=== PATIENT | female | born 1980 | race Caucasian/White ===

== ENCOUNTER → 2019-05-21 11:09 | Outpatient (CLI) | payer OTHER, SELFPAY ==
--- NOTE | ~2019-05-21 | XR_ITS ---
EXAMINATION: XR foot RT min 3V DATE: 05/21/2019 11:25 INDICATION: Open wound at the lateral right forefoot in the region of the fourth and fifth toes TECHNIQUE: Dorsoplantar, two oblique and lateral views of the right foot were obtained. COMPARISON: None. FINDINGS: Alignment is normal. No fracture. Joint spaces are normal. No cortical erosions or periosteal reactio n. Soft tissue swelling about the fifth toe. No soft tissue gas or radiopaque foreign bodies identifi ed. IMPRESSION: 1. No osseous abnormality or radiopaque foreign body. Reviewed, dictated and finalized at location A. ESSMAKER APPRENTICE
== END ==
PROVIDERS: PCP Nurse Practitioner Family; Visit Provider Nurse Practitioner Family
DX: S91.301A Unspecified open wound, right foot, initial encounter (principal); X58.XXXA Exposure to other specified factors, initial encounter
CPT/HCPCS: 73630

== ENCOUNTER 2019-12-05 17:47 | Emergency (ER) | payer OTHER, SELFPAY ==
--- NOTE | ~2019-12-05 | XR_ITS ---
EXAMINATION: XR foot RT min 3V DATE: 12/05/2019 20:21 INDICATION: Right foot wound. TECHNIQUE: 4 views of right foot were obtained. COMPARISON: Right foot radiographs 05/21/2019 FINDINGS: Bone alignment is normal. No fracture. There is mild osteoarthritis of first metatarsophala ngeal joint. There is soft tissue gas in the fifth digit. IMPRESSION: 1. No evidence of osteomyelitis. 2. Soft tissue gas in the fifth digit. Reviewed, dictated and finalized at location A.
[2019-12-05 18:56] VITALS: BP 125/76; PULSE 90; RESP 16; TEMP 37.2; O2SAT 99
[2019-12-05 19:44] VITALS: BP 113/69; PULSE 87; RESP 16; TEMP 36.9; O2SAT 99
--- NOTE | 2019-12-05 19:58 | ED.EXTPRO ---
HPI - Extremity Problem General Chief complaint: Extremity Problem,Nontraumatic Stated complaint: rt foot infection per pt Time Seen by Provider: 12/05/19 19:51 Source: patient Mode of arrival: ambulatory Limitations: no limitations History of Present Illness HPI Narrative: This patient is a 39 year old female who presents for evaluation of a right toe wound. Patidavid reports she developed a wound in the web between 4th and 5th toe. This wound has been present for 1 month. She states she is being evaluated at [place] [facility]. She has been performing daily dressing changes . Her wound has not improved. She denies fever, chills, nausea, vomiting or drainage. Related Data Home Medications Medication Instructions Recorded Confirmed albuterol sulfate INHALATION 12/05/19 alprazolam HS 12/05/19 aripiprazole [Abilify Maintena] mg IM MONTHLY 12/05/19 baclofen mg BID 12/05/19 budesonide-formoterol [Symbicort] INHALATION 12/05/19 [id number] See Rx Instructions .ROUTE 12/05/19 .COMPLEX PRN escitalopram oxalate mg DAILY 12/05/19 fluticasone propionate INTRANASAL DAILY 12/05/19 ocrelizumab [Ocrevus] See Rx Instructions .ROUTE .COMPLEX 12/05/19 zonisamide DAILY 12/05/19 Allergies Allergy/AdvReac Type Severity Reaction Status Date / Time No Known Allergies Allergy Verified 12/05/19 19:02 Review of Systems Review of Systems: All systems reviewed & are unremarkable except as noted in HPI and below Constitutional: Constitutional: Denies chills and Denies fever(s) [facility] Past Medical History Medical History (Updated 12/06/19 @ 00:00 by Jak Jalloh) Multiple sclerosis Seizure Surgical History Surgical History (Updated 12/05/19 @ 19:59 by Tracie Bar MD) History of tonsillectomy Social History Social History (Updated 12/05/19 @ 19:58 by Tracie Bar MD) Smoking status: Never smoker Alcohol intake: current Substance use type: marijuana Gender identity (if verbalized by the patient): Female Exam Const: General: no acute distress and alert Orientation/consciousness: patient oriented x3 Resp: Effort & Inspection: normal respiratory effort Neuro: General: patient oriented x3 and moves all extremities Extrem: Other: right foot with skin sloughing off in web of toe, no surrounding erythema. There is an odor, no drainage Course Vital Signs Vital signs: Vital Signs Temperature 98.9 F 12/05/19 18:56 Pulse Rate 90 12/05/19 18:56 Respiratory Rate 16 12/05/19 18:56 Blood Pressure 125/76 12/05/19 18:56 Pulse Oximetry 99 12/05/19 18:56 Temperature 98 F 12/05/19 21:09 Pulse Rate 87 12/05/19 21:09 Respiratory Rate 16 12/05/19 21:09 Blood Pressure 124/85 12/05/19 21:09 Pulse Oximetry 100 12/05/19 21:09 MDM - Extremity (Nontraumatic) MDM Narrative Medical decision making narrative: ITS Impressions Foot X-Ray 12/05/19 20:24 IMPRESSION: 1. No evidence of osteomyelitis. 2. Soft tissue gas in the fifth digit. Discharge Plan Discharge Clinical Impression: Infection of toe Patient Disposition: Home, Self-Care Condition: Stable Instructions: Antibiotic Form, Puncture Wound (ED) Additional Instructions: Take antibiotics. Apply gel to toe daily. Follow up with your wound clinic. Prescriptions: New clindamycin HCl 300 mg capsule 300 mg PO Q6H 10 Days Qty: 40 RF: 0 No Action Ocrevus 30 mg/mL Solution See Rx Instructions .ROUTE .COMPLEX RF: 0 anrbppkxgg-fqzqrgrspodfx-ynuh 50-325-40 mg tablet See Rx Instructions .ROUTE .COMPLEX PRN (Reason: Migraine Headache) RF: 0 zonisamide 100 mg capsule DAILY RF: 0 alprazolam 0.5 mg tablet HS RF: 0 baclofen 10 mg tablet BID RF: 0 albuterol sulfate 90 mcg/actuation HFA aerosol inhaler INHALATION RF: 0 fluticasone propionate 50 mcg/actuation spray,suspension INTRANASAL SUKH
[2019-12-05] MEDS: SILVER SULFADIAZINE 1% CR 50 GM JAR (*BKC) 1 APPLIC TOPICAL (21:08)
[2019-12-05 21:09] VITALS: BP 124/85; PULSE 87; RESP 16; TEMP 36.6; O2SAT 100
== END 2019-12-05 21:10 | disposition home or self-care (01) ==
PROVIDERS: Emergency Provider General Practice; PCP Nurse Practitioner Family
DX: L08.9 Local infection of the skin and subcutaneous tissue, unspecified (principal); G35 Multiple sclerosis
CPT/HCPCS: 73630; 99283; A9270

== ENCOUNTER 2021-03-06 00:54 | Observation (INO) | payer OTHER, SELFPAY ==
[2021-03-06] VITALS (9 sets, daily range): BP systolic 102–138; BP diastolic 57–86; PULSE 78–95; RESP 16–18; TEMP 36.5–37.1; O2SAT 96–100; BMI 23.8; BMI 23.0
--- NOTE | ~2021-03-06 | XR_ITS ---
EXAMINATION: XR ankle RT min 3V DATE: 03/06/2021 04:03 INDICATION: Right ankle pain. Fall. TECHNIQUE: 4 views of right ankle were obtained. COMPARISON: Right foot radiographs 12/05/2019 FINDINGS: There is a comminuted fracture of distal tibia involving the metaphysis and tibial plafond. The main distal fracture fragment demonstrates near-anatomic alignment. There is an oblique fracture of the distal fibula with medial aspect of the fracture line 3 mm proximal to the level of the tibia l plafond. The distal fracture fragment demonstrates 2 mm lateral displacement and 2 mm posterior dis placement. The talar dome is normal. There is soft tissue swelling about the ankle. IMPRESSION: 1. Comminuted fracture of distal tibia. 2. Oblique fracture of distal fibula. Reviewed, dictated and finalized at location A. ICE DELIVERY ANALYST
--- NOTE | ~2021-03-06 | CT_ITS ---
EXAMINATION: CT tibia/fibula RT wo con DATE: 03/06/2021 06:16 INDICATION: Right tibia fracture. TECHNIQUE: Computed tomography (CT) of the right tibia and fibula was performed without intravenous c ontrast. Automated exposure control and iterative reconstruction technique were employed. The dose-le ngth product was 804.74 mGy-cm. COMPARISON: Right ankle radiographs 03/06/2021 FINDINGS: There is an oblique fracture of distal fibula with medial aspect of the fracture line 3 mm proximal to the level of the tibial plafond. The distal fracture fragment demonstrates 4 mm posterola teral displacement. There is a comminuted fracture of distal tibia involving the metaphysis, tibial p renee, and medial malleolus. The main distal fracture fragment demonstrates near-anatomic alignment. There is mild right knee osteoarthritis. The talar dome is normal. There is soft tissue swelling and subcutaneous hematoma about the ankle. IMPRESSION: 1. Comminuted fracture of distal tibia. 2. Oblique fracture of distal fibula. Reviewed, dictated and finalized at location A. LET DISTRIBUTOR
--- NOTE | 2021-03-06 03:51 | ED.GENADULT ---
HPI - General Adult General Chief complaint: Extremity Injury, Lower <Jose Angel Eugene MD - Last Filed: 03/06/21 07:14> Stated complaint: Right leg pain, tripped, etoh <Jose Angel Eugene MD - Last Filed: 03/06/21 07:14> Time Seen by Provider: 03/06/21 03:47 <Jose Angel Eugene MD - Last Filed: 03/06/21 07:14> History of Present Illness HPI narrative: Patient is a 40-year-old female presents the emergency department with chief complaint of right ankle pain. The patient reports she was going to drinking establishment this evening and twisted her ankle patient to continue drinking and this evening reports that she has pain in her right ankle patient reports been unable to place weight on the ankle reports that it hurts whenever she attempts to move it. Patient denies head injury denies loss of consciousness denies any other injuries. <Jose Angel Eugene MD - Last Filed: 03/06/21 07:14> Related Data Home medications: Home Medications Medication Instructions Recorded Confirmed albuterol sulfate INHALATION 12/05/19 alprazolam HS 12/05/19 aripiprazole [Abilify Maintena] mg IM MONTHLY 12/05/19 baclofen mg BID 12/05/19 budesonide-formoterol [Symbicort] INHALATION 12/05/19 [id number] See Rx Instructions .ROUTE 12/05/19 .COMPLEX PRN escitalopram oxalate mg DAILY 12/05/19 fluticasone propionate INTRANASAL DAILY 12/05/19 ocrelizumab [Ocrevus] See Rx Instructions .ROUTE .COMPLEX 12/05/19 zonisamide DAILY 12/05/19 <Jose Angel Eugene MD - Last Filed: 03/06/21 07:14> Allergies/adverse reactions: Allergies Allergy/AdvReac Type Severity Reaction Status Date / Time No Known Allergies Allergy Verified 03/06/21 04:11 <Jose Angel Eugene MD - Last Filed: 03/06/21 07:14> Review of Systems Review of Systems: A 10 system review of systems was completed on the patient and is negative except for what is stated in the HPI. Nursing and ancillary documentation was reviewed. <Jose Angel Eugene MD - Last Filed: 03/06/21 07:14> [facility] Past Medical History Medical History: Medical History Multiple sclerosis Seizure <Jose Angel Eugene MD - Last Filed: 03/06/21 07:14> Surgical History Surgical History: Surgical History History of tonsillectomy <Jose Angel Eugene MD - Last Filed: 03/06/21 07:14> Social History Social History: Social History Smoking status: Never smoker Alcohol intake: current Substance use type: marijuana Gender identity (if verbalized by the patient): Female <Jose Angel Eugene MD - Last Filed: 03/06/21 07:14> Exam Narrative: GENERAL: Well-appearing, well-nourished, and in no acute distress. HEAD: Normocephalic, atraumatic. EYES: PERRLA and EOMI. ENT: Nares clear, no rhinorrhea or epistaxis. Mucous membranes moist. NECK: Supple. CHEST: Clear to auscultation. No respiratory distress. HEART: Regular rate and rhythm. No murmur heard. Normal peripheral pulses. ABDOMEN: Soft, nontender, nondistended, normal active bowel sounds. EXTREMITIES: Decreased range of motion the right ankle. There is swelling of the right ankle and tenderness to palpation. No edema. SKIN: Warm, dry, no rash. NEURO: No focal deficits. Alert and oriented x3. PSYCH: Normal mood and affect. <Jose Angel Eugene MD - Last Filed: 03/06/21 07:14> Course Course Emergency Course: Ankle x-ray shows a fracture of the distal tibia and also the distal fibula CT recons were obtained of the lower extremity Prior to discharge the patient's mother called and apparently the patient lives in a detention setting and does not make her own decisions and is not supposed to be out drinking unsupervised. Th
--- NOTE | 2021-03-06 03:55 | PC.NURSE ---
XR at bedside
--- NOTE | 2021-03-06 06:52 | PC.NURSE ---
Pt attempting to call for ride at this time.
--- NOTE | 2021-03-06 08:55 | PM.IMHP ---
H&P: HPI History of Present Illness Date/Time: 03/06/21 08:55 HPI: Patient is a 40-year-old female with a past medical history of retirement resident, seizure disorder, multiple sclerosis, who presents the emergency department with chief complaint of right ankle pain. The patient reports she was going to drinking establishment this evening and twisted her ankle; patient to continue drinking and this evening reports that she has pain in her right ankle patient reports been unable to place weight on the ankle reports that it hurts whenever she attempts to move it. Patient denies head injury denies loss of consciousness denies any other injuries. Patient was examined at the bedside. She complains of right leg pain. Patient was examined at the bedside she is hemodynamically stable. Blood pressure 124/73 pulse 78 respiration 18 O2 sat 99% on room air. She reports pain 8/10 of the right lower extremity. There is no other complaint. Patient is not able to take care of herself and readmitting overnight for observation for pain management. Chief Complaint: Right lower extremity injury due to fall. Review of Systems Review of Systems: All systems reviewed & are unremarkable except as noted in HPI and below Constitutional: Constitutional: Reports as per HPI and Denies weakness Eyes: Eyes: Reports as per HPI and Denies blurry vision ENT: Reports as per HPI and Denies epistaxis Cardiovascular: Cardiovascular: Reports as per HPI and Denies lightheadedness Respiratory: Respiratory: Reports as per HPI and Denies dyspnea Gastrointestinal: Gastrointestinal: Reports as per HPI and Denies abdominal pain Genitourinary: Genitourinary: Reports no additional female genitourinary complaints and Reports as per HPI Musculoskeletal: Musculoskeletal: Reports no additional musculoskeletal complaints and Reports as per HPI Comments: Right lower extremity pain. Extremity is splinted. Integumentary/Breasts: Skin/Breast: Reports system reviewed and no additional complaints, except as docu and Reports as per HPI Neurologic: Reports system reviewed and no additional complaints, except as documented and Reports as per HPI Psychiatric: Psychiatric: Reports no additional psychiatric complaints PMFSH Past Medical History Medical History (Updated 03/06/21 @ 09:10 by Elana Vasquez MD) Multiple sclerosis Seizure Surgical History Surgical History History of tonsillectomy Social History Social History Smoking status: Never smoker Alcohol intake: current Substance use type: marijuana Gender identity (if verbalized by the patient): Female Meds Home Medications and Allergies Home Medications Medication Instructions Recorded Confirmed Type albuterol sulfate INHALATION 12/05/19 History alprazolam HS 12/05/19 History aripiprazole [Abilify Maintena] mg IM MONTHLY 12/05/19 History baclofen mg BID 12/05/19 History budesonide-formoterol [Symbicort] INHALATION 12/05/19 History [id number] See Rx Instructions .ROUTE 12/05/19 History .COMPLEX PRN clindamycin HCl 300 mg PO Q6H 10 Days #40 cap 12/05/19 Rx escitalopram oxalate mg DAILY 12/05/19 History fluticasone propionate INTRANASAL DAILY 12/05/19 History ocrelizumab [Ocrevus] See Rx Instructions .ROUTE .COMPLEX 12/05/19 History zonisamide DAILY 12/05/19 History hydrocodone-acetaminophen 1 tablet PO Q6H PRN 3 Days #12 03/06/21 Rx tablet Allergies Allergy/AdvReac Type Severity Reaction Status Date / Time No Known Allergies Allergy Verified 03/06/21 04:11 Vital Signs Vital Signs - 24 hr 03/06/21 00:59 03/06/21 04:10 03/06/21 05:51 Temperature 98.0 F Pulse Rate 84 81 83 Respiratory Rate 17 16 16 Blood Pressure 121/69 138/73 129/73 Pulse Oximetry 100 100 99 03/06/21 07:21 Temperature Pulse Rate 78 Respiratory Rate 18 Blood Pressure 12
[2021-03-06] MEDS: HYDROcodone/acetaminophen (*CRX) 10-325 MG TABLET 1 TAB (10:25)
--- NOTE | 2021-03-06 19:06 | ADMGEN ---
This patient, Meredith Frost, was admitted to Medical Room 342-01. Patient/family oriented to hospital policies and general routines including ID bracelet, bed and alarms, visiting hours, pain management, procedures, bathroom and other care routines, personal items, smoking policy, room service/diet, and visiting hours. Information on how to activate the Rapid Response Team has been discussed. Patient/Family are encouraged to report perceived risks to care and to ask questions if they do not understand what they are told or what they should do.
[2021-03-06] MEDS: ALPRAZolam (*CRX) 0.5 MG TABLET BY MOUTH (20:44)
[2021-03-06] MEDS: BACLOFEN 10 MG TABLET BY MOUTH (20:44)
[2021-03-06] MEDS: HYDROcodone/acetaminophen (*CRX) 5-325 MG TABLET 1 TAB PO (20:44)
--- NOTE | 2021-03-06 21:59 | PCRCNOTE ---
therapist in ED, unable to give. past scheduled time frame, see next available administration.
--- NOTE | 2021-03-06 22:19 | PC.NURSE ---
[facility] pharmacy called to verify medications. Adjustments to current medication list performed.
[2021-03-07] MEDS: HYDROcodone/acetaminophen (*CRX) 5-325 MG TABLET 1 TAB PO ×3 (04:01→12:17)
[2021-03-07 04:02] VITALS: BP 112/63; PULSE 83; RESP 18; TEMP 36.1; O2SAT 98
[2021-03-07] MEDS: ALBUTEROL SULFATE (*SP) AEROSOL 1 PUFF INHALATION ×2 (04:13→20:05)
[2021-03-07] MEDS: ESCITALOPRAM OXALATE 10 MG TABLET 20 MG BY MOUTH (08:26)
[2021-03-07] MEDS: BACLOFEN 10 MG TABLET BY MOUTH ×2 (08:26→17:54)
[2021-03-07] MEDS: FLUTICASONE PROPIONATE 0.05% NA SPR 16 GM BTL (*BKC) 1 SPRAY NASAL (08:27)
[2021-03-07 14:00] VITALS: BP 121/53; PULSE 70; RESP 16; TEMP 36.1; O2SAT 99
--- NOTE | 2021-03-07 16:12 | PM.IMPN ---
Progress Note: A&P Assessment and Plan (1) Pain management: Code(s): R52 - Pain, unspecified Status: Acute Assessment and Plan: 40-year-old lady [facility] resident admitted for fracture of distal right tibia and fibula. Patient admitted for pain management overnight. She will remain over under observation. Patient is not able to take care are of herself. Care coordination consult for placement in the morning. (2) Fracture of distal end of right tibia: Qualifiers: Encounter type: initial encounter Fracture morphology: unspecified fracture morphology Fracture type: closed Qualified Code(s): S82.301A - Unspecified fracture of lower end of right tibia, initial encounter for closed fracture Code(s): S82.301A - Unspecified fracture of lower end of right tibia, initial encounter for closed fracture Status: Acute Assessment and Plan: Management per Ortho. Currently splinted extremity. Patient remains sickly nonweightbearing on the right side. Elevation of the leg. Diffuse the prophylaxis with high-dose aspirin. Patient can follow up with Orthopedic surgery at the office in 10-14 days. (3) Fracture of distal end of right fibula: Qualifiers: Encounter type: initial encounter Fracture morphology: unspecified fracture morphology Fracture type: closed Qualified Code(s): S82.831A - Other fracture of upper and lower end of right fibula, initial encounter for closed fracture Code(s): S82.831A - Other fracture of upper and lower end of right fibula, initial encounter for closed fracture Status: Acute Assessment and Plan: As above. (4) Seizure disorder: Code(s): G40.909 - Epilepsy, unspecified, not intractable, without status epilepticus Status: Acute Assessment and Plan: Continue home medication. No evidence of seizures. (5) Multiple sclerosis: Code(s): G35 - Multiple sclerosis Status: Acute Additional Plan Continue home medications. Subjective Date/time seen: 03/07/21 16:12 S: Patient examined at the bedside. She is in good spirits. She complains of right lower extremity pain. Sleep isok and appetite is good. Review of Systems Review of Systems: All systems reviewed & are unremarkable except as noted in HPI and below Constitutional: Constitutional: Reports as per HPI and Denies weakness Eyes: Eyes: Reports as per HPI and Denies blurry vision ENT: Reports as per HPI and Denies epistaxis Cardiovascular: Cardiovascular: Reports as per HPI, Denies lightheadedness and Denies dyspnea Respiratory: Respiratory: Reports as per HPI and Denies dyspnea Gastrointestinal: Gastrointestinal: Reports as per HPI and Denies abdominal pain Genitourinary: Genitourinary: Reports no additional female genitourinary complaints and Reports as per HPI Musculoskeletal: Musculoskeletal: Reports no additional musculoskeletal complaints and Reports as per HPI Integumentary/Breasts: Skin/Breast: Reports system reviewed and no additional complaints, except as docu and Reports as per HPI Neurologic: Reports system reviewed and no additional complaints, except as documented, Reports as per HPI and Denies weakness Psychiatric: Psychiatric: Reports no additional psychiatric complaints Exam Const: General: no acute distress and uncomfortable Other: Right lower extremity pain 08/26. HENMT: Mouth: Yes moist mucous membranes Eyes: Sclera: sclerae normal Pupils: Equal, round and reactive pupils present Neck: Neck: no JVD Resp: Effort & Inspection: normal respiratory effort Auscultation: clear to auscultation bilaterally Cardio: Rate: regular rate Rhythm: regular rhythm Heart sounds: no gallops, no murmurs and no rubs GI: Inspection: non-distended Neuro: Cranial nerves: Yes Equal, round and reactive pupils present Cognition (Neuro): normal cognition Other: Gait testing deferred due to fracture. Extrem: Other: Right lower extre
--- NOTE | 2021-03-07 16:24 | PM.IMPN ---
Progress Note: A&P Assessment and Plan (1) Pain management: Code(s): R52 - Pain, unspecified Status: Acute Assessment and Plan: 40-year-old lady assisted resident admitted for fracture of distal right tibia and fibula. Patient admitted for pain management overnight. She will remain over under observation. Patient is not able to take care are of herself. Care coordination consult for placement in the morning. Patient will need acute rehab. Hydrocodone acetaminophen increased to 2 tablets every 4-6 hours as needed. (2) Fracture of distal end of right tibia: Qualifiers: Encounter type: initial encounter Fracture morphology: unspecified fracture morphology Fracture type: closed Qualified Code(s): S82.301A - Unspecified fracture of lower end of right tibia, initial encounter for closed fracture Code(s): S82.301A - Unspecified fracture of lower end of right tibia, initial encounter for closed fracture Status: Acute Assessment and Plan: Management per Ortho. Currently splinted extremity. Patient remains sickly nonweightbearing on the right side. Elevation of the leg. Diffuse the prophylaxis with high-dose aspirin. Patient can follow up with Orthopedic surgery at the office in 10-14 days. (3) Fracture of distal end of right fibula: Qualifiers: Encounter type: initial encounter Fracture morphology: unspecified fracture morphology Fracture type: closed Qualified Code(s): S82.831A - Other fracture of upper and lower end of right fibula, initial encounter for closed fracture Code(s): S82.831A - Other fracture of upper and lower end of right fibula, initial encounter for closed fracture Status: Acute Assessment and Plan: As above. (4) Seizure disorder: Code(s): G40.909 - Epilepsy, unspecified, not intractable, without status epilepticus Status: Acute Assessment and Plan: Continue home medication. No evidence of seizures. (5) Multiple sclerosis: Code(s): G35 - Multiple sclerosis Status: Acute (6) Reactive airway disease: Code(s): J45.909 - Unspecified asthma, uncomplicated Status: Acute Assessment and Plan: Continue home medication. Patient previously on Symbicort. Administer albuterol as needed for symptoms. Additional Plan Continue home medications. Subjective Date/time seen: 03/07/21 16:24 S: Patient was examined at the bedside. She reports right leg pain 09/25. She is found to be in very good spirits otherwise. She needs a Symbicort inhaler. Review of Systems Review of Systems: All systems reviewed & are unremarkable except as noted in HPI and below Constitutional: Constitutional: Reports as per HPI and Denies weakness Eyes: Eyes: Reports as per HPI and Denies blurry vision ENT: Reports as per HPI and Denies epistaxis Cardiovascular: Cardiovascular: Reports as per HPI, Denies lightheadedness and Denies dyspnea Respiratory: Respiratory: Reports as per HPI and Denies dyspnea Gastrointestinal: Gastrointestinal: Reports as per HPI and Denies abdominal pain Genitourinary: Genitourinary: Reports no additional female genitourinary complaints and Reports as per HPI Musculoskeletal: Musculoskeletal: Reports no additional musculoskeletal complaints and Reports as per HPI Integumentary/Breasts: Skin/Breast: Reports system reviewed and no additional complaints, except as docu and Reports as per HPI Neurologic: Reports system reviewed and no additional complaints, except as documented, Reports as per HPI and Denies weakness Psychiatric: Psychiatric: Reports no additional psychiatric complaints Exam Const: General: no acute distress and uncomfortable Other: Right lower extremity pain 10. HENMT: Mouth: Yes moist mucous membranes Eyes: Sclera: sclerae normal Pupils: Equal, round and reactive pupils present Neck: Neck: no JVD Resp: Effort & Inspection: normal respiratory effort
[2021-03-07] MEDS: HYDROcodone/acetaminophen (*CRX) 5-325 MG TABLET 2 TAB PO (17:54)
--- NOTE | 2021-03-07 19:20 | PCRCNOTE ---
Window of time for administration has passed. See next scheduled administration.
[2021-03-07 20:00] VITALS: PULSE 80; RESP 16
[2021-03-07] MEDS: FLUTICASONE/SALMETEROL 115-21 MCG INHALER 1 PUFF 2 PUFF INHALATION (20:04)
[2021-03-07 20:43] VITALS: PULSE 85; RESP 18; O2SAT 98
[2021-03-07] MEDS: ALPRAZolam (*CRX) 0.5 MG TABLET BY MOUTH (20:43)
[2021-03-07] MEDS: LACOSAMIDE (*CRX) 200 MG TABLET PO (20:43)
[2021-03-07 21:12] VITALS: BP 106/60; PULSE 85; RESP 18; TEMP 36.8; O2SAT 98
[2021-03-07] MEDS: ZONISAMIDE 100 MG CAPSULE 500 MG PO (21:12)
[2021-03-08] MEDS: HYDROcodone/acetaminophen (*CRX) 5-325 MG TABLET 2 TAB PO ×4 (00:48→21:17)
[2021-03-08 06:05] VITALS: BP 121/72; PULSE 99; RESP 18; TEMP 35.9; O2SAT 99
[2021-03-08] MEDS: FLUTICASONE/SALMETEROL 115-21 MCG INHALER 1 PUFF 2 PUFF INHALATION ×2 (07:58→22:31)
[2021-03-08 08:00] VITALS: PULSE 78; RESP 18; O2SAT 97
[2021-03-08] MEDS: FLUTICASONE PROPIONATE 0.05% NA SPR 16 GM BTL (*BKC) 1 SPRAY NASAL (08:09)
[2021-03-08] MEDS: ESCITALOPRAM OXALATE 10 MG TABLET 20 MG BY MOUTH (08:10)
[2021-03-08] MEDS: BACLOFEN 10 MG TABLET BY MOUTH ×2 (08:11→17:02)
[2021-03-08] MEDS: LACOSAMIDE (*CRX) 200 MG TABLET PO ×2 (08:12→21:16)
--- NOTE | 2021-03-08 14:14 | PM.IMPN ---
Progress Note: A&P Assessment and Plan (1) Pain management: Code(s): R52 - Pain, unspecified Status: Acute Assessment and Plan: 40-year-old lady residential resident admitted for fracture of distal right tibia and fibula. Patient admitted for pain management overnight. She will remain over under observation. Patient is not able to take care are of herself. Care coordination consult for placement in the morning. Patient will need acute rehab. Hydrocodone acetaminophen increased to 2 tablets every 4-6 hours as needed. (2) Fracture of distal end of right tibia: Qualifiers: Encounter type: initial encounter Fracture morphology: unspecified fracture morphology Fracture type: closed Qualified Code(s): S82.301A - Unspecified fracture of lower end of right tibia, initial encounter for closed fracture Code(s): S82.301A - Unspecified fracture of lower end of right tibia, initial encounter for closed fracture Status: Acute Assessment and Plan: Management per Ortho. Currently splinted extremity. Patient remains sickly nonweightbearing on the right side. Elevation of the leg. Diffuse the prophylaxis with high-dose aspirin. Patient can follow up with Orthopedic surgery at the office in 10-14 days. (3) Fracture of distal end of right fibula: Qualifiers: Encounter type: initial encounter Fracture morphology: unspecified fracture morphology Fracture type: closed Qualified Code(s): S82.831A - Other fracture of upper and lower end of right fibula, initial encounter for closed fracture Code(s): S82.831A - Other fracture of upper and lower end of right fibula, initial encounter for closed fracture Status: Acute Assessment and Plan: As above. (4) Seizure disorder: Code(s): G40.909 - Epilepsy, unspecified, not intractable, without status epilepticus Status: Acute Assessment and Plan: Continue home medication. No evidence of seizures. (5) Multiple sclerosis: Code(s): G35 - Multiple sclerosis Status: Acute (6) Reactive airway disease: Code(s): J45.909 - Unspecified asthma, uncomplicated Status: Acute Assessment and Plan: Continue home medication. Patient previously on Symbicort. Administer albuterol as needed for symptoms. Additional Plan Continue home medications. Subjective Date/time seen: 03/08/21 14:14 S: Patient is examined at the bedside. She reports pain 09/25. Review of Systems Review of Systems: All systems reviewed & are unremarkable except as noted in HPI and below Constitutional: Constitutional: Reports as per HPI and Denies weakness Eyes: Eyes: Reports as per HPI and Denies blurry vision ENT: Reports as per HPI and Denies epistaxis Cardiovascular: Cardiovascular: Reports as per HPI, Denies lightheadedness and Denies dyspnea Respiratory: Respiratory: Reports as per HPI and Denies dyspnea Gastrointestinal: Gastrointestinal: Reports as per HPI and Denies abdominal pain Genitourinary: Genitourinary: Reports no additional female genitourinary complaints and Reports as per HPI Musculoskeletal: Musculoskeletal: Reports no additional musculoskeletal complaints and Reports as per HPI Integumentary/Breasts: Skin/Breast: Reports system reviewed and no additional complaints, except as docu and Reports as per HPI Neurologic: Reports system reviewed and no additional complaints, except as documented, Reports as per HPI and Denies weakness Psychiatric: Psychiatric: Reports no additional psychiatric complaints Exam Const: General: no acute distress and uncomfortable Other: Right lower extremity pain 7/10. HENMT: Mouth: Yes moist mucous membranes Eyes: Sclera: sclerae normal Pupils: Equal, round and reactive pupils present Neck: Neck: no JVD Resp: Effort & Inspection: normal respiratory effort Auscultation: clear to auscultation bilaterally Cardio: Rate: regular rate Rhythm: regular
[2021-03-08 14:27] VITALS: BP 111/66; PULSE 91; RESP 18; TEMP 36.1; O2SAT 100
[2021-03-08] MEDS: ALPRAZolam (*CRX) 0.5 MG TABLET BY MOUTH (21:16)
[2021-03-08] MEDS: ZONISAMIDE 100 MG CAPSULE 500 MG PO (21:16)
[2021-03-08 21:17] VITALS: PULSE 94; RESP 18; O2SAT 100
[2021-03-08 22:00] VITALS: BP 113/62; PULSE 94; RESP 18; TEMP 36.3; O2SAT 100
[2021-03-08] MEDS: ALBUTEROL SULFATE (*SP) AEROSOL 1 PUFF INHALATION (22:34)
[2021-03-09] MEDS: HYDROcodone/acetaminophen (*CRX) 5-325 MG TABLET 2 TAB PO ×3 (05:01→14:26)
[2021-03-09 06:00] VITALS: BP 110/70; PULSE 89; RESP 16; TEMP 36.2; O2SAT 98
[2021-03-09] MEDS: FLUTICASONE PROPIONATE 0.05% NA SPR 16 GM BTL (*BKC) 1 SPRAY NASAL (08:41)
[2021-03-09] MEDS: ESCITALOPRAM OXALATE 10 MG TABLET 20 MG BY MOUTH (08:43)
[2021-03-09] MEDS: LACOSAMIDE (*CRX) 200 MG TABLET PO (08:43)
[2021-03-09] MEDS: BACLOFEN 10 MG TABLET BY MOUTH ×2 (08:43→17:47)
[2021-03-09] MEDS: ALBUTEROL SULFATE (*SP) AEROSOL 1 PUFF INHALATION (11:07)
[2021-03-09] MEDS: FLUTICASONE/SALMETEROL 115-21 MCG INHALER 1 PUFF 2 PUFF INHALATION (11:07)
--- NOTE | 2021-03-09 11:20 | PM.IMPN ---
Progress Note: A&P Assessment and Plan (1) Pain management: Code(s): R52 - Pain, unspecified Status: Acute Assessment and Plan: 40-year-old lady halfway resident admitted for fracture of distal right tibia and fibula. Patient admitted for pain management overnight. She will remain over under observation until acute rehabilitation placement is approved. Patient is not able to take care of herself. Care coordination consult for placement in the morning. Patient will need acute rehab. Hydrocodone acetaminophen increased to 2 tablets every 4-6 hours as needed with improvement of the management.. (2) Fracture of distal end of right tibia: Qualifiers: Encounter type: initial encounter Fracture morphology: unspecified fracture morphology Fracture type: closed Qualified Code(s): S82.301A - Unspecified fracture of lower end of right tibia, initial encounter for closed fracture Code(s): S82.301A - Unspecified fracture of lower end of right tibia, initial encounter for closed fracture Status: Acute Assessment and Plan: Management per Ortho. Currently splinted extremity. Patient remains sickly nonweightbearing on the right side. Elevation of the leg. Diffuse the prophylaxis with high-dose aspirin. Patient can follow up with Orthopedic surgery at the office in 10-14 days after discharge. (3) Fracture of distal end of right fibula: Qualifiers: Encounter type: initial encounter Fracture morphology: unspecified fracture morphology Fracture type: closed Qualified Code(s): S82.831A - Other fracture of upper and lower end of right fibula, initial encounter for closed fracture Code(s): S82.831A - Other fracture of upper and lower end of right fibula, initial encounter for closed fracture Status: Acute Assessment and Plan: As above. (4) Seizure disorder: Code(s): G40.909 - Epilepsy, unspecified, not intractable, without status epilepticus Status: Acute Assessment and Plan: Continue home medication. No evidence of seizures. (5) Multiple sclerosis: Code(s): G35 - Multiple sclerosis Status: Acute (6) Reactive airway disease: Code(s): J45.909 - Unspecified asthma, uncomplicated Status: Acute Assessment and Plan: Continue home medication. Patient previously on Symbicort. Administer albuterol as needed for symptoms. Additional Plan Constipation. Colace today. Subjective Date/time seen: 03/09/21 11:20 S: Patient was examined at the bedside. She reports right lower extremity pain; pain Management is improving with adjustment of pain medications. Patient reports constipation and is asking for Colace. Review of Systems Review of Systems: All systems reviewed & are unremarkable except as noted in HPI and below Constitutional: Constitutional: Reports as per HPI and Denies weakness Eyes: Eyes: Reports as per HPI and Denies blurry vision ENT: Reports as per HPI and Denies epistaxis Cardiovascular: Cardiovascular: Reports as per HPI, Denies lightheadedness and Denies dyspnea Respiratory: Respiratory: Reports as per HPI and Denies dyspnea Gastrointestinal: Gastrointestinal: Reports as per HPI and Denies abdominal pain Genitourinary: Genitourinary: Reports no additional female genitourinary complaints and Reports as per HPI Musculoskeletal: Musculoskeletal: Reports no additional musculoskeletal complaints and Reports as per HPI Integumentary/Breasts: Skin/Breast: Reports system reviewed and no additional complaints, except as docu and Reports as per HPI Neurologic: Reports system reviewed and no additional complaints, except as documented, Reports as per HPI and Denies weakness Psychiatric: Psychiatric: Reports no additional psychiatric complaints Exam Const: General: no acute distress and uncomfortable Other: Right lower extremity pain 5/10. HENMT: Mouth: Yes moist mucous membranes Eyes: Scler
[2021-03-09 14:00] VITALS: BP 115/63; PULSE 98; RESP 18; TEMP 36.2; O2SAT 99
[2021-03-09] MEDS: DOCUSATE SODIUM 100 MG CAPSULE PO (14:26)
--- NOTE | 2021-03-09 15:20 | PM.DS ---
DS: Admitting Diagnosis Discharge Date 03/09/2021 Admitting Diagnosis Fracture of tibia and fibula. DS: Discharge Diagnosis Discharge Diagnosis (1) Pain management: Code(s): R52 - Pain, unspecified Status: Acute Assessment and Plan: 40-year-old lady skilled nursing resident admitted for fracture of distal right tibia and fibula. Patient admitted for pain management overnight. She will remain over under observation until acute rehabilitation placement is approved. Patient is not able to take care of herself. Care coordination consult for placement in the morning. Patient will need acute rehab. Hydrocodone acetaminophen increased to 2 tablets every 4-6 hours as needed with improvement of the management.. (2) Fracture of distal end of right tibia: Qualifiers: Encounter type: initial encounter Fracture morphology: unspecified fracture morphology Fracture type: closed Qualified Code(s): S82.301A - Unspecified fracture of lower end of right tibia, initial encounter for closed fracture Code(s): S82.301A - Unspecified fracture of lower end of right tibia, initial encounter for closed fracture Status: Acute Assessment and Plan: Management per Ortho. Currently splinted extremity. Patient remains sickly nonweightbearing on the right side. Elevation of the leg. Diffuse the prophylaxis with high-dose aspirin. Patient can follow up with Orthopedic surgery at the office in 10-14 days after discharge. (3) Fracture of distal end of right fibula: Qualifiers: Encounter type: initial encounter Fracture morphology: unspecified fracture morphology Fracture type: closed Qualified Code(s): S82.831A - Other fracture of upper and lower end of right fibula, initial encounter for closed fracture Code(s): S82.831A - Other fracture of upper and lower end of right fibula, initial encounter for closed fracture Status: Acute Assessment and Plan: As above. (4) Seizure disorder: Code(s): G40.909 - Epilepsy, unspecified, not intractable, without status epilepticus Status: Acute Assessment and Plan: Continue home medication. No evidence of seizures. (5) Multiple sclerosis: Code(s): G35 - Multiple sclerosis Status: Acute (6) Reactive airway disease: Code(s): J45.909 - Unspecified asthma, uncomplicated Status: Acute Assessment and Plan: Continue home medication. Patient previously on Symbicort. Administer albuterol as needed for symptoms. DS: Summary Hospital Course Reason for hospitalization: Right lower extremity injury due to fall. Hospital Course: Please refer to admission H& P. Briefly,patient is a 40-year-old female with a past medical history of skilled nursing resident, seizure disorder, multiple sclerosis, who presents the emergency department with chief complaint of right ankle pain. The patient reports she was going to drinking establishment this evening and twisted her ankle; patient to continue drinking and this evening reports that she has pain in her right ankle patient reports been unable to place weight on the ankle reports that it hurts whenever she attempts to move it. Patient denies head injury denies loss of consciousness denies any other injuries. Patient was examined at the bedside. She complains of right leg pain. Patient was examined at the bedside she is hemodynamically stable. Blood pressure 124/73 pulse 78 respiration 18 O2 sat 99% on room air. She reports pain 8/10 of the right lower extremity. There is no other complaint. Patient is not able to take care of herself and readmitting overnight for observation for pain management. Chief Complaint: Right lower extremity injury due to fall. For hospital course, please refer to discharge diagnosis. Status at Discharge Cognitive/behavioral status at discharge: At baseline. Functional status at discharge: wheelchair bound Overall status at discharge: patient is not
[2021-03-09 15:35] LABS: EDCOVIDSCREEN Negative (Negative)
--- NOTE | 2021-04-04 08:59 | PM.CNOR ---
Assessment and Plan Additional Plan Right ankle min displaced distal tibia fx with ramírez B fibular component. 'Both are min displaced and can be rx'ed closed. DVT proph per medicine strict NWB F/U with Ortho 10 days to 2 weeks s/p D/C Will likely need SNF for d/c This is being documented on 04/04/21 due to technical difficulties with the original consult not being included in the EMR. All the information is correct to the best of my recollection. History of Present Illness HPI Consult date: 04/04/21 Chief complaint: Right Lower Leg Fracture Narrative: 40 yo female who has MS. She sustained a right distal tib fx and distal fibula fx which is minimally to non displaced. She was splinted in the ED. [facility] Past Medical History Medical History (Updated 03/10/21 @ 14:53 by Gurjit Dominique NP) Multiple sclerosis Seizure Surgical History Surgical History History of tonsillectomy Family History Family History (Updated 03/06/21 @ 20:56 by Lala Perez RN) Mother Asthma Father Heart problem Social History Social History Smoking status: Never smoker Alcohol intake: current Drinks per week: 2 Substance use: current Substance use type: marijuana Gender identity (if verbalized by the patient): Female Spiritual care concerns: No Meds Home Medications and Allergies Home Medications Medication Instructions Recorded Confirmed Type Abilify Maintena 300 mg IM MONTHLY 12/05/19 03/07/21 History albuterol sulfate 2 puff INHALATION QID 12/05/19 03/07/21 History baclofen 10 mg PO BID 12/05/19 03/07/21 History budesonide-formoterol [Symbicort] 2 puff INHALATION BID 12/05/19 03/06/21 History escitalopram oxalate 20 mg DAILY 12/05/19 03/06/21 History fluticasone propionate 1 spray INTRANASAL DAILY 12/05/19 03/06/21 History zonisamide 500 mg PO HS 12/05/19 03/06/21 History ibuprofen 800 mg PO BID PRN 03/06/21 03/06/21 History docusate sodium 100 mg PO Q12HR #30 cap 03/09/21 Rx alprazolam 0.5 mg tablet 0.5 mg PO HS #30 tablet 03/10/21 Rx hydrocodone 5 mg-acetaminophen 325 2 tablet PO Q6H PRN #120 tablet 03/10/21 Rx mg tablet lacosamide 200 mg tablet 200 mg PO Q12H #60 tablet 03/10/21 Rx Allergies Allergy/AdvReac Type Severity Reaction Status Date / Time No Known Allergies Allergy Verified 03/06/21 21:03 Exam Extrem: Other: Right ankle Well padded posterior U splint Nv intact with good cap refill and sens Pain is min in the splint Calves NT bilat Results Labs Labs: All other labs normal.
== END 2021-03-09 18:21 ==
LOC: ANHED 09:05 → ANH3MEDSUR 13:04 → ANH3MED 16:50
PROVIDERS: Admitting Provider Internal Medicine; Emergency Provider Emergency Medicine; PCP Nurse Practitioner Family; Visit Provider Internal Medicine
DX: S82.301A Unspecified fracture of lower end of right tibia, initial encounter for closed fracture (principal); S82.431A Displaced oblique fracture of shaft of right fibula, initial encounter for closed fracture; G40.909 Epilepsy, unspecified, not intractable, without status epilepticus; G35 Multiple sclerosis; J45.909 Unspecified asthma, uncomplicated; Z20.822 Contact with and (suspected) exposure to COVID-19; W01.0XXA Fall on same level from slipping, tripping and stumbling without subsequent striking against object, initial encounter
CPT/HCPCS: 29505; 73610; 73700; 87426; 94640; 97110; 97116; 97161; 99285; A9270; C9803; G0378

== ENCOUNTER 2021-08-23 10:30 | Outpatient (RCR) | payer OTHER, SELFPAY ==
--- NOTE | 2021-06-30 14:01 | PTOPEVAL ---
PHYSICAL THERAPY INITIAL EVALUATION. Thank you for referring Meredith Frost to [facility].? The patient is scheduled to be seen for therapy? 1x/week for 4weeks. Please review, sign, date and return this plan of care TONI. I agree with and certify that the following plan of care is medically necessary. Referring Physician Date Attending Provider: Alex Burt MD *PT Outpatient Evaluation Start: 06/30/21 12:31 Evaluation Information Diagnosis R ankle fracture Onset 03/04/21 Additional Evaluation Detail Pts caser shoe parts Regla was in the waiting room, she went to sit in the care during the evaluation. Subjective Information Pt states she fell on 03/04/21 Query Text:As Reported By Patient/ and broke her ankle during a Family fall when she was under the influence of alcohol. She was in a fiber glass cast and is now in a walking boot. Pt states she is on disability due to her diagnosis of MS and frequently seizures. Pt does not think she has had a fall since Feb. Pain Assessment Pain Score Pain Score Mild Pain: Douglas Cantu Interventions Used Interventions Used By Clinicians Education,Rest Lower Extremity Range of Motion Gross Lower Extremity Range of Motion R ankle plantarflexion, Comments inversion, and eversion are WNL Ankle/Foot Range of Motion Right Ankle Dorsiflexion With Knee Extension -50 active Ankle Dorsiflexion With Knee Extension -30 passive Ankle Dorsiflexion With Knee Flexed -50 active Ankle Dorsiflexion With Knee Flexed -20 passive Lower Extremity Muscle Strength Testing Gross Lower Extremity Strength R ankle dorsiflexion 1/5 B hip flexion 4+/5 B knee ext 3+/5 B knee flexion 4/5 Palpation Assessment Palpation just prominal to medial malleolus, anterior talocrural joint Gait Assessment Orthotic/Prosthetic Devices Right Lower Extremity Orthosis Orthotic/Prosthetic Type R walking boot Gait Pattern Trendelenburg Gait Other Gait Observations Increased lateral trunk lean bilaterally, B LE external rotations R > L, R LE circumduction Safety Assessment Factors Affecting Safety Decreased Balance,Decreased Body Awareness,Decreased E
--- NOTE | 2021-07-27 09:23 | PCPTNOTE ---
Patient called & cancelled scheduled re-evaluation this date due and gave no reason. She is reschedule for tomorrow.
--- NOTE | 2021-08-02 16:21 | PTOPEVAL ---
PHYSICAL THERAPY PROGRESS REPORT. Thank you for referring Meredith Frost to [facility].? The patient is scheduled to be seen for therapy?1 x/week for 4 weeks. Please review, sign, date and return this plan of care TONI. I agree with and certify that the following plan of care is medically necessary. Referring Physician Date Attending Provider: Kenzie Coello Evaluation Information Diagnosis R ankle fracture Onset 03/04/21 Subjective Information Pt states she has been doing Query Text:As Reported By Patient/ her exercises and stretches at Family home, she states she is not sure if they are working. She states her foot still does not move on its own. She is still waiting for her AFO to be completed. Pt declines pain but states she takes a lot of pain med though . She states she had a fall last week as she was walking outside without her boot on. Pain Assessment Pain Score Pain Score 0: Self Report Lower Extremity Range of Motion Gross Lower Extremity Range of Motion R ankle plantarflexion, Comments inversion, and eversion are WNL Ankle/Foot Range of Motion Right Ankle Dorsiflexion With Knee Extension -45 active Ankle Dorsiflexion With Knee Extension -20 passive Ankle Dorsiflexion With Knee Flexed -40 active Ankle Dorsiflexion With Knee Flexed -15 passive Lower Extremity Muscle Strength Testing Gross Lower Extremity Strength R ankle dorsiflexion 1/5 Tino hip flexion 4+/5 R knee ext 4/5 L knee extension 4+/5 Tino knee flexion 4/5 Muscle Length Testing Gastrocnemius Length (L) Moderate Tightness Palpation Assessment Palpation none Safety Assessment Factors Affecting Safety Decreased Balance,Decreased Body Awareness,Decreased Endurance,Decreased Mobility, Decreased Motor Planning PT Clinical Summary Meredith presents to therapy today for her progress report following 4 visits of skilled therapy to treat her R fibular fracture and subsequent foot drop. Today she continues to demonstrate no ankle dorsiflexion motion, she does have some toe extension. She
--- NOTE | 2021-08-23 14:09 | PCPTNOTE ---
Attending Provider: Alex Burt MD Patient:Meredith Frost Date of :1980 PHYSICAL THERAPY DISCHARGE SUMMARY. Meredith reports walking for 1.5 miles yesterday without an increase in pain, tripping, or any other functional limitations. She reports wearing her AFO a majority of the day. She does not have any red spots from wear. Patient?s initial visit was on 06/30/2021 12:30 and she had a total of 7 visits. Meredith presents to therapy today with her employment case manager. She has received her AFO and reports good compliance with wearing it. Today she demonstrates good functional mobility with very minor gait deviations. She demonstrate greater balance on the RLE compared to the LLE. Meredith states she does not have any functional limitations at this time. She states she would like to possibly get a therapy order for balance in the future. She is to be discharged from skilled physical therapy services at this time with instruction to continue with her HEP and to follow up with her referring provider if she has any new concerns. Thank you for referring this patient to [facility]. Please review, sign, date and return this discharge summary TONI. I have been updated about the patient's current status and I agree with discharge from the above service at this time. Referring Physician Date
== END 2021-08-24 10:15 | disposition home or self-care (01) ==
LOC: ANHPT 10:30
PROVIDERS: PCP Nurse Practitioner Family; Visit Provider Orthopaedic Surgery
DX: S82.831A Other fracture of upper and lower end of right fibula, initial encounter for closed fracture (principal); M21.371 Foot drop, right foot
CPT/HCPCS: 97110; 97112; 97116; 97140; 97161

== ENCOUNTER 2021-11-01 08:38 | Outpatient (CLI) | payer OTHER, SELFPAY ==
--- NOTE | ~2021-11-01 | MM_ITS ---
EXAMINATION: MM screening loraine BI w [place] HISTORY: Screening mammogram TECHNIQUE: Craniocaudal and mediolateral oblique 3-D tomosynthesis images were obtained and synthetic 2-D images were generated. CAD analysis was submitted and interpreted. COMPARISON: No prior mammogram is available for comparison at this institution. BREAST PARENCHYMAL COMPOSITION: The breasts are extremely dense, which lowers the sensitivity of mamm ography. FINDINGS: There are numerous calcifications scattered throughout the breast stroma including circular , oval and punctate microcalcifications. No suspicious linear or branching microcalcifications are no mayra. There is no evidence of suspicious mass, calcification, or architectural distortion to suggest m alignancy in either breast. IMPRESSION: 1. Numerous bilateral benign calcifications. No mammographic evidence of malignancy. 2. Recommend routine screening mammography in one year. BI-RADS Category 2: Benign finding(s). Reviewed, dictated and finalized at location A. IMPRESSION: 1. Numerous bilateral benign calcifications. No mammographic evidence of malign jesus. 2. Recommend routine screening mammography in one year. BI-RADS Category 2: Benign finding(s).
== END 2021-11-01 08:39 | disposition home or self-care (01) ==
LOC: ANHIMG 08:39
PROVIDERS: PCP Nurse Practitioner Family; Visit Provider Nurse Practitioner Family
DX: Z12.31 Encounter for screening mammogram for malignant neoplasm of breast (principal)
CPT/HCPCS: 77063; 77067

== ENCOUNTER 2021-11-02 08:30 | Outpatient (RCR) | payer OTHER, SELFPAY ==
--- NOTE | 2021-09-26 09:54 | PTOPEVAL ---
PHYSICAL THERAPY EVALUATION AND PLAN OF CARE Thank you for referring Meredith Frost to [facility].? The patient is scheduled to be seen for therapy? 1x/week for 6 weeks. Please review, sign, date and return this plan of care TONI. I agree with and certify that the following plan of care is medically necessary. Referring Physician Date Attending Provider: Markus Cabral Diagnosis Right foot drop, Multiple sclerosis Additional Evaluation Detail Marylin, sales support manager, is here for evaluation. chart review: date of injury was 03/06/21 and treated with walking boot and she used a walker for ambulation; she participate in physical therapy to address rehabilitation and ROM and strength of right ankle and was discharged on 08/23/21. Subjective Information Meredith is today with balance Query Text:As Reported By Patient/ deficits and right foot drop. Family States that her right foot drop is a result of an accident. She does have an AFO that she has had for about a month. She has had 2 falls within the last 6 months. States that if she falls she feels like she can get up on her own. Meredith lives in an apartment by herself. She has an elevator. states that her pain is well controlled. When asked about how her MS affects her, she states it doesn't. when I asked Marylin , she states that it is really just the balance deficits. Pain Score Pain Score 0: Self Report Lower Extremity Muscle Strength Testing Hip Strength Right Hip Flexion Strength 4+ Good + Hip Extension Strength 3- Fair - Hip Abduction Strength 3- Fair - Knee Strength Right Knee Flexion Strength 5 Normal Knee Extension Strength 4+ Good + Ankle Strength Right Ankle Dorsiflexion Strength 3+ Fair + Ankle Plantarflexion Strength 4 Good Ankle Eversion Strength 3 Fair Ankle Inversion Strength 4 Good Ankle Strength Comments toe walking: able to take 3- 4steps on toes demonstrating good heel height
--- NOTE | 2021-10-05 17:30 | PCPTNOTE ---
Patient treatment and note was performed by student PODODERMATOLOGIST with supervision and elevation by licensed PODODERMATOLOGIST, Raeann Guthrie.
--- NOTE | 2021-11-02 10:01 | PCPTNOTE ---
PHYSICAL THERAPY DISCHARGE NOTE Attending Provider: Markus Cabral Patient:Meredith Frost Date of :1980 Meredith has been participating in physical therapy to address balance and frequent falls. She has participated in 6 visits of physical therapy. She does not wear her AFO to therapy session and does ambulate with a normal gait pattern. She demonstrates Patel Balance Assessment score of 48/56 (improved from 45/56). She demonstrate 5xSIT <>STAND 13seconds and she demonstrate gait speed of 3.65ft/second. She reports she is doing well at home and reports she was able to do the stairs at home, which was her main goal. She reports she feels ready to be discharged from physical therapy and considering the scores of standardized testing, discharge from PT with home exercise program is appropriate. Thank you for referring this patient to [facility]. Please review, sign, date and return this discharge summary TONI. I have been updated about the patient's current status and I agree with discharge from the above service at this time. Referring Physician Date
== END 2021-11-03 09:22 | disposition home or self-care (01) ==
LOC: ANHPT 08:30
PROVIDERS: PCP Nurse Practitioner Family
DX: G35 Multiple sclerosis (principal); M21.371 Foot drop, right foot; R26.9 Unspecified abnormalities of gait and mobility
CPT/HCPCS: 97110; 97112; 97162; 97530

== ENCOUNTER 2021-12-07 12:00 | Emergency (ER) | payer OTHER, SELFPAY ==
[2021-12-07 12:13] VITALS: BP 123/74; PULSE 87; RESP 16; TEMP 36.9; O2SAT 98
--- NOTE | 2021-12-07 12:23 | ED.GENADULT ---
HPI - General Adult General Chief complaint: Ear Stated complaint: ear pain Source: patient Mode of arrival: ambulatory Limitations: no limitations History of Present Illness HPI narrative: Patient presents for evaluation of right sided ear pain for the last 3 days. She believes she got water in her ear and symptoms started thereafter. She denies any tinnitus or hearing loss. No drainage from the ear. No sore throat or cough. She believes she has an ear infection. No additional complaints or concerns. Related Data Home Medications Medication Instructions Recorded Confirmed albuterol sulfate 90 mcg/actuation 2 puff inhalation QID 12/05/19 06/15/21 aerosol inhaler aripiprazole 300 mg suspension, 300 mg IM MONTHLY 12/05/19 06/15/21 extended rel. intramuscular syringe (Lata Nazario) baclofen 10 mg tablet 10 mg PO BID 12/05/19 06/15/21 budesonide-formoterol HFA 160 2 puff inhalation BID 12/05/19 06/15/21 mcg-4.5 mcg/actuation aerosol inhaler (Symbicort) escitalopram oxalate 20 mg tablet 20 mg DAILY 12/05/19 06/15/21 fluticasone propionate 50 1 spray intranasal DAILY 12/05/19 06/15/21 mcg/actuation nasal spray,suspension zonisamide 100 mg capsule 500 mg PO HS 12/05/19 06/15/21 ibuprofen 800 mg tablet 800 mg PO BID PRN Headache 03/06/21 06/15/21 benzoyl peroxide 10 % topical 1 applic topical DAILY 04/25/21 06/15/21 cleanser erythromycin with ethanol 2 % 1 applic topical BID 04/25/21 06/15/21 topical solution mirabegron 50 mg tablet,extended 50 mg PO DAILY 04/25/21 06/15/21 release 24 hr onabotulinumtoxinA 100 unit 200 unit IM ONCE 04/25/21 06/15/21 solution for injection (Botox) tretinoin 0.05 % topical cream 1 applic topical QHS 04/25/21 06/15/21 Allergies Allergy/AdvReac Type Severity Reaction Status Date / Time No Known Allergies Allergy Verified 06/15/21 10:06 Review of Systems Review of Systems: CONSTITUTIONAL: Denies fever, chills, or sweats. EYES: Denies visual changes, redness, or discharge. ENT: Reports right-sided ear pain. Denies rhinorrhea, congestion, sore throat CARDIOVASCULAR: Denies chest pain, palpitations, or edema. RESPIRATORY: Denies cough or dyspnea. GASTROINTESTINAL: Denies abdominal pain, nausea, vomiting, or diarrhea. GENITOURINARY: Denies dysuria or hematuria. SKIN: Denies rash or itching. MUSCULOSKELETAL: Denies back pain, joint pain, or myalgia. NEUROLOGIC: Denies headache, numbness, dizziness, or weakness. PSYCHIATRIC: Denies anxiety or depression. [facility] Past Medical History Medical History Foot drop, right Multiple sclerosis Pressure ulcer of right foot, stage 2 Seizure Surgical History Surgical History History of tonsillectomy Family History Family History Mother Asthma Father Heart problem Social History Social History Alcohol intake: current Drinks per week: 2 Substance use: current Substance use type: marijuana Gender identity (if verbalized by the patient): Female Spiritual care concerns: No Exam Narrative: GENERAL: Well-appearing, well-nourished, and in no acute distress. HEAD: Normocephalic, atraumatic. EYES: PERRLA and EOMI. ENT: Nares clear, no rhinorrhea or epistaxis. Mucous membranes moist. Oropharynx without tonsillar hypertrophy exudate or other lesions. Right TM erythema. There is purulent material behind right TM. TM intact NECK: Supple. No adenopathy or masses. No carotid bruits or JVD CHEST: Clear to auscultation. No respiratory distress. No wheezes rales or rhonchi HEART: Regular rate and rhythm. No murmur heard. Normal peripheral pulses. ABDOMEN: Soft, nontender, nondistended, normal active bowel sounds. EXTREMITIES: Normal range of motion. No edema. SKIN:
== END 2021-12-07 12:32 | disposition home or self-care (01) ==
PROVIDERS: Emergency Provider Nurse Practitioner; PCP Nurse Practitioner Family
DX: H66.91 Otitis media, unspecified, right ear (principal); F12.90 Cannabis use, unspecified, uncomplicated; G35 Multiple sclerosis; G40.909 Epilepsy, unspecified, not intractable, without status epilepticus
CPT/HCPCS: 99213; G0463

== ENCOUNTER 2022-02-14 16:48 | Inpatient (IN) | payer OTHER, SELFPAY ==
[2022-02-14] VITALS (20 sets, daily range): BP systolic 101–125; BP diastolic 55–83; PULSE 74–113; RESP 14–33; TEMP 36.7–37; O2SAT 96–100
--- NOTE | ~2022-02-14 | CT_ITS ---
EXAMINATION: CT brain wo con DATE: 02/14/2022 17:34 INDICATION: AMS . TECHNIQUE: Computed tomography (CT) of the head was performed without intravenous contrast. The mA wa s adjusted according to patient size. Iterative reconstruction technique was employed. The dose-lengt h product was 983.67 mGy-cm. COMPARISON: 03/01/2015. FINDINGS: Motion limited images that required repeat imaging. No acute intracranial hemorrhage or extra-axial fluid collection. No hydrocephalus, mass, or herniation. No acute ischemic infarct. Unremarkable dural venous sinus attenuation. No acute osseous abnormality. Right mastoid effusion, the remaining aerated spaces are clear. Old bilateral basal ganglia lacunar infarcts versus encephalomalacia from demyelinating lesions. Mild atrophy, greater than expected for age. Moderate chronic white matter change, greater than expected for age, worse since the prior study and consistent with prior historical information that includes m ultiple sclerosis. IMPRESSION: No acute intracranial process. Chronic findings as detailed above. Reviewed, dictated and finalized at location K. TION SAFETY OFFICER
--- NOTE | ~2022-02-14 | CT_ITS ---
EXAMINATION: CT abdomen pelvis w con DATE: 02/14/2022 19:40 INDICATION: pelvic pain, discharge, leukocytosis TECHNIQUE: Computed tomography (CT) of the abdomen and pelvis was performed with 100 mL Omnipaque-350 intravenous contrast. Automated exposure control and iterative reconstruction technique were employe d. The dose-length product was 243.42 mGy-cm. COMPARISON: 03/01/2015. FINDINGS: Lower thorax: Mild reticulonodular opacities in the lungs. Small hiatal hernia. Liver: Enlarged. Biliary/Gallbladder: Cholelithiasis. No bile duct dilation. Pancreas: No mass or duct dilation. Spleen: Normal. Adrenals:No mass. Kidneys: No mass, stone, or hydronephrosis. GI tract: No small or large bowel dilation. Mild wall edema involving the sigmoid colon and rectum. N ormal appendix. Mesentery/Peritoneum: No ascites, mass, or free air. Retroperitoneum: No mass. Pelvis: Mild bladder wall thickening and mild surrounding inflammatory change. Fat stranding present in the lower pelvis at the level of the cervix and rectum. 2.6 cm simple left ovarian cyst. Small vol ume free pelvic fluid, within physiologic range. Soft Tissues: Soft tissues and body wall unremarkable. Bones: No acute osseous finding. IMPRESSION: Mild bladder wall thickening and inflammation, correlate with urinalysis. Mild sigmoid and rectal wal l edema may reflect a component of colitis/proctitis. Inflammatory changes in the deep pelvic possibl y related to the bladder, sigmoid/rectum, or other pelvic infectious/inflammatory process. Reviewed, dictated and finalized at location K. EW CANTOR IMPRESSION: Mild bladder wall thickening and inflammation, correlate with urinalysis. Mild sigmoid and rectal wall edema may reflect a component of colitis/proctitis. Inf lammatory changes in the deep pelvic possibly related to the bladder, sigmoid/r ectum, or other pelvic infectious/inflammatory process.
--- NOTE | ~2022-02-14 | XR_ITS ---
EXAMINATION: XR chest 2V Exam Date/Time: 02/14/2022 19:25 SPECIALIZED LANGUAGE INSTRUCTOR HISTORY: leukocytosis Comparison: 09/10/2018 and 05/09/2006. RESULT: Lines, tubes, and devices: None. Lungs and pleura: Stable chronic diffuse reticulonodular opacities. Cardiomediastinal silhouette: Stable. Other: No acute osseous or upper abdominal finding. IMPRESSION: Pulmonary opacities may represent chronic bronchiolitis, as can be seen with atypical infection, asth ma, aspiration, and small airways disease. Reviewed, dictated and finalized at location K. IALIZED LANGUAGE INSTRUCTOR IMPRESSION: Pulmonary opacities may represent chronic bronchiolitis, as can be seen with at ypical infection, asthma, aspiration, and small airways disease.
--- NOTE | ~2022-02-14 | US_ITS ---
EXAMINATION: US pelvic complete DATE: 02/15/2022 12:32 INDICATION: Pelvic inflammatory disease Comparison:CT dated 02/14/2022 TECHNIQUE: Multiple transabdominal sonographic images of the pelvis performed. FINDINGS: The uterus measures 8.8 x 4.8 x 5.8 cm. The endometrial complex measures 4.5 mm. The right ovary measures 3.1 x 3.4 x 3.1 cm and the left ovary measures 3 x 1.9 x 3.3 cm. There is a right ovarian cyst measuring 2.5 x 2 x 1.6 cm. There are small follicles in each ovary. Normal dopple r signal in both ovaries. There is free fluid in the pelvis. There are no abnormal masses seen on either side. IMPRESSION: 1. Simple right ovarian cyst measuring 2.5 cm. Reviewed, dictated and finalized at location A. Y OPERATOR
--- NOTE | 2022-02-14 17:05 | ECG_ITS ---
Measurements Intervals [place] Rate: 90 P: 59 DC: 171 QRS: 67 QRSD: 88 T: 63 QT: 374 QTc: 458 Interpretive Statements SINUS RHYTHM BORDERLINE T WAVE ABNORMALITY- ANTERIOR LEADS BORDERLINE ECG NO PREVIOUS ECG AVAILABLE FOR COMPARISON Electronically Signed On 02-14-2022 22:59:39 S3B MULTI SENSOR OPERATOR by Yo Fishman D.O.
[2022-02-14] MEDS: SODIUM CHLORIDE 0.9% IV 1,000 ML 999 ML IV CONT (17:17)
[2022-02-14 17:30] LABS: Basophils Absolute Auto 0.1 K/mm3 (0.0-0.1); Basophils Percent Auto 0.4 % (0.2-1.2); Eosinophils Absolute Auto 0.1 K/mm3 (0-0.3); Eosinophils Percent Auto 0.3 % (0-4.4); Hematocrit 36.4 % (37.0-47.0); Hemoglobin 11.4 g/dL (12.0-15.0); Immature Granulocyte Absolute 0.22 K/mm3 (0.00-0.031); Immature Granulocyte Percent A 0.8 % (0-0.5); Lymphocytes Absolute Auto 0.93 K/mm3 (0.9-3.2); Lymphocytes Percent Auto 3.2 % (18.3-44.2); Mean Corpuscular HGB Conc 31.3 g/dl (32-36); Mean Corpuscular Hemoglobin 21.9 pg (26-34); Mean Corpuscular Volume 69.9 fl (80-100); Mean Platelet Volume 9.1 fl (7.4-10.4); Monocytes Absolute Auto 0.5 K/mm3 (0.1-0.6); Monocytes Percent Auto 1.8 % (2.6-8.5); Neutrophils Absolute Auto 27.2 K/mm3 (1.3-6.7); Neutrophils Percent Auto 93.5 % (45.5-73.1); Platelet Count Result 512 k/mm3 (150-375); Red Blood Count 5.21 M/mm3 (4.2-5.4); Red Cell Distribution Width 19.6 % (11.5-14.5); White Blood Count 29.1 K/mm3 (4.5-10.0)
[2022-02-14 17:34] LABS: Appearance Urine Clear (Clear); Bilirubin Urine Negative (Negative); Blood Urine Negative (Negative); Color Urine Yellow (Yellow); Glucose Urine UA Negative (Negative); Ketones Urine 2+ mg/dL (Negative); Leukocyte Esterase Ur Negative LEU/UL (Negative); Nitrate Urine Negative (Negative); Protein Urine 1+ mg/dL (Negative); Specific Grav Ur >= 1.030 (1.001-1.035); Urobilinogen Urine 0.2 mg/dL (<2.0)
[2022-02-14 17:37] LABS: Mucus Urine Heavy /lpf; Squamous Epithelial Cell Urine Occasional /hpf (Few); WBC Urine 0-3 /hpf
[2022-02-14 17:41] LABS: Prothrombin Time 12.8 Seconds (11.1-14.7)
[2022-02-14 17:42] LABS: Partial Thromboplastin Time 22.8 SECONDS (22.3-36.8)
[2022-02-14 17:43] LABS: Ethanol < 10 mg/dL (<10)
[2022-02-14] MEDS: LORazepam INJ (*CRX) 2 MG/ML VIAL 1 MG IV PUSH (17:44)
[2022-02-14 17:51] LABS: Alanine Aminotransferase 17 U/L (6-35); Albumin Level 4.5 g/dL (3.5-5.1); Alkaline Phosphatase 111 U/L (38-126); Anion Gap 14 mmol/L (8-16); Aspartate Amino Transferase 22 U/L (14-36); Bilirubin,Total 0.3 mg/dL (0.2-1.3); Blood Urea Nitrogen 21 mg/dL (7-17); Calcium 9.2 mg/dL (8.4-10.2); Carbon Dioxide 19 mmol/L (22-30); Chloride 106 mmol/L (98-107); Estimated CRCL calculation 89 ml/min; Estimated Glomerular Filt Rate > 60; Glucose 215 mg/dL (65-110); Potassium 4.1 mmol/L (3.4-5.0); Sodium 139 mmol/L (137-145)
[2022-02-14 17:52] LABS: Amphetamine Screen Urine Negative (Negative); Barbiturate Screen Urine Negative (Negative); Benzodiazepines Screen Urine Negative (Negative); Cannabinoid Screen Urine Positive (Negative); Cocaine Screen Urine Negative (Negative); Methadone Screen Urine Negative (Negative); Opiate Screen Urine Negative (Negative); Phencyclidine Screen Urine Negative (Negative)
--- NOTE | 2022-02-14 18:01 | ED.SEIZURE ---
HPI - Seizure General Chief Complaint: Seizure <May Mcgovern PA-C - Last Filed: 02/17/22 18:20> Stated Complaint: seizure <May Mcgovern PA-C - Last Filed: 02/17/22 18:20> Time Seen by Provider: 02/14/22 17:04 <May Mcgovern PA-C - Last Filed: 02/17/22 18:20> Source: EMS <May Mcgovern PA-C - Last Filed: 02/17/22 18:20> Mode of arrival: EMS <May Mcgovern PA-C - Last Filed: 02/17/22 18:20> Limitations: altered mental status <May Mcgovern PA-C - Last Filed: 02/17/22 18:20> History of Present Illness HPI Narrative: This is a 41 year old female that presents to the ER for altered mental status. Reportedly she had witnessed seizure at her subsidized housing unit. They report she started to stare off and then had some shaking movements. On EMS arrival she stared off for a couple of seconds and since has been talking nonsensical. Unable to obtain any history from the patient. Reportedly she does have history of seizures and multiple sclerosis. <May Mcgovern PA-C - Last Filed: 02/17/22 18:20> Seizure History: Yes <May Mcgovern PA-C - Last Filed: 02/17/22 18:20> Related Data Home Medications: Home Medications Medication Instructions Recorded Confirmed baclofen 10 mg tablet 10 mg PO BID 12/05/19 02/15/22 escitalopram oxalate 20 mg tablet 20 mg PO DAILY 12/05/19 02/15/22 fluticasone propionate 50 1 spray intranasal BID-TID 12/05/19 02/15/22 mcg/actuation nasal spray,suspension zonisamide 100 mg capsule 500 mg PO HS 12/05/19 02/15/22 ibuprofen 800 mg tablet 800 mg PO Q6H PRN Headache 03/06/21 02/15/22 tretinoin 0.05 % topical cream 1 applic topical QHS 04/25/21 02/15/22 clonazepam 0.5 mg tablet 0.5 mg PO HS 12/07/21 02/15/22 albuterol sulfate 90 mcg/actuation 2 puff inhalation Q4H PRN 02/15/22 02/15/22 aerosol inhaler (Ventolin HFA) Shortness Of Breath betamethasone valerate 0.1 % 1 applic topical DAILY 02/15/22 02/15/22 topical cream budesonide-formoterol HFA 160 2 puff inhalation BID 02/15/22 02/15/22 mcg-4.5 mcg/actuation aerosol inhaler (Symbicort) clotrimazole 1 % topical cream 1 applic topical BID 02/15/22 02/15/22 folic acid 1 mg tablet 1 mg PO DAILY 02/15/22 02/15/22 lacosamide 200 mg tablet (Vimpat) 100 mg PO BID 02/15/22 02/15/22 <May Mcgovern PA-C - Last Filed: 02/17/22 18:20> Allergies/Adverse Reactions: Allergies Allergy/AdvReac Type Severity Reaction Status Date / Time No Known Allergies Allergy Verified 06/15/21 10:06 <May Mcgovern PA-C - Last Filed: 02/17/22 18:20> Review of Systems Review of Systems: ROS unobtainable: Yes unobtainable due to mental status <May Mcgovern PA-C - Last Filed: 02/17/22 18:20> [facility] Past Medical History Medical History: Medical History Foot drop, right Multiple sclerosis Pressure ulcer of right foot, stage 2 Seizure <May Mcgovern PA-C - Last Filed: 02/17/22 18:20> Surgical History Surgical History: Surgical History History of tonsillectomy <May Mcgovern PA-C - Last Filed: 02/17/22 18:20> Family History Family History: Family History Mother Asthma Father Heart problem <May Mcgovern PA-C - Last Filed: 02/17/22 18:20> Social History Social History: Social History (Updated 02/15/22 @ 13:57 by YUSUF Aldana) Social History: Patient currently lives by herself and states that her mother is her surrogate and she lives in [place]. She wishes to be a full code and she has no pets currently. Smoking status: Never smoker Additional smoking assessment comments: marijuana Alcohol intake: current Drinks per week: 2 Substance use: current Substance use type: marijuana Lack of Transportation: No Lack of Food: Often True Current Housing
[2022-02-14 18:05] LABS: Add Urine Microscopic? YES
[2022-02-14] MEDS: DOXYCYCLINE 100 MG/NS 100 ML 100 MG/100 ML BAG IVPB (20:12)
[2022-02-14 20:41] LABS: Hemoglobin A1C 5.4 % (<5.7)
[2022-02-14] MEDS: metroNIDAZOLE 500 MG/ISO 100ML 500 MG/100 ML BAG 100 MG IVPB (21:21)
[2022-02-14 22:33] LABS: SARS-CoV-2 RNA PCR Negative
--- NOTE | 2022-02-14 23:56 | PC.NURSE ---
This patient, Meredith Frost, was admitted to [facility] Surg Room 317-01. Patient/family oriented to hospital policies and general routines including ID bracelet, bed and alarms, visiting hours, pain management, procedures, bathroom and other care routines, personal items, smoking policy, room service/diet, and visiting hours. Information on how to activate the Rapid Response Team has been discussed. Patient/Family are encouraged to report perceived risks to care and to ask questions if they do not understand what they are told or what they should do. arrived at [id number] report received from Horacio Patel RN
[2022-02-15 00:04] VITALS: BMI 22.3
[2022-02-15 00:07] VITALS: O2SAT 100
--- NOTE | 2022-02-15 00:13 | PC.NURSE ---
called pt mother Serg to help verify medication, pt states doesn't know medication.
[2022-02-15] MEDS: LACTATED RINGERS 1,000 ML 125 ML IV CONT ×2 (00:14→17:18)
[2022-02-15 01:18] VITALS: BP 99/58; PULSE 82; RESP 15; TEMP 36.4; O2SAT 99
[2022-02-15 06:00] VITALS: PULSE 92; RESP 16; TEMP 36.6; O2SAT 99
--- NOTE | 2022-02-15 06:55 | PC.NURSE ---
call placed to [facility] to attempt to confirm medication, pt unable to tell this nurse what medication she takes, called mother, no call back yet, [facility] [place] opens at 8am today. Message left for pharmacy to call back.
--- NOTE | 2022-02-15 12:36 | P.CONIM_ITS ---
Assessment and Plan Assessment and plan (1) Acute pelvic inflammatory disease (PID): Code(s): N73.0 - Acute parametritis and pelvic cellulitis Status: Acute Assessment and Plan: * CT of the abdomen pelvis showed inflammatory changes in the deep pelvic related to possibly bladder, sigmoid rectum, pelvic infection * Pelvic ultrasound showed simple right ovarian cyst * OB on the case * Trichomonas was positive per exam * [place] [id number] * Patient was started on ceftriaxone, doxycycline, Flagyl * Trend labs * Adjust therapy accordingly (2) Trichomonas contact: Code(s): Z20.2 - Contact with and (suspected) exposure to infections with a predominantly sexual mode of transmission Status: Acute Assessment and Plan: * see above (3) Multiple sclerosis: Code(s): G35 - Multiple sclerosis Status: Acute Assessment and Plan: * Stable * Continue home medications (4) Seizure: Code(s): R56.9 - Unspecified convulsions Status: Acute Assessment and Plan: * Noted to have a seizure prior to admission * Continue Vimpat 100mg PO BID * Consult neurology * Ativan 1 mg IV on board for breakthrough seizure * Consider prolactin at time of seizure * Seizure precautions (5) Colitis: Code(s): K52.9 - Noninfective gastroenteritis and colitis, unspecified Status: Acute Assessment and Plan: * Abdominal CT indicates possible colitis * Currently on ceftriaxone/doxycycline/[place] * [place] [address] * Consider GI consult if indicated * Low fiber diet * Trend labs (6) Sepsis: Code(s): A41.9 - Sepsis, unspecified organism Status: Acute Assessment and Plan: * Patient meets SIRS criteria with tachycardia of 113, tachypnea of 33, blood pressure of 99/58 * Source of infection being possible PID, pneumonia, colitis * [place] [address] * Lactic was 1 * Patient received 2 L of fluid at in the ED * IV fluids currently running at 125 an hour * Continue antibiotic therapy * Blood cultures pending * Pelvic cultures pending * Trend labs (7) Anxiety and depression: Code(s): F41.9 - Anxiety disorder, unspecified; F32.A - Depression, unspecified Status: Acute Assessment and Plan: * Continue home medications * Currently on Abilify, clonazepam, and Lexapro * Appears stable at this time (8) Acute metabolic encephalopathy: Code(s): G93.41 - Metabolic encephalopathy Status: Acute Assessment and Plan: * Patient presented with altered mental status * Probably related to acute seizure activity * Head CT shows no intracranial process * Neurology on board * Seizure medication resumed * Trend mental status (9) Pneumonia: Code(s): J18.9 - Pneumonia, unspecified organism Status: Acute Assessment and Plan: * Chest x-ray indicated pneumonia with pulmonary opacities * Antibiotics on board * Neb treatments on board * Supplemental oxygen if needed * Trend respiratory status (10) Asthma: Code(s): J45.909 - Unspecified asthma, uncomplicated Status: Acute Assessment and Plan: * Continue home inhalers * Does not appea
--- NOTE | 2022-02-15 12:36 | PM.IMCN ---
Assessment and Plan Assessment and plan (1) Acute pelvic inflammatory disease (PID): Code(s): N73.0 - Acute parametritis and pelvic cellulitis Status: Acute Assessment and Plan: CT of the abdomen pelvis showed inflammatory changes in the deep pelvic related to possibly bladder, sigmoid rectum, pelvic infection Pelvic ultrasound showed simple right ovarian cyst OB on the case Trichomonas [place] [address] Patient was started on ceftriaxone, doxycycline, Flagyl Trend labs Adjust therapy accordingly (2) Trichomonas contact: Code(s): Z20.2 - Contact with and (suspected) exposure to infections with a predominantly sexual mode of transmission Status: Acute Assessment and Plan: see above (3) Multiple sclerosis: Code(s): G35 - Multiple sclerosis Status: Acute Assessment and Plan: Stable Continue home medications (4) Seizure: Code(s): R56.9 - Unspecified convulsions Status: Acute Assessment and Plan: Noted to have a seizure prior to admission Continue Vimpat 100mg PO BID Consult neurology Ativan 1 mg IV on board for breakthrough seizure Consider prolactin at time of seizure Seizure precautions (5) Colitis: Code(s): K52.9 - Noninfective gastroenteritis and colitis, unspecified Status: Acute Assessment and Plan: Abdominal CT indicates possible colitis Currently on ceftriaxone/[place] [address] Consider GI consult if indicated Low fiber diet Trend labs (6) Sepsis: Code(s): A41.9 - Sepsis, unspecified organism Status: Acute Assessment and Plan: Patient meets SIRS criteria with tachycardia of 113, tachypnea of 33, blood pressure of 99/58 Source of infection being possible PID, pneumonia, [place] [address] Lactic was 1 Patient received 2 L of fluid at in the ED IV fluids currently running at 125 an hour Continue antibiotic therapy Blood cultures pending Pelvic cultures pending Trend labs (7) Anxiety and depression: Code(s): F41.9 - Anxiety disorder, unspecified; F32.A - Depression, unspecified Status: Acute Assessment and Plan: Continue home medications Currently on Abilify, clonazepam, and Lexapro Appears stable at this time (8) Acute metabolic encephalopathy: Code(s): G93.41 - Metabolic encephalopathy Status: Acute Assessment and Plan: Patient presented with altered mental status Probably related to acute seizure activity Head CT shows no intracranial process Neurology on board Seizure medication resumed Trend mental status (9) Pneumonia: Code(s): J18.9 - Pneumonia, unspecified organism Status: Acute Assessment and Plan: Chest x-ray indicated pneumonia with pulmonary opacities Antibiotics on board Neb treatments on board Supplemental oxygen if needed Trend respiratory status (10) Asthma: Code(s): J45.909 - Unspecified asthma, uncomplicated Status: Acute Assessment and Plan: Continue home inhalers Does not appear to be in acute exacerbation Supplemental oxygen if indicated Trend respiratory status Stable at this time Plan Thank for allowing us to participate on case call with any questions HPI Data of Consult Consult date: 02/16/22 Requesting Physician: Ryne Sanchez MD Primary Care Provider: Lauren Saba, FURNACE PROCESS SUPERVISOR- Consult Narrative Reason for consult: Medical management Narrative: Meredith Frost is a 41 year old female with past medical history of multiple sclerosis, seizures who presented to the ED with complaints of altered mental status. [facility] [place]. The caregiver reported that she would stare off and then had some sh
[2022-02-15 13:08] LABS: Lipase 83 U/L (23-300)
[2022-02-15] MEDS: metroNIDAZOLE 250 MG TABLET 500 MG PO ×2 (13:25→21:01)
[2022-02-15] MEDS: DOXYCYCLINE HYCLATE 100 MG TABLET PO ×2 (13:25→21:02)
--- NOTE | 2022-02-15 13:54 | PM.IMHP ---
H&P: HPI History of Present Illness Date/Time: 02/15/22 13:54 41-year-old 1 para 1001 female presents to the emergency room with seizure activity. She states that she has not been consistent with her seizure medication and does have a physician that she follows up for her seizure disorder on a regular basis. Also relates that she has a known history of Trichomonas for which she was going to be seeing Infectious Disease later this week, though it does not appear she has been consistent with the medication prescribed for the Trichomonas either. Prior to admission she denied any change in bowel or urine habits, and is sexually active but has not had any pain or any other discharge other than the Trichomonas discussed above. No abdominal or pelvic pain or any other symptomatology other than a vaginal discharge. Chief Complaint: 1. Vaginal discharge 2. Leukocytosis Review of Systems Review of Systems: All systems reviewed & are unremarkable except as noted in HPI and below PMFSH Past Medical History Medical History Foot drop, right Multiple sclerosis Pressure ulcer of right foot, stage 2 Seizure Surgical History Surgical History History of tonsillectomy Family History Family History Mother Asthma Father Heart problem Social History Social History Social History: Patient currently lives by herself and states that her mother is her surrogate and she lives in [place]. She wishes to be a full code and she has no pets currently. Smoking status: Never smoker Additional smoking assessment comments: marijuana Alcohol intake: current Drinks per week: 2 Substance use: current Substance use type: marijuana Lack of Transportation: No Lack of Food: Often True Current Housing: I Have Housing Concerned About Future Housing: Decline to Answer Difficulty Paying Gas/Electric Bills: Decline to Answer Difficulty Paying for Meds: Decline to Answer Currently Unemployed: Decline to Answer Education: Decline to Answer Difficulty w/ Childcare or Family Care: Decline to Answer Gender identity (if verbalized by the patient): Female Sexual Orientation (if Verbalized by the Patient): Straight or Heterosexual Spiritual care concerns: No Agree to blood products: Yes Meds Home Medications and Allergies Home Medications Medication Instructions Recorded Confirmed Type aripiprazole 300 mg suspension, 300 mg IM MONTHLY 12/05/19 02/15/22 History extended rel. intramuscular syringe (Lata Nazario) baclofen 10 mg tablet 10 mg PO BID 12/05/19 02/15/22 History escitalopram oxalate 20 mg tablet 20 mg PO DAILY 12/05/19 02/15/22 History fluticasone propionate 50 1 spray intranasal BID-TID 12/05/19 02/15/22 History mcg/actuation nasal spray,suspension zonisamide 100 mg capsule 500 mg PO HS 12/05/19 02/15/22 History ibuprofen 800 mg tablet 800 mg PO Q6H PRN Headache 03/06/21 02/15/22 History docusate sodium 100 mg capsule 100 mg PO Q12HR #30 caps 03/09/21 02/15/22 Rx tretinoin 0.05 % topical cream 1 applic topical QHS 04/25/21 02/15/22 History amoxicillin 875 mg-potassium 1 tablet PO Q12H #20 tabs 12/07/21 02/15/22 Rx clavulanate 125 mg tablet clonazepam 0.5 mg tablet 0.5 mg PO HS 12/07/21 02/15/22 History albuterol sulfate 90 mcg/actuation 2 puff inhalation Q4H PRN 02/15/22 02/15/22 History aerosol inhaler (Ventolin HFA) Shortness Of Breath betamethasone valerate 0.1 % 1 applic topical DAILY 02/15/22 02/15/22 History topical cream budesonide-formoterol HFA 160 2 puff inhalation BID 02/15/22 02/15/22 History mcg-4.5 mcg/actuation aerosol inhaler (Symbicort) clotrimazole 1 % topical cream 1 applic topical BID 02/15/22 02/15/22 History folic acid 1 mg table
[2022-02-15 14:00] VITALS: BP 115/55; PULSE 77; RESP 16; TEMP 37.1; O2SAT 99
[2022-02-15] MEDS: BACLOFEN 10 MG TABLET PO (17:19)
[2022-02-15] MEDS: MICONAZOLE NITRATE 2% CREAM 30 GM TUBE 1 APPLIC TOPICAL (17:19)
[2022-02-15] MEDS: LACOSAMIDE (*CRX) 100 MG TABLET PO (17:19)
[2022-02-15] MEDS: DOCUSATE SODIUM 100 MG CAPSULE PO (21:01)
[2022-02-15] MEDS: clonazePAM (*CRX) 0.5 MG TABLET PO (21:02)
[2022-02-15] MEDS: FLUTICASONE PROPIONATE 0.05% NA SPR 16 GM BTL (*BKC) 1 SPRAY NASAL (21:03)
[2022-02-15] MEDS: ZONISAMIDE 100 MG CAPSULE 500 MG PO (21:04)
[2022-02-15 22:00] VITALS: BP 115/50; PULSE 92; RESP 16; TEMP 36.9; O2SAT 100
[2022-02-16] MEDS: LACTATED RINGERS 1,000 ML 125 ML IV CONT ×3 (03:10→20:57)
[2022-02-16 06:00] VITALS: BP 109/50; PULSE 75; RESP 16; TEMP 36.9; O2SAT 99
[2022-02-16] MEDS: metroNIDAZOLE 250 MG TABLET 500 MG PO ×3 (06:08→21:00)
[2022-02-16 06:47] LABS: Hematocrit 31.3 % (37.0-47.0); Hemoglobin 9.5 g/dL (12.0-15.0); Mean Corpuscular HGB Conc 30.4 g/dl (32-36); Mean Corpuscular Hemoglobin 21.6 pg (26-34); Mean Corpuscular Volume 71.3 fl (80-100); Mean Platelet Volume 8.9 fl (7.4-10.4); Platelet Count Result 392 k/mm3 (150-375); Red Blood Count 4.39 M/mm3 (4.2-5.4); Red Cell Distribution Width 19.5 % (11.5-14.5)
[2022-02-16 07:56] VITALS: BP 114/57; PULSE 84; RESP 18; TEMP 36.9; O2SAT 100
[2022-02-16] MEDS: FOLIC ACID 1 MG TABLET PO (09:21)
[2022-02-16] MEDS: DOCUSATE SODIUM 100 MG CAPSULE PO ×2 (09:21→20:59)
[2022-02-16] MEDS: ESCITALOPRAM OXALATE 10 MG TABLET 20 MG PO (09:21)
[2022-02-16] MEDS: DOXYCYCLINE HYCLATE 100 MG TABLET PO ×2 (09:21→20:59)
[2022-02-16] MEDS: BACLOFEN 10 MG TABLET PO ×2 (09:22→17:09)
[2022-02-16] MEDS: FLUTICASONE PROPIONATE 0.05% NA SPR 16 GM BTL (*BKC) 1 SPRAY NASAL ×2 (09:29→20:58)
[2022-02-16] MEDS: MICONAZOLE NITRATE 2% CREAM 30 GM TUBE 1 APPLIC TOPICAL ×2 (09:29→17:09)
[2022-02-16] MEDS: TRIAMCINOLONE ACET 0.1% CREAM 15 GM TUBE 1 APPLIC TOPICAL (09:29)
[2022-02-16] MEDS: LACOSAMIDE (*CRX) 100 MG TABLET PO ×2 (09:29→17:09)
[2022-02-16] MEDS: FLUTICASONE/SALMETEROL 115-21 MCG INHALER 1 PUFF 2 PUFF INHALATION ×2 (09:33→22:14)
[2022-02-16 09:35] VITALS: O2SAT 97
--- NOTE | 2022-02-16 09:40 | PM.GYNPNOP ---
VBA PROGRAMMER - A/P Time Spent With Patient Time: Total time spent is greater than 50% in coordination of care (as documented) at patient's floor/unit and/or counseling patient: Time with patient: less than 15 minutes VBA PROGRAMMER- PN:Niesha Post-Op Subjective Date/time seen: 02/16/22 09:40 Patient feeling well this morning. Diet tolerated, no symptoms. VSS afebrile Exam unchanged White blood cell count [id number] Plan: 1. Continue IV antibiotics for another 24hour 2. Will discharge home tomorrow on oral Flagyl and doxycycline 3. Will follow her up in the office in 2 weeks VBA PROGRAMMER - PN: Obj Data Vital Signs Vital Signs: Vital Signs - 24 hr 02/15/22 14:00 02/15/22 22:00 02/16/22 06:00 Temperature 98.7 F 98.4 F 98.4 F Pulse Rate 77 92 75 Respiratory Rate 16 16 16 Blood Pressure 115/55 L 115/50 L 109/50 L Pulse Oximetry 99 100 99 Oxygen Delivery 02/16/22 07:56 02/16/22 09:35 Temperature 98.5 F Pulse Rate 84 Respiratory Rate 18 Blood Pressure 114/57 L Pulse Oximetry 100 97 Oxygen Delivery Room Air Intake/Output Intake/Output: Intake & Output 02/13/22 02/14/22 02/15/22 02/16/22 23:59 23:59 23:59 23:59 Intake Total 1250 1979 2790 Output Total 300 0 Balance 950 1979 2790 Meds/Results Medications: Active Medications Generic Name Dose Route Start Last Admin Trade Name Freq PRN Reason Stop Dose Admin Acetaminophen 1,000 mg 02/15/22 12:56 Acetaminophen 500 Mg Tablet PO Q6H PRN Mild Pain (1-3) or Fever Hydrocodone Bitart/Acetaminophen 1 tab 02/15/22 12:56 Hydrocodone/Acetaminophen (*Crx) 5-325 Mg Tablet PO Q6H PRN Pain Rated 4-10 Albuterol 2 puff 02/15/22 14:02 Albuterol Sulfate (*Sp) Aerosol 1 Puff INHALATION Q4H PRN Shortness Of Breath Baclofen 10 mg 02/15/22 17:00 02/16/22 09:22 Baclofen 10 Mg Tablet PO 10 mg BID GERMÁN Administration Clonazepam 0.5 mg 02/15/22 21:00 02/15/22 21:02 Clonazepam (*Crx) 0.5 Mg Tablet PO 0.5 mg HS GERMÁN Administration Docusate Sodium 100 mg 02/15/22 21:00 02/16/22 09:21 Docusate Sodium 100 Mg Capsule PO 100 mg Q12HR GERMÁN Administration Doxycycline Hyclate 100 mg 02/15/22 12:40 02/16/22 09:21 Doxycycline Hyclate 100 Mg Tablet PO 100 mg Q12HR GERMÁN Administration Escitalopram Oxalate 20 mg 02/16/22 09:00 02/16/22 09:21 Escitalopram Oxalate 10 Mg Tablet PO 20 mg DAILY GERMÁN Administration Fluticasone Propionate 1 spray 02/15/22 21:00 02/16/22 09:29 Fluticasone Propionate 0.05% Na Spr 16 Gm Btl (*Bkc) NASAL 1 spray Q12HR GERMÁN Administration Folic Acid 1 mg 02/16/22 09:00 02/16/22 09:21 Folic Acid 1 Mg Tablet PO 1 mg DAILY GERMÁN Administration Lactated Ringer's 1,000 mls @ 125 mls/hr 02/14/22 20:55 02/16/22 09:25 Lr - Lactated Ringers Iv IV CONT 125 mls/hr .Q8H GERMÁN Administration Ceftriaxone Sodium/Dextrose 1 gm in 50 mls @ 100 mls/hr 02/15/22 21:00 02/15/22 21:00 Rocephin 1 Gm/D5w 50 Ml IVPB 100 mls/hr HS GERMÁN Administration Ibuprofen 800 mg 02/15/22 14:02 Ibuprofen 400 Mg Tablet PO Q6H PRN Headache Lacosamide 100 mg 02/15/22 17:00 02/16/22 09:29 Lacosamide (*Crx) 100 Mg Tablet PO 100 mg BID GERMÁN Administration Metronidazole 500 mg 02/15/22 14:00 02/16/22 06:08 Metronidazole 250 Mg Tablet PO 500 mg Q8HR GERMÁN Administration Miconazole Nitrate 1 applic 02/15/22 17:00 02/16/22 09:29 Miconazole Nitrate 2% Cream 30 Gm Tube TOPICAL 03/17/22 16:59 1 applic BID GERMÁN Administration Miscellaneous Information 0 each 02/15/22 00:01 Tretinoin Cream Is Nonformulary - Can Patient Bring From Home? XX 03/17/22 00:00 [facility] Non-Formulary Medication 1 applic 02/15/22 21:00 Tretinoin TOPICAL 03/17/22 20:59 [facility] Fluticasone/Salmeterol 2 puff 02/15/22 20:00 02/16/22 09:33 Fluticasone/Salmeterol 115-21 Mcg Inhaler 1 Puff INHALATION 2 puff Q12HRT [facility] Administra
--- NOTE | 2022-02-16 10:30 | PM.IMPN ---
Progress Note: A&P Assessment and Plan (1) Acute pelvic inflammatory disease (PID): Code(s): N73.0 - Acute parametritis and pelvic cellulitis Status: Acute Assessment and Plan: CT of the abdomen pelvis showed inflammatory changes in the deep pelvic related to possibly bladder, sigmoid rectum, pelvic infection Pelvic ultrasound showed simple right ovarian cyst OB on the case Trichomonas was positive per exam WBCs currently [id number] Continue on ceftriaxone, doxycycline, Flagyl Trend labs Adjust therapy accordingly (2) Trichomonas contact: Code(s): Z20.2 - Contact with and (suspected) exposure to infections with a predominantly sexual mode of transmission Status: Acute Assessment and Plan: see above (3) Multiple sclerosis: Code(s): G35 - Multiple sclerosis Status: Acute Assessment and Plan: Stable Continue home medications (4) Seizure: Code(s): R56.9 - Unspecified convulsions Status: Acute Assessment and Plan: Noted to have a seizure prior to admission Continue Vimpat 100mg PO BID Ativan 1 mg IV on board for breakthrough seizure Consider prolactin at time of seizure Seizure precautions (5) Colitis: Code(s): K52.9 - Noninfective gastroenteritis and colitis, unspecified Status: Acute Assessment and Plan: Abdominal CT indicates possible colitis Currently on ceftriaxone/doxycycline/Flagyl WBCs trending down currently [id number] Consider GI consult if indicated Low fiber diet Trend labs (6) Sepsis: Code(s): A41.9 - Sepsis, unspecified organism Status: Acute Assessment and Plan: Patient meets SIRS criteria with tachycardia of 113, tachypnea of 33, blood pressure of 99/58 Source of infection being possible PID, pneumonia, [place] [address] Lactic was 1 Patient received 2 L of fluid at in the ED IV fluids currently running at 125 an hour Continue antibiotic therapy Blood cultures pending Pelvic cultures pending Trend labs (7) Anxiety and depression: Code(s): F41.9 - Anxiety disorder, unspecified; F32.A - Depression, unspecified Status: Acute Assessment and Plan: Continue home medications Currently on Abilify, clonazepam, and Lexapro Appears stable at this time (8) Acute metabolic encephalopathy: Code(s): G93.41 - Metabolic encephalopathy Status: Acute Assessment and Plan: Patient presented with altered mental status Probably related to acute seizure activity Head CT shows no intracranial process Neurology on board Seizure medication resumed Trend mental status (9) Pneumonia: Code(s): J18.9 - Pneumonia, unspecified organism Status: Acute Assessment and Plan: Chest x-ray indicated pneumonia with pulmonary opacities Antibiotics on board Neb treatments on board Supplemental oxygen if needed Trend respiratory status (10) Asthma: Code(s): J45.909 - Unspecified asthma, uncomplicated Status: Acute Assessment and Plan: Continue home inhalers Does not appear to be in acute exacerbation Supplemental oxygen if indicated Trend respiratory status Stable at this time Time Spent With Patient Time with patient: Greater than 35 minutes Subjective Date/time seen: 02/16/22 10:30 Interval history: 02/16/22 1030 Patient is doing well today. She denies any chest pain, shortness a breath, nausea, vomiting, diarrhea, constipation, weakness or fatigue. Patient did state that she is feeling a lot [place] [id number]. Did get a call from the director social welfare who stated that the patient cannot be discharged tomorrow due to medicine refill and ability to get her home. Patient will be discharged in the morning. 02/15/22
--- NOTE | 2022-02-16 10:30 | P.PNIM_ITS ---
Progress Note: A&P Assessment and Plan (1) Acute pelvic inflammatory disease (PID): Code(s): N73.0 - Acute parametritis and pelvic cellulitis Status: Acute Assessment and Plan: * CT of the abdomen pelvis showed inflammatory changes in the deep pelvic related to possibly bladder, sigmoid rectum, pelvic infection * Pelvic ultrasound showed simple right ovarian cyst * OB on the case * Trichomonas was positive per exam * WBCs currently 61959 * Continue on ceftriaxone, doxycycline, Flagyl * Trend labs * Adjust therapy accordingly (2) Trichomonas contact: Code(s): Z20.2 - Contact with and (suspected) exposure to infections with a predominantly sexual mode of transmission Status: Acute Assessment and Plan: * see above (3) Multiple sclerosis: Code(s): G35 - Multiple sclerosis Status: Acute Assessment and Plan: * Stable * Continue home medications (4) Seizure: Code(s): R56.9 - Unspecified convulsions Status: Acute Assessment and Plan: * Noted to have a seizure prior to admission * Continue Vimpat 100mg PO BID * Ativan 1 mg IV on board for breakthrough seizure * Consider prolactin at time of seizure * Seizure precautions (5) Colitis: Code(s): K52.9 - Noninfective gastroenteritis and colitis, unspecified Status: Acute Assessment and Plan: * Abdominal CT indicates possible colitis * Currently on ceftriaxone/doxycycline/Flagyl * WBCs trending down currently [id number] * Consider GI consult if indicated * Low fiber diet * Trend labs (6) Sepsis: Code(s): A41.9 - Sepsis, unspecified organism Status: Acute Assessment and Plan: * Patient meets SIRS criteria with tachycardia of 113, tachypnea of 33, blood pressure of 99/58 * Source of infection being possible PID, pneumonia, colitis * [place] [address] * Lactic was 1 * Patient received 2 L of fluid at in the ED * IV fluids currently running at 125 an hour * Continue antibiotic therapy * Blood cultures pending * Pelvic cultures pending * Trend labs (7) Anxiety and depression: Code(s): F41.9 - Anxiety disorder, unspecified; F32.A - Depression, unspecified Status: Acute Assessment and Plan: * Continue home medications * Currently on Abilify, clonazepam, and Lexapro * Appears stable at this time (8) Acute metabolic encephalopathy: Code(s): G93.41 - Metabolic encephalopathy Status: Acute Assessment and Plan: * Patient presented with altered mental status * Probably related to acute seizure activity * Head CT shows no intracranial process * Neurology on board * Seizure medication resumed * Trend mental status (9) Pneumonia: Code(s): J18.9 - Pneumonia, unspecified organism Status: Acute Assessment and Plan: * Chest x-ray indicated pneumonia with pulmonary opacities * Antibiotics on board * Neb treatments on board * Supplemental oxygen if needed * Trend respiratory status (10) Asthma: Code(s): J45.909 - Unspecified asthma, uncomplicated Status: Acute Assessment and Plan: * Continue home inhalers * Does not appear to be in acute exacerbati
[2022-02-16] MEDS: SACCHAROMYCES BOULARDII 250 MG CAPSULE PO ×2 (13:54→17:09)
[2022-02-16 14:53] VITALS: BP 112/62; PULSE 75; RESP 18; TEMP 36.8; O2SAT 99
[2022-02-16] MEDS: ZONISAMIDE 100 MG CAPSULE 500 MG PO (20:59)
[2022-02-16] MEDS: clonazePAM (*CRX) 0.5 MG TABLET PO (21:02)
[2022-02-16 22:00] VITALS: BP 99/63; PULSE 79; RESP 18; TEMP 36.6; O2SAT 100
[2022-02-16 22:17] VITALS: O2SAT 98
[2022-02-17] MEDS: LACTATED RINGERS 1,000 ML 125 ML IV CONT (00:39)
[2022-02-17 05:32] VITALS: BP 99/57; PULSE 87; RESP 16; TEMP 35.9; O2SAT 99
[2022-02-17] MEDS: metroNIDAZOLE 250 MG TABLET 500 MG PO (06:15)
--- NOTE | 2022-02-17 08:15 | PM.DS ---
DS: Admitting Diagnosis Discharge Date 02/17/22814 Admitting Diagnosis PID, pneumonia, colitis DS: Discharge Diagnosis Discharge Diagnosis (1) Acute pelvic inflammatory disease (PID): Code(s): N73.0 - Acute parametritis and pelvic cellulitis Status: Acute Assessment and Plan: CT of the abdomen pelvis showed inflammatory changes in the deep pelvic related to possibly bladder, sigmoid rectum, pelvic infection Pelvic ultrasound showed simple right ovarian cyst OB on the case Trichomonas [place] [address] Patient was started on ceftriaxone, doxycycline, Flagyl Trend labs Adjust therapy accordingly (2) Trichomonas contact: Code(s): Z20.2 - Contact with and (suspected) exposure to infections with a predominantly sexual mode of transmission Status: Acute Assessment and Plan: see above (3) Multiple sclerosis: Code(s): G35 - Multiple sclerosis Status: Acute Assessment and Plan: Stable Continue home medications (4) Seizure: Code(s): R56.9 - Unspecified convulsions Status: Acute Assessment and Plan: Noted to have a seizure prior to admission Continue Vimpat 100mg PO BID Ativan 1 mg IV on board for breakthrough seizure Consider prolactin at time of seizure Seizure precautions (5) Colitis: Code(s): K52.9 - Noninfective gastroenteritis and colitis, unspecified Status: Acute Assessment and Plan: Abdominal CT indicates possible colitis Currently on ceftriaxone/doxycycline/Flagyl WBCs trending down currently 73138 Consider GI consult if indicated Low fiber diet Trend labs (6) Sepsis: Code(s): A41.9 - Sepsis, unspecified organism Status: Acute Assessment and Plan: Patient meets SIRS criteria with tachycardia of 113, tachypnea of 33, blood pressure of 99/58 Source of infection being possible PID, pneumonia, [place] [address] Lactic was 1 Patient received 2 L of fluid at in the ED IV fluids currently running at 125 an hour Continue antibiotic therapy Blood cultures pending Pelvic cultures pending Trend labs (7) Anxiety and depression: Code(s): F41.9 - Anxiety disorder, unspecified; F32.A - Depression, unspecified Status: Acute Assessment and Plan: Continue home medications Currently on Abilify, clonazepam, and Lexapro Appears stable at this time (8) Acute metabolic encephalopathy: Code(s): G93.41 - Metabolic encephalopathy Status: Acute Assessment and Plan: Patient presented with altered mental status Probably related to acute seizure activity Head CT shows no intracranial process Neurology on board Seizure medication resumed Trend mental status (9) Pneumonia: Code(s): J18.9 - Pneumonia, unspecified organism Status: Acute Assessment and Plan: Chest x-ray indicated pneumonia with pulmonary opacities Antibiotics on board Neb treatments on board Supplemental oxygen if needed Trend respiratory status (10) Asthma: Code(s): J45.909 - Unspecified asthma, uncomplicated Status: Acute Assessment and Plan: Continue home inhalers Does not appear to be in acute exacerbation Supplemental oxygen if indicated Trend respiratory status Stable at this time DS: Summary Hospital Course Hospital Course: Meredith Frost is a 41 year old female with past medical history of multiple sclerosis, seizures who presented to the ED with complaints of altered mental status.? Patient does live in a correction.? The caregiver reported that she would stare off and then had some shaking movements. patient feels better today. Her white count upon arrival was 28,000 is currently at 11,000 after antibiotics were started. CT of the a
--- NOTE | 2022-02-17 08:15 | P.DS_ITS ---
DS: Admitting Diagnosis Discharge Date 02/17/22814 Admitting Diagnosis PID, pneumonia, colitis DS: Discharge Diagnosis Discharge Diagnosis (1) Acute pelvic inflammatory disease (PID): Code(s): N73.0 - Acute parametritis and pelvic cellulitis Status: Acute Assessment and Plan: * CT of the abdomen pelvis showed inflammatory changes in the deep pelvic related to possibly bladder, sigmoid rectum, pelvic infection * Pelvic ultrasound showed simple right ovarian cyst * OB on the case * Trichomonas was [place] exam * [place] [address] * Patient was started on ceftriaxone, doxycycline, Flagyl * Trend labs * Adjust therapy accordingly (2) Trichomonas contact: Code(s): Z20.2 - Contact with and (suspected) exposure to infections with a predominantly sexual mode of transmission Status: Acute Assessment and Plan: * see above (3) Multiple sclerosis: Code(s): G35 - Multiple sclerosis Status: Acute Assessment and Plan: * Stable * Continue home medications (4) Seizure: Code(s): R56.9 - Unspecified convulsions Status: Acute Assessment and Plan: * Noted to have a seizure prior to admission * Continue Vimpat 100mg PO BID * Ativan 1 mg IV on board for breakthrough seizure * Consider prolactin at time of seizure * Seizure precautions (5) Colitis: Code(s): K52.9 - Noninfective gastroenteritis and colitis, unspecified Status: Acute Assessment and Plan: * Abdominal CT indicates possible colitis * Currently on ceftriaxone/doxycycline/Flagyl * WBCs trending down currently 39197 * Consider GI consult if indicated * Low fiber diet * Trend labs (6) Sepsis: Code(s): A41.9 - Sepsis, unspecified organism Status: Acute Assessment and Plan: * Patient meets SIRS criteria with tachycardia of 113, tachypnea of 33, blood pressure of 99/58 * Source of infection being possible PID, pneumonia, colitis * [place] [address] * Lactic was 1 * Patient received 2 L of fluid at in the ED * IV fluids currently running at 125 an hour * Continue antibiotic therapy * Blood cultures pending * Pelvic cultures pending * Trend labs (7) Anxiety and depression: Code(s): F41.9 - Anxiety disorder, unspecified; F32.A - Depression, unspecified Status: Acute Assessment and Plan: * Continue home medications * Currently on Abilify, clonazepam, and Lexapro * Appears stable at this time (8) Acute metabolic encephalopathy: Code(s): G93.41 - Metabolic encephalopathy Status: Acute Assessment and Plan: * Patient presented with altered mental status * Probably related to acute seizure activity * Head CT shows no intracranial process * Neurology on board * Seizure medication resumed * Trend mental status (9) Pneumonia: Code(s): J18.9 - Pneumonia, unspecified organism Status: Acute Assessment and Plan: * Chest x-ray indicated pneumonia with pulmonary opacities * Antibiotics on board * Neb treatments on board * Supplemental oxygen if needed * Trend respiratory status (10) Asthma: Code(s): J45.909 - Unspecified asthma, unco
[2022-02-17] MEDS: FLUTICASONE PROPIONATE 0.05% NA SPR 16 GM BTL (*BKC) 1 SPRAY NASAL (08:20)
[2022-02-17] MEDS: SACCHAROMYCES BOULARDII 250 MG CAPSULE PO (08:21)
[2022-02-17] MEDS: LACOSAMIDE (*CRX) 100 MG TABLET PO (08:21)
[2022-02-17] MEDS: FOLIC ACID 1 MG TABLET PO (08:21)
[2022-02-17] MEDS: BACLOFEN 10 MG TABLET PO (08:21)
[2022-02-17] MEDS: DOXYCYCLINE HYCLATE 100 MG TABLET PO (08:21)
[2022-02-17] MEDS: DOCUSATE SODIUM 100 MG CAPSULE PO (08:21)
[2022-02-17] MEDS: ESCITALOPRAM OXALATE 10 MG TABLET 20 MG PO (08:21)
[2022-02-17] MEDS: MICONAZOLE NITRATE 2% CREAM 30 GM TUBE 1 APPLIC TOPICAL (08:22)
[2022-02-17] MEDS: TRIAMCINOLONE ACET 0.1% CREAM 15 GM TUBE 1 APPLIC TOPICAL (08:22)
[2022-02-17 09:12] VITALS: PULSE 76; RESP 18; O2SAT 96
[2022-02-17] MEDS: FLUTICASONE/SALMETEROL 115-21 MCG INHALER 1 PUFF 2 PUFF INHALATION (09:12)
[2022-02-17 09:24] VITALS: PULSE 76; RESP 18
== END 2022-02-17 09:25 | disposition home or self-care (01) | DRG 720 ==
LOC: ANHED 21:05 → ANH3MEDSUR 22:59
PROVIDERS: Physician Assistant; Admitting Provider Obstetrics & Gynecology; Emergency Provider Emergency Medicine; PCP Nurse Practitioner Family; Visit Provider Nurse Practitioner
DX: A41.9 Sepsis, unspecified organism (principal); G93.41 Metabolic encephalopathy; J18.9 Pneumonia, unspecified organism; R56.9 Unspecified convulsions; N73.0 Acute parametritis and pelvic cellulitis; G35 Multiple sclerosis; J45.909 Unspecified asthma, uncomplicated; A59.01 Trichomonal vulvovaginitis; K52.9 Noninfective gastroenteritis and colitis, unspecified; Z20.2 Contact with and (suspected) exposure to infections with a predominantly sexual mode of transmission; N83.291 Other ovarian cyst, right side; F41.9 Anxiety disorder, unspecified; F32.A Depression, unspecified; M21.371 Foot drop, right foot; Z20.822 Contact with and (suspected) exposure to COVID-19; Z91.14 Patient's other noncompliance with medication regimen
CPT/HCPCS: 36415; 51701; 70450; 71046; 74177; 76856; 80053; 80307; 81001; 81025; 83036; 83605; 83690; 84443; 85025; 85027; 85610; 85730; 87040; 87070; 87491; 87591; 87808; 93005; 94640; 96361; 96365; 96375; 99285; A9270; J0696; J2060; J7030; J7120; Q9967; U0003; U0005

== ENCOUNTER 2022-05-01 19:30 | Observation (INO) | payer OTHER, SELFPAY ==
[2022-05-01] VITALS (9 sets, daily range): BP systolic 101–145; BP diastolic 61–90; PULSE 86–109; RESP 14–21; TEMP 36.2; O2SAT 97–100
--- NOTE | ~2022-05-01 | MR_ITS ---
EXAMINATION: MR brain/brain stem wo/w con DATE: 05/02/2022 09:45 INDICATION: Seizure. TECHNIQUE: Magnetic resonance imaging (MRI) of the brain and brainstem was performed without and with 12 mL MultiHance intravenous contrast. COMPARISON: Head CT 05/01/2022 FINDINGS: There are scattered areas of nonspecific increased T2-weighted signal intensity in the cere bral white matter. There is no intracranial hemorrhage, acute infarction, or abnormal intracranial ma ss lesion. The ventricles are normal in size. The orbits are normal. The paranasal sinuses are clear. The mastoid air cells are normal. IMPRESSION: 1. Extensive nonspecific cerebral white matter disease. The differential diagnosis includes premature chronic small vessel ischemic disease (especially if the patient has cardiovascular risk factors), d emyelinating disease such as multiple sclerosis, drug abuse, vasculitis, or reactive astrocytosis (gl iosis) secondary to nonspecific etiology. Reviewed, dictated and finalized at location A. LOPER DESIGNER IMPRESSION: 1. Extensive nonspecific cerebral white matter disease. The differential diagno sis includes premature chronic small vessel ischemic disease (especially if the patient has cardiovascular risk factors), demyelinating disease such as multip le sclerosis, drug abuse, vasculitis, or reactive astrocytosis (gliosis) second caridad to nonspecific etiology.
--- NOTE | ~2022-05-01 | CT_ITS ---
EXAMINATION: CT abdomen pelvis w con DATE: 05/02/2022 00:54 INDICATION: Leukocytosis. Rule out recurrent pelvic infection. TECHNIQUE: Computed tomography (CT) of the abdomen and pelvis was performed with 100 CC Omnipaque 350 intravenous contrast. Automated exposure control and iterative reconstruction technique were employe d. Exam dose: 768.18 mGy-cm total exam DLP. COMPARISON: 02/15/2022 pelvic ultrasound examination 02/14/2022 CT abdomen pelvis FINDINGS: There is considerable respiratory motion but no apparent consolidation at the lung bases. Up to 1.8 cm peripherally calcified gallstone. No gallbladder wall thickening or pericholecystic flui d or fat stranding is evident. No bile duct dilatation. The liver, spleen, pancreas appear unremarkab le. No pancreatic duct dilatation or pancreatic calcification. Normal morphology of the adrenal glands. No renal mass lesion or urinary tract calculus or hydroureteronephrosis is detected. The uterus and a dnexal areas are unremarkable. Small sliding hiatal hernia. Normal appendix. No bowel obstruction or intraperitoneal free air is det ected. Small fat-containing umbilical hernia. Included skeletal structures are unremarkable. IMPRESSION: Normal appendix Fluid level in the cecum which may be due to diarrhea or enterocolitis Cholelithiasis Reviewed, dictated and finalized at Location A. Reviewed, dictated and finalized at location A. ANALYST
--- NOTE | ~2022-05-01 | CT_ITS ---
EXAMINATION: CT brain wo con DATE: 05/01/2022 21:55 INDICATION: altered mental status . TECHNIQUE: Computed tomography (CT) of the head was performed without intravenous contrast. The mA wa s adjusted according to patient size. Iterative reconstruction technique was employed. The dose-lengt h product was 605.33 mGy-cm. COMPARISON: 02/14/2022. FINDINGS: No acute intracranial hemorrhage or extra-axial fluid collection. No hydrocephalus, mass, or herniation. No acute ischemic infarct. Unremarkable dural venous sinus attenuation. No acute osseous abnormality. Trace right mastoid fluid, the remaining aerated spaces are clear. Mild atrophy and moderate chronic white matter change, to a degree greater than expected for age, lik jigar related to history of demyelinating disease. Old bilateral basal ganglia lacunar infarcts versus old plaques. IMPRESSION: No acute intracranial process. Chronic findings, as detailed above. Reviewed, dictated and finalized at location K. AND PLANT UTILITY SUPERVISOR
--- NOTE | ~2022-05-01 | XR_ITS ---
EXAMINATION: XR chest 1V portable Exam Date/Time: 05/01/2022 20:01 CERTIFIED ALCOHOL DRUG COUNSELOR HISTORY: COUGH. PATIENT UNCOOPERATIVE W/TAKING BRA OFF. Comparison: 02/14/2022. RESULT: Lines, tubes, and devices: None. Lungs and pleura: Clear. Cardiomediastinal silhouette: Stable. Other: No acute osseous or upper abdominal finding. IMPRESSION: No acute cardiopulmonary process. Reviewed, dictated and finalized at location K. IFIED ALCOHOL DRUG COUNSELOR
--- NOTE | 2022-05-01 19:35 | ECG_ITS ---
Measurements Intervals [place] Rate: 91 P: 69 NE: 160 QRS: 68 QRSD: 88 T: 70 QT: 365 QTc: 449 Interpretive Statements SINUS RHYTHM POSSIBLE LEFT ATRIAL ENLARGEMENT [-0.1mV P WAVE IN V1/V2] COMPARED TO ECG 02/14/2022 21:26:21 NO SIGNIFICANT CHANGES Electronically Signed On 05-02-2022 11:26:44 [employer] OPERATOR CHIEF by Jaqui Santos M.D.
--- NOTE | 2022-05-01 19:47 | PC.NURSE ---
pt noted to have bruising to LUE, unable to explain how
[2022-05-01 20:06] LABS: Basophils Absolute Auto 0.1 K/mm3 (0.0-0.1); Basophils Percent Auto 0.3 % (0.2-1.2); Eosinophils Percent Auto 0.1 % (0-4.4); Hematocrit 33.3 % (37.0-47.0); Hemoglobin 10.2 g/dL (12.0-15.0); Immature Granulocyte Absolute 0.17 K/mm3 (0.00-0.031); Immature Granulocyte Percent A 0.7 % (0-0.5); Lymphocytes Percent Auto 2.4 % (18.3-44.2); Mean Corpuscular HGB Conc 30.6 g/dl (32-36); Mean Corpuscular Hemoglobin 22.7 pg (26-34); Mean Platelet Volume 8.5 fl (7.4-10.4); Monocytes Absolute Auto 1.5 K/mm3 (0.1-0.6); Neutrophils Absolute Auto 22.3 K/mm3 (1.3-6.7); Neutrophils Percent Auto 90.5 % (45.5-73.1); Platelet Count Result 402 k/mm3 (150-375); Red Cell Distribution Width 17.9 % (11.5-14.5); White Blood Count 24.6 K/mm3 (4.5-10.0)
[2022-05-01 20:17] LABS: Ethanol < 10 mg/dL (<10)
[2022-05-01 20:18] LABS: Partial Thromboplastin Time 21.9 SECONDS (22.3-36.8); Prothrombin Time 12.7 Seconds (11.1-14.7)
[2022-05-01 20:18] LABS: Ammonia < 9 umol/L (9-30)
[2022-05-01 20:22] LABS: Alanine Aminotransferase 39 U/L (6-35); Albumin Level 4.3 g/dL (3.5-5.1); Alkaline Phosphatase 62 U/L (38-126); Anion Gap 5 mmol/L (8-16); Aspartate Amino Transferase 24 U/L (14-36); Bilirubin,Total 0.3 mg/dL (0.2-1.3); Blood Urea Nitrogen 23 mg/dL (7-17); Carbon Dioxide 25 mmol/L (22-30); Chloride 107 mmol/L (98-107); Estimated CRCL calculation 82 ml/min; Estimated Glomerular Filt Rate > 60; Glucose 127 mg/dL (65-110); Magnesium 2.1 mg/dL (1.6-2.3); Potassium 3.6 mmol/L (3.4-5.0); Sodium 137 mmol/L (137-145)
[2022-05-01 20:24] LABS: Anisocytosis 1+ (NORMAL); Lactic Acid Reflex 1.2 mmol/L (0.7-2.0); Microcytosis 1+ (NORMAL); Ovalocytes 1+ (NORMAL); Platelet Estimate Increased (Adequate); Schistocytes None Seen (NORMAL)
[2022-05-01 20:34] LABS: Troponin I < 0.012 ng/mL (0.000-0.034)
[2022-05-01] MEDS: SODIUM CHLORIDE 0.9% IV 1,000 ML 999 ML IV CONT (20:48)
--- NOTE | 2022-05-01 21:06 | ED.GENADULT ---
HPI - General Adult General Chief complaint: Altered Mental Status Stated complaint: AMS Time Seen by Provider: 05/01/22 19:43 History of Present Illness HPI narrative: Patient is a 41-year-old female who presents the emergency department with chief complaint of altered mental status. The patient has prior history of a seizure in the past patient is unable to provide much history and answers yes to questions. The patient's brother arrived to the emergency department was able to provide additional history patient has prior history of seizures and develops prolonged postictal phases and can take 12 to 24 hours to clear after she has a seizure. Related Data Home Medications Medication Instructions Recorded Confirmed baclofen 10 mg tablet 10 mg PO BID 12/05/19 02/15/22 escitalopram oxalate 20 mg tablet 20 mg PO DAILY 12/05/19 02/15/22 fluticasone propionate 50 1 spray intranasal BID-TID 12/05/19 02/15/22 mcg/actuation nasal spray,suspension zonisamide 100 mg capsule 500 mg PO HS 12/05/19 02/15/22 ibuprofen 800 mg tablet 800 mg PO Q6H PRN Headache 03/06/21 02/15/22 tretinoin 0.05 % topical cream 1 applic topical QHS 04/25/21 02/15/22 clonazepam 0.5 mg tablet 0.5 mg PO HS 12/07/21 02/15/22 albuterol sulfate 90 mcg/actuation 2 puff inhalation Q4H PRN 02/15/22 02/15/22 aerosol inhaler (Ventolin HFA) Shortness Of Breath betamethasone valerate 0.1 % 1 applic topical DAILY 02/15/22 02/15/22 topical cream budesonide-formoterol HFA 160 2 puff inhalation BID 02/15/22 02/15/22 mcg-4.5 mcg/actuation aerosol inhaler (Symbicort) clotrimazole 1 % topical cream 1 applic topical BID 02/15/22 02/15/22 folic acid 1 mg tablet 1 mg PO DAILY 02/15/22 02/15/22 lacosamide 200 mg tablet (Vimpat) 100 mg PO BID 02/15/22 02/15/22 Allergies Allergy/AdvReac Type Severity Reaction Status Date / Time No Known Allergies Allergy Verified 05/01/22 19:34 Review of Systems Review of Systems: A 10 system review of systems was completed on the patient and is negative except for what is stated in the HPI. Nursing and ancillary documentation was reviewed. [facility] Past Medical History Medical History Asthma Foot drop, right Multiple sclerosis Pressure ulcer of right foot, stage 2 Seizure Surgical History Surgical History History of tonsillectomy Family History Family History Mother Asthma Father Heart problem Social History Social History Social History: Patient currently lives by herself and states that her mother is her surrogate and she lives in [place]. She wishes to be a full code and she has no pets currently. Smoking status: Never smoker Additional smoking assessment comments: marijuana Alcohol intake: current Drinks per week: 2 Substance use: current Substance use type: marijuana Lack of Transportation: No Lack of Food: Often True Current Housing: I Have Housing Concerned About Future Housing: Decline to Answer Difficulty Paying Gas/Electric Bills: Decline to Answer Difficulty Paying for Meds: Decline to Answer Currently Unemployed: Decline to Answer Education: Decline to Answer Difficulty w/ Childcare or Family Care: Decline to Answer Living arrangements: alone Occupation/Education: other Gender identity (if verbalized by the patient): Female Sexual Orientation (if Verbalized by the Patient): Straight or Heterosexual Spiritual care concerns: No Agree to blood products: Yes Exam Narrative: GENERAL: Well-appearing, well-nourished, and in no acute distress. HEAD: Normocephalic, atraumatic. EYES: PERRLA and EOMI. ENT: Nares clear, no rhinorrhea or epistaxis. Mucous membranes moist. NECK: Supple. CHEST: Clear to auscultation. No res
[2022-05-01 21:55] LABS: Appearance Urine Cloudy (Clear); Bilirubin Urine Negative (Negative); Blood Urine Negative (Negative); Color Urine Yellow (Yellow); Glucose Urine UA Negative (Negative); Ketones Urine Negative (Negative); Leukocyte Esterase Ur Negative LEU/UL (Negative); Nitrate Urine Negative (Negative); Protein Urine Trace mg/dL (Negative); Specific Grav Ur 1.015 (1.001-1.035); Urobilinogen Urine 0.2 mg/dL (<2.0); pH Urine 8.5 (5.0-9.0)
[2022-05-01 22:08] LABS: Amorphous Sediment Urine Few; Budding Yeast Urine Present /hpf; Squamous Epithelial Cell Urine Rare /hpf (Few); WBC Urine 0-3 /hpf
[2022-05-01 22:10] LABS: Add Urine Microscopic? YES
[2022-05-01 22:18] LABS: Amphetamine Screen Urine Negative (Negative); Barbiturate Screen Urine Negative (Negative); Benzodiazepines Screen Urine Negative (Negative); Cannabinoid Screen Urine Positive (Negative); Cocaine Screen Urine Negative (Negative); Methadone Screen Urine Negative (Negative); Opiate Screen Urine Negative (Negative); Phencyclidine Screen Urine Negative (Negative)
[2022-05-01] MEDS: LORazepam INJ (*CRX) 2 MG/ML VIAL 1 MG IV PUSH (22:55)
[2022-05-01 23:45] LABS: Influenza A QL RT-PCR Negative (Negative); Influenza B QL RT-PCR Negative (Negative); SARS-CoV-2 RNA PCR Negative
[2022-05-02] VITALS (12 sets, daily range): BP systolic 99–105; BP diastolic 55–69; PULSE 75–99; RESP 14–22; TEMP 36.6–36.8; O2SAT 96–100; BMI 23.6
--- NOTE | 2022-05-02 00:02 | PM.IMHP ---
H&P: HPI History of Present Illness Date/Time: 05/02/22 00:02 Chief Complaint: 41 years old female with past medical history of multiple sclerosis seizure disorder pelvic inflammatory disease Trichomonas infection was recently discharged from the hospital for deep pelvic inflammation and seizure patient presented to the hospital with altered mental status and concern for seizure patient unable to provide history according to the family patient will have normally 12-24 hours. Of altered mental status after episodes of seizure patient on Vimpat pending home medication reconciliation patient also on baclofen at the ER patient was found to have leukocytosis altered mental status admitted for further evaluation treatment of seizure and leukocytosis Review of Systems Review of Systems: Unable to obtain [facility] Past Medical History Medical History Asthma Foot drop, right Multiple sclerosis Pressure ulcer of right foot, stage 2 Seizure Surgical History Surgical History History of tonsillectomy Family History Family History Mother Asthma Father Heart problem Social History Social History Social History: Patient currently lives by herself and states that her mother is her surrogate and she lives in [place]. She wishes to be a full code and she has no pets currently. Smoking status: Never smoker Additional smoking assessment comments: marijuana Alcohol intake: current Drinks per week: 2 Substance use: current Substance use type: marijuana Lack of Transportation: No Lack of Food: Often True Current Housing: I Have Housing Concerned About Future Housing: Decline to Answer Difficulty Paying Gas/Electric Bills: Decline to Answer Difficulty Paying for Meds: Decline to Answer Currently Unemployed: Decline to Answer Education: Decline to Answer Difficulty w/ Childcare or Family Care: Decline to Answer Living arrangements: alone Occupation/Education: other Gender identity (if verbalized by the patient): Female Sexual Orientation (if Verbalized by the Patient): Straight or Heterosexual Spiritual care concerns: No Agree to blood products: Yes Meds Home Medications and Allergies Home Medications Medication Instructions Recorded Confirmed Type baclofen 10 mg tablet 10 mg PO BID 12/05/19 02/15/22 History escitalopram oxalate 20 mg tablet 20 mg PO DAILY 12/05/19 02/15/22 History fluticasone propionate 50 1 spray intranasal BID-TID 12/05/19 02/15/22 History mcg/actuation nasal spray,suspension zonisamide 100 mg capsule 500 mg PO HS 12/05/19 02/15/22 History ibuprofen 800 mg tablet 800 mg PO Q6H PRN Headache 03/06/21 02/15/22 History docusate sodium 100 mg capsule 100 mg PO Q12HR #30 caps 03/09/21 02/15/22 Rx tretinoin 0.05 % topical cream 1 applic topical QHS 04/25/21 02/15/22 History clonazepam 0.5 mg tablet 0.5 mg PO HS 12/07/21 02/15/22 History albuterol sulfate 90 mcg/actuation 2 puff inhalation Q4H PRN 02/15/22 02/15/22 History aerosol inhaler (Ventolin HFA) Shortness Of Breath betamethasone valerate 0.1 % 1 applic topical DAILY 02/15/22 02/15/22 History topical cream budesonide-formoterol HFA 160 2 puff inhalation BID 02/15/22 02/15/22 History mcg-4.5 mcg/actuation aerosol inhaler (Symbicort) clotrimazole 1 % topical cream 1 applic topical BID 02/15/22 02/15/22 History folic acid 1 mg tablet 1 mg PO DAILY 02/15/22 02/15/22 History lacosamide 200 mg tablet (Vimpat) 100 mg PO BID 02/15/22 02/15/22 History Saccharomyces boulardii 250 mg 250 mg PO BID #60 caps 02/16/22 Rx capsule (Florastor) cefdinir 300 mg capsule 300 mg PO Q12H #14 caps 02/16/22 Rx doxycycline hyclate 100 mg tablet 100 mg PO Q12HR #20 tabs 02/16/22 Rx metroni
[2022-05-02 01:03] LABS: Creatine Kinase 134 U/L (30-135)
--- NOTE | 2022-05-02 01:14 | ADMGEN ---
This patient, Meredith Frost, was admitted to Medical Room 345-01. Patient/family oriented to hospital policies and general routines including ID bracelet, bed and alarms, visiting hours, pain management, procedures, bathroom and other care routines, personal items, smoking policy, room service/diet, and visiting hours. Information on how to activate the Rapid Response Team has been discussed. Patient/Family are encouraged to report perceived risks to care and to ask questions if they do not understand what they are told or what they should do.
[2022-05-02] MEDS: SODIUM CHLORIDE 0.9% IV 1,000 ML 125 ML IV CONT ×2 (01:48→12:31)
[2022-05-02 04:28] LABS: Folic Acid > 20.0 ng/mL (2.76->20)
[2022-05-02 06:33] LABS: Basophils Absolute Auto 0.1 K/mm3 (0.0-0.1); Basophils Percent Auto 0.6 % (0.2-1.2); Eosinophils Absolute Auto 0.3 K/mm3 (0-0.3); Eosinophils Percent Auto 1.8 % (0-4.4); Hematocrit 30.5 % (37.0-47.0); Hemoglobin 9.3 g/dL (12.0-15.0); Immature Granulocyte Absolute 0.07 K/mm3 (0.00-0.031); Immature Granulocyte Percent A 0.4 % (0-0.5); Lymphocytes Absolute Auto 1.57 K/mm3 (0.9-3.2); Lymphocytes Percent Auto 9.9 % (18.3-44.2); Mean Corpuscular HGB Conc 30.5 g/dl (32-36); Mean Corpuscular Hemoglobin 22.1 pg (26-34); Mean Corpuscular Volume 72.4 fl (80-100); Mean Platelet Volume 8.5 fl (7.4-10.4); Monocytes Absolute Auto 1.6 K/mm3 (0.1-0.6); Neutrophils Absolute Auto 12.3 K/mm3 (1.3-6.7); Neutrophils Percent Auto 77.3 % (45.5-73.1); Platelet Count Result 359 k/mm3 (150-375); Red Blood Count 4.21 M/mm3 (4.2-5.4); Red Cell Distribution Width 18.1 % (11.5-14.5); White Blood Count 15.9 K/mm3 (4.5-10.0)
[2022-05-02 06:46] LABS: Alanine Aminotransferase 33 U/L (6-35); Albumin Level 3.9 g/dL (3.5-5.1); Alkaline Phosphatase 54 U/L (38-126); Anion Gap 3 mmol/L (8-16); Aspartate Amino Transferase 25 U/L (14-36); Bilirubin,Total 0.3 mg/dL (0.2-1.3); Blood Urea Nitrogen 16 mg/dL (7-17); Calcium 8.1 mg/dL (8.4-10.2); Carbon Dioxide 22 mmol/L (22-30); Chloride 111 mmol/L (98-107); Estimated CRCL calculation 94 ml/min; Estimated Glomerular Filt Rate > 60; Glucose 111 mg/dL (65-110); Potassium 3.6 mmol/L (3.4-5.0); Sodium 136 mmol/L (137-145)
[2022-05-02] MEDS: metroNIDAZOLE 500 MG/ISO 100ML 500 MG/100 ML BAG 100 MG IVPB ×3 (06:58→21:54)
[2022-05-02 07:12] LABS: Poikilocytosis 1+ (NORMAL)
[2022-05-02 07:13] LABS: Schistocytes Rare (NORMAL)
[2022-05-02] MEDS: levETIRAcetam 500MG/NACL 100ML 500 MG/100 ML BAG 400 MG IVPB ×2 (08:57→20:44)
[2022-05-02] MEDS: ENOXAPARIN 40 MG/0.4 ML SYRINGE SUB-Q (08:58)
--- NOTE | 2022-05-02 09:41 | WPDNEURCNPN ---
Assessment and Plan Assessment and plan (1) Seizure: Code(s): R56.9 - Unspecified convulsions Status: Acute (2) Altered mental status: Code(s): R41.82 - Altered mental status, unspecified Status: Acute (3) Leukocytosis: Code(s): D72.829 - Elevated white blood cell count, unspecified Status: Acute Plan Meredith Frost is a 41 year old female with a history of multiple sclerosis, seizures, asthma presenting with suspected breakthrough seizures. Etiology unclear -- could be provoked by possible infection vs unprovoked. She continues to have some speech difficulties and having difficulty answer questions. Could be a consequence of post-ictal state, although she does seem pretty alert on exam. MRI brain was negative for acute findings. Unclear what patient's baseline speech is. There is a documented history of MS, but I do not see any MS medications listed in her chart currently. - If underlying infection has been ruled out, will increase Lacosamide to 150mg BID - Continue Zonisamide 500mg qhs Consult date: 05/02/22 Reason for consult: Breakthrough seizure HPI: Meredith Frost is a 41 year old female with a history of multiple sclerosis, seizures, asthma presenting with suspected breakthrough seizures. Patient was brought to the emergency room after being found altered. She was unable to give any history, but brother arrived and mentioned that she does have a history of prolonged post-ictal state after having seizure. She takes Zonisamide 500mg qhs and Lacosamide 100mg BID. She was admitted two months ago for PID. Her labs during this admission were significant for elevated WBC (24) initially. UDS was positive for cannabinoids. She has not had any fevers. She is currently admitted and on IV antibiotics for presumed underlying infection. Routine EEG done which showed discharges originating from the left anterior temporal region. MRI showed evidence of extensive white matter disease, but no acute findings. Patient only able to answer questions with yes/no this morning. No family at bedside. Review of Systems Review of Systems: ROS unobtainable: Yes unobtainable due to medical condition PMFSH Past Medical History Medical History Asthma Foot drop, right Multiple sclerosis Pressure ulcer of right foot, stage 2 Seizure Surgical History Surgical History History of tonsillectomy Family History Family History Mother Asthma Father Heart problem Social History Social History Social History: Patient currently lives by herself and states that her mother is her surrogate and she lives in [place]. She wishes to be a full code and she has no pets currently. Smoking status: Never smoker Additional smoking assessment comments: marijuana Alcohol intake: current Drinks per week: 2 Substance use: current Substance use type: marijuana Lack of Transportation: No Lack of Food: Often True Current Housing: I Have Housing Concerned About Future Housing: Decline to Answer Difficulty Paying Gas/Electric Bills: Decline to Answer Difficulty Paying for Meds: Decline to Answer Currently Unemployed: Decline to Answer Education: Decline to Answer Difficulty w/ Childcare or Family Care: Decline to Answer Living arrangements: alone Occupation/Education: other Gender identity (if verbalized by the patient): Female Sexual Orientation (if Verbalized by the Patient): Straight or Heterosexual Spiritual care concerns: No Agree to blood products: Yes Meds Home Medications and Allergies Home Medications Medication Instructions Recorded Confirmed Type baclofen 10 mg tablet 10 mg PO BID 12/05/19 05/02/22 History escitalopram oxalate 20 mg tablet 20 mg PO DAILY 12/05/19
[2022-05-02] MEDS: DOCUSATE SODIUM 100 MG CAPSULE PO ×2 (10:39→20:43)
[2022-05-02] MEDS: MIRABEGRON 50 MG ER TABLET PO (10:39)
[2022-05-02] MEDS: FLUTICASONE PROPIONATE 0.05% NA SPR 16 GM BTL (*BKC) 2 SPRAY NASAL (10:40)
[2022-05-02] MEDS: FOLIC ACID 1 MG TABLET PO (10:40)
[2022-05-02] MEDS: ESCITALOPRAM OXALATE 10 MG TABLET 20 MG PO (10:40)
[2022-05-02] MEDS: THIAMINE HCL 100 MG TABLET PO (10:40)
[2022-05-02] MEDS: BACLOFEN 10 MG TABLET PO ×2 (10:41→17:05)
[2022-05-02] MEDS: LACOSAMIDE (*CRX) 100 MG TABLET PO ×2 (10:41→17:05)
--- NOTE | 2022-05-02 11:30 | P.NEURO_ITS ---
Neurology EEG Report General Information Date of Study: 05/02/22 TEST Routine EEG DIAGNOSIS Seizure CONDITION OF RECORDING awake, drowsy, asleep EEG NUMBER [id number] CLINICAL HISTORY Patient was brought into the hospital with concerns for increased seizures and altered mental status. EEG DESCRIPTION During the awake state with eyes closed the background consists of 8-9 Hz posterior dominant rhythm which attenuates appropriately with eye opening. The recording is continuous. There is a well developed anterior-posterior gradient. No significant asymmetries of background activities are noted. With drowsiness there is was waxing and waning of the dominant rhythm with eventual replacement by a mixture of beta, alpha, and theta activity. As the patient enters stage II sleep, symmetrical spindles and K-complexes are present. Intermittent epil eptiform discharges noted in the left anterior temporal region (F7/T3) during drowsiness and sleep. There are no seizures during this recording. Hyperventilation and photic stimulation were not performed. IMPRESSION This is an abnormal routine EEG recorded in awake and asleep states, due to the presence of intermittent focal epileptiform discharges originating from the left anterior temporal region, suggestive of decreased threshold to have seizure from a focal-onset mechanism. Clinical correlation is recommended.
--- NOTE | 2022-05-02 15:10 | PM.IMPN ---
Progress Note: A&P Assessment and Plan (1) Seizure: Code(s): R56.9 - Unspecified convulsions Status: Acute Assessment and Plan: Patient has a history seizure disorder and on Vimpat and zonisamide for this. patient from the ED after she was found to have altered mental status. Patient has a history of prolonged postictal states after seizures. Differential includes provoked versus unprovoked seizure Added IV Keppra P.r.n. Ativan MRI of the brain negative for acute findings. MRI did reveal MS and this is in her history, although patient is not on any MS medications currently. neurology consulted and appreciate recommendations eeg conducted which showed discharges originating from the left anterior temporal region. patient's lacosamide will be increased if infection ruled out (2) Altered mental status: Code(s): R41.82 - Altered mental status, unspecified Status: Acute Assessment and Plan: Most likely related to seizure disorder cannot rule out sepsis as patient was recently treated for pelvic inflammatory disease. Patient originally started on cefepime, vanc and Flagyl. CT revealed the fluid levels in the cecum possible diarrhea verses enter colitis. There were no inflammatory changes noted in the deep pelvic region. Is unlikely the patient is still experiencing PID. Patient's antibiotics changed to Levaquin and Flagyl for possible enterocolitis on 05/02/22. Patient alert and oriented x1 to self. Patient was A&O x4 during her last hospital stay. (3) Pelvic inflammatory disease: Code(s): N73.9 - Female pelvic inflammatory disease, unspecified Status: Acute Assessment and Plan: CT abdomen pelvis did not reveal signs of PID, But did show fluid level in the cecum which may be due to diarrhea or enter colitis. PID Resolved. (4) Leukocytosis: Code(s): D72.829 - Elevated white blood cell count, unspecified Status: Acute Assessment and Plan: Patient found to have a white count of 23.9 on ED presentation. Patient started on vanc, cefepime, and Flagyl for possible PID recurrence. CT abdomen pelvis did not reveal signs of PID although yeast, chlamydia, gonorrhea, and Trichomonas swabs performed. CT did reveal fluid level in the cecum which may be due to diarrhea or enterocolitis. Antibiotics transition to Levaquin and Flagyl. White count is trending down. Elevated white blood cell count could be reactive from seizure. Will continue to trend. (5) Multiple sclerosis: Code(s): G35 - Multiple sclerosis Status: Acute Assessment and Plan: Not currently on any medication MRI did show MS in patient's history it appeared that she was already diagnosed with this Time Spent With Patient Time with patient: 25 - 35 minutes Subjective Date/time seen: 05/02/22 15:10 Interval history: Patient lying in bed comfortably. patient is pleasantly confused. Patient only answers yes and no to questions. Only oriented to self. Was able to tell me her name. patient denied any pain, shortness a breath, chest pain, nausea, vomiting, Diarrhea, urinary frequency, urgency and burning with urination. Review of Systems Review of Systems: All systems reviewed & are unremarkable except as noted in HPI and below Exam Narrative: GENERAL: Comfortable, no acute distress HENMT: moist mucous membranes EYES: EOM intact b/l NECK: no lymphadenopathy RESPIRATORY: clear to auscultation CARDIO: RRR GI: soft, nontender, bowel sounds present SKIN: no rashes EXTREMITIES: no edema, redness or tenderness NEURO: A&O X1, difficulty following commands, difficulty performing tasks on right side of the body, strength 5/5 in upper extremities. Objective Data Vital Signs Vital Signs: Vital Signs - 24 hr 05/01/22 19:31 05/01/22 19:45 05/01/22 19:44 Temperature 97.2 F L Pulse Rate 90
[2022-05-02] MEDS: ZONISAMIDE 100 MG CAPSULE 500 MG PO (20:44)
[2022-05-02] MEDS: clonazePAM (*CRX) 0.5 MG TABLET PO (20:44)
--- NOTE | 2022-05-02 22:45 | PC.NURSE ---
Spoke with patient's mom, Serg. Serg states that she is pt's guardian and will bring in paperwork, requesting for healthcare facility administrator to call her regarding discharge plans. Serg states patient gets an Ocrevus infusion every 6 months for her MS and is likely due for one soon. Also that pt has a social sciences lecturer to assist with needs and medications. line out worker is Marylin [phone].
[2022-05-03] VITALS (12 sets, daily range): BP systolic 103–111; BP diastolic 59–90; PULSE 65–99; RESP 16–20; TEMP 36.6; O2SAT 97–100
[2022-05-03] MEDS: SODIUM CHLORIDE 0.9% IV 1,000 ML 125 ML IV CONT (01:00)
[2022-05-03] MEDS: metroNIDAZOLE 500 MG/ISO 100ML 500 MG/100 ML BAG 100 MG IVPB ×2 (05:16→13:14)
[2022-05-03 06:42] LABS: Basophils Absolute Auto 0.1 K/mm3 (0.0-0.1); Eosinophils Absolute Auto 0.5 K/mm3 (0-0.3); Eosinophils Percent Auto 5.4 % (0-4.4); Hematocrit 30.1 % (37.0-47.0); Hemoglobin 9.2 g/dL (12.0-15.0); Immature Granulocyte Absolute 0.02 K/mm3 (0.00-0.031); Immature Granulocyte Percent A 0.2 % (0-0.5); Lymphocytes Absolute Auto 1.35 K/mm3 (0.9-3.2); Mean Corpuscular HGB Conc 30.6 g/dl (32-36); Mean Corpuscular Hemoglobin 22.9 pg (26-34); Mean Corpuscular Volume 75.1 fl (80-100); Mean Platelet Volume 8.6 fl (7.4-10.4); Monocytes Percent Auto 11.1 % (2.6-8.5); Neutrophils Absolute Auto 6.1 K/mm3 (1.3-6.7); Neutrophils Percent Auto 67.3 % (45.5-73.1); Platelet Count Result 314 k/mm3 (150-375); Red Blood Count 4.01 M/mm3 (4.2-5.4); Red Cell Distribution Width 18.2 % (11.5-14.5)
[2022-05-03 06:55] LABS: Alanine Aminotransferase 27 U/L (6-35); Albumin Level 3.5 g/dL (3.5-5.1); Alkaline Phosphatase 52 U/L (38-126); Anion Gap 4 mmol/L (8-16); Aspartate Amino Transferase 21 U/L (14-36); Bilirubin,Total 0.3 mg/dL (0.2-1.3); Blood Urea Nitrogen 7 mg/dL (7-17); Calcium 7.8 mg/dL (8.4-10.2); Carbon Dioxide 21 mmol/L (22-30); Chloride 115 mmol/L (98-107); Estimated CRCL calculation 94 ml/min; Estimated Glomerular Filt Rate > 60; Glucose 92 mg/dL (65-110); Potassium 3.3 mmol/L (3.4-5.0); Sodium 140 mmol/L (137-145)
[2022-05-03] MEDS: MIRABEGRON 50 MG ER TABLET PO (09:52)
[2022-05-03] MEDS: FOLIC ACID 1 MG TABLET PO (09:52)
[2022-05-03] MEDS: BACLOFEN 10 MG TABLET PO ×2 (09:52→17:10)
[2022-05-03] MEDS: LACOSAMIDE (*CRX) 100 MG TABLET PO (09:52)
[2022-05-03] MEDS: THIAMINE HCL 100 MG TABLET PO (09:52)
[2022-05-03] MEDS: levETIRAcetam 500MG/NACL 100ML 500 MG/100 ML BAG 400 MG IVPB (09:52)
[2022-05-03] MEDS: ENOXAPARIN 40 MG/0.4 ML SYRINGE SUB-Q (09:53)
[2022-05-03] MEDS: ESCITALOPRAM OXALATE 10 MG TABLET 20 MG PO (09:53)
[2022-05-03] MEDS: FLUTICASONE PROPIONATE 0.05% NA SPR 16 GM BTL (*BKC) 2 SPRAY NASAL (09:53)
[2022-05-03] MEDS: FLUTICASONE/SALMETEROL 115-21 MCG INHALER 1 PUFF 2 PUFF INHALATION ×2 (10:27→21:22)
--- NOTE | 2022-05-03 11:50 | WPDNEUROPN ---
Progress Note: A&P Assessment and Plan (1) Seizure: Code(s): R56.9 - Unspecified convulsions Status: Acute (2) Altered mental status: Code(s): R41.82 - Altered mental status, unspecified Status: Acute Plan Meredith Frost is a 41 year old female with a history of multiple sclerosis, seizures, asthma presenting with suspected breakthrough seizures. Etiology unclear -- seems to be unprovoked. Mental status change could have been a consequence of post-ictal state. She appears to back to baseline today. MRI brain was negative for acute findings. - Increase Lacosamide to 150mg BID - Continue Zonisamide 500mg qhs - Ok to discharge from neurology standpoint Subjective Date/time seen: 05/03/22 11:50 Interval history: Meredith Frost is a 41 year old female with a history of multiple sclerosis, seizures, asthma presenting with suspected breakthrough seizures. Patient was brought to the emergency room after being found altered. She was unable to give any history, but brother arrived and mentioned that she does have a history of prolonged post-ictal state after having seizure. She takes Zonisamide 500mg qhs and Lacosamide 100mg BID. She was admitted two months ago for PID. Her labs during this admission were significant for elevated WBC (24) initially. UDS was positive for cannabinoids. She has not had any fevers. She is currently admitted and on IV antibiotics for presumed underlying infection. Routine EEG done which showed discharges originating from the left anterior temporal region. MRI showed evidence of extensive white matter disease, but no acute findings. WBC downtrending and normalized today. She feels back to baseline. She denies any complaints. She reports good compliance with her anti-seizure medications. She does not remember if she had a seizure. Review of Systems Constitutional: Constitutional: Reports no additional constitutional complaints Eyes: Eyes: Reports no additional eye complaints ENT: Reports system reviewed and no additional complaints, except as documented Cardiovascular: Cardiovascular: Reports no additional cardiovascular complaints Respiratory: Respiratory: Reports no additional respiratory complaints Gastrointestinal: Gastrointestinal: Reports no additional gastrointestinal complaints Genitourinary: Genitourinary: Reports no additional female genitourinary complaints Musculoskeletal: Musculoskeletal: Reports no additional musculoskeletal complaints Integumentary/Breasts: Skin/Breast: Reports system reviewed and no additional complaints, except as docu Neurologic: Reports as per HPI Psychiatric: Psychiatric: Reports no additional psychiatric complaints Exam Const: General: comfortable and no acute distress HENMT: Mouth: Yes moist mucous membranes Eyes: Pupils: Equal, round and reactive pupils present EOM: EOMs intact bilaterally Resp: Effort & Inspection: normal respiratory effort Auscultation: clear to auscultation bilaterally Cardio: Rate: regular rate Rhythm: regular rhythm GI: GI Palp: Yes Soft to palpation Auscultation: normal bowel sounds Skin: General skin exam: normal color Neuro: Other: Awake, alert. Pupils equal and reactive bilaterally, EOMI, face symmetric. Strength symmetric and intact throughout. Sensation intact throughout. FNF normal bilaterally. Language comprehension and fluency intact. She does perseverate on certain words at times. Gait deferred. Extrem: General: normal to inspection Psych: Mental Status: mental status grossly normal Affect: normal affect Objective Data Vital Signs Vital Signs: Vital Signs - 24 hr 05/02/22 12:00 05/02/22 14:00 05/02/22 16:00 Temperature 36.6 C Pulse Rate 75 99 84 Respiratory Rate 22 H Blood Pressure 105/55 L Pulse Oximetry 100 Oxygen Delivery Fraction of Inspired Oxygen 05/02/22 19:51 05/02/22 22:00 05/02/22 20:00 Temperature 36.6 C Pulse Rate 84 84 94 Respiratory R
[2022-05-03] MEDS: ALBUTEROL SULFATE (*SP) AEROSOL 1 PUFF 2 PUFF INHALATION (13:12)
--- NOTE | 2022-05-03 15:13 | P.PNIM_ITS ---
Progress Note: A&P Assessment and Plan (1) Seizure: Code(s): R56.9 - Unspecified convulsions Status: Acute Assessment and Plan: Patient has a history seizure disorder and on Vimpat and zonisamide for this. patient from the ED after she was found to have altered mental status. Patient has a history of prolonged postictal states after seizures. * Differential includes provoked versus unprovoked seizure * Added IV Keppra * P.r.n. Ativan * MRI of the brain negative for acute findings. MRI did reveal MS and this is in her history, although patient is not on any MS medications currently. * neurology consulted and appreciate recommendations * eeg conducted which showed discharges originating from the left anterior temporal region. * patient's lacosamide will be increased if infection ruled out 05/03/22 * discontinue antibiotics due to low probability of infection and high probability of postictal elevated white count * will monitor CBC * if patient continues to do well off antibiotics will increase lacosamide (2) Altered mental status: Code(s): R41.82 - Altered mental status, unspecified Status: Acute Assessment and Plan: Most likely related to seizure disorder cannot rule out sepsis as patient was recently treated for pelvic inflammatory disease. * Patient originally started on cefepime, vanc and Flagyl. * CT revealed the fluid levels in the cecum possible diarrhea verses enter colitis. There were no inflammatory changes noted in the deep pelvic region. Is unlikely the patient is still experiencing PID. * Patient's antibiotics changed to Levaquin and Flagyl for possible enterocolitis on 05/02/22. * Patient alert and oriented x1 to self. * Patient was A&O x4 during her last hospital stay. 05/03/22 * patient A&O x3 today * altered mental status appears to be most likely postictal * plan to discontinue antibiotics and monitor white count (3) Pelvic inflammatory disease: Code(s): N73.9 - Female pelvic inflammatory disease, unspecified Status: Acute Assessment and Plan: CT abdomen pelvis did not reveal signs of PID, But did show fluid level in the cecum which may be due to diarrhea or enter colitis. * PID Resolved. (4) Leukocytosis: Code(s): D72.829 - Elevated white blood cell count, unspecified Status: Acute Assessment and Plan: Patient found to have a white count of 23.9 on ED presentation. * Patient started on vanc, cefepime, and Flagyl for possible PID recurrence. * CT abdomen pelvis did not reveal signs of PID although yeast, chlamydia, gonorrhea, and Trichomonas swabs performed. CT did reveal fluid level in the cecum which may be due to diarrhea or enterocolitis. * Antibiotics transition to Levaquin and Flagyl. * White count is trending down. * Elevated white blood cell count could be reactive from seizure. * Will continue to trend. 05/03/22 * Plan to discontinue antibiotics and monitor white blood cell count. * Patient does not have any symptoms at this time and it seems more likely that white count is elevated due seizure (5) Multiple sclerosis: Code(s): G35 - Multiple sclerosis Status: Acute Assessment and Plan: Not currently on any medication MRI did show MS in patient's history it appeared that she was already diagnosed with this Time Spent With Patient Time with patient: 25 - 35 minutes Subjective Date/time seen:
--- NOTE | 2022-05-03 15:13 | PM.IMPN ---
Progress Note: A&P Assessment and Plan (1) Seizure: Code(s): R56.9 - Unspecified convulsions Status: Acute Assessment and Plan: Patient has a history seizure disorder and on Vimpat and zonisamide for this. patient from the ED after she was found to have altered mental status. Patient has a history of prolonged postictal states after seizures. Differential includes provoked versus unprovoked seizure Added IV Keppra P.r.n. Ativan MRI of the brain negative for acute findings. MRI did reveal MS and this is in her history, although patient is not on any MS medications currently. neurology consulted and appreciate recommendations eeg conducted which showed discharges originating from the left anterior temporal region. patient's lacosamide will be increased if infection ruled out 05/03/22 discontinue antibiotics due to low probability of infection and high probability of postictal elevated white count will monitor CBC if patient continues to do well off antibiotics will increase lacosamide (2) Altered mental status: Code(s): R41.82 - Altered mental status, unspecified Status: Acute Assessment and Plan: Most likely related to seizure disorder cannot rule out sepsis as patient was recently treated for pelvic inflammatory disease. Patient originally started on cefepime, vanc and Flagyl. CT revealed the fluid levels in the cecum possible diarrhea verses enter colitis. There were no inflammatory changes noted in the deep pelvic region. Is unlikely the patient is still experiencing PID. Patient's antibiotics changed to Levaquin and Flagyl for possible enterocolitis on 05/02/22. Patient alert and oriented x1 to self. Patient was A&O x4 during her last hospital stay. 05/03/22 patient A&O x3 today altered mental status appears to be most likely postictal plan to discontinue antibiotics and monitor white count (3) Pelvic inflammatory disease: Code(s): N73.9 - Female pelvic inflammatory disease, unspecified Status: Acute Assessment and Plan: CT abdomen pelvis did not reveal signs of PID, But did show fluid level in the cecum which may be due to diarrhea or enter colitis. PID Resolved. (4) Leukocytosis: Code(s): D72.829 - Elevated white blood cell count, unspecified Status: Acute Assessment and Plan: Patient found to have a white count of 23.9 on ED presentation. Patient started on vanc, cefepime, and Flagyl for possible PID recurrence. CT abdomen pelvis did not reveal signs of PID although yeast, chlamydia, gonorrhea, and Trichomonas swabs performed. CT did reveal fluid level in the cecum which may be due to diarrhea or enterocolitis. Antibiotics transition to Levaquin and Flagyl. White count is trending down. Elevated white blood cell count could be reactive from seizure. Will continue to trend. 05/03/22 Plan to discontinue antibiotics and monitor white blood cell count. Patient does not have any symptoms at this time and it seems more likely that white count is elevated due seizure (5) Multiple sclerosis: Code(s): G35 - Multiple sclerosis Status: Acute Assessment and Plan: Not currently on any medication MRI did show MS in patient's history it appeared that she was already diagnosed with this Time Spent With Patient Time with patient: 25 - 35 minutes Subjective Date/time seen: 05/03/22 15:13 Interval history: patient sitting up in bed in better spirits today. Patient denies chest pain, shortness a breath, cough, nausea, vomiting, urinary symptoms such as burning frequency and urgency, vaginal itching, increased vaginal discharge, fever, pelvic pain, diarrhea and headache patient A&O x3 does not remember what brought her into the hospital. Review of Systems Review of Systems: All systems reviewed & are unremarkable except as noted in HPI and below
[2022-05-03] MEDS: LACOSAMIDE (*CRX) 50 MG TABLET 150 MG PO (17:10)
[2022-05-03] MEDS: ZONISAMIDE 100 MG CAPSULE 500 MG PO (20:03)
[2022-05-03] MEDS: DOCUSATE SODIUM 100 MG CAPSULE PO (20:03)
[2022-05-03] MEDS: clonazePAM (*CRX) 0.5 MG TABLET PO (20:03)
[2022-05-04] VITALS (7 sets, daily range): BP systolic 100–101; BP diastolic 53–61; PULSE 65–85; RESP 17–18; TEMP 36.6–36.9; O2SAT 99–100
[2022-05-04 06:56] LABS: Basophils Absolute Auto 0.1 K/mm3 (0.0-0.1); Basophils Percent Auto 1.2 % (0.2-1.2); Eosinophils Absolute Auto 0.8 K/mm3 (0-0.3); Hematocrit 31.5 % (37.0-47.0); Hemoglobin 9.4 g/dL (12.0-15.0); Immature Granulocyte Absolute 0.02 K/mm3 (0.00-0.031); Immature Granulocyte Percent A 0.3 % (0-0.5); Lymphocytes Absolute Auto 1.57 K/mm3 (0.9-3.2); Mean Corpuscular HGB Conc 29.8 g/dl (32-36); Mean Corpuscular Hemoglobin 21.9 pg (26-34); Mean Corpuscular Volume 73.4 fl (80-100); Mean Platelet Volume 8.9 fl (7.4-10.4); Monocytes Absolute Auto 0.9 K/mm3 (0.1-0.6); Monocytes Percent Auto 12.2 % (2.6-8.5); Neutrophils Absolute Auto 4.1 K/mm3 (1.3-6.7); Neutrophils Percent Auto 55.3 % (45.5-73.1); Platelet Count Result 342 k/mm3 (150-375); Red Blood Count 4.29 M/mm3 (4.2-5.4); Red Cell Distribution Width 18.3 % (11.5-14.5); White Blood Count 7.5 K/mm3 (4.5-10.0)
[2022-05-04 07:02] LABS: Alanine Aminotransferase 32 U/L (6-35); Albumin Level 3.8 g/dL (3.5-5.1); Alkaline Phosphatase 48 U/L (38-126); Anion Gap 3 mmol/L (8-16); Aspartate Amino Transferase 32 U/L (14-36); Bilirubin,Total 0.3 mg/dL (0.2-1.3); Blood Urea Nitrogen 9 mg/dL (7-17); Calcium 8.4 mg/dL (8.4-10.2); Carbon Dioxide 22 mmol/L (22-30); Chloride 112 mmol/L (98-107); Estimated CRCL calculation 94 ml/min; Estimated Glomerular Filt Rate > 60; Glucose 95 mg/dL (65-110); Potassium 3.7 mmol/L (3.4-5.0); Sodium 137 mmol/L (137-145)
[2022-05-04 07:18] LABS: Anisocytosis 1+ (NORMAL); Hypochromasia 1+ (NORMAL); Microcytosis 1+ (NORMAL); Platelet Estimate Adequate (Adequate); Schistocytes None Seen (NORMAL)
[2022-05-04] MEDS: FLUTICASONE PROPIONATE 0.05% NA SPR 16 GM BTL (*BKC) 2 SPRAY NASAL (08:16)
[2022-05-04] MEDS: LACOSAMIDE (*CRX) 50 MG TABLET 150 MG PO (08:16)
[2022-05-04] MEDS: BACLOFEN 10 MG TABLET PO (08:16)
[2022-05-04] MEDS: THIAMINE HCL 100 MG TABLET PO (08:16)
[2022-05-04] MEDS: ESCITALOPRAM OXALATE 10 MG TABLET 20 MG PO (08:16)
[2022-05-04] MEDS: FOLIC ACID 1 MG TABLET PO (08:17)
[2022-05-04] MEDS: MIRABEGRON 50 MG ER TABLET PO (08:17)
[2022-05-04] MEDS: DOCUSATE SODIUM 100 MG CAPSULE PO (08:17)
[2022-05-04] MEDS: ENOXAPARIN 40 MG/0.4 ML SYRINGE SUB-Q (08:17)
[2022-05-04] MEDS: FLUTICASONE/SALMETEROL 115-21 MCG INHALER 1 PUFF 2 PUFF INHALATION (08:34)
--- NOTE | 2022-05-04 13:48 | P.DS_ITS ---
DS: Admitting Diagnosis Discharge Date 05/04/22 Admitting Diagnosis seizure DS: Discharge Diagnosis Discharge Diagnosis (1) Seizure: Code(s): R56.9 - Unspecified convulsions Status: Acute Assessment and Plan: Patient has a history seizure disorder and on Vimpat and zonisamide for this. patient from the ED after she was found to have altered mental status. Patient has a history of prolonged postictal states after seizures. * Differential includes provoked versus unprovoked seizure * Added IV Keppra * P.r.n. Ativan * MRI of the brain negative for acute findings. MRI did reveal MS and this is in her history, although patient is not on any MS medications currently. * neurology consulted and appreciate recommendations * eeg conducted which showed discharges originating from the left anterior temporal region. * patient's lacosamide will be increased if infection ruled out 05/03/22 * discontinue antibiotics due to low probability of infection and high probability of postictal elevated white count * will monitor CBC * if patient continues to do well off antibiotics will increase lacosamide 05/04/22 * patient doing well off antibiotics. * Increasing lacosamide to 150 b.i.d. * plan to discharge home (2) Altered mental status: Code(s): R41.82 - Altered mental status, unspecified Status: Acute Assessment and Plan: Most likely related to seizure disorder cannot rule out sepsis as patient was recently treated for pelvic inflammatory disease. * Patient originally started on cefepime, vanc and Flagyl. * CT revealed the fluid levels in the cecum possible diarrhea verses enter colitis. There were no inflammatory changes noted in the deep pelvic region. Is unlikely the patient is still experiencing PID. * Patient's antibiotics changed to Levaquin and Flagyl for possible enterocolitis on 05/02/22. * Patient alert and oriented x1 to self. * Patient was A&O x4 during her last hospital stay. 05/03/22 * patient A&O x3 today * altered mental status appears to be most likely postictal * plan to discontinue antibiotics and monitor white count 05/04/22 * resolved (3) Pelvic inflammatory disease: Code(s): N73.9 - Female pelvic inflammatory disease, unspecified Status: Acute Assessment and Plan: CT abdomen pelvis did not reveal signs of PID, But did show fluid level in the cecum which may be due to diarrhea or enter colitis. * PID Resolved. (4) Leukocytosis: Code(s): D72.829 - Elevated white blood cell count, unspecified Status: Acute Assessment and Plan: Patient found to have a white count of 23.9 on ED presentation. * Patient started on vanc, cefepime, and Flagyl for possible PID recurrence. * CT abdomen pelvis did not reveal signs of PID although yeast, chlamydia, gonorrhea, and Trichomonas swabs performed. CT did reveal fluid level in the cecum which may be due to diarrhea or enterocolitis. * Antibiotics transition to Levaquin and Flagyl. * White count is trending down. * Elevated white blood cell count could be reactive from seizure. * Will continue to trend. 05/03/22 * Plan to discontinue antibiotics and monitor white blood cell count. * Patient does not have any symptoms at this time and it seems more likely that white count is elevated due seizure 05/04/22 * most likely reactive * now resolved (5) Multiple sclerosis: Code(s): G35 - Multiple sclerosis Statu
--- NOTE | 2022-05-04 13:48 | PM.DS ---
DS: Admitting Diagnosis Discharge Date 05/04/22 Admitting Diagnosis seizure DS: Discharge Diagnosis Discharge Diagnosis (1) Seizure: Code(s): R56.9 - Unspecified convulsions Status: Acute Assessment and Plan: Patient has a history seizure disorder and on Vimpat and zonisamide for this. patient from the ED after she was found to have altered mental status. Patient has a history of prolonged postictal states after seizures. Differential includes provoked versus unprovoked seizure Added IV Keppra P.r.n. Ativan MRI of the brain negative for acute findings. MRI did reveal MS and this is in her history, although patient is not on any MS medications currently. neurology consulted and appreciate recommendations eeg conducted which showed discharges originating from the left anterior temporal region. patient's lacosamide will be increased if infection ruled out 05/03/22 discontinue antibiotics due to low probability of infection and high probability of postictal elevated white count will monitor CBC if patient continues to do well off antibiotics will increase lacosamide 05/04/22 patient doing well off antibiotics. Increasing lacosamide to 150 b.i.d. plan to discharge home (2) Altered mental status: Code(s): R41.82 - Altered mental status, unspecified Status: Acute Assessment and Plan: Most likely related to seizure disorder cannot rule out sepsis as patient was recently treated for pelvic inflammatory disease. Patient originally started on cefepime, vanc and Flagyl. CT revealed the fluid levels in the cecum possible diarrhea verses enter colitis. There were no inflammatory changes noted in the deep pelvic region. Is unlikely the patient is still experiencing PID. Patient's antibiotics changed to Levaquin and Flagyl for possible enterocolitis on 05/02/22. Patient alert and oriented x1 to self. Patient was A&O x4 during her last hospital stay. 05/03/22 patient A&O x3 today altered mental status appears to be most likely postictal plan to discontinue antibiotics and monitor white count 05/04/22 resolved (3) Pelvic inflammatory disease: Code(s): N73.9 - Female pelvic inflammatory disease, unspecified Status: Acute Assessment and Plan: CT abdomen pelvis did not reveal signs of PID, But did show fluid level in the cecum which may be due to diarrhea or enter colitis. PID Resolved. (4) Leukocytosis: Code(s): D72.829 - Elevated white blood cell count, unspecified Status: Acute Assessment and Plan: Patient found to have a white count of 23.9 on ED presentation. Patient started on vanc, cefepime, and Flagyl for possible PID recurrence. CT abdomen pelvis did not reveal signs of PID although yeast, chlamydia, gonorrhea, and Trichomonas swabs performed. CT did reveal fluid level in the cecum which may be due to diarrhea or enterocolitis. Antibiotics transition to Levaquin and Flagyl. White count is trending down. Elevated white blood cell count could be reactive from seizure. Will continue to trend. 05/03/22 Plan to discontinue antibiotics and monitor white blood cell count. Patient does not have any symptoms at this time and it seems more likely that white count is elevated due seizure 05/04/22 most likely reactive now resolved (5) Multiple sclerosis: Code(s): G35 - Multiple sclerosis Status: Acute Assessment and Plan: Not currently on any medication MRI did show MS in patient's history it appeared that she was already diagnosed with this DS: Summary Hospital Course Reason for hospitalization: seizure Hospital Course: this is a 41-year-old female with history of seizure disorder, multiple sclerosis, schizophrenia, and recently hospitalized for PID that presented to the ED on 05/02/2022 with altered mental status. Family concerned that p
--- NOTE | 2022-05-08 09:51 | PC.NURSE ---
Blood cx are negative.
--- NOTE | 2022-05-16 07:01 | PC.NURSE ---
yeast in blood is negative.
== END 2022-05-04 16:00 | disposition home or self-care (01) ==
LOC: ANHED 23:53 → ANH3MED 05-02 14:10
PROVIDERS: Emergency Medicine; Internal Medicine Critical Care Medicine; Admitting Provider Internal Medicine; Emergency Provider Emergency Medicine; PCP Nurse Practitioner Family; Visit Provider Internal Medicine
DX: R56.9 Unspecified convulsions (principal); R41.82 Altered mental status, unspecified; N73.9 Female pelvic inflammatory disease, unspecified; D72.829 Elevated white blood cell count, unspecified; G35 Multiple sclerosis; J45.909 Unspecified asthma, uncomplicated; Z20.822 Contact with and (suspected) exposure to COVID-19; R06.02 Shortness of breath; G43.909 Migraine, unspecified, not intractable, without status migrainosus; A59.9 Trichomoniasis, unspecified; K80.20 Calculus of gallbladder without cholecystitis without obstruction; F10.90 Alcohol use, unspecified, uncomplicated; Y90.0 Blood alcohol level of less than 20 mg/100 ml; F12.90 Cannabis use, unspecified, uncomplicated; R90.82 White matter disease, unspecified; Z79.51 Long term (current) use of inhaled steroids; Z79.1 Long term (current) use of non-steroidal anti-inflammatories (NSAID); Z79.899 Other long term (current) drug therapy
CPT/HCPCS: 36415; 51701; 70450; 70553; 71045; 74177; 80053; 80307; 81001; 81025; 82140; 82550; 82607; 82746; 83605; 83735; 84443; 84484; 85025; 85610; 85730; 87040; 87102; 87491; 87591; 87636; 93005; 94640; 95816; 96361; 96365; 96366; 96367; 96372; 96375; 96376; 99285; A9270; A9577; G0378; G0379; J0692; J1650; J1953; J1956; J2060; J3370; J7030; Q9967

== ENCOUNTER 2022-06-13 08:45 | Outpatient (RCR) | payer OTHER, SELFPAY ==
--- NOTE | 2022-05-22 09:47 | PTOPEVAL1 ---
Assessment and note entered by Idalia Rubalcava, PT Evaluation Information Assessment Status Evaluation Diagnosis MS, gait dysfunction, R foot drop Onset Apr 19, 2022 Subjective Information GOAL: walk straight; have not had any falls in the past 6 months; have not been very active, staying home alot; does not do any exercises for legs, other than try to do some walking, but not done much lately; Reported Pain Level Pain Score 0: Self Report Assessment PT Clinical Summary Meredith has the diagnosis of MS, gait dysfunction. Her history includes seizures and foot drop R since R tibial fracture. She has not had any recent falls. Due to seizures, she does not drive or cook. With the evaluation, she has flat foot gait pattern and decreased motor control of LE, R > L; Patel balance score of 50/56; TUG and 5 reps sit/ stand scores are within normal ranges. On stairs, she requires 1 hand railing and there is weakness B LE's- unable to maintain single leg standing or tandem standing. Skilled PT services are indicated for therapeutic exercises and activities to increase LE strength, gait and balance skills, with education for home exericses and safety with mobility. Plan of Care Interventions Gait Training,Neuro Re-education,Patient/Caregiver Education,Therapeutic Activities,Therapeutic Exercise PT Services Indicated Yes Treatment Frequency and 2x/wk for 3 weeks Duration These treatments will address the objective and functional deficits as defined above. The patient will be advanced safely and appropriately in order for the patient to progress towards his/her prior level of function. Additional exercises will be introduced and as well as a comprehensive home exercise program upon discharge, if needed, ?to ensure carryover of functional gains achieved in the clinic. This treatment plan has been reviewed and agreement upon by the patient.
--- NOTE | 2022-06-13 09:16 | PTOPDC ---
Assessment and note entered by Idalia Rubalcava, PT Evaluation Information Assessment Status Discharge Diagnosis MS, gait dysfunction, R foot drop Onset Apr 19, 2022 Subjective Information Meredith reports: walking is better, can walk faster; need a rail on the stairs- going down scares me; have not had any falls; Reported Pain Level Pain Score 0: Self Report Assessment PT Clinical Summary Meredith has received 7 PT sessions. Compared to the initial evaluation: increased R and L LE strength and motor control with ankle circles in sitting and single leg standing, but continues to have R ankle DF weakness; Patel balance score improved by 2 points; can perform steps without using a hand railing, but continues to have a fear of falling when going down the stairs. She has been educated on home exercises and safety with mobility. The goals were partially achieved. Discharge PT services. Plan of Care PT Services Indicated No discharge PT services
== END 2022-06-13 15:09 | disposition home or self-care (01) ==
LOC: ANHPT 08:45
PROVIDERS: PCP Nurse Practitioner Family
DX: G35 Multiple sclerosis (principal); M21.371 Foot drop, right foot; R26.9 Unspecified abnormalities of gait and mobility
CPT/HCPCS: 97110; 97112; 97161; 97530

== ENCOUNTER 2022-12-31 15:26 | Emergency (ER) | payer OTHER, SELFPAY ==
--- NOTE | ~2022-12-31 | XR_ITS ---
EXAMINATION: XR hand RT min 3V DATE: 12/31/2022 15:52 INDICATION: Right index finger injury with swelling TECHNIQUE: Posteroanterior, oblique and lateral views of the right hand were obtained. COMPARISON: None. FINDINGS: Bone alignment is normal. No fracture. 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 Mild soft tissue swelling about the second digit. IMPRESSION: 1. No acute osseous abnormality. Reviewed, dictated and finalized at location A.
[2022-12-31 15:32] VITALS: BP 126/68; PULSE 93; RESP 16; TEMP 36.3; O2SAT 100
[2022-12-31 16:54] VITALS: BP 128/65; PULSE 89; RESP 16; TEMP 36.6; O2SAT 100
--- NOTE | 2022-12-31 17:12 | ED.UPPEXIN ---
HPI - Extremity Injury (Upper) General Chief Complaint: Extremity Injury, Upper Stated Complaint: finger injury Time Seen by Provider: 12/31/22 17:12 Source: patient Mode of arrival: ambulatory Limitations: no limitations History of Present Illness HPI narrative: This is a 42-year-old female that presents to the emergency department for right second finger injury. Reports she jammed her finger in her couch accidentally. Reports this happened a couple of days prior. Denies decreased range of motion or numbness. Related Data Home Medications Medication Instructions Recorded Confirmed baclofen 10 mg tablet 10 mg PO BID 12/05/19 05/02/22 escitalopram oxalate 20 mg tablet 20 mg PO DAILY 12/05/19 05/02/22 fluticasone propionate 50 1 spray intranasal BID-TID 12/05/19 05/02/22 mcg/actuation nasal spray,suspension zonisamide 100 mg capsule 500 mg PO HS 12/05/19 05/02/22 ibuprofen 800 mg tablet 800 mg PO Q6H PRN Headache 03/06/21 05/02/22 tretinoin 0.05 % topical cream 1 applic topical QHS 04/25/21 05/02/22 clonazepam 0.5 mg tablet 0.5 mg PO HS 12/07/21 05/02/22 albuterol sulfate 90 mcg/actuation 2 puff inhalation Q4H PRN 02/15/22 05/02/22 aerosol inhaler (Ventolin HFA) Shortness Of Breath betamethasone valerate 0.1 % 1 applic topical DAILY 02/15/22 05/02/22 topical cream budesonide-formoterol HFA 160 2 puff inhalation BID 02/15/22 05/02/22 mcg-4.5 mcg/actuation aerosol inhaler (Symbicort) clotrimazole 1 % topical cream 1 applic topical BID 02/15/22 05/02/22 folic acid 1 mg tablet 1 mg PO DAILY 02/15/22 05/02/22 Myrbetriq 50 mg PO DAILY 05/02/22 05/02/22 aripiprazole 300 mg suspension, 300 mg IM Q28D 05/02/22 05/02/22 extended rel. intramuscular syringe (Lata Nazario) onabotulinumtoxinA 100 units IM Q90D migraines 05/02/22 05/02/22 thiamine mononitrate (vit B1) 100 100 mg PO DAILY 05/02/22 05/02/22 mg tablet (Vitamin B-1 (mononitrate)) Allergies Allergy/AdvReac Type Severity Reaction Status Date / Time No Known Allergies Allergy Verified 05/02/22 02:27 Review of Systems Review of Systems: CONSTITUTIONAL: Denies fever MUSCULOSKELETAL: Reports joint pain, and myalgia. NEUROLOGIC: Denies numbness All systems reviewed & are unremarkable except as noted in HPI and below PMFSH Past Medical History Medical History Asthma Foot drop, right Multiple sclerosis Pressure ulcer of right foot, stage 2 Seizure Surgical History Surgical History History of tonsillectomy Family History Family History Mother Asthma Father Heart problem Social History Social History Social History: Patient currently lives by herself and states that her mother is her surrogate and she lives in [place]. She wishes to be a full code and she has no pets currently. Smoking status: Never smoker Additional smoking assessment comments: marijuana Alcohol intake: current Drinks per week: 2 Substance use: current Substance use type: marijuana Lack of Transportation: No Lack of Food: Often True Current Housing: I Have Housing Concerned About Future Housing: Decline to Answer Difficulty Paying Gas/Electric Bills: Decline to Answer Difficulty Paying for Meds: Decline to Answer Currently Unemployed: Decline to Answer Education: Decline to Answer Difficulty w/ Childcare or Family Care: Decline to Answer Living arrangements: alone Occupation/Education: other Gender identity (if verbalized by the patient): Female Sexual Orientation (if Verbalized by the Patient): Straight or Heterosexual Spiritual care concerns: No Agree to blood products: Yes Exam Narrative: GENERAL: Well-appearing, well-nourished, and in no acute distress. HEAD: Normocephalic, atraumatic. EYES: EO
== END 2022-12-31 17:23 | disposition home or self-care (01) ==
PROVIDERS: Emergency Provider Physician Assistant; PCP Nurse Practitioner Family
DX: S63.610A Unspecified sprain of right index finger, initial encounter (principal); J45.909 Unspecified asthma, uncomplicated; M21.371 Foot drop, right foot; W22.03XA Walked into furniture, initial encounter
CPT/HCPCS: 73130; 99283

== ENCOUNTER 2023-01-13 04:02 | Emergency (ER) | payer OTHER, SELFPAY ==
[2023-01-13 04:03] VITALS: BP 124/80; RESP 18; TEMP 36.6; O2SAT 99
--- NOTE | 2023-01-13 04:12 | ED.HA ---
HPI - Headache General Chief Complaint: Headache Stated Complaint: headache Time Seen by Provider: 01/13/23 04:03 Source: patient Limitations: no limitations History of Present Illness HPI Narrative: Patient is a 42-year-old female present to the emergency department complaining of a migraine. Patient states she has an extensive history of migraines and this feels the same as her typical migraines. Patient states she been feeling this migraine for the past 48 hours and it did not abruptly get worse rather has not gotten better prompting her to seek care. Patient says she tried Motrin without any relief. Patient denies any preventative therapy such as sumatriptan. Patient states that she gets Botox injections for her migraines and is not due for another Botox injection until February. Patient states that the migraine is frontal, bilateral, pulsatile, nonradiating, has not noticed anything making it better, notes that it is worse with bright lights, admits to associated nausea yesterday without any nausea currently. Patient denies any fever, recent illness, recent injuries, chest pain, shortness of breath, cough, abdominal pain, dysuria, hematuria, urinary frequency, diarrhea, rash, numbness, weakness, vision changes, sore throat, nasal congestion, ear pain, hearing changes, neck pain, paresthesias, new or changed medications. Patient states that she is unsure as to what typically works for her with her migraines other than Botox injections. Patient denies any history of aneurysms are family history of aneurysms. Patient denies it being sudden in onset and maximal in intensity immediately upon onset. Patient denies anyone having similar symptoms around her. Patient admits to seeing a neurologist on a regular basis for this. Patient admits to being dehydrated. Related Data Home Medications Medication Instructions Recorded Confirmed baclofen 10 mg tablet 10 mg PO BID 12/05/19 05/02/22 escitalopram oxalate 20 mg tablet 20 mg PO DAILY 12/05/19 05/02/22 fluticasone propionate 50 1 spray intranasal BID-TID 12/05/19 05/02/22 mcg/actuation nasal spray,suspension zonisamide 100 mg capsule 500 mg PO HS 12/05/19 05/02/22 ibuprofen 800 mg tablet 800 mg PO Q6H PRN Headache 03/06/21 05/02/22 tretinoin 0.05 % topical cream 1 applic topical QHS 04/25/21 05/02/22 clonazepam 0.5 mg tablet 0.5 mg PO HS 12/07/21 05/02/22 albuterol sulfate 90 mcg/actuation 2 puff inhalation Q4H PRN 02/15/22 05/02/22 aerosol inhaler (Ventolin HFA) Shortness Of Breath betamethasone valerate 0.1 % 1 applic topical DAILY 02/15/22 05/02/22 topical cream budesonide-formoterol HFA 160 2 puff inhalation BID 02/15/22 05/02/22 mcg-4.5 mcg/actuation aerosol inhaler (Symbicort) clotrimazole 1 % topical cream 1 applic topical BID 02/15/22 05/02/22 folic acid 1 mg tablet 1 mg PO DAILY 02/15/22 05/02/22 Myrbetriq 50 mg PO DAILY 05/02/22 05/02/22 aripiprazole 300 mg suspension, 300 mg IM Q28D 05/02/22 05/02/22 extended rel. intramuscular syringe (Lata Nazario) onabotulinumtoxinA 100 units IM Q90D migraines 05/02/22 05/02/22 thiamine mononitrate (vit B1) 100 100 mg PO DAILY 05/02/22 05/02/22 mg tablet (Vitamin B-1 (mononitrate)) Allergies Allergy/AdvReac Type Severity Reaction Status Date / Time No Known Allergies Allergy Verified 01/13/23 04:09 Review of Systems Review of Systems: A 10 system review of systems was completed on the patient and is negative except for what is stated in the HPI. Nursing and ancillary documentation was reviewed. [facility] Past Medical History Medical History Asthma Foot drop, right Multiple sclerosis Pressure ulcer of right foot, stage 2 Seizure Surgical History Surgical History History of tonsillectomy Family History Family History Mother Asthma Fath
[2023-01-13] MEDS: SODIUM CHLORIDE 0.9% IV 1,000 ML 999 ML IV CONT ×2 (04:22→05:31)
[2023-01-13] MEDS: PROCHLORPERAZINE EDISYLATE 10 MG/2 ML VIAL IV PUSH (04:23)
[2023-01-13] MEDS: KETOROLAC 15 MG/ML VIAL (*BKC) IV PUSH (04:23)
[2023-01-13] MEDS: diphenhydrAMINE HCl INJ 50 MG/ML VIAL 25 MG IV PUSH (04:23)
[2023-01-13] MEDS: MAGNESIUM SULF 1 GM/D5W 100 ML 1 GM/100 ML BAG IVPB (05:31)
[2023-01-13 05:36] VITALS: BP 101/54; PULSE 87; RESP 18; O2SAT 100
[2023-01-13 06:29] VITALS: BP 108/62; PULSE 80; RESP 15; O2SAT 100
== END 2023-01-13 06:30 | disposition home or self-care (01) ==
PROVIDERS: Emergency Provider Student in an Organized Health Care Education/Training Program; PCP Nurse Practitioner Family
DX: G43.909 Migraine, unspecified, not intractable, without status migrainosus (principal)
CPT/HCPCS: 96361; 96365; 96375; 99284; J0780; J1200; J1885; J3475; J7030

== ENCOUNTER 2023-06-08 10:00 | Outpatient (CLI) | payer OTHER, SELFPAY ==
--- NOTE | ~2023-06-08 | MM_ITS ---
EXAMINATION: MM screening loraine BI w mel[place] HISTORY: Screening TECHNIQUE: Craniocaudal and mediolateral oblique 3-D tomosynthesis images were obtained and synthetic 2-D images were generated. CAD analysis was submitted and interpreted. COMPARISON: 11/01/2021 BREAST PARENCHYMAL COMPOSITION: Dense: The breasts are heterogeneously dense, which may obscure small masses FINDINGS: There is no evidence of suspicious mass, calcification, or architectural distortion to sugg est malignancy in either breast. There has been no suspicious interval change. IMPRESSION: 1. No mammographic evidence of malignancy. 2. Recommend routine screening mammography in one year. BI-RADS Category 1: Negative Reviewed, dictated and finalized at location A.
== END 2023-06-08 10:01 | disposition home or self-care (01) ==
PROVIDERS: PCP Nurse Practitioner Obstetrics & Gynecology; Visit Provider Nurse Practitioner Obstetrics & Gynecology
DX: Z12.31 Encounter for screening mammogram for malignant neoplasm of breast (principal)
CPT/HCPCS: 77063; 77067

== ENCOUNTER 2023-06-20 15:51 | Emergency (ER) | payer OTHER, SELFPAY ==
[2023-06-20 15:50] VITALS: BP 134/77; PULSE 83; RESP 18; TEMP 36.8; O2SAT 100
--- NOTE | 2023-06-20 15:55 | PC.NURSE ---
Pt able to drink water from Dr. Richter
--- NOTE | 2023-06-20 15:59 | ED.GENADULT ---
HPI - General Adult General Chief complaint: Skin/Abscess/Foreign Body Stated complaint: food bolus Time Seen by Provider: 06/20/23 15:51 History of Present Illness HPI narrative: patient is a 42-year-old female who presents ER with concern for esophageal food impaction. She was eating some barbecue burnt ins when she suddenly could not swallow. She called EMS. Just prior to arriving to the hospital she was able to get up the meat that was stuck. She never had any shortness of breath but was drooling and if she drinks water it would immediately come up. This is not happened to her before. Denies any acid reflux. Related Data Home Medications Medication Instructions Recorded Confirmed baclofen 10 mg tablet 10 mg PO BID 12/05/19 05/02/22 escitalopram oxalate 20 mg tablet 20 mg PO DAILY 12/05/19 05/02/22 fluticasone propionate 50 1 spray intranasal BID-TID 12/05/19 05/02/22 mcg/actuation nasal spray,suspension zonisamide 100 mg capsule 500 mg PO HS 12/05/19 05/02/22 ibuprofen 800 mg tablet 800 mg PO Q6H PRN Headache 03/06/21 05/02/22 tretinoin 0.05 % topical cream 1 applic topical QHS 04/25/21 05/02/22 clonazepam 0.5 mg tablet 0.5 mg PO HS 12/07/21 05/02/22 albuterol sulfate 90 mcg/actuation 2 puff inhalation Q4H PRN 02/15/22 05/02/22 aerosol inhaler (Ventolin HFA) Shortness Of Breath betamethasone valerate 0.1 % 1 applic topical DAILY 02/15/22 05/02/22 topical cream budesonide-formoterol HFA 160 2 puff inhalation BID 02/15/22 05/02/22 mcg-4.5 mcg/actuation aerosol inhaler (Symbicort) clotrimazole 1 % topical cream 1 applic topical BID 02/15/22 05/02/22 folic acid 1 mg tablet 1 mg PO DAILY 02/15/22 05/02/22 Myrbetriq 50 mg PO DAILY 05/02/22 05/02/22 aripiprazole 300 mg suspension, 300 mg IM Q28D 05/02/22 05/02/22 extended rel. intramuscular syringe (Lata Nazario) onabotulinumtoxinA 100 units IM Q90D migraines 05/02/22 05/02/22 thiamine mononitrate (vit B1) 100 100 mg PO DAILY 05/02/22 05/02/22 mg tablet (Vitamin B-1 (mononitrate)) Allergies Allergy/AdvReac Type Severity Reaction Status Date / Time No Known Allergies Allergy Verified 01/13/23 04:09 Review of Systems Constitutional: Constitutional: Reports no additional constitutional complaints ENT: Reports dysphagia, Denies nasal congestion and Denies sore throat Cardiovascular: Cardiovascular: Reports no additional cardiovascular complaints Respiratory: Respiratory: Reports no additional respiratory complaints Gastrointestinal: Gastrointestinal: Reports no additional gastrointestinal complaints [facility] Past Medical History Medical History Asthma Foot drop, right Multiple sclerosis Pressure ulcer of right foot, stage 2 Seizure Surgical History Surgical History History of tonsillectomy Family History Family History Mother Asthma Father Heart problem Social History Social History Social History: Patient currently lives by herself and states that her mother is her surrogate and she lives in [place]. She wishes to be a full code and she has no pets currently. Smoking status: Never smoker Additional smoking assessment comments: marijuana Alcohol intake: current Drinks per week: 2 Substance use: current Substance use type: marijuana Lack of Transportation: No Lack of Food: Often True Current Housing: I Have Housing Concerned About Future Housing: Decline to Answer Difficulty Paying Gas/Electric Bills: Decline to Answer Difficulty Paying for Meds: Decline to Answer Currently Unemployed: Decline to Answer Education: Decline to Answer Difficulty w/ Childcare or Family Care: Decline to Answer Living arrangements: alone Occupation/Education: other Gender identity (if verbalized by the
== END 2023-06-20 16:13 | disposition home or self-care (01) ==
LOC: ANHED 16:06
PROVIDERS: Emergency Provider Emergency Medicine; PCP Nurse Practitioner Obstetrics & Gynecology
DX: T18.128A Food in esophagus causing other injury, initial encounter (principal); J45.909 Unspecified asthma, uncomplicated; G35 Multiple sclerosis; W44.F3XA Food entering into or through a natural orifice, initial encounter
CPT/HCPCS: 99283

== ENCOUNTER 2023-08-03 14:00 | Outpatient (RCR) | payer OTHER, SELFPAY ==
--- NOTE | 2023-06-04 09:08 | OTOPEVAL1 ---
Assessment and note entered by ELMER Crain/Jose Eduardo, CHT Evaluation Information 06/04/23 Diagnosis MS Subjective Information Patient reports she is having difficulties with writing, dropping objects, and generalized weakness. She is right handed. Reports difficulties with handwriting. Noticing she is dropping objects more with the left hand. She is on disability. She reports being independent with ADLs, cooking, cleaning, and laundry. Reported Pain Level Pain Score 0: Self Report Assessment OT Clinical Summary Patient referred to OT with dx of MS with gross UB weakness and decreased functional fine motor coordination in bilateral upper extremities. She presents with a decline in ADL functioning due to these deficits. Skilled OT indicated to maximize functional UE strength and coordination via HEP instruction/progression, therapeutic exercise, and functional coordination activities. Plan of Care Interventions Therapeutic Exercise,Neuro Re-education, Therapeutic Activities OT Services Indicated Yes Treatment Frequency and 2x/week for 8 visits Duration These treatments will address the objective and functional deficits as defined above. The patient will be advanced safely and appropriately in order for the patient to progress towards his/her prior level of function. Additional exercises will be introduced and as well as a comprehensive home exercise program upon discharge, if needed, ?to ensure carryover of functional gains achieved in the clinic. This treatment plan has been reviewed and agreement upon by the patient.
--- NOTE | 2023-06-04 09:08 | OPREHPOC ---
Outpatient Therapy Plan of Care This is a Multidisciplinary Plan of Care that may contain components documented by all disciplines (PT, OT, and ST.) OT Problem 1 OT Problem #1 Knowledge Deficit OT Goal 1 Goal 1. Patient to be independent with instructed materials. Target Visit 9 OT Problem 2 OT Problem #2 Impaired Coordination OT Goal 1 Goal 1. Be able to complete the 9-hole peg test with the right hand in 25 seconds or less. 2. Be able to complete the 9-hole peg test with the left hand in 27 seconds or less. Target Visit 9 OT Problem 3 OT Problem #3 Impaired Strength OT Goal 1 Goal 1. Increase bilateral shoulder flexion/extension strength to 4+/5. 2. Increase bilateral elbow flexion/extension strength to 4+/5. 3. Increase bilateral wrist flexion/extension strength to 4+/5. 4. Increase right plan rep strength from 55 to 65 lbs. 5. Increase left plan rep strength from 44 to 54 lbs. Target Visit 9
--- NOTE | 2023-06-05 09:56 | OPREHPOC ---
Outpatient Therapy Plan of Care This is a Multidisciplinary Plan of Care that may contain components documented by all disciplines (PT, OT, and ST.) PT Problem 1 PT Problem #1 Knowledge Deficit PT Goal 1 Goal *indep with HEP PT Problem 2 PT Problem #2 Impaired Strength PT Goal 1 Goal * increase strength of R and L LE, to improve gait and balance skills: 1* single leg standing R x 6 seconds 2* single leg standing L x 6 seconds 3* perform 20 reps of mat exercises with good control of motion R and L PT Problem 3 PT Problem #3 Impaired Functional Mobility PT Goal 1 Goal 1* Patel balance score improve to 52/56 2* 2 minute walking test distance of 525' 3* pt report NO falls OT Problem 1 OT Problem #1 Knowledge Deficit OT Goal 1 Goal 1. Patient to be independent with instructed materials. Target Visit 9 OT Problem 2 OT Problem #2 Impaired Coordination OT Goal 1 Goal 1. Be able to complete the 9-hole peg test with the right hand in 25 seconds or less. 2. Be able to complete the 9-hole peg test with the left hand in 27 seconds or less. Target Visit 9 OT Problem 3 OT Problem #3 Impaired Strength OT Goal 1 Goal 1. Increase bilateral shoulder flexion/extension strength to 4+/5. 2. Increase bilateral elbow flexion/extension strength to 4+/5. 3. Increase bilateral wrist flexion/extension strength to 4+/5. 4. Increase right mineral technologist strength from 55 to 65 lbs. 5. Increase left mineral technologist strength from 44 to 54 lbs. Target Visit 9
--- NOTE | 2023-06-05 09:56 | PTOPEVAL1 ---
Assessment and note entered by Idalia Rubalcava, PT Evaluation Information Assessment Status Evaluation Diagnosis decreased gait and balance due to MS Onset September 2022 Subjective Information having more falls; have had 3 falls in the past 6 months; trip and fall on uneven ground outside; Activity: live alone; helper comes 1-2 x/wk for food, chores; pt does not drive; live in apt, with elevator; walk outside for fitness, 15 minutes, 1-3x/day. GOAL: walk better and not fall; Reported Pain Level Pain Score 0: Self Report Pain Score 0: Self Report Assessment PT Clinical Summary Meredith has the diagnosis of decreased gait and balance, with falls and MS. She lives alone, with caregiver assist. And reports her falls have occurred with walking outside on uneven surfaces and her R foot catches. With the evaluation: she has decreased motor control with both legs, R worse than L, with decreased R ankle DF; Patel balance score is 46/56 2 minute walking test distance is 450'; with single leg standing on R and L, is able to lift her foot, but not able to maintain. Skilled PT services are indicated to increase LE strength, gait and dynamic balance skills and safety, to decrease fall risk and improve mobility with education for HEP and safety. Plan of Care Interventions Gait Training,Neuro Re-education,Patient Education,Therapeutic Activities,Therapeutic Exercise PT Services Indicated Yes Treatment Frequency and 2x/wk for total of 9 visits Duration These treatments will address the objective and functional deficits as defined above. The patient will be advanced safely and appropriately in order for the patient to progress towards his/her prior level of function. Additional exercises will be introduced and as well as a comprehensive home exercise program upon discharge, if needed, ?to ensure carryover of functional gains achieved in the clinic. This treatment plan has been reviewed and agreement upon by the patient.
--- NOTE | 2023-06-20 14:58 | PCPTNOTE ---
Pt NS due to ride issues.
--- NOTE | 2023-06-27 11:56 | PCPTNOTE ---
Pt. cancelled her scheduled appointment today stating that she had fallen at home. Nacho Phillips, MPT
--- NOTE | 2023-07-02 12:10 | PCOTNOTE ---
Pt. cancelled her scheduled appointment 06-27-23 stating that she had fallen at home.
--- NOTE | 2023-07-09 11:51 | PCPTNOTE ---
pt did not show for her appt; then called 10 min after her appt time to reschedule her appt.
--- NOTE | 2023-08-03 13:43 | PTOPDC ---
Assessment and note entered by Idalia Rubalcava, PT Discharge Information Assessment Status Discharge Diagnosis decreased gait and balance due to MS Onset September 2022 Subjective Information she is stronger and ready to be done with therapy; fell one time since starting therapy- tripped over parking block; is walking 10-15 minutes outside, 1-2 x/day; have a wobble board to stand on like here in therapy; Reported Pain Level Pain Score 0: Self Report Assessment PT Clinical Summary Meredith has received 6 PT sessions. She reports one fall since attending therapy--tripped over block in parking lot. Compared to the initial evaluation: improved with LE strength, Patel balance score from 46 to 53/56; 2 minute walking test distance is less, from 450' to 415'; education completed for HEP; The goals were partially met. Discharge PT services. Plan of Care PT Services Indicated No
--- NOTE | 2023-08-03 14:58 | OTOPDC ---
Assessment and note entered by Gurjit Rodriges, ELMER/Jose Eduardo, CHT Evaluation Information Assessment Status Discharge Diagnosis MS Subjective Information Patient reports she hasn't really noticed much changes in her function. She continues to report difficulties with handwriting and that it hasn't changed. Reports she continues to notice she is dropping items with the left hand. Assessment OT Clinical Summary Patient referred to OT with dx of MS with gross UB weakness and decreased functional fine motor coordination in bilateral upper extremities. OT has been working on gross strengthening and fine motor coordination. Patient demonstrates improved functional strength and some improvements in fine motor coordination. Reviewed all home exercises today. Patient to continue to work on her exercises 3 times/week for optimal outcomes. She verbalizes excellent understanding and is in agreement with discharge today. Thank you for this referral. Plan of Care OT Services Indicated No
== END 2023-08-03 16:15 | disposition home or self-care (01) ==
LOC: ANHOT 14:00
PROVIDERS: PCP Nurse Practitioner Family
DX: G35 Multiple sclerosis (principal); R26.89 Other abnormalities of gait and mobility; R29.6 Repeated falls
CPT/HCPCS: 97110; 97112; 97116; 97161; 97165; 97530; 99199

== ENCOUNTER 2023-10-26 17:40 | Emergency (ER) | payer OTHER, SELFPAY ==
[2023-10-26 18:02] VITALS: BP 135/78; PULSE 80; RESP 20; TEMP 36.3; O2SAT 100
--- NOTE | 2023-10-26 18:38 | ED.EYEPROB ---
HPI - Eye Problem General Chief complaint: Eye Problems Stated complaint: EYE INFECTION Time Seen by Provider: 10/26/23 18:14 History of Present Illness HPI Narrative: This is a 42-year-old female who presents today with a chief complaint of bilateral eye irritation and drainage of clear yellow liquid. She states she called her cryolite recovery operator today was that go to the emergency department for evaluation of potential eye infection. She states she has been having issue with her contact lenses for last 2 weeks and has a foreign body sensation in her eyes despite not wearing her contacts. She states it does hurt to look around the light is slightly bothering her. No visual changes when she has her glasses she has full vision as normal. No blurriness or diplopia. Denies any headache, nausea, vomiting or vision changes presently. She has had some clear liquid drainage of her left eye most recently today. Denies any trauma or injuries. No retained contacts to her knowledge. No history of ocular infections or corneal abrasions in the past. Related Data Home Medications Medication Instructions Recorded Confirmed baclofen 10 mg tablet 10 mg PO BID 12/05/19 05/02/22 escitalopram oxalate 20 mg tablet 20 mg PO DAILY 12/05/19 05/02/22 fluticasone propionate 50 1 spray intranasal BID-TID 12/05/19 05/02/22 mcg/actuation nasal spray,suspension zonisamide 100 mg capsule 500 mg PO HS 12/05/19 05/02/22 ibuprofen 800 mg tablet 800 mg PO Q6H PRN Headache 03/06/21 05/02/22 tretinoin 0.05 % topical cream 1 applic topical QHS 04/25/21 05/02/22 clonazepam 0.5 mg tablet 0.5 mg PO HS 12/07/21 05/02/22 albuterol sulfate 90 mcg/actuation 2 puff inhalation Q4H PRN 02/15/22 05/02/22 aerosol inhaler (Ventolin HFA) Shortness Of Breath betamethasone valerate 0.1 % 1 applic topical DAILY 02/15/22 05/02/22 topical cream budesonide-formoterol HFA 160 2 puff inhalation BID 02/15/22 05/02/22 mcg-4.5 mcg/actuation aerosol inhaler (Symbicort) clotrimazole 1 % topical cream 1 applic topical BID 02/15/22 05/02/22 folic acid 1 mg tablet 1 mg PO DAILY 02/15/22 05/02/22 Myrbetriq 50 mg PO DAILY 05/02/22 05/02/22 aripiprazole 300 mg suspension, 300 mg IM Q28D 05/02/22 05/02/22 extended rel. intramuscular syringe (Lata Nazario) onabotulinumtoxinA 100 units IM Q90D migraines 05/02/22 05/02/22 thiamine mononitrate (vit B1) 100 100 mg PO DAILY 05/02/22 05/02/22 mg tablet (Vitamin B-1 (mononitrate)) Allergies Allergy/AdvReac Type Severity Reaction Status Date / Time No Known Allergies Allergy Verified 10/26/23 18:08 PENDING SALE TO [facility] Past Medical History Medical History Asthma Foot drop, right Multiple sclerosis Pressure ulcer of right foot, stage 2 Seizure Surgical History Surgical History History of tonsillectomy Family History Family History Mother Asthma Father Heart problem Social History Social History Social History: Patient currently lives by herself and states that her mother is her surrogate and she lives in [place]. She wishes to be a full code and she has no pets currently. Smoking status: Never smoker Additional smoking assessment comments: marijuana Alcohol intake: current Drinks per week: 2 Substance use: current Substance use type: marijuana Lack of Transportation: No Lack of Food: Often True Current Housing: I Have Housing Concerned About Future Housing: Decline to Answer Difficulty Paying Gas/Electric Bills: Decline to Answer Difficulty Paying for Meds: Decline to Answer Currently Unemployed: Decline to Answer Education: Decline to Answer Difficulty w/ Childcare or Family Care: Decline to Answer Living arrangements: alone Occupation/Education: oth
[2023-10-26 19:26] VITALS: BP 130/82; PULSE 81; RESP 16; O2SAT 100
== END 2023-10-26 19:27 | disposition home or self-care (01) ==
PROVIDERS: Emergency Provider Student in an Organized Health Care Education/Training Program; PCP Nurse Practitioner Obstetrics & Gynecology
DX: H18.823 Corneal disorder due to contact lens, bilateral (principal); J45.909 Unspecified asthma, uncomplicated; G35 Multiple sclerosis; Z79.899 Other long term (current) drug therapy
CPT/HCPCS: 99283; A9270

== ENCOUNTER 2024-02-05 17:46 | Emergency (ER) | payer OTHER, SELFPAY ==
[2024-02-05 17:49] VITALS: PULSE 76; RESP 16; TEMP 36.4; O2SAT 100
[2024-02-05 18:05] LABS: BEDSIDEPREGUCG Negative (Negative)
[2024-02-05 18:18] LABS: Add Urine Microscopic? YES; Appearance Urine Cloudy (Clear); Bacteria Urine 1+ /hpf; Bilirubin Urine Negative (Negative); Blood Urine 1+ (Negative); Color Urine Yellow (Yellow); Glucose Urine UA Negative (Negative); Ketones Urine Negative (Negative); Leukocyte Esterase Ur 2+ LEU/UL (Negative); Nitrate Urine Negative (Negative); Non Pathogenic Casts 0-2; Protein Urine Negative (Negative); Specific Grav Ur 1.018 (1.001-1.035); Squamous Epithelial Cell Urine Moderate /hpf (Few); Urobilinogen Urine 0.2 mg/dL (<2.0); WBC Urine 21-50 /hpf (0-3)
[2024-02-05] MEDS: KETOROLAC 30 MG/ML VIAL (*BKC) IM (18:41)
[2024-02-05] MEDS: HYDROcodone/acetaminophen (*CRX) 5-325 MG TABLET 1 TAB PO (18:42)
--- NOTE | 2024-02-05 20:07 | ED.BACK ---
HPI - Back Pain/Injury General Chief Complaint: Back Pain/Injury Stated Complaint: sciatic pain Time Seen by Provider: 02/05/24 18:00 History of Present Illness HPI Narrative: Patient is a 43-year-old female who presents ER with right-sided sciatic pain. Started having pain in low back/ buttock region 3 days ago But worse with bending and walking. No numbness or tingling but has pain go down into the leg. No saddle anesthesia. Patient has history of MS. Related Data Home Medications Medication Instructions Recorded Confirmed baclofen 10 mg tablet 10 mg PO BID 12/05/19 05/02/22 escitalopram oxalate 20 mg tablet 20 mg PO DAILY 12/05/19 05/02/22 fluticasone propionate 50 1 spray intranasal BID-TID 12/05/19 05/02/22 mcg/actuation nasal spray,suspension zonisamide 100 mg capsule 500 mg PO HS 12/05/19 05/02/22 ibuprofen 800 mg tablet 800 mg PO Q6H PRN Headache 03/06/21 05/02/22 tretinoin 0.05 % topical cream 1 applic topical QHS 04/25/21 05/02/22 clonazepam 0.5 mg tablet 0.5 mg PO HS 12/07/21 05/02/22 albuterol sulfate 90 mcg/actuation 2 puff inhalation Q4H PRN 02/15/22 05/02/22 aerosol inhaler (Ventolin HFA) Shortness Of Breath betamethasone valerate 0.1 % 1 applic topical DAILY 02/15/22 05/02/22 topical cream budesonide-formoterol HFA 160 2 puff inhalation BID 02/15/22 05/02/22 mcg-4.5 mcg/actuation aerosol inhaler (Symbicort) clotrimazole 1 % topical cream 1 applic topical BID 02/15/22 05/02/22 folic acid 1 mg tablet 1 mg PO DAILY 02/15/22 05/02/22 Myrbetriq 50 mg PO DAILY 05/02/22 05/02/22 aripiprazole 300 mg suspension, 300 mg IM Q28D 05/02/22 05/02/22 extended rel. intramuscular syringe (Lata Nazario) onabotulinumtoxinA 100 units IM Q90D migraines 05/02/22 05/02/22 thiamine mononitrate (vit B1) 100 100 mg PO DAILY 05/02/22 05/02/22 mg tablet (Vitamin B-1 (mononitrate)) Allergies Allergy/AdvReac Type Severity Reaction Status Date / Time No Known Allergies Allergy Verified 02/05/24 17:47 Review of Systems Constitutional: Constitutional: Reports no additional constitutional complaints Musculoskeletal: Musculoskeletal: Reports back pain, Denies arthralgias, Denies joint swelling and Denies muscle cramps Integumentary/Breasts: Skin/Breast: Reports system reviewed and no additional complaints, except as docu Neurologic: Reports system reviewed and no additional complaints, except as documented PMFSH Past Medical History Medical History Asthma Foot drop, right Multiple sclerosis Pressure ulcer of right foot, stage 2 Seizure Surgical History Surgical History History of tonsillectomy Family History Family History Mother Asthma Father Heart problem Social History Social History Social History: Patient currently lives by herself and states that her mother is her surrogate and she lives in [place]. She wishes to be a full code and she has no pets currently. Smoking status: Never smoker Additional smoking assessment comments: marijuana Alcohol intake: current Drinks per week: 2 Substance use: current Substance use type: marijuana Lack of Transportation: No Lack of Food: Often True Current Housing: I Have Housing Concerned About Future Housing: Decline to Answer Difficulty Paying Gas/Electric Bills: Decline to Answer Difficulty Paying for Meds: Decline to Answer Currently Unemployed: Decline to Answer Education: Decline to Answer Difficulty w/ Childcare or Family Care: Decline to Answer Living arrangements: alone Occupation/Education: other Gender identity (if verbalized by the patient): Female Sexual Orientation (if Verbalized by the Patient): Straight or Heterosexual Spiritual care concerns: No Agree to blood products: Yes Exam Narrative: GENERAL: Well-appearing, well-nourished, and in no acute distress. HEAD: Normocephalic, atraumatic. ENT: Mucous membranes moist. BACK: No midline tenderness of the T/Lspine. Mild SI region discomfort on the right. EXTREMITIES: Normal range of motion. No edema. 5/5 strength in the RLE at the hip/knee/ankle. SKIN: Warm, dry, no rash. NEURO: Alert and oriented x3. PSYCH: Normal mood and affect. Course Course Emergency Course: D/c home with supportive care. Toradol x 1 here. Cephalexin for UTI. Patient w/o additional concerns. Vital Signs Vital signs: Vital Signs Temperature 97.6 F 02/05/24 17:49 Pulse Rate 76 02/05/24 17:49 Respiratory Rate 16 02/05/24 17:49 Pulse Oximetry 100 02/05/24 17:49 Oxygen Delivery Room Air 02/05/24 17:49 Temperature 97.6 F 02/05/24 17:49 Pulse Rate 79 02/05/24 20:30 Respiratory Rate 14 02/05/24 20:30 Blood Pressure 132/84 02/05/24 20:30 Pulse Oximetry 99 02/05/24 20:30 Oxygen Delivery Room Air 02/05/24 17:49 MDM - Back Pain/Injury Lab Data Labs: Lab Results 02/05/24 02/05/24 Range/Units 18:03 18:06 Urine Color Yellow (Yellow) Urine Appearance Cloudy H (Clear) Urine pH 6.0 (5.0-9.0) Ur Specific [place] 1.018 (1.001-1.035) Urine Protein Negative (Negative) mg/dL Urine Glucose (UA) Negative (Negative) mg/dL Urine Ketones Negative (Negative) mg/dL Ur Blood (Man) 1+ H (Negative) Urine Nitrate Negative (Negative) Urine Bilirubin Negative (Negative) Urine Urobilinogen 0.2 (<2.0) mg/dL Leukocyte Esterase Rfl 2+ H (Negative) SERGO/UL Urine RBC 11-20 H (0-2) /hpf Urine WBC 21-50 H (0-3) /hpf Ur Squamous Epith Cells Moderate (Few) /hpf Urine Bacteria 1+ H /hpf Urine Casts 0-2 POC Urine HCG, Qual Negative (Negative) Discharge Plan Discharge Clinical Impression: UTI (urinary tract infection), Sciatica Patient Disposition: Home, Self-Care Condition: Stable Instructions: Antibiotic Form, Urinary Tract Infection in Women (ED), Sciatica (ED) Additional Instructions: Please return to the emergency department if you develop severe pain that is not controlled by pain medications or if you are unable to walk because of pain or weakness. Return to the emergency department immediately if you develop fevers, loss of bowel or bladder control (dribbling of urine or having accidents you wouldn't normally have), inability to urinate, numbness of your genital or anal area, or weakness/numbness of your legs or arms as these could all be signs of a serious medical emergency. Prescriptions: New cyclobenzaprine 10 mg tablet 10 mg PO TID PRN (Reason: muscle spasm) Qty: 20 0RF naproxen 375 mg tablet 375 mg PO BID Qty: 14 0RF cephalexin 500 mg capsule 500 mg PO Q12H Qty: 10 0RF No Action clonazepam 0.5 mg tablet 0.5 mg PO HS tretinoin 0.05 % cream 1 applic topical QHS Patient Comments: on provided med list ibuprofen 800 mg tablet 800 mg PO Q6H PRN (Reason: Headache) docusate sodium 100 mg Capsule 100 mg PO Q12HR Qty: 30 0RF betamethasone valerate 0.1 % cream 1 applic TOPICAL DAILY Rx Instructions: Acute vaginitis clotrimazole 1 % cream 1 applic TOPICAL BID Rx Instructions: Acute vaginitis folic acid 1 mg tablet 1 mg PO DAILY albuterol sulfate [Ventolin HFA] 90 mcg/actuation HFA aerosol inhaler 2 puff INHALATION Q4H PRN (Reason: Shortness Of Breath) budesonide-formoterol [Symbicort] 160-4.5 mcg/actuation HFA aerosol inhaler 2 puff INHALATION BID thiamine mononitrate (vit B1) [Vitamin B-1 (mononitrate)] 100 mg tablet 100 mg PO DAILY Abilify Maintena 300 mg suspension,extended rel syring 300 mg IM Q28D Myrbetriq tablet 50 mg PO DAILY onabotulinumtoxinA 100 units IM Q90D lacosamide 150 mg tablet 150 mg PO Q12H Qty: 60 0RF zonisamide 100 mg capsule 500 mg PO HS baclofen 10 mg tablet 10 mg PO BID fluticasone propionate 50 mcg/actuation spray,suspension 1 spray INTRANASAL BID-TID escitalopram oxalate 20 mg tablet 20 mg PO DAILY acetaminophen 500 mg tablet 500 mg PO Q6H PRN (Reason: pain) Qty: 30 0RF pantoprazole 40 mg tablet,delayed release (DR/EC) 40 mg PO BID 30 Days Qty: 60 0RF ofloxacin 0.3 % drops See Rx Instructions .ROUTE .COMPLEX Qty: 5 0RF Rx Instructions: put 1-2 drps into affected eye(s) every 2-4 h x 2 days, then 1-2 drps 4 times/day days 3-7 Follow-up/Referrals: Delfina,Radha White HUMAN RESOURCE MANAGEMENT INSTRUCTOR [Primary Care Provider] - 1 Week
[2024-02-05 20:30] VITALS: BP 132/84; PULSE 79; RESP 14; O2SAT 99
== END 2024-02-05 20:30 | disposition home or self-care (01) ==
PROVIDERS: Emergency Provider Emergency Medicine; PCP Nurse Practitioner Obstetrics & Gynecology
DX: M54.41 Lumbago with sciatica, right side (principal); N39.0 Urinary tract infection, site not specified; J45.909 Unspecified asthma, uncomplicated; G35 Multiple sclerosis; Z79.899 Other long term (current) drug therapy
CPT/HCPCS: 81001; 81025; 87086; 96372; 99283; A9270; J1885

== ENCOUNTER 2024-03-15 11:28 | Emergency (ER) | payer OTHER, SELFPAY ==
[2024-03-15 12:08] VITALS: BP 109/57; PULSE 65; RESP 17; TEMP 36.7; O2SAT 98
[2024-03-15 13:56] VITALS: BP 136/80; PULSE 82; RESP 16; TEMP 36.6; O2SAT 98
--- NOTE | 2024-03-15 14:41 | ED_ITS ---
HPI - Female Genitourinary General Chief complaint: Urogenital-Female Stated complaint: TAMPON STUCK Time Seen by Provider: 03/15/24 13:59 Source: patient Mode of arrival: ambulatory Limitations: no limitations History of Present Illness HPI Narrative: This is a 43-year-old female who presents to the ED for chief complaint of possible retained tampon. States that she does not remember taking her tampon from last month. She just started her period today and placed in new tampon. She is concerned that she may develop infection. States that she has not have any pain, discharge, fevers, chills, nausea, vomiting. No complaint overall Related Data Home Medications ?Medication ?Instructions ?Recorded ?Confirmed ?Last Taken ?Type baclofen 10 mg tablet 10 mg PO BID 12/05/19 05/02/22 03/05/21 History escitalopram oxalate 20 mg tablet 20 mg PO DAILY 12/05/19 05/02/22 03/05/21 History fluticasone propionate 50 1 spray intranasal BID-TID 12/05/19 05/02/22 03/05/21 History mcg/actuation nasal spray,suspension zonisamide 100 mg capsule 500 mg PO HS 12/05/19 05/02/22 03/05/21 History ibuprofen 800 mg tablet 800 mg PO Q6H PRN Headache 03/06/21 05/02/22 Unknown History tretinoin 0.05 % topical cream 1 applic topical QHS 04/25/21 05/02/22 Unknown History clonazepam 0.5 mg tablet 0.5 mg PO HS 12/07/21 05/02/22 Unknown History albuterol sulfate 90 mcg/actuation 2 puff inhalation Q4H PRN 02/15/22 05/02/22 Unknown History aerosol inhaler (Ventolin HFA) Shortness Of Breath betamethasone valerate 0.1 % 1 applic topical DAILY 02/15/22 05/02/22 Unknown History topical cream budesonide-formoterol HFA 160 2 puff inhalation BID 02/15/22 05/02/22 Unknown History mcg-4.5 mcg/actuation aerosol inhaler (Symbicort) clotrimazole 1 % topical cream 1 applic topical BID 02/15/22 05/02/22 Unknown History folic acid 1 mg tablet 1 mg PO DAILY 02/15/22 05/02/22 Unknown History Myrbetriq 50 mg PO DAILY 05/02/22 05/02/22 Unknown History aripiprazole 300 mg suspension, 300 mg IM Q28D 05/02/22 05/02/22 Unknown History extended rel. intramuscular syringe (Lata Nazario) onabotulinumtoxinA 100 units IM Q90D migraines 05/02/22 05/02/22 Unknown History thiamine mononitrate (vit B1) 100 100 mg PO DAILY 05/02/22 05/02/22 Unknown History mg tablet (Vitamin B-1 (mononitrate)) Allergies Allergy/AdvReac Type Severity Reaction Status Date / Time No Known Allergies Allergy Verified 02/05/24 17:47 Review of Systems Review of Systems: All systems as dictated in [facility] Past Medical History Medical History Asthma Foot drop, right Multiple sclerosis Pressure ulcer of right foot, stage 2 Seizure Surgical History Surgical History History of tonsillectomy Family History Family History Mother Asthma Father Heart problem Social History Social History Social History: Patient currently lives by herself and states that her mother is her surrogate and she lives in [place]. She wishes to be a full code and she has no pets currently. Smoking status: Never smoker Additional smoking assessment comments: marijuana Alcohol intake: current Drinks per week: 2 Substance use: current Substance use type: marijuana Lack of Transportation: No Lack of Food: Often True Current Housing: I Have Housing Concerned About Future Housing: Decline to Answer Difficulty Paying Gas/Electric Bills: Decline to Answer Difficulty Paying for Meds: Decline to Answer Currently Unemployed: Decline to Answer Education: Decline to Answer Difficulty w/ Childcare or Family Care: Decline to Answer Living arrangements: alone Occupation/Education: other Gender identity (if verbalized by the patient): Female Sexual Orientation (if Verbalized by the Patient): Straight or Heterosexual Spiritual care concerns: No Agree to blood products: Yes Exam Narrative: GENERAL: Well-appearing, well-nourished, and in no acute distress. HEAD: Normocephalic, atraumatic. EYES: PERRLA and EOMI. ENT: Nares clear, no rhinorrhea or epistaxis. Mucous membranes moist. Oropharynx without tonsillar hypertrophy exudate or other lesions. NECK: Supple. No adenopathy or masses. CHEST: No respiratory distress. Clear to auscultation. No wheezes rales or rhonchi HEART: Regular rate and rhythm. No murmur heard. Normal peripheral pulses. ABDOMEN: Soft, nontender, nondistended, normal active bowel sounds. MSK: Normal range of motion. No edema. SKIN: Warm, dry, no rash. NEURO: Alert and oriented x4. No focal deficits. PSYCH: Normal mood and affect. : Female nurse shift commander present during pelvic exam. External genitalia unremarkable. No rash. Mild amount of blood pooled in the vaginal vault. No other discharge noted. No foreign materials noted. Course Vital Signs Vital signs: Vital Signs Temperature 98.1 F 03/15/24 12:08 Pulse Rate 65 03/15/24 12:08 Respiratory Rate 17 03/15/24 12:08 Blood Pressure 109/57 L 03/15/24 12:08 Pulse Oximetry 98 03/15/24 12:08 Oxygen Delivery Room Air 03/15/24 12:08 Temperature 97.8 F 03/15/24 14:54 Pulse Rate 78 03/15/24 14:54 Respiratory Rate 16 03/15/24 14:54 Blood Pressure 126/78 03/15/24 14:54 Pulse Oximetry 100 03/15/24 14:54 Oxygen Delivery Room Air 03/15/24 12:08 MDM - Female Genitourinary MDM Narrative Medical decision making narrative: 43-year-old female who presents to the ED for pelvic evaluation to make sure she does not have retained tampon. Vitals are normal. She has no other medical complaints. Physical exam is benign. Pelvic exam was done and shows no evidence of any foreign body. She declines any STD testing. Pt will be discharged in stable condition. Return precautions given and supportive measures discussed. Pt is understanding and agreeable with plan for discharge and follow-up with PCP. Discharge Plan Discharge Clinical Impression: Encounter for medical screening examination Patient Disposition: Home, Self-Care Condition: Stable Instructions: Antibiotic Form Additional Instructions: Your exam today is reassuring. There are no retained materials. Please continue follow-up with your regular doctor regarding vaginitis. If you have any new or worsening symptoms please return to the ER for further evaluation. Patient Language: Danish Prescriptions: No Action clonazepam 0.5 mg tablet 0.5 mg PO HS tretinoin 0.05 % cream 1 applic topical QHS Patient Comments: on provided med list ibuprofen 800 mg tablet 800 mg PO Q6H PRN (Reason: Headache) docusate sodium 100 mg Capsule 100 mg PO Q12HR Qty: 30 0RF betamethasone valerate 0.1 % cream 1 applic TOPICAL DAILY Rx Instructions: Acute vaginitis clotrimazole 1 % cream 1 applic TOPICAL BID Rx Instructions: Acute vaginitis folic acid 1 mg tablet 1 mg PO DAILY albuterol sulfate [Ventolin HFA] 90 mcg/actuation HFA aerosol inhaler 2 puff INHALATION Q4H PRN (Reason: Shortness Of Breath) budesonide-formoterol [Symbicort] 160-4.5 mcg/actuation HFA aerosol inhaler 2 puff INHALATION BID thiamine mononitrate (vit B1) [Vitamin B-1 (mononitrate)] 100 mg tablet 100 mg PO DAILY Abilify Maintena 300 mg suspension,extended rel syring 300 mg IM Q28D Myrbetriq tablet 50 mg PO DAILY onabotulinumtoxinA 100 units IM Q90D lacosamide 150 mg tablet 150 mg PO Q12H Qty: 60 0RF cyclobenzaprine 10 mg tablet 10 mg PO TID PRN (Reason: muscle spasm) Qty: 20 0RF naproxen 375 mg tablet 375 mg PO BID Qty: 14 0RF cephalexin 500 mg capsule 500 mg PO Q12H Qty: 10 0RF zonisamide 100 mg capsule 500 mg PO HS baclofen 10 mg tablet 10 mg PO BID fluticasone propionate 50 mcg/actuation spray,suspension 1 spray INTRANASAL BID-TID escitalopram oxalate 20 mg tablet 20 mg PO DAILY acetaminophen 500 mg tablet 500 mg PO Q6H PRN (Reason: pain) Qty: 30 0RF pantoprazole 40 mg tablet,delayed release (DR/EC) 40 mg PO BID 30 Days Qty: 60 0RF ofloxacin 0.3 % drops See Rx Instructions .ROUTE .COMPLEX Qty: 5 0RF Rx Instructions: put 1-2 drps into affected eye(s) every 2-4 h x 2 days, then 1-2 drps 4 times/day days 3-7 Follow-up/Referrals: Delfina,Radha White PARARESCUE MANAGER [Primary Care Provider] - Time of Disposition: 14:42
[2024-03-15 14:54] VITALS: BP 126/78; PULSE 78; RESP 16; TEMP 36.6; O2SAT 100
--- OUTSIDE RECORDS SUMMARY | 2024-03-22 16:34 | XMS_ITS | Clinical Summary ---
Author Organization [facility] Address [address] [place] [address] Care Team Providers Care Irrigation Engineer Name Role Phone Joy Sheppard PA-C Primary Care Provider [phone] Source Comments [facility],non-owned Affiliates and Associated Physician Practices is amultiple site organization consisting of ambulatory clinics and hospital sitesin [place], [place], [place] and [place]. This disclosure is being madepursuant to the Care Everywhere program and may not contain all information available regarding this patient. Last updated 17.[facility] Allergies No known active allergies Medications * Be aware that medications may not be up to date on this document. Alwaysverify current medications with the patient. Medication Sig Dispensed Refills Start Date End Date Status budesonide-formoter ol (Symbicort) 160-4.5 MCG/ACT inhaler Inhale 2 (two) puffs by mouth 2 times daily for 30 days 20.4 g 12/13/2023 Active albuterol HFA (Proventil HFA) 108 (90 Base) MCG/ACT inhaler Inhale 2 (two) puffs by mouth every 6 hours as needed 13.4 g 12/13/2023 Active zonisamide (Zonegran) 100 MG capsuleIndications: Focal Epilepsy Take 5 (five) capsules by mouth at bedtime for 30 days Reasons: Focal Epilepsy 150 capsule 12/13/2023 Active escitalopram (Lexapro) 20 MG tablet Take 1 (one) tablet by mouth once daily for 30 days 30 tablet 12/14/2023 Active fluticasone propionate (Flonase) 50 MCG/ACT nasal spray [place] 2 (two) sprays into each nostril once daily for 30 days 16 g 12/14/2023 Active lacosamide (Vimpat) 100 MG tablet Take 1 (one) tablet by mouth 2 times daily for 30 days 60 tablet 12/14/2023 Active benztropine (Cogentin) 1 MG tabletIndications:D rug-Induced Extrapyramidal Reaction Take 1 (one) tablet by mouth once daily for 15 days Reasons: Extrapyramidal Reaction caused by Medications 15 tablet 01/29/2024 Active risperiDONE (RisperDAL) 2 MG tabletIndications:S chizophrenia Take 1 (one) tablet by mouth at bedtime Reasons: Schizophrenia 60 tablet 1 01/29/2024 05/29/19 25 Active Active Problems Patient Care Coordination No te Formatting of this note migh t be different from the original. [facility] 01/2016 Problem Noted Date Diagnosed Date Hypokalemia 11/26/2023 Agitation 11/26/2023 Paranoia 11/26/2023 Callus of toe 06/18/2023 06/22/2023 Aggressive behavior 11/21/2022 Paranoid 11/21/2022 Hoarse 09/13/2022 12/21/2022 Xerostomia 09/13/2022 12/21/2022 Right foot drop 08/03/2021 At risk for medication noncompliance 05/13/2021 Polysubstance abuse 04/08/2021 Acute cystitis without hematuria 04/08/2021 Bizarre behavior 04/08/2021 COVID-19 04/08/2021 Overactive bladder 03/31/2021 Chronic obstructive pulmonary disease, unspecifi ed 03/16/2021 Other abnormalities of gait and mobility 021 Vitamin D deficiency, unspecified 03/11/2021 Constipation, unspecified 03/09/2021 Disorientation, unspecified 03/09/2021 Frontal lobe and executive function deficit 02/17 Muscle weakness (generalized) 03/09/2021 Other fracture of upper and lower end of right fibula, initial encounter for closed fracture 03/09/2021 Pain, unspecified 03/09/2021 Unspecified fracture of lowe r end of right tibia, initial encounter for closed fracture 03/09/2021 Altered mental status 02/04/2021 Suspected condition 01/08/2021 Overview (06/21/2021): SUBVL - Substance abuse - very low Added by RAMP Suspected Conditions SUBL - Substance abuse - low Added by RAMP Suspected Conditions KATELYN - Gastrointestinal - low Added by RAMP Suspected Conditions SKCVL - Skeletal - very low Added by RAMP Suspected Conditions RENL - Renal - low Added by RAMP Suspected Conditions PULL - Pulmonary - low Added by RAMP Suspected Conditions PSYML - Psychiatric - medium low Added by RAMP Suspected Conditions PSYM - Psychiatric - medium Added by RAMP Suspected Conditions Acne vulgaris 05/07/2020 Assessment & Plan (05/07/2020 9:04 AM PROGRAM INSTRUCTOR): - Much improved, face mostly clear today - Continue Tretinoin 0.05% cream - Advised to apply at [facility] if able - Continue BP wash to face QD - Okay to hold off on Erythro soln at this time, pt not using Rash and other nonspecific skin eruption 021 Assessment & Plan (05/07/2020 9:05 AM PROGRAM INSTRUCTOR): LLE, much improved, mostly PIH today - Ddx: Resolving GA vs nummular eczema - Discussed etiology and typical time-course - Advised strict sun protection to prevent worsening - Okay to hold off on Halobetasol cream at this time. If eruption recurs, is raised, or itchy again, then re-start BID PRN. Xerosis cutis 05/07/2020 Assessment & Plan (05/07/2020 9:04 AM PROGRAM INSTRUCTOR): Primarily BLE - Encouraged frequent moisturizing with bland emollients, recommended Vaseline - Avoid irritating, fragrant, or drying products - Dry skin care handout given Tinea pedis 04/02/2020 Pain of toe of right foot 11/04/2019 Curly toe 06/24/2019 Epileptic seizure 06/24/2019 Open wound of toe 06/24/2019 Epilepsy 06/24/2019 06/22/2023 Depression 06/16/2019 Seizures 04/15/2019 Major neurocognitive disorder 03/18/2019 Psychosis 01/27/2019 Cannabis use disorder, severe, dependence 2018 Alcohol use disorder, mild, abuse 01/27/2019 Asthma 12/04/2017 Paranoid schizophrenia 12/04/2017 ANIA (internuclear ophthalmoplegia), bilateral MS (multiple sclerosis) 10/10/2016 Special screening examination for other infectio us diseases 04/10/2016 Seborrheic keratoses 03/02/2016 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 Disorder of skin 06/17/2006 Resolved Problems Problem Noted Date Diagnosed Date Resolved Date Acute vaginitis 05/16/2019 07/21/2019 Hematuria, unspecified 05/16/201907/20 Cannabis abuse, continuous use 03/18/2019 07/21/2019 High risk medication use 02/23/201606/2019 Encounters Date Type Department Care Team Description 01/29/2024 Telephone [facility] [address] [place] [address] Michell Cortez MD Medication Issue 01/10/2024 Travel 01/01/2024 Orders Only [facility] - Infusion [address] [place] [address] Deja Godinez, AngelineD from Last 3 Months Immunizations Name Administration Dates Next Due Covid [employer] primary monoval ent 12+ yr 0.3mL Purple cap 05/27/2020,04/30/2020 FLU VACCINE QUAD IIV4 SPLIT 0.25 ML IM 01/05/2020 INFLUENZA VACCINE, CELL CULT URE, QUADR. (FLUCELVAX QUADRIVALENT; 6MO+) (CCIIV4) 06/09/2019 INFLUENZA VACCINE, QUADR. (F LUZONE; FLULAVAL; FLUARIX; AFLURIA QUADRIVALENT; 6MO+), 0.5 ML (IIV4) 02/06/2023,12/15/2021,12/02/2020,2019,12/10/2018 PNEUMOCOCCAL PPSV23 08/18/2016 Family History Medical History Relation Name Comments None Known Brother CAD (Coronary Artery Disease) Father None Known Maternal Aunt None Known Maternal Grandfather None Known Maternal Grandmother None Known Maternal Uncle None Known Mother None Known Other None Known Paternal Aunt None Known Paternal Grandfather None Known Paternal Grandmother None Known Paternal Uncle None Known Sister None Known Son 14 None Known half-sister 29 Asthma Neg Hx CVA Neg Hx Cancer - Breast Neg Hx Cancer - Other Neg Hx Cancer - Skin, Melanoma Neg Hx Cancer - Skin, Non Melanoma Neg Hx Depression Neg Hx Eczema Neg Hx Hemophilia Neg Hx Psoriasis Neg Hx Seizures Neg Hx Relation Name Status Comments Brother Alive Father Alive Maternal Aunt Maternal Grandfather Maternal Grandmother Maternal Uncle Mother Alive Other Paternal Aunt Paternal Grandfather Paternal Grandmother Paternal Uncle Sister Alive Son 14 Alive half-sister 29 Alive Social History Tobacco Use Types Packs/Day Years Used Date Smoking Tobacco: Never Smokeless Tobacco: Never Tobacco Cessation:Counseling Given: Yes Alcohol Use Standard Drinks/Week Comments Not Currently 0 (1 standard drink = 0.6 oz pur e alcohol) socially 1 X q 6 months AUDIT-C Answer Date Recorded Q1: How often do you have a drink containing alc ohol? Monthly or less 11/27/2023 Q2: How many drinks containi ng alcohol do you have on a typical day when you are drinking? 1 or 2 11/27/2023 Q3: How often do you have si x or more drinks on one occasion? Monthly 11/27/2023 Overall Financial Resource Strain (CARDIA) Answe r Date Recorded How hard is it for you to pa y for the very basics like food, housing, medical care, and heating? Not hard at all 11/27/2023 PHQ-2 Answer Date Recorded Patient Health Questionnaire-2 Score 1 11/26/2023 [facility] - Occupational Stress Questionnaire Answer Date Recorded Do you feel stress - tense, restless, nervous, or anxious, or unable to sleep at night because your mind is troubled all the time - these days? Only a little 11/27/2023 Hunger Vital Sign Answer Date Recorded Within the past 12 months, y ou worried that your food would run out before you got the money to buy more. Never true 11/27/19 24 Within the past 12 months, t he food you bought just didn't last and you didn't have money to get more. Never true 11/27/2023 PRAPARE - Transportation Answer Date Re corded In the past 12 months, has l ack of transportation kept you from medical appointments or from getting medications? Yes 11/17 In the past 12 months, has l ack of transportation kept you from meetings, work, or from getting things needed for daily living? Yes 11/27/2023 Housing Stability Vital Sign Answer Bandar e Recorded In the last 12 months, was t here a time when you were not able to pay the mortgage or rent on time? No 11/27/2023 In the last 12 months, how many places have you lived? 1 11/27/2023 In the last 12 months, was t here a time when you did not have a steady place to sleep or slept in a senior living (including now)? No 11/27/2023 Education Answer Date Recorded What is the highest level of school you have completed or the highest degree you have received? Bachelor's degree (e.g., BA, AB, BS) 05/14/2021 Sex and Gender Information Value Date Recorded Sex Assigned at Female 06/22/2023 9:58 AM CDT Gender Identity Female 06/22/2023 9:58 AM CDT Sexual Orientation Straight 06/22/2023 9: 58 AM CDT Last Filed Vital Signs Vital Sign Reading Time Taken Comments Blood Pressure 120/85 12/14/2023 8:18 AM CDT Pulse 108 12/14/2023 8:18 AM CDT Temperature 37 ??C (98.6 ??F) 12/14/2023 8:18 AM CDT Respiratory Rate 16 12/14/2023 8:18 AM CDT Oxygen Saturation 98% 12/14/2023 8:18 AM CDT Inhaled Oxygen Concentration 100% 04/12/2021 1 1:47 AM PROGRAM INSTRUCTOR Weight 58 kg (127 lb 12.8 oz) 11/27/2023 12:58 P M CDT Height 165.1 cm (5' 5 ) 12/10/2023 7:01 PM CDT Body Mass Index 21.27 11/27/2023 12:58 PM CDT Plan of Treatment Upcoming Encounters Date Type Department Care Team (Late st Contact Info) Description 04/04/2024 8:30 AM PROGRAM INSTRUCTOR Office Visit [facility] - Dermatology [address] [place] [address], [place] [id number] Marlys Zaragoza MD [address] [place] [address] [address] [place] [phone] 09/03/2024 9:00 AM CDT Office Visit [facility] - Neurology [address] [place] [address] [place] [phone] Melissa Crook, HOG SLAUGHTERER-MOTOR EQUIPMENT CAPTAIN [address] [place] [phone] Health Maintenance Due Date Last Done Comments DTAP/TDAP/TD VACCINES (1 - Tdap) 11/29/1999 HEPATITIS B VACCINE (1 of 3 - 19+ 3-dose series) 11/29/1999 PNEUMOCOCCAL VACCINE (2 of 2 - PCV) 08/18/2017 08/18/2016 MAMMOGRAM 08/27/2020 08/27/2018, 07/31/2017 PAP with HPV 01/30/2021 01/31/2016 COVID-19 VACCINE (3 - season) 2023 05/27/2020, 04/30/2020 INFLUENZA VACCINE (#1) 2023 , 12/15/2021, 12/02/2020, Additional history exists DEPRESSION SCREENING 03/19/2024 08/31/2023, 01/09/2023, 01/05/2023, Additional history exists LIPID TESTING 12/02/2028 12/03/2023, 05/17/2021 ZOSTER VACCINE (1 of 2) 2030 HEPATITIS C SCREENING Completed 01/16/2022 , 10/31/2018, 07/12/2016, Additional history exists HIV SCREENING Completed 01/16/2022, 02/16, 01/31/2016 HIB VACCINE Aged Out No longer eligi ble based on patient's age to complete this topic HPV VACCINE Aged Out No longer eligi ble based on patient's age to complete this topic MENINGOCOCCAL VACCINE Aged Out No bebeto marla eligible based on patient's age to complete this topic Procedures Procedure Name Priority Date/Time Associated Diagnosis Comments LIPID PROFILE Routine 12/03/2023 5:45 AM CDT HEPATITIS C AB W/RFLX TO HCV RNA QN PCR Routine 01/16/2022 2:00 PM CDT Trichomoniasis of vagina Screening for STD (sexually transmitted disease) HIV-1 HIV-2 ANTIBODY + HIV P24 AG PANEL Routine 01/16/2022 2:00 PM CDT Trichomoniasis of vagina Screening for STD (sexually transmitted disease) PAP LB HPV HR DNA Routine 01/31/2016 1:5 4 PM PROGRAM INSTRUCTOR Well woman exam from Last 3 Months or Most Recently Relevant to Health Maintenance Results * (ABNORMAL) LIPID PROFILE (12/03/2023 5:45 AM CDT) Cholesterol Total 215(H) <200 mg/dL 12/03/2023 6:[address] [facility] HDL 60 >40 mg/dL 12/03/2023 6:21 AM [facility] Comment: ATP III Classification of HDL Cholesterol: ? <40 mg/dL: ??Considered a major risk factor. ? >60 mg/dL: ??Considered a negative risk factor. ? LDL Calculated 139(H) <100 mg/dL 12/03/2023 6:21 AM [facility] Comment: ATP III Classification of LDL Cholesterol: ?<100 mg/dL: ??Optimal ? 100 - 129 mg/dL: ??Near Optimal/Above Optimal ? 130 - 159 mg/dL: ??Borderline High ? 160 - 189 mg/dL: ??High ?>190 mg/dL: ??Very High ? Triglycerides 78 <150 mg/dL 12/03/2023 6:21 AM CDT [facility] Comment: ATP III Classification of Triglycerides: ?<150 mg/dL: ??Normal ? 150 - 199 mg/dL: ??Borderline High ? 200 - 400 mg/dL: ??High ?>500 mg/dL: ??Very High Blood BLOOD SPECIMEN / Unknown Venipuncture / Unknown 12/03/2023 5:45 AM CDT 12/03/2023 5:51 AM CDT May Chilel DO LAB - CHEMISTRY MAGDALENA DOBBS [facility] [address] [place] [address], [facility] [phone] * HEPATITIS C AB W/RFLX TO HCV RNA QN PCR (01/16/2022 2:00 PM CDT) Hepatitis C Antibody NON-REACTI VE NON-REACT PAM [facility] Signal to Cut-Off 0.02 <1.00 [facility] Comment: HCV antibody was non-reactive. There is no laboratory evidence of HCV infection. In most cases, no further action is required. However, if recent HCV exposure is suspected, a test for HCV RNA (test code 60700) is suggested. For additional information please refer to http://education.Incap/faq/YTG96c8 (This link is being provided for informational/ educational purposes only.) Test Performed at: [facility] [address] [place], [place] ??[id number] BETTE ALVARES DO,MPH Blood BLOOD SPECIMEN / Unknown 12/23/2021 10:02 AM CDT Daily Calero MD LAB - CHEMISTRY MAGDALENA DOBBS Performing Organization Address [facility] de Phone Number [place] [address] [place] [address] * HIV-1 HIV-2 ANTIBODY + HIV P24 AG PANEL (01/16/2022 2:00 PM CDT) HIV Screen 4th Generation w Reflex NON-REACT PAM NON-REACT PAM [facility] Comment: HIV-1 antigen and HIV-1/HIV-2 antibodies were not detected. There is no laboratory evidence of HIV infection. PLEASE NOTE: This information has been disclosed to you from records whose confidentiality may be protected by state law. ??If your state requires such protection, then the state law prohibits you from making any further disclosure of the information without the specific written consent of the person to whom it pertains, or as otherwise permitted by law. A general authorization for the release of medical or other information is NOT sufficient for this purpose. ?? For additional information please refer to http://education.Incap/faq/ZLH316 (This link is being provided for informational/ educational purposes only.) The performance of this assay has not been clinically validated in patients less than 2 years old. Test Performed at: [facility] [address] [place], [place] ??[id number] BETTE ALVARES DO,MPH Blood BLOOD SPECIMEN / Unknown 12/23/2021 10:02 AM CDT Daily Calero MD LAB - CHEMISTRY MAGDALENA DOBBS Performing Organization Address [facility] [[email or web address]] de Phone Number [place] [address] [place] [address] * PAP SMEAR LB HPV HR (PO REF LAB) (01/31/2016 1:54 PM PROGRAM INSTRUCTOR) Diagnosis Comment 02/04/2016 6:10 PM PROGRAM INSTRUCTOR [facility] Comment: NEGATIVE FOR INTRAEPITHELIAL LESION AND MALIGNANCY. REACTIVE CELLULAR CHANGES AND/OR REPAIR ARE PRESENT. Specimen Adequacy Comment 016 6:10 PM PROGRAM INSTRUCTOR [facility] Comment: Satisfactory for evaluation. ??Endocervical and/or squamous metaplastic cells (endocervical component) are present. Performed by Comment 02/04/2016 6:10 PM PROGRAM INSTRUCTOR [facility] Comment:Floridalma Peterson ytotechnologist (ASCP) Electronically Signed by Comment 02/04/2016 6:10 PM PROGRAM INSTRUCTOR [facility] Comment:Brielle Brock MD, P athologist Comment . 02/04/2016 6:10 PM PROGRAM INSTRUCTOR [facility] Note Comment 02/04/2016 6:10 PM PROGRAM INSTRUCTOR [facility] Comment: The Pap smear is a screening test designed to aid in the detection of premalignant and malignant conditions of the uterine cervix. ??It is not a diagnostic procedure and should not be used as the sole means of detecting cervical cancer. ??Both false-positive and false-negative reports do occur. Human papillomavirus High Risk Negative Negative 02/04/2016 6:10 PM PROGRAM INSTRUCTOR [facility] Comment: This high-risk HPV test detects thirteen high-risk types (16/18/31/33/35/39/45/51/52/56/58/59/68) without differentiation. Pathology/Cytolo gy MICROSCOPIC CYTOLOGIC EXAMINATION OF SMEAR OF SPECIMEN FROM FEMALE GENITAL TRACT PREPARED USING PAPANICOLAOU TECHNIQUE / Unknown Collection / Unknown 01/31/2016 1:54 PM PROGRAM INSTRUCTOR 01/31/2016 2:05 PM PROGRAM INSTRUCTOR Narrative [facility] - 02/04/2016 6:10 PM PROGRAM INSTRUCTOR Performed at: ??01 - [facility] [address] ??[id number] Well Driller Helper: Tamar Onofre MD, Phone: ??[phone] Performed at: ??02 - [facility] [address] ??[id number] Well Driller Helper: Tamar Onofre MD, Phone: ??[phone] Specimen Comment: Source.............[employer] Specimen Comment: No. of containers..01 CYTYC Thin Prep Vial Osmar Hudson MD LAB - PATHOLOGY/CYTO LOGY ORDERABLES [facility] [address] [place] [address] from Last 3 Months or Most Recently Relevant to Health Maintenance Advance Directives * Full Code (Latest Code Status on File) Date Activated Date Inactivated Comments 11/27/2023 1:42 PM 12/14/2023 5:51 PM * Full Code Date Activated Date Inactivated Comments 05/13/2021 11:45 PM 05/25/2021 8:06 PM Care Teams Irrigation Engineer Relationship Specialty Start Date End Date Joy Sheppard PA-C [address] [place] [address] PCP - General 01/29/24
--- OUTSIDE RECORDS SUMMARY | 2024-03-22 16:34 | XMS_ITS | Referral Summary ---
Author Organization [facility] Address [address] [place] [address] Care Team Providers Care Human Resources Support Specialist Name Role Phone Joy Sheppard PA-C Primary Care Provider [phone] Source Comments [facility],non-owned Affiliates and Associated Physician Practices is amultiple site organization consisting of ambulatory clinics and hospital sitesin [place], [place], [place] and [place]. This disclosure is being madepursuant to the Care Everywhere program and may not contain all information available regarding this patient. Last updated 17.[facility] Encounters Date Type Department Care Team Description 01/29/2024 Telephone [facility] [address] [place] [phone] Michell Cortez MD Medication Issue 01/10/2024 Travel 01/01/2024 Orders Only [facility] - Infusion [address] [place] [phone] Deja Godinez PharmD from Last 3 Months Allergies No known active allergies Medications * [...] fluticasone propionate (Flonase) 50 MCG/ACT nasal spray [place] 2 (two) sprays into each nostril once [...] migh t be different from the original. [facility] 01/2016 Problem Noted Date Diagnosed Date Hypokalemia [...] 03/16/2021 Other abnormalities of gait and mobility Vitamin D deficiency, unspecified 03/11/2021 Constipation, unspecified [...] 05/07/2020 Assessment & Plan (05/07/2020 9:04 AM NURSE EMERGENCY ROOM): - Much improved, face mostly clear today - Continue Tretinoin 0.05% cream - Advised to apply at [facility] if able - Continue BP wash to face QD - Okay to hold off on Erythro soln at this time, pt not using Rash and other nonspecific skin eruption 021 Assessment & Plan (05/07/2020 9:05 AM NURSE EMERGENCY ROOM): LLE, much improved, mostly PIH today - Ddx: Resolving GA vs nummular eczema - Discussed etiology and typical time-course - Advised strict sun protection to prevent worsening - Okay to hold off on Halobetasol cream at this time. If eruption recurs, is raised, or itchy again, then re-start BID PRN. Xerosis cutis 05/07/2020 Assessment & Plan (05/07/2020 9:04 AM NURSE EMERGENCY ROOM): Primarily BLE - Encouraged frequent moisturizing with [...] 03/18/2019 07/21/2019 High risk medication use 02/23/201606/2019 Immunizations Name Administration Dates Next Due Naked primary monoval ent 12+ yr 0.3mL Purple cap 05/27/2020,04/30/2020 FLU VACCINE QUAD IIV4 SPLIT 0.25 ML IM 01/05/2020 INFLUENZA VACCINE, CELL CULT URE, QUADR. (FLUCELVAX QUADRIVALENT; 6MO+) (CCIIV4) 06/09/2019 INFLUENZA VACCINE, QUADR. (F LUZONE; FLULAVAL; FLUARIX; AFLURIA QUADRIVALENT; 6MO+), 0.5 ML (IIV4) 02/06/2023,12/15/2021,12/02/2020,2019,12/10/2018 PNEUMOCOCCAL PPSV23 08/18/2016 Social History Tobacco Use Types Packs/Day Years [...] Recorded Patient Health Questionnaire-2 Score 1 11/26/2023 [facility] - Occupational Stress [...] place to sleep or slept in a correction (including now)? No 11/27/2023 Education Answer Date [...] Oxygen Concentration 100% 04/12/2021 1 1:47 AM NURSE EMERGENCY ROOM Weight 58 kg (127 lb 12.8 oz) 11/27/2023 12:58 P M CDT Height 165.1 cm (5' 5 ) 12/10/2023 7:01 PM CDT Body Mass Index 21.27 11/27/2023 12:58 PM CDT Functional Status Functional Status Response Date of Assess ment Is person deaf or have serious hearing difficult y? No 11/27/2023 Is person blind or have serious difficulty seein g? No 11/27/2023 Does person have serious dif ficulty walking/climbing stairs? No 11/27/2023 Does person have difficulty dressing/bathing? No 11/27/2023 Does person have difficulty doing errands alone? No 11/27/2023 Cognitive Status Response Date of Assessm ent Does person have difficulty concentrating/remembering/making decisions? Yes 11/27/2023 Plan of Treatment Upcoming Encounters Date Type Department Care Team (Late st Contact Info) Description 04/04/2024 8:30 AM NURSE EMERGENCY ROOM Office Visit [facility] - Dermatology [address] [place] [address], [place] [phone] [place] [address] [place] [address] [address] [place] [phone] 09/03/2024 9:00 AM CDT Office Visit [facility] - Neurology [address] [place] [address], [place] [phone] Melissa Crook APRN-CLAIM AUDITOR [address] [place] [phone] Procedures Procedure Name Priority Date/Time Associated Diagnosis [...] HR DNA Routine 01/31/2016 1:5 4 PM NURSE EMERGENCY ROOM Well woman exam from Last 3 Months or Most Recently Relevant to Health Maintenance Results * (ABNORMAL) LIPID PROFILE (12/03/2023 5:45 AM CDT) Cholesterol Total 215(H) <200 mg/dL 12/03/2023 6:21 AM CDT [facility] HDL 60 >40 mg/dL 12/03/2023 6:21 AM CDT [facility] Comment: ATP III Classification of HDL Cholesterol: ? <40 mg/dL: ??Considered a major risk factor. ? >60 mg/dL: ??Considered a negative risk factor. ? LDL Calculated 139(H) <100 mg/dL 12/03/2023 6:21 AM [facility] Comment: ATP III Classification of LDL Cholesterol: ?<100 mg/dL: ??Optimal ? 100 - 129 mg/dL: ??Near Optimal/Above Optimal ? 130 - 159 mg/dL: ??Borderline High ? 160 - 189 mg/dL: ??High ?>190 mg/dL: ??Very High ? Triglycerides 78 <150 mg/dL 12/03/2023 6:21 AM T [facility] Comment: ATP III Classification of Triglycerides: ?<150 mg/dL: ??Normal ? 150 - 199 mg/dL: ??Borderline High ? 200 - 400 mg/dL: ??High ?>500 mg/dL: ??Very High Blood BLOOD SPECIMEN / Unknown Venipuncture / Unknown 12/03/2023 5:45 AM CDT 12/03/2023 5:51 AM CDT May Chilel DO LAB - CHEMISTRY [facility] Performing Organization Address City/State/[facility] Co de Phone Number [facility] [address] [place] [phone], [facility] [phone] * HEPATITIS C AB W/RFLX TO HCV RNA QN PCR (01/16/2022 2:00 PM CDT) Hepatitis C Antibody NON-REACTI VE NON-REACT PAM [facility] Signal to Cut-Off 0.02 <1.00 [facility] Comment: HCV antibody was non-reactive. There is no laboratory evidence of HCV infection. In most cases, no further action is required. However, if recent HCV exposure is suspected, a test for HCV RNA (test code 81260) is suggested. For additional information please refer to http://olook.GoodRx/faq/FOC83c5 (This link is being provided for informational/ educational purposes only.) Test Performed at: [facility] [address] [place], [place] ??[phone] BETTE ALVARES DO,MPH Blood BLOOD SPECIMEN / Unknown 12/23/2021 10:02 AM CDT Daily Calero MD LAB - CHEMISTRY [facility] DOBBS Performing Organization Address [facility] Co de Phone Number [facility] [address] [place] [address] * HIV-1 HIV-2 ANTIBODY + HIV P24 [...] ?? For additional information please refer to http://olook.GoodRx/faq/VZS097 (This link is being provided for informational/ educational purposes only.) The performance of this assay has not been clinically validated in patients less than 2 years old. Test Performed at: [facility] [address] [place], [place] ??[phone] BETTE ALVARES DO,MPH Blood BLOOD SPECIMEN / Unknown 12/23/2021 10:02 AM CDT Daily Calero MD LAB - CHEMISTRY [facility] Performing Organization Address [facility] Co de Phone Number [facility] [phone] [place] [address] * PAP SMEAR LB HPV HR (PO REF LAB) (01/31/2016 1:54 PM NURSE EMERGENCY ROOM) Diagnosis Comment 02/04/2016 6:10 PM NURSE EMERGENCY ROOM [facility] Comment: NEGATIVE FOR INTRAEPITHELIAL LESION AND MALIGNANCY. REACTIVE CELLULAR CHANGES AND/OR REPAIR ARE PRESENT. Specimen Adequacy Comment 016 6:10 PM NURSE EMERGENCY ROOM [facility] Comment: Satisfactory for evaluation. ??Endocervical and/or squamous metaplastic cells (endocervical component) are present. Performed by Comment 02/04/2016 6:10 PM NURSE EMERGENCY ROOM [facility] Comment:Floridalma Peterson ytotechnologist (ASCP) Electronically Signed by Comment 02/04/2016 6:10 PM NURSE EMERGENCY ROOM [facility] Comment:Brielle Brock MD, P athologist Comment . 02/04/2016 6:10 PM NURSE EMERGENCY ROOM [facility] Note Comment 02/04/2016 6:10 PM NURSE EMERGENCY ROOM [facility] Comment: The Pap smear is a screening test designed to aid in the detection of premalignant and malignant conditions of the uterine cervix. ??It is not a diagnostic procedure and should not be used as the sole means of detecting cervical cancer. ??Both false-positive and false-negative reports do occur. Human papillomavirus High Risk Negative Negative 02/04/2016 6:10 PM NURSE EMERGENCY ROOM [facility] Comment: This high-risk HPV test detects thirteen high-risk types (16/18/31/33/35/39/45/51/52/56/58/59/68) without differentiation. Pathology/Cytolo gy MICROSCOPIC CYTOLOGIC EXAMINATION OF SMEAR OF SPECIMEN FROM FEMALE GENITAL TRACT PREPARED USING PAPANICOLAOU TECHNIQUE / Unknown Collection / Unknown 01/31/2016 1:54 PM NURSE EMERGENCY ROOM 01/31/2016 2:05 PM NURSE EMERGENCY ROOM Narrative [facility] - 02/04/2016 6:10 PM NURSE EMERGENCY ROOM Performed at: ??01 - [address] ??[id number] Account Technician: Tamar Onofre MD, Phone: ??[phone] Performed at: ??02 - [facility] [address] [place] ??[id number] Account Technician: Tamar Onofre MD, Phone: ??[phone] Specimen Comment: Source.............Endocervix Specimen Comment: No. of containers..01 CYTYC Thin Prep Vial Osmar Hudson MD LAB - PATHOLOGY/CYTO LOGY ORDERABLES [facility] [address] [place] [address] from Last 3 Months or Most Recently Relevant to Health Maintenance Advance Directives * Full Code (Latest Code Status on File) Date Activated Date Inactivated Comments 11/27/2023 1:42 PM 12/14/2023 5:51 PM * Full Code Date Activated Date Inactivated Comments 05/13/2021 11:45 PM 05/25/2021 8:06 PM Care Teams Human Resources Support Specialist Relationship Specialty Start Date End Date Joy Sheppard PA-C [address] [place] [phone] PCP - General 01/29/24
--- OUTSIDE RECORDS SUMMARY | 2024-03-22 16:34 | XMS_ITS | Data Portability ---
Author Organization [place] - [facility], Main Office Address [address] [place] [address] Assessment Encounter Date Assessment Date Assessment LastModified by Organization Details LastModified Time 06/14/2023 06/14/2023 This note is dictated and transcribed by [employer] Software. Fisher Seal variances may occur. Despite proofreading, typographical errors may occur. Occasional wrong-word or '[id number]' substitutions may have occurred due to the inherent limitations of voice recording. Read the chart carefully and recognize, using context, where substitutions have occurred. [email or web address] Not available 06/18/2023 09:19:38 Plan of Treatment Reminders Order Date Submit Date Provider Last Modified By Organization Details Last Modified Time Details Appointments None recorded. Lab None recorded. Referral None recorded. Procedures None recorded. Surgeries None recorded. Imaging None recorded. Medication Orders ibuprofen 800 mg tablet 2022 023 [id number], [address], [place], [phone], 08:38:32 Symbicort 160 mcg-4.5 mcg/actuat ion HFA aerosol inhaler 2022 023 [id number], [address], [place], [phone], 09:43:33 Patient TargetsNo targets recorded. Patient Instructions Encounter Date Encounter Id Patient Instructions Last Modified By Organization Details Last Modified Time 08/07/2022 [id number] FU in 6 mo fr follow up. Asthma, migraine, epilepsy, ms, schizophrenia. Not available 08/07/2022 08:38:59 02/06/2023 [id number] Fu in 4 mo with new provider. Not available 02/06/2023 10:05:40 03/28/2023 [id number] 2 mo fu to see new provider. Pt wishes to follow akiko. Not available 03/28/2023 09:20:55 Reason for Referral None Reported. Results Created Date Observation Date Name Description Value Unit Range Abnormal Flag Note LastModifiedBy Organization Detail LastModifiedTime 01/01/2012/31/2022 XR, hand No observ ation record ed. [facility] [address], [place], [address], 01/03/2023 07:40:21 Result Notes None recorded. Problems Name Problem SNOMED Code Status Onset Date Resolution Date Notes Provider Name and Address Organization Details Recorded Time Acne 50761355 Active 2017 Not Available [facility] 3 01:06:07 Open wound of toe 568729263 Active 2019 Not Available [facility] 3 01:06:07 Constipat ion 26554910 Active 2021 Not Available [facility] 3 01:06:07 Asthma 273034818 Active 2017 Not Available [facility] 3 01:06:08 Female pelvic inflammat ory disease 067602070 Active 2022 Not Available [facility] 3 01:06:08 Anosognos ia 52120395 Active 2013 Not Available [facility] 3 01:06:08 Curly toe 962982389 Active 2019 Not Available [facility] 3 01:06:08 Multiple sclerosis 53375796 Active 2017 Not Available [facility] 3 01:06:08 Right foot drop 64663108981 9106 Active 2021 Not Available [facility] 3 01:06:08 Pain of toe of right foot 76759925303 9101 Active 2019 Not Available [facility] 3 01:06:08 Depressiv e disorder 13935713 Active 2018 Not Available [facility] 3 01:06:08 Migraine 74478970 Active 2017 Not Available [facility] 3 01:06:08 Contracep tion care managemen t Active 2020 Not Available [facility] 3 01:06:09 Anxiety 86074205 Active 2013 Not Available [facility] 3 01:06:09 Tinea pedis 1399615 Active 2020 Not Available [facility] 3 01:06:09 Paranoid schizophr enia 87502567 Active 2017 with anxiety & depressio n Not Available [facility] 3 01:06:09 Moderate cognitive impairmen t 251505462 Active 2019 Not Available [facility] 3 01:06:09 Epilepsy 94335243 Active 2019 Not Available [facility] 3 01:06:09 Disorder of skin 16857762 Active 2006 Not Available [facility] 3 01:06:10 Seasonal allergic rhinitis 846271689 Active 2022 Lauren Saba NP [address], [place], [address] , [facility] 3 08:48:34 Xerostomi a 80223656 Active 2022 Lauren Saba NP [address], [place], [address] , [employer] 3 14:40:56 Hoarse 70437189 Active 2022 Lauren Saba NP [address], [place], [address] , [facility] 3 14:41:41 Pain in toe 774100636 Active 2023 Maikel Barkley DPM [address], [place], [address] , [facility] 4 09:19:13 Callosity on toe 089576334 Active 2023 Maikel Barkley, DPM [address] [facility], [facility] [address], [place], [address] , [facility] [employer] 09:19:20 Problem Notes None recorded. Procedures Surgical History Date Name Laterality Status Provider Name and Address Organization Details Recorded Time Unlisted px phrnx adnd/tnsl completed Not Available [facility] 05/17/2022 00:53:24 Tonsillectomy completed Not Available [facility] 05/17/2022 00:53:24 Knee completed Not Available [facility] 03/2022 00:53:24 Imaging Results Imaging Date Name Status LastModified by Organiz ation Details LastModified Time 12/31/2022 XR, hand completed [facility] [address] [facility] [address], [place], [address], 01/03/2023 07:40:21 Procedure Notes None recorded. Medical Equipment None Reported. Allergies No known drug allergies Medications Name Sig Start Date Stop Date Status Note LastModified by Organization Details LastModified Time metformin 500 mg tablet TK 1 T PO BID 12/04 completed Not Available Not Available Not Available butalbita l-acetami nophen-ca ffeine 50 mg-325 mg-40 mg capsule Take 1 capsule every 4 hours by oral route. 10/21 completed Not Available Not Available Not Available prednison e 10 mg tablet 04/27 completed Not Available Not Available Not Available tretinoin 0.01 % topical gel GRACY A PEA SIZE AMOUNT TO ENTIRE FACE Q NIGHT HS active Not Available Not Available No t Available clindamyc in HCl 300 mg capsule Take 1 capsule every 6 hours by oral route. 05/18 completed uses as needed Not Available Not Available Not Available trazodone 50 mg tablet TAKE 1 TABLET BY MOUTH EVERY NIGHT NEEDED FOR INSOMNIA active Not Available Not Available No t Available Stool Softener 100 mg capsule TAKE 1 CAPSULE BY MOUTH EVERY 12 HOURS 2023 active Not Available Not Available Not Avai lable ibuprofen 800 mg tablet active Not Available Not Available Not Available nystatin 100,000 unit/gram topical ointment 04/01 /2024 completed Not Available Not Available Not Available fluconazo le 150 mg tablet TAKE 1 TABLET BY MOUTH EVERY 72 HOURS active Not Available Not Available No t Available levetirac etam 500 mg tablet TAKE 1 TABLET BY MOUTH TWICE DAILY 06/17 completed Not Available Not Available Not Available hydrocodo ne 5 mg-acetam inophen 325 mg tablet TAKE 1 TABLET BY MOUTH EVERY 6 HOURS FOR 3 DAYS NEEDED FOR PAIN 08/03 completed Not Available Not Available Not Available fluconazo le 200 mg tablet TAKE 1 TABLET BY MOUTH EVERY OTHER DAY FOR 3 DOSES 02/06 completed Not Available Not Available Not Available metronida zole 0.75 % (37.5 mg/5 gram) vaginal gel INSERT 1 APPLICAT ORFUL VAGINALL Y AT BEDTIME FOR 5 NIGHTS 06/17 completed Not Available Not Available Not Available prednison e 20 mg tablet Take 1 tablet every day by oral route for 5 days. active Not Available Not Available No t Available clonazepa m 0.5 mg tablet TAKE 1 TABLET BY MOUTH AT BEDTIME 08/07 completed Not Available Not Available Not Available prednison e 5 mg tablet 04/27 completed Not Available Not Available Not Available benzoyl peroxide 10 % topical cleanser WASH FACE AND BODY WITH ONCE DAILY active dermatol ogist Not Available Not Available Not Available metronida zole 250 mg tablet TAKE 2 TABLETS BY MOUTH EVERY 8 HOURS 03/21 completed Not Available Not Available Not Available clindamyc in HCl 150 mg capsule TK 1 C PO Q 6 TO 8 H FOR 7 DAYS active Not Available Not Available No t Available sumatript an 50 mg tablet 04/27 completed Not Available Not Available Not Available metronida zole 500 mg tablet TAKE 4 TABLETS BY MOUTH TWICE DAILY FOR 7 DAYS 03/21 completed Not Available Not Available Not Available hydroxyzi ne HCl 50 mg tablet active Not Available Not Available No t Available erythromy chelsie 2 % topical ointment APPLY A THIN LAYER TO THE AFFECTED AREA(S)f vidal AFTER WASHING BY TOPICAL ROUTE 2 TIMES PER DAY IN THE MORNING AND EVENING 05/18 completed Not Available Not Available Not Available tretinoin 0.05 % topical cream APPLY PEA SIZED AMOUNT TOPICALL Y TO FACE AT NIGHT active Not Available Not Available No t Available ciproflox acin 500 mg tablet TAKE 1 TABLET BY MOUTH EVERY 12 HOURS 04/27 completed Not Available Not Available Not Available acetamino phen 500 mg tablet TAKE 1 TABLET BY MOUTH EVERY 6 HOURS NEEDED FOR PAIN. active Not Available Not Available No t Available butalbita l-acetami nophen-ca ffeine 50 mg-325 mg-40 mg tablet active Not Available Not Available Not Available zonisamid e 100 mg capsule TAKE 5 CAPSULES BY MOUTH AT BEDTIME active Not Available Not Available No t Available alprazola m 0.5 mg tablet TAKE 1 TABLET BY MOUTH 30 MINUTES BEFORE MRI. MAY REPEAT ONCE. BRING SOMEONE TO DRIVE YOU 06/17 completed Not Available Not Available Not Available betametha sone valerate 0.1 % topical cream APPLY THIN LAYER TOPICALL Y TO THE AFFECTED AREA EVERY DAY 04/27 completed Not Available Not Available Not Available lorazepam 2 mg tablet 12/04 completed Not Available Not Available Not Available phenazopy ridine 100 mg tablet TAKE 1 TABLET BY MOUTH THREE TIMES DAILY FOR 7 DAYS NEEDED 08/07 completed Not Available Not Available Not Available baclofen 10 mg tablet TAKE 1 TABLET BY MOUTH TWICE DAILY FOR MUSCLE SPASMS. MAY CAUSE DROWSINE SS active Not Available Not Available No t Available doxycycli ne monohydra te 100 mg capsule TK 1 C PO BID WC FOR 7 DAYS active Not Available Not Available No t Available cephalexi n 500 mg capsule 04/27 completed Not Available Not Available Not Available pantopraz ole 40 mg tablet,de layed release active Not Available Not Available Not Available triamcino lone acetonide 0.1 % topical ointment APPLY THIN LAYER TOPICALL Y TO THE AFFECTED AREA TWICE DAILY FOR 7 DAYS NEEDED 03/21 completed Not Available Not Available Not Available ranitidin e 150 mg tablet TK 1 T PO Q 12 H 04/27 completed Not Available Not Available Not Available benztropi ne 1 mg tablet TK 1 T PO QD 05/19 completed Not Available Not Available Not Available triamcino lone acetonide 0.025 % topical ointment APPLY THIN LAYER TOPICALL Y TO THE AFFECTED AREA TWICE DAILY FOR 7 DAYS NEEDED 03/21 completed Not Available Not Available Not Available gentamici n 0.1 % topical cream GRACY SML AMT EXT AA D active Not Available Not Available No t Available folic acid 1 mg tablet TAKE 1 TABLET BY MOUTH EVERY DAY active Not Available Not Available No t Available hydroxyzi ne HCl 25 mg tablet TK 1 T PO BID PRN 03/08 completed psych Not Available Not Available Not Available capsaicin 0.025 % topical cream APPLY TO THE AFFECTED AREA(S) BY TOPICAL ROUTE 3 TIMES PER DAY for 5 days 04/27 completed Not Available Not Available Not Available halobetas ol propionat e 0.05 % topical cream GRACY TO RASH ON LOWER LEGS UP TO BID active Not Available Not Available No t Available mupirocin 2 % topical ointment APPLY A SMALL AMOUNT TO THE AFFECTED AREA BY TOPICAL route daily 04/27 completed Not Available Not Available Not Available lorazepam 1 mg tablet 01/06 completed Not Available Not Available Not Available ibuprofen 600 mg tablet TK 1 T PO Q 6 H PRN 11/24 completed Not Available Not Available Not Available ketoconaz ole 2 % topical cream APPLY IN BETWEEN TOES EVERY DAY active Not Available Not Available No t Available cefdinir 300 mg capsule TAKE 1 CAPSULE BY MOUTH EVERY 12 HOURS 08/07 completed Not Available Not Available Not Available fluticaso ne propionat e 50 mcg/actua tion nasal spray,lb pension SHAKE LIQUID AND USE 2 SPRAYS IN EACH NOSTRIL EVERY DAY active Not Available Not Available No t Available clotrimaz ole 1 % topical cream APPLY TOPICALL Y TO THE AFFECTED AND SURROUND ING AREAS OF SKIN TWICE DAILY IN THE MORNING AND EVENING 04/27 completed Not Available Not Available Not Available doxycycli ne hyclate 100 mg tablet TAKE 1 TABLET BY MOUTH EVERY 12 HOURS 08/07 completed Not Available Not Available Not Available amoxicill in 875 mg-potass ium clavulana te 125 mg tablet TAKE 1 TABLET BY MOUTH EVERY 12 HOURS 02/03 completed Not Available Not Available Not Available Ventolin HFA 90 mcg/actua tion aerosol inhaler active Not Available Not Available Not Available Bactrim DS 800 mg-160 mg tablet Take 1 tablet every 12 hours by oral route for 10 days. active Not Available Not Available No t Available tretinoin microsphe res 0.04 % topical gel APPLY PEA SIZED AMOUNT TOPICALL Y TO FACE AT NIGHT 08/07 completed Not Available Not Available Not Available escitalop feliciano 10 mg tablet TAKE 1 TABLET BY MOUTH DAILY active Not Available Not Available No t Available escitalop feliciano 20 mg tablet TAKE 1 TABLET BY MOUTH EVERY DAY active Not Available Not Available No t Available aripipraz ole 15 mg tablet TAKE 1 TABLET BY MOUTH AT BEDTIME 06/17 completed Not Available Not Available Not Available aripipraz ole 5 mg tablet TAKE 1 TABLET BY MOUTH AT BEDTIME FOR MAJOR DEPRESSI ON active Not Available Not Available No t Available erythromy chelsie with ethanol 2 % topical solution GRACY EXT TO ENTIRE FACE 1 TO 2 TIMES D active Not Available Not Available No t Available tinidazol e 500 mg tablet TAKE 4 TABLETS BY MOUTH EVERY DAY WITH MEALS FOR 7 DAYS 08/07 completed Not Available Not Available Not Available Botox every 3 months 2019 active Not Available Not Available Not Avai lable Ventolin HFA 2 puffs prn 04/27 completed Not Available Not Available Not Available Abilify 02/06 completed Not Available Not Available Not Available levetirac etam 1,000 mg tablet TAKE 1 TABLET BY MOUTH TWICE DAILY 06/17 completed Not Available Not Available Not Available TRETIN-X Cream 0.05 % topical kit APPLY TO THE AFFECTED AREA(S) BY TOPICAL ROUTE ONCE DAILY 04/27 completed Not Available Not Available Not Available Symbicort 160 mcg-4.5 mcg/actua tion HFA aerosol inhaler INHALE 2 PUFFS BY MOUTH 2 TIMES A DAY 2023 active Not Available Not Available Not Avai lable Symbicort 1 puff BID 06/10 completed Not Available Not Available Not Available lacosamid e 200 mg tablet TAKE 1 TABLET BY MOUTH TWICE DAILY active Not Available Not Available No t Available Vimpat 100 mg tablet TAKE 1 TABLET BY MOUTH TWICE DAILY 04/27 completed Not Available Not Available Not Available Vitamin B-1 (mononitr ate) 100 mg tablet TAKE 1 TABLET BY MOUTH EVERY DAY active Not Available Not Available No t Available Abilify Maintena 300 mg intramusc ular suspensio n,extende d release Inject every month by intramus cular route. 10/21 completed Not Available Not Available Not Available Abilify Maintena 300 mg suspensio n,extende d rel. intramusc ular syringe INJECT 300 MG INTO THE MUSCLE EVERY 28 DAYS 03/21 completed Not Available Not Available Not Available Breo Ellipta 200 mcg-25 mcg/dose powder for inhalatio n 1 puff inh daily 11/24 completed Not Available Not Available Not Available Aristada 662 mg/2.4 mL suspensio n, extend.re l. IM syringe 02/06 completed Not Available Not Available Not Available Briviact 100 mg tablet TAKE 1 TABLET BY MOUTH TWICE DAILY 06/17 completed Not Available Not Available Not Available Briviact 75 mg tablet TAKE 2 TABLETS BY MOUTH TWICE DAILY active Not Available Not Available No t Available Ocrevus 30 mg/mL intraveno us solution Inject by intraven ous route. 06/17 completed neuro Not Available Not Available Not Available fluticaso ne 113 mcg-salme terol 14 mcg/actua tion breath activated powdr INHALE 1 PUFF BY MOUTH TWICE DAILY 10/21 completed Not Available Not Available Not Available Flucelvax Quad (PF) 60 mcg (15 mcg x 4)/0.5 mL IM syringe ADM 0.5ML IM UTD active Not Available Not Available No t Available Vitals Date Recorded Body height Body mass index (BMI) Body weight Body temperature Heart rate Respiratory rate Oxygen saturation Oxygen saturation in Arterial blood by Pulse oximetry Systolic blood pressure Diastolic blood pressure Provider Name and Address Organization Details Last Updated DateTime 3 165.1 cm 24.2 kg/m2 53253.2 9 g 97.7 [degF] 83 /min 16 /min 98 % 98 % 110 mm[Hg] 80 mm[Hg] Lauren Henao RN [facility] [employer] [facility] 3 08:26:09 Date Recorded Body height Body mass index (BMI) Body weight Body temperature Heart rate Respiratory rate Oxygen saturation Oxygen saturation in Arterial blood by Pulse oximetry Systolic blood pressure Diastolic blood pressure Provider Name and Address Organization Details Last Updated DateTime 3 165.1 cm 24.5 kg/m2 25347.1 3 g 97.3 [degF] 94 /min 20 /min 98 % 98 % 142 mm[Hg] 90 mm[Hg] Lauren Henao RN [facility] [employer] [facility] 3 14:32:52 Date Recorded Body height Body mass index (BMI) Body weight Body temperature Heart rate Respiratory rate Oxygen saturation Oxygen saturation in Arterial blood by Pulse oximetry Systolic blood pressure Diastolic blood pressure Provider Name and Address Organization Details Last Updated DateTime 3 165.1 cm 25.5 kg/m2 24088.6 8 g 96.6 [degF] 95 /min 16 /min 99 % 99 % 120 mm[Hg] 80 mm[Hg] Lauren Henao RN [facility] [employer] [facility] 3 09:18:06 Date Recorded Body height Body mass index (BMI) Body weight Body temperature Respiratory rate Heart rate Oxygen saturation Oxygen saturation in Arterial blood by Pulse oximetry Systolic blood pressure Diastolic blood pressure Provider Name and Address Organization Details Last Updated DateTime 4 165.1 cm 24.9 kg/m2 99388.7 1 g 95.9 [degF] 20 /min 94 /min 99 % 99 % 128 mm[Hg] 90 mm[Hg] Lauren Henao RN [facility] [employer] [facility] 4 09:00:23 Social History Question Answer Notes LastModified by Organization Details LastModified Time Tobacco Smoking Status Never Smoker Not Available [facility] 05/17/2022 00:49:53 What Is Your Level Of Alcohol Consumption? Occasional [id number] Information not available 05/17/2022 What Is Your Level Of Caffeine Consumption? Occasional [email or web address].[id number] Information not available 05/17/2022 How Much Tobacco Do You Chew? None [email or web address].030 [id number] Information not available 05/17/2022 In The 14 Days Before Symptom Onset, Have You Had Close Contact With A Laboratory-confi rmed COVID-19 While That Case Was Ill? No [email or web address].030 [id number] Information not available 05/17/2022 In The 14 Days Before Symptom Onset, Have You Had Close Contact With A Person Who Is Under Investigation For COVID-19 While That Person Was Ill? No [email or web address].[id number] Information not available 05/17/2022 Are You Currently Employed? No Disability Information not available 08/07/2022 What Type Of Diet Are You Following? REGULAR Meal Replacement MIGRATION.030 [id number] Information not available 05/17/2022 Which Illicit Or Recreational Drugs Have You Used? Marijuana [id number].[id number] [id number] Information not available 05/17/2022 Do You Or Have You Ever Used E-cigarettes Or Vape? Never Used Electronic Cigarettes MIGRATION.[id number] [id number] Information not available 05/17/2022 Have There Been Any Changes To Your Family Or Social Situation? Yes New Apartment (Independent) [id number].[id number] [id number] Information not available 05/17/2022 Do You Use Insect Repellent Routinely? Yes [email or web address].[id number] [id number] Information not available 05/17/2022 Where Do You Live? Apartment Information not available 08/07/2022 Have You Ever Been Counseled For Unhealthy Alcohol Use? No MIGRATION.0301 [id number] Information not available 05/17/2022 Do You Have Any Pets? No MIGRATION.0301 [id number] Information not available 05/17/2022 What Is Your Relationship Status? Single MIGRATION.0301 [id number] Information not available 05/17/2022 Do You Use Your Seat Belt Or Car Seat Routinely? Yes MIGRATION.0301 [id number] Information not available 05/17/2022 Do You Have Smoke And Carbon Monoxide Detectors In Your Home? Yes [email or web address].[id number] [id number] Information not available 05/17/2022 Are You Passively Exposed To Smoke? Yes MIGRATION.0301 [id number] Information not available 05/17/2022 Do You Or Have You Ever Used Smokeless Tobacco? Never Used Smokeless Tobacco MIGRATION.0301 [id number] Information not available 05/17/2022 Are There Any Smokers In Your House? Yes MIGRATION.0301 [id number] Information not available 05/17/2022 Do You Participate In Social Media? Yes MIGRATION.0301 [id number] Information not available 05/17/2022 Do You Feel Stressed (tense, Restless, Nervous, Or Anxious, Or Unable To Sleep At Night)? [id number] MIGRATION.0301 [id number] Information not available 05/17/2022 Do You Use Any Illicit Or Recreational Drugs? Yes MIGRATION.0301 [id number] Information not available 05/17/2022 Do You Use Sunscreen Routinely? Yes MIGRATION.0301 [id number] Information not available 05/17/2022 Has Tobacco Cessation Counseling Been Provided? No MIGRATION.0301 [id number] Information not available 05/17/2022 Have You Recently Traveled Abroad? No MIGRATION.0301 [id number] Information not available 05/17/2022 Have You Used IV Drugs? No MIGRATION.0301 [id number] Information not available 05/17/2022 Do You Have Any Dietary Restrictions? No MIGRATION.0301 [id number] Information not available 05/17/2022 Do You Or Have You Ever Used Any Other Forms Of Tobacco Or Nicotine? No MIGRATION.0301 [id number] Information not available 05/17/2022 Sex: Female Functional Status Question Answer Note LastModified by Organizat ion Details LastModified Time What is your exercise level? Occasional [id number] Information not available 05/17/2022 Mental Status None recorded. Family History Relationship Description Onset Age of this Age Resolved Age Notes LastModified by Organization Details LastModified Time Mother Asthma [id number] Not available 05/17/2022 00:53:28 Father Cataract [id number] Not available 05/17/2022 00:53:28 Medical History Condition Response OTHER # 1 Y ASTHMA Y DEPRESSION (INCLUDING POST ) Y HAVE YOU BEEN HOSPITALIZED OR SEEN IN [facility] IN THE PAST YEAR ? Y SEIZURES/EPILEPSY Y MULTIPLE SCLEROSIS Y ANXIETY DISORDER Y Gynecological History Statement/Question Response Abnormal Pap N Flow Light STIs/STDs Y Date of Last Pap Current Control Method IUD Breast Problems none How many live births 1 Date of Last Mammogram 11/01/2021 Sexually Active? Y Menses Monthly N Discharge none Obstetrics History GPAL:G 1 P 1 0 0 0 Type Value Full Term 1 Total 1 Immunizations Vaccine Type Date Status Note Provider Nam e and Address Organization Details Recorded Time Influenza, split virus, quadrivalent, PF 3 completed Lauren Henao RN null, [place] - [facility] 02/06/2023 10:43:21 Influenza, split virus, quadrivalent, preservative 0 completed Not Available [facility] 05/17/2022 01:24:22 Influenza, split virus, quadrivalent, PF 2 completed Not Available [facility] 05/17/2022 01:24:22 Influenza, split virus, quadrivalent, PF 1 completed Not Available [facility] 05/17/2022 01:24:22 Influenza, split virus, quadrivalent, PF 9 completed Not Available [facility] 05/17/2022 01:24:22 Past Encounters Encounter ID Performer Location Encounter Start Date Encounter Closed Date Diagnosis/Indication Diagnosis SNOMED-CT Code Diagnosis ICD10 Code [id number] [facility] [address] [place] [address] 05/18/2020 00:00:00 05/18/2020 15:59:44 [id number] [facility] [address] [place] [address] 06/10/2020 00:00:00 06/11/2020 18:57:49 [id number] [facility] [address] [place] [address] 10/21/2020 00:00:00 10/21/2020 10:41:21 [id number] [facility] [address] [place] [address] 12/02/2020 00:00:00 12/02/2020 13:07:08 [id number] [facility] [address] [place] [address] 01/28/2021 00:00:00 01/28/2021 15:40:19 [id number] [facility] [address] [place] [address] 04/27/2021 00:00:00 04/27/2021 10:47:54 [id number] [facility] [address] [place] [address] 06/09/2021 00:00:00 06/09/2021 15:30:59 [id number] [facility] [address] [place] [address] 08/03/2021 00:00:00 08/03/2021 17:29:09 [id number] [facility] [place] [address] [place] [address] 11/16/2021 00:00:00 11/16/2021 15:26:23 [id number] [facility] [address] [address] 12/15/2021 00:00:00 12/15/2021 10:37:19 [id number] [facility] [place] [address] 02/03/2022 00:00:00 02/03/2022 09:55:[id number] [address] 03/21/2022 00:00:00 03/21/2022 09:58:[id number] [address] 05/09/2022 00:00:00 05/09/2022 14:43:14 [id number] Lauren Saba NP [address] [address] 08/07/2022 08:12:54 08/07/2022 08:58:38 Asthma 941822584 J45.909 Multiple sclerosis 18470 007 G35 Depressive disorder 3548 9007 F32.9 Migraine 19632284 G43.90 9 Contracept ion care management 865821004 Z30.9 Anxiety 04733568 F41.9 Paranoid schizophrenia 09839885 F20.0 Moderate c ognitive impairment 207786157 R41.9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
--- OUTSIDE RECORDS SUMMARY | 2024-03-22 16:35 | XMS_ITS | Patient Health Summary ---
Author Organization [facility] [employer] Address [address] [place] [address] Care Team Providers Care Animal Behaviorist Name Role Phone Joy Sheppard PA-C Primary Care Provider Note from [facility],non-owned Affiliates and Associated Physician Practices is amultiple site organization consisting of ambulatory clinics and hospital sitesin [place], [place], [place] and [place]. This disclosure is being madepursuant to the Care Everywhere program and may not contain all information available regarding this patient. Last updated 17.[facility] Allergies No known active allergies Medications * Be aware that medications may not be up to date on this document. Alwaysverify current medications with the patient. * budesonide-formoterol (Symbicort) 160-4.5 MCG/ACT inhaler(Started 12/13/2023) Inhale 2 (two) puffs by mouth 2 times daily for 30 days * albuterol HFA (Proventil HFA) 108 (90 Base) MCG/ACT inhaler(Started 12/13/2023) Inhale 2 (two) puffs by mouth every 6 hours as needed * zonisamide (Zonegran) 100 MG capsule(Started 12/13/2023) Take 5 (five) capsules by mouth at bedtime for 30 days Reasons: Focal Epilepsy * escitalopram (Lexapro) 20 MG tablet(Started 12/14/2023) Take 1 (one) tablet by mouth once daily for 30 days * fluticasone propionate (Flonase) 50 MCG/ACT nasal spray(Started 12/14/2023) [place] 2 (two) sprays into each nostril once daily for 30 days * lacosamide (Vimpat) 100 MG tablet(Started 12/14/2023) Take 1 (one) tablet by mouth 2 times daily for 30 days * benztropine (Cogentin) 1 MG tablet(Started 01/29/2024) Take 1 (one) tablet by mouth once daily for 15 days Reasons: Extrapyramidal Reaction caused by Medications * risperiDONE (RisperDAL) 2 MG tablet(Started 01/29/2024) Take 1 (one) tablet by mouth at bedtime Reasons: Schizophrenia 1 refill by 01/28/2025 Active Problems Problem Noted Date Diagnosed Date Hypokalemia 11/26/2023 [...] Altered mental status 02/04/2021 Suspected condition 01/08/2021 Acne vulgaris 05/07/2020 Rash and other nonspecific skin eruption 021 Xerosis cutis 05/07/2020 Tinea pedis 04/02/2020 Pain of toe of [...] 03/02/2016 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 (FLUCELVAX QUADRIVALENT; 6MO+) (CCIIV4)(Given 06/09/2019) * INFLUENZA VACCINE, QUADR. (FLUZONE; FLULAVAL; FLUARIX; AFLURIA QUADRIVALENT; 6MO+), 0.5 ML (IIV4)(Given 02/06/2023, 12/15/2021, 12/02/2020, 11/14/2019, 12/10/2018) * PNEUMOCOCCAL PPSV23(Given 08/18/2016) Social History Tobacco Use Types Packs/Day Years [...] Recorded Patient Health Questionnaire-2 Score 1 11/26/2023 [facility] - [...] to sleep or slept in a senior care (including now)? 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 Weight 58 kg (127 lb 12.8 oz) 11/27/2023 12:58 P M CDT Height 165.1 cm (5' 5 ) 12/10/2023 7:01 PM CDT Body Mass Index 21.27 11/27/2023 12:58 PM CDT Procedures * CULTURE URINE(Performed 12/11/2023) * URINALYSIS REFLEX TO MICROSCOPIC NO CULTURE(Performed 12/10/2023) * LIPID PROFILE(Performed 12/03/2023) * CARDIAC EKG ORDER(Performed 11/27/2023) * URINE DRUG SCREEN IMMUNOASSAY(Performed 11/26/2023) * HCG BETA BLOOD QUANTITATIVE(Performed 11/26/2023) * ALCOHOL ETHYL BLOOD(Performed 11/26/2023) * MAGNESIUM BLOOD(Performed 11/26/2023) * COMPREHENSIVE METABOLIC PANEL(Performed 11/26/2023) * CBC W AUTO DIFFERENTIAL(Performed 11/26/2023) * EKG 12-LEAD(Performed 11/26/2023) Performed for Agitation * MRI CERVICAL SPINE WWO CONT(Performed 07/11/2023) Performed for MS (multiple sclerosis) (HCC) * MRI BRAIN WWO CONTRAST(Performed 07/11/2023) Performed for MS (multiple sclerosis) (HCC) * CREATININE - POCT INTERFACED(Performed 07/11/2023) * NM CHEMODENERV MUSC MIGRAINE(Performed 06/13/2023) Performed for Intractable chronic 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 without status migrainosus * ZONISAMIDE LEVEL(Performed 05/11/2023) * LACOSAMIDE(Performed 05/11/2023) * CBC W AUTO DIFFERENTIAL(Performed 05/11/2023) * COMPREHENSIVE METABOLIC PANEL(Performed 05/11/2023) * NM CHEMODENERV MUSC MIGRAINE(Performed 03/16/2023) Performed for Intractable chronic 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 without status migrainosus * CARDIAC EKG ORDER(Performed 11/23/2022) * EKG 12-LEAD(Performed 11/21/2022) Performed for Aggressive behavior, Paranoid (HCC) * URINE DRUG SCREEN IMMUNOASSAY(Performed 11/21/2022) * LEVETIRACETAM LEVEL(Performed 11/21/2022) * HCG BETA BLOOD QUANTITATIVE(Performed 11/21/2022) * TSH REFLEX FREE T4(Performed 11/21/2022) * COMPREHENSIVE METABOLIC PANEL(Performed 11/21/2022) * CBC W AUTO DIFFERENTIAL(Performed 11/21/2022) * ALCOHOL ETHYL BLOOD(Performed 11/21/2022) * NM CHEMODENERV MUSC MIGRAINE(Performed 09/08/2022) Performed for Intractable chronic 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 without status migrainosus * CBC W AUTO DIFFERENTIAL(Performed 06/21/2022) * COMPREHENSIVE METABOLIC PANEL(Performed 06/21/2022) * LEVETIRACETAM LEVEL(Performed 06/21/2022) * ZONISAMIDE LEVEL(Performed 06/21/2022) * LACOSAMIDE(Performed 06/21/2022) * MRI BRAIN WWO CONTRAST(Performed 05/13/2022) Performed for MS (multiple sclerosis) (HCC) * CREATININE - POCT INTERFACED(Performed 05/13/2022) * NM CHEMODENERV MUSC MIGRAINE(Performed 05/05/2022) Performed for Intractable chronic 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 without status migrainosus * ZONISAMIDE LEVEL(Performed 04/12/2022) * LACOSAMIDE(Performed 04/12/2022) * CBC W AUTO DIFFERENTIAL(Performed 04/12/2022) * COMPREHENSIVE METABOLIC PANEL(Performed 04/12/2022) * NM CHEMODENERV MUSC MIGRAINE(Performed 01/18/2022) Performed for Intractable chronic 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 without status migrainosus * HEPATITIS C AB W/RFLX TO HCV RNA QN PCR(Performed 01/16/2022) Performed for Trichomoniasis of vagina, Screening for STD (sexually transmitted disease) * HIV-1 HIV-2 ANTIBODY + HIV P24 AG PANEL(Performed 01/16/2022) Performed for Trichomoniasis of vagina, Screening for STD (sexually transmitted disease) * HEMOGLOBIN A1C(Performed 12/22/2021) Performed for Vaginal candidiasis * URINALYSIS AUTO - POINT OF CARE (AMB) [facility](Performed 11/04/2021) Performed for Neurogenic bladder * NM MSR PVR U&/BLADD CAPCTY US NON(Performed 11/04/2021) Performed for Neurogenic bladder * NM CHEMODENERV MUSC MIGRAINE(Performed 10/21/2021) Performed for Intractable migraine without status migrainosus, unspecified migraine type * NM MSR PVR U&/BLADD CAPCTY US NON(Performed 08/26/2021) Performed for Urinary urgency * NM CHEMODENERV MUSC MIGRAINE(Performed 07/13/2021) Performed for Intractable chronic 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 without status migrainosus * IGM BLOOD(Performed 06/29/2021) Performed for High risk medications (not anticoagulants) long-term use * IGG BLOOD(Performed 06/29/2021) Performed for High risk medications (not anticoagulants) long-term use * IGA BLOOD(Performed 06/29/2021) Performed for High risk medications (not anticoagulants) long-term use * COMPREHENSIVE METABOLIC PANEL(Performed 06/29/2021) Performed for High risk medications (not anticoagulants) long-term use * CBC W AUTO DIFFERENTIAL(Performed 06/29/2021) Performed for High risk medications (not anticoagulants) long-term use * LIPID PROFILE(Performed 05/17/2021) * HEMOGLOBIN A1C(Performed 05/17/2021) * HCG BETA BLOOD QUANTITATIVE(Performed 05/13/2021) * ALCOHOL ETHYL BLOOD(Performed 05/13/2021) * COMPREHENSIVE METABOLIC PANEL(Performed 05/13/2021) * CBC W AUTO DIFFERENTIAL(Performed 05/13/2021) * SARS-COV-2 (COVID-19)+INFLU A+B PCR RAPID(Performed 05/13/2021) * SARS-COV-2 (COVID-19)+INFLU A+B PCR RAPID(Performed 04/08/2021) * HCG BETA BLOOD QUANTITATIVE(Performed 04/08/2021) * COMPREHENSIVE METABOLIC PANEL(Performed 04/08/2021) * CBC W AUTO DIFFERENTIAL(Performed 04/08/2021) * ALCOHOL ETHYL BLOOD(Performed 04/08/2021) * URINE DRUG SCREEN IMMUNOASSAY(Performed 04/08/2021) * URINALYSIS REFLEX TO MICROSCOPIC NO CULTURE(Performed 04/08/2021) * NM CHEMODENERV MUSC MIGRAINE(Performed 02/14/2021) Performed for Intractable chronic 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 without status migrainosus * FLOW CYTOMETRY RITUXAN BLOOD(Performed 01/07/2021) Performed for MS (multiple sclerosis) (HCC), High risk medications (not anticoagulants) long-term use * DIFFERENTIAL MANUAL(Performed 01/07/2021) Performed for MS (multiple sclerosis) (HCC), High risk medications (not anticoagulants) long-term use * LACOSAMIDE(Performed 01/07/2021) Performed for Seizures (HCC) * ZONISAMIDE LEVEL(Performed 01/07/2021) Performed for Seizures (HCC) * COMPREHENSIVE METABOLIC PANEL(Performed 01/07/2021) Performed for MS (multiple sclerosis) (HCC), High risk medications (not anticoagulants) long-term use * CBC W AUTO DIFFERENTIAL(Performed 01/07/2021) Performed for MS (multiple sclerosis) (HCC), High risk medications (not anticoagulants) long-term use * MRI CERVICAL SPINE WWO CONT(Performed 11/08/2020) Performed for MS (multiple sclerosis) (HCC) * MRI BRAIN WWO CONTRAST(Performed 11/08/2020) Performed for MS (multiple sclerosis) (HCC) * URINALYSIS W/MICROSCOPIC REFLEX TO CULTURE(Performed 11/01/2020) Performed for Leukocytosis, unspecified type * CBC W AUTO DIFFERENTIAL(Performed 11/01/2020) Performed for Leukocytosis, unspecified type * NM CHEMODENERV MUSC MIGRAINE(Performed 11/01/2020) Performed for Intractable chronic 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 without status migrainosus * FLOW CYTOMETRY RITUXAN BLOOD(Performed 10/20/2020) Performed for High risk medications (not anticoagulants) long-term use * IGG BLOOD(Performed 10/20/2020) Performed for High risk medications (not anticoagulants) long-term use * IGA BLOOD(Performed 10/20/2020) Performed for High risk medications (not anticoagulants) long-term use * IGM BLOOD(Performed 10/20/2020) Performed for High risk medications (not anticoagulants) long-term use * COMPREHENSIVE METABOLIC PANEL(Performed 10/20/2020) Performed for MS (multiple sclerosis) (HCC), High risk medications (not anticoagulants) long-term use * CBC W AUTO DIFFERENTIAL(Performed 10/20/2020) Performed for MS (multiple sclerosis) (HCC), High risk medications (not anticoagulants) long-term use * US RETROPERITONEAL COMPLETE(Performed 09/03/2020) Performed for Neurogenic bladder * NM ANAL/URINARY MUSCLE STUDY(Performed 08/27/2020) Performed for Urinary urgency, Nocturnal enuresis, Neurogenic bladder * NM CYSTOMETROGRAM W/PRESS TENDER SHORT GOODS(Performed 08/27/2020) Performed for Urinary urgency, Nocturnal enuresis, Neurogenic bladder * NM CHEMODENERV MUSC MIGRAINE(Performed 07/21/2020) Performed for Intractable chronic 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 without status migrainosus * NM CHEMODENERV MUSC MIGRAINE(Performed 04/19/2020) Performed for Intractable chronic 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 without status migrainosus * COMPREHENSIVE METABOLIC PANEL(Performed 03/17/2020) Performed for Multiple sclerosis (HCC) * CBC W AUTO DIFFERENTIAL(Performed 03/17/2020) Performed for Multiple sclerosis (HCC) * NM CHEMODENERV MUSC MIGRAINE(Performed 01/12/2020) Performed for Intractable chronic 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 without status migrainosus * NM CHEMODENERV MUSC MIGRAINE(Performed 10/13/2019) Performed for Intractable chronic 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 without status migrainosus * MRI BRAIN WWO CONTRAST(Performed 09/25/2019) Performed for Multiple sclerosis (HCC) * IGA BLOOD(Performed 09/01/2019) Performed for ANIA (internuclear ophthalmoplegia), bilateral * IGM BLOOD(Performed 09/01/2019) Performed for ANIA (internuclear ophthalmoplegia), bilateral * IGG BLOOD(Performed 09/01/2019) Performed for ANIA (internuclear ophthalmoplegia), bilateral * COMPREHENSIVE METABOLIC PANEL(Performed 09/01/2019) Performed for Multiple sclerosis (HCC) * CBC W AUTO DIFFERENTIAL(Performed 09/01/2019) Performed for Multiple sclerosis (HCC) * PROC INJECTION - BOTOX(Performed 07/09/2019) Performed for Intractable chronic 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 without status migrainosus * LEVETIRACETAM LEVEL(Performed 05/16/2019) Performed for Medication monitoring encounter, Nonintractable epilepsy without status epilepticus, unspecified epilepsy type (HCC) * ZONISAMIDE LEVEL(Performed 05/16/2019) Performed for Nonintractable epilepsy without status epilepticus, unspecified epilepsy type (HCC), Medication monitoring encounter * CBC W AUTO DIFFERENTIAL(Performed 05/14/2019) * COMPREHENSIVE METABOLIC PANEL(Performed 05/14/2019) * PROC INJECTION - BOTOX(Performed 01/27/2019) Performed for Intractable chronic 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 without status migrainosus * CBC W AUTO DIFFERENTIAL(Performed 11/06/2018) * COMPREHENSIVE METABOLIC PANEL(Performed 11/06/2018) * QUANTIFERON-TB GOLD PLUS 1-TUBE(Performed 10/31/2018) * HEPATITIS C AB W/RFLX TO HCV RNA QN PCR(Performed 10/31/2018) * HEPATITIS B CORE ANTIBODY TOTAL(Performed 10/31/2018) * IMMUNOGLOBULINS IGG/IGM/IGA PANEL(Performed 10/31/2018) Performed for Therapeutic drug monitoring * T+B LYMPHOCYTE DIFFERENTIAL PROFILE(Performed 10/31/2018) Performed for Therapeutic drug monitoring * NM CHEMODENERV MUSC MIGRAINE(Performed 10/21/2018) Performed for Intractable chronic 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 without status migrainosus * NM CHEMODENERV MUSC MIGRAINE(Performed 07/22/2018) Performed for Intractable chronic 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 without status migrainosus * MRI THORACIC SPINE WWO CONT(Performed 07/15/2018) Performed for MS (multiple sclerosis) (HCC) * MRI CERVICAL SPINE WWO CONT(Performed 07/15/2018) Performed for MS (multiple sclerosis) (HCC) * MRI BRAIN WWO CONTRAST(Performed 07/15/2018) Performed for MS (multiple sclerosis) (HCC), Intractable chronic 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 without status migrainosus, Seizure (HCC) * CREATININE BLOOD - POCT (IP) [facility](Performed 07/15/2018) Performed for MS (multiple sclerosis) (HCC) * ZONISAMIDE LEVEL(Performed 05/22/2018) Performed for MS (multiple sclerosis) (HCC), Vitamin D deficiency, High risk medication use, Seizure (HCC) * VITAMIN D 25-HYDROXY(Performed 05/22/2018) Performed for MS (multiple sclerosis) (HCC), Vitamin D deficiency, High risk medication use, Seizure (HCC) * COMPREHENSIVE METABOLIC PANEL(Performed 05/22/2018) Performed for MS (multiple sclerosis) (HCC), Impaired functional mobility, balance, gait, and endurance, Medication monitoring encounter * CBC W AUTO DIFFERENTIAL(Performed 05/22/2018) Performed for MS (multiple sclerosis) (HCC), Impaired functional mobility, balance, gait, and endurance, Medication monitoring encounter * COMPREHENSIVE METABOLIC PANEL(Performed 05/08/2018) * CBC W AUTO DIFFERENTIAL(Performed 05/08/2018) * NM CHEMODENERV MUSC MIGRAINE(Performed 04/15/2018) Performed for 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) * ZONISAMIDE LEVEL(Performed 02/25/2018) * CBC W AUTO DIFFERENTIAL(Performed 02/25/2018) * COMPREHENSIVE METABOLIC PANEL(Performed 02/25/2018) * NM CHEMODENERV MUSC MIGRAINE(Performed 01/14/2018) Performed for Nonintractable epilepsy without status epilepticus, unspecified epilepsy type (HCC) * LAB RESULTS ORDER(Performed 10/31/2017) * NM CHEMODENERV MUSC MIGRAINE(Performed 10/17/2017) Performed for Intractable chronic 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 without status migrainosus * COMPREHENSIVE METABOLIC PANEL(Performed 10/10/2017) Performed for High risk medication use, Seizure (HCC), Vitamin D deficiency, MS (multiple sclerosis) (HCC) * CBC W AUTO DIFFERENTIAL(Performed 10/10/2017) Performed for High risk medication use, Seizure (HCC), Vitamin D deficiency, MS (multiple sclerosis) (HCC) * NM CHEMODENERV MUSC MIGRAINE(Performed 07/18/2017) Performed for Intractable chronic 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 without status migrainosus * MRI THORACIC SPINE WWO CONT(Performed 07/12/2017) Performed for Multiple sclerosis (HCC) * MRI CERVICAL SPINE WWO CONT(Performed 07/03/2017) Performed for Multiple sclerosis (HCC) * CREATININE BLOOD - POCT (IP) [facility](Performed 07/03/2017) Performed for Multiple sclerosis (HCC) * MRI BRAIN WWO CONTRAST(Performed 06/20/2017) * CREATININE BLOOD - POCT (IP) [facility](Performed 06/20/2017) * LAB HISTORICAL RESULTS-ONBASE(Performed 04/28/2017) * CBC W AUTO DIFFERENTIAL(Performed 03/09/2017) * COMPREHENSIVE METABOLIC PANEL(Performed 03/09/2017) * VITAMIN D 25-HYDROXY(Performed 03/09/2017) * COMPREHENSIVE METABOLIC PANEL(Performed 03/09/2017) * COMPREHENSIVE METABOLIC PANEL(Performed 03/09/2017) * CHLAMYDIA + GC + TRICH DNA AMPL(Performed 02/28/2017) * HIV-1 HIV-2 ANTIGEN/ANTIBODY(Performed 02/28/2017) * RPR W REFLEX CONFIRM(Performed 02/28/2017) * VITAMIN D 25-HYDROXY(Performed 2016) * CBC W AUTO DIFFERENTIAL(Performed 2016) * COMPREHENSIVE METABOLIC PANEL(Performed 2016) * GLUCOSE ACCUCHECK(Performed 10/14/2016) * GLUCOSE ACCUCHECK(Performed 10/14/2016) * BASIC METABOLIC PANEL (CALCIUM TOTAL)(Performed 10/14/2016) * PHOSPHORUS BLOOD(Performed 10/14/2016) * MAGNESIUM BLOOD(Performed 10/14/2016) * CBC W AUTO DIFFERENTIAL(Performed 10/14/2016) * CBC W AUTO DIFFERENTIAL(Performed 10/14/2016) * MRI CERVICAL SPINE WWO CONT(Performed 10/13/2016) * GLUCOSE ACCUCHECK(Performed 10/13/2016) * GLUCOSE ACCUCHECK(Performed 10/13/2016) * GLUCOSE ACCUCHECK(Performed 10/13/2016) * GLUCOSE ACCUCHECK(Performed 10/13/2016) * CBC W AUTO DIFFERENTIAL(Performed 10/13/2016) * BASIC METABOLIC PANEL (CALCIUM TOTAL)(Performed 10/13/2016) * PHOSPHORUS BLOOD(Performed 10/13/2016) * MAGNESIUM BLOOD(Performed 10/13/2016) * CBC W AUTO DIFFERENTIAL(Performed 10/13/2016) * GLUCOSE ACCUCHECK(Performed 10/13/2016) * GLUCOSE ACCUCHECK(Performed 10/12/2016) * GLUCOSE ACCUCHECK(Performed 10/12/2016) * MRI THORACIC SPINE WWO CONT(Performed 10/12/2016) * GLUCOSE ACCUCHECK(Performed 10/12/2016) * GLUCOSE ACCUCHECK(Performed 10/12/2016) * CBC W AUTO DIFFERENTIAL(Performed 10/12/2016) * BASIC METABOLIC PANEL (CALCIUM TOTAL)(Performed 10/12/2016) * PHOSPHORUS BLOOD(Performed 10/12/2016) * MAGNESIUM BLOOD(Performed 10/12/2016) * CBC W AUTO DIFFERENTIAL(Performed 10/12/2016) * GLUCOSE ACCUCHECK(Performed 10/12/2016) * GLUCOSE ACCUCHECK(Performed 10/11/2016) * GLUCOSE ACCUCHECK(Performed 10/11/2016) * GLUCOSE ACCUCHECK(Performed 10/11/2016) * GLUCOSE ACCUCHECK(Performed 10/11/2016) * DIFFERENTIAL MANUAL(Performed 10/11/2016) * CBC W AUTO DIFFERENTIAL(Performed 10/11/2016) * BASIC METABOLIC PANEL (CALCIUM TOTAL)(Performed 10/11/2016) * PHOSPHORUS BLOOD(Performed 10/11/2016) * MAGNESIUM BLOOD(Performed 10/11/2016) * CBC W AUTO DIFFERENTIAL(Performed 10/11/2016) * MRI BRAIN WWO CONTRAST(Performed 10/10/2016) * MRI ORBITS OR FACE WWO CONTRAST(Performed 10/10/2016) * CT HEAD WO CONTRAST(Performed 10/10/2016) * HCG URINE QUALITATIVE - POCT (IP) [facility](Performed 10/10/2016) * URINALYSIS REFLEX TO MICROSCOPIC NO CULTURE(Performed 10/10/2016) * CULTURE BLOOD(Performed 10/10/2016) * CULTURE BLOOD(Performed 10/10/2016) * LACTIC ACID BLOOD(Performed 10/10/2016) * COMPREHENSIVE METABOLIC PANEL(Performed 10/10/2016) * CBC W AUTO DIFFERENTIAL(Performed 10/10/2016) * CBC W AUTO DIFFERENTIAL(Performed 10/10/2016) * GLUCOSE - POINT OF CARE (AMB) [facility](Performed 10/10/2016) * GLUCOSE - POINT OF CARE (AMB) [facility](Performed 10/10/2016) * GLUCOSE ACCUCHECK(Performed 10/10/2016) * CBC W/O DIFFERENTIAL(Performed 09/13/2016) * BASIC METABOLIC PANEL (CALCIUM TOTAL)(Performed 09/13/2016) * CBC W/O DIFFERENTIAL(Performed 09/12/2016) * BASIC METABOLIC PANEL (CALCIUM TOTAL)(Performed 09/12/2016) * CBC W/O DIFFERENTIAL(Performed 09/11/2016) * BASIC METABOLIC PANEL (CALCIUM TOTAL)(Performed 09/11/2016) * BASIC METABOLIC PANEL (CALCIUM TOTAL)(Performed 09/10/2016) * CBC W/O DIFFERENTIAL(Performed 09/10/2016) * FOLATE(Performed 09/09/2016) * VITAMIN B12(Performed 09/09/2016) * VITAMIN D 25-HYDROXY(Performed 09/09/2016) * BASIC METABOLIC PANEL (CALCIUM TOTAL)(Performed 09/09/2016) * CBC W/O DIFFERENTIAL(Performed 09/09/2016) * MRI THORACIC SPINE WWO CONT(Performed 09/08/2016) * BASIC METABOLIC PANEL (CALCIUM TOTAL)(Performed 09/08/2016) * CBC W/O DIFFERENTIAL(Performed 09/08/2016) * MRI CERVICAL SPINE WWO CONT(Performed 09/07/2016) * CBC W/O DIFFERENTIAL(Performed 09/07/2016) * BASIC METABOLIC PANEL (CALCIUM TOTAL)(Performed 09/07/2016) * MRI BRAIN WWO CONTRAST(Performed 09/06/2016) * BASIC METABOLIC PANEL (CALCIUM TOTAL)(Performed 09/06/2016) * CBC W/O DIFFERENTIAL(Performed 09/06/2016) * URINALYSIS REFLEX TO MICROSCOPIC NO CULTURE(Performed 09/05/2016) * COMPREHENSIVE METABOLIC PANEL(Performed 09/05/2016) * CBC W AUTO DIFFERENTIAL(Performed 09/05/2016) * CBC W AUTO DIFFERENTIAL(Performed 09/05/2016) * EKG 12-LEAD(Performed 09/05/2016) * PT-INR [facility](Performed 08/18/2016) * BASIC METABOLIC PANEL (CALCIUM TOTAL)(Performed 08/18/2016) * PHOSPHORUS BLOOD(Performed 08/18/2016) * MAGNESIUM BLOOD(Performed 08/18/2016) * CBC W AUTO DIFFERENTIAL(Performed 08/18/2016) * CALCIUM IONIZED WHOLE BLOOD(Performed 08/18/2016) * CBC W AUTO DIFFERENTIAL(Performed 08/18/2016) * BASIC METABOLIC PANEL (CALCIUM TOTAL)(Performed 08/17/2016) * PHOSPHORUS BLOOD(Performed 08/17/2016) * MAGNESIUM BLOOD(Performed 08/17/2016) * CBC W AUTO DIFFERENTIAL(Performed 08/17/2016) * CBC W AUTO DIFFERENTIAL(Performed 08/17/2016) * CBC W AUTO DIFFERENTIAL(Performed 08/16/2016) * CALCIUM IONIZED WHOLE BLOOD(Performed 08/16/2016) * PHOSPHORUS BLOOD(Performed 08/16/2016) * MAGNESIUM BLOOD(Performed 08/16/2016) * BASIC METABOLIC PANEL (CALCIUM TOTAL)(Performed 08/16/2016) * PT-INR [facility](Performed 08/16/2016) * CBC W AUTO DIFFERENTIAL(Performed 08/16/2016) * GLUCOSE ACCUCHECK(Performed 08/15/2016) * CBC W AUTO DIFFERENTIAL(Performed 08/15/2016) * CBC W AUTO DIFFERENTIAL(Performed 08/15/2016) * BASIC METABOLIC PANEL (CALCIUM TOTAL)(Performed 08/15/2016) * PHOSPHORUS BLOOD(Performed 08/15/2016) * MAGNESIUM BLOOD(Performed 08/15/2016) * DRUG ABUSE PANEL 10-20+ETHANOL URINE NO CONFIRM(Performed 08/14/2016) * GLUCOSE ACCUCHECK(Performed 08/14/2016) * PTT [facility](Performed 08/14/2016) * MAGNESIUM BLOOD(Performed 08/14/2016) * BASIC METABOLIC PANEL (CALCIUM TOTAL)(Performed 08/14/2016) * PT-INR [facility](Performed 08/14/2016) * CBC W AUTO DIFFERENTIAL(Performed 08/14/2016) * CALCIUM IONIZED WHOLE BLOOD(Performed 08/14/2016) * CBC W AUTO DIFFERENTIAL(Performed 08/14/2016) * GLUCOSE ACCUCHECK(Performed 08/13/2016) * GLUCOSE ACCUCHECK(Performed 08/13/2016) * GLUCOSE ACCUCHECK(Performed 08/13/2016) * GLUCOSE ACCUCHECK(Performed 08/13/2016) * CBC W AUTO DIFFERENTIAL(Performed 08/13/2016) * BASIC METABOLIC PANEL (CALCIUM TOTAL)(Performed 08/13/2016) * MAGNESIUM BLOOD(Performed 08/13/2016) * CBC W AUTO DIFFERENTIAL(Performed 08/13/2016) * GLUCOSE ACCUCHECK(Performed 08/12/2016) * GLUCOSE ACCUCHECK(Performed 08/12/2016) * GLUCOSE ACCUCHECK(Performed 08/12/2016) * PT-INR [facility](Performed 08/12/2016) * GLUCOSE ACCUCHECK(Performed 08/12/2016) * CBC W AUTO DIFFERENTIAL(Performed 08/12/2016) * CALCIUM IONIZED WHOLE BLOOD(Performed 08/12/2016) * BASIC METABOLIC PANEL (CALCIUM TOTAL)(Performed 08/12/2016) * MAGNESIUM BLOOD(Performed 08/12/2016) * PTT [facility](Performed 08/12/2016) * CBC W AUTO DIFFERENTIAL(Performed 08/12/2016) * GLUCOSE ACCUCHECK(Performed 08/11/2016) * GLUCOSE ACCUCHECK(Performed 08/11/2016) * GLUCOSE ACCUCHECK(Performed 08/11/2016) * GLUCOSE ACCUCHECK(Performed 08/11/2016) * BASIC METABOLIC PANEL (CALCIUM TOTAL)(Performed 08/11/2016) * MAGNESIUM BLOOD(Performed 08/11/2016) * CBC W AUTO DIFFERENTIAL(Performed 08/11/2016) * CBC W AUTO DIFFERENTIAL(Performed 08/11/2016) * GLUCOSE ACCUCHECK(Performed 08/10/2016) * CALCIUM IONIZED WHOLE BLOOD(Performed 08/10/2016) * PT-INR [facility](Performed 08/10/2016) * IR PICC LINE INSERT(Performed 08/10/2016) * IR US GUIDE VASCULAR ACCESS(Performed 08/10/2016) * IR CENTRAL LINE INSERT TUNNEL(Performed 08/10/2016) * HCG BETA BLOOD QUANTITATIVE(Performed 08/10/2016) * GLUCOSE ACCUCHECK(Performed 08/10/2016) * CBC W AUTO DIFFERENTIAL(Performed 08/10/2016) * BASIC METABOLIC PANEL (CALCIUM TOTAL)(Performed 08/10/2016) * MAGNESIUM BLOOD(Performed 08/10/2016) * CBC W AUTO DIFFERENTIAL(Performed 08/10/2016) * GLUCOSE ACCUCHECK(Performed 08/09/2016) * GLUCOSE ACCUCHECK(Performed 08/09/2016) * GLUCOSE ACCUCHECK(Performed 08/09/2016) * URINALYSIS REFLEX TO MICROSCOPIC NO CULTURE(Performed 08/09/2016) * GLUCOSE ACCUCHECK(Performed 08/09/2016) * CBC W AUTO DIFFERENTIAL(Performed 08/09/2016) * MAGNESIUM BLOOD(Performed 08/09/2016) * BASIC METABOLIC PANEL (CALCIUM TOTAL)(Performed 08/09/2016) * CBC W AUTO DIFFERENTIAL(Performed 08/09/2016) * GLUCOSE ACCUCHECK(Performed 08/09/2016) * MRI BRAIN WWO CONTRAST(Performed 08/08/2016) * MRI CERVICAL SPINE WWO CONT(Performed 08/08/2016) * MRI THORACIC SPINE WWO CONT(Performed 08/08/2016) * GLUCOSE - POINT OF CARE (AMB) SLU(Performed 08/08/2016) * GLUCOSE - POINT OF CARE (AMB) SLU(Performed 08/08/2016) * GLUCOSE ACCUCHECK(Performed 08/08/2016) * COMPREHENSIVE METABOLIC PANEL(Performed 08/08/2016) * CBC W AUTO DIFFERENTIAL(Performed 08/08/2016) * CBC W AUTO DIFFERENTIAL(Performed 08/08/2016) * BASIC METABOLIC PANEL (CALCIUM TOTAL)(Performed 07/25/2016) * CBC W AUTO DIFFERENTIAL(Performed 07/25/2016) * CBC W AUTO DIFFERENTIAL(Performed 07/25/2016) * BASIC METABOLIC PANEL (CALCIUM TOTAL)(Performed 07/24/2016) * CBC W AUTO DIFFERENTIAL(Performed 07/24/2016) * CBC W AUTO DIFFERENTIAL(Performed 07/24/2016) * BASIC METABOLIC PANEL (CALCIUM TOTAL)(Performed 07/23/2016) * CBC W AUTO DIFFERENTIAL(Performed 07/23/2016) * CBC W AUTO DIFFERENTIAL(Performed 07/23/2016) * BASIC METABOLIC PANEL (CALCIUM TOTAL)(Performed 07/22/2016) * DIFFERENTIAL MANUAL(Performed 07/22/2016) * CBC W AUTO DIFFERENTIAL(Performed 07/22/2016) * CBC W AUTO DIFFERENTIAL(Performed 07/22/2016) * BASIC METABOLIC PANEL (CALCIUM TOTAL)(Performed 07/21/2016) * CBC W AUTO DIFFERENTIAL(Performed 07/21/2016) * CBC W AUTO DIFFERENTIAL(Performed 07/21/2016) * BASIC METABOLIC PANEL (CALCIUM TOTAL)(Performed 07/20/2016) * CBC W AUTO DIFFERENTIAL(Performed 07/20/2016) * CBC W AUTO DIFFERENTIAL(Performed 07/20/2016) * GLUCOSE ACCUCHECK(Performed 07/19/2016) * BASIC METABOLIC PANEL (CALCIUM TOTAL)(Performed 07/19/2016) * CBC W AUTO DIFFERENTIAL(Performed 07/19/2016) * CBC W AUTO DIFFERENTIAL(Performed 07/19/2016) * GLUCOSE ACCUCHECK(Performed 07/18/2016) * GLUCOSE ACCUCHECK(Performed 07/18/2016) * GLUCOSE ACCUCHECK(Performed 07/18/2016) * GLUCOSE ACCUCHECK(Performed 07/18/2016) * DIFFERENTIAL MANUAL(Performed 07/18/2016) * BASIC METABOLIC PANEL (CALCIUM TOTAL)(Performed 07/18/2016) * CBC W AUTO DIFFERENTIAL(Performed 07/18/2016) * CBC W AUTO DIFFERENTIAL(Performed 07/18/2016) * GLUCOSE ACCUCHECK(Performed 07/17/2016) * GLUCOSE ACCUCHECK(Performed 07/17/2016) * GLUCOSE ACCUCHECK(Performed 07/17/2016) * GLUCOSE ACCUCHECK(Performed 07/17/2016) * CALCIUM IONIZED WHOLE BLOOD(Performed 07/17/2016) * CBC W AUTO DIFFERENTIAL(Performed 07/17/2016) * BASIC METABOLIC PANEL (CALCIUM TOTAL)(Performed 07/17/2016) * PT-INR SLH(Performed 07/17/2016) * CBC W AUTO DIFFERENTIAL(Performed 07/17/2016) * GLUCOSE ACCUCHECK(Performed 07/16/2016) * GLUCOSE ACCUCHECK(Performed 07/16/2016) * GLUCOSE ACCUCHECK(Performed 07/16/2016) * GLUCOSE ACCUCHECK(Performed 07/16/2016) * BASIC METABOLIC PANEL (CALCIUM TOTAL)(Performed 07/16/2016) * CBC W AUTO DIFFERENTIAL(Performed 07/16/2016) * CBC W AUTO DIFFERENTIAL(Performed 07/16/2016) * GLUCOSE ACCUCHECK(Performed 07/15/2016) * GLUCOSE ACCUCHECK(Performed 07/15/2016) * GLUCOSE ACCUCHECK(Performed 07/15/2016) * GLUCOSE ACCUCHECK(Performed 07/15/2016) * BASIC METABOLIC PANEL (CALCIUM TOTAL)(Performed 07/15/2016) * CBC W AUTO DIFFERENTIAL(Performed 07/15/2016) * CBC W AUTO DIFFERENTIAL(Performed 07/15/2016) * GLUCOSE ACCUCHECK(Performed 07/14/2016) * GLUCOSE ACCUCHECK(Performed 07/14/2016) * GLUCOSE ACCUCHECK(Performed 07/14/2016) * PT-INR SLH(Performed 07/14/2016) * BASIC METABOLIC PANEL (CALCIUM TOTAL)(Performed 07/14/2016) * CALCIUM IONIZED WHOLE BLOOD(Performed 07/14/2016) * CBC W AUTO DIFFERENTIAL(Performed 07/14/2016) * CBC W AUTO DIFFERENTIAL(Performed 07/14/2016) * GLUCOSE ACCUCHECK(Performed 07/14/2016) * URINALYSIS W/MICROSCOPIC NO CULTURE(Performed 07/14/2016) * GLUCOSE ACCUCHECK(Performed 07/13/2016) * GLUCOSE ACCUCHECK(Performed 07/13/2016) * IR US GUIDE VASCULAR ACCESS(Performed 07/13/2016) * IR PICC LINE INSERT(Performed 07/13/2016) * IR CENTRAL LINE INSERT TUNNEL(Performed 07/13/2016) * GLUCOSE ACCUCHECK(Performed 07/13/2016) * GLUCOSE ACCUCHECK(Performed 07/13/2016) * DRUG ABUSE PANEL 10-20+ETHANOL URINE NO CONFIRM(Performed 07/13/2016) * HCG URINE QUALITATIVE(Performed 07/13/2016) * URINALYSIS W/MICROSCOPIC NO CULTURE(Performed 07/13/2016) * GLUCOSE ACCUCHECK(Performed 07/12/2016) * GLUCOSE ACCUCHECK(Performed 07/12/2016) * GLUCOSE ACCUCHECK(Performed 07/12/2016) * GLUCOSE ACCUCHECK(Performed 07/12/2016) * CBC W AUTO DIFFERENTIAL(Performed 07/12/2016) * BASIC METABOLIC PANEL (CALCIUM TOTAL)(Performed 07/12/2016) * CBC W AUTO DIFFERENTIAL(Performed 07/12/2016) * HEPATITIS B SURFACE ANTIBODY(Performed 07/12/2016) * HEPATITIS B CORE ANTIBODY TOTAL(Performed 07/12/2016) * HEPATITIS C ANTIBODY(Performed 07/12/2016) * HEPATITIS B SURFACE ANTIGEN W RFLX CONFIRMATION(Performed 07/12/2016) * MRI CERVICAL SPINE WWO CONT(Performed 07/12/2016) * MRI THORACIC SPINE WWO CONT(Performed 07/12/2016) * MRI BRAIN WWO CONTRAST(Performed 07/12/2016) * T4 FREE(Performed 07/11/2016) * TSH(Performed 07/11/2016) * COMPREHENSIVE METABOLIC PANEL(Performed 07/11/2016) * ALCOHOL ETHYL BLOOD(Performed 07/11/2016) * CBC W AUTO DIFFERENTIAL(Performed 07/11/2016) * CBC W AUTO DIFFERENTIAL(Performed 07/11/2016) * CBC W AUTO DIFFERENTIAL(Performed 06/14/2016) * COMPREHENSIVE METABOLIC PANEL(Performed 06/14/2016) * STRATIFY JCV AB RFLX TO INHIBITION ASSAY(Performed 06/14/2016) * COMPREHENSIVE METABOLIC PANEL(Performed 04/21/2016) * CBC W AUTO DIFFERENTIAL(Performed 04/21/2016) * LAB MISC TEST(Performed 04/21/2016) * CBC W AUTO DIFFERENTIAL(Performed 04/21/2016) * STRATIFY JCV AB RFLX TO INHIBITION ASSAY(Performed 04/07/2016) * LAB MISC TEST(Performed 03/24/2016) * COMPREHENSIVE METABOLIC PANEL(Performed 03/24/2016) * CBC W AUTO DIFFERENTIAL(Performed 03/24/2016) * CBC W AUTO DIFFERENTIAL(Performed 03/24/2016) * CBC W AUTO DIFFERENTIAL(Performed 02/25/2016) * COMPREHENSIVE METABOLIC PANEL(Performed 02/25/2016) * LAB MISC TEST(Performed 02/25/2016) * CBC W AUTO DIFFERENTIAL(Performed 02/25/2016) * PAP LB HPV HR DNA(Performed 01/31/2016) Performed for Well woman exam * HEPATITIS C ANTIBODY(Performed 01/31/2016) * RPR(Performed 01/31/2016) * HIV-1 HIV-2 ANTIBODY + HIV P24 AG PANEL(Performed 01/31/2016) * CHLAMYDIA + GC AMPLIFIED PROBE(Performed 01/31/2016) * STRATIFY JCV AB RFLX TO INHIBITION ASSAY(Performed 01/13/2016) * COMPREHENSIVE METABOLIC PANEL(Performed 01/13/2016) * CBC W AUTO DIFFERENTIAL(Performed 01/13/2016) * STRATIFY JCV AB INHIBITION ASSAY(Performed 01/13/2016) * STRATIFY JCV AB RFLX TO INHIBITION ASSAY(Performed 10/08/2015) * STRATIFY JCV AB INHIBITION ASSAY(Performed 10/08/2015) * STRATIFY JCV AB INHIBITION ASSAY(Performed 07/02/2015) * CBC W AUTO DIFFERENTIAL(Performed 07/02/2015) * COMPREHENSIVE METABOLIC PANEL(Performed 07/02/2015) * STRATIFY JCV AB RFLX TO INHIBITION ASSAY(Performed 07/02/2015) * HCG URINE QUALITATIVE - POCT (IP) SLH(Performed 05/07/2015) * URINALYSIS REFLEX TO MICROSCOPIC NO CULTURE(Performed 05/07/2015) * DRUG ABUSE PANEL 10-20+ETHANOL URINE NO CONFIRM(Performed 05/07/2015) * COMPREHENSIVE METABOLIC PANEL(Performed 05/07/2015) * CBC W AUTO DIFFERENTIAL(Performed 05/07/2015) * CBC W AUTO DIFFERENTIAL(Performed 05/07/2015) * MRI CERVICAL SPINE WWO CONT(Performed 05/03/2015) * MRI THORACIC SPINE WWO CONT(Performed 05/03/2015) * MRI BRAIN WWO CONTRAST(Performed 05/03/2015) * HCG URINE QUALITATIVE - POCT (IP) SLH(Performed 05/02/2015) * DRUG ABUSE PANEL 10-20+ETHANOL URINE NO CONFIRM(Performed 05/02/2015) * URINALYSIS REFLEX TO MICROSCOPIC NO CULTURE(Performed 05/02/2015) * XR CHEST 2VW(Performed 05/02/2015) * DIFFERENTIAL MANUAL(Performed 05/02/2015) * CBC W AUTO DIFFERENTIAL(Performed 05/02/2015) * ALCOHOL ETHYL BLOOD(Performed 05/02/2015) * COMPREHENSIVE METABOLIC PANEL(Performed 05/02/2015) * CBC W AUTO DIFFERENTIAL(Performed 05/02/2015) * VITAMIN D 25-HYDROXY D2+D3(Performed 02/26/2015) * STRATIFY JCV AB RFLX TO INHIBITION ASSAY(Performed 02/26/2015) * COMPREHENSIVE METABOLIC PANEL(Performed 01/08/2015) * CBC W AUTO DIFFERENTIAL(Performed 01/08/2015) * CBC W AUTO DIFFERENTIAL(Performed 01/08/2015) * CBC W AUTO DIFFERENTIAL(Performed 12/20/2014) * DIFFERENTIAL MANUAL(Performed 12/20/2014) * COMPREHENSIVE METABOLIC PANEL(Performed 12/20/2014) * ALCOHOL ETHYL BLOOD(Performed 12/20/2014) * CBC W AUTO DIFFERENTIAL(Performed 12/20/2014) * COMPREHENSIVE METABOLIC PANEL(Performed 12/11/2014) * CBC W AUTO DIFFERENTIAL(Performed 12/11/2014) * CBC W AUTO DIFFERENTIAL(Performed 12/11/2014) * STRATIFY JCV AB RFLX TO INHIBITION ASSAY(Performed 11/17/2014) * STRATIFY JCV AB INHIBITION ASSAY(Performed 11/17/2014) * HEPATIC FUNCTION PANEL(Performed 11/13/2014) * CBC W AUTO DIFFERENTIAL(Performed 11/13/2014) * CBC W AUTO DIFFERENTIAL(Performed 11/13/2014) * HEPATIC FUNCTION PANEL(Performed 10/16/2014) * CBC W AUTO DIFFERENTIAL(Performed 10/16/2014) * CBC W AUTO DIFFERENTIAL(Performed 10/16/2014) * STRATIFY JCV AB RFLX TO INHIBITION ASSAY(Performed 09/11/2014) * STRATIFY JCV AB INHIBITION ASSAY(Performed 09/11/2014) * DIFFERENTIAL MANUAL(Performed 09/11/2014) * CBC W AUTO DIFFERENTIAL(Performed 09/11/2014) * CBC W AUTO DIFFERENTIAL(Performed 09/11/2014) * HEPATIC FUNCTION PANEL(Performed 09/11/2014) * LAB MISC TEST(Performed 09/11/2014) * HEPATIC FUNCTION PANEL(Performed 08/14/2014) * CBC W AUTO DIFFERENTIAL(Performed 08/14/2014) * CBC W AUTO DIFFERENTIAL(Performed 08/14/2014) * CBC W AUTO DIFFERENTIAL(Performed 07/10/2014) * HEPATIC FUNCTION PANEL(Performed 07/10/2014) * CBC W AUTO DIFFERENTIAL(Performed 07/10/2014) * MRI BRAIN WWO CONTRAST(Performed 06/25/2014) * CREATININE BLOOD - POCT (IP) SLH(Performed 06/25/2014) * VITAMIN D 25-HYDROXY(Performed 06/12/2014) * HEPATIC FUNCTION PANEL(Performed 06/12/2014) * CBC W AUTO DIFFERENTIAL(Performed 06/12/2014) * CBC W AUTO DIFFERENTIAL(Performed 06/12/2014) * STRATIFY JCV AB INHIBITION ASSAY(Performed 06/02/2014) * STRATIFY JCV AB RFLX TO INHIBITION ASSAY(Performed 06/02/2014) * HEPATIC FUNCTION PANEL(Performed 05/15/2014) * CBC W AUTO DIFFERENTIAL(Performed 05/15/2014) * CBC W AUTO DIFFERENTIAL(Performed 05/15/2014) * HEPATIC FUNCTION PANEL(Performed 04/10/2014) * CBC W AUTO DIFFERENTIAL(Performed 04/10/2014) * DIFFERENTIAL MANUAL(Performed 04/10/2014) * CBC W AUTO DIFFERENTIAL(Performed 04/10/2014) * HEPATIC FUNCTION PANEL(Performed 03/09/2014) * CBC W AUTO DIFFERENTIAL(Performed 03/09/2014) * CBC W AUTO DIFFERENTIAL(Performed 03/09/2014) * STRATIFY JCV AB INHIBITION ASSAY(Performed 03/05/2014) * STRATIFY JCV AB RFLX TO INHIBITION ASSAY(Performed 03/05/2014) * PROLACTIN(Performed 02/21/2014) * GLUCOSE ACCUCHECK(Performed 02/19/2014) * GLUCOSE ACCUCHECK(Performed 02/19/2014) * BASIC METABOLIC PANEL (CALCIUM TOTAL)(Performed 02/19/2014) * DIFFERENTIAL MANUAL(Performed 02/19/2014) * CBC W AUTO DIFFERENTIAL(Performed 02/19/2014) * CBC W AUTO DIFFERENTIAL(Performed 02/19/2014) * GLUCOSE ACCUCHECK(Performed 02/18/2014) * TSH(Performed 02/11/2014) * DRUG ABUSE PANEL 10-20+ETHANOL URINE NO CONFIRM(Performed 02/11/2014) * URINALYSIS REFLEX TO MICROSCOPIC NO CULTURE(Performed 02/11/2014) * HCG URINE QUALITATIVE(Performed 02/11/2014) * MRI BRAIN WWO CONTRAST(Performed 02/10/2014) * DIFFERENTIAL MANUAL(Performed 02/10/2014) * COMPREHENSIVE METABOLIC PANEL(Performed 02/10/2014) * CBC W AUTO DIFFERENTIAL(Performed 02/10/2014) * SALICYLATE LEVEL BLOOD(Performed 02/10/2014) * ACETAMINOPHEN LEVEL(Performed 02/10/2014) * CBC W AUTO DIFFERENTIAL(Performed 02/10/2014) * CT HEAD WO CONTRAST(Performed 02/10/2014) * EKG 12-LEAD(Performed 02/10/2014) * COMPREHENSIVE METABOLIC PANEL(Performed 02/02/2014) * CBC W AUTO DIFFERENTIAL(Performed 02/02/2014) * DIFFERENTIAL MANUAL(Performed 02/02/2014) * CBC W AUTO DIFFERENTIAL(Performed 02/02/2014) * HEPATIC FUNCTION PANEL(Performed 12/04/2013) * LAB MISC TEST(Performed 12/04/2013) * CBC W AUTO DIFFERENTIAL(Performed 12/04/2013) * DIFFERENTIAL MANUAL(Performed 12/04/2013) * CBC W AUTO DIFFERENTIAL(Performed 12/04/2013) * LAB MISC TEST(Performed 11/07/2013) * MRI BRAIN WWO CONTRAST(Performed 10/17/2013) * MRI CERVICAL SPINE WWO CONT(Performed 10/17/2013) * MRI THORACIC SPINE WWO CONT(Performed 10/17/2013) * LAB MISC TEST(Performed 10/10/2013) * CBC W AUTO DIFFERENTIAL(Performed 10/10/2013) * DIFFERENTIAL MANUAL(Performed 10/10/2013) * CBC W AUTO DIFFERENTIAL(Performed 10/10/2013) * HEPATIC FUNCTION PANEL(Performed 10/10/2013) * LAB MISC TEST(Performed 09/12/2013) * CBC W AUTO DIFFERENTIAL(Performed 09/12/2013) * DIFFERENTIAL MANUAL(Performed 09/12/2013) * HEPATIC FUNCTION PANEL(Performed 09/12/2013) * CBC W AUTO DIFFERENTIAL(Performed 09/12/2013) * LAB HISTORICAL RESULTS-ONBASE(Performed 09/12/2013) * CBC W AUTO DIFFERENTIAL(Performed 08/15/2013) * DIFFERENTIAL MANUAL(Performed 08/15/2013) * CBC W AUTO DIFFERENTIAL(Performed 08/15/2013) * CBC W AUTO DIFFERENTIAL(Performed 07/18/2013) * DIFFERENTIAL MANUAL(Performed 07/18/2013) * CBC W AUTO DIFFERENTIAL(Performed 07/18/2013) * HEPATIC FUNCTION PANEL(Performed 07/18/2013) * DIFFERENTIAL MANUAL(Performed 06/20/2013) * CBC W AUTO DIFFERENTIAL(Performed 06/20/2013) * HEPATIC FUNCTION PANEL(Performed 06/20/2013) * CBC W AUTO DIFFERENTIAL(Performed 06/20/2013) * STRATIFY JCV AB RFLX TO INHIBITION ASSAY(Performed 05/28/2013) * VITAMIN D 25-HYDROXY D2+D3(Performed 05/28/2013) * STRATIFY JCV AB INHIBITION ASSAY(Performed 05/28/2013) * VITAMIN D 25-HYDROXY(Performed 05/21/2013) * HEPATIC FUNCTION PANEL(Performed 05/21/2013) * CBC W AUTO DIFFERENTIAL(Performed 05/21/2013) * SUE VIRUS PCR QUALITATIVE(Performed 05/21/2013) * HEPATIC FUNCTION PANEL(Performed 04/23/2013) * CBC W AUTO DIFFERENTIAL(Performed 04/23/2013) * HEPATIC FUNCTION PANEL(Performed 03/26/2013) * CBC W AUTO DIFFERENTIAL(Performed 03/26/2013) * HEPATIC FUNCTION PANEL(Performed 02/26/2013) * CBC W AUTO DIFFERENTIAL(Performed 02/26/2013) * HEPATIC FUNCTION PANEL(Performed 01/29/2013) * CBC W AUTO DIFFERENTIAL(Performed 01/29/2013) * COMPREHENSIVE METABOLIC PANEL(Performed 01/01/2013) * FUNGUS RUTHIE - POINT OF CARE (AMB) SLU(Performed 12/31/2012) * WET PREP - POINT OF CARE (AMB) SLU(Performed 12/31/2012) * COMPREHENSIVE METABOLIC PANEL(Performed 12/04/2012) * CBC W AUTO DIFFERENTIAL(Performed 12/04/2012) * HEPATIC FUNCTION PANEL(Performed 11/06/2012) * CBC W AUTO DIFFERENTIAL(Performed 11/06/2012) * VITAMIN D 25-HYDROXY D2+D3(Performed 10/31/2012) * STRATIFY JCV AB RFLX TO INHIBITION ASSAY(Performed 10/31/2012) * HEPATIC FUNCTION PANEL(Performed 10/09/2012) * CBC W AUTO DIFFERENTIAL(Performed 10/09/2012) * HEPATIC FUNCTION PANEL(Performed 09/11/2012) * CBC W AUTO DIFFERENTIAL(Performed 09/11/2012) * HEPATIC FUNCTION PANEL(Performed 08/14/2012) * CBC W AUTO DIFFERENTIAL(Performed 08/14/2012) * CBC W AUTO DIFFERENTIAL(Performed 07/17/2012) * HEPATIC FUNCTION PANEL(Performed 07/17/2012) * HEPATIC FUNCTION PANEL(Performed 06/19/2012) * CBC W AUTO DIFFERENTIAL(Performed 06/19/2012) * HEPATIC FUNCTION PANEL(Performed 05/22/2012) * CBC W AUTO DIFFERENTIAL(Performed 05/22/2012) * STRATIFY JCV AB RFLX TO INHIBITION ASSAY(Performed 05/16/2012) * STRATIFY JCV AB INHIBITION ASSAY(Performed 05/16/2012) * MRI THORACIC SPINE WWO CONT(Performed 05/16/2012) * MRI CERVICAL SPINE WWO CONT(Performed 05/16/2012) * COMPREHENSIVE METABOLIC PANEL(Performed 05/01/2012) * VITAMIN D 25-HYDROXY(Performed 05/01/2012) * HEPATIC FUNCTION PANEL(Performed 05/01/2012) * CBC W AUTO DIFFERENTIAL(Performed 05/01/2012) * GLUCOSE ACCUCHECK(Performed 01/15/2012) * CULTURE URINE(Performed 01/15/2012) * GLUCOSE ACCUCHECK(Performed 01/15/2012) * CBC W/O DIFFERENTIAL(Performed 01/15/2012) * BASIC METABOLIC PANEL (CALCIUM TOTAL)(Performed 01/15/2012) * GLUCOSE ACCUCHECK(Performed 01/14/2012) * GLUCOSE ACCUCHECK(Performed 01/14/2012) * GLUCOSE ACCUCHECK(Performed 01/14/2012) * GLUCOSE ACCUCHECK(Performed 01/14/2012) * CBC W/O DIFFERENTIAL(Performed 01/14/2012) * BASIC METABOLIC PANEL (CALCIUM TOTAL)(Performed 01/14/2012) * GLUCOSE ACCUCHECK(Performed 01/13/2012) * GLUCOSE ACCUCHECK(Performed 01/13/2012) * GLUCOSE ACCUCHECK(Performed 01/13/2012) * URINALYSIS REFLEX TO MICROSCOPIC NO CULTURE(Performed 01/13/2012) * GLUCOSE ACCUCHECK(Performed 01/13/2012) * CBC W/O DIFFERENTIAL(Performed 01/13/2012) * BASIC METABOLIC PANEL (CALCIUM TOTAL)(Performed 01/13/2012) * VITAMIN D 25-HYDROXY(Performed 01/12/2012) * VITAMIN D 1,25 DIHYDROXY(Performed 01/12/2012) * MRI LUMBAR SPINE WWO CONTRAST(Performed 01/12/2012) * MRI THORACIC SPINE WWO CONT(Performed 01/12/2012) * MRI CERVICAL SPINE WWO CONT(Performed 01/12/2012) * MRI BRAIN WWO CONTRAST(Performed 01/12/2012) * COMPREHENSIVE METABOLIC PANEL(Performed 01/12/2012) * CBC W AUTO DIFFERENTIAL(Performed 01/12/2012) * LAB HISTORICAL RESULTS-ONBASE(Performed 12/12/2011) * EKG 12-LEAD(Performed 12/05/2011) * STRATIFY JCV AB RFLX TO INHIBITION ASSAY(Performed 12/04/2011) * GLUCOSE ACCUCHECK(Performed 11/21/2011) * GLUCOSE ACCUCHECK(Performed 11/21/2011) * GLUCOSE ACCUCHECK(Performed 11/21/2011) * GLUCOSE ACCUCHECK(Performed 11/20/2011) * GLUCOSE ACCUCHECK(Performed 11/20/2011) * GLUCOSE ACCUCHECK(Performed 11/19/2011) * GLUCOSE ACCUCHECK(Performed 11/19/2011) * GLUCOSE ACCUCHECK(Performed 11/19/2011) * GLUCOSE ACCUCHECK(Performed 11/18/2011) * MRI ORBITS OR FACE WWO CONTRAST(Performed 11/18/2011) * HCG URINE QUALITATIVE(Performed 11/18/2011) * URINALYSIS REFLEX TO MICROSCOPIC NO CULTURE(Performed 11/18/2011) * URINALYSIS REFLEX TO MICROSCOPIC NO CULTURE(Performed 11/18/2011) * CULTURE URINE(Performed 11/18/2011) * TSH(Performed 11/17/2011) * COMPREHENSIVE METABOLIC PANEL(Performed 11/17/2011) * CBC W AUTO DIFFERENTIAL(Performed 11/17/2011) * VITAMIN D 25-HYDROXY(Performed 11/17/2011) * VITAMIN B12(Performed 11/17/2011) * HEPATIC FUNCTION PANEL(Performed 10/18/2011) * CBC W AUTO DIFFERENTIAL(Performed 10/18/2011) * LAB HISTORICAL RESULTS-ONBASE(Performed 07/19/2011) * STRATIFY JCV AB RFLX TO INHIBITION ASSAY(Performed 07/12/2011) * TSH(Performed 07/06/2011) * COMPREHENSIVE METABOLIC PANEL(Performed 07/06/2011) * VARICELLA ZOSTER ANTIBODY IGG(Performed 07/06/2011) * CBC W AUTO DIFFERENTIAL(Performed 07/06/2011) * FOLATE(Performed 07/06/2011) * VITAMIN D 25-HYDROXY(Performed 07/06/2011) * VITAMIN B12(Performed 07/06/2011) * PATHOLOGY REPORTS - HPF HISTORICAL(Performed 01/13/2011) * HEPATIC FUNCTION PANEL(Performed 12/22/2010) * LAB MICROBIOLOGY - HPF HISTORICAL(Performed 11/05/2010) * CBC W AUTO DIFFERENTIAL(Performed 04/01/2010) * HEPATIC FUNCTION PANEL(Performed 04/01/2010) * BASIC METABOLIC PANEL (CALCIUM TOTAL)(Performed 04/01/2010) * CBC W AUTO DIFFERENTIAL(Performed 04/01/2010) * PAP THINPREP(Performed 12/22/2009) * LAB HISTORICAL RESULTS-ONBASE(Performed 10/01/2009) * LAB MICROBIOLOGY - HPF HISTORICAL(Performed 04/10/2009) Results * (ABNORMAL) CULTURE URINE (12/11/2023 12:57 PM CDT) Only the most recent of3 resultswithin the time period is included. Culture Urine >100,000 CFU/mL Escherichia coli(A) TAMMY 12/13/2023 6:[address] [facility] MICROBIOLOGY Urine URINE SPECIMEN OBTAINED BY CLEAN CATCH PROCEDURE / Unknown Collection / Unknown 12/11/2023 12:57 PM CDT 12/11/2023 1:02 PM CDT Narrative Organism Antibiotic Method Susceptibility Escherichia coli Amikacin TAMMY <=2 ug/mL: Susceptible Escherichia coli Ampicillin TAMMY 8 ug/mL: Susceptible Escherichia coli Ampicillin-sulbactam TAMMY <=2 ug/mL: Susceptible Escherichia coli Cefazolin TAMMY <=4 ug/mL: See Comment* Escherichia coli Cefazolin-Urine (uncomplicated infections ONLY) TAMMY <=4 ug/mL: Susceptible Escherichia coli Cefepime TAMMY <=1 ug/mL: Susceptible Escherichia coli Ceftriaxone TAMMY <=1 ug/mL: Susceptible Escherichia coli Ciprofloxacin TAMMY >=4 ug/mL: Resistant Escherichia coli Gentamicin TAMMY >=16 ug/mL: Resistant Escherichia coli Meropenem TAMMY <=0.25 ug/mL: Susceptible Escherichia coli Nitrofurantoin TAMMY <=16 ug/mL: Susceptible Escherichia coli Piperacillin-tazobactam TAMMY <=4 ug/mL: Susceptible Escherichia coli Tobramycin TAMMY 8 ug/mL: Resistant Escherichia coli Trimethoprim-sulfame thoxaz ole TAMMY <=20 ug/mL: Susceptible Comment: *Cefazolin TAMMY of </=4 cannot distinguish between susceptible or intermediate for systemic breakpoints. If further defined interpretation is needed, call Microbiology and a disk diffusion test will be performed. Urine breakpoints for cefazolin should only be used when treating uncomplicated UTIs including men and women without urologic abnormality, kidney stones, stents, nephrostomy tubes, signs/symptoms of systemic illness, or pelvic/perineal pain in men. Cefazolin results can be used to predict susceptibility to oral cephalosporins - cephalexin, cefprozil, cefaclor, cefuroxime, cefdinir, and cefpodoxime. For complicated UTIs, use alternative cefazolin susceptibility result above. Jaison Umaña MD LAB - MICROBIO LOGY ORDERABLES [facility] MICROBIOLOGY [address] [place] [address], [facility] [phone] * (ABNORMAL) URINALYSIS REFLEX TO MICROSCOPIC NO CULTURE (12/10/2023 1:39 PM CDT) Only the most recent of11 resultswithin the time period is included. Color UA Yellow Straw, Yellow 12/10/2023 2:01 PM [facility] Clarity UA Cloudy(A) Clear 12/10/2023 2:01 PM [facility] Specific [place] UA 1.011 1.005 - 1.030 12/10/2023 2:01 PM [facility] pH UA 5.0 5.0 - 8.0 pH 12/10/2023 2:01 PM [facility] Protein UA Negative Negative 12/10/2023 2:01 PM [facility] Glucose UA Negative Negative 12/10/2023 2:01 PM [facility] Ketone UA Negative Negative 12/10/2023 2:01 PM [facility] Bilirubin UA Negative Negative 12/10/2023 2:01 PM [facility] Blood UA Negative Negative 12/10/2023 2:01 PM [facility] Nitrite UA Negative Negative 12/10/2023 2:01 PM [facility] Leukocyte Esterase 3+(A) Negative 12/10/2023 2:01 PM [facility] Urobilinogen UA Negative Negative mg/dL 12/10/2023 2:01 PM [facility] RBC UA 21-50(A) None Seen, 0-2, 3-5 /HPF 12/10/2023 2:01 PM [facility] WBC UA >100(A) None Seen, 0-5 /HPF 12/10/2023 2:01 PM [facility] Bacteria UA Trace(A) None /HPF 12/10/2023 2:01 PM [facility] Squamous Epithelial Cells UA 11-20(A) None Seen, 0-2, 3-5 /HPF 12/10/2023 2:01 PM [facility] Mucus UA 3+ /LPF 12/10/2023 2:01 PM [facility] Amorphous Crystals Rare(A) None /HPF 12/10/2023 2:01 PM [facility] Urine URINE SPECIMEN OBTAINED BY CLEAN CATCH PROCEDURE / Unknown Collection / Unknown 12/10/2023 1:39 PM CDT 12/10/2023 1:44 PM CDT Narrative [facility] - 12/10/2023 2:01 PM CDT Jaison Umaña MD LAB - URINALYS IS ORDERABLES [facility] [address] [place] [address], [facility] [phone] * (ABNORMAL) LIPID PROFILE (12/03/2023 5:45 AM CDT) Only the most recent of2 resultswithin the time period is included. [facility] Cholesterol Total 215(H) <200 mg/dL 12/03/2023 6:21 AM [facility] HDL 60 >40 mg/dL 12/03/2023 6:21 AM [facility] Comment: ATP III Classification of HDL Cholesterol: ? <40 mg/dL: ??Considered a major risk factor. ? >60 mg/dL: ??Considered a negative risk factor. ? LDL Calculated 139(H) <100 mg/dL 12/03/2023 6:21 AM [facility] Comment: ATP III Classification of LDL Cholesterol: ?<100 mg/dL: ??Optimal ? 100 - 129 mg/dL: ??Near Optimal/Above Optimal ? 130 - 159 mg/dL: ??Borderline High ? 160 - 189 mg/dL: ??High ?>190 mg/dL: ??Very High ? Triglycerides 78 <150 mg/dL 12/03/2023 6:21 AM [facility] Comment: ATP III Classification of Triglycerides: ?<150 mg/dL: ??Normal ? 150 - 199 mg/dL: ??Borderline High ? 200 - 400 mg/dL: ??High ?>500 mg/dL: ??Very High Blood BLOOD SPECIMEN / Unknown Venipuncture / Unknown 12/03/2023 5:45 AM CDT 12/03/2023 5:51 AM CDT May Zamoragers DO LAB - CHEMISTRY ORDE DILIA [facility] [address] [place] [phone], [facility] [phone] * CARDIAC EKG ORDER (11/27/2023 11:16 AM CDT) Only the most recent of2 resultswithin the time period is included. Narrative 11/27/2023 11:16 AM CDT Ordered by an unspecified provider. Scanned Document CARDIAC SERVICES ORD ERABLES * (ABNORMAL) URINE DRUG SCREEN IMMUNOASSAY (11/26/2023 10:24 PM CDT) Only the most recent of3 resultswithin the time period is included. Amphetamines Screen Urine Negative Negative : < 1000 ng/mL 11/26/2023 10:51 PM [facility] Barbiturates Screen Urine Negative Negative : < 200 ng/mL 11/26/2023 10:51 PM [facility] Benzodiazepine Screen Urine Positive(A) Negative : < 200 ng/mL 11/26/2023 10:51 PM [facility] Comment: Positive urine benzodiazepine screening results should be confirmed by another generally accepted non-immunological method such as gas chromatography or mass spectrometry. ? Opiates Urine Negative Negative : < 300 ng/mL 11/26/2023 10:51 PM [facility] Cocaine Metabolites Urine Negative Negative : < 300 ng/mL 11/26/2023 10:51 PM [facility] Phencyclidine Screen Urine Negative Negative : < 25 ng/ml 11/26/2023 10:51 PM [facility] Cannabinoids Screen Urine Positive(A) Negative : <50 ng/mL 11/26/2023 10:51 PM [facility] Comment:Positive urine canna binoids (THC) screening results should be confirmed by another generally accepted non-immunological method such as gas chromatography or mass spectrometry. Methadone Screen Urine Negative Negative : < 300 ng/mL 11/26/2023 10:51 PM CDT [facility] Fentanyl Screen Urine Negative Negative : <1.5 ng/mL 11/26/2023 10:51 PM CDT [facility] Urine URINE / Unknown 11/26/2023 1 0:24 PM CDT 11/26/2023 10:24 PM CDT Narrative [facility] - 11/26/2023 10:51 PM CDT The Urine Toxicology Screening Panel does not screen for Propoxyphene, Meprobamate, Carisoprodol, Trazodone, awsu-cwg-qopdvgi medications and/or volatiles (Acetone, Isopropanol, Methanol or Ethylene Glycol). Ethanol, Salicylate, Acetaminophen, Tricyclic Antidepressants and several therapeutic drugs may be individually assayed in serum or plasma specimen. Toxicology testing by the [facility] is an aid to medical diagnosis and treatment of patients. No documented chain of custody was maintained. Results are intended to be used for clinical purposes only. ? Richard Gayle MD LAB - URINE FAILURE ANALYSIS ENGINEER RY ORDERABLES Performing Organization Address [facility]/State/[facility] Co de Phone Number [facility] [address] [place] [phone], [place] [phone] * (ABNORMAL) CBC W AUTO DIFFERENTIAL (11/26/2023 6:23 PM CDT) Only the most recent of158 resultswithin the time period is included. WBC 8.4 4.0 - 10.7 x10E9/L 11/26/2023 6:35 PM [facility] RBC Count 4.46 3.90 - 5.20 x10E12/L 11/26/2023 6:35 PM [facility] Hemoglobin 10.8(L) 11.9 - 15.8 g/dL 11/26/2023 6:35 PM [facility] Hematocrit 34.6(L) 34.8 - 46.1 % 11/26/2023 6:35 PM [facility] MCV 77.6(L) 80.0 - 98.0 fL 11/26/2023 6:35 PM [facility] MCH 24.2(L) 26.7 - 33.6 pg 11/26/2023 6:35 PM [facility] MCHC 31.2(L) 31.7 - 36.3 g/dL 11/26/2023 6:35 PM [facility] RDW-CV 17.2(H) 11.3 - 14.8 % 11/26/2023 6:35 PM [facility] Platelet Count 296 150 - 420 x10E9/L 11/26/2023 6:35 PM [facility] MPV 9.1 7.8 - 11.4 fL 11/26/2023 6:35 PM [facility] Neutrophil % 70.9 41.0 - 74.0 % 11/26/2023 6:35 PM [facility] Lymphocyte % 15.7(L) 17.0 - 47.0 % 11/26/2023 6:35 PM [facility] Monocyte % 9.1 3.0 - 11.0 % 11/26/2023 6:35 PM [facility] Eosinophil % 3.4 0.0 - 7.0 % 11/26/2023 6:35 PM [facility] Basophil % 0.7 0.0 - 1.6 % 11/26/2023 6:35 PM [facility] Immature Granulocytes % 0.2 0.0 - 1.0 % 11/26/2023 6:35 PM [facility] Neutrophil Absolute 5.97 1.60 - 7.50 x10E9/L 11/26/2023 6:35 PM [facility] Lymphocyte Absolute 1.32 1.00 - 4.40 x10E9/L 11/26/2023 6:35 PM [facility] Monocyte Absolute 0.77 0.15 - 1.00 x10E9/L 11/26/2023 6:35 PM [facility] Eosinophil Absolute 0.29 0.00 - 0.60 x10E9/L 11/26/2023 6:35 PM [facility] Basophil Absolute 0.06 0.00 - 0.13 x10E9/L 11/26/2023 6:35 PM [facility] Blood BLOOD SPECIMEN / Unknown Venipuncture / Unknown 11/26/2023 6:23 PM CDT 11/26/2023 6:32 PM CDT Richard Gayle MD LAB - HEMATOLOGY OR DERABLES Performing Organization Address [facility]/State/ZIP Co de Phone Number [facility] [address] [place] [phone], [facility] [phone] * (ABNORMAL) COMPREHENSIVE METABOLIC PANEL (11/26/2023 6:23 PM CDT) Only the most recent of45 resultswithin the time period is included. BUN 19 7 - 26 mg/dL 11/26/2023 7:03 PM [facility] Creatinine 0.77 0.56 - 0.96 mg/dL 11/26/2023 7:03 PM [facility] Sodium 139 136 - 145 mmol/L 11/26/2023 7:03 PM [facility] Potassium 3.1(L) 3.5 - 4.5 mmol/L 11/26/2023 7:03 PM [facility] Chloride 112(H) 98 - 107 mmol/L 11/26/2023 7:03 PM [facility] CO2 19(L) 22 - 29 mmol/L 11/26/2023 7:03 PM [facility] Glucose 73 70 - 115 mg/dL 11/26/2023 7:03 PM [facility] Calcium 8.7 8.4 - 10.2 mg/dL 11/26/2023 7:03 PM [facility] Protein Total 6.3 6.0 - 8.3 g/dL 11/26/2023 7:03 PM [facility] Albumin 4.0 3.4 - 5.0 g/dL 11/26/2023 7:03 PM [facility] Bilirubin Total 0.2 0.2 - 1.2 mg/dL 11/26/2023 7:03 PM [facility] Alkaline Phosphatase 54 40 - 150 U/L 11/26/2023 7:03 PM [facility] ALT 9 5 - 55 U/L 11/26/2023 7:03 PM [facility] AST 10 5 - 34 U/L 11/26/2023 7:03 PM [facility] Anion Gap 8 6 - 16 11/26/2023 7:03 PM [facility] BUN/Creatinine Ratio 25(H) 7 - 23 11/26/2023 7:03 PM [facility] Osmolality Calculated 289 275 - 295 mOsm/kg 11/26/2023 7:03 PM [facility] Albumin/Globulin Ratio 1.7 1.1 - 2.3 11/26/2023 7:03 PM [facility] eGFR by CKD-EPI >90 >=90 mL/min/1.7 3 m2 11/26/2023 7:03 PM [facility] Blood BLOOD SPECIMEN / Unknown Venipuncture / Unknown 11/26/2023 6:23 PM CDT 11/26/2023 6:32 PM CDT Richard Gayle MD LAB - CHEMISTRY ORD ERABLES [facility] [address] [place] [address], [facility] [phone] * HCG BETA BLOOD QUANTITATIVE (11/26/2023 6:23 PM CDT) Only the most recent of5 resultswithin the time period is included. Pathologist [facility] Beta-hCG Total Quantitative <3 mIU/mL 11/26/2023 7:11 PM CDT [facility] Comment: HCG Numeric Result Interpretation: ? Non- Females: ? < 5 mIU/mL ? Post-Menopausal Females: ??< 7 mIU/mL ? This assay is cleared for use in the early detection of only. It is not approved for any other uses such as tumor marker screening, tumor marker monitoring, etc. and should not be used for any other purposes. Blood BLOOD SPECIMEN / Unknown Venipuncture / Unknown 11/26/2023 6:23 PM CDT 11/26/2023 6:32 PM CDT Richard Gayle MD LAB - CHEMISTRY ORD ERABLES Performing Organization Address City/[facility]/ZIP Co de Phone Number [address] [phone], [facility] [phone] * MAGNESIUM BLOOD (11/26/2023 6:23 PM CDT) Only the most recent of15 resultswithin the time period is included. [facility] Magnesium 1.9 1.6 - 2.6 mg/dL 11/26/2023 7:03 PM CDT [facility] Blood BLOOD SPECIMEN / Unknown Venipuncture / Unknown 11/26/2023 6:23 PM CDT 11/26/2023 6:32 PM CDT Richard Gayle MD LAB - CHEMISTRY ORD ERABLES Performing Organization Address City/[facility]/ZIP Co de Phone Number [address] [phone], [facility] [phone] * ALCOHOL ETHYL BLOOD (11/26/2023 6:23 PM CDT) Only the most recent of7 resultswithin the time period is included. [facility] Ethanol (mg/dL) <10 <10 mg/dL 7:03 PM CDT [facility] Ethanol Calculated (g/dL) <0.010 <=0.010 g/dL 11/26/2023 7:03 PM CDT [facility] Blood BLOOD SPECIMEN / Unknown Venipuncture / Unknown 11/26/2023 6:23 PM CDT 11/26/2023 6:32 PM CDT Narrative [facility] - 11/26/2023 7:03 PM CDT Ethanol Interp <10: None Detected. Depression of COMMERCIAL COORDINATOR: >100 mg/dl Potentially Critical: >250 mg/dl Potentially Fatal >400 mg/dl Ethanol in the patient's blood will contribute to the osmolar gap. Ethanol's contribution to the osmolar gap can be estimated by dividing the concentration of ethanol in mg/dL by 4.6. This test is for clinical use only and does not equal a RUDY for legal purposes. Richard Gayle MD LAB - CHEMISTRY ORD ERABLES [facility] [address] [place] [address], [facility] [phone] * EKG 12-LEAD (11/26/2023 6:11 PM CDT) Only the most recent of5 resultswithin the time period is included. Ventricular Rate 66 BPM [facility] M[facility] Atrial Rate 66 BPM [facility] P-R Interval 160 ms [facility] QRS Duration ms 88 ms [facility] Q-T Interval ms 402 ms [facility] QTC Calculation (Bezet) 421 ms [facility] Calculated P [place] -11 degrees [facility] M[facility] Calculated R [place] -20 degrees [facility] M[facility] Calculated T [place] -6 degrees [facility] M[facility] Interpretation EKG NORMAL SINUS RHYTHM WITH SINUS ARRHYTHMIA MODERATE VOLTAGE CRITERIA FOR LVH, MAY BE NORMAL VARIANT ( R in aVL , Sukhi product ) NONSPECIFIC ST ABNORMALITY ABNORMAL ECG WHEN COMPARED WITH ECG OF 21-NOV-2022 16:34, QUESTIONABLE CHANGE IN QRS AXIS T WAVE INVERSION NOW EVIDENT IN INFERIOR LEADS Confirmed by SHIREEN MCFADDEN MD ([id number]) on 11/30/2023 7:52:51 AM [facility] 11/26/2023 6:11 PM CDT 11/30/2023 7:52 AM CDT Richard Gayle MD ECG ORDERABLES [facility] * MRI CERVICAL SPINE WWO CONT (07/11/2023 3:36 PM CDT) Only the most recent of12 resultswithin the time period is included. Anatomical Region Laterality Modality Spine Magnetic Resonan ce 07/11/2023 3:54 PM CDT Impressions 07/11/2023 6:59 PM CDT IMPRESSION: MRI brain: Within the constraint of motion artifact as mentioned above, 1.Multiple intracranial white matter lesions compatible with multiple sclerosis. No new T2 lesions and no new enhancing lesions to suggest active demyelination. Moderate parenchymal volume loss is advanced for patient's stated age and similar to the prior study. MRI cervical spine: 1.Scattered intramedullary lesions compatible with the clinical history of multiple sclerosis. No new T2 intramedullary lesions and no new enhancing intramedullary lesions. ??. 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 > Dictated by Seng Acevedo DO (Spinner Operator) I, Damon Townsend MD have personally reviewed and interpreted this examination/study. > Interpreting Provider: Damon Townsend MD on 07/11/2023 6:59 PM Narrative 07/11/2023 6:59 PM CDT PROCEDURE: ??MRI BRAIN WWO CONTRAST, MRI CERVICAL SPINE WWO CONT, DATE/TIME OF EXAM: ??07/11/2023 3:36 PM, LOCATION ??[facility] INDICATION: G35: MS (multiple sclerosis) ([facility]) ADDITIONAL CLINICAL INFORMATION: Ordering Provider Reason For Exam: ??MS Technologist Note: ??None. Additional: ??None. CONTRAST: ??GADOBUTROL 1 MMOL/ML IV SSM SO:6 mL EXAMINATION: 1.Magnetic resonance imaging (MRI) of the brain without and with contrast 2.MRI of the cervical spine without and with contrast TECHNIQUE: 1.MRI of the brain was performed prior to and following the uneventful administration of 6 mL GADAVIST intravenous contrast according to a demyelination protocol. 2.MRI of the cervical spine was performed prior to and following the uneventful administration of 6 mL GADAVIST intravenous contrast according to a demyelination protocol. COMPARISON: MRI of the brain from 05/13/2022. MRI of the brain and cervical spine from 11/08/2020. FINDINGS: MRI Brain: Contrast enhanced images are significantly degraded by motion artifact. Within this constraint findings are as follows: No evidence of acute or chronic hemorrhage is identified. No evidence of acute cerebral infarction is seen. There is diffuse cerebral volume loss with associated ex vacuo ventricular dilatation. No mass effect or midline shift is seen. There are multiple foci of hyperintensity on T2 and FLAIR within the white matter, compatible with the clinical diagnosis of multiple sclerosis. T2/FLAIR hyperintensity is again seen along the undersurface of the corpus callosum, diffusely involving the callosal septal margin and the periventricular white matter appear similar in extent to the prior. Several of these lesions demonstrate T1 hypointensity consistent with MS black holes. No enhancing lesions are identified to suggest active demyelination. The sella appears normal. The posterior fossa, brainstem, and craniocervical junction appear grossly stable. The visualized portions of the orbits, paranasal sinuses, and mastoids appear normal. Normal flow voids are demonstrated in the carotid arteries and basilar artery. The calvarium and visualized cervical spine appear normal. Cervical spine: Trace anterolisthesis of C5 on C6. Trace anterolisthesis of C7 on T1. The alignment is otherwise maintained. Vertebral bodies are normal in height without evidence of compression fractures. Marrow signal intensity is normal. The craniocervical junction appears normal. Patchy foci of hyperintensity are noted throughout the cervical and visualized upper thoracic cord on the T2, IR and axial T2-weighted images, compatible with the history of multiple sclerosis. No abnormal enhancement is identified however, evaluation is significantly limited due to the presence of motion artifacts on the postcontrast axial images. There is mild disc height loss at multiple levels. No significant/high-grade central canal stenosis is seen. The facets appear mild normal. There are varying degrees of mild uncovertebral joint osteoarthritis with the same degree of neural foraminal stenosis at these levels. There is perhaps moderate left neural foraminal stenosis at the level of C5-C6. No soft tissue abnormality is identified. Normal flow voids are identified in the vertebral arteries. Procedure Note Damon Townsend MD - 07/11/2023 PROCEDURE: MRI BRAIN WWO CONTRAST, MRI CERVICAL SPINE WWO CONT,DATE/TIME OF EXAM: 07/11/2023 3:36 PM, LOCATION [facility] INDICATION: G35: MS (multiple sclerosis) ([facility]) ADDITIONAL CLINICAL INFORMATION: Ordering Provider Reason For Exam: MS Technologist Note: None. Additional: None. CONTRAST: GADOBUTROL 1 MMOL/ML IV SSM SO:6 mL EXAMINATION: 1.Magnetic resonance imaging (MRI) of the brain without and withcontrast 2.MRI of the cervical spine without and with contrast TECHNIQUE: 1.MRI of the brain was performed prior to and following the uneventful administration of 6 mL GADAVIST intravenous contrast according to a demyelination protocol. 2.MRI of the cervical spine was performed prior to and following the uneventful administration of 6 mL GADAVIST intravenous contrastaccording to a demyelination protocol. COMPARISON: MRI of the brain from 05/13/2022. MRI of the brain andcervical spine from 11/08/2020. FINDINGS: MRI Brain: Contrast enhanced images are significantly degraded by motion artifact. Within this constraint findings are as follows: No evidence of acute or chronic hemorrhage is identified. No evidence of acute cerebral infarction is seen. There is diffuse cerebral volume loss with associated ex vacuo ventricular dilatation. No mass effect ormidline shift is seen. There are multiple foci of hyperintensity on T2 and FLAIR within the white matter, compatible with the clinical diagnosis ofmultiple sclerosis. T2/FLAIR hyperintensity is again seen along the undersurfaceof the corpus callosum, diffusely involving the callosal septal margin andthe periventricular white matter appear similar in extent to the prior.Several of these lesions demonstrate T1 hypointensity consistent with MS black holes. No enhancing lesions are identified to suggest activedemyelination. The sella appears normal. The posterior fossa, brainstem, and craniocervical junction appear grossly stable. The visualized portions of the orbits, paranasal sinuses, and mastoids appear normal. Normal flow voids are demonstrated in the carotidarteries and basilar artery. The calvarium and visualized cervical spine appear normal. Cervical spine: Trace anterolisthesis of C5 on C6. Trace anterolisthesis of C7 on T1.The alignment is otherwise maintained. Vertebral bodies are normal in height without evidence of compression fractures. Marrow signal intensity is normal. The craniocervical junction appears normal. Patchy foci of hyperintensity are noted throughout the cervical and visualized upper thoracic cord on the T2, IR and axial T2-weighted images, compatiblewith the history of multiple sclerosis. No abnormal enhancement is identified however, evaluation is significantly limited due to the presence ofmotion artifacts on the postcontrast axial images. There is mild disc height loss at multiple levels. No significant/high-grade central canal stenosis is seen. The facets appear mild normal. There are varying degrees of mild uncovertebral joint osteoarthritis with the same degree of neural foraminal stenosis atthese levels. There is perhaps moderate left neural foraminal stenosis at the level of C5-C6. No soft tissue abnormality is identified. Normal flowvoids are identified in the vertebral arteries. IMPRESSION: MRI brain: Within the constraint of motion artifact as mentioned above, 1.Multiple intracranial white matter lesions compatible with multiple sclerosis. No new T2 lesions and no new enhancing lesions to suggestactive demyelination. Moderate parenchymal volume loss is advanced forpatient's stated age and similar to the prior study. MRI cervical spine: 1.Scattered intramedullary lesions compatible with the clinical historyof multiple sclerosis. No new T2 intramedullary lesions and no newenhancing intramedullary lesions. . 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 > Dictated by Seng Acevedo DO (Spinner Operator) IDamon MD have personally reviewed and interpretedthis examination/study. > Interpreting Provider: Damon Townsend MD on 07/11/2023 6:59 PM Karen Reyes MD MR ORDERABLES * MRI BRAIN WWO CONTRAST (07/11/2023 3:35 PM CDT) Only the most recent of15 resultswithin the time period is included. Anatomical Region Laterality Modality Head Magnetic Resonan ce 07/11/2023 3:54 PM CDT Impressions 07/11/2023 6:59 PM CDT IMPRESSION: MRI brain: Within the constraint of motion artifact as mentioned above, 1.Multiple intracranial white matter lesions compatible with multiple sclerosis. No new T2 lesions and no new enhancing lesions to suggest active demyelination. Moderate parenchymal volume loss is advanced for patient's stated age and similar to the prior study. MRI cervical spine: 1.Scattered intramedullary lesions compatible with the clinical history of multiple sclerosis. No new T2 intramedullary lesions and no new enhancing intramedullary lesions. ??. 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 > Dictated by Seng Acevedo DO (Spinner Operator) Damon Ahuja MD have personally reviewed and interpreted this examination/study. > Interpreting Provider: Damon Townsend MD on 07/11/2023 6:59 PM Narrative 07/11/2023 6:59 PM CDT PROCEDURE: ??MRI BRAIN WWO CONTRAST, MRI CERVICAL SPINE WWO CONT, DATE/TIME OF EXAM: ??07/11/2023 3:36 PM, LOCATION ??[facility] INDICATION: G35: MS (multiple sclerosis) ([facility]) ADDITIONAL CLINICAL INFORMATION: Ordering Provider Reason For Exam: ??MS Technologist Note: ??None. Additional: ??None. CONTRAST: ??GADOBUTROL 1 MMOL/ML IV SSM SO:6 mL EXAMINATION: 1.Magnetic resonance imaging (MRI) of the brain without and with contrast 2.MRI of the cervical spine without and with contrast TECHNIQUE: 1.MRI of the brain was performed prior to and following the uneventful administration of 6 mL GADAVIST intravenous contrast according to a demyelination protocol. 2.MRI of the cervical spine was performed prior to and following the uneventful administration of 6 mL GADAVIST intravenous contrast according to a demyelination protocol. COMPARISON: MRI of the brain from 05/13/2022. MRI of the brain and cervical spine from 11/08/2020. FINDINGS: MRI Brain: Contrast enhanced images are significantly degraded by motion artifact. Within this constraint findings are as follows: No evidence of acute or chronic hemorrhage is identified. No evidence of acute cerebral infarction is seen. There is diffuse cerebral volume loss with associated ex vacuo ventricular dilatation. No mass effect or midline shift is seen. There are multiple foci of hyperintensity on T2 and FLAIR within the white matter, compatible with the clinical diagnosis of multiple sclerosis. T2/FLAIR hyperintensity is again seen along the undersurface of the corpus callosum, diffusely involving the callosal septal margin and the periventricular white matter appear similar in extent to the prior. Several of these lesions demonstrate T1 hypointensity consistent with MS black holes. No enhancing lesions are identified to suggest active demyelination. The sella appears normal. The posterior fossa, brainstem, and craniocervical junction appear grossly stable. The visualized portions of the orbits, paranasal sinuses, and mastoids appear normal. Normal flow voids are demonstrated in the carotid arteries and basilar artery. The calvarium and visualized cervical spine appear normal. Cervical spine: Trace anterolisthesis of C5 on C6. Trace anterolisthesis of C7 on T1. The alignment is otherwise maintained. Vertebral bodies are normal in height without evidence of compression fractures. Marrow signal intensity is normal. The craniocervical junction appears normal. Patchy foci of hyperintensity are noted throughout the cervical and visualized upper thoracic cord on the T2, IR and axial T2-weighted images, compatible with the history of multiple sclerosis. No abnormal enhancement is identified however, evaluation is significantly limited due to the presence of motion artifacts on the postcontrast axial images. There is mild disc height loss at multiple levels. No significant/high-grade central canal stenosis is seen. The facets appear mild normal. There are varying degrees of mild uncovertebral joint osteoarthritis with the same degree of neural foraminal stenosis at these levels. There is perhaps moderate left neural foraminal stenosis at the level of C5-C6. No soft tissue abnormality is identified. Normal flow voids are identified in the vertebral arteries. Procedure Note Damon Townsend MD - 07/11/2023 PROCEDURE: MRI BRAIN WWO CONTRAST, MRI CERVICAL SPINE WWO CONT,DATE/TIME OF EXAM: 07/11/2023 3:36 PM, LOCATION [facility] INDICATION: G35: MS (multiple sclerosis) ([facility]) ADDITIONAL CLINICAL INFORMATION: Ordering Provider Reason For Exam: MS Technologist Note: None. Additional: None. CONTRAST: GADOBUTROL 1 MMOL/ML IV SSM SO:6 mL EXAMINATION: 1.Magnetic resonance imaging (MRI) of the brain without and withcontrast 2.MRI of the cervical spine without and with contrast TECHNIQUE: 1.MRI of the brain was performed prior to and following the uneventful administration of 6 mL GADAVIST intravenous contrast according to a demyelination protocol. 2.MRI of the cervical spine was performed prior to and following the uneventful administration of 6 mL GADAVIST intravenous contrastaccording to a demyelination protocol. COMPARISON: MRI of the brain from 05/13/2022. MRI of the brain andcervical spine from 11/08/2020. FINDINGS: MRI Brain: Contrast enhanced images are significantly degraded by motion artifact. Within this constraint findings are as follows: No evidence of acute or chronic hemorrhage is identified. No evidence of acute cerebral infarction is seen. There is diffuse cerebral volume loss with associated ex vacuo ventricular dilatation. No mass effect ormidline shift is seen. There are multiple foci of hyperintensity on T2 and FLAIR within the white matter, compatible with the clinical diagnosis ofmultiple sclerosis. T2/FLAIR hyperintensity is again seen along the undersurfaceof the corpus callosum, diffusely involving the callosal septal margin andthe periventricular white matter appear similar in extent to the prior.Several of these lesions demonstrate T1 hypointensity consistent with MS black holes. No enhancing lesions are identified to suggest activedemyelination. The sella appears normal. The posterior fossa, brainstem, and craniocervical junction appear grossly stable. The visualized portions of the orbits, paranasal sinuses, and mastoids appear normal. Normal flow voids are demonstrated in the carotidarteries and basilar artery. The calvarium and visualized cervical spine appear normal. Cervical spine: Trace anterolisthesis of C5 on C6. Trace anterolisthesis of C7 on T1.The alignment is otherwise maintained. Vertebral bodies are normal in height without evidence of compression fractures. Marrow signal intensity is normal. The craniocervical junction appears normal. Patchy foci of hyperintensity are noted throughout the cervical and visualized upper thoracic cord on the T2, IR and axial T2-weighted images, compatiblewith the history of multiple sclerosis. No abnormal enhancement is identified however, evaluation is significantly limited due to the presence ofmotion artifacts on the postcontrast axial images. There is mild disc height loss at multiple levels. No significant/high-grade central canal stenosis is seen. The facets appear mild normal. There are varying degrees of mild uncovertebral joint osteoarthritis with the same degree of neural foraminal stenosis atthese levels. There is perhaps moderate left neural foraminal stenosis at the level of C5-C6. No soft tissue abnormality is identified. Normal flowvoids are identified in the vertebral arteries. IMPRESSION: MRI brain: Within the constraint of motion artifact as mentioned above, 1.Multiple intracranial white matter lesions compatible with multiple sclerosis. No new T2 lesions and no new enhancing lesions to suggestactive demyelination. Moderate parenchymal volume loss is advanced forpatient's stated age and similar to the prior study. MRI cervical spine: 1.Scattered intramedullary lesions compatible with the clinical historyof multiple sclerosis. No new T2 intramedullary lesions and no newenhancing intramedullary lesions. . 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 > Dictated by Seng Acevedo DO (Spinner Operator) Damon Ahuja MD have personally reviewed and interpretedthis examination/study. > Interpreting Provider: Damon Townsend MD on 07/11/2023 6:59 PM Karen Reyes MD MR ORDERABLES * CREATININE - POCT INTERFACED (07/11/2023 2:32 PM CDT) Only the most recent of2 resultswithin the time period is included. Creatinine POCT 0.76 0.30 - 1.30 mg/dL 07/11/2023 2:50 PM CDT [facility] eGFR >90 >=90 mL/min/1.7 3 m2 07/11/2023 2:50 PM CDT [facility] Blood BLOOD SPECIMEN / Unknown 07/11/2023 2:32 PM CDT 07/11/2023 2:50 PM CDT Karen Reyes MD LAB - POINT OF CARE ORDERABLES Performing Organization Address [facility] Co de Phone Number [facility] [address] [place] [phone], [facility] [phone] * NM CHEMODENERV MUSC MIGRAINE (06/13/2023 1:50 PM CDT) Narrative Teresa Urban PA-C - 06/13/2023 1:50 PM CDT Teresa Urban PA-C ? 06/13/2023 ??2:57 PM Botox Procedure Note ?? Patient's identity confirmed by having patient say first and last name. ?? Diagnosis: Chronic migraine ?? Procedure code: 84605 ?? History: ?? Baseline number of headaches per month: 30 Current headaches per month: 3 ?? Current migraine prophylactic medications:None Current migraine abortive treatments:Tylenol ? Date of last injection: 02/2923 ?? Duration of benefit: 2-3 months ?? Side effects after the last injection None ?? Antiplatelet/Anticoagulation: None ?? The indications for botulinum toxin administration, the transient nature of the expected benefit and the potential side effects including lack of improvement, pain, infection, bleeding, allergic reaction, excessive local or distant paralysis, including the possibility of shortness of breath, swallowing difficulty, droopy eyelid and double vision were discussed. The patient had an opportunity to ask questions and consented to the procedure. ? BOTOX ADMINISTRATION ?? MODIFIED PREEMPT PROTOCOL ?? Diluted 200 units of Botox with 4 ml of non-preserved normal saline Drawn into 1 ml syringes fitted with 30 gauge 0.5 inch needles. Each syringe had 1 ml = 50 units, and 0.1 ml = 5 units ?? Time out was performed before starting administration. ?? Administration: ?? Corrugators 10 Units (2 sites) ?? Procerus 5 Units ?? L and R Frontalis 20 units (4 sites) ?? R Temporalis 20 units (4 sites) ?? L Temporalis 20 units (4 sites) ?? R Occipitalis 15 units (3 sites) ?? L Occipitalis 15 units (3 sites) ?? R Cervical paraspinals 10 units (over 2 sites) ?? L Cervical paraspinals 10 units (over 2 sites) ?? L. Trapezius 15 units (over 3 sites) ?? R. Trapezius 15 units (over 3 sites) ?? Total 155 units ?? 45 units wasted ?? There were no complications. The patient tolerated the procedure well. Patient is call if experiences any side effects or has any questions. ?? The number for the Neurology Clinic was provided to the patient. Patient to return in 3 months as needed for further treatment. ?? Ordered 200 units for next visit. ?? Teresa Urban PA-C PROCEDURE/MINOR S URGICAL ORDERABLES * LACOSAMIDE (05/11/2023 3:16 PM GUEST RELATIONS EXECUTIVE) Only the most recent of4 resultswithin the time period is included. Lacosamide LC/MS/MS 7.3 mcg/mL [facility] Comment: Expected concentrations of Lacosamide in patients receiving recommended daily dosages: Up to 15.0 mcg/mL. Toxic range not established This test was developed and its analytical performance characteristics have been determined by [facility] [employer] [facility]. It has not been cleared or approved by the FDA. This assay has been validated pursuant to the CLIA regulations and is used for clinical purposes. Test Performed at: [facility] [address] ??[id number] MELVI FLYNN MD 05/11/2023 3:16 PM GUEST RELATIONS EXECUTIVE 05/11/2023 3:17 PM GUEST RELATIONS EXECUTIVE Melissa Stalingregoria DINGN-BUS [facility] LAB - CHEMISTR Y ORDERABLES Performing Organization Address [facility] de Phone Number [address] [address] * ZONISAMIDE LEVEL (05/11/2023 3:16 PM GUEST RELATIONS EXECUTIVE) Only the most recent of7 resultswithin the time period is included. Zonisamide 19.5 10.0 - 40.0 mcg/mL [facility] Comment: This test was developed and its analytical performance characteristics have been determined by [facility] [employer] [facility]. It has not been cleared or approved by the FDA. This assay has been validated pursuant to the CLIA regulations and is used for clinical purposes. Test Performed at: [facility] [address] ??[phone] MELVI FLYNN MD 05/11/2023 3:16 PM GUEST RELATIONS EXECUTIVE 05/11/2023 3:17 PM GUEST RELATIONS EXECUTIVE Melissa Crook APRN-BUS GIRL LAB - CHEMISTR Y ORDERABLES Performing Organization Address [facility] de Phone Number [address] [address] * NM CHEMODENERV MUSC MIGRAINE (03/16/2023 1:46 PM GUEST RELATIONS EXECUTIVE) Narrative Mckayla Haywood MD - 03/16/2023 1:46 PM GUEST RELATIONS EXECUTIVE Mckayla Haywood MD ? 03/16/2023 ??2:02 PM Botox Procedure Note ?? Patient's identity confirmed by having patient say first and last name. ?? Diagnosis: Chronic migraine ?? Procedure code: 51912 ?? History: ?? Baseline number of headaches per month:30 Current headaches per month:3 ?? Current migraine prophylactic medications: none Current migraine abortive treatments:Tylenol. ? Date of last injection: ??09/08/2022 (off 3 month schedule) ?? Duration of benefit: 2-3 months ?? Side effects after the last injection None ?? Antiplatelet/Anticoagulation: None ?? The indications for botulinum toxin administration, the transient nature of the expected benefit and the potential side effects including lack of improvement, pain, infection, bleeding, allergic reaction, excessive local or distant paralysis, including the possibility of shortness of breath, swallowing difficulty, droopy eyelid and double vision were discussed. The patient had an opportunity to ask questions and consented to the procedure. ? BOTOX ADMINISTRATION ?? MODIFIED PREEMPT PROTOCOL ?? Diluted 200 units of Botox with 4 ml of non-preserved normal saline Drawn into 1 ml syringes fitted with 30 gauge 0.5 inch needles. Each syringe had 1 ml = 50 units, and 0.1 ml = 5 units ?? Time out was performed before starting administration. ?? Administration: ?? Corrugators 10 Units (2 sites) ?? Procerus 5 Units ?? L and R Frontalis 20 units (4 sites) ?? R Temporalis 20 units (4 sites) ?? L Temporalis 20 units (4 sites) ?? R Occipitalis 15 units (3 sites) ?? L Occipitalis 15 units (3 sites) ?? R Cervical paraspinals 10 units (over 2 sites) ?? L Cervical paraspinals 10 units (over 2 sites) ?? L. Trapezius 15 units (over 3 sites) ?? R. Trapezius 15 units (over 3 sites) ?? Total 155 units ?? 45 units wasted ?? There were no complications. The patient tolerated the procedure well. Patient is call if experiences any side effects or has any questions. ?? The number for the Neurology Clinic was provided to the patient. Patient to return in 3 months as needed for further treatment. ?? Ordered 200 units for next visit. Mckayla Haywood MD PROCEDURE/MINOR SURG ICAL ORDERABLES * LEVETIRACETAM LEVEL (11/21/2022 2:38 PM CDT) Only the most recent of3 resultswithin the time period is included. Levetiracetam 20 10 - 40 ug/mL 11/22/2022 9:08 PM CDT [facility] Comment: INTERPRETIVE INFORMATION: Keppra (Levetiracetam) Therapeutic Range: ??10-40 ug/mL ?Toxic: ??Not well Established Pharmacokinetics of levetiracetam are affected by renal function. Adverse effects may include somnolence, weakness, headache and vomiting. This levetiracetam (Keppra) immunoassay uses the [employer] reagents, which has known cross-reactivity with the drug brivaracetam (Briviact) and may report inaccurate results. Patients transitioning from levetiracetam to brivaracetam or those who are using both medications should not monitor drug concentrations with the [employer] assay. These patients should be monitored using a validated chromatographic methodology that distinguishes between drugs to determine drug concentrations. Performed By: [place] [address] Director Of Medical Education: Alejandro Small MD, PhD CLIA Number: [id number] Blood BLOOD SPECIMEN / Unknown Venipuncture / Unknown 11/21/2022 2:38 PM CDT 11/21/2022 2:40 PM CDT Chau Teague MD LAB - THERAPEUTIC MONITORING ORDERABLES Performing Organization Address [facility]/ZIP Co de Phone Number [facility]) [address] [place] [phone], [facility] * TSH REFLEX FREE T4 (11/21/2022 12:42 PM CDT) TSH 1.089 0.350 - 4.940 uIU/mL 11/21/2022 1:33 PM CDT [facility] Blood BLOOD SPECIMEN / Unknown Venipuncture / Unknown 11/21/2022 12:42 PM CDT 11/21/2022 12:45 PM CDT Chau Teague MD LAB - CHEMISTRY [facility] DOBBS Performing Organization Address City/[facility]/ZIP Co de Phone Number [address] [address], [place] [phone] * NM CHEMODENERV MUSC MIGRAINE (09/08/2022 12:58 PM CDT) Narrative Mckayla Haywood MD - 09/08/2022 12:58 PM CDT Mckayla Haywood MD ? 12/11/2022 12:59 PM Botox Procedure Note ?? Patient's identity confirmed by having patient say first and last name. ?? Diagnosis: Chronic migraine ?? Procedure code: 30979 ?? History: ?? Baseline number of headaches per month:30 Current headaches per month: typically 3-4 per month, but varies ?? Current migraine prophylactic medications: Current migraine abortive treatments: ? Date of last injection: ??05/05/2022 (off 3 month schedule) ?? Duration of benefit: 2-3 months ?? Side effects after the last injection None ?? Antiplatelet/Anticoagulation: None ?? The indications for botulinum toxin administration, the transient nature of the expected benefit and the potential side effects including lack of improvement, pain, infection, bleeding, allergic reaction, excessive local or distant paralysis, including the possibility of shortness of breath, swallowing difficulty, droopy eyelid and double vision were discussed. The patient had an opportunity to ask questions and consented to the procedure. ? BOTOX ADMINISTRATION ?? MODIFIED PREEMPT PROTOCOL ?? Diluted 200 units of Botox with 4 ml of non-preserved normal saline Drawn into 1 ml syringes fitted with 30 gauge 0.5 inch needles. Each syringe had 1 ml = 50 units, and 0.1 ml = 5 units ?? Time out was performed before starting administration. ?? Administration: ?? Corrugators 10 Units (2 sites) ?? Procerus 5 Units ?? L and R Frontalis 20 units (4 sites) ?? R Temporalis 25 units (4 sites) ?? L Temporalis 25 units (4 sites) ?? R Occipitalis 15 units (3 sites) ?? L Occipitalis 15 units (3 sites) ?? R mauricio-auricular 12.5 units (2 sites) ?? L mauricio-auricular 12.5 units (2 sites) ?? R Cervical paraspinals 10 units (over 2 sites) ?? L Cervical paraspinals 10 units (over 2 sites) ?? L. Trapezius 20 units (over 3 sites) ?? R. Trapezius 20 units (over 3 sites) ?? Total 200 units ?? No units wasted ?? There were no complications. The patient tolerated the procedure well. Patient is call if experiences any side effects or has any questions. ?? The number for the Neurology Clinic was provided to the patient. Patient to return in 3 months as needed for further treatment. ?? Ordered 200 units for next visit. Mckayla Haywood MD PROCEDURE/MINOR SURG ICAL ORDERABLES * NM CHEMODENERV MUSC MIGRAINE (05/05/2022 12:43 PM GUEST RELATIONS EXECUTIVE) Narrative Mckayla Haywood MD - 05/05/2022 12:43 PM GUEST RELATIONS EXECUTIVE Mckayla Haywood MD ? 05/05/2022 ??1:13 PM Botox Procedure Note ?? Patient's identity confirmed by having patient say first and last name, and date of . ?? Diagnosis: Chronic migraine ?? Procedure code: 52105 ?? History: ?? Baseline number of headaches per month:30 Current headaches per month:3-4 ?? Number of headache hours per day (baseline): 12 Number of headache hour per day (current): couple of hours ?? Associated symptoms (baseline): ?? Moderate to severe pain, nausea, vomiting, photophobia, phonophobia. ?? Associated symptoms (current): ?? Moderate pain, nausea, photophobia, phonophobia. ?? The patient has had significant benefit from Botox with a greater than 50% reduction in headache frequency and severity. ?? Current migraine prophylactic medications:none Current migraine abortive treatments: none ? Date of last injection: ??01/18/2022 ?? Duration of benefit: 2-3 months ?? Side effects after the last injection None ? The indications for botulinum toxin administration, the transient nature of the expected benefit and the potential side effects including lack of improvement, pain, infection, bleeding, allergic reaction, excessive local or distant paralysis, including the possibility of shortness of breath, swallowing difficulty, droopy eyelid and double vision were discussed. The patient had an opportunity to ask questions and consented to the procedure. ?? Antiplatelet/Anticoagulation: None ? BOTOX ADMINISTRATION ?? MODIFIED PREEMPT PROTOCOL ?? Diluted 200 units of Botox with 4 ml of non preserved normal saline Drawn into 1 ml syringes ??fitted with 30 gauge 0.5 inch needles. Each syringe had 1 ml = 50 units, and 0.1 ml = 5 units ?? Time out was performed before starting administration. ?? Administration: ?? Corrugators 10 Units (2 sites) ?? Procerus 5 Units ?? L and R Frontalis 20 units (4 sites) ?? R Temporalis 25 units (4 sites) ?? L Temporalis 25 units (4 sites) ?? R Occipitalis 15 units (3 sites) ?? L Occipitalis 15 units (3 sites) ?? R mauricio-auricular 12.5 units (2 sites) ?? L mauricio-auricular 12.5 units (2 sites) ?? R Cerv. paraspinals 10 units (over 2 sites) ?? L Cerv. paraspinals 10 units (over 2 sites) ?? L. Trapezus 20 units (over 3 sites) ?? R. Trapezus 20 units (over 3 sites) ?? Total 200 units ?? No units wasted ?? There were no complications. The patient tolerated the procedure well. Patient is call if experiences any side effects or has any questions. ?? The number for the Neurology Clinic was provided to the patient. Patient to return in 3 month as needed for further treatment. ?? Ordered 200 units for next visit. Mckayla Haywood MD PROCEDURE/MINOR SURG ICAL ORDERABLES * NM CHEMODENERV MUSC MIGRAINE (01/18/2022 9:09 AM CDT) Narrative Mckayla Haywood MD - 01/18/2022 9:09 AM CDT Mckayla Haywood MD ? 01/18/2022 10:03 AM Botox Procedure Note ?? Patient's identity confirmed by having patient say first and last name, and date of . ?? Diagnosis: Chronic migraine ?? Procedure code: 96707 ?? History: ?? Baseline number of headaches per month:30 Current headaches per month:5 ?? Number of headache hours per day (baseline): 12 Number of headache hour per day (current): couple of hours ?? Associated symptoms (baseline): ?? Moderate to severe pain, nausea, vomiting, photophobia, phonophobia. ?? Associated symptoms (current): ?? Moderate pain, nausea, photophobia, phonophobia. ?? The patient has had significant benefit from Botox with a greater than 50% reduction in headache frequency and severity. ?? Current migraine prophylactic medications:none Current migraine abortive treatments: none ? Date of last injection: ??10/21/2021 ?? Duration of benefit: 2-3 months ?? Side effects after the last injection None ? The indications for botulinum toxin administration, the transient nature of the expected benefit and the potential side effects including lack of improvement, pain, infection, bleeding, allergic reaction, excessive local or distant paralysis, including the possibility of shortness of breath, swallowing difficulty, droopy eyelid and double vision were discussed. The patient had an opportunity to ask questions and consented to the procedure. ?? Antiplatelet/Anticoagulation: None ? BOTOX ADMINISTRATION ?? MODIFIED PREEMPT PROTOCOL ?? Diluted 200 units of Botox with 4 ml of non preserved normal saline Drawn into 1 ml syringes ??fitted with 30 gauge 0.5 inch needles. Each syringe had 1 ml = 50 units, and 0.1 ml = 5 units ?? Time out was performed before starting administration. ?? Administration: ?? Corrugators 10 Units (2 sites) ?? Procerus 5 Units ?? L and R Frontalis 20 units (4 sites) ?? R Temporalis 25 units (4 sites) ?? L Temporalis 25 units (4 sites) ?? R Occipitalis 15 units (3 sites) ?? L Occipitalis 15 units (3 sites) ?? R mauricio-auricular 12.5 units (2 sites) ?? L mauricio-auricular 12.5 units (2 sites) ?? R Cerv. paraspinals 10 units (over 2 sites) ?? L Cerv. paraspinals 10 units (over 2 sites) ?? L. Trapezus 20 units (over 3 sites) ?? R. Trapezus 20 units (over 3 sites) ?? Total 200 units ?? No units wasted ?? There were no complications. The patient tolerated the procedure well. Patient is call if experiences any side effects or has any questions. ?? The number for the Neurology Clinic was provided to the patient. Patient to return in 3 month as needed for further treatment. ?? Ordered 200 units for next visit. Mckayla Haywood MD PROCEDURE/MINOR SURG ICAL ORDERABLES * HEPATITIS C AB W/RFLX TO HCV RNA QN PCR (01/16/2022 2:00 PM CDT) Only the most recent of2 resultswithin the time period is included. Hepatitis C Antibody NON-REACTI VE NON-REACT PAM [facility] Signal to Cut-Off 0.02 <1.00 [facility] Comment: HCV antibody was non-reactive. There is no laboratory evidence of HCV infection. In most cases, no further action is required. However, if recent HCV exposure is suspected, a test for HCV RNA (test code 13821) is suggested. For additional information please refer to http://Slingbox.shoply/faq/VYI85l0 (This link is being provided for informational/ educational purposes only.) Test Performed at: [facility] [id number] [place], [place] ??[id number] MYKEL ALVARES DO,MPH Blood BLOOD SPECIMEN / Unknown 12/23/2021 10:02 AM CDT Daily Calero MD LAB - CHEMISTRY [facility] DOB[facility] ([place], [place]) Organization Address City/State/ZIP Co de Phone Number [facility] [address] [place] [address] * HIV-1 HIV-2 ANTIBODY + HIV P24 AG PANEL (01/16/2022 2:00 PM CDT) Only the most recent of2 resultswithin the time period is included. Pathologist [facility] HIV Screen 4th Generation w Reflex NON-REACT [...] ?? For additional information please refer to http://Slingbox.shoply/faq/BGS259 (This link is being provided for informational/ educational purposes only.) The performance of this assay has not been clinically validated in patients less than 2 years old. Test Performed at: [facility] [id number] [place], [place] ??[id number] MYKEL ALVARES DO,MPH Blood BLOOD SPECIMEN / Unknown 12/23/2021 10:02 AM CDT Daily Calero MD LAB - CHEMISTRY [facility] DOBBS [facility] [address] [place] [id number] * HEMOGLOBIN A1C (12/22/2021 10:59 AM CDT) Only the most recent of2 resultswithin the time period is included. Hemoglobin A1c 5.1 <5.7 % of total Hgb [facility] Comment: For the purpose of screening for the presence of diabetes: <5.7% ? Consistent with the absence of diabetes 5.7-6.4% ?Consistent with increased risk for diabetes ?(prediabetes) > or =6.5% ??Consistent with diabetes This assay result is consistent with a decreased risk of diabetes. Currently, no consensus exists regarding use of hemoglobin A1c for diagnosis of diabetes in children. According to [place] [employer] (ADA) guidelines, hemoglobin A1c <7.0% represents optimal control in non- diabetic patients. Different metrics may apply to specific patient populations. Standards of Medical Care in Diabetes(ADA). ?? NO COLLECTION DATE RECEIVED. WE HAVE USED THE DATE THE SPECIMEN WAS RECEIVED BY THIS LABORATORY THE COLLECTION DATE. IF THIS IS INCORRECT, PLEASE CONTACT CLIENT SERVICES. PHONE NUMBER: [phone] Test Performed at: [facility] [id number] [place], [place] ??[address] MYKEL ALVARES DO,MPH Blood BLOOD SPECIMEN / Unknown 12/22/2021 10:59 AM CDT 12/23/2021 10:02 AM CDT Daily Calero MD LAB - CHEMISTRY [facility] [facility] [address] [place] [address] * URINALYSIS AUTO - POINT OF CARE (AMB) [facility] (11/04/2021 9:01 AM CDT) Glucose UA neg Bilirubin UA POCT neg Ketones UA POCT neg Specific [place] UA 1.030 Blood Urine POCT 200 Kyrie/uL pH UA 6.0 Protein UA 30 mg/dL Urobilinogen UA 0.2 mg/dL Nitrite UA neg WBC UA 500 Jg/uL Urine URINE / Unknown 11/04/2021 9 :01 AM CDT Reena Cotter MD LAB - POINT OF CAR E ORDERABLES * NM MSR PVR U&/BLADD CAPCTY US NON (11/04/2021 8:58 AM CDT) Narrative Gabrielle Castellanos MA - 11/04/2021 8:58 AM CDT Gabrielle Castellanos MA ? 11/04/2021 ??9:25 AM BMB=[id number] Reena Cotter MD PROCEDURE/MINOR WHYTE RGICAL ORDERABLES * NM CHEMODENERV MUSC MIGRAINE (10/21/2021 10:52 AM CDT) Narrative Mckayla Haywood MD - 10/21/2021 10:52 AM CDT Mckayla Haywood MD ? 10/21/2021 11:36 AM ?? Botox Procedure Note ?? Patient's identity confirmed by having patient say first and last name, and date of . ?? Diagnosis: Chronic migraine ?? Procedure code: [id number] ?? History: ?? Baseline number of headaches per month:30 Current headaches per month:(5) ?? Number of headache hours per day (baseline): 12 Number of headache hour per day (current): 1 ?? Associated symptoms (baseline): ?? Moderate to severe pain, nausea, vomiting, photophobia, phonophobia. ?? Associated symptoms (current): ?? Moderate pain, nausea, photophobia, phonophobia. ?? The patient has had significant benefit from Botox with a greater than 50% reduction in headache frequency and severity. ?? Current migraine prophylactic medications:none Current migraine abortive treatments:none ? Date of last injection: ??07/13/2021 ?? Duration of benefit: 2-3 months ?? Side effects after the last injection None ? The indications for botulinum toxin administration, the transient nature of the expected benefit and the potential side effects including lack of improvement, pain, infection, bleeding, allergic reaction, excessive local or distant paralysis, including the possibility of shortness of breath, swallowing difficulty, droopy eyelid and double vision were discussed. The patient had an opportunity to ask questions and consented to the procedure. ?? Antiplatelet/Anticoagulation: None ? BOTOX ADMINISTRATION ?? MODIFIED PREEMPT PROTOCOL ?? Diluted 200 units of Botox with 4 ml of non preserved normal saline Drawn into 1 ml syringes ??fitted with 30 gauge 0.5 inch needles. Each syringe had 1 ml = 50 units, and 0.1 ml = 5 units ?? Time out was performed before starting administration. ?? Administration: ?? Corrugators 10 Units (2 sites) ?? Procerus 5 Units ?? L and R Frontalis 20 units (4 sites) ?? R Temporalis 25 units (4 sites) ?? L Temporalis 25 units (4 sites) ?? R Occipitalis 15 units (3 sites) ?? L Occipitalis 15 units (3 sites) ?? R mauricio-auricular 12.5 units (2 sites) ?? L mauricio-auricular 12.5 units (2 sites) ?? R Cerv. paraspinals 10 units (over 2 sites) ?? L Cerv. paraspinals 10 units (over 2 sites) ?? L. Trapezus 20 units (over 3 sites) ?? R. Trapezus 20 units (over 3 sites) ?? Total 200 units ?? No units wasted ?? There were no complications. The patient tolerated the procedure well. Patient is call if experiences any side effects or has any questions. ?? The number for the Neurology Clinic was provided to the patient. Patient to return in 3 month as needed for further treatment. ?? Ordered 200 units for next visit. Mckayla Haywood MD PROCEDURE/MINOR SURG ICAL ORDERABLES * NM MSR PVR U&/BLADD CAPCTY US NON (08/26/2021 9:25 AM CDT) Narrative Dimple Ariza MA - 08/26/2021 9:25 AM CDT Dimple Ariza MA ? 08/26/2021 ??9:26 AM Bladder scan completed. 183Bladder scan completed. Reena Cotter MD PROCEDURE/MINOR WHYTE RGICAL ORDERABLES * NM CHEMODENERV MUSC MIGRAINE (07/13/2021 10:29 AM CDT) Narrative Mckayla Haywood MD - 07/13/2021 10:29 AM CDT Mckayla Haywood MD ? 07/13/2021 12:30 PM ??Botox Procedure Note Patient's identity confirmed by having patient say first and last name, and date of . Diagnosis: Chronic migraine Procedure code: 56102 History: Baseline number of headaches per month:30 Current headaches per month:5 while on botox, However, off 3 month schedule. ?? Number of headache hours per day (baseline): 12 Number of headache hour per day (current): 1 while on botox. Associated symptoms (baseline): ?? Moderate to severe pain, nausea, vomiting, photophobia, phonophobia. Associated symptoms (current): ?? Moderate pain, nausea, photophobia, phonophobia. The patient has had significant benefit from Botox with a 50% reduction in headache frequency and severity. Current migraine prophylactic medications: Current migraine abortive treatments: Date of last injection: ??02/14/2021 (off 3 month schedule) Duration of benefit: 2-3 months Side effects after the last injection None The indications for botulinum toxin administration, the transient nature of the expected benefit and the potential side effects including lack of improvement, pain, infection, bleeding, allergic reaction, excessive local or distant paralysis, including the possibility of shortness of breath, swallowing difficulty, droopy eyelid and double vision were discussed. The patient had an opportunity to ask questions and consented to the procedure. Antiplatelet/Anticoagulation: None BOTOX ADMINISTRATION MODIFIED PREEMPT PROTOCOL Diluted 200 units of Botox with 4 ml of non preserved normal saline Drawn into 1 ml syringes ??fitted with 30 gauge 0.5 inch needles. Each syringe had 1 ml = 50 units, and 0.1 ml = 5 units Time out was performed before starting administration. Administration: Corrugators 10 Units (2 sites) Procerus 5 Units L and R Frontalis 20 units (4 sites) R Temporalis 25 units (4 sites) L Temporalis 25 units (4 sites) R Occipitalis 15 units (3 sites) L Occipitalis 15 units (3 sites) R mauricio-auricular 12.5 units (2 sites) L mauricio-auricular 12.5 units (2 sites) R Cerv. paraspinals 10 units (over 2 sites) L Cerv. paraspinals 10 units (over 2 sites) L. Trapezus 20 units (over 3 sites) R. Trapezus 20 units (over 3 sites) Total 200 units No units wasted There were no complications. The patient tolerated the procedure well. Patient is call if experiences any side effects or has any questions. The number for the Neurology Clinic was provided to the patient. Patient to return in 3 month as needed for further treatment. Ordered 200 units for next visit. Mckayla Haywood MD PROCEDURE/MINOR SURG ICAL ORDERABLES * IGM BLOOD (06/29/2021 2:10 PM CDT) Only the most recent of3 resultswithin the time period is included. IgM 70 37 - 286 mg/dL 06/29/2021 2:50 PM CDT [facility] Blood BLOOD SPECIMEN / Unknown Lab Venipuncture / Unknown 06/29/2021 2:10 PM CDT 06/29/2021 2:28 PM CDT Markus Cabral MD LAB - CHEMISTRY ORDERABLES Performing Organization Address City/State/[facility] Co de Phone Number [facility] [address] [place] [phone], [facility] [phone] * (ABNORMAL) IGG BLOOD (06/29/2021 2:10 PM CDT) Only the most recent of3 resultswithin the time period is included. IgG 753(L) 767 - 1,590 mg/dL 06/29/2021 2:50 PM CDT [facility] Blood BLOOD SPECIMEN / Unknown Lab Venipuncture / Unknown 06/29/2021 2:10 PM CDT 06/29/2021 2:28 PM CDT Markus Cabral MD LAB - CHEMISTRY ORDERABLES [facility] [address] [place] [address], [place] [phone] * IGA BLOOD (06/29/2021 2:10 PM CDT) Only the most recent of3 resultswithin the time period is included. Pathologist [facility] IgA 81 61 - 356 mg/dL 06/29/2021 2:50 PM CDT [facility] Blood BLOOD SPECIMEN / Unknown Lab Venipuncture / Unknown 06/29/2021 2:10 PM CDT 06/29/2021 2:28 PM CDT Markus Cabral MD LAB - CHEMISTRY ORDERABLES Performing Organization Address City/[facility]/ZIP Co de Phone Number [facility] [address] [place] [address], [place] [phone] * SARS-COV-2 (COVID-19)+INFLU A+B PCR RAPID (05/13/2021 3:09 PM [employer]ATIONS EXECUTIVE) Only the most recent of2 resultswithin the time period is included. Pathologist [facility] COVID-19 PCR Not detected Not detected 05/13/19 3:41 PM [employer] RELATIONS EXECUTIVE [facility] Influenza A Rapid ALEJANDRINA Not Detected Not Detected 05/13/2021 3:41 PM [employer]UEST RELATIONS EXECUTIVE [facility] Influenza B ALEJANDRINA Rapid Not Detected Not Detected 05/13/2021 3:41 PM [employer]UE[employer] RELATIONS EXECUTIVE [facility] Microbiology SPECIMEN FROM NASOPHARYNGEAL STRUCTURE / Unknown Collection / Unknown 05/13/2021 3:09 PM [employer] RELATIONS EXECUTIVE 05/13/2021 3:13 PM [employer]UEST RELATIONS EXECUTIVE Narrative [facility] - 05/13/2021 3:41 PM [employer]ATIONS EXECUTIVE Influenza assay performed by Nucleic Acid Amplification. Results do not exclude the possibility of a mixed viral infection. NOTE: ??Detecting and identifying specific viral nucleic acids from individuals exhibiting signs and symptoms of respiratory infection aids in the diagnosis of respiratory infection, if used in conjunction with other clinical and laboratory findings. The results of this test should not be used as the sole basis for diagnosis, treatment, or patient management decisions. This nucleic acid amplification assay performance was validated by [facility]. This test has been authorized by the Food and Drug administration (FDA)under an Emergency??Use Authorization (EUA). This test has been validated in accordance with the FDA's guidance document Policy for Diagnostic Testing in Laboratories Certified to perform High Complexity Testing under CLIA prior to Emergency Use Authorization for Coronavirus Disease-2019 during the Public Health Emergency issued on May 17, 2019. FDA independent review of this validation is pending. This test is only authorized for the duration of time the declaration that circumstances exist justifying the authorization of emergency use of in vitro diagnostic tests for detection of SARS-CoV-2 virus and/or diagnosis of COVID-19 infection under section 564(b)(1) of the Act, 21 U.S.C 360bbb-3 (b)(1), unless the authorization is terminated or revoked sooner. Fact Sheets for this EUA assay are available upon request. Chau Teague MD LAB - MICROBIOLOGY O RDERABLES [address] [address], [facility] [phone] * NM CHEMODENERV MUSC MIGRAINE (02/14/2021 3:06 PM GUEST RELATIONS EXECUTIVE) Narrative Mckayla Haywood MD - 02/14/2021 3:06 PM [employer] RELATIONS EXECUTIVE Mckayla Haywood MD ? 02/14/2021 ??3:51 PM Patient's identity confirmed by having patient say first and last name, and date of . Diagnosis: Chronic migraine Procedure code: 87755 History: Baseline number of headaches per month:30 Current headaches per month:5 Number of headache hours per day (baseline): 12 Number of headache hour per day (current): 1 Associated symptoms (baseline): ?? Moderate to severe pain, nausea, vomiting, photophobia, phonophobia. Associated symptoms (current): ?? Moderate pain, nausea, photophobia, phonophobia. The patient has had significant benefit from Botox with a 50% reduction in headache frequency and severity. Current migraine prophylactic medications: Current migraine abortive treatments: Date of last injection: 11/01/2020 ?? Duration of benefit: 2-3 months Side effects after the last injection None The indications for botulinum toxin administration, the transient nature of the expected benefit and the potential side effects including lack of improvement, pain, infection, bleeding, allergic reaction, excessive local or distant paralysis, including the possibility of shortness of breath, swallowing difficulty, droopy eyelid and double vision were discussed. The patient had an opportunity to ask questions and consented to the procedure. Antiplatelet/Anticoagulation: None : Not , IUD in place BOTOX ADMINISTRATION MODIFIED PREEMPT PROTOCOL Diluted 200 units of Botox with 4 ml of non preserved normal saline Drawn into 1 ml syringes ??fitted with 30 gauge 0.5 inch needles. Each syringe had 1 ml = 50 units, and 0.1 ml = 5 units Time out was performed before starting administration. Administration: Corrugators 10 Units (2 sites) Procerus 5 Units L and R Frontalis 20 units (4 sites) R Temporalis 25 units (4 sites) L Temporalis 25 units (4 sites) R Occipitalis 15 units (3 sites) L Occipitalis 15 units (3 sites) R Auricular 12.5 units (2 sites) L Auricular 12.5 units (2 sites) R Cerv. paraspinals 10 units (over 2 sites) L Cerv. paraspinals 10 units (over 2 sites) L. Trapezus 20 units (over 3 sites) R. Trapezus 20 units (over 3 sites) Total 200 units No units wasted There were no complications. The patient tolerated the procedure well. Patient is call if experiences any side effects or has any questions. The number for the Neurology Clinic was provided to the patient. Patient to return in 3 month as needed for further treatment. Ordered 200 units for next visit. Mckayla Haywood MD PROCEDURE/MINOR SURG ICAL ORDERABLES * FLOW CYTOMETRY RITUXAN BLOOD (01/07/2021 9:31 AM CDT) Only the most recent of2 resultswithin the time period is included. Reason for test MS (multiple sclerosis) 340 High risk medications (not anticoagulants) long-term use V58.69 01/07/2021 2:08 PM CDT [facility] Client Specimen ID # [id number] 01/07/2021 2:08 PM [facility] Number of Markers 7 01/07/2021 2:08 PM [facility] Flow Cytometry Results Differential Result Comment WBC Count /uL 16,900 % Lymphocytes 9 Lymphocyte Count u/L 1,521 Cell Region A: Lymphocytes Surface Marker Results % Absolute Count (cells/uL) CD3 84 1,278 CD3+CD4+ 61 928 CD3+CD8+ 23 350 CD4:CD8 Ratio 2.65 CD19 0 0 CD20 0 0 CD45 100 1,521 CD56 14 213 01/07/2021 2:08 PM [facility] Flow Cytometry Interpretation Testing is technical only and does not require an interpretation of results. 01/07/2021 2:08 PM [facility] Reference Range Adult Normal Reference Range Adult (> 18 years) CD3 54-84 % CD4 33-63 % CD8 12-39 % CD19 5-19 % CD56 6-26 % CD4+CD45RA+ 30-50 % CD4+CD45RO+ 17-42 % CD19+CD27+ 7-48 % CD19+CD27+IgD+ 7-29 % CD19+CD27+IgD- 3-23 % CD19+ZT54-KpQ+ 29-93 % % 01/07/2021 2:08 PM [facility] Disclaimer Test performed at [facility], [address] [place] [address], [id number]. This test was developed and its performance characteristics determined by the Flow Cytometry Laboratory. It has not been cleared by the [place] Food and Drug Administration (FDA). The FDA has determined that such clearance or approval is not necessary. This test is used for clinical purposes. It should not be regarded as investigational or for research. This laboratory is regulated under the Clinical Laboratory Improvement Amendments of 1998 (CLIA) as a qualified to perform high complexity clinical testing. By law [place], CD4 lymphocyte counts on patients with HIV infection must be reported by the physician to the [facility] authority. 01/07/2021 2:08 PM [facility] Embedded Images 2:08 PM [facility] Blood BLOOD SPECIMEN / Unknown Lab Venipuncture / Unknown 01/07/2021 9:31 AM CDT 01/07/2021 10:42 AM CDT Markus Cabral MD LAB - PATHOLOGY/CYTOLOGY ORDERABLES [facility] [address] [phone] * (ABNORMAL) DIFFERENTIAL MANUAL (01/07/2021 9:31 AM CDT) Only the most recent of17 resultswithin the time period is included. WBC (corrected for NRBC) 16.9 10? 3 /uL 01/07/2021 11:40 AM [facility] Total Cell Count 100 01/07/2021 11:40 AM [facility] Neutrophils Absolute Manual 12.17(H) 1.60 - 7.00 10? 3 /uL 01/07/2021 11:40 AM [facility] Comment:(BANDS+SEGS) x WBC = NEUT # (ANC) Lymphocyte Absolute Manual 2.37 1.10 - 3.90 10? 3 /uL 01/07/2021 11:40 AM [facility] Monocytes Absolute Manual 1.69(H) 0.26 - 1.07 10? 3 /uL 01/07/2021 11:40 AM [facility] Eosinophils Absolute Manual 0.68(H) 0.00 - 0.47 10? 3 /uL 01/07/2021 11:40 AM [facility] Neutrophil % Manual 72(H) 35 - 70 % 01/07/2021 11:40 AM [facility] Lymphocyte % Manual 14(L) 20 - 43 % 01/07/2021 11:40 AM [facility] Monocytes % Manual 10 5 - 13 % 01/07/2021 11:40 AM [facility] Eosinophils % Manual 4 0 - 6 % 01/07/2021 11:40 AM [facility] Platelet Estimate Adequate Adequate 01/07/2021 11:40 AM [facility] RBC Morphology Normal 01/07/2021 11:40 AM CDT [facility] Blood BLOOD SPECIMEN / Unknown Lab Venipuncture / Unknown 01/07/2021 9:31 AM CDT 01/07/2021 10:54 AM CDT Markus Cabral MD LAB - HEMATOLOGY ORDERABLES [facility] [address] [place] [address], [facility] [phone] * (ABNORMAL) URINALYSIS W/MICROSCOPIC REFLEX TO CULTURE (11/01/2020 4:32 PM CDT) Color UA Cinda(A) Straw, Yellow 11/01/2020 5:19 PM T [facility] Clarity UA Slt Cloudy(A) Clear 11/01/2020 5:19 PM T [facility] Specific [place] UA 1.024 1.005 - 1.030 11/01/2020 5:19 PM [facility] pH UA 5.0 5.0 - 8.0 pH 11/01/2020 5:19 PM [facility] Protein UA Negative Negative 11/01/2020 5:19 PM [facility] Glucose UA Negative Negative 11/01/2020 5:19 PM [facility] Ketone UA Negative Negative 11/01/2020 5:19 PM [facility] Bilirubin UA Negative Negative 11/01/2020 5:19 PM [facility] Blood UA Negative Negative 11/01/2020 5:19 PM [facility] Nitrite UA Negative Negative 11/01/2020 5:19 PM [facility] Leukocyte Esterase Negative Negative 11/01/2020 5:19 PM [facility] Urobilinogen UA Negative Negative mg/dL 11/01/2020 5:19 PM [facility] RBC UA 6-10(A) None Seen, 0-2, 3-5 /HPF 11/01/2020 5:19 PM [facility] WBC UA 0-5 None Seen, 0-5 /HPF 11/01/2020 5:19 PM CDT [facility] Squamous Epithelial Cells UA 3-5 None Seen, 0-2, 3-5 /HPF 11/01/2020 5:19 PM CDT [facility] Mucus UA 4+ /LPF 11/01/2020 5:19 PM CDT [facility] Urine URINE SPECIMEN OBTAINED BY CLEAN CATCH PROCEDURE / Unknown Collection / Unknown 11/01/2020 4:32 PM CDT 11/01/2020 4:56 PM CDT Narrative [facility] - 11/01/2020 5:19 PM CDT Culture Not Indicated Mckayla Haywood MD LAB - URINALYSIS ORD ERABLES [facility] [address] [place] [address], [facility] [phone] * NM CHEMODENERV MUSC MIGRAINE (11/01/2020 3:02 PM CDT) Narrative Mckayla Haywood MD - 11/01/2020 3:02 PM CDT Mckayla Haywood MD ? 11/01/2020 ??3:48 PM Patient's identity confirmed by having patient say first and last name, and date of . Diagnosis: Chronic migraine G 43.709 Chronic migraine without aura, non-intractable, without status migrainosus ?? G 43.719 Chronic migraine without aura,intractable, ??Without status migrainosus x G 43.701 Chronic migraine without aura, ??Not intractable,, with status migrainosus ?? G 43.711 Chronic migraine without aura, intractable, with status migrainosus ?? Procedure code: 78370 History: Baseline number of headaches per month: 30 Current headaches per month:5 Number of headache hours per day (baseline): 12 Number of headache hour per day (current): 6 Associated symptoms (baseline): ?? Moderate to severe pain, nausea, vomiting, photophobia, phonophobia. Associated symptoms (current): ?? Moderate pain, nausea, photophobia, phonophobia. The patient has had significant benefit from Botox with a 50% reduction in headache frequency and severity. Current migraine prophylactic medications: Current migraine abortive treatments: Date of last injection: ??07/21/2020 Duration of benefit: 2-3 months Side effects after the last injection None The indications for botulinum toxin administration, the transient nature of the expected benefit and the potential side effects including lack of improvement, pain, infection, bleeding, allergic reaction, excessive local or distant paralysis, including the possibility of shortness of breath, swallowing difficulty, droopy eyelid and double vision were discussed. The patient had an opportunity to ask questions and consented to the procedure. (women of childbearing age): Not Antiplatelet/Anticoagulation: None BOTOX ADMINISTRATION MODIFIED PREEMPT PROTOCOL Diluted 200 units of Botox with 4 ml of non preserved normal saline Drawn into 1 ml syringes ??fitted with 30 gauge 0.5 inch needles. Each syringe had 1 ml = 50 units, and 0.1 ml = 5 units Time out was performed before starting administration. Administration: Corrugators 10 Units (2 sites) Procerus 5 Units L and R Frontalis 20 units (4 sites) R Temporalis 25 units (4 sites) L Temporalis 25 units (4 sites) R Occipitalis 15 units (3 sites) L Occipitalis 15 units (3 sites) R Auricular 12.5 units (2 sites) L Auricular 12.5 units (2 sites) R Cerv. paraspinals 10 units (over 2 sites) L Cerv. paraspinals 10 units (over 2 sites) L. Trapezus 20 units (over 3 sites) R. Trapezus 20 units (over 3 sites) Total 200 units No units wasted There were no complications. The patient tolerated the procedure well. Patient is call if experiences any side effects or has any questions. The number for the Neurology Clinic was provided to the patient. Patient to return in 3 month as needed for further treatment. Ordered 200 units for next visit. Mckayla Haywood MD PROCEDURE/MINOR SURG ICAL ORDERABLES * US RETROPERITONEAL COMPLETE (09/03/2020 10:45 AM CDT) Anatomical Region Laterality Modality Abdomen Ultrasound 09/03/2020 10:5 4 AM CDT Impressions 09/03/2020 11:52 AM CDT IMPRESSION: Normal renal size. No evidence of nephrolithiasis, hydronephrosis, or solid renal mass. Dictated by Duncan Flores MD (radiology ct technologist). Dr. TREVOR Ahuja M.D. have personally reviewed and interpreted this examination/study. This report was electronically signed by TREVOR CARMICHAEL M.D. ??on 09/03/2020 11:52 AM . Narrative 09/03/2020 11:52 AM CDT EXAMINATION: Complete retroperitoneal sonogram HISTORY: N31.9: Neurogenic bladder COMPARISON: No prior study is available for comparison at the time of this dictation. FINDINGS: Right kidney: 11.6 x 4.4 x 5.1 cm Left kidney: 11.1 x 5.0 x 4.4 cm Renal parenchymal echogenicity is normal. There is no evidence of a solid renal mass, renal calculi, or hydronephrosis. Blood flow is seen within the renal arteries and veins. The urinary bladder is decompressed. Procedure Note Trevor Carmichael MD - 09/03/2020 EXAMINATION: Complete retroperitoneal sonogram HISTORY: N31.9: Neurogenic bladder COMPARISON: No prior study is available for comparison at the time ofthis dictation. FINDINGS: Right kidney: 11.6 x 4.4 x 5.1 cm Left kidney: 11.1 x 5.0 x 4.4 cm Renal parenchymal echogenicity is normal. There is no evidence of asolid renal mass, renal calculi, or hydronephrosis. Blood flow is seen within the renal arteries and veins. The urinary bladder is decompressed. IMPRESSION: Normal renal size. No evidence of nephrolithiasis, hydronephrosis, or solid renal mass. Dictated by Duncan Flores MD (radiology ct technologist). Dr. TREVOR Ahuja M.D. have personally reviewed and interpreted this examination/study. This report was electronically signed by TREVOR CARMICHAEL M.D. on09/03/2020 11:52 AM . Reena Cotter MD US ORDERABLES * NM CYSTOMETROGRAM W/PRESS TENDER SHORT GOODS, NM ANAL/URINARY MUSCLE STUDY (08/27/2020 10:56 AM CDT) Narrative Reena Cotter MD - 08/27/2020 10:56 AM CDT Reena Cotter MD ? 08/27/2020 11:13 AM Urodynamic Results Indication for Procedure: MS, assess for bladder safety. ??Pt with urgency/frequency/enuresis Noninvasive Uroflow: Comments: not performed, 200 ml in bladder on arrival after voiding Cystometrogram: First Sensation: 56 ml Capacity: 600 ml Compliance: normal Instability: no Urge incontinence: no Stress incontinence: no at 382 ml VLPP: n/a DLPP: n/a EMG: normal Comments: Pressure Flow Study: Qmax: Pt unable to void Qave: same Pdet at Qmax: not able to void, but generated low bladder pressures to 30 cm H2O Voiding time: n/a EMG: increased activity, but associated with abdominal straining (rather than pure sphincter activity) Residual: 600 ML Comments: Findings: impaired contractility and poor emptying, + hypersensitivity Plan: see note Reena Cotter MD Reena Cotter MD PROCEDURE/MINOR WHYTE RGICAL ORDERABLES * NM CHEMODENERV MUSC MIGRAINE (07/21/2020 9:37 AM CDT) Narrative Mckayla Haywood MD - 07/21/2020 9:37 AM CDT Mckayla Haywood MD ? 07/21/2020 10:02 AM Patient's identity confirmed by having patient say first and last name, and date of . Diagnosis: Chronic migraine G 43.709 Chronic migraine without aura, non-intractable, without status migrainosus ?? G 43.719 Chronic migraine without aura,intractable, ??Without status migrainosus x G 43.701 Chronic migraine without aura, ??Not intractable,, with status migrainosus ?? G 43.711 Chronic migraine without aura, intractable, with status migrainosus ?? Procedure code: 90519 History: Baseline number of headaches per month:30 Current headaches per month:5 Number of headache hours per day (baseline): 12 Number of headache hour per day (current): 6 Associated symptoms (baseline): ?? Moderate to severe pain, nausea, vomiting, photophobia, phonophobia. Associated symptoms (current): ?? Moderate pain, nausea, photophobia, phonophobia. The patient has had significant benefit from Botox with a 50% reduction in headache frequency and severity. Current migraine prophylactic medications: Current migraine abortive treatments:sumatripan, Fioricet Date of last injection: ??04/19/2020 Duration of benefit: 2-3 months Side effects after the last injection None The indications for botulinum toxin administration, the transient nature of the expected benefit and the potential side effects including lack of improvement, pain, infection, bleeding, allergic reaction, excessive local or distant paralysis, including the possibility of shortness of breath, swallowing difficulty, droopy eyelid and double vision were discussed. The patient had an opportunity to ask questions and consented to the procedure. (women of childbearing age): Not Antiplatelet/Anticoagulation: None BOTOX ADMINISTRATION MODIFIED PREEMPT PROTOCOL Diluted 200 units of Botox with 4 ml of non preserved normal saline Drawn into 1 ml syringes ??fitted with 30 gauge 0.5 inch needles. Each syringe had 1 ml = 50 units, and 0.1 ml = 5 units Time out was performed before starting administration. Administration: Corrugators 10 Units (2 sites) Procerus 5 Units L and R Frontalis 20 units (4 sites) R Temporalis 25 units (4 sites) L Temporalis 25 units (4 sites) R Occipitalis 15 units (3 sites) L Occipitalis 15 units (3 sites) R Auricular 12.5 units (2 sites) L Auricular 12.5 units (2 sites) R Cerv. paraspinals 10 units (over 2 sites) L Cerv. paraspinals 10 units (over 2 sites) L. Trapezus 20 units (over 3 sites) R. Trapezus 20 units (over 3 sites) Total 200 units No units wasted There were no complications. The patient tolerated the procedure well. Patient is call if experiences any side effects or has any questions. The number for the Neurology Clinic was provided to the patient. Patient to return in 3 month as needed for further treatment. Ordered 200 units for next visit. Mckayla Haywood MD PROCEDURE/MINOR SURG ICAL ORDERABLES * NM CHEMODENERV MUSC MIGRAINE (04/19/2020 8:59 AM GUEST RELATIONS EXECUTIVE) Narrative Mckayla Haywood MD - 04/19/2020 8:59 AM GUEST RELATIONS EXECUTIVE Mckayla Haywood MD ? 04/19/2020 ??9:06 AM Patient's identity confirmed by having patient say first and last name, and date of . Diagnosis: Chronic migraine G 43.709 Chronic migraine without aura, non-intractable, without status migrainosus ?? G 43.719 Chronic migraine without aura,intractable, ??Without status migrainosus x G 43.701 Chronic migraine without aura, ??Not intractable,, with status migrainosus ?? G 43.711 Chronic migraine without aura, intractable, with status migrainosus ?? Procedure code: 90573 History: Baseline number of headaches per month: 30 Current headaches per month:5 Number of headache hours per day (baseline): 12 Number of headache hour per day (current): 6 Associated symptoms (baseline): ?? Moderate to severe pain, nausea, vomiting, photophobia, phonophobia. Associated symptoms (current): ?? Moderate pain, nausea, photophobia, phonophobia. The patient has had significant benefit from Botox with a 50% reduction in headache frequency and severity. Current migraine prophylactic medications: Current migraine abortive treatments:Sumatriptan, Fioricet Date of last injection: ??01/12/2020 Duration of benefit: 2-3 months Side effects after the last injection None The indications for botulinum toxin administration, the transient nature of the expected benefit and the potential side effects including lack of improvement, pain, infection, bleeding, allergic reaction, excessive local or distant paralysis, including the possibility of shortness of breath, swallowing difficulty, droopy eyelid and double vision were discussed. The patient had an opportunity to ask questions and consented to the procedure. (women of childbearing age): Not Antiplatelet/Anticoagulation: None BOTOX ADMINISTRATION MODIFIED PREEMPT PROTOCOL Diluted 200 units of Botox with 4 ml of non preserved normal saline Drawn into 1 ml syringes ??fitted with 30 gauge 0.5 inch needles. Each syringe had 1 ml = 50 units, and 0.1 ml = 5 units Time out was performed before starting administration. Administration: Corrugators 10 Units (2 sites) Procerus 5 Units L and R Frontalis 20 units (4 sites) R Temporalis 25 units (4 sites) L Temporalis 25 units (4 sites) R Occipitalis 15 units (3 sites) L Occipitalis 15 units (3 sites) R Auricular 12.5 units (2 sites) L Auricular 12.5 units (2 sites) R Cerv. paraspinals 10 units (over 2 sites) L Cerv. paraspinals 10 units (over 2 sites) L. Trapezus 20 units (over 3 sites) R. Trapezus 20 units (over 3 sites) Total 200 units No units wasted There were no complications. The patient tolerated the procedure well. Patient is call if experiences any side effects or has any questions. The number for the Neurology Clinic was provided to the patient. Patient to return in 3 month as needed for further treatment. Ordered 200 units for next visit. Mckayla Haywood MD PROCEDURE/MINOR SURG ICAL ORDERABLES * NM CHEMODENERV MUSC MIGRAINE (01/12/2020 9:12 AM CDT) Narrative Mckayla Haywood MD - 01/12/2020 9:12 AM CDT Mckayla Haywood MD ? 01/12/2020 ??6:08 PM Patient's identity confirmed by having patient say first and last name, and date of . Diagnosis: Chronic migraine G 43.709 Chronic migraine without aura, non-intractable, without status migrainosus ?? G 43.719 Chronic migraine without aura,intractable, ??Without status migrainosus x G 43.701 Chronic migraine without aura, ??Not intractable,, with status migrainosus ?? G 43.711 Chronic migraine without aura, intractable, with status migrainosus ?? Procedure code: 27633 History: Baseline number of headaches per month:30?? Current headaches per month:3-4 Number of headache hours per day baseline: 12 Number of headache days per hour current: 6 Associated symptoms baseline: ?? Moderate to severe pain, nausea, vomiting, photophobia, phonophobia. Associated symptoms current: ?? Moderate pain, nausea, photophobia, phonophobia. The patient has had significant benefit from Botox with a 50% reduction in headache frequency and severity. Current migraine prophylactic medications: Current migraine abortive treatments:??sumatriptan, fioricet?? Date of last injection: ??10/13/2019 Duration of benefit: 3 months Side effects after the last injection None The indications for botulinum toxin administration, the transient nature of the expected benefit and the potential side effects including lack of improvement, pain, infection, bleeding, allergic reaction, excessive local or distant paralysis, including the possibility of shortness of breath, swallowing difficulty, droopy eyelid and double vision were discussed. The patient had an opportunity to ask questions and consented to the procedure. (women of childbearing age): Not Antiplatelet/Anticoagulation: None BOTOX ADMINISTRATION MODIFIED PREEMPT PROTOCOL Diluted 200 units of Botox with 4 ml of non preserved normal saline Drawn into 1 ml syringes ??fitted with 30 gauge 0.5 inch needles. Each syringe had 1 ml = 50 units, and 0.1 ml = 5 units Time out was performed before starting administration. Administration: Corrugators 10 Units (2 sites) Procerus 5 Units L and R Frontalis 20 units (4 sites) R Temporalis 25 units (4 sites) L Temporalis 25 units (4 sites) R Occipitalis 15 units (3 sites) L Occipitalis 15 units (3 sites) R Auricular 12.5 units (2 sites) L Auricular 12.5 units (2 sites) R Cerv. paraspinals 10 units (over 2 sites) L Cerv. paraspinals 10 units (over 2 sites) L. Trapezus 20 units (over 3 sites) R. Trapezus 20 units (over 3 sites) Total 200 units No units wasted There were no complications. The patient tolerated the procedure well. Patient is call if experiences any side effects or has any questions. The number for the Neurology Clinic was provided to the patient. Patient to return in 3 month as needed for further treatment. Ordered 200 units for next visit. Mckayla Haywood MD PROCEDURE/MINOR SURG ICAL ORDERABLES * NM CHEMODENERV MUSC MIGRAINE (10/13/2019 8:52 AM CDT) Narrative Mckayla Haywood MD - 10/13/2019 8:52 AM CDT Mckayla Haywood MD ? 10/13/2019 10:05 AM Patient's identity confirmed by having patient say first and last name, and date of . Diagnosis: Chronic migraine G 43.709 Chronic migraine without aura, non-intractable, without status migrainosus ?? G 43.719 Chronic migraine without aura,intractable, ??Without status migrainosus x G 43.701 Chronic migraine without aura, ??Not intractable,, with status migrainosus ?? G 43.711 Chronic migraine without aura, intractable, with status migrainosus ?? Procedure code: [id number] History: Baseline number of headaches per month:30 Current headaches per month:3-4 Number of headache hours per day baseline: 12 Number of headache days per hour current: 6 Associated symptoms baseline: ?? Moderate to severe pain, nausea, vomiting, photophobia, phonophobia. Associated symptoms current: ?? Moderate pain, nausea, photophobia, phonophobia. The patient has had significant benefit from Botox with a 50% reduction in headache frequency and severity. Current migraine prophylactic medications: Current migraine abortive treatments: sumatriptan, fioricet Date of last injection: ??07/09/2019 Duration of benefit: 3 months Side effects after the last injection None The indications for botulinum toxin administration, the transient nature of the expected benefit and the potential side effects including lack of improvement, pain, infection, bleeding, allergic reaction, excessive local or distant paralysis, including the possibility of shortness of breath, swallowing difficulty, droopy eyelid and double vision were discussed. The patient had an opportunity to ask questions and consented to the procedure. (women of childbearing age): Not Antiplatelet/Anticoagulation: None BOTOX ADMINISTRATION MODIFIED PREEMPT PROTOCOL Diluted 200 units of Botox with 4 ml of non preserved normal saline Drawn into 1 ml syringes ??fitted with 30 gauge 0.5 inch needles. Each syringe had 1 ml = 50 units, and 0.1 ml = 5 units Time out was performed before starting administration. Administration: Corrugators 10 Units (2 sites) Procerus 5 Units L and R Frontalis 20 units (4 sites) R Temporalis 25 units (4 sites) L Temporalis 25 units (4 sites) R Occipitalis 15 units (3 sites) L Occipitalis 15 units (3 sites) R Auricular 12.5 units (2 sites) L Auricular 12.5 units (2 sites) R Cerv. paraspinals 10 units (over 2 sites) L Cerv. paraspinals 10 units (over 2 sites) L. Trapezus 20 units (over 3 sites) R. Trapezus 20 units (over 3 sites) Total 200 units No units wasted There were no complications. The patient tolerated the procedure well. Patient is call if experiences any side effects or has any questions. The number for the Neurology Clinic was provided to the patient. Patient to return in 3 month as needed for further treatment. Ordered 200 units for next visit. Mckayla Haywood MD PROCEDURE/MINOR SURG ICAL ORDERABLES * PROC INJECTION - BOTOX (07/09/2019 10:52 AM CDT) Narrative Mckayla Haywood MD - 07/09/2019 10:52 AM CDT Mckayla Haywood MD ? 07/09/2019 11:23 AM Patient's identity confirmed by having patient say first and last name, and date of . Diagnosis: Chronic migraine G 43.709 Chronic migraine without aura, non-intractable, without status migrainosus ?? G 43.719 Chronic migraine without aura,intractable, ??Without status migrainosus x G 43.701 Chronic migraine without aura, ??Not intractable,, with status migrainosus ?? G 43.711 Chronic migraine without aura, intractable, with status migrainosus ?? Procedure code: [id number] History: Baseline number of headaches per month:30 Current headaches per month:3-4, ??However off of 3 month schedule, so migraines have returned. Number of headache hours per day baseline: 12 Number of headache days per hour current: 6 Associated symptoms baseline: ?? Moderate to severe pain, nausea, vomiting, photophobia, phonophobia. Associated symptoms current: ?? Moderate pain, nausea, photophobia, phonophobia. The patient has had significant benefit from Botox with a 50% reduction in headache frequency and severity. Current migraine prophylactic medications: Current migraine abortive treatments:sumatriptan, fioricet Date of last injection: 01/27/2019 Duration of benefit: 3 months, off of 3 month schedule Side effects after the last injection None The indications for botulinum toxin administration, the transient nature of the expected benefit and the potential side effects including lack of improvement, pain, infection, bleeding, allergic reaction, excessive local or distant paralysis, including the possibility of shortness of breath, swallowing difficulty, droopy eyelid and double vision were discussed. The patient had an opportunity to ask questions and consented to the procedure. (women of childbearing age): Not Antiplatelet/Anticoagulation: none BOTOX ADMINISTRATION MODIFIED PREEMPT PROTOCOL Diluted 200 units of Botox with 4 ml of non preserved normal saline Drawn into 1 ml syringes ??fitted with 30 gauge 0.5 inch needles. Each syringe had 1 ml = 50 units, and 0.1 ml = 5 units Time out was performed before starting administration. Administration: Corrugators 10 Units (2 sites) Procerus 5 Units L and R Frontalis 20 units (4 sites) R Temporalis 25 units (4 sites) L Temporalis 25 units (4 sites) R Occipitalis 15 units (3 sites) L Occipitalis 15 units (3 sites) R Auricular 12.5 units (2 sites) L Auricular 12.5 units (2 sites) R Cerv. paraspinals 10 units (over 2 sites) L Cerv. paraspinals 10 units (over 2 sites) L. Trapezus 20 units (over 3 sites) R. Trapezus 20 units (over 3 sites) Total 200 units No units wasted There were no complications. The patient tolerated the procedure well. Patient is call if experiences any side effects or has any questions. The number for the Neurology Clinic was provided to the patient. Patient to return in 3 month as needed for further treatment. Ordered 200 units for next visit. Mckayla Haywood MD PROCEDURE/MINOR SURG ICAL ORDERABLES * PROC INJECTION - BOTOX (01/27/2019 8:52 AM GUEST RELATIONS EXECUTIVE) Narrative Mckayla Haywood MD - 01/27/2019 8:52 AM GUEST RELATIONS EXECUTIVE Mckayla Haywood MD ? 01/27/2019 ??9:59 AM Patient's identity confirmed by having patient say first and last name, and date of . Diagnosis: Chronic migraine G 43.709 Chronic migraine without aura, non-intractable, without status migrainosus ?? G 43.719 Chronic migraine without aura,intractable, ??Without status migrainosus x G 43.701 Chronic migraine without aura, ??Not intractable,, with status migrainosus ?? G 43.711 Chronic migraine without aura, intractable, with status migrainosus ?? Procedure code: [id number] History: Baseline number of headaches per month:30 Current headaches per month:3-4 Number of headache hours per day baseline: 12 Number of headache days per hour current: 6 Associated symptoms baseline: ?? Moderate to severe pain, nausea, vomiting, photophobia, phonophobia. Associated symptoms current: ?? Moderate pain, nausea, photophobia, phonophobia. The patient has had significant benefit from Botox with a 50% reduction in headache frequency and severity. Current migraine prophylactic medications: Current migraine abortive treatments: sumatripan, fioricet Date of last injection: 10/21/2018 Duration of benefit: 10 weeks. Side effects after the last injection None The indications for botulinum toxin administration, the transient nature of the expected benefit and the potential side effects including lack of improvement, pain, infection, bleeding, allergic reaction, excessive local or distant paralysis, including the possibility of shortness of breath, swallowing difficulty, droopy eyelid and double vision were discussed. The patient had an opportunity to ask questions and consented to the procedure. (women of childbearing age): Not Antiplatelet/Anticoagulation: None BOTOX ADMINISTRATION MODIFIED PREEMPT PROTOCOL Diluted 200 units of Botox with 4 ml of non preserved normal saline Drawn into 1 ml syringes ??fitted with 30 gauge 0.5 inch needles. Each syringe had 1 ml = 50 units, and 0.1 ml = 5 units Time out was performed before starting administration. Administration: Corrugators 10 Units (2 sites) Procerus 5 Units L and R Frontalis 20 units (4 sites) R Temporalis 25 units (4 sites) L Temporalis 25 units (4 sites) R Occipitalis 15 units (3 sites) L Occipitalis 15 units (3 sites) R Auricular 12.5 units (2 sites) L Auricular 12.5 units (2 sites) R Cerv. paraspinals 10 units (over 2 sites) L Cerv. paraspinals 10 units (over 2 sites) L. Trapezus 20 units (over 3 sites) R. Trapezus 20 units (over 3 sites) Total 200 units No units wasted There were no complications. The patient tolerated the procedure well. Patient is call if experiences any side effects or has any questions. The number for the Neurology Clinic was provided to the patient. Patient to return in 3 month as needed for further treatment. Ordered 200 units for next visit. Mckayla Haywood MD PROCEDURE/MINOR SURG ICAL ORDERABLES * QUANTIFERON-TB GOLD PLUS 1-TUBE (10/31/2018 11:22 AM CDT) QuantiFERON TB Gold Plus NEGATIVE NEGATIVE [facility] Comment: Negative test result. M. tuberculosis complex infection unlikely. NIL 0.03 IU/mL [facility] MITOGEN MINUS NIL RESULT 9.87 IU/mL [facility] TB1-NIL 0.10 IU/mL [facility] TB2-NIL 0.06 IU/mL [facility] Comment: The Nil tube value reflects the background interferon gamma immune response of the patient's blood sample. This value has been subtracted from the patient's displayed TB and Mitogen results. Lower than expected results with the Mitogen tube prevent false-negative Quantiferon readings by detecting a patient with a potential immune suppressive condition and/or suboptimal pre-analytical specimen handling. The TB1 Antigen tube is coated with the M. tuberculosis-specific antigens designed to elicit responses from TB antigen primed CD4+ helper T-lymphocytes. The TB2 Antigen tube is coated with the M. tuberculosis-specific antigens designed to elicit responses from TB antigen primed CD4+ helper and CD8+ cytotoxic T-lymphocytes. For additional information, please refer to https://education.shoply/faq/MXV086 (This link is being provided for informational/ educational purposes only.) REPORT COMMENT: FASTING:NO Test Performed at: [facility] [address] [place], [place] ??[address] YMKEL ALVARES DO,MPH 10/31/2018 11:2 2 AM CDT 10/31/2018 11:25 AM CDT Markus Cabral MD LAB - CHEMISTRY ORDERABLES Performing Organization Address City/State/[facility] Co de Phone Number [facility] [address] [place] [address] * (ABNORMAL) T+B LYMPHOCYTE DIFFERENTIAL PROFILE (10/31/2018 11:22 AM CDT) %CD3 (Mature T Cells) 79 57 - 85 % [facility] Absolute CD3 + Cells 1294 840 - 3060 cells/uL [facility] CD4 ([place] Cells) 50 30 - 61 % [facility] Absolute CD4 + Cells 829 490 - 1740 cells/uL [facility] % CD8 (Supressor T Cells) 30 12 - 42 % [facility] Absolute CD8 + Cells 494 180 - 1170 cells/uL [facility] [place]/Supressor Ratio 1.7 0.86 - 5.00 [facility] CD19 1(L) 6 - 29 % [facility] Absolute CD19 Cells <20(L) 110 - 660 cells/uL [facility] Lymphocytes Absolute 1641 850 - 3900 cells/uL [facility] Comment: Test Performed at: [facility] [address] [place], [place] ??[phone] MICHAEL GONZALEZ MD,PHD,CAROLYN Comments [facility] Comment: Test Performed at: [facility] [address] [place], [place] ??[address] MICHAEL GONZALEZ MD,PHD,CAROLYN Blood BLOOD SPECIMEN / Unknown 10/31/2018 11:22 AM CDT 10/31/2018 11:25 AM CDT Markus Cabral MD LAB - HEMATOLOGY ORDERABLES Performing Organization Address [facility] [place] [place] [address] * HEPATITIS B CORE ANTIBODY (10/31/2018 11:22 AM CDT) Only the most recent of2 resultswithin the time period is included. Hepatitis B Core Virus Antibody Total NON-REACTI VE NON-REACT PAM [facility] Comment: Test Performed at: [facility] [address] [place], [place] ??[phone] MYKEL ALVARES DO,MPH 10/31/2018 11:2 2 AM CDT 10/31/2018 11:25 AM CDT Markus Cabral MD LAB - CHEMISTRY ORDERABLES Performing Organization Address [facility] Co de Phone Number [facility] [phone] [place] [address] * IMMUNOGLOBULINS IGG/IGM/IGA PANEL (10/31/2018 11:22 AM CDT) IgA 101 47 - 310 mg/dL [facility] IgG 815 600 - 1640 mg/dL [facility] IgM 64 50 - 300 mg/dL [facility] Comment: Test Performed at: [facility] [address] [place], [place] ??[phone] MYKEL ALVARES DO,MPH Blood BLOOD SPECIMEN / Unknown 10/31/2018 11:22 AM CDT 10/31/2018 11:25 AM CDT Markus Cabral MD LAB - CHEMISTRY ORDERABLES [facility] [address] [place] [address] * NM CHEMODENERV MUSC MIGRAINE (10/21/2018 12:07 PM CDT) Narrative Mckayla Haywood MD - 10/21/2018 12:07 PM CDT Mckayla Haywood MD ? 10/21/2018 12:07 PM Patient's identity confirmed by having patient say first and last name, and date of . Diagnosis: Chronic migraine G 43.709 Chronic migraine without aura, non-intractable, without status migrainosus ?? G 43.719 Chronic migraine without aura,intractable, ??Without status migrainosus x G 43.701 Chronic migraine without aura, ??Not intractable,, with status migrainosus ?? G 43.711 Chronic migraine without aura, intractable, with status migrainosus ?? Procedure code: [id number] History: Baseline number of headaches per month:30 Current headaches per month: 5-10 Number of headache hours per day baseline: 12 Number of headache days per hour current: 2 Associated symptoms baseline: ?? Moderate to severe pain, nausea, vomiting, photophobia, phonophobia. Associated symptoms current: ?? Moderate pain, nausea, photophobia, phonophobia. The patient has had significant benefit from Botox with a 50% reduction in headache frequency and severity. Current migraine prophylactic medications: Current migraine abortive treatments:sumatriptan Date of last injection: ??07/22/2018 Duration of benefit: 3 months Side effects after the last injection none The indications for botulinum toxin administration, the transient nature of the expected benefit and the potential side effects including lack of improvement, pain, infection, bleeding, allergic reaction, excessive local or distant paralysis, including the possibility of shortness of breath, swallowing difficulty, droopy eyelid and double vision were discussed. The patient had an opportunity to ask questions and consented to the procedure. (women of childbearing age): Not Antiplatelet/Anticoagulation: None BOTOX ADMINISTRATION MODIFIED PREEMPT PROTOCOL Diluted 200 units of Botox with 4 ml of non preserved normal saline Drawn into 1 ml syringes ??fitted with 30 gauge 0.5 inch needles. Each syringe had 1 ml = 50 units, and 0.1 ml = 5 units Time out was performed before starting administration. Administration: Corrugators 10 Units (2 sites) Procerus 5 Units L and R Frontalis 20 units (4 sites) R Temporalis 25 units (4 sites) L Temporalis 25 units (4 sites) R Occipitalis 15 units (3 sites) L Occipitalis 15 units (3 sites) R Auricular 12.5 units (2 sites) L Auricular 12.5 units (2 sites) R Cerv. paraspinals 10 units (over 2 sites) L Cerv. paraspinals 10 units (over 2 sites) L. Trapezus 20 units (over 3 sites) R. Trapezus 20 units (over 3 sites) Total 200 units No units wasted There were no complications. The patient tolerated the procedure well. Patient is call if experiences any side effects or has any questions. The number for the Neurology Clinic was provided to the patient. Patient to return in 3 month as needed for further treatment. Ordered 200 units for next visit. Mckayla Haywood MD PROCEDURE/MINOR SURG ICAL ORDERABLES * NM CHEMODENERV MUSC MIGRAINE (07/22/2018 9:29 AM CDT) Narrative Mckayla Haywood MD - 07/22/2018 9:29 AM CDT Mckayla Haywood MD ? 07/22/2018 ??9:29 AM Patient's identity confirmed by having patient say first and last name, and date of . Diagnosis: Chronic migraine G 43.709 Chronic migraine without aura, non-intractable, without status migrainosus ?? G 43.719 Chronic migraine without aura,intractable, ??Without status migrainosus x G 43.701 Chronic migraine without aura, ??Not intractable,, with status migrainosus ?? G 43.711 Chronic migraine without aura, intractable, with status migrainosus ?? Procedure code: 92929 History: Baseline number of headaches per month: 20 Current headaches per month:3 Number of headache hours per day baseline: 12 Number of headache days per hour current: 2 Associated symptoms baseline: ?? Moderate to severe pain, nausea, vomiting, photophobia, phonophobia. Associated symptoms current: ?? Moderate pain, nausea, photophobia, phonophobia. The patient has had significant benefit from Botox with a 50% reduction in headache frequency and severity. Current migraine prophylactic medications: zonisamide Current migraine abortive treatments: Date of last injection: ??04/15/2018 Duration of benefit: 2.5 months. ?? Side effects after the last injection ??None The indications for botulinum toxin administration, the transient nature of the expected benefit and the potential side effects including lack of improvement, pain, infection, bleeding, allergic reaction, excessive local or distant paralysis, including the possibility of shortness of breath, swallowing difficulty, droopy eyelid and double vision were discussed. The patient had an opportunity to ask questions and consented to the procedure. (women of childbearing age): Not . Antiplatelet/Anticoagulation: None BOTOX ADMINISTRATION Diluted 200 units of Botox with 4 ml of non preserved normal saline Drawn into 1 ml syringes ??fitted with 30 gauge 0.5 inch needles. Each syringe had 1 ml = 50 units, and 0.1 ml = 5 units Time out was performed before starting administration. Administration: Corrugators 10 Units (2 sites) Procerus 5 Units L and R Frontalis 20 units (4 sites) R Temporalis 20 units (4 sites) L Temporalis 20 units (4 sites) R Occipitalis 15 units (3 sites) L Occipitalis 15 units (3 sites) R Cerv. paraspinals 10 units (over 2 sites) L Cerv. paraspinals 10 units (over 2 sites) L. Trapezus 15 units (over 3 sites) R. Trapezus 15 units (over 3 sites) Total 155 units 45 units wasted There were no complications. The patient tolerated the procedure well. Patient is call if experiences any side effects or has any questions. The number for the Neurology Clinic was provided to the patient. Patient to return in 3 month as needed for further treatment. Ordered 200 units for next visit. Mckayla Haywood MD PROCEDURE/MINOR SURG ICAL ORDERABLES * MRI THORACIC SPINE WWO CONT (07/15/2018 11:14 AM CDT) Only the most recent of10 resultswithin the time period is included. Anatomical Region Laterality Modality Spine Magnetic Resonan ce 07/15/2018 11:5 5 AM CDT Impressions 07/15/2018 12:43 PM CDT IMPRESSION: 1. No evidence of active demyelination is identified in the brain, cervical spinal cord or thoracic spinal cord. 2. Stable extensive supratentorial demyelinating plaques of the brain, advanced for age generalized cerebral atrophy with associated appropriate ex vacuo ventriculomegaly. 3. Stable extensive segmental demyelinating plaques of almost the entire cervical spinal cord as well as the mid to lower thoracic spinal cord. This report was electronically signed by WILLARD ANAND ??on 07/15/2018 12:43 PM . Narrative 07/15/2018 12:43 PM CDT EXAMINATION: 1. MRI BRAIN WITHOUT AND WITH INTRAVENOUS CONTRAST 2. MRI CERVICAL SPINE WITHOUT AND WITH CONTRAST 3. MRI THORACIC SPINE WITHOUT AND WITH CONTRAST HISTORY: Follow-up multiple sclerosis. COMPARISON: MRI brain without and with contrast dated 06/20/2017, MRI cervical spine without contrast dated 07/03/2017 and MR thoracic spine without and with contrast dated 07/12/2017. TECHNIQUE: Multiplanar, multisequence imaging of the brain, cervical spine and thoracic spine were performed before and also after intravenous administration of gadolinium contrast. CONTRAST: 7 mL Gadavist FINDINGS: BRAIN: There is no evidence of an active demyelination, interval progression of cerebral atrophy or significant interval changes in the appearance of the brain. The T2 hyperintense callosal, callososeptal, and periependymal T2 hyperintense demyelinating plaques as well as the almost confluent hyperintense T2 hyperintense appearance of the deep and subcortical white matter of bilateral fisher radiata and centrum semiovale, are similar to the prior study. The generalized cerebral atrophy which is advanced for the patient's age, is stable. There is a stable ex vacuo ventriculomegaly especially of the third ventricle. The size and extension of the foci of myelin vacuolization with T1 hypointense appearance, is similar to the previous examination. 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 The optic nerves and optic chiasm are stable and normal on the precontrast and the postcontrast images. After contrast administration, there is no evidence of enhancement of the demyelinating plaques or abnormal enhancement in the remainder of the brain. There is no evidence of restricted diffusion of these demyelinating plaques or the remainder of the brain parenchyma. The craniocervical junction, posterior fossa and the marrow signal intensity are normal. The paranasal sinuses, middle ear cavities and mastoid air cells are clear. CERVICAL SPINE: No intramedullary enhancing lesion to indicate an active demyelination is identified. Best seen on the sagittal and axial T2-weighted images, there is stable extensive intramedullary segmental T2 hyperintensities in the entire cervical spinal cord without evidence of expansion or atrophy of the cord and without interval changes. There is no evidence of posterior disc herniation, central canal stenosis or cord compression, throughout. Alignment of the cervical spine is normal. All the vertebral bodies and the disc spaces are normal in heights. There is no evidence of significant desiccation of the discs. The uncovertebral joints and the facets are stable and normal for age. The neural foramina are normal in size. There is no evidence of neural impingement, throughout. The soft tissues of the neck are within normal limits. THORACIC SPINE: Alignment is stable and normal. The vertebral bodies and the intervertebral disc spaces are normal in heights. No fracture, marrow edema, spondylolisthesis or a malignant marrow replacing process is identified, throughout. No intramedullary enhancing lesion of the cord are identified to indicate an active demyelination. The spinal cord is normal in size and contour and it is not compressed. The faintly visible scattered intramedullary T2 hyperintensities in the mid and lower thoracic spinal cord, best seen on the sagittal STIR sequence (series 6, image 11) are stable from the previous examination, in size, number and extension. The posterior protrusion of the disc at T8-T9 without causing central canal stenosis is stable. Tiny right paracentral posterior disc protrusion at T4-T5 is evident without causing central canal stenosis. Incidental note is made of small perineural cysts of the bilateral exiting T1 nerves in the bilateral T1-T2 neural foramina. The paravertebral soft tissues are unremarkable. Procedure Note Willard Anand MD - 07/15/2018 EXAMINATION: 1. MRI BRAIN WITHOUT AND WITH INTRAVENOUS CONTRAST 2. MRI CERVICAL SPINE WITHOUT AND WITH CONTRAST 3. MRI THORACIC SPINE WITHOUT AND WITH CONTRAST HISTORY: Follow-up multiple sclerosis. COMPARISON: MRI brain without and with contrast dated 06/20/2017, MRI cervical spine without contrast dated 07/03/2017 and MR thoracic spine without and with contrast dated 07/12/2017. TECHNIQUE: Multiplanar, multisequence imaging of the brain, cervicalspine and thoracic spine were performed before and also after intravenous administration of gadolinium contrast. CONTRAST: 7 mL Gadavist FINDINGS: BRAIN: There is no evidence of an active demyelination, interval progression of cerebral atrophy or significant interval changes in the appearance ofthe brain. The T2 hyperintense callosal, callososeptal, and periependymal T2 hyperintense demyelinating plaques as well as the almost confluent hyperintense T2 hyperintense appearance of the deep and subcorticalwhite matter of bilateral fisher radiata and centrum semiovale, are similar to the prior study. The generalized cerebral atrophy which is advanced for the patient's age, is stable. There is a stable ex vacuoventriculomegaly especially of the third ventricle. The size and extension of the foci of myelin vacuolization with T1 hypointense appearance, is similar to the previous examination. 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 The optic nerves and optic chiasm are stable and normal on theprecontrast and the postcontrast images. After contrast administration, there is no evidence of enhancement of the demyelinating plaques or abnormal enhancement in the remainder of the brain. There is no evidence of restricted diffusion of these demyelinating plaques or the remainder of the brain parenchyma. The craniocervical junction, posterior fossa andthe marrow signal intensity are normal. The paranasal sinuses, middle ear cavities and mastoid air cells are clear. CERVICAL SPINE: No intramedullary enhancing lesion to indicate an active demyelinationis identified. Best seen on the sagittal and axial T2-weighted images,there is stable extensive intramedullary segmental T2 hyperintensities in the entire cervical spinal cord without evidence of expansion or atrophy of the cord and without interval changes. There is no evidence of posterior disc herniation, central canal stenosis or cord compression, throughout. Alignment of the cervical spine is normal. All the vertebral bodies and the disc spaces are normal in heights. There is no evidence ofsignificant desiccation of the discs. The uncovertebral joints and the facets are stable and normal for age. The neural foramina are normal in size. There is no evidence of neural impingement, throughout. The soft tissues ofthe neck are within normal limits. THORACIC SPINE: Alignment is stable and normal. The vertebral bodies and the intervertebral disc spaces are normal in heights. No fracture, marrow edema, spondylolisthesis or a malignant marrow replacing process is identified, throughout. No intramedullary enhancing lesion of the cord are identified toindicate an active demyelination. The spinal cord is normal in size and contourand it is not compressed. The faintly visible scattered intramedullary T2 hyperintensities in the mid and lower thoracic spinal cord, best seen on the sagittal STIR sequence (series 6, image 11) are stable from the previous examination, in size, number and extension. The posterior protrusion of the disc at T8-T9 without causing central canal stenosis is stable. Tiny right paracentral posterior discprotrusion at T4-T5 is evident without causing central canal stenosis. Incidental note is made of small perineural cysts of the bilateral exiting [id number] in the bilateral T1-T2 neural foramina. The paravertebral soft tissuesare unremarkable. IMPRESSION: 1. No evidence of active demyelination is identified in the brain, cervical spinal cord or thoracic spinal cord. 2. Stable extensive supratentorial demyelinating plaques of the brain, advanced for age generalized cerebral atrophy with associatedappropriate ex vacuo ventriculomegaly. 3. Stable extensive segmental demyelinating plaques of almost the entire cervical spinal cord as well as the mid to lower thoracic spinal cord. This report was electronically signed by WILLARD ANAND on 07/15/201812:43 PM . Alesia JOSHI MR ORDERABLES * CREATININE BLOOD - POCT (IP) [facility] (07/15/2018 9:31 AM CDT) Only the most recent of4 resultswithin the time period is included. Creatinine POCT 1.04 0.3 - 1.3 mg/dL [facility] eGFR POCT 60 60 ml/min [facility] Blood BLOOD SPECIMEN / Unknown 07/15/2018 9:31 AM CDT Alesia JOSHI LAB - POINT OF CARE ORDERABLES [facility] [address] [phone] * VITAMIN D 25-HYDROXY (05/22/2018 10:40 AM GUEST RELATIONS EXECUTIVE) Only the most recent of10 resultswithin the time period is included. Vitamin D, 25 Hydroxy 43.5 See comment: ng/mL 05/22/2018 12:19 PM GUEST RELATIONS EXECUTIVE [facility] Comment: The recommendations for 25-Hydroxy Vitamin D clinical decision points are as follows: ? Deficient: ? <20.0 ng/mL ? Insufficient: ??20.0 - 29.9 ng/mL ? Sufficient: ? > or =30.0 ng/mL If the 25-Hydroxy Vitamin D results are inconsitent with clinical evidence, it is recommended that follow-up testing using a method such as LC/MS/MS be performed to confirm the result. Reference: ?The Endocrine Society Clinical Practice Guidelines. 2011 ? Blood BLOOD SPECIMEN / Unknown Lab Venipuncture / Unknown 05/22/2018 10:40 AM GUEST RELATIONS EXECUTIVE 05/22/2018 11:02 AM GUEST RELATIONS EXECUTIVE Alesia Vazquez [employer]FERENCE [employer] MANAGER[facility] LAB - CHEMISTR Y ORDERABLES Performing Organization Address [facility]/State/[facility] Co de Phone Number [address] [phone] * NM CHEMODENERV MUSC MIGRAINE (04/15/2018 9:18 AM GUEST RELATIONS EXECUTIVE) Narrative Mckayla Haywood MD - 04/15/2018 9:18 AM GUEST RELATIONS EXECUTIVE Mckayla Haywood MD ? 04/15/2018 ??9:18 AM Patient's identity confirmed by having patient say first and last name, and date of . Diagnosis: Chronic migraine G 43.709 Chronic migraine without aura, non-intractable, without status migrainosus ?? G 43.719 Chronic migraine without aura,intractable, ??Without status migrainosus x G 43.701 Chronic migraine without aura, ??Not intractable,, with status migrainosus ?? G 43.711 Chronic migraine without aura, intractable, with status migrainosus ?? Procedure code: 46140 History: Baseline number of headaches per month: 20 Current headaches per month:10 Number of headache hours per day baseline: 12 Number of headache days per hour current: 4 Associated symptoms baseline: ?? Moderate to severe pain, nausea, vomiting, photophobia, phonophobia. Associated symptoms current: ?? Moderate pain, nausea, photophobia, phonophobia. The patient has had significant benefit from Botox with a 50% reduction in headache frequency and severity. Current migraine prophylactic medications: zonegran. Current migraine abortive treatments: Date of last injection: ??01/14/2018 Duration of benefit: 10 weeks Side effects after the last injection None The indications for botulinum toxin administration, the transient nature of the expected benefit and the potential side effects including lack of improvement, pain, infection, bleeding, allergic reaction, excessive local or distant paralysis, including the possibility of shortness of breath, swallowing difficulty, droopy eyelid and double vision were discussed. The patient had an opportunity to ask questions and consented to the procedure. (women of childbearing age): not . Antiplatelet/Anticoagulation: None BOTOX ADMINISTRATION Diluted 200 units of Botox with 4 ml of non preserved normal saline Drawn into 1 ml syringes ??fitted with 30 gauge 0.5 inch needles. Each syringe had 1 ml = 50 units, and 0.1 ml = 5 units Time out was performed before starting administration. Administration: Corrugators 10 Units (2 sites) Procerus 5 Units L and R Frontalis 20 units (4 sites) R Temporalis 20 units (4 sites) L Temporalis 20 units (4 sites) R Occipitalis 15 units (3 sites) L Occipitalis 15 units (3 sites) R Cerv. paraspinals 10 units (over 2 sites) L Cerv. paraspinals 10 units (over 2 sites) L. Trapezus 15 units (over 3 sites) R. Trapezus 15 units (over 3 sites) Total 155 units 45 units wasted There were no complications. The patient tolerated the procedure well. Patient is call if experiences any side effects or has any questions. The number for the Neurology Clinic was provided to the patient. Patient to return in 3 month as needed for further treatment. Ordered 200 units for next visit. Mckayla Haywood MD PROCEDURE/MINOR SURG ICAL ORDERABLES * NM CHEMODENERV MUSC MIGRAINE (01/14/2018 12:03 PM CDT) Narrative Mckayla Haywood MD - 01/14/2018 12:03 PM CDT Mckayla Haywood MD ? 01/14/2018 12:03 PM Patient's identity confirmed by having patient say first and last name, and date of . Diagnosis: Chronic migraine G 43.709 Chronic migraine without aura, non-intractable, without status migrainosus ?? G 43.719 Chronic migraine without aura,intractable, ??Without status migrainosus ?? G 43.701 Chronic migraine without aura, ??Not intractable,, with status migrainosus ?? G 43.711 Chronic migraine without aura, intractable, with status migrainosus ?? Procedure code: 75344 History: Baseline number of headaches per month:20 Current headaches per month:10 migraine, but baseline low grade headache on daily basis. Number of headache hours per day baseline: 12 Number of headache days per hour current: 4 Associated symptoms baseline: ?? Moderate to severe pain, nausea, vomiting, photophobia, phonophobia. Associated symptoms current: ?? Moderate pain, nausea, photophobia, phonophobia. The patient has had significant benefit from Botox with a 50% reduction in headache frequency and severity. Current migraine prophylactic medications: zonisamide. Current migraine abortive treatments: sumatriptan but stopped because side effect. Date of last injection: ??10/17/2017 Duration of benefit: Great benefit for 30 days, then starts wearing off. Side effects after the last injection none The indications for botulinum toxin administration, the transient nature of the expected benefit and the potential side effects including lack of improvement, pain, infection, bleeding, allergic reaction, excessive local or distant paralysis, including the possibility of shortness of breath, swallowing difficulty, droopy eyelid and double vision were discussed. The patient had an opportunity to ask questions and consented to the procedure. (women of childbearing age): not Antiplatelet/Anticoagulation: None BOTOX ADMINISTRATION Diluted 200 units of Botox with 4 ml of non preserved normal saline Drawn into 1 ml syringes ??fitted with 30 gauge 0.5 inch needles. Each syringe had 1 ml = 50 units, and 0.1 ml = 5 units Time out was performed before starting administration. Administration: Corrugators 10 Units (2 sites) Procerus 5 Units L and R Frontalis 20 units (4 sites) R Temporalis 20 units (4 sites) L Temporalis 20 units (4 sites) R Occipitalis 15 units (3 sites) L Occipitalis 15 units (3 sites) R Cerv. paraspinals 10 units (over 2 sites) L Cerv. paraspinals 10 units (over 2 sites) L. Trapezus 15 units (over 3 sites) R. Trapezus 15 units (over 3 sites) Total 155 units 45 units wasted There were no complications. The patient tolerated the procedure well. Patient is call if experiences any side effects or has any questions. The number for the Neurology Clinic was provided to the patient. Patient to return in 3 month as needed for further treatment. Ordered 200 units for next visit. cMkayla Haywood MD PROCEDURE/MINOR SURG ICAL ORDERABLES * LAB RESULTS ORDER (10/31/2017 11:39 AM CDT) Narrative 10/31/2017 11:39 AM CDT Ordered by an unspecified provider. Scanned Document LAB - THERAPEUTIC DR SERRA MONITORING ORDERABLES * NM CHEMODENERV MUSC MIGRAINE (10/17/2017 2:45 PM CDT) Narrative Mckayla Haywood MD - 10/17/2017 2:45 PM CDT Mckayla Haywood MD ? 10/17/2017 ??2:45 PM Patient's identity confirmed by having patient say first and last name, and date of . Diagnosis: Chronic migraine G 43.709 Chronic migraine without aura, non-intractable, without status migrainosus ?? G 43.719 Chronic migraine without aura,intractable, ??Without status migrainosus x G 43.701 Chronic migraine without aura, ??Not intractable,, with status migrainosus ?? G 43.711 Chronic migraine without aura, intractable, with status migrainosus ?? Procedure code: [id number] History: Baseline number of headaches per month: 10-24 Current headaches per month: 5 Number of headache hours per day baseline: 12 Number of headache days per hour current: 4 Associated symptoms baseline: ?? Moderate to severe pain, nausea, vomiting, photophobia, phonophobia. Associated symptoms current: ?? Moderate pain, nausea, photophobia, phonophobia. The patient has had significant benefit from Botox with a 50% reduction in headache frequency and severity. Current migraine prophylactic medications: zonisamide Current migraine abortive treatments: sumatriptan Date of last injection: ??07/18/2017 Duration of benefit: 3 months Side effects after the last injection ??None The indications for botulinum toxin administration, the transient nature of the expected benefit and the potential side effects including lack of improvement, pain, infection, bleeding, allergic reaction, excessive local or distant paralysis, including the possibility of shortness of breath, swallowing difficulty, droopy eyelid and double vision were discussed. The patient had an opportunity to ask questions and consented to the procedure. (women of childbearing age): Not . Antiplatelet/Anticoagulation: None BOTOX ADMINISTRATION Diluted 200 units of Botox with 4 ml of non preserved normal saline Drawn into 1 ml syringes ??fitted with 30 gauge 0.5 inch needles. Each syringe had 1 ml = 50 units, and 0.1 ml = 5 units Time out was performed before starting administration. Administration: Corrugators 10 Units (2 sites) Procerus 5 Units L and R Frontalis 20 units (4 sites) R Temporalis 20 units (4 sites) L Temporalis 20 units (4 sites) R Occipitalis 15 units (3 sites) L Occipitalis 15 units (3 sites) R Cerv. paraspinals 10 units (over 2 sites) L Cerv. paraspinals 10 units (over 2 sites) L. Trapezus 15 units (over 3 sites) R. Trapezus 15 units (over 3 sites) Total 155 units 45 units wasted There were no complications. The patient tolerated the procedure well. Patient is call if experiences any side effects or has any questions. The number for the Neurology Clinic was provided to the patient. Patient to return in 3 month as needed for further treatment. Ordered 200 units for next visit. Mckayla Haywood MD PROCEDURE/MINOR SURG ICAL ORDERABLES * NM CHEMODENERV MUSC MIGRAINE (07/18/2017 12:35 PM CDT) Narrative Mckayla Haywood MD - 07/18/2017 12:35 PM CDT Mckayla Haywood MD ? 07/18/2017 12:35 PM Patient's identity confirmed by having patient say first and last name, and date of . Diagnosis: Chronic migraine G 43.709 Chronic migraine without aura, non-intractable, without status migrainosus ?? G 43.719 Chronic migraine without aura,intractable, ??Without status migrainosus x G 43.701 Chronic migraine without aura, ??Not intractable,, with status migrainosus ?? G 43.711 Chronic migraine without aura, intractable, with status migrainosus ?? Procedure code: [id number] Date of last Botox procedure 04/18/2017. Side effects of Botox: none Baseline number of migraine headaches per month:20, most 10 out of 10 on the pain scale Current number of migraine headaches per month: 10, headaches are much less severe, 4 out of 10 on the pain scale Number of headache hours per day baseline: 10-24 Number of headache hours per day current: 6 Associated headache symptoms: ?? Moderate to severe pain, nausea, photophobia, phonophobia. ED visits in the last 3 months: None The patient has had significant benefit from Botox with a 50% reduction in headache frequency and severity. Current migraine prophylactic medications: None Current migraine abortive treatments: Imitrex The indications for botulinum toxin administration, the transient nature of the expected benefit and the potential side effects including lack of improvement, pain, infection, bleeding, allergic reaction, excessive local or distant paralysis, including the possibility of shortness of breath, swallowing difficulty, droopy eyelid and double vision were discussed. The patient had an opportunity to ask questions and consented to the procedure. (women of childbearing age): None Antiplatelet/Anticoagulation: None BOTOX ADMINISTRATION Diluted 200 units of Botox with 4 ml of non preserved normal saline Drawn into 1 ml syringes ??fitted with 30 gauge 0.5 inch needles. Each syringe had 1 ml = 50 units, and 0.1 ml = 5 units Time out was performed before starting administration. Administration: Corrugators 10 Units (2 sites) Procerus 5 Units L and R Frontalis 20 units (4 sites) R Temporalis 20 units (4 sites) L Temporalis 20 units (4 sites) R Occipitalis 15 units (3 sites) L Occipitalis 15 units (3 sites) R Cerv. paraspinals 10 units (over 2 sites) L Cerv. paraspinals 10 units (over 2 sites) L. Trapezus 15 units (over 3 sites) R. Trapezus 15 units (over 3 sites) Total 155 units 45 units wasted There were no complications. The patient tolerated the procedure well. Patient is call if experiences any side effects or has any questions. The number for the Neurology Clinic was provided to the patient. Patient to return in 3 month as needed for further treatment. Ordered 200 units for next visit. Mckayla Haywood MD PROCEDURE/MINOR SURG ICAL ORDERABLES * LAB HISTORICAL RESULTS-ONBASE (04/28/2017) Only the most recent of5 resultswithin the time period is included. 04/28/2017 Historical Provider LAB - CHEMISTRY O RDERABLES Performing Organization Address [facility] Co de Phone Number [place] [phone] [address] * CHLAMYDIA + GC + TRICH DNA AMPL (02/28/2017 11:15 AM GUEST RELATIONS EXECUTIVE) Chlamydia trachomatis RNA TMA NOT DETECTED NOT DETECTED [facility] ([facility]) Neisseria gonorrhoeae RNA TMA NOT DETECTED NOT DETECTED [facility] (U) See Note [facility] ([facility]) Comment: This test was performed using the APTIMA COMBO2 Assay ([employer] The analytical performance characteristics of this assay, when used to test SurePath specimens have been determined by [employer]. ?? Trichomonas vaginalis RNA NOT DETECTED NOT DETECTED [facility] ([facility]) Comment: This test was performed using the APTIMA(R) Trichomonas vaginalis assay (Gen-Probe(R)). For more information on this test, go to: http://education.WhenSoon.5o9/faq/Trichomonastma Test Performed at: [facility] [address] [place], [place] ??[id number] MYKEL ALVARES DO,MPH 02/28/2017 11:1 5 AM GUEST RELATIONS EXECUTIVE 03/01/2017 4:54 AM GUEST RELATIONS EXECUTIVE Josef Quinteros MD LAB - MICROBIOLOGY O RDERABLES Performing Organization Address [facility] Co de Phone Number [facility] ([facility]) [phone] * HIV-1 HIV-2 ANTIGEN/ANTIBODY (02/28/2017 11:06 AM GUEST RELATIONS EXECUTIVE) HIV Antigen/Antibody 4th Generation NON-REACT PAM NON-REACT PAM [facility] ([facility]) Comment: HIV-1 antigen and HIV-1/HIV-2 antibodies were [...] ?? For additional information please refer to http://education.shoply/faq/SJC613 (This link is being provided for informational/ educational purposes only.) The performance of this assay has not been clinically validated in patients less than 2 years old. Test Performed at: [facility] [place], [place] ??[address] MYKEL ALVARES DO,MPH 02/28/2017 11:0 6 AM GUEST RELATIONS EXECUTIVE 02/28/2017 11:07 AM GUEST RELATIONS EXECUTIVE Josef Quinteros MD LAB - HEMATOLOGY ORD ERABLES Performing Organization Address [facility] Co de Phone Number [facility] ([facility]) [phone] [place] [address] * RPR W REFLEX CONFIRM (02/28/2017 11:06 AM GUEST RELATIONS EXECUTIVE) Pathologist [facility] RPR NON-REACTI VE NON-REACT PAM [facility] ([facility]) Comment: REPORT COMMENT: FASTING:NO Test Performed at: [facility] [address] [place], [place] ??[address] MYKEL ALVARES DO,MPH 02/28/2017 11:0 6 AM GUEST RELATIONS EXECUTIVE 02/28/2017 11:07 AM GUEST RELATIONS EXECUTIVE Josef Quinteros MD LAB - CHEMISTRY ORDE RABLES Performing Organization Address [facility] Co de Phone Number [facility] ([facility]) [phone] [place] [address] * (ABNORMAL) GLUCOSE ACCUCHECK (10/14/2016 12:27 PM CDT) Only the most recent of90 resultswithin the time period is included. Glucose, Fingerstick 152(H) 70-115mg/d L mg/dL [facility] Comment:Spray Unit Feeder: ALISHA Chen 10/14/2016 12:2 7 PM CDT Bere Denton MD LAB - CHEMISTRY ORDGustavo DOBBS [facility] * (ABNORMAL) BASIC METABOLIC PANEL (CALCIUM TOTAL) (10/14/2016 3:45 AM CDT) Only the most recent of40 resultswithin the time period is included. BUN 17 7 - 26 mg/dL [facility] Creatinine 0.5(L) 0.6 - 1.2 mg/dL [facility] Sodium 142 136 - 145 mmol/L [facility] Potassium 4.0 3.5 - 4.5 mmol/L [facility] Chloride 114(H) 98 - 107 mmol/L [facility] CO2 19(L) 22 - 29 mmol/L [facility] Glucose 139(H) 70 - 115 mg/dL [facility] Calcium 8.7 8.4 - 10.2 mg/dL [facility] Anion Gap 13 8 - 18 [facility] BUN/Creatinine Ratio 34(H) 7 - 23 [facility] Osmolality Calculated 298 270 - 300 mOsm/kg [facility] eGFR >60 >60 mL/min/1.7 3 m2 [facility] Blood specimen (specimen) BLOOD SPECIMEN / Unknown 10/14/2016 3:45 AM CDT 10/14/2016 4:07 AM CDT Jad Reece MD LAB - CHEMISTRY MAGDALENA DOBBS [facility] [address] [place] [address] * PHOSPHORUS BLOOD (10/14/2016 3:45 AM CDT) Only the most recent of8 resultswithin the time period is included. Phosphorus 2.8 2.3 - 4.7 mg/dL [facility] Blood specimen (specimen) BLOOD SPECIMEN / Unknown 10/14/2016 3:45 AM CDT 10/14/2016 4:07 AM CDT Jad Reece MD LAB - CHEMISTRY [place] DOBBS [address] [phone] * MRI ORBITS OR FACE WWO CONTRAST (10/10/2016 9:20 PM CDT) Only the most recent of2 resultswithin the time period is included. Anatomical Region Laterality Modality Head Other Impressions 10/11/2016 8:47 AM CDT IMPRESSION: 1. Mixed response to therapy with resolution of active demyelination in some of the plaques and interval development of active demyelination in some plaques as well as new lesions in the posterior fossa. 2. No evidence of optic neuritis. This report was approved ??by Luis Paul M.D. ?? on 10/11/2016 8:15 AM . I, Dr. GINA PANDA M.D. have personally reviewed and interpreted this examination/study. This report was electronically signed by GINA PANDA M.D. ??on 10/11/2016 8:47 AM . Narrative 10/11/2016 8:47 AM CDT EXAMINATION: 1. Magnetic resonance imaging (MRI) of the brain without and with contrast 2. MRI of the orbits without and with contrast HISTORY: Multiple sclerosis TECHNIQUE: MRI of the brain and orbits was performed prior to and following the uneventful administration of 6 ml Gadavist intravenous gadolinium contrast according to a demyelination protocol. FINDINGS: Comparison is made with a study from 09/06/2016 and 11/18/2011 Brain: No evidence of acute or chronic hemorrhage is identified. No evidence of acute cerebral infarction is seen. There is mild cerebral volume loss with associated ex vacuo ventricular dilatation. No mass effect or midline shift is seen. Numerous FLAIR hyperintensities representing demyelinating plaques in the cerebrum are grossly unchanged in size and number. Some of these plaques that previously enhance on the last MRI examination no longer enhance consistent with response to therapy. But there are numerous new enhancing plaques throughout both cerebral hemispheres indicating progression of the disease. Many of these plaques demonstrate corresponding T1 hypointensity indicating of myelin vacuolization. The sella appears normal. There is atrophy of the corpus callosum. There are demyelinating plaques in the cerebellum and brainstem, some of which have improved and some of which are new from prior exam. There is mild paranasal sinus disease. Otherwise, the visualized portions of the mastoids appear normal. Normal flow voids are demonstrated in the carotid arteries and basilar artery. The calvarium and visualized cervical spine appear normal. Orbits: The globes and extraocular muscles appear normal. The lacrimal glands appear normal. The optic nerves are symmetric in size and signal. No abnormal enhancement is identified in either optic nerve. The optic chiasm and suprasellar cistern appear normal. Meckel's cave and the cavernous sinuses appear normal. There is mild paranasal sinus disease. Procedure Note Gina Panda MD - 06/15/2017 EXAMINATION: 1. Magnetic resonance imaging (MRI) of the brain without and withcontrast 2. MRI of the orbits without and with contrast HISTORY: Multiple sclerosis TECHNIQUE: MRI of the brain and orbits was performed prior to andfollowing the uneventful administration of 6 ml Gadavist intravenousgadolinium contrast according to a demyelination protocol. FINDINGS: Comparison is made with a study from 09/06/2016 and 11/18/2011 Brain: No evidence of acute or chronic hemorrhage is identified. No evidence ofacute cerebral infarction is seen. There is mild cerebral volume loss withassociated ex vacuo ventricular dilatation. No mass effect or midlineshift is seen. Numerous FLAIR hyperintensities representing demyelinating plaques in the cerebrum aregrossly unchanged in size and number. Some of these plaques thatpreviously enhance on the last MRI examination no longer enhanceconsistent with response to therapy. But there are numerous new enhancing plaques throughout both cerebral hemispheresindicating progression of the disease. Many of these plaques demonstratecorresponding T1 hypointensity indicating of myelin vacuolization. Thesella appears normal. There is atrophy of the corpus callosum. There are demyelinating plaques in the cerebellum andbrainstem, some of which have improved and some of which are new fromprior exam. There is mild paranasal sinus disease. Otherwise, the visualized portionsof the mastoids appear normal. Normal flow voids are demonstrated in thecarotid arteries and basilar artery. The calvarium and visualized cervicalspine appear normal. Orbits: The globes and extraocular muscles appear normal. The lacrimal glandsappear normal. The optic nerves are symmetric in size and signal. Noabnormal enhancement is identified in either optic nerve. The optic chiasmand suprasellar cistern appear normal. Meckel's cave and the cavernous sinuses appear normal. There is mild paranasal sinus disease. IMPRESSION IMPRESSION: 1. Mixed response to therapy with resolution of active demyelination insome of the plaques and interval development of active demyelination insome plaques as well as new lesions in the posterior fossa. 2. No evidence of optic neuritis. This report was approved by Luis Paul M.D. on 10/11/2016 8:15AM . I, Dr. GINA PANDA M.D. have personally reviewed and interpreted thisexamination/study. This report was electronically signed by GINA PANDA M.D. on 10/11/20168:47 AM . Jad Reece MD MR ORDERABLES * CT HEAD WO CONTRAST (10/10/2016 7:05 PM CDT) Only the most recent of2 resultswithin the time period is included. Anatomical Region Laterality Modality Head Other Impressions 10/11/2016 7:11 AM CDT IMPRESSION: 1. No acute intracranial hemorrhage. This report was electronically signed by GINA PANDA M.D. ??on 10/11/2016 7:11 AM . Narrative 10/11/2016 7:11 AM CDT EXAMINATION: Computed tomography (CT) of the head without contrast HISTORY: Headache, multiple sclerosis TECHNIQUE: CT of the head was performed without contrast according to standard protocol. FINDINGS: Comparison is made with a study from 10 February 2014. No acute intra- or extra-axial fluid collections are identified. There is mild cerebral volume loss with associated ex vacuo ventricular dilatation. The basilar cisterns are patent. No mass effect or midline shift is seen. The hurley-white matter differentiation is normal. There is periventricular subcortical white matter hypoattenuation likely represent sequela of demyelinating disease in this patient with multiple sclerosis. The visualized portions of the orbits, paranasal sinuses, and mastoids appear normal. No acute fracture is identified. Procedure Note Gina Panda MD - 06/15/2017 EXAMINATION: Computed tomography (CT) of the head without contrast HISTORY: Headache, multiple sclerosis TECHNIQUE: CT of the head was performed without contrast according tostandard protocol. FINDINGS: Comparison is made with a study from 10 February 2014. No acute intra- or extra-axial fluid collections are identified. There ismild cerebral volume loss with associated ex vacuo ventricular dilatation.The basilar cisterns are patent. No mass effect or midline shift is seen.The hurley-white matter differentiation is normal. There is periventricular subcortical whitematter hypoattenuation likely represent sequela of demyelinating diseasein this patient with multiple sclerosis. The visualized portions of theorbits, paranasal sinuses, and mastoids appear normal. No acute fracture is identified. IMPRESSION IMPRESSION: 1. No acute intracranial hemorrhage. This report was electronically signed by GINA PANDA M.D. on 10/11/20167:11 AM . Jad Reece MD CT ORDERABLES * HCG URINE QUALITATIVE - POCT (IP) [facility] (10/10/2016 6:53 PM CDT) Only the most recent of3 resultswithin the time period is included. Test Urine negative [facility] Urine specimen (specimen) 10/10/2016 6:53 PM CDT Jad Reece MD LAB - POINT OF CARE ORDERABLES [facility] * CULTURE BLOOD (10/10/2016 4:45 PM CDT) Only the most recent of2 resultswithin the time period is included. Culture Blood No Growth at 5 days [facility] Blood specimen (specimen) (Venous, Peripheral) 10/10/2016 4:45 PM CDT 10/10/2016 4:49 PM CDT Narrative [facility] - 10/15/2016 5:00 PM CDT Draw 15 minutes after Culture 1 from a different site Jad Reece MD LAB - MICROBIOLOGY O RDERABLES Performing Organization Address [facility] Co de Phone Number [address] [phone] * LACTIC ACID BLOOD (10/10/2016 3:43 PM CDT) [facility] Lactic Acid-Stat <0.6 0.5 - 2.0 mmol/L [facility] Blood specimen (specimen) BLOOD SPECIMEN / Unknown 10/10/2016 3:43 PM CDT 10/10/2016 4:01 PM CDT Jad Reece MD LAB - CHEMISTRY ORDE RABLES Performing Organization Address [facility] Co de Phone Number [address] [phone] * GLUCOSE - POINT OF CARE (AMB) [facility] (10/10/2016 3:40 PM CDT) Only the most recent of4 resultswithin the time period is included. Jad Reece MD LAB - POINT OF CARE ORDERABLES Performing Organization Address [facility] Co de Phone Number [facility] RADIOLOGY * (ABNORMAL) CBC W/O DIFFERENTIAL (09/13/2016 4:41 AM CDT) Only the most recent of11 resultswithin the time period is included. Pathologist [facility] WBC 14.5(H) 3.5 - 10.5 10? 3 /uL [facility] RBC 3.89(L) 3.90 - 5.00 10? 6 /uL [facility] Hemoglobin 9.9(L) 12.0 - 15.5 g/dL [facility] Hematocrit 31.7(L) 35.0 - 45.0 % [facility] MCV 81.5 81.0 - 97.0 fL [facility] MCH 25.4(L) 28.0 - 34.0 pg [facility] MCHC 31.2(L) 32.0 - 36.0 g/dL [facility] Platelet Count 361 150 - 400 10? 3 /uL [facility] RDW-SD 43.8 36.0 - 50.0 fL [facility] RDW-CV 14.7 11.2 - 14.8 % [facility] MPV 8.8(L) 9.3 - 12.8 fL [facility] nRBC Absolute 0.00 0 10? 3 /uL [facility] nRBC Auto 0.0 0 /100 WBC [facility] Blood specimen (specimen) BLOOD SPECIMEN / Unknown 09/13/2016 4:41 AM CDT 09/13/2016 5:28 AM CDT Devan Renee MD LAB - HEMATOLOG Y ORDERABLES [address] [phone] * FOLATE (09/09/2016 6:06 AM CDT) Only the most recent of2 resultswithin the time period is included. Folate 9.8 7.0 - 31.4 ng/mL [facility] Blood specimen (specimen) BLOOD SPECIMEN / Unknown 09/09/2016 6:06 AM CDT 09/09/2016 6:10 AM CDT Devan Renee MD LAB - CHEMISTRY ORDERABLES [address] [phone] * VITAMIN B12 (09/09/2016 6:06 AM CDT) Only the most recent of3 resultswithin the time period is included. Vitamin B12 380 213 - 816 pg/mL [facility] Blood specimen (specimen) BLOOD SPECIMEN / Unknown 09/09/2016 6:06 AM CDT 09/09/2016 6:10 AM CDT Devan Renee MD LAB - CHEMISTRY ORDERABLES [address] [phone] * PT-INR [facility] (08/18/2016 5:49 AM CDT) Only the most recent of7 resultswithin the time period is included. PT 13.2 12.1 - 14.8 Seconds [facility] INR 1.0 See Comment [facility] Comment: Suggested therapeutic range for low-intensity coumadin therapy for venous thromboembolism prophylaxis is an INR of 2.0-3.0. ??For high risk patients (Mitral Valve Prosthesis, Atrial Fibrillation, history of TIA/stroke), suggested prophylactic therapeutic range is an INR of 2.5-3.5. Blood specimen (specimen) BLOOD SPECIMEN / Unknown 08/18/2016 5:49 AM CDT 08/18/2016 5:58 AM CDT Narrative [facility] - 08/18/2016 6:17 AM CDT For apheresis procedure Is patient on Heparin, Argatroban or Dabigatran?->N Bere Denton MD LAB - COAGULATION OR DERABLES [address] [phone] * CALCIUM IONIZED WHOLE BLOOD (08/18/2016 5:49 AM CDT) Only the most recent of7 resultswithin the time period is included. Ionized Calcium Whole Blood 1.20 mmol/L [facility] Adjusted Ionized Calcium 1.22 1.19 - 1.34 mmol/L [facility] pH Whole Blood 7.44 7.35 - 7.45 [facility] Blood specimen (specimen) BLOOD SPECIMEN / Unknown 08/18/2016 5:49 AM CDT 08/18/2016 5:58 AM CDT Narrative [facility] - 08/18/2016 6:01 AM CDT For apheresis procedure Bere Denton MD LAB - CHEMISTRY MAGDALENA DOBBS [facility] [address] [place] [address], [facility] [phone] * DRUG ABUSE PANEL 10-20+ETHANOL URINE NO CONFIRM (08/14/2016 3:10 PM CDT) Only the most recent of5 resultswithin the time period is included. Amphetamines Screen Urine Negative Negative: < 1000 ng/mL [facility] Barbiturates Screen Urine Negative Negative: < 200 ng/mL [facility] Benzodiazepine Screen Urine Negative Negative: < 200 ng/mL [facility] Opiates Urine Negative Negative: < 300 ng/mL [facility] Cocaine Metabolites Urine Negative Negative: < 300 ng/mL [facility] Phencyclidine Screen Urine Negative Negative: < 25 ng/ml [facility] Cannabinoids Screen Urine Negative Negative: <50 ng/mL [facility] Methadone Screen Urine Negative Negative: < 300 ng/mL [facility] Urine specimen (specimen) URINE / Unknown 08/14/2016 3:10 PM CDT 08/14/2016 5:12 PM CDT Narrative [facility] - 08/14/2016 5:30 PM CDT The Urine Toxicology Screening Panel does not screen for Propoxyphene, Meprobamate, Carisoprodol, Trazodone, iyed-awp-pqooklu medications and/or volatiles (Acetone, Isopropanol, Methanol or Ethylene Glycol). Ethanol, Salicylate, Acetaminophen, Tricyclic Antidepressants and several therapeutic drugs may be individually assayed in serum or plasma specimen. Toxicology testing by the [facility] is an aid to medical diagnosis and treatment of patients. No documented chain of custody was maintained. Results are intended to be used for clinical purposes only. ? Bere Denton MD LAB - URINE CHEMISTR Y ORDERABLES Performing Organization Address [facility] de Phone Number [address] [phone] * (ABNORMAL) PTT [facility] (08/14/2016 4:33 AM CDT) Only the most recent of2 resultswithin the time period is included. APTT 45.1(H) 23.0 - 38.4 Seconds [facility] Comment:Suggested therapeuti c range for full dose I.V. heparin therapy for venous thromboembolism is 66.0-91.0 seconds. Blood specimen (specimen) BLOOD SPECIMEN / Unknown 08/14/2016 4:33 AM CDT 08/14/2016 4:43 AM CDT Narrative [facility] - 08/14/2016 5:23 AM CDT For apheresis procedure Is patient on Heparin, Argatroban or Dabigatran?->Y Bere Denton MD LAB - COAGULATION OR DERABLES Performing Organization Address [facility] de Phone Number [address] [phone] * IR PICC LINE INSERT (08/10/2016 3:05 PM CDT) Only the most recent of2 resultswithin the time period is included. Anatomical Region Laterality Modality Other Impressions 08/10/2016 3:49 PM CDT Impression: Placement of a ??12 Swiss, 19cm tip to cuff, triple lumen, TriFusion tunneled pheresis catheter, via right internal jugular vein, under fluoroscopic guidance, as described above. I Dr. Rodas performed/was present throughout the procedure and provided the moderate sedation service. Please see nursing flow chart for more details. . This report was electronically signed by NIKOLAY GUZMAN M.D. ??on 08/10/2016 3:49 PM . 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 Doppler today showed occluded TIPS. MELD: 13, ECO-3. Patient is not a candidate for liver transplant due to poor function status.?Patient is not a candidate for anticoagulation due to decreased liver function. Patient also had IVC filter placed in 2012 for DVT witch is resolved now. The IVC filter struts appear to extend outside the IVC wall. Indication : Pheresis, MS Operators: 1. ??Dr. Rodas, Attending Physician Anesthesia: 1. ??Local anesthesia - 5 ml of 1 % lidocaine 2. ??Intravenous Conscious Sedation (Versed 1 mg and Fentanyl 50 mcg). Procedure: 1. ??Ultrasound-guided access of right internal jugular vein. 2. ??Placement of a 12 Swiss triple lumen Trifusion tunneled catheter, via right internal jugular vein under fluoroscopic guidance. Start time:1434 ? Sedation Initiated Time: 1434 ? End Time: 1450 Fluoroscopic time: 0.4 minute ?Contrast: 0 mL Procedure in detail: The procedure, risks and possible complications were explained to the patient and patient's POA (mother) in detail, and an informed consent was obtained. The patient was placed supine on the angiographic table. The patient was given The right ??neck region region was prepped and draped in the usual sterile manner. A home mortgage disclosure act specialist film of chest was obtained, which was unremarkable. The patient received Intravenous Versed and Fentanyl for conscious sedation. A qualified radiology nurse monitored the patient?s vital signs throughout the procedure. Limited ultrasound of right ??internal jugular vein demonstrated a patent and compressible vein. A hurley scale image was documented. After instillation with 1 % local lidocaine, a small incision was made in the right lower neck. ??Under real time ultrasound guidance, using a micropuncture needle, the right internal jugular Vein was accessed. ??The needle entry was documented. Following a series of exchanges, a 0.035 wire was advanced through the right atrium into the IVC.? Following administration of 1 % local lidocaine anesthesia, a skin incision was made over the right upper chest . The 12Fr, triple lumen, TriFusion catheter was then tunneled from the incision to the venotomy site, after anesthetizing the tunnel with lidocaine. After series of dilatation, a peel-away sheath and dilator combination was advanced over the guidewire, under fluoroscopic guidance. The guidewire and the dilator were removed and the catheter was advanced through the peel-away sheath with the patient suspending respiration. The peel-away was then removed. The ports were accessed, aspirated and flushed easily. Appropriate amount of heparin and was placed in each port as per the protocol. The catheter was secured. A sterile dressing was applied. A final film was obtained, which revealed the tunneled catheter, via right ??internal jugular, with its tip in the right atrium without any kink along the course of the catheter. The patient tolerated the procedure well was transferred in stable condition. There were no immediate complications associated with the procedure. The patient tolerated the procedure and sedation ??well. The patient was transferred to [facility] [facility] in stable condition. 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 Doppler today showedoccluded TIPS. MELD: 13, ECO-3. Patient is not a candidate for livertransplant due to poor function status.?Patient is not a candidate for anticoagulation due to decreasedliver function. Patient also had IVC filter placed in 2012 for DVT witchis resolved now. The IVC filter struts appear to extend outside the IVCwall. Indication : Pheresis, MS Operators: 1. Dr. Rodas, Attending Physician Anesthesia: 1. Local anesthesia - 5 ml of 1 % lidocaine 2. Intravenous Conscious Sedation (Versed 1 mg and Fentanyl 50 mcg). Procedure: 1. Ultrasound-guided access of right internal jugular vein. 2. Placement of a 12 Swiss triple lumen Trifusion tunneled catheter, viaright internal jugular vein under fluoroscopic guidance. Start time:1434 Sedation Initiated Time: 1434 End Time: 1450 Fluoroscopic time: 0.4 minute Contrast: 0 mL Procedure in detail: The procedure, risks and possible complications wereexplained to the patient and patient's POA (mother) in detail, and aninformed consent was obtained. The patient was placed supine on theangiographic table. The patient was given The right neck region region was prepped and draped in the usual sterilemanner. A home mortgage disclosure act specialist film of chest was obtained, which was unremarkable. The patient received Intravenous Versed and Fentanyl for conscioussedation. A qualified radiology nurse monitored the patient?s vital signsthroughout the procedure. Limited ultrasound of right internal jugular vein demonstrated a patentand compressible vein. A hurley scale image was documented. Afterinstillation with 1 % local lidocaine, a small incision was made in theright lower neck. Under real time ultrasound guidance, using a micropuncture needle, the right internal jugular Veinwas accessed. The needle entry was documented. Following a series ofexchanges, a 0.035 wire was advanced through the right atrium into theIVC.? Following administration of 1 % local lidocaine anesthesia, a skinincision was made over the right upper chest . The 12Fr, triple lumen,TriFusion catheter was then tunneled from the incision to the venotomysite, after anesthetizing the tunnel with lidocaine. After series of dilatation, a peel-away sheath and dilator combination wasadvanced over the guidewire, under fluoroscopic guidance. The guidewireand the dilator were removed and the catheter was advanced through thepeel-away sheath with the patient suspending respiration. The peel-away was then removed. The ports wereaccessed, aspirated and flushed easily. Appropriate amount of heparin andwas placed in each port as per the protocol. The catheter was secured. Asterile dressing was applied. A final film was obtained, which revealed the tunneled catheter, via rightinternal jugular, with its tip in the right atrium without any kink alongthe course of the catheter. The patient tolerated the procedure well wastransferred in stable condition. There were no immediate complications associated with the procedure. Thepatient tolerated the procedure and sedation well. The patient wastransferred to holding area in stable condition. IMPRESSION Impression: Placement of a 12 Swiss, 19cm tip to cuff, triple lumen,TriFusion tunneled pheresis catheter, via right internal jugular vein,under fluoroscopic guidance, as described above. I Dr. Rodas performed/was present throughout the procedure and providedthe moderate sedation service. Please see nursing flow chart for moredetails. . This report was electronically signed by NIKOLAY GUZMAN M.D. on08/10/2016 3:49 PM . Bere Denton MD IR ORDERABLES * IR CENTRAL LINE INSERT TUNNEL (08/10/2016 3:05 PM CDT) Only the most recent of2 resultswithin the time period is included. Anatomical Region Laterality Modality Other Impressions 08/10/2016 3:49 PM CDT Impression: Placement of a ??12 Swiss, 19cm tip to cuff, triple lumen, TriFusion tunneled pheresis catheter, via right internal jugular vein, under fluoroscopic guidance, as described above. I Dr. Rodas performed/was present throughout the procedure and provided the moderate sedation service. Please see nursing flow chart for more details. . This report was electronically signed by NIKOLAY GUZMAN M.D. ??on 08/10/2016 3:49 PM . 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 Doppler today showed occluded TIPS. MELD: 13, ECO-3. Patient is not a candidate for liver transplant due to poor function status.?Patient is not a candidate for anticoagulation due to decreased liver function. Patient also had IVC filter placed in 2012 for DVT witch is resolved now. The IVC filter struts appear to extend outside the IVC wall. Indication : Pheresis, MS Operators: 1. ??Dr. Rodas, Attending Physician Anesthesia: 1. ??Local anesthesia - 5 ml of 1 % lidocaine 2. ??Intravenous Conscious Sedation (Versed 1 mg and Fentanyl 50 mcg). Procedure: 1. ??Ultrasound-guided access of right internal jugular vein. 2. ??Placement of a 12 Swiss triple lumen Trifusion tunneled catheter, via right internal jugular vein under fluoroscopic guidance. Start time:1434 ? Sedation Initiated Time: 1434 ? End Time: 1450 Fluoroscopic time: 0.4 minute ?Contrast: 0 mL Procedure in detail: The procedure, risks and possible complications were explained to the patient and patient's POA (mother) in detail, and an informed consent was obtained. The patient was placed supine on the angiographic table. The patient was given The right ??neck region region was prepped and draped in the usual sterile manner. A home mortgage disclosure act specialist film of chest was obtained, which was unremarkable. The patient received Intravenous Versed and Fentanyl for conscious sedation. A qualified radiology nurse monitored the patient?s vital signs throughout the procedure. Limited ultrasound of right ??internal jugular vein demonstrated a patent and compressible vein. A hurley scale image was documented. After instillation with 1 % local lidocaine, a small incision was made in the right lower neck. ??Under real time ultrasound guidance, using a micropuncture needle, the right internal jugular Vein was accessed. ??The needle entry was documented. Following a series of exchanges, a 0.035 wire was advanced through the right atrium into the IVC.? Following administration of 1 % local lidocaine anesthesia, a skin incision was made over the right upper chest . The 12Fr, triple lumen, TriFusion catheter was then tunneled from the incision to the venotomy site, after anesthetizing the tunnel with lidocaine. After series of dilatation, a peel-away sheath and dilator combination was advanced over the guidewire, under fluoroscopic guidance. The guidewire and the dilator were removed and the catheter was advanced through the peel-away sheath with the patient suspending respiration. The peel-away was then removed. The ports were accessed, aspirated and flushed easily. Appropriate amount of heparin and was placed in each port as per the protocol. The catheter was secured. A sterile dressing was applied. A final film was obtained, which revealed the tunneled catheter, via right ??internal jugular, with its tip in the right atrium without any kink along the course of the catheter. The patient tolerated the procedure well was transferred in stable condition. There were no immediate complications associated with the procedure. The patient tolerated the procedure and sedation ??well. The patient was transferred to holding area in stable condition. 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 Doppler today showedoccluded TIPS. MELD: 13, ECO-3. Patient is not a candidate for livertransplant due to poor function status.?Patient is not a candidate for anticoagulation due to decreasedliver function. Patient also had IVC filter placed in 2012 for DVT witchis resolved now. The IVC filter struts appear to extend outside the IVCwall. Indication : Pheresis, MS Operators: 1. Dr. Rodas, Attending Physician Anesthesia: 1. Local anesthesia - 5 ml of 1 % lidocaine 2. Intravenous Conscious Sedation (Versed 1 mg and Fentanyl 50 mcg). Procedure: 1. Ultrasound-guided access of right internal jugular vein. 2. Placement of a 12 Swiss triple lumen Trifusion tunneled catheter, viaright internal jugular vein under fluoroscopic guidance. Start time:1434 Sedation Initiated Time: 1434 End Time: 1450 Fluoroscopic time: 0.4 minute Contrast: 0 mL Procedure in detail: The procedure, risks and possible complications wereexplained to the patient and patient's POA (mother) in detail, and aninformed consent was obtained. The patient was placed supine on theangiographic table. The patient was given The right neck region region was prepped and draped in the usual sterilemanner. A home mortgage disclosure act specialist film of chest was obtained, which was unremarkable. The patient received Intravenous Versed and Fentanyl for conscioussedation. A qualified radiology nurse monitored the patient?s vital signsthroughout the procedure. Limited ultrasound of right internal jugular vein demonstrated a patentand compressible vein. A hurley scale image was documented. Afterinstillation with 1 % local lidocaine, a small incision was made in theright lower neck. Under real time ultrasound guidance, using a micropuncture needle, the right internal jugular Veinwas accessed. The needle entry was documented. Following a series ofexchanges, a 0.035 wire was advanced through the right atrium into theIVC.? Following administration of 1 % local lidocaine anesthesia, a skinincision was made over the right upper chest . The 12Fr, triple lumen,TriFusion catheter was then tunneled from the incision to the venotomysite, after anesthetizing the tunnel with lidocaine. After series of dilatation, a peel-away sheath and dilator combination wasadvanced over the guidewire, under fluoroscopic guidance. The guidewireand the dilator were removed and the catheter was advanced through thepeel-away sheath with the patient suspending respiration. The peel-away was then removed. The ports wereaccessed, aspirated and flushed easily. Appropriate amount of heparin andwas placed in each port as per the protocol. The catheter was secured. Asterile dressing was applied. A final film was obtained, which revealed the tunneled catheter, via rightinternal jugular, with its tip in the right atrium without any kink alongthe course of the catheter. The patient tolerated the procedure well wastransferred in stable condition. There were no immediate complications associated with the procedure. Thepatient tolerated the procedure and sedation well. [facility]. IMPRESSION Impression: Placement of a 12 Swiss, 19cm tip to cuff, triple lumen,TriFusion tunneled pheresis catheter, via right internal jugular vein,under fluoroscopic guidance, as described above. I Dr. Rodas performed/was present throughout the procedure and providedthe moderate sedation service. Please see nursing flow chart for moredetails. . This report was electronically signed by NIKOLAY GUZMAN M.D. on08/10/2016 3:49 PM . Bere Denton MD IR ORDERABLES * IR US GUIDE VASCULAR ACCESS (08/10/2016 3:05 PM CDT) Only the most recent of2 resultswithin the time period is included. Anatomical Region Laterality Modality Other Impressions 08/10/2016 3:49 PM CDT Impression: Placement of a ??12 Swiss, 19cm tip to cuff, triple lumen, TriFusion tunneled pheresis catheter, via right internal jugular vein, under fluoroscopic guidance, as described above. I Dr. Rodas performed/was present throughout the procedure and provided the moderate sedation service. Please see nursing flow chart for more details. . This report was electronically signed by NIKOLAY GUZMAN M.D. ??on 08/10/2016 3:49 PM . 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 Doppler today showed occluded TIPS. MELD: 13, ECO-3. Patient is not a candidate for liver transplant due to poor function status.?Patient is not a candidate for anticoagulation due to decreased liver function. Patient also had IVC filter placed in 2012 for DVT witch is resolved now. The IVC filter struts appear to extend outside the IVC wall. Indication : Pheresis, MS Operators: 1. ??Dr. Rodas, Attending Physician Anesthesia: 1. ??Local anesthesia - 5 ml of 1 % lidocaine 2. ??Intravenous Conscious Sedation (Versed 1 mg and Fentanyl 50 mcg). Procedure: 1. ??Ultrasound-guided access of right internal jugular vein. 2. ??Placement of a 12 Swiss triple lumen Trifusion tunneled catheter, via right internal jugular vein under fluoroscopic guidance. Start time:1434 ? Sedation Initiated Time: 1434 ? End Time: 1450 Fluoroscopic time: 0.4 minute ?Contrast: 0 mL Procedure in detail: The procedure, risks and possible complications were explained to the patient and patient's POA (mother) in detail, and an informed consent was obtained. The patient was placed supine on the angiographic table. The patient was given The right ??neck region region was prepped and draped in the usual sterile manner. A home mortgage disclosure act specialist film of chest was obtained, which was unremarkable. The patient received Intravenous Versed and Fentanyl for conscious sedation. A qualified radiology nurse monitored the patient?s vital signs throughout the procedure. Limited ultrasound of right ??internal jugular vein demonstrated a patent and compressible vein. A hurley scale image was documented. After instillation with 1 % local lidocaine, a small incision was made in the right lower neck. ??Under real time ultrasound guidance, using a micropuncture needle, the right internal jugular Vein was accessed. ??The needle entry was documented. Following a series of exchanges, a 0.035 wire was advanced through the right atrium into the IVC.? Following administration of 1 % local lidocaine anesthesia, a skin incision was made over the right upper chest . The 12Fr, triple lumen, TriFusion catheter was then tunneled from the incision to the venotomy site, after anesthetizing the tunnel with lidocaine. After series of dilatation, a peel-away sheath and dilator combination was advanced over the guidewire, under fluoroscopic guidance. The guidewire and the dilator were removed and the catheter was advanced through the peel-away sheath with the patient suspending respiration. The peel-away was then removed. The ports were accessed, aspirated and flushed easily. Appropriate amount of heparin and was placed in each port as per the protocol. The catheter was secured. A sterile dressing was applied. A final film was obtained, which revealed the tunneled catheter, via right ??internal jugular, with its tip in the right atrium without any kink along the course of the catheter. The patient tolerated the procedure well was transferred in stable condition. There were no immediate complications associated with the procedure. The patient tolerated the procedure and sedation ??well. The patient was transferred to [facility] in stable condition. 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 Doppler today showedoccluded TIPS. MELD: 13, ECO-3. Patient is not a candidate for livertransplant due to poor function status.?Patient is not a candidate for anticoagulation due to decreasedliver function. Patient also had IVC filter placed in 2012 for DVT witchis resolved now. The IVC filter struts appear to extend outside the IVCwall. Indication : Pheresis, MS Operators: 1. Dr. Rodas, Attending Physician Anesthesia: 1. Local anesthesia - 5 ml of 1 % lidocaine 2. Intravenous Conscious Sedation (Versed 1 mg and Fentanyl 50 mcg). Procedure: 1. Ultrasound-guided access of right internal jugular vein. 2. Placement of a 12 Swiss triple lumen Trifusion tunneled catheter, viaright internal jugular vein under fluoroscopic guidance. Start time:1434 Sedation Initiated Time: 1434 End Time: 1450 Fluoroscopic time: 0.4 minute Contrast: 0 mL Procedure in detail: The procedure, risks and possible complications wereexplained to the patient and patient's POA (mother) in detail, and aninformed consent was obtained. The patient was placed supine on theangiographic table. The patient was given The right neck region region was prepped and draped in the usual sterilemanner. A home mortgage disclosure act specialist film of chest was obtained, which was unremarkable. The patient received Intravenous Versed and Fentanyl for conscioussedation. A qualified radiology nurse monitored the patient?s vital signsthroughout the procedure. Limited ultrasound of right internal jugular vein demonstrated a patentand compressible vein. A hurley scale image was documented. Afterinstillation with 1 % local lidocaine, a small incision was made in theright lower neck. Under real time ultrasound guidance, using a micropuncture needle, the right internal jugular Veinwas accessed. The needle entry was documented. Following a series ofexchanges, a 0.035 wire was advanced through the right atrium into theIVC.? Following administration of 1 % local lidocaine anesthesia, a skinincision was made over the right upper chest . The 12Fr, triple lumen,TriFusion catheter was then tunneled from the incision to the venotomysite, after anesthetizing the tunnel with lidocaine. After series of dilatation, a peel-away sheath and dilator combination wasadvanced over the guidewire, under fluoroscopic guidance. The guidewireand the dilator were removed and the catheter was advanced through thepeel-away sheath with the patient suspending respiration. The peel-away was then removed. The ports wereaccessed, aspirated and flushed easily. Appropriate amount of heparin andwas placed in each port as per the protocol. The catheter was secured. Asterile dressing was applied. A final film was obtained, which revealed the tunneled catheter, via rightinternal jugular, with its tip in the right atrium without any kink alongthe course of the catheter. The patient tolerated the procedure well wastransferred in stable condition. There were no immediate complications associated with the procedure. Thepatient tolerated the procedure and sedation well. [facility]. IMPRESSION Impression: Placement of a 12 Swiss, 19cm tip to cuff, triple lumen,TriFusion tunneled pheresis catheter, via right internal jugular vein,under fluoroscopic guidance, as described above. I Dr. Rodas performed/was present throughout the procedure and providedthe moderate sedation service. Please see nursing flow chart for moredetails. . This report was electronically signed by NIKOLAY GUZMAN M.D. on08/10/2016 3:49 PM . Bere Denton MD IR ORDERABLES * (ABNORMAL) URINALYSIS W/MICROSCOPIC NO CULTURE (07/14/2016 2:36 AM CDT) Only the most recent of2 resultswithin the time period is included. Color UA Yellow Straw, Yellow, Colorless, Light Yellow [facility] Clarity UA Cloudy(A) Clear [facility] Specific [place] UA 1.019 1.001 - 1.030 [facility] pH UA 6.5 5.0 - 8.0 [facility] Protein UA 70(A) <=20 mg/dL [facility] Glucose UA Negative Negative mg/dL [facility] Ketone UA Negative Negative mg/dL [facility] Bilirubin UA Negative Negative mg/dL [facility] Blood UA Negative Negative [facility] Nitrite UA Negative Negative [facility] Leukocyte Esterase Large(A) Negative [facility] Urobilinogen UA <2.0 <2.0 mg/dL [facility] RBC UA 43(H) 0 - 8 /HPF [facility] WBC UA 75(H) 0 - 2 /HPF [facility] Bacteria UA Moderate(A) Rare, Occasional, None /HPF [facility] Squamous Epithelial Cells UA 35(H) 0 - 1 /HPF [facility] Mucus UA Many(A) None /LPF [facility] Amorphous Crystals Many(A) Rare, Occasional, Few, Moderate, None /HPF [facility] Urine specimen (specimen) URINE SPECIMEN OBTAINED BY CLEAN CATCH PROCEDURE / Unknown 07/14/2016 2:36 AM CDT 07/14/2016 2:37 AM CDT Narrative [facility] - 07/14/2016 2:45 AM CDT Straight cath if needed Devan Renee MD LAB - URINALYSI S ORDERABLES [address] [phone] * HCG URINE QUALITATIVE (07/13/2016 12:25 AM CDT) Only the most recent of3 resultswithin the time period is included. Test Urine Negative Negative [facility] Urine specimen (specimen) 07/13/2016 12:25 AM CDT 07/13/2016 12:32 AM CDT Devan Renee MD LAB - URINALYSI S ORDERABLES Performing Organization Address City/[facility]/ZIP Co de Phone Number [facility] [address] [place] [address] * (ABNORMAL) HEPATITIS B SURFACE ANTIBODY (07/12/2016 4:09 AM CDT) Hepatitis B Virus Surface Antibody Reactive( A) Non-react pam [facility] Comment: > 12 mIU/mL Hepatitis B surface Antibody (HBsAb). Reactive for HBsAb - individual is considered immune to Hepatitis B Virus infection. Hepatitis B Surface Antibody Quantitative 35.1(H) <8.0 mIU/mL [facility] Comment: Hepatitis B Surface Antibody Numeric Result Interpretation: ? Nonreactive: ?<8.0 mIU/mL ? Indeterminate: ??8.0 - 12.0 mIU/mL ? Reactive: ?>12.0 mIU/mL ? Blood specimen (specimen) BLOOD SPECIMEN / Unknown 07/12/2016 4:09 AM CDT 07/12/2016 4:17 AM CDT Crystal Grant MD LAB - CHEMISTRY [facility] [facility] [address] [phone] * HEPATITIS B SURFACE ANTIGEN W RFLX CONFIRMATION (07/12/2016 4:09 AM CDT) Hepatitis B Virus Surface Antigen Non-reacti ve Non-reacti ve [facility] Blood specimen (specimen) BLOOD SPECIMEN / Unknown 07/12/2016 4:09 AM CDT 07/12/2016 4:17 AM CDT Crystal Grant MD LAB - CHEMISTRY [place] [facility] [address] [phone] * HEPATITIS C ANTIBODY (07/12/2016 4:09 AM CDT) Only the most recent of2 resultswithin the time period is included. [facility] Hepatitis C Antibody Non-react pam Non-reac tive [facility] Comment: Hepatitis C Antibody screen indicates no serologic evidence of past or current infection with Hepatitis C Virus. Patients with unexplained liver disease who are immunocompromised or suspected of having acute Hepatitis C infection may benefit from Nucleic Acid Test (TRUDI) for Hepatitis C Viral RNA to confirm Hepatitis C status. Blood specimen (specimen) BLOOD SPECIMEN / Unknown 07/12/2016 4:09 AM CDT 07/12/2016 4:17 AM CDT Crystal Grant MD LAB - CHEMISTRY [facility] [facility] Performing Organization Address [facility]/ZIP Co de Phone Number [address] [phone] * (ABNORMAL) TSH (07/11/2016 5:55 PM CDT) Only the most recent of4 resultswithin the time period is included. [facility] TSH 0.281(L) 0.350 - 4.940 uIU/mL [facility] Blood specimen (specimen) BLOOD SPECIMEN / Unknown 07/11/2016 5:55 PM CDT 07/11/2016 5:58 PM CDT Crystal Grant MD LAB - CHEMISTRY [place] [facility] [address] [phone] * T4 FREE (07/11/2016 5:55 PM CDT) [facility] T4 Free 1.1 0.7 - 1.5 ng/dL [facility] Blood specimen (specimen) BLOOD SPECIMEN / Unknown 07/11/2016 5:55 PM CDT 07/11/2016 5:58 PM CDT Crystal Grant MD LAB - CHEMISTRY [place] [facility] [phone] * (ABNORMAL) STRATIFY JCV AB RFLX TO INHIBITION ASSAY (06/14/2016 11:34 AM CDT) Only the most recent of15 resultswithin the time period is included. [facility] Index Value 0.97(H) [facility] SUE Polyoma Virus Antibody POSITIVE( A) [facility] ([facility]) Comment: Index interpretive criteria: <0.20 negative ? 0.20-0.40 indeterminate ? >0.40 positive INTERPRETATION ? Negative: Antibodies to JCV not detected. ? Indeterminate: Low level reactivity detected, see ?Inhibition Assay result to follow ?for the final antibody result. ? Positive: Antibodies to SUE virus (JCV) detected ? indicating the patient has been exposed ? to JCV at an undetermined time. The STRATIFY JCV Antibody Test is an enzyme-linked immunosorbent assay (INDIRA) designed to detect JCV antibodies to help identify individuals who have been exposed to the virus. Samples with low level reactivity in the detection assay are retested in a confirmation (inhibition) assay to confirm presence or absence of JCV-specific antibodies. Test Performed at: [facility] [employer] [address] [place] [address] ??[phone] HIMANSHU BLACKBURN MD 06/14/2016 11:3 4 AM CDT 06/14/2016 11:35 AM CDT Devan Renee MD LAB - SEROLOGY ORDERABLES [facility] ([facility]) * LAB MISC TEST (04/21/2016 9:45 AM GUEST RELATIONS EXECUTIVE) Only the most recent of8 resultswithin the time period is included. Reference Lab Results SEE SCANNED REPORT [facility] REF LAB NON INTERF Other (qualifier value) 04/21/2016 9:45 AM GUEST RELATIONS EXECUTIVE 04/21/2016 10:02 AM GUEST RELATIONS EXECUTIVE Narrative [facility] REF LAB NON INTERF - 05/26/2016 10:01 AM GUEST RELATIONS EXECUTIVE Test Name:->JCV VIRUS W/INDEX RFLX TO INHIB FROZEN EDTA PLASMA Reference Lab Info:->[facility] ??TO ??FOCUS FROZEN EDTA PLASMA Harjit Mendez MD LAB SEND OUT Performing Organization Address [facility] Co de Phone Number [facility] REF LAB NON INTERF * PAP SMEAR LB HPV HR ( REF LAB) (01/31/2016 1:54 PM GUEST RELATIONS EXECUTIVE) Diagnosis Comment 02/04/2016 6:10 PM GUEST RELATIONS EXECUTIVE [facility] ([facility]) Comment: NEGATIVE FOR INTRAEPITHELIAL LESION AND MALIGNANCY. REACTIVE CELLULAR CHANGES AND/OR REPAIR ARE PRESENT. Specimen Adequacy Comment 016 6:10 PM GUEST RELATIONS EXECUTIVE [facility] ([facility]) Comment: Satisfactory for evaluation. ??Endocervical and/or squamous metaplastic cells (endocervical component) are present. Performed by Comment 02/04/2016 6:10 PM GUEST RELATIONS EXECUTIVE [facility] ([facility]) Comment:Floridalma Peterson ytotechnologist (ASCP) Electronically Signed by Comment 02/04/2016 6:10 PM GUEST RELATIONS EXECUTIVE [facility] ([facility]) Comment:Brielle Carmichael MD, P athologist Comment . 02/04/2016 6:10 PM GUEST RELATIONS EXECUTIVE [facility] ([facility]) Note Comment 02/04/2016 6:10 PM GUEST RELATIONS EXECUTIVE [facility] ([facility]) Comment: The Pap smear is a screening test designed to aid in the detection of premalignant and malignant conditions of the uterine cervix. ??It is not a diagnostic procedure and should not be used as the sole means of detecting cervical cancer. ??Both false-positive and false-negative reports do occur. Human papillomavirus High Risk Negative Negative 02/04/2016 6:10 PM GUEST RELATIONS EXECUTIVE [facility] ([facility]) Comment: This high-risk HPV test detects thirteen high-risk types (16/18/31/33/35/39/45/51/52/56/58/59/68) without differentiation. Pathology/Cytolo gy MICROSCOPIC CYTOLOGIC EXAMINATION OF SMEAR OF SPECIMEN FROM FEMALE GENITAL TRACT PREPARED USING PAPANICOLAOU TECHNIQUE / Unknown Collection / Unknown 01/31/2016 1:54 PM GUEST RELATIONS EXECUTIVE 01/31/2016 2:05 PM GUEST RELATIONS EXECUTIVE Narrative [facility] ([facility]) - 02/04/2016 6:10 PM GUEST RELATIONS EXECUTIVE Performed at: ??01 - [facility] [address] ??[id number] Impact Hammer Operator: Tamar Onofre MD, Phone: ??[phone] Performed at: ??02 - [facility] [address] ??[id number] Impact Hammer Operator: Tamar Onofre MD, Phone: ??[phone] Specimen Comment: Source.............Endocervix Specimen Comment: No. of containers..01 CYTYC Thin Prep Vial Osmar Hudson MD LAB - PATHOLOGY/CYTO LOGY ORDERABLES [facility] ([facility]) [address] [place] [address] * RPR (01/31/2016 1:54 PM GUEST RELATIONS EXECUTIVE) Pathologist [facility] RPR Non Reactive Non Reactive 02/01/2016 9:23 AM GUEST RELATIONS EXECUTIVE [facility] Blood BLOOD SPECIMEN / Unknown Venipuncture / Unknown 01/31/2016 1:54 PM GUEST RELATIONS EXECUTIVE 01/31/2016 2:07 PM GUEST RELATIONS EXECUTIVE Osmar Hudson MD LAB - CHEMISTRY MAGDALENA DOBBS [facility] [address] [place] [address] * CHLAMYDIA + GC AMPLIFIED PROBE (01/31/2016 1:54 PM GUEST RELATIONS EXECUTIVE) Pathologist [facility] Chlamydia Amplified Probe Negative Negative 02/01/2016 11:00 AM GUEST RELATIONS EXECUTIVE [facility] GC Amplified Probe Negative Negative 02/01/2016 11:00 AM GUEST RELATIONS EXECUTIVE [facility] Microbiology ENTIRE ENDOCERVIX / Unknown Collection / Unknown 01/31/2016 1:54 PM GUEST RELATIONS EXECUTIVE 01/31/2016 2:05 PM GUEST RELATIONS EXECUTIVE Narrative [facility] - 02/01/2016 11:00 AM GUEST RELATIONS EXECUTIVE Results based on detection/no detection of ribosomal RNA by amplified method. Osmar Hudson MD LAB - MICROBIOLOGY O RDERABLES [facility] [address] [place], [place] [address], [facility] [phone] * STRATIFY JCV AB INHIBITION ASSAY (01/13/2016 2:23 PM CDT) Only the most recent of9 resultswithin the time period is included. Pathologist [facility] SUE Virus Antibody by Inhibition FINAL RSLT: NEGATIVE [facility] ([facility]) Comment: INTERPRETATION Positive: Antibodies to SUE virus (JCV) detected ?indicating the patient has been exposed ?to JCV at an undetermined time Negative: Antibodies to JCV not detected Test Performed at: [facility] [address] [place] [address] ??[phone] HIMANSHU BLACKBURN MD 01/13/2016 2:23 PM CDT 01/13/2016 2:23 PM CDT Historical Provider LAB - SEROLOGY OR DERABLES Performing Organization Address [facility]/ZIP Co de Phone Number [facility] ([facility]) * XR CHEST 2VW (05/02/2015 7:29 PM GUEST RELATIONS EXECUTIVE) Anatomical Region Laterality Modality Chest Other Impressions 05/03/2015 9:53 AM GUEST RELATIONS EXECUTIVE IMPRESSION: No acute pulmonary process. Dictated by Tony Lu M.D. (Spinner Operator). This report was approved ??by Tony Lu M.D. ?? on 05/03/2015 7:[address] REENA Ahuja MD have personally reviewed and interpreted this examination/study. This report was electronically signed by Dr. REENA SUAREZ MD ??on 05/03/2015 9:53 AM . Narrative 05/03/2015 9:53 AM GUEST RELATIONS EXECUTIVE EXAMINATION: XR CHEST PA AND LATERAL DATE: 05/02/2015 7:29 PM HISTORY: Chest pain. COMPARISON: Comparison is made with a study from 03/01/2011. FINDINGS: There is no focal consolidation, pleural effusion, or pneumothorax. The cardiomediastinal silhouette is normal. The visible bony thorax is intact. Procedure Note Reena Suarez MD - 06/16/2017 EXAMINATION: XR CHEST PA AND LATERAL DATE: 05/02/2015 7:29 PM HISTORY: Chest pain. COMPARISON: Comparison is made with a study from 03/01/2011. FINDINGS: There is no focal consolidation, pleural effusion, or pneumothorax. Thecardiomediastinal silhouette is normal. The visible bony thorax isintact. IMPRESSION IMPRESSION: No acute pulmonary process. Dictated by Tony Lu M.D. (Spinner Operator). This report was approved by Tony Lu M.D. on 05/03/2015 7:[address] REENA Ahuja MD have personally reviewed and interpreted thisexamination/study. This report was electronically signed by Dr. REENA SUAREZ MD on05/03/2015 9:53 AM . Jad Reece MD DIAGNOSTIC IMAGING O RDERABLES * VITAMIN D 25-HYDROXY D2+D3 BY TANDEM MASS (02/26/2015 3:16 PM GUEST RELATIONS EXECUTIVE) Only the most recent of3 resultswithin the time period is included. Vitamin D, 25 Hydroxy Total 31 30 - 100 ng/mL [facility] ([facility]) Comment: Vitamin D Status ? 25-OH Vitamin D: Deficiency: ?<20 ng/mL Insufficiency: ? 20 - 29 ng/mL Optimal: ? > or = 30 ng/mL For 25-OH Vitamin D testing on patients on D2-supplementation and patients for whom quantitation of D2 and D3 fractions is required, the QuestAssureD(TM) 25-OH VIT D, (D2,D3), LC/MS/MS is recommended: order code 16969 (patients >2yrs). For more information on this test, go to: http://education.shoply/faq/GFH719 (This link is being provided for informational/educational purposes only.) Test Performed at: [facility] [address] [place], [place] ??[phone] MYKEL ALVARES DO,MPH Blood specimen (specimen) BLOOD SPECIMEN / Unknown 02/26/2015 3:16 PM GUEST RELATIONS EXECUTIVE 02/26/2015 3:17 PM GUEST RELATIONS EXECUTIVE Historical Provider LAB - CHEMISTRY Nii CORONEL Performing Organization Address [facility]/ZIP Co de Phone Number [facility] ([facility]) * HEPATIC FUNCTION PANEL (11/13/2014 9:10 AM CDT) Only the most recent of30 resultswithin the time period is included. Protein Total 7.1 6.0 - 8.3 g/dL [facility] Albumin 4.3 3.4 - 5.0 g/dL [facility] Bilirubin Total 0.4 0.2 - 1.2 mg/dL [facility] Bilirubin Conjugated 0.1 0.0 - 0.5 mg/dL [facility] Bilirubin Unconjugated 0.3 Unconjugated Bilirubin is a calculated value: Reference ranges have not been established. mg/dL [facility] Alkaline Phosphatase 52 40 - 150 Units/L [facility] ALT 21 0 - 55 Units/L [facility] AST 13 5 - 34 Units/L [facility] Albumin/Globulin Ratio 1.5 1.1 - 2.3 [facility] Blood specimen (specimen) BLOOD SPECIMEN / Unknown 11/13/2014 9:10 AM CDT 11/13/2014 10:18 AM CDT Historical Provider LAB - CHEMISTRY Nii CORONEL [address] [phone] * (ABNORMAL) PROLACTIN (02/21/2014 5:23 PM GUEST RELATIONS EXECUTIVE) Prolactin 123.3(H) 4.8 - 23.3 ng/mL [facility] (BE[facility]ER) Blood specimen (specimen) BLOOD SPECIMEN / Unknown 02/21/2014 5:23 PM GUEST RELATIONS EXECUTIVE 02/21/2014 5:30 PM GUEST RELATIONS EXECUTIVE Narrative [facility] ([facility]) - 02/24/2014 6:20 AM GUEST RELATIONS EXECUTIVE Performed at: ?? - [facility] ??[id number] Impact Hammer Operator: Jose Mac PhD, Phone: ??[phone] Itzel Veras MD LAB - CHEMISTRY MAGDALENA DOBBS Performing Organization Address [facility] Co de Phone Number [facility] ([facility]) * (ABNORMAL) SALICYLATE LEVEL BLOOD (02/10/2014 3:17 PM GUEST RELATIONS EXECUTIVE) Salicylate <5(L) 15 - 30 mg/dL [facility] Blood specimen (specimen) BLOOD SPECIMEN / Unknown 02/10/2014 3:17 PM GUEST RELATIONS EXECUTIVE 02/10/2014 3:20 PM GUEST RELATIONS EXECUTIVE Kisha Gregorio MD LAB - CHEMISTRY MAGDALENA DOBBS Performing Organization Address [facility] Co de Phone Number [address] [phone] * (ABNORMAL) ACETAMINOPHEN LEVEL (02/10/2014 3:17 PM GUEST RELATIONS EXECUTIVE) Acetaminophen <3.0(L) 10.0 - 30.0 mcg/mL [facility] Blood specimen (specimen) BLOOD SPECIMEN / Unknown 02/10/2014 3:17 PM GUEST RELATIONS EXECUTIVE 02/10/2014 3:20 PM GUEST RELATIONS EXECUTIVE Kisha Gregorio MD LAB - CHEMISTRY ORDE RABLES [facility] [address] [phone] * SUE VIRUS PCR QUALITATIVE (05/21/2013 12:00 PM GUEST RELATIONS EXECUTIVE) SUE Virus DNA Qualitative PCR Not Detected () [facility] Comment: NOT DETECTED - A negative result does not rule out the presence of PCR inhibitors in the patient specimen or assay specific nucleic acid in concentrations below the level of detection by the assay. INTERPRETIVE INFORMATION: SUE Virus by PCR Test developed and characteristics determined by [facility]. See Compliance Statement B: fivesquids.co.uk/CS *ASSAY PERFORMED BY: [facility] ?[address] ?[place], [place] [address] Source SUE Virus Not Provided () [facility] Comment: Specimen source was not provided. ??Please refer to the [facility] Test Directory for validated specimen source information: http://www.fivesquids.co.uk/Testing-Information/teq-hqpn-uoayrglc y.jsp. ??Interpret results with caution. *ASSAY PERFORMED BY: [facility] ?[address] ?[place], [place] [address] 05/21/2013 12:0 0 PM GUEST RELATIONS EXECUTIVE 05/21/2013 12:33 PM GUEST RELATIONS EXECUTIVE Historical Provider MD LAB - MICROBIOLOG Y ORDERABLES Performing Organization Address [facility]/ZIP Co de Phone Number [facility] [address] [place] [address] * WET PREP - POINT OF CARE (AMB) U (12/31/2012) pH Wet Prep N [facility] Yeast Wet Prep N [facility] Trichomonas Wet Prep N [facility] Bacteria Wet Prep + [facility] Whiff Test + [facility] 12/31/2012 Historical Provider LAB - POINT OF CA RE ORDERABLES Performing Organization Address City/[facility]/ZIP Co de Phone Number [facility] * FUNGUS RUTHIE - POINT OF CARE (AMB) [facility] (12/31/2012) RUTHIE Prep BV [facility] Fluid specimen (specimen) 12/31/2012 Historical Provider LAB - POINT OF CA RE ORDERABLES Performing Organization Address City/[facility]/ZIP Co de Phone Number [facility] * VITAMIN D 1,25 DIHYDROXY (01/12/2012 10:15 PM CDT) Vitamin D 1,25-Dihydroxy 49.8 10.0 - 75.0 pg/mL [facility] Comment: Performed at: ?? - [facility] ??[id number] Impact Hammer Operator: Mykel Mcfarlane MD, Phone: ??[phone] Venous blood specimen (specimen) 01/12/2012 10:15 PM CDT 01/12/2012 10:19 PM CDT Historical Provider LAB - CHEMISTRY O RDERABLES Performing Organization Address City/[facility]/ZIP Co de Phone Number [address] [phone] * MRI LUMBAR SPINE WWO CONTRAST (01/12/2012 5:09 PM CDT) Anatomical Region Laterality Modality Spine Other Impressions 01/13/2012 1:25 PM CDT IMPRESSION: 1. Extensive progressive increase in T2/FLAIR hyperintensities scattered throughout the cerebral hemispheres and brainstem as well as the cervical spine as described above consistent with the patient's provided history of multiple sclerosis. Several new enhancing lesions are seen in the brain and brainstem as well as a new enhancing lesion in the cervical spine consistent with active demyelination. The lesions in the thoracic spine appear relatively unchanged with the exception of an enhancing focus on the prior study which no longer enhances. These results were discussed with Dr. Ridley by Dr. Castillo on 01/11 at 5:30 PM. This report was electronically signed by RAGHAV GREENBERG M.D. ??on 01/13/2012 1:25 PM . Narrative 01/13/2012 1:25 PM CDT EXAMINATION: 1. Magnetic resonance imaging (MRI) of the brain without and with contrast 2. Magnetic resonance imaging (MRI) of the cervical, thoracic, and lumbar spine without and with contrast HISTORY: Multiple sclerosis. Neurologic deficits. TECHNIQUE: MRI of the brain and cervical, thoracic, and lumbar spine was performed prior to and following the uneventful administration of MultiHance 11 mL intravenous gadolinium contrast according to standard protocol. FINDINGS: Comparison is made to prior brain and cervical and thoracic spine MR from 07/21/2011 and orbital MR from 11/18/2011. Brain: There has been progressive interval increase in extensive T2/FLAIR hyperintensities scattered throughout the cerebral hemispheres as well as in the brainstem when compared with the prior two studies. The most pronounced change is noted in the subcortical white matter of the frontal lobes near the vertex as well as the white matter in the parietal lobes bilaterally extending from a periventricular location to the subcortical region. There are several new areas of enhancement, some of which are solidly enhancing and some of which are ring enhancing in these same regions. The cerebellum is relatively spared. No evidence of acute or chronic hemorrhage and no evidence of acute cerebral infarction is seen. There is mild colpocephaly likely due to surrounding white matter injury. There is diffuse FLAIR hyperintensity along the undersurface of the corpus callosum. The visualized portions of the orbits, mastoids and paranasal sinuses appear normal. Normal flow voids are demonstrated in the carotid arteries and basilar artery. The calvarium appears normal. Cervical spine: There has been interval development of extensive T2/STIR hyperintensity throughout the cervical cord most pronounced at C2-3 where there is a new focus of enhancement in the anterior aspect of the cord. The alignment is normal. Vertebral body heights are normal. Intervertebral disc spaces are normal. No significant facet arthropathy or uncovertebral joint hypertrophy, no significant neuroforaminal narrowing or soft tissue abnormality. Thoracic spine: There is a similar distribution and number of T2/STIR hyperintensities in the thoracic spine when compared with the prior study. On the prior study there was a focus of enhancement at the T9 level which is not identified on the current study. No definite areas of enhancement are seen in the thoracic spine on the current study. Vertebral body heights are normal. Intervertebral disc spaces are normal. No central canal stenosis or neuroforaminal narrowing. No soft tissue abnormality identified. Lumbar spine: The alignment is normal. Annular fissures and disc desiccation are seen at L4 and L5. Vertebral body heights are normal. No abnormal signal seen in the conus or distal nerve roots. No abnormal enhancement is seen in the lumbar spine. No soft tissue abnormality appreciated. The central canal is widely patent. No neuroforaminal narrowing. Procedure Note Raghav Greenberg MD - 06/17/2017 EXAMINATION: 1. Magnetic resonance imaging (MRI) of the brain without and withcontrast 2. Magnetic resonance imaging (MRI) of the cervical, thoracic, and lumbarspine without and with contrast HISTORY: Multiple sclerosis. Neurologic deficits. TECHNIQUE: MRI of the brain and cervical, thoracic, and lumbar spine wasperformed prior to and following the uneventful administration ofMultiHance 11 mL intravenous gadolinium contrast according to standardprotocol. FINDINGS: Comparison is made to prior brain and cervical and thoracicspine MR from 07/21/2011 and orbital MR from 11/18/2011. Brain: There has been progressive interval increase in extensive T2/FLAIRhyperintensities scattered throughout the cerebral hemispheres as well asin the brainstem when compared with the prior two studies. The mostpronounced change is noted in the subcortical white matter of the frontal lobes near the vertex as well as the whitematter in the parietal lobes bilaterally extending from a periventricularlocation to the subcortical region. There are several new areas ofenhancement, some of which are solidly enhancing and some of which are ring enhancing in these same regions. Thecerebellum is relatively spared. No evidence of acute or chronic hemorrhage and no evidence of acutecerebral infarction is seen. There is mild colpocephaly likely due tosurrounding white matter injury. There is diffuse FLAIR hyperintensityalong the undersurface of the corpus callosum. The visualized portions of the orbits, mastoids and paranasal sinusesappear normal. Normal flow voids are demonstrated in the carotid arteriesand basilar artery. The calvarium appears normal. Cervical spine: There has been interval development of extensive T2/STIR hyperintensitythroughout the cervical cord most pronounced at C2-3 where there is a newfocus of enhancement in the anterior aspect of the cord. The alignment isnormal. Vertebral body heights are normal. Intervertebral disc spaces are normal. No significant facetarthropathy or uncovertebral joint hypertrophy, no significantneuroforaminal narrowing or soft tissue abnormality. Thoracic spine: There is a similar distribution and number of T2/STIR hyperintensities inthe thoracic spine when compared with the prior study. On the prior studythere was a focus of enhancement at the T9 level which is not identifiedon the current study. No definite areas of enhancement are seen in the thoracic spine on the current study.Vertebral body heights are normal. Intervertebral disc spaces are normal.No central canal stenosis or neuroforaminal narrowing. No soft tissueabnormality identified. Lumbar spine: The alignment is normal. Annular fissures and disc desiccation are seen atL4 and L5. Vertebral body heights are normal. No abnormal signal seen inthe conus or distal nerve roots. No abnormal enhancement is seen in thelumbar spine. No soft tissue abnormality appreciated. The central canal is widely patent. Noneuroforaminal narrowing. IMPRESSION IMPRESSION: 1. Extensive progressive increase in T2/FLAIR hyperintensities scatteredthroughout the cerebral hemispheres and brainstem as well as the cervicalspine as described above consistent with the patient's provided history ofmultiple sclerosis. Several new enhancing lesions are seen in the brain and brainstem as well as a newenhancing lesion in the cervical spine consistent with activedemyelination. The lesions in the thoracic spine appear relativelyunchanged with the exception of an enhancing focus on the prior study which no longer enhances. These results were discussed with Dr. Ridley by Dr. Castillo on 01/11 at 5:30 PM. This report was electronically signed by RAGHAV GREENBERG M.D. on 01/13/20121:25 PM . May Mcelroy MD MR ORDERABLES * (ABNORMAL) VARICELLA ZOSTER ANTIBODY IGG (07/06/2011 3:11 PM CDT) Varicella zoster Virus Antibody IgG Titer 1.64(H) Immune >1.09 index [facility] Comment: ? Nonimmune ? <0.91 ? Equivocal ?? 0.91 - 1.09 ? Immune ?>1.09 Performed at: ?? - [facility] ??[id number] Impact Hammer Operator: Kenia Liu MD, Phone: ??[phone] Serum 07/06/2011 3:11 PM CDT 07/06/2011 3:30 PM CDT Historical Provider LAB - CHEMISTRY O RDERABLES Performing Organization Address [facility] Co de Phone Number [address] [phone] * PATHOLOGY REPORTS - HPF HISTORICAL (01/13/2011 2:41 PM CDT) 01/13/2011 2:41 PM CDT Narrative [facility] - 01/13/2011 2:41 PM CDT Man Fritz MD LAB - PATHOLOGY/CYTO LOGY ORDERABLES Performing Organization Address [facility] Co de Phone Number [facility] * LAB MICROBIOLOGY - HPF HISTORICAL (11/05/2010 5:01 AM CDT) Only the most recent of2 resultswithin the time period is included. 11/05/2010 5:01 AM CDT Narrative [facility] - 11/05/2010 5:01 AM CDT Phoenix Fernández MD LAB - MICROBIOLOG Y ORDERABLES [facility] * PAP THINPREP (12/22/2009) Other (qualifier value) PART OF UTERINE CERVIX / Unknown 12/22/2009 Narrative [facility] - 01/05/2010 3:04 PM CDT Preferred Lab:->[facility] LAB Historical Provider LAB - PATHOLOGY/C YTOLOGY ORDERABLES Performing Organization Address City/[facility]/ZIP Co de Phone Number [facility] Care Teams Animal Behaviorist Relationship Specialty Start Date End Date Joy Sheppard PA-C [address] [place] [phone] PCP - General 01/29/24
--- OUTSIDE RECORDS SUMMARY | 2024-03-22 16:35 | XMS_ITS | Encounter Summary ---
Author Organization [facility] Health Address [address] [place] [address] Care Team Providers Care Venereal Disease Control Head Name Role Phone Unknown, Provider Primary Care Provider Unavaila ble Reason for Visit * Reason Comments Follow-up Pt is here today for a follow up for an abrasion OS. She rates her pain on a scale of 5 out of 10. She states that her pain has improved and vision has remained unaffected. She has taken her ofloxacin QID as prescribed and has remained out of her ctls. Encounter Details Date Type Department Care Team (Late st Contact Info) Description 11/05/2023 2:00 PM CDT Office Visit [facility] - Ophthalmology [address] [place] [phone] [place] [address] [place] [address] [place] [phone] Dry eye (Primary Dx) Social History Tobacco Use Types Packs/Day Years Used Date Smoking Tobacco: Never Passive Smoke Exposure: Never Smokeless Tobacco: Never Alcohol Use Standard Drinks/Week Comments Not Currently 8 (1 standard drink = 0.6 oz pur e alcohol) socially 1 X q 6 months AUDIT-C Answer Date Recorded Q1: How often do you have a drink containing alcohol? Never 11/21/2022 Q2: How many drinks containi ng alcohol do you have on a typical day when you are drinking? Patient does not drink Q3: How often do you have si x or more drinks on one occasion? Never 11/21/2022 Overall Financial Resource Strain (CARDIA) Answe r Date Recorded How hard is it for you to pa y for the very basics like food, housing, medical care, and heating? Not very hard 11/21/2022 PHQ-2 Answer Date Recorded Patient Health Questionnaire-2 Score 0 08/31/2023 [facility] of Occupat ional Health - Occupational Stress Questionnaire Answer Date Recorded Do you feel stress - tense, restless, nervous, or anxious, or unable to sleep at night because your mind is troubled all the time - these days? Only a little 11/21/2022 Hunger Vital Sign Answer Date Recorded Within the past 12 months, y ou worried that your food would run out before you got the money to buy more. Never true 11/22/19 23 Within the past 12 months, t he food you bought just didn't last and you didn't have money to get more. Never true 11/21/2022 PRAPARE - Transportation Answer Date Re corded In the past 12 months, has l ack of transportation kept you from medical appointments or from getting medications? No 07/2022 In the past 12 months, has l ack of transportation kept you from meetings, work, or from getting things needed for daily living? No 11/21/2022 Housing Stability Vital Sign Answer Bandar e Recorded In the last 12 months, was t here a time when you were not able to pay the mortgage or rent on time? No 11/21/2022 In the last 12 months, how many places have you lived? 0 11/21/2022 In the last 12 months, was t here a time when you did not have a steady place to sleep or slept in a care home (including now)? No 11/21/2022 Education Answer Date Recorded What is the highest level of school you have completed or the highest degree you have received? Bachelor's degree (e.g., BA, AB, BS) 05/14/2021 Sex and Gender Information Value Date Recorded Sex Assigned at Female 06/22/2023 9:58 AM CDT Gender Identity Female 06/22/2023 9:58 AM CDT Sexual Orientation Straight 06/22/2023 9: 58 AM CDT documented as of this encounter Functional Status Functional Status Response Date of Assess ment Is person deaf or have serious hearing difficult y? No 11/21/2022 Is person blind or have serious difficulty seein g? No 11/21/2022 Does person have serious dif ficulty walking/climbing stairs? No 11/21/2022 Does person have difficulty dressing/bathing? No 11/21/2022 Does person have difficulty doing errands alone? No 11/21/2022 Cognitive Status Response Date of Assessm ent Does person have difficulty concentrating/remembering/making decisions? No 11/21/2022 documented as of this encounter Progress Notes * Tania Velasquez, OD - 11/05/2023 3:31 PM CDT HPI Chief Complaint Patient presents with Follow-up Pt is here today for a follow up for an abrasion OS. She rates her pain on a scale of 5 out of 10. She states that her pain has improved and vision has remained unaffected. She has taken her ofloxacin QID as prescribed and has remained out of her ctls. The following was also reviewed and updated: Current Outpatient Medications Medication Sig Dispense Refill acetaminophen (Tylenol) 500 MG tablet Take 1 (one) tablet by mouth every 6 hours as needed for Fever or Pain Maximum allowable Acetaminophen amount = 4 Grams (4000 mg) / 24 hours. 30 tablet 5 ARIPiprazole (Abilify) 5 MG tablet Take 1 (one) tablet by mouth at bedtime for 90 days Reasons: Major Depressive Disorder 30 tablet 2 baclofen (Lioresal) 10 MG tablet TAKE 1 TABLET BY MOUTH TWICE DAILY FOR MUSCLE SPASMS. MAY CAUSE DROWSINESS 180 tablet 2 benzoyl peroxide (Benzac) 10 % wash Use as wash 1-2 times daily. 148 mL 11 brivaracetam (Briviact) 75 MG tablet Take 2 (two) tablets by mouth 2 times daily 120 tablet 5 budesonide-formoterol (Symbicort) 160-4.5 MCG/ACT inhaler Inhale 2 (two) puffs by mouth 2 times daily for 30 days 6 g 0 docusate sodium (Colace) 100 MG capsule Take 1 (one) capsule by mouth every 12 hours escitalopram (Lexapro) 10 MG tablet Take 1 (one) tablet by mouth once daily 90 tablet 0 escitalopram (Lexapro) 20 MG tablet Take 1 (one) tablet by mouth once daily Reasons: Premenstrual Disorder with a State of Unhappiness 90 tablet 0 fluticasone propionate (Flonase) 50 MCG/ACT nasal spray [place] 2 (two) sprays into each nostril oncedaily Make sure to shake bottle first folic acid (Folvite) 1 MG tablet Take 1 (one) tablet by mouth once daily 90 tablet 3 hydrOXYzine HCl (Atarax) 50 MG tablet Take on tablet 1 hour prior to MRI. May repeat once 30 minutes prior if needed. 2 tablet 0 ibuprofen (Motrin) 800 MG tablet Take 1 (one) tablet by mouth once daily as needed for Pain 30 tablet 5 lacosamide (Vimpat) 200 MG tablet Take 1 (one) tablet by mouth 2 times daily 60 tablet 5 onabotulinumtoxin A (BOTOX) 100 units injection Inject 155 (one hundred fifty five) Units into muscle Every 90 days Reasons: Migraine Headache 2 Each 1 onabotulinumtoxin A (BOTOX) 100 units injection Inject 155 (one hundred fifty five) Units into muscle Every 90 days Reasons: Migraine Headache 2 Each 1 pantoprazole EC (Protonix) 40 MG tablet spironolactone (Aldactone) 50 MG tablet Take 1 pill daily for 2 weeks then increase to 2 pills daily. 180 tablet 3 tretinoin (Retin-A) 0.05 % cream APPLY PEA SIZED AMOUNT TOPICALLY TO FACE AT NIGHT 20 g 11 Ventolin HFA 108 (90 Base) MCG/ACT inhaler Inhale 2 (two) puffs by mouth every 4 hours as needed for Shortness of Breath 6.7 g 0 zonisamide (Zonegran) 100 MG capsule Take 5 (five) capsules by mouth at bedtime Reasons: Focal Epilepsy 150 capsule 11 No current facility-administered medications for this visit. No Known Allergies Review of Systems Past Medical History: Diagnosis Date Asthma (HCC) Migraines MS (multiple sclerosis) (HCC) PID (pelvic inflammatory disease) Seizures (HCC) Past Surgical History: Procedure Laterality Date KNEE ARTHROPLASTY Right [place] CHEMODENERV MUSC MIGRAINE 07/18/2017 [place] CHEMODENERV MUSC MIGRAINE 10/17/2017 [place] CHEMODENERV MUSC MIGRAINE 01/14/2018 [place] CHEMODENERV MUSC MIGRAINE 04/15/2018 [place] CHEMODENERV MUSC MIGRAINE 07/22/2018 [place] CHEMODENERV MUSC MIGRAINE 10/21/2018 [place] CHEMODENERV MUSC MIGRAINE 10/13/2019 [place] CHEMODENERV MUSC MIGRAINE 01/12/2020 [place] CHEMODENERV MUSC MIGRAINE 04/19/2020 [place] CHEMODENERV MUSC MIGRAINE 07/21/2020 [place] CHEMODENERV MUSC MIGRAINE 11/01/2020 [place] CHEMODENERV MUSC MIGRAINE 02/14/2021 [place] CHEMODENERV MUSC MIGRAINE 07/13/2021 [place] CHEMODENERV MUSC MIGRAINE 10/21/2021 [place] CHEMODENERV MUSC MIGRAINE 01/18/2022 [place] CHEMODENERV MUSC MIGRAINE 05/05/2022 [place] CHEMODENERV MUSC MIGRAINE 09/08/2022 [place] CHEMODENERV MUSC MIGRAINE 03/16/2023 [place] CHEMODENERV MUSC MIGRAINE 06/13/2023 Tonsillectomy Bilateral Family History Problem Relation Name Age of Onset None Known Mother CAD (Coronary Artery Disease) Father None Known Sister None Known Brother None Known half-sister 29 None Known Son 14 None Known Maternal Aunt None Known Maternal Uncle None Known Paternal Aunt None Known Paternal Uncle None Known Maternal Grandmother None Known Maternal Grandfather None Known Paternal Grandmother None Known Paternal Grandfather None Known Other Depression Neg Hx Seizures Neg Hx Asthma Neg Hx Eczema Neg Hx Cancer - Other Neg Hx Cancer - Breast Neg Hx Cancer - Skin, Non Melanoma Neg Hx Cancer - Skin, Melanoma Neg Hx CVA Neg Hx Hemophilia Neg Hx Psoriasis Neg Hx Social History Tobacco Use Smoking status: Never Passive exposure: Never Smokeless tobacco: Never Vaping Use Vaping Use: Never used Substance Use Topics Alcohol use: Not Currently Alcohol/week: 8.0 standard drinks of alcohol Types: 6 Cans of beer, 2 Shots of liquor per week Comment: socially 1 X q 6 months Drug use: Yes Frequency: 7.0 times per week Types: Marijuana Comment: Daily Base Eye Exam Visual Acuity (Snellen - Linear) Right Left Dist sc - -2 Dist cc 20/20 20/20 Correction: Glasses Extraocular Movement Right Left Full Full Neuro/Psych Oriented x3: Yes Mood/Affect: Normal Slit Lamp and Fundus Exam External Exam Right Left External Normal Normal Slit Lamp Exam Right Left Lids/Lashes Normal Normal Conjunctiva/Sclera White and quiet White and quiet Cornea SPK inferior nasally 3 oclock, difuse staining SPEE inferior 1 oclock inferior SPEE, 10 o'clock with linear staining Anterior Chamber Deep and quiet Deep and quiet Iris Round and reactive Round and reactive Lens Clear Clear Anterior Vitreous Normal Normal Refraction Wearing Rx Sphere Cylinder [place] Right -6.50 -0.75 025 Left -6.00 -0.50 150 Type: SVL Study findings: Assessment/Plan Small corneal abrasion Os, photo in media tab - resolved now Peripheral cornea Seen by outside ED past weekend Was started on tetracaine, we discussed over the phone she should not take this (can cause cornea melt if over-used) Course of ofloxacin qid OS. Can stop now No CL wear whenever eyes are red Thinks this happened because she slept in CLs - discussed risk Mild dryness, small linear corneal abrasion OS - different lesion than the original No signs of EBMD, RCE, or herpetic Pt says she scratches eyes a lot. See chart for overlying psychiatric diagnosis Discussed glasses may be best in this case. See previous notes for detail of ocular health Copied from last full eye exam: 05/2023. Due for comp 05/2024 Mild strab amblyopia OS Microstrabismus OS Positive 4 WILD test OS. Small ET OS Nearly 20/20 each eye. OD seems mildly better than OS - stable per pt No history of EOM surgery H/o ANIA per chart (September 2016) Full EOM ranges today. Pt reports occasional flutter OS. Refractive Error Tania Velasquez, OD documented in this encounter Plan of Treatment Upcoming Encounters Date Type Department Care Team (Late st Contact Info) Description 04/04/2024 8:30 AM ACCOUNT DIRECTOR Office Visit [facility] - Dermatology [address] [place] [address], [place] [phone] Marlys Zaragoza MD [address] [place] [address] [address] [place] [phone] 09/03/2024 9:00 AM CDT Office Visit [facility] - Neurology [address] [place] [address], [place] [phone] Melissa Crook, LISETTE-HAIR SPECIALIST [address] [place] [address] documented as of this encounter Visit Diagnoses Diagnosis Dry eye- Primary documented in this encounter Care Teams Venereal Disease Control Head Relationship Specialty Start Date End Date Unknown, Provider PCP - General 09/11/23 01/28/24 documented as of this encounter
--- OUTSIDE RECORDS SUMMARY | 2024-03-22 16:35 | XMS_ITS | Encounter Summary ---
Author Organization [facility] Health Address [address] [place] [address] Care Team Providers Care Nailing Machine Feeder Name Role Phone A, Unknown Practice Primary Care Provider [phone] Reason for Visit * Reason Onset Date Comments MEDICATION REFILL 08/02/2023 Encounter Details Date Type Department Care Team (Late st Contact Info) Description 08/02/2023 Refill [facility] - Neurology [address] [facility], [place] [address] Lizeth Mason MD [address] [facility] [address] [place] [phone] MEDICATION REFILL Social History Tobacco Use Types Packs/Day Years [...] Date Recorded Patient Health Questionnaire-2 Score 1 03/02/2023 [facility] of Occupat ional Health - Occupational Stress [...] place to sleep or slept in a half-way (including now)? No 11/21/2022 Education Answer Date [...] No 11/21/2022 documented as of this encounter Plan of Treatment Upcoming Encounters Date Type Department Care Team (Late st Contact Info) Description 04/04/2024 8:30 AM ORCHESTRA CONDUCTOR Office Visit [facility] - Dermatology [address] [place] [address], [place] [address] Marlys Zaragoza MD [address] [place] [address] [place] [phone] 09/03/2024 9:00 AM CDT Office Visit [facility] - Neurology [address] [place] [address] [place] [phone] Melissa Crook, LISETTE-COTTON FARMER [address] [place] [address] documented as of this encounter Visit Diagnoses Not on filedocumented in this encounter Care Teams Nailing Machine Feeder Relationship Specialty Start Date End Date A, Unknown Practice [address] [place] [address] PCP - General 05/11/23 09/10/23 documented as of this encounter
--- OUTSIDE RECORDS SUMMARY | 2024-03-22 16:35 | XMS_ITS | Encounter Summary ---
Author Organization [facility] Health Address [address] [place] [address] Care Team Providers Care Wardrobe Technician Name Role Phone A, Unknown Practice Primary Care Provider [phone] Reason for Visit * Reason Comments Botox 200U BOT/3month migr aines * Procedure (Routine) - Closed Specialty Diagnoses / Procedures Referred By Nicole t Referred To Contact Neurology Diagnoses Chronic migraine without aura, intractable, without status migrainosus Procedures ND BOTULINUM TOXIN TYPE A PER UNIT [place] CHEMODENERV MUSC MIGRAINE Mckayla Haywood MD [address] [place] [address] [address] [place] [address] Mckayla Haywood MD [address] [place] [address] [address] [place] [address] Referral ID Status Reason Start Date Expiration Date Visits Re quested Visits Authorized [id number] Closed 03/16/2023 09/12/2023 2 2 Encounter Details Date Type Department Care Team (Latest Contact Info) Description 06/13/2023 2:00 PM CDT Procedure visit [facility] - Neurology [address] [place] [address], [place] [address] Mckayla Haywood MD [address] [place] [address] [address] [place] [address] Intractable chronic 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 without status migrainosus Social History Tobacco Use Types Packs/Day Years Used Date Smoking Tobacco: Never Passive Smoke Exposure: Never Smokeless Tobacco: Never Tobacco Cessation:Counseling Given: Not Answered Alcohol Use Standard Drinks/Week Comments Not Currently [...] Recorded Patient Health Questionnaire-2 Score 1 03/02/2023 [facility] of Occupat ional Health [...] place to sleep or slept in a long-term (including now)? No 11/21/2022 Education Answer Date [...] AM CDT documented as of this encounter Last Filed Vital Signs Vital Sign Reading Time Taken Comments Blood Pressure 108/65 06/13/2023 1:38 PM CDT Pulse 88 06/13/2023 1:38 PM CDT Temperature - - Respiratory Rate - - Oxygen Saturation 99% 06/13/2023 1:38 PM CDT Inhaled Oxygen Concentration - - Weight 64.4 kg (142 lb) 06/13/2023 1:38 PM CDT Height - - Body Mass Index 23.63 05/02/2023 9:33 AM CASTING ASSISTANT documented in this encounter Functional Status Functional Status Response [...] as of this encounter Progress Notes * Teresa Urban PA-C - 06/13/2023 1:43 PM CDT The patient has a long history of chronic migraine, which has been unresponsive to multiple medications. The patient has nausea and light sensitivity with headaches. Here for botox for chronic migraine. Pt is also followed in epilepsy clinic and [place] The patient has had significant benefit from Botox with a greater than 50% reduction in headache frequency and severity. Current Outpatient Medications Medication Sig Dispense Refill ??? acetaminophen (Tylenol) 500 MG tablet Take 1 (one) tablet by mouth every 6 hours as needed for Fever or Pain Maximum allowable Acetaminophen amount = 4 Grams (4000 mg) / 24 hours. 30 tablet 5 ??? ARIPiprazole (Abilify) 5 MG tablet Take 1 (one) tablet by mouth at bedtime for 90 days Reasons:Major Depressive Disorder 30 tablet 2 ??? baclofen (Lioresal) 10 MG tablet TAKE 1 TABLET BY MOUTH TWICE DAILY FOR MUSCLE SPASMS. MAY CAUSE DROWSINESS 180 tablet 2 ??? benzoyl peroxide (Benzac) 10 % wash Use as wash 1-2 times daily. 148 mL 11 ??? brivaracetam (Briviact) 75 MG tablet Take 2 (two) tablets by mouth 2 times daily 120 tablet 5 ??? budesonide-formoterol (Symbicort) 160-4.5 MCG/ACT inhaler Inhale 2 (two) puffs by mouth 2 timesdaily for 30 days 6 g 0 ??? docusate sodium (Colace) 100 MG capsule Take 1 (one) capsule by mouth every 12 hours ??? escitalopram (Lexapro) 10 MG tablet Take 1 (one) tablet by mouth once daily 90 tablet 0 ??? escitalopram (Lexapro) 20 MG tablet Take 1 (one) tablet by mouth once daily Reasons: Premenstrual Disorder with a State of Unhappiness 90 tablet 0 ??? fluticasone propionate (Flonase) 50 MCG/ACT nasal spray [place] 2 (two) sprays into each nostril once daily Make sure to shake bottle first ??? folic acid (Folvite) 1 MG tablet Take 1 (one) tablet by mouth once daily 90 tablet 3 ??? hydrOXYzine HCl (Atarax) 50 MG tablet Take on tablet 1 hour prior to MRI. May repeat once 30 minutes prior if needed. 2 tablet 0 ??? lacosamide (Vimpat) 200 MG tablet Take 1 (one) tablet by mouth 2 times daily 60 tablet 5 ??? onabotulinumtoxin A (BOTOX) 100 units injection Inject 155 (one hundred fifty five) Units into muscle Every 90 days Reasons: Migraine Headache 2 Each 1 ??? traZODone (Desyrel) 50 MG tablet TAKE 1 TABLET BY MOUTH EVERY NIGHT NEEDED FOR INSOMNIA (Patient not taking: Reported on 04/12/2023) 30 tablet 0 ??? tretinoin (Retin-A) 0.05 % cream APPLY PEA SIZED AMOUNT TOPICALLY TO FACE AT NIGHT 20 g 11 ??? Ventolin HFA 108 (90 Base) MCG/ACT inhaler Inhale 2 (two) puffs by mouth every 4 hours as needed for Shortness of Breath 6.7 g 0 ??? zonisamide (Zonegran) 100 MG capsule Take 5 (five) capsules by mouth at bedtime Reasons: Focal Epilepsy 150 capsule 11 No current facility-administered medications for this visit. BP 108/65 Pulse 88 Wt 64.4 kg (142 lb) SpO2 99% Awake, alert, CN: Extraocular movements intact Motor: Moves all extremities symmetrically Diagnosis: Chronic migraine without aura, intractable, Without status migrainosus Administer Botox for chronic migraine today. See procedure note for details. Associated attestation - Mckayla Haywood MD - 06/13/2023 2:57 PM CDT I supervised Teresa ROTH in performing Botox procedure. I was present during the entire procedure. documented in this encounter Procedure Notes * Teresa Urban PA-C - 06/13/2023 1:50 PM CDTAssociated Order(s): PROC INJECTION - BOTOX Procedure(s): ND CHEMODENERV MUSC MIGRAINE Pre-Procedure Diagnose(s): Intractable chronic 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 without status migrainosus Post-Procedure Diagnose(s): Intractable chronic 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 without status migrainosus Botox Procedure Note ?? Patient's identity confirmed by having patient say first and last name. ?? Diagnosis: Chronic migraine ?? Procedure code: 51157 ?? History: ?? Baseline number of headaches [...] Ordered 200 units for next visit. ?? documented in this encounter Plan of Treatment Upcoming Encounters Date Type Department Care Team (Late st Contact Info) Description 04/04/2024 8:30 AM CASTING ASSISTANT Office Visit [facility] - Dermatology [address] [place] [address], [place] [phone] Marlys Zaragoza MD [address] [place] [address] [address] [place] [phone] 09/03/2024 9:00 AM CDT Office Visit [facility] - Neurology [address] [facility], [place] [phone] MackMelissa schuster, EVP OPERATIONS-HAND SAMPLE MAKER [address] [place] [address] documented as of this encounter Procedures Procedure Name Priority Date/Time Associated Diagnosis Comments ND CHEMODENERV MUSC MIGRAINE Routine 06/13/2023 1:50 PM CDT Intractable chronic 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 without status migrainosus documented in this encounter Results * ND CHEMODENERV MUSC MIGRAINE (06/13/2023 1:50 PM CDT) Narrative Teresa Urban PA-C - 06/13/2023 1:50 PM CDT Teresa Urban PA-C ? 06/13/2023 ??2:57 PM Botox Procedure Note ?? Patient's identity confirmed by having patient say first and last name. ?? Diagnosis: Chronic migraine ?? Procedure code: 92289 ?? History: ?? Baseline number of headaches [...] Teresa Urban PA-C PROCEDURE/MINOR S URGICAL ORDERABLES documented in this encounter Visit Diagnoses Diagnosis Intractable chronic 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 without status migrainosus- Primary Chronic migraine without aura, with intractable migraine, so stated, without mention of status migrainosus documented in this encounter Administered Medications Inactive Administered Medications - up to 3 most recent administrations Medication Order MAR Action Action Date Dose Rate Site onabotulinumtoxin A (Botox) injection 155 Units 155 Units, Intramuscular, ONCE, 1 dose, On Sun06/13/23 at 1415 $ Given 06/13/2023 1:53 PM CDT 155 Units Head documented in this encounter Care Teams Wardrobe Technician Relationship Specialty Start Date End Date A, Unknown Practice [address] [place] [phone] PCP - General 05/11/23 09/10/23 documented as of this encounter
--- OUTSIDE RECORDS SUMMARY | 2024-03-22 16:35 | XMS_ITS | Encounter Summary ---
Author Organization [facility] Health Address [address] [place] [address] Care Team Providers Care Amusement Park Ride Mechanic Name Role Phone Unknown, Provider Primary Care Provider Unavaila ble Reason for Visit * Reason Comments Eye Problem Here due to corneal abrasion last week unsure which eye and how it happened but thinks its due to her sleeping in her contactsUses antibiotics BID AM and BID qhs OU. Use to use tetracaine but stopped after 1-2 days when Rx'ed after talking with .Patient not experiencing any pain and has been in glasses since. Gtts: used antibiotic drop before coming in. Encounter Details Date Type Department Care Team ([facility] Contact Info) Description 10/31/2023 1:00 PM CDT Office Visit [facility] - Ophthalmology [address] [place] [phone] Tania Velasquez M, OD [address] [facility] [place] [phone] Abrasion of left cornea, sequela (Primary Dx) Social History Tobacco Use Types [...] Recorded Patient Health Questionnaire-2 Score 0 08/31/2023 [facility] of Occupat ional Health - [...] place to sleep or slept in a fci (including now)? No 11/21/2022 Education Answer Date [...] Progress Notes * Tania Velasquez, OD - 10/31/2023 4:55 PM CDT HPI Chief Complaint Patient presents with Eye Problem Here due to corneal abrasion last week unsure which eye and how it happened but thinks its due to her sleeping in her contacts Uses antibiotics BID AM and BID qhs OU. Use to use tetracaine but stopped after 1-2 days when Rx'edafter talking with . Patient not experiencing any pain and has been in glasses since. Gtts: used antibiotic drop before coming in. The following was also reviewed and updated: [...] fluticasone propionate (Flonase) 50 MCG/ACT nasal spray [place] 2 (two) sprays into each nostril oncedaily [...] History: Procedure Laterality Date KNEE ARTHROPLASTY Right NE CHEMODENERV MUSC MIGRAINE 07/18/2017 NE CHEMODENERV MUSC MIGRAINE 10/17/2017 NE CHEMODENERV MUSC MIGRAINE 01/14/2018 NE CHEMODENERV MUSC MIGRAINE 04/15/2018 NE CHEMODENERV MUSC MIGRAINE 07/22/2018 NE CHEMODENERV MUSC MIGRAINE 10/21/2018 NE CHEMODENERV MUSC MIGRAINE 10/13/2019 NE CHEMODENERV MUSC MIGRAINE 01/12/2020 NE CHEMODENERV MUSC MIGRAINE 04/19/2020 NE CHEMODENERV MUSC MIGRAINE 07/21/2020 NE CHEMODENERV MUSC MIGRAINE 11/01/2020 NE CHEMODENERV MUSC MIGRAINE 02/14/2021 NE CHEMODENERV MUSC MIGRAINE 07/13/2021 NE CHEMODENERV MUSC MIGRAINE 10/21/2021 NE CHEMODENERV MUSC MIGRAINE 01/18/2022 NE CHEMODENERV MUSC MIGRAINE 05/05/2022 NE CHEMODENERV MUSC MIGRAINE 09/08/2022 NE CHEMODENERV MUSC MIGRAINE 03/16/2023 NE CHEMODENERV MUSC MIGRAINE 06/13/2023 Tonsillectomy Bilateral Family [...] Acuity (Snellen - Linear) Right Left Dist cc 20/20 20/25 Correction: Glasses Pupils Pupils APD Right PERRL None Left PERRL None Visual De Left Right Full Full Extraocular Movement Right Left Full Full Neuro/Psych Oriented x3: Yes Mood/Affect: Normal Slit Lamp and Fundus Exam External Exam Right Left External Normal Normal Slit Lamp Exam Right Left Lids/Lashes Normal Normal Conjunctiva/Sclera White and quiet White and quiet Cornea Clear epi defect with foreign body tracking inferotemporal towards edge of cornea Anterior Chamber Deep and quiet Deep and quiet Iris Round and reactive Round and reactive Lens Clear Clear Anterior Vitreous Normal Normal Study findings: Assessment/Plan Add on, eye pain OS Small corneal abrasion OS, photo in media tab Peripheral cornea Seen by outside ED past weekend Was started on tetracaine, we discussed over the phone she should not take this (can cause cornea melt if over-used) She is doing fine with pain, says she has none today Continue ofloxacin qid OS. F/u with me on Sunday to make sure resolved, not worsening No CL wear Thinks this happened because she slept in CLs - discussed risk See previous notes for detail of ocular health Tania Velasquez, OD documented in this encounter Plan of Treatment Upcoming Encounters Date Type Department Care Team (Late st Contact Info) Description 04/04/2024 8:30 AM LICENSED CUSTOMS BROKER Office [facility] - Dermatology [address] [place] [address], [place] [phone] Marlys Zaragoza MD [address] [place] [address] [address] [place] [phone] 09/03/2024 9:00 AM CDT Office Visit [facility] - Neurology [address] [place] [address], [place] [phone] Melissa Crook, PYROTECHNICIAN-NATURAL RESOURCE ECONOMIST [address] [place] [address] documented as of this encounter Visit Diagnoses Diagnosis Abrasion of left cornea, sequela- Primary documented in this encounter Care Teams Amusement Park Ride Mechanic Relationship Specialty Start Date End Date Unknown, Provider PCP - General 09/11/23 01/28/24 documented as of this encounter
--- OUTSIDE RECORDS SUMMARY | 2024-03-22 16:35 | XMS_ITS | Encounter Summary ---
Author Organization [facility] Health Address [address] [facility] [place] [address] Care Team Providers Care Shift Supervisor Rn Name Role Phone A, Unknown Practice Primary Care Provider [phone] Reason for Visit * Reason Onset Date Comments General 05/31/2023 Encounter Details Date Type Department Care Team (Late st Contact Info) Description 05/31/2023 Telephone [facility] - Neurology [address] [place] [address] Karen Reyes MD [address] [place] [phone] General Social History Tobacco Use Types Packs/Day Years [...] Recorded Patient Health Questionnaire-2 Score 1 03/02/2023 [facility] of Occupat ional Health - Occupational Stress [...] place to sleep or slept in a halfway (including now)? No 11/21/2022 Education Answer Date [...] No 11/21/2022 documented as of this encounter Miscellaneous Notes * Telephone Encounter - Elzbieta Bermudez RN - 05/31/2023 9:26 AM CDT Patient came to clinic today asking if she can get something to help calm her anxiety during the MRI. Will route to Dr. Thorpe to review. documented in this encounter Plan of Treatment Upcoming Encounters Date Type Department Care Team (Late st Contact Info) Description 04/04/2024 8:30 AM CLINICAL SYSTEMS ANALYST Office Visit [facility] - Dermatology [address] [place] [address], [place] [phone] Marlys Zaragoza MD [address] [place] [address] [address] [place] [phone] 09/03/2024 9:00 AM CDT Office Visit [facility] - Neurology [address] [place] [address], [place] [phone] Melissa Crook APRN-COORDINATOR OF HEALTH SERVICES [address] [place] [phone] documented as of this encounter Visit Diagnoses Not on filedocumented in this encounter Care Teams Shift Supervisor Rn Relationship Specialty Start Date End Date A, Unknown Practice [address] [place] [address] PCP - General 05/11/23 09/10/23 documented as of this encounter
--- OUTSIDE RECORDS SUMMARY | 2024-03-22 16:35 | XMS_ITS | Encounter Summary ---
Author Organization [facility] Health Address [address] [facility] [place] [address] Care Team Providers Care Mechanical Engineering Manager Name Role Phone A, Unknown Practice Primary Care Provider [phone] Encounter Details Date Type Department Care Team (Latest Contact Info) Description 07/11/2023 Travel Social History Tobacco Use Types Packs/Day Years [...] Recorded Patient Health Questionnaire-2 Score 1 03/02/2023 [facility] [place] of Occupat ional Health - Occupational Stress [...] place to sleep or slept in a assisted (including now)? No 11/21/2022 Education Answer Date [...] st Contact Info) Description 04/04/2024 8:30 AM STATE WILDLIFE OFFICER Office Visit [facility] - Dermatology [address] [place] [address], [place] [phone] Marlys Zaragoza MD [address] [facility] [address] [place] [phone] 09/03/2024 9:00 AM CDT Office Visit [facility] - Neurology [address] [place] [address], [place] [phone] Melissa Crook APRN-DIRECTOR OF SOCIAL SERVICES [address] [place] [address] documented as of this encounter Visit Diagnoses Not on filedocumented in this encounter Care Teams Mechanical Engineering Manager Relationship Specialty Start Date End Date A, Unknown Practice [address] [place] [address] PCP - General 05/11/23 09/10/23 documented as of this encounter
--- OUTSIDE RECORDS SUMMARY | 2024-03-22 16:35 | XMS_ITS | Encounter Summary ---
Author Organization [facility] Health Address [address] [place] [address] Care Team Providers Care Industrial Technician Name Role Phone Unknown, Provider Primary Care Provider Unavaila ble Reason for Visit * Reason Onset Date Comments Eye Problem 10/26/2023 Encounter Details Date Type Department Care Team (Late st Contact Info) Description 10/26/2023 Telephone [facility] - Ophthalmology [address] [place] [phone] Tomasz Salazar MD [address] [facility] [place] [place] [address] Eye Problem Social History Tobacco Use Types Packs/Day Years [...] Recorded Patient Health Questionnaire-2 Score 0 08/31/2023 [facility] of Occupat ional Health - Occupational Stress [...] encounter Miscellaneous Notes * Telephone Encounter - Tomasz Salazar MD - 10/26/2023 3:17 PM CDT Ophthalmology Telephone Encounter: Called Meredith Frost a 42 year old female who is a patient of Dr. Velasquez's who is calling in regarding 1week onset of left eye pain, redness, and purulent drainage. Patient notes that she frequently sleeps in contact lenses. Patient repeatedly asked for call or future appointment with Dr. Velasquez. I informed patient of the risk of severe eye infection with aforementioned symptoms and strongly urged ED or UrgentCare presentation today to rule-out corneal infection. I reassured patient that I would message Dr. Velasquez in order for her to be aware of the patient's condition. Patient expressed understanding and states she will present to her nearby ED in [place] today. Tomasz Salazar MD documented in this encounter Plan of Treatment Upcoming Encounters Date Type Department Care Team (Late st Contact Info) Description 04/04/2024 8:30 AM CHIEF SPECIALIST LEED Office [facility] - Dermatology [address] [place] [address], [place] [phone] Marlys Zaragoza MD [address] [place] [address] [address] [place] [phone] 09/03/2024 9:00 AM CDT Office Visit [facility] - Neurology [address] [place] [address], [place] [phone] Melissa Crook APRN-HOUSECLEANER FLOOR [address] [place] [phone] documented as of this encounter Visit Diagnoses Not on filedocumented in this encounter Care Teams Industrial Technician Relationship Specialty Start Date End Date Unknown, Provider PCP - General 09/11/23 01/28/24 documented as of this encounter
--- OUTSIDE RECORDS SUMMARY | 2024-03-22 16:35 | XMS_ITS | Encounter Summary ---
Author Organization [facility] Health Address [address] [facility] [place] [address] Care Team Providers Care Prizer Hand Name Role Phone A, Unknown Practice Primary Care Provider [phone] Reason for Visit * Reason Comments Pain Eye Meredith Frost is a 42 ye ar old femalePt slept in [facility] a few days ago Encounter Details Date Type Department Care Team (Late st Contact Info) Description 05/11/2023 9:00 AM EMERGENCY ROOM NURSE Office Visit [facility] - Ophthalmology [facility] [place] [address] Tania Velasquez M, OD [address] [facility] DEPT [place] [address] Foreign body sensation, left eye (Primary Dx) Social History Tobacco Use [...] Recorded Patient Health Questionnaire-2 Score 1 03/02/2023 [facility] - Occupational [...] place to sleep or slept in a [facility] (including now)? No 11/21/2022 Education Answer Date [...] Progress Notes * Tania Velasquez, OD - 05/11/2023 11:31 AM CST HPI Chief Complaint Patient presents with ??? Pain Eye Meredith Frost is a 42 year old female Pt slept in [facility] a few days ago The following was also reviewed and updated: Current Outpatient Medications Medication Sig Dispense Refill ??? acetaminophen (Tylenol) 500 MG tablet Take 1 (one) tablet by mouth every 6 hours as needed for Fever or Pain Maximum allowable Acetaminophen amount = 4 Grams (4000 mg) / 24 hours. 30 tablet 5 ??? ARIPiprazole (Abilify) 15 MG tablet Take 1 (one) tablet by mouth at bedtime for 90 days 30 tablet 2 ??? baclofen (Lioresal) 10 [...] fluticasone propionate (Flonase) 50 MCG/ACT nasal spray [place] 2 (two) sprays into each nostril once daily Make sure to shake bottle first ??? folic acid (Folvite) 1 MG tablet Take 1 (one) tablet by mouth once daily 90 tablet 3 ??? hydrOXYzine HCl (Atarax) 50 MG tablet Take 1 (one) tablet by mouth 2 times daily as needed (anxiety) 60 tablet 0 ??? lacosamide (Vimpat) 200 MG [...] of Systems Past Medical History: Diagnosis Date ??? Asthma ??? Migraines ??? MS (multiple sclerosis) ([facility]-HCC) ??? PID (pelvic inflammatory disease) ??? Seizures (CMS-HCC) Past Surgical History: Procedure Laterality Date ??? KNEE ARTHROPLASTY Right ??? [place] CHEMODENERV MUSC MIGRAINE 07/18/2017 ??? [place] CHEMODENERV MUSC MIGRAINE 10/17/2017 ??? [place] CHEMODENERV MUSC MIGRAINE 01/14/2018 ??? [place] CHEMODENERV MUSC MIGRAINE 04/15/2018 ??? [place] CHEMODENERV MUSC MIGRAINE 07/22/2018 ??? [place] CHEMODENERV MUSC MIGRAINE 10/21/2018 ??? [place] CHEMODENERV MUSC MIGRAINE 10/13/2019 ??? [place] CHEMODENERV MUSC MIGRAINE 01/12/2020 ??? [place] CHEMODENERV MUSC MIGRAINE 04/19/2020 ??? [place] CHEMODENERV MUSC MIGRAINE 07/21/2020 ??? [place] CHEMODENERV MUSC MIGRAINE 11/01/2020 ??? [place] CHEMODENERV MUSC MIGRAINE 02/14/2021 ??? [place] CHEMODENERV MUSC MIGRAINE 07/13/2021 ??? [place] CHEMODENERV MUSC MIGRAINE 10/21/2021 ??? [place] CHEMODENERV MUSC MIGRAINE 01/18/2022 ??? [place] CHEMODENERV MUSC MIGRAINE 05/05/2022 ??? [place] CHEMODENERV MUSC MIGRAINE 09/08/2022 ??? [place] CHEMODENERV MUSC MIGRAINE 03/16/2023 ??? Tonsillectomy Bilateral Family History Problem Relation Name Age of Onset ??? None Known Mother ??? CAD (Coronary Artery Disease) Father ??? None Known Sister ??? None Known Brother ??? None Known half-sister 29 ??? None Known Son 14 ??? None Known Maternal Aunt ??? None Known Maternal Uncle ??? None Known Paternal Aunt ??? None Known Paternal Uncle ??? None Known Maternal Grandmother ??? None Known Maternal Grandfather ??? None Known Paternal Grandmother ??? None Known Paternal Grandfather ??? None Known Other ??? Depression Neg Hx ??? Seizures Neg Hx ??? Asthma Neg Hx ??? Eczema Neg Hx ??? Cancer - Other Neg Hx ??? Cancer - Breast Neg Hx ??? Cancer - Skin, Non Melanoma Neg Hx ??? Cancer - Skin, Melanoma Neg Hx ??? CVA Neg Hx ??? Hemophilia Neg Hx ??? Psoriasis Neg Hx Social History Tobacco Use ??? Smoking status: Never Passive exposure: Never ??? Smokeless tobacco: Never Vaping Use ??? Vaping Use: Never used Substance Use Topics ??? Alcohol use: Not Currently Alcohol/week: 8.0 standard drinks of alcohol Types: 6 Cans of beer, 2 Shots of liquor per week Comment: socially 1 X q 6 months ??? Drug use: Yes Frequency: 7.0 times per week Types: Marijuana Comment: Daily Base Eye Exam Visual Acuity (Snellen - Linear) Right Left Dist cc 20/25 20/30 Dist ph cc 20/25 Correction: Glasses Visual De Left Right Full Full Extraocular Movement Right Left Full Full Neuro/Psych Oriented x3: Yes Mood/Affect: Normal Slit Lamp and Fundus Exam External Exam Right Left External Normal Normal Slit Lamp Exam Right Left Lids/Lashes MGD, blepharitis MGD, blepharitis Conjunctiva/Sclera White and quiet White and quiet Cornea Clear Clear Anterior Chamber Deep and quiet Deep and quiet Iris Round and reactive Round and reactive Lens trace Posterior polar trace Posterior polar Anterior Vitreous Normal Normal Fundus Exam Right Left Disc Anomalous Anomalous C/D Ratio 0.4 0.4 Macula Normal Normal Vessels Normal Normal Contact Lens Exam Current Contact Lens Rx Brand Base Curve Diameter Sphere Lens Right 1 Day Acuvue Moist 8.5 14.2 -6.50 (Only had -6.00 in stock) Left 1 Day Acuvue Moist 8.5 14.2 -5.75 Study findings: Assessment/Plan Add on FB sensation OS Slept in CLs a few days ago Could not find CL in OS since Has worn glasses since episode Everted and swept lids today - no sing of remaining CL OS OS Eyelid irritated with mildly more papilla OS>OD - gave sample of AT's Pt to call or send my chart if symptoms persist or worsen Should be feeling better by Sunday Discussed proper CL wear Only wear lenses if eyes are feeling normal and are not red at all We discussed that these lenses are replaced every day I reminded the pt to always wash hands when handling lenses, to take lenses out before sleeping, and to never use tap water on lenses/swim/shower in lenses due to risk of acanthamoeba . If pt experiences eye irritation, pain, or redness, or any changes in vision, she is to take out lenses and return to clinic. Healthy habits form was dispensed. Pt verbalizes understanding of the above assessment/plan, all questions were answered, and pt agrees to follow-up. Continue with comp exams Copied from last comp exam: LEVI: The patient has symptoms and signs consistent with dry eye syndrome. I recommend starting non-preserved artificial tears (NPAT's) OU QID + prn. If the frequency of drops required to alleviate symptoms reaches Q 1 hour, then punctum occlusion may be advisable. ?? Mild strab amblyopia OS Microstrabismus OS Positive 4 WILD test OS. Small ET OS Nearly 20/20 each eye. OD seems mildly better than OS - stable per pt No history of EOM surgery ?? Mild cataracts OU Not visually significant, unlikely to be the source of blurry vision ?? MS: H/O ANIA per chart Full EOM ranges today, denies eye pain, denies double vision, color plates full OD, missed 2 OS Pt reports last flare up was a long time ago, and usually gets double vision and blurry vision during flare ups. Pt reports occasional flutter OS. ?? Refractive Error: Patient defers Rx today. Follow up with [facility] for fitting. Follow up with [facility] for orthoptic evaluation before making final specs. ?? Tania Velasquez, OD GENCY ROOM NURSE documented in this encounter Plan of Treatment Upcoming Encounters Date Type Department Care Team (Late st Contact Info) Description 04/04/2024 8:30 AM EMERGENCY ROOM NURSE Office Visit [facility] - Dermatology [address] [place] [address] [place] [phone] Marlys Zaragoza MD [address] [place] [address] [address] [place] [phone] 09/03/2024 9:00 AM CDT Office Visit [facility] - Neurology [address] [place] [phone] Melissa Crook, ENVIRONMENTAL COMPLIANCE TECHNICIAN-HOT BOX SPOTTER [address] [place] [phone] documented as of this encounter Procedures Procedure Name Priority Date/Time Associated Diagnosis Comments LACOSAMIDE 05/11/2023 3:16 PM EMERGENCY ROOM NURSE ZONISAMIDE LEVEL 05/11/2023 3:16 PM EMERGENCY ROOM NURSE CBC W AUTO DIFFERENTIAL 05/11/2023 3:16 PM EMERGENCY ROOM NURSE COMPREHENSIVE METABOLIC PANEL 05/11/2023 3:16 PM EMERGENCY ROOM NURSE documented in this encounter Results * ZONISAMIDE LEVEL (05/11/2023 3:16 PM EMERGENCY ROOM NURSE) [facility] Zonisamide 19.5 10.0 - 40.0 mcg/mL [facility] Comment: This test was developed and its analytical performance characteristics have been determined by [employer]. It has not been cleared or approved by the FDA. This assay has been validated pursuant to the CLIA regulations and is used for clinical purposes. Test Performed at: [facility] [address] ??[id number] MELVI FLYNN MD 05/11/2023 3:16 PM EMERGENCY ROOM NURSE 05/11/2023 3:17 PM EMERGENCY ROOM NURSE Melissa JOSHI LAB - CHEMISTR Y ORDERABLES Performing Organization Address [facility] de Phone Number [address] [address] * LACOSAMIDE (05/11/2023 3:16 PM EMERGENCY ROOM NURSE) [facility] Lacosamide LC/MS/MS 7.3 mcg/mL [facility] Comment: Expected concentrations of Lacosamide in patients receiving recommended daily dosages: Up to 15.0 mcg/mL. Toxic range not established This test was developed and its analytical performance characteristics have been determined by [employer]. It has not been cleared or approved by the FDA. This assay has been validated pursuant to the CLIA regulations and is used for clinical purposes. Test Performed at: [facility] [address] ??[id number] MELVI FLYNN MD 05/11/2023 3:16 PM EMERGENCY ROOM NURSE 05/11/2023 3:17 PM EMERGENCY ROOM NURSE Melissa JOSHI LAB - CHEMISTR Y ORDERABLES Performing Organization Address [facility] [[email or web address]] Co de Phone Number [address] [phone] * (ABNORMAL) CBC WITH DIFFERENTIAL (05/11/2023 3:16 PM EMERGENCY ROOM NURSE) [facility] White Blood Cell Count 8.2 3.8 - 10.8 Thousand/ uL [facility] RBC 5.09 3.80 - 5.10 Million/u L [facility] Hemoglobin 11.2(L) 11.7 - 15.5 g/dL [facility] Hematocrit 38.0 35.0 - 45.0 % [facility] MCV 74.7(L) 80.0 - 100.0 fL [facility] MCH 22.0(L) 27.0 - 33.0 pg [facility] MCHC 29.5(L) 32.0 - 36.0 g/dL [facility] RDW 17.6(H) 11.0 - 15.0 % [facility] Platelet Count 385 140 - 400 Thousand/ uL [facility] MPV 9.3 7.5 - 12.5 fL [facility] Neutrophil Absolute 4813 1500 - 7800 cells/uL [facility] Absolute Bands [facility] Metamyelocytes Absolute [facility] Myelocytes Absolute [facility] Absolute Prolymphocytes [facility] Lymphocytes Absolute 1804 850 - 3900 cells/uL [facility] Absolute Monocytes 869 200 - 950 cells/uL [facility] Eosinophils Absolute 607(H) 15 - 500 cells/uL [facility] Basophils Absolute 107 0 - 200 cells/uL [facility] Absolute Blasts [facility] nRBC Absolute [facility] Granulocytes % 58.7 % [facility] Band Neutrophil [facility] Metamyelocytes [facility] Myelocytes [facility] Promyelocytes [facility] Lymphocytes % 22.0 % [facility] Lymphocyte Reactive [facility] Monocytes % 10.6 % [facility] Eosinophils % 7.4 % [facility] Basophils % 1.3 % [facility] Comment: Test Performed at: [id number] ??[id number] IMTIAZ PRUITT MD Blasts [facility] nRBC [facility] Comments [facility] Comment: Test Performed at: [id number] ??[id number] IMTIAZ PRUITT MD 05/11/2023 3:16 PM EMERGENCY ROOM NURSE 05/11/2023 3:17 PM EMERGENCY ROOM NURSE Melissa Crook ENVIRONMENTAL COMPLIANCE TECHNICIAN-HOT BOX SPOTTER LAB - HEMATOLO GY ORDERABLES [address] [address] * COMPREHENSIVE METABOLIC PANEL (05/11/2023 3:16 PM EMERGENCY ROOM NURSE) Glucose 85 65 - 99 mg/dL [facility] Comment: ? Fasting reference interval BUN 21 7 - 25 mg/dL [facility] Creatinine 0.66 0.50 - 0.99 mg/dL [facility] eGFR by Cystatin C 112 > OR = 60 mL/min/1. 73m2 [facility] BUN/Creatinine Ratio SEE NOTE: (calc) [facility] Comment: ?? Not Reported: BUN and Creatinine are within ?? reference range. ? Sodium 139 135 - 146 mmol/L [facility] Potassium 4.3 3.5 - 5.3 mmol/L [facility] Chloride 110 98 - 110 mmol/L [facility] CO2 25 20 - 32 mmol/L [facility] Calcium 9.2 8.6 - 10.2 mg/dL [facility] Protein Total 6.4 6.1 - 8.1 g/dL [facility] Albumin 4.3 3.6 - 5.1 g/dL [facility] Globulin Total 2.1 1.9 - 3.7 g/dL (calc) [facility] Albumin/Globulin Ratio 2.0 1.0 - 2.5 (calc) [facility] Bilirubin Total 0.2 0.2 - 1.2 mg/dL [facility] Alkaline Phosphatase 50 31 - 125 U/L [facility] AST 10 10 - 30 U/L [facility] ALT 7 6 - 29 U/L [facility] Comment: Test Performed at: [id number] ??[id number] IMTIAZ PRUITT MD 05/11/2023 3:16 PM EMERGENCY ROOM NURSE 05/11/2023 3:17 PM EMERGENCY ROOM NURSE Melissa Crook ENVIRONMENTAL COMPLIANCE TECHNICIAN-HOT BOX SPOTTER LAB - CHEMISTR Y ORDERABLES [address] [address] documented in this encounter Visit Diagnoses Diagnosis Foreign body sensation, left eye- Primary documented in this encounter Care Teams Prizer Hand Relationship Specialty Start Date End Date A, Unknown Practice [address] [place] [address] PCP - General 05/11/23 09/10/23 documented as of this encounter
--- OUTSIDE RECORDS SUMMARY | 2024-03-22 16:35 | XMS_ITS | Encounter Summary ---
Author Organization [facility] Health Address [address] [facility] [place] [address] Care Team Providers Care Master Automotive Glass Technician Name Role Phone Unknown, Provider Primary Care Provider Unavaila ble Reason for Visit * Reason Comments Full Body Skin Examination 6 month tati guillory full body skin check. Encounter Details Date Type Department Care Team (Late st Contact Info) Description 09/21/2023 8:50 AM CDT Office Visit [facility] - Dermatology [address] [place] [address], [facility] [place] [address] Marlys Zaragoza MD [address] [place] [address] [address] [place] [address] Acne vulgaris (Primary Dx); Lentigines; Seborrheic keratosis; Multiple nevi; Mustafa angioma; Spider angioma; Female pattern alopecia Social History Tobacco Use Types Packs/Day Years [...] Recorded Patient Health Questionnaire-2 Score 0 08/31/2023 [facility] - Occupational Stress Questionnaire Answer Date Recorded [...] place to sleep or slept in a nursing home (including now)? No 11/21/2022 Education Answer [...] No 11/21/2022 documented as of this encounter Patient Instructions * Patient Instructions* Jackelyn Richter MD - 09/21/2023 8:58 AM CDT Thank you for coming to your appointment today. start over the counter rogaine twice daily if desired It was a pleasure seeing you in the office today. Please make a follow up appointment in 6 months to see how your acne is doing. Most acne treatments take 6-8 weeks to start being effective so consistent use of medications is very important. Please follow your acne regimen as we discussed: Wash your face with a cleanser that contains the active ingredient benzoyl peroxide 5% wash once daily in the morning. Be aware that products containing benzoyl peroxide can bleach towels and clothes. To minimize this problem, rinse well and/or use white towels. Apply a pea-sized amount of tretinoin 0.05% cream nightly to the entire face. Do not use only for spot treatment. If irritation occurs, use the medication less often. If you tend to have sensitive skin, you may wish to start using the cream only 2-3 times per week. Take spironolactone 100mg once daily. - stop this medicine if you are sexually active and not usingcontraception This medication can cause increased urination, breast tenderness, irregular menses, and rarely highpotassium. Anti-androgenic effects of this medication can cause feminization of the male fetus during the first trimester so women must not get while on this medication. ACNE VULGARIS What causes acne? Acne can be treated but it can't be cured. Pimples begin in your pores, which are connected to oil glands. When the oil and cells that line your pores stick together, the pore gets blocked, forming ablackhead or conte.The blackhead is not dirt, so scrubbing can't remove it. Whiteheads form larger pimples when the oil, cells and germs collected in the pore break through the pore wall and cause irritation under the skin. What makes acne worse? Picking Washing too often or scrubbing Friction - for example, helmet chin straps or tight headbands or hats Menstrual cycles Stress - exercise, plenty of sleep, and a healthy diet can help reduce stress. Experts disagree about whether certain foods make acne worse. What does not make acne worse? Dirt does not cause acne. You do not need to wash multiple times a day or use astringents, masks orscrubbers. Makeup does not cause acne, but the safest products are labeled oil-free or noncomedogenic. . How is acne treated? There are many effective medications to choose from. The biggest difference in the products is the feel or smell. Some medications cause side effects in some people. Your doctor will help you choose the medication that you will like best. Some people need to use more than one medication. You will need to use medicine every day for at least 6 weeks to see a change in your skin. Be patient. Don't give up. For skin cancer prevention: We recommend DAILY sun protection and MONTHLY self skin exams. Examine your moles for any changes. Alert us of any moles that are asymmetrical, have irregular borders, more than one color in a mole, larger than end of a pencil eraser, or anything that is changing over time (A-B-C-D-Es of Melanoma). See below for sun screen recommendations. SUNSCREENS UVA and UVB PROTECTION Sunlight consists of two types of light that can cause or worsen most skin problems: UVA (ultraviolet A) Brown spots Wrinkles Aging Rosacea Less variation with seasons All year round All day strong No rating system available Passes through glass and clouds UVB (ultraviolet B) Skin cancers Sunburn Tanning Strongest in summer Peak hours 10am to 2pm SPF rates UVB protection Sunscreens that block both UVA and UVB light contain: Zinc Oxide (should contain at least 4% zinc oxide) Titanium Dioxide Parsol or Avobenzone (additives improve stability of Avobenzone) There are other UVA blocking ingredients but they are not as complete as these three. Tips/Suggestions SPF of 30 or higher Zinc Oxide or other UVA block such as Helioplex or Anthelios in product Remember there is no safe UV light???so there is no such thing as a safe suntan. Apply sunscreen daily (even in winter and on cloudy days) and reapply every 2 to 4 hours depending on activity. Approximately one ounce (a shot glass) is necessary to adequately cover the entire body. documented in this encounter Progress Notes * Jackelyn Richter MD - 09/21/2023 8:32 AM CDT Chief Complaint Patient presents with Full Body Skin Examination 6 month annual full body skin check. HPI: Meredith Frost a 42 year old female presents for skin exam. 03/23/23 seen for skin check and acne. Concerns: 1. acne face Continues to get intermittent papules chin, patient unhappy with current control - tretinoin 0.05% cream QHS (using every 2-3 days) - benzoyl peroxide wash QD (not using) regular menstrual periods, no contraception, unsure if flaring with periods 2. hair loss on frontal and temporal scalp for years patient attributes to getting botox in forehead no treatment no itching or pain stressful living situation Allergies and medications were reviewed and verified. Past medical history, social history and family history were reviewed. ROS: As per HPI above. Personal history of skin cancer: none PE: No acute distress. Mood clear/affect appropriate. Alert and oriented. Mucous membranes moist. Sclera anicteric. Full body skin exam was conducted to include the scalp, face, lips/teeth, lids/conjunctiva, ears, neck, chest, abdomen, back, groin/buttock, right and left hands and forearms, right and left leg and feet and was normal with the following exceptions: Multiple 2-6 mm valentine brown macules and papules and skin colored papules on face, trunk and extremities Multiple valentine to light brown macules on face, shoulders and arms in a photo- distributed pattern Scattered over trunk and extremities are valentine to brown, waxy stuck on papules and plaques Many 2-4 mm mustafa red papules on trunk right nasal side wall with telangiectasias pink papule on chin no scaling or perifollicular edema on the scalp, normal eyebrows, grossly normal hair density A/P: Meredith was seen today for full body skin examination. Diagnoses and all orders for this visit: Acne vulgaris, few persistent papules on chin today, patient unhappy with current control - Educated patient on diagnosis and treatment options - Start spironolactone 50 mg PO QD x 2 wks then 100 mg PO QD (educated on SE including low BP, teratogenicity, and irregular menstruation) - Start OTC BP wash in shower daily - Start tretinoin 0.05% cream nightly (instructed on proper use) - Acne educational handouts given Lentigines - Explained benign nature, reassurance provided. - ABCDEs of melanoma was explained to the pt, advised pt on consistent sunscreen use (SPF > 30, UVA + UVB). Monthly self-exam, and avoid direct sunlight/tanning. 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 Coding Rationale New or est? Established Patient Highest problem complexity: 1 or more chronic illnesses with exacerbation, progression, or side effects of treatment Highest level of risk: Moderate Suggested code: 43081 RTC in 6 months Seen, examined, and discussed with Dr. Zaragoza, attending auto locator. Jackelyn Richter MD Dermatology Resident Associated attestation - Marlys Zaragoza MD - 09/21/2023 9:14 AM CDT Attending Physician Supervisory Note I have seen and examined the patient with the resident and I agree with the findings and plan of care as documented by the resident and edited by me. Date of Service : 09/21/2023 Marlys Zaragoza MD [facility] Dermat[facility] documented in this encounter Plan of Treatment Upcoming Encounters Date Type Department Care Team (Late st Contact Info) Description 04/04/2024 8:30 AM ARMORER TECHNICIAN Office Visit [facility] - Dermatology [address] [place] [address], [place] [address] Marlys Zaragoza MD [address] [place] [address] [address] [place] [phone] 09/03/2024 9:00 AM CDT Office Visit [facility] - Neurology [address] [place] [phone] Melissa Crook APRN-[employer] RECORDS ANALYST [address] [place] [phone] documented as of this encounter Visit Diagnoses Diagnosis Acne vulgaris- Primary Other acne Lentigines Other dyschromia Seborrheic keratosis Multiple nevi Benign neoplasm of skin, site unspecified Mustafa angioma Nevus, non-neoplastic Spider angioma Nevus, non-neoplastic Female pattern alopecia Alopecia, unspecified documented in this encounter Care Teams Master Automotive Glass Technician Relationship Specialty Start Date End Date Unknown, Provider PCP - General 09/11/23 01/28/24 documented as of this encounter
--- OUTSIDE RECORDS SUMMARY | 2024-03-22 16:35 | XMS_ITS | Encounter Summary ---
Author Organization [facility] Health Address [address] [place] [address] Care Team Providers Care Extract Wringer Name Role Phone Unknown, Provider Primary Care Provider Unavaila ble Encounter Details Date Type Department Care Team (Latest Contact Info) Description 11/26/2023 Travel Social History Tobacco Use Types Packs/Day [...] Recorded Patient Health Questionnaire-2 Score 1 11/26/2023 [facility] [place] of Occupat ional Health - Occupational Stress [...] place to sleep or slept in a prison (including now)? No 11/27/2023 Education Answer Date [...] st Contact Info) Description 04/04/2024 8:30 AM REPRESENTATIVE Office Visit [facility] - Dermatology [address] [place] [address], [place] [phone] Marlys Zaragoza MD [address] [facility] 3L [place] [phone] 09/03/2024 9:00 AM CDT Office Visit [facility] - Neurology [address] [place] [address], [place] [phone] Melissa Crook, LISETTE-CAFETERIA MONITOR [address] [place] [phone] documented as of this encounter Visit Diagnoses Not on filedocumented in this encounter Care Teams Extract Wringer Relationship Specialty Start Date End Date Unknown, Provider PCP - General 09/11/23 01/28/24 documented as of this encounter
--- OUTSIDE RECORDS SUMMARY | 2024-03-22 16:35 | XMS_ITS | Encounter Summary ---
Author Organization [facility] Health Address [address] [facility] [place] [address] Care Team Providers Care Print Binding Worker Name Role Phone Unknown, Provider Primary Care Provider Unavaila ble Encounter Details Date Type Department Care Team (Late st Contact Info) Description 01/01/2024 Orders Only [facility] - Infusion [address] [place] [phone] Deja Godinez, PharmD [address] [place] [address] Social History Tobacco Use Types Packs/Day Years Used Date Smoking Tobacco: Never Smokeless Tobacco: Never Alcohol Use Standard [...] Recorded Patient Health Questionnaire-2 Score 1 11/26/2023 [facility] [place] of Occupat ional Health - Occupational Stress [...] slept in a halfway (including now)? No 11/27/2023 Education Answer Date [...] person have difficulty concentrating/remembering/making decisions? Yes 11/27/2023 documented as of this encounter Plan of Treatment Upcoming Encounters Date Type Department Care Team (Late st Contact Info) Description 04/04/2024 8:30 AM ASH CONVEYOR OPERATOR Office Visit [facility] - Dermatology [address] [place] [address], [place] [address] Marlys Zaragoza MD [address] [place] [address] 3 [place] [phone] 09/03/2024 9:00 AM CDT Office Visit [facility] - Neurology [address] [place] [address], [place] [phone] Melissa Crook APRN-TACK PULLER MACHINE [address] [place] [phone] documented as of this encounter Visit Diagnoses Not on filedocumented in this encounter Care Teams Print Binding Worker Relationship Specialty Start Date End Date Unknown, Provider PCP - General 09/11/23 01/28/24 documented as of this encounter
--- OUTSIDE RECORDS SUMMARY | 2024-03-22 16:35 | XMS_ITS | Encounter Summary ---
Author Organization [facility] Health Address [address] [facility] [place] [address] Care Team Providers Care Sole Splitter Name Role Phone Unknown, Provider Primary Care Provider Joy Garvey PA-C Primary Care Provider [phone] Encounter Details Date Type Department Care Team (Late st Contact Info) Description 10/29/2023 Telephone [facility] - Ophthalmology [facility] [place] [address] Tania Velasquez M, OD [address] [place] [address] [place] [address] Social History Tobacco Use Types Packs/Day Years [...] Recorded Patient Health Questionnaire-2 Score 0 08/31/2023 [facility] [place] of Occupat ional Health - Occupational Stress [...] place to sleep or slept in a long term (including now)? No 11/21/2022 Education Answer Date [...] st Contact Info) Description 04/04/2024 8:30 AM GOLF PLAYER ASSISTANT Office Visit [facility] - Dermatology [address] [place] [address], [place] [address] Marlys Zaragoza MD [address] [place] [address] 3 [place] [phone] 09/03/2024 9:00 AM CDT Office Visit [facility] - Neurology [address] [place] [phone] Melissa Crook, LISETTE-GLOVE TURNER AND FORMER AUTOMATIC [address] [place] [phone] documented as of this encounter Visit Diagnoses Not on filedocumented in this encounter Care Teams Sole Splitter Relationship Specialty Start Date End Date Unknown, Provider PCP - General 09/11/23 01/28/24 Joy Sheppard PA-C [address] [place] [phone] PCP - General 01/29/24 documented as of this encounter
--- OUTSIDE RECORDS SUMMARY | 2024-03-22 16:35 | XMS_ITS | Encounter Summary ---
Author Organization [facility] Health Address [address] [place] [address] Care Team Providers Care Adult Basic Education Teacher Name Role Phone A, Unknown Practice Primary Care Provider [phone] Encounter Details Date Type Department Care Team (Latest Contact Info) Description 06/13/2023 Travel Social History Tobacco Use Types Packs/Day [...] Recorded Patient Health Questionnaire-2 Score 1 03/02/2023 [facility] [place] of Occupat ional Health - Occupational Stress [...] st Contact Info) Description 04/04/2024 8:30 AM POKER PROP PLAYER [facility] [address] [place] [address], [place] [phone] Marlys Zaragoza MD [address] [facility] 3L [place] [phone] 09/03/2024 9:00 AM CDT Office Visit [facility] - Neurology [address] [place] [address], [place] [phone] Melissa Crook APRN-HEEL BUILDER MACHINE [address] [place] [address] documented as of this encounter Visit Diagnoses Not on filedocumented in this encounter Care Teams Adult Basic Education Teacher Relationship Specialty Start Date End Date A, Unknown Practice [address] [place] [address] PCP - General 05/11/23 09/10/23 documented as of this encounter
--- OUTSIDE RECORDS SUMMARY | 2024-03-22 16:35 | XMS_ITS | Encounter Summary ---
Author Organization [facility] Health Address [address] [facility] [place] [address] Care Team Providers Care Mortgage Or Loan Underwriter Name Role Phone A, Unknown Practice Primary Care Provider [phone] Reason for Visit * Oncology Prior Authorization (Routine) - Closed Specialty Diagnoses / Procedures Referred By Contdanny t Referred To Contact Diagnoses MS (multiple sclerosis) (HCC) Procedures [place] INJ OCRELIZUMAB 1MG Devan Renee MD [address] [place] [address] [facility] [place] [address] Referral ID Status Reason Start Date Expiration Date Visits Re quested Visits Authorized [id number] Closed 12/20/2022 12/21/2023 2 2 Encounter Details Date Type Department Care Team (Latest Contact Info) Description 06/22/2023 9:30 AM CDT Procedure visit [facility]fusion [address] [place] [address] MS (multiple sclerosis) (HCC) Social History Tobacco Use Types Packs/Day Years Used Date Smoking Tobacco: Never Passive Smoke Exposure: Never Smokeless Tobacco: Never Tobacco Cessation:Counseling Given: No Alcohol Use Standard Drinks/Week Comments Not Currently [...] Recorded Patient Health Questionnaire-2 Score 1 03/02/2023 [facility] of Occupat ional Health - Occupational Stress [...] place to sleep or slept in a penitentiary (including now)? No 11/21/2022 Education Answer Date [...] Sign Reading Time Taken Comments Blood Pressure 112/69 06/22/2023 8:53 AM CDT Pulse 101 06/22/2023 8:53 AM CDT Temperature 36.2 ??C (97.2 ??F) 06/22/2023 8:53 AM CD T Respiratory Rate 16 06/22/2023 8:53 AM CDT Oxygen Saturation 100% 06/22/2023 8:53 AM CDT Inhaled Oxygen Concentration - - Weight 63.1 kg (139 lb 3.2 oz) 06/22/2023 8:53 A M CDT Height 165.1 cm (5' 5 ) 06/22/2023 8:53 AM CDT Body Mass Index 23.16 06/22/2023 8:53 AM CDT documented in this encounter Functional Status Functional [...] st Contact Info) Description 04/04/2024 8:30 AM TENNIS COACH Office Visit [facility] - Dermatology [address] [place] [address], [facility] [place] [phone] Marlys Zaragoza MD [address] [place] [address] 3 [place] [phone] 09/03/2024 9:00 AM CDT Office Visit [facility] - Neurology [address] [facility], [place] [phone] Melissa Crook APRN-WEB CONTENT & SOCIAL MEDIA MANAGER [address] [place] [phone] documented as of this encounter Visit Diagnoses Diagnosis MS (multiple sclerosis) (HCC)- Primary Multiple sclerosis documented in this encounter Administered Medications Inactive Administered Medications - up to 3 most recent administrations Medication Order MAR Action Action Date Dose Rate Site acetaminophen (Tylenol) tablet 650 mg 650 mg, Oral, ONCE, 1 dose, On Sun06/22/23 at 0915, Maximum allowable Acetaminophen amount = 4 Grams (4000 mg) / 24 hours. Administer pre-medications 30-60 minutes prior to ocrelizumab. Patient preference for lesser PRN pain meds may be honored when the patient requests a less strong medication, a lower dose, or a less intrusive route of administration when the lesser drug, dose and route have been ordered for the patient. This patient request must be documented in the MAR. If both oral and IV options are ordered for the same pain severity, give oral first unless patient cannot tolerate oral intake $ Given 06/22/2023 9:20 AM CDT 650 mg methylPREDNISolone sod succ (SOLU-Medrol) injection 100 mg 100 mg, Intravenous, ONCE, 1 dose, On Sun06/22/23 at 0915, Reconstituted solution may be given via direct IV injection over 2-5 minutes without further dilution. Administer pre-medications 30-60 minutes prior to ocrelizumab. $ Given 06/22/2023 9:20 AM CDT 100 mg ocrelizumab (Ocrevus) 600 mg in 0.9% NaCl IV 550 mL infusion 600 mg, at 0-200 mL/hr, Intravenous, CONTINUOUS, Starting on Sun06/22/23 at 0945, Until Sun06/22/23 at 1430, For subsequent infusion if previously tolerated Begin infusion at rate of 40 mL/hr x 30 minutes. If tolerated increase rate to 80 mL/hr x 30 minutes. If tolerated increase rate to 120 mL/hr x 30 minutes. If tolerated increase rate to 160 mL/hr x 30 minutes. If tolerated increase to max rate of 200 mL/hr for remainder of infusion. Observe patient for 1 hour post infusion. Administer via dedicated line with a 0.2 or 0.22 micron in-line filter $ New Bag/Syringe 06/22/2023 9:44 AM CDT 600 mg 100 mL/hr documented in this encounter Care Teams Mortgage Or Loan Underwriter Relationship Specialty Start Date End Date A, Unknown Practice [address] [place] [address] PCP - General 05/11/23 09/10/23 documented as of this encounter
--- OUTSIDE RECORDS SUMMARY | 2024-03-22 16:35 | XMS_ITS | Encounter Summary ---
Author Organization [facility] Health Address [address] [place] [address] Care Team Providers Care Vein Access Technician Name Role Phone A, Unknown Practice Primary Care Provider [phone] Reason for Visit * Reason Onset Date Comments MEDICATION REFILL 05/31/2023 Encounter Details Date Type Department Care Team (Late st Contact Info) Description 05/31/2023 Refill [facility] - Neurology [address] [place] [address] Karen Reyes MD [address] [place] [address] MEDICATION REFILL Social History Tobacco Use Types [...] Recorded Patient Health Questionnaire-2 Score 1 03/02/2023 [facility] of Occupat ional Health - Occupational Stress [...] place to sleep or slept in a usp (including now)? No 11/21/2022 Education Answer Date [...] Encounter - Elzbieta Bermudez RN - 05/31/2023 1:[address] Ila marin to prescribe patient hydroxyzine for MRI. documented in this encounter Plan of Treatment Upcoming Encounters Date Type Department Care Team (Late st Contact Info) Description 04/04/2024 8:30 AM STUDENT ASSISTANT [facility] Derm[facility] [address] [place] [address], [place] [phone] Marlsy Zaragoza MD [address] [place] [address] 3 [place] [phone] 09/03/2024 9:00 AM CDT Office Visit [facility] - Neurology [address] [place] [phone] Melissa Crook APRN-MANAGER RADIO [address] [place] [address] documented as of this encounter Visit Diagnoses Diagnosis MS (multiple sclerosis) (HCC)- Primary Multiple sclerosis documented in this encounter Care Teams Vein Access Technician Relationship Specialty Start Date End Date A, Unknown Practice [address] [place] [address] PCP - General 05/11/23 09/10/23 documented as of this encounter
--- OUTSIDE RECORDS SUMMARY | 2024-03-22 16:35 | XMS_ITS | Encounter Summary ---
Author Organization [facility] Health Address [address] [facility] [place] [address] Care Team Providers Care Button Tufter Name Role Phone Unknown, Provider Primary Care Provider Unavaila ble Reason for Visit * Reason Onset Date Comments Follow-up 10/29/2023 Encounter Details Date Type Department Care Team ([facility] Contact Info) Description 10/29/2023 Telephone [facility] - [facility] [place] [address] Tania Velasquez M, OD [address] [place] [address] [place] [address] Follow-up Social History Tobacco Use Types Packs/Day Years [...] Recorded Patient Health Questionnaire-2 Score 0 08/31/2023 [facility] [place] of Occupat ional Health - Occupational Stress [...] place to sleep or slept in a retirement (including now)? No 11/21/2022 Education Answer Date [...] encounter Miscellaneous Notes * Telephone Encounter - Tania Velasquez, OD - 10/29/2023 10:39 AM CDT Called pt Went to ED over the weekend for eye pain Was given tetracane and oflaxacin Stop tetracane Pt doing ok, possibly still some pain Offered visit today but pt cannot come due to transportation Soonest she can come is sunday, scheduled w/ KL 1pm Sunday Told her she must call us luca if worsening See KL or doctor rn corrections documented in this encounter Plan of Treatment Upcoming Encounters Date Type Department Care Team (Late st Contact Info) Description 04/04/2024 8:30 AM VICE ADMIRAL Office Visit [facility] - Dermatology [address] [place] [address], [place] [phone] Marlys Zaragoza MD [address] [place] [address] 3 [place] [phone] 09/03/2024 9:00 AM CDT Office Visit [facility] - Neurology [address] [place] [address], [place] [address] Melissa Crook, SHEET METAL SHOP SUPERVISOR-BOARD CERTIFIED ORTHODONTIST [address] [place] [phone] documented as of this encounter Visit Diagnoses Not on filedocumented in this encounter Care Teams Button Tufter Relationship Specialty Start Date End Date Unknown, Provider PCP - General 09/11/23 01/28/24 documented as of this encounter
--- OUTSIDE RECORDS SUMMARY | 2024-03-22 16:35 | XMS_ITS | Encounter Summary ---
Author Organization [facility] Health Address [address] [facility] [place] [address] Care Team Providers Care Brainer Name Role Phone Unknown, Provider Primary Care Provider Unavaila ble Encounter Details Date Type Department Care Team (Latest Contact Info) Description 01/10/2024 Travel Social History Tobacco Use Types Packs/Day [...] Recorded Patient Health Questionnaire-2 Score 1 11/26/2023 [facility] [place] of Occupat ional Health - Occupational Stress [...] in a care home (including now)? No 11/27/2023 Education Answer Date [...] st Contact Info) Description 04/04/2024 8:30 AM DRIVER LICENSE EXAMINER Office Visit [facility] - Dermatology [address] [place] [address], [place] [phone] Marlys Zaragoza MD [address] [place] [address] [address]L [place] [phone] 09/03/2024 9:00 AM CDT Office Visit [facility] - Neurology [address] [place] [address], [place] [phone] Melissa Crook, PNEUMATIC SYSTEM CONVEYOR OPERATOR-EQUIPMENT HIRE MANAGER [address] [place] [phone] documented as of this encounter Visit Diagnoses Not on filedocumented in this encounter Care Teams Brainer Relationship Specialty Start Date End Date Unknown, Provider PCP - General 09/11/23 01/28/24 documented as of this encounter
--- OUTSIDE RECORDS SUMMARY | 2024-03-22 16:35 | XMS_ITS | Encounter Summary ---
Author Organization [facility] Health Address [address] [facility] [place] [address] Care Team Providers Care Marine Reporter Name Role Phone A, Unknown Practice Primary Care Provider [phone] Reason for Referral * Radiology Services (Routine) - Closed Specialty Diagnoses / Procedures Referred By Nicole t Referred To Contact MRI Diagnoses MS (multiple sclerosis) (HCC) Procedures MRI CERVICAL SPINE WWO Karen Jimenes MD [address] [place] [address] [facility] Mri [address] [place] [address] Referral ID Status Reason Start Date Expiration Date Visits Re quested Visits Authorized [id number] Closed 07/03/2023 12/31/2023 1 1 Reason for Visit * Radiology Services (Routine) - Closed Specialty Diagnoses / Procedures Referred By Contac t Referred To Contact MRI Diagnoses MS (multiple sclerosis) (HCC) Procedures MRI CERVICAL SPINE WWO Karen Jimenes MD [address] [place] [address] [facility] Mri [address] [place] [address] Referral ID Status Reason Start Date Expiration Date Visits Re quested Visits Authorized [id number] Closed 07/03/2023 12/31/2023 1 1 Encounter Details Date Type Department Care Team (Latest Contact Info) Description 07/11/2023 1:56 PM CDT - 07/11/2023 11:59 PM CDT Hospital Encounter [facility] MRI [address] [place] [address] Karen Reyes MD [address] [place] [address] Discharge Disposition: Home or Self Care Social History Tobacco Use Types Packs/Day Years [...] Patient Health Questionnaire-2 Score 1 03/02/2023 [facility] of Occupat ional Health - Occupational Stress [...] slept in a correction (including now)? No 11/21/2022 Education Answer Date [...] No 11/21/2022 documented as of this encounter Medications at Time of Discharge Medication Sig Dispensed Refills Start Date End Date acetaminophen (Tylenol) 500 MG tablet Take 1 (one) tablet by mouth every 6 hours as needed for Fever or Pain Maximum allowable Acetaminophen amount = 4 Grams (4000 mg) / 24 hours. 30 tablet 5 03/16/2023 12/14/2023 ARIPiprazole (Abilify) 5 MG tabletIndications:Ma donna Depressive Disorder Take 1 (one) tablet by mouth at bedtime for 90 days Reasons: Major Depressive Disorder 30 tablet 2 06/01/2023 12/14/2023 baclofen (Lioresal) 10 MG tablet TAKE 1 TABLET BY MOUTH TWICE DAILY FOR MUSCLE SPASMS. MAY CAUSE DROWSINESS 180 tablet 2 05/02/2023 12/14/2023 benzoyl peroxide (Benzac) 10 % washIndications:Acne vulgaris Use as wash 1-2 times daily. 148 mL 11 03/23/2023 09/21/2023 brivaracetam (Briviact) 75 MG tabletIndications:Se izures ([facility]) Take 2 (two) tablets by mouth 2 times daily 120 tablet 5 04/12/2023 09/11/2023 budesonide-formotero l (Symbicort) 160-4.5 MCG/ACT inhaler Inhale 2 (two) puffs by mouth 2 times daily for 30 days 6 g 12/08/2022 12/14/2023 docusate sodium (Colace) 100 MG capsule Take 1 (one) capsule by mouth every 12 hours 02/16/2023 12/14/2023 escitalopram (Lexapro) 10 MG tablet Take 1 (one) tablet by mouth once daily 90 tablet 06/01/2023 08/31/2023 escitalopram (Lexapro) 20 MG tabletIndications:Pr emenstrual Dysphoric Disorder Take 1 (one) tablet by mouth once daily Reasons: Premenstrual Disorder with a State of Unhappiness 90 tablet 06/01/2023 08/31/2023 fluticasone propionate (Flonase) 50 MCG/ACT nasal spray [place] 2 (two) sprays into each nostril once daily Make sure to shake bottle first 03/16/2023 12/14/2023 folic acid (Folvite) 1 MG tablet Take 1 (one) tablet by mouth once daily 90 tablet 3 04/12/2023 09/11/2023 hydrOXYzine HCl (Atarax) 50 MG tabletIndications:MS (multiple sclerosis) ([facility]) Take on tablet 1 hour prior to MRI. May repeat once 30 minutes prior if needed. 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 Take 1 (one) tablet by mouth once daily as needed for Pain 30 tablet 5 06/13/2023 12/14/2023 lacosamide (Vimpat) 200 MG tabletIndications:Se izyonathan (HCC) Take 1 (one) tablet by mouth 2 times daily 60 tablet 5 04/12/2023 09/11/2023 onabotulinumtoxin A (BOTOX) 100 units injectionIndications :Migraine Inject 155 (one hundred fifty five) Units into muscle Every 90 days Reasons: Migraine Headache 2 Each 1 06/13/2023 12/14/2023 onabotulinumtoxin A (BOTOX) 100 units injectionIndications :Migraine Inject 155 (one hundred fifty five) Units into muscle Every 90 days Reasons: Migraine Headache 2 Each 1 03/16/2023 12/14/2023 pantoprazole EC (Protonix) 40 MG tablet 06/21/2023 12/14/2023 traZODone (Desyrel) 50 MG tablet TAKE 1 TABLET BY MOUTH EVERY NIGHT NEEDED FOR INSOMNIA 30 tablet 03/06/2023 09/11/2023 tretinoin (Retin-A) 0.05 % cream APPLY PEA SIZED AMOUNT TOPICALLY TO FACE AT NIGHT 20 g 11 01/29/2023 09/21/2023 Ventolin HFA 108 (90 Base) MCG/ACT inhaler Inhale 2 (two) puffs by mouth every 4 hours as needed for Shortness of Breath 6.7 g 12/08/2022 12/14/2023 zonisamide (Zonegran) 100 MG capsuleIndications:F ocal Epilepsy Take 5 (five) capsules by mouth at bedtime Reasons: Focal Epilepsy 150 capsule 11 04/12/2023 09/11/2023 documented as of this encounter Plan of Treatment Upcoming Encounters Date Type Department Care Team (Late st Contact Info) Description 04/04/2024 8:30 AM PAYROLL DIRECTOR Office Visit [facility] - Dermatology [address] [place] [address], [facility] [place] [phone] Marlys Zaragoza MD [address] [place] [address] 3 [place] [address] 09/03/2024 9:00 AM CDT Office Visit [facility] - Neurology [address] [facility], [place] [phone] Melissa Crook APRN-FRANCHISE FIELD CONSULTANT [address] [place] [phone] documented as of this encounter Procedures Procedure Name Priority Date/Time Associated Diagnosis Comments MRI CERVICAL SPINE WWO CONT Routine 07/11/2023 3:36 PM CDT MS (multiple sclerosis) (HCC) documented in this encounter Results * MRI CERVICAL SPINE WWO CONT (07/11/2023 3:36 PM CDT) Anatomical Region Laterality Modality Spine Magnetic Resonan [...] outlined. > Dictated by Seng Acevedo DO (Non Morse Intercept Technician) IDamon MD have personally reviewed and interpreted this examination/study. > Interpreting Provider: Damon Townsend MD on 07/11/2023 6:59 PM Narrative 07/11/2023 6:59 PM CDT PROCEDURE: ??MRI BRAIN WWO CONTRAST, MRI CERVICAL SPINE WWO CONT, DATE/TIME OF EXAM: ??07/11/2023 3:36 PM, LOCATION ??[facility] INDICATION: G35: MS (multiple sclerosis) (HCC) ADDITIONAL CLINICAL INFORMATION: Ordering Provider Reason For [...] CONT,DATE/TIME OF EXAM: 07/11/2023 3:36 PM, LOCATION [facility] INDICATION: G35: MS (multiple sclerosis) ([facility]) ADDITIONAL CLINICAL INFORMATION: Ordering Provider Reason For [...] outlined. > Dictated by Seng Acevedo DO (Non Morse Intercept Technician) Damon Ahuja MD have personally reviewed and interpretedthis examination/study. > Interpreting Provider: Damon Townsend MD on 07/11/2023 6:59 PM Karen Reyes MD MR ORDERABLES documented in this encounter Visit Diagnoses Diagnosis MS (multiple sclerosis) (HCC) Multiple sclerosis documented in this encounter Care Teams Marine Reporter Relationship Specialty Start Date End Date A, Unknown Practice [address] [place], [place] [phone] PCP - General 05/11/23 09/10/23 documented as of this encounter
--- OUTSIDE RECORDS SUMMARY | 2024-03-22 16:35 | XMS_ITS | Encounter Summary ---
Author Organization [facility] Health Address [address] [place] [address] Care Team Providers Care Apparel Stock Checker Name Role Phone A, Unknown Practice Primary Care Provider [phone] Encounter Details Date Type Department Care Team (Latest Contact Info) Description 07/03/2023 Travel Social History Tobacco Use Types Packs/Day [...] Recorded Patient Health Questionnaire-2 Score 1 03/02/2023 [facility] of Occupat ional Health - Occupational Stress [...] place to sleep or slept in a fdc (including now)? No 11/21/2022 Education Answer Date [...] st Contact Info) Description 04/04/2024 8:30 AM BILLING MANAGER Office Visit [facility] Derm[facility] [address] [place] [address], [place] [phone] Marlys Zaragoza MD [address] [facility] 3L [place] [address] 09/03/2024 9:00 AM CDT Office Visit [facility] - Neurology [address] [place] [address], [place] [phone] Melissa Crook APRN-CLOSING AGENT [address] [place] [address] documented as of this encounter Visit Diagnoses Not on filedocumented in this encounter Care Teams Apparel Stock Checker Relationship Specialty Start Date End Date A, Unknown Practice [address] [place] [address] PCP - General 05/11/23 09/10/23 documented as of this encounter
--- OUTSIDE RECORDS SUMMARY | 2024-03-22 16:35 | XMS_ITS | Encounter Summary ---
Author Organization [facility] Health Address [address] [facility] [place] [address] Care Team Providers Care Community Educator Name Role Phone A, Unknown Practice Primary Care Provider [phone] Reason for Referral * Radiology Services (Routine) - Closed Specialty Diagnoses / Procedures Referred By Nicole shipley Referred To Contact MRI Diagnoses MS (multiple sclerosis) (HCC) Procedures MRI BRAIN WWO CONTRAST Karen Reyes MD [facility] [place] [address] [facility] Mri [address] [place] [address] Referral ID Status Reason Start Date Expiration Date Visits Re quested Visits Authorized [id number] Closed 07/03/2023 12/31/2023 1 1 Reason for Visit * Radiology Services (Routine) - Closed Specialty Diagnoses / Procedures Referred By Nicole shipley Referred To Contact MRI Diagnoses MS (multiple sclerosis) (HCC) Procedures MRI BRAIN WWO CONTRAST Karen Reyes MD [address] [place] [address] [facility] Mri [address] [place] [address] Referral ID Status Reason Start Date Expiration Date Visits Re quested Visits Authorized [id number] Closed 07/03/2023 12/31/2023 1 1 Encounter Details Date Type Department Care Team (Latest Contact Info) Description 07/11/2023 1:56 PM CDT - 07/11/2023 11:59 PM CDT Hospital Encounter [facility] MRI [address] [place] [phone] Karen Reyes MD [address] [place] [phone] Discharge Disposition: Home or Self Care Social [...] Recorded Patient Health Questionnaire-2 Score 1 03/02/2023 [facility] of Occupat ional Health - [...] place to sleep or slept in a chcf (including now)? No 11/21/2022 Education Answer Date [...] 09/21/2023 brivaracetam (Briviact) 75 MG tabletIndications:Se izures ([facility]) Take 2 (two) tablets by mouth 2 [...] fluticasone propionate (Flonase) 50 MCG/ACT nasal spray [place] 2 (two) sprays into each nostril once daily Make sure to shake bottle first 03/16/2023 12/14/2023 folic acid (Folvite) 1 MG tablet Take 1 (one) tablet by mouth once daily 90 tablet 3 04/12/2023 09/11/2023 hydrOXYzine HCl (Atarax) 50 MG tabletIndications:MS (multiple sclerosis) ([facility]) Take on tablet 1 hour prior to MRI. May repeat once 30 minutes prior if needed. 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 Take 1 (one) tablet by mouth once daily as needed for Pain 30 tablet 5 06/13/2023 12/14/2023 lacosamide (Vimpat) 200 MG tabletIndications:Se izures (HCC) Take 1 (one) tablet by mouth [...] Contact Info) Description 04/04/2024 8:30 AM CLINICAL ENGINEER Office Visit [facility] - Dermatology [address] [place] [address], [facility] [place] [phone] Marlys Zaragoza MD [address] [place] [address] 3 [place] [address] 09/03/2024 9:00 AM CDT Office Visit [facility] - Neurology [address] [facility], [place] [address] Melissa Crook, LISETTE-MACHINE SKIVER [address] [place] [address] documented as of this encounter Procedures Procedure Name Priority Date/Time Associated Diagnosis Comments MRI BRAIN WWO CONTRAST Routine 07/11/2023 3:35 PM CDT MS (multiple sclerosis) (HCC) CREATININE - POCT INTERFACED Routine 07/11/2023 2:32 PM CDT documented in this encounter Results * MRI BRAIN WWO CONTRAST (07/11/2023 3:35 PM CDT) Anatomical Region Laterality Modality Head Magnetic Resonan [...] outlined. > Dictated by Seng Acevedo DO (Vice President Of Advertising) Damon Ahuja MD have personally reviewed and interpreted this examination/study. > Interpreting Provider: Damon Townsend MD on 07/11/2023 6:59 PM Narrative 07/11/2023 6:59 PM CDT PROCEDURE: ??MRI BRAIN WWO CONTRAST, MRI CERVICAL SPINE WWO CONT, DATE/TIME OF EXAM: ??07/11/2023 3:36 PM, LOCATION ??[facility] INDICATION: G35: MS (multiple sclerosis) (HCC) ADDITIONAL [...] CONT,DATE/TIME OF EXAM: 07/11/2023 3:36 PM, LOCATION [facility] INDICATION: G35: MS (multiple sclerosis) ([facility]) ADDITIONAL CLINICAL INFORMATION: Ordering Provider Reason For [...] outlined. > Dictated by Seng Acevedo DO (Vice President Of Advertising) Damon Ahuja MD have personally reviewed and interpretedthis examination/study. > Interpreting Provider: Damon Townsend MD on 07/11/2023 6:59 PM Karen Reyes MD MR ORDERABLES * CREATININE - POCT INTERFACED (07/11/2023 2:32 PM CDT) Creatinine POCT 0.76 0.30 - 1.30 mg/dL 07/11/2023 2:50 PM CDT [facility] eGFR >90 >=90 mL/min/1.7 3 m2 07/11/2023 2:50 PM CDT [facility] Blood BLOOD SPECIMEN / Unknown 07/11/2023 2:32 PM CDT 07/11/2023 2:50 PM CDT Karen Reyes MD LAB - POINT OF CARE ORDERABLES Performing Organization Address City/State/[facility] Co de Phone Number [facility] [address] [place] [address], [facility] [phone] documented in this encounter Visit Diagnoses Diagnosis MS (multiple sclerosis) (HCC) Multiple sclerosis documented in this encounter Administered Medications Inactive Administered Medications - up to 3 most recent administrations Medication Order MAR Action Action Date Dose Rate Site gadobutrol (Gadavist) injection Intravenous, CONTRAST ONCE, Starting on Sun07/11/23 at 1517, Until Sun07/12/23 at 0122 $ Given - Contrast 07/11/2023 3:17 PM CDT 6 mL documented in this encounter Care Teams Community Educator Relationship Specialty Start Date End Date A, Unknown Practice [address] [place] [address] PCP - General 05/11/23 09/10/23 documented as of this encounter
--- OUTSIDE RECORDS SUMMARY | 2024-03-22 16:35 | XMS_ITS | Encounter Summary ---
Author Organization [facility] Health Address [address] [place] [address] Care Team Providers Care Community Services Officer Name Role Phone A, Unknown Practice Primary Care Provider Encounter Details Date Type Department Care Team (Latest Contact Info) Description 05/11/2023 Travel Social History Tobacco Use Types Packs/Day [...] Recorded Patient Health Questionnaire-2 Score 1 03/02/2023 [facility] [place] of Occupat ional Health - Occupational Stress [...] st Contact Info) Description 04/04/2024 8:30 AM FRANCHISE SALES DIRECTOR Office [facility] [address] [place] [address], [place] [phone] Marlys Zaragoza MD [address] [facility] [address]L [place] [address] 09/03/2024 9:00 AM CDT Office Visit [facility] - Neurology [address] [place] [address], [place] [phone] Melissa Crook APRN-HAND SEWER SHOES [address] [place] [address] documented as of this encounter Visit Diagnoses Not on filedocumented in this encounter Care Teams Community Services Officer Relationship Specialty Start Date End Date A, Unknown Practice [address] [place] [address] PCP - General 05/11/23 09/10/23 documented as of this encounter
--- OUTSIDE RECORDS SUMMARY | 2024-03-22 16:35 | XMS_ITS | Encounter Summary ---
Author Organization [facility] Health Address [address] [place] [address] Care Team Providers Care Customer Care Team Coach Name Role Phone Unknown, Provider Primary Care Provider Unavaila ble Encounter Details Date Type Department Care Team (Latest Contact Info) Description 10/31/2023 Travel Social History Tobacco Use Types Packs/Day [...] Recorded Patient Health Questionnaire-2 Score 0 08/31/2023 [facility] [place] of Occupat ional Health - Occupational Stress [...] in a senior living (including now)? No 11/21/2022 Education Answer Date [...] st Contact Info) Description 04/04/2024 8:30 AM PROFESSOR OF FINE ART Office Visit [facility] - Dermatology [address] [place] [address], [place] [address] Marlys Zaragoza MD [address] [place] [address] 3L [place] [address] 09/03/2024 9:00 AM CDT Office Visit [facility] - Neurology [address] [place] [address], [place] [phone] Melissa Crook, MATERIALS AND CORROSION ENGINEER-PLANNING ANALYST [address] [place] [phone] documented as of this encounter Visit Diagnoses Not on filedocumented in this encounter Care Teams Customer Care Team Coach Relationship Specialty Start Date End Date Unknown, Provider PCP - General 09/11/23 01/28/24 documented as of this encounter
--- OUTSIDE RECORDS SUMMARY | 2024-03-22 16:35 | XMS_ITS | Encounter Summary ---
Author Organization [facility] Health Address [address] [place] [address] Care Team Providers Care Heel Stiffener Name Role Phone Unknown, Provider Primary Care Provider Unavaila ble Encounter Details Date Type Department Care Team (Latest Contact Info) Description 11/05/2023 Travel Social History Tobacco Use Types Packs/Day [...] Recorded Patient Health Questionnaire-2 Score 0 08/31/2023 [facility] [place] of Occupat ional Health - Occupational Stress [...] st Contact Info) Description 04/04/2024 8:30 AM FRUIT AND VEGETABLE INSPECTOR Office Visit [facility] - Dermatology [address] [place] [address], [place] [address] Marlys Zaragoza MD [address] [place] [address] [address] [place] [address] 09/03/2024 9:00 AM CDT Office Visit [facility] - Neurology [address] [place] [address], [place] [phone] Melissa Croko, LEATHER ROLLER-FX ARTIST [address] [place] [address] documented as of this encounter Visit Diagnoses Not on filedocumented in this encounter Care Teams Heel Stiffener Relationship Specialty Start Date End Date Unknown, Provider PCP - General 09/11/23 01/28/24 documented as of this encounter
--- OUTSIDE RECORDS SUMMARY | 2024-03-22 16:35 | XMS_ITS | Encounter Summary ---
Author Organization [facility] Health Address [address] [place] [address] Care Team Providers Care Snap Attacher Name Role Phone Unknown, Provider Primary Care Provider Unavaila ble Encounter Details Date Type Department Care Team (Latest Contact Info) Description 09/11/2023 Travel Social History Tobacco Use Types Packs/Day [...] Recorded Patient Health Questionnaire-2 Score 0 08/31/2023 [facility] [place] of Occupat ional Health - Occupational Stress [...] place to sleep or slept in a longterm (including now)? No 11/21/2022 Education Answer Date [...] st Contact Info) Description 04/04/2024 8:30 AM WOOD GETTER Office Visit [facility] - Dermatology [address] [place] [address], [place] [address] Marlys Zaragoza MD [address] [place] [address] [address] [place] [address] 09/03/2024 9:00 AM CDT Office Visit [facility] - Neurology [address] [place] [address], [place] [address] Melissa Crook, PRIMARY HEALTH ORGANISATION MANAGER-HEARING SCREENER [address] [place] [phone] documented as of this encounter Visit Diagnoses Not on filedocumented in this encounter Care Teams Snap Attacher Relationship Specialty Start Date End Date Unknown, Provider PCP - General 09/11/23 01/28/24 documented as of this encounter
--- OUTSIDE RECORDS SUMMARY | 2024-03-22 16:35 | XMS_ITS | Encounter Summary ---
Author Organization [facility] Health Address [address] [facility] [place] [address] Care Team Providers Care Appeals Writer Name Role Phone Joy Sheppard PA-C Primary Care Provider + [phone] Reason for Visit * Reason Onset Date Comments Medication Issue 01/29/2024 Encounter Details Date Type Department Care Team (Late st Contact Info) Description 01/29/2024 Telephone [facility] NEURO&PSYCH [address] [place] [address] Michell Cortez MD [address] [facility] [place] [address] Medication Issue Social History Tobacco Use Types Packs/Day Years [...] Recorded Patient Health Questionnaire-2 Score 1 11/26/2023 [facility] [place] of Occupat ional Health - Occupational Stress [...] slept in a usp (including now)? No 11/27/2023 Education Answer Date [...] Yes 11/27/2023 documented as of this encounter Miscellaneous Notes * Telephone Encounter - Michell Cortez MD - 01/29/2024 1:00 PM CST Called patients guardian Serg, in regards to her [employer] message. Reports the weekend after she got discharged, she would not sleep would not eat, stayed awake 72 hours that weekend after she got discharged. She was wandering around at 5am on Sunday morning and that police commissioner recommended psychiatric care and drove [place] [facility] and took to [facility]. I had three calls that morning, that the windows were talking to her and her friend was in the ICU in some hospital dying. Two doctors and nurse calling me and there was no truth to that but that's all she was talking to. She was more delusional than I had ever seen her. She was there for a whole another two weeks and I picked her up two weeks later on a Sunday. They started her on risperidone and she's contorted again, they made it sound like it was an additive on Abilify but they didn't give her the abilify VEGA when she was due on discharge. Now taking Risperdal 2 mg tablets once a day. She's leaning to the side from the hip up and she was like that when she was on haldol. Noticed it maybe one week out after discharge, she has been staying with my girlfriend. During her psychiatric stay she missed her infusion for MS, but she got yesterday. She is hard, it is so hard, you can't reason with her, she is better on the risperidone. After the first one I was so beside myself. I actually brought her to [place] last week and she was better. She's staying withmy girlfriend up there, now looking for a residental facility since she got kicked out of her apartment. They might have given her cogentin when she was on haldol. SW from [facility] never followed up on generator technician. Trying to follow up with [facility] right now. I've been told that patients like meredith that have no insight into her disease, theres rare to ever that patient ever have insight, but I was holding out hope that she would. Otherwise discussed Congetin and refilling risperdal and she was agreeable. . Michell Cortez M.D PGY-2 Department of Psychiatry and Behavioral Neuroscience SLIP COVER INSTALLER documented in this encounter Plan of Treatment Upcoming Encounters Date Type Department Care Team (Late st Contact Info) Description 04/04/2024 8:30 AM AUTO SLIP COVER INSTALLER Office Visit [facility] - Dermatology [address] [place] [address], [place] [phone] Marlys Zaragoza MD [address] [place] [address] [address] [place] [phone] 09/03/2024 9:00 AM CDT Office Visit [facility] - Neurology [address] [place] [phone] Melissa Crook, LISETTE-SENIOR STORAGE ADMINISTRATOR [address] [place] [phone] documented as of this encounter Visit Diagnoses Not on filedocumented in this encounter Care Teams Appeals Writer Relationship Specialty Start Date End Date Joy Sheppard PA-C [address] [place] [phone] PCP - General 01/29/24 documented as of this encounter
--- OUTSIDE RECORDS SUMMARY | 2024-03-22 16:35 | XMS_ITS | Encounter Summary ---
Author Organization [facility] Health Address [address] [facility] [place] [address] Care Team Providers Care Hospitalist Name Role Phone Unknown, Provider Primary Care Provider Unavaila ble Reason for Visit * Reason Comments Establish Care 5month seizure Encounter Details Date Type Department Care Team ([facility] Contact Info) Description 09/11/2023 9:00 AM CDT Office Visit [facility] - Neurology [address] [place] [phone] Melissa Greer APRN-COMPOSITION FLOOR LAYER [address] [place] [phone] Seizures (HCC) (Primary Dx) Social History Tobacco Use Types [...] Recorded Patient Health Questionnaire-2 Score 0 08/31/2023 [facility] [place] [facility] Occup[facility] ional Health - Occupational Stress [...] Sign Reading Time Taken Comments Blood Pressure 121/74 09/11/2023 8:28 AM CDT Pulse 108 09/11/2023 8:28 AM CDT Temperature 36 ??C (96.8 ??F) 09/11/2023 8:28 AM CDT Respiratory Rate - - Oxygen Saturation 98% 09/11/2023 8:28 AM CDT Inhaled Oxygen Concentration - - Weight 62.1 kg (137 lb) 09/11/2023 8:28 AM CDT Height 165.1 cm (5' 5 ) 09/11/2023 8:28 AM CDT Body Mass Index 22.8 09/11/2023 8:28 AM CDT documented in this encounter Functional [...] as of this encounter Progress Notes * Melissa Greer APRN-COMPOSITION FLOOR LAYER - 09/11/2023 9:00 AM CDT Epilepsy Clinic Note PCP Unknown Practice A DATE OF ENCOUNTER: 09/11/2023 CHIEF COMPLAINT: Seizures AGE OF ONSET 24 years old SEMIOLOGY - Aura Lightheaded, flushed Duration: <10 minutes Frequency: 1-2 times per month - Ictus #1.) Generalized tonic clonic, LOC, foaming at mouth Duration: 1-2 minutes Frequency: every few months? (previously controlled for 10+ years til 04/15/19) - Post-ictus Sleepy, fatigue, confusion SEIZURE CONTROL Aura: 01/23/2023, 01/22/2023, 01/08/2023 Date of last seizure 05/01/2022 PRE-VISIT MEDICATION Name Pill Size Frequency Total/Day Level Zonisamide 100 0-5 500mg/day 19.5 (05/12) Lacosamide 200mg 1-1 400mg/day 7.3 (05/12) Briviact 75mg 2-2 300mg/day Folic acid 1mg 1-0 1mg/day COMPLIANCE Good AGGRAVATING FACTORS: infections (UTIs), stress TREATMENT HISTORY Name Allergy/Side Effects/Ineffectiveness Topamax Memory problems EE02/03/2021: [facility] (Dr. Terrell) Interpretation: This is an abnormal EEG due to 1) left frontotemporal epileptiform discharges, 2) left hemispheric slowing maximal around the left temporal region, and 3) mild to moderate generalized slowing. 01/03/2021: [facility] (Dr. Angel) Impression: Abnormal EEG. Left frontal spike and wave and focal slowing, still present, but much less frequent with more return to normal background than seen on previous EEG. No seizure like activity was observed. Correlation with clinical findings is Needed. 12/31/2020: [facility] (Dr. Angel) Impression: Abnormal EEG. Left frontotemporal discharges with focal slowing, suggests likely epileptogenicity from this region. No clinical seizures were seen. Correlation with clinical findings is needed. 04/15/2019: [facility] IMPRESSION: Normal awake and drowsy record IMAGIN05/13/2022: MRI Brain [facility]WO Contrast: [facility] IMPRESSION: 1.Multiple intracranial white matter lesions compatible with multiple sclerosis. No new T2 lesions and no new enhancing lesions to suggest active demyelination. Moderate parenchymal volume loss, advanced for the patient's stated age. NEUROPSYCHOLOGICAL EVALUATION: 07/03/2023 (Dr. Lane): In sum, the present profile continues to be consistent with the diagnosis of Major Neurocognitive Disorder. Etiology is likely multifactorial with contribution from her MS, epilepsy, daily marijuanause, and possible schizophrenia vs other psychotic disorder. Continued management of her psychiatric status will be essential for her maintaining/improving overall clinical picture. 09/12/21 (Dr. Cantu) In sum, Ms. Frost is improved or stable performances relative to her 2018 and 2020 evaluations despite, again having presented to this appointment following use of cannabis on the same day. Her reduced judgement and cognitive profile with widespread dysfunction, along with needing assistance with many IADLs remains consistent with a diagnosis of Major Neurocognitive Disorder. Etiology is likely multifactorial with contribution from her MS, epilepsy, daily marijuana use, and possible schizophrenia vs other psychotic disorder. Continued management of her psychiatric status will be essential forher maintaining/improving overall clinical picture. CLASSIFICATION: Epilepsy, likely focal LABORATORY RESULTS CBC: Recent Labs Component Name 05/11/23 1516 11/21/22 1242 06/21/22 1321 WBC 8.2 9.5 7.1 HGB 11.2* 10.9* 10.1* PLTCOUNT 385 411* 572* BMP: Recent Labs Component Name 05/11/23 1516 11/21/22 1242 06/21/22 1321 04/12/22 1337 06/29/21 1410 05/13/21 1509 NA - 138 - - 141 140 CO2 25 21* 25 - 24 21* CREATININE 0.66 0.60 0.60 - 0.66 0.72 - = values in this interval not displayed. LFT: Recent Labs Component Name 05/11/23 1516 11/21/22 1242 06/21/22 1321 AST 10 12 24 ALT 7 11 25 VITAMIN D: Recent Labs Component Name 05/22/18 1040 03/09/17 1445 11/28/16 1333 BCKU77EO 43.5 41 48 Recent Labs Component Name 05/11/23 1516 06/21/22 1254 04/12/22 1337 ZONISAMIDE 19.5 23.9 20.2 No results for input(s): TOPIRAMATE in the last 18859 hours. Recent Labs Component Name 11/21/22 1438 05/16/19 1159 LEVETIRACETM 20 17.5 No results for input(s): OXCARBAMETAB in the last 68264 hours. Recent Labs Component Name 05/11/23 1516 06/21/22 1254 04/12/22 1337 LACOSAMIDE 7.3 8.5 7.3 HPI: History of Epilepsy: Meredith Frost is a 42 year old female referred to [facility] Epilepsy clinic for seizures. PMH migraines, MS, COPD, asthma, anxiety, paranoid schizophrenia, polysubstance abuse, depression, and epilepsy. Seizure age of onset around 24 years old. Previously treated with Zonisamide 400mg nightly. Patient was seizure free for 10+year, with breakthrough seizures in 2020 Lacosamide was added and Zonisamide increased to 500mg. Breakthrough seizure on 05/01/2022, levetiracetam 500mg BID was added. Patient denies any further seizure since addition of levetiracetam. Patient sees Dr. Haywood in clinic for Migraine management and is receiving Botox injections and sees Dr. Nieto in clinic for management of MS. Patient reports recently completing PT. Will continue current ASM regimen, with any recurrent seizure plan to further optimize levetiracetam. Consider EMU in future for further event characterization/surgical evaluation if seizures do not become controlled with medication management. Prolonged hospitalization from 11/21/2022-12/12/2022 Due to increased aggression and paranoid behavior over last few months. Patient had discontinued her lexapro and this was restarted. While hospitalized B6 was added. Patient reports aura events occurring a few times per month still. Concern levetiracetam adding to mood changes, will transition patient to Briviact. Last visit (12/2022), Levetiracetam was transitioned to Briviact due to mood concerns on levetiracetam. Patient believes this has improved mood. Recurrent aura in 01/2023, Briviact increased to 150mgBID. Patient denies any recurrent events. Today's HPI: Meredith Frost is a 42 year old established with [facility] Epilepsy Clinic, here for a follow-up visit. Last visit was on 04/12/2023, patient remains seizure free on current regimen. Patient completed neuropsychology evaluation on 07/03/2023, In sum, the present profile continues to be consistent with the diagnosis of Major Neurocognitive Disorder. 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 ARIPiprazole (Abilify) 5 MG tablet Take 1 (one) tablet by mouth at bedtime for 90 days Reasons: Major Depressive Disorder baclofen (Lioresal) 10 MG tablet TAKE 1 TABLET BY MOUTH TWICE DAILY FOR MUSCLE SPASMS. MAY CAUSE DROWSINESS benzoyl peroxide (Benzac) 10 % wash Use as wash 1-2 times daily. brivaracetam (Briviact) 75 MG tablet Take 2 (two) tablets by mouth 2 times daily budesonide-formoterol (Symbicort) 160-4.5 MCG/ACT inhaler Inhale 2 (two) puffs by mouth 2 times daily for 30 days docusate sodium (Colace) 100 MG capsule Take 1 (one) capsule by mouth every 12 hours escitalopram (Lexapro) 10 MG tablet Take 1 (one) tablet by mouth once daily escitalopram (Lexapro) 20 MG tablet Take 1 (one) tablet by mouth once daily Reasons: Premenstrual Disorder with a State of Unhappiness fluticasone propionate (Flonase) 50 MCG/ACT nasal spray [place] 2 (two) sprays into each nostril oncedaily Make sure to shake bottle first folic acid (Folvite) 1 MG tablet Take 1 (one) tablet by mouth once daily hydrOXYzine HCl (Atarax) 50 MG tablet Take on tablet 1 hour prior to MRI. May repeat once 30 minutes prior if needed. ibuprofen (Motrin) 800 MG tablet Take 1 (one) tablet by mouth once daily as needed for Pain lacosamide (Vimpat) 200 MG tablet Take 1 (one) tablet by mouth 2 times daily onabotulinumtoxin A (BOTOX) 100 units injection Inject 155 (one hundred fifty five) Units into muscle Every 90 days Reasons: Migraine Headache onabotulinumtoxin A (BOTOX) 100 units injection Inject 155 (one hundred fifty five) Units into muscle Every 90 days Reasons: Migraine Headache pantoprazole EC (Protonix) 40 MG tablet traZODone (Desyrel) 50 MG tablet TAKE 1 TABLET BY MOUTH EVERY NIGHT NEEDED FOR INSOMNIA (Patientnot taking: Reported on 04/12/2023) tretinoin (Retin-A) 0.05 % cream APPLY PEA SIZED AMOUNT TOPICALLY TO FACE AT NIGHT Ventolin HFA 108 (90 Base) MCG/ACT inhaler Inhale 2 (two) puffs by mouth every 4 hours as needed for Shortness of Breath zonisamide (Zonegran) 100 MG capsule Take 5 (five) capsules by mouth at bedtime Reasons: Focal Epilepsy No current facility-administered medications for this visit. Past Medical History: Diagnosis Date Asthma (HCC) Migraines MS (multiple sclerosis) (HCC) PID (pelvic inflammatory disease) Seizures (HCC) Family History Problem Relation Name Age of [...] Neg Hx Psoriasis Neg Hx Social History Socioeconomic History Marital status: Single Spouse name: N/A Number of children: 0 Years of education: 16 Highest education level: Bachelor's degree (e.g., BA, AB, BS) Occupational History Occupation: Disabled Tobacco Use Smoking status: Never Passive exposure: Never Smokeless tobacco: Never Vaping Use Vaping Use: Never used Substance and Sexual Activity Alcohol use: Not Currently Alcohol/week: 8.0 standard drinks of alcohol Types: 6 Cans of beer, 2 Shots of liquor per week Comment: socially 1 X q 6 months Drug use: Yes Frequency: 7.0 times per week Types: Marijuana Comment: Daily Sexual activity: Not Currently Partners: Male Other Topics Concern Service No Blood Transfusions No Caffeine Concern No Occupational Exposure No Hobby Hazards No Sleep Concern No Stress Concern Yes Weight Concern No Special Diet No Back Care No Exercise No Bike Helmet No Seat Belt No Self-Exams No Social History Narrative Has good social support from 2 friends. Social Determinants of Health Financial Resource Strain: Low Risk (11/21/2022) Overall Financial Resource Strain (CARDIA) Difficulty of Paying Living Expenses: Not very hard Food Insecurity: No Food Insecurity (11/21/2022) Hunger Vital Sign Worried About Running Out of Food in the Last Year: Never true Ran Out of Food in the Last Year: Never true Transportation Needs: No Transportation Needs (11/21/2022) PRAPARE - Transportation Lack of Transportation (Medical): No Lack of Transportation (Non-Medical): No Stress: No Stress Concern Present (11/21/2022) [facility] [place] [facility]ational [facility] - Occupational Stress Questionnaire Feeling of Stress : Only a little Housing Stability: Low Risk (11/21/2022) Housing Stability Vital Sign Unable to Pay for Housing in the Last Year: No Number of Places Lived in the Last Year: 0 Unstable Housing in the Last Year: No control no Folic acid no no Alcohol usage no Illicit substance no Marijuana usage yes Physical Exam: BP 121/74 Pulse 108 Temp 96.8 ??F (36 ??C) Ht 1.651 m (5' 5 ) Wt 62.1 kg (137 lb) SpO2 98% Awake and alert responding appropriately to questions and commands, moves all extremities. Assessment/Plan: Meredith Frost is a 42 year old female with history of epilepsy, likely focal. Seizures previously controlled for 10+ years til breakthrough seizure on 04/15/19. Last known seizure was on 05/01/2022, last aura event in 01/2023. Denies any recurrent events on current regimen. MS: - Followed by MS clinic Migraines: -Followed by Dr. Haywood, receives Botox apt Major Neurocognitive Disorder -Completed evaluation on 07/03/2023 f Mood Disorder: -Followed by [facility] Seizures: -Instructed to report any seizure events/auras -Continue Zonisamide 500mg nightly -Continue lacosamide 200mg BID -Continue Briviact 150mg BID -Discussed importance of medication compliance, proper sleep, and staying hydrated -Future consideration: EMU for further event characterization/surgical evaluation if seizures do not become controlled on ASMs. Follow-up in 1 year or sooner if problems arise Patient agrees and voices understanding of plan of care listed above. POST-VISIT MEDICATION (Current as of 09/11/2023) Name Pill Size Frequency Total/Day Level Zonisamide 100 0-5 500mg/day 20.2 (04/10) Lacosamide 200mg 1-1 400mg/day 7.3 (04/10) Briviact 75mg 2-2 300mg/day Folic acid 1mg 1-0 1mg/day I told the patient in clear terms that they should check with their state's DMV regarding the regulations for driving with seizures. In general, we recommend 6 months of seizure freedom and approval by the state before resuming driving. I also recommended that the patient avoid deep tub baths, operating open machinery, climbing to high places, swimming alone, using open fire or using hot objects during the same time frame that they are not driving. I told the patient in clear terms regarding importance of compliance. Seizure precautions include no driving, no tub bathing, no solo swimming, no operating heavy machinery and no working at heights. The patient should not perform any activity in which the patient or others may be harmed if a seizure occurs. I told the patient that all medications can have effect on the fetus, and that all pregnancies mustbe anticipated, and vitamins and folate supplement must be taken during . In addition, I informed that oral contraceptive pills may fail, and alternate method of contraception should be used under supervision of a health researcher. If oral contraception must be used, a higher dosage may be required under supervision of a health researcher. She was instructed to inform the Neurology Clinic in the event of any planned or unplanned . I personally spent 30 minutes on 09/11/2023 preparing to see the patient (e.g. reviewing chart, review of tests), obtaining and/or reviewing the separately obtained history, performing a medically necessary and appropriate examination and evaluation, counseling and educating the patient/family/caregiver, ordering medications, tests, or procedures, documenting in the patient record, and communicating results to the patient/family/caregiver. ADI Robison 09/11/2023 [facility] Neurology documented in this encounter Miscellaneous Notes * Addendum Note - Melissa Greer APRN-CNP - 09/11/2023 11:42 AM CDTAddended by: MELISSA GREER on: 09/11/2023 11:42 AM Modules accepted: Orders, Level of Service documented in this encounter Plan of Treatment Upcoming Encounters Date Type Department Care Team (Late st Contact Info) Description 04/04/2024 8:30 AM SHIPPING TECHNICIAN Office Visit [facility] - Dermatology [address] [place] [address], [place] [address] Marlys Zaragoza MD [address] [place] [address] [address] [place] [address] 09/03/2024 9:00 AM CDT Office Visit [facility] - Neurology [address] [place] [phone] Melissa Greer APRN-COMPOSITION FLOOR LAYER [address] [place] [phone] documented as of this encounter Visit Diagnoses Diagnosis Seizures (HCC)- Primary Other convulsions documented in this encounter Care Teams Hospitalist Relationship Specialty Start Date End Date Unknown, Provider PCP - General 09/11/23 01/28/24 documented as of this encounter
--- OUTSIDE RECORDS SUMMARY | 2024-03-22 16:35 | XMS_ITS | Encounter Summary ---
Author Organization [facility] Health Address [address] [facility] [place] [address] Care Team Providers Care Batch Attendant Name Role Phone A, Unknown Practice Primary Care Provider [phone] Reason for Visit * Reason Comments Blurred Vision Encounter Details Date Type Department Care Team (Late st Contact Info) Description 05/31/2023 8:00 AM CDT Office Visit [facility] [place] [address] [place] [address] [place] [address] [place] [phone] MS (multiple sclerosis) ([facility]) (Primary Dx); Refractive error; Severe myopia of both eyes Social History Tobacco Use Types Packs/Day Years [...] Recorded Patient Health Questionnaire-2 Score 1 03/02/2023 [facility] of Occupat ional Health - Occupational Stress [...] Progress Notes * Tania Velasquez, OD - 05/31/2023 8:58 AM CDT Meredith Frost is a 42 year old female no current vision complaints, pt is here because she would like new glasses. Current pair is working well she would just like a valid rx to get new frames Mild strab amblyopia OS Microstrabismus OS Positive 4 WILD test OS. Small ET OS Nearly 20/20 each eye. OD seems mildly better than OS - stable per pt No history of EOM surgery ?? H/o ANIA per chart (September 2016) Full EOM ranges today. Pt reports occasional flutter OS. ?? Refractive Error Pt wears Acuvue Oasys 1 Day -6.00 OD, -5.50 OS. Pt reports that she has plenty of CLs and they wereno addressed at today's exam Stable spec Rx, gave pt a copy of rx. RTC 1 year or PRN OCT at next * Tania Velasquez, OD - 05/31/2023 8:43 AM CDT HPI Chief Complaint Patient presents with ??? Blurred Vision Pt states vision is blurry without her glasses and she would like a new pair today, Pt states that she has plenty of CL and is not here for that today. Pt denies presence of itchiness, redness, dryness Pt denies flashes and flaoters The following was also reviewed and updated: [...] fluticasone propionate (Flonase) 50 MCG/ACT nasal spray Jolon 2 (two) sprays into each nostril once [...] Past Medical History: Diagnosis Date ??? Asthma (HCC) ??? Migraines ??? MS (multiple sclerosis) (HCC) ??? PID (pelvic inflammatory disease) ??? Seizures (HCC) Past Surgical History: Procedure Laterality Date ??? KNEE ARTHROPLASTY Right ??? GA CHEMODENERV MUSC MIGRAINE 07/18/2017 ??? GA CHEMODENERV MUSC MIGRAINE 10/17/2017 ??? GA CHEMODENERV MUSC MIGRAINE 01/14/2018 ??? GA CHEMODENERV MUSC MIGRAINE 04/15/2018 ??? GA CHEMODENERV MUSC MIGRAINE 07/22/2018 ??? GA CHEMODENERV MUSC MIGRAINE 10/21/2018 ??? GA CHEMODENERV MUSC MIGRAINE 10/13/2019 ??? GA CHEMODENERV MUSC MIGRAINE 01/12/2020 ??? GA CHEMODENERV MUSC MIGRAINE 04/19/2020 ??? GA CHEMODENERV MUSC MIGRAINE 07/21/2020 ??? GA CHEMODENERV MUSC MIGRAINE 11/01/2020 ??? GA CHEMODENERV MUSC MIGRAINE 02/14/2021 ??? GA CHEMODENERV MUSC MIGRAINE 07/13/2021 ??? GA CHEMODENERV MUSC MIGRAINE 10/21/2021 ??? GA CHEMODENERV MUSC MIGRAINE 01/18/2022 ??? GA CHEMODENERV MUSC MIGRAINE 05/05/2022 ??? GA CHEMODENERV MUSC MIGRAINE 09/08/2022 ??? GA CHEMODENERV MUSC MIGRAINE 03/16/2023 ??? Tonsillectomy Bilateral [...] Linear) Right Left Dist cc 20/20 20/25 -2 Correction: Glasses Tonometry (8:23 AM) Right Left Pressure 14 14 Pupils Pupils APD Right PERRL None Left PERRL None Visual De Left Right Full Full Extraocular Movement Right Left Full Full Neuro/Psych Oriented x3: Yes Mood/Affect: Normal Dilation Both eyes: 1.0% Mydriacyl @ 8:23 AM Refraction Wearing Rx Sphere Cylinder Wallace Right -6.50 -0.75 025 Left -6.00 -0.50 150 Type: SVL Manifest Refraction Sphere Cylinder Wallace Dist VA Right -6.50 -0.75 025 20/20 Left -6.25 -0.75 150 20/20 Final Rx Sphere Cylinder Wallace Dist VA Right -6.50 -0.75 025 20/20 Left -6.25 -0.75 150 20/20 Study findings: Assessment/Plan LEVI: ATs prn ?? Mild strab amblyopia OS Microstrabismus OS Positive 4 WILD test OS. Small ET OS Nearly 20/20 each eye. OD seems mildly better than OS - stable per pt No history of EOM surgery ?? MS - normal ocular exam today H/O ANIA per chart Full EOM ranges today, denies eye pain, denies double vision, per chartLcolor plates full OD, missed 2 OS in the past Pt reports last flare up was a long time ago (2017 per chart Baseline OCT at next, baseline VF when time permits High myopia Retinal detachment warning signs reviewed - pt encouraged to call immediately if notices hundreds of black spots, flashes of lights, new floaters, or a sensation that a curtain is coming down overvision. Per chart - history of high risk med, not taking ethambutol or plaquenil now Plan New glasses Rx RTC 1 yr Tania Velasquez, FRANCHESCA documented in this encounter Plan of Treatment Upcoming Encounters Date Type Department Care Team (Late st Contact Info) Description 04/04/2024 8:30 AM WARD AIDE Office Visit [facility] - Dermatology [address] [place] [address], [place] [phone] Marlys Zaragoza MD [address] [place] [address] [place] [phone] 09/03/2024 9:00 AM CDT Office Visit [facility] - Neurology [address] [place] [address], [place] [phone] Melissa Crook, LISETTE-DRIVER EDUCATION INSTRUCTOR [address] [place] [address] documented as of this encounter Visit Diagnoses Diagnosis MS (multiple sclerosis) (HCC)- Primary Multiple sclerosis Refractive error Unspecified disorder of refraction and accommodation Severe myopia of both eyes Myopia documented in this encounter Care Teams Batch Attendant Relationship Specialty Start Date End Date A, Unknown Practice [address] [place] [address] PCP - General 05/11/23 09/10/23 documented as of this encounter
--- OUTSIDE RECORDS SUMMARY | 2024-03-22 16:35 | XMS_ITS | Encounter Summary ---
Author Organization [facility] Health Address [address] [place] [address] Care Team Providers Care Pipeliner Name Role Phone Unknown, Provider Primary Care Provider Unavaila ble Reason for Visit * Reason Onset Date Comments Follow-up 10/29/2023 Called both numb ers provided on account and sent a [employer] message in order to schedule appointment. Encounter Details Date Type Department Care Team (Late st Contact Info) Description 10/29/2023 Telephone [facility] [place] [address] Tania Velasquez M, OD [address] [facility] [place] [address] Follow-up (Called both numbers provided on account and sent a [employer] message in order to schedule appointment.) Social History Tobacco Use Types Packs/Day Years [...] Recorded Patient Health Questionnaire-2 Score 0 08/31/2023 [facility] of Occupat ional Health - Occupational Stress [...] st Contact Info) Description 04/04/2024 8:30 AM BOTTLE CAPPING MACHINE OPERATOR Office Visit [facility] - Dermatology [address] [place] [address], [place] [phone] Marlys Zaragoza MD [address] [place] [address] 3 [place] [phone] 09/03/2024 9:00 AM CDT Office Visit [facility] - Neurology [address] [place] [address], [place] [phone] Melissa Crook APRN-RETAIL SOLAR ADVISOR [address] [place] [phone] documented as of this encounter Visit Diagnoses Not on filedocumented in this encounter Care Teams Pipeliner Relationship Specialty Start Date End Date Unknown, Provider PCP - General 09/11/23 01/28/24 documented as of this encounter
--- OUTSIDE RECORDS SUMMARY | 2024-03-22 16:35 | XMS_ITS | Encounter Summary ---
Author Organization [facility] Health Address [address] [facility] [place] [address] Care Team Providers Care Biosolids Management Technician Name Role Phone Unknown, Provider Primary Care Provider Unavaila ble Encounter Details Date Type Department Care Team (Late Contact Info) Description 09/11/2023 Orders Only [facility] - Neurology [address] [facility], [place] [phone] Melissa Crook, PAPER CONE DRYING MACHINE OPERATOR-CORN MILLER [address] [place] [address] Seizures (HCC) Social History Tobacco Use Types Packs/Day [...] Recorded Patient Health Questionnaire-2 Score 0 08/31/2023 [facility] of Occupat ional [facility] - Occupational Stress Questionnaire Answer Date Recorded [...] st Contact Info) Description 04/04/2024 8:30 AM CUSTOMER ENGINEERING SPECIALIST Office Visit [facility] - Dermatology [address] [place] [address], [place] [address] Marlys Zaragoza MD [address] [place] [address] 3 [place] [phone] 09/03/2024 9:00 AM CDT Office Visit [facility] - Neurology [address] [place] [address], [place] [phone] Melissa Crook APRN-CORN MILLER [address] [place] [phone] documented as of this encounter Visit Diagnoses Diagnosis Seizures (HCC) Other convulsions documented in this encounter Care Teams Biosolids Management Technician Relationship Specialty Start Date End Date Unknown, Provider PCP - General 09/11/23 01/28/24 documented as of this encounter
--- OUTSIDE RECORDS SUMMARY | 2024-03-22 16:36 | XMS_ITS | Encounter Summary ---
Author Organization [facility] Health Address [address] [facility] [place] [address] Care Team Providers Care Cobol Developer Name Role Phone Lauren Saba Primary Care Provider Reason for Visit * Reason Onset Date Comments Update 01/22/2023 Encounter Details Date Type Department Care Team ([facility] st Contact Info) Description 01/22/2023 Telephone [facility] - Neurology [address] [place] [address] Melissa Crook APRN-CNP [address] [place] [address] Update Social History Tobacco Use Types Packs/Day Years [...] Date Recorded Patient Health Questionnaire-2 Score 0 01/05/2023 [facility] of Occupat ional Health - Occupational Stress [...] place to sleep or slept in a jail (including now)? No 11/21/2022 Education Answer Date [...] encounter Miscellaneous Notes * Telephone Encounter - Dilma Gruber RN - 01/22/2023 1:55 PM CST Patient called back regarding her briviact dose change. Was very tearful, is under a lot of stress and is worried about having a seizure. Talked with the patient for quite some time about what is going on in her life. She called down significantly. Would like to take a shower but will wait until her friend gets there for safety issues. EQUIPMENT MECHANIC * Telephone Encounter - Elzbieta Bermudez RN - 01/22/2023 1:01 PM TEST EQUIPMENT MECHANIC Spoke to patient and hold her to increase her Briviact to 2 pills twice daily. Patient voiced understanding. EQUIPMENT MECHANIC * Telephone Encounter - Elzbieta Bermudez RN - 01/22/2023 10:04 AM TEST EQUIPMENT MECHANIC Patient called stating she was on a walk yesterday evening and felt like she was going to have a seizure she sat down on the grass and wait about 20 minutes and nothing happened so she proceeded home. States this morning she walking in her apartment and felt like she was going to have seizure and sat down on her couch and waited it out. Did not have a seizure either time but states she noticed light changes in her vision and felt likeone was coming. Denies any missed doses of medication, denies any illness or extra stress. Will route to TOXICOLOGIST teresa to review. EQUIPMENT MECHANIC documented in this encounter Plan of Treatment Upcoming Encounters Date Type Department Care Team (Late st Contact Info) Description 04/04/2024 8:30 AM TEST EQUIPMENT MECHANIC Office Visit [facility] - Dermatology [address] [place] [address], [place] [address] Marlys Zaragoza MD [address] [place] [address] [address] [place] [phone] 09/03/2024 9:00 AM CDT Office Visit [facility] - Neurology [address] [place] [address], [place] [phone] Melissa Crook APRN-TUBE MILL OPERATOR [address] [place] [phone] documented as of this encounter Visit Diagnoses Not on filedocumented in this encounter Care Teams Cobol Developer Relationship Specialty Start Date End Date Lauren Saba, MILITARY PROFESSIONAL-TUBE MILL OPERATOR [address] [place] [phone] PCP - General 01/14/18 05/10/23 documented as of this encounter
--- OUTSIDE RECORDS SUMMARY | 2024-03-22 16:36 | XMS_ITS | Encounter Summary ---
Author Organization [facility] Health Address [address] [facility] [place] [address] Care Team Providers Care Die Fitter Name Role Phone Lauren Saba Jose Eduardo KNOX-RN EXAMINER Primary Care Provider Reason for Visit * Reason Onset Date Comments General 02/12/2023 Baclofen refill Encounter Details Date Type Department Care Team (Late st Contact Info) Description 02/12/2023 Telephone [facility] - Neurology [address] [place] [address] Karen Reyes MD [address] [place] [phone] General (Baclofen refill) Social History Tobacco Use Types Packs/Day Years [...] Date Recorded Patient Health Questionnaire-2 Score 0 02/07/2023 [facility] of Occupat ional Health - Occupational Stress [...] money to buy more. Never true 11/22/19 Within the past 12 months, t he [...] Telephone Encounter - Elzbieta Bermudez RN - 02/12/2023 2:05 PM PAIRER Patient called asking for a refill on her Baclofen. Explained to patient she does not have an active order for baclofen patient states she does. Upon further review noted an order from Sabi Bashir explained to patient she needs to contact her office to get any further refills as our office has not prescibed her baclofen in over a year. Patient voiced understanding. ER documented in this encounter Plan of Treatment Upcoming Encounters Date Type Department Care Team (Late st Contact Info) Description 04/04/2024 8:30 AM PAIRER Office Visit [facility] - Dermatology [address] [place] [address] [place] [phone] Marlys Zaragoza MD [address] [place] [address] 3 [place] [phone] 09/03/2024 9:00 AM CDT Office Visit [facility] - Neurology [address] [place] [phone] Melissa Crook APRN-CNP [address] [place] [address] documented as of this encounter Visit Diagnoses Not on filedocumented in this encounter Care Teams Die Fitter Relationship Specialty Start Date End Date Lauren Saba APRN-CNP [address] [place], [place] [phone] PCP - General 01/14/18 05/10/23 documented as of this encounter
--- OUTSIDE RECORDS SUMMARY | 2024-03-22 16:36 | XMS_ITS | Encounter Summary ---
Author Organization [facility] Health Address [address] [facility] [place] [address] Care Team Providers Care Fingernail Sculptor Name Role Phone Lauren Saba Jose Eduardo KNOX-STRIP CATCHER Primary Care Provider Reason for Visit * Reason Comments Refill Request Encounter Details Date Type Department Care Team (Late st Contact Info) Description 08/09/2022 Refill [facility] - [facility]rology [facility] [place] [address] Markus Cabral MD [address] [place] [address] Refill Request Social History Tobacco Use Types Packs/Day Years Used Date Smoking Tobacco: Never Passive Smoke Exposure: Never Smokeless Tobacco: Never Alcohol Use Standard Drinks/Week Comments Not Currently 8 (1 standard drink = 0.6 oz pur e alcohol) socially 1 X q 6 months AUDIT-C Answer Date Recorded Q1: How often do you have a drink containing alc ohol? Monthly or less 06/21/2022 Q2: How many drinks containi ng alcohol do you have on a typical day when you are drinking? 1 or 2 06/21/2022 Q3: How often do you have si x or more drinks on one occasion? Never 06/21/2022 Overall Financial Resource Strain (CARDIA) Answe r Date Recorded How hard is it for you to pa y for the very basics like food, housing, medical care, and heating? Not very hard 06/21/2022 PHQ-2 Answer Date Recorded PHQ2 TOTAL SCORE 0 03/02/2022 [facility] of Occupat ional Health - Occupational Stress Questionnaire Answer Date Recorded Do you feel stress - tense, restless, nervous, or anxious, or unable to sleep at night because your mind is troubled all the time - these days? Only a little 06/21/2022 Hunger Vital Sign Answer Date Recorded Within the past 12 months, y ou worried that your food would run out before you got the money to buy more. Never true 06/22/19 23 Within the past 12 months, t he food you bought just didn't last and you didn't have money to get more. Never true 06/21/2022 PRAPARE - Transportation Answer Date Re corded In the past 12 months, has l ack of transportation kept you from medical appointments or from getting medications? No 07/2022 In the past 12 months, has l ack of transportation kept you from meetings, work, or from getting things needed for daily living? No 06/21/2022 Housing Stability Vital Sign Answer Bandar e Recorded In the last 12 months, was t here a time when you were not able to pay the mortgage or rent on time? No 06/21/2022 In the last 12 months, how many places have you lived? 1 06/21/2022 In the last 12 months, was t here a time when you did not have a steady place to sleep or slept in a group home (including now)? No 06/21/2022 Education Answer Date Recorded What is the highest level of school you have completed or the highest degree you have received? Bachelor's degree (e.g., BA, AB, BS) 05/14/2021 Sex and Gender Information Value Date Recorded Sex Assigned at Female 06/22/2023 9:58 AM CDT Gender Identity Female 06/22/2023 9:58 AM CDT Sexual Orientation Straight 06/22/2023 9: 58 AM CDT COVID-19 Exposure Response Date Recorded In the last 10 days, have yo u been in contact with someone who was confirmed or suspected to have Coronavirus/COVID-19? No / Unsure 08/03/2022 4:37 PM CDT documented as of this encounter Functional Status Functional Status Response Date of Assess ment Is person deaf or have serious hearing difficult y? No 05/13/2021 Is person blind or have serious difficulty seein g? No 05/13/2021 Does person have serious dif ficulty walking/climbing stairs? Yes 05/13/2021 Does person have difficulty dressing/bathing? Ye s 05/13/2021 Does person have difficulty doing errands alone? Yes 05/13/2021 Cognitive Status Response Date of Assessm ent Does person have difficulty concentrating/remembering/making decisions? No 05/13/2021 documented as of this encounter Miscellaneous Notes * Telephone Encounter - Anuradha Carcamo - 08/09/2022 6:59 AM CDT Refill Request Meredith Frost CRISTELA: 05/25/2022 NOV due: 08/2022 scheduled: 08/2022 LRF: 05/05/2022 Qty Disp: 180 tablet # of refills: 1 Allergies: No Known Allergies Pended Medication Order: Requested Prescriptions Pending Prescriptions Disp Refills ??? levETIRAcetam (Keppra) 500 MG tablet [Pharmacy Med Name: LEVETIRACETAM 500MG TABLETS] 180 tablet 1 Sig: TAKE 1 TABLET BY MOUTH TWICE DAILY documented in this encounter Plan of Treatment Upcoming Encounters Date Type Department Care Team (Late st Contact Info) Description 04/04/2024 8:30 AM REAL ESTATE BROKER Office Visit [facility] - Dermatology [address] [place] [address], [place] [phone] Marlys Zaragoza MD [address] [place] [address] 3 [place] [phone] 09/03/2024 9:00 AM CDT Office Visit [facility] - Neurology [address] [place] [address], [place] [phone] Melissa Crook, SEASONAL CUSTOMER SERVICE ASSOCIATE-STRIP CATCHER [address] [place] [address] documented as of this encounter Visit Diagnoses Diagnosis Seizures (HCC) Other convulsions documented in this encounter Care Teams Fingernail Sculptor Relationship Specialty Start Date End Date Lauren Saba APRN-STRIP CATCHER [address] [place] [phone] PCP - General 01/14/18 05/10/23 documented as of this encounter
--- OUTSIDE RECORDS SUMMARY | 2024-03-22 16:36 | XMS_ITS | Encounter Summary ---
Author Organization [facility] Health Address [address] [address] Care Team Providers Care Turkey Boner Name Role Phone Lauren Saba Jose Eduardo KNOX-LABORER WOOD PRESERVING PLANT Primary Care Provider Encounter Details Date Type Department Care Team (Latest Contact Info) Description 02/01/2023 Travel Social History Tobacco Use Types Packs/Day [...] Recorded Patient Health Questionnaire-2 Score 0 01/05/2023 [facility] of Occupat ional Health - Occupational Stress [...] place to sleep or slept in a custodial (including now)? No 11/21/2022 Education Answer Date [...] st Contact Info) Description 04/04/2024 8:30 AM MICA LAYER Office Visit [facility] - Dermatology [address] [place] [address], [place] [phone] Marlys Zaragoza MD [address] [place] [address] [address] [place] [phone] 09/03/2024 9:00 AM CDT Office Visit [facility] - Neurology [address] [place] [address], [place] [phone] Melissa Crook APRN-CNP [address] [place] [phone] documented as of this encounter Visit Diagnoses Not on filedocumented in this encounter Care Teams Turkey Boner Relationship Specialty Start Date End Date Lauren Saba APRN-LABORER WOOD PRESERVING PLANT [address] [place] [phone] PCP - General 01/14/18 05/10/23 documented as of this encounter
--- OUTSIDE RECORDS SUMMARY | 2024-03-22 16:36 | XMS_ITS | Encounter Summary ---
Author Organization [facility] Health Address [address] [facility] [place] [address] Care Team Providers Care Bottom Bleacher Name Role Phone Lauren Saba APRN-CLINICAL SCIENCE LIAISON Primary Care Provider Reason for Visit * Reason Onset Date Comments Medication Problem 01/27/2023 Encounter Details Date Type Department Care Team ([facility] st Contact Info) Description 01/27/2023 Telephone [facility] - Neurology [address] [facility] [place] [address] Gabriel Ramirez MD [address] [facility] [place] [address] Medication Problem Social History Tobacco Use Types Packs/Day [...] Recorded Patient Health Questionnaire-2 Score 0 01/05/2023 [facility] of Occupat ional Health - Occupational Stress [...] in a group home (including now)? No 11/21/2022 Education Answer [...] encounter Miscellaneous Notes * Telephone Encounter - Gabriel Ramirez MD - 01/27/2023 4:03 PM CST Received call from patient stating that she took 1.5 tablets of her Briviac instead of 2 tablets. Since she still has the 0.5 tablet, she was instructed to take another 1.5 tablets with her next doseand resume her usual two tablets twice a day tomorrow. HEEL BUILDER documented in this encounter Plan of Treatment Upcoming Encounters Date Type Department Care Team (Late st Contact Info) Description 04/04/2024 8:30 AM LOW HEEL BUILDER Office [facility] - Dermatology [address] [place] [address], [place] [address] Marlys Zaragoza MD [address] [place] [address] [place] [phone] 09/03/2024 9:00 AM CDT Office Visit [facility] - Neurology [address] [place] [phone] Melissa Crook APRN-CLINICAL SCIENCE LIAISON [address] [place] [phone] documented as of this encounter Visit Diagnoses Not on filedocumented in this encounter Care Teams Bottom Bleacher Relationship Specialty Start Date End Date Lauren Saba APRN-CLINICAL SCIENCE LIAISON [address] [place] [phone] PCP - General 01/14/18 05/10/23 documented as of this encounter
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
--- OUTSIDE RECORDS SUMMARY | 2024-03-22 16:36 | XMS_ITS | Encounter Summary ---
Author Organization [facility] Health Address [address] [place] [address] Care Team Providers Care Gambling Counsellor Name Role Phone Lauren Saba Jose Eduardo KNOX-ATHLETIC DIRECTOR Primary Care Provider Reason for Visit * Reason Comments General Follow up, fbse Refill Request Encounter Details Date Type Department Care Team (Late st Contact Info) Description 10/06/2022 8:30 AM CDT Office Visit [facility] - Dermatology [address] [place] [address], [facility] [place] [phone] Marlys Zaragoza MD [address] [place] [address] [place] [phone] Acne vulgaris (Primary Dx); Multiple nevi; Lentigines; Seborrheic keratosis Social History Tobacco Use Types Packs/Day Years [...] Answer Date Recorded PHQ2 TOTAL SCORE 0 09/07/2022 [facility] of Occupat ional Health - Occupational [...] place to sleep or slept in a fpc (including now)? No 06/21/2022 Education Answer Date [...] suspected to have Coronavirus/COVID-19? No / Unsure 09/07/2022 7:50 AM CDT documented as of this encounter [...] No 05/13/2021 documented as of this encounter Patient Instructions * Patient Instructions* Nacho Contreras MD - 10/06/2022 8:36 AM CDT Images from the original note were not included. Start using tinted sunscreen as we recommended on the handout. That should help the brown spots. Start using the tretinoin cream that we prescribed. You can try the gel as well. It should not be GoodRx.com has special coupons. Type in on your phone or the internet and bring the coupon to the pharmacist. Your skin exam went well today. Please schedule a follow-up visit as discussed. Have a great day! Make sure you wear a Broad Spectrum sunscreen daily with at least SPF 30. This will help decreasethe risk of skin cancer and other sun-related skin damage. SUNSCREENS UVA and UVB PROTECTION Sunlight consists of two types of light that can cause or worsen most skin problems: UVA (ultraviolet A) UVB (ultraviolet B) Brown spots Skin cancers Wrinkles Sunburn Aging Tanning Rosacea Less variation with seasons Strongest in summer All day strong Peak hours 10am to 2pm No rating system available SPF rates UVB protection Passes through glass and clouds Sunscreens that block both UVA and UVB light contain: 1. Zinc Oxide (should contain at least 4% zinc oxide) 2. Titanium Dioxide 3. Avobenzone There are other UVA blocking ingredients but they are not as complete as these three. Tips/Suggestions - SPF of 30 or higher - Zinc Oxide or other UVA block such as Helioplex or Anthelios in product - Remember there is no safe UV light...so there is no such thing as a safe suntan - Apply sunscreen daily (even in winter and on cloudy days) and reapply every 2 to 4 hours depending on activity - Approximately one ounce is necessary to adequately cover the entire body - Approximately one teaspoon is necessary to adequately cover the face documented in this encounter Progress Notes * Nacho Contreras MD - 10/06/2022 8:21 AM CDT Chief Complaint Patient presents with ??? General Follow up, fbse ??? Refill Request HPI: Meredith Frost is a 41 year old female who presents for follow up. Patient was last seen on 10/06/2021 Today she notes acne was previously well controlled on tretinoin 0.05% cream and benzoyl peroxide. Her insurance required her to switch tretinoin gel but she hasn't tried the gel yet because she was worried it would make her oily. She prefers the cream to the gel. Overall acne is stable despite being off tretinoin. She reports new brown spot on her forehead. Thinks it may be related to sunscreen use. She notes new spots on body. None are itching, bleeding or painful. Personal history of skin cancer: none Physical exam: Skin exam was conducted to include the scalp, face, lips, conjunctiva, ears, neck, chest, abdomen, back, upper extremities, and lower extremities and was notable for the following: - poorly defined reticulated faint hyperpigmented patches on R lateral forehead, L lateral forehead, temples, cheeks - no clear acneiform papules today - many valentine to brown waxy stuck-on papules on trunk - multiple valentine to light brown macules on face, shoulders and arms in a photo- distributed pattern Assessment/Plan: Acne vulgaris, at patient goal, though medication adjustment needed - discussed that gel typically is drying and not oily compared to cream - Discussed tretinoin cream QHS, discussed not on formulary, can pay lal burk (~$38 at [employer]) or use tretinoin gel QHS. Pt indicated preference to use cream instead of gel Melasma, face - discussed etiology, relation to UV/heat, chronic nature - start tinted mineral sunscreen, options discussed, cosmetics pamphlet given Multiple benign appearing nevi - Reassured patient if benign appearance today - Continue in office and self skin examinations - ABCDE of melanoma discussed - Continue sun protection with sunscreen, sun protective clothing and sun avoidance Lentigines - Reassured of benign appearance today - Continue sun protection with sunscreen, sun protective clothing and sun avoidance Return to clinic in 1 year Billing Guide Nacho Contreras MD [facility] Dermatology Resident Associated attestation - Marlys Zaragoza MD - 10/06/2022 2:25 PM CDT Attending Physician Supervisory Note I have seen and examined the patient with the resident and I agree with the findings and plan of care as documented by the resident and edited by me. Date of Service : 10/06/2022 Marlys Zaragoza MD Clinical Pit Manager of Dermatology [facility] documented in this encounter Plan of Treatment Upcoming Encounters Date Type Department Care Team (Late st Contact Info) Description 04/04/2024 8:30 AM WAFER CUTTER Office Visit [facility] - Dermatology [address] [place] [address], [place] [phone] Marlys Zaragoza MD [address] [place] [address] 3 [place] [phone] 09/03/2024 9:00 AM CDT Office Visit [facility] - Neurology [address] [place] [phone] Melissa Crook APRN-ATHLETIC DIRECTOR [address] [place] [phone] documented as of this encounter Visit Diagnoses Diagnosis Acne vulgaris- Primary Other acne Multiple nevi Benign neoplasm of skin, site unspecified Lentigines Other dyschromia Seborrheic keratosis documented in this encounter Care Teams Gambling Counsellor Relationship Specialty Start Date End Date Lauren Saba, INFECTION CONTROL RN-ATHLETIC DIRECTOR [address] [place] [address] PCP - General 01/14/18 05/10/23 documented as of this encounter
--- OUTSIDE RECORDS SUMMARY | 2024-03-22 16:36 | XMS_ITS | Encounter Summary ---
Author Organization [facility] Health Address [address] [facility] [address] [place] [address] Care Team Providers Care Centralized Traffic Control Operator Name Role Phone Lauren Saba Jose Eduardo KNOX-MINE PROMOTOR Primary Care Provider Encounter Details Date Type Department Care Team (Latest Contact Info) Description 04/12/2023 Travel Social History Tobacco Use Types Packs/Day [...] Recorded Patient Health Questionnaire-2 Score 1 03/02/2023 [facility] [place] of Occupat ional Health - Occupational Stress [...] slept in a fpc (including now)? No 11/21/2022 Education Answer Date [...] st Contact Info) Description 04/04/2024 8:30 AM CAR WRECKER Office Visit [facility] - Dermatology [address] [place] [address], [place] [phone] Marlys Zaragoza MD [address] [place] [address] [address] [place] [phone] 09/03/2024 9:00 AM CDT Office Visit [facility] - Neurology [address] [place] [address], [place] [phone] Melissa Crook APRN-CNP [address] [place] [phone] documented as of this encounter Visit Diagnoses Not on filedocumented in this encounter Care Teams Centralized Traffic Control Operator Relationship Specialty Start Date End Date Lauren Saba APRN-MINE PROMOTOR 9 [place] [phone] PCP - General 01/14/18 05/10/23 documented as of this encounter
--- OUTSIDE RECORDS SUMMARY | 2024-03-22 16:36 | XMS_ITS | Encounter Summary ---
Author Organization [facility] Health Address [address] [place] [address] Care Team Providers Care Millwork Estimator Name Role Phone Lauren Saba Jose Eduardo KNOX-BRICK PITCHER Primary Care Provider Encounter Details Date Type Department Care Team (Latest Contact Info) Description 03/16/2023 Travel Social History Tobacco Use Types Packs/Day [...] Recorded Patient Health Questionnaire-2 Score 1 03/02/2023 [facility] [place] of Occupat ional Health - Occupational Stress [...] place to sleep or slept in a snf (including now)? No 11/21/2022 Education Answer Date [...] st Contact Info) Description 04/04/2024 8:30 AM GAMING SURVEILLANCE OBSERVER Office Visit [facility] - Dermatology [address] [place] [address], [place] [phone] Marlys Zaragoza MD [address] [place] [address] [address] [place] [phone] 09/03/2024 9:00 AM CDT Office Visit [facility] - Neurology [address] [place] [address], [place] [phone] Melissa Crook APRN-CNP [address] [place] [phone] documented as of this encounter Visit Diagnoses Not on filedocumented in this encounter Care Teams Millwork Estimator Relationship Specialty Start Date End Date Lauren Saba APRN-BRICK PITCHER 9 [place] [phone] PCP - General 01/14/18 05/10/23 documented as of this encounter
--- OUTSIDE RECORDS SUMMARY | 2024-03-22 16:36 | XMS_ITS | Encounter Summary ---
Author Organization [facility] Health Address [address] [place] [address] Care Team Providers Care Resource Center Teacher Name Role Phone Lauren Saba Jose Eduardo KNOX-BINGO FLOATER Primary Care Provider Encounter Details Date Type Department Care Team (Latest Contact Info) Description 12/22/2022 Travel Social History Tobacco Use Types Packs/Day [...] very hard 11/21/2022 PHQ-2 Answer Date Recorded PHQ2 TOTAL SCORE 0 09/07/2022 [facility] [place] of Occupat ional Health - Occupational Stress [...] st Contact Info) Description 04/04/2024 8:30 AM RADIOGRAPHER ANGIOGRAM [facility] Derm[facility] [address] [place] [address], [place] [phone] Marlys Zaragoza MD [address] [place] [address] [address] [place] [phone] 09/03/2024 9:00 AM CDT Office Visit [facility] - Neurology [address] [place] [address], [place] [phone] Melissa Crook APRN-CNP [address] [place] [phone] documented as of this encounter Visit Diagnoses Not on filedocumented in this encounter Care Teams Resource Center Teacher Relationship Specialty Start Date End Date Lauren Saba APRN-BINGO FLOATER [address] [place] [phone] PCP - General 01/14/18 05/10/23 documented as of this encounter
--- OUTSIDE RECORDS SUMMARY | 2024-03-22 16:36 | XMS_ITS | Encounter Summary ---
Author Organization [facility] Health Address [address] [place] [address] Care Team Providers Care Operator Control Room Name Role Phone Lauren Saba Jose Eduardo KNOX-TIRE BUILDER Primary Care Provider Encounter Details Date Type Department Care Team (Latest Contact Info) Description 03/23/2023 Travel Social History Tobacco Use Types Packs/Day [...] Recorded Patient Health Questionnaire-2 Score 1 03/02/2023 [facility] [place] of Occupat ional Health - Occupational Stress [...] st Contact Info) Description 04/04/2024 8:30 AM HUMIDIFIER OPERATOR Office Visit [facility] - Dermatology [address] [place] [address], [place] [phone] Marlys Zaragoza MD [address] [place] [address] [address] [place] [phone] 09/03/2024 9:00 AM CDT Office Visit [facility] - Neurology [address] [place] [address], [place] [phone] Melissa Crook APRN-CNP [address] [place] [phone] documented as of this encounter Visit Diagnoses Not on filedocumented in this encounter Care Teams Operator Control Room Relationship Specialty Start Date End Date Lauren Saba APRN-TIRE BUILDER 9 [place] [phone] PCP - General 01/14/18 05/10/23 documented as of this encounter
--- OUTSIDE RECORDS SUMMARY | 2024-03-22 16:36 | XMS_ITS | Encounter Summary ---
Author Organization [facility] Health Address [address] [place] [address] Care Team Providers Care Fur Finisher Name Role Phone Lauren Saba Jose Eduardo KNOX-SPECIAL EFFECTS MAKEUP ARTIST Primary Care Provider Encounter Details Date Type Department Care Team (Latest Contact Info) Description 09/08/2022 Travel Social History Tobacco Use Types Packs/Day [...] Date Recorded PHQ2 TOTAL SCORE 0 09/07/2022 [facility] [place] of Occupat ional Health - Occupational Stress [...] in a nursing home (including now)? No 06/21/2022 Education Answer [...] No 05/13/2021 documented as of this encounter Plan of Treatment Upcoming Encounters Date Type Department Care Team (Late st Contact Info) Description 04/04/2024 8:30 AM MECHANICAL ENGINEERING TECHNOLOGIST Office [facility] Derm[facility] [address] [place] [address], [place] [address] Marlys Zaragoza MD [address] [place] [address] 3 [place] [phone] 09/03/2024 9:00 AM CDT Office Visit [facility] - Neurology [address] [place] [address], [place] [phone] Melissa Crook APRN-SPECIAL EFFECTS MAKEUP ARTIST [address] [place] [phone] documented as of this encounter Visit Diagnoses Not on filedocumented in this encounter Care Teams Fur Finisher Relationship Specialty Start Date End Date Lauren Saba APRN-SPECIAL EFFECTS MAKEUP ARTIST 9 [place] [phone] PCP - General 01/14/18 05/10/23 documented as of this encounter
--- OUTSIDE RECORDS SUMMARY | 2024-03-22 16:36 | XMS_ITS | Encounter Summary ---
Author Organization [facility] Health Address [address] [facility] [place] [address] Care Team Providers Care Mine Engineering Supervisor Name Role Phone Lauren Saba Jose Eduardo KNOX-POLITICAL AIDE Primary Care Provider Reason for Visit * Reason Onset Date Comments Follow-up 05/09/2023 Encounter Details Date Type Department Care Team (Late st Contact Info) Description 05/09/2023 Telephone [facility] Ophthalmology [address] [place] [address] Tania Velasquez M, OD [address] [facility] [place] [address] Follow-up Social History Tobacco Use [...] Recorded Patient Health Questionnaire-2 Score 1 03/02/2023 [facility] of Occupat ional Health - Occupational Stress [...] Telephone Encounter - Tania Velasquez, OD - 05/09/2023 8:55 AM CST Called optical shop Left eye blurry, started a few days ago Pretty sure she put contact lens in left eye a few days ago Typical takes contacts out every night But now cannot find lens in eye Is wearing glasses Feels she is seeing well each eye Left eye has mild pain Discussed with pt to come in [place] so we can evaluate eye Pt unable to come today due to transportation Pt says her transportation is scheduled 3 days out (due to insurance?) Pt given Sunday at 9 time slot but I told pt to consider uber/lift or asking someone to drive her here so we can evaluate as soon as possible. EL SETTER documented in this encounter Plan of Treatment Upcoming Encounters Date Type Department Care Team (Late st Contact Info) Description 04/04/2024 8:30 AM TEASEL SETTER Office Visit [facility] - Dermatology [address] [place] [address], [place] [phone] Marlys Zaragoza MD [address] [place] [address] 3 [place] [phone] 09/03/2024 9:00 AM CDT Office Visit [facility] - Neurology [address] [place] [address], [place] [phone] Melissa Crook, LISETTE-POLITICAL AIDE [address] [place] [phone] documented as of this encounter Visit Diagnoses Not on filedocumented in this encounter Care Teams Mine Engineering Supervisor Relationship Specialty Start Date End Date Lauren Saba, SENIOR LOAN OFFICER-POLITICAL AIDE 9 [place] [phone] PCP - General 01/14/18 05/10/23 documented as of this encounter
--- OUTSIDE RECORDS SUMMARY | 2024-03-22 16:36 | XMS_ITS | Encounter Summary ---
Author Organization [facility] Health Address [address] [facility] [place] [address] Care Team Providers Care Chemotherapist Name Role Phone WandyLauren Primary Care Provider Reason for Visit * Reason Onset Date Comments MEDICATION REFILL 02/12/2023 Encounter Details Date Type Department Care Team (Late st Contact Info) Description 02/12/2023 Refill [facility] - Neurology [address] [place] [address] Melissa Crook APRN-CNP [address] [place] [address] MEDICATION REFILL Social History Tobacco Use Types [...] Recorded Patient Health Questionnaire-2 Score 0 02/07/2023 [facility] [place] of Occupat ional Health - Occupational Stress [...] st Contact Info) Description 04/04/2024 8:30 AM OIL WINTERIZER Office Visit [facility] - Dermatology [address] [place] [address], [place] [phone] Marlys Zaragoza MD [address] [place] [address] 3 [place] [phone] 09/03/2024 9:00 AM CDT Office Visit [facility] - Neurology [address] [place] [address], [place] [phone] Melissa Crook APRN-SHOW HOST OR HOSTESS [address] [place] [address] documented as of this encounter Visit Diagnoses Not on filedocumented in this encounter Care Teams Chemotherapist Relationship Specialty Start Date End Date Lauren Saba APRN-SHOW HOST OR HOSTESS 9 [place] [phone] PCP - General 01/14/18 05/10/23 documented as of this encounter
--- OUTSIDE RECORDS SUMMARY | 2024-03-22 16:36 | XMS_ITS | Encounter Summary ---
Author Organization [facility] Health Address [address] [facility] [place] [address] Care Team Providers Care Cloud Automation Tester Name Role Phone Lauren Saba Jose Eduardo KNOX-SLOT SHIFT MANAGER Primary Care Provider Reason for Visit * Reason Onset Date Comments Medication Issue 05/04/2023 Rash 05/04/2023 Encounter Details Date Type Department Care Team (Late st Contact Info) Description 05/04/2023 Telephone [facility] - Dermatology [address] [place] [address], [facility] [place] [address] Marlys Zaragoza MD [address] [place] [address] 3 [place] [address] Medication Issue; Rash Social History Tobacco Use Types Packs/Day Years [...] Recorded Patient Health Questionnaire-2 Score 1 03/02/2023 [facility] [place] of Occupat ional Health - Occupational Stress [...] encounter Miscellaneous Notes * Telephone Encounter - Marlys Zaragoza MD - 05/09/2023 5:25 PM INFORMATION SYSTEMS SECURITY OFFICER Called patient about rash on neck. She thinks it was from necklace she was wearing, now improving. Recommended using vaseline to residual rash and painting necklace with clear nail ugandan if possible. Patient agrees with plan. Marlys Zaragoza MD Clinical Semiconductor Wafers Etcher Stripper of Dermatology [facility] RMATION SYSTEMS SECURITY OFFICER * Telephone Encounter - Terri Castellanos - 05/04/2023 9:36 AM CST Pt called with c/o rash on her chest. She says she has been using her face wash on her chest that may be causing it. Pt also mention needing medication. RMATION SYSTEMS SECURITY OFFICER documented in this encounter Plan of Treatment Upcoming Encounters Date Type Department Care Team (Late st Contact Info) Description 04/04/2024 8:30 AM INFORMATION SYSTEMS SECURITY OFFICER Office [facility]erm[facility] [address] [place] [address], [place] [phone] Marlys Zaragoza MD [address] [place] [address] 3 [place] [phone] 09/03/2024 9:00 AM CDT Office Visit [facility] - Neurology [address] [place] [address], [place] [phone] BernMelissa kinney APRN-CNP [address] [place] [address] documented as of this encounter Visit Diagnoses Not on filedocumented in this encounter Care Teams Cloud Automation Tester Relationship Specialty Start Date End Date Lauren Saba APRN-CNP 9 [place] [phone] PCP - General 01/14/18 05/10/23 documented as of this encounter
--- OUTSIDE RECORDS SUMMARY | 2024-03-22 16:36 | XMS_ITS | Encounter Summary ---
Author Organization [facility] Health Address [address] [facility] [place] [address] Care Team Providers Care Sampling Expert Name Role Phone Lauren Saba STOCK DRIVER-VACUUM PLASTIC FORMING MACHINE OPERATOR Primary Care Provider Reason for Visit * Reason Onset Date Comments Future Appointment 01/02/2023 Call pt about new grayson made for 03/23/23 at 2:10pm No answer no voicemail Encounter Details Date Type Department Care Team (Late st Contact Info) Description 01/02/2023 Telephone [facility] - Centralized Scheduling [address] [place] [phone] Marlys Zaragoza MD [address] [facility] 3 [place] [phone] Future Appointment (Call pt about new grayson made for 03/23/23 at 2:10pm No answer no voicemail ) Social History Tobacco Use Types Packs/Day Years [...] Date Recorded PHQ2 TOTAL SCORE 0 09/07/2022 [facility] of Occupat ional [facility] - Occupational Stress Questionnaire Answer Date Recorded [...] encounter Miscellaneous Notes * Telephone Encounter - Katherin Cannon - 01/02/2023 11:58 AM CDT Patient called about an appt with Dr Zaragoza. She is seen every 6months, I see next opening isn't until may. Patient would like a sooner appt Good cbn is [phone] documented in this encounter Plan of Treatment Upcoming Encounters Date Type Department Care Team (Late st Contact Info) Description 04/04/2024 8:30 AM PLASTICS PATTERNMAKER Office Visit [facility] - Dermatology [address] [place] [address], [place] [phone] Marlys Zaragoza MD [address] [place] [address] 3 [place] [phone] 09/03/2024 9:00 AM CDT Office Visit [facility] - Neurology [address] [place] [address] [place] [phone] Melissa Crook APRN-CNP [address] [place] [phone] documented as of this encounter Visit Diagnoses Not on filedocumented in this encounter Care Teams Sampling Expert Relationship Specialty Start Date End Date Lauren Saba APRN-CNP [address] [place] [address] PCP - General 01/14/18 05/10/23 documented as of this encounter
--- OUTSIDE RECORDS SUMMARY | 2024-03-22 16:36 | XMS_ITS | Encounter Summary ---
Author Organization [facility] Health Address [address] [place] [address] Care Team Providers Care Wax Blender Name Role Phone Lauren Saba Jose Eduardo KNOX-POLISHER BRASS Primary Care Provider Reason for Visit * Reason Comments Refill Request Encounter Details Date Type Department Care Team (Late st Contact Info) Description 01/29/2023 Refill [facility] - Dermatology [address] [place] [address], [facility] [address] Marlys Zaragoza MD [address] [place] [address] 3 [place] [phone] Refill Request Social History Tobacco Use Types [...] Recorded Patient Health Questionnaire-2 Score 0 01/05/2023 [facility] [place] of Occupat ional Health - Occupational Stress [...] encounter Miscellaneous Notes * Telephone Encounter - Shaun Rouse MA - 01/29/2023 8:25 AM CST LV 10/06/2022 [place] 03/23/2023 RTC 1year Shaun Rouse MA T FITTER documented in this encounter Plan of Treatment Upcoming Encounters Date Type Department Care Team (Late st Contact Info) Description 04/04/2024 8:30 AM WAIST FITTER Office Visit [facility] Derm[facility]ology [address] [place] [address], [place] [phone] Marlys Zaragoza MD [address] [place] [address] 3 [place] [phone] 09/03/2024 9:00 AM CDT Office Visit [facility] - Neurology [address] [place] [address], [place] [phone] Melissa Crook APRN-POLISHER BRASS [address] [place] [phone] documented as of this encounter Visit Diagnoses Not on filedocumented in this encounter Care Teams Wax Blender Relationship Specialty Start Date End Date Lauren Saba APRN-POLISHER BRASS [address] [place] [phone] PCP - General 01/14/18 05/10/23 documented as of this encounter
--- OUTSIDE RECORDS SUMMARY | 2024-03-22 16:36 | XMS_ITS | Encounter Summary ---
Author Organization [facility] Health Address [address] [place] [address] Care Team Providers Care Nailing Machine Operator Automatic Name Role Phone Lauren Saba Jose Eduardo KNOX-HOEING ROW BOSS Primary Care Provider Encounter Details Date Type Department Care Team (Latest Contact Info) Description 02/07/2023 Travel Social History Tobacco Use Types Packs/Day [...] Recorded Patient Health Questionnaire-2 Score 0 02/07/2023 [facility] [place] of Occupat ional Health - Occupational Stress [...] st Contact Info) Description 04/04/2024 8:30 AM MASSAGE OPERATOR Office Visit [facility] [address] [place] [address], [place] [phone] Marlys Zaragoza MD [address] [place] [address] [address] [place] [phone] 09/03/2024 9:00 AM CDT Office Visit [facility] - Neurology [address] [place] [address], [place] [phone] Melissa Crook APRN-CNP [address] [place] [phone] documented as of this encounter Visit Diagnoses Not on filedocumented in this encounter Care Teams Nailing Machine Operator Automatic Relationship Specialty Start Date End Date Lauren Saba APRN-HOEING ROW BOSS [address] [place] [phone] PCP - General 01/14/18 05/10/23 documented as of this encounter
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
--- OUTSIDE RECORDS SUMMARY | 2024-03-22 16:36 | XMS_ITS | Encounter Summary ---
Author Organization [facility] Health Address [address] [place] [address] Care Team Providers Care Spectrographic Analyst Name Role Phone Lauren Saba Jose Eduardo KNOX-ENGINEERING MANAGER Primary Care Provider Encounter Details Date Type Department Care Team (Latest Contact Info) Description 02/15/2023 Travel Social History Tobacco Use Types Packs/Day [...] Recorded Patient Health Questionnaire-2 Score 0 02/07/2023 [facility] [place] of Occupat ional Health - Occupational Stress [...] st Contact Info) Description 04/04/2024 8:30 AM SUBWAY TRAIN DRIVER Office Visit [facility] Dermatology [address] [place] [address], [place] [phone] Marlys Zaragoza MD [address] [place] [address] 3L [place] [phone] 09/03/2024 9:00 AM CDT Office Visit [facility] - Neurology [address] [place] [address], [place] [phone] Melissa Crook APRN-CNP [address] [place] [phone] documented as of this encounter Visit Diagnoses Not on filedocumented in this encounter Care Teams Spectrographic Analyst Relationship Specialty Start Date End Date Lauren Saba APRN-ENGINEERING MANAGER [address] [place] [phone] PCP - General 01/14/18 05/10/23 documented as of this encounter
--- OUTSIDE RECORDS SUMMARY | 2024-03-22 16:36 | XMS_ITS | Encounter Summary ---
Author Organization [facility] Health Address [address] [place] [address] Care Team Providers Care Repairer And Checker Name Role Phone Wandy Laurenreilly Whitt APRN-MASK FORMER Primary Care Provider Encounter Details Date Type Department Care Team (Latest Contact Info) Description 08/17/2022 Travel Social History Tobacco Use Types Packs/Day [...] Date Recorded PHQ2 TOTAL SCORE 0 03/02/2022 [facility] [place] of Occupat ional Health - Occupational Stress [...] slept in a prison (including now)? No 06/21/2022 Education Answer Date [...] suspected to have Coronavirus/COVID-19? No / Unsure 08/17/2022 12:02 PM CDT documented as of this encounter [...] st Contact Info) Description 04/04/2024 8:30 AM WARP TYING MACHINE KNOTTER Office Visit [facility] [address] [place] [address], [place] [address] Marlys Zaragoza MD [address] [place] [address] 3 [place] [phone] 09/03/2024 9:00 AM CDT Office Visit [facility] - Neurology [address] [place] [address], [place] [phone] Melissa Crook APRN-MASK FORMER [address] [place] [phone] documented as of this encounter Visit Diagnoses Not on filedocumented in this encounter Care Teams Repairer And Checker Relationship Specialty Start Date End Date Lauren Saba APRN-MASK FORMER [address] [place] [phone] PCP - General 01/14/18 05/10/23 documented as of this encounter
--- OUTSIDE RECORDS SUMMARY | 2024-03-22 16:36 | XMS_ITS | Encounter Summary ---
Author Organization [facility] Health Address [address] [place] [address] Care Team Providers Care Floriculturist Name Role Phone Lauren Saba Jose Eduardo KNOX-TECHNICAL SALES SUPPORT MANAGER Primary Care Provider Encounter Details Date Type Department Care Team (Latest Contact Info) Description 09/07/2022 Travel Social History Tobacco Use Types Packs/Day [...] Date Recorded PHQ2 TOTAL SCORE 0 09/07/2022 [facility] [place] of Occupat ional Health - Occupational Stress [...] slept in a fdc (including now)? No 06/21/2022 Education Answer Date [...] st Contact Info) Description 04/04/2024 8:30 AM DIALYSIS RN Office [facility] [address] [place] [address], [place] [address] Marlys Zaragoza MD [address] [place] [address] 3 [place] [phone] 09/03/2024 9:00 AM CDT Office Visit [facility] - Neurology [address] [place] [address], [place] [phone] Melissa Crook APRN-TECHNICAL SALES SUPPORT MANAGER [address] [place] [phone] documented as of this encounter Visit Diagnoses Not on filedocumented in this encounter Care Teams Floriculturist Relationship Specialty Start Date End Date Lauren Saba APRN-TECHNICAL SALES SUPPORT MANAGER [address] [place] [phone] PCP - General 01/14/18 05/10/23 documented as of this encounter
--- OUTSIDE RECORDS SUMMARY | 2024-03-22 16:36 | XMS_ITS | Encounter Summary ---
Author Organization [facility] Health Address [address] [facility] [address] Care Team Providers Care Cushion Cover Inspector Name Role Phone Wandy Laurenreilly Whitt APRN-KNOCKOUT MACHINE OPERATOR Primary Care Provider Encounter Details Date Type Department Care Team (Late st Contact Info) Description 06/21/2022 Orders Only [facility] [address] [facility], [place] [phone] Markus Cabral MD [address] [place] [address] Social History Tobacco Use Types Packs/Day Years [...] Date Recorded PHQ2 TOTAL SCORE 0 03/02/2022 [facility] [place] of Occupat ional Health - Occupational Stress [...] st Contact Info) Description 04/04/2024 8:30 AM TENSILE TESTER Office Visit [facility] - Dermatology [address] [place] [address], [place] [phone] Marlys Zaragoza MD [address] [place] [address] 3 [place] [phone] 09/03/2024 9:00 AM CDT Office Visit [facility] - Neurology [address] [place] [phone] Melissa Crook, STATIONARY FIREMAN-KNOCKOUT MACHINE OPERATOR [address] [place] [phone] documented as of this encounter Procedures Procedure Name Priority Date/Time Associated Diagnosis Comments CBC W AUTO DIFFERENTIAL 06/21/2022 1:21 PM CDT COMPREHENSIVE METABOLIC PANEL 06/21/2022 1:21 PM CDT LACOSAMIDE 06/21/2022 12:54 PM CDT LEVETIRACETAM LEVEL 06/21/2022 1 2:54 PM CDT ZONISAMIDE LEVEL 06/21/2022 12:5 4 PM CDT documented in this encounter Results * (ABNORMAL) CBC WITH DIFFERENTIAL (06/21/2022 1:21 PM CDT) White Blood Cell Count 7.1 3.8 - 10.8 Thousand/ uL [facility] RBC 4.73 3.80 - 5.10 Million/u L [facility] Hemoglobin 10.1(L) 11.7 - 15.5 g/dL [facility] Hematocrit 34.4(L) 35.0 - 45.0 % [facility] MCV 72.7(L) 80.0 - 100.0 fL [facility] MCH 21.4(L) 27.0 - 33.0 pg [facility] MCHC 29.4(L) 32.0 - 36.0 g/dL [facility] RDW 15.8(H) 11.0 - 15.0 % [facility] Platelet Count 572(H) 140 - 400 Thousand/ uL [facility] MPV 9.9 7.5 - 12.5 fL [facility] Neutrophil Absolute 4615 1500 - 7800 cells/uL [facility] Lymphocytes Absolute 1228 850 - 3900 cells/uL [facility] Absolute Monocytes 618 200 - 950 cells/uL [facility] Eosinophils Absolute 518(H) 15 - 500 cells/uL [facility] Basophils Absolute 121 0 - 200 cells/uL [facility] Granulocytes % 65 % [facility] Lymphocytes % 17.3 % [facility] Monocytes % 8.7 % [facility] Eosinophils % 7.3 % [facility] Basophils % 1.7 % [facility] Comment: Test Performed at: [facility] ??[phone] IMTIAZ PRUITT MD 06/21/2022 1:2 1 PM CDT 06/21/2022 4:29 PM CDT Markus Cabral MD LAB - HEMATOLOGY ORDERABLES [address] [address] * (ABNORMAL) COMPREHENSIVE METABOLIC PANEL (06/21/2022 1:21 PM CDT) Glucose 88 65 - 99 mg/dL [facility] Comment: ? Fasting reference interval BUN 27(H) 7 - 25 mg/dL [facility] Creatinine 0.60 0.50 - 0.99 mg/dL [facility] eGFR by Cystatin C 116 > OR = 60 mL/min/1.7 3m2 [facility] Comment: The eGFR is based on the CKD-EPI 2020 equation. To calculate the new eGFR from a previous Creatinine or Cystatin C result, go to https://www.kidney.org/professionals/ kdoqi/gfr%5Fcalculator BUN/Creatinine Ratio 45(H) 6 - 22 (calc) [facility] Sodium 136 135 - 146 mmol/L [facility] Potassium 4.7 3.5 - 5.3 mmol/L [facility] Chloride 107 98 - 110 mmol/L [facility] CO2 25 20 - 32 mmol/L [facility] Calcium 9.6 8.6 - 10.2 mg/dL [facility] Protein Total 6.9 6.1 - 8.1 g/dL [facility] Albumin 4.6 3.6 - 5.1 g/dL [facility] Globulin Total 2.3 1.9 - 3.7 g/dL (calc) [facility] Albumin/Globulin Ratio 2.0 1.0 - 2.5 (calc) [facility] Bilirubin Total 0.3 0.2 - 1.2 mg/dL [facility] Alkaline Phosphatase 53 31 - 125 U/L [facility] AST 24 10 - 30 U/L [facility] ALT 25 6 - 29 U/L [facility] Comment: Test Performed at: [facility] ??[phone] IMTIAZ PRUITT MD 06/21/2022 1:21 PM CDT 06/21/2022 4:29 PM CDT Markus Cabral MD LAB - CHEMISTRY ORDERABLES [address] [address] * LEVETIRACETAM LEVEL (06/21/2022 12:54 PM CDT) Levetiracetam 16.9 6.0 - 46.0 mcg/mL [facility] Comment: Brivaracetam (Briviact(R), Rikelta(R)) exhibits significant cross-reactivity in the Levetiracetam (Keppra(R), Spritam(R)) immunoassay. If Brivaracetam has been prescribed, order Test Code 99012 Levetiracetam by LCMSMS. Test Performed at: [facility] [address] ??[phone] IMTIAZ PRUITT MD 06/21/2022 12:5 4 PM CDT 06/21/2022 12:55 PM CDT Melissa JOSHI LAB - THERAPEU TIC DRUG MONITORING ORDERABLES Performing Organization Address [facility] [place] [address] * ZONISAMIDE LEVEL (06/21/2022 12:54 PM CDT) Zonisamide 23.9 10.0 - 40.0 mcg/mL [facility] Comment: This test was developed and its analytical performance characteristics have been determined by [employer]. It has not been cleared or approved by the FDA. This assay has been validated pursuant to the CLIA regulations and is used for clinical purposes. Test Performed at: [facility] [address] ??[phone] MELVI FLYNN MD 06/21/2022 12:5 4 PM CDT 06/21/2022 12:55 PM CDT Melissa JOS[facility] LAB - CHEMISTR Y ORDERABLES Performing Organization Address [facility] [place] [address] * LACOSAMIDE (06/21/2022 12:54 PM CDT) Lacosamide LC/MS/MS 8.5 mcg/mL [facility] Comment: Expected concentrations of Lacosamide in patients receiving recommended daily dosages: Up to 15.0 mcg/mL. Toxic range not established This test was developed and its analytical performance characteristics have been determined by [employer]. It has not been cleared or approved by the FDA. This assay has been validated pursuant to the CLIA regulations and is used for clinical purposes. Test Performed at: [facility] [address] ??[id number] MELVI FLYNN MD 06/21/2022 12:5 4 PM CDT 06/21/2022 12:55 PM CDT Melissa JOSHI LAB - CHEMISTR Y ORDERABLES [facility] [address] [place] [address] documented in this encounter Visit Diagnoses Not on filedocumented in this encounter Care Teams Cushion Cover Inspector Relationship Specialty Start Date End Date Lauren Saba APRN-CNP [address] [place] [phone] PCP - General 01/14/18 05/10/23 documented as of this encounter
--- OUTSIDE RECORDS SUMMARY | 2024-03-22 16:36 | XMS_ITS | Encounter Summary ---
Author Organization [facility] Health Address [address] [place] [place] [address] Care Team Providers Care Polygraph Examiner Name Role Phone Lauren Saba Primary Care Provider Reason for Visit * Reason Onset Date Comments Medication Issue 09/28/2022 Encounter Details Date Type Department Care Team (Late st Contact Info) Description 09/28/2022 Telephone [facility] [address] [place] [address] Melissa Crook APRN-CNP [address] [place] [address] Medication Issue Social History Tobacco Use Types [...] Date Recorded PHQ2 TOTAL SCORE 0 09/07/2022 [facility] [place] of Occupat ional Health - Occupational Stress [...] slept in a penitentiary (including now)? No 06/21/2022 Education Answer Date [...] Telephone Encounter - Dilma Gruber RN - 09/28/2022 9:15 AM CDT Images from the original note were not included. Melissa Crook, LISETTE-Dilma Truong RN Caller: Unspecified (Today, ??8:41 AM) When I saw her in clinic, she said that a MA told her she needed to be on brand VIMPAT. Unclear if this was accurate. Told her it was not necessary at this time, she is doing well on generic, no needto change medication regimen. -Melissa Contacted patient and let her know that we will not be changing her Vimpat to the brand name. Patient was a little upset by this but upon explaining to her that her insurance will not reimburse for this without a concrete medical reason she was okay. * Telephone Encounter - Dilma Gruber RN - 09/28/2022 8:41 AM CDT Patient called and was very disorganized sounding on the phone. This RN had to keep asking the patient the same questions as she was rambling and not making a lot of sense. Called stating that when she was in the clinic she spoke to a nurse human services assistant (denies that this was DUNCAN Crook) who kept telling her that she needed to be on the brand name vimpat. Asked her if there was a reason that she needed the brand name and she kept saying that someone told her that she needed this. Asked patient when her last seizure was and she stated over 6 months. This RN is confused about why then she would need the brand name if the generic has been effective. Will forward to DUNCAN Crook for her review and recommendations. Noted in her chart at her last Psych visit that patient self discontinued her VEGA Abilify and did not want to restart. We may also need to reach out to her Psychiatrist with concerns about her odd behavior on the phone today. documented in this encounter Plan of Treatment Upcoming Encounters Date Type Department Care Team (Late st Contact Info) Description 04/04/2024 8:30 AM RIPSAW OPERATOR Office Visit [facility] - Dermatology [address] [place] [address], [place] [phone] Marlys Zaragoza MD [address] [place] [place] [address] [place] [phone] 09/03/2024 9:00 AM CDT Office Visit [facility] - Neurology [address] [place] [phone] Melissa Crook APRN-NAIF [address] [place] [phone] documented as of this encounter Visit Diagnoses Not on filedocumented in this encounter Care Teams Polygraph Examiner Relationship Specialty Start Date End Date Lauren Saba, USER EXPERIENCE DEVELOPER-PBX OPERATOR [address] [place] [phone] PCP - General 01/14/18 05/10/23 documented as of this encounter
--- OUTSIDE RECORDS SUMMARY | 2024-03-22 16:36 | XMS_ITS | Encounter Summary ---
Author Organization [facility] Health Address [address] [place] [place] [address] Care Team Providers Care Dining Service Supervisor Name Role Phone Lauren Saba Jose Eduardo KNOX-STRUCTURAL LAYOUT WORKER Primary Care Provider Reason for Visit * Reason Onset Date Comments MEDICATION REFILL 05/02/2023 Encounter Details Date Type Department Care Team (Late st Contact Info) Description 05/02/2023 Refill [facility] - Neurology [address] [place] [address] Karen Reyes MD [address] [place] [phone] MEDICATION REFILL Social History Tobacco Use Types [...] Recorded Patient Health Questionnaire-2 Score 1 03/02/2023 [facility] [place] of Occupat ional Health - Occupational Stress [...] encounter Miscellaneous Notes * Telephone Encounter - Santana Delatorre - 05/02/2023 11:03 AM CST Refill Request Meredith Frost CRISTELA: 04/2023 NOV scheduled: Visit date not found LRF: Qty Disp: # of refills: Allergies: No Known Allergies Pended Medication Order: Requested Prescriptions Pending Prescriptions Disp Refills ??? baclofen (Lioresal) 10 MG tablet Sig: May cause drowsiness. IVER documented in this encounter Plan of Treatment Upcoming Encounters Date Type Department Care Team (Late st Contact Info) Description 04/04/2024 8:30 AM RECEIVER Office Visit [facility] - Dermatology [address] [place] [address] [place] [phone] Marlys Zaragoza MD [address] [place] [address] 3 [place] [phone] 09/03/2024 9:00 AM CDT Office Visit [facility] - Neurology [address] [place] [phone] Melissa Crook APRN-STRUCTURAL LAYOUT WORKER [address] [place] [address] documented as of this encounter Visit Diagnoses Not on filedocumented in this encounter Care Teams Dining Service Supervisor Relationship Specialty Start Date End Date Lauren Saba THREAD MARKER-STRUCTURAL LAYOUT WORKER [address] [place] [phone] PCP - General 01/14/18 05/10/23 documented as of this encounter
--- OUTSIDE RECORDS SUMMARY | 2024-03-22 16:36 | XMS_ITS | Encounter Summary ---
Author Organization [facility] Health Address [address] [facility] [place] [address] Care Team Providers Care Facsimile Operator Name Role Phone Lauren Saba APRN-TRADITIONAL CHINESE HERBALIST Primary Care Provider A, Unknown Practice Primary Care Provider [phone] Unknown, Provider Primary Care Provider Joy Garvey PA-C Primary Care Provider [phone] Reason for Visit * Reason Onset Date Comments MEDICATION REFILL 04/03/2023 Encounter Details Date Type Department Care Team (Late st Contact Info) Description 04/03/2023 Refill [facility] - Neurology [address] [place] [phone] Melissa Crook APRN-TRADITIONAL CHINESE HERBALIST [address] [place] [phone] MEDICATION REFILL Social History Tobacco Use Types [...] Recorded Patient Health Questionnaire-2 Score 1 03/02/2023 [facility] of Occupat ional Health - Occupational [...] encounter Miscellaneous Notes * Telephone Encounter - Royal Danielle MA - 04/03/2023 3:39 PM CST Meredith Frost CRISTELA: 01/09/2023 NOV due: NOV date: 04/12/2023 lacosamide 200 MG tablets LRF: 01/09/2023 Quantity dispensed: 60 tablets (30-day supply) # refills: 0 ING OPERATOR documented in this encounter Plan of Treatment Upcoming Encounters Date Type Department Care Team (Late st Contact Info) Description 04/04/2024 8:30 AM ISSUING OPERATOR Office Visit [facility] - Dermatology [address] [place] [address] [place] [phone] Marlys Zaragoza MD [address] [place] [address] 3 [place] [phone] 09/03/2024 9:00 AM CDT Office Visit [facility] - Neurology [address] [place] [phone] Melissa Crook APRN-TRADITIONAL CHINESE HERBALIST [address] [place] [phone] documented as of this encounter Visit Diagnoses Diagnosis Seizures (HCC) Other convulsions documented in this encounter Care Teams Facsimile Operator Relationship Specialty Start Date End Date Lauren Saba APRN-TRADITIONAL CHINESE HERBALIST [address] [place] [phone] PCP - General 01/14/18 05/10/23 A, Unknown Practice [address] [place] [phone] PCP - General 05/11/23 09/10/23 Unknown, Provider PCP - General 09/11/23 01/28/24 Joy Sheppard PA-C [address] [place] [phone] PCP - General 01/29/24 documented as of this encounter
--- OUTSIDE RECORDS SUMMARY | 2024-03-22 16:36 | XMS_ITS | Encounter Summary ---
Author Organization [facility] Health Address [address] [facility] [place] [address] Care Team Providers Care Investment Manager Name Role Phone Lauren Saba Jose Eduardo KNOX-SPEECH LANGUAGE THERAPIST Primary Care Provider Reason for Visit * Reason Onset Date Comments Care Management 01/12/2023 Encounter Details Date Type Department Care Team (Late st Contact Info) Description 01/12/2023 Telephone [facility] Neurology [address] [facility], [place] [address] Mckayla Haywood MD [address] [place] [address] [place] [address] Care Management Social History Tobacco Use Types Packs/Day Years [...] Recorded Patient Health Questionnaire-2 Score 0 01/05/2023 [facility] [place] of Occupat ional Health - Occupational Stress [...] place to sleep or slept in a [place] health care facility (including now)? No 11/21/2022 Education Answer Date [...] Telephone Encounter - Dilma Gruber RN - 01/12/2023 4:30 PM CDT Spoke with patient and informed her that if she needs urgent care that she needs to go to the ED [facility] is not in clinic today. Patient states that she also thinks that she is dehydrated. Urged patient to go to the ER if that is the case. She v/u but refuses to go to the ER. * Telephone Encounter - Santana Delatorre - 01/12/2023 3:51 PM CDT Patient called stating that she is having a real bad head. She say she have taken 2 ibuprofen yesterday and it`s not working for her and want to know if it`s something that we could do for rather than going to the hospital. Please advise Thanks Lamin documented in this encounter Plan of Treatment Upcoming Encounters Date Type Department Care Team (Late st Contact Info) Description 04/04/2024 8:30 AM TRANSFORMER ASSEMBLY SUPERVISOR Office Visit [facility] - Dermatology [address] [place] [address], [place] [address] Marlys Zaragoza MD [address] [place] [address] 3 [address] [place] [address] 09/03/2024 9:00 AM CDT Office Visit [facility] - Neurology [address] [place] [address], [place] [address] Melissa Crook APRN-NAIF [address] [place] [address] documented as of this encounter Visit Diagnoses Not on filedocumented in this encounter Care Teams Investment Manager Relationship Specialty Start Date End Date Lauren Saba APRN-CNP [address] [place] [phone] PCP - General 01/14/18 05/10/23 documented as of this encounter
--- OUTSIDE RECORDS SUMMARY | 2024-03-22 16:36 | XMS_ITS | Encounter Summary ---
Author Organization [facility] Health Address [address] [facility] [place] [address] Care Team Providers Care Band Reamer Machine Operator Name Role Phone WandyLauren APRN-COUNSELING CENTER DIRECTOR Primary Care Provider Reason for Visit * Reason Onset Date Comments Medication Clarification 01/24/2023 Briviac t Encounter Details Date Type Department Care Team (Late st Contact Info) Description 01/24/2023 Telephone [facility] - Neurology [address] [place] [address] Melissa Crook APRN-CNP [address] [place] [address] Medication Clarification (Briviact) Social History Tobacco Use Types Packs/Day Years [...] Patient Health Questionnaire-2 Score 0 01/05/2023 [facility] [place] of Occupat ional Health - Occupational Stress [...] encounter Miscellaneous Notes * Telephone Encounter - Hortencia Flores - 01/24/2023 11:21 AM CST 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 Is it 75mg tablets, twotablets two times a day? And, he still has 100mg tablets- can he break those in half so they don't go to waste? Please review and advise. S WASHER documented in this encounter Plan of Treatment Upcoming Encounters Date Type Department Care Team (Late st Contact Info) Description 04/04/2024 8:30 AM PRESS WASHER [facility]erm[facility] [address] [place] [phone] Marlys Zaragoza MD [address] [place] [address] 3 [place] [phone] 09/03/2024 9:00 AM CDT Office Visit [facility] - Neurology [address] [place] [address], [place] [phone] Melissa Crook APRN-CNP [address] [place] [address] documented as of this encounter Visit Diagnoses Not on filedocumented in this encounter Care Teams Band Reamer Machine Operator Relationship Specialty Start Date End Date Lauren Saba APRN-COUNSELING CENTER DIRECTOR [address] [place] [phone] PCP - General 01/14/18 05/10/23 documented as of this encounter
--- OUTSIDE RECORDS SUMMARY | 2024-03-22 16:36 | XMS_ITS | Encounter Summary ---
Author Organization [facility] Health Address [address] [facility] [place] [address] Care Team Providers Care Personnel Officer Name Role Phone Lauren Saba Jose Eduardo KNOX-MANUFACTURED BUILDINGS SUPERVISOR Primary Care Provider Encounter Details Date Type Department Care Team (Latest Contact Info) Description 01/30/2023 Travel Social History Tobacco Use Types Packs/Day [...] Recorded Patient Health Questionnaire-2 Score 0 01/05/2023 [facility] [place] of Occupat ional Health - Occupational Stress [...] st Contact Info) Description 04/04/2024 8:30 AM ENT CONSULTANT Office Visit [facility] - Dermatology [address] [place] [address], [place] [phone] Marlys Zaragoza MD [address] [place] [address] [address] [place] [phone] 09/03/2024 9:00 AM CDT Office Visit [facility] - Neurology [address] [place] [address], [place] [phone] Melissa Crook APRN-CNP [address] [place] [phone] documented as of this encounter Visit Diagnoses Not on filedocumented in this encounter Care Teams Personnel Officer Relationship Specialty Start Date End Date Lauren Saba APRN-MANUFACTURED BUILDINGS SUPERVISOR [address] [place] [phone] PCP - General 01/14/18 05/10/23 documented as of this encounter
--- OUTSIDE RECORDS SUMMARY | 2024-03-22 16:36 | XMS_ITS | Encounter Summary ---
Author Organization [facility] Health Address [address] [place] [address] Care Team Providers Care Chipper Machine Operator Name Role Phone Lauren Saba Jose Eduardo KNOX-MARKETING TECHNOLOGIST Primary Care Provider Reason for Visit * Reason Comments Refill Request Encounter Details Date Type Department Care Team (Late st Contact Info) Description 07/25/2022 Refill [facility] [address] [facility], [facility] [place] [address] Markus Cabral MD [address] [place] [address] Refill Request Social History Tobacco Use Types [...] Date Recorded PHQ2 TOTAL SCORE 0 03/02/2022 [facility] [place] of Occupat ional Health - Occupational Stress [...] slept in a retirement (including now)? No 06/21/2022 Education Answer Date [...] encounter Miscellaneous Notes * Telephone Encounter - Sami Bahena MA - 07/26/2022 8:43 AM CDT Refill Request Meredith Whitt Santosh CRISTELA: 06/14/2022 NOV due: rto in 3 months JAN scheduled: LRF: 05/05/2022 Qty Disp: 180 # of refills: 1 Allergies: No Known Allergies Pended Medication Order: Requested Prescriptions Pending Prescriptions Disp Refills ??? lacosamide (Vimpat) 200 MG tablet [Pharmacy Med Name: LACOSAMIDE 200MG TABLETS] 180 tablet Sig: TAKE 1 TABLET BY MOUTH TWICE DAILY documented in this encounter Plan of Treatment Upcoming Encounters Date Type Department Care Team (Late st Contact Info) Description 04/04/2024 8:30 AM INTERPRETIVE NATURALIST Office Visit [facility] - Dermatology [address] [place] [address] [place] [phone] Marlys Zaragoza MD [address] [place] [address] 3 [place] [phone] 09/03/2024 9:00 AM CDT Office Visit [facility] - Neurology [address] [place] [phone] Melissa Crook APRN-CNP [address] [place] [phone] documented as of this encounter Visit Diagnoses Diagnosis Seizures (HCC) Other convulsions documented in this encounter Care Teams Chipper Machine Operator Relationship Specialty Start Date End Date Lauren Saba APRN-CNP [address] [place] [phone] PCP - General 01/14/18 2 documented as of this encounter
--- OUTSIDE RECORDS SUMMARY | 2024-03-22 16:36 | XMS_ITS | Encounter Summary ---
Author Organization [facility] Health Address [address] [place] [address] Care Team Providers Care Squirt Machine Operator Name Role Phone Lauren Saba Jose Eduardo KONX-RPG DEVELOPER Primary Care Provider Reason for Visit * Reason Comments Contact Lens Exam Pt presents for a co ntact lens exam.Pt wears Acuvue Oasys One Day OU.Fit from [employer].Pt reports fluttering OS, usually in the evening, pt thinks it is contact lens related. Encounter Details Date Type Department Care Team ([facility] Contact Info) Description 09/13/2022 10:30 AM CDT Office Visit [facility] Ophthalmology [address] [place] [phone] Tania Velasquez M, OD [address] [facility] DEPT [place] [phone] Strabismic amblyopia of left eye (Primary Dx); Contact lens/glasses fitting; Refractive error Social History Tobacco Use Types Packs/Day Years [...] Date Recorded PHQ2 TOTAL SCORE 0 09/07/2022 [facility] [...] slept in a snf (including now)? No 06/21/2022 Education Answer Date [...] Recorded In the last 10 days, have gregg u been in contact with someone who [...] No 05/13/2021 documented as of this encounter Progress Notes * Tania Velasquez, OD - 09/13/2022 1:23 PM CDT HPI Chief Complaint Patient presents with ??? Contact Lens Exam Pt presents for a contact lens exam. Pt wears Acuvue Oasys One Day OU. Fit from [employer]. Pt reports fluttering OS, usually in the evening, pt thinks it is contact lens related. The following was also reviewed and updated: Current Outpatient Medications Medication Sig Dispense Refill ??? Abilify Maintena 300 MG injection Inject 300 (three hundred) mg into muscle every 28 days ; last received on 05/18/2021. Next due 06/15/2021. Reasons: Unspecified Psychosis. Behavioral Disturbances in Dementia (Patient not taking: Reported on 01/12/2022) 1 Each 5 ??? baclofen (LIORESAL) 10 MG tablet Take 1 (one) tablet by mouth 2 times daily May cause drowsiness. Reasons: Muscle Spasticity 60 tablet 0 ??? docusate sodium (COLACE) 100 MG capsule Take 1 (one) capsule by mouth every 12 hours ??? escitalopram (Lexapro) 10 MG tablet Take 1 (one) tablet by mouth once daily Reasons: Major Depressive Disorder 30 tablet 2 ??? escitalopram (Lexapro) 20 MG tablet Take 1 (one) tablet by mouth once daily 30 tablet 2 ??? fluticasone propionate (FLONASE) 50 MCG/ACT nasal spray [place] 2 (two) sprays into each nostril once daily 1 Each 0 ??? folic acid (Folvite) 1 MG tablet Take 1 (one) tablet by mouth once daily 30 tablet 0 ??? ibuprofen (Motrin) 800 MG tablet Take 1 (one) tablet by mouth every 6 hours as needed for Pain 30 tablet 3 ??? lacosamide (Vimpat) 200 MG tablet TAKE 1 TABLET BY MOUTH TWICE DAILY 180 tablet 2 ??? levETIRAcetam (Keppra) 500 MG tablet TAKE 1 TABLET BY MOUTH TWICE DAILY 180 tablet 1 ??? mirabegron ER 24hr (MYRBETRIQ) 50 MG tablet Take 1 (one) tablet by mouth once daily 30 tablet 3 ??? multivitamin daily tablet Take 1 (one) tablet by mouth once daily 30 tablet 0 ??? onabotulinumtoxin A (BOTOX) 100 units injection Inject 200 (two hundred) Units into muscle Every 90 days Reasons: Migraine Headache 2 Each 3 ??? SYMBICORT 160-4.5 MCG/ACT inhaler Inhale 2 (two) puffs by mouth 2 times daily ??? thiamine (VITAMIN B-1) 100 MG tablet Take 1 (one) tablet by mouth once daily 30 tablet 0 ??? tretinoin (Retin-A Micro) 0.04 % gel Pea sized amount to entire face at night. 30 days supply. 20 g 3 ??? tretinoin (Retin-A) 0.05 % cream Pea sized amount to entire face at night. 30 days supply. 20 g11 ??? Ventolin HFA 108 (90 Base) MCG/ACT inhaler Inhale 2 (two) puffs by mouth every 4 hours as needed ??? zonisamide (Zonegran) 100 MG capsule TAKE 5 CAPSULES BY MOUTH AT BEDTIME 450 capsule 3 Current Facility-Administered Medications Medication Dose Route Frequency Provider Last Rate Last Admin ??? ARIPiprazole ER (Abiliflenore Maintena) prefilled syringe 300 mg 300 mg Intramuscular q28 days Venkata Glez MD 300 mg at 12/30/21 1024 No Known Allergies Review of Systems Past Medical History: Diagnosis Date ??? Asthma ??? Migraines ??? MS (multiple sclerosis) (CMS/HCC) ??? PID (pelvic inflammatory disease) ??? Seizures (CMS/HCC) Past Surgical History: Procedure Laterality Date ??? KNEE ARTHROPLASTY Right ??? CO CHEMODENERV MUSC MIGRAINE 07/18/2017 ??? CO CHEMODENERV MUSC MIGRAINE 10/17/2017 ??? CO CHEMODENERV MUSC MIGRAINE 01/14/2018 ??? CO CHEMODENERV MUSC MIGRAINE 04/15/2018 ??? CO CHEMODENERV MUSC MIGRAINE 07/22/2018 ??? CO CHEMODENERV MUSC MIGRAINE 10/21/2018 ??? CO CHEMODENERV MUSC MIGRAINE 10/13/2019 ??? CO CHEMODENERV MUSC MIGRAINE 01/12/2020 ??? CO CHEMODENERV MUSC MIGRAINE 04/19/2020 ??? CO CHEMODENERV MUSC MIGRAINE 07/21/2020 ??? CO CHEMODENERV MUSC MIGRAINE 11/01/2020 ??? CO CHEMODENERV MUSC MIGRAINE 02/14/2021 ??? CO CHEMODENERV MUSC MIGRAINE 07/13/2021 ??? CO CHEMODENERV MUSC MIGRAINE 10/21/2021 ??? CO CHEMODENERV MUSC MIGRAINE 01/18/2022 ??? CO CHEMODENERV MUSC MIGRAINE 05/05/2022 ??? CO CHEMODENERV MUSC MIGRAINE 09/08/2022 ??? Tonsillectomy Bilateral Family History Problem Relation [...] - Linear) Right Left Dist cc 20/20 - 20/50 Dist ph cc 20/40 - Correction: Contacts Pupils Shape React APD Right Round Brisk None Left Round Brisk None Visual De Left Right Full Full Extraocular Movement Right Left Full Full Neuro/Psych Oriented x3: Yes Mood/Affect: Normal Strabismus Exam Positive 4 WILD test. Strabismic OS.small ET Slit Lamp and Fundus Exam External Exam Right Left External Normal Normal Slit Lamp Exam Right Left Lids/Lashes Normal Normal Conjunctiva/Sclera White and quiet White and quiet Cornea Clear Clear Anterior Chamber Deep and quiet Deep and quiet Iris Round and reactive Round and reactive Lens Clear Clear Anterior Vitreous Normal Normal Fundus Exam Right Left Disc flat, no edema flat, no edema C/D Ratio 0.4 0.4 Refraction Manifest Refraction Sphere Cylinder Wade Dist VA Right -6.50 -0.75 025 20/20- Left -6.00 -0.50 150 20/25- Final Rx Sphere Cylinder Wade Dist VA Right -6.50 -0.75 025 20/20- Left -6.00 -0.50 150 20/25- Type: SVL Expiration Date: Contact Lens Exam Current Contact Lens Rx Brand Base Curve Diameter Sphere Cylinder Lens Addl. Specs Dist VA Centration Right Acuvue Oasys 1 Day 8.5 14.3 -6.25 Sphere Habitual 20/20 Well-centered Left Acuvue Oasys 1 Day 8.5 14.3 -6.00 Sphere Habitual 20/50 Well-centered Movement Over-Sphere Over-Dist VA Right Adequate Left Adequate Current Contact Lens Rx #2 (Trial Lens, Dispensed) Brand Base Curve Diameter Sphere Cylinder Lens Addl. Specs Dist VA Centration Right 1 Day Acuvue Moist 8.5 14.2 -6.50 (Only had -6.00 in stock) 20/20- Well-centered Left 1 Day Acuvue Moist 8.5 14.2 -5.75 20/20- Well-centered Movement Over-Sphere Over-Dist VA Right Adequate [place] Left Adequate +0.25 20/20 Final Contact Lens Rx Brand Base Curve Diameter Sphere Right Acuvue Oasys 1 Day 8.5 14.3 -6.00 Left Acuvue Oasys 1 Day 8.5 14.3 -5.50 Expiration Date: 09/14/2023 Replacement: Daily Additional Notes Pt states 1 Day Acuvue Moist feel stuck on. Will keep pt in current brand she came in wearing. Study findings: Assessment/Plan ADD ON today Scheduled in error in wrong clinic for CLs Discussed w/ pt need for comp/DFE exam within 1 yr CL and brief eye exam only I have verified the documentation of the optometry student, including all history, exam, and medical decision-making details. I have personally performed a physical exam and have personally reviewed the data to support my medical decision-making as outlined in the optometry student's note, and I arrive independently at the same conclusion. I have discussed findings and plan with patient. Note written with student. Please see student note for details. Mild strab amblyopia OS Microstrabismus OS Positive 4 WILD test OS. Small ET OS Nearly 20/20 each eye. OD seems mildly better than OS - stable per pt No history of EOM surgery H/o ANIA per chart Full EOM ranges today. Pt reports occasional flutter OS. Refractive Error Pt habitually wore Acuvue Oasys 1 Day -6.25 OD, -6.00 OS. Today, updated CL Rx to Acuvue Oasys 1 Day -6.00 OD, -5.50 OS. Pt ed on healthy habits with CL wear. Updated spec Rx, update PRN. RTC 1 year for annual examination with DFE or sooner if problems arise. Tania Velasquez, OD * SummerChantelle wilcoxh - 09/13/2022 11:32 AM CDT Microstrabismus OS Positive 4 WILD test OS. Small ET OS. Pt BCVA 20/20 in CL, 20/25- in specs. H/o ANIA Full EOM ranges today. Pt reports occasional flutter OS. Refractive Error Pt habitually wore Acuvue Oasys 1 Day -6.25 OD, -6.00 OS. Today, updated CL Rx to Acuvue Oasys 1 Day -6.00 OD, -5.50 OS. Pt ed on healthy habits with CL wear. Updated spec Rx, update PRN. RTC 1 year for annual examination with DFE or sooner if problems arise. documented in this encounter Plan of Treatment Upcoming Encounters Date Type Department Care Team (Late st Contact Info) Description 04/04/2024 8:30 AM SALES CONSULTANT INSURANCE Office Visit [facility] - Dermatology [address] [place] [address], [place] [address] Marlys Zaragoza MD [address] [place] [address] 3 [place] [phone] 09/03/2024 9:00 AM CDT Office Visit [facility] - Neurology [address] [place] [phone] Melissa Crook APRN-RPG DEVELOPER [address] [place] [phone] documented as of this encounter Visit Diagnoses Diagnosis Strabismic amblyopia of left eye- Primary Strabismic amblyopia Contact lens/glasses fitting Fitting and adjustment of spectacles and contact lenses Refractive error Unspecified disorder of refraction and accommodation documented in this encounter Care Teams Squirt Machine Operator Relationship Specialty Start Date End Date Lauren Saba CONCRETE TRUCK DRIVER-RPG DEVELOPER [address] [place] [phone] PCP - General 01/14/18 05/10/23 documented as of this encounter
--- OUTSIDE RECORDS SUMMARY | 2024-03-22 16:36 | XMS_ITS | Encounter Summary ---
Author Organization [facility] Health Address [address] [place] [address] Care Team Providers Care Stroboroma Operator Name Role Phone Lauren Saba Jose Eduardo KNOX-PORTABLE TRACKMAN Primary Care Provider Encounter Details Date Type Department Care Team (Latest Contact Info) Description 02/13/2023 Travel Social History Tobacco Use Types Packs/Day [...] Recorded Patient Health Questionnaire-2 Score 0 02/07/2023 [facility] Occupat ional Health - Occupational Stress [...] st Contact Info) Description 04/04/2024 8:30 AM STOGY MAKER Office Visit [facility] - Dermatology [address] [place] [address], [place] [phone] Marlys Zaragoza MD [address] [place] [address] [address] [place] [phone] 09/03/2024 9:00 AM CDT Office Visit [facility] - Neurology [address] [place] [address], [place] [phone] Melissa Crook APRN-CNP [address] [place] [phone] documented as of this encounter Visit Diagnoses Not on filedocumented in this encounter Care Teams Stroboroma Operator Relationship Specialty Start Date End Date Lauren Saba APRN-PORTABLE TRACKMAN [address] [place] [phone] PCP - General 01/14/18 05/10/23 documented as of this encounter
--- OUTSIDE RECORDS SUMMARY | 2024-03-22 16:36 | XMS_ITS | Encounter Summary ---
Author Organization [facility] Health Address [address] [place] [address] Care Team Providers Care Director Hair Name Role Phone Lauren Saba Jose Eduardo KNOX-MALL PLANT CARETAKER Primary Care Provider Reason for Visit * Reason Comments MIGRAINE * Procedure (Routine) - Closed Specialty Diagnoses / Procedures Referred By Contac t Referred To Contact Neurology Diagnoses Chronic migraine without aura, intractable, without status migrainosus Procedures BOTULINUM TOXIN TYPE A, PER UNIT INJ Mckayla Haywood MD [address] [place] [address] [address] [place] [address] Mckayla Haywood MD [address] [place] [address] [address] [place] [address] Referral ID Status Reason Start Date Expiration Date Visits Re quested Visits Authorized [id number] Closed 08/21/2022 02/20/2023 4 2 Encounter Details Date Type Department Care Team (Latest Contact Info) Description 09/08/2022 1:00 PM CDT Procedure visit [facility] - Neurology [address] [place] [address], [place] [phone] Mckayla Haywood MD [address] [place] [address] [address] [place] [address] Intractable chronic 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 without [...] Date Recorded PHQ2 TOTAL SCORE 0 09/07/2022 [facility]at ional Health - Occupational [...] Sign Reading Time Taken Comments Blood Pressure 116/72 09/08/2022 12:32 PM CDT Pulse 87 09/08/2022 12:32 PM CDT Temperature 36.8 ??C (98.2 ??F) 09/08/2022 12:32 PM C DT Respiratory Rate - - Oxygen Saturation 98% 09/08/2022 12:32 PM CDT Inhaled Oxygen Concentration - - Weight 66.7 kg (147 lb) 09/08/2022 12:32 PM CDT Height 165.1 cm (5' 5 ) 09/08/2022 12:32 PM CDT Body Mass Index 24.46 09/08/2022 12:32 PM CDT documented in this encounter Functional Status [...] as of this encounter Progress Notes * Mckayla Haywood MD - 09/08/2022 12:55 PM CDT The patient has a long history of chronic migraine, which has been unresponsive to multiple medications. The patient has nausea and light sensitivity with headaches. Here for botox for chronic migraine. The patient has had significant benefit from Botox with a greater than 50% reduction in headache frequency and severity. Follows in MS clinic and epilepsy clinic. Current Outpatient Medications Medication Sig Dispense Refill [...] fluticasone propionate (FLONASE) 50 MCG/ACT nasal spray [place] 2 (two) sprays into each nostril once [...] Last Rate Last Admin ??? ARIPiprazole ER (Lata Maintena) prefilled syringe 300 mg 300 mg Intramuscular q28 days Venkata Glez MD 300 mg at 12/30/21 1024 BP 116/72 Pulse 87 Temp 98.2 ??F (36.8 ??C) Ht 1.651 m (5' 5 ) Wt 66.7 kg (147 lb) SpO2 98% Awake, alert, Motor: Moves all extremities symmetrically Diagnosis: Chronic migraine without aura, intractable, Without status migrainosus Administer Botox for chronic migraine today. See procedure note for details. documented in this encounter Procedure Notes * Mckayla Haywood MD - 09/08/2022 12:58 PM CDTAssociated Order(s): PROC INJECTION - BOTOX Procedure(s): [place] CHEMODENERV MUSC MIGRAINE Pre-Procedure Diagnose(s): Intractable chronic 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 without status migrainosus Post-Procedure Diagnose(s): Intractable chronic 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 without status migrainosus Botox Procedure Note ?? Patient's identity confirmed by having patient say first and last name. ?? Diagnosis: Chronic migraine ?? Procedure code: 48341 ?? History: ?? Baseline number of headaches per month:30 Current headaches per month: typically 3-4 per month, but varies ?? Current migraine prophylactic medications: Current migraine abortive treatments: ? Date of last injection: 05/05/2022 (off 3 month schedule) ?? Duration of [...] ?? Ordered 200 units for next visit. documented in this encounter Plan of Treatment Upcoming Encounters Date Type Department Care Team (Late st Contact Info) Description 04/04/2024 8:30 AM SPEEDER HAND Office Visit [facility] - Dermatology [address] [place] [address], [place] [phone] [place] [address] [place] [address] [address] [place] [phone] 09/03/2024 9:00 AM CDT Office Visit [facility] - Neurology [address] [place] [address], [place] [phone] Melissa Crook, ASSESSMENT CONSULTANT-MALL PLANT CARETAKER [address] [place] [phone] documented as of this encounter Procedures Procedure Name Priority Date/Time Associated Diagnosis Comments [place] CHEMODENERV MUSC MIGRAINE Routine 09/08/2022 12:58 PM CDT Intractable chronic 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 without status migrainosus documented in this encounter Results * [place] CHEMODENERV MUSC MIGRAINE (09/08/2022 12:58 PM CDT) Narrative Mckayla Haywood MD - 09/08/2022 12:58 PM CDT Mckayla Haywood MD ? 12/11/2022 12:59 PM Botox Procedure Note ?? Patient's identity confirmed by having patient say first and last name. ?? Diagnosis: Chronic migraine ?? Procedure code: 05382 ?? History: ?? Baseline number of headaches [...] Mckayla Haywood MD PROCEDURE/MINOR SURG ICAL ORDERABLES documented in this encounter Visit Diagnoses Diagnosis Intractable chronic 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 without status migrainosus- Primary Chronic migraine without aura, with intractable migraine, so stated, without mention of status migrainosus documented in this encounter Administered Medications Inactive Administered Medications - up to 3 most recent administrations Medication Order MAR Action Action Date Dose Rate Site onabotulinumtoxin A (Botox) injection 200 Units 200 Units, Intramuscular, ONCE, 1 dose, On Sun09/08/22 at 1315 $ Given 09/08/2022 1:37 PM CDT 200 Units Head documented in this encounter Care Teams Director Hair Relationship Specialty Start Date End Date Lauren Saba, ASSESSMENT CONSULTANT-MALL PLANT CARETAKER [address] [place] [phone] PCP - General 01/14/18 05/10/23 documented as of this encounter
--- OUTSIDE RECORDS SUMMARY | 2024-03-22 16:36 | XMS_ITS | Encounter Summary ---
Author Organization [facility] Health Address [address] [facility] [place] [address] Care Team Providers Care [employer] Executive Name Role Phone Lauren Saba Jose Eduardo KNOX-OFFICE SUPPORT CLERK Primary Care Provider Reason for Visit * Oncology Prior Authorization (Routine) - Closed Specialty Diagnoses / Procedures Referred By Contac t Referred To Contact Diagnoses MS (multiple sclerosis) (HCC) Procedures FL INJ OCRELIZUMAB 1MG Devan Renee MD [address] [facility] [address] [facility] [place] [address] [facility] [place] [address] Referral ID Status Reason Start Date Expiration Date Visits Re quested Visits Authorized [id number] Closed 12/20/2022 12/21/2023 2 2 Encounter Details Date Type Department Care Team (Latest Contact Info) Description 12/21/2022 9:30 AM CDT Procedure visit [facility] - Infusion [address] [place] [address] MS (multiple sclerosis) (HCC) Social [...] Date Recorded PHQ2 TOTAL SCORE 0 09/07/2022 [facility]at [facility] Health - Occupational [...] slept in a prison (including now)? No 11/21/2022 Education Answer Date [...] Sign Reading Time Taken Comments Blood Pressure 119/75 12/21/2022 9:20 AM CDT Pulse 104 12/21/2022 9:20 AM CDT Temperature 36.7 ??C (98.1 ??F) 12/21/2022 9:20 AM CD T Respiratory Rate 16 12/21/2022 9:20 AM CDT Oxygen Saturation 99% 12/21/2022 9:20 AM CDT Inhaled Oxygen Concentration - - Weight 71.1 kg (156 lb 12.8 oz) 12/21/2022 9:20 AM CDT Height 165.1 cm (5' 5 ) 12/21/2022 9:20 AM CDT Body Mass Index 26.09 12/21/2022 9:20 AM CDT documented in this encounter Functional [...] st Contact Info) Description 04/04/2024 8:30 AM TIP TESTER Office Visit [facility] - Dermatology [address] [place] [address], [place] [phone] Marlys Zaragoza MD [address] [place] [address] [address] [place] [phone] 09/03/2024 9:00 AM CDT Office Visit [facility] - Neurology [address] [facility], [place] [phone] Melissa Crook APRN-OFFICE SUPPORT CLERK [address] [place] [phone] documented as of this encounter Visit Diagnoses Diagnosis MS (multiple sclerosis) (HCC)- Primary Multiple sclerosis documented in this encounter Administered Medications Inactive Administered Medications - up to 3 most recent administrations Medication Order MAR Action Action Date Dose Rate Site acetaminophen (Tylenol) tablet 650 mg 650 mg, Oral, ONCE, 1 dose, On Yaa 12/21/22 at 0930, Maximum allowable Acetaminophen amount = 4 Grams [...] request must be documented in the MAR. $ Given 12/21/2022 9:37 AM CDT 650 mg diphenhydrAMINE (Benadryl) capsule 50 mg 50 mg, Oral, ONCE, 1 dose, On Yaa 12/21/22 at 0930, Use IV if patient not tolerating PO Administer pre-medications 30-60 minutes prior to ocrelizumab. $ Given 12/21/2022 9:37 AM CDT 50 mg methylPREDNISolone sod succ (SOLU-Medrol) injection 100 mg 100 mg, Intravenous, ONCE, 1 dose, On Yaa 12/21/22 at 0930, Reconstituted solution may be given via direct IV injection over 2-5 minutes without further dilution. Administer pre-medications 30-60 minutes prior to ocrelizumab. $ Given 12/21/2022 9:38 AM CDT 100 mg ocrelizumab (Ocrevus) 600 mg in 0.9% NaCl IV 520 mL infusion 600 mg, at 0-200 mL/hr, Intravenous, CONTINUOUS, Starting on Yaa 12/21/22 at 1015, Until Yaa 12/21/22 at 1439, For subsequent infusion if previously tolerated Begin [...] 0.22 micron in-line filter $ New Bag/Syringe 12/21/2022 10:21 AM CDT 600 mg 100 mL/hr documented in this encounter Care Teams [employer] Executive Relationship Specialty Start Date End Date Lauren Saba, SUPERVISOR BOAT OUTFITTING-OFFICE SUPPORT CLERK [address] [place] [phone] PCP - General 01/14/18 05/10/23 documented as of this encounter
--- OUTSIDE RECORDS SUMMARY | 2024-03-22 16:36 | XMS_ITS | Encounter Summary ---
Author Organization [facility] Health Address [address] [place] [address] Care Team Providers Care Mortgage Servicing Specialist Name Role Phone [place], Lauren Jose Eduardo KNOXPHP WEB DEVELOPER Primary Care Provider Reason for Visit * Reason Comments Follow-up Seizures Encounter Details Date Type Department Care Team (Late st Contact Info) Description 04/12/2023 10:00 AM LACQUER DIPPING MACHINE OPERATOR Office Visit [facility] - Neurology [address] [place] [address] Melissa Crook APRN-CNP [address] [place] [phone] Seizures (HCC) (Primary Dx) Social History Tobacco [...] Recorded Patient Health Questionnaire-2 Score 1 03/02/2023 [facility] - Occupational [...] Sign Reading Time Taken Comments Blood Pressure 116/78 04/12/2023 9:52 AM LACQUER DIPPING MACHINE OPERATOR Pulse 77 04/12/2023 9:52 AM LACQUER DIPPING MACHINE OPERATOR Temperature 36.7 ??C (98 ??F) 04/12/2023 9:52 AM LACQUER DIPPING MACHINE OPERATOR Respiratory Rate - - Oxygen Saturation 98% 04/12/2023 9:52 AM LACQUER DIPPING MACHINE OPERATOR Inhaled Oxygen Concentration - - Weight 70.8 kg (156 lb) 04/12/2023 9:52 AM LACQUER DIPPING MACHINE OPERATOR Height - - Body Mass Index 25.96 03/16/2023 1:35 PM LACQUER DIPPING MACHINE OPERATOR documented in this encounter Functional Status Functional [...] this encounter Patient Instructions * Patient Instructions* Melissa Crook APRN-CNP - 04/12/2023 9:57 AM LACQUER DIPPING MACHINE OPERATOR -Needs follow-up with Dr. Thorpe -Seizure follow-up 5 month UER DIPPING MACHINE OPERATOR documented in this encounter Progress Notes * Melissa Crook APRN-CNP - 04/12/2023 10:00 AM CST Epilepsy Clinic Note PCP ADI Botello DATE OF ENCOUNTER: 04/12/2023 CHIEF COMPLAINT: Seizures AGE OF ONSET 24 years old SEMIOLOGY ?? - Aura Lightheaded, flushed Duration: <10 minutes Frequency: 1-2 times per month - Ictus #1.) Generalized tonic clonic, LOC, foaming at mouth Duration: 1-2 minutes Frequency: every few months? (previously controlled for 10+ years til 04/15/19) - Post-ictus Sleepy, fatigue, confusion ?? SEIZURE CONTROL Aura: 01/23/2023, 01/22/2023, 01/08/2023 Date of last seizure 05/01/2022 PRE-VISIT MEDICATION Name Pill Size Frequency Total/Day Level Zonisamide 100 0-5 500mg/day 20.2 (04/10) Lacosamide 200mg 1-1 400mg/day 7.3 (04/10) Briviact 75mg 2-2 300mg/day Folic acid 1mg 1-0 1mg/day COMPLIANCE Good AGGRAVATING FACTORS: infections (UTIs), stress TREATMENT HISTORY Name Allergy/Side Effects/Ineffectiveness Topamax Memory problems EE02/03/2021: [facility] (Dr. Terrell) Interpretation: This is an abnormal EEG due to 1) left frontotemporal epileptiform discharges, 2) left hemispheric slowing maximal around the left temporal region, and 3) mild to moderate generalized slowing. 01/03/2021: [facility] (Dr. Angel) Impression: ??Abnormal EEG. ??Left frontal spike and wave and focal slowing, still present, but much less frequent with more return to normal background than seen on previous EEG. ??No seizure like activity was observed. Correlation with clinical findings is Needed. 12/31/2020: [facility] (Dr. Angel) Impression: ??Abnormal EEG. ??Left frontotemporal discharges with focal slowing, suggests likely epileptogenicity from this region. ??No clinical seizures were seen. ??Correlation with clinical findings is needed. 04/15/2019: [facility] IMPRESSION: ??Normal awake and drowsy record IMAGIN05/13/2022: MRI Brain WWO Contrast: [facility] IMPRESSION: 1.Multiple intracranial white matter lesions compatible with multiple sclerosis. No new T2 lesions and no new enhancing lesions to suggest active demyelination. Moderate parenchymal volume loss, advanced for the patient's stated age. NEUROPSYCHOLOGICAL EVALUATION: 09/12/21 (Dr. Cantu) In sum, Ms. Frost [...] LABORATORY RESULTS CBC: Recent Labs Component Name 11/21/22 1242 06/21/22 1321 04/12/22 1337 WBC 9.5 7.1 8.3 HGB 10.9* 10.1* 10.9* PLTCOUNT 411* 572* 451* BMP: Recent Labs Component Name 11/21/22 1242 06/21/22 1321 04/12/22 1337 06/29/21 1410 05/13/21 1509 NA 138 - - 141 140 CO2 21* 25 25 24 21* CREATININE 0.60 0.60 0.63 0.66 0.72 LFT: Recent Labs Component Name 11/21/22 1242 06/21/22 1321 04/12/22 1337 AST 12 24 11 ALT 11 25 14 VITAMIN D: Recent Labs Component Name 05/22/18 1040 03/09/17 1445 11/28/16 1333 [id number] 43.5 41 48 Recent Labs Component Name 06/21/22 1254 04/12/22 1337 01/07/21 0931 ZONISAMIDE 23.9 20.2 15 No results for input(s): TOPIRAMATE in the last 91558 hours. Recent Labs Component Name 11/21/22 1438 05/16/19 1159 LEVETIRACETM 20 17.5 No results for input(s): OXCARBAMETAB in the last 35843 hours. Recent Labs Component Name 06/21/22 1254 04/12/22 1337 01/07/21 0931 LACOSAMIDE 8.5 7.3 2.4* HPI: History of Epilepsy: Meredith Frost is a 42 year old female referred to [facility] Epilepsy clinic for seizures. PMH migraines, [...] mood changes, will transition patient to Briviact. Today's HPI: Meredith Frost is a 42 year old established with [facility] Epilepsy [facility], here for a follow-up visit. Last visit (12/2022), Levetiracetam was transitioned to Briviact due to mood concerns on levetiracetam. Patient believes this has improved mood. Recurrent aura in 01/2023, Briviact increased to 150mg BID. Patient denies any recurrent events. Risk factors: Complex febrile seizure Hx no Head trauma Hx no INSULATION CUTTER Infection Hx no Family Epilepsy Hx no Handedness right Memory poor Mood Ok History of kidney stones no Driving no Living situation Live alone Work No, on disability Allergies: No Known Allergies Current Outpatient Medications Medication Sig ??? acetaminophen (Tylenol) 500 MG tablet Take 1 (one) tablet by mouth every 6 hours as needed for Fever or Pain Maximum allowable Acetaminophen amount = 4 Grams (4000 mg) / 24 hours. ??? ARIPiprazole (Abilify) 15 MG tablet Take 1 (one) tablet by mouth at bedtime for 90 days ??? baclofen (Lioresal) 10 MG tablet TAKE 1 TABLET BY MOUTH TWICE DAILY FOR MUSCLE SPASMS. MAY CAUSE DROWSINESS ??? benzoyl peroxide (Benzac) 10 % wash Use as wash 1-2 times daily. ??? brivaracetam (Briviact) 75 MG tablet Take 2 (two) tablets by mouth 2 times daily ??? budesonide-formoterol (Symbicort) 160-4.5 MCG/ACT inhaler Inhale 2 (two) puffs by mouth 2 timesdaily for 30 days ??? docusate sodium (Colace) 100 MG capsule Take 1 (one) capsule by mouth every 12 hours ??? escitalopram (Lexapro) 10 MG tablet Take 1 (one) tablet by mouth once daily ??? escitalopram (Lexapro) 20 MG tablet Take 1 (one) tablet by mouth once daily Reasons: Premenstrual Disorder with a State of Unhappiness ??? fluticasone propionate (Flonase) 50 MCG/ACT nasal spray [place] 2 (two) sprays into each nostril once daily Make sure to shake bottle first ??? folic acid (Folvite) 1 MG tablet Take 1 (one) tablet by mouth once daily ??? hydrOXYzine HCl (Atarax) 50 MG tablet Take 1 (one) tablet by mouth 2 times daily as needed (anxiety) ??? lacosamide (Vimpat) 200 MG tablet Take 1 (one) tablet by mouth 2 times daily ??? onabotulinumtoxin A (BOTOX) 100 units injection Inject 155 (one hundred fifty five) Units into muscle Every 90 days Reasons: Migraine Headache ??? traZODone (Desyrel) 50 MG tablet TAKE 1 TABLET BY MOUTH EVERY NIGHT NEEDED FOR INSOMNIA ??? tretinoin (Retin-A) 0.05 % cream APPLY PEA SIZED AMOUNT TOPICALLY TO FACE AT NIGHT ??? Ventolin HFA 108 (90 Base) MCG/ACT inhaler Inhale 2 (two) puffs by mouth every 4 hours as needed for Shortness of Breath ??? zonisamide (Zonegran) 100 MG capsule Take 5 (five) capsules by mouth at bedtime for 30 days Reasons: Focal Epilepsy No current facility-administered medications for this visit. Past Medical History: Diagnosis Date ??? Asthma ??? Migraines ??? MS (multiple sclerosis) (CMS-HCC) ??? PID (pelvic inflammatory disease) ??? Seizures (CMS-HCC) Family History Problem Relation Name Age of [...] Hx ??? Psoriasis Neg Hx Social History Socioeconomic History ??? Marital status: Single Spouse name: N/A ??? Number of children: 0 ??? Years of education: 16 ??? Highest education level: Bachelor's degree (e.g., BA, AB, BS) Occupational History ??? Occupation: Disabled Tobacco Use ??? Smoking status: Never Passive exposure: Never ??? Smokeless tobacco: Never Vaping Use ??? Vaping Use: Never used Substance and Sexual Activity ??? Alcohol use: Not Currently Alcohol/week: 8.0 standard drinks of alcohol Types: 6 Cans of beer, 2 Shots of liquor per week Comment: socially 1 X q 6 months ??? Drug use: Yes Frequency: 7.0 times per week Types: Marijuana Comment: Daily ??? Sexual activity: Not Currently Partners: Male Other Topics Concern ??? Service No ??? Blood Transfusions No ??? Caffeine Concern No ??? Occupational Exposure No ??? Hobby Hazards No ??? Sleep Concern No ??? Stress Concern Yes ??? Weight Concern No ??? Special Diet No ??? Back Care No ??? Exercise No ??? Bike Helmet No ??? Seat Belt No ??? Self-Exams No Social History Narrative Has good social support from 2 friends. Social Determinants of Health Financial Resource Strain: Low Risk (11/21/2022) Overall Financial Resource Strain (CARDIA) ??? Difficulty of Paying Living Expenses: Not very hard Food Insecurity: No Food Insecurity (11/21/2022) Hunger Vital Sign ??? Worried About Running Out of Food in the Last Year: Never true ??? Ran Out of Food in the Last Year: Never true Transportation Needs: No Transportation Needs (11/21/2022) PRAPARE - Transportation ??? Lack of Transportation (Medical): No ??? Lack of Transportation (Non-Medical): No Stress: No Stress Concern Present (11/21/2022) [facility] Occupational Health - Occupational Stress Questionnaire ??? Feeling of Stress : Only a little Housing Stability: Low Risk (11/21/2022) Housing Stability Vital Sign ??? Unable to Pay for Housing in the Last Year: No ??? Number of Places Lived in the Last Year: 0 ??? Unstable Housing in the Last Year: No control no Folic acid no no Alcohol usage no Illicit substance no Marijuana usage yes Physical Exam: BP 116/78 Pulse 77 Temp 98 ??F (36.7 ??C) (Temporal) Wt 70.8 kg (156 lb) SpO2 98% Awake and alert responding appropriately to questions and commands, moves all extremities. Assessment/Plan: Meredith Frost is a 42 year old female with history of epilepsy, likely focal. Seizures previously controlled for 10+ years til breakthrough seizure on 04/15/19. Last known seizure was on 05/01/2022, last aura event in 01/2023. Denies any recurrent events since Briviact last increased. MS: - Followed by Dr. Thorpe - Ocrevus infusions, next infusion 06/22/2023 Migraines: -Followed by Dr. Haywood, receives Botox apt on 06/13/2023 Major Neurocognitive Disorder -Last evaluation done 08/2021, recommended every 12 months -Scheduled on 07/03/2023 for evaluation -Patient asking about driving, discussed due to her major neurocognitive disorder patient likely isunable to safely drive, can be evaluated at next apt Mood Disorder: -Followed by [facility] Seizures: -Instructed to report any seizure events/auras -Continue Zonisamide 500mg nightly -Continue lacosamide 200mg BID -Continue Briviact 150mg BID -Discussed importance of medication compliance, proper sleep, and staying hydrated -Obtain labs: CBC/CMP/Zonisamide Level/Lacosamide Level ([facility]) -Future consideration: EMU for further event characterization/surgical evaluation if seizures do not become controlled on ASMs. Follow-up in 5 months or sooner if problems arise Patient agrees and voices understanding of plan of care listed above. POST-VISIT MEDICATION (Current as of 04/12/2023) Name Pill Size Frequency Total/Day Level Zonisamide [...] should be used under supervision of a layer out. If oral contraception must be used, a higher dosage may be required under supervision of a layer out. She was instructed to inform the Neurology Clinic in the event of any planned or unplanned . I personally spent 30 minutes on 04/12/2023 preparing to see the patient (e.g. reviewing chart, review of tests), obtaining and/or reviewing the separately obtained history, performing a medically necessary and appropriate examination and evaluation, counseling and educating the patient/family/caregiver, ordering medications, tests, or procedures, documenting in the patient record, and communicating results to the patient/family/caregiver. Melissa Crook APRN-PHP WEB DEVELOPER 04/12/2023 [facility] UER DIPPING MACHINE OPERATOR documented in this encounter Plan of Treatment Upcoming Encounters Date Type Department Care Team (Late st Contact Info) Description 04/04/2024 8:30 AM LACQUER DIPPING MACHINE OPERATOR Office Visit [facility] - Dermatology [address] [place] [address], [place] [address] Marlys Zaragoza MD [address] [place] [address] [address] [place] [phone] 09/03/2024 9:00 AM CDT Office Visit [facility] - Neurology [address] [place] [phone] Melissa Crook APRN-CNP [address] [place] [phone] Scheduled Orders Name Type Priority Associated Diagnoses Orde r Schedule CBC WITH DIFFERENTIAL Lab Routine Seizures (HCC) 1 Occurrences starting 04/12/2023 until 05/06/2024 COMPREHENSIVE METABOLIC PANEL Lab Routine Seizures (HCC) 1 Occurrences starting 04/12/2023 until 05/06/2024 LACOSAMIDE Lab Routine Seizures (HCC) 1 Occurrences starting 04/12/2023 until 05/06/2024 ZONISAMIDE LEVEL Lab Routine Seizures (HCC) 1 Occurrences starting 04/12/2023 until 05/06/2024 documented as of this encounter Visit Diagnoses Diagnosis Seizures (HCC)- Primary Other convulsions documented in this encounter Care Teams Mortgage Servicing Specialist Relationship Specialty Start Date End Date Lauren Saba APRN-PHP WEB DEVELOPER [address] [place] [address] PCP - General 01/14/18 05/10/23 documented as of this encounter
--- OUTSIDE RECORDS SUMMARY | 2024-03-22 16:36 | XMS_ITS | Encounter Summary ---
Author Organization [facility] Health Address [address] [place] [address] Care Team Providers Care Food Science Professor Name Role Phone Lauren Saba Jose Eduardo KNOX-SORTER LUMBER STRAIGHTENER Primary Care Provider Reason for Visit * Reason Onset Date Comments Concerns 09/26/2022 Encounter Details Date Type Department Care Team ([facility] st Contact Info) Description 09/26/2022 Telephone [facility] - Neurology [address] [facility], [place] [address] Mckayla Haywood MD [address] [place] [address] [place] [address] Concerns Social History Tobacco Use Types Packs/Day Years [...] Date Recorded PHQ2 TOTAL SCORE 0 09/07/2022 [facility] [place] of Occupat ional Health - Occupational Stress [...] slept in a half-way (including now)? No 06/21/2022 Education Answer Date [...] Encounter - Dilma Gruber RN - 09/28/2022 8:40 AM CDT Spoke with patient and she states that she does not have Mychart access any longer and her migrainehas resolved after taking a shower and turning off the lights. Will let Dr. Haywood know. * Telephone Encounter - Dilma Gruber RN - 09/26/2022 3:28 PM CDT Patient called this RN and states that she has had the same headache for the last 3-4 days. Is taking the ibuprofen 800mg tablets that Dr. Haywood prescribed to her about twice daily and this is not helping. States she is already taking steroids daily for her MS. Would like to know what she can do to break her cycle. Let the patient know that Dr. Haywood is not in clinic today so if her headachesget worse then she needs to go to the ER. Patient v/u. Will forward to Dr. Haywood for his review and recommendations. documented in this encounter Plan of Treatment Upcoming Encounters Date Type Department Care Team (Late st Contact Info) Description 04/04/2024 8:30 AM ACURA SALES CONSULTANT Office Visit [facility] - Dermatology [facility] [facility] [place] [address] Marlys Zaragoza MD [facility] [facility] [address] [place] [phone] 09/03/2024 9:00 AM CDT Office Visit [facility] - Neurology [address] [place] [address], [place] [phone] Melissa Crook APRN-SORTER LUMBER STRAIGHTENER [address] [place] [phone] documented as of this encounter Visit Diagnoses Not on filedocumented in this encounter Care Teams Food Science Professor Relationship Specialty Start Date End Date Lauren Saba APRN-SORTER LUMBER STRAIGHTENER [address] [place] [address] PCP - General 01/14/18 05/10/23 documented as of this encounter
--- OUTSIDE RECORDS SUMMARY | 2024-03-22 16:36 | XMS_ITS | Encounter Summary ---
Author Organization [facility] Health Address [address] [place] [address] Care Team Providers Care Set Up Technician Name Role Phone Lauren Saba Jose Eduardo KNOX-INSURANCE BILLING SPECIALIST Primary Care Provider Encounter Details Date Type Department Care Team (Latest Contact Info) Description 10/06/2022 Travel Social History Tobacco Use Types Packs/Day [...] Date Recorded PHQ2 TOTAL SCORE 0 09/07/2022 [facility] of Occupat ional Health - Occupational Stress [...] place to sleep or slept in a skilled nursing (including now)? No 06/21/2022 Education Answer Date [...] st Contact Info) Description 04/04/2024 8:30 AM VENEER GRADER [facility] [address] [place] [address], [place] [address] Marlys Zaragoza MD [address] [place] [address] [address] [place] [phone] 09/03/2024 9:00 AM CDT Office Visit [facility] - Neurology [address] [place] [address], [place] [phone] Melissa Crook APRN-INSURANCE BILLING SPECIALIST [address] [place] [phone] documented as of this encounter Visit Diagnoses Not on filedocumented in this encounter Care Teams Set Up Technician Relationship Specialty Start Date End Date Lauren Saba APRN-INSURANCE BILLING SPECIALIST [address] [place] [phone] PCP - General 01/14/18 05/10/23 documented as of this encounter
--- OUTSIDE RECORDS SUMMARY | 2024-03-22 16:36 | XMS_ITS | Encounter Summary ---
Author Organization [facility] Health Address [address] [place] [address] Care Team Providers Care Cash Management Coordinator Name Role Phone Braxton Sabareilly Whitt APRN-PLASMA PROCESSING CENTRIFUGE OPERATOR Primary Care Provider Reason for Visit * Reason Comments Wound/Incision Check Pt presents to ED w ith c/o right great toe wound for a few weeks and now has concern for infection. Pt reports she had a callus that she drained herself and believes it's infected. Pt states she made an appointment with a foot doctor and they told her everything was fine, so she wanted to come to the ER for a second opinion. Encounter Details Date Type Department Care Team (Late st Contact Info) Description 05/02/2023 10:11 AM SAMPLE BOX MAKER - 05/02/2023 10:39 AM [facility] Emergency [facility] EM[facility] [address] [place] [address] Callus Discharge Disposition: Home or Self Care Social [...] Recorded Patient Health Questionnaire-2 Score 1 03/02/2023 [facility] - Occupational Stress Questionnaire Answer Date [...] Sign Reading Time Taken Comments Blood Pressure 124/77 05/02/2023 9:33 AM SAMPLE BOX MAKER Pulse 104 05/02/2023 9:33 AM SAMPLE BOX MAKER Temperature 36.4 ??C (97.5 ??F) 05/02/2023 9:33 AM CS T Respiratory Rate 16 05/02/2023 9:33 AM SAMPLE BOX MAKER Oxygen Saturation 100% 05/02/2023 9:33 AM SAMPLE BOX MAKER Inhaled Oxygen Concentration - - Weight 63.5 kg (140 lb) 05/02/2023 9:33 AM SAMPLE BOX MAKER Height 165.1 cm (5' 5 ) 05/02/2023 9:33 AM SAMPLE BOX MAKER Body Mass Index 23.3 05/02/2023 9:33 AM SAMPLE BOX MAKER documented in this encounter Functional Status Functional [...] No 11/21/2022 documented as of this encounter Discharge Instructions * Discharge Instructions* Manuel Valle PA-C - 05/02/2023 10:21 AM SAMPLE BOX MAKER Your toe does not appear to be infected. Follow up with podiatry. You may take tylenol and ibuprofen for discomfort. Keep the callus clean and dry and avoid picking at it as this will increase your risk of infection. LE BOX MAKER documented in this encounter Medications at Time of Discharge Medication Sig Dispensed Refills Start Date End Date acetaminophen (Tylenol) 500 MG tablet Take 1 (one) tablet by mouth every 6 hours as needed for Fever or Pain Maximum allowable Acetaminophen amount = 4 Grams (4000 mg) / 24 hours. 30 tablet 5 03/16/2023 12/14/2023 ARIPiprazole (Abilify) 15 MG tablet Take 1 (one) tablet by mouth at bedtime for 90 days 30 tablet 2 03/02/2023 05/29/2023 benzoyl peroxide (Benzac) 10 % washIndications:Acn e vulgaris Use as wash 1-2 times daily. 148 mL 11 03/23/2023 09/21/2023 brivaracetam (Briviact) 75 MG tabletIndications:S isak ([facility]) Take 2 (two) tablets by mouth 2 times daily 120 tablet 5 04/12/2023 09/11/2023 budesonide-formoter ol (Symbicort) 160-4.5 MCG/ACT inhaler Inhale 2 (two) puffs by mouth 2 times daily for 30 days 6 g 12/08/2022 12/14/2023 docusate sodium (Colace) 100 MG capsule Take 1 (one) capsule by mouth every 12 hours 02/16/2023 12/14/2023 escitalopram (Lexapro) 10 MG tablet Take 1 (one) tablet by mouth once daily 90 tablet 03/15/2023 05/30/2023 escitalopram (Lexapro) 20 MG tabletIndications:P remenstrual Dysphoric Disorder Take 1 (one) tablet by mouth once daily Reasons: Premenstrual Disorder with a State of Unhappiness 90 tablet 04/12/2023 06/01/2023 fluticasone propionate (Flonase) 50 MCG/ACT nasal spray Kila 2 (two) sprays into each nostril once daily Make sure to shake bottle first 03/16/2023 12/14/2023 folic acid (Folvite) 1 MG tablet Take 1 (one) tablet by mouth once daily 90 tablet 3 04/12/2023 09/11/2023 hydrOXYzine HCl (Atarax) 50 MG tablet Take 1 (one) tablet by mouth 2 times daily as needed (anxiety) 60 tablet 12/08/2022 05/31/2023 lacosamide (Vimpat) 200 MG tabletIndications:S isak ([facility]) Take 1 (one) tablet by mouth 2 times daily 60 tablet 5 04/12/2023 09/11/2023 onabotulinumtoxin A (BOTOX) 100 units injectionIndication s:Migraine Inject 155 (one hundred fifty five) Units into muscle Every 90 days Reasons: Migraine Headache 2 Each 1 03/16/2023 12/14/2023 traZODone (Desyrel) 50 MG tablet TAKE [...] g 12/08/2022 12/14/2023 zonisamide (Zonegran) 100 MG capsuleIndications: Focal Epilepsy Take 5 (five) capsules by mouth at bedtime Reasons: Focal Epilepsy 150 capsule 11 04/12/2023 09/11/2023 documented as of this encounter ED Notes * Juli Encinas RN - 05/02/2023 10:39 AM CST Pt is awake and alert GCS 15. Breathing is regular and nonlabored. Skin is warm and dry. Gait is steady with no assistance. Proper discharge clothing. Discharge teaching successful as evidence by no further questions/concerns/needs. Pt ready for discharge. All belongings taken by pt out of dept. LE BOX MAKER * Darline Darling RN - 05/02/2023 10:09 AM CST Pt presents to ED with c/o right great toe wound for a few weeks and now has concern for infection.Pt reports she had a callus that she drained herself and believes it's infected. Pt states she madean appointment with a foot doctor and they told her everything was fine, so she wanted to come to the ER for a second opinion. Past Medical History: Diagnosis Date ??? Asthma ??? Migraines ??? MS (multiple sclerosis) (CMS-HCC) ??? PID (pelvic inflammatory disease) ??? Seizures (CMS-HCC) Past Surgical History: Procedure Laterality Date ??? KNEE ARTHROPLASTY Right ??? MD CHEMODENERV MUSC MIGRAINE 07/18/2017 ??? MD CHEMODENERV MUSC MIGRAINE 10/17/2017 ??? MD CHEMODENERV MUSC MIGRAINE 01/14/2018 ??? MD CHEMODENERV MUSC MIGRAINE 04/15/2018 ??? MD CHEMODENERV MUSC MIGRAINE 07/22/2018 ??? MD CHEMODENERV MUSC MIGRAINE 10/21/2018 ??? MD CHEMODENERV MUSC MIGRAINE 10/13/2019 ??? MD CHEMODENERV MUSC MIGRAINE 01/12/2020 ??? MD CHEMODENERV MUSC MIGRAINE 04/19/2020 ??? MD CHEMODENERV MUSC MIGRAINE 07/21/2020 ??? MD CHEMODENERV MUSC MIGRAINE 11/01/2020 ??? MD CHEMODENERV MUSC MIGRAINE 02/14/2021 ??? MD CHEMODENERV MUSC MIGRAINE 07/13/2021 ??? MD CHEMODENERV MUSC MIGRAINE 10/21/2021 ??? MD CHEMODENERV MUSC MIGRAINE 01/18/2022 ??? MD CHEMODENERV MUSC MIGRAINE 05/05/2022 ??? MD CHEMODENERV MUSC MIGRAINE 09/08/2022 ??? MD CHEMODENERV MUSC MIGRAINE 03/16/2023 ??? Tonsillectomy Bilateral LE BOX MAKER * Manuel Valle PA-C - 05/02/2023 10:07 AM CST Meredithisreal Frost [id number] [facility] History Chief Complaint Patient presents with ??? Wound/Incision Check Pt presents to ED with c/o right great toe wound for a few weeks and now has concern for infection.Pt reports she had a callus that she drained herself and believes it's infected. Pt states she madean appointment with a foot doctor and they told her everything was fine, so she wanted to come to the ER for a second opinion. The pt is 42 yo female with PMHx of asthma, migraines, MS, and seizure disorder presenting with left great toe pain for 1-2 weeks. She states she has a callus and is concerned it is infected because there was a large blister. She states she drained it and expressed clear drainage. She denies difficulty moving the toe, numbness, fevers, chills, sweats, N/V. She denies taking any medications for her sx. Past Medical History: Diagnosis Date ??? Asthma ??? Migraines ??? MS (multiple sclerosis) (CMS-HCC) ??? PID (pelvic inflammatory disease) ??? Seizures (CMS-HCC) Past Surgical History: Procedure Laterality Date ??? KNEE ARTHROPLASTY Right ??? MD CHEMODENERV MUSC MIGRAINE 07/18/2017 ??? MD CHEMODENERV MUSC MIGRAINE 10/17/2017 ??? MD CHEMODENERV MUSC MIGRAINE 01/14/2018 ??? MD CHEMODENERV MUSC MIGRAINE 04/15/2018 ??? MD CHEMODENERV MUSC MIGRAINE 07/22/2018 ??? MD CHEMODENERV MUSC MIGRAINE 10/21/2018 ??? MD CHEMODENERV MUSC MIGRAINE 10/13/2019 ??? MD CHEMODENERV MUSC MIGRAINE 01/12/2020 ??? MD CHEMODENERV MUSC MIGRAINE 04/19/2020 ??? MD CHEMODENERV MUSC MIGRAINE 07/21/2020 ??? MD CHEMODENERV MUSC MIGRAINE 11/01/2020 ??? MD CHEMODENERV MUSC MIGRAINE 02/14/2021 ??? MD CHEMODENERV MUSC MIGRAINE 07/13/2021 ??? MD CHEMODENERV MUSC MIGRAINE 10/21/2021 ??? MD CHEMODENERV MUSC MIGRAINE 01/18/2022 ??? MD CHEMODENERV MUSC MIGRAINE 05/05/2022 ??? MD CHEMODENERV MUSC MIGRAINE 09/08/2022 ??? MD CHEMODENERV MUSC MIGRAINE 03/16/2023 ??? Tonsillectomy Bilateral [...] No Stress: No Stress Concern Present (11/21/2022) [place] [facility]ational [facility] - Occupational Stress Questionnaire ??? Feeling of Stress : Only a little Housing Stability: Low Risk (11/21/2022) Housing Stability Vital Sign ??? Unable to Pay for Housing in the Last Year: No ??? Number of Places Lived in the Last Year: 0 ??? Unstable Housing in the Last Year: No Review of Systems Review of Systems Constitutional: Negative for chills, diaphoresis, fever and malaise/fatigue. HENT: Negative. Eyes: Negative. Respiratory: Negative for cough and shortness of breath. Cardiovascular: Negative for chest pain, palpitations and leg swelling. Gastrointestinal: Negative for nausea and vomiting. Genitourinary: Negative. Musculoskeletal: (+) great toe pain Neurological: Negative for dizziness, tingling, sensory change and weakness. Psychiatric/Behavioral: Negative. Physical Exam BP 124/77 Pulse 104 Temp 97.5 ??F (36.4 ??C) (Temporal) Resp 16 Ht 1.651 m (5' 5 ) Wt 63.5 kg (140 lb) LMP 10/31/2022 (Exact Date) SpO2 100% BMI 23.30 kg/m?? Physical Exam Constitutional: Appearance: Normal appearance. HENT: Head: Normocephalic and atraumatic. Cardiovascular: Rate and Rhythm: Normal rate and regular rhythm. Heart sounds: No murmur heard. Pulmonary: Effort: Pulmonary effort is normal. Breath sounds: Normal breath sounds. Musculoskeletal: Cervical back: Normal range of motion and neck supple. Skin: General: Skin is warm and dry. Capillary Refill: Capillary refill takes less than 2 seconds. Comments: L great toe with callus along lateral aspect of nailbed. No warmth, erythema, drainage, or fluctuance. Full AROM of IP joint. Cap refill < 2 seconds. DP 2+. Neurological: Mental Status: She is alert and oriented to person, place, and time. Sensory: No sensory deficit. Psychiatric: Mood and Affect: Mood normal. Behavior: Behavior normal. Medications Current Outpatient Medications Medication Sig Dispense Refill [...] fluticasone propionate (Flonase) 50 MCG/ACT nasal spray Kila 2 (two) sprays into each nostril once [...] bedtime Reasons: Focal Epilepsy 150 capsule 11 Procedures Procedures: None Lab Interpretation Oxygen Saturation Interpretation The oxygen saturation level is: 100%. The patient was on Room Air for the saturation measurement. Oxygen saturation interpretation is Normal. No results found for this visit on 05/02/23. No orders to display Progress Notes DDx: Callus vs. Cellulitis vs. Abrasion vs. Abscess vs. Other 1007: Initial encounter with the patient. Physical exam reveals no signs of infection. I recommended keeping the area clean and dry. She was advised to refrain from picking at the area or lancing anything herself in the future as this increases her risk infection. I recommended f/u with Podiatry. She is agreeable this plan at present. Patient is medically stable for discharge at this time. I have given the patient instructions regarding their diagnosis, expectations, follow up, and return precautions. I explained to the patient that emergent conditions may arise and to return to the ERfor new, worsening, or any persistent conditions. I've explained the importance of following up with PCP as instructed. The patient verbalized understanding of the discharge instructions. Dispo: Discharge ED Course Clinical Impressions as of 05/02/23 1120 Callus Medical Decision Making Callus: chronic illness or injury No orders of the defined types were placed in this encounter. Follow-up Information [facility]. Schedule an appointment as soon as possible for a visit in 1 week. Specialty: Podiatry Contact information: [address] [facility] [address] [facility] [address] Podiatry, [facility]. Schedule an appointment as soon as possible for a visit in 1 week. Specialty: Podiatry Contact information: [address] [facility] 1st [address] [facility] [phone] [facility] EM[facility]. Specialty: Emergency Room Why: If symptoms worsen Contact information: [address] [facility] [phone] LE BOX MAKER Associated attestation - Junior Richter MD - 05/02/2023 6:01 PM SAMPLE BOX MAKER Chart reviewed. The patient was seen exclusively by the SUPERVISOR PORCELAIN DEPARTMENT/PA, and was not seen by me. Case was discussed in detail with me by the SUPERVISOR PORCELAIN DEPARTMENT/PA and I reviewed the documentation, procedures (if done), treatment plan, and medical decision making. I was immediately available in the Emergency Department for consultation as needed. Juniro Richter MD Emergency Medicine documented in this encounter Miscellaneous Notes * Clinical References ALLYN - Manuel Valle PA-C - 05/02/2023 10:21 AM CST Images from the original note were not included. [id number] What Are Corns and Calluses? Corns and calluses are your body?s response to friction or pressure against the skin. If your foot rubs the inside of your shoe, the affected area of skin gets thick. Or if a bone is not in the normal position, skin caught between bone and shoe or bone and ground builds up. In either case, the outer layer of skin gets thick to protect the foot from unusual pressure. In many cases, corns and callus es look bad but are not harmful. But more severe corns and calluses may hurt, become infected, destroy healthy tissue, or affect foot movement. Corns Corns are formed when the skin gets thick with a center core. They can be a painful soft or hard bump. Corns usually grow on top of the foot, often at the toe joint. They often form on top of buckledtoe joints (hammer toes). If your toes curl under, corns may grow on the tips of the toes. You may also get a corn on the end of a toe if it rubs against your shoe. Corns can also grow between toes, often between the first and second toes. Calluses Calluses are a flat, widespread area of the outer layer of skin that gets thick. Calluses can occuron feet and hands. Calluses on the hands may develop from playing a musical instrument or working with your hands. This might be in carpentry or with mechanical equipment. Calluses grow on the bottomof the foot or on the outer edge of a toe or heel. A callus may spread across the ball of your foot. This type of callus is usually from a problem with the long bone at the base of a toe, near the ball of the foot (metatarsal). A pinch callus may grow along the outer edge of the heel or the big toe. Some calluses press up into the foot instead of spreading on the outside. A callus may form a central core or plug of tissue where pressure is greatest. Last Reviewed Date: 2022 ?? [id number] [employer]. All rights reserved. This information is not intended as a substitute for professional medical care. Always follow your healthcare professional's instructions. LE BOX MAKER * Clinical References AVS - Manuel Valle PA-C - 05/02/2023 10:21 AM CST Images from the original note were not included. [id number] Treating Corns and Calluses If your corns or calluses are mild, reducing friction may help. Different shoes, moleskin patches, or soft pads may be all the treatment you need. In more severe cases, treating tissue buildup may require your healthcare provider?s care. Sometimes custom-made shoe inserts (orthotics) or special pads are prescribed to reduce friction and pressure. Change shoes If you have corns, your healthcare provider may suggest wearing shoes that have more toe room. Thisway, buckled joints are less likely to be pinched against the top of the shoe. If you have calluses, wearing a cushioned insole, arch support, or heel counter can help reduce friction. Visit your doctor In some cases, your provider may trim away the outer layers of skin that make up the corn or callus. For a painful corn, medicine may be injected beneath the built-up tissue. Wear orthotics Orthotics are specially made to meet the needs of your feet. They cushion calluses or divert pressure away from these problem areas. Worn as directed, orthotics help limit existing problems and prevent new ones from forming. If you need surgery If a bone or joint is out of place, certain parts of your foot may be under too much pressure. Thiscan cause severe corns and calluses. In such cases, surgery may be the best way to correct the problem. Outpatient procedures In most cases, surgery to improve bone position is an outpatient procedure. Your healthcare provider may cut away excess bone, reposition prominent bones, or even fuse joints. Sometimes tendons or ligaments are cut to reduce tension on a bone or joint. Your provider will talk with you about the procedure that's best suited to your needs. Last Reviewed Date: 2021 ?? [id number] [employer]. All rights reserved. This information is not intended as a substitute for professional medical care. Always follow your healthcare professional's instructions. LE BOX MAKER documented in this encounter Plan of Treatment Upcoming Encounters Date Type Department Care Team (Late st Contact Info) Description 04/04/2024 8:30 AM SAMPLE BOX MAKER [facility] [address] [place] [phone] Marlys Zaragoza MD [address] [place] [address] [address] [place] [phone] 09/03/2024 9:00 AM CDT Office Visit [facility] - Neurology [address] [place] [phone] Melissa Crook APRN-CNP [address] [place] [phone] documented as of this encounter Visit Diagnoses Diagnosis Callus Corns and callosities documented in this encounter Care Teams Cash Management Coordinator Relationship Specialty Start Date End Date Lauren Saba APRN-PLASMA PROCESSING CENTRIFUGE OPERATOR [address] [place] [phone] PCP - General 01/14/18 05/10/23 documented as of this encounter
--- OUTSIDE RECORDS SUMMARY | 2024-03-22 16:36 | XMS_ITS | Encounter Summary ---
Author Organization [facility] Health Address [address] [place] [address] Care Team Providers Care Crematory Attendant Name Role Phone Lauren Saba Jose Eduardo KNOX-LEGAL EXECUTIVE ASSISTANT Primary Care Provider Encounter Details Date Type Department Care Team (Latest Contact Info) Description 12/25/2022 Travel Social History Tobacco Use Types Packs/Day [...] Date Recorded PHQ2 TOTAL SCORE 0 09/07/2022 [facility] [place] of Occupat ional Health - Occupational Stress [...] st Contact Info) Description 04/04/2024 8:30 AM BOX MAKER [facility] Derm[facility] [address] [place] [address], [place] [phone] Marlys Zaragoza MD [address] [place] [address] [address] [place] [phone] 09/03/2024 9:00 AM CDT Office Visit [facility] - Neurology [address] [place] [address], [place] [phone] Melissa Crook APRN-CNP [address] [place] [phone] documented as of this encounter Visit Diagnoses Not on filedocumented in this encounter Care Teams Crematory Attendant Relationship Specialty Start Date End Date Lauren Saba APRN-LEGAL EXECUTIVE ASSISTANT [address] [place] [phone] PCP - General 01/14/18 05/10/23 documented as of this encounter
--- OUTSIDE RECORDS SUMMARY | 2024-03-22 16:36 | XMS_ITS | Encounter Summary ---
Author Organization [facility] Health Address [address] [place] [address] Care Team Providers Care Combatant Diver Qualified Name Role Phone Lauren Saba Jose Eduardo KNOX-ANIMAL HUSBANDRY PROFESSOR Primary Care Provider Encounter Details Date Type Department Care Team (Latest Contact Info) Description 01/09/2023 Travel Social History Tobacco Use Types Packs/Day [...] Recorded Patient Health Questionnaire-2 Score 0 01/05/2023 [facility] [employer] [place] of Occupat ional Health - Occupational Stress [...] No 11/21/2022 Housing Stability Vital Sign Answer Banadr e Recorded In the last 12 months, [...] st Contact Info) Description 04/04/2024 8:30 AM LIDAR ANALYST Office Visit [facility] - Dermatology [address] [place] [address], [place] [phone] Marlys Zaragoza MD [address] [place] [address] [address] [place] [phone] 09/03/2024 9:00 AM CDT Office Visit [facility] - Neurology [address] [place] [address], [place] [phone] Melissa Crook APRN-CNP [address] [place] [phone] documented as of this encounter Visit Diagnoses Not on filedocumented in this encounter Care Teams Combatant Diver Qualified Relationship Specialty Start Date End Date Lauren Saba APRN-ANIMAL HUSBANDRY PROFESSOR [address] [place] [phone] PCP - General 01/14/18 05/10/23 documented as of this encounter
--- OUTSIDE RECORDS SUMMARY | 2024-03-22 16:36 | XMS_ITS | Encounter Summary ---
Author Organization [facility] Health Address [address] [place] [address] Care Team Providers Care Family Intervention Specialist Name Role Phone Lauren Saba Jose Eduardo KNOX-LEAD MECHANIC Primary Care Provider Reason for Visit * Reason Onset Date Comments Medication Clarification 02/01/2023 Encounter Details Date Type Department Care Team ([facility] st Contact Info) Description 02/01/2023 Telephone [facility] - Neurology [address] [facility], [place] [phone] Karen Reyes MD [address] [place] [phone] Medication Clarification Social History Tobacco Use Types Packs/Day Years [...] Questionnaire-2 Score 0 01/05/2023 [facility] [place] of Occupat ional Health - Occupational Stress [...] in a senior care (including now)? No 11/21/2022 Education Answer Date [...] Telephone Encounter - Dilma Gruber RN - 02/01/2023 9:00 AM CST Patient called and wants to let Dr. Thorpe know that her last Ocrevus infusion was on 01/21/2023. ING SCALER documented in this encounter Plan of Treatment Upcoming Encounters Date Type Department Care Team (Late st Contact Info) Description 04/04/2024 8:30 AM LANDING SCALER Office Visit [facility] - Dermatology [address] [place] [address], [place] [phone] Marlys Zaragoza MD [address] [place] [address] [address] [place] [phone] 09/03/2024 9:00 AM CDT Office Visit [facility] - Neurology [address] [place] [address], [place] [phone] Melissa Crook APRN-LEAD MECHANIC [address] [place] [phone] documented as of this encounter Visit Diagnoses Not on filedocumented in this encounter Care Teams Family Intervention Specialist Relationship Specialty Start Date End Date Lauren Saba APRN-LEAD MECHANIC [address] [place] [phone] PCP - General 01/14/18 05/10/23 documented as of this encounter
--- OUTSIDE RECORDS SUMMARY | 2024-03-22 16:36 | XMS_ITS | Encounter Summary ---
Author Organization [facility] Health Address [address] [facility] [place] [address] Care Team Providers Care Artificial Marble Worker Name Role Phone Lauren Saba Jose Eduardo KNOX-VETERANS REHABILITATION COUNSELOR Primary Care Provider Reason for Visit * Reason Comments Refill Request Encounter Details Date Type Department Care Team (Late st Contact Info) Description 07/14/2022 Refill [facility] [address] [facility], [facility], [facility] [place] [address] Markus Cabral MD [address] [place] [address] Refill Request Social History Tobacco Use Types [...] Date Recorded PHQ2 TOTAL SCORE 0 03/02/2022 [facility] [place] of Occupat ional Health - Occupational Stress [...] in a long term (including now)? No 06/21/2022 Education Answer Date [...] encounter Miscellaneous Notes * Telephone Encounter - Autumn Ramey MA - 07/14/2022 3:14 PM CDT Refill Request CRISTELA: 06/14/2022 NOV scheduled: 07/17/2022 LRF: 06/29/2021 Qty Disp: 450 # of refills: 3 documented in this encounter Plan of Treatment Upcoming Encounters Date Type Department Care Team (Late st Contact Info) Description 04/04/2024 8:30 AM DATA COLLECTION INTERVIEWER Office Visit [facility] - Dermatology [address] [place] [address], [place] [address] Marlys Zaragoza MD [address] [place] [address] [place] [phone] 09/03/2024 9:00 AM CDT Office Visit [facility] - Neurology [address] [place] [phone] Melissa Crook APRN-VETERANS REHABILITATION COUNSELOR [address] [place] [phone] documented as of this encounter Visit Diagnoses Diagnosis Seizures (HCC) Other convulsions documented in this encounter Care Teams Artificial Marble Worker Relationship Specialty Start Date End Date Lauren Saba APRN-VETERANS REHABILITATION COUNSELOR 9 [place] [phone] PCP - General 01/14/18 05/10/23 documented as of this encounter
--- OUTSIDE RECORDS SUMMARY | 2024-03-22 16:36 | XMS_ITS | Encounter Summary ---
Author Organization [facility] Health Address [address] [place] [address] Care Team Providers Care Case Management Associate Name Role Phone Lauren Saba Jose Eduardo KNOX-BASKET SORTER Primary Care Provider Encounter Details Date Type Department Care Team (Latest Contact Info) Description 04/26/2023 Travel Social History Tobacco Use Types Packs/Day [...] Recorded Patient Health Questionnaire-2 Score 1 03/02/2023 [facility] [place] of Occupat ional Health - Occupational Stress [...] st Contact Info) Description 04/04/2024 8:30 AM AUDIT OFFICER Office Visit [facility] Dermatology [address] [place] [address], [place] [phone] Marlys Zaragoza MD [address] [place] [address] [address] [place] [phone] 09/03/2024 9:00 AM CDT Office Visit [facility] - Neurology [address] [place] [address], [place] [phone] Melissa Crook APRN-CNP [address] [place] [phone] documented as of this encounter Visit Diagnoses Not on filedocumented in this encounter Care Teams Case Management Associate Relationship Specialty Start Date End Date Lauren Saba APRN-BASKET SORTER 9 [place] [phone] PCP - General 01/14/18 05/10/23 documented as of this encounter
--- OUTSIDE RECORDS SUMMARY | 2024-03-22 16:36 | XMS_ITS | Encounter Summary ---
Author Organization [facility] Health Address [address] [place] [address] Care Team Providers Care Control System Manager Name Role Phone Lauren Saba Jose Eduardo KNOX-PRESIDENT & CEO Primary Care Provider Reason for Visit * Reason Comments Botox 200U Bot/3 month [facility] * Procedure (Routine) - Closed Specialty Diagnoses / Procedures Referred By Nicole t Referred To Contact Neurology Diagnoses Chronic migraine without aura, intractable, without status migrainosus Procedures MI BOTULINUM TOXIN TYPE A PER UNIT MI CHEMODENERV MUSC MIGRAINE Mckayla Haywood MD [facility] 1L [place] [address] Mckayla Haywood MD [address] [place] [address] [address] [place] [address] Referral ID Status Reason Start Date Expiration Date Visits Re quested Visits Authorized [id number] Closed 03/16/2023 09/15/2023 2 2 Encounter Details Date Type Department Care Team (Latest Contact Info) Description 03/16/2023 2:00 PM PHOTOVOLTAIC INSTALLER Procedure visit [facility] - Neurology [address] [place] [address], [place] [address] Mckayla Haywood MD [address] [place] [address] [address] [place] [address] Intractable chronic 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 without [...] Recorded Patient Health Questionnaire-2 Score 1 03/02/2023 [facility] of Occupat ional Health - [...] Sign Reading Time Taken Comments Blood Pressure 117/78 03/16/2023 1:35 PM PHOTOVOLTAIC INSTALLER Pulse 96 03/16/2023 1:35 PM PHOTOVOLTAIC INSTALLER Temperature 37.7 ??C (99.8 ??F) 03/16/2023 1:35 PM CS T Respiratory Rate - - Oxygen Saturation 99% 03/16/2023 1:35 PM PHOTOVOLTAIC INSTALLER Inhaled Oxygen Concentration - - Weight 68 kg (150 lb) 03/16/2023 1:35 PM PHOTOVOLTAIC INSTALLER Height 165.1 cm (5' 5 ) 03/16/2023 1:35 PM PHOTOVOLTAIC INSTALLER Body Mass Index 24.96 03/16/2023 1:35 PM PHOTOVOLTAIC INSTALLER documented in this encounter Functional Status Functional [...] Progress Notes * Mckayla Haywood MD - 03/16/2023 2:00 PM CST The patient has a long history of chronic migraine, which has been unresponsive to multiple medications. The patient has nausea and light sensitivity with headaches. Here for botox for chronic migraine. The patient has had significant benefit from Botox with a greater than 50% reduction in headache frequency and severity. Follows in MS clinic and epilepsy clinic. ? Current Outpatient Medications Medication Sig Dispense Refill ??? ARIPiprazole (Abilify) 15 MG tablet Take 1 (one) tablet by mouth at bedtime for 90 days 30 tablet 2 ??? baclofen (Lioresal) 10 MG tablet TAKE 1 TABLET BY MOUTH TWICE DAILY FOR MUSCLE SPASMS. MAY CAUSE DROWSINESS ??? brivaracetam (Briviact) 75 MG tablet Take 2 (two) tablets by mouth 2 times daily 120 tablet 5 ??? budesonide-formoterol (Symbicort) 160-4.5 MCG/ACT inhaler Inhale 2 (two) puffs by mouth 2 timesdaily for 30 days 6 g 0 ??? escitalopram (Lexapro) 10 MG tablet Take 1 (one) tablet by mouth once daily 90 tablet 0 ??? escitalopram (Lexapro) 20 MG tablet Take 1 (one) tablet by mouth once daily Reasons: Premenstrual Disorder with a State of Unhappiness 90 tablet 0 ??? hydrOXYzine HCl (Atarax) 50 MG tablet Take 1 (one) tablet by mouth 2 times daily as needed (anxiety) 60 tablet 0 ??? lacosamide (Vimpat) 200 MG tablet Take 1 (one) tablet by mouth 2 times daily for 30 days 60 tablet 0 ??? traZODone (Desyrel) 50 MG tablet TAKE 1 TABLET BY MOUTH EVERY NIGHT NEEDED FOR INSOMNIA 30 tablet 0 ??? tretinoin (Retin-A) 0.05 [...] 30 days Reasons: Focal Epilepsy 150 capsule 0 No current facility-administered medications for this visit. BP 117/78 Pulse 96 Temp 99.8 ??F (37.7 ??C) Ht 1.651 m (5' 5 ) Wt 68 kg (150 lb) SpO2 99% Diagnosis: Chronic migraine without aura, intractable, Without status migrainosus Awake and alert Administer Botox for chronic migraine today. See procedure note for details. Renewed Tylenol 500 mg. Side effects reviewed. OVOLTAIC INSTALLER documented in this encounter Procedure Notes * Mckayla Haywood MD - 03/16/2023 1:46 PM CSTAssociated Order(s): PROC INJECTION - BOTOX Procedure(s): MI CHEMODENERV MUSC MIGRAINE Pre-Procedure Diagnose(s): Intractable chronic 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 without status migrainosus Post-Procedure Diagnose(s): Intractable chronic 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 without status migrainosus Botox Procedure Note ?? Patient's identity confirmed by having patient say first and last name. ?? Diagnosis: Chronic migraine ?? Procedure code: 54955 ?? History: ?? Baseline number of headaches per month:30 Current headaches per month:3 ?? Current migraine prophylactic medications: none Current migraine abortive treatments:Tylenol. ? Date of last injection: 09/08/2022 (off 3 month schedule) ?? Duration of [...] ?? Ordered 200 units for next visit. OVOLTAIC INSTALLER documented in this encounter Plan of Treatment Upcoming Encounters Date Type Department Care Team (Late st Contact Info) Description 04/04/2024 8:30 AM PHOTOVOLTAIC INSTALLER Office Visit [facility] - Dermatology [address] [place] [address], [place] [phone] Marlys Zaragoza MD [address] [place] [address] [place] [phone] 09/03/2024 9:00 AM CDT Office Visit [facility] - Neurology [address] [place] [phone] Melissa Crook, SENIOR PARTNER-PRESIDENT & CEO [address] [place] [phone] documented as of this encounter Procedures Procedure Name Priority Date/Time Associated Diagnosis Comments MI CHEMODENERV MUSC MIGRAINE Routine 03/16/2023 1:46 PM PHOTOVOLTAIC INSTALLER Intractable chronic 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 without status migrainosus documented in this encounter Results * MI CHEMODENERV MUSC MIGRAINE (03/16/2023 1:46 PM PHOTOVOLTAIC INSTALLER) Narrative Mckayla Haywood MD - 03/16/2023 1:46 PM Mckayla Gordillo MD ? 03/16/2023 ??2:02 PM Botox Procedure Note ?? Patient's identity confirmed by having patient say first and last name. ?? Diagnosis: Chronic migraine ?? Procedure code: 78195 ?? History: ?? Baseline number of headaches [...] 155 Units, Intramuscular, ONCE, 1 dose, On Sun03/16/23 at 1415 $ Given 03/16/2023 2:02 PM PHOTOVOLTAIC INSTALLER 155 Units Head documented in this encounter Care Teams Control System Manager Relationship Specialty Start Date End Date Lauren Saba APRN-PRESIDENT & CEO 9 [place] [phone] PCP - General 01/14/18 05/10/23 documented as of this encounter
--- OUTSIDE RECORDS SUMMARY | 2024-03-22 16:36 | XMS_ITS | Encounter Summary ---
Author Organization [facility] Health Address [address] [facility] [place] [address] Care Team Providers Care Rod Welder Name Role Phone Wandy Laurenreilly Whitt APRN-TOLL BRIDGE OPERATOR Primary Care Provider Encounter Details Date Type Department Care Team (Latest Contact Info) Description 08/03/2022 Travel Social History Tobacco Use Types Packs/Day [...] Date Recorded PHQ2 TOTAL SCORE 0 03/02/2022 [facility] [place] of Occupat ional Health - Occupational Stress [...] st Contact Info) Description 04/04/2024 8:30 AM SCHOLASTIC APTITUDE TEST GRADER Office [facility] Derm[facility] [address] [place] [address], [place] [address] Marlys Zaragoza MD [address] [place] [address] 3 [place] [phone] 09/03/2024 9:00 AM CDT Office Visit [facility] - Neurology [address] [place] [address], [place] [phone] Melissa Crook APRN-TOLL BRIDGE OPERATOR [address] [place] [phone] documented as of this encounter Visit Diagnoses Not on filedocumented in this encounter Care Teams Rod Welder Relationship Specialty Start Date End Date Lauren Saba APRN-TOLL BRIDGE OPERATOR 9 [place] [phone] PCP - General 01/14/18 05/10/23 documented as of this encounter
--- OUTSIDE RECORDS SUMMARY | 2024-03-22 16:36 | XMS_ITS | Encounter Summary ---
Author Organization [facility] Health Address [address] [facility] [place] [address] Care Team Providers Care Microsoft Dynamics Ax Developer Name Role Phone [place] [facility] Primary Care Provider Reason for Visit * Reason Comments Seizure Encounter Details Date Type Department Care Team (Late st Contact Info) Description 09/14/2022 11:00 AM CDT Office Visit [facility] - Neurology [address] [place] [address] Melissa Crook APRN-CNP [address] [place] [phone] Seizures (HCC) (Primary Dx) Social History Tobacco [...] Date Recorded PHQ2 TOTAL SCORE 0 09/07/2022 [place] of Occupat ional Health - Occupational Stress [...] Sign Reading Time Taken Comments Blood Pressure 121/81 09/14/2022 11:11 AM CDT Pulse 88 09/14/2022 11:11 AM CDT Temperature 36.4 ??C (97.6 ??F) 09/14/2022 11:11 AM C DT Respiratory Rate - - Oxygen Saturation 98% 09/14/2022 11:11 AM CDT Inhaled Oxygen Concentration - - Weight 66.8 kg (147 lb 3.2 oz) 09/14/2022 11:11 AM CDT Height - - Body Mass Index 24.5 09/08/2022 12:32 PM CDT documented in this [...] * Patient Instructions* Melissa Crook APRN-CNP - 09/14/2022 11:33 AM CDT -Follow-up in 4-5 months -Increase levetiracetam (keppra) to 1,000mg, 1 pill twice daily (2,000mg/day) -Continue lacosamide (vimpat) 200mg, 1 pill twice daily (400mg/day) -Continue zonisamide 100mg, 5 pills nightly (500mg/day) -Report any aura events or seizure events via mychart or calling clinic ADI Robison documented in this encounter Progress Notes * Melissa Crook APRN-CNP - 09/14/2022 11:04 AM CDT Epilepsy Clinic Note PCP ADI Botello DATE OF ENCOUNTER: 09/14/2022 CHIEF COMPLAINT: Seizures AGE OF ONSET 24 years old SEMIOLOGY ?? - Aura lightheaded, flushed Duration: <10 minutes - Ictus #1.) Generalized tonic clonic, LOC, foaming at mouth Duration: 1-2 minutes Frequency: every few months? (previously controlled for 10+ years til 04/15/19) - Post-ictus Sleepy, fatigue, confusion ?? SEIZURE CONTROL Aura: 09/12/2022 Date of last seizure 05/01/2022 PRE-VISIT MEDICATION Name Pill Size Frequency Total/Day Level Zonisamide 100 0-5 500mg/day 23.9 (06/2022) lacosamide 200mg 1-1 400mg/day 8.5 (06/2022) levetiracetam 500mg 1-1 1,000mg/day 16.9 (06/2022) Folic acid 1mg 1-0 COMPLIANCE Good AGGRAVATING FACTORS: infections (UTIs), stress TREATMENT HISTORY Name Allergy/Side Effects/Ineffectiveness Topamax Memory problems EE02/03/2021: [facility] (Dr. Terrell) Interpretation: This is an abnormal EEG due to 1) left frontotemporal epileptiform discharges, 2) left hemispheric slowing maximal around the left temporal region, and 3) mild to moderate generalized slowing. 01/03/2021: [facility] (Dr. Angel) Impression: ??Abnormal EEG. ??Left frontal spike and wave and focal slowing, still present, but much less frequent with more return to normal background than seen on previous EEG. ??No seizure like activity was observed. Correlation with clinical findings is Needed. 12/31/2020: [facility] (Dr. Angel) Impression: ??Abnormal EEG. ??Left frontotemporal discharges with focal slowing, suggests likely epileptogenicity from this region. ??No clinical seizures were seen. ??Correlation with clinical findings is needed. 04/15/2019: [facility] IMPRESSION: ??Normal awake and drowsy record IMAGIN05/13/2022: MRI Brain WWO Contrast: [facility] IMPRESSION: 1.Multiple intracranial white matter lesions compatible [...] LABORATORY RESULTS CBC: Recent Labs Component Name 06/21/22 1321 04/12/22 1337 06/29/21 1410 WBC 7.1 8.3 17.8* HGB 10.1* 10.9* 11.7* PLTCOUNT 572* 451* 469* BMP: Recent Labs Component Name 06/21/22 1321 04/12/22 1337 06/29/21 1410 05/13/21 1509 04/08/21 1552 NA - - 141 140 143 CO2 25 25 24 21* 23 CREATININE 0.60 0.63 0.66 0.72 0.67 LFT: Recent Labs Component Name 06/21/22 1321 04/12/22 1337 06/29/21 1410 AST 24 11 11 ALT 25 14 11 VITAMIN D: Recent Labs Component Name 05/22/18 1040 03/09/17 1445 11/28/16 1333 HWCG40JM 43.5 41 48 Recent Labs Component Name 06/21/22 1254 04/12/22 1337 01/07/21 0931 ZONISAMIDE 23.9 20.2 15 No results for input(s): TOPIRAMATE in the last 18748 hours. Recent Labs Component Name 05/16/19 1159 LEVETIRACETM 17.5 No results for input(s): OXCARBAMETAB in the last 95870 hours. Recent Labs Component Name 06/21/22 1254 04/12/22 1337 01/07/21 0931 LACOSAMIDE 8.5 7.3 2.4* HPI: History of Epilepsy: Meredith Frost is a 41 year old female referred to [facility] Epilepsy clinic for seizures. PMH migraines, [...] do not become controlled with medication management. Today's HPI: Meredith Frost is a 41 year old established with [facility] Ep[facility]psy Clinic, here for a follow-up visit. Patient recently had a aura event around 09/12/2022, she felt lightheaded and flushed for < 10 minutes. Denies any missed doses of medication. Risk factors: Complex febrile seizure Hx no Head trauma Hx no GASOLINE PUMP INSTALLER Infection Hx no Family Epilepsy Hx no Handedness right Memory poor Mood Ok History of kidney stones no Driving no Living situation Live alone Work No, on disability Allergies: No Known Allergies Current Outpatient Medications Medication Sig ??? Abilify Maintena 300 MG injection Inject 300 (three hundred) mg into muscle every 28 days ; last received on 05/18/2021. Next due 06/15/2021. Reasons: Unspecified Psychosis. Behavioral Disturbances in Dementia (Patient not taking: Reported on 01/12/2022) ??? baclofen (LIORESAL) 10 MG tablet Take 1 (one) tablet by mouth 2 times daily May cause drowsiness. Reasons: Muscle Spasticity ??? docusate sodium (COLACE) 100 MG capsule Take 1 (one) capsule by mouth every 12 hours ??? escitalopram (Lexapro) 10 MG tablet Take 1 (one) tablet by mouth once daily Reasons: Major Depressive Disorder ??? escitalopram (Lexapro) 20 MG tablet Take 1 (one) tablet by mouth once daily ??? fluticasone propionate (FLONASE) 50 MCG/ACT nasal spray [place] 2 (two) sprays into each nostril once daily ??? folic acid (Folvite) 1 MG tablet Take 1 (one) tablet by mouth once daily ??? ibuprofen (Motrin) 800 MG tablet Take 1 (one) tablet by mouth every 6 hours as needed for Pain ??? lacosamide (Vimpat) 200 MG tablet TAKE 1 TABLET BY MOUTH TWICE DAILY ??? levETIRAcetam (Keppra) 500 MG tablet TAKE 1 TABLET BY MOUTH TWICE DAILY ??? mirabegron ER 24hr (MYRBETRIQ) 50 MG tablet Take 1 (one) tablet by mouth once daily ??? multivitamin daily tablet Take 1 (one) tablet by mouth once daily ??? onabotulinumtoxin A (BOTOX) 100 units injection Inject 200 (two hundred) Units into muscle Every 90 days Reasons: Migraine Headache ??? SYMBICORT 160-4.5 MCG/ACT inhaler Inhale 2 (two) puffs by mouth 2 times daily ??? thiamine (VITAMIN B-1) 100 MG tablet Take 1 (one) tablet by mouth once daily ??? tretinoin (Retin-A Micro) 0.04 % gel Pea sized amount to entire face at night. 30 days supply. ??? tretinoin (Retin-A) 0.05 % cream Pea sized amount to entire face at night. 30 days supply. ??? Ventolin HFA 108 (90 Base) MCG/ACT inhaler Inhale 2 (two) puffs by mouth every 4 hours as needed ??? zonisamide (Zonegran) 100 MG capsule TAKE 5 CAPSULES BY MOUTH AT BEDTIME Current Facility-Administered Medications Medication ??? ARIPiprazole ER (Lata Maintena) prefilled syringe 300 mg Past Medical History: Diagnosis Date ??? Asthma ??? Migraines ??? MS (multiple sclerosis) (CMS/HCC) ??? PID (pelvic inflammatory disease) ??? Seizures (CMS/HCC) Family History Problem Relation Name Age of [...] of Health Financial Resource Strain: Low Risk (06/21/2022) Overall Financial Resource Strain (CARDIA) ??? Difficulty of Paying Living Expenses: Not very hard Food Insecurity: No Food Insecurity (06/21/2022) Hunger Vital Sign ??? Worried About Running Out of Food in the Last Year: Never true ??? Ran Out of Food in the Last Year: Never true Transportation Needs: No Transportation Needs (06/21/2022) PRAPARE - Transportation ??? Lack of Transportation (Medical): No ??? Lack of Transportation (Non-Medical): No Stress: No Stress Concern Present (06/21/2022) [place] [facility] Occupational Health - Occupational Stress Questionnaire ??? Feeling of Stress : Only a little Housing Stability: Low Risk (06/21/2022) Housing Stability Vital Sign ??? Unable to Pay for Housing in the Last Year: No ??? Number of Places Lived in the Last Year: 1 ??? Unstable Housing in the Last Year: No control no Folic acid no no Alcohol usage no Illicit substance no Marijuana usage yes Physical Exam: BP 121/81 Pulse 88 Temp 97.6 ??F (36.4 ??C) (Temporal) Wt 66.8 kg (147 lb 3.2 oz) SpO2 98% Awake and alert responding appropriately to questions and commands, moves all extremities. Assessment/Plan: Meredith Frost is a 41 year old female with history of epilepsy, likely focal. Seizures previously controlled for 10+ years til breakthrough seizure on 04/15/19. Last known seizure was on 09/12/2022, with recent aura event around 09/12/2022. MS: -Previously followed by Dr. Cabral -Last Ocrevus infusion was on 06/21/2022, next infusion on 12/21/2022 Migraines: -Followed by Dr. Haywood, receives Botox Major Neurocognitive Disorder -Last evaluation done 08/2021, recommended every 12 months -Apt scheduled on 12/11/2022 -Patient asking about driving, discussed due to her major neurocognitive disorder patient likely isunable to safely drive, can be evaluated at next evaluation -Instructed to report any seizure events/auras -Continue Zonisamide 500mg nightly -Continue lacosamide 200mg BID -Increase Levetiracetam to 1,000mg BID (plan to further optimize with any recurrent seizure) -Discussed importance of medication compliance, proper sleep, and staying hydrated -Future consideration: EMU for further event characterization/surgical evaluation if seizures do not become controlled on ASMs. Follow-up in 3-4 months or sooner if problems arise Patient agrees and voices understanding of plan of care listed above. POST-VISIT MEDICATION (Current as of 09/14/2022) Name Pill Size Frequency Total/Day Level Zonisamide 100 0-5 500mg/day 20.2 (04/10) lacosamide 200mg 1-1 400mg/day 7.3 (04/10) levetiracetam 1,000mg 1-1 2,000mg/day Folic acid 1mg 1-0 1mg/day I told [...] should be used under supervision of a administration vice president. If oral contraception must be used, a higher dosage may be required under supervision of a administration vice president. She was instructed to inform the Neurology Clinic in the event of any planned or unplanned . I personally spent 35 minutes on 09/14/2022 preparing to see the patient (e.g. reviewing chart, review of tests), obtaining and/or reviewing the separately obtained history, performing a medically necessary and appropriate examination and evaluation, counseling and educating the patient/family/caregiver, ordering medications, tests, or procedures, documenting in the patient record, and communicating results to the patient/family/caregiver. ADI Robison 09/14/2022 [facility] documented in this encounter Plan of Treatment Upcoming Encounters Date Type Department Care Team (Late st Contact Info) Description 04/04/2024 8:30 AM AUTOMOTIVE MANUFACTURER Office Visit [facility] - Dermatology [address] [place] [address], [place] [phone] Marlys Zaragoza MD [address] [place] [address] 3 [place] [phone] 09/03/2024 9:00 AM CDT Office Visit [facility] - Neurology [address] [place] [address] [place] [address] Melissa Crook APRN-CNP [address] [place] [phone] documented as of this encounter Visit Diagnoses Diagnosis Seizures (HCC)- Primary Other convulsions documented in this encounter Care Teams Microsoft Dynamics Ax Developer Relationship Specialty Start Date End Date Lauren Saba APRN-CNP [address] [place] [address] PCP - General 01/14/18 05/10/23 documented as of this encounter
--- OUTSIDE RECORDS SUMMARY | 2024-03-22 16:36 | XMS_ITS | Encounter Summary ---
Author Organization [facility] Health Address [address] [place] [address] Care Team Providers Care Psychology Associate Name Role Phone CeresLauren APRNLOCAL OWNER OPERATOR TRUCK DRIVER Primary Care Provider Reason for Visit * Reason Comments Follow-up seizures Encounter Details Date Type Department Care Team (Late st Contact Info) Description 01/09/2023 9:00 AM CDT Office Visit [facility] - Neurology [address] [place] [address] Melissa Crook APRN-CNP [address] [place] [address] Seizures (HCC) (Primary Dx) Social History Tobacco [...] Recorded Patient Health Questionnaire-2 Score 0 01/05/2023 [facility] of Occupat ional Health - Occupational Stress [...] Sign Reading Time Taken Comments Blood Pressure 107/80 01/09/2023 8:50 AM CDT Pulse 66 01/09/2023 8:50 AM CDT Temperature 36.1 ??C (96.9 ??F) 01/09/2023 8:50 AM CD T Respiratory Rate - - Oxygen Saturation 99% 01/09/2023 8:50 AM CDT Inhaled Oxygen Concentration - - Weight 69.9 kg (154 lb 3.2 oz) 01/09/2023 8:50 A M CDT Height 165.1 cm (5' 5 ) 01/09/2023 8:50 AM CDT Body Mass Index 25.66 01/09/2023 8:50 AM CDT documented in this [...] * Patient Instructions* Melissa Crook APRN-CNP - 01/09/2023 9:00 AM CDT -Follow-up in 3-4 months -Continue zonisamide 500mg nightly -Continue lacosamide 200mg twice daily -Start Briviact 100mg, twice daily (once you berry picker machine operator Briviact take 1 pill [100mg] nightly along with levetiracetam 1 pill [1,000mg]) the following day discontinue the levetiracetam and continue Briviact twice daily) -reschedule memory evaluation #[phone] ADI Robison documented in this encounter Progress Notes * Melissa Crook APRN-CNP - 01/09/2023 9:00 AM CDT Epilepsy Clinic Note PCP Lauren Saba, LISETTE-NAIF DATE OF ENCOUNTER: 01/09/2023 CHIEF COMPLAINT: Seizures AGE OF ONSET 24 years old SEMIOLOGY ?? - Aura lightheaded, flushed Duration: <10 minutes Frequency: 1-2 times per month - Ictus #1.) Generalized tonic clonic, LOC, foaming at mouth Duration: 1-2 minutes Frequency: every few months? (previously controlled for 10+ years til 04/15/19) - Post-ictus Sleepy, fatigue, confusion ?? SEIZURE CONTROL Aura: 01/08/2023 Date of last seizure 05/01/2022 PRE-VISIT MEDICATION Name Pill Size Frequency Total/Day Level Zonisamide 100 0-5 500mg/day 20.2 (04/10) Lacosamide 200mg 1-1 400mg/day 7.3 (04/10) Levetiracetam 1,000mg 1-1 2,000mg/day Folic acid 1mg 1-0 1mg/day Pyridoxine 100mg 1-0 100mg/day COMPLIANCE Good AGGRAVATING FACTORS: infections (UTIs), stress TREATMENT HISTORY Name Allergy/Side Effects/Ineffectiveness Topamax Memory problems EE02/03/2021: [facility] (Dr. Terrell) Interpretation: This is an abnormal EEG due to 1) left frontotemporal epileptiform discharges, 2) left hemispheric slowing maximal around the left temporal region, and 3) mild to moderate generalized slowing. 01/03/2021: [facility] (Dr. Angel) Impression: ??Abnormal EEG. ??Left frontal spike and wave and focal slowing, still present, but much less frequent with more return to normal background than seen on previous EEG. ??No seizure like activity was observed. Correlation with clinical findings is Needed. 12/31/2020: [facility] (Dr. Angel) Impression: ??Abnormal EEG. ??Left frontotemporal discharges with focal slowing, suggests likely epileptogenicity from this region. ??No clinical seizures were seen. ??Correlation with clinical findings is needed. 04/15/2019: [facility] IMPRESSION: ??Normal awake and drowsy record IMAGIN05/13/2022: MRI Brain WWO Contrast: [facility] IMPRESSION: 1.Multiple intracranial white matter [...] Name 05/22/18 1040 03/09/17 1445 11/28/16 1333 [id number] 43.5 41 48 Recent Labs Component Name 06/21/22 1254 04/12/22 1337 01/07/21 0931 ZONISAMIDE 23.9 20.2 15 No results for input(s): TOPIRAMATE in the last 04114 hours. Recent Labs Component Name 11/21/22 1438 05/16/19 1159 LEVETIRACETM 20 17.5 No results for input(s): OXCARBAMETAB in the last 07143 hours. Recent Labs Component Name 06/21/22 1254 04/12/22 1337 01/07/21 0931 LACOSAMIDE 8.5 7.3 2.4* HPI: History of Epilepsy: Meredith Frost is a 42 year old female referred to [facility] for seizures. PMH migraines, MS, [...] management. Today's HPI: Meredith Frost is a 42 year old established with [facility], here for a follow-up visit. Prolonged hospitalization from 11/21/2022-12/12/2022 Due to increased aggression and paranoid behavior over last few months. Patient had discontinued her lexapro and this was restarted. While hospitalized B6 was added. Patient reports aura events occurring a few times per month still. Concern levetiracetam adding to mood changes, will transition patient to Briviact. Risk factors: Complex febrile seizure Hx no Head trauma Hx no EMG TECHNICIAN Infection Hx no Family Epilepsy Hx no Handedness right Memory poor Mood Ok History of kidney stones no Driving no Living situation Live alone Work No, on disability Allergies: No Known Allergies Current Outpatient Medications Medication Sig ??? ARIPiprazole ER (Abilify Maintena) 300 MG injection Inject 300 (three hundred) mg into muscle every 30 days for 30 days Administer on 12/27 ??? ARIPiprazole lauroxil ER (Aristada) 662 MG/2.4ML injection Inject 662 (six hundred sixty two) mg into muscle every 28 days ??? baclofen (Lioresal) 10 MG tablet Take 1 (one) tablet by mouth 2 times daily for 30 days May cause drowsiness. Reasons: Muscle Spasm ??? budesonide-formoterol (Symbicort) 160-4.5 MCG/ACT inhaler Inhale [...] 2 times daily for 30 days ??? levETIRAcetam (Keppra) 1000 MG tablet Take 1 (one) tablet by mouth 2 times daily for 30 days ??? pyridoxine 100 MG Take 1 (one) tablet by mouth once daily for 30 days ??? traZODone (Desyrel) 50 MG tablet Take 1 (one) tablet by mouth nightly as needed for Insomnia ??? Ventolin HFA 108 (90 Base) MCG/ACT [...] No Stress: No Stress Concern Present (11/21/2022) [facility] - Occupational Stress Questionnaire [...] no Marijuana usage yes Physical Exam: BP 107/80 Pulse 66 Temp 96.9 ??F (36.1 ??C) (Oral) Ht 1.651 m (5' 5 ) Wt 69.9 kg (154 lb 3.2 oz) SpO2 99% Awake and alert responding appropriately to questions and commands, moves all extremities. Assessment/Plan: Meredith Frost is a 42 year old female with history of epilepsy, likely focal. Seizures previously controlled for 10+ years til breakthrough seizure on 04/15/19. Last known seizure was on 05/01/2022, with recent aura event on 01/08/2023. Concern levetiracetam adding to mood changes, will transition nicolas ent to Briviact. MS: -Previously followed by Dr. Cabral - Ocrevus infusions, next infusion 06/22/2023 Migraines: -Followed by Dr. Haywood, receives Botox apt on 03/16/2023 Major Neurocognitive Disorder -Last evaluation done 08/2021, recommended every 12 months -Missed apt in 11/2022 due to hospitalization; reschedule appoitment -Patient asking about driving, discussed due to her major neurocognitive disorder patient likely isunable to safely drive, can be evaluated at next apt Mood Disorder: -Followed by [facility] Seizures: -Instructed to report any seizure events/auras -Continue Zonisamide 500mg nightly -Continue lacosamide 200mg BID -Start Briviact 100mg BID, discontinue levetiracetam -Discussed importance of medication compliance, proper sleep, and staying hydrated -Future consideration: EMU for further event characterization/surgical evaluation if seizures do not become controlled on ASMs. Follow-up in 3-4 months or sooner if problems arise Patient agrees and voices understanding of plan of care listed above. POST-VISIT MEDICATION (Current as of 01/09/2023) Name Pill Size Frequency Total/Day Level Zonisamide 100 0-5 500mg/day 20.2 (04/10) Lacosamide 200mg 1-1 400mg/day 7.3 (04/10) Briviact 100mg 1-1 200mg/day Folic acid 1mg 1-0 1mg/day I told [...] should be used under supervision of a content strategy lead. If oral contraception must be used, a higher dosage may be required under supervision of a content strategy lead. She was instructed to inform the Neurology Clinic in the event of any planned or unplanned . I personally spent 30 minutes on 01/09/2023 preparing to see the patient (e.g. reviewing chart, review of tests), obtaining and/or reviewing the separately obtained history, performing a medically necessary and appropriate examination and evaluation, counseling and educating the patient/family/caregiver, ordering medications, tests, or procedures, documenting in the patient record, and communicating results to the patient/family/caregiver. ADI Robison 01/09/2023 [facility] documented in this encounter Plan of Treatment Upcoming Encounters Date Type Department Care Team (Late st Contact Info) Description 04/04/2024 8:30 AM POTASH FLAKER Office Visit [facility] - Dermatology [address] [place] [address], [place] [phone] Marlys Zaragoza MD [facility] [address]L [place] [phone] 09/03/2024 9:00 AM CDT Office Visit [facility] - Neurology [address] [place] [address], [place] [phone] Melissa Crook APRN-LOCAL OWNER OPERATOR TRUCK DRIVER [address] [place] [address] documented as of this encounter Visit Diagnoses Diagnosis Seizures (HCC)- Primary Other convulsions documented in this encounter Care Teams Psychology Associate Relationship Specialty Start Date End Date Lauren Saba APRN-LOCAL OWNER OPERATOR TRUCK DRIVER [address] [place] [phone] PCP - General 01/14/18 05/10/23 documented as of this encounter
--- OUTSIDE RECORDS SUMMARY | 2024-03-22 16:36 | XMS_ITS | Encounter Summary ---
Author Organization [facility] Health Address [address] [place] [address] Care Team Providers Care Tax Commissioner Name Role Phone WandyLauren APRN-TRANSFORMATION ANALYST Primary Care Provider Reason for Visit * Reason Onset Date Comments Update 09/22/2022 [employer] message correction per patient. Encounter Details Date Type Department Care Team (Late st Contact Info) Description 09/22/2022 Telephone [facility] - Neurology [address] [place] [address] Melissa Greer APRN-CNP [address] [place] [address] Update ([employer] message correction per patient.) Social History Tobacco Use Types Packs/Day Years [...] Date Recorded PHQ2 TOTAL SCORE 0 09/07/2022 [facility] Occupat ional [facility] - Occupational Stress Questionnaire Answer Date [...] encounter Miscellaneous Notes * Telephone Encounter - Melinda Espinoza, RN - 09/22/2022 1:09 PM CDT PT IS CALLING STATES THAT SHE NEEDS TO SPEAK WITH MELISSA GREER PT IS ALSO ASKING IF A NURSE CANGIVE HER A CALL WELL PER PT REQ SHE HAS MEDICATION QUESTIONS. Returned call to patient. She states that a message has been sent to Provider stating that she is drinking a lot . Patient states that she is not drinking at all and the effects she is having are from marijuana. Reviewed that Provider is not in clinic today but that a messag documented in this encounter Plan of Treatment Upcoming Encounters Date Type Department Care Team (Late st Contact Info) Description 04/04/2024 8:30 AM CONVERSION DEVELOPER Office Visit [facility] - Dermatology [address] [place] [address], [place] [address] Marlys Zaragoza MD [address] [place] [address] [address] [place] [address] 09/03/2024 9:00 AM CDT Office Visit [facility] - Neurology [address] [place] [address], [place] [address] Melissa Greer, YARDAGE CALLER-TRANSFORMATION ANALYST [address] [place] [address] documented as of this encounter Visit Diagnoses Not on filedocumented in this encounter Care Teams Tax Commissioner Relationship Specialty Start Date End Date Lauren Saba APRN-NAIF [address] [place] [phone] PCP - General 01/14/18 05/10/23 documented as of this encounter
--- OUTSIDE RECORDS SUMMARY | 2024-03-22 16:36 | XMS_ITS | Encounter Summary ---
Author Organization [facility] Health Address [address] [facility] [place] [address] Care Team Providers Care Spinner Tender Name Role Phone Lauren Saba Jose Eduardo KNOX-TYPING SECTION CHIEF Primary Care Provider Reason for Visit * Reason Comments Blurred Vision Encounter Details Date Type Department Care Team (Late st Contact Info) Description 02/15/2023 9:15 AM CUSHION MAT MAKER Office Visit [facility] - Ophthalmology [address] [place] [phone] Johnny Ricardo MD [address] [place] [address] DE[place] [phone] Regular astigmatism of both eyes (Primary Dx) Social History Tobacco Use Types [...] Recorded Patient Health Questionnaire-2 Score 0 02/07/2023 [facility] of Occupat ional Health - [...] as of this encounter Progress Notes * Alexis Ryder MD - 02/15/2023 9:46 AM CST Images from the original note were not included. Ophthalmology Office Note Subjective Meredith Frost is an 42 year old Chief Complaint Patient presents with ??? Blurred Vision Meredith Frost is a 42 year old female who presents for blurred vision/updated MRX for glasses. Havingvisual fluctuations. History of migraine. History of epileptic seizure. H/O ANIA bilateral High Myopia Has MS (DX 2005) Contact lens wearer. (Christa) Gtts: NONE Denies pain, pressure, flashes, floaters today. Can Handler notes fluctuations in vision during refraction. Current Outpatient Medications Medication Sig Dispense Refill ??? ARIPiprazole (Abilify) 15 MG tablet Take 1 (one) tablet by mouth at bedtime for 30 days 30 tablet 0 ??? ARIPiprazole lauroxil ER (Aristada) 662 MG/2.4ML injection Inject 662 (six hundred sixty two) mg into muscle every 28 days (Patient not taking: Reported on 01/09/2023) 2.4 mL 0 ??? baclofen (Lioresal) 10 MG tablet TAKE [...] by mouth once daily for 30 days 90 tablet 0 ??? escitalopram (Lexapro) 20 MG tablet Take 1 (one) tablet by mouth once daily for 30 days 30 tablet 0 ??? hydrOXYzine HCl (Atarax) 50 MG tablet Take 1 (one) tablet by mouth 2 times daily as needed (anxiety) 60 tablet 0 ??? lacosamide (Vimpat) 200 MG tablet Take 1 (one) tablet by mouth 2 times daily for 30 days 60 tablet 0 ??? traZODone (Desyrel) 50 MG tablet Take 1 (one) tablet by mouth nightly as needed for Insomnia 30tablet 0 ??? tretinoin (Retin-A) 0.05 % cream [...] medications for this visit. No Known Allergies Past Medical History: Diagnosis Date ??? Asthma [...] ??? [place] CHEMODENERV MUSC MIGRAINE 09/08/2022 ??? Tonsillectomy Bilateral [...] times per week Types: Marijuana Comment: Daily Review of Systems (positives in bold) Constitutional: Chills, fever and weight loss. HENT: Ear discharge, hearing loss and tinnitus. Respiratory: Cough, hemoptysis and wheezing. Cardiovascular: Chest pain and palpitations. Gastrointestinal: Abdominal pain, nausea and vomiting. Genitourinary: Dysuria, frequency and urgency. Musculoskeletal: Back pain, falls and myalgias. Skin: Itching and rash. Neurological: Sensory change, speech change and focal weakness. Psychiatric/Behavioral: Hallucinations, substance abuse and suicidal ideas. Objective Base Eye Exam Visual Acuity (Snellen - Linear) Right Left Dist cc 20/20 -1 20/25 +1 Correction: Glasses Tonometry (Tonopen, 9:36 AM) Right Left Pressure 15 11 Pupils Pupils Dark Light Shape React APD Right PERRL 4 3 Round Brisk None Left PERRL 4 3 Round Brisk None Visual De (Counting fingers) Left Right Full Full Extraocular Movement Right Left Full, Ortho Full, Ortho Neuro/Psych Oriented x3: Yes Mood/Affect: Normal Dilation Both eyes: 1.0% Mydriacyl, 2.5% Gil Synephrine @ 9:35 AM Additional Tests Color Right Left Ishihara 03/01 Slit Lamp and Fundus Exam External Exam [...] 0.4 Macula Normal Normal Vessels Normal Normal Periphery Normal Normal Refraction Wearing Rx Sphere Cylinder [place] Right -6.25 -0.50 015 Left -6.75 -0.25 155 Type: SV Manifest Refraction (Auto) Sphere Cylinder [place] Dist VA Right -7.25 +0.75 115 20/25+ Left -6.50 +0.50 060 20/25+ Manifest Refraction #2 Sphere Cylinder [place] Dist VA Right -7.00 +0.75 115 20/25+ Left -7.00 +0.25 065 20/20 Manifest Refraction Comments Auto= Dr Velasquez's RX from August MRX Can not improve past 20/25 OD Improvement OS Pt sees well with current RX Studies 02/15/2023: PENTACAM UNI/BI Regular WTR astigmatism OU Assessment/Plan Meredith Frost is a 42 year old female LEVI - Pt reports months of blurry vision OD with both glasses and contacts - Pentacam with regular astigmatism OU Mild strab amblyopia OS Microstrabismus OS Positive 4 WILD test OS. Small ET OS Nearly 20/20 each eye. OD seems mildly better than OS - stable per pt No history of EOM surgery Mild cataracts OU Not visually significant, unlikely to be the source of blurry vision MS H/o ANIA per chart Full EOM ranges today, denies eye pain, denies double vision, color plates full OD, missed 2 OS Pt reports last flare up was a long time ago and usually gets double vision and blurry vision during flare ups Pt reports occasional flutter OS. Refractive Error Pt habitually wore Acuvue Oasys 1 Day -6.25 OD, -6.[address] Velasquez updated CL Rx to Acuvue Oasys 1 Day -6.00 OD, -5.50 OS. Pt ed on healthy habits with CL wear. Updated spec Rx, update PRN. Plan RTC 1 year for annual examination with DFE or sooner if problems arise. Follow up with Dr. Velasquez Patient verbalizes understanding of the above assessment/plan, patient's questions were answered tothe best of my ability, and patient agrees with the plan. Please see attending note for updates to plan. Alexis Ryder MD Ophthalmology Resident 02/15/2023 10:56 AM ION MAT MAKER Associated attestation - Johnny Ricardo MD - 02/15/2023 11:02 AM CUSHION MAT MAKER I have examined the patient in person with the resident and/or student, verified rajan portions of the exam, reviewed the note and amended it as needed, and discussed the assessment and plan with the resident and/or student, who incorporated the recommendations into their note. I also discussed the exam findings and my recommendations with the patient and any family members in attendance. Their questions were answered fully. Arrangements for follow-up appointments and testing were scheduled priorto the patient's departure. In addition, I note the following: LEVI: The patient has symptoms and signs consistent with dry eye syndrome. I recommend starting non-preserved artificial tears (NPAT's) OU QID + prn. If the frequency of drops required to alleviate symptoms reaches Q 1 hour, then punctum occlusion may be advisable. Mild strab amblyopia OS Microstrabismus OS Positive 4 WILD test OS. Small ET OS Nearly 20/20 each eye. OD seems mildly better than OS - stable per pt No history of EOM surgery Mild cataracts OU Not visually significant, unlikely to be the source of blurry vision MS: H/O ANIA per chart Full EOM ranges today, denies eye pain, denies double vision, color plates full OD, missed 2 OS Pt reports last flare up was a long time ago, and usually gets double vision and blurry vision during flare ups. Pt reports occasional flutter OS. Refractive Error: Patient defers Rx today. Follow up with Clinic for fitting. Follow up with [facility] for orthoptic evaluation before making final specs. Johnny Ricardo MD, PhD Attending, Cornea and Anterior Segment Service Date of Service: 02/15/2023 documented in this encounter Plan of Treatment Upcoming Encounters Date Type Department Care Team (Late st Contact Info) Description 04/04/2024 8:30 AM CUSHION MAT MAKER Office Visit [facility] - Dermatology [address] [place] [address], [place] [address] Marlys Zaragoza MD [address] [place] [address] [address] [place] [phone] 09/03/2024 9:00 AM CDT Office Visit [facility] - Neurology [address] [place] [phone] Melissa Crook APRN-TYPING SECTION CHIEF [address] [place] [phone] Pending Results Name Type Priority Associated Diagnoses Date /Time PENTACAM UNI/BI Ophthalmology Routine Regular astigmatism of both eyes 02/15/2023 9:57 AM CUSHION MAT MAKER Scheduled Orders Name Type Priority Associated Diagnoses Orde r Schedule PENTACAM UNI/BI Ophthalmology Routine Regular astigmatism of both eyes Expected: 02/15/2023, Expires: 04/17/2024 documented as of this encounter Visit Diagnoses Diagnosis Regular astigmatism of both eyes- Primary Regular astigmatism documented in this encounter Care Teams Spinner Tender Relationship Specialty Start Date End Date Lauren Saba PUBLIC EMPLOYMENT MEDIATOR-TYPING SECTION CHIEF [address] [place] [phone] PCP - General 01/14/18 05/10/23 documented as of this encounter
--- OUTSIDE RECORDS SUMMARY | 2024-03-22 16:36 | XMS_ITS | Encounter Summary ---
Author Organization [facility] Health Address [address] [place] [address] Care Team Providers Care Manager Traffic Name Role Phone Lauren Saba Primary Care Provider Encounter Details Date Type Department Care Team ([facility] st Contact Info) Description 01/22/2023 Orders Only [facility] - Neurology [address] [facility], [facility] [place] [phone] Melissa Crook APRN-CNP [address] [place] [address] Seizures (HCC) Social History Tobacco [...] Recorded Patient Health Questionnaire-2 Score 0 01/05/2023 [facility] of Occupat ional Health - Occupational Stress [...] st Contact Info) Description 04/04/2024 8:30 AM EMAIL OPERATIONS MANAGER Office Visit [facility] - Dermatology [address] [place] [address], [place] [address] Marlys Zaragoza MD [address] [place] [address] 3 [place] [phone] 09/03/2024 9:00 AM CDT Office Visit [facility] - Neurology [address] [place] [phone] Melissa Crook APRN-VIRTUALIZATION ENGINEER [address] [place] [phone] documented as of this encounter Visit Diagnoses Diagnosis Seizures (HCC) Other convulsions documented in this encounter Care Teams Manager Traffic Relationship Specialty Start Date End Date Lauren Saba APRN-VIRTUALIZATION ENGINEER [address] [place] [phone] PCP - General 01/14/18 05/10/23 documented as of this encounter
--- OUTSIDE RECORDS SUMMARY | 2024-03-22 16:36 | XMS_ITS | Encounter Summary ---
Author Organization [facility] Health Address [address] [place] [address] Care Team Providers Care Heating And Ventilating Worker Name Role Phone Lauren Saba Jose Eduardo KNOX-CHRISTIAN SCIENCE NURSE Primary Care Provider Encounter Details Date Type Department Care Team (Latest Contact Info) Description 02/15/2023 10:00 AM INSPECTOR WATCH ASSEMBLY Clinical Support [facility] - Ophthalmology [address] [place] [phone] Johnny Ricardo MD [address] [place] [address] [place] [address] Regular astigmatism of both eyes (Primary Dx) [...] Recorded Patient Health Questionnaire-2 Score 0 02/07/2023 [facility] [place] of Occupat ional Health - Occupational Stress [...] st Contact Info) Description 04/04/2024 8:30 AM INSPECTOR WATCH ASSEMBLY Office Visit [facility] - Dermatology [address] [place] [address], [place] [address] Marlys Zaragoza MD [address] [place] [address] 3 [place] [phone] 09/03/2024 9:00 AM CDT Office Visit [facility] - Neurology [address] [place] [phone] Melissa Crook APRN-CHRISTIAN SCIENCE NURSE [address] [place] [phone] Pending Results Name Type Priority Associated Diagnoses Date /Time PENTACAM UNI/BI Ophthalmology Routine Regular astigmatism of both eyes 02/15/2023 9:57 AM INSPECTOR WATCH ASSEMBLY documented as of this encounter Visit Diagnoses Diagnosis Regular astigmatism of both eyes- Primary Regular astigmatism documented in this encounter Care Teams Heating And Ventilating Worker Relationship Specialty Start Date End Date Lauren Saba, PACKING AND FINAL ASSEMBLY SUPERVISOR-CHRISTIAN SCIENCE NURSE [address] [place] [phone] PCP - General 01/14/18 05/10/23 documented as of this encounter
--- OUTSIDE RECORDS SUMMARY | 2024-03-22 16:36 | XMS_ITS | Encounter Summary ---
Author Organization [facility] Health Address [address] [facility] [facility] [place] [address] Care Team Providers Care Cigar Bander Name Role Phone Lauren Saba Primary Care Provider Reason for Visit * Reason Onset Date Comments MEDICATION REFILL 09/21/2022 Encounter Details Date Type Department Care Team (Late st Contact Info) Description 09/21/2022 Refill [facility] - Neurology [address] [place] [address] Melissa Crook APRN-CNP [address] [place] [phone] MEDICATION REFILL Social History Tobacco Use Types [...] Date Recorded PHQ2 TOTAL SCORE 0 09/07/2022 [facility] [place] of Occupat ional Health - Occupational [...] money to buy more. Never true 06/22/19 Within the past 12 months, t he [...] * Telephone Encounter - Anuradha Carcamo - 09/21/2022 10:20 AM CDT Refill Request Meredith Frost CRISTELA: 09/08/2022 NOV due: 01/09/2023 NOV scheduled: 01/09/2023 LRF: 09/14/2022 Qty Disp: 180 tablet # of refills: 3 Allergies: No Known Allergies Pended Medication Order: Requested Prescriptions Pending Prescriptions Disp Refills ??? lacosamide (Vimpat) 200 MG tablet 180 tablet 3 Sig: Take 1 (one) tablet by mouth 2 times daily documented in this encounter Plan of Treatment Upcoming Encounters Date Type Department Care Team (Late st Contact Info) Description 04/04/2024 8:30 AM FRAME ASSEMBLER Office Visit [facility] - Dermatology [address] [place] [phone] Marlys Zaragoza MD [address] [place] [address] 3 [place] [phone] 09/03/2024 9:00 AM CDT Office Visit [facility] - Neurology [address] [place] [phone] Melissa Crook, LISETTE-VETERINARY NURSE [address] [place] [phone] documented as of this encounter Visit Diagnoses Diagnosis Seizures (HCC) Other convulsions documented in this encounter Care Teams Cigar Bander Relationship Specialty Start Date End Date Lauren Saba APRN-VETERINARY NURSE [address] [place] [phone] PCP - General 01/14/18 05/10/23 documented as of this encounter
--- OUTSIDE RECORDS SUMMARY | 2024-03-22 16:36 | XMS_ITS | Encounter Summary ---
Author Organization [facility] Health Address [address] [facility] [place] [address] Care Team Providers Care Industrial Pipefitter Journeyman Name Role Phone Lauren Saba Jose Eduardo KNOX-PRINTED CIRCUIT BOARDS PINNER Primary Care Provider Reason for Visit * Reason Comments Acne face Skin Lesion Spot on right side o f nose Encounter Details Date Type Department Care Team (Late st Contact Info) Description 03/23/2023 2:10 PM FARM OPERATIONS TECHNICAL DIRECTOR Office Visit [facility] - Dermatology [address] [place] [address], [facility] [place] [phone] Marlys Zaragoza MD [address] [place] [address] 3 [place] [phone] Acne vulgaris (Primary Dx); Lentigines; Seborrheic keratosis; Spider angioma Social History Tobacco Use Types Packs/Day Years [...] Recorded Patient Health Questionnaire-2 Score 1 03/02/2023 [facility] of Occupat ional Health - Occupational [...] in a skilled nursing (including now)? No 11/21/2022 Education Answer Date [...] this encounter Patient Instructions * Patient Instructions* Tony Sandhu PA-C - 03/23/2023 2:34 PM FARM OPERATIONS TECHNICAL DIRECTOR It was a pleasure seeing you in clinic today. Please return for follow up in 6 months for full bodyskin exam. Continue regular medications, tretinoin at night and benzoyl peroxide in the morning Use sunscreen SPF 50 regularly on face SUNSCREENS UVA and UVB PROTECTION Sunlight consists of two types of light that can cause or worsen most skin problems: UVA (ultraviolet A) Brown spots Wrinkles Aging Rosacea Less variation with seasons All year round All day strong No rating system available Passes through glass and clouds UVB (ultraviolet B) Skin cancers Sunburn Tanning Strongest in summer Peak hours 10 am to 2pm SPF rates UVB protection, SPF 30 blocks 97% of UVB rays. Sunscreens that block both UVA and UVB [...] necessary to adequately cover the entire body. The sunscreens I personally recommend are - Yunier HAWKINS (you can order it online at dermSeeClickFix. You can buy it at [facility] or at administrative assistant front desk at [facility] location. It has microsized Zinc oxide and/or titanium dioxide). UV Elements Tinted Facial Sunscreen Broad Spectrum SPF 44 and UV Replenish Facial Sunscreen Broad Spectrum SPF 44 or EltaMD UV Pure Broad-Spectrum SPF 47. - Neutrogena Neutrogena?? Sensitive Skin Face Liquid Sunscreen Broad Spectrum SPF 50 - Oil of Olay complete defense daily UV moisturizer with SPF 30 or Regenerist Hydrating Moisturizerwith Mineral SPF 30 (Fragrance Free) -Cetaphil SPF 30 for normal skin or SPF 50 for dry skin. -CeraVe A.M. Facial Moisturizing Lotion SPF 30 or CeraVe Hydrating Sunscreen SPF 30 or 50 Face Lotion (for dry skin) -La Gonzalez-Posay Toleriane Double Repair Face Moisturizer SPF 30 -Clinique Superdefense City Block Broad Spectrum SPF 50 Daily Energy + Face Protecto -Banana Boat Kids Tear-Free Sunscreen Lotion SPF 50 (d) -Coppertone Kids Tear Free Sunscreen Lotion SPF 50 Sunscreens that contain iron oxide may block extra visible light, and some options include: EltaMD UV Physical Tinted Facial Suncreen, TiZo 3 Tinted Face Mineral Sunscreen, & Supergoop Smooth andPoreless 100% Mineral Matte Screen. OPERATIONS TECHNICAL DIRECTOR documented in this encounter Progress Notes * Marlys Zaragoza MD - 03/23/2023 2:26 PM CST Chief Complaint Patient presents with ??? Acne face ??? Skin Lesion Spot on right side of nose HPI: Meredith Frost a 42 year old female presents for f/u of acne. LV 10/06/2021: Acne and benign full body skin exam Concerns: 1. Acne Location: cheeks Duration: years Symptoms: none Previous treatments: - tretinoin cream 0.05% - BPO wash Personal history of skin cancer: none PE: No acute distress. Mood clear/affect appropriate. Alert and oriented. Mucous membranes moist. Sclera anicteric. Full body skin exam was conducted to include the scalp, face, lips/teeth, lids/conjunctiva, ears, neck, chest, abdomen, back, groin/buttock, right and left hands and forearms, right and left leg and feet and was normal with the following exceptions: - Mild inflammatory papules on cheeks and forehead - Various valentine to brown waxy stuck-on papules located on torso and extremities - Multiple hyperpigmented macules and patches on sun exposed area of skin - 1 pink smooth papule with branching telangiectasias on dermoscopy A/P: Meredith was seen today for acne and skin lesion. Diagnoses and all orders for this visit: Acne vulgaris on face, well controlled - Discussed Dx, etiology, clinical course, Tx options, and expectations - Condition is flaring, not at goal, mild in severity - Continue tretinoin 0.05% cream QD at night - Continue BPO wash QD in morning Lentigines - Reassured of benign appearance today - Continue sun protection with sunscreen, sun protective clothing and sun avoidance Seborrheic keratosis - Benign, patient reassured Spider angioma - Benign, patient reassured - Sunscreen may help angioma be less prominent - Advised regular sunscreen use SPF 30+ with broad spectrum coverage, reapplied every 2-4 hours Sun protection, sunscreen with broad spectrum protection, SPF 30 and above, and self exam discussed. RTC in 6 months for full body skin exam Billing Guide Tony Sandhu PA-C I have verified the documentation of the physician television production assistant including all history, exam, and medical decision-making details. I have personally performed a physical exam and have personally reviewedthe data to support my medical decision-making as outlined in the physician television production assistant note, and I arrive independently at the same conclusion Date of Service: 03/23/2023 Marlys Zaragoza MD Clinical Precision Layout Worker of Dermatology [facility] OPERATIONS TECHNICAL DIRECTOR documented in this encounter Plan of Treatment Upcoming Encounters Date Type Department Care Team (Late st Contact Info) Description 04/04/2024 8:30 AM FARM OPERATIONS TECHNICAL DIRECTOR Office Visit [facility] - Dermatology [address] [place] [address], [place] [address] Marlys Zaragoza MD [address] [place] [address] 3 [place] [address] 09/03/2024 9:00 AM CDT Office Visit [facility] - Neurology [address] [place] [address] [place] [address] Melissa Crook APRN-NAIF [address] [place] [phone] documented as of this encounter Visit Diagnoses Diagnosis Acne vulgaris- Primary Other acne Lentigines Other dyschromia Seborrheic keratosis Spider angioma Nevus, non-neoplastic documented in this encounter Care Teams Industrial Pipefitter Journeyman Relationship Specialty Start Date End Date Lauren Saba APRN-PRINTED CIRCUIT BOARDS PINNER [address] [place] [phone] PCP - General 01/14/18 05/10/23 documented as of this encounter
--- OUTSIDE RECORDS SUMMARY | 2024-03-22 16:36 | XMS_ITS | Encounter Summary ---
Author Organization [facility] Health Address [address] [place] [address] Care Team Providers Care Commercial Real Estate Attorney Name Role Phone Lauren Saba Jose Eduardo KNOX-SUPERVISOR HOUSECLEANER Primary Care Provider Encounter Details Date Type Department Care Team (Latest Contact Info) Description 05/04/2023 Travel Social History Tobacco Use Types Packs/Day [...] Recorded Patient Health Questionnaire-2 Score 1 03/02/2023 [facility] [place] of Occupat ional Health - Occupational Stress [...] Info) Description 04/04/2024 8:30 AM PROFESSOR OF BIOSTATISTICS Office Visit [facility] - Dermatology [address] [place] [address], [place] [phone] Marlys Zaragoza MD [address] [place] [address] [address] [place] [phone] 09/03/2024 9:00 AM CDT Office Visit [facility] - Neurology [address] [place] [address], [place] [phone] Melissa Crook APRN-CNP [address] [place] [phone] documented as of this encounter Visit Diagnoses Not on filedocumented in this encounter Care Teams Commercial Real Estate Attorney Relationship Specialty Start Date End Date Lauren Saba APRN-SUPERVISOR HOUSECLEANER 9 [place] [phone] PCP - General 01/14/18 05/10/23 documented as of this encounter
--- OUTSIDE RECORDS SUMMARY | 2024-03-22 16:36 | XMS_ITS | Encounter Summary ---
Author Organization [facility] Health Address [address] [place] [address] Care Team Providers Care Line Service Supervisor Name Role Phone Wandy, Lauren Whitt APRN-MANAGER MASS Primary Care Provider A, Unknown Practice Primary Care Provider [phone] Unknown, Provider Primary Care Provider Joy Garvey PA-C Primary Care Provider [phone] Reason for Visit * Reason Onset Date Comments Reschedule Appointment 12/28/2022 Encounter Details Date Type Department Care Team (Late st Contact Info) Description 12/28/2022 Telephone [facility] - Centralized Scheduling [address] [place] [phone] Mckayla Haywood MD [address] [place] [phone] Reschedule Appointment Social History Tobacco Use Types Packs/Day Years [...] Date Recorded PHQ2 TOTAL SCORE 0 09/07/2022 [facility] of Occupat ional [facility] - Occupational Stress Questionnaire Answer Date [...] encounter Miscellaneous Notes * Telephone Encounter - Sheeba Pedroza - 12/28/2022 11:19 AM CDT Meredith's 06/15/23 Botox appointment has been bumped. Please call Meredith to reschedule her appointment. documented in this encounter Plan of Treatment Upcoming Encounters Date Type Department Care Team (Late st Contact Info) Description 04/04/2024 8:30 AM SECOND RIGGER Office Visit [facility] - Dermatology [address] [place] [phone] Marlys Zaragoza MD [address] [place] [address] 3 [place] [phone] 09/03/2024 9:00 AM CDT Office Visit [facility] - Neurology [address] [place] [phone] Melissa Crook APRN-CNP [address] [place] [phone] documented as of this encounter Visit Diagnoses Not on filedocumented in this encounter Care Teams Line Service Supervisor Relationship Specialty Start Date End Date Lauren Saba APRN-CNP [address] [place] [phone] PCP - General 01/14/18 05/10/23 A, Unknown Practice [address] [place] [phone] PCP - General 05/11/23 09/10/23 Unknown, Provider PCP - General 09/11/23 01/28/24 Joy Sheppard PA-C [address] [place] [phone] PCP - General 01/29/24 documented as of this encounter
--- OUTSIDE RECORDS SUMMARY | 2024-03-22 16:37 | XMS_ITS | Encounter Summary ---
Author Organization [facility] Health Address [address] [place] [address] Care Team Providers Care Clinical Rehabilitation Specialist Name Role Phone Lauren Saba Jose Eduardo KNOX-DIGITAL INTERN Primary Care Provider Reason for Visit * Reason Onset Date Comments Medication Management 02/01/2022 Encounter Details Date Type Department Care Team (Late st Contact Info) Description 02/01/2022 Telephone [facility] [address] [facility], [place] [address] Markus Cabral MD [address] [place] [phone] Medication Management Social History Tobacco Use Types Packs/Day Years Used Date Smoking Tobacco: Never Smokeless Tobacco: Never Alcohol Use Standard Drinks/Week Comments Yes 8 (1 standard drink = 0.6 oz pur e alcohol) socially 1 X q 6 months AUDIT-C Answer Date Recorded Q1: How often do you have a drink containing alc ohol? Never 05/13/2021 Q2: How many drinks containi ng alcohol do you have on a typical day when you are drinking? 7 to 9 05/13/2021 Q3: How often do you have six or more drinks on one occasion? Never 05/13/2021 PHQ-2 Answer Date Recorded PHQ2 TOTAL SCORE 0 01/11/2022 Education Answer Date Recorded What is the [...] Miscellaneous Notes * Telephone Encounter - Melinda Espinoza RN - 02/01/2022 3:52 PM CST Call to [facility]- patient was provided with partial fill as the Vimpat had to be ordered.No insurance issues Call to patient- she is out of medication. Recommended she call pharmacy for another partial refilluntil full prescription is available. She verbalizes understanding. NCIAL BROKERS * Telephone Encounter - Melinda Espinoza RN - 02/01/2022 3:48 PM CST ----- Message from Dilma Gruber RN sent at 02/01/2022 3:40 PM FINANCIAL BROKERS ----- Regarding: FW: MEDICATION ISSUES ----- Message ----- From: Bud Freitas Sent: 02/01/2022 3:36 PM FINANCIAL BROKERS To: Neur Nursing Staff Subject: MEDICATION ISSUES Pt is calling asking if the Dr can give her a call she states she has not gotten her medication as of yet the (VIMPAT) is what she is not receiving. Pt can be reached @ [phone]. Thanks NCIAL BROKERS documented in this encounter Plan of Treatment Upcoming Encounters Date Type Department Care Team (Late st Contact Info) Description 04/04/2024 8:30 AM FINANCIAL BROKERS Office Visit [facility] - Dermatology [address] [place] [address], [place] [phone] Marlys Zaragoza MD [address] [place] [address] 3 [place] [phone] 09/03/2024 9:00 AM CDT Office Visit [facility] - Neurology [address] [place] [address], [place] [phone] Melissa Crook APRN-DIGITAL INTERN [address] [place] [phone] documented as of this encounter Visit Diagnoses Not on filedocumented in this encounter Care Teams Clinical Rehabilitation Specialist Relationship Specialty Start Date End Date Lauren Saba APRN-DIGITAL INTERN [address] [place] [phone] PCP - General 01/14/18 05/10/23 documented as of this encounter
--- OUTSIDE RECORDS SUMMARY | 2024-03-22 16:37 | XMS_ITS | Encounter Summary ---
Author Organization [facility] Health Address [address] [facility] [place] [address] Care Team Providers Care Collar Tacker Name Role Phone Lauren Saba Jose Eduardo KNOX-PUBLICITY DIRECTOR Primary Care Provider Reason for Visit * Reason Onset Date Comments Medication Clarification 05/09/2021 Encounter Details Date Type Department Care Team (Late st Contact Info) Description 05/09/2021 Telephone [facility] [address] [place] [phone] Markus Cabral MD [address] [place] [phone] Medication Clarification Social History Tobacco Use Types Packs/Day Years Used Date Smoking Tobacco: Never Smokeless Tobacco: Never Alcohol Use Standard Drinks/Week Comments Yes 1 (1 standard drink = 0.6 oz pure alcohol) socially- once- twice a month, jeffry Sex and Gender Information Value Date Recorded Sex Assigned at Female 06/22/2023 9:58 AM CDT Gender Identity Female 06/22/2023 9:58 AM CDT Sexual Orientation Straight 06/22/2023 9: 58 AM CDT documented as of this encounter Miscellaneous Notes * Telephone Encounter - Hortencia Flores - 05/09/2021 2:31 PM CST Pt calling to clarify dosing of her vimpat- is she to be taking 200 mg in the am and 200 mg in the pm? She is unsure. Please review and advise. TESTER documented in this encounter Plan of Treatment Upcoming Encounters Date Type Department Care Team (Late st Contact Info) Description 04/04/2024 8:30 AM PULP TESTER Office Visit [facility] - Dermatology [address] [place] [address], [place] [phone] Marlys Zaragoza MD [address] [place] [address] [address] [place] [phone] 09/03/2024 9:00 AM CDT Office Visit [facility] - Neurology [address] [place] [address], [place] [phone] Melissa Crook APRN-CNP [address] [place] [phone] documented as of this encounter Visit Diagnoses Not on filedocumented in this encounter Care Teams Collar Tacker Relationship Specialty Start Date End Date Lauren Saba APRN-CNP [address] [place] [phone] PCP - General 01/14/18 05/10/23 documented as of this encounter
--- OUTSIDE RECORDS SUMMARY | 2024-03-22 16:37 | XMS_ITS | Encounter Summary ---
Author Organization [facility] Health Address [address] [place] [address] Care Team Providers Care Knitting Machine Operator Name Role Phone Lauren Saba Jose Eduardo KNOX-HAND LAUNDERER Primary Care Provider Reason for Visit * Reason Comments Establish Care 1yr renal results Encounter Details Date Type Department Care Team (Late st Contact Info) Description 08/26/2021 8:30 AM CDT Office Visit [facility] [address] [facility], [facility] [place] [address] [address] Cheng Cotter MD Urinary urgency (Primary Dx); Neurogenic bladder; MS (multiple sclerosis) (HCC) Social History Tobacco [...] Answer Date Recorded PHQ2 TOTAL SCORE 0 07/21/2021 Education Answer Date Recorded What is the [...] Sign Reading Time Taken Comments Blood Pressure 107/72 08/26/2021 8:31 AM CDT Pulse 75 08/26/2021 8:31 AM CDT Temperature 36.8 ??C (98.2 ??F) 08/26/2021 8:31 AM CD T Respiratory Rate 18 08/26/2021 8:31 AM CDT Oxygen Saturation 98% 08/26/2021 8:31 AM CDT Inhaled Oxygen Concentration - - Weight 69.4 kg (153 lb) 08/26/2021 8:31 AM CDT Height 165.1 cm (5' 5 ) 08/26/2021 8:31 AM CDT Body Mass Index 25.46 08/26/2021 8:31 AM CDT documented in this encounter Functional [...] this encounter Patient Instructions * Patient Instructions* Tate Gant MD - 08/26/2021 8:59 AM CDT Please follow up in 2-3 months to evaluate for response to medications Start taking myrbetriq every day until your follow up appointment We will hold off on a repeat US for now documented in this encounter Progress Notes * Tate Gant MD - 08/26/2021 9:05 AM CDT [facility] Division of Urologic Surgery Cheng Cotter MD Date of Visit: 08/26/2021 Patient Name: Meredith Frost Medical Record: [id number] : 1980 Age: [age] year old Sex: female Chief Complaint: 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 The patient was last seen 08/27/2020. Patient has hx of extensive MS. She has tried multiple medications for this in the past. She has also developed urinary issues and in particular urgency incontinence and overactivity. She underwent UDS on 08/27/2020 which showed impaired bladder contractility with hypersensitivity. Her cystoscopy was normal at that time.We have discussed starting myrbetriq before and did at our last visit on 12/2020. Patient reports improvement, no episodes of retention but failed to follow up and prescription . Reportedly also has trichomoniasis infection that is being managed by glory hole tender. Here today for follow up. Patient reports doing well overall. She endorses this Trichomoniasis infection for which she is on a second course of abx. She reports not having her partner treated initially. She is seeing infectious disease specialist next week for further management as well. She reports continued urinary incontinent. Associated with urge and stress per patient but previous UDS only showed urge. She reports having to change her clothes throughout the day due to leakage. Unsure if this is strictly due to her urinary incontinence or also her vaginal discharge. Bladder scan today 183ml Creatinine 0.6 on 06/29/2021 Note that patient is a difficult historian possibly due to MS. Review of Systems Constitutional: Negative for fatigue, weight loss, fevers, chills, anorexia. Respiratory: Negative for shortness of breath, acute cough, asthma, wheezing Cardiovascular: Negative for chest pain, cyanosis Gastrointestinal: Negative for nausea, vomiting, hemetemesis, hematochezia, abdominal pain, constipation, diarrhea Genitourinary: OAB, UUI, vaginal discharge Negative for dysuria, hematuria Skin: Negative for rash Hematologic/lymphatic: Negative for easy bruising Neurological: Negative for headaches, seizures Past Medical History: Past Medical History: Diagnosis Date ??? Asthma ??? Migraines ??? MS (multiple sclerosis) ??? Seizures Past Surgical History: Past Surgical History: Procedure Laterality Date ??? KNEE ARTHROPLASTY Right ??? SC CHEMODENERV MUSC MIGRAINE 07/18/2017 ??? SC CHEMODENERV MUSC MIGRAINE 10/17/2017 ??? SC CHEMODENERV MUSC MIGRAINE 01/14/2018 ??? SC CHEMODENERV MUSC MIGRAINE 04/15/2018 ??? SC CHEMODENERV MUSC MIGRAINE 07/22/2018 ??? SC CHEMODENERV MUSC MIGRAINE 10/21/2018 ??? SC CHEMODENERV MUSC MIGRAINE 10/13/2019 ??? SC CHEMODENERV MUSC MIGRAINE 01/12/2020 ??? SC CHEMODENERV MUSC MIGRAINE 04/19/2020 ??? SC CHEMODENERV MUSC MIGRAINE 07/21/2020 ??? SC CHEMODENERV MUSC MIGRAINE 11/01/2020 ??? SC CHEMODENERV MUSC MIGRAINE 02/14/2021 ??? SC CHEMODENERV MUSC MIGRAINE 07/13/2021 ??? Tonsillectomy Bilateral Family History: Family History Problem Relation Name Age of [...] Neg Hx ??? Psoriasis Neg Hx Social History: Social History Occupational History ??? Occupation: Disabled Tobacco Use ??? Smoking status: Never Smoker ??? Smokeless tobacco: Never Used Vaping Use ??? Vaping Use: Never used Substance and Sexual Activity ??? Alcohol use: Yes Alcohol/week: 8.0 standard drinks Types: 6 Cans of beer, 2 Shots of liquor per week Comment: socially 1 X q 6 months ??? Drug use: Yes Frequency: 7.0 times per week Types: Marijuana Comment: Daily ??? Sexual activity: Not Currently Partners: Male Current medications: Current Outpatient Medications on File Prior to Visit Medication Sig Dispense Refill ??? ABILIFY MAINTENA 300 MG injection Inject 300 (three hundred) mg into muscle every 28 days ; last received on 05/18/2021. Next due 06/15/2021. Reasons: Unspecified Psychosis. Behavioral Disturbances in Dementia 1 Each 5 ??? baclofen (LIORESAL) 10 MG tablet Take 1 (one) tablet by mouth 2 times daily May cause drowsiness. Reasons: Muscle Spasticity 60 tablet 0 ??? clonazePAM (KLONOPIN) 0.5 MG tablet Take 1 (one) tablet by mouth at bedtime 30 tablet 2 ??? docusate sodium (COLACE) 100 MG capsule Take 100 mg by mouth every 12 hours ??? escitalopram (LEXAPRO) 20 MG tablet Take 1 (one) tablet by mouth once daily 30 tablet 2 ??? fluticasone propionate (FLONASE) 50 MCG/ACT nasal spray [place] 2 (two) sprays into each nostril once daily 1 Each 0 ??? folic acid (FOLVITE) 1 MG tablet Take 1 (one) tablet by mouth once daily 30 tablet 0 ??? lacosamide (VIMPAT) 200 MG tablet Take 1 (one) tablet by mouth 2 times daily 180 tablet 3 ??? metroNIDAZOLE (FLAGYL) 500 MG tablet Take 500 mg by mouth 2 times daily FOR 7 DAYS ??? multivitamin daily tablet Take 1 (one) tablet by mouth once daily 30 tablet 0 ??? onabotulinumtoxin A (BOTOX) 100 units injection Inject 200 (two hundred) Units into muscle Every 90 days Reasons: Migraine Headache 2 Each 3 ??? SYMBICORT 160-4.5 MCG/ACT inhaler Inhale 2 puffs by mouth 2 times daily ??? thiamine (VITAMIN B-1) 100 MG tablet Take 1 (one) tablet by mouth once daily 30 tablet 0 ??? tretinoin (RETIN-A) 0.05 % cream Pea sized amount to entire face at night. 30 days supply. 20 g0 ??? triamcinolone acetonide (KENALOG) 0.025 % ointment APPLY THIN LAYER TOPICALLY TO THE AFFECTED AREA TWICE DAILY FOR 7 DAYS NEEDED ??? zonisamide (ZONEGRAN) 100 MG capsule Take 5 (five) capsules by mouth at bedtime Reasons: Focal Epilepsy 450 capsule 3 Current Facility-Administered Medications on File Prior to Visit Medication Dose Route Frequency Provider Last Rate Last Admin ??? ARIPiprazole ER (Abiliflenore Maintena) prefilled syringe 300 mg 300 mg Intramuscular q28 days Venkata Glez MD 300 mg at 07/13/21 0947 Allergies: No Known Allergies Physical Examination: BP 107/72 (BP SITE: LEFT ARM, BP POSITION: SITTING, BP CUFF SIZE: 11) Pulse 75 Temp 98.2 ??F (36.8 ??C) (Temporal) Resp 18 Ht 5' 5 (1.651 m) Wt 153 lb (69.4 kg) SpO2 98% BMI 25.46 kg/m?? Body mass index is 25.46 kg/m??. General: NAD Eyes: conjunctiva clear ENT: MMM, oropharynx clear Lungs: No increased respiratory effort Heart: regular rate and rhythm Abdomen: soft, non-distended : Deferred Extremities: No edema, moves all four extremities Neuro: awake, alert Imaging: RB US (09/03/2020) Normal renal size. No evidence of nephrolithiasis, hydronephrosis, or solid renal mass. UDS (08/27/2020) Noninvasive Uroflow: Comments: not performed, 200 ml in bladder on arrival after voiding ?? Cystometrogram: First Sensation: 56 ml Capacity: 600 ml Compliance: normal Instability: no Urge incontinence: no Stress incontinence: no at 382 ml VLPP: n/a DLPP: n/a EMG: normal Comments: ?? Pressure Flow Study: Qmax: Pt unable to void Qave: same Pdet at Qmax: not able to void, but generated low bladder pressures to 30 cm H2O Voiding time: n/a EMG: increased activity, but associated with abdominal straining (rather than pure sphincter activity) Residual: 600 ML Comments: ?? Findings: impaired contractility and poor emptying, + hypersensitivity Assessment Meredith Frost is a 40 year old female with impaired contractility and hypersensitivity in the settingof MS Recommendations - Repeat discussion regarding options for treatment, mainly medications (myrbetriq, anticholinergics) given her previous response. Readdressed that these medications could cause relaxation to the bladder to the point of urinary retention and needing to catheterize. She reports understanding this risk. - Restart myrbetriq 50mg qd - RTC in 2-3 months for evaluation of symptoms - Instructed to call should she develop retention - Will hold off on repeat US Tate Gant MD 08/26/2021 9:05 AM Associated attestation - Cheng Cotter MD - 08/26/2021 10:30 AM CDT Pt seen/examined. Agree with resident documentation. Pt's urinary sx are stable. Recent cr unremarkable. Pt is interested in starting myrbetriq again (has been off for some time but felt it did help). Reviewed risks of myrbetriq again with her - will start it again at 50 mg daily. She does need to follow up in 2 months for pvr to ensure she is not retaining to a point that would be a problem. Pt v oiced understanding and agrees with plan. Cheng Cotter MD documented in this encounter Procedure Notes * Dimple Ariza MA - 08/26/2021 9:25 AM CDTAssociated Order(s): PROC BLADDER SCAN Procedure(s): SC MSR PVR U&/BLADD CAPCTY US NON Pre-Procedure Diagnose(s): Urinary urgency Bladder scan completed. 183Bladder scan completed. documented in this encounter Plan of Treatment Upcoming Encounters Date Type Department Care Team (Late st Contact Info) Description 04/04/2024 8:30 AM SCREW MACHINE TENDER Office Visit [facility] - Dermatology [address] [place] [address], [place] [phone] Marlys Zaragoza MD [address] [place] [address] 3 [place] [phone] 09/03/2024 9:00 AM CDT Office Visit [facility] Neurology [address] [facility], [place] [phone] Melissa Crook APRN-NAIF [address] [place] [phone] documented as of this encounter Procedures Procedure Name Priority Date/Time Associated Diagnosis Comments SC MSR PVR U&/BLADD CAPCTY US NON Routine 08/26/2021 9:25 AM CDT Urinary urgency documented in this encounter Results * SC MSR PVR U&/BLADD CAPCTY US NON (08/26/2021 9:25 AM CDT) Narrative Dimple Ariza MA - 08/26/2021 9:25 AM CDT Dimple Ariza MA ? 08/26/2021 ??9:26 AM Bladder scan completed. 183Bladder scan completed. Cheng Cotter MD PROCEDURE/MINOR WHYTE RGICAL ORDERABLES documented in this encounter Visit Diagnoses Diagnosis Urinary urgency- Primary Urgency of urination Neurogenic bladder Neurogenic bladder, NOS MS (multiple sclerosis) (HCC) Multiple sclerosis documented in this encounter Care Teams Knitting Machine Operator Relationship Specialty Start Date End Date Lauren Saba APRN-HAND LAUNDERER [address] [place] [phone] PCP - General 01/14/18 05/10/23 documented as of this encounter
--- OUTSIDE RECORDS SUMMARY | 2024-03-22 16:37 | XMS_ITS | Encounter Summary ---
Author Organization [facility] Health Address [address] [facility] [address] [place] [address] Care Team Providers Care Commercial Reporter Name Role Phone Lauren Saba Primary Care Provider Reason for Visit * Reason Onset Date Comments Medication Clarification 05/10/2021 Encounter Details Date Type Department Care Team (Late st Contact Info) Description 05/10/2021 Telephone [facility] [address] [facility], [place] [address] Alesia Vazquez APRN-CNP [address] [place] [address] [place] [address] Medication Clarification Social History Tobacco [...] encounter Miscellaneous Notes * Telephone Encounter - Lay Avitiaha - 05/10/2021 2:24 PM CST PT CALLING TO CLARIFY VIMPAT DOSAGE. PLEASE ADVISE. Kristan Avitia ER PEELER documented in this encounter Plan of Treatment Upcoming Encounters Date Type Department Care Team (Late st Contact Info) Description 04/04/2024 8:30 AM BARKER PEELER Office Visit [facility] - Dermatology [address] [place] [address], [place] [phone] Marlys Zaragoza MD [address] [place] [address] 3 [place] [phone] 09/03/2024 9:00 AM CDT Office Visit [facility] - Neurology [address] [place] [address], [place] [phone] Melissa Crook APRN-RESEARCH MANAGEMENT ASSOCIATE [address] [place] [phone] documented as of this encounter Visit Diagnoses Not on filedocumented in this encounter Care Teams Commercial Reporter Relationship Specialty Start Date End Date Lauren Saba APRN-RESEARCH MANAGEMENT ASSOCIATE [address] [place] [phone] PCP - General 01/14/18 05/10/23 documented as of this encounter
--- OUTSIDE RECORDS SUMMARY | 2024-03-22 16:37 | XMS_ITS | Encounter Summary ---
Author Organization [facility] Health Address [address] [place] [address] Care Team Providers Care Machinist Class B Name Role Phone Lauren Saba Jose Eduardo KNOX-MANAGER CARE MANAGEMENT Primary Care Provider Encounter Details Date Type Department Care Team (Latest Contact Info) Description 08/04/2021 Travel Social History Tobacco Use Types Packs/Day [...] st Contact Info) Description 04/04/2024 8:30 AM LIAISON ENGINEER Office Visit [facility] - Dermatology [address] [place] [phone] Marlys Zaragoza MD [address] [place] [address] 3 [place] [phone] 09/03/2024 9:00 AM CDT Office Visit [facility] Neurology [address] [place] [phone] Melissa Crook APRN-CNP [address] [place] [phone] documented as of this encounter Visit Diagnoses Not on filedocumented in this encounter Care Teams Machinist Class B Relationship Specialty Start Date End Date Lauren Saba APRN-MANAGER CARE MANAGEMENT [address] [place] [phone] PCP - General 01/14/18 05/10/23 documented as of this encounter
--- OUTSIDE RECORDS SUMMARY | 2024-03-22 16:37 | XMS_ITS | Encounter Summary ---
Author Organization [facility] Health Address [address] [place] [address] Care Team Providers Care Rope Silica Machine Operator Name Role Phone Lauren Saba Jose Eduardo KNOX-FIELD SERVICES MANAGER Primary Care Provider Reason for Visit * Reason Comments Botox Encounter Details Date Type Department Care Team (Latest Contact Info) Description 05/05/2022 12:30 PM HAND PATTERN MARKER Procedure visit [facility] [address] [place] [address], [place] [address] Mckayla Haywood MD [address] [place] [address] [place] [address] Intractable chronic 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 without status migrainosus ; Seizures (HCC) Social History Tobacco Use Types [...] Date Recorded PHQ2 TOTAL SCORE 0 03/02/2022 Education Answer Date Recorded What is the [...] Sign Reading Time Taken Comments Blood Pressure 117/69 05/05/2022 12:02 PM HAND PATTERN MARKER Pulse 96 05/05/2022 12:02 PM HAND PATTERN MARKER Temperature 36.7 ??C (98 ??F) 05/05/2022 12:02 PM HAND PATTERN MARKER Respiratory Rate - - Oxygen Saturation 97% 05/05/2022 12:02 PM HAND PATTERN MARKER Inhaled Oxygen Concentration - - Weight 64 kg (141 lb) 05/05/2022 12:02 PM HAND PATTERN MARKER Height 165.1 cm (5' 5 ) 05/05/2022 12:02 PM HAND PATTERN MARKER Body Mass Index 23.46 05/05/2022 12:02 PM HAND PATTERN MARKER documented in this encounter Functional Status Functional [...] this encounter Patient Instructions * Patient Instructions* Markus Cabral MD - 05/05/2022 12:52 PM HAND PATTERN MARKER Instructions from Dr. Nieto Continue Zonisamide 500 mg daily Vimpat 200 mg twice daily New medication added: Keppra 500 mg twice daily Keep MRI appointment . Will have you see by Epilepsy Doctors. PATTERN MARKER documented in this encounter Progress Notes * Mckayla Haywood MD - 05/05/2022 12:30 PM CST The patient has a long history of chronic migraine, which has been unresponsive to multiple medications. The patient has nausea and light sensitivity with headaches. Here for botox for chronic migraine. The patient has had significant benefit from Botox with a greater than 50% reduction in headache frequency and severity. She is also seen in MS clinic She recently had a seizure and was seen in [facility]. Her seizures are managed by her MS provider. I've informed him that the patient recently had a seizure. She has been seen in the Epilepsyclinic previously. Current Outpatient Medications Medication Sig Dispense Refill [...] fluticasone propionate (FLONASE) 50 MCG/ACT nasal spray [place] 2 (two) sprays into each nostril once daily 1 Each 0 ??? folic acid (Folvite) 1 MG tablet Take 1 (one) tablet by mouth once daily 30 tablet 0 ??? ibuprofen (Motrin) 800 MG tablet Take 1 (one) tablet by mouth every 6 hours as needed for Pain 30 tablet 3 ??? mirabegron ER 24hr (MYRBETRIQ) 50 MG [...] entire face at night. 30 days supply. (Patient not taking: Reported on 01/12/2022) 20 g 11 ??? Ventolin HFA 108 (90 Base) MCG/ACT inhaler Inhale 2 (two) puffs by mouth every 4 hours as needed ??? Vimpat 200 MG tablet TAKE 1 TABLET BY MOUTH TWICE DAILY 180 tablet 1 ??? zonisamide (ZONEGRAN) 100 MG capsule Take 5 (five) capsules by mouth at bedtime Reasons: Focal Epilepsy 450 capsule 3 BP 117/69 Pulse 96 Temp 98 ??F (36.7 ??C) Ht 1.651 m (5' 5 ) Wt 64 kg (141 lb) SpO2 97% Awake, alert, No facial asymmetry Motor: Moves all extremities symmetrically bruse on left arm from hitting her nightstand during seizure. Diagnosis: Chronic migraine without aura,intractable, Without status migrainosus MS Seizure Administer Botox for chronic migraine today. See procedure note for details. Seizure and MS being treated by other provider. The patient has not been seen in the epilepsy clinic for some time. We will work on reestablishing care with the epilepsy clinic for seizure management. We did discuss seizure precautions including no driving. PATTERN MARKER documented in this encounter Procedure Notes * Mckayla Haywood MD - 05/05/2022 12:43 PM CSTAssociated Order(s): PROC INJECTION - BOTOX Procedure(s): MA CHEMODENERV MUSC MIGRAINE Pre-Procedure Diagnose(s): Intractable chronic 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 without status migrainosus Post-Procedure Diagnose(s): Intractable chronic 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 without status migrainosus Botox Procedure Note ?? Patient's identity confirmed by having patient say first and last name, and date of . ?? Diagnosis: Chronic migraine ?? Procedure code: 90721 ?? History: ?? Baseline number of headaches per month:30 Current headaches per month:3-4 ?? Number of headache hours per day (baseline): 12 Number of headache hour per day (current): couple of hours ?? Associated symptoms (baseline): Moderate to severe pain, nausea, vomiting, photophobia, phonophobia. ?? Associated symptoms (current): Moderate pain, nausea, photophobia, phonophobia. ?? The patient has had significant benefit from Botox with a greater than 50% reduction in headache frequency and severity. ?? Current migraine prophylactic medications:none Current migraine abortive treatments: none ? Date of last injection: 01/18/2022 ?? Duration of benefit: 2-3 months ?? [...] ?? Ordered 200 units for next visit. PATTERN MARKER documented in this encounter Plan of Treatment Upcoming Encounters Date Type Department Care Team (Late st Contact Info) Description 04/04/2024 8:30 AM HAND PATTERN MARKER Office Visit [facility] - Dermatology [address] [place] [address], [place] [phone] Marlys Zaragoza MD [address] [place] [address] [address] [place] [phone] 09/03/2024 9:00 AM CDT Office Visit [facility] - Neurology [address] [place] [phone] Melissa Crook, HAND PASTER-FIELD SERVICES MANAGER [address] [place] [phone] documented as of this encounter Procedures Procedure Name Priority Date/Time Associated Diagnosis Comments MA CHEMODENERV MUSC MIGRAINE Routine 05/05/2022 12:43 PM HAND PATTERN MARKER Intractable chronic 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 without status migrainosus documented in this encounter Results * MA CHEMODENERV MUSC MIGRAINE (05/05/2022 12:43 PM HAND PATTERN MARKER) Narrative Mckayla Haywood MD - 05/05/2022 12:43 PM HAND PATTERN MARKER Mckayla Haywood MD ? 05/05/2022 ??1:13 PM Botox Procedure Note ?? Patient's identity confirmed by having patient say first and last name, and date of . ?? Diagnosis: Chronic migraine ?? Procedure code: 21036 ?? History: ?? Baseline number of headaches [...] so stated, without mention of status migrainosus Seizures (HCC) Other convulsions documented in this encounter Administered Medications Inactive Administered Medications - up to 3 most recent administrations Medication Order MAR Action Action Date Dose Rate Site onabotulinumtoxin A (Botox) injection 200 Units 200 Units, Intramuscular, ONCE, 1 dose, On Sun05/05/22 at 1230 $ Given 05/05/2022 12:45 PM HAND PATTERN MARKER 200 Units Head documented in this encounter Care Teams Rope Silica Machine Operator Relationship Specialty Start Date End Date Lauren Saba APRN-FIELD SERVICES MANAGER [address] [place] [phone] PCP - General 01/14/18 05/10/23 documented as of this encounter
--- OUTSIDE RECORDS SUMMARY | 2024-03-22 16:37 | XMS_ITS | Encounter Summary ---
Author Organization [facility] Health Address [address] [address] Care Team Providers Care Unishear Operator Name Role Phone Lauren Saba Jose Eduardo KNOX-NEEDLE VALVE OPERATOR Primary Care Provider Encounter Details Date Type Department Care Team (Latest Contact Info) Description 06/29/2021 Travel Social History Tobacco Use Types Packs/Day [...] PHQ-2 Answer Date Recorded PHQ2 TOTAL SCORE 2 05/27/2021 Education Answer Date Recorded What is the [...] suspected to have Coronavirus/COVID-19? No / Unsure 06/29/2021 1:50 PM CDT documented as of this encounter [...] st Contact Info) Description 04/04/2024 8:30 AM LIBRARIAN Office Visit [facility] - Dermatology [address] [place] [address], [place] [phone] Marlys Zaragoza MD [address] [place] [address] [place] [phone] 09/03/2024 9:00 AM CDT Office Visit [facility] - Neurology [address] [place] [phone] Melissa Crook APRN-NEEDLE VALVE OPERATOR [address] [place] [phone] documented as of this encounter Visit Diagnoses Not on filedocumented in this encounter Care Teams Unishear Operator Relationship Specialty Start Date End Date Lauren Saba APRN-NEEDLE VALVE OPERATOR [address] [place] [phone] PCP - General 01/14/18 05/10/23 documented as of this encounter
--- OUTSIDE RECORDS SUMMARY | 2024-03-22 16:37 | XMS_ITS | Encounter Summary ---
Author Organization [facility] Health Address [address] [place] [address] Care Team Providers Care Carbon Sequestration Plant Operator Name Role Phone [place], Lauren Jose Eduardo KNOX-MANAGER HOSPITALITY Primary Care Provider Reason for Visit * Reason Comments Establish Care * Consult, Test & Treat (Routine) - Closed Specialty Diagnoses / Procedures Referred By Contdanny t Referred To Contact Infectious Disease Diagnoses Urogenital trichomoniasis, unspecified Radha Mathis, PACKING SHED SUPERVISOR-MANAGER HOSPITALITY [address] [place] [address] Referral ID Status Reason Start Date Expiration Date Visits Re quested Visits Authorized [id number] Closed 10/26/2021 10/26/2022 1 1 Encounter Details Date Type Department Care Team (Latest Contact Info) Description 12/22/2021 10:30 AM CDT Office Visit [facility] [address], [place] [address] Enoch Porter MD [address] [facility] [place] [address] Trichomoniasis of vagina (Primary Dx); Screening for STD (sexually transmitted disease); Vaginal candidiasis; Health education/counseling; History of poor personal hygiene Social History Tobacco Use Types Packs/Day Years [...] Answer Date Recorded PHQ2 TOTAL SCORE 0 12/22/2021 Education Answer Date Recorded What is the [...] Sign Reading Time Taken Comments Blood Pressure 126/82 12/22/2021 10:18 AM CDT Pulse 93 12/22/2021 10:18 AM CDT Temperature 36.3 ??C (97.3 ??F) 12/22/2021 10:18 AM C DT Respiratory Rate 18 12/22/2021 10:18 AM CDT Oxygen Saturation 98% 12/22/2021 10:18 AM CDT Inhaled Oxygen Concentration - - Weight 70.8 kg (156 lb) 12/22/2021 10:18 AM CDT Height 165.1 cm (5' 5 ) 12/22/2021 10:18 AM CDT Body Mass Index 25.96 12/22/2021 10:18 AM CDT documented in this encounter Functional [...] this encounter Patient Instructions * Patient Instructions* Enoch Porter MD - 12/22/2021 11:03 AM CDT Thank you for coming to see us today! We appreciate your choosing us for your care. Please take your prescribed metronidazole and fluconazole for 7 days for your vaginal infection. Please let us know if you have any additional questions/concerns in the meantime. The best way to reach us at the [facility] is through ObserveIT or by calling us at [phone] and press 2 or 3 for a person or a voicemail that is checked multiple times daily. documented in this encounter Progress Notes * Roosevelt Guthrie - 12/22/2021 11:30 AM CDT Patient received blood draw in right arm bandage applied tolerated well. * Enoch Porter MD - 12/22/2021 10:30 AM CDT [facility] Outpatient Infectious Diseases Consultation Patient Name: Meredith Frost 1980 Primary Care Physician: Lauren Saba APRN-MANAGER HOSPITALITY Reason for Infectious Disease Consultation Possible refractory trichomoniasis History of Present Illness HPI: Meredith Frost is a 41 year old female with a past medical history significant for mildneurocognitive disorder with behavioral disturbance, major depressive disorder, multiple sclerosis,migraine, seizure disorder. She presents to the IC clinic for refractory trichomoniasis. She was referred by her FORM LAYER. As per chart review, she has been having positive trichomonas testing for appro ximately one year. As per pharmacy dispense reports she has been treated frequently with multiple courses of metronidazole, one course of tinidazole and also fluconazole for yeast infection. Patient is a poor historian likely due to some neurocognitive disorder. She reports that she has been havingvaginal discharge for approximately a year, she has been treated for it by FORM LAYER but unsure of medications or if it was taken adequately. She has never had a period where there was some improvement of symptoms. She states that she has persistent clear vaginal discharge, some cottage cheese like discharge as well. She also reports mild itching and redness. She denies fever, chills, diaphoresis, dy suria. She takes a showed 3 times a week, she denies using vaginal washes, uses cotton underwear. She has not had vaginal intercourse in over a year as her partner is incarcerated. She does have sex toys but has not used them since her trichomoniasis. Medical History Past Medical History: Diagnosis Date ??? Asthma ??? Migraines ??? MS (multiple sclerosis) (CMS/HCC) ??? Seizures (CMS/HCC) Surgical History Past Surgical History: Procedure Laterality Date ??? KNEE ARTHROPLASTY Right ??? [place] CHEMODENERV MUSC MIGRAINE 07/18/2017 ??? AK CHEMODENERV MUSC MIGRAINE 10/17/2017 ??? [place] CHEMODENERV MUSC MIGRAINE 01/14/2018 ??? AK CHEMODENERV MUSC MIGRAINE 04/15/2018 ??? AK CHEMODENERV MUSC MIGRAINE 07/22/2018 ??? AK CHEMODENERV MUSC MIGRAINE 10/21/2018 ??? AK CHEMODENERV MUSC MIGRAINE 10/13/2019 ??? AK CHEMODENERV MUSC MIGRAINE 01/12/2020 ??? AK CHEMODENERV MUSC MIGRAINE 04/19/2020 ??? AK CHEMODENERV MUSC MIGRAINE 07/21/2020 ??? AK CHEMODENERV MUSC MIGRAINE 11/01/2020 ??? AK CHEMODENERV MUSC MIGRAINE 02/14/2021 ??? AK CHEMODENERV MUSC MIGRAINE 07/13/2021 ??? AK CHEMODENERV MUSC MIGRAINE 10/21/2021 ??? Tonsillectomy Bilateral Social History Smoking: denies history Alcohol: sporadically Illicit drugs/IV drug use: marijuana Children: one child Occupation: disabled Sexually active: not currently Sexual Orientation: heterosexual HIV status: tested in 2017 Hepatitis Status: tested in 2017 Immunizations: Immunization History Administered Date(s) Administered ??? FLU VACCINE QUAD CCIIV4 PF IM 06/09/2019 ??? FLU VACCINE QUAD IIV4 SPLIT 0.25 ML IM 01/05/2020 ??? FLU VACCINE QUAD IIV4 SPLIT PF IM 12/10/2018, 11/14/2019, 12/02/2020, 12/15/2021 ??? PFIZER SARS-COV-2 COVID-19 VACCINE 0.3ML 04/30/2020, 05/27/2020 ??? PNEUMOCOCCAL PPSV23 08/18/2016 Family History Family History Problem Relation Name Age of [...] Hemophilia Neg Hx ??? Psoriasis Neg Hx Review of Systems Review of Systems Constitutional: Negative for chills, diaphoresis, fever and malaise/fatigue. HENT: Negative for sore throat. Eyes: Negative for blurred vision. Respiratory: Negative for cough and shortness of breath. Cardiovascular: Negative for chest pain and leg swelling. Gastrointestinal: Negative for abdominal pain. Genitourinary: Negative for dysuria. Vaginal discharge Musculoskeletal: Negative for back pain. Skin: Positive for itching. Negative for rash. Neurological: Negative for headaches. Allergies No Known Allergies Home Medications Prior to Admission medications Medication Sig Start Date End Date Taking? Authorizing Provider ERINN MAINTENA 300 MG injection Inject 300 (three hundred) mg into muscle every 28 days ; last received on 05/18/2021. Next due 06/15/2021. Reasons: Unspecified Psychosis. Behavioral Disturbances in Dementia 07/21/21 Venkata Glez MD baclofen (LIORESAL) 10 MG tablet Take 1 (one) tablet by mouth 2 times daily May cause drowsiness. Reasons: Muscle Spasticity 05/25/21 Julián Brock MD docusate sodium (COLACE) 100 MG capsule Take 100 mg by mouth every 12 hours 06/21/21 ProviderKimi MD escitalopram (LEXAPRO) 10 MG tablet Take 1 (one) tablet by mouth once daily Reasons: Major Depressive Disorder 10/12/21 Enoch Mobley DO escitalopram (LEXAPRO) 20 MG tablet Take 1 (one) tablet by mouth once daily 10/12/21 Adriana Mobley DO fluticasone propionate (FLONASE) 50 MCG/ACT nasal spray Horton 2 (two) sprays into each nostril oncedaily 05/25/21 Julián Brock MD folic acid (FOLVITE) 1 MG tablet Take 1 (one) tablet by mouth once daily 06/24/21 Venkata Glez MD ibuprofen (MOTRIN) 800 MG tablet Take 1 (one) tablet by mouth every 6 hours as needed for Pain 10/03/21 Markus Cabral MD lacosamide (VIMPAT) 200 MG tablet Take 1 (one) tablet by mouth 2 times daily 06/29/21 Markus Cabral MD mirabegron ER 24hr (MYRBETRIQ) 50 MG tablet Take 1 (one) tablet by mouth once daily 08/26/21 Tate Gant MD multivitamin daily tablet Take 1 (one) tablet by mouth once daily 05/26/21 Julián Brock MD onabotulinumtoxin A (BOTOX) 100 units injection Inject 200 (two hundred) Units into muscle Every 90days Reasons: Migraine Headache 10/21/21 Mckayla Haywood MD SYMBICORT 160-4.5 MCG/ACT inhaler Inhale 2 puffs by mouth 2 times daily 06/24/21 Kimi Huang MD thiamine (VITAMIN B-1) 100 MG tablet Take 1 (one) tablet by mouth once daily 06/24/21 Venkata Glez MD tretinoin (RETIN-A) 0.05 % cream Pea sized amount to entire face at night. 30 days supply. 10/06/21 Marlys Zaragoza MD zonisamide (ZONEGRAN) 100 MG capsule Take 5 (five) capsules by mouth at bedtime Reasons: Focal Epilepsy 06/29/21 Markus Cabral MD Objective Vitals BP 126/82 (BP SITE: LEFT ARM, BP POSITION: SITTING, BP CUFF SIZE: 11) Pulse 93 Temp 97.3 ??F (36.3 ??C) (Temporal) Resp 18 Ht 5' 5 (1.651 m) Wt 156 lb (70.8 kg) SpO2 98% Physical Exam Physical Exam Vitals reviewed. Constitutional: General: She is not in acute distress. Appearance: Normal appearance. She is normal weight. She is not ill-appearing, toxic-appearing or diaphoretic. HENT: Head: Normocephalic and atraumatic. Cardiovascular: Rate and Rhythm: Normal rate and regular rhythm. Pulses: Normal pulses. Heart sounds: Normal heart sounds. No murmur heard. No friction rub. No gallop. Pulmonary: Effort: Pulmonary effort is normal. No respiratory distress. Breath sounds: Normal breath sounds. No wheezing, rhonchi or rales. Abdominal: General: Abdomen is flat. Bowel sounds are normal. There is no distension. Palpations: Abdomen is soft. Tenderness: There is no abdominal tenderness. Musculoskeletal: Right lower leg: No edema. Left lower leg: No edema. Neurological: Mental Status: She is alert. Lab Review CBC: Recent Labs Component Name 06/29/21 1410 05/13/21 1509 04/08/21 1552 10/10/17 1218 03/09/17 1445 11/28/16 1333 07/11/16 1755 06/14/16 1134 WBC 17.8* 12.3* 14.7* - 11.3* 11.9* - 9.4 RBC 4.79 4.92 5.07 - 5.37* 4.82 - 4.76 HGB 11.7* 11.8* 11.7* - 12.6 11.5* - 13.4 HCT 37.6 38.6 38.4 - 41.2 36.7 - 40.8 MCV 78.5* 78.5* 75.7* - 76.7* 76.1* - 85.8 PLT - - - - 523* 477* - 377 - = values in this interval not displayed. BMP: Recent Labs Component Name 06/29/21 1410 05/13/21 1509 04/08/21 1552 10/10/17 1218 03/09/17 1445 11/28/16 1333 07/11/16 1755 06/14/16 1134 NA 141 140 143 - 139 139 139 139 - 139 K - - - - 3.8 3.8 3.8 3.9 - 4.2 CL 107 108* 108* - 104 104 104 105 - 110 CO2 24 21* 23 - 26 26 26 26 - 20 BUN 20 17 9 - 21 21 21 - * CREATININE 0.66 0.72 0.67 - 0.80 0.80 0.80 0.78 - 0.63 GLU - - - - 86 86 86 76 - 90 ALB 3.8 3.8 3.9 - 4.2 4.2 4.2 4.0 - 4.3 PROT 6.7 6.8 6.8 - 7.0 7.0 7.0 6.2 - 6.9 - = values in this interval not displayed. LFTs: Recent Labs Component Name 06/29/21 1410 05/13/21 1509 04/08/21 1552 09/01/19 1128 05/14/19 0950 11/06/18 1004 05/22/18 1040 05/08/18 0906 ALKPHOS 88 102 107 - 58 46 - 51 ALT 11 11 14 - 10 9 - 14 AST 11 10 10 - 13 10 - 13 ALBUMIN - - - - 4.3 4.1 - 4.6 - = values in this interval not displayed. Coagulation: Recent Labs Component Name 08/18/16 0549 08/16/16 0454 08/14/16 0433 08/14/16 0431 08/12/16 0853 08/12/16 0413 PT 13.2 13.2 - 15.8* - - INR 1.0 1.0 - 1.3 - - PTT - - 45.1* - - 28.0 - = values in this interval not displayed. Microbiology, Imaging and other diagnostic tests MICROBIOLOGY: Trichomonas vaginalis by TRUDI: 12/23/2020 negative 02/02/2021 positive 02/25/2021 positive 06/02/2021 positive 07/07/2021 positive 08/12/2020 positive 10/03/2021 positive 11/04/2021 positive Assessment and Recommendations Vaginal trichomoniasis recurrent Patient has been having this for approximately one year Multiple treatment courses Unclear if adequately treated Less likely re-infection as she has not been sexually active Less likely resistant trichomonas Will treat with high dose metronidazole for 7 days Vaginal candidiasis Symptoms are most likely due to this rather than trichomoniasis Examined by Dr. Calero, findings suggestive of yeast infection No evident immunosuppression, will check for HIV and diabetes Will treat with fluconazole for 7 days Plan/Recommendations Metronidazole 2 g oral b.i.d. for 7 days Fluconazole 200 mg oral daily for 7 days Check HIV, HCV, hemoglobin A1c Follow up p.r.n. with ID Follow up with PCP and FORM LAYER Patient seen, examined, and case/plan were discussed with my attending physician, Dr. Abdias Porter MD Infectious Diseases Fellow, PGY-4 [facility] [address] [place] [address] Clinic phone [phone] Clinic fax [phone] * Daily Calero MD - 12/22/2021 10:10 AM CDT OUTPATIENT ID CLINIC ATTENDING NOTE I discussed this patient with the fellow and I agree with the findings and plan of care as documented by the fellow. Additionally, I interviewed and examined the patient myself and reviewed labwork, relevant imaging, and relevant history. Please see fellow note for full details. Briefly: Ms. Frost is a 41 yo female with PMH significant for MS, chronic migraines, seizure disorder, COPD/asthma, schizophrenia, mood disorder, polysubstance abuse who presents for evaluation of recurrent trichomonas infection. She did not come with a caregiver, and she is not a good historian, does not know her meds or medical history well. Her last positive test in our system is 01/2021, positive for Trichomonas vaginalis; negative for GC/CT. Prior to that she was tested and negative for GC/CT/trich in 2015 and 2016. HIV tested in 02/2017 and negative. Syphilis tested in 02/2017 and negative. However, review of care everywhere shows she was positive for Trichomonas vaginalis 10/2021, 07/2021, 06/2021, 05/2021, 02/2021, 01/2021. Negative in 12/2020. Positive in 11/2020, 10/2020. She is not a good historian. It is not clear she has sx when these tests are done; she reports whitish leakage, no itching or odor or redness, sometimes, including now. We obtained collateral information from pharmacy: she has been on fluconazole (for yeast infection presumably), metronidazole (500mg TID x 5 days, multiple courses), tinidazole x 1 course. She is not sexually active, she reports her partner is incarcerated so she has not had sex in over a year, and she denies anal sex. She doeshave a sex toy, states she is not using it and has not in about a year. Denies use of vaginal washes or douches. Cotton underwear; no synthetic materials. She is not really able to tell us whether she took her medications correctly and for the ensure course when it was prescribed. On exam, I noted Gen: Pleasant, appears well, NC/AT. female; poor historian. CV: RRR, S1 and S2 heard and normal, no murmurs, gallops, rubs. Pulm: CTAB, no wheezes, rhonchi or rales. Good effort and air entry. Abd: Soft, nontender, nondistended. No HSM appreciated. Ext: Warm and well perfused without edema or cyanosis noted. Neuro: Grossly normal CN exam. Skin: No lesions or rashes observed. : I did an external exam; her labia is very red and inflamed, and there is copious cottage-cheeselike discharge visible. Her hygiene is not excellent. Her underwear is old and worn, with dischargecrusting visible. Labs reviewed and discussed with patient. Assessment and plan reviewed with fellow. I confirm the differential diagnosis and plan to be: Recurrent Trichomonas vaginalis infection Current severe vulvovaginal candidiasis -The most likely cause of recurrent or refractory disease is incomplete treatment; this patient is a poor historian, and it is very difficult to determine if she actually took her treatments correctly. I would strongly advise a longer and higher dose treatment, with excellent adherence, and then assess. -Truly resistance or refractory disease is really rare, and requires workup and management through [facility] labs. I do not think this is currently justified in this patient with high suspicion for incomplete treatment. -She is not sexually active as her partner is incarcerated; therefore untreated partner is unlikelyto be causing this issue. -We discussed our recommendation to treat with metronidazole 2g daily x 7 days. Advised on side effects and essential importance of avoiding alcohol and completing therapy. -I would also treat her severe yeast infection with a longer and higher dose fluconazole course: 200 mg daily x 7 days. -She was advised on vaginal hygiene and care as well as personal hygiene. Advised on importance of treating partners. -Will screen for Hep C and HIV in accordance with CDC guidelines. -Will screen for DM given her very severe yeast infection today. -After this treatment is complete, she should follow up with gyne/PCP. She can be referred back to us with concern for recurrent or resistant disease. RTC prn I spent over 60 min in the care of this patient, and over 50% of that time was spent in counseling and coordination of care. Please see fellow note for full details. Daily Calero MD, MPH Infectious Disease Attending documented in this encounter Plan of Treatment Upcoming Encounters Date Type Department Care Team (Late st Contact Info) Description 04/04/2024 8:30 AM RELOCATION MANAGER Office Visit [facility] - Dermatology [address] [place] [address], [place] [phone] Marlys Zaragoza MD [address] [place] [address] [address] [place] [id number] 09/03/2024 9:00 AM CDT Office Visit [facility] - Neurology [address] [place] [phone] Melissa Crook APRN-MANAGER HOSPITALITY [address] [place] [id number] documented as of this encounter Procedures Procedure Name Priority Date/Time Associated Diagnosis Comments HEPATITIS C AB W/RFLX TO HCV RNA QN PCR Routine 01/16/2022 2:00 PM CDT Trichomoniasis of vagina Screening for STD (sexually transmitted disease) HIV-1 HIV-2 ANTIBODY + HIV P24 AG PANEL Routine 01/16/2022 2:00 PM CDT Trichomoniasis of vagina Screening for STD (sexually transmitted disease) HEMOGLOBIN A1C Routine 12/22/2021 10:59 AM CDT Vaginal candidiasis documented in this encounter Results * HEPATITIS C AB W/RFLX TO HCV RNA QN PCR (01/16/2022 2:00 PM CDT) Hepatitis C Antibody NON-REACTI VE NON-REACT PAM [facility] Signal to Cut-Off 0.02 <1.00 [facility] Comment: HCV antibody was non-reactive. There is no laboratory evidence of HCV infection. In most cases, no further action is required. However, if recent HCV exposure is suspected, a test for HCV RNA (test code 80904) is suggested. For additional information please refer to http://education.ZMP/faq/OUP05c1 (This link is being provided for informational/ educational purposes only.) Test Performed at: [employer] [facility] [address] [place], [place] ??[phone] BETTE ALVARES DO,MPH Blood BLOOD SPECIMEN / Unknown 12/23/2021 10:02 AM CDT Daily Calero MD LAB - CHEMISTRY [facility] [address] [place] [address] * HIV-1 HIV-2 ANTIBODY + HIV P24 [...] ?? For additional information please refer to http://education.ZMP/faq/WQB856 (This link is being provided for informational/ educational purposes only.) The performance of this assay has not been clinically validated in patients less than 2 years old. Test Performed at: [facility] [address] [place], [place] ??[phone] BETTE ALVARES DO,MPH Blood BLOOD SPECIMEN / Unknown 12/23/2021 10:02 AM CDT Daily Calero MD LAB - CHEMISTRY [facility] Performing Organization Address City/State/[facility] Co la Phone Number [employer] [address] [place] [address] * HEMOGLOBIN A1C (12/22/2021 10:59 AM CDT) Hemoglobin A1c 5.1 <5.7 % of total [...] diagnosis of diabetes in children. According to [place] [employer] Association (ADA) guidelines, hemoglobin A1c <7.0% represents optimal control in non- diabetic patients. Different metrics may apply to specific patient populations. Standards of Medical Care in Diabetes(ADA). ?? NO COLLECTION DATE RECEIVED. WE HAVE USED THE DATE THE SPECIMEN WAS RECEIVED BY THIS LABORATORY THE COLLECTION DATE. IF THIS IS INCORRECT, PLEASE CONTACT CLIENT SERVICES. PHONE NUMBER: [phone] Test Performed at: [facility] [address] [place], [place] ??[phone] BETTE ALVARES DO,MPH Blood BLOOD SPECIMEN / Unknown 12/22/2021 10:59 AM CDT 12/23/2021 10:02 AM CDT Daily Calero MD LAB - CHEMISTRY [facility] [address] [place] [address] documented in this encounter Visit Diagnoses Diagnosis Trichomoniasis of vagina- Primary Trichomonal vulvovaginitis Screening for STD (sexually transmitted disease) Screening examination for venereal disease Vaginal candidiasis Candidiasis of vulva and vagina Health education/counseling Counseling NOS History of poor personal hygiene documented in this encounter Care Teams Carbon Sequestration Plant Operator Relationship Specialty Start Date End Date Lauren Saba, PACKING SHED SUPERVISOR-MANAGER HOSPITALITY [address] [place] [phone] PCP - General 01/14/18 05/10/23 documented as of this encounter
--- OUTSIDE RECORDS SUMMARY | 2024-03-22 16:37 | XMS_ITS | Encounter Summary ---
Author Organization [facility] Health Address [address] [place] [address] Care Team Providers Care User Acceptance Tester Name Role Phone Lauren Saba Jose Eduardo KNOX-COMMUNICATIONS CONTROLLER Primary Care Provider Reason for Visit * Reason Comments STD TRICH Encounter Details Date Type Department Care Team (Latest Contact Info) Description 03/02/2022 9:00 AM LASER PRINTING OPERATOR Office Visit [facility] [address] [facility], [place] [phone] Enoch Porter MD [address] [facility] [place] [address] Trichomoniasis of vagina (Primary Dx); Vaginal candidiasis; History of poor personal hygiene; Health education/counseling Social History Tobacco Use Types Packs/Day Years [...] Sign Reading Time Taken Comments Blood Pressure 122/80 03/02/2022 10:13 AM LASER PRINTING OPERATOR Pulse 97 03/02/2022 10:13 AM LASER PRINTING OPERATOR Temperature 36.2 ??C (97.1 ??F) 03/02/2022 10:[address] Respiratory Rate 18 03/02/2022 10:13 AM LASER PRINTING OPERATOR Oxygen Saturation 99% 03/02/2022 10:13 AM LASER PRINTING OPERATOR Inhaled Oxygen Concentration - - Weight 63.3 kg (139 lb 8 oz) 03/02/2022 10:13 AM LASER PRINTING OPERATOR Height 165.1 cm (5' 5 ) 03/02/2022 10:13 AM LASER PRINTING OPERATOR Body Mass Index 23.21 03/02/2022 10:13 AM LASER PRINTING OPERATOR documented in this encounter Functional Status [...] * Patient Instructions* Enoch Porter MD - 03/02/2022 10:46 AM LASER PRINTING OPERATOR Thank you for coming to see us today! We appreciate your choosing us for your care. Please take your metronidazole and fluconazole as prescribed. Please follow up with your primary doctor and rehabilitation liaison Please let us know if you have any additional questions/concerns. The best way to reach us at the [facility] is through Best Bid or by calling us at [phone] and press 2 or 3 for a person or a voicemail that is checked multiple times daily. R PRINTING OPERATOR documented in this encounter Progress Notes * Daily Calero MD - 03/02/2022 10:34 AM CST OUTPATIENT ID CLINIC ATTENDING NOTE I discussed [...] the ensure course when it was prescribed. She is now returning to [place] for persistent vaginal discharge. On 01/10/22 she had another pap which showed trichomonas. She did not take the treatment we prescribed right away; it took time to get insurance authorization, and it is not clear what dates she took it. She reports her discharge is better but not resolved. She was hospitalized for seizures at [place], cannot see records, she reports she was treated with IV and PO abx for PID while there. She is not a reliable historian. Her hygiene remains problematic, though she did change out her sex toys and underwear. She reports she only showers every 3-4 days, and she washes herself with shampoo. She considers it a lot of work to shower daily and use soap. I provided her with hygiene advice as below. On exam, I noted Gen: Pleasant, appears [...] rare, and requires workup and management through CDC labs. I do not think this is currently justified in this patient with high suspicion for incomplete treatment, timing issues, and poor hygiene. -She is not sexually active as her [...] 200 mg daily x 7 days. -She did get this but the timeline is not clear in relation to her repeat positive testing for trichomonas (delayed access to meds due to insurance issue). -She also got treatment for PID, details somewhat unclear, initiated during inpatient admission. Nonew partners to prompt STI testing. -We would recommend treating again with the same doses as above; please do not test her without this treatment being completed correctly. After treatment is complete, test for consistent clinical syndrome only. -She was advised on vaginal hygiene and care as well as personal hygiene. I discussed with her in detail she should shower daily, use a gentle soap like Dove or similar to wash herself including the genital area, and change her underwear daily. She felt this is a lot of work but was agreeable to a ttempting to make changes. She should avoid douches. She should clean sex toys after each use according to cane loader instructions. -Advised on importance of treating partners. -Negative for Hep C and HIV in accordance with CDC guidelines. -Negative for DM, tested given her very severe yeast infection today--most Iikely due to very poor hygiene and self care. -After this treatment is complete, she should follow up with gyne/PCP. She can be referred back to us with concern for recurrent or resistant disease. RTC prn I spent over 30 min in the care of this patient, and over 50% of that time was spent in counseling and coordination of care. Please see fellow note for full details. Daily Calero MD, MPH Infectious Disease Attending R PRINTING OPERATOR * Enoch Porter MD - 03/02/2022 10:10 AM CST [facility] Outpatient Infectious Diseases Progress Note Patient Name: Meredith Frost 1980 Primary Care Physician: Lauren Saba, INSTANTIZER OPERATOR-COMMUNICATIONS CONTROLLER Reason for Infectious Disease Follow Up Recurrent trichomoniasis History of Present Illness HPI: Meredith Frost is a 41 year old female with a past medical history significant for mildneurocognitive disorder with behavioral disturbance, major depressive disorder, multiple sclerosis,migraine, seizure disorder. She was seen in our ID clinic in December 2021 for refractory trichomoniasis. At that time we discussed about the importance of hygiene and she had adopted some changes incl uding getting new underwear, getting rid of her sex toys. She states that she is still slacking on her personal hygiene, no clear reason for this, reports taking too much of her time. She denies new sex partners. Last time we prescribe her high dose metronidazole and fluconazole for 7 days, there was a delay in her getting this treatment due to insurance issues and got a repeat Pap smear later that same month and tested positive again for trichomonas. Of note, she was admitted to [facility] late last month with a seizure and while she was admitted she was diagnosed with PID and was given IV antibiotics while in the hospital and discharged on cefdinir, doxycycline, and metronidazole. Today she is still complaining of whitish vaginal discharge, more noticeable when she wakes up, improved since last time, denies lower abdominal pain, pruritus, vaginal erythema. Denies systemic symptoms. she has finished all her treatments by now. Medical History Past Medical History: Diagnosis Date ??? Asthma ??? Migraines ??? MS (multiple sclerosis) (CMS/HCC) ??? PID (pelvic inflammatory disease) ??? Seizures (CMS/HCC) Surgical History Past Surgical History: Procedure Laterality Date ??? KNEE ARTHROPLASTY Right ??? RI CHEMODENERV MUSC MIGRAINE 07/18/2017 ??? RI CHEMODENERV MUSC MIGRAINE 10/17/2017 ??? RI CHEMODENERV MUSC MIGRAINE 01/14/2018 ??? RI CHEMODENERV MUSC MIGRAINE 04/15/2018 ??? RI CHEMODENERV MUSC MIGRAINE 07/22/2018 ??? RI CHEMODENERV MUSC MIGRAINE 10/21/2018 ??? RI CHEMODENERV MUSC MIGRAINE 10/13/2019 ??? RI CHEMODENERV MUSC MIGRAINE 01/12/2020 ??? RI CHEMODENERV MUSC MIGRAINE 04/19/2020 ??? RI CHEMODENERV MUSC MIGRAINE 07/21/2020 ??? RI CHEMODENERV MUSC MIGRAINE 11/01/2020 ??? RI CHEMODENERV MUSC MIGRAINE 02/14/2021 ??? RI CHEMODENERV MUSC MIGRAINE 07/13/2021 ??? RI CHEMODENERV MUSC MIGRAINE 10/21/2021 ??? RI CHEMODENERV MUSC MIGRAINE 01/18/2022 ??? Tonsillectomy Bilateral Social History Smoking: denies history Alcohol: sporadically Illicit drugs/IV drug use: marijuana Children: one child Occupation: disabled Sexually active: not currently Sexual Orientation: heterosexual HIV status: tested in 2017 Hepatitis Status: tested in 2017 Immunizations: Immunization History Administered Date(s) Administered ??? Covid Pfizer primary monovalent 12+ yr 0.3mL Purple cap 04/30/2020, 05/27/2020 ??? FLU VACCINE QUAD CCIIV4 PF IM 06/09/2019 ??? FLU VACCINE QUAD IIV4 SPLIT 0.25 ML IM 01/05/2020 ??? FLU VACCINE QUAD IIV4 SPLIT PF IM 12/10/2018, 11/14/2019, 12/02/2020, 12/15/2021 ??? PNEUMOCOCCAL PPSV23 08/18/2016 Family History Family [...] discharge Musculoskeletal: Negative for back pain. Skin: Negative for itching and rash. Neurological: Negative for headaches. Allergies No Known Allergies Home Medications Prior to Admission medications Medication Sig Start Date End Date Taking? Authorizing Provider Marilynwilner Maintena 300 MG injection Inject 300 (three hundred) mg into muscle every 28 days ; last received on 05/18/2021. Next due 06/15/2021. Reasons: Unspecified Psychosis. Behavioral Disturbances in Dementia Patient not taking: Reported on 01/12/2022 01/11/22 Enoch Mobley DO baclofen (LIORESAL) 10 MG tablet Take 1 (one) tablet by mouth 2 times daily May cause drowsiness. Reasons: Muscle Spasticity 05/25/21 Julián Brock MD docusate sodium (COLACE) 100 MG capsule Take 100 mg by mouth every 12 hours 06/21/21 ProviderKimi MD escitalopram (Lexapro) 10 MG tablet Take 1 (one) tablet by mouth once daily Reasons: Major Depressive Disorder 01/11/22 Enoch Mobley DO escitalopram (Lexapro) 20 MG tablet Take 1 (one) tablet by mouth once daily 01/11/22 Enoch Mobley DO fluticasone propionate (FLONASE) 50 MCG/ACT nasal spray [place] 2 (two) sprays into each nostril oncedaily 05/25/21 Julián Brock MD folic acid (Folvite) 1 MG tablet TAKE 1 TABLET BY MOUTH EVERY DAY 02/02/22 Enoch Mobley DO ibuprofen (Motrin) 800 MG tablet Take 1 (one) tablet by mouth every 6 hours as needed for Pain 01/18/22 Mckayla Haywood MD mirabegron ER 24hr (MYRBETRIQ) 50 MG tablet Take 1 (one) tablet by mouth once daily 08/26/21 Tate Gant MD multivitamin daily tablet Take 1 (one) tablet by mouth once daily 05/26/21 Julián Brock MD onabotulinumtoxin A (BOTOX) 100 units injection Inject 200 (two hundred) Units into muscle Every 90days Reasons: Migraine Headache 01/18/22 Mckayla Haywood MD SYMBICORT 160-4.5 MCG/ACT inhaler Inhale 2 puffs by mouth 2 times daily 06/24/21 Provider, MD Kimi thiamine (VITAMIN B-1) 100 MG tablet Take 1 (one) tablet by mouth once daily 06/24/21 Venkata Glez MD tretinoin (RETIN-A) 0.05 % cream Pea sized amount to entire face at night. 30 days supply. Patient not taking: Reported on 01/12/2022 10/06/21 Marlys Zaragoza MD Vimpat 200 MG tablet TAKE 1 TABLET BY MOUTH TWICE DAILY 01/23/22 Markus Cabral MD zonisamide (ZONEGRAN) 100 MG capsule Take 5 (five) capsules by mouth at bedtime Reasons: Focal Epilepsy 06/29/21 Markus Cabral MD Objective Vitals BP 122/80 (BP SITE: RIGHT ARM, BP POSITION: SITTING, BP CUFF SIZE: 11) Pulse 97 Temp 97.1 ??F (36.2 ??C) (Temporal) Resp 18 Ht 1.651 m (5' 5 ) Wt 63.3 kg (139 lb 8 oz) SpO2 99% Physical Exam Physical Exam Vitals reviewed. Constitutional: General: She is not in acute distress. Appearance: Normal appearance. She is not ill-appearing, toxic-appearing or diaphoretic. [...] edema. Left lower leg: No edema. Neurological: General: No focal deficit present. Mental Status: She is alert and oriented to person, place, and time. Lab Review CBC: Recent Labs Component Name [...] displayed. BMP: Recent Labs Component Name 06/29/21 14105/13/21 1509 04/08/21 1552 10/10/17 1218 03/09/17 1445 [...] 20 17 9 - 21 21 21 22 - 31* CREATININE 0.66 0.72 0.67 - 0.80 0.80 0.80 0.78 - 0.63 GLU - - - - 86 86 86 76 - 90 ALB 3.8 3.8 3.9 - 4.2 4.2 4.2 4.0 - 4.3 PROT 6.7 6.8 6.8 - 7.0 7.0 7.0 6.2 - 6.9 - = values in this interval not displayed. CrCl cannot be calculated (Patient's most recent lab result is older than the maximum 15 days allowed.). LFTs: Recent Labs Component Name 06/29/21 1410 [...] positive 08/12/2020 positive 10/03/2021 positive 11/04/2021 positive 01/10/2022 Pap smear positive for trichomonas Assessment and Recommendations Vaginal trichomoniasis recurrent Patient has been having this for approximately one year Multiple treatment courses Unclear if adequately treated Less likely re-infection as she has not been sexually active Less likely resistant trichomonas Will treat with high dose metronidazole for 7 days Would recommend not retesting right after treatment, consider re-testing if clinically indicated later on after finishing treatment ?? Vaginal candidiasis Will treat with fluconazole for 7 days ?? Plan/Recommendations Metronidazole 2 g oral b.i.d. for 7 days Fluconazole 200 mg oral daily for 7 days Reinforced importance of hygiene Follow up p.r.n. with ID Follow up with PCP and PROCEDURES TECH Patient seen, examined, and case/plan were discussed with my attending physician, Dr. Abdias Porter MD Infectious Diseases Fellow, PGY-4 [facility] [address] [place] [address] Clinic phone [phone] Clinic fax [phone] R PRINTING OPERATOR documented in this encounter Miscellaneous Notes * Clinical References AVS - Enoch Porter MD - 03/02/2022 10:44 AM LASER PRINTING OPERATOR trichomonas_vaginalis Trichomonas Vaginalis (Discharge) Does this test have other names? Trichomonas culture, testing for trich (pronounced trick ), trichomoniasis, TV What is this test? This test looks for the Trichomonas vaginalis (T. vaginalis) parasite. This parasite causes a sexually transmitted infection (STI) called trichomoniasis. This is a common type of STI. The parasite ismore likely to infect females than males. Experts have traditionally thought it causes few complications. But it can raise a person's risk of having their baby prematurely. Infected people are also more likely to have a ekv-iisrk-yyowlf baby. Trichomoniasis can also raise your risk of becoming infected with or transmitting another STI, such as HIV. In males, this parasite can cause inflammation of the urethra. Why do I need this test? You may need this test to find out whether you have T. vaginalis. Many people who are infected haveno symptoms. Only about 3 in 10 people have symptoms. In females, the infection can cause: ?? Vaginal discharge ?? Painful urination ?? Unusual vaginal odor ?? Vaginal redness and soreness ?? Discomfort during intercourse ?? Severe vaginal itching In males, infection may cause: ?? Discharge from the penis ?? Itching or burning in the penis ?? Discomfort with urination or ejaculation What other tests might I have along with this test? In females, the healthcare provider might check the acidity (pH) of vaginal discharge. Your healthcare provider may also recommend that you be tested for other STIs, such as gonorrhea and chlamydia. What do my test results mean? Test results may vary depending on your age, gender, health history, and other things. Your test results may be different depending on the lab used. They may not mean you have a problem. Ask your healthcare provider what your test results mean for you. A normal test result means no Trichomonas parasites have been found, and the pH of the vagina will be 4.5 or less. Visible parasites under the microscope or parasites that grow in a culture dish meanyou have a trichomoniasis infection. Also during trichomoniasis, the pH of vaginal discharge may begreater than 5. How is this test done? In females, this test is done with a sample of vaginal discharge. To collect the sample, your healthcare provider may place a speculum in your vagina to look at the vagina and cervix. In males, the healthcare provider may need to swab the inside of the urethra and collect a urine sample. What might affect my test results? Nothing should affect your test results. How do I get ready for this test? You don't need to prepare for this test. Be sure your healthcare provider knows about all medicines, herbs, vitamins, and supplements you are taking. This includes medicines that don't need a prescription and any illicit drugs you may use. Last Reviewed Date: 2021 ?? [id number] The [employer]. All rights reserved. This information is not intended as a substitute for professional medical care. Always follow your healthcare professional's instructions. R PRINTING OPERATOR documented in this encounter Plan of Treatment Upcoming Encounters Date Type Department Care Team (Late st Contact Info) Description 04/04/2024 8:30 AM LASER PRINTING OPERATOR [facility] [address] [place] [address], [place] [phone] Marlys Zaragoza MD [address] [place] [address] [place] [phone] 09/03/2024 9:00 AM CDT Office Visit [facility] - Neurology [address] [place] [phone] Melissa Crook APRN-COMMUNICATIONS CONTROLLER [address] [place] [phone] documented as of this encounter Visit Diagnoses Diagnosis Trichomoniasis of vagina- Primary Trichomonal vulvovaginitis Vaginal candidiasis Candidiasis of vulva and vagina History of poor personal hygiene Health education/counseling Counseling NOS documented in this encounter Care Teams User Acceptance Tester Relationship Specialty Start Date End Date Lauren Saba INSTANTIZER OPERATOR-COMMUNICATIONS CONTROLLER [address] [place] [phone] PCP - General 01/14/18 05/10/23 documented as of this encounter
--- OUTSIDE RECORDS SUMMARY | 2024-03-22 16:37 | XMS_ITS | Encounter Summary ---
Author Organization [facility] Health Address [address] [facility] [place] [address] Care Team Providers Care Clam Dredger Name Role Phone Lauren Saba Jose Eduardo KNOX-MELANGEUR OPERATOR Primary Care Provider Reason for Visit * Reason Comments Refill Request Encounter Details Date Type Department Care Team (Late st Contact Info) Description 02/01/2022 Refill [facility] [address] [facility], [facility] [place] [phone] Markus Cabral MD [address] [place] [phone] Refill Request Social History Tobacco Use Types [...] st Contact Info) Description 04/04/2024 8:30 AM MACHINIST WOOD Office Visit [facility] - Dermatology [address] [place] [address], [place] [phone] Marlys Zaragoza MD [address] [place] [address] [place] [phone] 09/03/2024 9:00 AM CDT Office Visit [facility] - Neurology [address] [place] [phone] Melissa Crook APRN-MELANGEUR OPERATOR [address] [place] [phone] documented as of this encounter Visit Diagnoses Diagnosis Seizures (HCC) Other convulsions documented in this encounter Care Teams Clam Dredger Relationship Specialty Start Date End Date Lauren Saba DIRECTOR MUSIC-MELANGEUR OPERATOR [address] [place] [phone] PCP - General 01/14/18 05/10/23 documented as of this encounter
--- OUTSIDE RECORDS SUMMARY | 2024-03-22 16:37 | XMS_ITS | Encounter Summary ---
Author Organization [facility] Health Address [address] [facility] [place] [address] Care Team Providers Care Inspection Clerk Name Role Phone Wandy Laurenreilly Whitt APRN-RETAIL MERCHANDISING MANAGER Primary Care Provider Reason for Visit * Reason Onset Date Comments MEDICATION REFILL 05/12/2022 Encounter Details Date Type Department Care Team (Late st Contact Info) Description 05/12/2022 Refill [facility] Dermat[facility] [address] [facility], [place] [phone] Nancy Lowe MA MEDICATION REFILL Social History Tobacco Use Types [...] encounter Miscellaneous Notes * Telephone Encounter - Nancy Lowe MA - 05/12/2022 2:24 PM CST [place] 10-02-2022 [place] 10-06-2022 RTC one year Nancy Lowe MA ARCH AND DEVELOPMENT RESEARCHER documented in this encounter Plan of Treatment Upcoming Encounters Date Type Department Care Team (Late st Contact Info) Description 04/04/2024 8:30 AM RESEARCH AND DEVELOPMENT RESEARCHER Office Visit [facility] - Dermatology [address] [place] [address], [place] [phone] Marlys Zaragoza MD [address] [place] [address] 3 [place] [phone] 09/03/2024 9:00 AM CDT Office Visit [facility] - Neurology [address] [place] [phone] Melissa Crook APRN-RETAIL MERCHANDISING MANAGER [address] [place] [phone] documented as of this encounter Visit Diagnoses Not on filedocumented in this encounter Care Teams Inspection Clerk Relationship Specialty Start Date End Date Lauren Saba, MUNITIONS FACTORY WORKER-RETAIL MERCHANDISING MANAGER [address] [place] [phone] PCP - General 01/14/18 05/10/23 documented as of this encounter
--- OUTSIDE RECORDS SUMMARY | 2024-03-22 16:37 | XMS_ITS | Encounter Summary ---
Author Organization [facility] Health Address [address] [facility] [place] [address] Care Team Providers Care Driver Guide Name Role Phone Lauren Saba Jose Eduardo KNOX-PAPER SHEETER Primary Care Provider Reason for Visit * Reason Onset Date Comments Order 04/07/2022 Encounter Details Date Type Department Care Team (Late st Contact Info) Description 04/07/2022 Telephone [facility] [address] [facility], [place] [phone] Markus Cabral MD [address] [place] [phone] Order Social History Tobacco Use Types Packs/Day Years [...] Telephone Encounter - Melinda Espinoza, RN - 04/07/2022 10:17 AM PURCHASING OFFICER Message left for patient: I ordered seizure drug levels for this pt. Can you please call and ask her to do it in next week ortwo Left message on phone and [employer] HASING OFFICER documented in this encounter Plan of Treatment Upcoming Encounters Date Type Department Care Team (Late st Contact Info) Description 04/04/2024 8:30 AM PURCHASING OFFICER Office Visit [facility] - Dermatology [address] [place] [address], [place] [phone] Marlys Zaragoza MD [address] [place] [address] [address] [place] [phone] 09/03/2024 9:00 AM CDT Office Visit [facility] - Neurology [address] [place] [address], [place] [phone] BernekingMelissa APRN-CNP [address] [place] [address] documented as of this encounter Visit Diagnoses Not on filedocumented in this encounter Care Teams Driver Guide Relationship Specialty Start Date End Date Lauren Saba APRN-CNP [address] [place] [phone] PCP - General 01/14/18 05/10/23 documented as of this encounter
--- OUTSIDE RECORDS SUMMARY | 2024-03-22 16:37 | XMS_ITS | Encounter Summary ---
Author Organization [facility] Health Address [address] [facility] [place] [address] Care Team Providers Care Cooling System Operator Name Role Phone Lauren Saba Jose Eduardo KNOX-AIRPORT SKILLED MAINTENANCE SUPERVISOR Primary Care Provider Reason for Visit * Reason Onset Date Comments MEDICATION REFILL 05/05/2022 Encounter Details Date Type Department Care Team (Late st Contact Info) Description 05/05/2022 Refill [facility] [address] [facility], [place] [phone] Marlys Zaragoza MD [address] [facility] 3 [place] [phone] MEDICATION REFILL Social History Tobacco Use Types [...] st Contact Info) Description 04/04/2024 8:30 AM POWER CHISEL OPERATOR [facility] [address] [place] [phone] Marlys Zaragoza MD [address] [place] [address] 3 [place] [phone] 09/03/2024 9:00 AM CDT Office Visit [facility] - Neurology [address] [place] [address], [place] [phone] Melissa Crook APRN-AIRPORT SKILLED MAINTENANCE SUPERVISOR [address] [place] [address] documented as of this encounter Visit Diagnoses Not on filedocumented in this encounter Care Teams Cooling System Operator Relationship Specialty Start Date End Date Lauren Saba APRN-AIRPORT SKILLED MAINTENANCE SUPERVISOR [address] [place] [phone] PCP - General 01/14/18 05/10/23 documented as of this encounter
--- OUTSIDE RECORDS SUMMARY | 2024-03-22 16:37 | XMS_ITS | Encounter Summary ---
Author Organization [facility] Health Address [address] [facility] [place] [address] Care Team Providers Care Briquette Molder Name Role Phone Lauren Saba Jose Eduardo KNOX-MIXER WET POUR Primary Care Provider Reason for Visit * Radiology Services (Routine) - Closed Specialty Diagnoses / Procedures Referred By Nicole shipley Referred To Contact MRI Diagnoses MS (multiple sclerosis) (HCC) Procedures MRI BRAIN WWO CONTRAST Markus Cabral MD [address] [place] [address] [facility] Mri [address] [place] [address] Referral ID Status Reason Start Date Expiration Date Visits Re quested Visits Authorized [id number] Closed 05/08/2022 08/06/2022 1 1 Encounter Details Date Type Department Care Team (Latest Contact Info) Description 05/13/2022 1:13 PM PRESS HAND SUPERVISOR - 05/13/2022 11:[address] [facility] Hospital Encounter [facility] MRI [address] [place] [phone] Markus Cabral MD [address] [place] [address] Discharge Disposition: Home or Self Care Social [...] No 05/13/2021 documented as of this encounter Medications at Time of Discharge Medication Sig Dispensed Refills Start Date End Date Abiliflenore Maintena 300 MG injectionIndications: Unspecified Psychosis. Behavioral Disturbances in Dementia Inject 300 (three hundred) mg into muscle every 28 days ; last received on 05/18/2021. Next due 06/15/2021. Reasons: Unspecified Psychosis. Behavioral Disturbances in Dementia 1 Each 5 01/11/2022 12/12/2022 ALPRAZolam (Xanax) 0.5 MG tabletIndications:Sei zures (HCC),Phobia, unspecified type Take one pill 30 min before MRI. May repeat once. Bring some one to drive you. 2 tablet 05/05/2022 06/14/2022 ARIPiprazole (ABILIFY) 10 MG tablet Take 1 (one) tablet by mouth once daily for 12 days 12 tablet 04/12/2021 12/12/2022 ARIPiprazole (ABILIFY) 15 MG tabletIndications:Beh avioral Disorders associated with Dementia,Mood Disorder Take 1 (one) tablet by mouth once daily for 7 days ; after 7 days, discontinue oral Abilify and continue with the long-acting injectable only. Reasons: Behavioral Disorders associated with Dementia, Mood Disorder 7 tablet 05/25/2021 12/12/2022 baclofen (LIORESAL) 10 MG tabletIndications:Mus jensen Spasticity Take 1 (one) tablet by mouth 2 times daily May cause drowsiness. Reasons: Muscle Spasticity 60 tablet 05/25/2021 12/12/2022 docusate sodium (COLACE) 100 MG capsule Take 1 (one) capsule by mouth every 12 hours 06/21/2021 12/12/2022 escitalopram (Lexapro) 10 MG tabletIndications:René or Depressive Disorder Take 1 (one) tablet by mouth once daily Reasons: Major Depressive Disorder 30 tablet 2 04/05/2022 06/30/2022 escitalopram (Lexapro) 20 MG tablet Take 1 (one) tablet by mouth once daily 30 tablet 2 04/05/2022 09/07/2022 fluticasone propionate (FLONASE) 50 MCG/ACT nasal spray [place] 2 (two) sprays into each nostril once daily 1 Each 05/25/2021 12/12/2022 folic acid (Folvite) 1 MG tablet Take 1 (one) tablet by mouth once daily 30 tablet 04/18/2022 05/15/2022 ibuprofen (Motrin) 800 MG tabletIndications:Int ractable migraine without status migrainosus, unspecified migraine type Take 1 (one) tablet by mouth every 6 hours as needed for Pain 30 tablet 3 01/18/2022 12/12/2022 lacosamide (Vimpat) 200 MG tabletIndications:Antwon velasco ([facility]) Take 1 (one) tablet by mouth 2 times daily 180 tablet 1 05/05/2022 07/26/2022 levETIRAcetam (Keppra) 500 MG tabletIndications:Antwon velasco (HCC) Take 1 (one) tablet by mouth 2 times daily 180 tablet 1 05/05/2022 08/09/2022 mirabegron ER 24hr (MYRBETRIQ) 50 MG tablet Take 1 (one) tablet by mouth once daily 30 tablet 3 08/26/2021 10/06/2022 multivitamin daily tablet Take 1 (one) tablet by mouth once daily 30 tablet 05/26/2021 10/06/2022 onabotulinumtoxin A (BOTOX) 100 units injectionIndications: Migraine Inject 200 (two hundred) Units into muscle Every 90 days Reasons: Migraine Headache 2 Each 3 05/05/2022 09/08/2022 SYMBICORT 160-4.5 MCG/ACT inhaler Inhale 2 (two) puffs by mouth 2 times daily 06/24/2021 12/12/2022 thiamine (VITAMIN B-1) 100 MG tablet Take 1 (one) tablet by mouth once daily 30 tablet 06/24/2021 12/12/2022 tretinoin (Retin-A) 0.05 % cream Pea sized amount to entire face at night. 30 days supply. 20 g 11 05/12/2022 10/06/2022 Ventolin HFA 108 (90 Base) MCG/ACT inhaler Inhale 2 (two) puffs by mouth every 4 hours as needed 01/31/2022 12/08/2022 zonisamide (ZONEGRAN) 100 MG capsuleIndications:Fo haseeb Epilepsy Take 5 (five) capsules by mouth at bedtime Reasons: Focal Epilepsy 450 capsule 3 06/29/2021 07/17/2022 documented as of this encounter Plan of Treatment Upcoming Encounters Date Type Department Care Team (Late st Contact Info) Description 04/04/2024 8:30 AM PRESS HAND SUPERVISOR Office Visit [facility] Dermatology [address] [place] [address], [facility] [place] [address] Marlys Zaragoza MD [address] [place] [address] [address] [place] [address] 09/03/2024 9:00 AM CDT Office Visit [facility] - Neurology [address] [facility], [place] [phone] Melissa Crook, LISETTE-MIXER WET POUR [address] [place] [phone] documented as of this encounter Procedures Procedure Name Priority Date/Time Associated Diagnosis Comments MRI BRAIN WWO CONTRAST Routine 05/13/2022 2:38 PM PRESS HAND SUPERVISOR MS (multiple sclerosis) ([facility]) CREATININE - POCT INTERFACED Routine 05/13/2022 1:41 PM PRESS HAND SUPERVISOR documented in this encounter Results * MRI BRAIN WWO CONTRAST (05/13/2022 2:38 PM PRESS HAND SUPERVISOR) Anatomical Region Laterality Modality Head Magnetic Resonan ce 05/15/2022 10:5 3 PM PRESS HAND SUPERVISOR Impressions 05/15/2022 11:23 PM PRESS HAND SUPERVISOR IMPRESSION: 1.Multiple intracranial white matter lesions compatible with multiple sclerosis. No new T2 lesions and no new enhancing lesions to suggest active demyelination. Moderate parenchymal volume loss, advanced for the patient's stated age. ?? > Interpreting Provider: Damon Townsend MD on 05/15/2022 11:23 PM Narrative 05/15/2022 11:23 PM PRESS HAND SUPERVISOR PROCEDURE: ??MRI BRAIN WWO CONTRAST, DATE/TIME OF EXAM: ??05/13/2022 2:39 PM, LOCATION ??[facility] INDICATION: G35: MS (multiple sclerosis) (CMS/HCC) ADDITIONAL CLINICAL INFORMATION: Ordering Provider Reason For Exam: ??Multiple sclerosis. Technologist Note: ??Does the patient have a defibrillator, pacemaker, aneurysm clips or implanted mechanical devices?->No Does the patient have metal implants or stents?->No. Additional: ??None. EXAMINATION: Magnetic resonance imaging (MRI) of the brain without and with contrast CONTRAST: ??GADOBUTROL 1 MMOL/ML IV [facility] SO:7 mL TECHNIQUE: MRI of the brain was performed prior to and following the uneventful administration of 7 mL intravenous GADAVIST contrast according to a demyelination protocol. COMPARISON: MRI of the brain from 11/08/2020. FINDINGS: No evidence of acute or chronic hemorrhage [...] calvarium and visualized cervical spine appear normal. Procedure Note Damon Townsend MD - 05/15/2022 PROCEDURE: MRI BRAIN WWO CONTRAST, DATE/TIME OF EXAM: 05/13/2022 2:39PM, LOCATION [facility] INDICATION: G35: MS (multiple sclerosis) ([facility]) ADDITIONAL CLINICAL INFORMATION: Ordering Provider Reason For Exam: Multiple sclerosis. Technologist Note: Does the patient have a defibrillator, pacemaker, aneurysm clips or implanted mechanical devices?->No Does the patienthave metal implants or stents?->No. Additional: None. EXAMINATION: Magnetic resonance imaging (MRI) of the brain without andwith contrast CONTRAST: GADOBUTROL 1 MMOL/ML IV SS SO:7 mL TECHNIQUE: MRI of the brain was performed prior to and following the uneventful administration of 7 mL intravenous GADAVIST contrastaccording to a demyelination protocol. COMPARISON: MRI of the brain from 11/08/2020. FINDINGS: No evidence of acute or chronic hemorrhage [...] calvarium and visualized cervical spine appear normal. IMPRESSION: 1.Multiple intracranial white matter lesions compatible with multiple sclerosis. No new T2 lesions and no new enhancing lesions to suggestactive demyelination. Moderate parenchymal volume loss, advanced for thepatient's stated age. > Interpreting Provider: Damon Townsend MD on 05/15/2022 11:23 PM Markus Cabral MD MR ORDERABLES * CREATININE - POCT INTERFACED (05/13/2022 1:41 PM PRESS HAND SUPERVISOR) Creatinine POCT 0.68 0.30 - 1.30 mg/dL 05/13/2022 1:42 PM PRESS HAND SUPERVISOR [facility] Comment:Range ok for MRI eGFR >90 >90 mL/min/1.7 3 m2 05/13/2022 1:42 PM PRESS HAND SUPERVISOR [facility] Blood BLOOD SPECIMEN / Unknown 05/13/2022 1:41 PM PRESS HAND SUPERVISOR 05/13/2022 1:42 PM PRESS HAND SUPERVISOR Markus Cabral MD LAB - POINT OF CARE ORDERABLES [facility] [address] [place] [phone], [facility] [phone] documented in this encounter Visit Diagnoses Diagnosis MS (multiple sclerosis) (HCC) Multiple sclerosis documented in this encounter Administered Medications Inactive Administered Medications - up to 3 most recent administrations Medication Order MAR Action Action Date Dose Rate Site gadobutrol (Gadavist) injection Intravenous, CONTRAST ONCE, Starting on 05/13/22 at 1404, Until 05/14/22 at 0118 $ Given - Contrast 05/13/2022 2:24 PM PRESS HAND SUPERVISOR 7 mL documented in this encounter Care Teams Briquette Molder Relationship Specialty Start Date End Date Lauren Saba, MARBLE CHIP TERRAZZO WORKER-MIXER WET POUR [address] [place] [address] PCP - General 01/14/18 05/10/23 documented as of this encounter
--- OUTSIDE RECORDS SUMMARY | 2024-03-22 16:37 | XMS_ITS | Encounter Summary ---
Author Organization [facility] Health Address [address] [place] [address] Care Team Providers Care Multicut Line Operator Name Role Phone Wandy Laurenreilly Whitt APRN-ORACLE BUSINESS ANALYST Primary Care Provider Reason for Visit * Reason Onset Date Comments Medication Prior Auth Request 12/22/2021 Encounter Details Date Type Department Care Team (Late st Contact Info) Description 12/22/2021 Telephone [facility] [address] [facility], [place] [address] Enoch Porter MD [address] [facility] [place] [address] Medication Prior Auth Request Social History Tobacco Use Types Packs/Day [...] encounter Miscellaneous Notes * Telephone Encounter - Caitlin Strauss LPN - 12/26/2021 6:59 AM CDT PA was denied by insurance. Pharmacy notified. Appeal info placed in providers box. * Telephone Encounter - Caitlin Strauss LPN - 12/22/2021 2:40 PM CDT Insurance requires prior auth for Metronidazole. Prior auth request submitted on line at [employer]. Office notes submitted with request Yes. Waiting for insurance response. Cover My Meds rajan:[email or web address] documented in this encounter Plan of Treatment Upcoming Encounters Date Type Department Care Team (Late st Contact Info) Description 04/04/2024 8:30 AM TROPHY ASSEMBLER Office Visit [facility] - Dermatology [address] [place] [address], [place] [address] Marlys Zaragoza MD [address] [place] [address] [address] [place] [address] 09/03/2024 9:00 AM CDT Office Visit [facility] Neurology [address] [facility], [place] [address] Melissa Crook APRN-NAIF [address] [place] [phone] documented as of this encounter Visit Diagnoses Not on filedocumented in this encounter Care Teams Multicut Line Operator Relationship Specialty Start Date End Date Lauren Saba APRN-ORACLE BUSINESS ANALYST [address] [place] [phone] PCP - General 01/14/18 05/10/23 documented as of this encounter
--- OUTSIDE RECORDS SUMMARY | 2024-03-22 16:37 | XMS_ITS | Encounter Summary ---
Author Organization [facility] Health Address [address] [facility] [place] [address] Care Team Providers Care State Wildlife Officer Name Role Phone Wandy Lauren Jose Eduardo KNOX-HOME ENERGY AUDITOR Primary Care Provider Reason for Visit * Reason Onset Date Comments Medication Issue 06/01/2022 Encounter Details Date Type Department Care Team (Late st Contact Info) Description 06/01/2022 Telephone [facility] [address] [facility], [facility] [place] [address] Marlys Zaragoza MD [address] [facility] 3 [place] [address] Medication Issue Social History Tobacco Use Types [...] Telephone Encounter - Marlys Zaragoza MD - 06/01/2022 10:28 PM CDT Tretinoin gel ordered for patient. * Telephone Encounter - Kyung Seymour - 06/01/2022 2:58 PM CDT Pt CRISTELA 10/06/21 you prescribed tretinoin (Retin-A) 0.05 % cream which is not covered by the pt insurance but the alternative Tretinoin gel is covered Please advise documented in this encounter Plan of Treatment Upcoming Encounters Date Type Department Care Team (Late st Contact Info) Description 04/04/2024 8:30 AM WELT BEATER Office Visit [facility] - Dermatology [address] [place] [address], [place] [address] Marlys Zaragoza MD [address] [place] [address] 3 [place] [address] 09/03/2024 9:00 AM CDT Office Visit [facility] - Neurology [address] [place] [address] [place] [phone] Melissa Crook APRN-NAIF [address] [place] [phone] documented as of this encounter Visit Diagnoses Not on filedocumented in this encounter Care Teams State Wildlife Officer Relationship Specialty Start Date End Date Lauren Saba APRN-HOME ENERGY AUDITOR [address] [place] [phone] PCP - General 01/14/18 05/10/23 documented as of this encounter
--- OUTSIDE RECORDS SUMMARY | 2024-03-22 16:37 | XMS_ITS | Encounter Summary ---
Author Organization [facility] Health Address [address] [facility] [place] [address] Care Team Providers Care Django Developer Name Role Phone Lauren Saba Jose Eduardo KNOX-STOCK BLENDER Primary Care Provider Reason for Visit * Reason Onset Date Comments Order 04/11/2022 Encounter Details Date Type Department Care Team (Late st Contact Info) Description 04/11/2022 Telephone [facility] [address] [facility], [place] [address] Markus Cabral MD [address] [place] [address] Order Social History Tobacco Use Types Packs/Day [...] Telephone Encounter - Melinda Espinoza RN - 04/11/2022 4:16 PM CST Attempt to contact patient unsuccessful. Sent My Chart message. Orders faxed to [employer] as requested. PAINT MIXER * Telephone Encounter - Melinda Espinoza RN - 04/11/2022 3:47 PM CST ----- Message from Dilma Gruber RN sent at 04/11/2022 3:00 PM HAND PAINT MIXER ----- ----- Message ----- From: Fortino Win Sent: 04/11/2022 2:56 PM HAND PAINT MIXER To: Neur- Nurse Request Meredith needs a script sent to [facility] fax [phone] phone [phone] for her physical therapy. She also needs a bloodwork req sent to the [facility] in [place] Thanks She talks faster that anybody I had ever heard. PAINT MIXER documented in this encounter Plan of Treatment Upcoming Encounters Date Type Department Care Team (Late st Contact Info) Description 04/04/2024 8:30 AM HAND PAINT MIXER Office Visit [facility] - Dermatology [address] [place] [address], [place] [phone] Marlys Zaragoza MD [address] [place] [address] 3L [place] [phone] 09/03/2024 9:00 AM CDT Office Visit [facility] - Neurology [address] [place] [address] [place] [phone] Melissa Crook APRN-CNP [address] [place] [phone] documented as of this encounter Visit Diagnoses Not on filedocumented in this encounter Care Teams Django Developer Relationship Specialty Start Date End Date Lauren Saba APRN-STOCK BLENDER [address] [place] [phone] PCP - General 01/14/18 05/10/23 documented as of this encounter
--- OUTSIDE RECORDS SUMMARY | 2024-03-22 16:37 | XMS_ITS | Encounter Summary ---
Author Organization [facility] Health Address [address] [facility] [place] [address] Care Team Providers Care Game Attendant Name Role Phone Wandy Lauren Jose Eduardo KNOX-LOAN AUDITOR Primary Care Provider Reason for Visit * Reason Onset Date Comments Medication Issue 08/04/2021 Encounter Details Date Type Department Care Team (Late st Contact Info) Description 08/04/2021 Telephone [facility] [address] [facility], [facility] [place] [address] Marlys Zaragoza MD [address] [facility] 3 [place] [address] Medication Issue Social History Tobacco [...] encounter Miscellaneous Notes * Telephone Encounter - Rachell Hawkins - 08/04/2021 4:18 PM CDT Pt called this afternoon regarding her medication for tretinoin (RETIN-A) 0.05 % cream. Pt states that she needs a refill for her medication. Please advise.. documented in this encounter Plan of Treatment Upcoming Encounters Date Type Department Care Team (Late st Contact Info) Description 04/04/2024 8:30 AM BUSINESS ACCOUNT EXECUTIVE Office Visit [facility] - Dermatology [address] [place] [address], [place] [phone] Marlys Zaragoza MD [address] [place] [address] 3 [place] [phone] 09/03/2024 9:00 AM CDT Office Visit [facility] - Neurology [address] [place] [address], [place] [phone] BernekingMelissa APRN-CNP [address] [place] [address] documented as of this encounter Visit Diagnoses Not on filedocumented in this encounter Care Teams Game Attendant Relationship Specialty Start Date End Date Lauren Saba APRN-CNP [address] [place] [phone] PCP - General 01/14/18 05/10/23 documented as of this encounter
--- OUTSIDE RECORDS SUMMARY | 2024-03-22 16:37 | XMS_ITS | Encounter Summary ---
Author Organization [facility] Health Address [address] [place] [address] Care Team Providers Care Senior Network Architect Name Role Phone Lauren Saba Jose Eduardo KNOX-PRODUCTION MATERIAL COORDINATOR Primary Care Provider Reason for Visit * Reason Comments Botox Encounter Details Date Type Department Care Team (Latest Contact Info) Description 10/21/2021 11:00 AM CDT Procedure visit [facility] Neurology [facility], [facility] [place] [address] Mckayla Haywood MD [address] [place] [address] [place] [address] Intractable migraine without status migrainosus, unspecified migraine type Social History Tobacco Use Types Packs/Day Years [...] PHQ-2 Answer Date Recorded PHQ2 TOTAL SCORE 1 10/12/2021 Education Answer Date Recorded What is the [...] Sign Reading Time Taken Comments Blood Pressure 118/78 10/21/2021 10:50 AM CDT Pulse 85 10/21/2021 10:50 AM CDT Temperature 36.2 ??C (97.1 ??F) 10/21/2021 10:50 AM C DT Respiratory Rate - - Oxygen Saturation 98% 10/21/2021 10:50 AM CDT Inhaled Oxygen Concentration - - Weight 68.8 kg (151 lb 9.6 oz) 10/21/2021 10:50 AM CDT Height 165.1 cm (5' 5 ) 10/21/2021 10:50 AM CDT Body Mass Index 25.23 10/21/2021 10:50 AM CDT documented in this encounter Functional [...] Progress Notes * Mckayla Haywood MD - 10/21/2021 11:00 AM CDT The patient has a long history of chronic migraine, which has been unresponsive to multiple medications. The patient has nausea and light sensitivity with headaches. Here for botox for chronic migraine. The patient has had significant benefit from Botox with a greater than 50% reduction in headache frequency and severity. Follows in MS clinic and Epilepsy clinic.?? Recently had right foot drop, but this has mostly resolved. Current Outpatient Medications Medication Sig Dispense Refill ??? ABILIFY MAINTENA [...] mouth every 12 hours ??? escitalopram (LEXAPRO) 10 MG tablet Take 1 (one) tablet by mouth once daily Reasons: Major Depressive Disorder 30 tablet 2 ??? escitalopram (LEXAPRO) 20 MG tablet Take 1 (one) tablet by mouth once daily 30 tablet 2 ??? fluticasone propionate (FLONASE) 50 MCG/ACT nasal spray [place] 2 (two) sprays into each nostril once daily 1 Each 0 ??? folic acid (FOLVITE) 1 MG tablet Take 1 (one) tablet by mouth once daily 30 tablet 0 ??? ibuprofen (MOTRIN) 800 MG tablet Take 1 (one) tablet by mouth every 6 hours as needed for Pain 30 tablet 0 ??? lacosamide (VIMPAT) 200 MG tablet Take 1 (one) tablet by mouth 2 times daily 180 tablet 3 ??? metroNIDAZOLE (FLAGYL) 500 MG tablet Take 500 mg by mouth 2 times daily FOR 7 DAYS (Patient nottaking: No sig reported) ??? mirabegron ER 24hr (MYRBETRIQ) 50 MG [...] night. 30 days supply. 20 g11 ??? triamcinolone acetonide (KENALOG) 0.025 % ointment APPLY THIN LAYER TOPICALLY TO THE AFFECTED AREA TWICE DAILY FOR 7 DAYS NEEDED (Patient not taking: No sig reported) ??? zonisamide (ZONEGRAN) 100 MG capsule Take 5 (five) capsules by mouth at bedtime Reasons: Focal Epilepsy 450 capsule 3 Current Facility-Administered Medications Medication Dose Route Frequency Provider Last Rate Last Admin ??? ARIPiprazole ER (Abiliflenore Maintena) prefilled syringe 300 mg 300 mg Intramuscular q28 days Venkata Glez MD 300 mg at 10/07/21 1011 BP 118/78 Pulse 85 Temp 97.1 ??F (36.2 ??C) (Oral) Ht 5' 5 (1.651 m) Wt 151 lb 9.6 oz (68.8 kg) SpO2 98% Awake, alert, CN: Extraocular movements intact, slight ptosis on right side. She reports that she has had this before, and botox does not worsen symptom. Diagnosis: Chronic migraine without aura,intractable, Without status migrainosus Administer Botox for chronic migraine today. See procedure note for details. documented in this encounter Procedure Notes * Mckayla Haywood MD - 10/21/2021 10:52 AM CDTAssociated Order(s): PROC INJECTION - BOTOX Procedure(s): MT CHEMODENERV MUSC MIGRAINE Pre-Procedure Diagnose(s): Intractable migraine without status migrainosus, unspecified migraine type Post-Procedure Diagnose(s): Intractable chronic 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 without status migrainosus ?? Botox Procedure Note ?? Patient's identity confirmed by having patient say first and last name, and date of . ?? Diagnosis: Chronic migraine ?? Procedure code: 71394 ?? History: ?? Baseline number of headaches per month:30 Current headaches per month:(5) ?? Number of headache hours per day (baseline): 12 Number of headache hour per day (current): 1 ?? Associated symptoms (baseline): Moderate to severe pain, nausea, vomiting, photophobia, phonophobia. ?? Associated symptoms (current): Moderate pain, nausea, photophobia, phonophobia. ?? The patient has had significant benefit from Botox with a greater than 50% reduction in headache frequency and severity. ?? Current migraine prophylactic medications:none Current migraine abortive treatments:none ? Date of last injection: 07/13/2021 ?? Duration of benefit: 2-3 months ?? [...] st Contact Info) Description 04/04/2024 8:30 AM BILINGUAL CUSTOMER SERVICE SPECIALIST Office Visit [facility] - Dermatology [address] [place] [address], [place] [phone] Marlys Zaragoza MD [address] [place] [address] [address] [place] [address] 09/03/2024 9:00 AM CDT Office Visit [facility] - Neurology [address] [place] [phone] Melissa Crook, LISETTE-PRODUCTION MATERIAL COORDINATOR [address] [place] [phone] documented as of this encounter Procedures Procedure Name Priority Date/Time Associated Diagnosis Comments MT CHEMODENERV MUSC MIGRAINE Routine 10/21/2021 10:52 AM CDT Intractable migraine without status migrainosus, unspecified migraine type documented in this encounter Results * MT CHEMODENERV MUSC MIGRAINE (10/21/2021 10:52 AM CDT) Narrative Mckayla Haywood MD - 10/21/2021 10:52 AM CDT Mckayla Haywood MD ? 10/21/2021 11:36 AM ?? Botox Procedure Note ?? Patient's identity confirmed by having patient say first and last name, and date of . ?? Diagnosis: Chronic migraine ?? Procedure code: 27639 ?? History: ?? Baseline number of headaches [...] in this encounter Visit Diagnoses Diagnosis Intractable migraine without status migrainosus, unspecified migraine type- Primary documented in this encounter Administered Medications Inactive Administered Medications - up to 3 most recent administrations Medication Order MAR Action Action Date Dose Rate Site onabotulinumtoxin A (Botox) injection 200 Units 200 Units, Intramuscular, ONCE, 1 dose, On Sun10/21/21 at 1100 $ Given 10/21/2021 11:10 AM CDT 200 Units Head documented in this encounter Care Teams Senior Network Architect Relationship Specialty Start Date End Date Lauren Saba, CURER ACID DRUM-PRODUCTION MATERIAL COORDINATOR [address] [place] [phone] PCP - General 01/14/18 05/10/23 documented as of this encounter
--- OUTSIDE RECORDS SUMMARY | 2024-03-22 16:37 | XMS_ITS | Encounter Summary ---
Author Organization [facility] Health Address [address] [place] [address] Care Team Providers Care Mercerizing Range Controller Name Role Phone Lauren Saba Jose Eduardo KNOX-LIBRARY SCIENCE PROFESSOR Primary Care Provider Encounter Details Date Type Department Care Team (Late st Contact Info) Description 08/31/2021 Orders Only [facility] [address] [place] [address], [place] [phone] Marlys Zaragoza MD [address] [place] [address] 3 [place] [phone] Social History Tobacco Use Types Packs/Day Years [...] st Contact Info) Description 04/04/2024 8:30 AM PROSTHETIC AIDE Office Visit [facility] - Dermatology [address] [place] [address], [place] [address] Marlys Zaragoza MD [address] [place] [address] [place] [phone] 09/03/2024 9:00 AM CDT Office Visit [facility] - Neurology [address] [place] [phone] Melissa Crook APRN-LIBRARY SCIENCE PROFESSOR [address] [place] [phone] documented as of this encounter Visit Diagnoses Not on filedocumented in this encounter Care Teams Mercerizing Range Controller Relationship Specialty Start Date End Date Lauren Saba APRN-LIBRARY SCIENCE PROFESSOR [address] [place] [phone] PCP - General 01/14/18 05/10/23 documented as of this encounter
--- OUTSIDE RECORDS SUMMARY | 2024-03-22 16:37 | XMS_ITS | Encounter Summary ---
Author Organization [facility] Health Address [address] [facility] [place] [address] Care Team Providers Care Legal Transcriptionist Name Role Phone Lauren Saba Jose Eduardo KNOX-QUALITY CONTROL TECHNICIAN Primary Care Provider Encounter Details Date Type Department Care Team (Late st Contact Info) Description 05/10/2021 Orders Only [facility] Neurology [address] [facility], [place] [phone] Markus Cabral MD [address] [place] [address] Seizures (HCC) Social History Tobacco Use Types [...] AM CDT documented as of this encounter Progress Notes * Markus Cabral MD - 05/10/2021 3:38 PM CST Refilled vimpat 200 mg BID ARY SERVICES DIRECTOR documented in this encounter Plan of Treatment Upcoming Encounters Date Type Department Care Team (Late st Contact Info) Description 04/04/2024 8:30 AM DIETARY SERVICES DIRECTOR Office Visit [facility] - Dermatology [address] [place] [address], [place] [address] Marlys Zaragoza MD [address] [place] [address] 3L DEPT [place] [phone] 09/03/2024 9:00 AM CDT Office Visit [facility] - Neurology [address] [place] [phone] Melissa Crook APRN-NAIF [address] [place] [phone] documented as of this encounter Visit Diagnoses Diagnosis Seizures (HCC)- Primary Other convulsions documented in this encounter Care Teams Legal Transcriptionist Relationship Specialty Start Date End Date Lauren Saba TRUER PINION AND WHEEL-QUALITY CONTROL TECHNICIAN [address] [place] [phone] PCP - General 01/14/18 05/10/23 documented as of this encounter
--- OUTSIDE RECORDS SUMMARY | 2024-03-22 16:37 | XMS_ITS | Encounter Summary ---
Author Organization [facility] Health Address [address] [facility] [address] Care Team Providers Care Foundry Operator Name Role Phone Lauren Saba Jose Eduardo KNOX-WHEEL BRAIDER Primary Care Provider Reason for Referral * Evaluate & Treat (Routine) - Closed Specialty Diagnoses / Procedures Referred By Contac t Referred To Contact Neurology Diagnoses Seizures (HCC) Markus Cabral MD [address] [place] [address] [facility] [address] Ne[facility] Csm 1l [address] [place] [address] Referral ID Status Reason Start Date Expiration Date V isits Requested Visits Authorized [id number] Closed Specialty Services Required 05/04/2022 05/04/2023 1 1 Scheduling Instructions Please schedule with one of the Attendings. ET MANAGER Encounter Details Date Type Department Care Team ([facility] st Contact Info) Description 05/04/2022 Orders Only [facility] Neurology [address] [place] [phone] Markus Cabral MD [address] [place] [address] Seizures (HCC) ; Phobia, unspecified type Social History Tobacco Use Types Packs/Day [...] st Contact Info) Description 04/04/2024 8:30 AM OUTLET MANAGER Office Visit [facility] - Dermatology [address] [place] [address], [place] [address] Marlys Zaragoza MD [address] [place] [address] 3 [place] [phone] 09/03/2024 9:00 AM CDT Office Visit [facility], [facility] [place] [phone] Melissa Crook, LISETTE-WHEEL BRAIDER [address] [place] [phone] Scheduled Referrals Name Type Priority Associated Diagnoses Order Schedule Ref to Neurology - [facility] Outpatient Referral Routine Seizures (HCC) 1 Occurrences starting 05/04/2022 until 05/04/2023 documented as of this encounter Visit Diagnoses Diagnosis Seizures (HCC)- Primary Other convulsions Phobia, unspecified type documented in this encounter Care Teams Foundry Operator Relationship Specialty Start Date End Date Lauren Saba APRN-WHEEL BRAIDER [address] [place] [phone] PCP - General 01/14/18 05/10/23 documented as of this encounter
--- OUTSIDE RECORDS SUMMARY | 2024-03-22 16:37 | XMS_ITS | Encounter Summary ---
Author Organization [facility] Health Address [address] [facility] [place] [address] Care Team Providers Care Radio Engineering Teacher Name Role Phone Lauren Saba Jose Eduardo KNOX-COMMUNITY CHEST OFFICER Primary Care Provider Reason for Visit * Reason Comments MIGRAINE Encounter Details Date Type Department Care Team (Latest Contact Info) Description 07/13/2021 11:00 AM CDT Procedure visit [facility] Neurology [facility], [facility] [place] [address] Mckayla Haywood MD [address] [place] [address] [place] [address] Intractable chronic migraine without aura [...] PM CDT documented as of this encounter Last Filed Vital Signs Vital Sign Reading Time Taken Comments Blood Pressure 112/68 07/13/2021 10:18 AM CDT Pulse 87 07/13/2021 10:18 AM CDT Temperature 37 ??C (98.6 ??F) 07/13/2021 10:18 AM CDT Respiratory Rate - - Oxygen Saturation 98% 07/13/2021 10:18 AM CDT Inhaled Oxygen Concentration - - Weight 68.3 kg (150 lb 9.6 oz) 07/13/2021 10:18 AM CDT Height 165.1 cm (5' 5 ) 07/13/2021 10:18 AM CDT Body Mass Index 25.06 07/13/2021 10:18 AM CDT documented in this encounter [...] Progress Notes * Mckayla Haywood MD - 07/13/2021 11:00 AM CDT The patient has a long history of chronic migraine, which has been unresponsive to multiple medications. The patient has nausea and light sensitivity with headaches. Here for botox for chronic migraine. DATE OF FIRST BOTOX TREATMENT: 07/18/2017 The patient has had significant benefit from [...] tablet by mouth at bedtime 30 tablet 0 ??? docusate sodium (COLACE) 100 MG capsule Take 100 mg by mouth every 12 hours ??? escitalopram (LEXAPRO) 20 MG tablet Take 1 (one) tablet by mouth once daily 30 tablet 2 ??? fluticasone propionate (FLONASE) 50 MCG/ACT nasal spray [place] 2 (two) sprays into each nostril once daily 1 Each 0 ??? folic acid (FOLVITE) 1 MG tablet Take 1 (one) tablet by mouth once daily 30 tablet 0 ??? lacosamide (VIMPAT) 200 MG tablet Take 1 (one) tablet by mouth 2 times daily 180 tablet 3 ??? multivitamin daily tablet Take 1 (one) tablet by mouth once daily 30 tablet 0 ??? SYMBICORT 160-4.5 MCG/ACT inhaler Inhale 2 puffs by mouth 2 times daily ??? thiamine (VITAMIN B-1) 100 MG tablet Take 1 (one) tablet by mouth once daily 30 tablet 0 ??? zonisamide (ZONEGRAN) 100 MG capsule Take 5 (five) capsules by mouth at bedtime Reasons: Focal Epilepsy 450 capsule 3 Current Facility-Administered Medications Medication Dose Route Frequency Provider Last Rate Last Admin ??? ARIPiprazole ER (Abilify Maintena) prefilled syringe 300 mg 300 mg Intramuscular q28 days Venkata Glez MD 300 mg at 06/15/21 1328 BP 112/68 Pulse 87 Temp 98.6 ??F (37 ??C) (Oral) Ht 5' 5 (1.651 m) Wt 150 lb 9.6 oz (68.3 kg) SpO2 98% BMI 25.06 kg/m2 Awake, alert, CN: Extraocular movements intact Motor: Moves all extremities symmetrically Diagnosis: Chronic migraine without aura,intractable, Without status migrainosus Administer Botox for chronic migraine today. See procedure note for details. Follows in MS clinic and Epilepsy clinic. Nurse Dilma Gruber assisted in Botox administration. I was present and supervised entire procedure. documented in this encounter Procedure Notes * Mckayla Haywood MD - 07/13/2021 10:29 AM CDTAssociated Order(s): PROC INJECTION - BOTOX Procedure(s): PA CHEMODENERV MUSC MIGRAINE Pre-Procedure Diagnose(s): Intractable chronic 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 without status migrainosus Post-Procedure Diagnose(s): Intractable chronic 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 without status migrainosus ??Botox Procedure Note Patient's identity confirmed by having patient say first and last name, and date of . Diagnosis: Chronic migraine Procedure code: [id number] History: Baseline number of headaches per month:30 Current headaches per month:5 while on botox, However, off 3 month schedule. Number of headache hours per day (baseline): 12 Number of headache hour per day (current): 1 while on botox. Associated symptoms (baseline): Moderate to severe pain, nausea, vomiting, photophobia, phonophobia. Associated symptoms (current): Moderate pain, nausea, photophobia, phonophobia. The patient has had significant benefit from Botox with a 50% reduction in headache frequency and severity. Current migraine prophylactic medications: Current migraine abortive treatments: Date of last injection: 02/14/2021 (off 3 month schedule) Duration of benefit: [...] treatment. Ordered 200 units for next visit. documented in this encounter Plan of Treatment Upcoming Encounters Date Type Department Care Team (Late st Contact Info) Description 04/04/2024 8:30 AM DIETETIC TECH Office Visit [facility] - Dermatology [address] [place] [address], [place] [phone] Marlys Zaragoza MD [address] [place] [address] 3 [place] [phone] 09/03/2024 9:00 AM CDT Office Visit [facility] - Neurology [address] [place] [address], [place] [phone] Melissa Crook, CHEMICAL MANAGER-COMMUNITY CHEST OFFICER [address] [place] [phone] documented as of this encounter Procedures Procedure Name Priority Date/Time Associated Diagnosis Comments PA CHEMODENERV MUSC MIGRAINE Routine 07/13/2021 10:29 AM CDT Intractable chronic 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 without status migrainosus documented in this encounter Results * PA CHEMODENERV MUSC MIGRAINE (07/13/2021 10:29 AM CDT) Narrative Mckayla Haywood MD - 07/13/2021 10:29 AM CDT Mckayla Haywood MD ? 07/13/2021 12:30 PM ??Botox Procedure Note Patient's identity confirmed by having patient say first and last name, and date of . Diagnosis: Chronic migraine Procedure code: 23923 History: Baseline number of headaches per month:30 [...] 200 Units, Intramuscular, ONCE, 1 dose, On Sun07/13/21 at 1030 $ Given 07/13/2021 12:25 PM CDT 200 Units Head documented in this encounter Care Teams Radio Engineering Teacher Relationship Specialty Start Date End Date Lauren Saba, LISETTE-COMMUNITY CHEST OFFICER [address] [place] [phone] PCP - General 01/14/18 05/10/23 documented as of this encounter
--- OUTSIDE RECORDS SUMMARY | 2024-03-22 16:37 | XMS_ITS | Encounter Summary ---
Author Organization [facility] Health Address [address] [place] [address] Care Team Providers Care Rn Registry Name Role Phone Lauren Saba Jose Eduardo KNOX-METAL BENDING MACHINE OPERATOR Primary Care Provider Reason for Visit * Reason Onset Date Comments Medication Problem 02/02/2022 Encounter Details Date Type Department Care Team (Late st Contact Info) Description 02/02/2022 Telephone [facility] [address] [facility], [place] [address] Markus Cabral MD [address] [place] [address] Medication Problem Social History Tobacco Use Types [...] Telephone Encounter - Melinda Espinoza, RN - 02/02/2022 2:08 PM CST Spoke to patient and pharmacy on 02/01/22. Patient received partial fill of vimpat due to pharmacy need to order. Patient was sent message to contact pharmacy for partial refill as there are no insurance issues or order issues. RION ANALYST * Telephone Encounter - Angely Robin - 02/02/2022 11:21 AM CST Current Provider name:TIRSO Reason for call: HAS QUESTIONS ON THE SEIZURE MEDICATION THAT SHE IS TAKING AND WOULD LIKE TO SPEAK TO SPEAK TO SOMEONE Patient Call Back number: [phone] RION ANALYST documented in this encounter Plan of Treatment Upcoming Encounters Date Type Department Care Team (Late st Contact Info) Description 04/04/2024 8:30 AM HYPERION ANALYST [facility] [address] [place] [address] [place] [phone] Marlys Zaragoza MD [address] [facility] 3L [place] [phone] 09/03/2024 9:00 AM CDT Office Visit [facility] - [facility] [address] [facility], [place] [phone] Melissa Crook APRN-NAIF [address] [place] [phone] documented as of this encounter Visit Diagnoses Not on filedocumented in this encounter Care Teams Rn Registry Relationship Specialty Start Date End Date Lauren Saba APRN-METAL BENDING MACHINE OPERATOR [address] [place] [phone] PCP - General 01/14/18 05/10/23 documented as of this encounter
--- OUTSIDE RECORDS SUMMARY | 2024-03-22 16:37 | XMS_ITS | Encounter Summary ---
Author Organization [facility] Health Address [address] [facility] [place] [address] Care Team Providers Care Wound Specialist Name Role Phone Lauren Saba Jose Eduardo KNOX-TAX ACCOUNTING MANAGER Primary Care Provider Reason for Visit * Reason Onset Date Comments Medication Issue 02/01/2022 Encounter Details Date Type Department Care Team (Late st Contact Info) Description 02/01/2022 Telephone [facility] [address] [place] [address] Aliza Quinones MD [address] [place] [address] Medication Issue Social History Tobacco Use Types [...] encounter Miscellaneous Notes * Telephone Encounter - Aliza Quinones MD - 02/01/2022 6:12 PM CST Received a call from the patient that her pharmacy does not have Vimpat in stock. I called her pharmacy to confirm. Called the patient back and requested her to call the pharmacies near her to see which one has Vimpat in stock and I will prescribe it to that pharmacy. ET MAKER documented in this encounter Plan of Treatment Upcoming Encounters Date Type Department Care Team (Late st Contact Info) Description 04/04/2024 8:30 AM BASKET MAKER Office Visit [facility] - Dermatology [address] [place] [address], [place] [address] Marlys Zaragoza MD [address] [place] [address] 3 [place] [address] 09/03/2024 9:00 AM CDT Office Visit [facility] - Neurology [address] [place] [address], [facility] [place] [address] Melissa Crook, GRAPHIC ARTS INSTRUCTOR-TAX ACCOUNTING MANAGER [address] [place] [address] documented as of this encounter Visit Diagnoses Not on filedocumented in this encounter Care Teams Wound Specialist Relationship Specialty Start Date End Date Lauren Saba APRN-CNP [address] [place] [phone] PCP - General 01/14/18 05/10/23 documented as of this encounter
--- OUTSIDE RECORDS SUMMARY | 2024-03-22 16:37 | XMS_ITS | Encounter Summary ---
Author Organization [facility] Health Address [address] [facility] [place] [address] Care Team Providers Care Tie Tape Machine Operator Name Role Phone Lauren Saba APRN-NAIF Primary Care Provider A, Unknown Practice Primary Care Provider [phone] Unknown, Provider Primary Care Provider Joy Garvey PA-C Primary Care Provider [phone] Reason for Visit * Reason Onset Date Comments Order 04/12/2022 PT ORDERS TO BE FAXED TO [phone] Encounter Details Date Type Department Care Team (Late st Contact Info) Description 04/12/2022 Telephone [facility] [address] [facility], [facility] [place] [address] Markus Cabral MD [address] [place] [address] Order (PT ORDERS TO BE FAXED TO [phone]) Social History Tobacco Use Types Packs/Day Years [...] encounter Miscellaneous Notes * Telephone Encounter - Bud Freitas - 04/12/2022 3:00 PM CST PT WOULD LIKE FOR (PT) ORDERS TO BE FAXED TO [facility] @ [phone].PT STATES THEY SAY THEY HAVE NOT RECEIVED THESE ORDERS OF YET. THANKS UCE SERVICE TEAM MEMBER documented in this encounter Plan of Treatment Upcoming Encounters Date Type Department Care Team (Late st Contact Info) Description 04/04/2024 8:30 AM PRODUCE SERVICE TEAM MEMBER Office Visit [facility] - Dermatology [address] [place] [address], [place] [address] Marlys Zaragoza MD [address] [address] 3 [place] [address] 09/03/2024 9:00 AM CDT Office Visit [facility] [address] [facility] [place] [address] Melissa Crook APRN-TEA BAG PACKER [address] [place] [phone] documented as of this encounter Visit Diagnoses Not on filedocumented in this encounter Care Teams Tie Tape Machine Operator Relationship Specialty Start Date End Date Lauren Saba, ERP BUSINESS ANALYST-TEA BAG PACKER [address] [place] [address] PCP - General 01/14/18 05/10/23 A, Unknown Practice [address] [place], [place] [phone] PCP - General 05/11/23 09/10/23 Unknown, Provider PCP - General 09/11/23 01/28/24 Joy Sheppard PA-C [address] [place] [phone] PCP - General 01/29/24 documented as of this encounter
--- OUTSIDE RECORDS SUMMARY | 2024-03-22 16:37 | XMS_ITS | Encounter Summary ---
Author Organization [facility] Health Address [address] [facility] [place] [address] Care Team Providers Care Slicing Machine Operator/Tender Name Role Phone Laruen Saba Jose Eduardo KNOX-CEMENT SPRAYER HELPER Primary Care Provider Reason for Visit * Reason Onset Date Comments MEDICATION REFILL 05/10/2021 Encounter Details Date Type Department Care Team (Late st Contact Info) Description 05/10/2021 Refill [facility] [address] [facility], Replaced By [facility] [place] [phone] Markus Cabral MD [address] [place] [phone] MEDICATION REFILL Social History Tobacco Use Types Packs/Day Years Used Date Smoking Tobacco: Never Smokeless Tobacco: Never Alcohol Use Standard Drinks/Week Comments Yes 1 (1 standard drink = 0.6 oz pure alcohol) socially- once- twice a month, jeffry AUDIT-C Answer Date Recorded Q1: How often do you have a drink containing alc ohol? Never 05/13/2021 Q2: How many drinks containi ng alcohol do you have on a typical day when you are drinking? 7 to 9 05/13/2021 Q3: How often do you have six or more drinks on one occasion? Never 05/13/2021 Sex and Gender Information Value Date Recorded Sex Assigned at Female 06/22/2023 9:58 AM CDT Gender Identity Female 06/22/2023 9:58 AM CDT Sexual Orientation Straight 06/22/2023 9: 58 AM CDT documented as of this encounter Plan of Treatment Upcoming Encounters Date Type Department Care Team (Late st Contact Info) Description 04/04/2024 8:30 AM PASTORAL ASSISTANT [facility] [address] [place] [address], [place] [phone] Marlys Zaragoza MD [address] [place] [address] 3 [place] [phone] 09/03/2024 9:00 AM CDT Office Visit [facility] [address] [place] [address], [place] [phone] Melissa Crook APRN-NAIF [address] [place] [phone] documented as of this encounter Visit Diagnoses Not on filedocumented in this encounter Care Teams Slicing Machine Operator/Tender Relationship Specialty Start Date End Date Lauren Saba APRN-CEMENT SPRAYER HELPER 9 [place] [address] PCP - General 01/14/18 05/10/23 documented as of this encounter
--- OUTSIDE RECORDS SUMMARY | 2024-03-22 16:37 | XMS_ITS | Encounter Summary ---
Author Organization [facility] Health Address [address] [facility] [place] [address] Care Team Providers Care Hardwood Floor Installer Name Role Phone Lauren Saba Jose Eduardo KNOX-SUPERVISOR WOOD ROOM Primary Care Provider Reason for Visit * Oncology Prior Authorization (Routine) - Closed Specialty Diagnoses / Procedures Referred By Contdanny t Referred To Contact Diagnoses MS (multiple sclerosis) (HCC) Markus Cabral MD [address] [place] [address] [facility] [address] [place] [address] Referral ID Status Reason Start Date Expiration Date Visits Re quested Visits Authorized [id number] Closed 12/19/2021 12/19/2022 1 1 Encounter Details Date Type Department Care Team (Latest Contact Info) Description 06/21/2022 9:00 AM CDT Procedure visit [facility] [place] [address] [place] [address] MS (multiple sclerosis) (HCC) Social History Tobacco [...] Date Recorded PHQ2 TOTAL SCORE 0 03/02/2022 [facility] [...] Sign Reading Time Taken Comments Blood Pressure 106/70 06/21/2022 10:00 AM CDT Pulse 73 06/21/2022 10:00 AM CDT Temperature 36.7 ??C (98.1 ??F) 06/21/2022 10:00 AM C DT Respiratory Rate 16 06/21/2022 10:00 AM CDT Oxygen Saturation 98% 06/21/2022 10:00 AM CDT Inhaled Oxygen Concentration - - Weight 67.6 kg (149 lb) 06/21/2022 10:00 AM CDT Height 165.1 cm (5' 5 ) 06/21/2022 10:00 AM CDT Body Mass Index 24.79 06/21/2022 10:00 AM CDT documented in this encounter Functional [...] st Contact Info) Description 04/04/2024 8:30 AM INCOME TAX ADJUSTER Office Visit [facility] Derm[facility]ology [address] [place] [address], [facility] [place] [phone] Marlys Zaragoza MD [address] [place] [address] 3 [place] [phone] 09/03/2024 9:00 AM CDT Office Visit [facility] [address] [place] [address] [facility] [place] [address] Melissa Crook, TEACHER DRAMATICS-SUPERVISOR WOOD ROOM [address] [place] [address] documented as of this encounter Visit Diagnoses Diagnosis MS (multiple sclerosis) (HCC)- Primary Multiple sclerosis documented in this encounter Administered Medications Inactive Administered Medications - up to 3 most recent administrations Medication Order MAR Action Action Date Dose Rate Site acetaminophen (Tylenol) tablet 650 mg 650 mg, Oral, ONCE, 1 dose, On Sun06/21/22 at 1015, Maximum allowable Acetaminophen amount = 4 Grams [...] be documented in the MAR. $ Given 06/21/2022 10:15 AM CDT 650 mg diphenhydrAMINE (Benadryl) capsule 50 mg 50 mg, Oral, ONCE, 1 dose, On Sun06/21/22 at 1015, Use IV if patient not tolerating PO Administer pre-medications 30-60 minutes prior to ocrelizumab. $ Given 06/21/2022 10:15 AM CDT 50 mg methylPREDNISolone sod succ (SOLU-Medrol) injection 100 mg 100 mg, Intravenous, ONCE, 1 dose, On Sun06/21/22 at 1015, Reconstituted solution may be given via direct IV injection over 2-5 minutes without further dilution. Administer pre-medications 30-60 minutes prior to ocrelizumab. $ Given 06/21/2022 10:20 AM CDT 100 mg ocrelizumab (Ocrevus) 600 mg in 0.9% NaCl IV 520 mL infusion 600 mg, at 0-200 mL/hr, Intravenous, CONTINUOUS, Starting on Sun06/21/22 at 1115, Until Sun06/21/22 at 1458, For subsequent infusion if previously tolerated Begin [...] 0.22 micron in-line filter $ New Bag/Syringe 06/21/2022 10:51 AM CDT 600 mg 100 mL/hr documented in this encounter Care Teams Hardwood Floor Installer Relationship Specialty Start Date End Date Lauren Saba, LISETTE-SUPERVISOR WOOD ROOM 9 [place] [address] PCP - General 01/14/18 05/10/23 documented as of this encounter
--- OUTSIDE RECORDS SUMMARY | 2024-03-22 16:37 | XMS_ITS | Encounter Summary ---
Author Organization [facility] Health Address [address] [place] [address] Care Team Providers Care Mens Locker Room Attendant Name Role Phone Lauren Saba Jose Eduardo KNOX-HUMAN SERVICES PROFESSIONAL Primary Care Provider Reason for Visit * Reason Comments Refill Request Encounter Details Date Type Department Care Team (Late st Contact Info) Description 01/20/2022 Refill [facility] [address] [facility], [facility] [place] [phone] Markus Cabral MD [address] [place] [address] Refill Request Social History Tobacco Use Types [...] Telephone Encounter - Autumn Ramey MA - 01/23/2022 8:32 AM CST Refill Request CRISTELA: 01/18/2022 NOV scheduled: 04/06/2022 LRF: 06/29/2021 Qty Disp: 180 # of refills: 3 TER documented in this encounter Plan of Treatment Upcoming Encounters Date Type Department Care Team (Late st Contact Info) Description 04/04/2024 8:30 AM PAINTER Office Visit [facility] Dermatology [address] [place] [address], [place] [phone] Marlys Zaragoza MD [address] [place] [address] 3 [place] [phone] 09/03/2024 9:00 AM CDT Office Visit [facility] [address] [place] [address], [place] [phone] Melissa Crook, LISETTE-HUMAN SERVICES PROFESSIONAL [address] [place] [address] documented as of this encounter Visit Diagnoses Diagnosis Seizures (HCC) Other convulsions documented in this encounter Care Teams Mens Locker Room Attendant Relationship Specialty Start Date End Date Lauren Saba APRN-CNP 9 [place] [address] PCP - General 01/14/18 05/10/23 documented as of this encounter
--- OUTSIDE RECORDS SUMMARY | 2024-03-22 16:37 | XMS_ITS | Encounter Summary ---
Author Organization [facility] Health Address [address] [facility] [place] [address] Care Team Providers Care Head Start Assistant Teacher Name Role Phone Lauren Saba Jose Eduardo KNOX-YIELD ENGINEER Primary Care Provider Reason for Visit * Reason Comments Multiple Sclerosis Encounter Details Date Type Department Care Team (Late st Contact Info) Description 10/03/2021 3:00 PM CDT Office Visit [facility] Neurology [address] [place] [phone] Markus Cabral MD [address] [place] [address] MS (multiple sclerosis) ([facility]) (Primary Dx); Intractable migraine without status migrainosus, unspecified migraine type; High risk medications (not anticoagulants) long-term use Social History Tobacco Use Types Packs/Day Years [...] Sign Reading Time Taken Comments Blood Pressure 111/76 10/03/2021 2:52 PM CDT Pulse 90 10/03/2021 2:52 PM CDT Temperature 36.5 ??C (97.7 ??F) 10/03/2021 2:52 PM CD T Respiratory Rate - - Oxygen Saturation 98% 10/03/2021 2:52 PM CDT Inhaled Oxygen Concentration - - Weight 69.6 kg (153 lb 8 oz) 10/03/2021 2:52 PM CDT Height 165.1 cm (5' 5 ) 10/03/2021 2:52 PM CDT Body Mass Index 25.54 10/03/2021 2:52 PM CDT documented in this encounter Functional [...] this encounter Patient Instructions * Patient Instructions* Priscilla Leal MD - 10/03/2021 3:33 PM CDT - continue Ocrevus infusions - continue zonisamide and lacosamide for seizure - continue physical therapy for your right foot - please discuss concerns about guardianship with psychiatry/neuropsychology - follow up in 6 months documented in this encounter Progress Notes * Priscilla Leal MD - 10/03/2021 3:00 PM CDT Neurology Progress Note Patient: Meredith Frost Room: Room/bed info not found Age: [age] year old Subjective: Meredith Frost is a 40 year old female who is being seen for follow up regard multiple sclerosis. HPI by Dr. Cabral: She had her first symptoms at around 2006.?Has been on Rebif/Tysabri/Gilenya before.?She has been on Ocrevus since 2020,??and before that for few years on rituximab.?Has advanced MS with extensive lesion burden and brain atrophy,??and resultant major neuro cognitive decline.?She is disabled at baseline from her neurocognitive status.? 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 In 2020 had a couple of admissions at outside hospital, and Vimpat was added in addition to zonisamide. ?? Between 02/2021 - 06/2021, Pt suffered a fall that resulted in right ankle and tibial fracture, required metallic cast x 3 months. Also had 2 admission to psych for worsening paranoia. During hospitalization, she noted right foot drop and required soft ankle brace. Overnight: Last seen 06/29/2021, at which time Pt endorsed right foot drop, new since prior visit. EMG done 08/04/2021 showed right common peroneal neuropathy + right L5/S1 poyradiculopathy. Today, Pt reports resolution of foot drop x 1 month, but continues to wear right ankle AFO when out due to fear. She states she does not wear it when at home. Continue to go to PT every Sunday, which has helped significantly per Pt. Denies any infections since last visit. Denies falls. Denies dysphagia, diplopia. Denies seizures since last visit, on zonisamide 500mg nightly, lacosamide 200mg BID. Overall doing well, does endorseconcerns about guardianship. Last pertinent labs obtained 06/29/2021. WBC elevated at 17, otherwise CBC unremarkable. CMP ok. IgGminimally low at 753. Last MRI 11/08/2020 at which time MRI brain and C spine stable since 09/2019 Objective: BP 111/76 Pulse 90 Temp 97.7 ??F (36.5 ??C) (Oral) Ht 5' 5 (1.651 m) Wt 153 lb 8 oz (69.6 kg) SpO2 98% Body mass index is 25.54 kg/m??. Exam: Cortical Function Mental Status Awake, alert, follows commands Orientation Person, place, time, and situation Language Fluency intact, comprehension intact, repetition intact Visual De Intact bilaterally to confrontation Neglect No visual neglect noted, no tactile neglect noted Cranial Nerves II PERRL Fundoscopic exam not performed. VIII Hearing is intact bilaterally to finger rub. III/IV/ Extraocular muscles intact. No diplopia, ptosis, nystagmus or convergence abnormalities noted. IX/X Palate elevated symmetrically without phonation abnormalities noted. V Facial sensation symmetric to light touch and intact bilaterally. Corneal reflex not examined. XIHead turning and shoulder shrug are intact. VII No facial palsy noted. XII Tongue is midline with normal movements and no atrophy noted. Motor Function Movement No abnormalities noted Bulk No abnormalities noted Tone spasticity at bilateral ankles Proximal Upper Distal Upper Proximal Lower Distal Lower Right 5/5 5/5 5/5 5/5 Left 5/5 5/5 5/5 5/5 Muscle Stretch Reflexes BI BR PAT ACH TOES Right 3 3 3 4: 1-2 beats clonus Down Left 3 3 3 4: 3-5 beats clonus Down Sensory Light Touch Symmetric and intact bilaterally Cerebellar FNF Right Intact Left Intact Gait timed 25ft walk - 6.5 seconds Labs: Reviewed. Assessment: Pt is a 40yo F who presents for follow up on multiple sclerosis. She has relapse remitting form MS with extensive lesion burden and brain atrophy, complicated by major cognitive dysfunction and epilepsy due to MS. Comorbid psychiatric disorder managed by psychiatry and neuropsychology. She is clinically and radiologically stable on Ocrevus, with last infusion in 06/2021. Resolved right foot drop is 2/2 right common peroneal neuropathy and L5/S1 radiculopathy due to prolonged casting after fracture. Plan: - continue Ocrevus every 6 months - continue PT for right foot drop, which is largely resolved - will need to monitor any signs of frequent infections given minimally low IgG, will follow up at next visit - continue zonisamide 500mg nightly and lacosamide 200mg BID for epilepsy management - follow up in 6 months - will repeat imaging and maintenance labs at that time Discussed Assessment and Plan with Attending Physician, Dr. Marianna Leal MD Neurology Resident I have examined the patients and discussed the findings of my examination with the patient and the resident. I agree with the resident regarding the assessment and plan of care. Coding Rationale New or est? Established Patient Highest problem complexity: 1 acute or chronic illness or injury that poses a threat to life or bodily function Highest level of risk: High Suggested code: 89113 documented in this encounter Plan of Treatment Upcoming Encounters Date Type Department Care Team (Late st Contact Info) Description 04/04/2024 8:30 AM GEAR TESTER Office Visit [facility] - Dermatology [address] [place] [address], [place] [phone] Marlys Zaragoza MD [address] [place] [address] 3 [place] [address] 09/03/2024 9:00 AM CDT Office Visit [facility] - Neurology [address] [place] [address] [place] [address] Melissa Crook APRN-YIELD ENGINEER [address] [place] [phone] documented as of this encounter Visit Diagnoses Diagnosis MS (multiple sclerosis) (HCC)- Primary Multiple sclerosis Intractable migraine without status migrainosus, unspecified migraine type High risk medications (not anticoagulants) long-term use Encounter for long-term (current) use of other medications documented in this encounter Care Teams Head Start Assistant Teacher Relationship Specialty Start Date End Date Lauren Saba APRN-YIELD ENGINEER [address] [place] [address] PCP - General 01/14/18 05/10/23 documented as of this encounter
--- OUTSIDE RECORDS SUMMARY | 2024-03-22 16:37 | XMS_ITS | Encounter Summary ---
Author Organization [facility] Health Address [address] [place] [address] Care Team Providers Care Tire Specialist Name Role Phone Lauren Saba Jose Eduardo KNOX-MICROELECTRONICS ASSEMBLER Primary Care Provider Encounter Details Date Type Department Care Team (Late st Contact Info) Description 08/29/2021 Orders Only [facility] [address] [facility], [place] [phone] Markus Cabral MD [address] [place] [address] MS (multiple sclerosis) (HCC) ; Foot drop, right; Neurologic gait dysfunction Social History Tobacco Use Types Packs/Day Years [...] st Contact Info) Description 04/04/2024 8:30 AM BRIM EDGE TRIMMER Office Visit [facility] Dermatology [address] [place] [address], [place] [address] Marlys Zaragoza MD [address] [place] [address] 3 [place] [address] 09/03/2024 9:00 AM CDT Office Visit [facility] [address] [place] [address] [place] [phone] Melissa Crook APRN-MICROELECTRONICS ASSEMBLER [address] [place] [address] documented as of this encounter Visit Diagnoses Diagnosis MS (multiple sclerosis) (HCC)- Primary Multiple sclerosis Foot drop, right Other acquired deformity of ankle and foot Neurologic gait dysfunction Abnormality of gait documented in this encounter Care Teams Tire Specialist Relationship Specialty Start Date End Date Lauren Saba APRN-MICROELECTRONICS ASSEMBLER [address] [place] [address] PCP - General 01/14/18 05/10/23 documented as of this encounter
--- OUTSIDE RECORDS SUMMARY | 2024-03-22 16:37 | XMS_ITS | Encounter Summary ---
Author Organization [facility] Health Address [address] [facility] [place] [address] Care Team Providers Care Groundskeeping Maintenance Worker Name Role Phone Lauren Saba Jose Eduardo KNOX-VP [employer]LOBAL MARKETING SOLUTIONS Primary Care Provider Reason for Visit * Oncology Prior Authorization (Routine) - Closed Specialty Diagnoses / Procedures Referred By Contdanny t Referred To Contact Diagnoses MS (multiple sclerosis) (HCC) Markus Cabral MD [address] [place] [address] [facility] [address] [place] [address] Referral ID Status Reason Start Date Expiration Date Visits Re quested Visits Authorized [id number] Closed 12/19/2021 12/19/2022 1 1 Encounter Details Date Type Department Care Team (Latest Contact Info) Description 12/21/2021 9:00 AM CDT Procedure visit [facility] [place] [address] [place] [address] MS (multiple sclerosis) (HCC) Social History Tobacco Use Types Packs/Day Years Used Date Smoking Tobacco: Never Smokeless Tobacco: Never Tobacco Cessation:Counseling Given: No Alcohol Use Standard Drinks/Week Comments Yes 8 [...] Sign Reading Time Taken Comments Blood Pressure 113/69 12/21/2021 8:42 AM CDT Pulse 73 12/21/2021 8:42 AM CDT Temperature 36.6 ??C (97.9 ??F) 12/21/2021 8:42 AM CD T Respiratory Rate 16 12/21/2021 8:42 AM CDT Oxygen Saturation 99% 12/21/2021 8:42 AM CDT Inhaled Oxygen Concentration - - Weight 69.9 kg (154 lb) 12/21/2021 8:42 AM CDT Height 165.1 cm (5' 5 ) 12/21/2021 8:42 AM CDT Body Mass Index 25.63 12/21/2021 8:42 AM CDT documented in this encounter Functional [...] st Contact Info) Description 04/04/2024 8:30 AM CABINET MAKER Office Visit [facility] - Dermatology [address] [place] [address], [place] [address] Marlys Zaragoza MD [address] [place] [address] [address] [place] [address] 09/03/2024 9:00 AM CDT Office Visit [facility] [address] [place] [address], [place] [address] Melissa Crook APRN-VP [employer] [address] [place] [address] documented as of this encounter Visit Diagnoses Diagnosis MS (multiple sclerosis) (HCC)- Primary Multiple sclerosis documented in this encounter Administered Medications Inactive Administered Medications - up to 3 most recent administrations Medication Order MAR Action Action Date Dose Rate Site acetaminophen (Tylenol) tablet 650 mg 650 mg, Oral, ONCE, 1 dose, On Sun12/21/21 at 0900, Maximum allowable Acetaminophen amount = 4 Grams [...] be documented in the MAR. $ Given 12/21/2021 8:59 AM CDT 650 mg diphenhydrAMINE (Benadryl) capsule 50 mg 50 mg, Oral, ONCE, 1 dose, On Sun12/21/21 at 0900, Use IV if patient not tolerating PO Administer pre-medications 30-60 minutes prior to ocrelizumab. $ Given 12/21/2021 8:59 AM CDT 50 mg methylPREDNISolone sod succ (SOLU-Medrol) injection 100 mg 100 mg, Intravenous, ONCE, 1 dose, On Sun12/21/21 at 0900, Reconstituted solution may be given via direct IV injection over 2-5 minutes without further dilution. Administer pre-medications 30-60 minutes prior to ocrelizumab. $ Given 12/21/2021 8:59 AM CDT 100 mg ocrelizumab (Ocrevus) 600 mg in 0.9% NaCl IV 520 mL infusion 600 mg, at 0-200 mL/hr, Intravenous, CONTINUOUS, Starting on Sun12/21/21 at 0945, Until Sun12/21/21 at 1408, For subsequent infusion if previously tolerated Begin [...] 0.22 micron in-line filter $ New Bag/Syringe 12/21/2021 9:30 AM CDT 600 mg 100 mL/hr documented in this encounter Care Teams Groundskeeping Maintenance Worker Relationship Specialty Start Date End Date Lauren Saba, SUBSTANCE ADDICTION COORDINATOR-VP [employer] [address] [place] [phone] PCP - General 01/14/18 05/10/23 documented as of this encounter
--- OUTSIDE RECORDS SUMMARY | 2024-03-22 16:37 | XMS_ITS | Encounter Summary ---
Author Organization [facility] Address [address] [place] [address] Care Team Providers Care Customs Compliance Analyst Name Role Phone Lauren Saba APRN-MODEL DRESSER Primary Care Provider A, Unknown Practice Primary Care Provider [phone] Unknown, Provider Primary Care Provider Joy Garvey PA-C Primary Care Provider [phone] Reason for Visit * Reason Onset Date Comments Medication Prior Auth Request 08/22/2021 Encounter Details Date Type Department Care Team (Late st Contact Info) Description 08/22/2021 Telephone [facility] [address] [place] [address], [facility] [place] [phone] Marlys Zaragoza MD [address] [place] [address] [address] [place] [phone] Medication Prior Auth Request Social History Tobacco [...] encounter Miscellaneous Notes * Telephone Encounter - Cinthya Pantoja - 08/22/2021 6:13 PM CDT Pt called and left a vm wanting to check the status of the PA for her tretinoin (RETIN-A) 0.05 % cream. Please advise documented in this encounter Plan of Treatment Upcoming Encounters Date Type Department Care Team (Late st Contact Info) Description 04/04/2024 8:30 AM COLLAR RUNNER Office Visit [facility] Dermatology [address] [place] [address], [place] [phone] Marlys Zaragoza MD [address] [place] [address] 3 [place] [phone] 09/03/2024 9:00 AM CDT Office Visit [facility] - Neurology [address] [facility], [place] [address] Melissa Crook APRN-MODEL DRESSER [address] [place] [address] documented as of this encounter Visit Diagnoses Not on filedocumented in this encounter Care Teams Customs Compliance Analyst Relationship Specialty Start Date End Date Lauren Saba, LISETTE-MODEL DRESSER [address] [place] [phone] PCP - General 01/14/18 05/10/23 A, Unknown Practice [address] [place] [phone] PCP - General 05/11/23 09/10/23 Unknown, Provider PCP - General 09/11/23 01/28/24 Joy Sheppard PA-C [facility] [place] [phone] PCP - General 01/29/24 documented as of this encounter
--- OUTSIDE RECORDS SUMMARY | 2024-03-22 16:37 | XMS_ITS | Encounter Summary ---
Author Organization [facility] Health Address [address] [facility] [place] [address] Care Team Providers Care Refrigerating Engineer Head Name Role Phone Lauren Saba Jose Eduardo KNOX-COOK RAILROAD Primary Care Provider Reason for Visit * Reason Comments Establish Care Renal US F/U Encounter Details Date Type Department Care Team (Late st Contact Info) Description 11/04/2021 8:30 AM CDT Office Visit [facility] [address] [facility], [place] [address] Cheng Cotter MD Neurogenic bladder (Primary Dx) Social History Tobacco Use Types [...] Sign Reading Time Taken Comments Blood Pressure 113/68 11/04/2021 8:31 AM CDT Pulse 91 11/04/2021 8:31 AM CDT Temperature 36.8 ??C (98.2 ??F) 11/04/2021 8:31 AM CD T Respiratory Rate - - Oxygen Saturation 100% 11/04/2021 8:31 AM CDT Inhaled Oxygen Concentration - - Weight 70.5 kg (155 lb 6.4 oz) 11/04/2021 8:31 A M CDT Height 165.1 cm (5' 5 ) 11/04/2021 8:31 AM CDT Body Mass Index 25.86 11/04/2021 8:31 AM CDT documented in this encounter [...] this encounter Patient Instructions * Patient Instructions* Cheng Cotter MD - 11/04/2021 9:19 AM CDT Follow up with Dr. Cotter in one year. documented in this encounter Progress Notes * Cheng Cotter MD - 11/04/2021 9:20 AM CDT [facility] Division of Urologic Surgery Cheng Cotter MD Date of Visit: 11/04/2021 Patient Name: Meredith Frost : 1980 Medical Record: [id number] Contact (home) Age: [age] year old Sex: female Referring Physician: Alesia Vazquez, HOTEL SERVER-COOK RAILROAD [address] [place] [address] Chief Complaint: Neurogenic bladder History of Present Illness: 40 y.o. female with hx of MS, here for follow up on her NGB. UDS showed hypersensitivity and low contractility (PVR at that time was 600). Has subsequently improved with pvr of 183 at last visit. Hassome overactivity sx which had improved with myrbetriq previously. We tried to start her on this at last visit and she was going to follow up with a pvr today, however she states her pharmacist would not give her the medicine. Normally pt comes with a caregiver but she did not today. No new urologic complaints. No recent retention. Past Medical History; Past Medical History: Diagnosis Date ??? Asthma ??? Migraines ??? MS (multiple sclerosis) ??? Seizures Past Surgical History: Past Surgical History: Procedure Laterality Date ??? KNEE ARTHROPLASTY Right ??? ID CHEMODENERV MUSC MIGRAINE 07/18/2017 ??? ID CHEMODENERV MUSC MIGRAINE 10/17/2017 ??? ID CHEMODENERV MUSC MIGRAINE 01/14/2018 ??? ID CHEMODENERV MUSC MIGRAINE 04/15/2018 ??? ID CHEMODENERV MUSC MIGRAINE 07/22/2018 ??? ID CHEMODENERV MUSC MIGRAINE 10/21/2018 ??? ID CHEMODENERV MUSC MIGRAINE 10/13/2019 ??? ID CHEMODENERV MUSC MIGRAINE 01/12/2020 ??? ID CHEMODENERV MUSC MIGRAINE 04/19/2020 ??? ID CHEMODENERV MUSC MIGRAINE 07/21/2020 ??? ID CHEMODENERV MUSC MIGRAINE 11/01/2020 ??? ID CHEMODENERV MUSC MIGRAINE 02/14/2021 ??? ID CHEMODENERV MUSC MIGRAINE 07/13/2021 ??? ID CHEMODENERV MUSC MIGRAINE 10/21/2021 ??? Tonsillectomy Bilateral Current Medications: Current Outpatient Medications Medication Sig Dispense Refill [...] 1 (one) tablet by mouth at bedtime (Patient not taking: No sig reported) 30 tablet 2 ??? docusate sodium (COLACE) [...] fluticasone propionate (FLONASE) 50 MCG/ACT nasal spray Lynn 2 (two) sprays into each nostril once [...] Glez MD 300 mg at 10/07/21 1011 Allergies; Patient has no known allergies. Family History: Family History Problem Relation Name [...] Hemophilia Neg Hx ??? Psoriasis Neg Hx Fam history is noncontributory to this problem. Social History: Social History Socioeconomic History ??? Marital status: Single Spouse name: Not on file ??? Number of children: Not on file ??? Years of education: 16 ??? Highest [...] Social Determinants of Health Financial Resource Strain: Not on file Food Insecurity: Not on file Transportation Needs: Not on file Physical Activity: Not on file Stress: Not on file Social Connections: Not on file Intimate Partner Violence: Not on file Housing Stability: Not on file Review of Systems: See above Physical Exam: Vital Signs: BP 113/68 Pulse 91 Temp 98.2 ??F (36.8 ??C) (Temporal) Ht 5' 5 (1.651 m) Wt 155 lb 6.4 oz (70.5 kg) SpO2 100% Gen - WN, WD female in NAD HEENT - NC/AT, EOMI Chest - normal respiratory rate and effort Abd - nondistended, scaphoid Ext - no c/c/e Skin - no rash/erythema noted, good skin turgor Neuro - normal gait, normal speech, A&Ox3 PVR - 138 by noninvasive bladder scan Diagnosis: NGB Recommendations: Overall stable at this time. Emptying better than when she initially saw me. Discussed trial of anticholinergics but after hearing side effects she declined to try them. May follow up with me in one year, sooner as needed. Will consider renal imaging and bmp at that time for follow up on her NGB ifthese have not been done for other reasons at that point. Pt understands and agrees with plan. 20 min total spent in patient encounter to include review of medical records, assessment and counseling of patient, and documentation of patient visit. Cheng Cotter MD 11/04/2021 9:20 AM documented in this encounter Procedure Notes * Gabrielle Castellanos MA - 11/04/2021 8:58 AM CDTAssociated Order(s): PROC BLADDER SCAN Procedure(s): ID MSR PVR U&/BLADD CAPCTY US NON Pre-Procedure Diagnose(s): Neurogenic bladder [id number] documented in this encounter Plan of Treatment Upcoming Encounters Date Type Department Care Team (Late st Contact Info) Description 04/04/2024 8:30 AM STRATEGIES ANALYST Office Visit [facility] - Dermatology [address] [place] [address], [place] [phone] Marlys Zaragoza MD [address] [place] [address] 3 [place] [phone] 09/03/2024 9:00 AM CDT Office Visit [facility] - Neurology [address] [place] [address], [place] [phone] Melissa Crook, HOTEL SERVER-COOK RAILROAD [address] [place] [phone] documented as of this encounter Procedures Procedure Name Priority Date/Time Associated Diagnosis Comments URINALYSIS AUTO - POINT OF CARE (AMB) [facility] Routine 11/04/2021 9:01 AM CDT Neurogenic bladder ID MSR PVR U&/BLADD CAPCTY US NON Routine 11/04/2021 8:58 AM CDT Neurogenic bladder documented in this encounter Results * URINALYSIS AUTO - POINT OF CARE (AMB) [facility] (11/04/2021 9:01 AM CDT) Glucose UA neg Bilirubin UA POCT neg Ketones UA POCT neg Specific Savannah UA 1.030 Blood Urine POCT 200 Kyrie/uL pH UA 6.0 Protein UA 30 mg/dL Urobilinogen UA 0.2 mg/dL Nitrite UA neg WBC UA 500 Jg/uL Urine URINE / Unknown 11/04/2021 9 :01 AM CDT Cheng Cotter MD LAB - POINT OF CAR E ORDERABLES * ID MSR PVR U&/BLADD CAPCTY US NON (11/04/2021 8:58 AM CDT) Narrative Gabrielle Castellanos MA - 11/04/2021 8:58 AM CDT Gabrielle Castellanos MA ? 11/04/2021 ??9:25 AM [id number] Cheng Cotter MD PROCEDURE/MINOR WHYTE RGICAL ORDERABLES documented in this encounter Visit Diagnoses Diagnosis Neurogenic bladder- Primary Neurogenic bladder, NOS documented in this encounter Care Teams Refrigerating Engineer Head Relationship Specialty Start Date End Date Lauren Saba, HOTEL SERVER-COOK RAILROAD [address] [place] [phone] PCP - General 01/14/18 05/10/23 documented as of this encounter
--- OUTSIDE RECORDS SUMMARY | 2024-03-22 16:37 | XMS_ITS | Encounter Summary ---
Author Organization [facility] Health Address [address] [facility] [place] [address] Care Team Providers Care Solution Professional Name Role Phone WandyLauren Primary Care Provider Reason for Visit * Reason Onset Date Comments Opened In Error 06/14/2022 Encounter Details Date Type Department Care Team (Late st Contact Info) Description 06/14/2022 Telephone [facility] [address] [place] [address] Melissa Crook APRN-CNP [address] [place] [phone] Opened In Error Social History Tobacco Use Types Packs/Day Years [...] st Contact Info) Description 04/04/2024 8:30 AM TWIST TESTER [facility] [address] [place] [address], [place] [phone] Marlys Zaragoza MD [address] [place] [address] [address] [place] [phone] 09/03/2024 9:00 AM CDT Office Visit [facility] - [facility]rology [address] [place] [address] [place] [phone] Melissa Crook APRN-PARKING ANALYST [address] [place] [address] documented as of this encounter Visit Diagnoses Not on filedocumented in this encounter Care Teams Solution Professional Relationship Specialty Start Date End Date Lauren Saba APRN-PARKING ANALYST [address] [place] [phone] PCP - General 01/14/18 05/10/23 documented as of this encounter
--- OUTSIDE RECORDS SUMMARY | 2024-03-22 16:37 | XMS_ITS | Encounter Summary ---
Author Organization [facility] Health Address [address] [place] [address] Care Team Providers Care Property Assessment Monitor Name Role Phone Lauren Saba Jose Eduardo KNOX-SEED CLEANER OPERATOR Primary Care Provider Encounter Details Date Type Department Care Team (Latest Contact Info) Description 05/13/2022 Travel Social History Tobacco Use Types Packs/Day [...] st Contact Info) Description 04/04/2024 8:30 AM FORMING PROCESS LINE WORKER Office Visit [facility] Dermatology [address] [place] [address] [place] [address] Marlys Zaragoza MD [address] [place] [address] [place] [phone] 09/03/2024 9:00 AM CDT Office Visit [facility] - Neurology [address] [place] [phone] Melissa Crook APRN-CNP [facility] [place] [phone] documented as of this encounter Visit Diagnoses Not on filedocumented in this encounter Care Teams Property Assessment Monitor Relationship Specialty Start Date End Date Lauren Saba APRN-SEED CLEANER OPERATOR [address] [place] [phone] PCP - General 01/14/18 05/10/23 documented as of this encounter
--- OUTSIDE RECORDS SUMMARY | 2024-03-22 16:37 | XMS_ITS | Encounter Summary ---
Author Organization [facility] Health Address [address] [facility] [place] [address] Care Team Providers Care Filtration Supervisor Name Role Phone Lauren Saba Jose Eduardo KNOX-OVERHEAD FOREMAN Primary Care Provider Reason for Referral * Neurology (Routine) - Closed Specialty Diagnoses / Procedures Referred By Contac t Referred To Contact Neurology Diagnoses Foot drop, right Procedures EMG WITH NERVE CONDUCTION STUDY Markus Cabral MD [address] [place] [phone] [facility] Eeg/Emg [address] [place] [address] Referral ID Status Reason Start Date Expiration Date Visits Re quested Visits Authorized [id number] Closed 06/29/2021 06/29/2022 1 1 Reason for Visit * Reason Comments Multiple Sclerosis Encounter Details Date Type Department Care Team ([facility] Contact Info) Description 06/29/2021 1:00 PM CDT Office Visit [facility] [address] [facility], [place] [address] Markus Cabral MD [address] [address] Foot drop, right (Primary Dx); MS (multiple sclerosis) (HCC); Seizures (HCC); High risk medications (not anticoagulants) long-term use [...] Sign Reading Time Taken Comments Blood Pressure 116/77 06/29/2021 1:12 PM CDT Pulse 97 06/29/2021 1:12 PM CDT Temperature 36.7 ??C (98 ??F) 06/29/2021 1:12 PM CDT Respiratory Rate - - Oxygen Saturation 98% 06/29/2021 1:12 PM CDT Inhaled Oxygen Concentration - - Weight 68 kg (150 lb) 06/29/2021 1:12 PM CDT Height 165.1 cm (5' 5 ) 06/29/2021 1:12 PM CDT Body Mass Index 24.96 06/29/2021 1:12 PM CDT documented in this encounter Functional [...] * Patient Instructions* Markus Cabral MD - 06/29/2021 1:38 PM CDT Ask PT to evaluate you for a better AFO/ ankle brace Scheudle EMG/NCV test Come back in 3 months documented in this encounter Progress Notes * Markus Cabral MD - 06/29/2021 1:32 PM CDT [facility] Markus Cabral MD Date: 06/29/2021 Referring Physician: Mckayla Haywood MD [address] [place] [address] Chief Complaint: Chief Complaint Patient presents with ??? Multiple Sclerosis HPI: MsWilda Frost is a 40 year old female seen for follow up regarding multiple sclerosis. The MS history is summarized below: She had her first symptoms at around 2006. Has been on Rebif/Tysabri/Gilenya before. She has been on Ocrevus since 2020, and before that for few years on rituximab. Has advanced MS with extensive lesion burden and brain atrophy, and resultant major neuro cognitive decline. She is disabled at baseline from her neurocognitive status. 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 In 2020 had a couple of admissions at outside hospital, and Vimpat was added in addition to zonisamide. Last seen in February 2021. He suffered a fall and ended up having ankle and tibial fracture and was in a metal cast for close to 3 months. She had at [facility] in the [facility] 4 months, the most recent one was in late April 2 early May for worsening paranoia. She has had significant issues with marijuana and reluctant to stop it. During her hospitalization she noticed that she had a foot drop in the right side. Currently wearing a soft ankle brace. Her orthopedics doctor has discharged her from the clinic as the bones are nowhealed . Is going to see a physical therapist tomorrow . she requested to be seen in the clinic for right foot drop and is wondering if she needs steroid infusions. Currently lives alone and home health aide visits her couple times a week. Her mother is her legal guardian. REVIEW OF SYSTEMS: Constitutional: no fever, night sweats, or unintentional weight loss ENT: No runny nose, ear pain, sore throat, or mouth ulcers Cardiovascular: No Irregular heartbeat, racing heart, chest pains, swelling of feet or legs Respiratory: no cough, wheezing, or dyspnea GI: No vomiting, diarrhea or Constipation : No frequent urination, urgency, or hesitancy Musculoskeletal: No Joint pain, swelling of joints Skin: No Persistent rash, itching, new skin lesion, Neurologic: As above Psychiatric No irritability, depression, anxiety, or hallucinations Endocrinologic No Intolerance to heat or cold Hematologic :No Problems Easy bleeding, easy bruising. Past Medical History: Past Medical History: Diagnosis Date ??? Asthma ??? Migraines ??? MS (multiple sclerosis) ??? Seizures Family History: Family History Problem Relation Name [...] Psoriasis Neg Hx Social History: Social History Socioeconomic History ??? [...] on file Housing Stability: Not on file Medication List: Current Outpatient Medications Medication ??? ABILIFY MAINTENA 300 MG injection ??? baclofen (LIORESAL) 10 MG tablet ??? clonazePAM (KLONOPIN) 0.5 MG tablet ??? docusate sodium (COLACE) 100 MG capsule ??? escitalopram (LEXAPRO) 20 MG tablet ??? fluticasone propionate (FLONASE) 50 MCG/ACT nasal spray ??? folic acid (FOLVITE) 1 MG tablet ??? lacosamide (VIMPAT) 200 MG tablet ??? multivitamin daily tablet ??? SYMBICORT 160-4.5 MCG/ACT inhaler ??? thiamine (VITAMIN B-1) 100 MG tablet ??? zonisamide (ZONEGRAN) 100 MG capsule Current Facility-Administered Medications Medication ??? ARIPiprazole ER (Abiliflenore Maintena) prefilled syringe 300 mg GENERAL PHYSICAL EXAM: Constitutional: BP 116/77 Pulse 97 Temp 98 ??F (36.7 ??C) Ht 5' 5 (1.651 m) Wt 150 lb (68 kg) RpW940% BMI 24.96 kg/m2 Neuro Exam: Mental Status Awake alert oriented. No language deficits. Denies any hallucinations or delusions at this time. Visual huber are full Extraocular movements intact Face is symmetric Hearing is intact No dysarthria Full power in bilateral upper extremities On the right lower extremity there is a foot drop with weakness of the dorsiflexion and eversion. Inversion and plantar flexion are intact. Good strength with hip flexion knee flexion and knee extension, bilaterally. Reflexes are brisk and symmetric throughout Review of records: Labs: Quality Measures: Magnetic Resonance Imaging (MRI) Monitoring : Yes Disease Modifying Therapies (DMT) Monitoring : Ocrelizumab Exercise and Appropriate Physical Activity Counseling : Physical therapy prescription provided Assessment: Encounter Diagnoses Name Primary? Foot drop, right Yes ??? MS (multiple sclerosis) ??? Seizures Recommendation: Ms. Meredith Frost is a 40 year old female seen for follow up regarding multiple sclerosis. She has relapse from onset MS, with extensive lesion burden , brain atrophy. Advanced to disability predominantly major cognitive dysfunction from multiple sclerosis. As comorbid psychiatric disorder being managed by psychiatry. She is clinically and radiologically stable on Ocrelizumab. Really right foot drop is likely from the compression of the superficial peroneal nerve at the knee, from metallic cast that was put on, for right ankle and tibial fracture. This is less likely to be from an MS relapse. She does have some low back pain, but exam is not consistent with L5 radiculopathy. Well check EMG nerve conduction studies to confirm. Continue physical therapy and, talk with physical therapy to prescribe the better AFO. From MS standpoint she is stable and will continue ocrelizumab We will check safety labs today including CBC CMP and immunoglobulin levels. From epilepsy standpoint we will continue zonisamide 500 mg nightly and, lacosamide 200 mg twice daily. Prescription both of these medications was sent today. Follow-up in 3 months. Signature: Markus Cabral MD Longitudinal Float Operator of Neurology Neuroimmunology & [facility] Coding Rationale New or est? Established Patient Highest problem complexity: 1 or more chronic illnesses with severe exacerbation, progression, or side effects of treatment Data review: Ordering of test(s): 3 or more unique test(s) ordered Highest level of risk: High Suggested code: 60061 documented in this encounter Plan of Treatment Upcoming Encounters Date Type Department Care Team (Late st Contact Info) Description 04/04/2024 8:30 AM REDUCING MACHINE OPERATOR Office Visit [facility] - Dermatology [address] [place] [address], [place] [phone] Marlys Zaragoza MD [address] [place] [address] 3 [place] [phone] 09/03/2024 9:00 AM CDT Office Visit [facility] - Neurology [address] [place] [phone] Melissa Crook, .NET DEVELOPER-OVERHEAD FOREMAN [address] [place] [phone] Scheduled Orders Name Type Priority Associated Diagnoses Orde r Schedule EMG WITH NERVE CONDUCTION STUDY Neurology Routine Foot drop, right 1 Occurrences starting 06/29/2021 until 06/29/2022 documented as of this encounter Results * IGM BLOOD (06/29/2021 2:10 PM CDT) IgM 70 37 - 286 mg/dL 06/29/2021 2:50 PM CDT [facility] Blood BLOOD SPECIMEN / Unknown Lab Venipuncture / Unknown 06/29/2021 2:10 PM CDT 06/29/2021 2:28 PM CDT Markus Cabral MD LAB - CHEMISTRY ORDERABLES [address] [address], [place] [phone] * (ABNORMAL) IGG BLOOD (06/29/2021 2:10 PM CDT) IgG 753(L) 767 - 1,590 mg/dL 06/29/2021 2:50 PM CDT [facility] Blood BLOOD SPECIMEN / Unknown Lab Venipuncture / Unknown 06/29/2021 2:10 PM CDT 06/29/2021 2:28 PM CDT Markus Cabral MD LAB - CHEMISTRY ORDERABLES Performing Organization Address City/[facility]/ZIP Co de Phone Number [address] [address], [place] [phone] * IGA BLOOD (06/29/2021 2:10 PM CDT) Pathologist [facility] IgA 81 61 - 356 mg/dL 06/29/2021 2:50 PM CDT [facility] Blood BLOOD SPECIMEN / Unknown Lab Venipuncture / Unknown 06/29/2021 2:10 PM CDT 06/29/2021 2:28 PM CDT Markus Cabral MD LAB - CHEMISTRY ORDERABLES [address] [address], [place] [phone] * (ABNORMAL) COMPREHENSIVE METABOLIC PANEL (06/29/2021 2:10 PM CDT) BUN 20 7 - 26 mg/dL 06/29/2021 2:58 PM CDT [facility] Creatinine 0.66 0.56 - 0.96 mg/dL 06/29/2021 2:58 PM [facility] Sodium 141 136 - 145 mmol/L 06/29/2021 2:58 PM [facility] Potassium 4.1 3.5 - 4.5 mmol/L 06/29/2021 2:58 PM [facility] Chloride 107 98 - 107 mmol/L 06/29/2021 2:58 PM [facility] CO2 24 22 - 29 mmol/L 06/29/2021 2:58 PM [facility] Glucose 79 70 - 115 mg/dL 06/29/2021 2:58 PM [facility] Calcium 9.1 8.4 - 10.2 mg/dL 06/29/2021 2:58 PM [facility] Protein Total 6.7 6.0 - 8.3 g/dL 06/29/2021 2:58 PM [facility] Albumin 3.8 3.4 - 5.0 g/dL 06/29/2021 2:58 PM [facility] Bilirubin Total 0.2 0.2 - 1.2 mg/dL 06/29/2021 2:58 PM [facility] Alkaline Phosphatase 88 40 - 150 U/L 06/29/2021 2:58 PM [facility] ALT 11 5 - 55 U/L 06/29/2021 2:58 PM [facility] AST 11 5 - 34 U/L 06/29/2021 2:58 PM [facility] Anion Gap 14 8 - 18 06/29/2021 2:58 PM [facility] BUN/Creatinine Ratio 30(H) 7 - 23 06/29/2021 2:58 PM [facility] Osmolality Calculated 294 270 - 300 mOsm/kg 06/29/2021 2:58 PM [facility] Albumin/Globulin Ratio 1.3 1.1 - 2.3 06/29/2021 2:58 PM [facility] eGFR by CKD-EPI >90 >=90 mL/min/1.7 3 m2 06/29/2021 2:58 PM [facility] Blood BLOOD SPECIMEN / Unknown Lab Venipuncture / Unknown 06/29/2021 2:10 PM CDT 06/29/2021 2:30 PM CDT Markus Cabral MD LAB - CHEMISTRY ORDERABLES [facility] [address] [place] [address], [facility] [phone] * (ABNORMAL) CBC WITH DIFFERENTIAL (06/29/2021 2:10 PM CDT) WBC 17.8(H) 3.5 - 10.5 10? 3 /uL 06/29/2021 2:39 PM CDT [facility] RBC 4.79 3.80 - 5.20 10? 6 /uL 06/29/2021 2:39 PM [facility] Hemoglobin 11.7(L) 12.0 - 15.6 g/dL 06/29/2021 2:39 PM [facility] Hematocrit 37.6 35.0 - 45.0 % 06/29/2021 2:39 PM [facility] MCV 78.5(L) 80.7 - 98.3 fL 06/29/2021 2:39 PM [facility] MCH 24.4(L) 26.7 - 34.0 pg 06/29/2021 2:39 PM [facility] MCHC 31.1 30.8 - 35.9 g/dL 06/29/2021 2:39 PM [facility] Platelet Count 469(H) 150 - 400 10? 3 /uL 06/29/2021 2:39 PM [facility] RDW-SD 47.2 36.0 - 50.0 fL 06/29/2021 2:39 PM [facility] RDW-CV 16.7(H) 11.2 - 14.8 % 06/29/2021 2:39 PM [facility] MPV 8.7(L) 9.4 - 12.9 fL 06/29/2021 2:39 PM [facility] nRBC Absolute 0.00 0 10? 3 /uL 06/29/2021 2:39 PM [facility] nRBC Auto 0.0 0 /100 WBC 06/29/2021 2:39 PM [facility] Neutrophils % 72.4(H) 35.0 - 70.0 % 06/29/2021 2:39 PM [facility] Lymphocytes % 11.5(L) 20.0 - 43.0 % 06/29/2021 2:39 PM [facility] Monocytes % 7.4 5.0 - 13.0 % 06/29/2021 2:39 PM [facility] Eosinophils % 7.5(H) 0.0 - 6.0 % 06/29/2021 2:39 PM [facility] Basophil % 0.7 0.0 - 2.0 % 06/29/2021 2:39 PM [facility] Neutrophils Absolute 12.8(H) 1.6 - 7.0 10? 3 /uL 06/29/2021 2:39 PM [facility] Lymphocyte Absolute 2.1 1.1 - 3.9 10? 3 /uL 06/29/2021 2:39 PM [facility] Monocytes Absolute 1.32(H) 0.26 - 1.07 10? 3 /uL 06/29/2021 2:39 PM [facility] Eosinophils Absolute 1.34(H) 0.00 - 0.47 10? 3 /uL 06/29/2021 2:39 PM [facility] Basophils Absolute 0.13(H) 0.00 - 0.08 10? 3 /uL 06/29/2021 2:39 PM [facility] Immature Granulocytes % 0.5 0.0 - 1.0 % 06/29/2021 2:39 PM [facility] Immature Granulocytes Absolute 0.09 06/29/2021 2:39 PM [facility] Blood BLOOD SPECIMEN / Unknown Lab Venipuncture / Unknown 06/29/2021 2:10 PM CDT 06/29/2021 2:30 PM T Markus Cabral MD LAB - HEMATOLOGY ORDERABLES [facility] [address] [address], [facility] [phone] documented in this encounter Visit Diagnoses Diagnosis Foot drop, right- Primary Other acquired deformity of ankle and foot MS (multiple sclerosis) (HCC) Multiple sclerosis Seizures (HCC) Other convulsions High risk medications (not anticoagulants) long-term use Encounter for long-term (current) use of other medications documented in this encounter Care Teams Filtration Supervisor Relationship Specialty Start Date End Date Lauren Saba, .NET DEVELOPER-OVERHEAD FOREMAN [address] [place] [phone] PCP - General 01/14/18 05/10/23 documented as of this encounter
--- OUTSIDE RECORDS SUMMARY | 2024-03-22 16:37 | XMS_ITS | Encounter Summary ---
Author Organization [facility] Health Address [address] [place] [address] Care Team Providers Care Baby Nurse Name Role Phone Wandy Laurenreilly Whitt APRN-NURSERY WORKER Primary Care Provider Reason for Visit * Reason Onset Date Comments Recurrent Vaginal Infection 01/20/2022 Encounter Details Date Type Department Care Team (Late st Contact Info) Description 01/20/2022 Telephone [facility] [address] [facility], [place] [address] Enoch Porter MD [address] [facility] [place] [address] Recurrent Vaginal Infection Social History Tobacco Use Types Packs/Day Years [...] encounter Miscellaneous Notes * Telephone Encounter - Enoch Porter MD - 01/20/2022 2:41 PM CDT Received message from her OBGYN office stating that she is still having vaginal discharge on exam. I asked nurse and patient regarding medication compliance and both state that she took her medication as prescribed. I will prescribe another extended course of metronidazole for 7 days and advised her on hygiene measures. Will follow up with her in one week. Orders Placed This Encounter ??? metroNIDAZOLE (Flagyl) 500 MG tablet Sig: Take 4 (four) tablets by mouth 2 times daily for 7 days Dispense: 56 tablet Refill: 0 Enoch Porter MD (PGY-4) Infectious Diseases Fellow [facility] [employer] documented in this encounter Plan of Treatment Upcoming Encounters Date Type Department Care Team (Late st Contact Info) Description 04/04/2024 8:30 AM LOOP DRIER OPERATOR Office Visit [facility] - Dermatology [address] [place] [address], [place] [address] Marlys Zaragoza MD [address] [place] [address] [address] [place] [address] 09/03/2024 9:00 AM CDT Office Visit [facility] - Neurology [address] [facility], [place] [address] Melissa Crook APRN-NAIF [address] [place] [phone] documented as of this encounter Visit Diagnoses Diagnosis Trichomoniasis of vagina- Primary Trichomonal vulvovaginitis documented in this encounter Care Teams Baby Nurse Relationship Specialty Start Date End Date Lauren Saba APRN-NURSERY WORKER [address] [place] [phone] PCP - General 01/14/18 05/10/23 documented as of this encounter
--- OUTSIDE RECORDS SUMMARY | 2024-03-22 16:37 | XMS_ITS | Encounter Summary ---
Author Organization [facility] Health Address [address] [facility] [place] [address] Care Team Providers Care Nutrition Tech Name Role Phone Lauren Saba Jose Eduardo KNOX-INCOME TAX RETURN PREPARER Primary Care Provider Reason for Visit * Reason Onset Date Comments MEDICATION REFILL 05/05/2022 Encounter Details Date Type Department Care Team (Late st Contact Info) Description 05/05/2022 Refill [facility] [address] [facility], [place] [phone] Marlys Zaragoza MD [address] [facility] 3 [place] [phone] MEDICATION REFILL Social History Tobacco Use Types [...] st Contact Info) Description 04/04/2024 8:30 AM BALANCE BRIDGE ASSEMBLER [facility] - Dermatology [address] [place] [phone] Marlys Zaragoza MD [address] [place] [address] 3 [place] [phone] 09/03/2024 9:00 AM CDT Office Visit [facility] - Neurology [address] [place] [address], [place] [phone] Melissa Crook APRN-INCOME TAX RETURN PREPARER [address] [place] [address] documented as of this encounter Visit Diagnoses Not on filedocumented in this encounter Care Teams Nutrition Tech Relationship Specialty Start Date End Date Lauren Saba APRN-INCOME TAX RETURN PREPARER [address] [place] [phone] PCP - General 01/14/18 05/10/23 documented as of this encounter
--- OUTSIDE RECORDS SUMMARY | 2024-03-22 16:37 | XMS_ITS | Encounter Summary ---
Author Organization [facility] Health Address [address] [facility] [place] [address] Care Team Providers Care Loom Fixer Supervisor Name Role Phone Lauren Saba Jose Eduardo KNOX-GREY TENDER Primary Care Provider Reason for Visit * Reason Comments Refill Request Encounter Details Date Type Department Care Team (Late st Contact Info) Description 09/21/2021 Refill [facility] 12[address] [facility], [facility] [place] [phone] Markus Cabral MD [address] [place] [phone] Refill Request Social History Tobacco Use Types [...] Telephone Encounter - Dilma Gruber RN - 09/21/2021 7:45 AM CDT Refill Request Meredith Frost CRISTELA: 06/29/21 NOV due: rto x 3 months NOV scheduled: 10/03/2021 LRF: 06/29/21 Qty Disp: 180 # of refills: 3 Allergies: No Known Allergies Pended Medication Order: Requested Prescriptions Pending Prescriptions Disp Refills ??? lacosamide (VIMPAT) 200 MG tablet [Pharmacy Med Name: LACOSAMIDE 200MG TABLETS] 180 tablet Sig: TAKE 1 TABLET BY MOUTH TWICE DAILY documented in this encounter Plan of Treatment Upcoming Encounters Date Type Department Care Team (Late st Contact Info) Description 04/04/2024 8:30 AM PRIVATE CHEF Office Visit [facility] - Dermatology [address] [place] [address], [place] [phone] Marlys Zaragoza MD [address] [place] [address] 3 [place] [phone] 09/03/2024 9:00 AM CDT Office Visit [facility] - Neurology [address] [place] [phone] Melissa Crook APRN-GREY TENDER [address] [place] [phone] documented as of this encounter Visit Diagnoses Diagnosis Seizures (HCC) Other convulsions documented in this encounter Care Teams Loom Fixer Supervisor Relationship Specialty Start Date End Date Lauren Saba APRN-GREY TENDER [address] [place] [phone] PCP - General 01/14/18 05/10/23 documented as of this encounter
--- OUTSIDE RECORDS SUMMARY | 2024-03-22 16:37 | XMS_ITS | Encounter Summary ---
Author Organization [facility] Health Address [address] [place] [address] Care Team Providers Care Fund Manager Name Role Phone Lauren Saba Jose Eduardo KNOX-LAND ECONOMIST Primary Care Provider Reason for Visit * Reason Onset Date Comments MEDICATION REFILL 05/01/2022 Encounter Details Date Type Department Care Team (Late st Contact Info) Description 05/01/2022 Refill [facility] [address] [facility], [place] [phone] Marlys Zaragoza MD [address] [facility] 3 [place] [phone] MEDICATION REFILL Social History Tobacco Use Types [...] st Contact Info) Description 04/04/2024 8:30 AM PATTERNMAKER WOOD Office [facility] - Dermatology [address] [place] [phone] Marlys Zaragoza MD [address] [place] [address] 3 [place] [phone] 09/03/2024 9:00 AM CDT Office Visit [facility] - Neurology [address] [place] [address], [place] [phone] Melissa Crook APRN-LAND ECONOMIST [address] [place] [address] documented as of this encounter Visit Diagnoses Not on filedocumented in this encounter Care Teams Fund Manager Relationship Specialty Start Date End Date Lauren Saba APRN-LAND ECONOMIST [address] [place] [phone] PCP - General 01/14/18 05/10/23 documented as of this encounter
--- OUTSIDE RECORDS SUMMARY | 2024-03-22 16:37 | XMS_ITS | Encounter Summary ---
Author Organization [facility] Health Address [address] [place] [address] Care Team Providers Care Wooden Tank Erector Name Role Phone Wandy Lauren Jose Eduardo KNOX-AUTO CARE CENTER MANAGER Primary Care Provider Reason for Visit * Reason Onset Date Comments Medication Issue 09/12/2021 Encounter Details Date Type Department Care Team (Late st Contact Info) Description 09/12/2021 Telephone [facility] [address] [facility], [place] [address] Marlys Zaragoza MD [address] [facility] 3 [place] [address] Medication Issue Social History Tobacco [...] * Telephone Encounter - Rachell Hawkins - 09/12/2021 4:32 PM CDT Pt called this afternoon on behalf of her medication for tretinoin (RETIN-A) 0.05 % cream, not ableto obtain medication. Please advise. documented in this encounter Plan of Treatment Upcoming Encounters Date Type Department Care Team (Late st Contact Info) Description 04/04/2024 8:30 AM SEAT INSTALLER Office Visit [facility] - Dermatology [address] [place] [address], [place] [phone] Marlys Zaragoza MD [address] [place] [address] 3 [place] [phone] 09/03/2024 9:00 AM CDT Office Visit [facility] - Neurology [address] [place] [address], [place] [phone] Melissa Crook, DRIER TAKE OFF TENDER-AUTO CARE CENTER MANAGER [address] [place] [address] documented as of this encounter Visit Diagnoses Not on filedocumented in this encounter Care Teams Wooden Tank Erector Relationship Specialty Start Date End Date Lauren Saba APRN-NAIF [address] [place] [phone] PCP - General 01/14/18 05/10/23 documented as of this encounter
--- OUTSIDE RECORDS SUMMARY | 2024-03-22 16:37 | XMS_ITS | Encounter Summary ---
Author Organization [facility] Health Address [address] [facility] [place] [address] Care Team Providers Care Supervisor Component Assembler Name Role Phone Lauren Saba Jose Eduardo KNOX-LINE MAINTENANCE SUPERVISOR Primary Care Provider Encounter Details Date Type Department Care Team (Late st Contact Info) Description 04/12/2022 Orders Only [facility] [address] [place] [address] Lauren Villa Social History Tobacco Use Types Packs/Day Years [...] st Contact Info) Description 04/04/2024 8:30 AM CIGARETTE EXAMINER Office Visit [facility] - Dermatology [address] [place] [address] [place] [address] Marlys Zaragoza MD [address] [place] [address] 3 [place] [phone] 09/03/2024 9:00 AM CDT [facility] [address] [place] [phone] Melissa Crook, MACHINE OR MACHINERY MECHANIC-LINE MAINTENANCE SUPERVISOR [address] [place] [phone] documented as of this encounter Procedures Procedure Name Priority Date/Time Associated Diagnosis Comments LACOSAMIDE 04/12/2022 1:37 PM CIGARETTE EXAMINER ZONISAMIDE LEVEL 04/12/2022 1:37 PM CIGARETTE EXAMINER CBC W AUTO DIFFERENTIAL 04/12/2022 1:37 PM CIGARETTE EXAMINER COMPREHENSIVE METABOLIC PANEL 04/12/2022 1:37 PM CIGARETTE EXAMINER documented in this encounter Results * ZONISAMIDE LEVEL (04/12/2022 1:37 PM CIGARETTE EXAMINER) [facility] Zonisamide 20.2 10.0 - 40.0 mcg/mL [facility] Comment: This test was developed and its analytical performance characteristics have been determined by [employer]. It has not been cleared or approved by the FDA. This assay has been validated pursuant to the CLIA regulations and is used for clinical purposes. REPORT COMMENT: AN UPDATE OR CORRECTION HAS BEEN MADE TO NAME Test Performed at: [facility] [address] ??[id number] MELVI FLYNN MD 04/12/2022 1:37 PM CIGARETTE EXAMINER 04/12/2022 1:40 PM CIGARETTE EXAMINER Markus Cabral MD LAB - CHEMISTRY ORDERABLES Performing Organization Address [facility] de Phone Number [address] [address] * LACOSAMIDE (04/12/2022 1:37 PM CIGARETTE EXAMINER) [facility] Lacosamide LC/MS/MS 7.3 mcg/mL [facility] Comment: Expected concentrations of Lacosamide in patients receiving recommended daily dosages: Up to 15.0 mcg/mL. Toxic range not established This test was developed and its analytical performance characteristics have been determined by [employer]. It has not been cleared or approved by the FDA. This assay has been validated pursuant to the CLIA regulations and is used for clinical purposes. Test Performed at: [facility] [address] ??[phone] MELVI FLYNN MD 04/12/2022 1:37 PM CIGARETTE EXAMINER 04/12/2022 1:40 PM CIGARETTE EXAMINER Markus Cabral MD LAB - CHEMISTRY ORDERABLES Performing Organization Address [facility] Co de Phone Number [address] [address] * (ABNORMAL) CBC WITH DIFFERENTIAL (04/12/2022 1:37 PM CIGARETTE EXAMINER) [facility] White Blood Cell Count 8.3 3.8 - 10.8 Thousand/u L [facility] RBC 5.04 3.80 - 5.10 Million/uL [facility] Hemoglobin 10.9(L) 11.7 - 15.5 g/dL [facility] Hematocrit 36.5 35.0 - 45.0 % [facility] MCV 72.4(L) 80.0 - 100.0 fL [facility] MCH 21.6(L) 27.0 - 33.0 pg [facility] MCHC 29.9(L) 32.0 - 36.0 g/dL [facility] RDW 17.0(H) 11.0 - 15.0 % [facility] Platelet Count 451(H) 140 - 400 Thousand/u L [facility] MPV 9.6 7.5 - 12.5 fL [facility] Neutrophil Absolute 5129 1500 - 7800 cells/uL [facility] Lymphocytes Absolute 1569 850 - 3900 cells/uL [facility] Absolute Monocytes 913 200 - 950 cells/uL [facility] Eosinophils Absolute 581(H) 15 - 500 cells/uL [facility] Basophils Absolute 108 0 - 200 cells/uL [facility] Granulocytes % 61.8 % [facility] Lymphocytes % 18.9 % [facility] Monocytes % 11.0 % [facility] Eosinophils % 7.0 % [facility] Basophils % 1.3 % [facility] Comment: Test Performed at: [facility] [address] [place] [address] ??[id number] BETTE ALVARES DO,MPH 04/12/2022 1:37 PM CIGARETTE EXAMINER 04/12/2022 1:40 PM CIGARETTE EXAMINER Markus Cabral MD LAB - HEMATOLOGY ORDERABLES Performing Organization Address City/State/[facility] Co de Phone Number [facility] [phone] [place] [address] * COMPREHENSIVE METABOLIC PANEL (04/12/2022 1:37 PM CIGARETTE EXAMINER) Glucose 72 65 - 99 mg/dL [facility] Comment: ? Fasting reference interval BUN 22 7 - 25 mg/dL [facility] Creatinine 0.63 0.50 - 0.99 mg/dL [facility] eGFR by Cystatin C 114 > OR = 60 mL/min/1. 73m2 [facility] Comment: The eGFR is based on the CKD-EPI 2020 equation. To calculate the new eGFR from a previous Creatinine or Cystatin C result, go to https://www.kidney.org/professionals/ kdoqi/gfr%5Fcalculator BUN/Creatinine Ratio NOT APPLICABLE 6 - (calc) [facility] Sodium 138 135 - 146 mmol/L [facility] Potassium 4.3 3.5 - 5.3 mmol/L [facility] Chloride 107 98 - 110 mmol/L [facility] CO2 25 20 - 32 mmol/L [facility] Calcium 9.8 8.6 - 10.2 mg/dL [facility] Protein Total 6.9 6.1 - 8.1 g/dL [facility] Albumin 4.8 3.6 - 5.1 g/dL [facility] Globulin Total 2.1 1.9 - 3.7 g/dL (calc) [facility] Albumin/Globuli n Ratio 2.3 1.0 - 2.5 (calc) [facility] Bilirubin Total 0.2 0.2 - 1.2 mg/dL [facility] Alkaline Phosphatase 53 31 - 125 U/L [facility] AST 11 10 - 30 U/L [facility] ALT 14 6 - 29 U/L [facility] Comment: Test Performed at: [facility] [address] [place] [address] ??[phone] BETTE ALVARES DO,MPH 04/12/2022 1:37 PM CIGARETTE EXAMINER 04/12/2022 1:40 PM CIGARETTE EXAMINER Markus Cabral MD LAB - CHEMISTRY ORDERABLES Performing Organization Address City/State/[facility] Co de Phone Number [facility] [address] [place] [address] documented in this encounter Visit Diagnoses Not on filedocumented in this encounter Care Teams Supervisor Component Assembler Relationship Specialty Start Date End Date Lauren Saba, MACHINE OR MACHINERY MECHANIC-LINE MAINTENANCE SUPERVISOR [address] [place] [phone] PCP - General 01/14/18 05/10/23 documented as of this encounter
--- OUTSIDE RECORDS SUMMARY | 2024-03-22 16:37 | XMS_ITS | Encounter Summary ---
Author Organization [facility] Health Address [address] [place] [address] Care Team Providers Care Associate Professor Of Management Name Role Phone Lauren Saba Jose Eduardo KNOX-AIRCRAFT PNEUDRAULICS REPAIRER Primary Care Provider Reason for Visit * Reason Comments Neuropsychological Evaluation * Evaluate & Treat (Routine) - Closed Specialty Diagnoses / Procedures Referred By Nicole shipley Referred To Contact Diagnoses Psychosis, unspecified psychosis type (HCC) May Chilel DO [address] [place] [address] Jefferson Suarez, PhD [address] [place] [address] Referral ID Status Reason Start Date Expiration Date V isits Requested Visits Authorized [id number] Closed Specialty Services Required 06/17/2021 06/17/2022 1 1 Encounter Details Date Type Department Care Team (Latest Contact Info) Description 06/28/2021 8:00 AM CDT Office Visit [facility] [address] [place] [address] May Chilel DO [address] [place] [address] Jefferson Suarez, PhD [address] [place] [address] Major neurocognitive disorder due to another medical condition (HCC) (Primary Dx); MS (multiple sclerosis) (HCC) Social History Tobacco [...] as of this encounter Progress Notes * Jefferson Suarez, PhD - 09/12/2021 1:18 PM CDT Images from the original note were not included. [address] [place] [address] Department of Neurology & Psychiatry Neuropsychology Service NEUROPSYCHOLOGICAL EVALUATION CONFIDENTIAL Name: Meredith Frost Education: 16yrs : 1980 (40yrs) Occupation: Disabled GARCIA: 06/28/2021 Handedness: Right ANALY: 09/12/2021 Referral: Dr. Cabral Identifying Information and Reason for Referral Ms. Meredith Frost is a 40-year-old, right-handed, female with a history of epilepsy, multiplesclerosis (MS; relapsing remitting, diagnosed 2006), and schizophrenia vs other psychotic disorder.She has returned for neuropsychological re-evaluation to track her cognitive status and provide upda mayra recommendations. Results of Previous Evaluation Neuropsychological evaluation completed by this service on 01/31/2019 was interpreted as showing widespread cognitive dysfunction and current low intellectual functioning which likely represents significant decline from prior levels of functioning. While she reported maintaining independence for many IADLs, it is conceivable that her current cognitive deficits likely impact, at least to some degree, her ability to maintain full independence for all IADLs and a diagnosis of Major Neurocognitive Disorder was deemed likely. Etiology was likely multifactorial with contribution from her MS, epilepsy, daily marijuana use, and possible schizophrenia vs other psychotic disorder. She denied current psychotic symptoms or clinically elevated depression symptoms. Repeat evaluation on 06/01/2020 revealed largely stable cognitive functioning relative to January 2019 despite her marijuana use on the day of this evaluation. Her reduced judgement and cognitive profile with widespread dysfunction, along with needing assistance with many IADLs remained consistent w ith a diagnosis of Major Neurocognitive Disorder. Etiology was thought to be multifactorial with contribution from her MS, epilepsy, daily marijuana use, and possible schizophrenia vs other psychoticdisorder. She denied current psychotic symptoms or clinically elevated depression symptoms Background Information The following information was obtained from a clinical interview with the patient, and a review of select medical records. Please refer to her 2018 and 2020 reports of neuropsychological evaluation for additional background information. Cognitively, Ms. Frost reported that her memory skills remain problematic, though she thinks it may be better than 2020. Similarly, word-finding continues to be of concern, but she feels it may possible be improved relative to last year. She continues to have slowed speed of thinking, and otherwise denied other cognitive or behavioral concerns. Medically, she reported having voluntarily stopped presenting to clinic for her monthly Abilify injection for about 3mos and was eventually hospitalized for psychiatric reasons. She also reported that in the interim she broke her leg in February 2021 due to trip and fall and was placed in a nursinghome for recovery and unfortunately contracted COVID in that setting. She reported having a drop foot since that time. Functionally, the patient reported that she continues to receive assistance/oversight with financesand medications. She make basic meals independently. She does not drive. She reported full independence for basic ADLs (bathing, dressing, grooming, eating, toileting). She reported having 3 case technician working with her and who visit her 2-3x per week. Psychologically, she reported her current mood to be ???good?? and denied current suicidal or homicidal ideation. She denied current or recent auditory or visual hallucinations, and there was no evidence of delusional thinking. She continues to receive psychiatric care via [facility] Regarding substance use, the patient reported that she has not consumed alcohol since February 2021. She continues to use marijuana daily including on the morning of this evaluation. She denied otherillicit substance use or prescription drug abuse/misuse. Current medications include (per medical records): Abilify Maintena (300mg injection), albuterol HFA, alprazolam (0.5mg), baclofen (10mg), benzoyl peroxide (10% wash), budesonide-formoterol inhaler, clindamycin (300mg), erythromycin (2% solution), escitalopram (20mg), fluticasone propionate nasal spray, ibuprofen (800mg), ketoconazole (2% cream), ocrelizumab (600mg by IV every 6mos), onabotulinumtoxin A injection every 90days, sumatriptan (50mg), tretinoin (0.05% cream), and zonisamide (100mg). The patient currently lives alone in a 1-bedroom apartment. She reported that her brother currentlyhas custody of her 18-year-old son. Her mother lives in [place], and helped to set up an in-home economics expert for Ms. Frost. The patient is not currently working and continues to receive SSDI. Neurobehavioral Status Exam by Psychologist/Behavioral Observations Informed consent procedures were reviewed with the patient, and written consent was obtained. She arrived on time to her appointment and was unaccompanied. She confided that she had used marijuana inthe water resource agent hours prior to this evaluation. She was counseled that her recent cannabis use will limit validity of test results and was provided opportunity to reschedule for a later date. She declined opportunity to reschedule and said she did not think she would be able to refrain from marijuana use prior to any future appointment. She was casually dressed and adequately groomed. She was alert and able to engage in all assessment procedures. Hearing and vision were judged to be adequate for testing. Attention was intact for assessment purposes. No gross motor deficits were observed. Spontaneous speech was fluent with low volume, mildly fast rate, and normal prosody. Occasional word-finding difficulties were observed. Basic auditory verbal comprehension was intact and adequate for testing purposes. Thought processes were coherent and thought content was logical. Affect was blunted. She denied current suicidal ideation or homicidal ideation, and she was not in acute crisis duringthis evaluation. She was pleasant and cooperative with all evaluation procedures and obtained a passing score on a performance validity test; however, her marijuana use on the morning of this evaluation call into question validity of this data. Tests Administered by [employer] Jose Diagnostic System (GDS); Patient Health Questionnaire-9 (PHQ-9); Performance Validity Test (PVT); Repeatable Battery for the Assessment of Neuropsychological Status-Update (RBANS) form B; and [place] Making Test (TMT) Part A and Part B. Results Note: Standard scores (SS) have an average of 100 and a standard deviation of 15; T-scores have an average of 50 and a standard deviation of 10; Scaled scores (ss) have an average of 10 and a standard deviation of 3; z-scores have an average of 0 and a standard deviation of 1. Please see the attached data table for a summary of all test scores. The values and ranges listed in the data table were derived from comparison of patient scores to available normative data sets. Multiple normative sets were used to calculate these values and ranges, and these data sets differ in the degree to which they control for demographic factors that have been shown to impact cognitive test performance (e.g., age, education, gender, race). For this reason, interpretation of these valuesand ranges is contingent upon knowledge of the psychometric properties of each test and the characteristics of the normative sets that were used to obtain the derived comparison. Please refer to the Integrated Summary and Impressions section of this report for an informed integration and interpretation of the data. Testing Considerations: The following in-person evaluation was conducted with safety measures to minimize the spread of COVID-19. These include, but are not limited to, all individuals wearing masks,plexiglass desk shield, HEPA air- filter, room with window that can be opened, and cleaning of the room and all test materials. Comparison of Test Scores: 01/31/2019 06/01/2020 06/28/2021 Measure RBANS SS SS SS Immediate Memory 61 49 73^ Visuospatial/Constructional 60 53 64 Language 54 54 54 Attention 43 40 56^ Delayed Memory 44 44 75^ Total 47 45 55 ss / %ile ss / %ile ss / %ile List Learning 3 1 7^ Story Memory 4 3 3 Figure Copy 1 1 1 Line Orientation <=2 <=2 10-16 Picture naming 3-9 3-9 <=2 Semantic Fluency 1 1 2 Digit Span 2 1 6^ Coding 1 1 1 List Recall <=2 <=2 3-9 List Recognition <=2 3-9 51-75^ Story Recall 1 1 1 Figure Recall 1 3 2 Passaic Making Test Raw T Raw T Raw T Part A 45 27 96 4 66 18^ Part B d/c???d - d/c???d - 249 14 FAS 9 10 - - - - BNT-II 47 31 - - - - Jose Vigilance - - Raw Z Raw Z # Correct - - 4 -49.423 23 -12.89^ # Commissions - - 19 -11.794 6 -3.41^ Reaction Time - - 360 0.252 450 -0.78 Jose Distractibility - - Raw Z Raw Z # Correct - - 19 -1.641 24 -0.54^ # Commissions - - 25 -7.823 0 0.68^ Reaction Time - - 600 -2.516 460 -0.71^ Raw Raw Raw PHQ-9 2 0 2 Note: ^ indicates clinically significant improvement of Integrated Summary and Impressions Ms. Frost is a 40-year-old female with a previous diagnosis of Major Neurocognitive Disorder, who returned for repeat neuropsychological evaluation, for her now 3rd testing session since 2019. The below results are seen in the context of marijuana use on the day of the evaluation. The patient reported being unable to refrain from her daily marijuana use, and thus requested to complete this evaluation despite the questionable judgement and understanding the below results may be impacted by her recent marijuana use. Compared to her 2020 evaluation, Ms. Frost demonstrated improvement in the domains of auditory verbal learning and memory, auditory verbal attention, and visual attention and distraction management. She otherwise demonstrated stable performances across other domains. No clinically significant declines were seen relative to 202. Similarly, relative to her 2019 evaluation she is showing improved auditory verbal learning and memory and attention, with an otherwise stable profile. On the current evaluation, relative to similarly aged peers, Ms. Frost demonstrated intact auditory verbal word-list learning and recognition based memory (spontaneous recall was below average), visuospatial judgment, management of visual distractions, and psychomotor reaction time. In contrast, she demonstrated borderline impaired to impaired performance on a test of processing speed, mental flexibility/set-shifting, visual sustained attention, verbal narrative learning and memory, visuoconstruction, visual memory, naming, and semantic verbal fluency. In sum, Ms. Frost is improved or stable performances relative to her 2019 and 2020 evaluations despite, again having presented [...] essential for her maintaining/improving overall clinical picture. Based upon this evaluation the following recommendations are offered: 1. The patient will continue to benefit from her psychiatric care and regular psychotherapy. 2. Due to her reduced judgment and cognitive deficits she will require at least a moderate degree of oversight with more complex IADLs (e.g., medication and manager financial planning). 3. Based on her overall clinical picture, she is judged to be a significant safety risk for the operation of a motor vehicle on public roads, and thus must continue to refrain from driving. 4. The patient???s widespread cognitive deficits can be expected to preclude her from being able toobtain and maintain employment. 5. Ms. Frost is encouraged to engage in the following lifestyle/healthy behaviors that have been associated with brain health: a. She is recommended to keep physically, mentally, and socially active. Physical activity, especially 150+ minutes of exercise/week has recently been associated with maintaining good brain health with age. As such, if medically cleared, adhering to a routine of daily exercise may be beneficial forMs. Frost. b. Regular social engagement is recommended, as it can benefit cognitive and psychological health. c. The patient is encouraged to reduce her daily cannabis use to improve her day-to-day cognitive functioning. 6. A repeat neuropsychological evaluation may be considered in 12-months, to track her cognitive status over time. If she experiences MS symptom exacerbation or concern for cognitive or behavioral change, sooner evaluation should be considered. Thank you for allowing us to participate in Ms. Frost???s care. Jefferson Suarez, Ph.D. Neuropsychology Service Instructor of Neurology Licensed Psychologist #[id number] (06/28/21 [phone]) [id number] (09/12/21 [id number]) documented in this encounter Plan of Treatment Upcoming Encounters Date Type Department Care Team (Late st Contact Info) Description 04/04/2024 8:30 AM PATIENT TRANSPORTER Office Visit [facility] - Dermatology [address] [place] [address], [place] [phone] Marlys Zaragoza MD [address] [place] [address] [address] [place] [phone] 09/03/2024 9:00 AM CDT Office Visit [facility] - Neurology [address] [place] [address], [place] [phone] Melissa Crook APRN-AIRCRAFT PNEUDRAULICS REPAIRER [address] [place] [phone] documented as of this encounter Visit Diagnoses Diagnosis Major neurocognitive disorder due to another medical condition (HCC)- Primary MS (multiple sclerosis) (HCC) Multiple sclerosis documented in this encounter Care Teams Associate Professor Of Management Relationship Specialty Start Date End Date Lauren Saba, TREASURY SPECIALIST-AIRCRAFT PNEUDRAULICS REPAIRER [address] [place] [address] PCP - General 01/14/18 05/10/23 documented as of this encounter
--- OUTSIDE RECORDS SUMMARY | 2024-03-22 16:37 | XMS_ITS | Encounter Summary ---
Author Organization [facility] Health Address [address] [place] [address] Care Team Providers Care Quality Assurance Monitor Body Name Role Phone Lauren Saba Jose Eduardo KNOX-APERTURE MASK ETCHER Primary Care Provider Reason for Visit * Reason Onset Date Comments MEDICATION REFILL 05/01/2022 Encounter Details Date Type Department Care Team (Late st Contact Info) Description 05/01/2022 Refill [facility] [address] [facility], [place] [phone] Marlys Zaragoza MD [address] [facility] 3 [place] [phone] MEDICATION REFILL Social History Tobacco Use Types [...] st Contact Info) Description 04/04/2024 8:30 AM SOCIAL MEDIA STRATEGIST [facility] [address] [place] [phone] Marlys Zaragoza MD [address] [place] [address] 3 [place] [phone] 09/03/2024 9:00 AM CDT Office Visit [facility] - Neurology [address] [place] [address], [place] [phone] Melissa Crook APRN-APERTURE MASK ETCHER [address] [place] [address] documented as of this encounter Visit Diagnoses Not on filedocumented in this encounter Care Teams Quality Assurance Monitor Body Relationship Specialty Start Date End Date Lauren Saba APRN-APERTURE MASK ETCHER [address] [place] [phone] PCP - General 01/14/18 05/10/23 documented as of this encounter
--- OUTSIDE RECORDS SUMMARY | 2024-03-22 16:37 | XMS_ITS | Encounter Summary ---
Author Organization [facility] Health Address [address] [facility] [place] [address] Care Team Providers Care Surgical Assistant Name Role Phone Lauren Saba APRN-WHEEL TRUER Primary Care Provider Reason for Visit * Oncology Prior Authorization (Routine) - Closed Specialty Diagnoses / Procedures Referred By Contac t Referred To Contact Diagnoses MS (multiple sclerosis) (HCC) Deja Godinez, PharmD [address] [place] [address] [facility] [address] [place] [address] Referral ID Status Reason Start Date Expiration Date Visits Re quested Visits Authorized [id number] Closed 11/11/2020 11/11/2021 1 1 Encounter Details Date Type Department Care Team (Latest Contact Info) Description 06/21/2021 9:00 AM CDT Procedure visit [facility] [place] [address] [place] [address] MS (multiple sclerosis) (HCC) Social [...] Sign Reading Time Taken Comments Blood Pressure 88/58 06/21/2021 9:05 AM CDT Pulse 64 06/21/2021 9:05 AM CDT Temperature 36.9 ??C (98.4 ??F) 06/21/2021 9:05 AM CD T Respiratory Rate 16 06/21/2021 9:05 AM CDT Oxygen Saturation 98% 06/21/2021 9:05 AM CDT Inhaled Oxygen Concentration - - Weight 68.2 kg (150 lb 4.8 oz) 06/21/2021 9:05 A M CDT Height 165.1 cm (5' 5 ) 06/21/2021 9:05 AM CDT Body Mass Index 25.01 06/21/2021 9:05 AM CDT documented in this encounter Functional [...] Contact Info) Description 04/04/2024 8:30 AM CUSTOMER ORDERS CLERK Office Visit [facility] - Dermatology [address] [place] [address], [place] [phone] Marlys Zaragoza MD [address] [facility] 3L [place] [phone] 09/03/2024 9:00 AM CDT Office Visit [facility] - Neurology [address] [place] [address], [place] [phone] Melissa Crook, LISETTE-WHEEL TRUER [address] [place] [address] documented as of this encounter Visit Diagnoses Diagnosis MS (multiple sclerosis) (HCC)- Primary Multiple sclerosis documented in this encounter Administered Medications Inactive Administered Medications - up to 3 most recent administrations Medication Order MAR Action Action Date Dose Rate Site acetaminophen (Tylenol) tablet 650 mg 650 mg, Oral, ONCE, 1 dose, On Sun06/21/21 at 0900, Maximum allowable Acetaminophen amount = [...] be documented in the MAR. $ Given 06/21/2021 9:08 AM CDT 650 mg diphenhydrAMINE (Benadryl) capsule 50 mg 50 mg, Oral, ONCE, 1 dose, On Sun06/21/21 at 0900, Use IV if patient not tolerating PO Administer pre-medications 30-60 minutes prior to ocrelizumab. $ Given 06/21/2021 9:08 AM CDT 50 mg methylPREDNISolone sod succ (SOLU-Medrol) injection 100 mg 100 mg, Intravenous, ONCE, 1 dose, On Sun06/21/21 at 0900, Reconstituted solution may be given via direct IV injection over 2-5 minutes without further dilution. Administer pre-medications 30-60 minutes prior to ocrelizumab. $ Given 06/21/2021 9:10 AM CDT 100 mg ocrelizumab (Ocrevus) 600 mg in 0.9% NaCl IV 520 mL infusion 600 mg, at 0-300 mL/hr, Intravenous, CONTINUOUS, Starting on Sun06/21/21 at 0945, Until Sun06/21/21 at 1432, Rapid Titration Instructions Begin infusion at rate of 100 mL/hr x 15 minutes. If tolerated increase rate to 200 mL/hr x 15 minutes. If tolerated increase rate to 250 mL/hr x 30 minutes. If tolerated increase rate to 300 mL/hr for the remainder of infusion. Observe patient for 1 hour post infusion. Administer via dedicated line with a 0.2 or 0.22 micron in-line filter $ New Bag/Syringe 06/21/2021 9:39 AM CDT 600 mg 100 mL/hr documented in this encounter Care Teams Surgical Assistant Relationship Specialty Start Date End Date Lauren Saba APRN-WHEEL TRUER [address] [place] [phone] PCP - General 01/14/18 05/10/23 documented as of this encounter
--- OUTSIDE RECORDS SUMMARY | 2024-03-22 16:37 | XMS_ITS | Encounter Summary ---
Author Organization [facility] Health Address [address] [facility] [place] [address] Care Team Providers Care Power Plant Electrician Name Role Phone Wandy Lauren Whitt APRN-[facility] Primary Care Provider Reason for Referral * Neurology (Routine) - Closed Specialty Diagnoses / Procedures Referred By Nicole t Referred To Contact Neurology Diagnoses Foot drop, right Procedures EMG WITH NERVE CONDUCTION STUDY Markus Cabral MD [address] [place] [phone] [facility] Eeg/Emg [address] [place] [address] Referral ID Status Reason Start Date Expiration Date Visits Re quested Visits Authorized [id number] Closed 06/29/2021 06/29/2022 1 1 Reason for Visit * Neurology (Routine) - Closed Specialty Diagnoses / Procedures Referred By Contdanny t Referred To Contact Neurology Diagnoses Foot drop, right Procedures EMG WITH NERVE CONDUCTION STUDY Markus Cabral MD [address] [place] [address] [facility] Eeg/Emg [address] [place] [address] Referral ID Status Reason Start Date Expiration Date Visits Re quested Visits Authorized [id number] Closed 06/29/2021 06/29/2022 1 1 Encounter Details Date Type Department Care Team (Latest Contact Info) Description 08/04/2021 10:00 AM CDT - 08/04/2021 11:59 PM CDT Hospital Encounter H EEG/EMG [address] [place] [address] Sasha Modi MD [address] [place] [address] Discharge Disposition: Home or Self [...] Sig Dispensed Refills Start Date End Date ABILIFY MAINTENA 300 MG injectionIndications: Unspecified Psychosis. Behavioral Disturbances in Dementia Inject 300 (three hundred) mg into muscle every 28 days ; last received on 05/18/2021. Next due 06/15/2021. Reasons: Unspecified Psychosis. Behavioral Disturbances in Dementia 1 Each 5 07/21/2021 01/11/2022 ARIPiprazole (ABILIFY) 10 MG tablet Take 1 [...] Reasons: Muscle Spasticity 60 tablet 05/25/2021 12/12/2022 clonazePAM (KLONOPIN) 0.5 MG tablet Take 1 (one) tablet by mouth at bedtime 30 tablet 2 07/21/2021 12/21/2021 docusate sodium (COLACE) 100 MG capsule Take 1 (one) capsule by mouth every 12 hours 06/21/2021 12/12/2022 escitalopram (LEXAPRO) 20 MG tablet Take 1 (one) tablet by mouth once daily 30 tablet 2 07/21/2021 10/12/2021 fluticasone propionate (FLONASE) 50 MCG/ACT nasal spray [place]ala 2 (two) sprays into each nostril once daily 1 Each 05/25/2021 12/12/2022 folic acid (FOLVITE) 1 MG tablet Take 1 (one) tablet by mouth once daily 30 tablet 06/24/2021 02/02/2022 lacosamide (VIMPAT) 200 MG tabletIndications:Seiseral velasco (HCC) Take 1 (one) tablet by mouth 2 times daily 180 tablet 3 06/29/2021 01/23/2022 multivitamin daily tablet Take 1 (one) tablet by mouth once daily 30 tablet 05/26/2021 10/06/2022 onabotulinumtoxin A (BOTOX) 100 units injectionIndications: Migraine Inject 200 (two hundred) Units into muscle Every 90 days Reasons: Migraine Headache 2 Each 3 07/13/2021 10/20/2021 SYMBICORT 160-4.5 MCG/ACT inhaler Inhale 2 (two) puffs by mouth 2 times daily 06/24/2021 12/12/2022 thiamine (VITAMIN B-1) 100 MG tablet Take 1 (one) tablet by mouth once daily 30 tablet 06/24/2021 12/12/2022 zonisamide (ZONEGRAN) 100 MG capsuleIndications:Fo haseeb Epilepsy Take 5 (five) capsules by mouth at bedtime Reasons: Focal Epilepsy 450 capsule 3 06/29/2021 07/17/2022 documented as of this encounter Procedure Notes * Sahsa Modi MD - 08/04/2021 11:59 PM CDTProcedure(s): EMG Images from the original note were not included. [address] [address] Electrodiagnostic testing was explained to the patient, and they were allowed adequate opportunity to ask questions or discuss the EDX testing evaluation. The patient verbalized consent and gave permission for Electrodiagnostic testing. Full Name: Meredith Frost Procedure #: [id number] Gender: Female Date of : 1980 Visit Date: 08/04/2021 09:28 Age: 40 Years Examining Physician: Sasha Modi MD, Viviana Emanuel MD Referring Physician: Markus Cabral MD Technologist: fani Reason for Test: right foot drop History: Patient is a 40 year old female with a history of MS presenting for evaluation of right foot drop. In Fall 2020 she sustained a tibial fracture and was in a metal cast for 3 months. She later developed foot drop on the right side. Limited examination shows normal strength in the upper extremities. She has weakness with dorsiflexion and eversion in the right foot. Rest of lower extremity strength is normal. SNC Nerve / Sites Rec. Site Onset Lat Peak Lat PP Amp Segments Distance Velocity Temp. ms ms ??V mm m/s ??C R Sural - Ankle (Calf) Calf Ankle 2.7 3.5 10.7 Calf - Ankle 140 51 31.3 Ref. <=4.8 >=5.0 Ref. >=45 L Sural - Ankle (Calf) Calf Ankle 2.8 3.7 17.6 Calf - Ankle 140 49 32.1 Ref. <=4.8 >=5.0 Ref. >=45 R Superficial peroneal - Ankle Lat leg Ankle NR NR NR Lat leg - Ankle 120 NR 26.1 Ref. <=4.2 >=5.0 Ref. L Superficial peroneal - Ankle Lat leg Ankle 2.6 3.1 9.8 Lat leg - Ankle 120 47 26.1 Ref. <=4.2 >=5.0 Ref. MNC Nerve / Sites Muscle Latency Amplitude Segments Lat Diff Distance Velocity ms mV ms mm m/s R Peroneal - EDB Ankle EDB NR NR Ankle - EDB 80 Ref. <=6.6 >=2.0 Ref. Pop fossa - Ankle NR L Peroneal - EDB Ankle EDB 5.4 3.3 Ankle - EDB 80 Ref. <=6.6 >=2.0 Ref. Fib head EDB 12.0 2.6 Fib head - Ankle 6.6 290 44 Ref. Ref. >=42 Pop fossa EDB 14.0 2.4 Pop fossa - Fib head 1.9 90 46 Ref. Ref. >=42 Pop fossa - Ankle 8.6 R Tibial - AH Ankle AH 3.5 9.3 Ankle - AH 80 Ref. <=6.6 >=2.0 Ref. Pop fossa AH 10.9 6.6 Pop fossa - Ankle 7.3 375 51 Ref. Ref. >=42 L Tibial - AH Ankle AH 3.7 10.6 Ankle - AH 80 Ref. <=6.6 >=2.0 Ref. Pop fossa AH 11.3 8.8 Pop fossa - Ankle 7.6 368 48 Ref. Ref. >=42 R Peroneal - Tib Ant Fib Head Tib Ant 4.9 1.1 Fib Head - Tib Ant 85 Pop fossa Tib Ant 6.6 1.2 Pop fossa - Fib Head 1.8 125 71 L Peroneal - Tib Ant Fib Head Tib Ant 2.6 5.6 Fib Head - Tib Ant 80 Pop fossa Tib Ant 3.9 5.5 Pop fossa - Fib Head 1.3 90 67 EMG EMG Summary Table Insertional Spontaneous Volitional MUAPs Muscle Nerve Roots Insertional Fib PSW Fasc Duration Amplitude Poly Recruitment R. Tibialis anterior Deep peroneal (Fibular) L4-L5 Normal 1+ None None Normal Normal Few Reduced R. Gastrocnemius (Medial head) Tibial S1-S2 Normal 1+ None None Normal Normal Few Normal R. Peroneus longus Peroneal L5-S1 CRD 1+ None None Normal Normal Few Reduced R. Vastus medialis Femoral L2-L4 Normal None None None Normal Normal None Normal R. Semitendinosus Sciatic (tibial division) L5-S2 Normal None None None Normal Normal None Normal R. L5 paraspinal Spinal L5- Normal 1+ None None R. Gluteus medius Superior gluteal L4-S1 CRD None None None Normal Normal None Normal Interpretation: ??? Bilateral sural sensory antidromic nerve conduction studies showed normal SNAP peak latencies, normal SNAP amplitudes, and normal SNCVs. ??? Right superficial peroneal sensory antidromic nerve conduction study showed no response. ??? Left superficial peroneal sensory antidromic nerve conduction study showed normal SNAP peak latency, normal SNAP amplitude, and normal SNCV. ??? Right peroneal motor nerve conduction study from right EDB showed no responses. ??? Left peroneal motor nerve conduction study from left EDB showed normal DML, normal CMAP amplitudes, and normal MNCVs across leg and popliteal fossa segments. ??? Bilateral tibial nerve conduction studies showed normal DMLs, normal and symmetric CMAP amplitudes, and normal MNCVs. ??? Right peroneal motor nerve conduction study from right tibialis anterior showed prolonged DML, decreased CMAP amplitudes, and normal MNCV across popliteal fossa segment. ??? Left peroneal motor nerve conduction study from left tibialis anterior showed normal DML, normal CMAP amplitudes, and normal MNCVs across popliteal fossa segment. ??? EMG: The study was done with concentric needle electrode of above tested muscles in the right lower extremity including L5 paraspinal muscle. There was increased spontaneous activity in right tibialis anterior, right gastrocnemius (medial head), right peroneus longus, and L5 paraspinal muscle due to the presence of fibrillations, suggesting neurogenic changes (active denervation). There was increased insertional activity noted in the right peroneus longus and right gluteus medius (complex repetitive discharges), suggesting chronic denervation. Reduced recruitment was noted in right tibialis anterior and right peroneus longus, also supporting evidence of a neurogenic process. 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 This conclusion is based on absentright peroneal superficial antidromic sensory response, absent right peroneal motor response when recorded from the EDB muscle, small CMAP amplitudes with prolonged distal latency of the right peroneal motor nerve when recorded from the TA muscle and finally active denervation associated with chronic reinnervation changes noted in a few muscles innervated by the right peroneal nerve. 2- There is also electrodiagnostic evidence of right sided L5/S1 polyradiculopathy based on active denervation associated with chronic denervation changes noted in the right lower extremity proximal and distal including right L5 paraspinal muscle. Clinical and imaging correlations are suggested._ Sasha Modi MD, Viviana Emanuel MD documented in this encounter Plan of Treatment Upcoming Encounters Date Type Department Care Team (Late st Contact Info) Description 04/04/2024 8:30 AM GENETIC COORDINATOR Office Visit [facility] - Dermatology [address] [place] [address], [place] [phone] Marlys Zaragoza MD [address] [place] [address] 3 [place] [address] 09/03/2024 9:00 AM CDT Office Visit [facility] - Neurology [address] [place] [address], [place] [address] Melissa Crook APRN-COMBAT RIFLE CREWMEMBER [address] [place] [phone] Scheduled Orders Name Type Priority Associated Diagnoses Orde r Schedule EMG WITH NERVE CONDUCTION STUDY Neurology Routine Foot drop, right 1 Occurrences starting 08/04/2021 until 08/04/2021 documented as of this encounter Visit Diagnoses Diagnosis Foot drop, right Other acquired deformity of ankle and foot documented in this encounter Care Teams Power Plant Electrician Relationship Specialty Start Date End Date Lauren Saba, LISETTE-COMBAT RIFLE CREWMEMBER [address] [place] [phone] PCP - General 01/14/18 05/10/23 documented as of this encounter
--- OUTSIDE RECORDS SUMMARY | 2024-03-22 16:37 | XMS_ITS | Encounter Summary ---
Author Organization [facility] Address [address] [place] [address] Care Team Providers Care High School Foreign Language Tutor Name Role Phone Lauren Saba Jose Eduardo KNOX-TRAFFIC OPERATIONS MANAGER Primary Care Provider Reason for Visit * Reason Onset Date Comments Order 07/22/2021 Encounter Details Date Type Department Care Team (Late st Contact Info) Description 07/22/2021 Telephone [facility] [address] [facility], [place] [address] Markus Cabral MD [address] [place] [address] Order Social History Tobacco Use Types Packs/Day [...] encounter Miscellaneous Notes * Telephone Encounter - Dlima Gruber RN - 07/22/2021 3:32 PM CDT AFO orders received from [facility]. Dr. Nieto reviewed and signed and faxed back to Hyun Arboleda at [phone] documented in this encounter Plan of Treatment Upcoming Encounters Date Type Department Care Team (Late st Contact Info) Description 04/04/2024 8:30 AM BEAD PICKER Office Visit [facility] - Dermatology [address] [place] [address], [place] [phone] Marlys Zaragoza MD [address] [place] [address] 3 [place] [phone] 09/03/2024 9:00 AM CDT Office Visit [facility] Neurology [address] [facility], [place] [address] Melissa Crook APRN-CNP [address] [place] [address] documented as of this encounter Visit Diagnoses Not on filedocumented in this encounter Care Teams High School Foreign Language Tutor Relationship Specialty Start Date End Date Lauren Saba APRN-NAIF [address] [place] [phone] PCP - General 01/14/18 05/10/23 documented as of this encounter
--- OUTSIDE RECORDS SUMMARY | 2024-03-22 16:37 | XMS_ITS | Encounter Summary ---
Author Organization [facility] Health Address [address] [facility] [place] [address] Care Team Providers Care Nurse Instructor Name Role Phone Lauren Saba Jose Eduardo KNOX-PROBATE JUDGE Primary Care Provider Reason for Visit * Reason Comments Lesions fbse Encounter Details Date Type Department Care Team (Late st Contact Info) Description 10/06/2021 2:40 PM CDT Office Visit [facility] [address] [facility], [place] [phone] Marlys Zaragoza MD [address] [facility] 3 [place] [phone] Acne vulgaris (Primary Dx); Multiple nevi; Mustafa angioma; Lentigines; Seborrheic keratosis Social History Tobacco Use [...] as of this encounter Progress Notes * Marlys Zaragoza MD - 10/06/2021 3:07 PM CDT Chief Complaint Patient presents with ??? Lesions fbse HPI: Meredith Frost a 40 year old female presents for follow up of acne and skin check. Patient was last seen on 10/2020 Today she notes acne is well controlled on tretinoin 0.05% cream and benzoyl peroxide. She notes new spots on body. None are itching, bleeding or painful. PE: No acute distress. Mood clear/affect appropriate. Alert and oriented. Mucous membranes moist. Sclera anicteric. Full body skin exam was conducted to include the scalp, face, lips/teeth, lids/conjunctiva, ears, neck, chest, abdomen, back, groin/buttock, right and left hands and forearms, right and left leg and feet and was normal with the following exceptions: -No active acne on the face - scattered photo distributed valentine to brown macules - Brown symmetric macules and papules on trunk and extremities c/w benign melanocytic nevi - Mustafa red macules and papules scattered on trunk and extremities - Stuck on valentine to brown papules on trunk and extremities A/P: Meredith was seen today for acne and rash. Diagnoses and all orders for this visit: Acne vulgaris - Chronic, at goal - tretinoin (RETIN-A) 0.05 % cream; Apply a pea-sized amount to entire face QHS. 30 day supply. - Continue Benzyl peroxide wash each morning Lentigines - Reassured of benign appearance today - Continue sun protection with sunscreen, sun protective clothing and sun avoidance Multiple benign appearing nevi - Reassured patient if benign appearance today - Continue in office and self skin examinations - ABCDE of melanoma discussed - Continue sun protection with sunscreen, sun protective clothing and sun avoidance Seborrheic keratosis - Reassured of benign appearance today Mustafa angiomas - Reassured of benign appearance today RTC in 1 year Coding Rationale New or est? Established Patient Marlys Zaragoza MD Clinical Director Digital Marketing of Dermatology [facility] documented in this encounter Plan of Treatment Upcoming Encounters Date Type Department Care Team (Late st Contact Info) Description 04/04/2024 8:30 AM PARKING LOT SIGNALER Office Visit [facility] - Dermatology [address] [place] [phone] Marlys Zaragoza MD [address] [place] [address] [place] [phone] 09/03/2024 9:00 AM CDT Office Visit [facility] - Neurology [address] [place] [phone] Melissa Crook, COMMERCIAL SALES MANAGER-PROBATE JUDGE [address] [place] [address] documented as of this encounter Visit Diagnoses Diagnosis Acne vulgaris- Primary Other acne Multiple nevi Benign neoplasm of skin, site unspecified Mustafa angioma Nevus, non-neoplastic Lentigines Other dyschromia Seborrheic keratosis documented in this encounter Care Teams Nurse Instructor Relationship Specialty Start Date End Date Lauren Saba, COMMERCIAL SALES MANAGER-PROBATE JUDGE [address] [place] [phone] PCP - General 01/14/18 05/10/23 documented as of this encounter
--- OUTSIDE RECORDS SUMMARY | 2024-03-22 16:37 | XMS_ITS | Encounter Summary ---
Author Organization [facility] Health Address [address] [facility] [place] [address] Care Team Providers Care Captain Cannery Tender Name Role Phone Wandy Laurenreilly Whitt APRN-ESE TEACHER Primary Care Provider Reason for Visit * Reason Onset Date Comments MEDICATION REFILL 08/10/2021 Encounter Details Date Type Department Care Team (Late st Contact Info) Description 08/10/2021 Telephone [facility] [address] [facility] [place] [address] Marlys Zaragoza MD [address] [facility] 3 [place] [address] MEDICATION REFILL Social History Tobacco [...] encounter Miscellaneous Notes * Telephone Encounter - Rachna Manley - 08/10/2021 1:51 PM CDT CRISTELA 10/29/2020 NOV 10/06/21 OK to refill? tretinoin (RETIN-A) 0.05 % cream It was DC'd on 04/11/21 Rachna Manley PARTS ADMINISTRATOR documented in this encounter Plan of Treatment Upcoming Encounters Date Type Department Care Team (Late st Contact Info) Description 04/04/2024 8:30 AM EDGER AUTOMATIC Office Visit [facility] - Dermatology [address] [place] [address], [place] [phone] Marlys Zaragoza MD [address] [place] [address] [address] [place] [phone] 09/03/2024 9:00 AM CDT Office Visit [facility] - Neurology [address] [place] [address], [place] [phone] Melissa Crook APRN-NAIF [address] [place] [phone] documented as of this encounter Visit Diagnoses Not on filedocumented in this encounter Care Teams Captain Cannery Tender Relationship Specialty Start Date End Date Lauren Saba APRN-NAIF [address] [place] [phone] PCP - General 01/14/18 05/10/23 documented as of this encounter
--- OUTSIDE RECORDS SUMMARY | 2024-03-22 16:37 | XMS_ITS | Encounter Summary ---
Author Organization [facility] Health Address [address] [place] [address] Care Team Providers Care Splitter Head Name Role Phone Lauren Saba Jose Eduardo KNOX-RAILWAY EQUIPMENT OPERATOR Primary Care Provider Reason for Visit * Reason Comments Botox Encounter Details Date Type Department Care Team (Latest Contact Info) Description 01/18/2022 9:00 AM CDT Procedure visit [facility] Neurology [address] [place] [address], [facility] [place] [address] Mckayla Haywood MD [address] [place] [address] [place] [address] Intractable chronic 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 without status migrainosus ; Intractable migraine without status migrainosus, unspecified migraine type Social History Tobacco Use Types Packs/Day Years Used Date Smoking Tobacco: Never Smokeless Tobacco: Never Tobacco Cessation:Counseling Given: Not Answered Alcohol Use Standard Drinks/Week Comments Yes 8 [...] Sign Reading Time Taken Comments Blood Pressure 109/77 01/18/2022 9:20 AM CDT Pulse 103 01/18/2022 9:20 AM CDT Temperature 36.7 ??C (98.1 ??F) 01/18/2022 9:20 AM CD T Respiratory Rate - - Oxygen Saturation 97% 01/18/2022 9:20 AM CDT Inhaled Oxygen Concentration - - Weight 64.9 kg (143 lb) 01/18/2022 9:20 AM CDT Height 165.1 cm (5' 5 ) 01/18/2022 9:20 AM CDT Body Mass Index 23.8 01/18/2022 9:20 AM CDT documented in this encounter [...] Progress Notes * Mckayla Haywood MD - 01/18/2022 9:00 AM CDT The patient has a long history of chronic migraine, which has been unresponsive to multiple medications. The patient has nausea and light sensitivity with headaches. Here for botox for chronic migraine. The patient has had significant benefit from Botox with a greater than 50% reduction in headache frequency and severity. She is also seen in MS clinic and epilepsy clinic. Current Outpatient Medications Medication Sig Dispense Refill ??? Lata Maintena 300 MG injection Inject 300 (three [...] fluticasone propionate (FLONASE) 50 MCG/ACT nasal spray [place] 2 (two) sprays into each nostril once [...] 2 times daily 180 tablet 3 ??? mirabegron ER 24hr (MYRBETRIQ) [...] Reported on 01/12/2022) 20 g 11 ??? zonisamide (ZONEGRAN) 100 MG capsule Take 5 (five) capsules by mouth at bedtime Reasons: Focal Epilepsy 450 capsule 3 Current Facility-Administered Medications Medication Dose Route Frequency Provider Last Rate Last Admin ??? ARIPiprazole ER (Abiliflenore Maintena) prefilled syringe 300 mg 300 mg Intramuscular q28 days Venkata Glez MD 300 mg at 12/30/21 1024 There were no vitals taken for this visit. Awake, alert, CN: Extraocular movements intact Motor: Moves all extremities symmetrically Diagnosis: Chronic migraine without aura,intractable, Without status migrainosus Administer Botox for chronic migraine today. See procedure note for details. documented in this encounter Procedure Notes * Mckayla Haywood MD - 01/18/2022 9:09 AM CDTAssociated Order(s): PROC INJECTION - BOTOX Procedure(s): [place] CHEMODENERV MUSC MIGRAINE Pre-Procedure Diagnose(s): Intractable chronic 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 without status migrainosus Post-Procedure Diagnose(s): Intractable chronic 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 without status migrainosus Botox Procedure Note ?? Patient's identity confirmed by having patient say first and last name, and date of . ?? Diagnosis: Chronic migraine ?? Procedure code: 28996 ?? History: ?? Baseline number of headaches [...] treatments: none ? Date of last injection: 10/21/2021 ?? Duration of benefit: 2-3 months ?? [...] Info) Description 04/04/2024 8:30 AM PROFESSOR OF FLORICULTURE Office Visit [facility] - Dermatology [address] [place] [address], [place] [phone] Marlys Zaragoza MD [address] [facility] 3L [place] [phone] 09/03/2024 9:00 AM CDT Office Visit [facility] - Neurology [address] [facility], [place] [phone] Melissa Crook, REGISTERED TRAVEL NURSE-RAILWAY EQUIPMENT OPERATOR [address] [place] [phone] documented as of this encounter Procedures Procedure Name Priority Date/Time Associated Diagnosis Comments [place] CHEMODENERV MUSC MIGRAINE Routine 01/18/2022 9:09 AM CDT Intractable chronic 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 without status migrainosus documented in this encounter Results * [place] CHEMODENERV MUSC MIGRAINE (01/18/2022 9:09 AM CDT) Narrative Mckayla Haywood MD - 01/18/2022 9:09 AM CDT Mckayla Haywood MD ? 01/18/2022 10:03 AM Botox Procedure Note ?? Patient's identity confirmed by having patient say first and last name, and date of . ?? Diagnosis: Chronic migraine ?? Procedure code: 16599 ?? History: ?? Baseline number of headaches [...] so stated, without mention of status migrainosus Intractable migraine without status migrainosus, unspecified migraine type documented in this encounter Administered Medications Inactive Administered Medications - up to 3 most recent administrations Medication Order MAR Action Action Date Dose Rate Site onabotulinumtoxin A (Botox) injection 200 Units 200 Units, Intramuscular, ONCE, 1 dose, On Sun01/18/22 at 0915 $ Given 01/18/2022 10:03 AM CDT 200 Units Head documented in this encounter Care Teams Splitter Head Relationship Specialty Start Date End Date Lauren Saba APRN-RAILWAY EQUIPMENT OPERATOR [address] [place] [address] PCP - General 01/14/18 05/10/23 documented as of this encounter
--- OUTSIDE RECORDS SUMMARY | 2024-03-22 16:37 | XMS_ITS | Encounter Summary ---
Author Organization [facility] Health Address [address] [place] [address] Care Team Providers Care Real Estate Loan Officer Name Role Phone Lauren Saba APRN-TRACTION POWER ENGINEER Primary Care Provider A, Unknown Practice Primary Care Provider [phone] Unknown, Provider Primary Care Provider Joy Garvey PA-C Primary Care Provider [phone] Encounter Details Date Type Department Care Team (Late st Contact Info) Description 05/12/2022 Telephone [facility] D[facility]at[facility] [address] [facility], [place] [phone] Marlys Zaragoza MD [address] [place] [address] 3 DEPT [place] [address] Social History Tobacco Use Types [...] encounter Miscellaneous Notes * Telephone Encounter - Sarina Elaine - 05/12/2022 3:57 PM CST PT is calling bc she talked to [facility] and they need an PA on this RX. Pt [phone] ESTATE OPERATIONS MANAGER * Telephone Encounter - Italo Saavedra - 05/12/2022 10:54 AM CST Patient called in requesting a Med refill. Drug type:tretinoin (RETIN-A) 0.05 % cream Pharmacy:[id number] Patient call back number: [phone] . ESTATE OPERATIONS MANAGER documented in this encounter Plan of Treatment Upcoming Encounters Date Type Department Care Team (Late st Contact Info) Description 04/04/2024 8:30 AM REAL ESTATE OPERATIONS MANAGER Office Visit [facility] - Dermatology [address] [place] [address] [place] [phone] Marlys Zaragoza MD [address] [facility] 3L DEPT [place] [phone] 09/03/2024 9:00 AM CDT Office Visit [facility] - Neurology [address] [facility], [place] [phone] Melissa Crook, CONTRACTS REPRESENTATIVE-TRACTION POWER ENGINEER [address] [place] [phone] documented as of this encounter Visit Diagnoses Not on filedocumented in this encounter Care Teams Real Estate Loan Officer Relationship Specialty Start Date End Date Lauren Saba, CONTRACTS REPRESENTATIVE-TRACTION POWER ENGINEER [address] [place] [address] PCP - General 01/14/18 05/10/23 A, Unknown Practice [address] [place] [address] PCP - General 05/11/23 09/10/23 Unknown, Provider PCP - General 09/11/23 01/28/24 Joy Sheppard PA-C [address] [place] [phone] PCP - General 01/29/24 documented as of this encounter
--- OUTSIDE RECORDS SUMMARY | 2024-03-22 16:37 | XMS_ITS | Encounter Summary ---
Author Organization [facility] Health Address [address] [place] [address] Care Team Providers Care Shell Molder Name Role Phone Lauren Saba APRN-PROJECT MANAGEMENT ENGINEER Primary Care Provider A, Unknown Practice Primary Care Provider [phone] Unknown, Provider Primary Care Provider Joy Garvey PA-C Primary Care Provider [phone] Encounter Details Date Type Department Care Team (Late st Contact Info) Description 01/19/2022 Telephone [facility] [address] [place] [address] Enoch Porter MD [address] [facility] [place] [phone] Social History Tobacco Use Types Packs/Day Years [...] encounter Miscellaneous Notes * Telephone Encounter - Jolene Borjas - 01/19/2022 8:27 AM CDT Current Provider name:Dr. Enoch Porter Reason for call: Ms. Meredith Short's OBGYN Nurse called (with [facility] [phone]), herTrichomoniasis continues. Her new appt is 03/02/2022, her first NEW appt w/ you was 12/22/2021. She was just retested and Nurse doesn't know if she has anymore medicine. Since she can't be seen sooner, could you prescribe another script, can she come in to see different provider, I told nurse I can't randomly change provider. Please advise. Please call patient, not nurse, Deja Patient Call Back number: [phone] Meredith Frost documented in this encounter Plan of Treatment Upcoming Encounters Date Type Department Care Team (Late st Contact Info) Description 04/04/2024 8:30 AM EDUCATION REVIEWER Office Visit [facility] - Dermatology [address] [facility], [place] [phone] Marlys Zaragoza MD [address] [facility] 3L [place] [phone] 09/03/2024 9:00 AM CDT Office Visit [facility] - Neurology [address] [facility], [place] [phone] Melissa Crook, WOOD ENGRAVER-PROJECT MANAGEMENT ENGINEER [address] [place] [address] documented as of this encounter Visit Diagnoses Not on filedocumented in this encounter Care Teams Shell Molder Relationship Specialty Start Date End Date Lauren Saba, WOOD ENGRAVER-PROJECT MANAGEMENT ENGINEER [address] [place] [address] PCP - General 01/14/18 05/10/23 A, Unknown Practice [address] [place] [address] PCP - General 05/11/23 09/10/23 Unknown, Provider PCP - General 09/11/23 01/28/24 Joy Sheppard PA-C [address] [place] [phone] PCP - General 01/29/24 documented as of this encounter
--- OUTSIDE RECORDS SUMMARY | 2024-03-22 16:37 | XMS_ITS | Encounter Summary ---
Author Organization [facility] Health Address [address] [place] [address] Care Team Providers Care Printed Circuit Boards Solder Leveler Name Role Phone ViequesLauren APRN-POT MAKER Primary Care Provider Reason for Visit * Reason Comments Establish Care Seizure * Evaluate & Treat (Routine) - Closed Specialty Diagnoses / Procedures Referred By Contac t Referred To Contact Neurology Diagnoses Seizures (HCC) Markus Cabral MD [address] [place] [address] [address] [facility] [address] [place] [address] Referral ID Status Reason Start Date Expiration Date V isits Requested Visits Authorized [id number] Closed Specialty Services Required 05/04/2022 05/04/2023 1 1 Encounter Details Date Type Department Care Team (Late st Contact Info) Description 06/14/2022 9:00 AM CDT Office Visit [facility] [address] [place] [address] Markus Cabral MD [address] [place] [address] Melissa Crook APRN-POT MAKER [address] [place] [address] Seizures (HCC) (Primary Dx) Social History Tobacco [...] Sign Reading Time Taken Comments Blood Pressure 116/76 06/14/2022 9:24 AM CDT Pulse 84 06/14/2022 9:24 AM CDT Temperature 36.6 ??C (97.9 ??F) 06/14/2022 9:24 AM CD T Respiratory Rate - - Oxygen Saturation 98% 06/14/2022 9:24 AM CDT Inhaled Oxygen Concentration - - Weight 70.8 kg (156 lb) 06/14/2022 9:24 AM CDT Height 165.1 cm (5' 5 ) 06/14/2022 9:24 AM CDT Body Mass Index 25.96 06/14/2022 9:24 AM CDT documented in this encounter Functional [...] * Patient Instructions* Melissa Crook APRN-CNP - 06/14/2022 9:44 AM CDT Follow-up in 3 months -Obtain labs, sent to [facility] -Continue current medication regimen -Report any seizure events via [facility] or calling clinic -You'll be call to schedule your neuropsychological evaluation documented in this encounter Progress Notes * Melissa Crook APRN-CNP - 06/14/2022 9:00 AM CDT Epilepsy Clinic Note PCP ADI Botello DATE OF ENCOUNTER: 06/14/2022 CHIEF COMPLAINT: Seizures AGE OF ONSET 24 years old SEMIOLOGY ?? - Aura lightheaded - Ictus #1.) Generalized tonic clonic, LOC, foaming at mouth Duration: 1-2 minutes Frequency: every few months? (previously controlled for 10+ years til 04/15/19) - Post-ictus Sleepy, fatigue, confusion ?? SEIZURE CONTROL Date of last seizure 05/01/2022 PRE-VISIT MEDICATION Name Pill Size Frequency Total/Day Level Zonisamide 100 0-5 500mg/day 20.2 (04/10) lacosamide 200mg 1-1 400mg/day 7.3 (04/10) levetiracetam 500mg 1-1 1,000mg/day Folic acid 1mg 1-0 COMPLIANCE Good AGGRAVATING FACTORS: infections (UTIs), stress TREATMENT HISTORY Name Allergy/Side Effects/Ineffectiveness Topamax Memory problems EE02/03/2021: [facility] (Dr. Terrell) Interpretation: This is an abnormal EEG due to 1) left frontotemporal epileptiform discharges, 2) left hemispheric slowing maximal around the left temporal region, and 3) mild to moderate generalized slowing. 01/03/2021: [facility] (Dr. Angel) Impression: ??Abnormal EEG. ??Left frontal spike and wave and focal slowing, still present, but much less frequent with more return to normal background than seen on previous EEG. ??No seizure like activity was observed. Correlation with clinical findings is Needed. 12/31/2020: [facility] (Dr. Angel) Impression: ??Abnormal EEG. ??Left frontotemporal discharges with focal slowing, suggests likely epileptogenicity from this region. ??No clinical seizures were seen. ??Correlation with clinical findings is needed. 04/15/2019: [facility] IMPRESSION: ??Normal awake and drowsy record IMAGIN05/13/2022: MRI Brain WWO Contrast: [facility] IMPRESSION: 1.Multiple intracranial white matter lesions [...] LABORATORY RESULTS CBC: Recent Labs Component Name 04/12/22 1337 06/29/21 1410 05/13/21 1509 WBC 8.3 17.8* 12.3* HGB 10.9* 11.7* 11.8* PLTCOUNT 451* 469* 375 BMP: Recent Labs Component Name 04/12/22 1337 06/29/21 1410 05/13/21 1509 04/08/21 1552 NA - 141 140 143 CO2 25 24 21* 23 CREATININE 0.63 0.66 0.72 0.67 LFT: Recent Labs Component Name 04/12/22 1337 06/29/21 1410 05/13/21 1509 AST 11 11 10 ALT 14 11 11 VITAMIN D: Recent Labs Component Name 05/22/18 1040 03/09/17 1445 11/28/16 1333 CHCB84SA 43.5 41 48 Recent Labs Component Name 04/12/22 1337 01/07/21 0931 05/16/19 1159 ZONISAMIDE 20.2 15 14.2 No results for input(s): TOPIRAMATE in the last 04315 hours. Recent Labs Component Name 05/16/19 1159 LEVETIRACETM 17.5 No results for input(s): OXCARBAMETAB in the last 93287 hours. Recent Labs Component Name 04/12/22 1337 01/07/21 0931 LACOSAMIDE 7.3 2.4* HPI: History of Epilepsy: Meredith Frost is a 41 year old female referred to [facility] Epilepsy clinic for seizures. PMH migraines, [...] do not become controlled with medication management. Risk factors: Complex febrile seizure Hx no Head trauma Hx no COMMUNICATIONS PROJECT MANAGER Infection Hx no Family Epilepsy Hx no [...] (Patient not taking: Reported on 01/12/2022) ??? ALPRAZolam (Xanax) 0.5 MG tablet Take one pill 30 min before MRI. May repeat once. Bring some one to drive you. ??? baclofen (LIORESAL) 10 MG tablet Take [...] fluticasone propionate (FLONASE) 50 MCG/ACT nasal spray [place] 2 (two) sprays into each nostril once daily ??? folic acid (Folvite) 1 MG tablet Take 1 (one) tablet by mouth once daily ??? ibuprofen (Motrin) 800 MG tablet Take 1 (one) tablet by mouth every 6 hours as needed for Pain ??? lacosamide (Vimpat) 200 MG tablet Take 1 (one) tablet by mouth 2 times daily ??? levETIRAcetam (Keppra) 500 MG tablet Take 1 (one) tablet by mouth 2 times daily ??? mirabegron ER 24hr (MYRBETRIQ) 50 MG [...] every 4 hours as needed ??? zonisamide (ZONEGRAN) 100 MG capsule Take 5 (five) capsules by mouth at bedtime Reasons: Focal Epilepsy Current Facility-Administered Medications Medication ??? ARIPiprazole ER (Abilify Maintena) prefilled syringe 300 mg Past Medical [...] Disabled Tobacco Use ??? Smoking status: Never ??? Smokeless tobacco: Never Vaping Use ??? Vaping Use: Never used Substance and Sexual Activity ??? Alcohol use: Not Currently Alcohol/week: 8.0 standard drinks Types: 6 Cans [...] on file Transportation Needs: Not on file Stress: Not on file Housing Stability: Not on file control no Folic acid no no Alcohol usage no Illicit substance no Marijuana usage yes Physical Exam: BP 116/76 Pulse 84 Temp 97.9 ??F (36.6 ??C) (Temporal) Ht 1.651 m (5' 5 ) Wt 70.8 kg (156 lb) SpO2 98% General : HEENT: Head normocephalic and atraumatic Extremities: No cyanosis or edema noted Cortical Function: MS: Awake, Alert, Follows Commands Oriented to Person, Place and Time Language: Fluent, Coherent VF Intact to confrontation test Neglect No visual neglect, No tactile neglect Cranial Nerves: Pupils 4 mm BRTL, Full EOM, No ptosis or nystagmus Facial sensation intact bilaterally to LT; No facial palsy Hearing intact Palate symmetric; Normal tongue protrusion Motor: Moves all extremities to command Assessment/Plan: Meredith Frost is a 41 year old female with history of epilepsy, likely focal. Seizure previously controlled for 10+ years til breakthrough seizure on 04/15/19. Recurrent seizure every few months? Third ASM agent recently added. No further seizure events since. Continue current regimen. MS: -Followed by Dr. Cabral Migraines: -Followed by Dr. Haywood Major Neurocognitive Disorder -Last evaluation done 08/2021, recommended every 12 months -referral placed to neuropsychology for evaluation -Obtain labs with next blood draw -Report any seizure events -Continue Zonisamide 500mg nightly -Continue Vimpat 200mg BID -Continue levetiracetam 500mg BID (plan to further optimize with any recurrent seizure) -Future consideration: EMU for further event characterization/surgical evaluation if seizures do not become controlled on ASMs. Follow-up in 3-4 months or sooner if problems arise Patient agrees and voices understanding of plan of care listed above. POST-VISIT MEDICATION (Current as of 06/14/2022) Name Pill Size Frequency Total/Day Level Zonisamide 100 0-5 500mg/day 20.2 (04/10) lacosamide 200mg 1-1 400mg/day 7.3 (04/10) levetiracetam 500mg 1-1 1,000mg/day Folic acid 1mg 1-0 1mg/day I told [...] should be used under supervision of a clay products machine operator. If oral contraception must be used, a higher dosage may be required under supervision of a clay products machine operator. She was instructed to inform the Neurology Clinic in the event of any planned or unplanned . I personally spent 60 minutes on 06/14/2022 preparing to see the patient (e.g. reviewing chart, review of tests), obtaining and/or reviewing the separately obtained history, performing a medically necessary and appropriate examination and evaluation, counseling and educating the patient/family/caregiver, ordering medications, tests, or procedures, documenting in the patient record, and communicating results to the patient/family/caregiver. Melissa ADI Crook 06/14/2022 [facility] documented in this encounter Plan of Treatment Upcoming Encounters Date Type Department Care Team (Late st Contact Info) Description 04/04/2024 8:30 AM MULT AU MATIC OPERATOR Office Visit [facility] - Dermatology [address] [place] [address], [place] [address] Marlys Zaragoza MD [address] [place] [address] [address] [place] [phone] 09/03/2024 9:00 AM CDT Office Visit [facility] - Neurology [address] [place] [address], [place] [address] Melissa Crook APRN-CNP [address] [place] [phone] documented as of this encounter Visit Diagnoses Diagnosis Seizures (HCC)- Primary Other convulsions documented in this encounter Care Teams Printed Circuit Boards Solder Leveler Relationship Specialty Start Date End Date Lauren Saba APRN-CNP [address] [place] [phone] PCP - General 01/14/18 05/10/23 documented as of this encounter
--- OUTSIDE RECORDS SUMMARY | 2024-03-22 16:37 | XMS_ITS | Encounter Summary ---
Author Organization [facility] Health Address [address] [facility] [place] [address] Care Team Providers Care Security Systems Engineer Name Role Phone Lauren Saba Jose Eduardo KNOX-INVESTMENT BANKING ANALYST Primary Care Provider Encounter Details Date Type Department Care Team (Late st Contact Info) Description 06/29/2021 Orders Only [facility] [address] [facility], [place] [phone] Markus Cabral MD [address] [place] [address] Seizures (HCC) Social History Tobacco Use Types [...] st Contact Info) Description 04/04/2024 8:30 AM SENIOR PATROL AGENT Office Visit [facility] - Dermatology [address] [place] [address] [place] [phone] Marlys Zaragoza MD [address] [place] [address] [place] [phone] 09/03/2024 9:00 AM CDT Office Visit [facility] - Neurology [address] [place] [phone] Melissa Crook APRN-NAIF [address] [place] [phone] documented as of this encounter Visit Diagnoses Diagnosis Seizures (HCC) Other convulsions documented in this encounter Care Teams Security Systems Engineer Relationship Specialty Start Date End Date Lauren Saba APRN-INVESTMENT BANKING ANALYST [address] [place] [phone] PCP - General 01/14/18 05/10/23 documented as of this encounter
--- OUTSIDE RECORDS SUMMARY | 2024-03-22 16:37 | XMS_ITS | Encounter Summary ---
Author Organization [facility] Health Address [address] [facility] [place] [address] Care Team Providers Care Sensor Operator Name Role Phone Lauren Saba Jose Eduardo KNOX-WELLNESS HEALTH COACH Primary Care Provider Reason for Referral * Radiology Services (Routine) - Closed Specialty Diagnoses / Procedures Referred By Contdanny t Referred To Contact MRI Diagnoses MS (multiple sclerosis) (HCC) Procedures MRI BRAIN WWO CONTRAST Jamin Cabral MD [address] [place] [phone] [facility] Mri [address] [place] [address] Referral ID Status Reason Start Date Expiration Date Visits Re quested Visits Authorized [id number] Closed 05/08/2022 08/06/2022 1 1 EM FUSER TENDER Reason for Visit * Reason Comments Multiple Sclerosis Encounter Details Date Type Department Care Team ([facility] Contact Info) Description 04/06/2022 11:00 AM EMBLEM FUSER TENDER Office Visit [facility] [address] [facility], [place] [phone] Jamin Cabral MD [address] [place] [address] [phone] MS (multiple sclerosis) (HCC) (Primary Dx); Seizures (HCC); High risk medications (not anticoagulants) long-term use; Neurogenic bladder; Therapeutic drug monitoring Social History Tobacco Use Types Packs/Day Years [...] Sign Reading Time Taken Comments Blood Pressure 109/72 04/06/2022 10:52 AM EMBLEM FUSER TENDER Pulse 94 04/06/2022 10:52 AM EMBLEM FUSER TENDER Temperature 36.6 ??C (97.9 ??F) 04/06/2022 10:[address] Respiratory Rate - - Oxygen Saturation 98% 04/06/2022 10:52 AM EMBLEM FUSER TENDER Inhaled Oxygen Concentration - - Weight 65.8 kg (145 lb) 04/06/2022 10:52 AM EMBLEM FUSER TENDER Height 165.1 cm (5' 5 ) 04/06/2022 10:52 AM EMBLEM FUSER TENDER Body Mass Index 24.13 04/06/2022 10:52 AM EMBLEM FUSER TENDER documented in this encounter Functional Status Functional [...] this encounter Patient Instructions * Patient Instructions* Rigo Collado MD - 04/06/2022 11:33 AM EMBLEM FUSER TENDER - We will continue ocrelizumab infusions every 6 months - We ordered some blood and brain imaging - We referred you to urology clinic to further identify cause of frequent infections - We also referred you to seizure clinic to see if we need to change your current seizure regimen - We will see you back in early June. EM FUSER TENDER documented in this encounter Progress Notes * Rigo Collado MD - 04/06/2022 11:03 AM CST Neurology Note Date of Encounter: 04/06/22 Chief Complaint: follow up for MS HPI: Meredith Frost is a 40 year old female who is being seen for follow up regard multiple sclerosis.She had her first symptoms at around 2006.?Has [...] outside hospital,??and Vimpat was added in addition to zonisamide.??Between 02/2021 - 06/2021, Pt suffered a fall that resulted in right ankle and tibial fracture, required metallic cast x 3 months. Also had 2 admission to psych for worsening paranoia. During hospitalization, she noted right foot drop and required soft ankle brace. On 06/29/2021, she endorsed right foot drop, new since prior visit. 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 Interval history: - She was in the ED at [facility] where she presented with seizure in settings of UTI vs PID(she does have positive trichomonas since 2020, was treated w/ flagyl and diflucan. She was alone and herself called 911 as she had a seizure, her current antiseizure meds were not changed and she denies to be missing any. - As per MS, she does feel fine and she does not have any new clinical relapses. - Last MRI 10/2020 which were not changed from prior. - Her next ocrevus infusion is on 07/21/2022. Allergies: No Known Allergies Home Medications: Current Outpatient Medications Medication Sig ??? Abilify [...] fluticasone propionate (FLONASE) 50 MCG/ACT nasal spray Marfa 2 (two) sprays into each nostril once daily ??? folic acid (Folvite) 1 MG tablet Take 1 (one) tablet by mouth once daily ??? ibuprofen (Motrin) 800 MG tablet Take 1 (one) tablet by mouth every 6 hours as needed for Pain ??? mirabegron ER 24hr (MYRBETRIQ) 50 MG [...] tablet by mouth once daily ??? tretinoin (RETIN-A) 0.05 % cream Pea sized amount to entire face at night. 30 days supply. (Patient not taking: Reported on 01/12/2022) ??? Ventolin HFA 108 (90 Base) MCG/ACT inhaler Inhale 2 (two) puffs by mouth every 4 hours as needed ??? Vimpat 200 MG tablet TAKE 1 TABLET BY MOUTH TWICE DAILY ??? zonisamide (ZONEGRAN) 100 MG capsule Take 5 (five) capsules by mouth at bedtime Reasons: Focal Epilepsy Current Facility-Administered Medications Medication ??? ARIPiprazole ER (Abiliflenore Maintena) prefilled syringe 300 mg PMH: Past Medical History: Diagnosis Date ??? Asthma ??? Migraines ??? MS (multiple sclerosis) (CMS/HCC) ??? PID (pelvic inflammatory disease) ??? Seizures (CMS/HCC) Family History: Family History Problem Relation Name [...] on file Housing Stability: Not on file Physical Exam: Vitals: 04/06/22 1052 BP: 109/72 Pulse: 94 Temp: 97.9 ??F (36.6 ??C) SpO2: 98% Weight: 65.8 kg (145 lb) Height: 1.651 m (5' 5 ) General: Con - NAD, afebrile Cortical Function Mental Status Awake, alert, follows commands Orientation Person, place, time, and situation Language Fluency intact, comprehension intact, repetition intact Visual De Intact bilaterally to confrontation Neglect No visual neglect noted, no tactile neglect noted Cranial Nerves II Pupils 4 mm and bilaterally reactive to light. Fundoscopic exam not performed. VIII Hearing is [...] abnormalities noted Bulk No abnormalities noted Tone No abnormalities noted Proximal Upper Distal Upper Proximal Lower Distal Lower Right 5/5 5/5 5/5 5/5 Left 5/5 5/5 5/5 5/5 Neck flexors - 5/5 Neck extensors - 5/5 Muscle Stretch Reflexes BI TRI BR PAT ACH TOES Right 2 2 2 2 2 Down Left 2 2 2 2 2 Down Sensory Large Fiber Sensation Light Touch Symmetrically intact, distally and proximally. Cerebellar FNF BERNICE HKS Right Intact Deferred Intact Left Intact Deferred Intact Gait normal Assessment: Ms. Frost is a 40yo lady who is here for follow up for RRMS. She does have major cognitive dysfunction and epilepsy due to MS. Comorbid psychiatric disorder managed by psychiatry and neuropsychology. ?? She is clinically and radiologically stable on Ocrevus as of now. She continues to have frequent UTIs vs PID with chronically positive trichomonas, had reported breakthrough seizure on 03/09 while having UTI vs PID. She will see her ObGyn soon for further discussion on treatment on PID. MS can cause urinary retention as that may lead to frequent UTIs as well. Plan: - We will continue ocrelizumab infusions every 6 months - We ordered blood and brain imaging (MRI brain wwo) - We referred you to urology clinic to further identify cause of frequent infections and complete urodynamic studies if needed - Continue vimpat 200mg BID and zonisomide 500mg qhs for now .Will Discuss with epilepsy about AED options and consider referral. - We will see you back in early June Case findings discussed with Dr. Nieto, Neurology Attending. Rigo Collado MD Neurology Resident I have examined the patients and discussed the findings of my examination with the patient and the resident. I agree with the resident regarding the assessment and plan of care. Coding Rationale New or est? Established Patient Highest problem complexity: 1 acute or chronic illness or injury that poses a threat to life or bodily function Data review: Ordering of test(s): 3 or more unique test(s) ordered Highest level of risk: High Suggested code: 76292 EM FUSER TENDER documented in this encounter Miscellaneous Notes * Addendum Note - Jamin Cabral MD - 04/07/2022 10:07 AM CSTAddended by: JAMIN CABRAL on: 04/07/2022 10:07 AM Modules accepted: Orders EM FUSER TENDER documented in this encounter Plan of Treatment Upcoming Encounters Date Type Department Care Team (Late st Contact Info) Description 04/04/2024 8:30 AM EMBLEM FUSER TENDER Office Visit [facility] Dermat[facility] [address] [place] [address], [place] [phone] Marlys Zaragoza MD [address] [place] [address] [address] [place] [phone] 09/03/2024 9:00 AM CDT Office Visit [facility] [address] [place] [phone] Melissa Crook, [facility] HE[facility] COACH [address] [place] [phone] documented as of this encounter Results * MRI BRAIN WWO CONTRAST (05/13/2022 2:38 PM EMBLEM FUSER TENDER) Anatomical Region Laterality Modality Head Magnetic Resonan ce 05/15/2022 10:5 3 PM EMBLEM FUSER TENDER Impressions 05/15/2022 11:23 PM EMBLEM FUSER TENDER IMPRESSION: 1.Multiple intracranial white matter lesions compatible with multiple sclerosis. No new T2 lesions and no new enhancing lesions to suggest active demyelination. Moderate parenchymal volume loss, advanced for the patient's stated age. ?? > Interpreting Provider: Damon Townsend MD on 05/15/2022 11:23 PM Narrative 05/15/2022 11:23 PM EMBLEM FUSER TENDER PROCEDURE: ??MRI BRAIN WWO CONTRAST, DATE/TIME OF EXAM: ??05/13/2022 2:39 PM, LOCATION ??[facility] INDICATION: G35: MS (multiple sclerosis) ([facility]/HCC) ADDITIONAL CLINICAL INFORMATION: Ordering Provider Reason For [...] CONTRAST, DATE/TIME OF EXAM: 05/13/2022 2:39PM, LOCATION [facility] INDICATION: G35: MS (multiple sclerosis) ([facility]/HCC) ADDITIONAL CLINICAL INFORMATION: Ordering Provider Reason For Exam: Multiple sclerosis. Technologist Note: Does the patient have a defibrillator, pacemaker, aneurysm clips or implanted mechanical devices?->No Does the patienthave metal implants or stents?->No. Additional: None. EXAMINATION: Magnetic resonance imaging (MRI) of the brain without andwith contrast CONTRAST: GADOBUTROL 1 MMOL/ML IV SSM SO:7 mL TECHNIQUE: [...] Damon Townsend MD on 05/15/2022 11:23 PM Jamin Cabral MD MR ORDERABLES documented in this encounter Visit Diagnoses Diagnosis MS (multiple sclerosis) (HCC)- Primary Multiple sclerosis Seizures (HCC) Other convulsions High risk medications (not anticoagulants) long-term use Encounter for long-term (current) use of other medications Neurogenic bladder Neurogenic bladder, NOS Therapeutic drug monitoring Encounter for therapeutic drug monitoring MS (multiple sclerosis) (HCC) Multiple sclerosis documented in this encounter Care Teams Sensor Operator Relationship Specialty Start Date End Date Lauren Saba, LAWYER [employer] HE[facility] COACH [address] [place] [phone] PCP - General 01/14/18 05/10/23 documented as of this encounter
--- OUTSIDE RECORDS SUMMARY | 2024-03-22 16:37 | XMS_ITS | Encounter Summary ---
Author Organization [facility] Health Address [address] [facility] [place] [address] Care Team Providers Care Gas Distribution Plant Operator Name Role Phone Lauren Saba Jose Eduardo KNOX-SOCIOLOGY PROFESSOR Primary Care Provider Reason for Visit * Reason Onset Date Comments Order 09/28/2021 Encounter Details Date Type Department Care Team (Late st Contact Info) Description 09/28/2021 Telephone [facility] [address] [place] [address] Markus Cabral MD [address] [place] [phone] Order Social History Tobacco Use Types Packs/Day [...] Telephone Encounter - Dilma Gruber RN - 09/28/2021 4:26 PM CDT PT orders reviewed and signed by Dr. Nieto and faxed back to [facility] at . documented in this encounter Plan of Treatment Upcoming Encounters Date Type Department Care Team (Late st Contact Info) Description 04/04/2024 8:30 AM MANUFACTURING TEST TECHNICIAN Office Visit [facility] Derm[facility]ology [address] [place] [address], [place] [phone] Marlys Zaragoza MD [address] [place] [address] 3 [place] [phone] 09/03/2024 9:00 AM CDT Office Visit [facility] [address] [place] [address], [place] [address] Melissa Crook, LISETTE-SOCIOLOGY PROFESSOR [address] [place] [address] documented as of this encounter Visit Diagnoses Not on filedocumented in this encounter Care Teams Gas Distribution Plant Operator Relationship Specialty Start Date End Date Lauren Saba APRN-SOCIOLOGY PROFESSOR [address] [place] [phone] PCP - General 01/14/18 05/10/23 documented as of this encounter
--- OUTSIDE RECORDS SUMMARY | 2024-03-22 16:37 | XMS_ITS | Encounter Summary ---
Author Organization [facility] Health Address [address] [facility] [place] [address] Care Team Providers Care Floor Worker Name Role Phone Lauren Saba Jose Eduardo KNOX-TRAIN INSPECTOR Primary Care Provider Encounter Details Date Type Department Care Team (Latest Contact Info) Description 06/29/2021 1:51 PM CDT - 06/29/2021 11:59 PM CDT Hospital Encounter [facility] DRAW [facility] [address] [place] [phone] Discharge Disposition: Home or Self Care [...] Behavioral Disturbances in Dementia 1 Each 5 05/25/2021 07/21/2021 ARIPiprazole (ABILIFY) 10 MG tablet Take 1 [...] tablet by mouth at bedtime 30 tablet 06/28/2021 07/21/2021 docusate sodium (COLACE) 100 MG capsule Take 1 (one) capsule by mouth every 12 hours 06/21/2021 12/12/2022 escitalopram (LEXAPRO) 20 MG tablet Take 1 (one) tablet by mouth once daily 30 tablet 2 05/27/2021 07/21/2021 fluticasone propionate (FLONASE) 50 MCG/ACT nasal spray [place] 2 (two) sprays into each nostril once daily 1 Each 05/25/2021 12/12/2022 folic acid (FOLVITE) 1 MG tablet Take 1 (one) tablet by mouth once daily 30 tablet 06/24/2021 02/02/2022 lacosamide (VIMPAT) 200 MG tabletIndications:Sei zures (HCC) Take 1 (one) tablet by mouth 2 times daily 180 tablet 3 06/29/2021 01/23/2022 multivitamin daily tablet Take 1 (one) tablet by mouth once daily 30 tablet 05/26/2021 10/06/2022 SYMBICORT 160-4.5 MCG/ACT inhaler Inhale 2 (two) [...] st Contact Info) Description 04/04/2024 8:30 AM ORTHOPEDIC PHYSICIAN ASSISTANT Office Visit [facility] - Dermatology [address] [place] [address], [facility] [place] [phone] Marlys Zaragoza MD [address] [place] [address] 3 [place] [phone] 09/03/2024 9:00 AM CDT Office Visit [facility] - Neurology [address] [facility], [place] [address] Melissa Crook, LISETTE-TRAIN INSPECTOR [address] [place] [phone] documented as of this encounter Procedures Procedure Name Priority Date/Time Associated Diagnosis Comments CBC W AUTO DIFFERENTIAL Routine 06/29/2021 2:10 PM CDT High risk medications (not anticoagulants) long-term use COMPREHENSIVE METABOLIC PANEL Routine 06/29/2021 2:10 PM CDT High risk medications (not anticoagulants) long-term use IGM BLOOD Routine 06/29/2021 2:10 PM CDT High risk medications (not anticoagulants) long-term use IGG BLOOD Routine 06/29/2021 2:10 PM CDT High risk medications (not anticoagulants) long-term use IGA BLOOD Routine 06/29/2021 2:10 PM CDT High risk medications (not anticoagulants) long-term use documented in this encounter Results * IGM BLOOD (06/29/2021 2:10 PM CDT) Pathologist [facility] IgM 70 37 - 286 mg/dL 06/29/2021 2:50 PM CDT [facility] Blood BLOOD SPECIMEN / Unknown Lab Venipuncture / Unknown 06/29/2021 2:10 PM CDT 06/29/2021 2:28 PM CDT Markus Cabral MD LAB - CHEMISTRY ORDERABLES [facility] [address] [place] [address], [facility] [phone] * (ABNORMAL) IGG BLOOD (06/29/2021 2:10 PM CDT) Pathologist [facility] IgG 753(L) 767 - 1,590 mg/dL 06/29/2021 2:50 PM CDT [facility] Blood BLOOD SPECIMEN / Unknown Lab Venipuncture / Unknown 06/29/2021 2:10 PM CDT 06/29/2021 2:28 PM CDT Markus Cabral MD LAB - CHEMISTRY ORDERABLES [address] [address], [facility] [phone] * IGA BLOOD (06/29/2021 2:10 PM CDT) IgA 81 61 - 356 mg/dL 06/29/2021 2:50 PM CDT [facility] Blood BLOOD SPECIMEN / Unknown Lab Venipuncture / Unknown 06/29/2021 2:10 PM CDT 06/29/2021 2:28 PM CDT Markus Cabral MD LAB - CHEMISTRY ORDERABLES [address] [address], [facility] [phone] * (ABNORMAL) COMPREHENSIVE METABOLIC PANEL (06/29/2021 2:10 PM CDT) BUN 20 7 - 26 mg/dL 06/29/2021 2:58 PM CDT [facility] Creatinine 0.66 0.56 - 0.96 mg/dL 06/29/2021 2:58 PM CDT [facility] Sodium 141 136 - 145 mmol/L 06/29/2021 2:58 PM CDT [facility] Potassium 4.1 3.5 - 4.5 mmol/L 06/29/2021 2:58 PM CDT [facility] Chloride 107 98 - 107 mmol/L 06/29/2021 2:58 PM CDT [facility] CO2 24 22 - 29 mmol/L 06/29/2021 2:58 PM CDT [facility] Glucose 79 70 - 115 mg/dL 06/29/2021 2:58 PM [facility] Calcium 9.1 8.4 - 10.2 mg/dL 06/29/2021 2:58 PM [facility] Protein Total 6.7 6.0 - 8.3 g/dL 06/29/2021 2:58 PM [facility] Albumin 3.8 3.4 - 5.0 g/dL 06/29/2021 2:58 PM [facility] Bilirubin Total 0.2 0.2 - 1.2 mg/dL 06/29/2021 2:58 PM [facility] Alkaline Phosphatase 88 40 - 150 U/L 06/29/2021 2:58 PM [facility] ALT 11 5 - 55 U/L 06/29/2021 2:58 PM [facility] AST 11 5 - 34 U/L 06/29/2021 2:58 PM [facility] Anion Gap 14 8 - 18 06/29/2021 2:58 PM [facility] BUN/Creatinine Ratio 30(H) 7 - 23 06/29/2021 2:58 PM [facility] Osmolality Calculated 294 270 - 300 mOsm/kg 06/29/2021 2:58 PM [facility] Albumin/Globulin Ratio 1.3 1.1 - 2.3 06/29/2021 2:58 PM [facility] eGFR by CKD-EPI >90 >=90 mL/min/1.7 3 m2 06/29/2021 2:58 PM [facility] Blood BLOOD SPECIMEN / Unknown Lab Venipuncture / Unknown 06/29/2021 2:10 PM CDT 06/29/2021 2:30 PM CDT Markus Cabral MD LAB - CHEMISTRY ORDERABLES [facility] [address] [place] [address], [facility] [phone] * (ABNORMAL) CBC WITH DIFFERENTIAL (06/29/2021 2:10 PM CDT) WBC 17.8(H) 3.5 - 10.5 10? 3 /uL 06/29/2021 2:39 PM [facility] RBC 4.79 3.80 - 5.20 10? 6 /uL 06/29/2021 2:39 PM [facility] Hemoglobin 11.7(L) 12.0 - 15.6 g/dL 06/29/2021 2:39 PM [facility] Hematocrit 37.6 35.0 - 45.0 % 06/29/2021 2:39 PM [facility] MCV 78.5(L) 80.7 - 98.3 fL 06/29/2021 2:39 PM [facility] MCH 24.4(L) 26.7 - 34.0 pg 06/29/2021 2:39 PM [facility] MCHC 31.1 30.8 - 35.9 g/dL 06/29/2021 2:39 PM [facility] Platelet Count 469(H) 150 - 400 10? 3 /uL 06/29/2021 2:39 PM [facility] RDW-SD 47.2 36.0 - 50.0 fL 06/29/2021 2:39 PM [facility] RDW-CV 16.7(H) 11.2 - 14.8 % 06/29/2021 2:39 PM [facility] MPV 8.7(L) 9.4 - 12.9 fL 06/29/2021 2:39 PM [facility] nRBC Absolute 0.00 0 10? 3 /uL 06/29/2021 2:39 PM [facility] nRBC Auto 0.0 0 /100 WBC 06/29/2021 2:39 PM [facility] Neutrophils % 72.4(H) 35.0 - 70.0 % 06/29/2021 2:39 PM [facility] Lymphocytes % 11.5(L) 20.0 - 43.0 % 06/29/2021 2:39 PM [facility] Monocytes % 7.4 5.0 - 13.0 % 06/29/2021 2:39 PM [facility] Eosinophils % 7.5(H) 0.0 - 6.0 % 06/29/2021 2:39 PM CDT [facility] Basophil % 0.7 0.0 - 2.0 % 06/29/2021 2:39 PM CDT [facility] Neutrophils Absolute 12.8(H) 1.6 - 7.0 10? 3 /uL 06/29/2021 2:39 PM CDT [facility] Lymphocyte Absolute 2.1 1.1 - 3.9 10? 3 /uL 06/29/2021 2:39 PM CDT [facility] Monocytes Absolute 1.32(H) 0.26 - 1.07 10? 3 /uL 06/29/2021 2:39 PM CDT [facility] Eosinophils Absolute 1.34(H) 0.00 - 0.47 10? 3 /uL 06/29/2021 2:39 PM CDT [facility] Basophils Absolute 0.13(H) 0.00 - 0.08 10? 3 /uL 06/29/2021 2:39 PM CDT [facility] Immature Granulocytes % 0.5 0.0 - 1.0 % 06/29/2021 2:39 PM CDT [facility] Immature Granulocytes Absolute 0.09 06/29/2021 2:39 PM CDT [facility] Blood BLOOD SPECIMEN / Unknown Lab Venipuncture / Unknown 06/29/2021 2:10 PM CDT 06/29/2021 2:30 PM CDT Markus Cabral MD LAB - HEMATOLOGY ORDERABLES Performing Organization Address [facility]/State/[facility] Co de Phone Number [facility] [address] [place] [address] [phone] documented in this encounter Visit Diagnoses Diagnosis High risk medications (not anticoagulants) long-term use Encounter for long-term (current) use of other medications documented in this encounter Care Teams Floor Worker Relationship Specialty Start Date End Date Lauren Saba APRN-TRAIN INSPECTOR [address] [place] [phone] PCP - General 01/14/18 05/10/23 documented as of this encounter
--- OUTSIDE RECORDS SUMMARY | 2024-03-22 16:38 | XMS_ITS | Encounter Summary ---
Author Organization [facility] Health Address [address] [facility] [place] [address] Care Team Providers Care Meal Miller Name Role Phone Lauren Saba Jose Eduardo KNOX-JOURNEYMAN CARPENTER Primary Care Provider Encounter Details Date Type Department Care Team (Late Contact Info) Description 11/11/2020 Orders Only [facility] [address] [place] [address] Deja Godinez, PharmD [address] [place] [address] Social History Tobacco Use Types Packs/Day Years [...] Exposure Response Date Recorded In the last month, have you been in contact with someone who was confirmed or suspected to have Coronavirus / COVID-19? No / Unsure 11/08/2020 6:02 AM CDT documented as of this encounter Plan of Treatment Upcoming Encounters Date Type Department Care Team (Late Contact Info) Description 04/04/2024 8:30 AM MANAGER STERILE Office Visit [facility] [address] [facility], [place] [phone] Marlys Zaragoza MD [facility] 3L [place] [phone] 09/03/2024 9:00 AM CDT Office Visit [facility] - Neurology [address] [place] [address], [place] [phone] Melissa Crook APRN-JOURNEYMAN CARPENTER [address] [place] [phone] documented as of this encounter Visit Diagnoses Not on filedocumented in this encounter Care Teams Meal Miller Relationship Specialty Start Date End Date Lauren Saba APRN-JOURNEYMAN CARPENTER [address] [place] [address] PCP - General 01/14/18 05/10/23 documented as of this encounter
--- OUTSIDE RECORDS SUMMARY | 2024-03-22 16:38 | XMS_ITS | Encounter Summary ---
Author Organization [facility] Address [address] [place] [address] Care Team Providers Care Freelance Digital Project Manager Name Role Phone Lauren Saba LISETTE-STRATEGY ASSOCIATE Primary Care Provider Encounter Details Date Type Department Care Team (Latest Contact Info) Description 08/31/2020 Travel Social History Tobacco Use Types Packs/Day [...] have Coronavirus / COVID-19? No / Unsure 08/31/2020 10:54 AM CDT documented as of this encounter Plan of Treatment Upcoming Encounters Date Type Department Care Team (Late st Contact Info) Description 04/04/2024 8:30 AM ROUSTABOUT HEAD Office Visit [facility] - Dermatology [address] [place] [address], [place] [phone] Marlys Zaragoza MD [address] [place] [address] [address] [place] [address] 09/03/2024 9:00 AM CDT Office Visit [facility] - Neurology [facility] [facility] [place] [address] Melissa Crook, DIGITAL MEDIA INTERN-STRATEGY ASSOCIATE [address] [place] [id number] documented as of this encounter Visit Diagnoses Not on filedocumented in this encounter Care Teams Freelance Digital Project Manager Relationship Specialty Start Date End Date Lauren Saba, DIGITAL MEDIA INTERN-STRATEGY ASSOCIATE [address] [place] [address] PCP - General 01/14/18 05/10/23 documented as of this encounter
--- OUTSIDE RECORDS SUMMARY | 2024-03-22 16:38 | XMS_ITS | Encounter Summary ---
Author Organization [facility] Health Address [address] [place] [address] Care Team Providers Care Hydro Technician Name Role Phone Lauren Saba Jose Eduardo [employer] MANUFACTURING TECHNICIAN-CLOTH CUTTING MACHINE OPERATOR Primary Care Provider Reason for Visit * Reason Comments Behavioral Health Concerns pt mom has le gal guardianship and has filled out affidavit. Per mom pt has been off her abilify last shot was 01/12/2021. pt has become more irritable and paranoid threatening to long term staff. Pt denies SI/HI or hallucinations Encounter Details Date Type Department Care Team (Late st Contact Info) Description 04/08/2021 3:29 PM CREDIT INTERVIEWER - 04/12/2021 4:28 PM [facility] Emergency [facility] [address] EMERGENCY DEPARTMENT [facility] [place] [address] Aster Rebolledo MD [facility] [place] [address] Richard Gayle MD [address] [place] [address] Ignacio Heller MD [facility] [place] [address] Kisha Gregorio MD [address] [facility] [place] [address] Chau Teague MD [address] [facility] [place] [address] [place] [id number] [place] [address] Crystal Grant MD [address] [place] [address] Bizarre behavior; COVID-19; Polysubstance abuse (HCC); Acute cystitis without hematuria Discharge Disposition: Home or Self Care Social [...] Reading Time Taken Comments Blood Pressure 116/72 04/12/2021 11:47 AM CREDIT INTERVIEWER Pulse 101 04/12/2021 11:47 AM CREDIT INTERVIEWER Temperature 36.7 ??C (98 ??F) 04/12/2021 11:47 AM CREDIT INTERVIEWER Respiratory Rate 16 04/12/2021 11:47 AM CREDIT INTERVIEWER Oxygen Saturation 100% 04/12/2021 11:47 AM CREDIT INTERVIEWER Inhaled Oxygen Concentration 100% 04/12/2021 1 1:47 AM CREDIT INTERVIEWER Weight 62.6 kg (138 lb) 04/08/2021 3:07 PM CREDIT INTERVIEWER Height 165.1 cm (5' 5 ) 04/08/2021 3:07 PM CREDIT INTERVIEWER Body Mass Index 22.96 04/08/2021 3:07 PM CREDIT INTERVIEWER documented in this encounter Discharge Instructions * Discharge Instructions* Gabriel Gregorio MD - 04/12/2021 3:50 PM CREDIT INTERVIEWER You were seen by our psychiatrist. You are clear to go home. Please return as needed. Please see your psychiatrist on an outpatient basis and follow up. You do have covid. Please isolate for 10 days. Return as needed for shortness of breath, passing out, chest pain. IT INTERVIEWER * Attachments The following attachments cannot be sent through Care Everywhere. * COVID-19 (Coronavirus Disease 2019) (AfterCare(R) Instructions(ER/ED)) (Singaporean) documented in this encounter Medications at Time of Discharge Medication Sig Dispensed Refills Start Date End Date ABILIFY MAINTENA 300 MG injectionIndications:U nspecified Psychosis. Behavioral Disturbances in Dementia Inject 300 (three hundred) mg into muscle every 28 days Reasons: Unspecified Psychosis. Behavioral Disturbances in Dementia 1 Each 04/11/2021 04/15/2021 ARIPiprazole (ABILIFY) 10 MG tablet Take 1 (one) tablet by mouth once daily for 12 days 12 tablet 04/12/2021 12/12/2022 lacosamide (VIMPAT) 200 MG tablet Take 1 tablet by mouth 03/10/2021 05/10/2021 documented as of this encounter Progress Notes * Fredrick Owen CPhT - 04/12/2021 10:08 AM CST MEDICATION TO BEDSIDE DELIVERY: COMPLETE Medication to Bedside delivery was completed for Meredith Frost. ??? A total of 1 prescriptions were delivered to the patient for discharge. ??? Medications were given to NURSE (RAFIA) ??? This delivery included a controlled substance: NO ??? This delivery included medication that should be stored in the fridge: NO Thank you for allowing the outpatient pharmacy to participate in the care of Meredith Frost. If you have any questions, please contact the outpatient pharmacy at [phone]. Fredrick Owen [facility] [place] [facility] at [address] [place], [place] [address] Hours of Operation Sunday - [place]: 8:00am to 6:00pm Sunday: 9:00am to 1:00pm [facility]: [facility] *Ensure the patient and clinic's nearby ZIP codes box is unchecked* IT INTERVIEWER * Alejandro Simental MD - 04/12/2021 6:33 AM CST [facility] Inpatient Psychiatry Progress Note Meredith Frost Age: [age] year old Date of : 1980 Date of Note: 04/12/2021 Hospital day: Hospital Day: 5 Reason for Admission: Paranoia and aggressive behavior at long term ID:Meredith Frost is a 40 year old female (with mother as Guardian since 2016) with a past medical history of Multiple Sclerosis (dx in 2006), migraines, epilepsy (dx in ), Asthma, and a past psychiatric history of MNCD, Unspecified Psychosis, Alcohol Use disorder and polysubstance abuse who presented from a rehab facility for reckless behavior, reportedly intimidating staff members and has beennon adherent to long acting injectable since December. Subjective: Per nursing: no acute events, adherent to medications. Vitals stable. No PRNs. Scheduled Medications: ??? ARIPiprazole 10 mg Oral QDAY ??? baclofen 10 mg Oral BID ??? budesonide-formoterol 2 puff Inhalation BID ??? escitalopram 20 mg Oral QDAY ??? lacosamide 200 mg Oral BID ??? sulfamethoxazole-trimethoprim 1 tablet Oral q12h ??? zonisamide 500 mg Oral AT BEDTIME PRN Medications: acetaminophen, 500 mg, q4h PRN albuterol HFA, 2 puff, q4h PRN ibuprofen, 600 mg, q6h PRN On interview Ms. Frost is laying in bed. Feeling better. Denies feeling depressed, anxious, or having auditory hallucinations or paranoia. Denies suicidal thoughts and homicidal thoughts. Received her injection and had minimal arm pain afterwards which she was happy about. Reiterated the importance of medication compliance outside the hospital. Discussed plans for discharge today. Spoke with special education case manager Marybeth. She is unable to picking machine operator the patient because she has COVID and requested she get medical transport. Spoke with Meredith's mother Serg. She is agreeable to discharge but will need help with transportation. She said Marybeth contacted her last night with additional concerns that Meredith didn't get the proper evaluation in the hospital that she needed. Explained the purpose of the hospitalization and that inpatient admission is no longer indicated and further care would be best served in the outpatient setting. Meredith has all her medications at home other than her Abilify- told her we will send her home with her Abilify pills. Mental Status Exam: Appearance: female, appears stated age, long brown hair tied in a pony tail, white nail turkish and wedding ring on her 4th digit of her right hand. Laying in bed. Eye Contact: good Attitude toward examiner: cooperative, calm, pleasant Speech: soft volume, otherwise unremarkable Language: normal Psychomotor: no agitation and no retardation Gait: unable to assess, patient sitting Mood: better Affect: euthymic, mood congruent Thought Process: linear and goal directed, associations intact Thought Content: denies suicidal ideation, denies homicidal ideation and no overt delusions Perception: denies hallucinations, was not reacting to internal stimuli Fund of Knowledge: Average Insight: fair Judgment: fair Cognitive Functions: Orientation: person, place and time Attention/Concentration: Good Memory: recent and remote memory intact Gait and Station: Unable to assess gait and station (in bed) MSK: Normal Muscle Tone Labs/Vitals Vitals: Patient Vitals for the past 24 hrs: BP Temp Temp src Pulse Resp SpO2 04/11/21 0830 111/68 97.6 ??F (36.4 ??C) Temporal 97 12 97 % Assessment: Meredith Frost is a 40 year old with a psychiatric history including Neurocognitive Disorder and Unspecified Schizophrenia which began at age 33. She presented for concerns of psychotic decompensation in the context of medication noncompliance. On initial interview, she had intense eye contact, rapid but soft speech and voiced paranoia. Today she is euthymic, has a linear thought process, and did not display signs of ongoing psychosis or depression. She has previously been stable on Maintena and was given her injection yesterday. Continue PO Abilify as a 2-week bridge. Given improvement and lackof safety concerns, inpatient admission is no longer indicated and she will be discharged back home. Care was coordinated with both her mother and her real estate paralegal. Diagnosis: Unspecified Schizophrenia Spectrum and Other Psychotic Disorder MNCD, Unspecified Plan: Psychiatric problems: 1.Unspecified Schizophrenia Spectrum and Other Psychotic Disorder -Abilify Maintena 300 mg IM received on 04/11/21. -Increase Abilify to 10 mg daily and continue for 2 weeks ?? Medical problems: 1. Multiple Sclerosis a. Continue home Baclofen 10mg 1 tab BID for MS 2. Asthma a. Continue home Symbicort 2 puffs bid aer 160-4.5 (120-4.5) b. Continue Albuterol prn 3. Ankle Pain a. Hold Hydrocodone for pain 5-325 2 Q6hrs, last taken at 1:45pm today b. Start ibuprofen 600mg Q6hrs for pain 4. Anxiety a. Started on home Alprazolam (Xanax) 0.5mg tab I tablet PO QHS (started 03/11/2021) b. Given at long term from doctor for anxiety c. For anxiety- Atarax 25mg Q6hrs prn 5. Seizure disorder a. Continue home Vimpat (lacosamide) 200mg 1 tablet PO BID (last given today at 0900) b. Continue home Zonisamide 100mg (give 500mg by mouth at bedtime 6. Overactive Bladder a. Not presently a concern? b. Hold home Oxybutynin 5mg PO bid unless bladder complaints 7. Depression a. Continue home escitalopram (Lexapro) 20mg daily Dispo: discharge home this afternoon Patient was discussed with attending physician Dr. Bolaños who agrees with the above assessment and plan. Alejandro Simental M.D. PGY-4 Department of Psychiatry and Behavioral Sciences [facility] Physician Re-Certification I certify that the inpatient psychiatric facility services furnished since the previous certification were, and continue to be, medically necessary for treatment which could reasonably be expected toimprove the patient's condition/symptomology. The patient needs a continued inpatient level of care based on the following clinical conditions: unsafe behavior and mood symptoms I certify that the patient continues to need, on a daily basis, active treatment furnished directlyby or requiring the supervision of inpatient psychiatric facility personnel. IT INTERVIEWER Associated attestation - Dilma Bolaños MD - 04/12/2021 6:06 PM CREDIT INTERVIEWER I have seen and examined the patient. I agree with the findings and plan of care as documented by Dr. Simental, except where documented specifically below. Date of Service: 04/12/21 Patient is a 40 y/o female with guardian and extensive PMHx who presented from rehab facility (broken foot) for paranoia and agitation with facility staff in the context of nonadherence with VEGA. Baileehagilbert been in the ED since 04/08/21 and has been calm and cooperative with staff. No acute events overnight. She has been compliant with medication and received Abilify Maintena 300mg IM yesterday with no side effects. On evaluation she is sitting calmly in her room. She is agreeable to talking. Makes good eye contact, is calm, cooperative and pleasant. No psychomotor agitation or retardation. Speech is unremarkable. Mood is ???fine?? . Affect is euthymic. Thoughts are linear, organized and goal directed. Denies any SI/HI/AVH. Does not appear to be RTIS. No overt delusional statements made. She states that the injection did not hurt much yesterday and reports being fine to continue to take it. She recalls that she needs to take a bridge of abilify po now and has 12 days left for the bridge. She engages in conversation about discharge planning. Notes that her special education case manager will be home to help her get set up. States that she does not think their relationship is very good, but that is partly because she doesn't think she is very nice. She does not make overt delusional statements regarding mother, special education case manager or rehab facility. A/P: Patient presented with paranoia and agitation toward staff at rehab facility. Since arrival tot ED on 04/08/21 she has been calm, cooperative and compliant with care from ED and psych staff. She has been compliant with medications has not demonstrated overt psychotic symptoms, paranoia or agitation and has not required PRN medications. She was agreeable to taking Abilify Maintena and tolerated it without issue. Neither patient nor guardian plan for her to return to rehab facility. Discussed plan with guardian for her to return home with assistance from special education case manager and follow up with outpatient provider as she has been calm, cooperative, engaged and not demonstrating dangerous behavior s, paranoia or perceptual disturbances over last 3 days, mother/guardian in agreement with plan. Will also coordinate with outpatient provider, Dr. Glez. Dilma Bolaños MD * Palmer Davila CPhT - 04/11/2021 2:42 PM CST MEDICATION TO BEDSIDE DELIVERY: COMPLETE Medication to Bedside delivery was completed for Meredith Frost. ??? A total of 1 prescriptions were delivered to the patient for discharge. ??? Medications were given to NURSE (TANIA) ??? This delivery included a controlled substance: NO ??? This delivery included medication that should be stored in the fridge: NO Thank you for allowing the outpatient pharmacy to participate in the care of Meredith Frost. If you have any questions, please contact the outpatient pharmacy at [phone]. Palmer Davila CPhT [facility] [place] [facility] at [address] [place], [place] [address] Hours of Operation Sunday - Sunday: 8:00am to 6:00pm Sunday: 9:00am to 1:00pm Epic: [facility] *Ensure the patient and clinic's nearby ZIP codes box is unchecked* IT INTERVIEWER * Sofia Sargent LCSW - 04/11/2021 8:32 AM CST SW left message for pt's mother and legal guardian to inquire about permission to transfer to [facility]. SW was able to leave a message for a return call Sofia Sargent LCSW IT INTERVIEWER * Alejandro Simental MD - 04/11/2021 6:39 AM CST [facility] Inpatient Psychiatry Progress Note Meredith Frost Age: [age] year old Date of : 1980 Date of Note: 04/11/2021 Hospital day: Hospital Day: 4 Reason for Admission: Paranoia and aggressive behavior at long term ID:Meredith Frost is a 40 year old female (with mother as Guardian since 2016) with a past medical history of Multiple Sclerosis (dx in 2006), migraines, epilepsy (dx in '), Asthma, and a past psychiatric history of MNCD, Unspecified Psychosis, Alcohol Use disorder and polysubstance abuse who presented from a rehab facility for reckless behavior, reportedly intimidating staff members and has beennon adherent to long acting injectable since December. Subjective: Per nursing: no acute events, adherent to medications. Vitals stable. No PRNs. Prns: tylenol, ibuprofen (x1) Scheduled Medications: ??? ARIPiprazole 5 mg Oral QDAY ??? ARIPiprazole ER 300 mg Intramuscular q30 days ??? baclofen 10 mg Oral BID ??? budesonide-formoterol 2 puff Inhalation BID ??? lacosamide 200 mg Oral BID ??? sulfamethoxazole-trimethoprim 1 tablet Oral q12h ??? zonisamide 500 mg Oral AT BEDTIME PRN Medications: acetaminophen, 500 mg, q4h PRN albuterol HFA, 2 puff, q4h PRN ibuprofen, 600 mg, q6h PRN On interview patient is in wheelchair. She reports feeling fine and denies having any psychiatriccomplaints. Denies suicidal thoughts and homicidal thoughts, psychosis, or depression. She is unsure why she came to the hospital as everything as fine at the rehab facility. Does not know why her mother would be concerned about her. Does not want to take Maintena because it hurts her arm to receive injections but is willing to take PO Abilify. Becomes tearful when told she will be receiving her injection. She has her own apartment in [place]. Abilify has been helpful for keeping her calm and makingher less paranoid. Has a social media designer (Marybeth) with [facility] who helps with her medications weekly. May be losing her case management services if she doesn't get stabilized on her medications. Does not think she needs to take antipsychotics and makes excuses about not needing them. She has been refusing her Abilify at the rehab facility. Wants her to get her Maintena injection regardless of what Meredith says. Spoke with real estate paralegal Marybeth who suspects she hasn't been taking any of her medications regularly including her seizure meds. Does not think she will take PO meds at home. Meredith has been paranoid towards Marybeth and has called the police on her. Has also been agitated with staff at the rehab facility. She has been drinking at times. She will be able to pick her up tomorrow afternoon. Mental Status Exam: Appearance: female, appears stated age, long brown hair tied in a pony tail, white nail turkish and wedding ring on her 4th digit of her right hand. Sitting in wheel chair with ankle wrappedin cast/bandage Eye Contact: good Attitude toward examiner: cooperative, calm Speech: increased rate, soft volume Language: normal Psychomotor: no agitation and no retardation Gait: unable to assess, patient sitting Mood: Good Affect: euthymic/odd, tearful at times Thought Process: linear and goal directed, associations intact Thought Content: denies suicidal ideation, denies homicidal ideation and no overt delusions Perception: denies hallucinations, was not reacting to internal stimuli Fund of Knowledge: Average Insight: limited Judgment: limited Cognitive Functions: Orientation: person, place and time Attention/Concentration: Good Memory: recent and remote memory intact Gait and Station: Unable to assess gait and station (in wheel chair) MSK: Normal Muscle Tone Labs/Vitals Vitals: Patient Vitals for the past 24 hrs: BP Temp Temp src Pulse Resp SpO2 04/10/21 2000 123/85 97.6 ??F (36.4 ??C) Temporal 88 18 100 % 04/10/21 0800 114/75 98.2 ??F (36.8 ??C) Temporal 86 18 99 % Assessment: Meredith Frost is a 40 year old with a psychiatric history including Neurocognitive Disorder and Unspecified Schizophrenia which began at age 33. She presented for concerns of psychotic decompensation in the context of medication noncompliance. On initial interview, she had intense eye contact, rapid but soft speech and voiced paranoia. Today she is euthymic, has a linear thought process, and did not display signs of ongoing psychosis including paranoia. She has previously been stable on Maintena and will plan to reload. Guardian consented to administering Abilify Maintena today and discharging to the care of her social media designer Marybeth tentatively tomorrow. Continue PO Abilify as a 2-week bridge. Diagnosis: Unspecified Schizophrenia Spectrum and Other Psychotic Disorder MNCD, Unspecified Plan: Psychiatric problems: 1.Unspecified Schizophrenia Spectrum and Other Psychotic Disorder -Administer Abilify Maintena 300 mg IM today -Increase Abilify to 10 mg daily and continue for 2 weeks ?? Medical problems: 1. Multiple Sclerosis a. Continue home Baclofen 10mg 1 tab BID for MS 2. Asthma a. Continue home Symbicort 2 puffs bid aer 160-4.5 (120-4.5) b. Continue Albuterol prn 3. Ankle Pain a. Hold Hydrocodone for pain 5-325 2 Q6hrs, last taken at 1:45pm today b. Start ibuprofen 600mg Q6hrs for pain 4. Anxiety a. Started on home Alprazolam (Xanax) 0.5mg tab I tablet PO QHS (started 03/11/2021) b. Given at long term from doctor for anxiety c. For anxiety- Atarax 25mg Q6hrs prn 5. Seizure disorder a. Continue home Vimpat (lacosamide) 200mg 1 tablet PO BID (last given today at 0900) b. Continue home Zonisamide 100mg (give 500mg by mouth at bedtime 6. Overactive Bladder a. Not presently a concern? b. Hold home Oxybutynin 5mg PO bid unless bladder complaints 7. Depression a. Continue home escitalopram (Lexapro) 20mg daily Dispo: Admit to [facility] voluntarily by guardian. Tentative plan for discharge tomorrow. Patient was discussed with attending physician Dr. Bolaños who agrees with the above assessment and plan. Alejandro Simental M.D. PGY-4 Department of Psychiatry and Behavioral Sciences [facility] Physician Re-Certification I certify that the inpatient psychiatric facility services furnished since the previous certification were, and continue to be, medically necessary for treatment which could reasonably be expected toimprove the patient's condition/symptomology. The patient needs a continued inpatient level of care based on the following clinical conditions: unsafe behavior and mood symptoms I certify that the patient continues to need, on a daily basis, active treatment furnished directlyby or requiring the supervision of inpatient psychiatric facility personnel. IT INTERVIEWER Associated attestation - Dilma Bolaños MD - 04/12/2021 6:26 PM CREDIT INTERVIEWER I have seen and examined the patient. I agree with the findings and plan of care as documented by Dr. Simental. Date of Service: 04/11/2021 Dilma Bolaños MD * Briseyda Elmore MD - 04/10/2021 7:51 AM CST [facility] Inpatient Psychiatry Progress Note Meredith Frost Age: [age] year old Date of : 1980 Date of Note: 04/10/2021 Hospital day: Hospital Day: 3 Reason for Admission: Paranoia and aggressive behavior at long term ID:Meredith Frost is a 40 year old female (with mother as Guardian since 2016) with a past medical history of Multiple Sclerosis (dx in 2006), migraines, epilepsy (dx in ), Asthma, and a past psychiatric history of MNCD, Unspecified Psychosis, Alcohol Use disorder and polysubstance abuse who presented from a rehab facility for reckless behavior, reportedly intimidating staff members and has beennon adherent to long acting injectable since December. Subjective: Per nursing: no acute events, adherent to medications Prns: tylenol, ibuprofen (x1) Scheduled Medications: ??? ARIPiprazole 5 mg Oral QDAY ??? ARIPiprazole ER 300 mg Intramuscular q30 days ??? baclofen 10 mg Oral BID ??? budesonide-formoterol 2 puff Inhalation BID ??? lacosamide 200 mg Oral BID ??? sulfamethoxazole-trimethoprim 1 tablet Oral q12h ??? zonisamide 500 mg Oral AT BEDTIME PRN Medications: acetaminophen, 500 mg, q4h PRN albuterol HFA, 2 puff, q4h PRN ibuprofen, 600 mg, q6h PRN On interview patient wheeling herself around hallway. States she feels fine and has no concerns. Denies SI/HI/AVH. Has not spoken with her mother as she feels her mother hates her. Continued to ask what did my mom say about me? States she does not want the injectable because it causes her arm pain all month long. Mental Status Exam: Appearance: female, appears stated age, long brown hair tied in a pony tail, white nail turkish and wedding ring on her 4th digit of her right hand. Sitting in wheel chair with ankle wrappedin cast/bandage Eye Contact: intense gaze Attitude toward examiner: cooperative Speech: normal Language: normal Psychomotor: no agitation and no retardation Gait: unable to assess, patient sitting Mood: Good Affect: euthymic/odd Thought Process: linear and goal directed Thought Content: denies suicidal ideation, denies homicidal ideation and some paranoid delusions about nursing facility not being trustworthy and fixated on them stealing her symbicort Perception: denies hallucinations, was not reacting to internal stimuli Fund of Knowledge: Average Insight: limited Judgment: limited Cognitive Functions: Orientation: person, place and time Attention/Concentration: Good Memory: recent and remote memory intact Gait and Station: Unable to assess gait and station (in wheel chair) MSK: Normal Muscle Tone Labs/Vitals Vitals: Patient Vitals for the past 24 hrs: BP Temp Temp src Pulse Resp SpO2 04/10/21 0311 103/63 -- -- 98 18 100 % 04/09/21 1630 105/75 98.8 ??F (37.1 ??C) Temporal 101 16 99 % 04/09/21 0904 123/65 97.6 ??F (36.4 ??C) -- 86 16 100 % Assessment: Meredith Frost is a 40 year old with a psychiatric history including Neurocognitive Disorder and Unspecified Schizophrenia which began at age 33. Substances may be playing a role in her presentation as UDS positive for opiates and cannabinoids and BAL undetected, however Unspecified Schizophrenia and other psychotic disorder remains the most appropriate diagnosis at this time. On initial interview, she has intense eye contact, rapid but soft speech, is cooperative, and voicing paranoia. Collateral was concerning for acute decompensation of her psychosis given she has been non adherent to her VEGA since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 All other components within normal limits URINE DRUG SCREEN IMMUNOASSAY - Abnormal; Notable for the following components: Opiates Urine Positive (*) Cannabinoids Screen Urine Positive (*) All other components within normal limits Narrative: The Urine Toxicology Screening Panel does not screen for Propoxyphene, Meprobamate, Carisoprodol, Trazodone, jbyk-lqf-[id number] medications and/or volatiles (Acetone, Isopropanol, Methanol or Ethylene Glycol). Ethanol, Salicylate, Acetaminophen, Tricyclic Antidepressants and several therapeutic drugsmay be individually assayed in serum or plasma specimen. Toxicology testing by the [facility] is an aid to medical diagnosisand treatment of patients. No documented chain of custody was maintained. Results are intended to be used for clinical purposes only. URINALYSIS REFLEX TO MICROSCOPIC NO CULTURE - Abnormal; Notable for the following components: Clarity UA Cloudy (*) Protein UA 1+ (*) Ketone UA Trace (*) Blood UA 1+ (*) Leukocyte Esterase 3+ (*) RBC UA >100 (*) WBC UA >100 (*) WBC Clumps Moderate (*) Bacteria UA 2+ (*) Squamous Epithelial Cells UA 6-10 (*) All other components within normal limits Narrative: ALCOHOL ETHYL BLOOD - Normal Narrative: Ethanol Interp <10: None Detected. Depression of AUTOMOBILE RADIATOR MECHANIC: >100 mg/dl Potentially Critical: >250 mg/dl Potentially Fatal >400 mg/dl Ethanol in the patient's blood will contribute to the osmolar gap. Ethanol's contribution to the osmolar gap can be estimated by dividing the concentration of ethanol in mg/dL by 4.6. This test is for clinical use only and does not equal a RUDY for legal purposes. HCG BETA BLOOD QUANTITATIVE - Normal No orders to display No results found. ED Course: 6:30 AM: Patient resting comfortably 3:40 PM: Psych recommends discharge. Will do so now. 3:40 PM: I have reviewed her diagnostic findings and she has had an opportunity to ask me any questions she has about care, diagnosis and discharge plan. Patient is comfortable with the discharge plan. She will follow up as directed and will return to the ER if her condition worsens or she developsother urgent concerns. Clinical Impression: 1. Bizarre behavior 2. COVID-19 3. Polysubstance abuse 4. Acute cystitis without hematuria 5. Depression, unspecified depression type 6. Major neurocognitive disorder 7. Psychosis, unspecified psychosis type Disposition: Discharge By signing my name below, Nancy Ahuja, attest that this documentation has been prepared under the direction and in the presence of Dr. Grant. Signed: Ernesto Dominguez. Leigha, Dr. Grant, personally performed the services described in this documentation. All medical record entries made by the scribe were at my direction and in my presence. I have reviewed the chart andagree that the record reflects my personal performance and is accurate and complete. IT INTERVIEWER * Carolyn Dickerson - 04/11/2021 12:09 PM CST Pt received lunch tray IT INTERVIEWER * Carolyn Dickerson - 04/11/2021 8:36 AM CST Pt received breakfast tray IT INTERVIEWER * Aster Rebolledo MD - 04/11/2021 5:59 AM CST ASSUMED CARE NOTE Patient signed out to me by Dr. Teague at 6:00 AM. Briefly, Meredith Frost is a 40 year old female is being evaluated for bizarre behavior. At this time the patient's condition is Stable. Thus far, studies reveal pt is COVID positive. Pending inpatient bed availability. Plan is pt is admitted to Psychiatry 2W, voluntary. Vitals: 04/10/21 0311 04/10/21 0800 04/10/21 2000 04/11/21 0830 BP: 103/63 114/75 123/85 111/68 Pulse: 98 86 88 97 Resp: 18 18 18 12 Temp: 98.2 ??F (36.8 ??C) 97.6 ??F (36.4 ??C) 97.6 ??F (36.4 ??C) SpO2: 100% 99% 100% 97% Weight: Height: ED Course: 6:58 AM - Evaluated the pt who is sleeping at this time. 6:00 PM - Pending inpatient bed availability, GIANNA to Dr. Al at end of shift. Clinical Impression: 1. Bizarre behavior 2. COVID-19 3. Polysubstance abuse 4. Acute cystitis without hematuria 5. Depression, unspecified depression type 6. Major neurocognitive disorder 7. Psychosis, unspecified psychosis type Disposition: Admit to Psychiatry - 2W, voluntary Pending - GIANNA to Dr. Al By signing my name below, I, Haley Scanlon, attest that this documentation has been prepared underthe direction and in the presence of Dr. Rebolledo. Signed: Ernesto Thrasher. I, Dr. Rebolledo, personally performed the services described in this documentation. All medical recordentries made by the scribe were at my direction and in my presence. I have reviewed the chart and agree that the record reflects my personal performance and is accurate and complete. Electronically signed: Dr. Rebolledo Date: 04/11/21 Time: 5:59 PM IT INTERVIEWER * Chau Teague MD - 04/11/2021 12:29 AM CST ASSUMED CARE NOTE Patient signed out to me by Dr. Mcelroy at 10:00 PM. Briefly, Meredith Frost is a 40 year old female is being evaluated for agitation. Patient has a history of paranoid schizophrenia. Patient was seen and evaluated by Psychiatry, who agrees to admit the patient for evaluation. Of note, patient was found to be COVID positive. At this time the patient's condition is Stable per previous team. Thus far, studies reveal WBC of 14.7, probable UTI, UDS positive for cannabinoids and opiates, COVID positive Pending inpatient bed availability Plan is admit to Psychiatry 2 W involuntary Reassessment: 6:00 AM: No acute events during my supervision. Patient has been signed out to Dr. Rebolledo. Pending inpatient bed availability . Clinical Impression: 1. Bizarre behavior 2. COVID-19 3. Polysubstance abuse 4. Acute cystitis without hematuria Disposition: Admit to Psychiatry, GIANNA to Dr. Rebolledo, pending inpatient bed availability By signing my name below, I, Julia Stovall, attest that this documentation has been prepared under the direction and in the presence of Dr. Teague. Signed: Ernesto Troncoso. I, Dr. Teague, personally performed the services described in this documentation. All medical record entries made by the scribe were at my direction and in my presence. I have reviewed the chart and agree that the record reflects my personal performance and is accurate and complete. IT INTERVIEWER * Kandis Choudhary RN - 04/10/2021 11:37 PM CST Pt asleep in room. Respirations equal and unlabored. No acute distress. IT INTERVIEWER * Kandis Choudhary RN - 04/10/2021 8:39 PM CST Pt sitting in room. Respirations equal and unlabored. No acute distress. IT INTERVIEWER * Prachi Pride RN - 04/10/2021 7:23 PM CST Report given to YOVANA Cramer and YOVANA Marquis for continuity of care. All questions answered, all concerns addressed. This RN ends assignment at this time. IT INTERVIEWER * Concha Barron - 04/10/2021 3:56 PM CST When pt told to return to room because she has COVID she stated she does not believe she has COVID because COVID doesn't exist. IT INTERVIEWER * Prachi Pride RN - 04/10/2021 3:51 PM CST Patient up on phone at this time. IT INTERVIEWER * May Mcelroy MD - 04/10/2021 2:00 PM CST Physician Transition Note 2:00 PM Care assumed from Dr. Gregorio. Briefly, Meredith Frost is being evaluated for agitation. Per previous notes, pt has hx that includes polysubstance drug abuse, psychosis, and paranoid schizophrenia. Previous team notes pt is non compliant with medications. Additionally, pt testing positive for COVID on 04/08/2021. Chief Complaint Patient presents with Behavioral Health Concerns pt mom has legal guardianship and has filled out affidavit. Per mom pt has been off her abilify last shot was 01/12/2021. pt has become more irritable and paranoid threatening to long term staff. Pt denies SI/HI or hallucinations Significant Findings: chloride of 108, WBC of 14.7, hemoglobin of 11.7, MCV of 75.7, MCH of 23.1, MCHC of 30.5, platelet count of 420, RDW of 18.3, MPV of 8.8, neutrophils % of 77.1, lymphocytes % of11.6, neutrophils absolute of 11.3, monocytes absolute of 1.18, basophils absolute of 0.09, 1+ protein UA, Trace Ketone UA, 1+ Blood UA, 3+ Leukocyte esterase, >100 RBC UA, >100 WBC UA, moderate WBC clumps, 2+ Bacteria urine, and 6-10 squamous epithelial cells. Pt tested positive for opiates and cannabinoids. Workup (labs/Imaging) pending: None Working Differential: Acute on chronic mental health issues, substance induced mood disorder, other Current Plan/Dispo: Involuntary admission to Psychiatry 2W, pending inpatient bed availability. Please refer to previous Attending note for further details. BP 114/75 Pulse 86 Temp 98.2 ??F (36.8 ??C) (Temporal) Resp 18 Ht 1.651 m (5' 5 ) Wt 62.6 kg (138 lb) SpO2 99% BMI 22.96 kg/m2 ED Course 10:00 PM: GIANNA to Dr Teague. Plan is involuntary admission to psychiatry 2W, pending inpatient bed availability. ICD-10-CM 1. Bizarre behavior R46.2 ADMIT TO 2. COVID-19 U07.1 ADMIT TO 3. Polysubstance abuse F19.10 ADMIT TO 4. Acute cystitis without hematuria N30.00 ADMIT TO By signing my name below, I, Haley Desouza, attest that this documentation has been prepared under the direction and in the presence of Dr. Mcelroy. Signed: Ernesto Lara. I, Dr. Mcelroy, personally performed the services described in this documentation. All medical record entries made by the scribe were at my direction and in my presence. I have reviewed the chart and agree that the record reflects my personal performance and is accurate and complete. Signed: Dr. Mcelroy. 04/13/2021. 3:18 AM. IT INTERVIEWER * Prachi Pride RN - 04/10/2021 1:31 PM CST Patient sitting in wheelchair in room. Patient requesting coffee at this time. N * Prachi Pride RN - 04/10/2021 11:20 AM CST Patient appears to be resting on ED bed with eyes closed. Bed brakes locked and side rails in up position for patient's safety. No acute distress, even and unlabored respirations noted. No new ordersat this time. IT INTERVIEWER * Concha Barron - 04/10/2021 9:56 AM CST Pt is on the phone yelling and crying, pt escorted back to room to deescalate behavior. IT INTERVIEWER * Concepcion Ashby RN - 04/10/2021 6:30 AM CST Patient resting, VSS, no requests at this time, call light within reach. Even unlabored breathing, NAD noted. N * Kisha Gregorio MD - 04/10/2021 6:00 AM CST ASSUMED CARE NOTE Patient signed out to me by Dr. Heller at 6:00 AM. Meredith Frost is a 40 year old female is being evaluated for agitation. Per previous team, multiple medical history including, polysubstance drug abuse, psychosis, and paranoid schizophrenia, and patient has not been compliant with medications recently. Of note, patient tested positive for COVID-19 on 04/08/21. At this time the patient's condition is Stable. Pending inpatient bed availability. Planis transfer to [address] [place] [address]. Vitals: 04/09/21 0904 04/09/21 1630 04/10/21 0311 04/10/21 0800 BP: 123/65 105/75 103/63 114/75 Pulse: 86 101 98 86 Resp: 18 Temp: 97.6 ??F (36.4 ??C) 98.8 ??F (37.1 ??C) 98.2 ??F (36.8 ??C) SpO2: 100% 99% 100% 99% Weight: Height: Labs Reviewed SARS-COV-2 (COVID-19)+INFLU A+B PCR RAPID - Abnormal; Notable for the following components: Result Value COVID-19 PCR Detected (*) All other components within normal limits Narrative: Samples with high concentrations of SARS-CoV-2 RNA may result in false negative influenza testing if a low concentration of influenza virus is present. Influenza A and Influenza B negative results should be considered presumptive negative in samples with a positive SARS-CoV-2 result and influenza testing should be performed by another method if clinically indicated. Influenza assay performed by [employer]. Results do not exclude the possibility of a mixed viral infection. NOTE: Detecting and identifying specific viral nucleic acids from individuals exhibiting signs and symptoms of respiratory infection aids in the diagnosis of respiratory infection, if used in conjunction with other clinical and laboratory findings. The results of this test should not be used as thesole basis for diagnosis, treatment, or patient management decisions. This nucleic acid amplification assay performance was validated by [facility]. This test has been authorized by the Food and Drug administration (FDA)under an Emergency Use Authorization (EUA). This test has been validated [...] this EUA assay are available upon request. CBC W AUTO DIFFERENTIAL - Abnormal; Notable for the following components: WBC 14.7 (*) Hemoglobin 11.7 (*) MCV 75.7 (*) MCH 23.1 (*) MCHC 30.5 (*) Platelet Count 420 (*) RDW-CV 18.3 (*) MPV 8.8 (*) Neutrophils % 77.1 (*) Lymphocytes % 11.6 (*) Neutrophils Absolute 11.3 (*) Monocytes Absolute 1.18 (*) Basophils Absolute 0.09 (*) All other components within normal limits COMPREHENSIVE METABOLIC PANEL - Abnormal; Notable for the following components: Chloride 108 (*) All other components within normal limits URINE DRUG SCREEN IMMUNOASSAY - Abnormal; Notable for the following components: Opiates Urine Positive (*) Cannabinoids Screen Urine Positive (*) All other components within normal limits Narrative: The Urine Toxicology Screening Panel does not screen for Propoxyphene, Meprobamate, Carisoprodol, Trazodone, qjni-[id number]-iydoqfp medications and/or volatiles (Acetone, Isopropanol, Methanol or Ethylene Glycol). Ethanol, Salicylate, Acetaminophen, Tricyclic Antidepressants and several therapeutic drugsmay be individually assayed in serum or plasma specimen. Toxicology testing by the [facility] is an aid to medical diagnosisand treatment of patients. No documented chain of custody was maintained. Results are intended to be used for clinical purposes only. URINALYSIS REFLEX TO MICROSCOPIC NO CULTURE - Abnormal; Notable for the following components: Clarity UA Cloudy (*) Protein UA 1+ (*) Ketone UA Trace (*) Blood UA 1+ (*) Leukocyte Esterase 3+ (*) RBC UA >100 (*) WBC UA >100 (*) WBC Clumps Moderate (*) Bacteria UA 2+ (*) Squamous Epithelial Cells UA 6-10 (*) All other components within normal limits Narrative: ALCOHOL ETHYL BLOOD - Normal Narrative: Ethanol Interp <10: None Detected. Depression of AUTOMOBILE RADIATOR MECHANIC: >100 mg/dl Potentially Critical: >250 mg/dl Potentially Fatal >400 mg/dl Ethanol in the patient's blood will contribute to the osmolar gap. Ethanol's contribution to the osmolar gap can be estimated by dividing the concentration of ethanol in mg/dL by 4.6. This test is for clinical use only and does not equal a RUDY for legal purposes. HCG BETA BLOOD QUANTITATIVE - Normal No orders to display ED Course: 6:50 AM: Patient assessed. Patient is sleeping and is in no acute distress. Awaiting bed transport. Continueantibiotics. Patient signed out to Dr. Mcelroy at 2:00 PM. Patient has remained stable with no acute problems. Pending inpatient bed availability. Clinical Impression: 1. Bizarre behavior 2. COVID-19 3. Polysubstance abuse 4. Acute cystitis without hematuria Disposition: GIANNA to Dr. Mcelroy. By signing my name below, I, Enoch Colon, attest that this documentation has been prepared under the direction and in the presence of Dr. Gregorio. Signed: Ernesto Morales. I, Dr. Gregorio, personally performed the services described in this documentation. All medical record entries made by the scribe were at my direction and in my presence. I have reviewed the chart and agree that the record reflects my personal performance and is accurate and complete. IT INTERVIEWER * Concepcion Ashby RN - 04/10/2021 3:20 AM CST Pt stating that she is feeling a little bit of pain. Will get her PRN Pain medication. IT INTERVIEWER * Ignacio Heller MD - 04/09/2021 10:14 PM CST ASSUME CARE NOTE Patient signed out to me by Dr. Teague at 10:00 PM. Briefly, the patient is being evaluated for agitation. Pt has PMHx including MS, polysubstance abuse, psychosis, and paranoid schizophrenia. He admits to not taking his medications recently. He also tested positive for COVID. Pt is admitted to involuntary. The plan at present is reassess, pending transfer to inpatient floor upon bed availability. Vitals: 04/09/21 0630 04/09/21 0904 04/09/21 1630 04/10/21 0311 BP: 114/68 123/65 105/75 103/63 Pulse: 94 86 101 98 Resp: 18 16 16 18 Temp: 98.3 ??F (36.8 ??C) 97.6 ??F (36.4 ??C) 98.8 ??F (37.1 ??C) SpO2: 100% 100% 99% 100% Weight: Height: Estimated body mass index is 22.96 kg/m?? as calculated from the following: Height as of this encounter: 1.651 m (5' 5 ). Weight as of this encounter: 62.6 kg (138 lb). At this time the following studies are : Labs Reviewed SARS-COV-2 (COVID-19)+INFLU A+B PCR RAPID - Abnormal; Notable for the following components: Result Value COVID-19 PCR Detected (*) All other components within normal limits Narrative: Samples with high concentrations of SARS-CoV-2 RNA may result in false negative influenza testing if a low concentration of influenza virus is present. Influenza A and Influenza B negative results should be considered presumptive negative in samples with a positive SARS-CoV-2 result and influenza testing should be performed by another method if clinically indicated. Influenza assay performed by [employer]. Results do not exclude the possibility of a mixed viral infection. NOTE: Detecting and identifying specific viral nucleic acids from individuals exhibiting signs and symptoms of respiratory infection aids in the diagnosis of respiratory infection, if used in conjunction with other clinical and laboratory findings. The results of this test should not be used as thesole basis for diagnosis, treatment, or patient management decisions. This nucleic acid amplification assay performance was validated by [facility]. This test has been authorized by the Food and Drug administration (FDA)under an Emergency Use Authorization (EUA). This test has been validated [...] this EUA assay are available upon request. CBC W AUTO DIFFERENTIAL - Abnormal; Notable for the following components: WBC 14.7 (*) Hemoglobin 11.7 (*) MCV 75.7 (*) MCH 23.1 (*) MCHC 30.5 (*) Platelet Count 420 (*) RDW-CV 18.3 (*) MPV 8.8 (*) Neutrophils % 77.1 (*) Lymphocytes % 11.6 (*) Neutrophils Absolute 11.3 (*) Monocytes Absolute 1.18 (*) Basophils Absolute 0.09 (*) All other components within normal limits COMPREHENSIVE METABOLIC PANEL - Abnormal; Notable for the following components: Chloride 108 (*) All other components within normal limits URINE DRUG SCREEN IMMUNOASSAY - Abnormal; Notable for the following components: Opiates Urine Positive (*) Cannabinoids Screen Urine Positive (*) All other components within normal limits Narrative: The Urine Toxicology Screening Panel does not screen for Propoxyphene, Meprobamate, Carisoprodol, Trazodone, yqiw-jjq-pgntuiz medications and/or volatiles (Acetone, Isopropanol, Methanol or Ethylene Glycol). Ethanol, Salicylate, Acetaminophen, Tricyclic Antidepressants and several therapeutic drugsmay be individually assayed in serum or plasma specimen. Toxicology testing by the [facility] is an aid to medical diagnosisand treatment of patients. No documented chain of custody was maintained. Results are intended to be used for clinical purposes only. URINALYSIS REFLEX TO MICROSCOPIC NO CULTURE - Abnormal; Notable for the following components: Clarity UA Cloudy (*) Protein UA 1+ (*) Ketone UA Trace (*) Blood UA 1+ (*) Leukocyte Esterase 3+ (*) RBC UA >100 (*) WBC UA >100 (*) WBC Clumps Moderate (*) Bacteria UA 2+ (*) Squamous Epithelial Cells UA 6-10 (*) All other components within normal limits Narrative: ALCOHOL ETHYL BLOOD - Normal Narrative: Ethanol Interp <10: None Detected. Depression of AUTOMOBILE RADIATOR MECHANIC: >100 mg/dl Potentially Critical: >250 mg/dl Potentially Fatal >400 mg/dl Ethanol in the patient's blood will contribute to the osmolar gap. Ethanol's contribution to the osmolar gap can be estimated by dividing the concentration of ethanol in mg/dL by 4.6. This test is for clinical use only and does not equal a RUDY for legal purposes. HCG BETA BLOOD QUANTITATIVE - Normal No orders to display No results found. ED Course: 10:50 PM: Pt resting comfortably on stretcher. Will continue to monitor. 6:00 AM: GIANNA to Dr. Gregorio. Pending transfer to inpatient floor upon bed availability. Clinical Impressions as of 04/10/21 0533 Bizarre behavior COVID-19 Polysubstance abuse Acute cystitis without hematuria Patient signed out by previous team, awaiting inpatient availability. Patient signed out to oncoming team. Clinical Impression: 1. Bizarre behavior 2. COVID-19 3. Polysubstance abuse 4. Acute cystitis without hematuria Disposition: Admit to 2W involuntary. GIANNA to Dr. Gregorio. By signing my name below, I, Monique Goode, attest that this documentation has been prepared under thedirection and in the presence of Dr. Heller. Signed: Ernesto Greene. I, Dr. Heller, personally performed the services described in this documentation. All medical record entries made by the scribe were at my direction and in my presence. I have reviewed the chart and agree that the record reflects my personal performance and is accurate and complete. IT INTERVIEWER * Lauren Delatorre - 04/09/2021 5:56 PM CST Patient eating dinner. IT INTERVIEWER * Lauren Delatorre - 04/09/2021 4:42 PM CST Dinner ordered. IT INTERVIEWER * Chau Teague MD - 04/09/2021 2:38 PM CST ASSUMED CARE NOTE Patient signed out to me by Dr. Montalvo at 2:00 PM. Briefly, Meredith Frost is a 40 year old female with past medical history of MS, polysubstance abuse, psychosis, and paranoid schizophrenia is being evaluated for agitation. At this time the patient's condition is Stable per previous team.Thus far, studies reveal COVID positive, WBC 14.7, UDS positive for cannabinoids and opiates. No pending studies. Plan is admit to 2W involuntary pending bed availability. Reassessment: Patient stable. Vitals WNL. Clinical Impression: 1. Bizarre behavior 2. COVID-19 3. Polysubstance abuse 4. Acute cystitis without hematuria ED Course: 10:00 PM: GIANNA to Dr. Heller Disposition: Admit to 2W involuntary - GIANNA to Dr. Heller By signing my name below, I, Weston Womack, attest that this documentation has been prepared under the direction and in the presence of Dr. Teague. Signed: Ernesto Sanford. I, Dr. Teague, personally performed the services described in this documentation. All medical record entries made by the scribe were at my direction and in my presence. I have reviewed the chart and agree that the record reflects my personal performance and is accurate and complete. IT INTERVIEWER * Lauren Delatorre - 04/09/2021 12:36 PM CST Patient eating lunch at this time. IT INTERVIEWER * Lauren Delatorre - 04/09/2021 11:20 AM CST Lunch ordered. IT INTERVIEWER * Lauren Delatorre - 04/09/2021 9:18 AM CST Patient assisted to wheel chair and restroom at this time. IT INTERVIEWER * Jazmyne Trinh RN - 04/09/2021 9:08 AM CST Pt resting at this time. Bed low and locked. Breakfast tray at bedside. IT INTERVIEWER * Jad Montalvo MD - 04/09/2021 6:48 AM CST ASSUME CARE NOTE Patient signed out to me by Dr. Gayle at 6:00 AM. Briefly, the patient is being evaluated for behavioral issues. She has been intimidating staff members and refusing to take his medication. Pt is denying any SI or HI currently. She is COVID positive. No other modifying factors or complaints at this time. At this time the patient's condition is Good. The plan at present is admit to 2w involuntary Vitals: 04/08/21 1507 04/08/21 1956 04/09/21 0630 04/09/21 0904 BP: 136/83 114/70 114/68 123/65 Pulse: (!) 114 92 94 86 Resp: 18 18 18 16 Temp: 97.9 ??F (36.6 ??C) 97.2 ??F (36.2 ??C) 98.3 ??F (36.8 ??C) 97.6 ??F (36.4 ??C) SpO2: 100% 99% 100% 100% Weight: 62.6 kg (138 lb) Height: 1.651 m (5' 5 ) At this time the following studies are : Labs Reviewed SARS-COV-2 (COVID-19)+INFLU A+B PCR RAPID - Abnormal; Notable for the following components: Result Value COVID-19 PCR Detected (*) All other components within normal limits Narrative: Samples with high concentrations of SARS-CoV-2 RNA may result in false negative influenza testing if a low concentration of influenza virus is present. Influenza A and Influenza B negative results should be considered presumptive negative in samples with a positive SARS-CoV-2 result and influenza testing should be performed by another method if clinically indicated. Influenza assay performed by Nucleic Acid Amplification. Results do not exclude the possibility of a mixed viral infection. NOTE: Detecting and identifying specific viral nucleic acids from individuals exhibiting signs and symptoms of respiratory infection aids in the diagnosis of respiratory infection, if used in conjunction with other clinical and laboratory findings. The results of this test should not be used as thesole basis for diagnosis, treatment, or patient management decisions. This nucleic acid amplification assay performance was validated by [facility]. This test has been authorized by the Food and Drug administration (FDA)under an Emergency Use Authorization (EUA). This test has been validated [...] this EUA assay are available upon request. CBC W AUTO DIFFERENTIAL - Abnormal; Notable for the following components: WBC 14.7 (*) Hemoglobin 11.7 (*) MCV 75.7 (*) MCH 23.1 (*) MCHC 30.5 (*) Platelet Count 420 (*) RDW-CV 18.3 (*) MPV 8.8 (*) Neutrophils % 77.1 (*) Lymphocytes % 11.6 (*) Neutrophils Absolute 11.3 (*) Monocytes Absolute 1.18 (*) Basophils Absolute 0.09 (*) All other components within normal limits COMPREHENSIVE METABOLIC PANEL - Abnormal; Notable for the following components: Chloride 108 (*) All other components within normal limits URINE DRUG SCREEN IMMUNOASSAY - Abnormal; Notable for the following components: Opiates Urine Positive (*) Cannabinoids Screen Urine Positive (*) All other components within normal limits Narrative: The Urine Toxicology Screening Panel does not screen for Propoxyphene, Meprobamate, Carisoprodol, Trazodone, tnhd-zcx-iivjgpe medications and/or volatiles (Acetone, Isopropanol, Methanol or Ethylene Glycol). Ethanol, Salicylate, Acetaminophen, Tricyclic Antidepressants and several therapeutic drugsmay be individually assayed in serum or plasma specimen. Toxicology testing by the [facility] is an aid to medical diagnosisand treatment of patients. No documented chain of custody was maintained. Results are intended to be used for clinical purposes only. URINALYSIS REFLEX TO MICROSCOPIC NO CULTURE - Abnormal; Notable for the following components: Clarity UA Cloudy (*) Protein UA 1+ (*) Ketone UA Trace (*) Blood UA 1+ (*) Leukocyte Esterase 3+ (*) RBC UA >100 (*) WBC UA >100 (*) WBC Clumps Moderate (*) Bacteria UA 2+ (*) Squamous Epithelial Cells UA 6-10 (*) All other components within normal limits Narrative: ALCOHOL ETHYL BLOOD - Normal Narrative: Ethanol Interp <10: None Detected. Depression of AUTOMOBILE RADIATOR MECHANIC: >100 mg/dl Potentially Critical: >250 mg/dl Potentially Fatal >400 mg/dl Ethanol in the patient's blood will contribute to the osmolar gap. Ethanol's contribution to the osmolar gap can be estimated by dividing the concentration of ethanol in mg/dL by 4.6. This test is for clinical use only and does not equal a RUDY for legal purposes. HCG BETA BLOOD QUANTITATIVE - Normal No orders to display ED Course: 1400-GIANNA to Dr. Teague pending bed in 2w Clinical Impression: 1. Bizarre behavior 2. COVID-19 3. Polysubstance abuse 4. Acute cystitis without hematuria Disposition: GIANNA to Dr. Teague By signing my name below, I, Fredrick Valladares, attest that this documentation has been prepared under the direction and in the presence of Dr. Montalvo. Signed: Ernesto Pelletier. I, Dr. Montalvo, personally performed the services described in this documentation. All medical record entries made by the scribe were at my direction and in my presence. I have reviewed the chart and agree that the record reflects my personal performance and is accurate and complete. IT INTERVIEWER * Kandis Choudhary RN - 04/09/2021 12:58 AM CST Pt resting in bed. Respirations equal and unlabored. No acute distress. IT INTERVIEWER * Kandis Choudhary RN - 04/08/2021 10:48 PM CST Pt resting in stretcher. Respirations equal and unlabored. No acute distress. IT INTERVIEWER * Richard Gayle MD - 04/08/2021 9:53 PM CST ASSUMED CARE NOTE Patient signed out to me by Dr. Rebolledo at 10:00 PM. Briefly, Meredith Frost is a 40 year old female with a hx of schizophrenia who is being evaluated for reckless behavior and medication noncompliance. At this time the patient's condition is Stable. Thusfar, studies reveal COVID positive. UDS positive for marijuana and opiates. UA shows concerns for UTI. Pending inpatient bed availability. Plan is reassessment, admit to 2W involuntary. Vitals: 04/08/21 1507 04/08/21 195 BP: 136/83 114/70 Pulse: (!) 114 92 Resp: 18 18 Temp: 97.9 ??F (36.6 ??C) 97.2 ??F (36.2 ??C) SpO2: 100% 99% Weight: 62.6 kg (138 lb) Height: 1.651 m (5' 5 ) ED Course: No acute interventions under my care. 6:00 AM: GIANNA to Dr. Montalvo pending inpatient bed availability. Clinical Impression: 1. Bizarre behavior 2. COVID-19 3. Polysubstance abuse 4. Acute cystitis without hematuria Disposition: Admit to Psychiatry (2W) GIANNA to Dr. Montalvo By signing my name below, I, Stephanie Parker, attest that this documentation has been prepared under the direction and in the presence of Dr. Gayle. Signed: Ernesto aKur. I, Dr. Gayle, personally performed the services described in this documentation. All medical record entries made by the scribe were at my direction and in my presence. I have reviewed the chart and agree that the record reflects my personal performance and is accurate and complete. IT INTERVIEWER * Kandis Choudhary RN - 04/08/2021 7:55 PM CST Pt assisted to bed. Respirations equal and unlabored. No acute distress. IT INTERVIEWER * Aster Rebolledo MD - 04/08/2021 4:35 PM CST ED Attending Note Patient seen and evaluated with Dr. Milligan, who also contributed to this note. Interval History: Meredith Frost is a 40 year old female with PMHx of MS, migraines, polysubstance abuse, psychosis, andparanoid schizophrenia presenting to the ED after sent in by family from rehabilitation facility for reckless behavior . The patient was reportedly intimidating staff members and has been noncompliant with medications, particularly Abilify. Here, patient denies SI, HI, or visual or auditory hallucinations. Patient isn't entirely aware of why she is here. HPI limited 2/2 psychiatric history. Past Medical History: Diagnosis Date Asthma Migraines MS (multiple sclerosis) Seizures Past Surgical History: Procedure Laterality Date UT CHEMODENERV MUSC MIGRAINE 07/18/2017 UT CHEMODENERV MUSC MIGRAINE 10/17/2017 UT CHEMODENERV MUSC MIGRAINE 01/14/2018 UT CHEMODENERV MUSC MIGRAINE 04/15/2018 UT CHEMODENERV MUSC MIGRAINE 07/22/2018 UT CHEMODENERV MUSC MIGRAINE 10/21/2018 UT CHEMODENERV MUSC MIGRAINE 10/13/2019 UT CHEMODENERV MUSC MIGRAINE 01/12/2020 UT CHEMODENERV MUSC MIGRAINE 04/19/2020 UT CHEMODENERV MUSC MIGRAINE 07/21/2020 UT CHEMODENERV MUSC MIGRAINE 11/01/2020 UT CHEMODENERV MUSC MIGRAINE 02/14/2021 Social History Socioeconomic History Marital status: Single Spouse name: Not on file Number of children: Not on file Years of education: Not on file Highest education level: Not on file Occupational History Not on file Tobacco Use Smoking status: Never Smoker Smokeless tobacco: Never Used Vaping Use Vaping Use: Never used Substance and Sexual Activity Alcohol use: Yes Alcohol/week: 1.0 - 2.0 standard drink Types: 1 - 2 Cans of beer per week Comment: socially- once- twice a month, jeffry Drug use: Yes Types: Marijuana Comment: Daily Sexual activity: Not Currently Other Topics Concern Not on file Social History Narrative Not on file Social Determinants of Health Financial Resource Strain: Not on file Food Insecurity: Not on file Transportation Needs: Not on file Physical Activity: Not on file Stress: Not on file Social Connections: Not on file Intimate Partner Violence: Not on file Housing Stability: Not on file Review of Systems: ROS unobtainable 2/2 psychiatric history. Vitals: 04/08/21 1507 04/08/211955 BP: 136/83 114/70 Pulse: (!) 114 92 Resp: 18 18 Temp: 97.9 ??F (36.6 ??C) 97.2 ??F (36.2 ??C) SpO2: 100% 99% Weight: 62.6 kg (138 lb) Height: 1.651 m (5' 5 ) Exam: Constitutional: well developed, well nourished, no acute distress, fidgeting HENT: normocephalic, atraumatic, moist oral mucosa, conjunctiva normal Eyes: PERRL, EOMi Neck: supple, normal ROM Cardiovascular: tachycardia, regular rhythm, no murmur Respiratory: clear to auscultation bilaterally, no wheezes, no respiratory distress Abdomen: soft, non-tender, non-distended Musculoskeletal: no edema or deformities, cast on RLE from orthopedic injury a month ago, intact distal RLE pulse Skin: warm, dry, no lesions Neurological: awake, alert&Ox4, moving all extremities, no focal motor/sensation deficits. Psychiatric: poor insight and judgement, pressured speech, flight of ideas, anxious Medical Decision Makin. 40 y/o female presents for evaluation of schizophrenia, off medications. Differential diagnosis considered: Acute on chronic mental health issues, substance induced mood disorder, other Plan: Psychiatry labs, Psychiatry consult Results: Labs Reviewed SARS-COV-2 (COVID-19)+INFLU A+B PCR RAPID - Abnormal; Notable for the following components: Result Value COVID-19 PCR Detected (*) All other components within normal limits Narrative: Samples with high concentrations of SARS-CoV-2 RNA may result in false negative influenza testing if a low concentration of influenza virus is present. Influenza A and Influenza B negative results should be considered presumptive negative in samples with a positive SARS-CoV-2 result and influenza testing should be performed by another method if clinically indicated. Influenza assay performed by Nucleic Acid Amplification. Results do not exclude the possibility of a mixed viral infection. NOTE: Detecting and identifying specific viral nucleic acids from individuals exhibiting signs and symptoms of respiratory infection aids in the diagnosis of respiratory infection, if used in conjunction with other clinical and laboratory findings. The results of this test should not be used as thesole basis for diagnosis, treatment, or patient management decisions. This nucleic acid amplification assay performance was validated by [facility]. This test has been authorized by the Food and Drug administration (FDA)under an Emergency Use Authorization (EUA). This test has been validated [...] this EUA assay are available upon request. CBC W AUTO DIFFERENTIAL - Abnormal; Notable for the following components: WBC 14.7 (*) Hemoglobin 11.7 (*) MCV 75.7 (*) MCH 23.1 (*) MCHC 30.5 (*) Platelet Count 420 (*) RDW-CV 18.3 (*) MPV 8.8 (*) Neutrophils % 77.1 (*) Lymphocytes % 11.6 (*) Neutrophils Absolute 11.3 (*) Monocytes Absolute 1.18 (*) Basophils Absolute 0.09 (*) All other components within normal limits COMPREHENSIVE METABOLIC PANEL - Abnormal; Notable for the following components: Chloride 108 (*) All other components within normal limits URINE DRUG SCREEN IMMUNOASSAY - Abnormal; Notable for the following components: Opiates Urine Positive (*) Cannabinoids Screen Urine Positive (*) All other components within normal limits Narrative: The Urine Toxicology Screening Panel does not screen for Propoxyphene, Meprobamate, Carisoprodol, Trazodone, pruj-hge-ldfahpe medications and/or volatiles (Acetone, Isopropanol, Methanol or Ethylene Glycol). Ethanol, Salicylate, Acetaminophen, Tricyclic Antidepressants and several therapeutic drugsmay be individually assayed in serum or plasma specimen. Toxicology testing by the [facility] is an aid to medical diagnosisand treatment of patients. No documented chain of custody was maintained. Results are intended to be used for clinical purposes only. URINALYSIS REFLEX TO MICROSCOPIC NO CULTURE - Abnormal; Notable for the following components: Clarity UA Cloudy (*) Protein UA 1+ (*) Ketone UA Trace (*) Blood UA 1+ (*) Leukocyte Esterase 3+ (*) RBC UA >100 (*) WBC UA >100 (*) WBC Clumps Moderate (*) Bacteria UA 2+ (*) Squamous Epithelial Cells UA 6-10 (*) All other components within normal limits Narrative: ALCOHOL ETHYL BLOOD - Normal Narrative: Ethanol Interp <10: None Detected. Depression of AUTOMOBILE RADIATOR MECHANIC: >100 mg/dl Potentially Critical: >250 mg/dl Potentially Fatal >400 mg/dl Ethanol in the patient's blood will contribute to the osmolar gap. Ethanol's contribution to the osmolar gap can be estimated by dividing the concentration of ethanol in mg/dL by 4.6. This test is for clinical use only and does not equal a RUDY for legal purposes. HCG BETA BLOOD QUANTITATIVE - Normal No orders to display ED course: The patient's Oxygen Saturation Monitor was interpreted by me. The reading was 100%. The patient was on RA at the time of the reading. This is interpreted as normal. 4:48 PM: Discussed all the pertinent aspects of the case with Psychiatry who will see the patient. 9:16 PM: Patient is COVID positive. UDS positive for marijuana and opiates. UA shows moderate WBC in clumps. Patient is stable, will treat with abx for UTI. - After discussion with Psychiatry 2W involuntary, the patient will be admitted to their service for further management of care. 10:00 PM: GIANNA to Dr. Gayle pending inpatient bed availability. Plan is admit to Psychiatry 2W. Consult Yes- Psychiatry Procedure done at this time No Ultrasound done at this time No CRITICAL CARE IN THE ED No Orders and Medicine administered during this encounter: Orders Placed This Encounter SARS-COV-2 (COVID-19)+INFLU A+B PCR RAPID ALCOHOL ETHYL BLOOD CBC W AUTO DIFFERENTIAL COMPREHENSIVE METABOLIC PANEL URINE DRUG SCREEN IMMUNOASSAY HCG BETA BLOOD QUANTITATIVE URINALYSIS REFLEX TO MICROSCOPIC NO CULTURE IP CONSULT TO PSYCHIATRY ARIPiprazole (Abilify) tablet 5 mg baclofen (Lioresal) tablet 10 mg budesonide-formoterol (Symbicort) 160-4.5 MCG/ACT inhaler 2 puff lacosamide (Vimpat) tablet 200 mg zonisamide (Zonegran) capsule 500 mg DISCONTD: acetaminophen (Tylenol) tablet 500 mg DISCONTD: ibuprofen (Motrin) tablet 600 mg acetaminophen (Tylenol) tablet 500 mg ibuprofen (Motrin) tablet 600 mg sulfamethoxazole-trimethoprim (Bactrim DS; Septra DS) 800-160 MG tablet 1 tablet Medications ARIPiprazole (Abilify) tablet 5 mg (5 mg Oral $ Given 04/08/211902) baclofen (Lioresal) tablet 10 mg (10 mg Oral $ Given 04/08/212054) budesonide-formoterol (Symbicort) 160-4.5 MCG/ACT inhaler 2 puff (2 puffs Inhalation $ Given 04/08/212054) lacosamide (Vimpat) tablet 200 mg (200 mg Oral $ Given 04/08/212054) zonisamide (Zonegran) capsule 500 mg (500 mg Oral $ Given 04/08/212054) acetaminophen (Tylenol) tablet 500 mg (500 mg Oral $ Given 04/08/211945) ibuprofen (Motrin) tablet 600 mg (600 mg Oral $ Given 04/08/211945) sulfamethoxazole-trimethoprim (Bactrim DS; Septra DS) 800-160 MG tablet 1 tablet (1 tablet Oral $ Given 04/08/212124) Clinical Impression: 1. Bizarre behavior 2. COVID-19 3. Polysubstance abuse 4. Acute cystitis without hematuria Disposition: Admit to Psychiatry 4W GIANNA to Dr. Gayle By signing my name below, I, Sharmin Noland, attest that this documentation has been prepared under the direction and in the presence of Dr. Rebolledo. Signed: Ernesto Mcmahan. I, Dr. Rebolledo, personally performed the services described in this documentation. All medical recordentries made by the scribe were at my direction and in my presence. I have reviewed the chart and agree that the record reflects my personal performance and is accurate and complete. Electronically signed: Dr. Rebolledo Date: 04/09/21 Time: 9:18 PM IT INTERVIEWER * Darline Ryder RN - 04/08/2021 3:45 PM CST Assumed pt's care. Pt cooperative with staff, placed in paper scrubs, resp even and unlabored, skinwarm and dry, ortho splint in place on right lower leg from previous injury, pt denies SI/HI. Sitter initiated. IT INTERVIEWER * Khloe Hall RN - 04/08/2021 3:40 PM CST pt mom has legal guardianship and has filled out affidavit. Per mom pt has been off her Abilify last shot was 01/12/2021. pt has become more irritable and paranoid threatening to long term staff. Pt denies SI/HI or hallucinations IT INTERVIEWER * Tania Carreon RN - 04/08/2021 3:29 PM CST Bed: C04 Expected date: Expected time: Means of arrival: Comments: Renan Frost IT INTERVIEWER documented in this encounter Plan of Treatment Upcoming Encounters Date Type Department Care Team (Late st Contact Info) Description 04/04/2024 8:30 AM CREDIT INTERVIEWER Office Visit [facility] - Dermatology [address] [place] [address], [place] [phone] Marlys Zaragoza MD [address] [facility] [address] [place] [phone] 09/03/2024 9:00 AM CDT Office Visit [facility] - Neurology [address] [place] [address], [place] [phone] Melissa Crook APRN-CLOTH CUTTING MACHINE OPERATOR [address] [place] [address] documented as of this encounter Procedures Procedure Name Priority Date/Time Associated Diagnosis Comments SARS-COV-2 (COVID-19)+INFLU A+B PCR RAPID STAT 04/08/2021 6:13 PM CREDIT INTERVIEWER CBC W AUTO DIFFERENTIAL STAT 04/08/2021 3:52 PM CREDIT INTERVIEWER COMPREHENSIVE METABOLIC PANEL STAT 04/08/2021 3:52 PM CREDIT INTERVIEWER HCG BETA BLOOD QUANTITATIVE STAT 04/08/2021 3:52 PM CREDIT INTERVIEWER ALCOHOL ETHYL BLOOD STAT 04/08/2021 3 :52 PM CREDIT INTERVIEWER URINE DRUG SCREEN IMMUNOASSAY STAT 04/08/2021 3:47 PM CREDIT INTERVIEWER URINALYSIS REFLEX TO MICROSCOPIC NO CULTURE STAT 04/08/2021 1:47 PM CREDIT INTERVIEWER documented in this encounter Results * (ABNORMAL) SARS-COV-2 (COVID-19)+INFLU A+B PCR RAPID (04/08/2021 6:13 PM CREDIT INTERVIEWER) COVID-19 PCR Detected(AA) Not detected 04/08/19 7:09 PM [facility] Influenza A Rapid ALEJANDRINA Not Detected Not Detected 04/08/2021 7:09 PM [facility] Influenza B ALEJANDRINA Rapid Not Detected Not Detected 04/08/2021 7:09 PM [facility] Microbiology SPECIMEN FROM NASOPHARYNGEAL STRUCTURE / Unknown Collection / Unknown 04/08/2021 6:13 PM CREDIT INTERVIEWER 04/08/2021 6:24 PM CREDIT INTERVIEWER [facility] - 04/08/2021 7:09 PM CREDIT INTERVIEWER Samples with high concentrations of SARS-CoV-2 RNA may result in false negative influenza testing if a low concentration of influenza virus is present. Influenza A and Influenza B negative results should be considered presumptive negative in samples with a positive SARS-CoV-2 result and influenza testing should be performed by another method if clinically indicated. Influenza assay performed by Nucleic Acid Amplification. [...] acid amplification assay performance was validated by [facility]. This test has been authorized by the [...] this EUA assay are available upon request. Aster Rebolledo MD LAB - MICROBIOLOGY O RDERABLES [facility] [address] [place] [address], [facility] [phone] * HCG BETA BLOOD QUANTITATIVE (04/08/2021 3:52 PM CREDIT INTERVIEWER) [facility] Beta-hCG Total Quantitative <3 <5 mIU/mL 04/08/2021 5:05 PM [facility] Comment: This assay is cleared for use in the early detection of only. It is not approved for any other uses such as tumor marker screening, tumor marker monitoring, etc. and should not be used for any other purposes. HCG Numeric Result Interpretation: ? Non- Females: ? < 5 mIU/mL ? Post-Menopausal Females: ??< 7 mIU/mL ? Blood BLOOD SPECIMEN / Unknown Venipuncture / Unknown 04/08/2021 3:52 PM CREDIT INTERVIEWER 04/08/2021 4:04 PM [facility] Aster Rebolledo MD LAB - CHEMISTRY ORDE [facility] Performing Organization Address [facility]/State/ZIP Co de Phone Number [facility] [address] [place] [address], [facility] [phone] * (ABNORMAL) COMPREHENSIVE METABOLIC PANEL (04/08/2021 3:52 PM CREDIT INTERVIEWER) [facility] BUN 9 7 - 26 mg/dL 04/08/2021 4:29 PM [facility] Creatinine 0.67 0.56 - 0.96 mg/dL 04/08/2021 4:29 PM [facility] Sodium 143 136 - 145 mmol/L 04/08/2021 4:29 PM [facility] Potassium 3.7 3.5 - 4.5 mmol/L 04/08/2021 4:29 PM [facility] Chloride 108(H) 98 - 107 mmol/L 04/08/2021 4:29 PM [facility] CO2 23 22 - 29 mmol/L 04/08/2021 4:29 PM [facility] Glucose 101 70 - 115 mg/dL 04/08/2021 4:29 PM [facility] Calcium 9.6 8.4 - 10.2 mg/dL 04/08/2021 4:29 PM [facility] Protein Total 6.8 6.0 - 8.3 g/dL 04/08/2021 4:29 PM [facility] Albumin 3.9 3.4 - 5.0 g/dL 04/08/2021 4:29 PM [facility] Bilirubin Total 0.2 0.2 - 1.2 mg/dL 04/08/2021 4:29 PM [facility] Alkaline Phosphatase 107 40 - 150 U/L 04/08/2021 4:29 PM [facility] ALT 14 5 - 55 U/L 04/08/2021 4:29 PM [facility] AST 10 5 - 34 U/L 04/08/2021 4:29 PM [facility] Anion Gap 16 8 - 18 04/08/2021 4:29 PM [facility] BUN/Creatinine Ratio 13 7 - 23 04/08/2021 4:29 PM [facility] Osmolality Calculated 295 270 - 300 mOsm/kg 04/08/2021 4:29 PM [facility] Albumin/Globulin Ratio 1.3 1.1 - 2.3 04/08/2021 4:29 PM [facility] eGFR by CKD-EPI >90 >=90 mL/min/1.7 3 m2 04/08/2021 4:29 PM [facility] Blood BLOOD SPECIMEN / Unknown Venipuncture / Unknown 04/08/2021 3:52 PM CREDIT INTERVIEWER 04/08/2021 4:04 PM [facility] Aster Rebolledo MD LAB - CHEMISTRY ORDE DILIA [facility] [address] [place] [address], [facility] [phone] * (ABNORMAL) CBC W AUTO DIFFERENTIAL (04/08/2021 3:52 PM [facility]) WBC 14.7(H) 3.5 - 10.5 10? 3 /uL 04/08/2021 4:08 PM [facility] RBC 5.07 3.80 - 5.20 10? 6 /uL 04/08/2021 4:08 PM [facility] Hemoglobin 11.7(L) 12.0 - 15.6 g/dL 04/08/2021 4:08 PM [facility] Hematocrit 38.4 35.0 - 45.0 % 04/08/2021 4:08 PM [facility] MCV 75.7(L) 80.7 - 98.3 fL 04/08/2021 4:08 PM [facility] MCH 23.1(L) 26.7 - 34.0 pg 04/08/2021 4:08 PM [facility] MCHC 30.5(L) 30.8 - 35.9 g/dL 04/08/2021 4:08 PM [facility] Platelet Count 420(H) 150 - 400 10? 3 /uL 04/08/2021 4:08 PM [facility] RDW-SD 48.7 36.0 - 50.0 fL 04/08/2021 4:08 PM [facility] RDW-CV 18.3(H) 11.2 - 14.8 % 04/08/2021 4:08 PM [facility] MPV 8.8(L) 9.4 - 12.9 fL 04/08/2021 4:08 PM [facility] nRBC Absolute 0.00 0 10? 3 /uL 04/08/2021 4:08 PM [facility] nRBC Auto 0.0 0 /100 WBC 04/08/2021 4:08 PM [facility] Neutrophils % 77.1(H) 35.0 - 70.0 % 04/08/2021 4:08 PM [facility] Lymphocytes % 11.6(L) 20.0 - 43.0 % 04/08/2021 4:08 PM [facility] Monocytes % 8.0 5.0 - 13.0 % 04/08/2021 4:08 PM [facility] Eosinophils % 2.2 0.0 - 6.0 % 04/08/2021 4:08 PM [facility] Basophil % 0.6 0.0 - 2.0 % 04/08/2021 4:08 PM [facility] Neutrophils Absolute 11.3(H) 1.6 - 7.0 10? 3 /uL 04/08/2021 4:08 PM [facility] Lymphocyte Absolute 1.7 1.1 - 3.9 10? 3 /uL 04/08/2021 4:08 PM [facility] Monocytes Absolute 1.18(H) 0.26 - 1.07 10? 3 /uL 04/08/2021 4:08 PM [facility] Eosinophils Absolute 0.32 0.00 - 0.47 10? 3 /uL 04/08/2021 4:08 PM [facility] Basophils Absolute 0.09(H) 0.00 - 0.08 10? 3 /uL 04/08/2021 4:08 PM [facility] Immature Granulocytes % 0.5 0.0 - 1.0 % 04/08/2021 4:08 PM [facility] Immature Granulocytes Absolute 0.07 04/08/2021 4:08 PM [facility] Blood BLOOD SPECIMEN / Unknown Venipuncture / Unknown 04/08/2021 3:52 PM CREDIT INTERVIEWER 04/08/2021 4:04 PM [facility] Aster Rebolledo MD LAB - HEMATOLOGY ORD ERABLES [address] [address], [facility] [phone] * ALCOHOL ETHYL BLOOD (04/08/2021 3:52 PM CREDIT INTERVIEWER) Ethanol (mg/dL) <10 <10 mg/dL 4:29 PM [facility] Ethanol Calculated (g/dL) <0.010 <0.010 g/dL 04/08/2021 4:29 PM [facility] Blood BLOOD SPECIMEN / Unknown Venipuncture / Unknown 04/08/2021 3:52 PM CREDIT INTERVIEWER 04/08/2021 4:04 PM [facility] - 04/08/2021 4:29 PM CREDIT INTERVIEWER Ethanol Interp <10: None Detected. Depression of AUTOMOBILE RADIATOR MECHANIC: >100 mg/dl Potentially Critical: >250 mg/dl Potentially Fatal >400 mg/dl Ethanol in the patient's blood will contribute to the osmolar gap. Ethanol's contribution to the osmolar gap can be estimated by dividing the concentration of ethanol in mg/dL by 4.6. This test is for clinical use only and does not equal a RUDY for legal purposes. Aster Rebolledo MD LAB - CHEMISTRY MAGDALENA DOBBS [address] [address], [facility] [phone] * (ABNORMAL) URINE DRUG SCREEN IMMUNOASSAY (04/08/2021 3:47 PM [facility]) Amphetamines Screen Urine Negative Negative : < 1000 ng/mL 04/08/2021 4:23 PM [facility] Barbiturates Screen Urine Negative Negative : < 200 ng/mL 04/08/2021 4:23 PM [facility] Benzodiazepine Screen Urine Negative Negative : < 200 ng/mL 04/08/2021 4:23 PM [facility] Opiates Urine Positive(A) Negative : < 300 ng/mL 04/08/2021 4:23 PM [facility] Comment:Positive urine opiat e screening results should be confirmed by another generally accepted non-immunological method such as gas chromatography or mass spectrometry. Cocaine Metabolites Urine Negative Negative : < 300 ng/mL 04/08/2021 4:23 PM [facility] Phencyclidine Screen Urine Negative Negative : < 25 ng/ml 04/08/2021 4:23 PM [facility] Cannabinoids Screen Urine Positive(A) Negative : <50 ng/mL 04/08/2021 4:23 PM [facility] Comment:Positive urine canna binoids (THC) screening results should be confirmed by another generally accepted non-immunological method such as gas chromatography or mass spectrometry. Methadone Screen Urine Negative Negative : < 300 ng/mL 04/08/2021 4:23 PM [facility] Fentanyl Screen Urine Negative Negative : <1.0 ng/mL 04/08/2021 4:23 PM [facility] Urine URINE / Unknown Collection / Unknown 04/08/2021 3:47 PM [facility] 04/08/2021 4:02 PM CREDIT INTERVIEWER Narrative [facility] - 04/08/2021 4:23 PM CREDIT INTERVIEWER The Urine Toxicology Screening Panel does not screen for Propoxyphene, Meprobamate, Carisoprodol, Trazodone, vabl-uep-afbwphw medications and/or volatiles (Acetone, Isopropanol, Methanol or Ethylene Glycol). Ethanol, Salicylate, Acetaminophen, Tricyclic Antidepressants and several therapeutic drugs may be individually assayed in serum or plasma specimen. Toxicology testing by the [facility] is an aid to medical diagnosis and treatment of patients. No documented chain of custody was maintained. Results are intended to be used for clinical purposes only. ? Aster Rebolledo MD LAB - URINE CHEMISTR Y ORDERABLES Performing Organization Address [facility] Co de Phone Number [facility] [address] [place] [address], [facility] [phone] * (ABNORMAL) URINALYSIS REFLEX TO MICROSCOPIC NO CULTURE (04/08/2021 1:47 PM CREDIT INTERVIEWER) Color UA Yellow Straw, Yellow 04/08/2021 7:04 PM [facility] Clarity UA Cloudy(A) Clear 04/08/2021 7:04 PM [facility] Specific Cygnet UA 1.010 1.005 - 1.030 04/08/2021 7:04 PM [facility] pH UA 6.5 5.0 - 8.0 pH 04/08/2021 7:04 PM [facility] Protein UA 1+(A) Negative 04/08/2021 7:04 PM [facility] Glucose UA Negative Negative 04/08/2021 7:04 PM [facility] Ketone UA Trace(A) Negative 04/08/2021 7:04 PM [facility] Bilirubin UA Negative Negative 04/08/2021 7:04 PM [facility] Blood UA 1+(A) Negative 04/08/2021 7:04 PM [facility] Nitrite UA Negative Negative 04/08/2021 7:04 PM [facility] Leukocyte Esterase 3+(A) Negative 04/08/2021 7:04 PM [facility] Urobilinogen UA Negative Negative mg/dL 04/08/2021 7:04 PM [facility] RBC UA >100(A) None Seen, 0-2, 3-5 /HPF 04/08/2021 7:04 PM [facility] WBC UA >100(A) None Seen, 0-5 /HPF 04/08/2021 7:04 PM [facility] WBC Clumps Moderate(A) None /HPF 04/08/2021 7:04 PM [facility] Bacteria UA 2+(A) None /HPF 04/08/2021 7:04 PM [facility] Squamous Epithelial Cells UA 6-10(A) None Seen, 0-2, 3-5 /HPF 04/08/2021 7:04 PM [facility] Urine URINE SPECIMEN OBTAINED BY CLEAN CATCH PROCEDURE / Unknown Collection / Unknown 04/08/2021 1:47 PM CREDIT INTERVIEWER 04/08/2021 6:15 PM CREDIT INTERVIEWER Narrative [facility] - 04/08/2021 7:04 PM CREDIT INTERVIEWER Aster Rebolledo MD LAB - URINALYSIS ORD ERABLES [facility] [address] [place] [phone], [facility] [phone] documented in this encounter Visit Diagnoses Diagnosis Bizarre behavior COVID-19 Polysubstance abuse (HCC) Other, mixed, or unspecified nondependent drug abuse, unspecified Acute cystitis without hematuria Acute cystitis Depression, unspecified depression type Major neurocognitive disorder (HCC) Psychosis, unspecified psychosis type (HCC) Unspecified psychosis not due to a substance or known physiological condition (HCC) Polysubstance abuse (HCC) Other, mixed, or unspecified nondependent drug abuse, unspecified Acute cystitis without hematuria Acute cystitis Bizarre behavior COVID-19 documented in this encounter Administered Medications Inactive Administered Medications - up to 3 most recent administrations Medication Order MAR Action Action Date Dose Rate Site acetaminophen (Tylenol) tablet 500 mg 500 mg, Oral, EVERY 4 HOURS PRN, Mild Pain, Headache, Starting on Sun04/08/21 at 1858, Until Sun04/12/21 at 1728 $ Given 04/12/2021 6:43 AM CREDIT INTERVIEWER 500 mg $ Given 04/12/2021 12:41 AM CREDIT INTERVIEWER 500 mg $ Given 04/11/2021 8:34 PM CREDIT INTERVIEWER 500 mg albuterol HFA (Proventil; Ventolin; Proair) 108 (90 Base) MCG/ACT inhaler 2 puff 2 puff, Inhalation, EVERY 4 HOURS PRN, Shortness of Breath, Wheezing, Starting on Sun04/09/21 at 1832, Until Sun04/12/21 at 1728, Shake well before using. WASTE DISPOSAL INSTRUCTION: Send to Pharmacy for Disposal. $ Given 04/12/2021 2:41 PM CREDIT INTERVIEWER 2 puffs $ Given 04/12/2021 7:22 AM CREDIT INTERVIEWER 2 puffs $ Given 04/11/2021 6:19 PM CREDIT INTERVIEWER 2 puffs albuterol HFA (Proventil; Ventolin; Proair) 108 mcg inhaler ADS Med 1 dose, Starting on Sun04/09/21 at 1906, Until Sun04/09/21 at 1911, Created by cabinet override Shake well before using. WASTE DISPOSAL INSTRUCTION: Send to Pharmacy for Disposal. ARIPiprazole (Abilify) tablet 10 mg 10 mg, Oral, DAILY, First dose on Sun04/12/21 at 0900, Until Discontinued $ Given 04/12/2021 9:22 AM CREDIT INTERVIEWER 10 mg ARIPiprazole (Abilify) tablet 5 mg 5 mg, Oral, DAILY, First dose on Sun04/08/21 at 1815, Until Discontinued $ Given 04/11/2021 8:41 AM CREDIT INTERVIEWER 5 mg $ Given 04/10/2021 9:16 AM CREDIT INTERVIEWER 5 mg $ Given 04/09/2021 9:06 AM CREDIT INTERVIEWER 5 mg ARIPiprazole (Abilify) tablet 5 mg 5 mg, Oral, ONCE, 1 dose, On Sun04/11/21 at 1300 $ Given 04/11/2021 1:30 PM CREDIT INTERVIEWER 5 mg ARIPiprazole ER (Abilify Maintena) prefilled syringe 300 mg 300 mg, Intramuscular, ONCE, 1 dose, On Sun04/11/21 at 1445 $ Given 04/11/2021 2:45 PM CREDIT INTERVIEWER 300 mg Buttock baclofen (Lioresal) tablet 10 mg 10 mg, Oral, 2 TIMES DAILY, First dose on Sun04/08/21 at 2100, Until Discontinued $ Given 04/12/2021 9:22 AM CREDIT INTERVIEWER 10 mg $ Given 04/11/2021 8:34 PM CREDIT INTERVIEWER 10 mg $ Given 04/11/2021 8:43 AM CREDIT INTERVIEWER 10 mg budesonide-formoterol (Symbicort) 160-4.5 MCG/ACT inhaler 2 puff 2 puff, Inhalation, 2 TIMES DAILY, First dose on Sun04/08/21 at 2100, Until Discontinued, Rinse mouth after usage . WASTE DISPOSAL INSTRUCTION: Send to Pharmacy for Disposal. . $ Given 04/12/2021 9:22 AM CREDIT INTERVIEWER 2 puffs $ Given 04/11/2021 11:50 PM CREDIT INTERVIEWER 2 puffs $ Given 04/11/2021 8:44 AM CREDIT INTERVIEWER 2 puffs escitalopram (Lexapro) tablet 20 mg 20 mg, Oral, DAILY, First dose on Sun04/11/21 at 1300, Until Discontinued $ Given 04/12/2021 10:24 AM CREDIT INTERVIEWER 20 mg $ Given 04/11/2021 1:30 PM CREDIT INTERVIEWER 20 mg ibuprofen (Motrin) tablet 600 mg 600 mg, Oral, EVERY 6 HOURS PRN, Moderate Pain, Starting on Sun04/08/21 at 1858, Until Sun04/12/21 at 1728, Maximum allowable amount = 3200 mg / 24 hours. $ Given 04/12/2021 6:43 AM CREDIT INTERVIEWER 600 m g $ Given 04/11/2021 8:35 PM CREDIT INTERVIEWER 600 mg $ Given 04/11/2021 1:30 PM CREDIT INTERVIEWER 600 mg lacosamide (Vimpat) tablet 200 mg 200 mg, Oral, 2 TIMES DAILY, First dose on Sun04/08/21 at 2100, Until Discontinued $ Given 04/12/2021 9:23 AM CREDIT INTERVIEWER 200 mg $ Given 04/11/2021 11:49 PM CREDIT INTERVIEWER 200 mg $ Given 04/11/2021 8:42 AM CREDIT INTERVIEWER 200 mg sulfamethoxazole-trimethoprim (Bactrim DS; Septra DS) 800-160 MG tablet 1 tablet 1 tablet, Oral, EVERY 12 HOURS, First dose on Sun04/08/21 at 2130, Until Discontinued, Indication for anti-infective therapy: Suspected infection, Site of anti-infective therapy: Urine/Genitourinary $ Given 04/12/2021 9:22 AM CREDIT INTERVIEWER 1 tablet $ Given 04/11/2021 8:34 PM CREDIT INTERVIEWER 1 tablet $ Given 04/11/2021 8:43 AM CREDIT INTERVIEWER 1 tablet zonisamide (Zonegran) capsule 500 mg 500 mg, Oral, AT BEDTIME, First dose on Sun04/08/21 at 2100, Until Discontinued, Swallow whole, do not crush or chew. $ Given 04/11/2021 11:50 PM CREDIT INTERVIEWER 500 mg $ Given 04/10/2021 9:10 PM CREDIT INTERVIEWER 500 mg $ Given 04/10/2021 3:25 AM CREDIT INTERVIEWER 500 mg documented in this encounter Active and Recently Administered Medications Times are shown in CREDIT INTERVIEWER. Scheduled Medication Order 04/10/2021 04/11/2021 04/12/2021 ARIPiprazole (Abilify) tablet 10 mg 10 mg, Oral, DAILY, First dose on Sun04/12/21 at 0900, Until Discontinued 0922 ($ Given - Provider: Manuel Ram, YOVANA) ARIPiprazole (Abilify) tablet 5 mg (CANCELED) 5 mg, Oral, DAILY, First dose on Sun04/08/21 at 1815, Until Discontinued 0916 ($ Given - Provider: Iván Townsend) 0841 ($ Given - Provider: Gianna Macdonald RN) ARIPiprazole (Abilify) tablet 5 mg (COMPLETED) 5 mg, Oral, ONCE, 1 dose, On Sun04/11/21 at 1300 1330 ($ Given - Provider: Tania Carreon, YOVANA) ARIPiprazole ER (Abilify Maintena) prefilled syringe 300 mg (COMPLETED) 300 mg, Intramuscular, ONCE, 1 dose, On Sun04/11/21 at 1445 1445 ($ Given - Provider: Tania Carreon, YOVANA) baclofen (Lioresal) tablet 10 mg 10 mg, Oral, 2 TIMES DAILY, First dose on Sun04/08/21 at 2100, Until Discontinued 0916 ($ Given - Provider: Iván Townsend)2109 ($ Given - Provider: Kandis Choudhary, YOVANA) 0843 ($ Given - Provider: Gianna Macdonald, RN)203 ($ Given - Provider: Greg Chappell, RN) 0922 ($ Given - Provider: Manuel Ram RN) budesonide-formoterol (Symbicort) 160-4.5 MCG/ACT inhaler 2 puff 2 puff, Inhalation, 2 TIMES DAILY, First dose on Sun04/08/21 at 2100, Until Discontinued, Rinse mouth after usage . WASTE DISPOSAL INSTRUCTION: Send to Pharmacy for Disposal. . 15 ($ Given - Provider: Iván Townsend)1952 ($ Given - Provider: Bela Alves RN) 0844 ($ Given - Provider: Gianna Macdonald RN)235 ($ Given - Provider: Greg Chappell, YOVANA) 0922 ($ Given - Provider: Manuel Ram, YOVANA) escitalopram (Lexapro) tablet 20 mg 20 mg, Oral, DAILY, First dose on Sun04/11/21 at 1300, Until Discontinued 1330 ($ Given - Provider: Tania Carreon, YOVANA) 1024 ($ Given - Provider: Manuel Ram, YOVANA - Comment: called pharmacy regarding insufficient med in pyxis. Pharmacy to tube medication.) lacosamide (Vimpat) tablet 200 mg 200 mg, Oral, 2 TIMES DAILY, First dose on Sun04/08/21 at 2100, Until Discontinued 1020 ($ Given - Provider: Prachi Pride RN)211 ($ Given - Provider: Kandis Choudhary, YOVANA) 0842 ($ Given - Provider: Gianna Macdonald, YOVANA)2349 ($ Given - Provider: Greg Chappell, YOVANA) 0923 ($ Given - Provider: Manuel Ram, YOVANA) sulfamethoxazole-trimet hoprim (Bactrim DS; Septra DS) 800-160 MG tablet 1 tablet 1 tablet, Oral, EVERY 12 HOURS, First dose on Sun04/08/21 at 2130, Until Discontinued, Indication for anti-infective therapy: Suspected infection, Site of anti-infective therapy: Urine/Genitourinary 0916 ($ Given - Provider: Iván Townsend)211 ($ Given - Provider: Kandis Choudhary, YOVANA) 0843 ($ Given - Provider: Gianna Macdonald RN)2033 ($ Given - Provider: Greg Chappell, RN) 0922 ($ Given - Provider: Manuel Ram RN) zonisamide (Zonegran) capsule 500 mg 500 mg, Oral, AT BEDTIME, First dose on Sun04/08/21 at 2100, Until Discontinued, Swallow whole, do not crush or chew. 0325 ($ Given - Provider: Concepcion Ashby, YOVANA)2109 ($ Given - Provider: Kandis Choudhary RN) 2350 ($ Given - Provider: Greg Chappell, YOVANA) PRN Medication Order 04/10/2021 04/11/2021 04/12/2021 acetaminophen (Tylenol) tablet 500 mg 500 mg, Oral, EVERY 4 HOURS PRN, Mild Pain, Headache, Starting on Sun04/08/21 at 1858, Until Sun04/12/21 at 1728 0325 ($ Given - Provider: Concepcion Ashby, YOVANA)1525 ($ Given - Provider: Kandis Choudhary, YOVANA) 1530 ($ Given - Provider: Tania Carreon RN)2033 ($ Given - Provider: Greg Chappell, YOVANA) 0041 ($ Given - Provider: Greg Chappell, RN)0643 ($ Given - Provider: Greg Chappell, RN) albuterol HFA (Proventil; Ventolin; Proair) 108 (90 Base) MCG/ACT inhaler 2 puff 2 puff, Inhalation, EVERY 4 HOURS PRN, Shortness of Breath, Wheezing, Starting on Sun04/09/21 at 1832, Until Sun04/12/21 at 1728, Shake well before using. WASTE DISPOSAL INSTRUCTION: Send to Pharmacy for Disposal. 0919 ($ Given - Provider: Iván Townsend)1333 ($ Given - Provider: Kandis hCoudhary, YOVANA)1999 ($ Given - Provider: Bela Alves RN) 1819 ($ Given - Provider: Tania Carreon RN) 0722 ($ Given - Provider: Manuel Ram, RN)1441 ($ Given - Provider: Manuel Ram RN) ibuprofen (Motrin) tablet 600 mg 600 mg, Oral, EVERY 6 HOURS PRN, Moderate Pain, Starting on Sun04/08/21 at 1858, Until Sun04/12/21 at 1728, Maximum allowable amount = 3200 mg / 24 hours. 0325 ($ Given - Provider: Concepcion Ashby RN)1525 ($ Given - Provider: Kandis Choudhary, YOVANA) 1330 ($ Given - Provider: Tania Carreon RN)2035 ($ Given - Provider: Greg Chappell, YOVANA) 0643 ($ Given - Provider: Greg Chappell, YOVANA) documented in this encounter Additional Health Concerns Infection Onset Date Last Indicated Resolved Time COVID-19 Confirmed 04/08/2021 04/08/2021 2 4:33 AM CREDIT INTERVIEWER documented as of this encounter Care Teams Hydro Technician Relationship Specialty Start Date End Date Lauren Saba, OPTICS MANUFACTURING TECHNICIAN-CLOTH CUTTING MACHINE OPERATOR [address] [place] [phone] PCP - General 01/14/18 05/10/23 documented as of this encounter
--- OUTSIDE RECORDS SUMMARY | 2024-03-22 16:38 | XMS_ITS | Encounter Summary ---
Author Organization [facility] Health Address [address] [place] [address] Care Team Providers Care Tubing Supervisor Name Role Phone Lauren Saba LISETTE-PATIENT SERVICES ASSISTANT Primary Care Provider Encounter Details Date Type Department Care Team (Latest Contact Info) Description 09/03/2020 Travel Social History Tobacco Use Types Packs/Day [...] have Coronavirus / COVID-19? No / Unsure 09/03/2020 9:52 AM CDT documented as of this encounter Plan of Treatment Upcoming Encounters Date Type Department Care Team (Late st Contact Info) Description 04/04/2024 8:30 AM MOLD PRESS OPERATOR Office Visit [facility] - Dermatology [address] [place] [address], [place] [phone] Marlys Zaragoza MD [address] [place] [address] [address] [place] [address] 09/03/2024 9:00 AM CDT Office Visit [facility] - Neurology [facility] [facility] [place] [address] Melissa Crook, YARD TRUCK DRIVER-PATIENT SERVICES ASSISTANT [address] [place] [phone] documented as of this encounter Visit Diagnoses Not on filedocumented in this encounter Care Teams Tubing Supervisor Relationship Specialty Start Date End Date Lauren Saba, YARD TRUCK DRIVER-PATIENT SERVICES ASSISTANT [address] [place] [address] PCP - General 01/14/18 05/10/23 documented as of this encounter
--- OUTSIDE RECORDS SUMMARY | 2024-03-22 16:38 | XMS_ITS | Encounter Summary ---
Author Organization [facility] Health Address [address] [place] [address] Care Team Providers Care Deputy District Customs Director Name Role Phone Lauren Saba LISETTE-HIDE MILL MAN Primary Care Provider Reason for Visit * Reason Comments Neuropsychological Evaluation Encounter Details Date Type Department Care Team (Latest Contact Info) Description 06/01/2020 8:00 AM CDT Office Visit [facility] [address] [place] [address] Jefferson Suarez, PhD [address] [place] [address] Major neurocognitive disorder (HCC) (Primary Dx) Social History Tobacco Use Types Packs/Day Years Used Date Smoking Tobacco: Never Smokeless Tobacco: Never Alcohol Use Standard Drinks/Week Comments Yes 4 (1 standard drink = 0.6 oz pur e alcohol) socially- once- twice a month Sex and Gender Information Value Date Recorded Sex Assigned at Female 06/22/2023 9:58 AM CDT Gender Identity Female 06/22/2023 9:58 AM CDT Sexual Orientation Straight 06/22/2023 9: 58 AM CDT documented as of this encounter Progress Notes * Jefferson Suarez, PhD - 07/01/2020 5:28 PM CDT Images from the original note were not included. [address] [place] [address] Department of Neurology & Psychiatry Neuropsychology Service NEUROPSYCHOLOGICAL EVALUATION CONFIDENTIAL Name: Meredith Frost Education: 16yrs : 1980 (39yrs) Occupation: Disabled GARCIA: 06/01/2020 Handedness: Right ANALY: 07/01/2020 Referral: Dr. Cabral Identifying Information and Reason for Referral Ms. Meredtih Frost is a 39-year-old, right-handed, female with a history of epilepsy, [...] psychotic symptoms or clinically elevated depression symptoms. Background Information The following information was obtained from a clinical interview with the patient, and a review of select medical records. Please refer to her 2019 report of neuropsychological evaluation for additional background information. Cognitively, Ms. Frost reported that her language abilities have declined, with poor articulation and low volume of speech output. She also reported variable attention and talking too fast at times. She denied significant changes in memory, visuospatial skills, or with impulsivity or problem solving. Physically, she reported worse balance with subsequent falls. She denied any personality or behavior changes. Functionally, the patient reported that she now receives assistance with finances and medications. She cooks independently. She does not drive. She reported full independence for basic ADLs (bathing,dressing, grooming, eating, toileting). Medically, she denied any significant changes and no new illnesses or injuries were reported. Psychologically, she reported her current mood to be ???good?? and denied current suicidal or homicidal ideation. She denied current or recent auditory or visual hallucinations, and there was no evidence of delusional thinking. She reported no changes in her psychiatric care. Regarding substance use, the patient reported that she still consumes alcohol in social situations.She continues to use marijuana daily. She denied other illicit substance use or prescription drug abuse/misuse. Her most recent brain MRI dated 09/25/2019 was read as showing, ???Multiple intracranial white matter lesions compatible with multiple sclerosis. No new T2 lesions and no new enhancing lesions to suggest active demyelination. Moderate parenchymal volume loss, advanced for the patient's stated age.?? Current medications include (per medical records): Abilify Maintena (300mg injection), albuterol HFA, alprazolam (0.5mg), baclofen (10mg), benzoyl peroxide (10% wash), budesonide-formoterol inhaler, clindamycin (300mg), erythromycin (2% solution), escitalopram (20mg), fluticasone propionate nasal spray, ibuprofen (800mg), ketoconazole (2% cream), ocrelizumab (600mg by IV every 6mos), onabotulinumtoxin A injection every 90days, sumatriptan (50mg), tretinoin (0.05% cream), and zonisamide (100mg). The patient currently lives in a home with three roommates. She reported that her brother currentlyhas custody of her son. Her parents recently moved [facility] to [place], and helped to set up an in-group home paraprofessional for Ms. Frost. She is not currently working and continues to receive SSDI. Neurobehavioral Status Exam by Psychologist/Behavioral Observations Informed consent procedures were reviewed with the patient, and written consent was obtained. She arrived on time to her appointment and was unaccompanied. She reported last using marijuana the day prior to this appointment, however, later in the evaluation she confided that she had used marijuana in the early intervention school psychologist hours prior to this evaluation. She was counseled that her recent cannabis use w ill limit validity of test results and was provided opportunity to reschedule for a later date. Shedeclined opportunity to reschedule and said she did not think she would be able to refrain from marijuana use prior to any future appointment. She was casually dressed and adequately groomed. She wasalert and able to engage in all assessment procedures. Hearing and vision were judged to be adequate for testing. Attention was intact for assessment purposes. No gross motor deficits were observed. Spontaneous speech was fluent with low volume, mildly fast rate, and normal prosody. Occasional word-finding difficulties were observed. Basic auditory verbal comprehension was intact and adequate fortesting purposes. Thought processes were coherent and thought content was logical. Affect was blunted. She denied current suicidal ideation or homicidal ideation, and she was not in acute crisis during this evaluation. She was pleasant and cooperative with all evaluation procedures and obtained a passing score on a performance validity test; however, her marijuana use on the morning of this evaluation call into question validity of this data. Tests Administered by Scrap Metal Collector Jose Diagnostic System (GDS); Patient Health Questionnaire-9 (PHQ-9); Performance Validity Test (PVT); Repeatable Battery for the Assessment of Neuropsychological Status-Update (RBANS) form B; and Alplaus Making Test (TMT) Part A and Part [...] of the room and all test materials. Integrated Summary and Impressions Ms. Frost is a 39-year-old female with a previous diagnosis of Major Neurocognitive Disorder, who returned for repeat neuropsychological evaluation just over 1-year since her previous evaluation. The below results are seen in the context of marijuana use on the day of the evaluation. The patient reported being unable to refrain from her daily marijuana use, and thus requested to complete this evaluation despite the questionable judgement and understanding the below results may be impacted by herrecent marijuana use. Compared to her 2018 evaluation, Ms. Frost demonstrated stable performance on all but one measure given. On a test of processing speed, there was a significant decline in her performance. On the current evaluation, relative to similarly aged peers, Ms. Frost demonstrated borderline impaired or impaired performances on all measures administered, including in the areas of attention, processing speed, executive function, verbal and visual learning and memory, semantic (category) verbal f luency, visual naming, and visuospatial ability. On self-report questionnaire, she reported minimalcurrent depressive symptoms. In sum, Ms. Frost is demonstrating largely stable cognitive functioning relative to January 2019 despite her marijuana use on the day of this evaluation. Her reduced judgement and cognitive profile with widespread dysfunction, along with needing assistance with many IADLs remains consistent with a diagnosis of Major Neurocognitive Disorder. Etiology is likely multifactorial with contribution fromher MS, epilepsy, daily marijuana use, and possible schizophrenia vs other psychotic disorder. She denied current psychotic symptoms or clinically elevated depression symptoms Based upon this evaluation the following recommendations are offered: 1. The results of this evaluation were discussed with the patient and her mother (appointed guardian). 2. The patient will continue to benefit from her psychiatric care and regular psychotherapy. 3. Due to her reduced judgment and cognitive deficits she will require at least a moderate degree of oversight with more complex IADLs (e.g., medication and sales financial analyst). 4. Based on her overall clinical picture, she is judged to be a significant safety risk for the operation of a motor vehicle on public roads, and thus must continue to refrain from driving. 5. The patient???s widespread cognitive deficits can be expected to preclude her from being able toobtain and maintain employment. 6. Ms. Frost is encouraged to engage in the following lifestyle/healthy behaviors that have been associated with brain health: a. She is recommended to keep physically, mentally, and socially active. Physical activity, especially 150+ minutes of exercise/week has recently been associated with maintaining good brain health with age. As such, if medically cleared, adhering to a routine of daily exercise may be beneficial forMsWilda Frost. b. Regular social engagement is recommended, as it can benefit cognitive and psychological health. c. The patient is encouraged to reduce her daily cannabis use to improve her day-to-day cognitive functioning. 7. A repeat neuropsychological evaluation may be considered in 12-months, to track her cognitive status over time. If she experiences MS symptom exacerbation or concern for cognitive or behavioral change, sooner evaluation should be considered. Thank you for allowing us to participate in . Santosh???s care. If you have any questions about the information contained in this report, please do not hesitate to contact me directly at . Jefferson Suarez, Ph.D. Neuropsychology Service Instructor of Neurology Licensed Psychologist #[id number] Carlos Alberto See M.A. Childbirth And Infant Care Teacher Neuropsychological Services Provided Code Total Units/ Hours Clinical Interview/Neurobehavioral Status Exam Hour 1 24015 1 Professional Neuropsychological Testing Evaluation Services Hour 1 39450 1 Each Additional Hour 73611 2 Neuropsychological Test Administration and Scoring by Scrap Metal Collector First 30-minutes 27608 1 Each Additional 30-minutes 18999 3 SUMMARY OF TEST SCORES: INTELLECTUAL/GLOBAL ?RBANS Form: B Raw ss % SS IM List Learning 10 1 49 3 1 2 4 Story Memory 9 3 VC Figure Copy 5 1 53 Line [place] 6 <=2 L [place]aming 8 3-9 54 Fluency 8 1 A Digit Span 4 1 40 Coding 10 1 DM List Recall 0 <=2 44 List Recogn 18 3-9 Story Recall 1 1 Figure Recall 9 3 Total 45 ATTENTION ?Alplaus Making Test Time ss T Error Part A 96 - 4 0 Part B d/c???d - - - ?Jose Diagnostic System (GDS) Vigilance Task Raw Z Total Correct 4 -49.423 Total Commission 19 -11.794 Reaction Time 360 0.252 Distractibility Task Raw Z Total Correct 19 -1.641 Total Commission 25 -7.823 Reaction Time 600 -2.516 PERFORMANCE VALIDITY The patient obtained a passing score on a standalone PVT. PERSONALITY & BEHAVIOR Raw Rating ?PHQ-9 0 minimal COMPARISON OF TEST SCORES: 01/31/2019 06/01/2020 Measure RBANS SS SS Immediate Memory 61 49 Visuospatial/Constructional 60 53 Language 54 54 Attention 43 40 Delayed Memory 44 44 Total 47 45 ss / %ile ss / %ile List Learning 3 1 Story Memory 4 3 Figure Copy 1 1 Line Orientation <=2 <=2 Picture naming 3-9 3-9 Semantic Fluency 1 1 Digit Span 2 1 Coding 1 1 List Recall <=2 <=2 List Recognition <=2 3-9 Story Recall 1 1 Figure Recall 1 3 Alplaus Making Test Raw T Raw T Part A 45 27 96 4* Part B d/c???d - d/c???d - FAS 9 10 - - BNT-II 47 31 - - Jose Vigilance - - Raw Z # Correct - - 4 -49.423 # Commissions - - 19 -11.794 Reaction Time - - 360 0.252 Jose Distractibility - - Raw Z # Correct - - 19 -1.641 # Commissions - - 25 -7.823 Reaction Time - - 600 -2.516 Raw Raw PHQ-9 2 0 *Indicates clinically significant decline. documented in this encounter Plan of Treatment Upcoming Encounters Date Type Department Care Team (Late st Contact Info) Description 04/04/2024 8:30 AM AGRICULTURAL EQUIPMENT SALESPERSON Office Visit [facility] - Dermatology [address] [place] [phone] Marlys Zaragoza MD [address] [place] [address] [address] [place] [phone] 09/03/2024 9:00 AM CDT Office Visit [facility] Neurology [address] [place] [address], [place] [phone] Melissa Crook APRN-HIDE MILL MAN [address] [place] [address] documented as of this encounter Visit Diagnoses Diagnosis Major neurocognitive disorder (HCC)- Primary documented in this encounter Care Teams Deputy District Customs Director Relationship Specialty Start Date End Date Lauren Saba APRN-HIDE MILL MAN [address] [place] [phone] PCP - General 01/14/18 05/10/23 documented as of this encounter
--- OUTSIDE RECORDS SUMMARY | 2024-03-22 16:38 | XMS_ITS | Encounter Summary ---
Author Organization [facility] Health Address [address] [facility] [place] [address] Care Team Providers Care Emergency Dispatcher Name Role Phone Lauren Saba LISETTE-COFFEE PLANTATION WORKER Primary Care Provider Reason for Visit * Reason Comments Refill Request Encounter Details Date Type Department Care Team (Late Contact Info) Description 02/20/2021 Refill [facility] [address] [place] [phone] Mrakus Cabral MD [address] [place] [phone] Refill Request Social History Tobacco Use Types [...] (Late Contact Info) Description 04/04/2024 8:30 AM SOIL SPECIALIST Office Visit [facility] Dermatology [address] [place] [phone] Marlys Zaragoza MD [address] [facility] [address] [place] [address] 09/03/2024 9:00 AM CDT Office Visit [facility] [address] [facility], [place] [phone] Melissa Crook APRN-COFFEE PLANTATION WORKER [address] [place] [phone] documented as of this encounter Visit Diagnoses Diagnosis MS (multiple sclerosis) (HCC) Multiple sclerosis Vitamin D deficiency High risk medication use Encounter for long-term (current) use of other medications Nonintractable epilepsy without status epilepticus, unspecified epilepsy type (HCC) Mild cognitive impairment Mild cognitive impairment, so stated Intractable chronic 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 without status migrainosus Chronic migraine without aura, with intractable migraine, so stated, without mention of status migrainosus Spasticity Abnormal involuntary movements documented in this encounter Care Teams Emergency Dispatcher Relationship Specialty Start Date End Date Lauren Saba APRN-COFFEE PLANTATION WORKER [address] [place] [address] PCP - General 01/14/18 05/10/23 documented as of this encounter
--- OUTSIDE RECORDS SUMMARY | 2024-03-22 16:38 | XMS_ITS | Encounter Summary ---
Author Organization [facility] Health Address [address] [place] [address] Care Team Providers Care Veterinary Science Teacher Name Role Phone Lauren Saba LISETTE-PRODUCE INSPECTOR Primary Care Provider Encounter Details Date Type Department Care Team (Latest Contact Info) Description 01/07/2021 Travel Social History Tobacco Use Types Packs/Day [...] have Coronavirus / COVID-19? No / Unsure 01/07/2021 8:52 AM CDT documented as of this encounter Plan of Treatment Upcoming Encounters Date Type Department Care Team (Late st Contact Info) Description 04/04/2024 8:30 AM AIRPORT TOWER CONTROLLER Office Visit [facility] - Dermatology [address] [place] [address], [place] [phone] Marlys Zaragoza MD [address] [place] [address] 3 [place] [address] 09/03/2024 9:00 AM CDT Office Visit [facility] [facility] [place] [address] Melissa Crook, IT SECURITY ARCHITECT-PRODUCE INSPECTOR [address] [place] [phone] documented as of this encounter Visit Diagnoses Not on filedocumented in this encounter Care Teams Veterinary Science Teacher Relationship Specialty Start Date End Date Lauren Saba, IT SECURITY ARCHITECT-PRODUCE INSPECTOR [address] [place] [phone] PCP - General 01/14/18 05/10/23 documented as of this encounter
--- OUTSIDE RECORDS SUMMARY | 2024-03-22 16:38 | XMS_ITS | Encounter Summary ---
Author Organization [facility] Health Address [address] [facility] [place] [address] Care Team Providers Care Wine Pasteurizer Name Role Phone Lauren Saba LISETTE-CABINETMAKER HELPER Primary Care Provider Encounter Details Date Type Department Care Team (Latest Contact Info) Description 11/01/2020 Travel Social History Tobacco Use Types Packs/Day [...] have Coronavirus / COVID-19? No / Unsure 11/01/2020 3:32 PM CDT documented as of this encounter Plan of Treatment Upcoming Encounters Date Type Department Care Team (Late st Contact Info) Description 04/04/2024 8:30 AM DRILL SHARPENER OPERATOR Office Visit [facility] - Dermatology [address] [place] [address], [place] [phone] Marlys Zaragoza MD [address] [place] [address] [address] [place] [address] 09/03/2024 9:00 AM CDT Office Visit [facility] - [facility] [place] [address] Melissa Crook, [employer] SALES MANAGER-CABINETMAKER HELPER [address] [place] [phone] documented as of this encounter Visit Diagnoses Not on filedocumented in this encounter Care Teams Wine Pasteurizer Relationship Specialty Start Date End Date Lauren Saba, [employer] SALES MANAGER-CABINETMAKER HELPER [address] [place] [phone] PCP - General 01/14/18 05/10/23 documented as of this encounter
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
--- OUTSIDE RECORDS SUMMARY | 2024-03-22 16:38 | XMS_ITS | Encounter Summary ---
Author Organization [facility] Health Address [address] [facility] [place] [address] Care Team Providers Care Mule Rider Name Role Phone Lauren Saba Jose Eduardo KNOX-HEALTH CARE MARKETING MANAGER Primary Care Provider Encounter Details Date Type Department Care Team (Late Contact Info) Description 07/02/2020 Orders Only [facility] [address] [place] [address] Markus Cabral MD [address] [place] [address] Social History Tobacco Use Types Packs/Day Years [...] (Late Contact Info) Description 04/04/2024 8:30 AM INTERNAL AUDIT SENIOR MANAGER Office Visit [facility] Dermatology [address] [place] [phone] Marlys Zaragoza MD [facility]5 [facility] 3L [place] [phone] 09/03/2024 9:00 AM CDT Office Visit [facility] - Neurology [address] [place] [address], [place] [phone] Melissa Crook APRN-HEALTH CARE MARKETING MANAGER [address] [place] [phone] documented as of this encounter Visit Diagnoses Not on filedocumented in this encounter Care Teams Mule Rider Relationship Specialty Start Date End Date Lauren Saba APRN-HEALTH CARE MARKETING MANAGER [address] [place] [address] PCP - General 01/14/18 05/10/23 documented as of this encounter
--- OUTSIDE RECORDS SUMMARY | 2024-03-22 16:38 | XMS_ITS | Encounter Summary ---
Author Organization [facility] Health Address [address] [facility] [place] [address] Care Team Providers Care Back Maker Name Role Phone Lauren Saba LISETTE-SANITOR Primary Care Provider Reason for Visit * Reason Comments Refill Request Encounter Details Date Type Department Care Team (Late Contact Info) Description 07/12/2020 Refill [facility] [address] [place] [phone] Markus Cabral MD [address] [place] [address] Refill Request Social History Tobacco Use Types [...] (Late Contact Info) Description 04/04/2024 8:30 AM RECRUITING AND SELECTION CONSULTANT Office Visit [facility] [address] [place] [phone] Marlys Zaragoza MD [address] [facility] 3L [place] [address] 09/03/2024 9:00 AM CDT Office Visit [facility] [address] [facility], [place] [phone] Melissa Crook APRN-SANITOR [address] [place] [phone] documented as of this encounter Visit Diagnoses [...] movements documented in this encounter Care Teams Back Maker Relationship Specialty Start Date End Date Lauren Saba APRN-SANITOR [address] [place] [address] PCP - General 01/14/18 05/10/23 documented as of this encounter
--- OUTSIDE RECORDS SUMMARY | 2024-03-22 16:38 | XMS_ITS | Encounter Summary ---
Author Organization [facility] Health Address [address] [place] [address] Care Team Providers Care Slater Apprentice Name Role Phone Lauren Saba Jose Eduardo KNOX-CANVAS GOODS SUPERVISOR Primary Care Provider Reason for Visit * Reason Comments Establish Care bladder pain Encounter Details Date Type Department Care Team (Late st Contact Info) Description 01/12/2021 2:45 PM CDT Office Visit [facility] Urology [facility] [facility], [place] [address] Cheng Cotter MD Urinary urgency (Primary Dx); Neurogenic bladder Social History Tobacco Use Types Packs/Day Years Used Date Smoking Tobacco: Never Smokeless Tobacco: Never Tobacco Cessation:Counseling Given: No Alcohol Use Standard Drinks/Week Comments Yes 1 (1 standard drink = 0.6 oz pure alcohol) socially- once- twice a monthjeffry Sex and Gender Information Value Date Recorded [...] Sign Reading Time Taken Comments Blood Pressure 111/77 01/12/2021 1:27 PM CDT Pulse 82 01/12/2021 1:27 PM CDT Temperature 37 ??C (98.6 ??F) 01/12/2021 1:27 PM CDT Respiratory Rate - - Oxygen Saturation 99% 01/12/2021 1:27 PM CDT Inhaled Oxygen Concentration - - Weight 65.3 kg (144 lb) 01/12/2021 1:27 PM CDT Height 165.1 cm (5' 5 ) 01/12/2021 1:27 PM CDT Body Mass Index 23.96 01/12/2021 1:27 PM CDT documented in this encounter Patient Instructions * Patient Instructions* Tate Gant MD - 01/12/2021 2:29 PM CDT Today we discussed your bladder overactivity We will try myrbetriq which can take up to 2-3 months to take effect. Their is a chance you end up with urinary retention and need to go to an emergency room or catheterize so if you develop inability to void please let us know. Please return in 2-3 months to see how you are doing. documented in this encounter Progress Notes * Tate Gant MD - 01/12/2021 3:01 PM CDT [facility] Division of Urologic Surgery Cheng Cotter MD Date of Visit: 01/12/2021 Patient Name: Meredith Frost Medical Record: [id number] : 1980 Age: [age] year old Sex: [...] Her cystoscopy was normal at that time.We discussed starting medications and risk of retention which she opted not to do and plan was to follow up in 1 year. She returns today to discuss this again. She reports her symptoms have not changed. Denies other issues. States she got abilify today and isunsure why she is on this medication. Normally presents with care-life skills instructor which she is not here with today. She states that otherwise she is doing well. Denies episodes of hematuria or UTI. Denies urinary retention and does not catheterize at home. She was interested in trying a medication as her symptoms are persisting and therefore returned to clinic sooner for this discussion. Review of Systems Constitutional: Negative for fatigue, weight loss, fevers, chills, anorexia. Respiratory: Negative for shortness of breath, acute cough, asthma, wheezing Cardiovascular: Negative for chest pain, cyanosis Gastrointestinal: Negative for nausea, vomiting, hemetemesis, hematochezia, abdominal pain, constipation, diarrhea Genitourinary: OAB, UUI Negative for dysuria, hematuria Skin: Negative for rash Hematologic/lymphatic: Negative for easy bruising Neurological: Negative for headaches, seizures Past Medical History: Past Medical History: Diagnosis Date ??? Asthma ??? Migraines ??? MS (multiple sclerosis) ??? Seizures Past Surgical History: Past Surgical History: Procedure Laterality Date ??? [place] CHEMODENERV MUSC MIGRAINE 07/18/2017 ??? [place] CHEMODENERV MUSC MIGRAINE 10/17/2017 ??? [place] CHEMODENERV MUSC MIGRAINE 01/14/2018 ??? [place] CHEMODENERV MUSC MIGRAINE 04/15/2018 ??? [place] CHEMODENERV MUSC MIGRAINE 07/22/2018 ??? [place] CHEMODENERV MUSC MIGRAINE 10/21/2018 ??? [place] CHEMODENERV MUSC MIGRAINE 10/13/2019 ??? [place] CHEMODENERV MUSC MIGRAINE 01/12/2020 ??? [place] CHEMODENERV MUSC MIGRAINE 04/19/2020 ??? [place] CHEMODENERV MUSC MIGRAINE 07/21/2020 ??? [place] CHEMODENERV MUSC MIGRAINE 11/01/2020 Family History: Family History Problem Relation Name [...] Social History: Social History Occupational History ??? Not on file Tobacco [...] Comment: Daily ??? Sexual activity: Not Currently Current medications: Current Outpatient Medications on File Prior to Visit Medication Sig Dispense Refill ??? ABILIFY MAINTENA 300 MG injection Inject 300 (three hundred) mg into muscle every 28 days Reasons: Unspecified Psychosis. Behavioral Disturbances in Dementia 1 Each 4 ??? albuterol HFA (PROVENTIL;VENTOLIN;PROAIR) 108 (90 BASE) MCG/ACT inhaler Inhale 2 Puffs by mouthevery 6 hours ??? ALPRAZolam (XANAX) 0.5 MG tablet Take one Tab 30 min before MRI. May repeat once. Shoudl bring ride home back, (Patient not taking: Reported on 01/06/2021) 2 tablet 0 ??? baclofen (LIORESAL) 10 MG tablet TAKE 1 TABLET BY MOUTH TWICE DAILY. MAY CAUSE DROWSINESS (Patient taking differently: Take 10 mg by mouth 2 times daily as needed ) 60 tablet 5 ??? benzoyl peroxide (BENZAC) 10 % wash Wash face and body with once daily 148 mL 5 ??? budesonide-formoterol (SYMBICORT) 160-4.5 MCG/ACT inhaler INHALE 2 PUFFS BY MOUTH TWICE DAILY ??? clindamycin (CLEOCIN) 300 MG capsule Take 300 mg by mouth 3 times daily (Patient not taking: Reported on 01/06/2021) ??? erythromycin (ERYDERM) 2 % solution Apply 1-2 times daily to entire face 60 mL 11 ??? escitalopram (LEXAPRO) 20 MG tablet TAKE 1 TABLET BY MOUTH EVERY DAY 90 tablet 1 ??? fluticasone propionate (FLONASE) 50 MCG/ACT nasal spray [place] 1 [place] into the nose ??? ibuprofen (MOTRIN) 800 MG tablet Take 1 tablet by mouth 2 times daily as needed For headache. 60 tablet 5 ??? lacosamide (VIMPAT) 100 MG tablet Take 1 (one) tablet by mouth 2 times daily 180 tablet 3 ??? Ocrelizumab (OCREVUS IV) 600 mg by Intravenous route Reasons: every 6 months ??? onabotulinumtoxin A (BOTOX) 100 units injection Inject 200 (two hundred) Units into muscle Every 90 days Reasons: Migraine Headache 2 Each 3 ??? predniSONE (DELTASONE) 10 MG tablet Take 10 mg by mouth once daily ??? [] predniSONE (DELTASONE) 5 MG tablet Take 15 mg by mouth once daily ??? tretinoin (RETIN-A) 0.05 % cream Apply a pea-sized amount to entire face QHS. 30 day supply. 45g 5 ??? zonisamide (ZONEGRAN) 100 MG capsule Take 5 (five) capsules by mouth at bedtime 150 capsule 6 Current Facility-Administered Medications on File Prior to Visit Medication Dose Route Frequency Provider Last Rate Last Admin ??? ARIPiprazole ER (Lata Maintena) prefilled syringe 300 mg 300 mg Intramuscular q30 days Venkata Glez MD 300 mg at 01/12/21 1024 Allergies: No Known Allergies Physical Examination: BP 111/77 Pulse 82 Temp 98.6 ??F (37 ??C) (Temporal) Ht 5' 5 (1.651 m) Wt 144 lb (65.3 kg) SpO2 99% BMI 23.96 kg/m?? Body mass index is 23.96 kg/m??. General: NAD Eyes: conjunctiva clear ENT: MMM, oropharynx clear Lungs: No increased respiratory effort Heart: regular rate and rhythm Abdomen: soft, non-distended :Deferred Extremities: No edema, moves all four extremities Neuro: awake, alert Imaging: UDS (08/27/2020) Noninvasive Uroflow: Comments: not performed, [...] hypersensitivity in the settingof MS Recommendations - Discussed options for treatment including medications (myrbetriq, anticholinergics), botox, PTNS.Discussed trying medications first and in particular myrbetriq. Stressed that these medications could cause relaxation to the bladder to the point of urinary retention and needing to catheterize. She reports understanding this risk. - Start myrbetriq 50mg qd - RTC in 2-3 months for evaluation of symptoms - Instructed to call should she develop retention Tate Gant MD 01/12/2021 3:01 PM Associated attestation - Cheng Cotter MD - 01/12/2021 4:44 PM CDT Pt seen/examined. Pt with ngb and associated urgency due to MS. Agree with resident documentation. Pt well known to this clinic, had uds with poor contractility as well as overactivity. We discussed meds previously, but she declined due to concern for possible retention. Now is interested in starting them. Again reminded her of risk of retention. Will start myrbetriq 50 mg daily, can f/u with me in 2 months. Side effects of medication explained. Cheng Cotter MD documented in this encounter Plan of Treatment Upcoming Encounters Date Type Department Care Team (Late st Contact Info) Description 04/04/2024 8:30 AM PERSONNEL QUALITY ASSURANCE AUDITOR Office Visit [facility] - Dermatology [address] [place] [address], [place] [phone] Marlys Zaragoza MD [address] [place] [address] [address] [place] [phone] 09/03/2024 9:00 AM CDT Office Visit [facility] - Neurology [address] [place] [address], [place] [phone] Melissa Crook APRN-CANVAS GOODS SUPERVISOR [address] [place] [address] documented as of this encounter Visit Diagnoses Diagnosis Urinary urgency- Primary Urgency of urination Neurogenic bladder Neurogenic bladder, NOS documented in this encounter Care Teams Slater Apprentice Relationship Specialty Start Date End Date Lauren Saba TAPE RECORDING MACHINE OPERATOR-CANVAS GOODS SUPERVISOR [address] [place] [phone] PCP - General 01/14/18 05/10/23 documented as of this encounter
--- OUTSIDE RECORDS SUMMARY | 2024-03-22 16:38 | XMS_ITS | Encounter Summary ---
Author Organization [facility] Health Address [address] [facility] [place] [address] Care Team Providers Care Senior Front End Developer Name Role Phone Lauren Saba LISETTE-COIN MACHINE SERVICE REPAIRER Primary Care Provider Reason for Referral * Radiology Services (Routine) - Closed Specialty Diagnoses / Procedures Referred By Contac t Referred To Contact Ultrasound Diagnoses Neurogenic bladder Procedures US RETROPERITONEAL COMPLETE Cheng Cotetr MD [address] [place], [place] [id number] [place] [address] [address] [place] [address] Referral ID Status Reason Start Date Expiration Date Visits Re quested Visits Authorized [id number] Closed 08/17/2021 08/17/2022 1 1 Reason for Visit * Reason Comments Establish Care urodynamics to evalu ate bladder Encounter Details Date Type Department Care Team (Latest Contact Info) Description 08/27/2020 9:00 AM CDT Procedure visit [facility] [address] [facility] [place] [address] Cheng Cotter MD Neurogenic bladder ; Urinary urgency; Nocturnal enuresis Social History Tobacco Use Types Packs/Day Years [...] Sign Reading Time Taken Comments Blood Pressure 118/77 08/27/2020 9:10 AM CDT Pulse 91 08/27/2020 9:10 AM CDT Temperature 36.8 ??C (98.3 ??F) 08/27/2020 9:10 AM CD T Respiratory Rate - - Oxygen Saturation 100% 08/27/2020 9:10 AM CDT Inhaled Oxygen Concentration - - Weight 61.3 kg (135 lb 3.2 oz) 08/27/2020 9:10 A M CDT Height 165.1 cm (5' 5 ) 08/27/2020 9:10 AM CDT Body Mass Index 22.5 08/27/2020 9:10 AM CDT documented in this encounter Patient Instructions * Patient Instructions* Cheng Cotter MD - 08/27/2020 10:43 AM CDT Follow up with Dr. Cotter in one year after renal ultrasound and blood testing. documented in this encounter Progress Notes * Cheng Cotter MD - 08/27/2020 11:07 AM CDT Discussed uds finding with patient and caregiver. Pt's UDS is not concerning for findings that would put the upper tracts at risk. I discussed addition of anticholinergics/myrbetriq as an option for her overactive sx component, but I am concerned that she would go into retention with this. Pt elects for no meds at this time. Should follow up in one year with renal u/s and bmp for her NGB to ensure she is not developing upper tract issues. 10 min spent in visit reviewing EMR,counseling patient and documentation of visit (time not associated with performance and documentation of procedure). Cheng Cotter MD documented in this encounter Procedure Notes * Cheng Cotter MD - 08/27/2020 10:56 AM CDTAssociated Order(s): PROC URODYNAMICS Procedure(s): CO CYSTOMETROGRAM W/SKILLS INSTRUCTOR; CO ANAL/URINARY MUSCLE STUDY Pre-Procedure Diagnose(s): Urinary urgency; Nocturnal enuresis; Neurogenic bladder Urodynamic Results Indication for Procedure: MS, assess for bladder safety. Pt with urgency/frequency/enuresis Noninvasive Uroflow: Comments: not performed, [...] poor emptying, + hypersensitivity Plan: see note Cheng Cotter MD documented in this encounter Plan of Treatment Upcoming Encounters Date Type Department Care Team (Late st Contact Info) Description 04/04/2024 8:30 AM PAPER TESTING SUPERVISOR Office Visit [facility] - Dermatology [address] [place] [address], [place] [phone] Marlys Zaragoza MD [address] [place] [address] [address] [place] [phone] 09/03/2024 9:00 AM CDT Office Visit [facility] - Neurology [address] [place] [address], [place] [phone] Melissa Crook, PARTS FACILITATOR-COIN MACHINE SERVICE REPAIRER [address] [place] [phone] documented as of this encounter Procedures Procedure Name Priority Date/Time Associated Diagnosis Comments CO ANAL/URINARY MUSCLE STUDY Routine 08/27/2020 10:56 AM CDT Urinary urgency Nocturnal enuresis Neurogenic bladder CO CYSTOMETROGRAM W/SKILLS INSTRUCTOR Routine 10:56 AM CDT Urinary urgency Nocturnal enuresis Neurogenic bladder documented in this encounter Results * US RETROPERITONEAL COMPLETE (09/03/2020 10:45 AM CDT) Anatomical Region Laterality Modality Abdomen Ultrasound 09/03/2020 10:5 4 AM CDT Impressions 09/03/2020 11:52 AM CDT IMPRESSION: Normal renal size. No evidence of nephrolithiasis, hydronephrosis, or solid renal mass. Dictated by Duncan Flores MD (executive assistant to president). I, Dr. GILDA BROCK M.D. have personally reviewed and interpreted this examination/study. This report was electronically signed by GILDA BROCK M.D. ??on 09/03/2020 11:52 AM . Narrative [...] The urinary bladder is decompressed. Procedure Note Gilda Brock MD - 09/03/2020 EXAMINATION: Complete retroperitoneal sonogram [...] renal mass. Dictated by Duncan Flores MD (executive assistant to president). I, Dr. GILDA BROCK M.D. have personally reviewed and interpreted this examination/study. This report was electronically signed by GILDA BROCK M.D. on09/03/2020 11:52 AM . Cheng Cotter MD US ORDERABLES * CO CYSTOMETROGRAM W/SKILLS INSTRUCTOR, CO ANAL/URINARY MUSCLE STUDY (08/27/2020 10:56 AM CDT) Narrative Cheng Cotter MD - 08/27/2020 10:56 AM CDT Cheng oCtter MD ? 08/27/2020 11:13 AM Urodynamic Results [...] poor emptying, + hypersensitivity Plan: see note Cheng Cotter MD Cheng Cotter MD PROCEDURE/MINOR WHYTE RGICAL ORDERABLES documented in this encounter Visit Diagnoses Diagnosis Neurogenic bladder- Primary Neurogenic bladder, NOS Urinary urgency Urgency of urination Nocturnal enuresis Neurogenic bladder Neurogenic bladder, NOS documented in this encounter Care Teams Senior Front End Developer Relationship Specialty Start Date End Date Lauren Saba, PARTS FACILITATOR-COIN MACHINE SERVICE REPAIRER [address] [place] [address] PCP - General 01/14/18 05/10/23 documented as of this encounter
--- OUTSIDE RECORDS SUMMARY | 2024-03-22 16:38 | XMS_ITS | Encounter Summary ---
Author Organization [facility] Health Address [address] [facility] [address] [place] [address] Care Team Providers Care Lpn Care Manager Name Role Phone Lauren Saba LISETTE-UNIT ASSEMBLER Primary Care Provider Reason for Visit * Reason Comments Seizure Encounter Details Date Type Department Care Team (Late st Contact Info) Description 02/23/2021 3:00 PM ASTRONOMY TEACHER Office Visit [facility] Neurology [address] [place] [address] Markus Cabral MD [address] [place] [phone] MS (multiple sclerosis) (HCC) (Primary Dx); Seizures (HCC) Social History Tobacco Use Types [...] Sign Reading Time Taken Comments Blood Pressure 126/73 02/23/2021 3:03 PM ASTRONOMY TEACHER Pulse 86 02/23/2021 3:03 PM ASTRONOMY TEACHER Temperature 36.3 ??C (97.3 ??F) 02/23/2021 3:03 PM CS T Respiratory Rate - - Oxygen Saturation 99% 02/23/2021 3:03 PM ASTRONOMY TEACHER Inhaled Oxygen Concentration - - Weight 67.4 kg (148 lb 9.6 oz) 02/23/2021 3:03 P M ASTRONOMY TEACHER Height 165.1 cm (5' 5 ) 02/23/2021 3:03 PM ASTRONOMY TEACHER Body Mass Index 24.73 02/23/2021 3:03 PM ASTRONOMY TEACHER documented in this encounter Progress Notes * Markus Cabral MD - 02/23/2021 3:26 PM CST [facility] Markus Cabral MD Date: 02/23/2021 Referring Physician: Mckayla Haywood MD [facility] [place] [phone] Chief Complaint: Chief Complaint Patient presents with ??? Seizure HPI: Ms. Meredith Frost is a 40 [...] disabled at baseline from her neurocognitive status. Also has history of epilepsy for which she is on zonisamide, and has been stable for several years.However she has had at least 2 breakthrough seizures in the last 6 months. She was started on Vimpat 100 mg twice a day after the first breakthrough seizure is in addition, and last month suffered another seizure witnessed by her cabinet maker, Regla. She described, MEREDITH, looking dazed, not responding and verbalizing, and right side not moving and confused. She called EMS and by the time EMS came, she had a generalized convulsion. She was admitted to [facility], where she was observed. Repeat MRI again did not show any concern for a new focal process, EEG showed left frontotemporal epileptiform discharges. Vimpat dose was increased and subsequently she was discharged. Of note the patient has been using marijuana, excess coffee, alcohol. She is also had recurrent UTIs. Shewas seen today for follow-up after recent hospitalization. Due to insurance constraints she is currently again on Vimpat 100 mg twice a day. She was told they cannot give her additional pills, unclear about the reason. She has been without any new seizures in the interim. REVIEW OF SYSTEMS: Constitutional: no fever, night sweats, or unintentional weight loss ENT: No runny nose, ear pain, sore throat, or mouth ulcers Cardiovascular: No Irregular heartbeat, racing heart, chest pains, swelling of feet or legs Respiratory: no cough, wheezing, or dyspnea GI: No vomiting, diarrhea or Constipation : Urgency musculoskeletal: No Joint pain, swelling of joints [...] (PROVENTIL;VENTOLIN;PROAIR) 108 (90 BASE) MCG/ACT inhaler ??? baclofen (LIORESAL) 10 MG tablet ??? benzoyl peroxide (BENZAC) 10 % wash ??? budesonide-formoterol (SYMBICORT) 160-4.5 MCG/ACT inhaler ??? erythromycin (ERYDERM) 2 % solution ??? escitalopram (LEXAPRO) 20 MG tablet ??? fluticasone propionate (FLONASE) 50 MCG/ACT nasal spray ??? ibuprofen (MOTRIN) 800 MG tablet ??? lacosamide (VIMPAT) 200 MG tablet ??? mirabegron ER 24hr (MYRBETRIQ) 50 MG tablet ??? Ocrelizumab (OCREVUS IV) ??? onabotulinumtoxin A (BOTOX) 100 units injection ??? tretinoin (RETIN-A) 0.05 % cream ??? zonisamide (ZONEGRAN) 100 MG capsule Current Facility-Administered Medications Medication ??? ARIPiprazole ER (Abilify Maintena) prefilled syringe 300 mg GENERAL PHYSICAL EXAM: Constitutional: BP 126/73 Pulse 86 Temp 97.3 ??F (36.3 ??C) (Oral) Ht 5' 5 (1.651 m) Wt 148 lb 9.6oz (67.4 kg) SpO2 99% BMI 24.73 kg/m2 Neuro Exam: Mental Status Awake alert oriented. Able to provide reasonable history. No language deficits noted ?? Visual huber are full No gaze palsy. Or ANIA Face appears symmetric No dysarthria ?? Muscle power in both upper lower extremities is 5/5 Muscle stretch reflexes are brisk throughout Clumsy finger and foot taps Rapid alternate movements of the hands are clumsy Able to walk independently without assist, she has wide-based gait. She has difficulty with tandem. Assessment: Encounter Diagnosis Name Primary? Seizures Recommendation: Ms. Meredith Frost is a 40 year old female seen for follow up regarding multiple sclerosis. She is clinically and radiologically stable on ocrelizumab from MS standpoint. However seems to having at least 3 breakthrough seizures in the last 6 months. Lacosamide was added, and increase to 200 mg twice a day after the most recent hospitalization. I think, marijuana use, excess coffee, and alcohol use all might have contributed to her breakthrough seizure. Will refill lacosamide 200 mgtwice a day. If she has any breakthrough seizure despite these 2, antiepileptic drugs, will need epilepsy evaluation. I do not see any concern for ongoing chronic CHRONOMETER ADJUSTER infection in the setting of immun osuppression, but if she develops any new symptoms or recurrent seizures, a lumbar puncture may be considered. Plan Continue ocrelizumab 600 mg IV every 6 months as scheduled Continue zonisamide 500 mg daily. Increase lacosamide to 200 mg twice a day. New prescription with 200 mg pill provided (instead of 2 tablets of 100 mg pills that was denied by insurance). Bring MRIs on a CD from [facility] from the last hospitalization for review. Follow-up in 3 months Signature: Markus Cabral MD Machine Greaser of Neurology Neuroimmunology & [facility] Coding Rationale New or est? Established Patient Total time spent on date of encounter: 45 minutes Highest problem complexity: 1 acute or chronic illness or injury that poses a threat to life or bodily function Suggested code: [id number] ONOMY TEACHER documented in this encounter Plan of Treatment Upcoming Encounters Date Type Department Care Team (Late st Contact Info) Description 04/04/2024 8:30 AM ASTRONOMY TEACHER Office Visit [facility] - Dermatology [address] [place] [address], [place] [phone] Marlys Zaragoza MD [address] [place] [address] [address] [place] [phone] 09/03/2024 9:00 AM CDT Office Visit [facility] - Neurology [address] [place] [address], [place] [phone] Melissa Crook APRN-UNIT ASSEMBLER [address] [place] [phone] documented as of this encounter Visit Diagnoses Diagnosis MS (multiple sclerosis) (HCC)- Primary Multiple sclerosis Seizures (HCC) Other convulsions documented in this encounter Care Teams Lpn Care Manager Relationship Specialty Start Date End Date Luaren Saba APRN-UNIT ASSEMBLER [address] [place] [phone] PCP - General 01/14/18 05/10/23 documented as of this encounter
--- OUTSIDE RECORDS SUMMARY | 2024-03-22 16:38 | XMS_ITS | Encounter Summary ---
Author Organization [facility] Health Address [address] [facility] [place] [address] Care Team Providers Care Vault Worker Name Role Phone WandyLauren APRN-REAL ESTATE ASSOCIATE Primary Care Provider Reason for Visit * Oncology Prior Authorization (Routine) - Closed Specialty Diagnoses / Procedures Referred By Contac t Referred To Contact Diagnoses MS (multiple sclerosis) (HCC) Deja Godinez, PharmD [address] [place] [address] [facility] [address] [place] [address] Referral ID Status Reason Start Date Expiration Date Visits Re quested Visits Authorized [id number] Closed 11/10/2019 11/09/2020 1 1 Encounter Details Date Type Department Care Team (Latest Contact Info) Description 05/17/2020 9:00 AM [employer]SULTANT Procedure visit [facility] [employer] [address] [place] [address] MS (multiple sclerosis) (HCC) Social History Tobacco Use Types Packs/Day Years Used Date Smoking Tobacco: Never Smokeless Tobacco: Never Tobacco Cessation:Counseling Given: No Alcohol Use Standard Drinks/Week Comments Yes 4 [...] Sign Reading Time Taken Comments Blood Pressure 120/76 05/17/2020 8:57 AM [employer] CONSULTANT Pulse 111 05/17/2020 8:57 AM [employer] CONSULTANT Temperature 36.4 ??C (97.5 ??F) 05/17/2020 8:57 AM CS T Respiratory Rate 16 05/17/2020 8:57 AM [employer] CONSULTANT Oxygen Saturation 99% 05/17/2020 8:57 AM [employer] CONSULTANT Inhaled Oxygen Concentration - - Weight 60.4 kg (133 lb 3.2 oz) 05/17/2020 8:57 A M [employer]SULT[employer] Height 162.6 cm (5' 4 ) 05/17/2020 8:57 AM [employer] CONSULTANT Body Mass Index 22.86 05/17/2020 8:57 AM [employer] CONSULTANT documented in this encounter Plan of Treatment Upcoming Encounters Date Type Department Care Team (Late st Contact Info) Description 04/04/2024 8:30 AM [employer] CONSULTANT Office Visit [facility] - Dermatology [address] [place] [address], [place] [phone] Marlys Zaragoza MD [address] [place] [address] [place] [phone] 09/03/2024 9:00 AM CDT Office Visit [facility] - Neurology [address] [place] [phone] Melissa Crook, LISETTE-REAL ESTATE ASSOCIATE [address] [place] [phone] documented as of this encounter Visit Diagnoses Diagnosis MS (multiple sclerosis) (HCC)- Primary Multiple sclerosis documented in this encounter Administered Medications Inactive Administered Medications - up to 3 most recent administrations Medication Order MAR Action Action Date Dose Rate Site acetaminophen (TYLENOL) tablet 650 mg 650 mg, Oral, ONCE, 1 dose, On Sun05/17/20 at 0915, Maximum allowable Acetaminophen amount = 4 Grams (4000 mg) / 24 hours. Administer pre-medications 30-60 minutes prior to ocrelizumab. $ Given 05/17/2020 9:18 AM [employer] CONSULTANT 650 mg diphenhydrAMINE (BENADRYL) capsule 50 mg 50 mg, Oral, ONCE, 1 dose, On Sun05/17/20 at 0915, Use IV if patient not tolerating PO Administer pre-medications 30-60 minutes prior to ocrelizumab. $ Given 05/17/2020 9:18 AM [employer] CONSULTANT 50 mg methylPREDNISolone sod succ (SOLU-Medrol) 250 mg in 0.9% NaCl IV 50 mL IVPB bolus 250 mg, at 100 mL/hr, Intravenous, ONCE, 1 dose, On Sun05/17/20 at 0915 $ New Bag/Syringe 05/17/2020 9:18 AM [employer] CONSULTANT 250 mg 100 mL/hr ocrelizumab (OCREVUS) 600 mg in 0.9% NaCl IV 520 mL infusion 600 mg, Intravenous, CONTINUOUS, Starting on Sun05/17/20 at 0945, Until Sun05/17/20 at 1435, Start at 40 mL/hr and increase by 40 mL/hr every 30 minutes to a maximum of 200 mL/hr. Observe patient for 1 hour post infusion Administer via dedicated line with a 0.2 or 0.22 micron in-line filter $ New Bag/Syringe 05/17/2020 10:15 AM [employer] CONSULTANT 600 mg documented in this encounter Care Teams Vault Worker Relationship Specialty Start Date End Date Lauren Saba APRN-NAIF [address] [place] [phone] PCP - General 01/14/18 05/10/23 documented as of this encounter
--- OUTSIDE RECORDS SUMMARY | 2024-03-22 16:38 | XMS_ITS | Encounter Summary ---
Author Organization [facility] Health Address [address] [facility] [place] [address] Care Team Providers Care Poker Prop Player Name Role Phone Lauren Saba Jose Eduardo KNOX-INTERNET MARKETER Primary Care Provider Encounter Details Date Type Department Care Team (Latest Contact Info) Description 03/17/2020 11:15 AM [employer] - 03/17/2020 11:59 PM [employer] WORK[employer] Hospital Encounter [facility] OP DRAW STATION [address] [place] [phone] Discharge Disposition: Home or Self Care [...] have Coronavirus / COVID-19? No / Unsure 03/17/2020 11:12 AM [employer] WORK[employer] documented as of this encounter Medications at Time of Discharge Medication Sig Dispensed Refills Start Date End Date ABILIFY MAINTENA 300 MG injectionIndications: Unspecified Psychosis. Behavioral Disturbances in Dementia Inject 1.5 mL into muscle every 28 days Reasons: Unspecified Psychosis. Behavioral Disturbances in Dementia 1 Each 11 07/21/2019 06/04/2020 albuterol HFA (PROVENTIL;VENTOLIN;P ROAIR) 108 (90 BASE) MCG/ACT inhaler Inhale 2 Puffs by mouth every 6 hours 03/05/2014 04/11/2021 Albuterol Sulfate (PROAIR RESPICLICK) 108 (90 Base) MCG/ACT 2020 ALPRAZolam (XANAX) 0.5 MG tablet Take 0.5 mg by mouth 03/08/20202020 baclofen (LIORESAL) 10 MG tabletIndications:MS (multiple sclerosis) ([facility]),Vitamin D deficiency,High risk medication use,Nonintractable epilepsy without status epilepticus, unspecified epilepsy type ([facility]),Mild cognitive impairment,Intractabl e chronic 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 without status migrainosus,Spasticit y Take 1 tablet by mouth 2 times daily May cause drowsiness. 60 tablet 5 02/10/2020 07/12/2020 benzoyl peroxide (BENZAC) 10 % washIndications:Acne vulgaris Wash face and body with once daily 148 mL 5 02/02/2020 04/11/2021 budesonide-formoterol (SYMBICORT) 160-4.5 MCG/ACT inhaler INHALE 2 PUFFS BY MOUTH TWICE DAILY 04/11/2021 butalbital-acetaminop hen-caffeine (FIORICET) 50-325-40 MG tabletIndications:Non intractable epilepsy without status epilepticus, unspecified epilepsy type ([facility]) TAKE 1 TABLET BY MOUTH EVERY 4 HOURS NEEDED FOR HEADACHE(NO ADITIONAL TYLENOL) 30 tablet 3 04/24/2019 05/07/2020 Ynrmbfzwze-JYTY-Mwwhy ine 50-325-40 MG butalbital-acetamino phen-caffeine 50 mg-325 mg-40 mg capsule Take 1 capsule every 4 hours by oral route. 06/24/2019 11/01/2020 clindamycin (CLEOCIN) 300 MG capsule Take 300 mg by mouth 3 times daily 12/05/2019 02/14/2021 erythromycin (ERYDERM) 2 % solutionIndications:A cne vulgaris Apply 1-2 times daily to entire face 60 mL 11 02/02/2020 04/11/2021 escitalopram (LEXAPRO) 20 MG tabletIndications:René or depressive disorder, remission status unspecified, unspecified whether recurrent Take 1 tablet by mouth once daily 90 tablet 3 05/20/2019 03/29/2020 fluticasone propionate (FLONASE) 50 MCG/ACT nasal spray Uneeda 1 Uneeda into the nose 03/05/2014 04/11/2021 halobetasol (ULTRAVATE) 0.05 % creamIndications:Rash and other nonspecific skin eruption Apply to rash on lower legs up to twice daily. 30 days supply. 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 60 tablet 5 10/31/2019 04/11/2021 Ocrelizumab (OCREVUS IV)Indications:every 6 months 600 mg by Intravenous route Reasons: every 6 months 04/11/2021 onabotulinumtoxin A (BOTOX) 100 units injectionIndications: Migraine Inject 200 Units into muscle Every 90 days Reasons: Migraine Headache 2 Each 3 01/12/2020 04/19/2020 SUMAtriptan (IMITREX) 50 MG tablet sumatriptan 50 mg tablet 10/29/2020 tretinoin (RETIN-A) 0.05 % creamIndications:Acne vulgaris Apply a pea-sized amount to entire face QHS. 30 day supply. 45 g 5 02/02/2020 10/29/2020 zonisamide (ZONEGRAN) 100 MG capsuleIndications:No nintractable epilepsy without status epilepticus, unspecified epilepsy type (HCC),Medication monitoring encounter Take 5 capsules by mouth at bedtime 150 capsule 5 12/29/2019 06/11/2020 documented as of this encounter Plan of Treatment Upcoming Encounters Date Type Department Care Team (Late st Contact Info) Description 04/04/2024 8:30 AM [employer] WORK[employer] Office Visit [facility] - Dermatology [address] [place] [address], [place] [phone] Marlys Zaragoza MD [address] [place] [address] [address] [place] [phone] 09/03/2024 9:00 AM CDT Office Visit [facility] - Neurology [address] [facility] [place] [phone] MackMelissa schuster, INFANTRY SENIOR SERGEANT-INTERNET MARKETER [address] [place] [phone] documented as of this encounter Procedures Procedure Name Priority Date/Time Associated Diagnosis Comments CBC W AUTO DIFFERENTIAL Routine 03/17/2020 11:37 AM [employer] WORK[employer] Multiple sclerosis (HCC) COMPREHENSIVE METABOLIC PANEL Routine 03/17/2020 11:37 AM [employer] WORK[employer] Multiple sclerosis (HCC) documented in this encounter Results * (ABNORMAL) COMPREHENSIVE METABOLIC PANEL (03/17/2020 11:37 AM [employer] WORK[employer]) BUN 17 7 - 26 mg/dL 03/17/2020 12:44 PM [facility] Creatinine 0.7 0.6 - 1.2 mg/dL 03/17/2020 12:44 PM [facility] Sodium 142 136 - 145 mmol/L 03/17/2020 12:44 PM [facility] Potassium 4.3 3.5 - 4.5 mmol/L 03/17/2020 12:44 PM [facility] Chloride 107 98 - 107 mmol/L 03/17/2020 12:44 PM [facility] CO2 23 22 - 29 mmol/L 03/17/2020 12:44 PM [facility] Glucose 98 70 - 115 mg/dL 03/17/2020 12:44 PM [facility] Calcium 9.1 8.4 - 10.2 mg/dL 03/17/2020 12:44 PM [facility] Protein Total 6.6 6.0 - 8.3 g/dL 03/17/2020 12:44 PM [facility] Albumin 4.0 3.4 - 5.0 g/dL 03/17/2020 12:44 PM [facility] Bilirubin Total 0.1(L) 0.2 - 1.2 mg/dL 03/17/2020 12:44 PM [facility] Alkaline Phosphatase 62 40 - 150 Units/L 03/17/2020 12:44 PM [facility] ALT 15 0 - 55 Units/L 03/17/2020 12:44 PM [facility] AST 11 5 - 34 Units/L 03/17/2020 12:44 PM [facility] Anion Gap 16 8 - 18 03/17/2020 12:44 PM [facility] BUN/Creatinine Ratio 24(H) 7 - 23 03/17/2020 12:44 PM [facility] Osmolality Calculated 296 270 - 300 mOsm/kg 03/17/2020 12:44 PM [facility] Albumin/Globulin Ratio 1.5 1.1 - 2.3 03/17/2020 12:44 PM [facility] eGFR >60 >60 mL/min/1.7 3 m2 03/17/2020 12:44 PM [facility] Blood BLOOD SPECIMEN / Unknown Lab Venipuncture / Unknown 03/17/2020 11:37 AM [employer] WORK[employer] 03/17/2020 12:11 PM [facility] Markus Cabral MD LAB - CHEMISTRY ORDERABLES [facility] [address] [place] [phone] [phone] * (ABNORMAL) CBC WITH DIFFERENTIAL (03/17/2020 11:37 AM [employer] WORK[employer]) WBC 10.6(H) 3.5 - 10.5 10? 3 /uL 03/17/2020 12:19 PM [facility] RBC 4.77 3.90 - 5.00 10? 6 /uL 03/17/2020 12:19 PM [facility] Hemoglobin 13.3 12.0 - 15.5 g/dL 03/17/2020 12:19 PM [facility] Hematocrit 41.1 35.0 - 45.0 % 03/17/2020 12:19 PM [facility] MCV 86.2 81.0 - 97.0 fL 03/17/2020 12:19 PM [facility] MCH 27.9(L) 28.0 - 34.0 pg 03/17/2020 12:19 PM [facility] MCHC 32.4 32.0 - 36.0 g/dL 03/17/2020 12:19 PM [facility] Platelet Count 336 150 - 400 10? 3 /uL 03/17/2020 12:19 PM [facility] RDW-SD 40.7 36.0 - 50.0 fL 03/17/2020 12:19 PM [facility] RDW-CV 13.2 11.2 - 14.8 % 03/17/2020 12:19 PM [facility] MPV 9.4 9.3 - 12.8 fL 03/17/2020 12:19 PM [facility] nRBC Absolute 0.00 0 10? 3 /uL 03/17/2020 12:19 PM [facility] nRBC Auto 0.0 0 /100 WBC 03/17/2020 12:19 PM [facility] Neutrophils % 67.8 35.0 - 70.0 % 03/17/2020 12:19 PM [facility] Lymphocytes % 14.5(L) 19.7 - 55.1 % 03/17/2020 12:19 PM [facility] Monocytes % 7.9 3.0 - 15.0 % 03/17/2020 12:19 PM [facility] Eosinophils % 8.4(H) 0.0 - 6.0 % 03/17/2020 12:19 PM [facility] Basophil % 0.9 0.0 - 1.5 % 03/17/2020 12:19 PM [facility] Neutrophils Absolute 7.2(H) 1.6 - 7.0 10? 3 /uL 03/17/2020 12:19 PM [facility] Lymphocyte Absolute 1.5 0.8 - 2.9 10? 3 /uL 03/17/2020 12:19 PM [facility] Monocytes Absolute 0.84(H) 0.14 - 0.66 10? 3 /uL 03/17/2020 12:19 PM [facility] Eosinophils Absolute 0.89(H) 0.00 - 0.45 10? 3 /uL 03/17/2020 12:19 PM [facility] Basophils Absolute 0.10(H) 0.00 - 0.06 10? 3 /uL 03/17/2020 12:19 PM [facility] Immature Granulocytes % 0.5 0.0 - 1.0 % 03/17/2020 12:19 PM [employer] [facility] Blood BLOOD SPECIMEN / Unknown Lab Venipuncture / Unknown 03/17/2020 11:37 AM [employer] 03/17/2020 12:11 PM [employer] Markus Cabral MD LAB - HEMATOLOGY ORDERABLES Performing Organization Address [facility] Co de Phone Number [address] [phone] [phone] documented in this encounter Visit Diagnoses Diagnosis Multiple sclerosis (HCC) Multiple sclerosis documented in this encounter Care Teams Poker Prop Player Relationship Specialty Start Date End Date Lauren Saba APRN-INTERNET MARKETER [address] [place] [phone] PCP - General 01/14/18 05/10/23 documented as of this encounter
--- OUTSIDE RECORDS SUMMARY | 2024-03-22 16:38 | XMS_ITS | Encounter Summary ---
Author Organization [facility] Health Address [address] [place] [address] Care Team Providers Care Collar Worker Name Role Phone [place], Lauren JOSHI Primary Care Provider Reason for Visit * Reason Comments Follow-up Seizures Encounter Details Date Type Department Care Team (Late st Contact Info) Description 07/01/2020 11:00 AM CDT Office Visit [facility] Neurology [address] [facility], [place] [address] Alesia Vazquez APRN-CNP [address] [place] [address] [place] [address] Nonintractable epilepsy without status epilepticus, unspecified epilepsy type (HCC) (Primary Dx); Medication monitoring encounter; Mild cognitive impairment; MS (multiple sclerosis) (HCC); Intractable chronic 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 without status migrainosus; Neurogenic bladder Social History Tobacco Use Types [...] Sign Reading Time Taken Comments Blood Pressure 107/68 07/01/2020 11:11 AM CDT Pulse 90 07/01/2020 11:11 AM CDT Temperature 36.3 ??C (97.3 ??F) 07/01/2020 11:11 AM C DT Respiratory Rate - - Oxygen Saturation - - Inhaled Oxygen Concentration - - Weight 64 kg (141 lb) 07/01/2020 11:11 AM CDT Height 165.1 cm (5' 5 ) 07/01/2020 11:11 AM CDT Body Mass Index 23.46 07/01/2020 11:11 AM CDT documented in this encounter Patient Instructions * Patient Instructions* Alesia Vazquez APRN-CNP - 07/01/2020 11:52 AM CDT - Continue Zonisamide 500 mg at night for seizures. - Follow up in 6 months. documented in this encounter Progress Notes * Alesia Vazquez APRN-CNP - 07/01/2020 11:25 AM CDT Epilepsy Clinic Note PCP ADI Botello Date of Encounter: 07/01/2020 Chief Complaint: seizures Accompanied with: piano case and bench assembler- Regla Information obtained from: chart review, Regla and patient AGE OF ONSET ~24 yrs SEMIOLOGY - Aura lightheaded - Ictus Generalized tonic clonic, LOC, foaming in mouth, lasting for 1-2 min - Post-ictus Sleepy, fatigue, confusion SEIZURE CONTROL Seizure frequency Was controlled for 10+years till 04/15/2019 Seizure free interval 1+ yr Date of last seizure 04/15/2019 Aggravating factor stress PRE-VISIT MEDICATION Name Dose Frequency Total/day Level Start Zonisamide 100 mg 0-5 500 mg 14.2 (04/2019) COMPLIANCE good TREATMENT HISTORY Name Allergy/Side Effects/Ineffectiveness Topamax Memory problems Keppra 500 mg BID EE04/16/2019 at [facility] This is a routine 20-channel digital EEG. ??The background consists of fairly well-formed 8-10 Hz alpha activity with some intermixed low voltage faster activity. ??Initially, there is some amount of theta range activity with voltage attenuation of the background activity probably representing drowsiness. ??The record is symmetrical with no focal or paroxysmal features. ??No activation procedure performed. IMPRESSION: ??Normal awake and drowsy record. IMAGING: Brain MRI 09/2019 IMPRESSION:?? Multiple intracranial white matter lesions compatible with multiple sclerosis. No new T2 lesions and no new enhancing lesions to suggest active demyelination. Moderate parenchymal volume loss, advanced for the patient's stated age. CLASSIFICATION: Generalized seizures Data Review/Other Information CBC: Recent Labs Component Name 03/17/20 1137 09/01/19 1128 05/14/19 0950 WBC 10.6* 8.9 7.4 HGB 13.3 13.5 13.5 PLTCOUNT 336 311 365 BMP: Recent Labs Component Name 03/17/20 1137 09/01/19 1128 05/14/19 0950 05/22/18 1040 NA 142 142 - 140 CO2 23 23 25 24 CREATININE 0.7 0.8 0.70 0.7 LFT: Recent Labs Component Name 03/17/20 1137 09/01/19 1128 05/14/19 0950 AST 11 13 13 ALT 15 13 10 VITAMIN D: Recent Labs Component Name 05/22/18 1040 03/09/17 1445 11/28/16 1333 [id number] 43.5 41 48 HPI: Meredith Frost is a 39 year old female is here for follow up visit for Seizures. She has PMH of MS, depression, and migraines. Has a h/o seizures for years, was controlled, last seizure was on 04/15/19 triggered by stress, prior to that sz was 10 yrs ago. Patient was on Zonisamide 400 mg QHS for sz management and when she wasseen at OSH on 04/15/19 for a breakthrough seizure Keppra 500 mg BID was added. At last visit in 04/2019, Zonisamide was increased from 400 to 500 QHS and Keppra was weaned off. Pt reports doing well, tolerating dose and denies any seizure since 04/15/2019. Patient lives at home with roommate and receiving support from [facility] who helps her to take do appointments, groceries, medications pick upetc. Patient sees Dr. Haywood in clinic for Migraine management and receiving Botox injections and sees Dr. Nieto in clinic for management for MS. Epilepsy ROS- Complex febrile seizure Hx no Head trauma Hx no SEAL MIXING OPERATOR Infection Hx no Family Epilepsy Hx no Handedness rt Memory stable Mood stable Gingival Hypertrophy no Dentist Appointment yes Ambulatory Difficulty no Numbness yes Hair changes no History of kidney stones no Driving NO, Pt was referred to Dr. Acuña for driving eval that she reported failed Living situation Lives in a home with 3 roommates and has support from [facility],(Regla) visits her 3 times a week and helps with organizing/scheudling visits, groceries etc. Work no Swimming unattended no Deep tub bath no Denies any new neurological problems today. ROS: General Negative except per HPI Eyes Negative except per HPI ENT Negative except per HPI Pulmonary Negative except per HPI Cardiac Negative except per HPI GI Neurogenic bladder Negative except per HPI Neurologic Per HPI Psychiatric Negative except per HPI Skeletal Negative except per HPI Endocrine Negative except per HPI Infectious Negative except per HPI Allergies: No Known Allergies Home Medications: Current Outpatient Medications Medication Sig ??? ABILIFY MAINTENA 300 MG injection Inject 300 (three hundred) mg into muscle every 28 days Reasons: Unspecified Psychosis. Behavioral Disturbances in Dementia ??? albuterol HFA (PROVENTIL;VENTOLIN;PROAIR) 108 (90 BASE) MCG/ACT inhaler Inhale 2 Puffs by mouthevery 6 hours ??? ALPRAZolam (XANAX) 0.5 MG tablet Take 0.5 mg by mouth ??? baclofen (LIORESAL) 10 MG tablet Take 1 tablet by mouth 2 times daily May cause drowsiness. ??? benzoyl peroxide (BENZAC) 10 % wash Wash face and body with once daily ??? budesonide-formoterol (SYMBICORT) 160-4.5 MCG/ACT inhaler INHALE 2 PUFFS BY MOUTH TWICE DAILY ??? clindamycin (CLEOCIN) 300 MG capsule TK 1 C PO Q 6 H FOR 10 DAYS ??? erythromycin (ERYDERM) 2 % solution Apply 1-2 times daily to entire face ??? escitalopram (LEXAPRO) 20 MG tablet Take 1 (one) tablet by mouth once daily ??? fluticasone propionate (FLONASE) 50 MCG/ACT nasal spray [place] 1 [place] into the nose ??? ibuprofen (MOTRIN) 800 MG tablet Take 1 tablet by mouth 2 times daily as needed For headache. ??? ketoconazole (NIZORAL) 2 % cream Apply 1 Dose to affected area once daily ??? Ocrelizumab (OCREVUS IV) 600 mg by Intravenous route Reasons: every 6 months ??? onabotulinumtoxin A (BOTOX) 100 units injection Inject 200 (two hundred) Units into muscle Every 90 days Reasons: Migraine Headache ??? SUMAtriptan (IMITREX) 50 MG tablet sumatriptan 50 mg tablet ??? tretinoin (RETIN-A) 0.05 % cream Apply a pea-sized amount to entire face QHS. 30 day supply. ??? zonisamide (ZONEGRAN) 100 MG capsule TAKE 5 CAPSULES BY MOUTH AT BEDTIME No current facility-administered medications for this visit. PMH: Past Medical History: Diagnosis Date ??? Asthma Family History: Family History Problem Relation Name Age of Onset ??? None Known Mother ??? None Known Father ??? None Known Sister ??? None [...] Sexual Activity ??? Alcohol use: Yes Alcohol/week: 4.0 - 7.0 standard drinks Types: 1 - 2 Glasses of wine, 1 - 2 Cans of beer, 1 Shots of liquor, 1 - 2 Standard drinks or equivalent per week Comment: socially- once- twice a month ??? Drug use: Yes Types: Marijuana Comment: Daily ??? Sexual activity: Not Currently Other Topics Concern ??? Not on file Social History Narrative ??? Not on file Social Determinants of Health Financial Resource Strain: ??? Difficulty of Paying Living Expenses: Food Insecurity: ??? Worried About Running Out of Food in the Last Year: ??? Ran Out of Food in the Last Year: Transportation Needs: ??? Lack of Transportation (Medical): ??? Lack of Transportation (Non-Medical): Physical Activity: ??? Days of Exercise per Week: ??? Minutes of Exercise per Session: Stress: ??? Feeling of Stress : Social Connections: ??? Frequency of Communication with Friends and Family: ??? Frequency of Social Gatherings with Friends and Family: ??? Attends Hoahaoism Services: ??? Active Member of Clubs or Organizations: ??? Attends Club or Organization Meetings: ??? Marital Status: Intimate Partner Violence: ??? Fear of Current or Ex-Partner: ??? Emotionally Abused: ??? Physically Abused: ??? Sexually Abused: control Not sexually active Alcohol usage Socially, once every 1-2 weeks Marijuana usage Yes, daily Physical Exam: Vitals: 07/01/20 1111 BP: 107/68 Pulse: 90 Temp: 97.3 ??F (36.3 ??C) Weight: 141 lb (64 kg) Height: 5' 5 (1.651 m) General : Plesant HEENT: Head normocephalic and atraumatic Extremities: No cyanosis or edema noted Cortical Function: MS: Awake, Alert, Follows Commands Oriented to Person, Place and Time Language: Fluent, Coherent, Repetition Intact VF Intact to confrontation test Neglect No visual neglect, No tactile neglect Cranial Nerves: Pupils 3 mm BRTL, Full EOM, No ptosis or nystagmus Facial sensation intact bilaterally to LT; No facial palsy Hearing intact to finger rub bilaterally Motor: Abnormal Movements: None Bulk: Normal Tone: Normal Strength: Appropriate for Age RUE 5/5 LUE 5/5 RLE 5/5 LLE 5/5 DTR: Bi Tri BR Pat Ach R 2 2 2 2+ 2 L 2 2 2 2+ 2 Sensory: Intact to light touch, temperature and vibration b/l Cerebellar: FNF intact bilaterally Normal Romberg's Gait: Normal stride and stance Assessment: Epilepsy Plan: - Patient is doing well and seizure free since 04/15/19, on Zonisamide to 500 mg QHS. Continue same,refilled. - Continue to follow up with Dr. Haywood for migraine and Dr. Nieto for MS as advised. I told the patient in clear terms that she should check with her state's DMV regarding the regulations for driving with seizures. In general, we recommend 6 months of seizure freedom and approval by the state before resuming driving. I also recommended that the patient avoid deep tub baths, operating open machinery, climbing to high places, swimming alone, using open fire or using hot objects during the same time frame that she is not driving. I told the in clear terms regarding importance of compliance. I told the patient that all medications can have effect on the fetus, and that all pregnancies mustbe anticipated, and vitamins and folate supplement must be taken during . In addition, I informed that oral contraceptive pills may fail, and alternate method of contraception should be used under supervision of a powertrain calibration engineer. If oral contraception must be used, a higher dosage may be required under supervision of a powertrain calibration engineer. She was instructed to inform the Neurology Clinic in the event of any planned or unplanned . I spent 30 minutes in the evaluation of the patient of which more than 50 % of the time was spent in counseling and co-ordination of care. Clinic Follow up in 6 months for seizures. Alesia Vazquez, MSN, FINISHED GOODS PLANNER-C Department of Neurology documented in this encounter Plan of Treatment Upcoming Encounters Date Type Department Care Team (Late st Contact Info) Description 04/04/2024 8:30 AM ORTHOTIC TECHNICIAN Office Visit [facility] - Dermatology [facility] [place] [address] Marlys Zaragoza MD [address] [place] [address] [place] [phone] 09/03/2024 9:00 AM CDT Office Visit [facility] - Neurology [address] [facility], [place] [phone] Melissa Crook APRN-NAIF [address] [place] [phone] documented as of this encounter Visit Diagnoses Diagnosis Nonintractable epilepsy without status epilepticus, unspecified epilepsy type (HCC)- Primary Medication monitoring encounter Encounter for therapeutic drug monitoring Mild cognitive impairment Mild cognitive impairment, so stated MS (multiple sclerosis) (HCC) Multiple sclerosis Intractable chronic 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
--- OUTSIDE RECORDS SUMMARY | 2024-03-22 16:38 | XMS_ITS | Encounter Summary ---
Author Organization [facility] Address [address] [place] [address] Care Team Providers Care Cross Tie Turner Name Role Phone Lauren Saba Jose Eduardo KNOX-WIRE BOUND BOX MACHINE OPERATOR Primary Care Provider Reason for Referral * Radiology Services (Routine) - Closed Specialty Diagnoses / Procedures Referred By Contac t Referred To Contact Ultrasound Diagnoses Neurogenic bladder Procedures US RETROPERITONEAL COMPLETE Cheng Cotter MD [address] [place] [address] [facility] [address] [place] [address] Referral ID Status Reason Start Date Expiration Date Visits Re quested Visits Authorized [id number] Closed 08/17/2021 08/17/2022 1 1 Reason for Visit * Radiology Services (Routine) - Closed Specialty Diagnoses / Procedures Referred By Contac t Referred To Contact Ultrasound Diagnoses Neurogenic bladder Procedures US RETROPERITONEAL COMPLETE Cheng Cotter MD [address] [place] [address] [facility] [address] [place] [address] Referral ID Status Reason Start Date Expiration Date Visits Re quested Visits Authorized [id number] Closed 08/17/2021 08/17/2022 1 1 Encounter Details Date Type Department Care Team (Latest Contact Info) Description 09/03/2020 9:55 AM CDT - 09/03/2020 11:59 PM CDT Hospital Encounter [facility] [id number] [place] [address] Cheng Cotter MD Discharge Disposition: Home or Self Care Social [...] AM CDT documented as of this encounter Medications at Time of Discharge Medication Sig Dispensed Refills Start Date End Date ABILIFY MAINTENA 300 MG injectionIndications: Unspecified Psychosis. Behavioral Disturbances in Dementia Inject 300 (three hundred) mg into muscle every 28 days Reasons: Unspecified Psychosis. Behavioral Disturbances in Dementia 1 Each 4 06/04/2020 10/07/2020 albuterol HFA (PROVENTIL;VENTOLIN;P ROAIR) 108 (90 BASE) MCG/ACT inhaler Inhale 2 Puffs by mouth every 6 hours 03/05/2014 04/11/2021 ALPRAZolam (XANAX) 0.5 MG tablet Take 0.5 mg by mouth 03/08/20202020 baclofen (LIORESAL) 10 MG tabletIndications:MS (multiple sclerosis) ([facility]),Vitamin D deficiency,High risk medication use,Nonintractable epilepsy without status epilepticus, unspecified epilepsy type (HCC),Mild cognitive impairment,Intractabl e chronic 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 without status migrainosus,Spasticit y TAKE 1 TABLET BY MOUTH TWICE DAILY. MAY CAUSE DROWSINESS 60 tablet 5 07/12/2020 02/21/2021 benzoyl peroxide (BENZAC) 10 % washIndications:Acne vulgaris Wash face and body with once daily 148 mL 5 02/02/2020 04/11/2021 budesonide-formoterol (SYMBICORT) 160-4.5 MCG/ACT inhaler INHALE 2 PUFFS BY MOUTH TWICE DAILY 04/11/2021 Mfhpdxzsrf-[id number]-Wxqlh ine 50-325-40 MG butalbital-acetamino phen-caffeine 50 mg-325 mg-40 mg capsule Take 1 capsule every 4 hours by oral route. 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 60 tablet 5 10/31/2019 04/11/2021 ketoconazole (NIZORAL) 2 % cream Apply 1 Dose to affected area once daily 10/29/2020 Ocrelizumab (OCREVUS IV)Indications:every 6 months 600 mg by Intravenous route Reasons: every 6 months 04/11/2021 onabotulinumtoxin A (BOTOX) 100 units injectionIndications: Migraine Inject 200 (two hundred) Units into muscle Every 90 days Reasons: Migraine Headache 2 Each 3 07/21/2020 11/01/2020 SUMAtriptan (IMITREX) 50 MG tablet sumatriptan 50 mg tablet 10/29/2020 tretinoin (RETIN-A) 0.05 % creamIndications:Acne vulgaris Apply a pea-sized amount to entire face QHS. 30 day supply. 45 g 5 02/02/2020 10/29/2020 zonisamide (ZONEGRAN) 100 MG capsuleIndications:No nintractable epilepsy without status epilepticus, unspecified epilepsy type (HCC) Take 5 (five) capsules by mouth at bedtime 150 capsule 6 07/01/2020 04/11/2021 documented as of this encounter Plan of Treatment Upcoming Encounters Date Type Department Care Team (Late st Contact Info) Description 04/04/2024 8:30 AM BEAM RACKER Office Visit [facility] - Dermatology [address] [place] [address], [place] [phone] Marlys Zaragoza MD [address] [place] [address] [address] [place] [phone] 09/03/2024 9:00 AM CDT Office Visit [facility] - Neurology [address] [place] [address], [place] [phone] Melissa Crook APRN-WIRE BOUND BOX MACHINE OPERATOR [address] [place] [phone] documented as of this encounter Procedures Procedure Name Priority Date/Time Associated Diagnosis Comments US RETROPERITONEAL COMPLETE Routine 09/03/2020 10:45 AM CDT Neurogenic bladder documented in this encounter Results * US RETROPERITONEAL COMPLETE (09/03/2020 10:45 AM CDT) Anatomical Region Laterality Modality Abdomen Ultrasound 09/03/2020 10:5 4 AM CDT Impressions 09/03/2020 11:52 AM CDT IMPRESSION: Normal renal size. No evidence of nephrolithiasis, hydronephrosis, or solid renal mass. Dictated by Duncan Flores MD (residential program worker). I, Dr. GILDA BROCK M.D. have personally [...] renal mass. Dictated by Duncan Flores MD (residential program worker). I, Dr. GILDA BROCK M.D. have personally reviewed and interpreted this examination/study. This report was electronically signed by GILDA BROCK M.D. on09/03/2020 11:52 AM . Cheng Cotter MD ORDERABLES documented in this encounter Visit Diagnoses Diagnosis Neurogenic bladder Neurogenic bladder, NOS documented in this encounter Care Teams Cross Tie Turner Relationship Specialty Start Date End Date Lauren Saba, GILL NET STRINGER-WIRE BOUND BOX MACHINE OPERATOR [address] [place] [address] PCP - General 01/14/18 05/10/23 documented as of this encounter
--- OUTSIDE RECORDS SUMMARY | 2024-03-22 16:38 | XMS_ITS | Encounter Summary ---
Author Organization [facility] Health Address [address] [facility] [place] [address] Care Team Providers Care Advertisement Distributor Name Role Phone Lauren Saba Jose Eduardo KNOX-CLUB CONCIERGE Primary Care Provider Reason for Visit * Reason Onset Date Comments MEDICATION REFILL 02/10/2020 Encounter Details Date Type Department Care Team (Late st Contact Info) Description 02/10/2020 Refill [facility] Neurology [address] [facility], [place] [phone] Markus Cabral MD [address] [place] [address] MEDICATION REFILL Social History Tobacco Use Types [...] * Telephone Encounter - Santana Delatorre - 02/10/2020 11:25 AM CST Refill Request Meredith Frost CRISTELA: 09/01/2019 NOV scheduled: 03/17/2020 LRF: 08/04/2019 Qty Disp: 60 # of refills: 5 Allergies: No Known Allergies Pended Medication Order: Requested Prescriptions Pending Prescriptions Disp Refills ??? baclofen (LIORESAL) 10 MG tablet 60 tablet 5 Sig: Take 1 tablet by mouth 2 times daily May cause drowsiness. TH ACTUARY documented in this encounter Plan of Treatment Upcoming Encounters Date Type Department Care Team (Late st Contact Info) Description 04/04/2024 8:30 AM HEALTH ACTUARY Office Visit [facility] - Dermatology [address] [place] [address], [place] [phone] Marlys Zaragoza MD [address] [place] [address] [address] [place] [phone] 09/03/2024 9:00 AM CDT Office Visit [facility] - Neurology [address] [place] [address], [place] [phone] Melissa Crook APRN-CLUB CONCIERGE [address] [place] [phone] documented as of this encounter Visit Diagnoses [...] movements documented in this encounter Care Teams Advertisement Distributor Relationship Specialty Start Date End Date Lauren Saba FACILITIES OPERATIONS TECHNICIAN-CLUB CONCIERGE [address] [place] [address] PCP - General 01/14/18 05/10/23 documented as of this encounter
--- OUTSIDE RECORDS SUMMARY | 2024-03-22 16:38 | XMS_ITS | Encounter Summary ---
Author Organization [facility] Health Address [address] [facility] [place] [address] Care Team Providers Care Pathologist Assistant Name Role Phone Lauren Saba Jose Eduardo KNOX-BACKEND TESTER Primary Care Provider Reason for Visit * Radiology Services (Routine) - Closed Specialty Diagnoses / Procedures Referred By Nicole shipley Referred To Contact MRI Diagnoses MS (multiple sclerosis) (HCC) Procedures MRI BRAIN WWO CONTRAST Markus Cabral MD [address] [place] [id number] [facility] Mri [address] [place] [address] Referral ID Status Reason Start Date Expiration Date Visits Re quested Visits Authorized [id number] Closed 11/02/2020 05/01/2021 1 1 Encounter Details Date Type Department Care Team (Latest Contact Info) Description 11/08/2020 6:12 AM CDT Hospital Encounter [facility] MRI [address] [place] [phone] Markus Cabral MD [address] [place] [address] [phone] Discharge Disposition: Home or Self Care Social [...] Sig Dispensed Refills Start Date End Date ABIWILLAFArelis MAINTENA 300 MG injectionIndications: Unspecified Psychosis. Behavioral Disturbances in Dementia Inject 300 (three hundred) mg into muscle every 28 days Reasons: Unspecified Psychosis. Behavioral Disturbances in Dementia 1 Each 4 10/07/2020 04/11/2021 albuterol HFA (PROVENTIL;VENTOLIN;P ROAIR) 108 (90 BASE) MCG/ACT inhaler Inhale 2 Puffs by mouth every 6 hours 03/05/2014 04/11/2021 ALPRAZolam (XANAX) 0.5 MG tabletIndications:Yuri laury, unspecified type Take one Tab 30 min before MRI. May repeat once. Shoudl bring ride home back, 2 tablet 10/20/2020 02/14/2021 baclofen (LIORESAL) 10 MG tabletIndications:MS (multiple sclerosis) ([facility]),Vitamin D deficiency,High risk medication use,Nonintractable epilepsy without status epilepticus, unspecified epilepsy type ([facility]),Mild cognitive impairment,Intractabl e chronic 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 without status migrainosus,Spasticit y TAKE 1 TABLET BY MOUTH TWICE DAILY. MAY CAUSE DROWSINESS 60 tablet 5 07/12/2020 02/21/2021 benzoyl peroxide (BENZAC) 10 % washIndications:Acne vulgaris Wash face and body with once daily 148 mL 5 02/02/2020 04/11/2021 budesonide-formoterol (SYMBICORT) 160-4.5 MCG/ACT inhaler INHALE 2 PUFFS BY MOUTH TWICE DAILY 04/11/2021 clindamycin (CLEOCIN) 300 MG capsule Take 300 mg by mouth 3 times daily 12/05/2019 02/14/2021 erythromycin (ERYDERM) 2 % solutionIndications:A cne vulgaris Apply 1-2 times daily to entire face 60 mL 11 02/02/2020 04/11/2021 escitalopram (LEXAPRO) 20 MG tabletIndications:Dep ression, unspecified depression type Take 1 (one) tablet by mouth once daily 90 tablet 1 10/07/2020 12/26/2020 fluticasone propionate (FLONASE) 50 MCG/ACT nasal spray [place] 1 [place] into the nose 03/05/2014 04/11/2021 ibuprofen (MOTRIN) [...] days Reasons: Migraine Headache 2 Each 3 11/01/2020 02/13/2021 tretinoin (RETIN-A) 0.05 % creamIndications:Acne vulgaris Apply a pea-sized amount to entire face QHS. 30 day supply. 45 g 5 10/29/2020 04/11/2021 zonisamide (ZONEGRAN) 100 MG capsuleIndications:No nintractable epilepsy without status epilepticus, unspecified epilepsy type (HCC) Take 5 (five) capsules by mouth at bedtime 150 capsule 6 07/01/2020 04/11/2021 documented as of this encounter Plan of Treatment Upcoming Encounters Date Type Department Care Team (Late st Contact Info) Description 04/04/2024 8:30 AM RESOURCE MANAGER Office Visit [facility] - Dermatology [address] [place] [address], [place] [address] Marlys Zaragoza MD [address] [place] [address] [address] [place] [address] 09/03/2024 9:00 AM CDT Office Visit [facility] - Neurology [address] [facility], [place] [address] Ambreen Melissa, AIRCRAFT ARMAMENT MECHANIC-BACKEND TESTER [address] [place] [address] documented as of this encounter Procedures Procedure Name Priority Date/Time Associated Diagnosis Comments MRI BRAIN WWO CONTRAST Routine 11/08/2020 7:41 AM CDT MS (multiple sclerosis) (HCC) documented in this encounter Results * MRI BRAIN WWO CONTRAST (11/08/2020 7:41 AM CDT) Anatomical Region Laterality Modality Head Magnetic Resonan ce 11/08/2020 3:36 PM CDT Impressions 11/09/2020 1:20 PM CDT IMPRESSION: 1. Stable extensive white matter disease within the supratentorial brain due to involvement by multiple sclerosis. 2. Stable findings within the cervical spinal cord with multifocal extensive involvement by multiple sclerosis with T2 hyperintense lesions within the midline and posterior lateral borders of the cervical spinal cord bilaterally. Report dictated by Devan Delgado MD (resident programs assistant). I, Dr. MELVI MARINELLI have personally reviewed and interpreted this examination/study. This report was electronically signed by MELVI MARINELLI ??on 11/09/2020 1:20 PM . Narrative 11/09/2020 1:20 PM CDT EXAMINATION: Magnetic resonance imaging (MRI) of the brain without and with contrast MRI of the cervical spine without and with contrast HISTORY: G35: MS (multiple sclerosis) TECHNIQUE: MRI of the brain and C-spine was performed prior to and following the uneventful administration of 6 mL Gadavist intravenous gadolinium contrast according to demyelinating protocol. COMPARISON: MRI brain dated 09/25/2019 FINDINGS: Brain: No evidence of acute or chronic hemorrhage is identified. No evidence of acute cerebral infarction is seen. There is a chronic cerebral volume loss with associated ex vacuo ventricular dilatation. No mass effect or midline shift is seen. Multiple scattered and confluent periventricular white matter T2 FLAIR hyperintensities within cerebral hemispheres bilaterally as well as left cerebral peduncle left lateral midbrain with corresponding discrete T1 hypointensity are compatible with the given diagnosis of multiple sclerosis with no significant interval change. No enhancing lesions are identified. The corpus callosum is thin with the callososeptal margin demonstrating unchanged T2 hyperintensity. The posterior fossa, brainstem, and craniocervical junction appear normal. The visualized portions of the orbits, paranasal sinuses, and mastoids appear normal except for minimal mucosal thickening within right mastoid air cells without significant opacification. Normal flow voids are demonstrated in the carotid arteries and basilar artery. The calvarium appears normal. Cervical spine: There are patchy areas of T2 hyperintensity within the cervical spinal cord extensively which appear similar to the lesions visualized on the prior study from 07/15/2018. Some images are degraded by patient motion. The alignment is normal. Vertebral bodies are normal in height without evidence of compression fractures. Marrow signal intensity is normal. The craniocervical junction and visualized portions of the posterior fossa appear normal. The spinal cord appears normal. The intervertebral discs are normal in height. No central canal stenosis is seen. The facets appear normal. The uncovertebral joints appear normal. No neural foraminal stenosis is seen. No soft tissue abnormality is identified. Normal flow voids are identified in the vertebral arteries. Procedure Note Melvi Marinelli MD - 11/09/2020 EXAMINATION: Magnetic resonance imaging (MRI) of the brain without and with contrast MRI of the cervical spine without and with contrast HISTORY: G35: MS (multiple sclerosis) TECHNIQUE: MRI of the brain and C-spine was performed prior to and following the uneventful administration of 6 mL Gadavist intravenous gadolinium contrast according to demyelinating protocol. COMPARISON: MRI brain dated 09/25/2019 FINDINGS: Brain: No evidence of acute or chronic hemorrhage is identified. No evidence of acute cerebral infarction is seen. There is a chronic cerebral volumeloss with associated ex vacuo ventricular dilatation. No mass effect ormidline shift is seen. Multiple scattered and confluent periventricular white matter T2 FLAIR hyperintensities within cerebral hemispheres bilaterally as well as left cerebral peduncle left lateral midbrain with corresponding discrete T1 hypointensity are compatible with the given diagnosis of multiple sclerosis with no significant interval change. No enhancing lesions are identified. The corpus callosum is thin withthe callososeptal margin demonstrating unchanged T2 hyperintensity. The posterior fossa, brainstem, and craniocervical junction appear normal. The visualized portions of the orbits, paranasal sinuses, and mastoids appear normal except for minimal mucosal thickening within right mastoid air cells without significant opacification. Normal flow voids are demonstrated in the carotid arteries and basilar artery. The calvarium appears normal. Cervical spine: There are patchy areas of T2 hyperintensity within the cervical spinal cord extensively which appear similar to the lesions visualized on the prior study from 07/15/2018. Some images are degraded by patient motion. The alignment is normal. Vertebral bodies are normal in height without evidence of compression fractures. Marrow signal intensity is normal.The craniocervical junction and visualized portions of the posterior fossa appear normal. The spinal cord appears normal. The intervertebral discs are normal in height. No central canal stenosis is seen. The facets appear normal. The uncovertebral joints appearnormal. No neural foraminal stenosis is seen. No soft tissue abnormality is identified. Normal flow voids are identified in the vertebral arteries. IMPRESSION: 1. Stable extensive white matter disease within the supratentorial brain due to involvement by multiple sclerosis. 2. Stable findings within the cervical spinal cord with multifocal extensive involvement by multiple sclerosis with T2 hyperintense lesions within the midline and posterior lateral borders of the cervical spinal cord bilaterally. Report dictated by Devan Delgado MD (resident programs assistant). I, Dr. MELVI MARINELLI have personally reviewed and interpreted this examination/study. This report was electronically signed by MELVI MARINELLI on 11/09/2020 1:20 PM. Markus Cabral MD MR ORDERABLES documented in this encounter Visit Diagnoses Diagnosis MS (multiple sclerosis) (HCC) Multiple sclerosis documented in this encounter Administered Medications Inactive Administered Medications - up to 3 most recent administrations Medication Order MAR Action Action Date Dose Rate Site gadobutrol (Gadavist) injection Intravenous, CONTRAST ONCE, Starting on 11/08/20 at 0652, Until Sun11/09/20 at 0120 $ Given - Contrast 11/08/2020 7:21 AM CDT 6 mL documented in this encounter Care Teams Pathologist Assistant Relationship Specialty Start Date End Date Lauren Saba, AIRCRAFT ARMAMENT MECHANIC-BACKEND TESTER [address] [place] [phone] PCP - General 01/14/18 05/10/23 documented as of this encounter
--- OUTSIDE RECORDS SUMMARY | 2024-03-22 16:38 | XMS_ITS | Encounter Summary ---
Author Organization [facility] Health Address [address] [place] [address] Care Team Providers Care Yardage Control Clerk Name Role Phone Lauren Saba Jose Eduardo KNOX-UNDERWRITING SERVICE REPRESENTATIVE Primary Care Provider Encounter Details Date Type Department Care Team (Latest Contact Info) Description 10/20/2020 3:55 PM CDT - 10/20/2020 11:59 PM CDT Hospital Encounter [facility] [address] [place] [phone] Discharge Disposition: Home or Self Care Social [...] have Coronavirus / COVID-19? No / Unsure 10/20/2020 3:53 PM CDT documented as of this encounter Medications at Time of Discharge Medication Sig Dispensed Refills Start Date End Date GENNAFArelis MAINTENA 300 MG injectionIndications: Unspecified Psychosis. Behavioral [...] 30 min before MRI. May repeat once. Caitlinl bring ride home back, 2 tablet 10/20/2020 02/14/2021 ALPRAZolam (XANAX) 0.5 MG tablet Take 0.5 mg by mouth 03/08/20202020 baclofen (LIORESAL) 10 MG tabletIndications:MS (multiple sclerosis) ([facility]),Vitamin D deficiency,High risk medication use,Nonintractable epilepsy without status epilepticus, unspecified epilepsy type ([facility]),Mild cognitive impairment,Intractabl e chronic 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 without status migrainosus,Spasticit y TAKE 1 TABLET BY MOUTH TWICE DAILY. MAY CAUSE DROWSINESS 60 tablet 5 07/12/2020 02/21/2021 benzoyl peroxide (BENZAC) 10 % washIndications:Acne vulgaris Wash face and body with once daily 148 mL 5 02/02/2020 04/11/2021 budesonide-formoterol (SYMBICORT) 160-4.5 MCG/ACT inhaler INHALE 2 PUFFS BY MOUTH TWICE DAILY 04/11/2021 Ajbjaiwdnh-AUPS-Xubqi ine 50-325-40 MG butalbital-acetamino phen-caffeine 50 mg-325 [...] fluticasone propionate (FLONASE) 50 MCG/ACT nasal spray [place] 1 [place] into the nose 03/05/2014 04/11/2021 ibuprofen (MOTRIN) [...] st Contact Info) Description 04/04/2024 8:30 AM JOINT SEALER Office Visit [facility] - Dermatology [address] [place] [address], [place] [phone] Marlys Zaragoza MD [address] [place] [address] [address] [place] [phone] 09/03/2024 9:00 AM CDT Office Visit [facility] - Neurology [address] [place] [address], [place] [phone] Melissa Crook, ROPE RIDER-UNDERWRITING SERVICE REPRESENTATIVE [address] [place] [address] documented as of this encounter Procedures Procedure Name Priority Date/Time Associated Diagnosis Comments FLOW CYTOMETRY RITUXAN BLOOD Routine 10/20/2020 4:24 PM CDT High risk medications (not anticoagulants) long-term use CBC W AUTO DIFFERENTIAL Routine 10/20/2020 4:24 PM CDT MS (multiple sclerosis) (HCC) High risk medications (not anticoagulants) long-term use COMPREHENSIVE METABOLIC PANEL Routine 10/20/2020 4:24 PM CDT MS (multiple sclerosis) (HCC) High risk medications (not anticoagulants) long-term use IGM BLOOD Routine 10/20/2020 4:24 PM CDT High risk medications (not anticoagulants) long-term use IGG BLOOD Routine 10/20/2020 4:24 PM CDT High risk medications (not anticoagulants) long-term use IGA BLOOD Routine 10/20/2020 4:24 PM CDT High risk medications (not anticoagulants) long-term use documented in this encounter Results * FLOW CYTOMETRY RITUXAN BLOOD (10/20/2020 4:24 PM CDT) Reason for test High risk medications (not anticoagulants) long-term use V58.69 10/21/2020 2:38 PM CDT [facility] Client Specimen ID # [id number] 10/21/2020 2:38 PM CDT [facility] Number of Markers 7 10/21/2020 2:38 PM CDT [facility] Flow Cytometry Results Differential Result Comment WBC Count /uL 14,400 % Lymphocytes 7 Lymphocyte Count u/L 1,008 Cell Region A: Lymphocytes Surface Marker Results % Absolute Count (cells/uL) CD3 87 877 CD3+CD4+ 57 575 CD3+CD8+ 30 302 CD4:CD8 Ratio 1.90 CD19 0 0 CD20 0 0 CD45 100 1,008 CD56 12 121 10/21/2020 2:38 PM CDT [facility] Flow Cytometry Interpretation Testing is technical only and does not require an interpretation of results. 10/21/2020 2:38 PM CDT [facility] Reference Range Adult Normal Reference Range Adult (> 18 years) CD3 54-84 % CD4 33-63 % CD8 12-39 % CD19 5-19 % CD56 6-26 % CD4+CD45RA+ 30-50 % CD4+CD45RO+ 17-42 % CD19+CD27+ 7-48 % CD19+CD27+IgD+ 7-29 % CD19+CD27+IgD- 3-23 % CD19+WU01-HnL+ 29-93 % % 10/21/2020 2:38 PM CDT [facility] Disclaimer Test performed at [facility], [address] [place] [address], [facility]. This test was developed and its performance [...] perform high complexity clinical testing. By law [place], CD4 lymphocyte counts on patients with HIV infection must be reported by the physician to the [facility] authority. 10/21/2020 2:38 PM CDT [facility] Embedded Images 2:38 PM CDT [facility] Blood BLOOD SPECIMEN / Unknown Lab Venipuncture / Unknown 10/20/2020 4:24 PM CDT 10/20/2020 4:46 PM CDT Markus Cabral MD LAB - PATHOLOGY/CYTOLOGY ORDERABLES [facility] [address] [place] [address]. [place] [address], [facility] [phone] * IGG BLOOD (10/20/2020 4:24 PM CDT) IgG 812 767-1,590 mg/dL 10/20/2020 5:30 PM CDT [facility] Blood BLOOD SPECIMEN / Unknown Lab Venipuncture / Unknown 10/20/2020 4:24 PM CDT 10/20/2020 4:40 PM CDT Markus Cabral MD LAB - CHEMISTRY ORDERABLES [address] [address], [place] [phone] * IGA BLOOD (10/20/2020 4:24 PM CDT) IgA 84 61 - 356 mg/dL 10/20/2020 5:30 PM CDT [facility] Blood BLOOD SPECIMEN / Unknown Lab Venipuncture / Unknown 10/20/2020 4:24 PM CDT 10/20/2020 4:40 PM CDT Markus Cabral MD LAB - CHEMISTRY ORDERABLES Performing Organization Address City/[facility]/ZIP Co de Phone Number [address] [address], [place] [phone] * IGM BLOOD (10/20/2020 4:24 PM CDT) IgM 70 37 - 286 mg/dL 10/20/2020 5:30 PM CDT [facility] Blood BLOOD SPECIMEN / Unknown Lab Venipuncture / Unknown 10/20/2020 4:24 PM CDT 10/20/2020 4:40 PM CDT Markus Cabral MD LAB - CHEMISTRY ORDERABLES [address] [address], [place] [phone] * (ABNORMAL) COMPREHENSIVE METABOLIC PANEL (10/20/2020 4:24 PM [facility]) BUN 18 7 - 26 mg/dL 10/20/2020 5:10 PM [facility] Creatinine 0.66 0.56 - 0.96 mg/dL 10/20/2020 5:10 PM [facility] Sodium 140 136 - 145 mmol/L 10/20/2020 5:10 PM [facility] Potassium 4.0 3.5 - 4.5 mmol/L 10/20/2020 5:10 PM [facility] Chloride 108(H) 98 - 107 mmol/L 10/20/2020 5:10 PM [facility] CO2 25 22 - 29 mmol/L 10/20/2020 5:10 PM [facility] Glucose 91 70 - 115 mg/dL 10/20/2020 5:10 PM [facility] Calcium 10.0 8.4 - 10.2 mg/dL 10/20/2020 5:10 PM [facility] Protein Total 7.1 6.0 - 8.3 g/dL 10/20/2020 5:10 PM [facility] Albumin 4.0 3.4 - 5.0 g/dL 10/20/2020 5:10 PM [facility] Bilirubin Total 0.2 0.2 - 1.2 mg/dL 10/20/2020 5:10 PM [facility] Alkaline Phosphatase 76 40 - 150 U/L 10/20/2020 5:10 PM [facility] ALT 11 5 - 55 U/L 10/20/2020 5:10 PM [facility] AST 10 5 - 34 U/L 10/20/2020 5:10 PM [facility] Anion Gap 11 8 - 18 10/20/2020 5:10 PM [facility] BUN/Creatinine Ratio 27(H) 7 - 23 10/20/2020 5:10 PM [facility] Osmolality Calculated 291 270 - 300 mOsm/kg 10/20/2020 5:10 PM [facility] Albumin/Globulin Ratio 1.3 1.1 - 2.3 10/20/2020 5:10 PM [facility] eGFR by CKD-EPI >90 >=90 mL/min/1.7 3 m2 10/20/2020 5:10 PM [facility] Blood BLOOD SPECIMEN / Unknown Lab Venipuncture / Unknown 10/20/2020 4:24 PM CDT 10/20/2020 4:41 PM CDT Markus Cabral MD LAB - CHEMISTRY ORDERABLES [facility] [address] [place] [address], [facility] [phone] * (ABNORMAL) CBC WITH DIFFERENTIAL (10/20/2020 4:24 PM CDT) WBC 14.4(H) 3.5 - 10.5 10? 3 /uL 10/20/2020 4:47 PM [facility] RBC 4.52 3.80 - 5.20 10? 6 /uL 10/20/2020 4:47 PM [facility] Hemoglobin 11.2(L) 12.0 - 15.6 g/dL 10/20/2020 4:47 PM [facility] Hematocrit 36.8 35.0 - 45.0 % 10/20/2020 4:47 PM [facility] MCV 81.4 80.7 - 98.3 fL 10/20/2020 4:47 PM [facility] MCH 24.8(L) 26.7 - 34.0 pg 10/20/2020 4:47 PM [facility] MCHC 30.4(L) 30.8 - 35.9 g/dL 10/20/2020 4:47 PM [facility] Platelet Count 417(H) 150 - 400 10? 3 /uL 10/20/2020 4:47 PM [facility] RDW-SD 47.8 36.0 - 50.0 fL 10/20/2020 4:47 PM [facility] RDW-CV 16.0(H) 11.2 - 14.8 % 10/20/2020 4:47 PM [facility] MPV 9.2(L) 9.4 - 12.9 fL 10/20/2020 4:47 PM [facility] nRBC Absolute 0.00 0 10? 3 /uL 10/20/2020 4:47 PM [facility] nRBC Auto 0.0 0 /100 WBC 10/20/2020 4:47 PM [facility] Neutrophils % 77.1(H) 35.0 - 70.0 % 10/20/2020 4:47 PM [facility] Lymphocytes % 10.1(L) 20.0 - 43.0 % 10/20/2020 4:47 PM [facility] Monocytes % 7.4 5.0 - 13.0 % 10/20/2020 4:47 PM [facility] Eosinophils % 4.1 0.0 - 6.0 % 10/20/2020 4:47 PM [facility] Basophil % 0.8 0.0 - 2.0 % 10/20/2020 4:47 PM [facility] Neutrophils Absolute 11.1(H) 1.6 - 7.0 10? 3 /uL 10/20/2020 4:47 PM [facility] Lymphocyte Absolute 1.5 1.1 - 3.9 10? 3 /uL 10/20/2020 4:47 PM [facility] Monocytes Absolute 1.07 0.26 - 1.07 10? 3 /uL 10/20/2020 4:47 PM [facility] Eosinophils Absolute 0.59(H) 0.00 - 0.47 10? 3 /uL 10/20/2020 4:47 PM [facility] Basophils Absolute 0.12(H) 0.00 - 0.08 10? 3 /uL 10/20/2020 4:47 PM [facility] Immature Granulocytes % 0.5 0.0 - 1.0 % 10/20/2020 4:47 PM [facility] Immature Granulocytes Absolute 0.07 10/20/2020 4:47 PM [facility] Blood BLOOD SPECIMEN / Unknown Lab Venipuncture / Unknown 10/20/2020 4:24 PM CDT 10/20/2020 4:41 PM CDT Markus Cabral MD LAB - HEMATOLOGY ORDERABLES Performing Organization Address City/State/[facility] Co de Phone Number [facility] [address] [address], [facility] [phone] documented in this encounter Visit Diagnoses Diagnosis MS (multiple sclerosis) (HCC) Multiple sclerosis High risk medications (not anticoagulants) long-term use Encounter for long-term (current) use of other medications documented in this encounter Care Teams Yardage Control Clerk Relationship Specialty Start Date End Date Lauren Saba, ROPE RIDER-UNDERWRITING SERVICE REPRESENTATIVE [address] [place] [phone] PCP - General 01/14/18 05/10/23 documented as of this encounter
--- OUTSIDE RECORDS SUMMARY | 2024-03-22 16:38 | XMS_ITS | Encounter Summary ---
Author Organization [facility] Health Address [address] [facility] [place] [address] Care Team Providers Care Chemical Compounder Helper Name Role Phone Lauren Saba Jose Eduardo KNOX-BARTENDER MANAGER Primary Care Provider Reason for Visit * Reason Comments Yearly FBSC Hx Labial melan otic macule, benign melanocytic nevi, solar lentigines, Sk Encounter Details Date Type Department Care Team (Late st Contact Info) Description 02/02/2020 8:20 AM CARDIOPULMONARY TECHNOLOGIST Office Visit [facility] [address] [place] [address], [facility] [place] [phone] Marlys Zaragoza MD [address] [place] [address] [address] [place] [phone] Labial melanotic macule (Primary Dx); Multiple benign melanocytic nevi of upper and lower extremities and trunk; Solar lentiginosis; Seborrheic keratosis; Acne vulgaris; Rash and other nonspecific skin eruption Social History Tobacco Use Types Packs/Day Years [...] AM CDT documented as of this encounter Patient Instructions * Patient Instructions* Padmini Locke MD - 02/02/2020 8:51 AM CARDIOPULMONARY TECHNOLOGIST Start using halobetasol cream up to twice daily on the lower legs. Return to clinic in 3 months. Creams we like are CeraVe, Cetaphil. Your skin exam went well today. Have a great day! 1) Make sure you wear a Broad Spectrum sunscreen daily with at least SPF 30. This will help decrease the risk of skin cancer and other sun-related skin damage. SUNSCREENS UVA and UVB PROTECTION Sunlight consists of two types of light that can cause or worsen most skin problems: UVA (ultraviolet A) UVB (ultraviolet B) Brown spots Skin cancers Wrinkles Sunburn Aging Tanning Rosacea Less variation with seasons Strongest in summer All year round All day strong Peak hours 10am to [...] product Remember there is no safe UV light...so there is no such thing as a safe suntan. Apply sunscreen daily (even in winter and on cloudy days) and reapply every 2 to 4 hours depending on activity. Approximately one ounce (a shot glass) is necessary to adequately cover the entire body. Approximately one teaspoon is necessary to adequately cover the face IOPULMONARY TECHNOLOGIST documented in this encounter Progress Notes * Padmini Locke MD - 02/02/2020 8:38 AM CST Chief Complaint Patient presents with ??? Yearly FBSC Hx Labial melanotic macule, benign melanocytic nevi, solar lentigines, Sk HPI: Meredith Frost a 39 year old female presents for skin exam. 11/07/2018 At that visit, FBSE without concerns. Acne, continue erythromycin solution, benzoyl peroxide wash, tretinoin 0.05% cream nightly. Acne - Stable - A few rare small breakouts - A bit more dryness and peeling on the tretinoin 0.1% gel, would like to switch back to 0.05% cream - Current treatment regimen: - Benzoyl peroxide wash daily - Erythromycin solution daily - Tretinoin 0.1% gel FBSE - Wants to be checked all over - Has had several spots present for many years - Aside from above noted, none are changing, all are asymptomatic Personal history of skin cancer None No family history of melanoma Allergies and medications were reviewed and verified. Past medical history, social history and family history were reviewed. ROS: As per HPI above. Patient denies fevers, chills, cough, SOB. No other skin complaints. PE: No acute distress. Mood clear/affect appropriate. Alert and oriented. Mucous membranes moist. Sclera anicteric. Full body skin exam was conducted to include the scalp, face, lips, lids/conjunctiva, ears, neck, chest, abdomen, back, buttock, right and left hands and forearms, right and left leg and feet and wasnormal with the following exceptions: - Rare pink papule on face - Lower legs with two dull red annular plaques - Brown pigmented macule on L lower mucosal lip; unchanged compared to photo from May 2017 - Multiple 2-6 mm valentine brown macules and papules and skin colored papules on face, trunk and extremities - Multiple valentine to light brown macules on face, shoulders and arms - Many valentine to brown waxy/hyperkeratotic stuck on papules on trunk A/P: Meredith was seen today for yearly. Diagnoses and all orders for this visit: Acne vulgaris - stable, well controlled - Switch to tretinoin 0.05% cream given dryness on 0.1% gel - Continue BP 10% wash - Continue erythromycin 2% solution Orders - tretinoin (RETIN-A) 0.05 % cream; Apply a pea-sized amount to entire face QHS. 30 day supply. - benzoyl peroxide (BENZAC) 10 % wash; Wash face and body with once daily - erythromycin (ERYDERM) 2 % solution; Apply 1-2 times daily to entire face Lower extremity rash - GA vs resolving dermatitis - Counseled patient on possible diagnosis, natural course, and difficult to treat nature - Patient declines biopsy - Start halobetasol 0.05% cream up to BID - Re-eval in 3 months Orders - halobetasol (ULTRAVATE) 0.05 % cream; Apply to rash on lower legs up to twice daily. 30 days supply. Multiple benign melanocytic nevi of trunk and extremities, Labial melanotic macule - Benign, reassurance - Counseled on importance of daily sun protection (Broad spectrum, SPF >30), monthly self skin exams - Reviewed concerning signs for development of skin cancer - Sun screen hand out provided Solar lentigines - Benign, reassurance - Counseling as above - Extensive lesions associated with sun damage and increased risk of skin cancer Seborrheic keratoses - Benign, reassurance RTC in 3 months Patient seen and examined with Dr. Zaragoza. Padmini Locke MD Dermatology PGY-3 IOPULMONARY TECHNOLOGIST Associated attestation - Marlys Zaragoza MD - 02/02/2020 1:02 PM CARDIOPULMONARY TECHNOLOGIST Attending Physician's Note Resident's assessment and care plan reviewed; patient interviewed and examined. I agree with the history of present illness, physical exam, and assessment and plan as documented by the Resident todaywith the following annotations/corrections: History of present illness/Physical exam: 39 yo F here for follow up skin examination, acne and new rash on lower legs. She notes that her acne is improved but the tretinoin 0.1% is too irritating, would like to decrease strength. She notes a new asymptomatic rash on her lower legs. No other skin concerns today. I confirm/revise the differential diagnosis to be Meredith was seen today for yearly. Diagnoses and all orders for this visit: Labial melanotic macule - Continue to monitor Multiple benign melanocytic nevi of upper and lower extremities and trunk - Reassured of appearance on exam today - Continue sun protection Solar lentiginosis - Reassured of appearance on exam today - Continue sun protection Seborrheic keratosis - Reassured of appearance on exam today Acne vulgaris - tretinoin (RETIN-A) 0.05 % cream; Apply a pea-sized amount to entire face QHS. 30 day supply. - benzoyl peroxide (BENZAC) 10 % wash; Wash face and body with once daily - erythromycin (ERYDERM) 2 % solution; Apply 1-2 times daily to entire face Rash and other nonspecific skin eruption, favor GA vs. resolving nummular dermatitis - halobetasol (ULTRAVATE) 0.05 % cream; Apply to rash on lower legs up to twice daily. 30 days supply. Please see resident's note for detail. Marlys Zaragoza MD 02/02/2020 documented in this encounter Plan of Treatment Upcoming Encounters Date Type Department Care Team (Late st Contact Info) Description 04/04/2024 8:30 AM CARDIOPULMONARY TECHNOLOGIST Office Visit [facility] - Dermatology [address] [place] [address], [place] [address] Marlys Zaragoza MD [address] [place] [address] [address] [place] [address] 09/03/2024 9:00 AM CDT Office Visit [facility] - Neurology [address] [place] [address], [place] [address] Melissa Crook APRN-BARTENDER MANAGER [address] [place] [phone] documented as of this encounter Visit Diagnoses Diagnosis Labial melanotic macule- Primary Other dyschromia Multiple benign melanocytic nevi of upper and lower extremities and trunk Solar lentiginosis Other dyschromia Seborrheic keratosis Acne vulgaris Other acne Rash and other nonspecific skin eruption documented in this encounter Care Teams Chemical Compounder Helper Relationship Specialty Start Date End Date Lauren Saba, JEWELLERY DESIGNER-BARTENDER MANAGER [address] [place] [phone] PCP - General 01/14/18 05/10/23 documented as of this encounter
--- OUTSIDE RECORDS SUMMARY | 2024-03-22 16:38 | XMS_ITS | Encounter Summary ---
Author Organization [facility] Health Address [address] [place] [address] Care Team Providers Care Patcher Helper Name Role Phone Lauren Saba Jose Eduardo KNOX-HISTORIOGRAPHY TEACHER Primary Care Provider Encounter Details Date Type Department Care Team (Latest Contact Info) Description 01/07/2021 8:54 AM CDT - 01/07/2021 11:59 PM CDT Hospital Encounter [facility] [address] [place] [phone] Discharge Disposition: Home or Self Care Social [...] 30 min before MRI. May repeat once. Lathaudl bring ride home back, 2 tablet 10/20/2020 02/14/2021 baclofen (LIORESAL) 10 MG tabletIndications:MS (multiple sclerosis) ([facility]),Vitamin D deficiency,High risk medication use,Nonintractable epilepsy without status epilepticus, unspecified epilepsy type (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 60 tablet 5 10/31/2019 04/11/2021 lacosamide (VIMPAT) 100 MG tabletIndications:Antwon velasco (HCC) Take 1 (one) tablet by mouth 2 times daily 180 tablet 3 01/06/2021 02/09/2021 Ocrelizumab (OCREVUS IV)Indications:every 6 months 600 mg by Intravenous route Reasons: every 6 months 04/11/2021 onabotulinumtoxin A (BOTOX) 100 units injectionIndications: Migraine Inject 200 (two hundred) Units into muscle Every 90 days Reasons: Migraine Headache 2 Each 3 11/01/2020 02/13/2021 predniSONE (DELTASONE) 10 MG tablet Take 10 mg by mouth once daily 01/11/2021 01/14/2021 predniSONE (DELTASONE) 20 MG tablet Take 20 mg by mouth once daily 01/05/2021 01/08/2021 predniSONE (DELTASONE) 5 MG tablet Take 15 mg by mouth once daily 01/08/2021 01/11/2021 tretinoin (RETIN-A) 0.05 % creamIndications:Acne vulgaris Apply [...] st Contact Info) Description 04/04/2024 8:30 AM RADIO TIME SALESPERSON Office Visit [facility] - Dermatology [address] [place] [address], [place] [phone] Marlys Zaragoza MD [address] [place] [address] [place] [phone] 09/03/2024 9:00 AM CDT Office Visit [facility] - Neurology [address] [place] [address], [place] [phone] Melissa Crook, WAREHOUSE HANDLER-HISTORIOGRAPHY TEACHER [address] [place] [address] documented as of this encounter Procedures Procedure Name Priority Date/Time Associated Diagnosis Comments FLOW CYTOMETRY RITUXAN BLOOD Routine 01/07/2021 9:31 AM CDT MS (multiple sclerosis) (HCC) High risk medications (not anticoagulants) long-term use LACOSAMIDE Routine 01/07/2021 9:31 AM CDT Seizures (HCC) ZONISAMIDE LEVEL Routine 01/07/2021 9:31 AM CDT Seizures (HCC) DIFFERENTIAL MANUAL Routine 01/07/2021 9 :31 AM CDT MS (multiple sclerosis) (HCC) High risk medications (not anticoagulants) long-term use CBC W AUTO DIFFERENTIAL Routine 01/07/2021 9:31 AM CDT MS (multiple sclerosis) (HCC) High risk medications (not anticoagulants) long-term use COMPREHENSIVE METABOLIC PANEL Routine 01/07/2021 9:31 AM CDT MS (multiple sclerosis) (HCC) High risk medications (not anticoagulants) long-term use documented in this encounter Results * (ABNORMAL) DIFFERENTIAL MANUAL (01/07/2021 9:31 AM CDT) WBC (corrected for NRBC) 16.9 10? 3 /uL 01/07/2021 11:40 AM CDT [facility] Total Cell Count 100 01/07/2021 11:40 AM CDT [facility] Neutrophils Absolute Manual 12.17(H) 1.60 - 7.00 10? 3 /uL 01/07/2021 11:40 AM T [facility] Comment:(BANDS+SEGS) x WBC = NEUT # (ANC) Lymphocyte Absolute Manual 2.37 1.10 - 3.90 10? 3 /uL 01/07/2021 11:40 AM CDT [facility] Monocytes Absolute Manual 1.69(H) 0.26 - 1.07 10? 3 /uL 01/07/2021 11:40 AM CDT [facility] Eosinophils Absolute Manual 0.68(H) 0.00 - 0.47 10? 3 /uL 01/07/2021 11:40 AM T [facility] Neutrophil % Manual 72(H) 35 - 70 % 01/07/2021 11:40 AM [facility] Lymphocyte % Manual 14(L) 20 - 43 % 01/07/2021 11:40 AM T [facility] Monocytes % Manual 10 5 - 13 % 01/07/2021 11:40 AM [facility] Eosinophils % Manual 4 0 - 6 % 01/07/2021 11:40 AM [facility] Platelet Estimate Adequate Adequate 01/07/2021 11:40 AM T [facility] RBC Morphology Normal 01/07/2021 11:40 AM [facility] Blood BLOOD SPECIMEN / Unknown Lab Venipuncture / Unknown 01/07/2021 9:31 AM CDT 01/07/2021 10:54 AM CDT Markus Cabral MD LAB - HEMATOLOGY ORDERABLES Performing Organization Address City/State/[facility] [[email or web address]] Co de Phone Number [address] [phone], [facility] [phone] * (ABNORMAL) LACOSAMIDE (01/07/2021 9:31 AM CDT) Lacosamide 2.4(L) 5.0 - 10.0 ug/mL 01/10/2021 8:07 PM CDT [facility] ([facility]) Comment: INTERPRETIVE INFORMATION: Lacosamide, Serum or Plasma Therapeutic Range: Not well established. Suggested range 5.0 - 10.0 ug/mL Dose-related range (values at doses of 200-600 mg/day): 2.5 - 18.0 ug/mL Toxic: Not well established. Adverse effects may include dizziness, fatigue, nausea, vomiting, blurred vision and tremor. This test was developed and its performance characteristics determined by [facility]. It has not been cleared or approved by the [place] Food and Drug Administration. This test was performed in a CLIA certified laboratory and is intended for clinical purposes. Performed By: [facility] [address] [place] [address] Fire Department Battalion Chief: Yecenia Arce MD Blood BLOOD SPECIMEN / Unknown Lab Venipuncture / Unknown 01/07/2021 9:31 AM CDT 01/07/2021 10:38 AM CDT Markus Cabral MD LAB - CHEMISTRY ORDERABLES Performing Organization Address [facility] [[email or web address]] Co de Phone Number [facility] ([facility]) [address] [place] [address] * ZONISAMIDE LEVEL (01/07/2021 9:31 AM CDT) Zonisamide 15 10 - 40 ug/mL 01/08/2021 10:14 PM CDT [facility] ([facility]) Comment: INTERPRETIVE INFORMATION: Zonisamide Therapeutic range: Not well established. Toxic: Greater than 80 ug/mL The proposed therapeutic range for seizure control is 10-40 ug/mL. Toxic concentrations may cause coma, seizures and cardiac abnormalities. Pharmacokinetics varies widely, particularly with co-medications and/or compromised renal function. Performed By: [facility] [address] [place] [address] Fire Department Battalion Chief: Yecenia Arce MD Blood BLOOD SPECIMEN / Unknown Lab Venipuncture / Unknown 01/07/2021 9:31 AM CDT 01/07/2021 10:38 AM CDT Markus Cabral MD LAB - CHEMISTRY ORDERABLES Performing Organization Address [facility] [[email or web address]] Co de Phone Number [facility] ([facility]) [address] [place] [address] * FLOW CYTOMETRY RITUXAN BLOOD (01/07/2021 9:31 AM CDT) Reason for test MS (multiple sclerosis) 340 High risk medications (not anticoagulants) long-term use V58.69 01/07/2021 2:08 PM CDT [facility] Client Specimen ID # [id number] 01/07/2021 2:08 PM [facility] Number of Markers 7 01/07/2021 2:08 PM [facility] Flow Cytometry Results Differential Result Comment WBC Count /uL 16,900 % Lymphocytes 9 Lymphocyte Count u/L 1,521 Cell Region A: Lymphocytes Surface Marker Results % Absolute Count (cells/uL) CD3 84 1,278 CD3+CD4+ 61 928 CD3+CD8+ 23 350 CD4:CD8 Ratio 2.65 CD19 0 0 CD20 0 0 CD45 100 1,521 CD56 14 213 01/07/2021 2:08 PM [facility] Flow Cytometry Interpretation Testing is technical only and does not require an interpretation of results. 01/07/2021 2:08 PM [facility] Reference Range Adult Normal Reference Range Adult (> 18 years) CD3 54-84 % CD4 33-63 % CD8 12-39 % CD19 5-19 % CD56 6-26 % CD4+CD45RA+ 30-50 % CD4+CD45RO+ 17-42 % CD19+CD27+ 7-48 % CD19+CD27+IgD+ 7-29 % CD19+CD27+IgD- 3-23 % CD19+BV79-PiJ+ 29-93 % % 01/07/2021 2:08 PM [facility] Disclaimer Test performed at [facility], [address] [place] [address], [address]. This test was developed and its performance [...] perform high complexity clinical testing. By law [place], CD4 lymphocyte counts on patients with HIV infection must be reported by the physician to the [facility] Health authority. 01/07/2021 2:08 PM [facility] Embedded Images 2:08 PM [facility] Blood BLOOD SPECIMEN / Unknown Lab Venipuncture / Unknown 01/07/2021 9:31 AM CDT 01/07/2021 10:42 AM T Markus Cabral MD LAB - PATHOLOGY/CYTOLOGY ORDERABLES [facility] [address] [phone] * (ABNORMAL) COMPREHENSIVE METABOLIC PANEL (01/07/2021 9:31 AM CDT) BUN 22 7 - 26 mg/dL 01/07/2021 11:30 AM [facility] Creatinine 0.64 0.56 - 0.96 mg/dL 01/07/2021 11:30 AM [facility] Sodium 141 136 - 145 mmol/L 01/07/2021 11:30 AM [facility] Potassium 4.7(H) 3.5 - 4.5 mmol/L 01/07/2021 11:30 AM [facility] Chloride 107 98 - 107 mmol/L 01/07/2021 11:30 AM [facility] CO2 24 22 - 29 mmol/L 01/07/2021 11:30 AM [facility] Glucose 88 70 - 115 mg/dL 01/07/2021 11:30 AM [facility] Calcium 9.2 8.4 - 10.2 mg/dL 01/07/2021 11:30 AM [facility] Protein Total 6.7 6.0 - 8.3 g/dL 01/07/2021 11:30 AM [facility] Albumin 3.8 3.4 - 5.0 g/dL 01/07/2021 11:30 AM [facility] Bilirubin Total 0.1(L) 0.2 - 1.2 mg/dL 01/07/2021 11:30 AM [facility] Alkaline Phosphatase 71 40 - 150 U/L 01/07/2021 11:30 AM [facility] ALT 14 5 - 55 U/L 01/07/2021 11:30 AM [facility] AST 9 5 - 34 U/L 01/07/2021 11:30 AM [facility] Anion Gap 15 8 - 18 01/07/2021 11:30 AM [facility] BUN/Creatinine Ratio 34(H) 7 - 23 01/07/2021 11:30 AM [facility] Osmolality Calculated 295 270 - 300 mOsm/kg 01/07/2021 11:30 AM [facility] Albumin/Globulin Ratio 1.3 1.1 - 2.3 01/07/2021 11:30 AM [facility] eGFR by CKD-EPI >90 >=90 mL/min/1.7 3 m2 01/07/2021 11:30 AM [facility] Blood BLOOD SPECIMEN / Unknown Lab Venipuncture / Unknown 01/07/2021 9:31 AM CDT 01/07/2021 10:54 AM T Markus Cabral MD LAB - CHEMISTRY ORDERABLES Performing Organization Address City/State/[facility] [[email or web address]] Co de Phone Number [facility] [address] [place] [phone], [facility] [phone] * (ABNORMAL) CBC WITH DIFFERENTIAL (01/07/2021 9:31 AM T) WBC 16.9(H) 3.5 - 10.5 10? 3 /uL 01/07/2021 11:06 AM [facility] RBC 5.34(H) 3.80 - 5.20 10? 6 /uL 01/07/2021 11:06 AM [facility] Hemoglobin 12.1 12.0 - 15.6 g/dL 01/07/2021 11:06 AM [facility] Hematocrit 39.9 35.0 - 45.0 % 01/07/2021 11:06 AM [facility] MCV 74.7(L) 80.7 - 98.3 fL 01/07/2021 11:06 AM [facility] MCH 22.7(L) 26.7 - 34.0 pg 01/07/2021 11:06 AM [facility] MCHC 30.3(L) 30.8 - 35.9 g/dL 01/07/2021 11:06 AM [facility] Platelet Count 468(H) 150 - 400 10? 3 /uL 01/07/2021 11:06 AM [facility] RDW-SD 46.1 36.0 - 50.0 fL 01/07/2021 11:06 AM [facility] RDW-CV 17.5(H) 11.2 - 14.8 % 01/07/2021 11:06 AM [facility] MPV 9.5 9.4 - 12.9 fL 01/07/2021 11:06 AM [facility] nRBC Absolute 0.00 0 10? 3 /uL 01/07/2021 11:06 AM [facility] nRBC Auto 0.0 0 /100 WBC 01/07/2021 11:06 AM [facility] Blood BLOOD SPECIMEN / Unknown Lab Venipuncture / Unknown 01/07/2021 9:31 AM CDT 01/07/2021 10:54 AM T Markus Silvio Cabral MD LAB - HEMATOLOGY ORDERABLES Performing Organization Address [facility]/State/[facility] [[email or web address]] Co de Phone Number [facility] [address] [place], [place] [phone], [facility] [phone] documented in this encounter Visit Diagnoses Diagnosis Neurogenic bladder Neurogenic bladder, NOS MS (multiple sclerosis) (HCC) Multiple sclerosis High risk medications (not anticoagulants) long-term use Encounter for long-term (current) use of other medications Seizures (HCC) Other convulsions documented in this encounter Care Teams Patcher Helper Relationship Specialty Start Date End Date Lauren Saba, WAREHOUSE HANDLER-HISTORIOGRAPHY TEACHER [address] [place] [phone] PCP - General 01/14/18 05/10/23 documented as of this encounter
--- OUTSIDE RECORDS SUMMARY | 2024-03-22 16:38 | XMS_ITS | Encounter Summary ---
Author Organization [facility] Health Address [address] [place] [address] Care Team Providers Care Refrigeration Engine Operator Name Role Phone Lauren Saba LISETTE-COTTON PICKING MACHINE OPERATOR Primary Care Provider Encounter Details Date Type Department Care Team (Latest Contact Info) Description 11/08/2020 Travel Social History Tobacco Use Types Packs/Day [...] st Contact Info) Description 04/04/2024 8:30 AM ED CASE MANAGER Office Visit [facility] - Dermatology [address] [place] [address], [place] [phone] Marlys Zaragoza MD [address] [place] [address] [address] [place] [address] 09/03/2024 9:00 AM CDT Office Visit [facility] - Neurology [facility] [facility] [place] [address] Melissa Crook, DESIGN CENTER CONSULTANT-COTTON PICKING MACHINE OPERATOR [address] [place] [phone] documented as of this encounter Visit Diagnoses Not on filedocumented in this encounter Care Teams Refrigeration Engine Operator Relationship Specialty Start Date End Date Lauren Saba, DESIGN CENTER CONSULTANT-COTTON PICKING MACHINE OPERATOR [address] [place] [phone] PCP - General 01/14/18 05/10/23 documented as of this encounter
--- OUTSIDE RECORDS SUMMARY | 2024-03-22 16:38 | XMS_ITS | Encounter Summary ---
Author Organization [facility] Address [address] [place] [address] Care Team Providers Care Fitter Hand Name Role Phone Lauren Saba Jose Eduardo KNOX-HEAT CURER Primary Care Provider Encounter Details Date Type Department Care Team ([facility] Contact Info) Description 04/12/2020 Orders Only [facility] [address] [facility], [place] [address] Markus Cabral MD [address] [place] [address] Social History Tobacco Use Types Packs/Day Years [...] COVID-19? No / Unsure 03/17/2020 11:12 AM BOOTMAKER documented as of this encounter Plan of Treatment Upcoming Encounters Date Type Department Care Team ([facility] Contact Info) Description 04/04/2024 8:30 AM BOOTMAKER [facility] [address] [place] [address], [place] [phone] Marlys Zaragoza MD [address] [facility] 3L [place] [phone] 09/03/2024 9:00 AM CDT Office Visit [facility] - Neurology [address] [place] [address], [place] [phone] Melissa Crook APRN-NAIF [address] [place] [phone] documented as of this encounter Visit Diagnoses Not on filedocumented in this encounter Care Teams Fitter Hand Relationship Specialty Start Date End Date Lauren Saba APRN-HEAT CURER [address] [place] [phone] PCP - General 01/14/18 05/10/23 documented as of this encounter
--- OUTSIDE RECORDS SUMMARY | 2024-03-22 16:38 | XMS_ITS | Encounter Summary ---
Author Organization [facility] Health Address [address] [facility] [place] [address] Care Team Providers Care Freight Brake Operator Name Role Phone Lauren Saba Jose Eduardo KNOX-NAPPER RUNNER Primary Care Provider Encounter Details Date Type Department Care Team (Late st Contact Info) Description 04/02/2020 Orders Only [facility] [address] [facility], [place] [phone] Markus Cabral MD [address] [place] [address] Mild cognitive impairment ; Multiple sclerosis (HCC); Impaired functional mobility, balance, gait, and endurance Social History Tobacco Use Types Packs/Day Years [...] COVID-19? No / Unsure 03/17/2020 11:12 AM SPIDER ASSEMBLER documented as of this encounter Plan of Treatment Upcoming Encounters Date Type Department Care Team (Late st Contact Info) Description 04/04/2024 8:30 AM SPIDER ASSEMBLER Office Visit [facility] - Dermatology [address] [place] [address], [place] [phone] Marlys Zaragoza MD [address] [place] [address] [address]L [place] [phone] 09/03/2024 9:00 AM CDT Office Visit [facility] - Neurology [address] [place] [address], [place] [phone] Melissa Crook APRN-NAIF [address] [place] [phone] documented as of this encounter Visit Diagnoses Diagnosis Mild cognitive impairment- Primary Mild cognitive impairment, so stated Multiple sclerosis (HCC) Multiple sclerosis Impaired functional mobility, balance, gait, and endurance documented in this encounter Care Teams Freight Brake Operator Relationship Specialty Start Date End Date Lauren Saba CARRIER PACKER-NAPPER RUNNER [address] [place] [phone] PCP - General 01/14/18 05/10/23 documented as of this encounter
--- OUTSIDE RECORDS SUMMARY | 2024-03-22 16:38 | XMS_ITS | Encounter Summary ---
Author Organization [facility] Address [address] [facility] [place] [address] Care Team Providers Care It Software Engineer Name Role Phone Lauren Saba LISETTE-WELT WHEELER Primary Care Provider Reason for Visit * Reason Comments Lesions 3 mo fu Labial melan otic macule, Hx Sk, acne, sun spots Encounter Details Date Type Department Care Team (Late st Contact Info) Description 05/07/2020 8:20 AM GROUNDWATER MONITORING TECHNICIAN Office Visit [facility] Dermatology [address] [place] [address], [facility] [place] [phone] Marlys Zaragoza MD [address] [place] [address] 3 [place] [phone] Acne vulgaris (Primary Dx); Rash and other nonspecific skin eruption; Xerosis cutis Social History Tobacco Use Types Packs/Day Years [...] this encounter Patient Instructions * Patient Instructions* Ebonie Hunter MD - 05/07/2020 8:46 AM GROUNDWATER MONITORING TECHNICIAN It was a pleasure seeing you in clinic today. We will follow up with you in 6 months. Your acne is doing well. Continue your current treatment. The rash on your leg looks improved. You can stop Halobetasol cram at this time. If rash becomes raised itchy or scaly again, you can re-start using once to twice daily. SUNSCREENS UVA and UVB PROTECTION Sunlight consists [...] Yunier HAWKINS (you can order it online or buy it at [employer] [facility]. It has microsized Zinc oxide and/or titanium dioxide) - Neutrogena sun block lotion for sensitive skin with SPF 30 - Oil of Olay complete defense daily UV moisturizer with SPF 30 -Cetaphil SPF 30 for normal skin or SPF 50 for dry skin DRY SKIN CARE SYMPTOMS Dry skin is abnormal scaling, flaking, and cracking of the upper layer of the skin and leads to itching and discomfort. CAUSES Dry skin is due to lack of water in the skin's outer layer. Normally, oil glands in the skin produce an oily film, which traps in the skin and prevents it from evaporating. There are several reasons why skin gets dry: low relative humidity levels, excessive contact with soaps and detergents, heredity, aging, and/or medically related conditions such as eczema, psoriasis, diabetes, and contact dermatitis. PREVENTION AND TREATMENT Hot showers can make your skin dry. Try lukewarm baths/showers and limiting your bath or shower to less than five minutes. Soaps can make your skin dry. We recommend limiting the daily application of soap to essential areas only such as the groin and axillae (underarms). Certain soaps, especially antibacterial soaps (Dial, Ivory, Zest, Malini Spring) are especially drying. We recommend using moisturizing soaps or cleansers such as Oil of Olay, Dove for sensitive skin,Vanicream, Cerave, or Cetaphil. After your shower or bath, pat yourself dry and immediately apply moisturizer such as Vaseline petroleum jelly, Aquaphor, Cetaphil, Aveeno, or CeraVe cream Repeat this application of moisturizer two to four times daily asneeded. Mild dry skin may be treated with lotions or creams, but severe dry or itchy skin requires ointments (greasy moisturizers such as petroleum jelly). If prone to acne or folliculitis, avoid ointments on the face and scalp. Apply in the direction of hair growth if applying to hair-bearing areas. RISKS OF TOPICAL STEROIDS Topical steroids are beneficial in the treatment of many skin conditions, including dry inflammed skin, eczema, and psoriasis. If you are prescribed a topical steroid medication, you should know certain risks associated withthis treatment. Avoid using strong topical steroids on the face. With repeated use of over time, topical steroids may cause skin atrophy (thinning), hypopigmentation (lightening), broken blood vessels, and/or ulceration. Use these medications only as your doctor prescribes to prevent side effects. NDWATER MONITORING TECHNICIAN documented in this encounter Progress Notes * Ebonie Hunter MD - 05/07/2020 8:30 AM CST Chief Complaint Patient presents with ??? Lesions 3 mo fu Labial melanotic macule, Hx Sk, acne, sun spots HPI: Meredith Frost a 39 year old female presents for follow up of acne and leg rash. Patient was last seen on 02/02/2020. At that visit, acne-switched back to Tret 0.05% cream, BP washQD, erythro soln QD. education program manager is in clinic room with patient today. Concerns: 1. Acne Status of condition: Doing well Current treatment: - Tretinoin 0.05% cream QD - Not using BP wash PRN - Not using erythromycin soln Side effects of treatment: None 2. LE rash Status of condition: Better, not itchy Current treatment: - Halobetasol 0.05% cream QD Side effects of treatment: None PE: No acute distress. Mood clear/affect appropriate. Alert and oriented. Mucous membranes moist. Sclera anicteric. Visible skin exam was conducted to include the scalp, face, lips/teeth, lids/conjunctiva, ears, neck, right and left hands and forearms and left leg was normal with the following exceptions: - Faint valentine patch with slight pink annular border on LLE - Face mostly clear today, no inflammatory papules or pustules - Xerosis of BLE A/P: Problem List Items Addressed This Visit Dermatologic Acne vulgaris - Primary - Much improved, face mostly clear today - Continue Tretinoin 0.05% cream - Advised to apply at [facility] if able - Continue BP wash to face QD - Okay to hold off on Erythro soln at this time, pt not using Rash and other nonspecific skin eruption LLE, much improved, mostly PIH today - Ddx: Resolving GA vs nummular eczema - Discussed etiology and typical time-course - Advised strict sun protection to prevent worsening - Okay to hold off on Halobetasol cream at this time. If eruption recurs, is raised, or itchy again, then re-start BID PRN. Xerosis cutis Primarily BLE - Encouraged frequent moisturizing with bland emollients, recommended Vaseline - Avoid irritating, fragrant, or drying products - Dry skin care handout given RTC in 6 months MDM based billing (click [facility]illingGuide for [facility] smart form; click LOSMeileleAMB for Epic TIME based billing). [facility]illingGuide Coding Rationale New or est? Established Patient Highest problem complexity: 2 or more stable chronic illnesses Highest level of risk: Moderate Suggested code: 01229 Patient was seen, examined, and discussed with attending physician, Dr. Zaragoza. Ebonie Hunter MD Dermatology Resident, PGY-2 [facility], Department of Dermatology NDWATER MONITORING TECHNICIAN Associated attestation - Marlys Zaragoza MD - 05/09/2020 12:12 PM GROUNDWATER MONITORING TECHNICIAN Attending Physician's Note Resident's assessment and care plan reviewed; patient interviewed and examined. I agree with the history of present illness, physical exam, and assessment and plan as documented by the Resident todaywith the following annotations/corrections: History of present illness/Physical exam: 39 yo F here for follow up of acne and rash on LE favored to be dermatitis vs. GA. She reports improvement of both today. I confirm/revise the differential diagnosis to be Meredith was seen today for lesions. Diagnoses and all orders for this visit: Acne vulgaris, improving with tretinoin, continue and recommend restarting BP wash. Okay to continue to hold erythromycin Rash and other nonspecific skin eruption, ddx includes dermatitis vs. GA, previously treated with halobetasol, now with PIH on exam today Xerosis cutis, recommend daily moisturization Please see resident's note for detail. Marlys Zaragoza MD 05/09/2020 documented in this encounter Plan of Treatment Upcoming Encounters Date Type Department Care Team (Late st Contact Info) Description 04/04/2024 8:30 AM GROUNDWATER MONITORING TECHNICIAN Office Visit [facility] - Dermatology [address] [place] [address], [place] [phone] Marlys Zaragoza MD [address] [place] [address] 3 [place] [phone] 09/03/2024 9:00 AM CDT Office Visit [facility] - Neurology [address] [place] [address], [place] [phone] Melissa Crook, SCROLL SHEAR OPERATOR-WELT WHEELER [address] [place] [phone] documented as of this encounter Visit Diagnoses Diagnosis Acne vulgaris- Primary Other acne Rash and other nonspecific skin eruption Xerosis cutis Other specified disease of sebaceous glands * Assessment & Plan Note - Ebonie Hunter MD - 05/07/2020 9:04 AM CSTAssociated Problem(s): Rash and other nonspecific skin eruption LLE, much improved, mostly PIH today - Ddx: Resolving GA vs nummular eczema - Discussed etiology and typical time-course - Advised strict sun protection to prevent worsening - Okay to hold off on Halobetasol cream at this time. If eruption recurs, is raised, or itchy again, then re-start BID PRN. NDWATER MONITORING TECHNICIAN * Assessment & Plan Note - Ebonie Hunter MD - 05/07/2020 9:04 AM CSTAssociated Problem(s): Xerosis cutis Primarily BLE - Encouraged frequent moisturizing with bland emollients, recommended Vaseline - Avoid irritating, fragrant, or drying products - Dry skin care handout given NDWATER MONITORING TECHNICIAN * Assessment & Plan Note - Ebonie Hunter MD - 05/07/2020 9:03 AM CSTAssociated Problem(s): Acne vulgaris - Much improved, face mostly clear today - Continue Tretinoin 0.05% cream - Advised to apply at [facility] if able - Continue BP wash to face QD - Okay to hold off on Erythro soln at this time, pt not using NDWATER MONITORING TECHNICIAN documented in this encounter Care Teams It Software Engineer Relationship Specialty Start Date End Date Lauren Saba APRN-WELT WHEELER [address] [place] [phone] PCP - General 01/14/18 05/10/23 documented as of this encounter
--- OUTSIDE RECORDS SUMMARY | 2024-03-22 16:38 | XMS_ITS | Encounter Summary ---
Author Organization [facility] Health Address [address] [facility] [place] [address] Care Team Providers Care Clerk Name Role Phone Lauren Saba Primary Care Provider Reason for Visit * Reason Comments Refill Request Encounter Details Date Type Department Care Team (Late st Contact Info) Description 06/11/2020 Refill [facility] [address] [facility], [place] [address] Alesia Vazquez APRN-CNP [address] [place] [address] [place] [phone] Refill Request Social History Tobacco Use Types [...] st Contact Info) Description 04/04/2024 8:30 AM FIRESTOPPER TECHNICIAN Office Visit [facility] - Dermatology [address] [place] [address], [place] [phone] Marlys Zaragoza MD [address] [place] [address] 3L [place] [phone] 09/03/2024 9:00 AM CDT Office Visit [facility] - Neurology [address] [place] [address], [place] [phone] Melissa Crook APRN-CNP [address] [place] [phone] documented as of this encounter Visit Diagnoses Diagnosis Nonintractable epilepsy without status epilepticus, unspecified epilepsy type (HCC) Medication monitoring encounter Encounter for therapeutic drug monitoring documented in this encounter Additional Health Concerns Infection Onset Date Last Indicated Resolved Time COVID-19 Confirmed 04/08/2021 04/08/2021 4:33 AM FIRESTOPPER TECHNICIAN documented as of this encounter Care Teams Clerk Relationship Specialty Start Date End Date Lauren Saba APRN-MATERIALS AND CORROSION ENGINEER [address] [place] [phone] PCP - General 01/14/18 05/10/23 documented as of this encounter
--- OUTSIDE RECORDS SUMMARY | 2024-03-22 16:38 | XMS_ITS | Encounter Summary ---
Author Organization [facility] Health Address [address] [facility] [place] [address] Care Team Providers Care Assistant Front Desk Manager Name Role Phone Lauren Saba Jose Eduardo KNOX-PUGGER HELPER Primary Care Provider Reason for Visit * Reason Comments Results Encounter Details Date Type Department Care Team (Latest Contact Info) Description 06/25/2020 10:00 AM CDT Video Visit [facility] Neurology [address] [place] [address] Jefferson Suarez, PhD [address] [place] [address] Major neurocognitive disorder (HCC) Social History Tobacco Use Types Packs/Day [...] Progress Notes * Jefferson Suarez, PhD - 07/26/2020 3:42 PM CDT Patient Verification & Telemedicine Based Consent Today's visit was conducted virtually due to COVID-19 countermeasures. The patient has given verbalconsent to have today's visit conducted by this same means with treatment provided remotely. The patient verbally consents to the billing and collection practices of the provider's medical group. Ms. Frost presented for tele-health feedback appointment to discuss results, impressions, and recommendations of recent neuropsychological re-evaluation. All questions were answered prior to conclusion of the encounter. Results were also provided to her mother (pts. Legal guardian) separately. Less than 30minutes were spent providing this professional service. Jefferson Suarez, PhD documented in this encounter Plan of Treatment Upcoming Encounters Date Type Department Care Team (Late st Contact Info) Description 04/04/2024 8:30 AM PRODUCTION GEAR CUTTER Office Visit [facility] - Dermatology [address] [place] [address] [place] [phone] Marlys Zaragoza MD [address] [place] [address] 3 [place] [phone] 09/03/2024 9:00 AM CDT Office Visit [facility] - Neurology [address] [place] [phone] Melissa Crook APRN-PUGGER HELPER [address] [place] [phone] documented as of this encounter Visit Diagnoses Diagnosis Major neurocognitive disorder (HCC)- Primary documented in this encounter Care Teams Assistant Front Desk Manager Relationship Specialty Start Date End Date Lauren Saba BOWLING ALLEY REFINISHER-PUGGER HELPER [address] [place] [phone] PCP - General 01/14/18 05/10/23 documented as of this encounter
--- OUTSIDE RECORDS SUMMARY | 2024-03-22 16:38 | XMS_ITS | Encounter Summary ---
Author Organization [facility] Address [address] [facility] [place] [address] Care Team Providers Care Direct Marketing Executive Name Role Phone Lauren Saba LISETTE-STORYBOARD ARTIST Primary Care Provider Encounter Details Date Type Department Care Team (Latest Contact Info) Description 10/20/2020 Travel Social History Tobacco Use Types Packs/Day [...] Contact Info) Description 04/04/2024 8:30 AM PROSTHETIC TECHNICIAN Office Visit [facility] - Dermatology [address] [place] [address], [place] [phone] Marlys Zaragoza MD [address] [place] [address] 3 [place] [address] 09/03/2024 9:00 AM CDT Office Visit [facility] - Neurology [facility] [facility] [place] [address] Melissa Crook, LABORER-STORYBOARD ARTIST [address] [place] [phone] documented as of this encounter Visit Diagnoses Not on filedocumented in this encounter Care Teams Direct Marketing Executive Relationship Specialty Start Date End Date Lauren Saba, LABORER-STORYBOARD ARTIST [address] [place] [phone] PCP - General 01/14/18 05/10/23 documented as of this encounter
--- OUTSIDE RECORDS SUMMARY | 2024-03-22 16:38 | XMS_ITS | Encounter Summary ---
Author Organization [facility] Health Address [address] [address] Care Team Providers Care Pharmacy Helper Name Role Phone Lauren Saba Jose Eduardo KNOX-HYDROPONICS GROWER Primary Care Provider Reason for Visit * Reason Comments Establish Care Neurogenic Bladder/I ncontinence Encounter Details Date Type Department Care Team (Late st Contact Info) Description 08/13/2020 8:00 AM CDT Office Visit [facility] Urology [facility] [address] Cheng Cotter MD Urinary urgency (Primary Dx); Nocturnal enuresis; MS (multiple sclerosis) (HCC) Social History Tobacco [...] Reading Time Taken Comments Blood Pressure 118/78 08/13/2020 8:01 AM CDT Pulse 76 08/13/2020 8:01 AM CDT Temperature 36.4 ??C (97.5 ??F) 08/13/2020 8:01 AM CD T Respiratory Rate - - Oxygen Saturation 98% 08/13/2020 8:01 AM CDT Inhaled Oxygen Concentration - - Weight 62.6 kg (138 lb) 08/13/2020 8:01 AM CDT Height 165.1 cm (5' 5 ) 08/13/2020 8:01 AM CDT Body Mass Index 22.96 08/13/2020 8:01 AM CDT documented in this encounter Patient Instructions * Patient Instructions* Trevor Edwards MD - 08/13/2020 8:26 AM CDT We will schedule you for Urodynamics to better evaluate your bladder. You can make that appointmentup front. Call with any questions. documented in this encounter Progress Notes * Trevor Edwards MD - 08/13/2020 8:[address] [facility] Division of Urologic Surgery Cheng Cotter MD Date of Visit: 08/13/2020 Patient Name: Meredith Frost Medical Record: [id number] : 1980 Age: [age] year old Sex: female Chief Complaint: urgency, nocturnal enuresis History of Present Illness: The patient is a 39 year old female being seen today for new evaluation and treatment of urgency and nocturnal enuresis which has been going on for a year. She has hx of MS, epilepsy and major neurocognitive disorder. Her MS was diagnosed in 2006. She states her urinary symptoms have been going on for one year. She endorses urgency, frequency, leakage, and nocturnal enuresis every day. Denies UTIs, hematuria, dysuria or incomplete emptying. Denies episodes of urinary retention. She denies hx ofstones. Denies fevers or chills. Denies using medication for urinary complaints or seeing a urologist before. Review of Systems Constitutional: Negative for fatigue, weight loss, fevers, chills, anorexia. Respiratory: Negative for shortness of breath, acute cough, asthma, wheezing Cardiovascular: Negative for chest pain, cyanosis Gastrointestinal: Negative for nausea, vomiting, hemetemesis, hematochezia, abdominal pain, constipation, diarrhea Genitourinary: Negative for dysuria, hematuria Skin: Negative for rash Hematologic/lymphatic: Negative for easy bruising Neurological: Negative for headaches, seizures Past Medical History: Past Medical History: Diagnosis Date ??? Asthma ??? Migraines ??? MS (multiple sclerosis) ??? Seizures Past Surgical History: Past Surgical History: Procedure Laterality Date ??? NM CHEMODENERV MUSC MIGRAINE 07/18/2017 ??? NM CHEMODENERV MUSC MIGRAINE 10/17/2017 ??? NM CHEMODENERV MUSC MIGRAINE 01/14/2018 ??? NM CHEMODENERV MUSC MIGRAINE 04/15/2018 ??? NM CHEMODENERV MUSC MIGRAINE 07/22/2018 ??? NM CHEMODENERV MUSC MIGRAINE 10/21/2018 ??? NM CHEMODENERV MUSC MIGRAINE 10/13/2019 ??? NM CHEMODENERV MUSC MIGRAINE 01/12/2020 ??? NM CHEMODENERV MUSC MIGRAINE 04/19/2020 ??? NM CHEMODENERV MUSC MIGRAINE 07/21/2020 Family History: Family History Problem Relation Name [...] use: Yes Alcohol/week: 1.0 - 2.0 standard drinks Types: 1 - 2 Cans of beer [...] mouth ??? baclofen (LIORESAL) 10 MG tablet TAKE 1 TABLET BY MOUTH TWICE DAILY. MAY CAUSE DROWSINESS 60 tablet 5 ??? benzoyl peroxide (BENZAC) 10 % wash Wash face and body with once daily 148 mL 5 ??? budesonide-formoterol (SYMBICORT) 160-4.5 MCG/ACT inhaler INHALE 2 PUFFS BY MOUTH TWICE DAILY ??? Qlpkksodmk-WMHI-Gkphxdza 50-325-40 MG szyvpyyuhw-qvrcaqgfnvcdv-qjurridl 50 mg-325 mg-40 mg capsule Take 1 capsule every 4 hours by oral route. ??? clindamycin (CLEOCIN) 300 MG capsule TK 1 C PO Q 6 H FOR 10 DAYS ??? erythromycin (ERYDERM) 2 % solution Apply 1-2 times daily to entire face 60 mL 11 ??? escitalopram (LEXAPRO) 20 MG tablet Take 1 (one) tablet by mouth once daily 90 tablet 1 ??? fluticasone propionate (FLONASE) 50 MCG/ACT nasal spray [place] 1 [place] into the nose ??? ibuprofen (MOTRIN) 800 MG tablet Take 1 tablet by mouth 2 times daily as needed For headache. 60 tablet 5 ??? ketoconazole (NIZORAL) 2 % cream Apply 1 Dose to affected area once daily ??? Ocrelizumab (OCREVUS IV) 600 mg by Intravenous route Reasons: every 6 months ??? onabotulinumtoxin A (BOTOX) 100 units injection Inject 200 (two hundred) Units into muscle Every 90 days Reasons: Migraine Headache 2 Each 3 ??? SUMAtriptan (IMITREX) 50 MG tablet sumatriptan 50 mg tablet ??? tretinoin (RETIN-A) 0.05 % cream Apply a pea-sized amount to entire face QHS. 30 day supply. 45g 5 ??? zonisamide (ZONEGRAN) 100 MG capsule Take 5 (five) capsules by mouth at bedtime 150 capsule 6 No current facility-administered medications on file prior to visit. Allergies: No Known Allergies Physical Examination: BP 118/78 Pulse 76 Temp 97.5 ??F (36.4 ??C) Ht 5' 5 (1.651 m) Wt 138 lb (62.6 kg) SpO2 98% BMI 22.96 kg/m?? Body mass index is 22.96 kg/m??. General: NAD Eyes: conjunctiva clear ENT: MMM, oropharynx clear Lungs: No increased respiratory effort Heart: regular rate and rhythm Abdomen: soft, non-distended, : deferred Extremities: No edema, moves all four extremities Neuro: awake, alert Labs: Recent Labs Component Name 03/17/20 1137 09/01/19 1128 05/14/19 0950 11/06/18 1004 05/08/18 0906 SODIUM - - 142 138 137 POTASSIUM 4.3 4.6* 4.3 4.1 4.3 CHLORIDE - - 110 109 107 CO2 23 23 25 24 25 BUN 17 16 16 16 23 CREATININE 0.7 0.8 0.70 0.71 0.71 GLUCOSE 98 95 72 107* 89 CALCIUM 9.1 9.5 9.2 9.1 9.4 Recent Labs Component Name 03/17/20 1137 05/14/19 0950 WBC 10.6* 7.4 RBC 4.77 4.85 HGB 13.3 13.5 HCT 41.1 42.2 MCV 86.2 87.0 MCH 27.9* 27.8 MCHC 32.4 32.0 RDW 13.2 13.8 PLTCOUNT 336 365 LYMPHPCT - 22.1 EOSINPCT - 7.0 BASOPHILPCT - 1.1 GRANPCT - 55.2 Micro: No results found for this or any previous visit (from the past 72 hour(s)). Pathology: none Imaging: none Assessment Meredith Frost is a 39 year old female with hx of MS who has urgency and nocturnal enuresis. Recommendations - Will plan for urodynamics Trevor Edwards MD Urology Resident 08/13/2020 8:39 AM Associated attestation - Cheng Ctoter MD - 08/13/2020 11:21 AM CDT Pt seen/examined. Agree with resident documentation. Pt with irritative urinary sx c/w overactivityand this is likely due to her MS. She does need uds to ensure her bladder function is not putting her upper tracts at risk. Will discuss treatment options after this is complete. Pt does get botox for unrelated reasons and we must take this into consideration if this becomes an option we choose forbladder management. Pt understands and agrees with plan. Cheng Cotter MD documented in this encounter Plan of Treatment Upcoming Encounters Date Type Department Care Team (Late st Contact Info) Description 04/04/2024 8:30 AM FURNITURE SALES CONSULTANT [facility] [address] [place] [address], [place] [phone] Marlys Zaragoza MD [address] [place] [address] [place] [phone] 09/03/2024 9:00 AM CDT Office Visit [facility] - Neurology [address] [place] [phone] Melissa Crook APRN-HYDROPONICS GROWER [address] [place] [phone] documented as of this encounter Visit Diagnoses Diagnosis Urinary urgency- Primary Urgency of urination Nocturnal enuresis MS (multiple sclerosis) (HCC) Multiple sclerosis documented in this encounter Care Teams Pharmacy Helper Relationship Specialty Start Date End Date Lauren Saba RESIN SHAVER-HYDROPONICS GROWER [address] [place] [phone] PCP - General 01/14/18 05/10/23 documented as of this encounter
--- OUTSIDE RECORDS SUMMARY | 2024-03-22 16:38 | XMS_ITS | Encounter Summary ---
Author Organization [facility] Health Address [address] [place] [address] Care Team Providers Care Recreation Worker Name Role Phone Wandy, Lauren JOSHI Primary Care Provider Encounter Details Date Type Department Care Team (Late st Contact Info) Description 07/05/2020 Orders Only [facility] [address] [place] [address], [place] [address] Alesia Vazquez APRN-CNP [address] [place] [address] [place] [address] MS (multiple sclerosis) (HCC) ; Neurogenic bladder; Other urinary incontinence Social History Tobacco Use Types Packs/Day Years [...] as of this encounter Progress Notes * Alesia Vazquez APRN-CNP - 07/05/2020 9:30 AM CDT Ref to Urology placed. documented in this encounter Plan of Treatment Upcoming Encounters Date Type Department Care Team (Late st Contact Info) Description 04/04/2024 8:30 AM MAST MAKER Office Visit [facility] - Dermatology [address] [place] [address], [place] [phone] Marlys Zaragoza MD [address] [place] [address] 3 [place] [phone] 09/03/2024 9:00 AM CDT Office Visit [facility] - Neurology [address] [place] [address], [place] [phone] Melissa Crook APRN-CNP [address] [place] [address] documented as of this encounter Visit Diagnoses Diagnosis MS (multiple sclerosis) (HCC)- Primary Multiple sclerosis Neurogenic bladder Neurogenic bladder, NOS Other urinary incontinence documented in this encounter Care Teams Recreation Worker Relationship Specialty Start Date End Date Lauren Saba APRN-CNP [address] [place] [phone] PCP - General 01/14/18 05/10/23 documented as of this encounter
--- OUTSIDE RECORDS SUMMARY | 2024-03-22 16:38 | XMS_ITS | Encounter Summary ---
Author Organization [facility] Health Address [address] [place] [address] Care Team Providers Care Lap Checker Name Role Phone Lauren Saba Primary Care Provider Reason for Visit * Reason Onset Date Comments Seizure 02/04/2021 Encounter Details Date Type Department Care Team ([facility] st Contact Info) Description 02/04/2021 Telephone [facility] [address] [facility], [place] [address] Alesia Vazquez APRN-CNP [facility] [place] [address] Seizure Social History Tobacco Use Types Packs/Day Years [...] encounter Miscellaneous Notes * Telephone Encounter - Alesia Vazquez APRN-CNP - 02/07/2021 2:25 PM GARMENT LINER Spoke to Serg (pt's mother) Per Serg- Local Neuro was in touch with [facility] and could not transfer her due to bed availability andthey are going to discharge her today. She said they kept her on Zonisamide 500 mg HS but increasedher Vimpat. (unknown dose). She also feels like there is some psychogenic component and she wants to have 24 hr EEG. I advised her to have her follow up next week With Dr. Haywood as scheduled. Serg said she has COVID and wont be able to come- case assistant will bring Meredith. She expressed concerns to see Dr. Renee for seizures. She also expressed concerns that Meredith probably will have another seizure once she comes home and I advised her to bring her to [facility] ER. Alesia Mckeon, MSN, SENIOR MANAGER QUALITY ASSURANCE-C Department of Neurology ENT LINER * Telephone Encounter - Melinda Espinoza RN - 02/04/2021 9:52 AM GARMENT LINER Received message from mother. She state patient is currently admitted at another hospital and she is requesting a transfer to [facility] for additional workup. She states that the patient is on multiple medications for seizure and this is her second back to back in 33 days that she is having seizures. Mother can be reached at [phone]. ENT LINER documented in this encounter Plan of Treatment Upcoming Encounters Date Type Department Care Team (Late st Contact Info) Description 04/04/2024 8:30 AM GARMENT LINER Office Visit [facility] - Dermatology [address] [place] [address], [place] [phone] Marlys Zaragoza MD [address] [place] [address] 3 [place] [phone] 09/03/2024 9:00 AM CDT Office Visit [facility] - [facility]5 [place] [phone] Melissa Crook APRN-NAIF [address] [place] [phone] documented as of this encounter Visit Diagnoses Not on filedocumented in this encounter Care Teams Lap Checker Relationship Specialty Start Date End Date Lauren Saba APRN-DRIVER/REFUSE COLLECTOR [address] [place] [phone] PCP - General 01/14/18 05/10/23 documented as of this encounter
--- OUTSIDE RECORDS SUMMARY | 2024-03-22 16:38 | XMS_ITS | Encounter Summary ---
Author Organization [facility] Health Address [address] [facility] [place] [address] Care Team Providers Care Family Law Attorney Name Role Phone Lauren Saba Kahlil KNOX-FULL STACK WEB DEVELOPER Primary Care Provider Encounter Details Date Type Department Care Team (Latest Contact Info) Description 11/01/2020 3:35 PM CDT - 11/01/2020 11:59 PM CDT Hospital Encounter [facility] OP DRAW STATION [address] [place] [phone] Discharge Disposition: Home or Self Care Social [...] 30 min before MRI. May repeat once. Lathaudkahlil bring ride home back, 2 tablet 10/20/2020 02/14/2021 baclofen (LIORESAL) 10 MG tabletIndications:MS (multiple sclerosis) ([facility]),Vitamin D deficiency,High risk medication use,Nonintractable epilepsy without status epilepticus, unspecified epilepsy type ([facility]),Mild cognitive impairment,Intractabl e chronic migraine without aura [...] fluticasone propionate (FLONASE) 50 MCG/ACT nasal spray [place] 1 [place] into the nose 03/05/2014 04/11/2021 ibuprofen (MOTRIN) [...] st Contact Info) Description 04/04/2024 8:30 AM RISK OFFICER [facility] D[facility] [address] [place] [address] [place] [phone] Marlys Zaragoza MD [address] [place] [address] [place] [phone] 09/03/2024 9:00 AM CDT Office Visit [facility] - Neurology [address] [place] [phone] Melissa Crook APRN-NAIF [address] [place] [phone] documented as of this encounter Visit Diagnoses Not on filedocumented in this encounter Care Teams Family Law Attorney Relationship Specialty Start Date End Date Lauren Saba APRN-FULL STACK WEB DEVELOPER [address] [place] [phone] PCP - General 01/14/18 05/10/23 documented as of this encounter
--- OUTSIDE RECORDS SUMMARY | 2024-03-22 16:38 | XMS_ITS | Encounter Summary ---
Author Organization [facility] Health Address [address] [place] [address] Care Team Providers Care Burlapper Name Role Phone Lauren Saba LISETTE-TARIFF SUPERVISOR Primary Care Provider Encounter Details Date Type Department Care Team (Latest Contact Info) Description 01/06/2021 Travel Social History Tobacco Use Types Packs/Day [...] st Contact Info) Description 04/04/2024 8:30 AM IT INTERN Office Visit [facility] - Dermatology [address] [place] [address], [place] [phone] Marlys Zaragoza MD [address] [place] [address] 3 [place] [address] 09/03/2024 9:00 AM CDT Office Visit [facility] [place] [address] Melissa Crook, SERVICE DISMANTLER-TARIFF SUPERVISOR [address] [place] [phone] documented as of this encounter Visit Diagnoses Not on filedocumented in this encounter Care Teams Burlapper Relationship Specialty Start Date End Date Lauren Saba, SERVICE DISMANTLER-TARIFF SUPERVISOR [address] [place] [phone] PCP - General 01/14/18 05/10/23 documented as of this encounter
--- OUTSIDE RECORDS SUMMARY | 2024-03-22 16:38 | XMS_ITS | Encounter Summary ---
Author Organization [facility] Address [address] [place] [address] Care Team Providers Care Commercial Sheet Metal Foreman Name Role Phone Lauren Saba Jose Eduardo KNOX-AUTO TRAVEL COUNSELOR Primary Care Provider Reason for Visit * Reason Comments Botox Encounter Details Date Type Department Care Team (Latest Contact Info) Description 11/01/2020 3:00 PM CDT Procedure visit [facility] Neurology [address] [place] [address], [place] [address] Mckayla Haywood MD [address] [place] [address] [place] [address] Intractable chronic 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 without status migrainosus ; Leukocytosis, unspecified type Social History Tobacco Use Types [...] Sign Reading Time Taken Comments Blood Pressure 123/77 11/01/2020 2:57 PM CDT Pulse 97 11/01/2020 2:57 PM CDT Temperature 37 ??C (98.6 ??F) 11/01/2020 2:57 PM CDT Respiratory Rate - - Oxygen Saturation 99% 11/01/2020 2:57 PM CDT Inhaled Oxygen Concentration - - Weight 59.5 kg (131 lb 3.2 oz) 11/01/2020 2:57 P M CDT Height 165.1 cm (5' 5 ) 11/01/2020 2:57 PM CDT Body Mass Index 21.83 11/01/2020 2:57 PM CDT documented in this encounter Progress Notes * Mckayla Haywood MD - 11/01/2020 3:00 PM CDT Current Outpatient Medications Medication Sig Dispense Refill [...] Shoudl bring ride home back, 2 tablet 0 ??? baclofen (LIORESAL) 10 [...] 2 PUFFS BY MOUTH TWICE DAILY ??? Ywqpjfyuhq-OOFJ-Yuhkcgpi 50-325-40 MG yxjlkezqte-ociusnydbmpri-ijivumji 50 mg-325 mg-40 mg capsule Take 1 capsule every 4 hours by oral route. (Patient not taking: No sig reported) ??? clindamycin (CLEOCIN) 300 MG capsule Take 300 mg by mouth 3 times daily ??? erythromycin (ERYDERM) 2 % solution Apply 1-2 times daily to entire face 60 mL 11 ??? escitalopram (LEXAPRO) 20 MG tablet Take 1 (one) tablet by mouth once daily 90 tablet 1 ??? fluticasone propionate (FLONASE) 50 MCG/ACT nasal spray [place] 1 [place] into the nose ??? ibuprofen (MOTRIN) 800 MG tablet Take 1 tablet by mouth 2 times daily as needed For headache. 60 tablet 5 ??? Ocrelizumab (OCREVUS IV) 600 mg by Intravenous route Reasons: every 6 months ??? onabotulinumtoxin A (BOTOX) 100 units injection Inject 200 (two hundred) Units into muscle Every 90 days Reasons: Migraine Headache 2 Each 3 ??? tretinoin (RETIN-A) 0.05 % cream Apply a pea-sized amount to entire face QHS. 30 day supply. 45g 5 ??? zonisamide (ZONEGRAN) 100 MG capsule Take 5 (five) capsules by mouth at bedtime 150 capsule 6 No current facility-administered medications for this visit. BP 123/77 Pulse 97 Temp 98.6 ??F (37 ??C) (Temporal) Ht 5' 5 (1.651 m) Wt 131 lb 3.2 oz (59.5 kg) SpO2 99% BMI 21.83 kg/m2 Follows in MS clinic and epilepsy clinic Just taking tylenol for breakthrough headaches. No side effects. Recent CBC showed elevated WBC. Has been diagnosed with trichomonas. Will recheck CBC and check UA at recommendation of MS specialist. Dr. Holliday (resident) assisted in the procedure. I was present during entire procedure. documented in this encounter Procedure Notes * Mckayla Haywood MD - 11/01/2020 3:02 PM CDTAssociated Order(s): PROC INJECTION - BOTOX Procedure(s): DE CHEMODENERV MUSC MIGRAINE Pre-Procedure Diagnose(s): Intractable chronic 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 without status migrainosus Post-Procedure Diagnose(s): Intractable chronic 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 without status migrainosus Patient's identity confirmed by having patient say first and last name, and date of . Diagnosis: Chronic migraine G 43.709 Chronic migraine without aura, non-intractable, without status migrainosus G 43.719 Chronic migraine without aura,intractable, Without status migrainosus x G 43.701 Chronic migraine without aura, Not intractable,, with status migrainosus G 43.711 Chronic migraine without aura, intractable, with status migrainosus Procedure code: 22960 History: Baseline number of headaches per month: 30 Current headaches per month:5 Number of headache hours per day (baseline): 12 Number of headache hour per day (current): 6 Associated symptoms (baseline): Moderate to severe pain, nausea, vomiting, photophobia, phonophobia. Associated symptoms (current): Moderate pain, nausea, photophobia, phonophobia. The patient has had significant benefit from Botox with a 50% reduction in headache frequency and severity. Current migraine prophylactic medications: Current migraine abortive treatments: Date of last injection: 07/21/2020 Duration of benefit: 2-3 months Side effects [...] st Contact Info) Description 04/04/2024 8:30 AM MAIL PROCESSING EQUIPMENT MECHANIC Office Visit [facility] - Dermatology [address] [place] [address], [place] [phone] Marlys Zaragoza MD [address] [place] [address] [address] [place] [phone] 09/03/2024 9:00 AM CDT Office Visit [facility] - Neurology [address] [place] [phone] Melissa Crook, LISETTE-AUTO TRAVEL COUNSELOR [address] [place] [phone] documented as of this encounter Procedures Procedure Name Priority Date/Time Associated Diagnosis Comments URINALYSIS W/MICROSCOPIC REFLEX TO CULTURE Routine 11/01/2020 4:32 PM CDT Leukocytosis, unspecified type CBC W AUTO DIFFERENTIAL Routine 11/01/2020 4:32 PM CDT Leukocytosis, unspecified type DE CHEMODENERV MUSC MIGRAINE Routine 11/01/2020 3:02 PM CDT Intractable chronic 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 without status migrainosus documented in this encounter Results * (ABNORMAL) URINALYSIS W/MICROSCOPIC REFLEX TO CULTURE (11/01/2020 4:32 PM CDT) Color UA Cinda(A) Straw, Yellow 11/01/2020 5:19 PM [facility] Clarity UA Slt Cloudy(A) Clear 11/01/2020 5:19 PM T [facility] Specific Rosamond UA 1.024 1.005 - 1.030 11/01/2020 5:19 PM [facility] pH UA 5.0 5.0 - 8.0 pH 11/01/2020 5:19 PM [facility] Protein UA Negative Negative 11/01/2020 5:19 PM [facility] Glucose UA Negative Negative 11/01/2020 5:19 PM [facility] Ketone UA Negative Negative 11/01/2020 5:19 PM [facility] Bilirubin UA Negative Negative 11/01/2020 5:19 PM [facility] Blood UA Negative Negative 11/01/2020 5:19 PM [facility] Nitrite UA Negative Negative 11/01/2020 5:19 PM [facility] Leukocyte Esterase Negative Negative 11/01/2020 5:19 PM [facility] Urobilinogen UA Negative Negative mg/dL 11/01/2020 5:19 PM [facility] RBC UA 6-10(A) None Seen, 0-2, 3-5 /HPF 11/01/2020 5:19 PM [facility] WBC UA 0-5 None Seen, 0-5 /HPF 11/01/2020 5:19 PM [facility] Squamous Epithelial Cells UA 3-5 None Seen, 0-2, 3-5 /HPF 11/01/2020 5:19 PM [facility] Mucus UA 4+ /LPF 11/01/2020 5:19 PM [facility] Urine URINE SPECIMEN OBTAINED BY CLEAN CATCH PROCEDURE / Unknown Collection / Unknown 11/01/2020 4:32 PM CDT 11/01/2020 4:56 PM CDT [facility] - 11/01/2020 5:19 PM CDT Culture Not Indicated Mckayla Haywood MD LAB - URINALYSIS ORD ERABLES [facility] [address] [place] [address], [facility] [phone] * (ABNORMAL) CBC WITH DIFFERENTIAL (11/01/2020 4:32 PM CDT) WBC 14.0(H) 3.5 - 10.5 10? 3 /uL 11/01/2020 5:11 PM [facility] RBC 4.99 3.80 - 5.20 10? 6 /uL 11/01/2020 5:11 PM [facility] Hemoglobin 12.0 12.0 - 15.6 g/dL 11/01/2020 5:11 PM [facility] Hematocrit 39.7 35.0 - 45.0 % 11/01/2020 5:11 PM [facility] MCV 79.6(L) 80.7 - 98.3 fL 11/01/2020 5:11 PM [facility] MCH 24.0(L) 26.7 - 34.0 pg 11/01/2020 5:11 PM [facility] MCHC 30.2(L) 30.8 - 35.9 g/dL 11/01/2020 5:11 PM [facility] Platelet Count 572(H) 150 - 400 10? 3 /uL 11/01/2020 5:11 PM [facility] RDW-SD 45.9 36.0 - 50.0 fL 11/01/2020 5:11 PM [facility] RDW-CV 15.9(H) 11.2 - 14.8 % 11/01/2020 5:11 PM [facility] MPV 8.8(L) 9.4 - 12.9 fL 11/01/2020 5:11 PM [facility] nRBC Absolute 0.00 0 10? 3 /uL 11/01/2020 5:11 PM [facility] nRBC Auto 0.0 0 /100 WBC 11/01/2020 5:11 PM [facility] Neutrophils % 72.6(H) 35.0 - 70.0 % 11/01/2020 5:11 PM CDT [facility] Lymphocytes % 14.5(L) 20.0 - 43.0 % 11/01/2020 5:11 PM CDT [facility] Monocytes % 7.3 5.0 - 13.0 % 11/01/2020 5:11 PM CDT [facility] Eosinophils % 3.1 0.0 - 6.0 % 11/01/2020 5:11 PM CDT [facility] Basophil % 0.9 0.0 - 2.0 % 11/01/2020 5:11 PM CDT [facility] Neutrophils Absolute 10.2(H) 1.6 - 7.0 10? 3 /uL 11/01/2020 5:11 PM CDT [facility] Lymphocyte Absolute 2.0 1.1 - 3.9 10? 3 /uL 11/01/2020 5:11 PM CDT [facility] Monocytes Absolute 1.02 0.26 - 1.07 10? 3 /uL 11/01/2020 5:11 PM CDT [facility] Eosinophils Absolute 0.44 0.00 - 0.47 10? 3 /uL 11/01/2020 5:11 PM CDT [facility] Basophils Absolute 0.13(H) 0.00 - 0.08 10? 3 /uL 11/01/2020 5:11 PM CDT [facility] Immature Granulocytes % 1.6(H) 0.0 - 1.0 % 11/01/2020 5:11 PM CDT [facility] Immature Granulocytes Absolute 0.22 11/01/2020 5:11 PM CDT [facility] Blood BLOOD SPECIMEN / Unknown Lab Venipuncture / Unknown 11/01/2020 4:32 PM CDT 11/01/2020 4:58 PM CDT Mckayla Haywood MD LAB - HEMATOLOGY ORD ERABLES [facility] [address] [place] [address], [facility] [phone] * DE CHEMODENERV MUSC MIGRAINE (11/01/2020 3:02 PM CDT) [...] intractable, with status migrainosus ?? Procedure code: 19606 History: Baseline number of headaches per month: [...] so stated, without mention of status migrainosus Leukocytosis, unspecified type documented in this encounter Administered Medications Inactive Administered Medications - up to 3 most recent administrations Medication Order MAR Action Action Date Dose Rate Site onabotulinumtoxin A (Botox) injection 200 Units 200 Units, Intramuscular, ONCE, 1 dose, On 11/01/20 at 1530 $ Given 11/01/2020 3:46 PM CDT 200 Units Head documented in this encounter Care Teams Commercial Sheet Metal Foreman Relationship Specialty Start Date End Date Lauren Saba APRN-AUTO TRAVEL COUNSELOR [address] [place] [phone] PCP - General 01/14/18 05/10/23 documented as of this encounter
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
--- OUTSIDE RECORDS SUMMARY | 2024-03-22 16:38 | XMS_ITS | Encounter Summary ---
Author Organization [facility] Address [address] [place] [address] Care Team Providers Care Supplier Quality Engineer Name Role Phone WandyLauren APRN-DIPLOMATIC INTERPRETER Primary Care Provider Reason for Visit * Oncology Prior Authorization (Routine) - Closed Specialty Diagnoses / Procedures Referred By Contac t Referred To Contact Diagnoses MS (multiple sclerosis) (HCC) Deja Godinez, PharmD [address] [place] [address] Aff [facility] [address] [place] [address] Referral ID Status Reason Start Date Expiration Date Visits Re quested Visits Authorized [id number] Closed 11/11/2020 11/11/2021 1 1 Encounter Details Date Type Department Care Team (Latest Contact Info) Description 11/17/2020 9:00 AM CDT Procedure visit [facility] [place] [address] [place] [address] MS (multiple sclerosis) (HCC) Social [...] Sign Reading Time Taken Comments Blood Pressure 99/62 11/17/2020 9:25 AM CDT Pulse 72 11/17/2020 9:25 AM CDT Temperature 36.8 ??C (98.2 ??F) 11/17/2020 9:25 AM CD T Respiratory Rate 16 11/17/2020 9:25 AM CDT Oxygen Saturation 97% 11/17/2020 9:25 AM CDT Inhaled Oxygen Concentration - - Weight 59.3 kg (130 lb 11.2 oz) 11/17/2020 9:25 AM CDT Height 165.1 cm (5' 5 ) 11/17/2020 9:25 AM CDT Body Mass Index 21.75 11/17/2020 9:25 AM CDT documented in this encounter Plan of Treatment Upcoming Encounters Date Type Department Care Team (Late st Contact Info) Description 04/04/2024 8:30 AM PARTS CATALOGUER Office Visit [facility] - Dermatology [address] [place] [address], [place] [phone] Marlys Zaragoza MD [address] [place] [address] [address] [place] [phone] 09/03/2024 9:00 AM CDT Office Visit [facility] - Neurology [address] [place] [phone] Melissa Crook APRN-DIPLOMATIC INTERPRETER [address] [place] [phone] documented as of this encounter Visit Diagnoses Diagnosis MS (multiple sclerosis) (HCC)- Primary Multiple sclerosis documented in this encounter Administered Medications Inactive Administered Medications - up to 3 most recent administrations Medication Order MAR Action Action Date Dose Rate Site acetaminophen (Tylenol) tablet 650 mg 650 mg, Oral, ONCE, 1 dose, On Sun11/17/20 at 0915, Maximum allowable Acetaminophen amount = 4 Grams (4000 mg) / 24 hours. Administer pre-medications 30-60 minutes prior to ocrelizumab. $ Given 11/17/2020 9:21 AM CDT 650 mg diphenhydrAMINE (Benadryl) capsule 50 mg 50 mg, Oral, ONCE, 1 dose, On Sun11/17/20 at 0915, Use IV if patient not tolerating PO Administer pre-medications 30-60 minutes prior to ocrelizumab. $ Given 11/17/2020 9:21 AM CDT 50 mg methylPREDNISolone sod succ (SOLU-Medrol) injection 100 mg 100 mg, Intravenous, ONCE, 1 dose, On Sun11/17/20 at 0915, Reconstituted solution may be given via direct IV injection over 2-5 minutes without further dilution. Administer pre-medications 30-60 minutes prior to ocrelizumab. $ Given 11/17/2020 9:21 AM CDT 100 mg ocrelizumab (Ocrevus) 600 mg in 0.9% NaCl IV 520 mL infusion 600 mg, at 0-300 mL/hr, Intravenous, CONTINUOUS, Starting on Sun11/17/20 at 0945, Until Sun11/17/20 at 1401, Rapid Titration Instructions Begin infusion at rate [...] 0.22 micron in-line filter $ New Bag/Syringe 11/17/2020 9:52 AM CDT 600 mg 100 mL/hr documented in this encounter Care Teams Supplier Quality Engineer Relationship Specialty Start Date End Date Lauren Saba APRN-DIPLOMATIC INTERPRETER [address] [place] [address] PCP - General 01/14/18 05/10/23 documented as of this encounter
--- OUTSIDE RECORDS SUMMARY | 2024-03-22 16:38 | XMS_ITS | Encounter Summary ---
Author Organization [facility] Address [address] [place] [address] Care Team Providers Care Buzzle Buffer Name Role Phone Lauren Saba Jose Eduardo KNOX-SCREEN PRINTING EQUIPMENT SETTER Primary Care Provider Reason for Visit * Reason Comments Botox Encounter Details Date Type Department Care Team (Latest Contact Info) Description 07/21/2020 9:30 AM CDT Procedure visit [facility] [facility], [place] [address] Mckayla Haywood MD [address] [place] [address] [place] [address] Intractable chronic migraine without aura [...] Sign Reading Time Taken Comments Blood Pressure 109/64 07/21/2020 9:38 AM CDT Pulse 83 07/21/2020 9:38 AM CDT Temperature 36.5 ??C (97.7 ??F) 07/21/2020 9:38 AM CD T Respiratory Rate - - Oxygen Saturation 98% 07/21/2020 9:38 AM CDT Inhaled Oxygen Concentration - - Weight 62.9 kg (138 lb 9.6 oz) 07/21/2020 9:38 A M CDT Height 165.1 cm (5' 5 ) 07/21/2020 9:38 AM CDT Body Mass Index 23.06 07/21/2020 9:38 AM CDT documented in this encounter Progress Notes * Mckayla Haywood MD - 07/21/2020 9:30 AM CDT Current Outpatient Medications Medication Sig Dispense [...] fluticasone propionate (FLONASE) 50 MCG/ACT nasal spray [place] 1 [place] into the nose ??? ibuprofen (MOTRIN) 800 [...] current facility-administered medications for this visit. BP 109/64 Pulse 83 Temp 97.7 ??F (36.5 ??C) (Temporal) Ht 5' 5 (1.651 m) Wt 138 lb 9.6 oz (62.9 kg) SpO2 98% BMI 23.06 kg/m2 Assisted by Dr. Rodriguez, resident. I was present during entire procedure. documented in this encounter Procedure Notes * Mckayla Haywood MD - 07/21/2020 9:37 AM CDTAssociated Order(s): PROC INJECTION - BOTOX Procedure(s): VT CHEMODENERV MUSC MIGRAINE Pre-Procedure Diagnose(s): Intractable chronic [...] aura, intractable, with status migrainosus Procedure code: 12652 History: Baseline number of headaches per month:30 [...] abortive treatments:sumatripan, Fioricet Date of last injection: 04/19/2020 Duration of benefit: 2-3 months Side effects [...] st Contact Info) Description 04/04/2024 8:30 AM MULTIMEDIA PROGRAMMER Office Visit [facility] - Dermatology [address] [place] [address], [place] [phone] Marlys Zaragoza MD [address] [place] [address] [address] [place] [phone] 09/03/2024 9:00 AM CDT Office Visit [facility] - Neurology [address] [place] [address], [place] [phone] Melissa Crook, LISETTE-SCREEN PRINTING EQUIPMENT SETTER [address] [place] [phone] documented as of this encounter Procedures Procedure Name Priority Date/Time Associated Diagnosis Comments VT CHEMODENERV MUSC MIGRAINE Routine 07/21/2020 9:37 AM CDT Intractable chronic 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 without status migrainosus documented in this encounter Results * VT CHEMODENERV MUSC MIGRAINE (07/21/2020 9:37 AM CDT) [...] intractable, with status migrainosus ?? Procedure code: 79984 History: Baseline number of headaches per month:30 [...] 200 Units, Intramuscular, ONCE, 1 dose, On Sun07/21/20 at 1000 $ Given 07/21/2020 10:02 AM CDT 200 Units Head documented in this encounter Care Teams Buzzle Buffer Relationship Specialty Start Date End Date Lauren Saba, SAS PROGRAMMER ANALYST-SCREEN PRINTING EQUIPMENT SETTER [address] [place] [phone] PCP - General 01/14/18 05/10/23 documented as of this encounter
--- OUTSIDE RECORDS SUMMARY | 2024-03-22 16:38 | XMS_ITS | Encounter Summary ---
Author Organization [facility] Health Address [address] [facility] [place] [address] Care Team Providers Care Associate Field Service Engineer Name Role Phone Lauren Saba Jose Eduardo KNOX-FORESTRY AIDE Primary Care Provider Reason for Visit * Reason Onset Date Comments MEDICATION REFILL 02/09/2021 Encounter Details Date Type Department Care Team (Late st Contact Info) Description 02/09/2021 Refill [facility] [address] [facility], [facility] [place] [phone] Markus Cabral MD [address] [place] [id number] MEDICATION REFILL Social History Tobacco Use Types [...] * Telephone Encounter - Lay Avitiaha - 02/09/2021 8:24 AM CST PT DOSAGE WAS INCREASED ON 02/02/21 WHEN SHE WENT TO THE ER AT [facility]. Kristan Avitia OBIOLOGY ANALYST documented in this encounter Plan of Treatment Upcoming Encounters Date Type Department Care Team (Late st Contact Info) Description 04/04/2024 8:30 AM MICROBIOLOGY ANALYST Office Visit [facility] - Dermatology [address] [place] [address], [place] [phone] Marlys Zaragoza MD [address] [place] [address] 3 [place] [phone] 09/03/2024 9:00 AM CDT Office Visit [facility] - Neurology [address] [place] [address], [place] [phone] Melissa Crook APRN-FORESTRY AIDE [address] [place] [phone] documented as of this encounter Visit Diagnoses Diagnosis Seizures (HCC) Other convulsions documented in this encounter Care Teams Associate Field Service Engineer Relationship Specialty Start Date End Date Lauren Saba APRN-FORESTRY AIDE [address] [place] [phone] PCP - General 01/14/18 05/10/23 documented as of this encounter
--- OUTSIDE RECORDS SUMMARY | 2024-03-22 16:38 | XMS_ITS | Encounter Summary ---
Author Organization [facility] Health Address [address] [place] [address] Care Team Providers Care Auditor Internal Name Role Phone Lauren Saba Jose Eduardo KNOX-LEAN COACH Primary Care Provider Reason for Visit * Reason Onset Date Comments Medication Prior Auth Request 02/09/2021 Encounter Details Date Type Department Care Team (Late st Contact Info) Description 02/09/2021 Telephone [facility] [address] [facility], [place] [address] Markus Cabral MD [address] [place] [address] Medication Prior Auth Request Social History Tobacco [...] encounter Miscellaneous Notes * Telephone Encounter - Kristan Avitia - 02/09/2021 11:58 AM CST PA INITIATED FOR VIMPAT, VIA FAX, TO [facility]. WILL AWAIT A RESPONSE WITHIN 72HRS. Kristan Avitia [employer] documented in this encounter Plan of Treatment Upcoming Encounters Date Type Department Care Team (Late st Contact Info) Description 04/04/2024 8:30 AM SUPERVISOR [employer]CIAL [employer] H[employer] Office Visit [facility] - Dermatology [address] [place] [address], [place] [phone] Marlys Zaragoza MD [address] [place] [address] 3 [place] [phone] 09/03/2024 9:00 AM CDT Office Visit [facility] - Neurology [address] [place] [address], [place] [phone] Melissa Crook APRN-LEAN COACH [address] [place] [phone] documented as of this encounter Visit Diagnoses Not on filedocumented in this encounter Care Teams Auditor Internal Relationship Specialty Start Date End Date Lauren Saba APRN-LEAN COACH [address] [place] [phone] PCP - General 01/14/18 05/10/23 documented as of this encounter
--- OUTSIDE RECORDS SUMMARY | 2024-03-22 16:38 | XMS_ITS | Encounter Summary ---
Author Organization [facility] Health Address [address] [facility] [place] [address] Care Team Providers Care Return To Service Inspector Name Role Phone Lauren Saba Jose Eduardo KNOX-NURSERY RN Primary Care Provider Reason for Visit * Reason Comments Refill Request Encounter Details Date Type Department Care Team ([facility] Contact Info) Description 02/18/2020 Refill [facility] Dermat[facility] [address] [place] [address] Ignacio Armstrong MD [address] [place] [address] Refill Request Social History Tobacco Use Types [...] Upcoming Encounters Date Type Department Care Team ([facility] Contact Info) Description 04/04/2024 8:30 AM EMT I/99 Office Visit [facility] - Dermatology [address] [place] [address], [facility] [place] [phone] Marlys Zaragoza MD [facility] [facility] 3L [place] [phone] 09/03/2024 9:00 AM CDT Office Visit [facility] - Neurology [address] [place] [address], [place] [phone] Melissa Crook APRN-NURSERY RN [address] [place] [phone] documented as of this encounter Visit Diagnoses Diagnosis Acne vulgaris Other acne documented in this encounter Care Teams Return To Service Inspector Relationship Specialty Start Date End Date Lauren Saba APRN-NURSERY RN [address] [place] [phone] PCP - General 01/14/18 05/10/23 documented as of this encounter
--- OUTSIDE RECORDS SUMMARY | 2024-03-22 16:38 | XMS_ITS | Encounter Summary ---
Author Organization [facility] Health Address [address] [facility] [place] [address] Care Team Providers Care [employer] Experimental Mechanic Name Role Phone Lauren Saba Jose Eduardo KNOX-TEA BLENDER Primary Care Provider Reason for Visit * Reason Comments Acne 6 month follow up, c omes and goes still Rash on lower legs, clear now Encounter Details Date Type Department Care Team (Late st Contact Info) Description 10/29/2020 8:20 AM CDT Office Visit [facility] General Dermatology [address] [facility], [facility] [place] [phone] [place] [address] [place] [address] 3 [place] [phone] Acne vulgaris (Primary Dx); Benign nevus; Rash and other nonspecific skin eruption; Seborrheic keratoses Social History Tobacco Use Types Packs/Day Years [...] PM CDT documented as of this encounter Patient Instructions * Patient Instructions* Jace Real MD - 10/29/2020 8:58 AM CDT Thank you for visiting the [facility] today! Please continue the following instructionsas we discussed in clinic today: 1) Your acne looks good. We will just continue you on the tretinoin cream nightly and you can do the BPO wash in the mornings. Please return to clinic in 1 year documented in this encounter Progress Notes * Jace Real MD - 10/29/2020 8:47 AM CDT Chief Complaint Patient presents with ??? Acne 6 month follow up, comes and goes still ??? Rash on lower legs, clear now HPI: Meredith Frost a 39 year old female presents for follow up of acne and rash. Patient was last seen on 05/07/20 Concerns: Acne Status of condition: Improved Current treatment: Tretinoin 0.05% cream QD, BPO wash daily Side effects of treatment: None -Patient is happy with the results of her treatment and thinks that she is at her goal for her acne. - Notes she had irritation at higher tretinoin in past Also notes new skin colored papule on L jawline. She picks at the lesion. The rash on her legs is now resolved. PE: No acute distress. Mood clear/affect appropriate. Alert and oriented. Mucous membranes moist. Sclera anicteric. Visible skin exam was conducted to include the scalp, face, lips/teeth, lids/conjunctiva, ears, neck, right and left hands and forearms and was normal with the following exceptions: -No active acne on the face -On the left jawline is a 4 mm flesh colored papule, consistent with an intradermal nevus. -On the lower extremities are few scaly brown papules with a stuck on appearance - No rash present on the lower extremities A/P: Meredith was seen today for acne and rash. Diagnoses and all orders for this visit: Acne vulgaris - Chronic, at goal - tretinoin (RETIN-A) 0.05 % cream; Apply a pea-sized amount to entire face QHS. 30 day supply. - Continue Benzyl peroxide wash each morning Benign nevus on L jawline - Benign, reassurance Rash and other nonspecific skin eruption - Ddx: Resolving GA vs nummular eczema - Resovled Seborrheic keratoses - Benign, reassurance RTC in 1 year Coding Rationale New or est? Established Patient Highest problem complexity: 1 stable chronic illness Highest level of risk: Moderate Suggested code: 53835 Jace Real MD Associated attestation - Marlys Zaragoza MD - 10/29/2020 9:29 AM CDT I have seen and examined the patient with the resident and I agree with the findings and plan of care as documented by the resident and edited by me. Date of Service: 10/29/2020 Marlys Zaragoza MD Clinical Garment Folder of Dermatology [facility] documented in this encounter Plan of Treatment Upcoming Encounters Date Type Department Care Team (Late st Contact Info) Description 04/04/2024 8:30 AM MASTER OF CEREMONIES Office Visit [facility] - Dermatology [address] [place] [address], [place] [phone] Marlys Zaragoza MD [address] [place] [address] 3[address] [place] [phone] 09/03/2024 9:00 AM CDT Office Visit [facility] - Neurology [address] [place] [address] [place] [phone] Melissa Crook, LISETTE-TEA BLENDER [address] [place] [phone] documented as of this encounter Visit Diagnoses Diagnosis Acne vulgaris- Primary Other acne Benign nevus Benign neoplasm of skin, site unspecified Rash and other nonspecific skin eruption Seborrheic keratoses documented in this encounter Care Teams Outboard Motors Experimental Mechanic Relationship Specialty Start Date End Date Lauren Saba, BALANCE TRUING INSPECTOR-TEA BLENDER [address] [place] [phone] PCP - General 01/14/18 05/10/23 documented as of this encounter
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
--- OUTSIDE RECORDS SUMMARY | 2024-03-22 16:38 | XMS_ITS | Encounter Summary ---
Author Organization [facility] Health Address [address] [facility] [place] [address] Care Team Providers Care Painter And Grader Cork Name Role Phone Lauren Saba Jose Eduardo KNOX-PLANT SAFETY LEADER Primary Care Provider Reason for Visit * Reason Comments Botox Encounter Details Date Type Department Care Team (Latest Contact Info) Description 02/14/2021 3:00 PM EX ASSISTANT/PROGRAM DIRECTOR Procedure visit [facility] Neurology [address] [place] [address], [facility] [place] [address] Mckayla Haywood MD [address] [place] [address] [place] [address] Intractable chronic migraine without aura [...] Sign Reading Time Taken Comments Blood Pressure 114/74 02/14/2021 3:12 PM EX ASSISTANT/PROGRAM DIRECTOR Pulse 96 02/14/2021 3:12 PM EX ASSISTANT/PROGRAM DIRECTOR Temperature 37 ??C (98.6 ??F) 02/14/2021 3:12 PM EX ASSISTANT/PROGRAM DIRECTOR Respiratory Rate - - Oxygen Saturation 97% 02/14/2021 3:12 PM EX ASSISTANT/PROGRAM DIRECTOR Inhaled Oxygen Concentration - - Weight 66.2 kg (146 lb) 02/14/2021 3:12 PM EX ASSISTANT/PROGRAM DIRECTOR Height 165.1 cm (5' 5 ) 02/14/2021 3:12 PM EX ASSISTANT/PROGRAM DIRECTOR Body Mass Index 24.3 02/14/2021 3:12 PM EX ASSISTANT/PROGRAM DIRECTOR documented in this encounter Progress Notes * Mckayla Haywood MD - 02/14/2021 3:00 PM CST Briefly, the patient has a long history of chronic migraine, which has been unresponsive to multiple medications. She has nausea and light sensitivity with headaches. [...] fluticasone propionate (FLONASE) 50 MCG/ACT nasal spray [place] 1 [place] into the nose ??? ibuprofen (MOTRIN) 800 MG tablet Take 1 tablet by mouth 2 times daily as needed For headache. 60 tablet 5 ??? lacosamide (VIMPAT) 100 MG tablet Take 2 (two) tablets by mouth 2 times daily 120 tablet 5 ??? mirabegron ER 24hr (MYRBETRIQ) 50 MG tablet Take 1 (one) tablet by mouth once daily 30 tablet 3 ??? Ocrelizumab (OCREVUS IV) 600 [...] bedtime 150 capsule 6 Current Facility-Administered Medications Medication Dose Route Frequency Provider Last Rate Last Admin ??? ARIPiprazole ER (Abiliflenore Maintena) prefilled syringe 300 mg 300 mg Intramuscular q30 days Venkata Glez MD 300 mg at 01/12/21 1024 BP 114/74 Pulse 96 Temp 98.6 ??F (37 ??C) (Temporal) Ht 5' 5 (1.651 m) Wt 146 lb (66.2 kg) SpO2 97% BMI 24.3 kg/m2 CN: Extraocular movements intact Motor: Moves all extremities symmetrically Diagnosis: Chronic migraine without aura,intractable, Without status migrainosus Administer Botox for chronic migraine today. See procedure note for details. Follows in MS clinic and Epilepsy clinic. ASSISTANT/PROGRAM DIRECTOR documented in this encounter Procedure Notes * Mckayla Haywood MD - 02/14/2021 3:06 PM CSTAssociated Order(s): PROC INJECTION - BOTOX Procedure(s): ID CHEMODENERV MUSC MIGRAINE Pre-Procedure Diagnose(s): Intractable chronic 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 without status migrainosus Post-Procedure Diagnose(s): Intractable chronic 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 without status migrainosus Patient's identity confirmed by having patient say first and last name, and date of . Diagnosis: Chronic migraine Procedure code: 13970 History: Baseline number of headaches per month:30 Current headaches per month:5 Number of headache hours per day (baseline): 12 Number of headache hour per day (current): 1 Associated symptoms (baseline): Moderate to severe pain, nausea, vomiting, photophobia, phonophobia. Associated symptoms (current): Moderate pain, nausea, photophobia, phonophobia. The patient has had significant benefit from Botox with a 50% reduction in headache frequency and severity. Current migraine prophylactic medications: Current migraine abortive treatments: Date of last injection: 11/01/2020 Duration of benefit: 2-3 months Side effects [...] treatment. Ordered 200 units for next visit. ASSISTANT/PROGRAM DIRECTOR documented in this encounter Plan of Treatment Upcoming Encounters Date Type Department Care Team (Late st Contact Info) Description 04/04/2024 8:30 AM EX ASSISTANT/PROGRAM DIRECTOR Office Visit [facility] - Dermatology [address] [place] [address], [place] [phone] Marlys Zaragoza MD [address] [place] [address] 3 [place] [phone] 09/03/2024 9:00 AM CDT Office Visit [facility] - Neurology [address] [place] [phone] Melissa Crook, MERCHANDISE APPRAISER-PLANT SAFETY LEADER [address] [place] [phone] documented as of this encounter Procedures Procedure Name Priority Date/Time Associated Diagnosis Comments ID CHEMODENERV [facility]IG[facility] Routine 02/14/2021 3:06 PM EX ASSISTANT/PROGRAM DIRECTOR Intractable chronic 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 without status migrainosus documented in this encounter Results * ID CHEMODENERV [facility] MIGRAINE (02/14/2021 3:06 PM EX ASSISTANT/PROGRAM DIRECTOR) Narrative Mckayla Haywood MD - 02/14/2021 3:06 PM EX ASSISTANT/PROGRAM DIRECTOR Mckayla Haywood MD ? 02/14/2021 ??3:51 PM Patient's identity confirmed by having patient say first and last name, and date of . Diagnosis: Chronic migraine Procedure code: 68284 History: Baseline number of headaches per month:30 [...] 200 Units, Intramuscular, ONCE, 1 dose, On 02/14/21 at 1515 $ Given 02/14/2021 3:51 PM EX ASSISTANT/PROGRAM DIRECTOR 200 Units Head documented in this encounter Care Teams Painter And Grader Cork Relationship Specialty Start Date End Date Lauren Saba, MERCHANDISE APPRAISER-PLANT SAFETY LEADER [address] [place] [phone] PCP - General 01/14/18 05/10/23 documented as of this encounter
--- OUTSIDE RECORDS SUMMARY | 2024-03-22 16:38 | XMS_ITS | Encounter Summary ---
Author Organization [facility] Health Address [address] [facility] [place] [address] Care Team Providers Care Toll Booth Operator Name Role Phone Lauren Saba LISETTE-AD COPY WRITER Primary Care Provider Encounter Details Date Type Department Care Team (Latest Contact Info) Description 03/17/2020 Travel Social History Tobacco Use Types Packs/Day [...] COVID-19? No / Unsure 03/17/2020 11:12 AM HIGH SCHOOL COACH documented as of this encounter Plan of Treatment Upcoming Encounters Date Type Department Care Team (Late st Contact Info) Description 04/04/2024 8:30 AM HIGH SCHOOL COACH Office Visit [facility] - Dermatology [address] [place] [address], [place] [phone] Marlys Zaragoza MD [address] [place] [address] 3 [place] [phone] 09/03/2024 9:00 AM CDT Office Visit [facility] - Neurology [facility] [place] [phone] Melissa Crook APRN-NAIF [address] [place] [phone] documented as of this encounter Visit Diagnoses Not on filedocumented in this encounter Care Teams Toll Booth Operator Relationship Specialty Start Date End Date Lauren Saba APRN-AD COPY WRITER [address] [place] [phone] PCP - General 01/14/18 05/10/23 documented as of this encounter
--- OUTSIDE RECORDS SUMMARY | 2024-03-22 16:38 | XMS_ITS | Encounter Summary ---
Author Organization [facility] Health Address [address] [facility] [place] [address] Care Team Providers Care Linux Network Engineer Name Role Phone Lauren Saba Jose Eduardo KNOX-CALL CENTER SPECIALIST Primary Care Provider Reason for Visit * Radiology Services (Routine) - Closed Specialty Diagnoses / Procedures Referred By Nicole shipley Referred To Contact MRI Diagnoses MS (multiple sclerosis) (HCC) Procedures MRI CERVICAL SPINE WWO CONT Markus Cabral MD [address] [place] [id number] [facility] Mri [address] [place] [address] Referral ID Status Reason Start Date Expiration Date Visits Re quested Visits Authorized [id number] Closed 11/02/2020 05/01/2021 1 1 Encounter Details Date Type Department Care Team (Latest Contact Info) Description 11/08/2020 6:13 AM CDT - 11/08/2020 11:59 PM CDT Hospital Encounter [facility] MRI [address] [place] [phone] Markus Cabral MD [address] [place] [address] Discharge Disposition: Home or Self Care [...] baclofen (LIORESAL) 10 MG tabletIndications:MS (multiple sclerosis) (HCC),Vitamin D deficiency,High risk medication use,Nonintractable epilepsy without [...] fluticasone propionate (FLONASE) 50 MCG/ACT nasal spray [place] 1 [place] into the nose 03/05/2014 04/11/2021 ibuprofen (MOTRIN) [...] st Contact Info) Description 04/04/2024 8:30 AM FACE MAN Office Visit [facility] - Dermatology [address] [place] [address], [place] [address] Marlys Zaragoza MD [address] [place] [address] 3 [place] [phone] 09/03/2024 9:00 AM CDT Office Visit [facility] - Neurology [address] [facility], [place] [address] StalinceMelissa schuster, WOOD FLOOR LAYER-CALL CENTER SPECIALIST [address] [place] [address] documented as of this encounter Procedures Procedure Name Priority Date/Time Associated Diagnosis Comments MRI CERVICAL SPINE WWO CONT Routine 11/08/2020 7:41 AM CDT MS (multiple sclerosis) ([facility]) documented in this encounter Results * MRI [...] bilaterally. Report dictated by Devan Delgado MD (senior resident care director). I, Dr. MELVI MARINELLI have personally reviewed [...] bilaterally. Report dictated by Devan Delgado MD (senior resident care director). I, Dr. MELVI MARINELLI have personally reviewed and interpreted this examination/study. This report was electronically signed by MELVI MARINELLI on 11/09/2020 1:20 PM. Markus Cabral MD MR ORDERABLES documented in this encounter Visit Diagnoses Diagnosis MS (multiple sclerosis) (HCC) Multiple sclerosis documented in this encounter Care Teams Linux Network Engineer Relationship Specialty Start Date End Date Lauren Saba, WOOD FLOOR LAYER-CALL CENTER SPECIALIST [address] [place] [phone] PCP - General 01/14/18 05/10/23 documented as of this encounter
--- OUTSIDE RECORDS SUMMARY | 2024-03-22 16:38 | XMS_ITS | Encounter Summary ---
Author Organization [facility] Health Address [address] [facility] [place] [address] Care Team Providers Care Materials Coordinator Name Role Phone Lauren Saba Jose Eduardo KNOX-GREASE PRESS HELPER Primary Care Provider Reason for Visit * Reason Comments Botox Encounter Details Date Type Department Care Team (Latest Contact Info) Description 04/19/2020 8:30 AM ASSEMBLER BILLIARD TABLE Procedure visit [facility] Neurology [address] [place] [address], [facility] [place] [address] Mckayla Haywood MD [address] [place] [address] [place] [address] Intractable chronic migraine without aura [...] Sign Reading Time Taken Comments Blood Pressure 115/76 04/19/2020 8:30 AM ASSEMBLER BILLIARD TABLE Pulse 100 04/19/2020 8:30 AM ASSEMBLER BILLIARD TABLE Temperature 36.4 ??C (97.6 ??F) 04/19/2020 8:30 AM CS T Respiratory Rate - - Oxygen Saturation 99% 04/19/2020 8:30 AM ASSEMBLER BILLIARD TABLE Inhaled Oxygen Concentration - - Weight 61.7 kg (136 lb) 04/19/2020 8:30 AM ASSEMBLER BILLIARD TABLE Height 162.6 cm (5' 4 ) 04/19/2020 8:30 AM ASSEMBLER BILLIARD TABLE Body Mass Index 23.34 04/19/2020 8:30 AM ASSEMBLER BILLIARD TABLE documented in this encounter Progress Notes * Mckayla Haywood MD - 04/19/2020 8:34 AM CST Current Outpatient Medications Medication Sig Dispense Refill ??? ABILIFY MAINTENA 300 MG injection Inject 1.5 mL into muscle every 28 days Reasons: Unspecified Psychosis. Behavioral Disturbances in Dementia 1 Each 11 ??? albuterol HFA (PROVENTIL;VENTOLIN;PROAIR) 108 (90 BASE) MCG/ACT inhaler Inhale 2 Puffs by mouthevery 6 hours ??? Albuterol Sulfate (PROAIR RESPICLICK) 108 (90 Base) MCG/ACT ??? ALPRAZolam (XANAX) 0.5 MG tablet Take 0.5 mg by mouth ??? baclofen (LIORESAL) 10 MG tablet Take 1 tablet by mouth 2 times daily May cause drowsiness. 60 tablet 5 ??? benzoyl peroxide (BENZAC) 10 % wash Wash face and body with once daily 148 mL 5 ??? budesonide-formoterol (SYMBICORT) 160-4.5 MCG/ACT inhaler INHALE 2 PUFFS BY MOUTH TWICE DAILY ??? rbcucocuqq-nubmzhoxvubxa-rezqlbxc (FIORICET) 50-325-40 MG tablet TAKE 1 TABLET BY MOUTH EVERY 4HOURS NEEDED FOR HEADACHE(NO ADITIONAL TYLENOL) 30 tablet 3 ??? clindamycin (CLEOCIN) 300 MG capsule TK 1 C PO Q 6 H FOR 10 DAYS ??? erythromycin (ERYDERM) 2 % solution Apply 1-2 times daily to entire face 60 mL 11 ??? escitalopram (LEXAPRO) 20 MG tablet TAKE 1 TABLET BY MOUTH EVERY DAY 90 tablet 0 ??? fluticasone propionate (FLONASE) 50 MCG/ACT nasal spray [place] 1 [place] into the nose ??? halobetasol (ULTRAVATE) 0.05 % cream Apply to rash on lower legs up to twice daily. 30 days supply. 30 g 1 ??? ibuprofen (MOTRIN) 800 MG tablet Take 1 tablet by mouth 2 times daily as needed For headache. 60 tablet 5 ??? Ocrelizumab (OCREVUS IV) 600 mg by Intravenous route Reasons: every 6 months ??? onabotulinumtoxin A (BOTOX) 100 units injection Inject 200 Units into muscle Every 90 days Reasons: Migraine Headache 2 Each 3 ??? SUMAtriptan (IMITREX) 50 MG tablet sumatriptan 50 mg tablet ??? tretinoin (RETIN-A) 0.05 % cream Apply a pea-sized amount to entire face QHS. 30 day supply. 45g 5 ??? zonisamide (ZONEGRAN) 100 MG capsule Take 5 capsules by mouth at bedtime 150 capsule 5 No current facility-administered medications for this visit. BP 115/76 Pulse 100 Temp 97.6 ??F (36.4 ??C) (Oral) Ht 5' 4 (1.626 m) Wt 136 lb (61.7 kg) SpO2 99%BMI 23.34 kg/m2 Sinus tachycardia. MBLER BILLIARD TABLE documented in this encounter Procedure Notes * Mckayla Haywood MD - 04/19/2020 8:59 AM CSTAssociated Order(s): PROC INJECTION - BOTOX Procedure(s): AR CHEMODENERV MUSC MIGRAINE Pre-Procedure Diagnose(s): Intractable chronic [...] aura, intractable, with status migrainosus Procedure code: 59067 History: Baseline number of headaches per month: [...] abortive treatments:Sumatriptan, Fioricet Date of last injection: 01/12/2020 Duration of benefit: 2-3 months Side effects [...] treatment. Ordered 200 units for next visit. MBLER BILLIARD TABLE documented in this encounter Plan of Treatment Upcoming Encounters Date Type Department Care Team (Late st Contact Info) Description 04/04/2024 8:30 AM ASSEMBLER BILLIARD TABLE Office Visit [facility] - Dermatology [address] [place] [address], [place] [phone] Marlys Zaragoza MD [address] [place] [address] [address] [place] [phone] 09/03/2024 9:00 AM CDT Office Visit [facility] - Neurology [address] [place] [address], [place] [phone] Melissa Crook APRN-GREASE PRESS HELPER [address] [place] [phone] documented as of this encounter Procedures Procedure Name Priority Date/Time Associated Diagnosis Comments AR CHEMODENERV MUSC MIGRAINE Routine 04/19/2020 8:59 AM ASSEMBLER BILLIARD TABLE Intractable chronic 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 without status migrainosus documented in this encounter Results * AR CHEMODENERV [place] MIGRAINE (04/19/2020 8:59 AM ASSEMBLER BILLIARD TABLE) Narrative Mckayla Haywood MD - 04/19/2020 8:59 AM ASSEMBLER BILLIARD TABLE Mckayla Haywood MD ? 04/19/2020 ??9:06 AM [...] intractable, with status migrainosus ?? Procedure code: 42064 History: Baseline number of headaches per month: [...] treatment. Ordered 200 units for next visit. Aninda B Yobany MD PROCEDURE/MINOR SURG ICAL ORDERABLES documented in this encounter Visit Diagnoses Diagnosis Intractable chronic 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 without status migrainosus- Primary Chronic migraine without aura, with intractable migraine, so stated, without mention of status migrainosus documented in this encounter Administered Medications Inactive Administered Medications - up to 3 most recent administrations Medication Order MAR Action Action Date Dose Rate Site onabotulinumtoxin A (BOTOX) injection 200 Units 200 Units, Intramuscular, ONCE, 1 dose, On Sun04/19/20 at 0900 $ Given 04/19/2020 9:01 AM ASSEMBLER BILLIARD TABLE 200 Units Head documented in this encounter Care Teams Materials Coordinator Relationship Specialty Start Date End Date Lauren Saba, POLITICAL AIDE-GREASE PRESS HELPER [address] [place] [phone] PCP - General 01/14/18 05/10/23 documented as of this encounter
--- OUTSIDE RECORDS SUMMARY | 2024-03-22 16:39 | XMS_ITS | Encounter Summary ---
Author Organization [facility] Health Address [address] [facility] [place] [address] Care Team Providers Care Mechanical Operator Name Role Phone Lauren Saba Primary Care Provider Encounter Details Date Type Department Care Team (Latest Contact Info) Description 05/16/2019 11:45 AM TUNNELLER - 05/16/2019 11:59 PM [facility] Hospital Encounter [facility] DRAW STATION [address] [place] [address] Alesia Vazquez, LISETTE-CHEMICAL PLANT OPERATOR SUPERVISOR [address] [place] [phone] Discharge Disposition: Home or Self Care Social [...] End Date ABILIFY MAINTENA 300 MG injectionIndications: Schizophrenia, paranoid, chronic (HCC) Inject 1.5 mL into muscle every 28 days 1 Each 3 03/17/2019 05/20/2019 albuterol HFA (PROVENTIL;VENTOLIN;P ROAIR) 108 (90 BASE) MCG/ACT inhaler Inhale 2 Puffs by mouth every 6 hours 03/05/2014 04/11/2021 Albuterol Sulfate (PROAIR RESPICLICK) 108 (90 Base) MCG/ACT 2020 baclofen (LIORESAL) 10 MG tabletIndications:MS (multiple sclerosis) ([facility]),Vitamin D deficiency,High risk medication use,Nonintractable epilepsy without status epilepticus, unspecified epilepsy type ([facility]),Mild cognitive impairment,Intractabl e chronic 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 without status migrainosus,Spasticit y Take 1 tablet by mouth 2 times daily May cause drowsiness. 60 tablet 5 12/20/2018 08/04/2019 benzoyl peroxide (BENZAC) 10 % washIndications:Acne vulgaris Wash face and body with once daily 1 bottles 11 11/07/2018 02/02/2020 budesonide-formoterol (SYMBICORT) 160-4.5 MCG/ACT inhaler INHALE 2 PUFFS BY MOUTH TWICE DAILY 04/11/2021 butalbital-acetaminop hen-caffeine (FIORICET) 50-325-40 MG tabletIndications:Non intractable epilepsy without status epilepticus, unspecified epilepsy type ([facility]) TAKE 1 TABLET BY MOUTH EVERY 4 HOURS NEEDED FOR HEADACHE(NO ADITIONAL TYLENOL) 30 tablet 3 04/24/2019 05/07/2020 erythromycin (ERYDERM) 2 % solutionIndications:A cne vulgaris Apply 1-2 times daily to entire face 60 mL 11 11/07/2018 02/02/2020 escitalopram (LEXAPRO) 20 MG tabletIndications:René or depressive disorder, remission status unspecified, unspecified whether recurrent TAKE 1 TABLET BY MOUTH EVERY DAY 90 tablet 3 03/28/2019 05/20/2019 fluticasone propionate (FLONASE) 50 MCG/ACT nasal spray [place] 1 [place] into the nose 03/05/2014 04/11/2021 ibuprofen (MOTRIN) 800 MG tabletIndications: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) TAKE 1 TABLET BY MOUTH TWICE DAILY NEEDED FOR HEADACHE 60 tablet 5 05/05/2019 10/31/2019 levETIRAcetam (KEPPRA) 500 MG tabletIndications:Non intractable epilepsy without status epilepticus, unspecified epilepsy type (HCC),Medication monitoring encounter Take 1 tablet by mouth 2 times daily 60 tablet 5 05/16/2019 06/02/2019 Ocrelizumab (OCREVUS IV)Indications:every 6 months 600 mg by Intravenous route Reasons: every 6 months 04/11/2021 onabotulinumtoxin A (BOTOX) 100 units injectionIndications: Migraine Inject 200 Units into muscle Every 90 days Reasons: Migraine Headache 2 Each 3 10/21/2018 07/09/2019 SUMAtriptan (IMITREX) 50 MG tablet sumatriptan 50 mg tablet 10/29/2020 tretinoin (RETIN-A) 0.01 % gel Pea sized amount to entire face at night. 30 days supply. 45 g 3 12/17/2018 06/05/2019 tretinoin (RETIN-A) 0.1 % cream Pea sized amount to entire face at night. 30 days supply. 45 g 3 11/14/2018 02/02/2020 zonisamide (ZONEGRAN) 100 MG capsuleIndications:No nintractable epilepsy without status epilepticus, unspecified epilepsy type (HCC),Medication monitoring encounter Take 4 capsules by mouth at bedtime 120 capsule 5 05/16/2019 06/02/2019 documented as of this encounter Plan of Treatment Upcoming Encounters Date Type Department Care Team (Late st Contact Info) Description 04/04/2024 8:30 AM TUNNELLER Office Visit [facility] - Dermatology [address] [place] [phone] Marlys Zaragoza MD [address] [place] [address] 3 [place] [phone] 09/03/2024 9:00 AM CDT Office Visit [facility] - Neurology [address] [place] [phone] Melissa Crook, WAREHOUSE RECEIVER-CHEMICAL PLANT OPERATOR SUPERVISOR [address] [place] [address] [phone] (work) documented as of this encounter Procedures Procedure Name Priority Date/Time Associated Diagnosis Comments LEVETIRACETAM LEVEL Routine 05/16/2019 1 1:59 AM TUNNELLER Medication monitoring encounter Nonintractable epilepsy without status epilepticus, unspecified epilepsy type (HCC) ZONISAMIDE LEVEL Routine 05/16/2019 11:5 9 AM TUNNELLER Nonintractable epilepsy without status epilepticus, unspecified epilepsy type (HCC) Medication monitoring encounter documented in this encounter Results * ZONISAMIDE LEVEL (05/16/2019 11:59 AM TUNNELLER) Zonisamide 14.2 10.0 - 40.0 ug/mL 05/19/2019 12:08 PM TUNNELLER [facility] ([facility]) Comment: This test was developed and its performance characteristics determined by [facility]. It has not been cleared or approved by the Food and Drug Administration. ?Detection Limit = 1.0 Blood BLOOD SPECIMEN / Unknown Lab Venipuncture / Unknown 05/16/2019 11:59 AM TUNNELLER 05/16/2019 12:30 PM TUNNELLER Narrative [facility] ([facility]) - 05/19/2019 12:08 PM TUNNELLER Performed at: ??01 - [address] ??[id number] Manager Medicaid: Ro Lundberg MD, Phone: ??[phone] Alesia Vazquez APRN-CHEMICAL PLANT OPERATOR SUPERVISOR LAB - CHEMISTR Y ORDERABLES [facility] ([facility]) [address] [place] [address] * LEVETIRACETAM LEVEL (05/16/2019 11:59 AM TUNNELLER) Levetiracetam 17.5 10.0 - 40.0 ug/mL 05/19/2019 9:08 AM TUNNELLER [facility] ([facility]) Comment: This test was developed and its performance characteristics determined by [facility]. It has not been cleared or approved by the Food and Drug Administration. Blood BLOOD SPECIMEN / Unknown Lab Venipuncture / Unknown 05/16/2019 11:59 AM TUNNELLER 05/16/2019 12:30 PM TUNNELLER Narrative [facility] ([facility]) - 05/19/2019 9:08 AM TUNNELLER Performed at: ??01 - [facility] ??[id number] Manager Medicaid: Ro Lundberg MD, Phone: ??[phone] Alesia [facility] LAB - THERAPEU TIC DRUG MONITORING ORDERABLES [facility] ([facility]) [address] [place] [address] documented in this encounter Visit Diagnoses Diagnosis Medication monitoring encounter- Primary Encounter for therapeutic drug monitoring Nonintractable epilepsy without status epilepticus, unspecified epilepsy type (HCC) documented in this encounter Care Teams Mechanical Operator Relationship Specialty Start Date End Date Lauren Saba APRN-CNP [address] [place] [phone] PCP - General 01/14/18 05/10/23 documented as of this encounter
--- OUTSIDE RECORDS SUMMARY | 2024-03-22 16:39 | XMS_ITS | Encounter Summary ---
Author Organization [facility] Health Address [address] [place] [address] Care Team Providers Care Detention Worker Name Role Phone Lauren Saba LISETTE-CYTOLOGY TEACHER Primary Care Provider Encounter Details Date Type Department Care Team (Latest Contact Info) Description 09/10/2019 Travel Social History Tobacco Use Types Packs/Day [...] or suspected to have Coronavirus / COVID-19? Unable to assess 09/10/2019 12:43 PM CDT documented as of this encounter Plan of Treatment Upcoming Encounters Date Type Department Care Team (Late st Contact Info) Description 04/04/2024 8:30 AM INSTRUCTIONAL DESIGN MANAGER Office Visit [facility] - Dermatology [address] [place] [address], [place] [phone] Marlys Zaragoza MD [address] [place] [address] 3 [place] [phone] 09/03/2024 9:00 AM CDT Office Visit [facility] - [facility]rology [facility] [place] [phone] Melissa Crook APRN-NAIF [address] [place] [phone] documented as of this encounter Visit Diagnoses Not on filedocumented in this encounter Care Teams Detention Worker Relationship Specialty Start Date End Date Lauren Saba APRN-CYTOLOGY TEACHER [address] [place] [phone] PCP - General 01/14/18 05/10/23 documented as of this encounter
--- OUTSIDE RECORDS SUMMARY | 2024-03-22 16:39 | XMS_ITS | Encounter Summary ---
Author Organization [facility] Health Address [address] [place] [address] Care Team Providers Care Filter Tank Tender Helper Name Role Phone Lauren Saba Jose Eduardo KNOX-ZIGZAG MACHINE OPERATOR Primary Care Provider Reason for Referral * Radiology Services (Routine) - Closed Specialty Diagnoses / Procedures Referred By Nicole t Referred To Contact MRI Diagnoses Multiple sclerosis (HCC) Procedures MRI BRAIN WWO CONTRAST Markus Cabral MD [address] [place] [phone] [facility] Mri [address] [place] [address] Referral ID Status Reason Start Date Expiration Date Visits Re quested Visits Authorized [id number] Closed 09/08/2019 03/06/2020 1 1 Encounter Details Date Type Department Care Team (Late st Contact Info) Description 09/01/2019 10:00 AM CDT Office Visit [facility] [address] [place] [address] Markus Cabral MD [address] [place] [address] Multiple sclerosis (HCC) (Primary Dx) Social History Tobacco Use [...] have Coronavirus / COVID-19? No / Unsure 09/01/2019 11:22 AM CDT documented as of this encounter Last Filed Vital Signs Vital Sign Reading Time Taken Comments Blood Pressure 107/76 09/01/2019 10:31 AM CDT Pulse 67 09/01/2019 10:31 AM CDT Temperature 36.2 ??C (97.2 ??F) 09/01/2019 10:31 AM C DT Respiratory Rate - - Oxygen Saturation 99% 09/01/2019 10:31 AM CDT Inhaled Oxygen Concentration - - Weight 63.1 kg (139 lb 1.9 oz) 09/01/2019 10:31 AM CDT Height 165.1 cm (5' 5 ) 09/01/2019 10:31 AM CDT Body Mass Index 23.15 09/01/2019 10:31 AM CDT documented in this encounter Progress Notes * Markus Cabral MD - 09/01/2019 11:18 AM CDT [facility] Markus Cabral MD Date: 09/01/2019 Referring Physician: Mckayla Haywood MD [address] [facility] [place] [address] Chief Complaint: No chief complaint on file. Follow up for MS HPI: Ms. Meredith Frost is a 38 year old female seen for follow up regarding multiple sclerosis. Her MS history is summarized below: REVIEW OF SYSTEMS: Constitutional: no fever, night [...] Easy bleeding, easy bruising. Past Medical History: No past medical history on file. Family History: Family History Problem Relation Name Age of Onset ??? Depression Neg Hx ??? Seizures Neg Hx Social History: Social History Socioeconomic [...] file Gets together: Not on file Attends scientologist service: Not on file Active member of [...] (PROAIR RESPICLICK) 108 (90 Base) MCG/ACT ??? baclofen (LIORESAL) 10 MG tablet ??? benzoyl peroxide (BENZAC) 10 % wash ??? budesonide-formoterol (SYMBICORT) 160-4.5 MCG/ACT inhaler ??? btyjrwstfs-oppazjoqwrrqo-fpxakxam (FIORICET) 50-325-40 MG tablet ??? erythromycin (ERYDERM) 2 % solution ??? escitalopram (LEXAPRO) 20 MG tablet ??? fluticasone propionate (FLONASE) 50 MCG/ACT nasal spray ??? ibuprofen (MOTRIN) 800 MG tablet ??? Ocrelizumab (OCREVUS IV) ??? onabotulinumtoxin A (BOTOX) 100 units injection ??? SUMAtriptan (IMITREX) 50 MG tablet ??? tretinoin (RETIN-A) 0.01 % gel ??? tretinoin (RETIN-A) 0.1 % cream ??? zonisamide (ZONEGRAN) 100 MG capsule No current facility-administered medications for this visit. GENERAL PHYSICAL EXAM: Constitutional: BP 107/76 Pulse 67 Temp 97.2 ??F (36.2 ??C) (Oral) Ht 5' 5 (1.651 m) Wt 139 lb 1.9oz (63.1 kg) SpO2 99% BMI 23.15 kg/m2 Neuro Exam: Mental Status Awake, alert. Language (naming, repetition, fluency) intact Cranial Nerves CN II : Visual huber are full. APD:OS CN III, IV, EOMI, DK, No ANIA, No Nystagmus CN V normal facial sensation CN VII no facial weakness CN VIII Auditory acuity intact CN IX, X palate elevates in midline CN XI normal strength of sternocleidomastoid and trapezius CN XIII tongue is midline Sensory intact touch Reflexes DTRs UE 2+ LE : 3+ Plantar response: Toes: both go up Motor Power: UE 5/5 LE 5/5 Bulk and tone: Finger taps and foot taps: foot taps are slow Coordination/ Cerebellar Finger to nose test:nromal Romberg's test : positive Gait: ataxic, wide based Timed 25 foot walk: 4.5 seconds Review of records: Labs MRI : Reviewed MRIs from 06/2018 Assessment: Encounter Diagnosis Name Primary? Multiple sclerosis Yes Recommendation: Ms. Meredith Frost is a 38 year old female seen for follow up regarding multiple sclerosis. 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 On ocrevus since 2016. Tolerated well. She ahs extensive lesion load and disability that was accumulated before ocrevus.resulting in loss of balance and cognitive decline. Currentlys stable. Plan: Check, CBC, CMP, IgG levels today Will continue Ocrevus if labs are in expected range. Benudle For Oct 2019 Will need follow up MRI brain wwo. Ordered. Disucssed with her and sister that benefit of ocrevus outweighs any potential effects of covid 19 if contracted. So far data is reassuring. On Zonisamide for CPS. Continue. Follow up with headache neurology. Return to clinic in 6 months, before Apr 2020 ocrevus infusion I spent 40 minutes during this visit with >50 % of the time spent on counseling and coordinationof care. Signature: Markus Cabral MD Opening Machine Cleaner of Neurology Neuroimmunology & [facility] documented in this encounter Plan of Treatment Upcoming Encounters Date Type Department Care Team (Late st Contact Info) Description 04/04/2024 8:30 AM SIZING SPRAYER Office Visit [facility] - Dermatology [address] [place] [address], [place] [phone] Marlys Zaragoza MD [address] [place] [address] 3 [place] [phone] 09/03/2024 9:00 AM CDT Office Visit [facility] - Neurology [address] [place] [address], [place] [phone] Melissa Crook, SEC REPORTING CONSULTANT-ZIGZAG MACHINE OPERATOR [address] [place] [address] Scheduled Orders Name Type Priority Associated Diagnoses Orde r Schedule IMMUNOGLOBULINS IGG/IGM/IGA PANEL Lab Routine Multiple sclerosis (HCC) Ordered: 09/01/2019 documented as of this encounter Results * MRI BRAIN WWO CONTRAST (09/25/2019 8:12 AM CDT) Anatomical Region Laterality Modality Head Magnetic Resonan ce 09/25/2019 10:3 8 AM CDT Impressions 09/25/2019 2:58 PM CDT IMPRESSION: Multiple intracranial white matter lesions compatible with multiple sclerosis. No new T2 lesions and no new enhancing lesions to suggest active demyelination. Moderate parenchymal volume loss, advanced for the patient's stated age. Dictated by Francisca Baeza M.D. (residential solar consultant). This report was approved ??by Francisca Baeza ?? on 09/25/2019 2:58 PM . I, Dr. DAMON TOWNSEND have personally reviewed and interpreted this examination/study. This report was electronically signed by DAMON TOWNSEND ??on 09/25/2019 2:58 PM . Narrative 09/25/2019 2:58 PM CDT MRI BRAIN WWO CONTRAST DATE: 09/25/2019 8:13 AM EXAMINATION: Magnetic resonance imaging (MRI) of the brain without and with contrast HISTORY: G35: Multiple sclerosis TECHNIQUE: MRI of the brain was performed prior to and following the uneventful administration of 6 mL intravenous GADAVIST contrast according to a demyelination protocol. COMPARISON: MRI of the brain from 07/15/2018 FINDINGS: No evidence of acute or chronic hemorrhage is identified. No evidence of acute cerebral infarction is seen. There is diffuse cerebral volume loss with associated ex vacuo ventricular dilatation. No mass effect or midline shift is seen. There are multiple foci of hyperintensity on T2 and FLAIR within the white matter, compatible with the clinical diagnosis of multiple sclerosis. T2/FLAIR hyperintense lesions are seen in the corpus callosum, diffusely involving the callosal septal margin and the periventricular white matter appear similar in extent to the prior. Several of these lesions demonstrate T1 hypointensity consistent with myelin vacuolization. No enhancing lesions are identified to suggest active demyelination. The sella appears normal. The posterior fossa, brainstem, and craniocervical junction appear grossly stable. The visualized portions of the orbits, paranasal sinuses, and mastoids appear normal. Normal flow voids are demonstrated in the carotid arteries and basilar artery. The calvarium and visualized cervical spine appear normal. Procedure Note Damon Townsend MD - 09/25/2019 MRI BRAIN WWO CONTRAST DATE: 09/25/2019 8:13 AM EXAMINATION: Magnetic resonance imaging (MRI) of the brain without and with contrast HISTORY: G35: Multiple sclerosis TECHNIQUE: MRI of the brain was performed prior to and following the uneventful administration of 6 mL intravenous GADAVIST contrastaccording to a demyelination protocol. COMPARISON: MRI of the brain from 07/15/2018 FINDINGS: No evidence of acute or chronic hemorrhage is identified. No evidence of acute cerebral infarction is seen. There is diffuse cerebral volume loss with associated ex vacuo ventricular dilatation. No mass effect ormidline shift is seen. There are multiple foci of hyperintensity on T2 and FLAIR within the white matter, compatible with the clinical diagnosis of multiple sclerosis. T2/FLAIR hyperintense lesions are seen in the corpus callosum, diffusely involving the callosal septal margin and the periventricular white matter appear similar in extent to the prior. Several of these lesions demonstrate T1 hypointensity consistent with myelin vacuolization. No enhancing lesions are identified to suggest active demyelination. The sella appears normal. The posterior fossa, brainstem, and craniocervical junction appear grossly stable. The visualized portions of the orbits, paranasal sinuses, and mastoids appear normal. Normal flow voids are demonstrated in the carotidarteries and basilar artery. The calvarium and visualized cervical spine appear normal. IMPRESSION: Multiple intracranial white matter lesions compatible with multiple sclerosis. No new T2 lesions and no new enhancing lesions to suggest active demyelination. Moderate parenchymal volume loss, advanced for the patient's stated age. Dictated by Francisca Baeza M.D. (residential solar consultant). This report was approved by Francisca Baeza on 09/25/2019 2:58 PM . I, Dr. DAMON TOWNSEND have personally reviewed and interpreted this examination/study. This report was electronically signed by DAMON TOWNSEND on09/25/2019 2:58 PM . Markus Cabral MD MR ORDERABLES * (ABNORMAL) COMPREHENSIVE METABOLIC PANEL (09/01/2019 11:28 AM [facility][NOTE 3]) BUN 16 7 - 26 mg/dL 09/01/2019 12:00 PM [facility] Creatinine 0.8 0.6 - 1.2 mg/dL 09/01/2019 12:00 PM [facility] Sodium 142 136 - 145 mmol/L 09/01/2019 12:00 PM [facility] Potassium 4.6(H) 3.5 - 4.5 mmol/L 09/01/2019 12:00 PM [facility] Chloride 110(H) 98 - 107 mmol/L 09/01/2019 12:00 PM [facility] CO2 23 22 - 29 mmol/L 09/01/2019 12:00 PM [facility] Glucose 95 70 - 115 mg/dL 09/01/2019 12:00 PM [facility] Calcium 9.5 8.4 - 10.2 mg/dL 09/01/2019 12:00 PM [facility] Protein Total 6.8 6.0 - 8.3 g/dL 09/01/2019 12:00 PM [facility] Albumin 4.1 3.4 - 5.0 g/dL 09/01/2019 12:00 PM [facility] Bilirubin Total 0.3 0.2 - 1.2 mg/dL 09/01/2019 12:00 PM [facility] Alkaline Phosphatase 49 40 - 150 Units/L 09/01/2019 12:00 PM [facility] ALT 13 0 - 55 Units/L 09/01/2019 12:00 PM [facility] AST 13 5 - 34 Units/L 09/01/2019 12:00 PM [facility] Anion Gap 14 8 - 18 09/01/2019 12:00 PM [facility] BUN/Creatinine Ratio 20 7 - 23 09/01/2019 12:00 PM [facility] Osmolality Calculated 295 270 - 300 mOsm/kg 09/01/2019 12:00 PM [facility] Albumin/Globulin Ratio 1.5 1.1 - 2.3 09/01/2019 12:00 PM [facility] eGFR >60 >60 mL/min/1.7 3 m2 09/01/2019 12:00 PM [facility] Blood BLOOD SPECIMEN / Unknown Lab Venipuncture / Unknown 09/01/2019 11:28 AM CDT 09/01/2019 11:38 AM CDT Markus Cabral MD LAB - CHEMISTRY ORDERABLES [address] [address] [phone] * (ABNORMAL) CBC WITH DIFFERENTIAL (09/01/2019 11:28 AM T) WBC 8.9 3.5 - 10.5 10? 3 /uL 09/01/2019 11:44 AM [facility] RBC 5.01(H) 3.90 - 5.00 10? 6 /uL 09/01/2019 11:44 AM [facility] Hemoglobin 13.5 12.0 - 15.5 g/dL 09/01/2019 11:44 AM [facility] Hematocrit 43.5 35.0 - 45.0 % 09/01/2019 11:44 AM [facility] MCV 86.8 81.0 - 97.0 fL 09/01/2019 11:44 AM [facility] MCH 26.9(L) 28.0 - 34.0 pg 09/01/2019 11:44 AM [facility] MCHC 31.0(L) 32.0 - 36.0 g/dL 09/01/2019 11:44 AM [facility] Platelet Count 311 150 - 400 10? 3 /uL 09/01/2019 11:44 AM [facility] RDW-SD 46.8 36.0 - 50.0 fL 09/01/2019 11:44 AM [facility] RDW-CV 14.7 11.2 - 14.8 % 09/01/2019 11:44 AM [facility] MPV 9.3 9.3 - 12.8 fL 09/01/2019 11:44 AM [facility] nRBC Absolute 0.00 0 10? 3 /uL 09/01/2019 11:44 AM [facility] nRBC Auto 0.0 0 /100 WBC 09/01/2019 11:44 AM [facility] Neutrophils % 64.8 35.0 - 70.0 % 09/01/2019 11:44 AM [facility] Lymphocytes % 18.0(L) 19.7 - 55.1 % 09/01/2019 11:44 AM [facility] Monocytes % 8.2 3.0 - 15.0 % 09/01/2019 11:44 AM [facility] Eosinophils % 7.6(H) 0.0 - 6.0 % 09/01/2019 11:44 AM [facility] Basophil % 1.2 0.0 - 1.5 % 09/01/2019 11:44 AM [facility] Neutrophils Absolute 5.7 1.6 - 7.0 10? 3 /uL 09/01/2019 11:44 AM [facility] Lymphocyte Absolute 1.6 0.8 - 2.9 10? 3 /uL 09/01/2019 11:44 AM [facility] Monocytes Absolute 0.73(H) 0.14 - 0.66 10? 3 /uL 09/01/2019 11:44 AM [facility] Eosinophils Absolute 0.67(H) 0.00 - 0.45 10? 3 /uL 09/01/2019 11:44 AM [facility] Basophils Absolute 0.11(H) 0.00 - 0.06 10? 3 /uL 09/01/2019 11:44 AM [facility] Immature Granulocytes % 0.2 0.0 - 1.0 % 09/01/2019 11:44 AM [facility] Blood BLOOD SPECIMEN / Unknown Lab Venipuncture / Unknown 09/01/2019 11:28 AM CDT 09/01/2019 11:38 AM T Markus Cabral MD LAB - HEMATOLOGY ORDERABLES [address] [address] [place] [phone] documented in this encounter Visit Diagnoses Diagnosis Multiple sclerosis (HCC)- Primary Multiple sclerosis Multiple sclerosis (HCC) Multiple sclerosis documented in this encounter Care Teams Filter Tank Tender Helper Relationship Specialty Start Date End Date Lauren Saba APRN-ZIGZAG MACHINE OPERATOR [address] [place] [phone] PCP - General 01/14/18 05/10/23 documented as of this encounter
--- OUTSIDE RECORDS SUMMARY | 2024-03-22 16:39 | XMS_ITS | Encounter Summary ---
Author Organization [facility] Health Address [address] [place] [address] Care Team Providers Care Vice President Compliance Name Role Phone Lauren Saba Jose Eduardo KNOX-DIRECTOR OF LEARNING Primary Care Provider Reason for Visit * Reason Comments Botox Encounter Details Date Type Department Care Team (Latest Contact Info) Description 01/12/2020 9:00 AM CDT Procedure visit [facility], [facility] [address] Mckayla Haywood MD [address] [place] [address] [place] [address] Intractable chronic migraine without aura [...] Reading Time Taken Comments Blood Pressure 119/75 01/12/2020 9:14 AM CDT Pulse 88 01/12/2020 9:14 AM CDT Temperature 36.4 ??C (97.5 ??F) 01/12/2020 9:14 AM CD T Respiratory Rate - - Oxygen Saturation 99% 01/12/2020 9:14 AM CDT Inhaled Oxygen Concentration - - Weight 63.5 kg (140 lb) 01/12/2020 9:14 AM CDT Height 162.6 cm (5' 4 ) 01/12/2020 9:14 AM CDT Body Mass Index 24.03 01/12/2020 9:14 AM CDT documented in this encounter Progress Notes * Mckayla Haywood MD - 01/12/2020 9:08 AM CDT Current Outpatient Medications Medication Sig [...] MCG/ACT ??? baclofen (LIORESAL) 10 MG tablet Take 1 tablet by mouth 2 times daily May cause drowsiness. 60 tablet 5 ??? benzoyl peroxide (BENZAC) 10 % wash Wash face and body with once daily 1 bottles 11 ??? budesonide-formoterol (SYMBICORT) 160-4.5 MCG/ACT inhaler INHALE 2 PUFFS BY MOUTH TWICE DAILY ??? oijuhxwnkf-xwfepezpimhqd-ojvumfam (FIORICET) 50-325-40 MG tablet TAKE 1 TABLET BY MOUTH EVERY 4HOURS NEEDED FOR HEADACHE(NO ADITIONAL TYLENOL) 30 tablet 3 ??? erythromycin (ERYDERM) 2 % solution Apply 1-2 times daily to entire face 60 mL 11 ??? escitalopram (LEXAPRO) 20 MG tablet Take 1 tablet by mouth once daily 90 tablet 3 ??? fluticasone propionate (FLONASE) 50 MCG/ACT nasal spray [place] 1 [place] into the nose ??? ibuprofen (MOTRIN) 800 [...] sumatriptan 50 mg tablet ??? tretinoin (RETIN-A) 0.01 % gel APPLY A PEA SIZE AMOUNT TO ENTIRE FACE EVERY NIGHT AT BEDTIME 45g 4 ??? tretinoin (RETIN-A) 0.1 % cream Pea sized amount to entire face at night. 30 days supply. 45 g 3 ??? zonisamide (ZONEGRAN) 100 MG capsule Take 5 capsules by mouth at bedtime 150 capsule 5 No current facility-administered medications for this visit. BP 119/75 Pulse 88 Temp 97.5 ??F (36.4 ??C) (Oral) Ht 5' 4 (1.626 m) Wt 140 lb (63.5 kg) SpO2 99% BMI 24.03 kg/m2 documented in this encounter Procedure Notes * Mckayla Haywood MD - 01/12/2020 9:12 AM CDTAssociated Order(s): PROC INJECTION - BOTOX Procedure(s): MD CHEMODENERV MUSC MIGRAINE Pre-Procedure Diagnose(s): Intractable chronic [...] aura, intractable, with status migrainosus Procedure code: 17312 History: Baseline number of headaches per month:30?? Current headaches per month:3-4 Number of headache hours per day baseline: 12 Number of headache days per hour current: 6 Associated symptoms baseline: Moderate to severe pain, nausea, vomiting, photophobia, phonophobia. Associated symptoms current: Moderate pain, nausea, photophobia, phonophobia. The patient has had significant benefit from Botox with a 50% reduction in headache frequency and severity. Current migraine prophylactic medications: Current migraine abortive treatments:??sumatriptan, fioricet?? Date of last injection: 10/13/2019 Duration of benefit: 3 months Side effects [...] st Contact Info) Description 04/04/2024 8:30 AM LIME SUPERVISOR Office Visit [facility] - Dermatology [address] [facility], [place] [phone] Marlys Zaragoza MD [address] [facility] 3L [place] [phone] 09/03/2024 9:00 AM CDT Office Visit [facility] - Neurology [address] [place] [address], [place] [phone] Melissa Crook, WIRE TEMPERER-DIRECTOR OF LEARNING [address] [place] [address] documented as of this encounter Procedures Procedure Name Priority Date/Time Associated Diagnosis Comments MD CHEMODENERV MUSC MIGRAINE Routine 01/12/2020 9:12 AM CDT Intractable chronic 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 without status migrainosus documented in this encounter Results * MD CHEMODENERV MUSC MIGRAINE (01/12/2020 9:12 AM CDT) Narrative Mckalya Haywood MD - 01/12/2020 9:12 AM CDT [...] intractable, with status migrainosus ?? Procedure code: 74099 History: Baseline number of headaches per month:30?? [...] 200 Units, Intramuscular, ONCE, 1 dose, On 01/12/20 at 0930 $ Given 01/12/2020 6:08 PM CDT 200 Units Head documented in this encounter Care Teams Vice President Compliance Relationship Specialty Start Date End Date Lauren Saba APRN-DIRECTOR OF LEARNING [address] [place] [phone] PCP - General 01/14/18 05/10/23 documented as of this encounter
--- OUTSIDE RECORDS SUMMARY | 2024-03-22 16:39 | XMS_ITS | Encounter Summary ---
Author Organization [facility] Health Address [address] [facility] [address] [place] [address] Care Team Providers Care Manager Clinical Applications Name Role Phone Lauren Saba Primary Care Provider Reason for Visit * Reason Onset Date Comments MEDICATION REFILL 12/29/2019 Encounter Details Date Type Department Care Team (Late st Contact Info) Description 12/29/2019 Refill [facility] [address] [facility], [place] [address] Alesia Vazquez APRN-CNP [address] [place] [address] [place] [phone] MEDICATION REFILL Social History Tobacco Use Types [...] * Telephone Encounter - Santana Delatorre - 12/29/2019 11:20 AM CDT Refill Request Meredith Frost CRISTELA: 10/13/2019 NOV scheduled: 01/12/2020 LRF: 12/01/2019 Qty Disp: 150 # of refills: 5 Allergies: No Known Allergies Pended Medication Order: Requested Prescriptions Pending Prescriptions Disp Refills ??? zonisamide (ZONEGRAN) 100 MG capsule 150 capsule 5 Sig: Take 5 capsules by mouth at bedtime documented in this encounter Plan of Treatment Upcoming Encounters Date Type Department Care Team (Late st Contact Info) Description 04/04/2024 8:30 AM ANTIQUE AUTO MUSEUM MAINTENANCE WORKER Office Visit [facility] - Dermatology [address] [place] [address], [place] [phone] Marlys Zaragoza MD [address] [place] [address] 3 [place] [phone] 09/03/2024 9:00 AM CDT Office Visit [facility]rology [address] [place] [phone] Melissa Crook APRN-CNP [address] [place] [phone] documented as of this encounter Visit Diagnoses Diagnosis Nonintractable epilepsy without status epilepticus, unspecified epilepsy type (HCC) Medication monitoring encounter Encounter for therapeutic drug monitoring documented in this encounter Care Teams Manager Clinical Applications Relationship Specialty Start Date End Date Lauren Saba APRN-GAS WELDING EQUIPMENT MECHANIC [address] [place] [phone] PCP - General 01/14/18 05/10/23 documented as of this encounter
--- OUTSIDE RECORDS SUMMARY | 2024-03-22 16:39 | XMS_ITS | Encounter Summary ---
Author Organization [facility] Health Address [address] [facility] [place] [address] Care Team Providers Care Head Start Assistant Teacher Name Role Phone Lauren Saba Jose Eduardo KNOX-BOBBIN HANDLER Primary Care Provider Reason for Visit * Reason Comments Refill Request Encounter Details Date Type Department Care Team ([facility] Contact Info) Description 04/23/2019 Refill [facility] [address] [place] [address] Mckayla Haywood MD [facility] [place] [phone] Refill Request Social History Tobacco Use Types [...] have Coronavirus / COVID-19? No / Unsure 11/14/2019 12:23 PM CDT documented as of this encounter Plan of Treatment Upcoming Encounters Date Type Department Care Team ([facility] st Contact Info) Description 04/04/2024 8:30 AM VETERINARY DENTIST [facility] [address] [place] [address], [place] [phone] Marlys Zaragoza MD [facility]5 [facility] 3L [place] [phone] 09/03/2024 9:00 AM CDT Office Visit [facility] - [facility]rology [address] [place] [address], [place] [phone] Melissa Crook APRN-BOBBIN HANDLER [address] [place] [phone] documented as of this encounter Visit Diagnoses Diagnosis Nonintractable epilepsy without status epilepticus, unspecified epilepsy type (HCC) documented in this encounter Care Teams Head Start Assistant Teacher Relationship Specialty Start Date End Date Lauren Saba, LIGHT RAIL SIGNAL TECHNICIAN-BOBBIN HANDLER [address] [place] [phone] PCP - General 01/14/18 05/10/23 documented as of this encounter
--- OUTSIDE RECORDS SUMMARY | 2024-03-22 16:39 | XMS_ITS | Encounter Summary ---
Author Organization [facility] Health Address [address] [place] [address] Care Team Providers Care Ethanol Maintenance Mechanic Name Role Phone Lauren Saba Jose Eduardo KNOX-DIGITAL CONTENT COORDINATOR Primary Care Provider Encounter Details Date Type Department Care Team (Latest Contact Info) Description 11/14/2019 Travel Social History Tobacco Use Types Packs/Day Years Used Date Smoking Tobacco: Never Assessed Sex and Gender Information Value Date Recorded [...] Visit [facility] Derm[facility] [address] [place] [address], [facility] [place] [phone] Marlys Zaragoza MD [address] [place] [address] 3 [place] [phone] 09/03/2024 9:00 AM CDT Office Visit [facility] Neurology [address] [facility], [place] [address] Melissa Crook APRN-CNP [address] [place] [phone] documented as of this encounter Visit Diagnoses Not on filedocumented in this encounter Care Teams Ethanol Maintenance Mechanic Relationship Specialty Start Date End Date Lauren Saba APRN-CNP [address] [place] [phone] PCP - General 01/14/18 05/10/23 documented as of this encounter
--- OUTSIDE RECORDS SUMMARY | 2024-03-22 16:39 | XMS_ITS | Encounter Summary ---
Author Organization [facility] Health Address [address] [facility] [place] [address] Care Team Providers Care Informatics Nurse Name Role Phone Lauren Saba Jose Eduardo JOSHI Primary Care Provider Reason for Visit * Reason Onset Date Comments Rx Dose Adjustment 06/02/2019 Encounter Details Date Type Department Care Team (Late st Contact Info) Description 06/02/2019 Telephone [facility] [address] [place] [address] Alesia Vazquez APRN-CNP [address] [place] [phone] Rx Dose Adjustment Social History Tobacco Use Types Packs/Day Years [...] Telephone Encounter - Alesia Vazquez APRN-CNP - 06/02/2019 1:28 PM CDT Called and spoke to Meredith and her mom- Serg, explained to increase zonisamide to 500 mg QHS, take Keppra 500 mg QD for 3 days and then stop. They v/u. * Telephone Encounter - Alesia Vazquez APRN-CNP - 06/02/2019 1:28 PM CDT ----- Message from Devan Renee MD sent at 05/19/2019 4:12 PM [employer] ----- Regarding: Zonisamide Can increase her ZNG to 500 mg nightly and stop her Levetiracetam. Thanks. documented in this encounter Plan of Treatment Upcoming Encounters Date Type Department Care Team (Late st Contact Info) Description 04/04/2024 8:30 AM C[employer]TER [employer]INGS Office Visit [facility] - Dermatology [address] [place] [address], [place] [phone] Marlys Zaragoza MD [address] [place] [address] [place] [phone] 09/03/2024 9:00 AM CDT Office Visit [facility] - Neurology [address] [place] [phone] Melissa Crook APRN-CNP [address] [place] [phone] documented as of this encounter Visit Diagnoses Diagnosis Nonintractable epilepsy without status epilepticus, unspecified epilepsy type (HCC) Medication monitoring encounter Encounter for therapeutic drug monitoring documented in this encounter Care Teams Informatics Nurse Relationship Specialty Start Date End Date Lauren Saba APRN-CNP [address] [place] [phone] PCP - General 01/14/18 05/10/23 documented as of this encounter
--- OUTSIDE RECORDS SUMMARY | 2024-03-22 16:39 | XMS_ITS | Encounter Summary ---
Author Organization [facility] Health Address [address] [facility] [place] [address] Care Team Providers Care Platen Press Operator Apprentice Name Role Phone Lauren Saba Primary Care Provider Encounter Details Date Type Department Care Team (Latest Contact Info) Description 05/22/2018 10:32 AM CARE MANAGEMENT COORDINATOR - 05/22/2018 11:59 PM [facility] Hospital Encounter [facility] DRAW STATION [address] [place] [phone] Alesia Vazquez, LISETTE-LOADING AND UNLOADING SUPERVISOR [address] [place] [phone] Discharge Disposition: Home or Self Care Social [...] Sig Dispensed Refills Start Date End Date ERINN MAINTENA 300 MG injection Inject 1.5 mL into muscle every 28 days 1 Each 5 04/30/2018 09/25/2018 albuterol HFA (PROVENTIL;VENTOLIN; PROAIR) 108 (90 BASE) MCG/ACT inhaler Inhale 2 Puffs by mouth every 6 hours 03/05/2014 04/11/2021 baclofen (LIORESAL) 10 MG tabletIndications:MS (multiple sclerosis) ([facility]),Vitamin D deficiency,High risk medication use,Nonintractable epilepsy without status epilepticus, unspecified epilepsy type ([facility]),Mild cognitive impairment,Intractab le chronic 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 without status migrainosus,Spastici ty Take 1 tablet by mouth 2 times daily May cause drowsiness. 60 tablet 5 01/14/2018 10/22/2018 benzoyl peroxide (BENZAC) 10 % washIndications:Acne vulgaris Wash face and body with once daily 1 bottles 11 11/20/2017 11/07/2018 budesonide-formotero l (SYMBICORT) 160-4.5 MCG/ACT inhaler 11/02/2015 10/03/2018 butalbital-acetamino phen-caffeine (FIORICET) 50-325-40 MG tabletIndications:No nintractable epilepsy without status epilepticus, unspecified epilepsy type ([facility]) Take 1 tablet by mouth every 4 hours as needed for Headache (no additional tylenol or acetamenophen with this medication.) 30 tablet 5 01/14/2018 04/24/2019 calcium carbonate (TUMS) 500 MG chew tablet Take 500 mg by mouth as needed for GI Upset 09/13/2016 01/27/2019 erythromycin (ERYDERM) 2 % solutionIndications: Acne vulgaris Apply 1-2 times daily to entire face 60 mL 11 11/20/2017 11/07/2018 escitalopram (LEXAPRO) 10 MG tablet Take 1 tablet by mouth once daily 90 tablet 2 02/04/2018 06/04/2018 fluticasone propionate (FLONASE) 50 MCG/ACT nasal spray [place] 1 [place] into the nose 03/05/2014 04/11/2021 ibuprofen (MOTRIN) 800 MG tabletIndications: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 Do not exceed 2 tablets per day. 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) Inject 200 Units into muscle Every 90 days 2 Each 3 04/15/2018 07/25/2018 raNITIdine (ZANTAC) 150 MG tablet Take 1 tablet by mouth 2 times daily as needed 01/10/2017 01/27/2019 tretinoin (RETIN-A) 0.05 % creamIndications:Acn e vulgaris Apply thin layer to entire face nightly 45 g 11 11/20/2017 11/07/2018 vitamin D3 (CHOLECACIFEROL) 5000 UNITSIndications:MS (multiple sclerosis) (HCC),Vitamin D deficiency,High risk medication use,Nonintractable epilepsy without status epilepticus, unspecified epilepsy type (HCC),Mild cognitive impairment,Intractab le chronic 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 without status migrainosus,Spastici ty Take 1 tablet by mouth once daily 30 tablet 5 10/10/2017 03/18/2019 zonisamide (ZONEGRAN) 100 MG capsuleIndications:N onintractable epilepsy without status epilepticus, unspecified epilepsy type (HCC) Take 4 capsules by mouth at bedtime 120 capsule 5 01/14/2018 12/19/2018 documented as of this encounter Plan of Treatment Upcoming Encounters Date Type Department Care Team (Late st Contact Info) Description 04/04/2024 8:30 AM CARE MANAGEMENT COORDINATOR Office Visit [facility] - Dermatology [address] [place] [address], [place] [address] Marlys Zaragoza MD [address] [place] [address] 3 [place] [phone] 09/03/2024 9:00 AM CDT Office Visit [facility] - Neurology [address] [place] [address], [facility] [place] [address] BernekMelissa schuster, PLUG SAW OPERATOR-LOADING AND UNLOADING SUPERVISOR [address] [place] [address] documented as of this encounter Procedures Procedure Name Priority Date/Time Associated Diagnosis Comments ZONISAMIDE LEVEL Routine 05/22/2018 10:4 0 AM CARE MANAGEMENT COORDINATOR MS (multiple sclerosis) (HCC) Vitamin D deficiency High risk medication use Seizure (HCC) VITAMIN D 25-HYDROXY Routine 05/22/2018 10:40 AM CARE MANAGEMENT COORDINATOR MS (multiple sclerosis) (HCC) Vitamin D deficiency High risk medication use Seizure (HCC) CBC W AUTO DIFFERENTIAL Routine 05/22/2018 10:40 AM CARE MANAGEMENT COORDINATOR MS (multiple sclerosis) (HCC) Impaired functional mobility, balance, gait, and endurance Medication monitoring encounter COMPREHENSIVE METABOLIC PANEL Routine 05/22/2018 10:40 AM CARE MANAGEMENT COORDINATOR MS (multiple sclerosis) (HCC) Impaired functional mobility, balance, gait, and endurance Medication monitoring encounter documented in this encounter Results * ZONISAMIDE LEVEL (05/22/2018 10:40 AM CARE MANAGEMENT COORDINATOR) Zonisamide 11.7 10.0 - 40.0 ug/mL 05/24/2018 11:16 AM CARE MANAGEMENT COORDINATOR [facility]) Comment: This test was developed and its performance characteristics determined by [facility]. It has not been cleared or approved by the Food and Drug Administration. ?Detection Limit = 1.0 Blood BLOOD SPECIMEN / Unknown Lab Venipuncture / Unknown 05/22/2018 10:40 AM CARE MANAGEMENT COORDINATOR 05/22/2018 11:02 AM CARE MANAGEMENT COORDINATOR Narrative [facility] ([facility]) - 05/24/2018 11:16 AM CARE MANAGEMENT COORDINATOR Performed at: ??01 - [facility] [address] ??[id number] Manager Etl: Ro Lundberg MD, Phone: ??[phone] Alesia Shania George PLUG SAW OPERATOR-LOADING AND UNLOADING SUPERVISOR LAB - CHEMISTR Y ORDERABLES Performing Organization Address [facility]/ZIP Co de Phone Number [facility] ([facility]) [address] [place] [address] * VITAMIN D 25-HYDROXY (05/22/2018 10:40 AM CARE MANAGEMENT COORDINATOR) Pathologist [facility] Vitamin D, 25 Hydroxy 43.5 See comment: ng/mL 05/22/2018 12:19 PM CARE MANAGEMENT COORDINATOR [facility] Comment: The recommendations for 25-Hydroxy Vitamin [...] Lab Venipuncture / Unknown 05/22/2018 10:40 AM CARE MANAGEMENT COORDINATOR 05/22/2018 11:02 AM CARE MANAGEMENT COORDINATOR Alesia Vazquez PLUG SAW OPERATOR-LOADING AND UNLOADING SUPERVISOR LAB - CHEMISTR Y ORDERABLES Performing Organization Address City/[facility]/ZIP Co de Phone Number [address] [phone] * (ABNORMAL) COMPREHENSIVE METABOLIC PANEL (05/22/2018 10:40 AM CARE MANAGEMENT COORDINATOR) [facility] BUN 27(H) 7 - 26 mg/dL 05/22/2018 11:58 AM [facility] Creatinine 0.7 0.6 - 1.2 mg/dL 05/22/2018 11:58 AM [facility] Sodium 140 136 - 145 mmol/L 05/22/2018 11:58 AM [facility] Potassium 4.4 3.5 - 4.5 mmol/L 05/22/2018 11:58 AM [facility] Chloride 109(H) 98 - 107 mmol/L 05/22/2018 11:58 AM [facility] CO2 24 22 - 29 mmol/L 05/22/2018 11:58 AM [facility] Glucose 91 70 - 115 mg/dL 05/22/2018 11:58 AM [facility] Calcium 9.3 8.4 - 10.2 mg/dL 05/22/2018 11:58 AM [facility] Protein Total 6.5 6.0 - 8.3 g/dL 05/22/2018 11:58 AM [facility] Albumin 3.9 3.4 - 5.0 g/dL 05/22/2018 11:58 AM [facility] Bilirubin Total 0.2 0.2 - 1.2 mg/dL 05/22/2018 11:58 AM [facility] Alkaline Phosphatase 46 40 - 150 Units/L 05/22/2018 11:58 AM [facility] ALT 12 0 - 55 Units/L 05/22/2018 11:58 AM [facility] AST 10 5 - 34 Units/L 05/22/2018 11:58 AM [facility] Anion Gap 11 8 - 18 05/22/2018 11:58 AM [facility] BUN/Creatinine Ratio 39(H) 7 - 23 05/22/2018 11:58 AM [facility] Osmolality Calculated 295 270 - 300 mOsm/kg 05/22/2018 11:58 AM [facility] Albumin/Globulin Ratio 1.5 1.1 - 2.3 05/22/2018 11:58 AM [facility] eGFR >60 >60 mL/min/1.7 3 m2 05/22/2018 11:58 AM [facility] Blood BLOOD SPECIMEN / Unknown Lab Venipuncture / Unknown 05/22/2018 10:40 AM CARE MANAGEMENT COORDINATOR 05/22/2018 11:02 AM [facility] Alesia Vazquez PLUG SAW OPERATOR-LOADING AND UNLOADING SUPERVISOR LAB - CHEMISTR Y ORDERABLES [facility] [address] [phone] * (ABNORMAL) CBC WITH DIFFERENTIAL (05/22/2018 10:40 AM CARE MANAGEMENT COORDINATOR) WBC 9.7 3.5 - 10.5 10? 3 /uL 05/22/2018 11:20 AM [facility] RBC 4.59 3.90 - 5.00 10? 6 /uL 05/22/2018 11:20 AM [facility] Hemoglobin 12.1 12.0 - 15.5 g/dL 05/22/2018 11:20 AM [facility] Hematocrit 38.5 35.0 - 45.0 % 05/22/2018 11:20 AM [facility] MCV 83.9 81.0 - 97.0 fL 05/22/2018 11:20 AM [facility] MCH 26.4(L) 28.0 - 34.0 pg 05/22/2018 11:20 AM [facility] MCHC 31.4(L) 32.0 - 36.0 g/dL 05/22/2018 11:20 AM [facility] Platelet Count 415(H) 150 - 400 10? 3 /uL 05/22/2018 11:20 AM [facility] RDW-SD 47.4 36.0 - 50.0 fL 05/22/2018 11:20 AM [facility] RDW-CV 15.7(H) 11.2 - 14.8 % 05/22/2018 11:20 AM [facility] MPV 9.2(L) 9.3 - 12.8 fL 05/22/2018 11:20 AM [facility] nRBC Absolute 0.00 0 10? 3 /uL 05/22/2018 11:20 AM [facility] nRBC Auto 0.0 0 /100 WBC 05/22/2018 11:20 AM [facility] Neutrophils % 69.2 35.0 - 70.0 % 05/22/2018 11:20 AM [facility] Lymphocytes % 15.8(L) 19.7 - 55.1 % 05/22/2018 11:20 AM [facility] Monocytes % 8.8 3.0 - 15.0 % 05/22/2018 11:20 AM [facility] Eosinophils % 4.8 0.0 - 6.0 % 05/22/2018 11:20 AM [facility] Basophil % 1.0 0.0 - 1.5 % 05/22/2018 11:20 AM [facility] Neutrophils Absolute 6.7 1.6 - 7.0 10? 3 /uL 05/22/2018 11:20 AM [facility] Lymphocyte Absolute 1.5 0.8 - 2.9 10? 3 /uL 05/22/2018 11:20 AM [facility] Monocytes Absolute 0.85(H) 0.14 - 0.66 10? 3 /uL 05/22/2018 11:20 AM [facility] Eosinophils Absolute 0.46(H) 0.00 - 0.45 10? 3 /uL 05/22/2018 11:20 AM [facility] Basophils Absolute 0.10(H) 0.00 - 0.06 10? 3 /uL 05/22/2018 11:20 AM [facility] Immature Granulocytes % 0.4 0.0 - 1.0 % 05/22/2018 11:20 AM [facility] Blood BLOOD SPECIMEN / Unknown Lab Venipuncture / Unknown 05/22/2018 10:40 AM CARE MANAGEMENT COORDINATOR 05/22/2018 11:02 AM [facility] Alesia JOSHI LAB - HEMATOLO GY ORDERABLES Performing Organization Address [facility]/State/[facility] Co de Phone Number [address] [phone] documented in this encounter Visit Diagnoses Diagnosis MS (multiple sclerosis) (HCC) Multiple sclerosis Impaired functional mobility, balance, gait, and endurance Medication monitoring encounter Encounter for therapeutic drug monitoring Vitamin D deficiency High risk medication use Encounter for long-term (current) use of other medications Seizure (HCC) Other convulsions documented in this encounter Care Teams Platen Press Operator Apprentice Relationship Specialty Start Date End Date Lauren Saba APRN-CNP [address] [place] [phone] PCP - General 01/14/18 05/10/23 documented as of this encounter
--- OUTSIDE RECORDS SUMMARY | 2024-03-22 16:39 | XMS_ITS | Encounter Summary ---
Author Organization [facility] Health Address [address] [facility] [place] [address] Care Team Providers Care Job Compositor Name Role Phone Lauren Saba LISETTE-TOOL CHASER Primary Care Provider Reason for Visit * Reason Comments Multiple Sclerosis Follow-up Encounter Details Date Type Department Care Team (Late st Contact Info) Description 01/21/2020 10:00 AM HOUSE DETECTIVE Video Visit [facility] Neurology [address] [place] [phone] Markus Cabral MD [address] [place] [phone] Multiple sclerosis (HCC) ; Seizure (HCC) Social History Tobacco Use Types Packs/Day [...] Progress Notes * Markus Cabral MD - 01/21/2020 10:23 AM CST Telephone Note Today's visit was conducted virtually due to COVID-19 countermeasures. The patient has given verbalconsent to have today's visit conducted by this same means with treatment provided remotely. The patient verbally consents to the billing and collection practices of the provider's medical group. Patient location: Home This encounter was performed using: audio Reason for not using video for visit: patient does not have the technology Total time spent on visit on date of encounter is: 22 minutes with15 minutes spent in medical discussion Assessment & Plan Meredith is a 39 year old female who has completed a telephone encounter regarding: Follow up for MS and Seizures. Currently Clincially stable on Ocrevus. Its well Tolerated. Most recent MRI scan is stable without new lesions. Needs Cbc, CMP in 3 months before next ocrevus . Wants to drive: probably not safe. 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 No breakthrough seizures reported. RTC in person in Apr 2019 before next OCrevus infusion. Subjective Chief Complaint Patient presents with ??? Multiple Sclerosis Follow-up Doing well . Has had couple of falls. No major injury. Does no use any assistive devices. Reports no recent infections. Planned for tendon surgery. Sees [facility] at [facility]. Also wants to resume driving. Prior evaluation by neuro psych was deemed not safe. She now tells me she was told its okayto drive. I don not see nay notes. haven't had any OT evaluation. On 500 mg daily zonisamide and nobreakthrough seizures. A comprehensive 10 system ROS was reviewed. Pertinent positives and negatives are included in HPI or PMH. The remainder of the 10 system ROS was negative. Objective Appears not in distress. No physical exam was able to be performed by phone. Markus Cabral MD E DETECTIVE documented in this encounter Plan of Treatment Upcoming Encounters Date Type Department Care Team (Late st Contact Info) Description 04/04/2024 8:30 AM HOUSE DETECTIVE Office Visit [facility] - Dermatology [address] [place] [address], [place] [address] Marlys Zaragoza MD [address] [place], [place] [address] [address]L [place] [phone] 09/03/2024 9:00 AM CDT Office Visit [facility] - Neurology [address] [place] [address], [place] [phone] Melissa Crook APRN-TOOL CHASER [address] [place] [phone] documented as of this encounter Visit Diagnoses Diagnosis Multiple sclerosis (HCC)- Primary Multiple sclerosis Seizure (HCC) Other convulsions documented in this encounter Care Teams Job Compositor Relationship Specialty Start Date End Date Lauren Saba APRN-TOOL CHASER [address] [place] [address] PCP - General 01/14/18 05/10/23 documented as of this encounter
--- OUTSIDE RECORDS SUMMARY | 2024-03-22 16:39 | XMS_ITS | Encounter Summary ---
Author Organization [facility] Health Address [address] [place] [address] Care Team Providers Care Emt I/85 Name Role Phone Lauren Saba Jose Eduardo KNOX-SODDER Primary Care Provider Encounter Details Date Type Department Care Team (Late Contact Info) Description 11/06/2018 Orders Only [facility] [address] [place] [address] Alesia Vazquez, PROSPECTING DRILLER HELPER-SODDER [address] [place] [address] [place] [phone] Social History Tobacco Use Types Packs/Day Years [...] (Late Contact Info) Description 04/04/2024 8:30 AM SALT PLANT OPERATOR Office Visit [facility] - Dermatology [address] [place] [address], [place] [phone] Marlys Zaragoza MD [address] [facility] [address] [place] [address] 09/03/2024 9:00 AM CDT Office Visit [facility] [facility], [place] [phone] Melissa Crook, PROSPECTING DRILLER HELPER-SODDER [address] [place] [address] documented as of this encounter Procedures Procedure Name Priority Date/Time Associated Diagnosis Comments CBC W AUTO DIFFERENTIAL 11/06/2018 10:04 AM CDT COMPREHENSIVE METABOLIC PANEL 11/06/2018 10:04 AM CDT documented in this encounter Results * (ABNORMAL) CBC WITH DIFFERENTIAL (11/06/2018 10:04 AM CDT) White Blood Cell Count 6.1 3.8 - 10.8 Thousand/ uL [facility] RBC 4.66 3.80 - 5.10 Million/u L [facility] Hemoglobin 13.0 11.7 - 15.5 g/dL [facility] Hematocrit 40.8 35.0 - 45.0 % [facility] MCV 87.6 80.0 - 100.0 fL [facility] MCH 27.9 27.0 - 33.0 pg [facility] MCHC 31.9(L) 32.0 - 36.0 g/dL [facility] RDW 13.8 11.0 - 15.0 % [facility] Platelet Count 337 140 - 400 Thousand/ uL [facility] MPV 9.6 7.5 - 12.5 fL [facility] Neutrophil Absolute 3947 1500 - 7800 cells/uL [facility] Lymphocytes Absolute 1159 850 - 3900 cells/uL [facility] Absolute Monocytes 598 200 - 950 cells/uL [facility] Eosinophils Absolute 336 15 - 500 cells/uL [facility] Basophils Absolute 61 0 - 200 cells/uL [facility] Granulocytes % 64.7 % [facility] Lymphocytes % 19.0 % [facility] Monocytes % 9.8 % [facility] Eosinophils % 5.5 % [facility] Basophils % 1.0 % [facility] Comment: Test Performed at: [facility] ??[phone] IMTIAZ PRUITT MD 11/06/2018 10:0 4 AM CDT 11/06/2018 3:45 PM CDT Alesia Vazquez PROSPECTING DRILLER HELPER-SODDER LAB - HEMATOLO GY ORDERABLES [facility] [address] [place] [address] * (ABNORMAL) COMPREHENSIVE METABOLIC PANEL (11/06/2018 10:04 AM CDT) Glucose 107(H) 65 - 99 mg/dL [facility] Comment: ? Fasting reference interval For someone without known diabetes, a glucose value between 100 and 125 mg/dL is consistent with prediabetes and should be confirmed with a follow-up test. BUN 16 7 - 25 mg/dL [facility] Creatinine 0.71 0.50 - 1.10 mg/dL [facility] eGFR by MDRD 109 > OR = 60 mL/min/1 .73m2 [facility] eGFR by MDRD 126 > OR = 60 mL/min/1 .73m2 [facility] BUN/Creatinine Ratio NOT APPLICABLE 6 - 22 (calc) [facility] Sodium 138 135 - 146 mmol/L [facility] Potassium 4.1 3.5 - 5.3 mmol/L [facility] Chloride 109 98 - 110 mmol/L [facility] CO2 24 20 - 32 mmol/L [facility] Calcium 9.1 8.6 - 10.2 mg/dL [facility] Protein Total 6.2 6.1 - 8.1 g/dL [facility] Albumin 4.1 3.6 - 5.1 g/dL [facility] Globulin Total 2.1 1.9 - 3.7 g/dL (calc) [facility] Albumin/Globulin Ratio 2.0 1.0 - 2.5 (calc) [facility] Bilirubin Total 0.3 0.2 - 1.2 mg/dL [facility] Alkaline Phosphatase 46 33 - 115 U/L [facility] AST 10 10 - 30 U/L [facility] ALT 9 6 - 29 U/L [facility] Comment: Test Performed at: [facility] [address] [place], [place] ??[phone] IMTIAZ PRUITT MD 11/06/2018 10:0 4 AM CDT 11/06/2018 3:45 PM CDT Alesia Vazquez APRN-SODDER LAB - CHEMISTR Y ORDERABLES [facility] [address] [place] [address] documented in this encounter Visit Diagnoses Not on filedocumented in this encounter Care Teams Emt I/85 Relationship Specialty Start Date End Date Lauren Saba APRN-CNP [address] [place] [address] PCP - General 01/14/18 05/10/23 documented as of this encounter
--- OUTSIDE RECORDS SUMMARY | 2024-03-22 16:39 | XMS_ITS | Encounter Summary ---
Author Organization [facility] Health Address [address] [facility] [place] [address] Care Team Providers Care Metal Cabinet Finisher Name Role Phone Lauren Saba Primary Care Provider Reason for Referral * Radiology Services (Routine) - Closed Specialty Diagnoses / Procedures Referred By Nicole shipley Referred To Contact Neurology Diagnoses MS (multiple sclerosis) (HCC) Procedures MRI THORACIC SPINE WWO Alesia Machuca APRN-CNP [address] [place] [address] [facility] Neur- [address] [place] [address] Referral ID Status Reason Start Date Expiration Date Visits Re quested Visits Authorized [id number] Closed 05/22/2018 11/18/2018 1 1 Reason for Visit * Radiology Services (Routine) - Closed Specialty Diagnoses / Procedures Referred By Nicole shipley Referred To Contact Neurology Diagnoses MS (multiple sclerosis) (HCC) Procedures MRI THORACIC SPINE WWO Alesia Machuca APRN-CNP [address] [place] [address] [facility]- [address] [place] [address] Referral ID Status Reason Start Date Expiration Date Visits Re quested Visits Authorized [id number] Closed 05/22/2018 11/18/2018 1 1 Encounter Details Date Type Department Care Team (Latest Contact Info) Description 07/15/2018 9:07 AM CDT - 07/15/2018 11:59 PM CDT Hospital Encounter [facility] MRI [address] [place] [phone] Alesia Vazquez, CRTS-WEDGER AND GLUER [address] [facility] [address] [facility] [address] Discharge Disposition: Home or Self [...] Date End Date ABILIFY MAINTENA 300 MG injection Inject 1.5 mL into muscle every 28 days 1 Each 5 04/30/2018 09/25/2018 albuterol HFA (PROVENTIL;VENTOLIN; PROAIR) 108 (90 BASE) MCG/ACT inhaler Inhale 2 Puffs by mouth every 6 hours 03/05/2014 04/11/2021 baclofen (LIORESAL) 10 MG tabletIndications:MS (multiple sclerosis) ([facility]),Vitamin D deficiency,High risk medication use,Nonintractable epilepsy without status epilepticus, unspecified epilepsy type ([facility]),Mild cognitive impairment,Intractab le chronic migraine without aura [...] status epilepticus, unspecified epilepsy type (HCC) Take 1 tablet by mouth every 4 [...] 60 mL 11 11/20/2017 11/07/2018 escitalopram (LEXAPRO) 20 MG tablet Take 1 tablet by mouth once daily 30 tablet 2 06/12/2018 07/30/2018 fluticasone propionate (FLONASE) 50 MCG/ACT nasal spray [place] [address] [place] into the nose 03/05/2014 04/11/2021 ibuprofen (MOTRIN) [...] Contact Info) Description 04/04/2024 8:30 AM CUSTOMER SUCCESS DIRECTOR Office Visit [facility] Dermatology [address] [place] [address], [place] [phone] Marlys Zaragoza MD [address] [place] [address] [place] [phone] 09/03/2024 9:00 AM CDT Office Visit [facility] - Neurology [address] [place] [phone] Melissa Crook, LISETTE-WEDGER AND GLUER [address] [place] [phone] documented as of this encounter Procedures Procedure Name Priority Date/Time Associated Diagnosis Comments MRI THORACIC SPINE WWO CONT Routine 07/15/2018 11:14 AM CDT MS (multiple sclerosis) (HCC) documented in this encounter Results * MRI THORACIC SPINE WWO CONT (07/15/2018 11:14 AM CDT) Anatomical Region Laterality Modality Spine [...] small perineural cysts of the bilateral exiting [id number] in the bilateral T1-T2 neural foramina. The [...] WILLARD ANAND on 07/15/201812:43 PM . Alesia Vazquez APRN-WEDGER AND GLUER MR ORDERABLES documented in this encounter Visit Diagnoses Diagnosis MS (multiple sclerosis) (HCC) Multiple sclerosis documented in this encounter Care Teams Metal Cabinet Finisher Relationship Specialty Start Date End Date Lauren Saba APRN-NAIF [address] [place] [phone] PCP - General 01/14/18 05/10/23 documented as of this encounter
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
--- OUTSIDE RECORDS SUMMARY | 2024-03-22 16:39 | XMS_ITS | Encounter Summary ---
Author Organization [facility] Health Address [address] [place] [address] Care Team Providers Care Material Liaison Name Role Phone Lauren Saba Jose Eduardo JOSHI Primary Care Provider Reason for Visit * Reason Onset Date Comments MEDICATION REFILL 10/22/2018 Encounter Details Date Type Department Care Team (Late st Contact Info) Description 10/22/2018 Refill [facility] [address] [place] [address] Alesia Vazquez APRN-CNP [address] [place] [phone] MEDICATION REFILL Social History Tobacco Use Types [...] Telephone Encounter - Alesia Vazquez APRN-CNP - 10/22/2018 11:57 AM CDT Balcofen refilled. documented in this encounter Plan of Treatment Upcoming Encounters Date Type Department Care Team (Late st Contact Info) Description 04/04/2024 8:30 AM STACKING MACHINE OPERATOR Office Visit [facility] - Dermatology [address] [place] [address], [place] [phone] Marlys Zaragoza MD [address] [place] [address] [address] [place] [phone] 09/03/2024 9:00 AM CDT Office Visit [facility] - Neurology [address] [place] [address], [place] [phone] Melissa Crook APRN-CNP [address] [place] [phone] documented as of this encounter Visit Diagnoses [...] movements documented in this encounter Care Teams Material Liaison Relationship Specialty Start Date End Date Lauren Saba APRN-CNP [address] [place] [phone] PCP - General 01/14/18 05/10/23 documented as of this encounter
--- OUTSIDE RECORDS SUMMARY | 2024-03-22 16:39 | XMS_ITS | Encounter Summary ---
Author Organization [facility] Health Address [address] [place] [address] Care Team Providers Care Head Of Design Name Role Phone Lauren Saba Jose Eduardo KNOX-PRODUCTION SUPERINTENDENT HYDRO Primary Care Provider Reason for Visit * Reason Comments Botox Encounter Details Date Type Department Care Team (Latest Contact Info) Description 01/27/2019 9:00 AM FEATHER WASHER Procedure visit [facility] Neurology [address] [place] [address] Mckayla Haywood MD [address] [place] [phone] Intractable chronic 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 without [...] Sign Reading Time Taken Comments Blood Pressure 114/72 01/27/2019 8:44 AM FEATHER WASHER Pulse 103 01/27/2019 8:44 AM FEATHER WASHER Temperature - - Respiratory Rate - - Oxygen Saturation - - Inhaled Oxygen Concentration - - Weight 64.4 kg (142 lb) 01/27/2019 8:44 AM FEATHER WASHER Height 165.1 cm (5' 5 ) 01/27/2019 8:44 AM FEATHER WASHER Body Mass Index 23.63 01/27/2019 8:44 AM FEATHER WASHER documented in this encounter Progress Notes * Mckayla Haywood MD - 01/27/2019 8:46 AM CST Current Outpatient Medications Medication Sig Dispense Refill ??? ABILIFY MAINTENA 300 MG injection Inject 1.5 mL into muscle every 28 days 1 Each 3 ??? albuterol HFA (PROVENTIL;VENTOLIN;PROAIR) 108 (90 BASE) MCG/ACT inhaler Inhale 2 Puffs by mouthevery 6 hours ??? Albuterol Sulfate (PROAIR RESPICLICK) 108 (90 Base) MCG/ACT ??? baclofen (LIORESAL) 10 MG tablet Take 1 tablet by mouth 2 times daily May cause drowsiness. 60 tablet 5 ??? benzoyl peroxide (BENZAC) 10 % wash Wash face and body with once daily 1 bottles 11 ??? benztropine (COGENTIN) 1 MG tablet Take 1 tablet by mouth once daily 30 tablet 3 ??? budesonide-formoterol (SYMBICORT) 160-4.5 MCG/ACT inhaler INHALE 2 PUFFS BY MOUTH TWICE DAILY ??? tasemuuico-wjtpjbajjnlvc-zqoyiike (FIORICET) 50-325-40 MG tablet Take 1 tablet by mouth every 4hours as needed for Headache (no additional tylenol or acetamenophen with this medication.) 30 tablet 5 ??? erythromycin (ERYDERM) 2 % solution Apply 1-2 times daily to entire face 60 mL 11 ??? escitalopram (LEXAPRO) 20 MG tablet TAKE 1 TABLET BY MOUTH EVERY DAY 30 tablet 0 ??? AS-I2-N92-Omega 3-Phytosterols (BP VIT 3) 1 MG CAPS ??? fluticasone propionate (FLONASE) 50 MCG/ACT nasal spray spray 1 spray by intranasal route everyday in each nostril ??? fluticasone propionate (FLONASE) 50 MCG/ACT nasal spray [place] 1 [place] into the nose ??? hydrOXYzine hcl (ATARAX) 25 MG tablet hydroxyzine HCl 25 mg tablet ??? ibuprofen (MOTRIN) 800 MG tablet Take 1 tablet by mouth 2 times daily as needed (for headache) 60 tablet 5 ??? LORazepam (ATIVAN) 1 MG tablet lorazepam 1 mg tablet ??? Ocrelizumab (OCREVUS IV) 600 mg by Intravenous route Reasons: every 6 months ??? onabotulinumtoxin A (BOTOX) 100 units injection Inject 200 Units into muscle Every 90 days Reasons: Migraine Headache 2 Each 3 ??? onabotulinumtoxin A (BOTOX) 100 units injection Inject 200 Units into muscle Every 90 days 2 Each 3 ??? raNITIdine (ZANTAC) 150 MG tablet Take 1 tablet by mouth 2 times daily as needed ??? SUMAtriptan (IMITREX) 5 MG/ACT nasal spray ??? SUMAtriptan (IMITREX) 50 MG tablet sumatriptan 50 mg tablet ??? tretinoin (RETIN-A) 0.01 % gel Pea sized amount to entire face at night. 30 days supply. 45 g 3 ??? tretinoin (RETIN-A) 0.1 % cream Pea sized amount to entire face at night. 30 days supply. 45 g 3 ??? vitamin D3 (CHOLECACIFEROL) 5000 UNITS Take 1 tablet by mouth once daily 30 tablet 5 ??? zonisamide (ZONEGRAN) 100 MG capsule TAKE 4 CAPSULES BY MOUTH AT BEDTIME 120 capsule 5 No current facility-administered medications for this visit. Here for botox for chronic migraine. Last botox treatment 10/21/2018. Baseline headaches 30 per month, current headaches 3-4/month. No side effects from Botox reported.she is currently on Imitrex and Fioricet for abortive therapy. She is on zonisamide for both seizures and migraine. Neurological exam remained stable. Head atraumatic, neck supple, heart regular Neurologically awake and alert, counters intact, strength 5 out of 5 Administered Botox today.. Reviewed side effects medications. She is also seeing her MS provider for MS, in being seen in the epilepsy clinic for seizures. HER WASHER documented in this encounter Procedure Notes * Mckayla Haywood MD - 01/27/2019 8:52 AM CSTAssociated Order(s): PROC INJECTION - BOTOX Pre-Procedure Diagnose(s): Intractable chronic migraine without aura [...] aura, intractable, with status migrainosus Procedure code: 68040 History: Baseline number of headaches per month:30 [...] treatment. Ordered 200 units for next visit. HER WASHER documented in this encounter Plan of Treatment Upcoming Encounters Date Type Department Care Team (Late st Contact Info) Description 04/04/2024 8:30 AM FEATHER WASHER Office Visit [facility] - Dermatology [address] [place] [address] [place] [phone] Marlys Zaragoza MD [address] [place] [address] 3 [place] [phone] 09/03/2024 9:00 AM CDT Office Visit [facility] - Neurology [address] [place] [address] [place] [address] Melissa Crook, REED POLISHER-PRODUCTION SUPERINTENDENT HYDRO [address] [place] [phone] documented as of this encounter Procedures Procedure Name Priority Date/Time Associated Diagnosis Comments PROC INJECTION - BOTOX Routine 01/27/2019 8:52 AM FEATHER WASHER Intractable chronic 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 without status migrainosus documented in this encounter Results * PROC INJECTION - BOTOX (01/27/2019 8:52 AM FEATHER WASHER) Narrative Mckayla Haywood MD - 01/27/2019 8:52 AM FEATHER WASHER Mckayla Haywood MD ? 01/27/2019 ??9:59 AM [...] intractable, with status migrainosus ?? Procedure code: 27886 History: Baseline number of headaches per month:30 [...] 200 Units, Intramuscular, ONCE, 1 dose, On Sun01/27/19 at 0915 $ Given 01/27/2019 9:59 AM FEATHER WASHER 200 Units Head documented in this encounter Care Teams Head Of Design Relationship Specialty Start Date End Date Lauren Saba, REED POLISHER-PRODUCTION SUPERINTENDENT HYDRO [address] [place] [phone] PCP - General 01/14/18 05/10/23 documented as of this encounter
--- OUTSIDE RECORDS SUMMARY | 2024-03-22 16:39 | XMS_ITS | Encounter Summary ---
Author Organization [facility] Health Address [address] [place] [address] Care Team Providers Care Hearing Stenographer Name Role Phone WandyLauren APRN-[facility] Primary Care Provider Reason for Referral * Radiology Services (Routine) - Closed Specialty Diagnoses / Procedures Referred By Contac t Referred To Contact MRI Diagnoses Multiple sclerosis (HCC) Procedures MRI BRAIN WWO CONTRAST Markus Cabral MD [address] [place] [address] [facility] Mri [address] [place] [phone] Referral ID Status Reason Start Date Expiration Date Visits Re quested Visits Authorized [id number] Closed 09/08/2019 03/06/2020 1 1 Reason for Visit * Radiology Services (Routine) - Closed Specialty Diagnoses / Procedures Referred By Contac t Referred To Contact MRI Diagnoses Multiple sclerosis (HCC) Procedures MRI BRAIN WWO CONTRAST Markus Cabral MD [address] [place] [address] [facility] Mri [address] [place] [phone] Referral ID Status Reason Start Date Expiration Date Visits Re quested Visits Authorized [id number] Closed 09/08/2019 03/06/2020 1 1 Encounter Details Date Type Department Care Team (Latest Contact Info) Description 09/25/2019 6:00 AM CDT - 09/25/2019 11:59 PM CDT Hospital Encounter [facility] MRI [address] [place] [phone] Markus Cabral MD [address] [place] [address] Discharge Disposition: Home or Self Care Social [...] 2020 ALPRAZolam (XANAX) 0.5 MG tablet Take 1 tab 30 min before MRI 1 tablet 09/02/2019 10/15/2019 baclofen (LIORESAL) 10 MG tabletIndications:MS (multiple sclerosis) ([facility]),Vitamin D deficiency,High risk medication use,Nonintractable epilepsy without status epilepticus, unspecified epilepsy type ([facility]),Mild cognitive impairment,Intractabl e chronic 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 without status migrainosus,Spasticit y Take 1 tablet by mouth 2 times daily May cause drowsiness. 60 tablet 5 08/04/2019 02/10/2020 benzoyl peroxide (BENZAC) 10 % washIndications:Acne vulgaris Wash face and body with once daily 1 bottles 11 11/07/2018 02/02/2020 budesonide-formoterol (SYMBICORT) 160-4.5 MCG/ACT inhaler INHALE 2 PUFFS BY MOUTH TWICE DAILY 04/11/2021 butalbital-acetaminop hen-caffeine (FIORICET) 50-325-40 MG tabletIndications:Non intractable epilepsy without status epilepticus, unspecified epilepsy type ([facility]) TAKE 1 TABLET BY MOUTH EVERY 4 HOURS NEEDED FOR HEADACHE(NO ADITIONAL TYLENOL) 30 tablet 3 04/24/2019 05/07/2020 Qshiuigqdm-QGKR-Txedd ine 50-325-40 MG butalbital-acetamino phen-caffeine 50 mg-325 mg-40 mg capsule Take 1 capsule every 4 hours by oral route. 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) TAKE 1 TABLET BY MOUTH TWICE DAILY NEEDED FOR HEADACHE 60 tablet 5 05/05/2019 10/31/2019 Ocrelizumab (OCREVUS IV)Indications:every 6 months 600 mg by Intravenous route Reasons: every 6 months 04/11/2021 onabotulinumtoxin A (BOTOX) 100 units injectionIndications: Migraine Inject 200 Units into muscle Every 90 days Reasons: Migraine Headache 2 Each 3 07/09/2019 10/13/2019 SUMAtriptan (IMITREX) 50 MG tablet sumatriptan 50 mg tablet 10/29/2020 tretinoin (RETIN-A) 0.01 % gel APPLY A PEA SIZE AMOUNT TO ENTIRE FACE EVERY NIGHT AT BEDTIME 45 g 4 06/05/2019 02/02/2020 tretinoin (RETIN-A) 0.1 % cream Pea sized amount to entire face at night. 30 days supply. 45 g 3 11/14/2018 02/02/2020 zonisamide (ZONEGRAN) 100 MG capsuleIndications:No nintractable epilepsy without status epilepticus, unspecified epilepsy type (HCC),Medication monitoring encounter Take 5 capsules by mouth at bedtime 150 capsule 5 06/02/2019 12/29/2019 documented as of this encounter Plan of Treatment Upcoming Encounters Date Type Department Care Team (Late st Contact Info) Description 04/04/2024 8:30 AM STARTER CUP POWDER MIXER Office Visit [facility] - Dermatology [address] [place] [address] [place] [phone] Marlys Zaragoza MD [address] [place] [address] [place] [phone] 09/03/2024 9:00 AM CDT Office Visit [facility] - Neurology [address] [place] [phone] Melissa Crook, LISETTE-NAIF [address] [place] [phone] documented as of this encounter Procedures Procedure Name Priority Date/Time Associated Diagnosis Comments MRI BRAIN WWO CONTRAST Routine 09/25/2019 8:12 AM CDT Multiple sclerosis (HCC) documented in this encounter [...] stated age. Dictated by Francisca Baeza M.D. (senior vice president and chief information officer). This report was approved ??by Francisca Baeza [...] stated age. Dictated by Francisca Baeza M.D. (senior vice president and chief information officer). This report was approved by Francisca Baeza on 09/25/2019 2:58 PM . I, Dr. DAMON TOWNSEND have personally reviewed and interpreted this examination/study. This report was electronically signed by DAMON TOWNSEND on09/25/2019 2:58 PM . Markus Cabral MD MR ORDERABLES documented in this encounter Visit Diagnoses Diagnosis Multiple sclerosis (HCC) Multiple sclerosis documented in this encounter Administered Medications Inactive Administered Medications - up to 3 most recent administrations Medication Order MAR Action Action Date Dose Rate Site gadobutrol (GADAVIST) injection Intravenous, CONTRAST ONCE, Starting on Yaa 09/25/19 at 0648, Until Sun09/26/19 at 0120 $ Given - Contrast 09/25/2019 8:12 AM CDT 6 mL documented in this encounter Care Teams Hearing Stenographer Relationship Specialty Start Date End Date Lauren Saba, SENIOR PRINCIPAL SOFTWARE ENGINEER-ROTARY DRIER OPERATOR [address] [place] [phone] PCP - General 01/14/18 05/10/23 documented as of this encounter
--- OUTSIDE RECORDS SUMMARY | 2024-03-22 16:39 | XMS_ITS | Encounter Summary ---
Author Organization [facility] Health Address [address] [place] [address] Care Team Providers Care Bobbin Disker Name Role Phone Lauren Saba Jose Eduardo KNOX-CUPOLA MAN Primary Care Provider Reason for Visit * Reason Comments Skin Lesion fbse Encounter Details Date Type Department Care Team (Late st Contact Info) Description 11/07/2018 1:00 PM CDT Office Visit [facility] [address] [place] [address] Marcel Castano MD [address] [place] [address] Acne vulgaris (Primary Dx); Labial melanotic macule; Nevus anemicus; Multiple benign melanocytic nevi of upper and lower extremities and trunk; Solar lentiginosis; Seborrheic keratosis Social History Tobacco Use Types [...] this encounter Patient Instructions * Patient Instructions* Marcel Castano MD - 11/07/2018 1:19 PM CDT Thank you for coming to your appointment today. Please plan follow up in 12 months. For skin cancer prevention: We recommend DAILY sun protection and MONTHLY self skin exams. Examine your moles for any changes. Alert us of any moles that are asymmetrical, have irregular borders, more than one color in a mole, larger than end of a pencil eraser, or anything that is changing over time (A-B-C-D-Es of Melanoma). See below for sun screen recommendations. ?? SUNSCREENS UVA and UVB PROTECTION ? Sunlight consists of two types of light that can cause or worsen most skin problems: ?? UVA (ultraviolet A) Brown spots Wrinkles Aging Rosacea Less variation with seasons All year round All day strong No rating system available Passes through glass and clouds ?? UVB (ultraviolet B) Skin cancers Sunburn Tanning Strongest in summer Peak hours 10am to 2pm SPF rates UVB protection ? Sunscreens that block both UVA and UVB light contain: Zinc Oxide (should contain at least 4% zinc oxide) Titanium Dioxide Parsol or Avobenzone (additives improve stability of Avobenzone) There are other UVA blocking ingredients but they are not as complete as these three. ?? Tips/Suggestions SPF of 30 or higher Zinc [...] documented in this encounter Progress Notes * Marcel Castano MD - 11/07/2018 1:05 PM CDT Chief Complaint Patient presents with ??? Skin Lesion fbse HPI: Meredith Frost a 37 year old female presents for follow up of acne. Patient was last seen on 11/20/17: 1) AV- cont erythro soln BID, benzac wash, tret 0.05% Cr QHS 2) labial melanotic macule- unchanged Concerns: AV Her condition is stable Current treatment: - erythromycin (A/T/S) 2 % Solution qod - Benzoyl Peroxide 10 % Liquid qd - Tretinoin 0.05% cream qod Side effects of treatment: No dryness, irritation from topicals 2) Has not noticed any changes to her melanotic labial macule on L lower mucosal lip, but wanted lesion evaluated to make sure we thought it looked ok. 3) spots on L arm -present years, seem to have merged together, no color changes PE: No acute distress. Mood clear/affect appropriate. Alert and oriented. Mucous membranes moist. Sclera anicteric. Visible skin exam was conducted to include the scalp, face, lips/teeth, lids/conjunctiva, ears, neck, right and left hands and forearms and was normal with the following exceptions: - no acneiform lesions on the face - dark brown pigmented macule on L lower mucosal lip; unchanged compared to photo from May 2017 - Multiple 2-6 mm [place] brown macules and papules and skin colored papules on face, trunk and extremities - Multiple [place] to light brown macules on face, shoulders and arms - Many [place] to brown thin waxy/hyperkeratotic stuck on papules on trunk, L forearm A/P: Meredith was seen today for follow-up and lesions. Diagnoses and all orders for this visit: Acne vulgaris - Well controlled - Continue erythromycin (ERYDERM) 2 % solution; Apply 1-2 times daily to entire face - Continue benzoyl peroxide (BENZAC) 10 % wash; Wash face and body with once daily - continue tretinoin (RETIN-A) 0.05 % cream; Apply thin layer to entire face nightly Labial melanotic macule - unchanged compared to the last visit - Benign, reassurance provided Multiple benign melanocytic nevi of trunk and extremities - Benign, reassurance - Counseled on importance of daily sun protection (Broad spectrum, SPF >30), monthly self skin exams - Reviewed ABCDEs of melanoma - Sun screen hand out provided Solar lentigines - Benign, reassurance - Counseling as above Seborrheic Keratoses - Benign, reassurance RTC in 1 year, sooner if acne flares or not controlled Marcel Castano MD Dermatology Resident, PGY-4 Associated attestation - Sarina Bryson DO - 11/07/2018 2:06 PM CDT Dermatology Resident Clinic Teaching Physician Supervisory Note I performed a history and physical examination of the patient. I supervised, reviewed, edited and confirm the rajan elements of the encounter, initiated by the resident. In summary, I found: 37 yo female, following up for acne. Well controlled on topicals. Monitoring spot left lower lip- unchanged per patient. PE: Face clear [place] macule left lower mucosal lip Scattered over trunk and extremities are numerous, 2-6 mm, evenly pigmented [place] to brown macules and papules [place] waxy thin papules left FA A/P Acne - Well controlled - Cont BP/erythro/tret Nevi/Lentigines - ABCDE, SSN, monthly self exams, yearly FBSE SK - benign, reassurance Mucosal macule - Cont to monitor, stable Sarina Bryson DO documented in this encounter Plan of Treatment Upcoming Encounters Date Type Department Care Team (Late st Contact Info) Description 04/04/2024 8:30 AM MARKETING ASSISTANT Office Visit [facility] Dermatology [address] [place] [address], [place] [phone] Marlys Zaragoza MD [address] [place] [address] [place] [phone] 09/03/2024 9:00 AM CDT Office Visit [facility] - Neurology [address] [place] [phone] Melissa Crook APRN-CUPOLA MAN [address] [place] [phone] documented as of this encounter Visit Diagnoses Diagnosis Acne vulgaris- Primary Other acne Labial melanotic macule Other dyschromia 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
--- OUTSIDE RECORDS SUMMARY | 2024-03-22 16:39 | XMS_ITS | Encounter Summary ---
Author Organization [facility] Health Address [address] [place] [address] Care Team Providers Care Warping Mill Operator Name Role Phone Lauren Saba Jose Eduardo KNOX-COMPUTER OPERATIONS ANALYST Primary Care Provider Encounter Details Date Type Department Care Team (Late Contact Info) Description 11/05/2018 Orders Only [facility] [place] [address] [place] [address] Deja Godinez, PharmD [address] [place] [address] Social History Tobacco Use Types Packs/Day Years [...] (Late Contact Info) Description 04/04/2024 8:30 AM AQUATIC PERFORMER Office Visit [facility] Dermatology [address] [place] [address], [place] [phone] Marlys Zaragoza MD [address] [place] [address] [address] [place] [address] 09/03/2024 9:00 AM CDT Office Visit [facility] - Neurology [address], [place] [address] Melissa Crook, RESEARCH PHARMACIST-COMPUTER OPERATIONS ANALYST [address] [place] [phone] documented as of this encounter Visit Diagnoses Not on filedocumented in this encounter Care Teams Warping Mill Operator Relationship Specialty Start Date End Date Lauren Saba APRN-COMPUTER OPERATIONS ANALYST [address] [place] [phone] PCP - General 01/14/18 05/10/23 documented as of this encounter
--- OUTSIDE RECORDS SUMMARY | 2024-03-22 16:39 | XMS_ITS | Encounter Summary ---
Author Organization [facility] Health Address [address] [place] [address] Care Team Providers Care Machine Finisher Name Role Phone Lauren Saba LISETTE-APPRENTICE PAINTER BRUSH Primary Care Provider Encounter Details Date Type Department Care Team (Late Contact Info) Description 10/28/2018 Orders Only [facility] [address] [place] [address] Markus Cabral MD [address] [place] [address] Social History Tobacco Use Types Packs/Day Years [...] (Late Contact Info) Description 04/04/2024 8:30 AM BARREL DRILLER Office Visit [facility] [address] [place] [phone] Marlys Zaragoza MD 12[address] [facility] 3L [place] [address] 09/03/2024 9:00 AM CDT Office Visit [facility] 12[address] [facility], [place] [phone] Melissa Crook, NITROCELLULOSE OPERATOR-APPRENTICE PAINTER BRUSH [address] [place] [address] documented as of this encounter Procedures Procedure Name Priority Date/Time Associated Diagnosis Comments QUANTIFERON-TB GOLD PLUS 1-TUBE 10/31/2018 11:22 AM CDT HEPATITIS C AB W/RFLX TO HCV RNA QN PCR 10/31/2018 11:22 AM CDT HEPATITIS B CORE ANTIBODY TOTAL 10/31/2018 11:22 AM CDT documented in this encounter Results * QUANTIFERON-TB GOLD PLUS 1-TUBE (10/31/2018 11:22 [...] T-lymphocytes. For additional information, please refer to https://education.Therapeutic Proteins/faq/APS175 (This link is being provided for informational/ educational purposes only.) REPORT COMMENT: FASTING:NO Test Performed at: [facility] [address] [place] ??[phone] BETTE ALVARES DO,MPH 10/31/2018 11:2 2 AM CDT 10/31/2018 11:25 AM CDT Markus Cabral MD LAB - CHEMISTRY ORDERABLES Performing Organization Address [facility] Co de Phone Number [facility] [address] [place] [phone] * HEPATITIS C AB W/RFLX TO HCV RNA QN PCR (10/31/2018 11:22 AM CDT) Hepatitis C Antibody NON-REACTI VE NON-REACT [facility] Signal to Cut-Off 0.02 <1.00 [facility] Comment: HCV antibody was non-reactive. There is no laboratory evidence of HCV infection. In most cases, no further action is required. However, if recent HCV exposure is suspected, a test for HCV RNA (test code 56525) is suggested. For additional information please refer to http://CareFamily.Therapeutic Proteins/faq/RSO86z2 (This link is being provided for informational/ educational purposes only.) Test Performed at: [facility] [address] [place] ??[phone] BETTE ALVARES DO,MPH 10/31/2018 11:2 2 AM CDT 10/31/2018 11:25 AM CDT Markus Cabral MD LAB - CHEMISTRY ORDERABLES Performing Organization Address [facility] Co de Phone Number [facility] [id number] [place] [phone] * HEPATITIS B CORE ANTIBODY (10/31/2018 11:22 AM CDT) Hepatitis B Core Virus Antibody Total NON-REACTI VE NON-REACT [facility] Comment: Test Performed at: [facility] [address] [place] ??[phone] BETTE ALVARES DO,MPH 10/31/2018 11:2 2 AM CDT 10/31/2018 11:25 AM CDT Markus Cabral MD LAB - CHEMISTRY ORDERABLES Performing Organization Address City/State/[facility] Co de Phone Number [facility] [address] [place] [address] documented in this encounter Visit Diagnoses Not on filedocumented in this encounter Care Teams Machine Finisher Relationship Specialty Start Date End Date Lauren Saba, NITROCELLULOSE OPERATOR-APPRENTICE PAINTER BRUSH [address] [place] [phone] PCP - General 01/14/18 05/10/23 documented as of this encounter
--- OUTSIDE RECORDS SUMMARY | 2024-03-22 16:39 | XMS_ITS | Encounter Summary ---
Author Organization [facility] Health Address [address] [facility] [place] [address] Care Team Providers Care Cnc Applications Engineer Name Role Phone Lauren Saba Jose Eduardo KNOX-COMMUTATOR INSPECTOR Primary Care Provider Reason for Visit * Oncology Prior Authorization (Routine) - Closed Specialty Diagnoses / Procedures Referred By Contdanny t Referred To Contact Diagnoses MS (multiple sclerosis) (HCC) Procedures [place] INJ OCRELIZUMAB 1MG Deja Schumacher, PharmD [address] [place] [address] [facility] [address] [place] [address] Referral ID Status Reason Start Date Expiration Date Visits Re quested Visits Authorized [id number] Closed 11/05/2018 05/04/2019 99 99 Encounter Details Date Type Department Care Team (Latest Contact Info) Description 05/14/2019 9:00 AM TICKET DISPATCHER Procedure visit [facility] [place] [address] [place] [address] MS (multiple sclerosis) (HCC) Social [...] Sign Reading Time Taken Comments Blood Pressure 104/68 05/14/2019 9:23 AM TICKET DISPATCHER Pulse 75 05/14/2019 9:23 AM TICKET DISPATCHER Temperature 36.1 ??C (97 ??F) 05/14/2019 9:23 AM TICKET DISPATCHER Respiratory Rate 16 05/14/2019 9:23 AM TICKET DISPATCHER Oxygen Saturation 98% 05/14/2019 9:23 AM TICKET DISPATCHER Inhaled Oxygen Concentration - - Weight 61 kg (134 lb 6.4 oz) 05/14/2019 9:23 AM TICKET DISPATCHER Height 165.1 cm (5' 5 ) 05/14/2019 9:23 AM TICKET DISPATCHER Body Mass Index 22.37 05/14/2019 9:23 AM TICKET DISPATCHER documented in this encounter Plan of Treatment Upcoming Encounters Date Type Department Care Team (Late st Contact Info) Description 04/04/2024 8:30 AM TICKET DISPATCHER Office Visit [facility] [address] [place] [address], [place] [phone] Marlys Zaragoza MD [address] [place] [address] [place] [phone] 09/03/2024 9:00 AM CDT [facility] [address] [place] [phone] Melissa Crook APRN-COMMUTATOR INSPECTOR [address] [place] [phone] documented as of this encounter Visit Diagnoses Diagnosis MS (multiple sclerosis) (HCC)- Primary Multiple sclerosis documented in this encounter Administered Medications Inactive Administered Medications - up to 3 most recent administrations Medication Order MAR Action Action Date Dose Rate Site acetaminophen (TYLENOL) tablet 650 mg 650 mg, Oral, ONCE, 1 dose, On Sun05/14/19 at 0945, Maximum allowable Acetaminophen amount = 4 Grams (4000 mg) / 24 hours. Administer pre-medications 30-60 minutes prior to ocrelizumab. $ Given 05/14/2019 9:40 AM TICKET DISPATCHER 650 mg diphenhydrAMINE (BENADRYL) capsule 50 mg 50 mg, Oral, ONCE, 1 dose, On Sun05/14/19 at 0945, Use IV if patient not tolerating PO Administer pre-medications 30-60 minutes prior to ocrelizumab. $ Given 05/14/2019 9:40 AM TICKET DISPATCHER 50 mg methylPREDNISolone sod succ (SOLU-Medrol) injection 125 mg 125 mg, Intravenous, ONCE, 1 dose, On Sun05/14/19 at 1000 $ Given 05/14/2019 9:47 AM TICKET DISPATCHER 125 mg ocrelizumab (OCREVUS) 600 mg in 0.9% NaCl 520 mL infusion 600 mg, Intravenous, CONTINUOUS, Starting on Sun05/14/19 at 1015, Until Sun05/14/19 at 1629, Start at 40 mL/hr and increase by 40 mL/hr every 30 minutes to a maximum of 200 mL/hr. Observe patient for 1 hour post infusion Administer via dedicated line with a 0.2 or 0.22 micron in-line filter $ New Bag/Syringe 05/14/2019 10:19 AM TICKET DISPATCHER 600 mg 40 mL/hr documented in this encounter Care Teams Cnc Applications Engineer Relationship Specialty Start Date End Date Lauren Saba APRN-COMMUTATOR INSPECTOR [address] [place] [phone] PCP - General 01/14/18 05/10/23 documented as of this encounter
--- OUTSIDE RECORDS SUMMARY | 2024-03-22 16:39 | XMS_ITS | Encounter Summary ---
Author Organization [facility] Health Address [address] [facility] [place] [address] Care Team Providers Care Painter Sign Maintenance Name Role Phone Lauren Saba LISETTE-WEB MERCHANDISER Primary Care Provider Reason for Visit * Reason Onset Date Comments MEDICATION REFILL 10/31/2019 Encounter Details Date Type Department Care Team (Late Contact Info) Description 10/31/2019 Refill [facility] [address] [place] [address] Markus Cabral MD [address] [place] [address] MEDICATION REFILL Social History Tobacco Use Types [...] (Late Contact Info) Description 04/04/2024 8:30 AM BONDERIZER OPERATOR Office Visit [facility] [address] [place] [phone] Marlys Zaragoza MD [address] [facility] 3L [place] [phone] 09/03/2024 9:00 AM CDT Office Visit 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
--- OUTSIDE RECORDS SUMMARY | 2024-03-22 16:39 | XMS_ITS | Encounter Summary ---
Author Organization [facility] Health Address [address] [facility] [place] [address] Care Team Providers Care Cream Beater Name Role Phone Lauren Saba Jose Eduardo KNOX-WINDING OPERATOR Primary Care Provider Reason for Visit * Reason Comments Botox Encounter Details Date Type Department Care Team (Latest Contact Info) Description 10/13/2019 9:00 AM CDT Procedure visit [facility] [address] [place] [address] Mckayla Haywood MD [address] [place] [phone] Intractable chronic 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 without [...] Sign Reading Time Taken Comments Blood Pressure 114/70 10/13/2019 8:54 AM CDT Pulse 80 10/13/2019 8:54 AM CDT Temperature - - Respiratory Rate - - Oxygen Saturation - - Inhaled Oxygen Concentration - - Weight 61.7 kg (136 lb) 10/13/2019 8:54 AM CDT Height - - Body Mass Index 22.63 09/01/2019 10:31 AM CDT documented in this encounter Progress Notes * Malina Lala RN - 10/14/2019 12:17 PM CDT OPENED IN ERROR * Mckayla Haywood MD - 10/13/2019 9:00 AM CDT Current Outpatient Medications Medication Sig [...] ??? ALPRAZolam (XANAX) 0.5 MG tablet Take 1 tab 30 min before MRI 1 tablet 0 ??? baclofen (LIORESAL) 10 MG tablet Take 1 tablet by mouth 2 times daily May cause drowsiness. 60 tablet 5 ??? benzoyl peroxide (BENZAC) 10 % wash Wash face and body with once daily 1 bottles 11 ??? budesonide-formoterol (SYMBICORT) 160-4.5 MCG/ACT inhaler INHALE 2 PUFFS BY MOUTH TWICE DAILY ??? dbbvwcsmyj-bmvmrmnythice-giahrklc (FIORICET) 50-325-40 MG tablet TAKE 1 TABLET BY MOUTH EVERY 4HOURS NEEDED FOR HEADACHE(NO ADITIONAL TYLENOL) 30 tablet 3 ??? erythromycin (ERYDERM) 2 % solution Apply 1-2 times daily to entire face 60 mL 11 ??? escitalopram (LEXAPRO) 20 MG tablet Take 1 tablet by mouth once daily 90 tablet 3 ??? fluticasone propionate (FLONASE) 50 MCG/ACT nasal spray Burns 1 Burns into the nose ??? ibuprofen (MOTRIN) 800 MG tablet TAKE 1 TABLET BY MOUTH TWICE DAILY NEEDED FOR HEADACHE 60 tablet 5 ??? Ocrelizumab (OCREVUS IV) [...] current facility-administered medications for this visit. BP 114/70 Pulse 80 Wt 136 lb (61.7 kg) BMI 22.63 kg/m2 History of MS and seizures followed in MS and epilepsy clinic. documented in this encounter Procedure Notes * Mckayla Haywood MD - 10/13/2019 8:52 AM CDTAssociated Order(s): PROC INJECTION - BOTOX Procedure(s): TX CHEMODENERV MUSC MIGRAINE Pre-Procedure Diagnose(s): Intractable chronic [...] aura, intractable, with status migrainosus Procedure code: 47597 History: Baseline number of headaches per month:30 [...] treatments: sumatriptan, fioricet Date of last injection: 07/09/2019 Duration of benefit: 3 months Side effects [...] Contact Info) Description 04/04/2024 8:30 AM PROSTHETIC ASSISTANT Office Visit [facility] [address] [place] [address], [place] [phone] Marlys Zaragoza MD [address] [facility] 3L [place] [phone] 09/03/2024 9:00 AM CDT Office Visit [facility] [address] [place] [address], [place] [phone] Melissa Crook, CRIME VICTIM SPECIALIST-WINDING OPERATOR [address] [place] [address] documented as of this encounter Procedures Procedure Name Priority Date/Time Associated Diagnosis Comments TX CHEMODENERV MUSC MIGRAINE Routine 10/13/2019 8:52 AM CDT Intractable chronic 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 without status migrainosus documented in this encounter Results * TX CHEMODENERV MUSC MIGRAINE (10/13/2019 8:52 AM CDT) [...] intractable, with status migrainosus ?? Procedure code: 15975 History: Baseline number of headaches per month:30 [...] 200 Units, Intramuscular, ONCE, 1 dose, On Sun10/13/19 at 0900 $ Given 10/13/2019 10:04 AM CDT 200 Units Head documented in this encounter Care Teams Cream Beater Relationship Specialty Start Date End Date Lauren Saba APRN-WINDING OPERATOR [address] [place] [phone] PCP - General 01/14/18 05/10/23 documented as of this encounter
--- OUTSIDE RECORDS SUMMARY | 2024-03-22 16:39 | XMS_ITS | Encounter Summary ---
Author Organization [facility] Health Address [address] [place] [address] Care Team Providers Care Aquarist Name Role Phone Lauren Saba APRN-BRAIDING OPERATOR Primary Care Provider A, Unknown Practice Primary Care Provider [phone] Unknown, Provider Primary Care Provider Joy Garvey PA-C Primary Care Provider [phone] Reason for Visit * Reason Onset Date Comments Referral 01/23/2020 Occupational Therapy 01/23/2020 Encounter Details Date Type Department Care Team (Late st Contact Info) Description 01/23/2020 Telephone [facility] [address] [place] [address] Kierra Castro Referral; Occupational Therapy Social History Tobacco Use Types Packs/Day Years [...] encounter Miscellaneous Notes * Telephone Encounter - Kierra Castro - 01/23/2020 2:17 PM CST Pt call into the Call Center today.. She stated to me that she received an Order to see an Occupational Therapist outside [facility], but Iwasn't able to locate the referral in [facility].. Pt has left several messages and requesting a call back from someone in the office... CTOR OF RESIDENTIAL SERVICES documented in this encounter Plan of Treatment Upcoming Encounters Date Type Department Care Team (Late st Contact Info) Description 04/04/2024 8:30 AM DIRECTOR OF RESIDENTIAL SERVICES Office Visit [facility] - Dermatology [address] [place] [address], [place] [address] Marlys Zaragoza MD [address] [place] [address] 3 [place] [phone] 09/03/2024 9:00 AM CDT Office Visit [facility] - Neurology [address] [place] [address] [place] [phone] Melissa Crook APRN-BRAIDING OPERATOR [address] [place] [phone] documented as of this encounter Visit Diagnoses Not on filedocumented in this encounter Additional Health Concerns Infection Onset Date Last Indicated Resolved Time COVID-19 Confirmed 04/08/2021 04/08/2021 2 4:33 AM DIRECTOR OF RESIDENTIAL SERVICES documented as of this encounter Care Teams Aquarist Relationship Specialty Start Date End Date Lauren Saba, RETAIL SALES SPECIALIST-BRAIDING OPERATOR [address] [place] [phone] PCP - General 01/14/18 05/10/23 A, Unknown Practice [address] [place] [phone] PCP - General 05/11/23 09/10/23 Unknown, Provider PCP - General 09/11/23 01/28/24 Joy Sheppard PA-C [address] [place] [phone] PCP - General 01/29/24 documented as of this encounter
--- OUTSIDE RECORDS SUMMARY | 2024-03-22 16:39 | XMS_ITS | Encounter Summary ---
Author Organization [facility] Address [address] [facility] [place] [address] Care Team Providers Care Computing Systems Mechanic Name Role Phone Lauren Saba Primary Care Provider Reason for Visit * Reason Onset Date Comments Imm Inj Imm Inj 11/14/2019 Encounter Details Date Type Department Care Team (Late st Contact Info) Description 11/14/2019 7:00 PM CDT Office Visit [facility] [address] [phone] Provider, [facility] Need for prophylactic vaccination and inoculation against influenza (Primary Dx) Social History Tobacco Use Types [...] PM CDT documented as of this encounter Progress Notes * Gail Ann, ADI - 11/14/2019 12:46 PM CDT Flu screening checklist was reviewed with the patient. VIS was offered prior to administration. Injection site aseptically cleansed and injection given per Immunization(s) protocol. See Imm/Injections activity for details. documented in this encounter Plan of Treatment Upcoming Encounters Date Type Department Care Team (Late st Contact Info) Description 04/04/2024 8:30 AM PLANT OPERATIONS MANAGER Office Visit [facility] Dermatology [address] [place] [address], [place] [phone] Marlys Zaragoza MD [address] [place] [address] 3 [place] [phone] 09/03/2024 9:00 AM CDT Office Visit [facility] [address] [place] [address] [place] [phone] Melissa Crook APRN-CNP [address] [place] [phone] documented as of this encounter Visit Diagnoses Diagnosis Need for prophylactic vaccination and inoculation against influenza- Primary documented in this encounter Care Teams Computing Systems Mechanic Relationship Specialty Start Date End Date Lauren Saba APRN-CNP [address] [place] [phone] PCP - General 01/14/18 05/10/23 documented as of this encounter
--- OUTSIDE RECORDS SUMMARY | 2024-03-22 16:39 | XMS_ITS | Encounter Summary ---
Author Organization [facility] Health Address [address] [facility] [place] [address] Care Team Providers Care Medicinal Plant Picker Name Role Phone Lauren Saba Jose Eduardo KNOX-TENSIONING MACHINE OPERATOR Primary Care Provider Reason for Visit * Reason Comments Blurred Vision Encounter Details Date Type Department Care Team (Late st Contact Info) Description 12/05/2019 8:00 AM CDT Office Visit [facility] Ophthalmology [address] [place] [phone] Encounter for long-term (current) use of medications (Primary Dx) Social History Tobacco Use Types [...] as of this encounter Progress Notes * Carlos Alberto Castillo I, OD - 12/17/2019 8:04 AM CDT HPI Chief Complaint Patient presents with ??? Blurred Vision Meredith Frost is a 39 year old female here for an annual eye exam. She has a Hx of bilateral ANIA. Shewas referred here by [facility] for an unknown reason. She does have floaters, and no flashes. She currently wears Acuvue Two CLs most of the time, and glasses checking department supervisor. She is happy with her glasses right now. The following was also reviewed and updated: [...] 2 PUFFS BY MOUTH TWICE DAILY ??? ijhnwhsuuk-yaiqbstjhqsty-rbpceylt (FIORICET) 50-325-40 MG tablet TAKE 1 TABLET BY MOUTH EVERY 4HOURS NEEDED FOR HEADACHE(NO ADITIONAL TYLENOL) 30 tablet 3 ??? erythromycin (ERYDERM) 2 % solution Apply 1-2 times daily to entire face 60 mL 11 ??? escitalopram (LEXAPRO) 20 MG tablet Take 1 tablet by mouth once daily 90 tablet 3 ??? fluticasone propionate (FLONASE) 50 MCG/ACT nasal spray Lie[place] 1 [place] into the nose ??? ibuprofen (MOTRIN) 800 [...] visit. No Known Allergies Review of Systems No past medical history on file. Past Surgical History: Procedure Laterality Date ??? CA CHEMODENERV MUSC MIGRAINE 07/18/2017 ??? CA CHEMODENERV MUSC MIGRAINE 10/17/2017 ??? CA CHEMODENERV MUSC MIGRAINE 01/14/2018 ??? CA CHEMODENERV MUSC MIGRAINE 04/15/2018 ??? CA CHEMODENERV MUSC MIGRAINE 07/22/2018 ??? CA CHEMODENERV MUSC MIGRAINE 10/21/2018 ??? CA CHEMODENERV MUSC MIGRAINE 10/13/2019 Family History Problem Relation Name Age of Onset ??? Depression Neg Hx ??? Seizures Neg Hx Social History Tobacco Use ??? Smoking status: Never Smoker ??? Smokeless tobacco: Never Used Substance Use Topics ??? Alcohol use: Yes Alcohol/week: 4.0 - 7.0 standard drinks Types: 1 - 2 Glasses of wine, 1 - 2 Cans of beer, 1 Shots of liquor, 1 - 2 Standard drinks or equivalent per week Comment: socially- once- twice a month ??? Drug use: Yes Types: Marijuana Comment: Daily Base Eye Exam Visual Acuity (Snellen - Linear) Right Left Dist cc 20/20 -3 20/25 -3 Correction: Glasses Tonometry (GAT/Manual , 8:36 AM) Right Left Pressure 18 s/e Pupils Pupils APD Right PERRL None Left PERRL None Visual De (Counting fingers) Left Right Full Full Extraocular Movement Right Left Full Full Neuro/Psych Oriented x3: Yes Dilation Both eyes: 1.0% Mydriacyl, 2.5% Gil Synephrine @ 8:39 AM Strabismus Exam Method: CT Distance Near Near +3DS N Bifocals Bilateral ANIA, micronystagmus OU Slit Lamp and Fundus Exam External Exam Right Left External Normal Normal Slit Lamp Exam Right Left Lids/Lashes Normal Normal Conjunctiva/Sclera White and quiet White and quiet Cornea Clear Clear Anterior Chamber Deep and quiet Deep and quiet Iris Round and reactive Round and reactive Lens Clear Clear Vitreous Normal Normal Fundus Exam Right Left Disc flat, no edema flat, no edema C/D Ratio 0.4 0.4 Macula Normal Normal Vessels Normal Normal Periphery Normal Normal Refraction Wearing Rx Sphere Cylinder Soso Right -6.50 +0.75 105 Left -6.00 Sphere Age: 6 mo Type: SV Manifest Refraction Sphere Cylinder Soso Dist VA Right -7.25 +0.75 095 20/20 Left -6.50 +0.50 060 20/25 Final Rx Sphere Cylinder Soso Dist VA Right -7.25 +0.75 095 20/20 Left -6.50 +0.50 060 20/25 Expiration Date: 12/05/2021 Study findings: None Assessment/Plan Ms Frost is a 39 YO lady seen today in general clinic . The primary reason for the visit is for follow up referral from [facility] for unknown reason. The patient appears well nourished, well developed and in no distress, she denies flashes, floaters, double vision, metamorphopsia, burning, itching, redness, watering, or discharge. She does currently wear corrective lenses. Assessment: 1) Normal exam 2) No evidence of ONH abnormality or macular anomaly 3) H/O of high risk med Plan: 1) Stay with current MRx 2) RTC annually I reviewed the ROS, allergies, social history and current medications Pt verbalizes understanding of the above assessment/plan, all questions were answered, and pt agrees to follow-up as directed. The patient was examined in conjunction with a senior optometry internal sales. I repeated multiple portions of the examination and confirm these notes as I have edited. Carlos Alberto Castillo, FRANCHESCA documented in this encounter Plan of Treatment Upcoming Encounters Date Type Department Care Team (Late st Contact Info) Description 04/04/2024 8:30 AM DIVISION SUPERINTENDENT Office Visit [facility] - Dermatology [address] [place] [address], [place] [address] Marlys Zaragoza MD [address] [place] [address] [address]L [place] [address] 09/03/2024 9:00 AM CDT Office Visit [facility] - Neurology [address] [facility], [place] [address] Melissa Crook APRN-TENSIONING MACHINE OPERATOR [address] [place] [phone] documented as of this encounter Visit Diagnoses Diagnosis Encounter for long-term (current) use of medications- Primary Encounter for long-term (current) use of other medications documented in this encounter Care Teams Medicinal Plant Picker Relationship Specialty Start Date End Date Lauren Saba APRN-TENSIONING MACHINE OPERATOR [address] [place] [phone] PCP - General 01/14/18 05/10/23 documented as of this encounter
--- OUTSIDE RECORDS SUMMARY | 2024-03-22 16:39 | XMS_ITS | Encounter Summary ---
Author Organization [facility] Health Address [address] [place] [address] Care Team Providers Care Electric Motor Analyst Name Role Phone Lauren Saba Jose Eduardo KNOX-HEAD OF GLOBAL STRATEGIC PARTNERSHIPS Primary Care Provider Reason for Visit * Reason Comments Refill Request Encounter Details Date Type Department Care Team (Late st Contact Info) Description 06/05/2019 Refill [facility] General Dermatology [address] [place] [address] Marcel Castano MD [address] [place] [address] Refill Request Social History Tobacco Use Types [...] encounter Miscellaneous Notes * Telephone Encounter - Carey Wiggins MA - 06/05/2019 3:39 PM CDT CRISTELA was 11/07/2018, with Dr. Castano, was advised to continue tret and RTC in 1 year Will refill until 10/2019 Carey Wiggins MA documented in this encounter Plan of Treatment Upcoming Encounters Date Type Department Care Team (Late st Contact Info) Description 04/04/2024 8:30 AM CLOCK AND WATCH HANDS DIPPER Office [facility] - Dermatology [address] [place] [address], [place] [address] Marlys Zaragoza MD [address] [place] [address] 3 [place] [phone] 09/03/2024 9:00 AM CDT Office Visit [facility] - Neurology [address] [place] [phone] Melissa Crook APRN-HEAD OF GLOBAL STRATEGIC PARTNERSHIPS [address] [place] [phone] documented as of this encounter Visit Diagnoses Not on filedocumented in this encounter Care Teams Electric Motor Analyst Relationship Specialty Start Date End Date Lauren Saba BEESWAX BLEACHER-HEAD OF GLOBAL STRATEGIC PARTNERSHIPS [address] [place] [phone] PCP - General 01/14/18 05/10/23 documented as of this encounter
--- OUTSIDE RECORDS SUMMARY | 2024-03-22 16:39 | XMS_ITS | Encounter Summary ---
Author Organization [facility] Health Address [address] [facility] [facility] [address] Care Team Providers Care Mask Layout Designer Name Role Phone Lauren Saba LISETTE-RESEARCH LEADER Primary Care Provider Reason for Visit * Reason Comments Refill Request Encounter Details Date Type Department Care Team (Late Contact Info) Description 12/19/2018 Refill [facility] Neurology [address] [place] [address] Mckayla Haywood MD [address] [place] [phone] Refill Request Social History Tobacco Use Types [...] Upcoming Encounters Date Type Department Care Team ([facility] Contact Info) Description 04/04/2024 8:30 AM WATER RESTORATION TECHNICIAN Office Visit [facility] - Dermatology [address] [place] [phone] Marlys Zaragoza MD [address] [facility] 3L [place] [phone] 09/03/2024 9:00 AM CDT Office Visit [facility] - Neurology [address] [facility], [place] [phone] Melissa Crook APRN-RESEARCH LEADER [address] [place] [phone] documented as of this encounter Visit Diagnoses Diagnosis Nonintractable epilepsy without status epilepticus, unspecified epilepsy type (HCC) documented in this encounter Care Teams Mask Layout Designer Relationship Specialty Start Date End Date Lauren Saba APRN-RESEARCH LEADER [address] [place] [phone] PCP - General 01/14/18 05/10/23 documented as of this encounter
--- OUTSIDE RECORDS SUMMARY | 2024-03-22 16:39 | XMS_ITS | Encounter Summary ---
Author Organization [facility] Health Address [address] [facility] [place] [address] Care Team Providers Care Cone Machine Operator Name Role Phone Lauren Saba LISETTE-TRAVEL RN OR Primary Care Provider Encounter Details Date Type Department Care Team (Latest Contact Info) Description 09/01/2019 Travel Social History Tobacco Use Types Packs/Day [...] st Contact Info) Description 04/04/2024 8:30 AM FUSE CUP EXPANDER Office Visit [facility] - Dermatology [address] [place] [address], [place] [phone] Marlys Zaragoza MD [address] [place] [address] 3 [place] [phone] 09/03/2024 9:00 AM CDT Office Visit [facility] - [facility]rology [facility] [place] [address] Melissa Crook APRN-NAIF [address] [place] [phone] documented as of this encounter Visit Diagnoses Not on filedocumented in this encounter Care Teams Cone Machine Operator Relationship Specialty Start Date End Date Lauren Saba APRN-TRAVEL RN OR [address] [place] [phone] PCP - General 01/14/18 05/10/23 documented as of this encounter
--- OUTSIDE RECORDS SUMMARY | 2024-03-22 16:39 | XMS_ITS | Encounter Summary ---
Author Organization [facility] Health Address [address] [place] [address] Care Team Providers Care Stable Manager Name Role Phone Lauren Saba Jose Eduardo KNOX-CAMPUS MANAGER Primary Care Provider Reason for Visit * Reason Onset Date Comments Referral Request 01/27/2020 Encounter Details Date Type Department Care Team (Late st Contact Info) Description 01/27/2020 Telephone [facility] [address] [place] [address] Markus Cabral MD [address] [place] [phone] Referral Request Social History Tobacco Use Types Packs/Day [...] * Telephone Encounter - Kristan Avitia - 01/27/2020 3:00 PM CST PT REQUESTING A REFERRAL FOR OT. PLEASE ADVISE. rKistan Avitia STRIPPER documented in this encounter Plan of Treatment Upcoming Encounters Date Type Department Care Team (Late st Contact Info) Description 04/04/2024 8:30 AM REEL STRIPPER Office Visit [facility] - Dermatology [address] [place] [address], [place] [address] Marlys Zaragoza MD [address] [place] [address] 3 [place] [phone] 09/03/2024 9:00 AM CDT Office Visit [facility] - Neurology [address] [place] [phone] Melissa Crook, CLINICAL NURSING INSTRUCTOR-CAMPUS MANAGER [address] [place] [phone] documented as of this encounter Visit Diagnoses Not on filedocumented in this encounter Care Teams Stable Manager Relationship Specialty Start Date End Date Lauren Saba, CLINICAL NURSING INSTRUCTOR-CAMPUS MANAGER [address] [place] [phone] PCP - General 01/14/18 05/10/23 documented as of this encounter
--- OUTSIDE RECORDS SUMMARY | 2024-03-22 16:39 | XMS_ITS | Encounter Summary ---
Author Organization [facility] Health Address [address] [facility] [place] [address] Care Team Providers Care Tax Audit Manager Name Role Phone Lauren Saba LISETTE-QUALITY LEAD Primary Care Provider Encounter Details Date Type Department Care Team (Late Contact Info) Description 10/15/2019 Orders Only [facility] [address] [place] [address] Melinda Espinoza, YOVANA Social History Tobacco Use Types Packs/Day Years [...] (Late Contact Info) Description 04/04/2024 8:30 AM GLOBAL MARKETING OPERATIONS MANAGER Office Visit [facility] - Dermatology [address] [place] [address], [facility] [place] [phone] Marlys Zaragoza MD [address] [place] [address] 3 [place] [phone] 09/03/2024 9:00 AM CDT Office Visit [facility] - Neurology [address] [facility], [facility] [address] Melissa Crook APRN-NAIF [address] [place] [phone] documented as of this encounter Visit Diagnoses Not on filedocumented in this encounter Care Teams Tax Audit Manager Relationship Specialty Start Date End Date Lauren Saba APRN-QUALITY LEAD [address] [place] [phone] PCP - General 01/14/18 05/10/23 documented as of this encounter
--- OUTSIDE RECORDS SUMMARY | 2024-03-22 16:39 | XMS_ITS | Encounter Summary ---
Author Organization [facility] Health Address [address] [facility] [place] [address] Care Team Providers Care Manager Drug Name Role Phone Lauren Saba LISETTE-COUNTER MAKER Primary Care Provider Reason for Visit * Reason Comments Botox Encounter Details Date Type Department Care Team (Latest Contact Info) Description 07/22/2018 8:40 AM CDT Procedure visit [facility] Neurology [address] [place] [address] Mckayla Haywood MD [address] [place] [phone] Intractable chronic 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 without [...] Sign Reading Time Taken Comments Blood Pressure 108/72 07/22/2018 9:06 AM CDT Pulse 73 07/22/2018 9:06 AM CDT Temperature 36.7 ??C (98 ??F) 07/22/2018 9:06 AM CDT Respiratory Rate - - Oxygen Saturation - - Inhaled Oxygen Concentration - - Weight 60.8 kg (134 lb) 07/22/2018 9:06 AM CDT Height 165.1 cm (5' 5 ) 07/22/2018 9:06 AM CDT Body Mass Index 22.3 07/22/2018 9:06 AM CDT documented in this encounter Progress Notes * Mckayla Haywood MD - 07/22/2018 9:04 AM CDT Here for Botox for chronic migraine. Current Outpatient Prescriptions Medication Sig Dispense Refill [...] ??? budesonide-formoterol (SYMBICORT) 160-4.5 MCG/ACT inhaler ??? bupxcjuswa-jmrgnthaddnmx-eafifmwl (FIORICET) 50-325-40 MG tablet Take 1 tablet [...] fluticasone propionate (FLONASE) 50 MCG/ACT nasal spray [place] 1 [place] into the nose ??? ibuprofen (MOTRIN) 800 MG tablet Take 1 tablet by mouth 2 times daily as needed (for headache) 60 tablet 5 ??? LORazepam (ATIVAN) 1 MG tablet 1 tablet prior to MRI for sedation, repeat another tablet in 30 minutes if inadequate. Do not exceed 2 tablets per day. 8 tablet 0 ??? Ocrelizumab (OCREVUS IV) 600 mg by [...] medications for this visit. No Known Allergies BP 108/72 Pulse 73 Temp 98 ??F (36.7 ??C) (Oral) Ht 5' 5 (1.651 m) Wt 134 lb (60.8 kg) BMI 22.3 kg/m2 documented in this encounter Procedure Notes * Mckayla Hayowod MD - 07/22/2018 9:06 AM CDTAssociated Order(s): PROC INJECTION - BOTOX Procedure(s): [place] CHEMODENERV MUSC MIGRAINE Pre-Procedure Diagnose(s): Intractable chronic [...] aura, intractable, with status migrainosus Procedure code: 82614 History: Baseline number of headaches per month: 20 Current headaches per month:3 Number of headache hours per day baseline: 12 Number of headache days per hour current: 2 Associated symptoms baseline: Moderate to severe pain, nausea, vomiting, photophobia, phonophobia. Associated symptoms current: Moderate pain, nausea, photophobia, phonophobia. The patient has had significant benefit from Botox with a 50% reduction in headache frequency and severity. Current migraine prophylactic medications: zonisamide Current migraine abortive treatments: Date of last injection: 04/15/2018 Duration of benefit: 2.5 months. Side effects after the last injection None [...] Contact Info) Description 04/04/2024 8:30 AM RISK CONTROL ANALYST Office Visit [facility] - Dermatology [address] [place] [phone] Marlys Zaragoza MD [address] [facility] 3L [place] [address] 09/03/2024 9:00 AM CDT Office Visit [facility] - Neurology [address] [facility], [place] [address] Melissa Crook, WEAVER HAND-COUNTER MAKER [address] [place] [phone] documented as of this encounter Procedures Procedure Name Priority Date/Time Associated Diagnosis Comments WI CHEMODENERV MUSC MIGRAINE Routine 07/22/2018 9:29 AM CDT Intractable chronic 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 without status migrainosus documented in this encounter Results * WI CHEMODENERV MUSC MIGRAINE (07/22/2018 9:29 AM CDT) [...] intractable, with status migrainosus ?? Procedure code: 45001 History: Baseline number of headaches per month: [...] 200 Units, Intramuscular, ONCE, 1 dose, On 07/22/18 at 0930 $ Given 07/22/2018 9:27 AM CDT 200 Units Head documented in this encounter Care Teams Manager Drug Relationship Specialty Start Date End Date Lauren Saba, WEAVER HAND-COUNTER MAKER [address] [place] [phone] PCP - General 01/14/18 05/10/23 documented as of this encounter
--- OUTSIDE RECORDS SUMMARY | 2024-03-22 16:39 | XMS_ITS | Encounter Summary ---
Author Organization [facility] Health Address [address] [facility] [place] [address] Care Team Providers Care Comb Winder Name Role Phone Lauren Saba LISETTE-FREIGHT HANDLER Primary Care Provider Encounter Details Date Type Department Care Team (Late Contact Info) Description 05/14/2019 Orders Only [facility] [address] [place] [address] Markus Cabral MD [address] [place] [phone] Social History Tobacco Use Types Packs/Day Years [...] (Late Contact Info) Description 04/04/2024 8:30 AM BUSINESS RULES ANALYST Office Visit [facility] - Dermatology [address] [place] [phone] Marlys Zaragoza MD [address] [facility] 3L [place] [address] 09/03/2024 9:00 AM CDT Office Visit [facility] - [facility]5 [facility], [place] [address] Melissa Crook, DIRECTOR OF OCCUPATIONAL THERAPY-FREIGHT HANDLER [address] [place] [address] documented as of this encounter Procedures Procedure Name Priority Date/Time Associated Diagnosis Comments CBC W AUTO DIFFERENTIAL 05/14/2019 9:50 AM BUSINESS RULES ANALYST COMPREHENSIVE METABOLIC PANEL 05/14/2019 9:50 AM BUSINESS RULES ANALYST documented in this encounter Results * (ABNORMAL) CBC WITH DIFFERENTIAL (05/14/2019 9:50 AM BUSINESS RULES ANALYST) White Blood Cell Count 7.4 3.8 - 10.8 Thousand/ uL [facility] RBC 4.85 3.80 - 5.10 Million/u L [facility] Hemoglobin 13.5 11.7 - 15.5 g/dL [facility] Hematocrit 42.2 35.0 - 45.0 % [facility] MCV 87.0 80.0 - 100.0 fL [facility] MCH 27.8 27.0 - 33.0 pg [facility] MCHC 32.0 32.0 - 36.0 g/dL [facility] RDW 13.8 11.0 - 15.0 % [facility] Platelet Count 365 140 - 400 Thousand/ uL [facility] MPV 9.4 7.5 - 12.5 fL [facility] Neutrophil Absolute 4085 1500 - 7800 cells/uL [facility] Lymphocytes Absolute 1635 850 - 3900 cells/uL [facility] Absolute Monocytes 1080(H) 200 - 950 cells/uL [facility] Eosinophils Absolute 518(H) 15 - 500 cells/uL [facility] Basophils Absolute 81 0 - 200 cells/uL [facility] Granulocytes % 55.2 % [facility] Lymphocytes % 22.1 % [facility] Monocytes % 14.6 % [facility] Eosinophils % 7.0 % [facility] Basophils % 1.1 % [facility] Comment: Test Performed at: [email or web address] ??[phone] IMTIAZ PRUITT MD 05/14/2019 9:50 AM BUSINESS RULES ANALYST 05/14/2019 3:25 PM BUSINESS RULES ANALYST Markus Cabral MD LAB - HEMATOLOGY ORDERABLES Performing Organization Address [facility] Co de Phone Number [address] [address] * COMPREHENSIVE METABOLIC PANEL (05/14/2019 9:50 AM BUSINESS RULES ANALYST) Glucose 72 65 - 99 mg/dL [facility] Comment: ? Fasting reference interval BUN 16 7 - 25 mg/dL [facility] Creatinine 0.70 0.50 - 1.10 mg/dL [facility] eGFR by MDRD 110 > OR = 60 mL/min/1 .73m2 [facility] eGFR by MDRD 127 > OR = 60 mL/min/1 .73m2 [facility] BUN/Creatinine Ratio NOT APPLICABLE 6 - 22 (calc) [facility] Sodium 142 135 - 146 mmol/L [facility] Potassium 4.3 3.5 - 5.3 mmol/L [facility] Chloride 110 98 - 110 mmol/L [facility] CO2 25 20 - 32 mmol/L [facility] Calcium 9.2 8.6 - 10.2 mg/dL [facility] Protein Total 6.6 6.1 - 8.1 g/dL [facility] Albumin 4.3 3.6 - 5.1 g/dL [facility] Globulin Total 2.3 1.9 - 3.7 g/dL (calc) [facility] Albumin/Globulin Ratio 1.9 1.0 - 2.5 (calc) [facility] Bilirubin Total 0.2 0.2 - 1.2 mg/dL [facility] Alkaline Phosphatase 58 31 - 125 U/L [facility] AST 13 10 - 30 U/L [facility] ALT 10 6 - 29 U/L [facility] Comment: Test Performed at: [email or web address] [id number] [place] [address] ??[phone] IMTIAZ PRUITT MD 05/14/2019 9:50 AM BUSINESS RULES ANALYST 05/14/2019 3:25 PM BUSINESS RULES ANALYST Markus Cabral MD LAB - CHEMISTRY ORDERABLES Performing Organization Address City/[facility]/ZIP Co de Phone Number [facility] [address] [place] [address] documented in this encounter Visit Diagnoses Not on filedocumented in this encounter Care Teams Comb Winder Relationship Specialty Start Date End Date Lauren Saba, DIRECTOR OF OCCUPATIONAL THERAPY-FREIGHT HANDLER [address] [place] [phone] PCP - General 01/14/18 05/10/23 documented as of this encounter
--- OUTSIDE RECORDS SUMMARY | 2024-03-22 16:39 | XMS_ITS | Encounter Summary ---
Author Organization [facility] Health Address [address] [facility] [place] [address] Care Team Providers Care Shift Stacker Name Role Phone Lauren Saba Jose Eduardo KNOX-BAND MAKER Primary Care Provider Encounter Details Date Type Department Care Team (Late Contact Info) Description 05/08/2018 Orders Only [facility] [address] [place] [address] Alesia Vazquez, EPIC APPLICATION COORDINATOR-BAND MAKER [address] [place] [address] [place] [phone] Social History Tobacco Use Types Packs/Day Years [...] (Late Contact Info) Description 04/04/2024 8:30 AM ENTRY LEVEL STAFF ACCOUNTANT Office Visit [facility] [address] [place] [address], [place] [phone] Marlys Zaragoza MD [address] [facility] 3L [place] [address] 09/03/2024 9:00 AM CDT Office Visit [facility] [address] [facility], [place] [phone] Melissa Crook, EPIC APPLICATION COORDINATOR-BAND MAKER [address] [place] [address] documented as of this encounter Procedures Procedure Name Priority Date/Time Associated Diagnosis Comments CBC W AUTO DIFFERENTIAL 05/08/2018 9:06 AM ENTRY LEVEL STAFF ACCOUNTANT COMPREHENSIVE METABOLIC PANEL 05/08/2018 9:06 AM ENTRY LEVEL STAFF ACCOUNTANT documented in this encounter Results * COMPREHENSIVE METABOLIC PANEL (05/08/2018 9:06 AM ENTRY LEVEL STAFF ACCOUNTANT) Glucose 89 65 - 99 mg/dL [facility] Comment: ? Fasting reference interval BUN 23 7 - 25 mg/dL [facility] Creatinine 0.71 0.50 - 1.10 mg/dL [facility] eGFR by MDRD 109 > OR = 60 mL/min/1 .73m2 [facility] eGFR by MDRD 126 > OR = 60 mL/min/1 .73m2 [facility] BUN/Creatinine Ratio NOT APPLICABLE 6 - 22 (calc) [facility] Sodium 137 135 - 146 mmol/L [facility] Potassium 4.3 3.5 - 5.3 mmol/L [facility] Chloride 107 98 - 110 mmol/L [facility] CO2 25 20 - 32 mmol/L [facility] Calcium 9.4 8.6 - 10.2 mg/dL [facility] Protein Total 6.9 6.1 - 8.1 g/dL [facility] Albumin 4.6 3.6 - 5.1 g/dL [facility] Globulin Total 2.3 1.9 - 3.7 g/dL (calc) [facility] Albumin/Globulin Ratio 2.0 1.0 - 2.5 (calc) [facility] Bilirubin Total 0.4 0.2 - 1.2 mg/dL [facility] Alkaline Phosphatase 51 33 - 115 U/L [facility] AST 13 10 - 30 U/L [facility] ALT 14 6 - 29 U/L [facility] Comment: Test Performed at: [facility] ??[id number] IMTIAZ PRUITT MD 05/08/2018 9:06 AM ENTRY LEVEL STAFF ACCOUNTANT 05/08/2018 3:55 PM ENTRY LEVEL STAFF ACCOUNTANT Alesia Vazquez APRN-BAND MAKER LAB - CHEMISTR Y ORDERABLES Performing Organization Address [facility] de Phone Number [address] [address] * (ABNORMAL) CBC WITH DIFFERENTIAL (05/08/2018 9:06 AM ENTRY LEVEL STAFF ACCOUNTANT) White Blood Cell Count 7.5 3.8 - 10.8 Thousand/ uL [facility] RBC 4.87 3.80 - 5.10 Million/u L [facility] Hemoglobin 12.8 11.7 - 15.5 g/dL [facility] Hematocrit 40.1 35.0 - 45.0 % [facility] MCV 82.3 80.0 - 100.0 fL [facility] MCH 26.3(L) 27.0 - 33.0 pg [facility] MCHC 31.9(L) 32.0 - 36.0 g/dL [facility] RDW 14.6 11.0 - 15.0 % [facility] Platelet Count 309 140 - 400 Thousand/ uL [facility] MPV 10.0 7.5 - 12.5 fL [facility] Neutrophil Absolute 5040 1500 - 7800 cells/uL [facility] Lymphocytes Absolute 1208 850 - 3900 cells/uL [facility] Absolute Monocytes 713 200 - 950 cells/uL [facility] Eosinophils Absolute 458 15 - 500 cells/uL [facility] Basophils Absolute 83 0 - 200 cells/uL [facility] Granulocytes % 67.2 % [facility] Lymphocytes % 16.1 % [facility] Monocytes % 9.5 % [facility] Eosinophils % 6.1 % [facility] Basophils % 1.1 % [facility] Comment: REPORT COMMENT: FASTING:UNKNOWN Test Performed at: [facility] ??[phone] IMTIAZ PRUITT MD 05/08/2018 9:06 AM ENTRY LEVEL STAFF ACCOUNTANT 05/08/2018 3:55 PM ENTRY LEVEL STAFF ACCOUNTANT Alesia JOSHI LAB - HEMATOLO GY ORDERABLES Performing Organization Address [facility] Co de Phone Number [facility] [address] [place] [address] documented in this encounter Visit Diagnoses Not on filedocumented in this encounter Care Teams Shift Stacker Relationship Specialty Start Date End Date Lauren Saba APRN-BAND MAKER [address] [place] [phone] PCP - General 01/14/18 05/10/23 documented as of this encounter
--- OUTSIDE RECORDS SUMMARY | 2024-03-22 16:39 | XMS_ITS | Encounter Summary ---
Author Organization [facility] Health Address [address] [facility] [place] [address] Care Team Providers Care Engineering Manager Electronics Name Role Phone Lauren Saba Jose Eduardo KNOX-SENIOR SERVICE TECHNICIAN Primary Care Provider Encounter Details Date Type Department Care Team (Late Contact Info) Description 11/10/2019 Orders Only [facility] [place] [address] [place] [address] Deja Godinez, PharmD [address] [place] [address] Social History Tobacco Use Types Packs/Day Years [...] (Late Contact Info) Description 04/04/2024 8:30 AM SALON LEADER Office Visit [facility] [address] [place] [address], [place] [phone] Marlys Zaragoza MD [address] [place] [address] [address] [place] [address] 09/03/2024 9:00 AM CDT Office Visit [facility] [address] [facility], [place] [address] Melissa Crook, SUPERVISOR DETASSELING CREW-SENIOR SERVICE TECHNICIAN [address] [place] [phone] documented as of this encounter Visit Diagnoses Not on filedocumented in this encounter Care Teams Engineering Manager Electronics Relationship Specialty Start Date End Date Lauren Saba APRN-SENIOR SERVICE TECHNICIAN [address] [place] [phone] PCP - General 01/14/18 05/10/23 documented as of this encounter
--- OUTSIDE RECORDS SUMMARY | 2024-03-22 16:39 | XMS_ITS | Encounter Summary ---
Author Organization [facility] Health Address [address] [facility] [place] [address] Care Team Providers Care Thermoforming Machine Operator Name Role Phone Lauren Saba Jose Eduardo JOSHI Primary Care Provider Reason for Visit * Reason Comments Seizure Encounter Details Date Type Department Care Team (Late st Contact Info) Description 05/16/2019 10:40 AM TOP SPOTTER Office Visit [facility] Neurology [address] [place] [address] Alesia Vazquez APRN-CNP [address] [place] [phone] Nonintractable epilepsy without status epilepticus, unspecified epilepsy type (HCC) (Primary Dx); Medication monitoring encounter Social History Tobacco Use Types Packs/Day Years [...] Sign Reading Time Taken Comments Blood Pressure 119/78 05/16/2019 10:51 AM TOP SPOTTER Pulse 89 05/16/2019 10:51 AM TOP SPOTTER Temperature - - Respiratory Rate - - Oxygen Saturation 98% 05/16/2019 10:51 AM TOP SPOTTER Inhaled Oxygen Concentration - - Weight 60.8 kg (134 lb 1.9 oz) 05/16/2019 10:51 AM TOP SPOTTER Height 165.1 cm (5' 5 ) 05/16/2019 10:51 AM TOP SPOTTER Body Mass Index 22.32 05/16/2019 10:51 AM TOP SPOTTER documented in this encounter Progress Notes * Alesia Vazquez APRN-CNP - 05/16/2019 11:00 AM CST Epilepsy Clinic Note PCP ADI Botello Date of Encounter: 05/16/2019 Chief Complaint: seizures Accompanied with: mother Information obtained from: chart review, mother and patient AGE OF ONSET ~24 yrs SEMIOLOGY - Aura lightheaded - Ictus Generalized tonic clonic, LOC, foaming in mouth, lasting for 1-2 min - Post-ictus Sleepy, fatigue, confusion SEIZURE CONTROL Seizure frequency Was controlled for 10+years till 04/15/2019 Seizure free interval One month Date of last seizure 04/15/2019 Aggravating factor stress PRE-VISIT MEDICATION Name Dose Frequency Total/day Level Start Zonisamide 400 mg QHS Keppra 500 mg BID 04/15/2019 COMPLIANCE good TREATMENT HISTORY Name Allergy/Side Effects/Ineffectiveness Topamax Memory problems EE04/16/2019 at [facility] This is a routine 20-channel digital [...] awake and drowsy record. IMAGING: Brain MRI 04/15/2019 1. Extensive periventricular and subcortical white matter gliosis in keeping with stated history of MS. No abnormal enhancement to suggest active disease. 2. Associated brain atrophy. 3. No evidence of acute infarct. CTH 04/15/[address]: 1[address] No definite CT evidence of acute intracranial abnormality, as above. 2. Patchy, supratentorial white matter abnormalities, presumably related to patient's history of multiple sclerosis. 3. Volume loss, greater than expected for a patient of this age. CLASSIFICATION: Generalized seizures LABORATORY RESULTS (04/16/2019) CBC: WBC 13.9 , Plt 395 BMP: BUN 13, Cr 0.83 LFT: ALT 13, AST 11 HPI: Meredith Frost is a 38 year old female is here to establish care for Seizures. She has PMH of MS, depression, migraines. Has a h/o seizures for years, was controlled, last seizure was on 04/15/19 triggered by stress, prior to that sz was 10 yrs ago. Patient was on Zonisamide 400 mg QHS for sz management and when she wasseen at OSH on 04/15/19 for a breakthrough seizure Keppra 500 mg BID was added. Patient reports tolerating keppra well. Denies any further seizures. Sees Dr. Haywood in clinic for Migraine management and receiving Botox injections and sees Dr. Nieto in clinic for management for MS. Complex febrile seizure Hx no Head trauma Hx no FULL TIME PARAMEDIC Infection Hx no Family Epilepsy Hx no Handedness rt Memory stable Mood stable Gingival Hypertrophy no Dentist Appointment yes Ambulatory Difficulty no Numbness yes Hair changes no History of kidney stones no Driving no Living situation Lives with mother Work no Swimming unattended no Deep tub bath no Denies any new neurological problems today. ROS: General Negative except per HPI Eyes Negative except per HPI ENT Negative except per HPI Pulmonary Negative except per HPI Cardiac Negative except per HPI GI Negative except per HPI Negative except per HPI Neurologic Per HPI Psychiatric Negative except per HPI Skeletal Negative except per HPI Endocrine Negative except per HPI Infectious Negative except per HPI Allergies: No Known Allergies Home Medications: Current Outpatient Medications Medication Sig ??? ABILIFY MAINTENA 300 MG injection Inject 1.5 mL into muscle every 28 days ??? albuterol HFA (PROVENTIL;VENTOLIN;PROAIR) 108 (90 BASE) [...] 2 PUFFS BY MOUTH TWICE DAILY ??? pdswvxxhbj-voilxwlciincu-nzqvrayb (FIORICET) 50-325-40 MG tablet TAKE 1 TABLET BY MOUTH EVERY 4HOURS NEEDED FOR HEADACHE(NO ADITIONAL TYLENOL) ??? erythromycin (ERYDERM) 2 % solution Apply 1-2 times daily to entire face ??? escitalopram (LEXAPRO) 20 MG tablet TAKE 1 TABLET BY MOUTH EVERY DAY ??? fluticasone propionate (FLONASE) 50 MCG/ACT nasal spray Jackson 1 Jackson into the nose ??? ibuprofen (MOTRIN) 800 MG tablet TAKE 1 TABLET BY MOUTH TWICE DAILY NEEDED FOR HEADACHE ??? levETIRAcetam (KEPPRA) 500 MG tablet Take 1 tablet by mouth 2 times daily ??? Ocrelizumab (OCREVUS IV) 600 mg by Intravenous route Reasons: every 6 months ??? onabotulinumtoxin A (BOTOX) 100 units injection Inject 200 Units into muscle Every 90 days Reasons: Migraine Headache ??? SUMAtriptan (IMITREX) 50 MG tablet sumatriptan 50 mg tablet ??? tretinoin (RETIN-A) 0.01 % gel Pea sized amount to entire face at night. 30 days supply. ??? tretinoin (RETIN-A) 0.1 % cream Pea sized amount to entire face at night. 30 days supply. ??? zonisamide (ZONEGRAN) 100 MG capsule Take 4 capsules by mouth at bedtime No current facility-administered medications for this visit. PMH: Past Medical History: Diagnosis Date ??? Seizure disorder Family History: Family History Problem Relation Name [...] Social History Narrative ??? Not on file control Not sexually active Alcohol usage yes Marijuana usage yes Physical Exam: Vitals: 05/16/19 1051 BP: 119/78 Pulse: 89 SpO2: 98% Weight: 134 lb 1.9 oz (60.8 kg) Height: 5' 5 (1.651 m) General [...] Normal Romberg's Gait: Normal stride and stance Normal tandem Assessment: Epilepsy Plan: - Will continue Zonisamide 400 mg QHS and Keppra 500 mg BID at this time. Will check levels if Zonisamide level is low, may increase Zonisamide to 500 mg QHS and wean off keprra if patient stays seizure free. I told the patient in clear terms [...] should be used under supervision of a woodwinds teacher. If oral contraception must be used, a higher dosage may be required under supervision of a woodwinds teacher. She was instructed to inform the Neurology Clinic in the event of any planned or unplanned . I spent 40 minutes in the evaluation of the patient of which more than 50 % of the time was spent in counseling and co-ordination of care. Above case finding discussed with Dr. Renee, Neurology attending. Clinic Follow up in 3 months. Continue to follow up with Dr. Haywood for migraine and Dr. Nieto for MS as advised. Alesia Vazquez, TITUS, CENTRIFUGE OPERATOR-C Department of Neurology SPOTTER documented in this encounter Plan of Treatment Upcoming Encounters Date Type Department Care Team (Late st Contact Info) Description 04/04/2024 8:30 AM TOP SPOTTER Office Visit [facility] Dermatology [address] [place] [address], [facility] [place] [phone] Marlys Zaragoza MD [address] [place] [address] 3 DE[place] [phone] 09/03/2024 9:00 AM CDT Office Visit [facility] - [facility] [address] [facility], [place] [address] Melissa Crook APRN-CNP [address] [place] [address] documented as of this encounter Results * ZONISAMIDE LEVEL (05/16/2019 11:59 AM TOP SPOTTER) Zonisamide 14.2 10.0 - 40.0 ug/mL 05/19/2019 12:08 PM TOP SPOTTER [facility] ([facility]) Comment: This test was developed and its performance characteristics determined by [facility]. It has not been cleared or approved by the Food and Drug Administration. ?Detection Limit = 1.0 Blood BLOOD SPECIMEN / Unknown Lab Venipuncture / Unknown 05/16/2019 11:59 AM TOP SPOTTER 05/16/2019 12:30 PM TOP SPOTTER Narrative [facility] ([facility]) - 05/19/2019 12:08 PM TOP SPOTTER Performed at: ??01 - [facility] ??[id number] Bar Supervisor: Ro Lundberg MD, Phone: ??[phone] Alesia Vazquez APRN-WINDOWS SYSTEM ADMIN LAB - CHEMISTR Y ORDERABLES Performing Organization Address City/State/[facility] Co de Phone Number [facility] ([facility]) [address] [place] [address] documented in this encounter Visit Diagnoses Diagnosis Nonintractable epilepsy without status epilepticus, unspecified epilepsy type (HCC)- Primary Medication monitoring encounter Encounter for therapeutic drug monitoring documented in this encounter Care Teams Thermoforming Machine Operator Relationship Specialty Start Date End Date Lauren Saba APRN-WINDOWS SYSTEM ADMIN [address] [place] [address] PCP - General 01/14/18 05/10/23 documented as of this encounter
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
--- OUTSIDE RECORDS SUMMARY | 2024-03-22 16:39 | XMS_ITS | Encounter Summary ---
Author Organization [facility] Health Address [address] [place] [address] Care Team Providers Care Parts Sales Representative Name Role Phone Lauren Saba LISETTE-CUSTOMS HOUSE BROKER Primary Care Provider Reason for Visit * Reason Comments Refill Request Encounter Details Date Type Department Care Team (Late Contact Info) Description 04/08/2019 Refill [facility] Neurology [address] [place] [address] Mckayla Haywood MD [address] [place] [phone] Refill Request Social History Tobacco Use Types [...] Upcoming Encounters Date Type Department Care Team ([facility] Contact Info) Description 04/04/2024 8:30 AM TRACTOR OPERATOR LASER LEVELING Office Visit [facility] - Dermatology [address] [place] [phone] Marlys Zaragoza MD [address] [facility] [address]L [place] [phone] 09/03/2024 9:00 AM CDT Office Visit [facility] - Neurology [address] [facility], [place] [phone] Melissa Crook APRN-CUSTOMS HOUSE BROKER [address] [place] [phone] documented as of this encounter Visit Diagnoses Diagnosis Nonintractable epilepsy without status epilepticus, unspecified epilepsy type (HCC) documented in this encounter Care Teams Parts Sales Representative Relationship Specialty Start Date End Date Lauren Saba APRN-CUSTOMS HOUSE BROKER [address] [place] [phone] PCP - General 01/14/18 05/10/23 documented as of this encounter
--- OUTSIDE RECORDS SUMMARY | 2024-03-22 16:39 | XMS_ITS | Encounter Summary ---
Author Organization [facility] Health Address [address] [address] Care Team Providers Care Calendering Machine Operator Name Role Phone Lauren Saba LISETTE-SKEIN INSPECTOR Primary Care Provider Reason for Visit * Reason Comments Botox Encounter Details Date Type Department Care Team (Latest Contact Info) Description 10/21/2018 11:20 AM CDT Procedure visit [facility] Neurology [address] [place] [address] Mckayla Haywood MD [address] [place] [phone] Intractable chronic 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 without [...] Sign Reading Time Taken Comments Blood Pressure 113/80 10/21/2018 11:40 AM CDT Pulse 69 10/21/2018 11:40 AM CDT Temperature - - Respiratory Rate - - Oxygen Saturation - - Inhaled Oxygen Concentration - - Weight 62.1 kg (137 lb) 10/21/2018 11:40 AM CDT Height 165.1 cm (5' 5 ) 10/21/2018 11:40 AM CDT Body Mass Index 22.8 10/21/2018 11:40 AM CDT documented in this encounter Progress Notes * Mckayla Haywood MD - 10/21/2018 11:46 AM CDT Here for botox for chronic migraine Current Outpatient Prescriptions Medication Sig Dispense Refill [...] 2 PUFFS BY MOUTH TWICE DAILY ??? fsdihtnwda-cylsgovnkxzyl-rylrpmak (FIORICET) 50-325-40 MG tablet Take 1 tablet [...] fluticasone propionate (FLONASE) 50 MCG/ACT nasal spray Manning 1 Manning into the nose ??? hydrOXYzine hcl (ATARAX) [...] times daily as needed ??? SUMAtriptan (IMITREX) 50 MG tablet sumatriptan [...] current facility-administered medications for this visit. BP 113/80 Pulse 69 Ht 5' 5 (1.651 m) Wt 137 lb (62.1 kg) BMI 22.8 kg/m2 Patient reports that she's doing well. She does think that the zonisamide is causing some dizziness. She like to follow up with epilepsy clinic regarding possibly changing to another medication. She also has a history of MS and is on Ocrelizumab. I've asked the patient to see our new MS provider. documented in this encounter Procedure Notes * Mckayla Haywood MD - 10/21/2018 11:48 AM CDTAssociated Order(s): PROC INJECTION - BOTOX Procedure(s): [place] CHEMODENERV MUSC MIGRAINE Pre-Procedure Diagnose(s): Intractable chronic [...] aura, intractable, with status migrainosus Procedure code: 75097 History: Baseline number of headaches per month:30 [...] migraine abortive treatments:sumatriptan Date of last injection: 07/22/2018 Duration of benefit: 3 months Side effects [...] st Contact Info) Description 04/04/2024 8:30 AM POTLINE MONITOR Office Visit [facility] - Dermatology [address] [place] [address], [place] [phone] Marlys Zaragoza MD [address] [place] [address] [address] [place] [phone] 09/03/2024 9:00 AM CDT Office Visit [facility] - Neurology [address] [place] [address], [place] [phone] Melissa Crook, LISETTE-SKEIN INSPECTOR [address] [place] [phone] documented as of this encounter Procedures Procedure Name Priority Date/Time Associated Diagnosis Comments AZ CHEMODENERV MUSC MIGRAINE Routine 10/21/2018 12:07 PM CDT Intractable chronic 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 without status migrainosus documented in this encounter Results * [place] CHEMODENERV MUSC MIGRAINE (10/21/2018 12:07 PM CDT) [...] intractable, with status migrainosus ?? Procedure code: 68097 History: Baseline number of headaches per month:30 [...] 200 Units, Intramuscular, ONCE, 1 dose, On Sun10/21/18 at 1215 $ Given 10/21/2018 12:07 PM CDT 200 Units Head documented in this encounter Care Teams Calendering Machine Operator Relationship Specialty Start Date End Date Lauren Saba, LEATHER ETCHER-SKEIN INSPECTOR [address] [place] [phone] PCP - General 01/14/18 05/10/23 documented as of this encounter
--- OUTSIDE RECORDS SUMMARY | 2024-03-22 16:39 | XMS_ITS | Encounter Summary ---
Author Organization [facility] Health Address [address] [facility] [address] Care Team Providers Care Lumber Stacker Name Role Phone Lauren Saba Jose Eduardo KNOX-TARGET WORKER Primary Care Provider Encounter Details Date Type Department Care Team (Late Contact Info) Description 09/02/2019 Orders Only [facility] Neurology [address] [place] [address] Markus Cabral MD [address] [place] [address] Social History Tobacco Use Types Packs/Day Years [...] (Late Contact Info) Description 04/04/2024 8:30 AM PRODUCTION CHECKER Office Visit [facility] - Dermatology [address] [place] [address], [place] [phone] Marlys Zaragoza MD [facility] [facility] [place] [address]L [place] [phone] 09/03/2024 9:00 AM CDT Office Visit [facility] - Neurology [address] [place] [address], [place] [phone] Melissa Crook APRN-TARGET WORKER [address] [place] [phone] documented as of this encounter Visit Diagnoses Not on filedocumented in this encounter Care Teams Lumber Stacker Relationship Specialty Start Date End Date Lauren Saba APRN-TARGET WORKER [address] [place] [phone] PCP - General 01/14/18 05/10/23 documented as of this encounter
--- OUTSIDE RECORDS SUMMARY | 2024-03-22 16:39 | XMS_ITS | Encounter Summary ---
Author Organization [facility] Health Address [address] [facility] [place] [address] Care Team Providers Care Marketing Co Op Name Role Phone Lauren Saba LISETTE-DENTAL SCHEDULING COORDINATOR Primary Care Provider Reason for Visit * Reason Comments Refill Request Encounter Details Date Type Department Care Team (Late Contact Info) Description 05/04/2019 Refill [facility] [address] [place] [address] Mckayla Haywood MD [address] [place] [phone] Refill Request Social History Tobacco Use Types [...] Upcoming Encounters Date Type Department Care Team ([facility] Contact Info) Description 04/04/2024 8:30 AM DOUGHNUT FRYER Office Visit [facility] - Dermatology [address] [place] [phone] Marlys Zaragoza MD [address] 

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
--- OUTSIDE RECORDS SUMMARY | 2024-03-22 16:39 | XMS_ITS | Encounter Summary ---
Author Organization [facility] Health Address [address] [facility] [place] [address] Care Team Providers Care Rotor Plate Washer Name Role Phone Lauren Saba LISETTE-PROCUREMENT ENGINEER Primary Care Provider Reason for Visit * Reason Onset Date Comments MEDICATION REFILL 08/04/2019 Encounter Details Date Type Department Care Team (Late Contact Info) Description 08/04/2019 Refill [facility] [address] [place] [address] Markus Cabral MD [address] [place] [phone] MEDICATION REFILL Social History Tobacco Use Types [...] (Late Contact Info) Description 04/04/2024 8:30 AM ALMOND BLANCHER Office Visit [facility] Dermatology [address] [place] [phone] Marlys Zaragoza MD [address] [facility] [address]L [place] [phone] 09/03/2024 9:00 AM CDT Office Visit [facility] [place] [phone] Melissa Crook APRN-PROCUREMENT ENGINEER [address] [place] [phone] documented as of this encounter Visit Diagnoses [...] movements documented in this encounter Care Teams Rotor Plate Washer Relationship Specialty Start Date End Date Lauren Saba APRN-PROCUREMENT ENGINEER [address] [place] [phone] PCP - General 01/14/18 05/10/23 documented as of this encounter
--- OUTSIDE RECORDS SUMMARY | 2024-03-22 16:39 | XMS_ITS | Encounter Summary ---
Author Organization [facility] Health Address [address] [facility] [address] Care Team Providers Care Pharmacy Analyst Name Role Phone Lauren Saba Jose Eduardo KNOX-TOE LINING CLOSER Primary Care Provider Reason for Visit * Oncology Prior Authorization (Routine) - Closed Specialty Diagnoses / Procedures Referred By Contdanny t Referred To Contact Diagnoses MS (multiple sclerosis) (HCC) Procedures UT INJ OCRELIZUMAB 1MG Deja Schumacher, PharmD [address] [place] [address] [facility] [address] [place] [address] Referral ID Status Reason Start Date Expiration Date Visits Re quested Visits Authorized [id number] Closed 11/05/2018 05/04/2019 99 99 Encounter Details Date Type Department Care Team (Latest Contact Info) Description 11/06/2018 8:30 AM CDT Procedure visit [facility] [place] [address] [place] [address] MS (multiple sclerosis) (HCC) Social [...] Sign Reading Time Taken Comments Blood Pressure 122/72 11/06/2018 9:03 AM CDT Pulse 92 11/06/2018 9:03 AM CDT Temperature 36.8 ??C (98.2 ??F) 11/06/2018 9:03 AM CD T Respiratory Rate 16 11/06/2018 9:03 AM CDT Oxygen Saturation 99% 11/06/2018 9:03 AM CDT Inhaled Oxygen Concentration - - Weight 61.2 kg (134 lb 14.4 oz) 11/06/2018 9:03 AM CDT Height 165.1 cm (5' 5 ) 11/06/2018 9:03 AM CDT Body Mass Index 22.45 11/06/2018 9:03 AM CDT documented in this encounter Plan of Treatment Upcoming Encounters Date Type Department Care Team (Late st Contact Info) Description 04/04/2024 8:30 AM CASE ADVOCATE Office Visit [facility] - Dermatology [address] [place] [address] [place] [phone] Marlys Zaragoza MD [address] [place] [address] [place] [phone] 09/03/2024 9:00 AM CDT [facility] [address] [place] [phone] Melissa Crook, LISETTE-TOE LINING CLOSER [address] [place] [phone] documented as of this encounter Visit Diagnoses Diagnosis MS (multiple sclerosis) (HCC)- Primary Multiple sclerosis documented in this encounter Administered Medications Inactive Administered Medications - up to 3 most recent administrations Medication Order MAR Action Action Date Dose Rate Site acetaminophen (TYLENOL) tablet 650 mg 650 mg, Oral, ONCE, 1 dose, On Sun11/06/18 at 0915, Maximum allowable Acetaminophen amount = 4 Grams (4000 mg) / 24 hours. Administer pre-medications 30-60 minutes prior to ocrelizumab. $ Given 11/06/2018 9:15 AM CDT 650 mg diphenhydrAMINE (BENADRYL) capsule 50 mg 50 mg, Oral, ONCE, 1 dose, On Sun11/06/18 at 0915, Use IV if patient not tolerating PO Administer pre-medications 30-60 minutes prior to ocrelizumab. $ Given 11/06/2018 9:15 AM CDT 50 mg methylPREDNISolone sod succ (SOLU-Medrol) injection 125 mg 125 mg, Intravenous, ONCE, 1 dose, On Sun11/06/18 at 0915, Reconstituted solution may be given via direct IV injection over 2-5 minutes without further dilution. Administer pre-medications 30-60 minutes prior to ocrelizumab. $ Given 11/06/2018 9:25 AM CDT 125 mg ocrelizumab (OCREVUS) 600 mg in 0.9% NaCl 520 mL infusion 600 mg, Intravenous, CONTINUOUS, Starting on Sun11/06/18 at 1000, Until Sun11/06/18 at 1546, Start at 40 mL/hr and increase by 40 mL/hr every 30 minutes to a maximum of 200 mL/hr. Observe patient for 1 hour post infusion Administer via dedicated line with a 0.2 or 0.22 micron in-line filter $ New Bag/Syringe 11/06/2018 9:56 AM CDT 600 mg documented in this encounter Care Teams Pharmacy Analyst Relationship Specialty Start Date End Date Lauren Saba APRN-TOE LINING CLOSER [address] [place] [phone] PCP - General 01/14/18 05/10/23 documented as of this encounter
--- OUTSIDE RECORDS SUMMARY | 2024-03-22 16:39 | XMS_ITS | Encounter Summary ---
Author Organization [facility] Health Address [address] [place] [address] Care Team Providers Care Billing Assistant Name Role Phone Lauren Saba Jose Eduardo KNOX-CONSTRUCTION SERVICES TECHNICIAN Primary Care Provider Reason for Visit * Reason Onset Date Comments Medication Prior Auth Request 12/13/2018 Encounter Details Date Type Department Care Team (Late st Contact Info) Description 12/13/2018 Telephone [facility] [address] [place] [address] Marcel Castano MD [address] [place] [address] Medication Prior Auth Request Social History Tobacco [...] encounter Miscellaneous Notes * Telephone Encounter - Asmita Perez - 12/17/2018 3:00 PM CDT Retin-A Gel is what is preferred for [place], ok to change? SW * Telephone Encounter - Evelyn Abbott - 12/13/2018 3:39 PM CDT tretinoin (RETIN-A) 0.1 % cream Pt called and states that this needs a PA. Please advise. documented in this encounter Plan of Treatment Upcoming Encounters Date Type Department Care Team (Late st Contact Info) Description 04/04/2024 8:30 AM FINE ARTS TEACHER Office Visit [facility] - Dermatology [address] [place] [address], [place] [phone] Marlys Zaragoza MD [address] [place] [address] [place] [phone] 09/03/2024 9:00 AM CDT Office Visit [facility] Neurology [address] [place] [phone] Melissa Crook APRN-CONSTRUCTION SERVICES TECHNICIAN [address] [place] [phone] documented as of this encounter Visit Diagnoses Not on filedocumented in this encounter Care Teams Billing Assistant Relationship Specialty Start Date End Date Lauren Saba MARINE WATER TENDER-CONSTRUCTION SERVICES TECHNICIAN [address] [place] [phone] PCP - General 01/14/18 05/10/23 documented as of this encounter
--- OUTSIDE RECORDS SUMMARY | 2024-03-22 16:39 | XMS_ITS | Encounter Summary ---
Author Organization [facility] Health Address [address] [place] [address] Care Team Providers Care Tiler Name Role Phone Lauren Saba Jose Eduardo KNOX-FURNACE MAINTENANCE Primary Care Provider Reason for Visit * Reason Comments Botox Encounter Details Date Type Department Care Team (Latest Contact Info) Description 07/09/2019 11:00 AM CDT Procedure visit [facility] Neurology [address] [place] [address] Mckayla Haywood MD [address] [place] [phone] Intractable chronic 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 without [...] Progress Notes * Mckayla Haywood MD - 07/09/2019 11:00 AM CDT Current Outpatient Medications Medication Sig [...] 2 PUFFS BY MOUTH TWICE DAILY ??? gaqyetokjs-dfhktikcyltfv-xhzasruo (FIORICET) 50-325-40 MG tablet TAKE 1 TABLET BY MOUTH EVERY 4HOURS NEEDED FOR HEADACHE(NO ADITIONAL TYLENOL) 30 tablet 3 ??? erythromycin (ERYDERM) 2 % solution Apply 1-2 times daily to entire face 60 mL 11 ??? escitalopram (LEXAPRO) 20 MG tablet Take 1 tablet by mouth once daily 90 tablet 3 ??? fluticasone propionate (FLONASE) 50 MCG/ACT nasal spray [place] 1 [place] into the nose ??? ibuprofen (MOTRIN) 800 [...] visit. Here for botox for chronic migraine. Also followed in MS clinic and Epilepsy clinic. Please see those notes for details. documented in this encounter Procedure Notes * Mckayla Haywood MD - 07/09/2019 10:52 AM CDTAssociated Order(s): PROC INJECTION - BOTOX Pre-Procedure Diagnose(s): [...] aura, intractable, with status migrainosus Procedure code: 08333 History: Baseline number of headaches per month:30 Current headaches per month:3-4, However off of 3 month schedule, so migraines [...] st Contact Info) Description 04/04/2024 8:30 AM SUGAR REFINER Office Visit [facility] - Dermatology [address] [place] [address], [place] [phone] Marlys Zaragoza MD [address] [place] [address] 3 [place] [phone] 09/03/2024 9:00 AM CDT Office Visit [facility] - Neurology [address] [place] [phone] Melissa Crook, LISETTE-FURNACE MAINTENANCE [address] [place] [phone] documented as of this encounter Procedures Procedure Name Priority Date/Time Associated Diagnosis Comments PROC INJECTION - BOTOX Routine 07/09/2019 10:52 AM CDT Intractable chronic 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 without status migrainosus documented in this encounter Results * PROC INJECTION - BOTOX (07/09/2019 10:52 [...] intractable, with status migrainosus ?? Procedure code: 15612 History: Baseline number of headaches per month:30 [...] 200 Units, Intramuscular, ONCE, 1 dose, On Sun07/09/19 at 1100 $ Given 07/09/2019 11:21 AM CDT 200 Units Head documented in this encounter Care Teams Tiler Relationship Specialty Start Date End Date Lauren Saba, TELEPHONE ORDER SUPERVISOR-FURNACE MAINTENANCE [address] [place] [address] PCP - General 01/14/18 05/10/23 documented as of this encounter
--- OUTSIDE RECORDS SUMMARY | 2024-03-22 16:39 | XMS_ITS | Encounter Summary ---
Author Organization [facility] Health Address [address] [place] [address] Care Team Providers Care Financial Services Assistant Name Role Phone Lauren Saba Jose Eduardo KNOX-CLINICAL SERVICES CONSULTANT Primary Care Provider Encounter Details Date Type Department Care Team (Latest Contact Info) Description 09/01/2019 11:25 AM CDT - 09/01/2019 11:59 PM CDT Hospital Encounter [facility] LAB DRAW STATION [address] [place] [phone] Markus Cabral MD [address] [place] [address] Discharge Disposition: Home or Self Care Social [...] Date End Date ERINN MAINTENA 300 MG injectionIndications: Unspecified Psychosis. Behavioral Disturbances in Dementia Inject 1.5 mL into muscle every 28 days Reasons: Unspecified Psychosis. Behavioral Disturbances in Dementia 1 Each 07/21/2019 06/04/2020 albuterol HFA (PROVENTIL;VENTOLIN;P ROAIR) 108 (90 BASE) MCG/ACT inhaler Inhale 2 Puffs by mouth every 6 hours 03/05/2014 04/11/2021 Albuterol Sulfate (PROAIR RESPICLICK) 108 (90 Base) MCG/ACT 2020 baclofen (LIORESAL) 10 MG tabletIndications:MS (multiple sclerosis) ([facility]),Vitamin D deficiency,High risk medication use,Nonintractable epilepsy without status epilepticus, unspecified epilepsy type ([facility]),Mild cognitive impairment,Intractabl e chronic migraine without [...] epilepsy without status epilepticus, unspecified epilepsy type ([facility]) TAKE 1 TABLET BY MOUTH EVERY 4 HOURS NEEDED FOR HEADACHE(NO ADITIONAL TYLENOL) 30 tablet 3 04/24/2019 05/07/2020 Wcjrfgiyqm-LSZG-Sdhvc ine 50-325-40 MG butalbital-acetamino phen-caffeine 50 mg-325 [...] fluticasone propionate (FLONASE) 50 MCG/ACT nasal spray [place] 1 [place] into the nose 03/05/2014 04/11/2021 ibuprofen (MOTRIN) 800 MG tabletIndications: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 (HCC) TAKE 1 TABLET BY MOUTH TWICE DAILY [...] st Contact Info) Description 04/04/2024 8:30 AM ELIGIBILITY AND OCCUPANCY INTERVIEWER Office Visit [facility] Group - Dermatology [address] [place] [address], [facility] [place] [phone] Marlys Zaragoza MD [address] [place] [address] 3 [place] [phone] 09/03/2024 9:00 AM CDT Office Visit [facility] [address] [place] [address], [place] [address] Melissa Crook, RESEARCH MANAGER-CLINICAL SERVICES CONSULTANT [address] [place] [address] documented as of this encounter Procedures Procedure Name Priority Date/Time Associated Diagnosis Comments CBC W AUTO DIFFERENTIAL Routine 09/01/2019 11:28 AM CDT Multiple sclerosis (HCC) COMPREHENSIVE METABOLIC PANEL Routine 09/01/2019 11:28 AM CDT Multiple sclerosis (HCC) IGM BLOOD Routine 09/01/2019 11:28 AM CDT ANIA (internuclear ophthalmoplegia), bilateral IGG BLOOD Routine 09/01/2019 11:28 AM CDT ANIA (internuclear ophthalmoplegia), bilateral IGA BLOOD Routine 09/01/2019 11:28 AM CDT ANIA (internuclear ophthalmoplegia), bilateral documented in this encounter Results * (ABNORMAL) COMPREHENSIVE METABOLIC PANEL (09/01/2019 11:28 AM CDT) BUN 16 7 - 26 mg/dL 09/01/2019 12:00 PM [facility] Creatinine 0.8 0.6 - 1.2 mg/dL 09/01/2019 12:00 PM [facility] Sodium 142 136 - 145 mmol/L 09/01/2019 12:00 PM [facility] Potassium 4.6(H) 3.5 - 4.5 mmol/L 09/01/2019 12:00 PM [facility] Chloride 110(H) 98 - 107 mmol/L 09/01/2019 12:00 PM [facility] CO2 23 22 - 29 mmol/L 09/01/2019 12:00 PM [facility] Glucose 95 70 - 115 mg/dL 09/01/2019 12:00 PM [facility] Calcium 9.5 8.4 - 10.2 mg/dL 09/01/2019 12:00 PM CDT [facility] Protein Total 6.8 6.0 - 8.3 g/dL 09/01/2019 12:00 PM [facility] Albumin 4.1 3.4 - 5.0 g/dL 09/01/2019 12:00 PM [facility] Bilirubin Total 0.3 0.2 - 1.2 mg/dL 09/01/2019 12:00 PM [facility] Alkaline Phosphatase 49 40 - 150 Units/L 09/01/2019 12:00 PM [facility] ALT 13 0 - 55 Units/L 09/01/2019 12:00 PM [facility] AST 13 5 - 34 Units/L 09/01/2019 12:00 PM [facility] Anion Gap 14 8 - 18 09/01/2019 12:00 PM [facility] BUN/Creatinine Ratio 20 7 - 23 09/01/2019 12:00 PM [facility] Osmolality Calculated 295 270 - 300 mOsm/kg 09/01/2019 12:00 PM [facility] Albumin/Globulin Ratio 1.5 1.1 - 2.3 09/01/2019 12:00 PM [facility] eGFR >60 >60 mL/min/1.7 3 m2 09/01/2019 12:00 PM [facility] Blood BLOOD SPECIMEN / Unknown Lab Venipuncture / Unknown 09/01/2019 11:28 AM CDT 09/01/2019 11:38 AM T Markus Cabral MD LAB - CHEMISTRY ORDERABLES Performing Organization Address City/State/[facility] Co de Phone Number [address] [address] [phone] * (ABNORMAL) CBC WITH DIFFERENTIAL (09/01/2019 11:28 AM CDT) WBC 8.9 3.5 - 10.5 10? 3 /uL 09/01/2019 11:44 AM [facility] RBC 5.01(H) 3.90 - 5.00 10? 6 /uL 09/01/2019 11:44 AM [facility] Hemoglobin 13.5 12.0 - 15.5 g/dL 09/01/2019 11:44 AM [facility] Hematocrit 43.5 35.0 - 45.0 % 09/01/2019 11:44 AM [facility] MCV 86.8 81.0 - 97.0 fL 09/01/2019 11:44 AM [facility] MCH 26.9(L) 28.0 - 34.0 pg 09/01/2019 11:44 AM [facility] MCHC 31.0(L) 32.0 - 36.0 g/dL 09/01/2019 11:44 AM [facility] Platelet Count 311 150 - 400 10? 3 /uL 09/01/2019 11:44 AM [facility] RDW-SD 46.8 36.0 - 50.0 fL 09/01/2019 11:44 AM [facility] RDW-CV 14.7 11.2 - 14.8 % 09/01/2019 11:44 AM [facility] MPV 9.3 9.3 - 12.8 fL 09/01/2019 11:44 AM [facility] nRBC Absolute 0.00 0 10? 3 /uL 09/01/2019 11:44 AM [facility] nRBC Auto 0.0 0 /100 WBC 09/01/2019 11:44 AM [facility] Neutrophils % 64.8 35.0 - 70.0 % 09/01/2019 11:44 AM [facility] Lymphocytes % 18.0(L) 19.7 - 55.1 % 09/01/2019 11:44 AM [facility] Monocytes % 8.2 3.0 - 15.0 % 09/01/2019 11:44 AM [facility] Eosinophils % 7.6(H) 0.0 - 6.0 % 09/01/2019 11:44 AM [facility] Basophil % 1.2 0.0 - 1.5 % 09/01/2019 11:44 AM [facility] Neutrophils Absolute 5.7 1.6 - 7.0 10? 3 /uL 09/01/2019 11:44 AM [facility] Lymphocyte Absolute 1.6 0.8 - 2.9 10? 3 /uL 09/01/2019 11:44 AM CDT [facility] Monocytes Absolute 0.73(H) 0.14 - 0.66 10? 3 /uL 09/01/2019 11:44 AM CDT [facility] Eosinophils Absolute 0.67(H) 0.00 - 0.45 10? 3 /uL 09/01/2019 11:44 AM CDT [facility] Basophils Absolute 0.11(H) 0.00 - 0.06 10? 3 /uL 09/01/2019 11:44 AM CDT [facility] Immature Granulocytes % 0.2 0.0 - 1.0 % 09/01/2019 11:44 AM CDT [facility] Blood BLOOD SPECIMEN / Unknown Lab Venipuncture / Unknown 09/01/2019 11:28 AM CDT 09/01/2019 11:38 AM CDT Markus Cabral MD LAB - HEMATOLOGY ORDERABLES [address] [address], [facility] [[email or web address]] [phone] * IGA BLOOD (09/01/2019 11:28 AM CDT) IgA 96 87 - 534 mg/dL 09/01/2019 12:01 PM T [facility] Blood BLOOD SPECIMEN / Unknown Lab Venipuncture / Unknown 09/01/2019 11:28 AM CDT 09/01/2019 11:38 AM CDT Markus Cabral MD LAB - CHEMISTRY ORDERABLES [address] [address], [facility] [[email or web address]] [phone] * IGM BLOOD (09/01/2019 11:28 AM CDT) IgM 57 22 - 293 mg/dL 09/01/2019 12:01 PM CDT [facility] Blood BLOOD SPECIMEN / Unknown Lab Venipuncture / Unknown 09/01/2019 11:28 AM CDT 09/01/2019 11:38 AM CDT Markus Cabral MD LAB - CHEMISTRY ORDERABLES Performing Organization Address City/[facility]/ZIP Co de Phone Number [address] [address], [facility] [[email or web address]] [phone] * IGG BLOOD (09/01/2019 11:28 AM CDT) IgG 783 540-1,822 mg/dL 09/01/2019 12:01 PM CDT [facility] Blood BLOOD SPECIMEN / Unknown Lab Venipuncture / Unknown 09/01/2019 11:28 AM CDT 09/01/2019 11:38 AM CDT Markus Cabral MD LAB - CHEMISTRY ORDERABLES Performing Organization Address City/[facility] Co de Phone Number [address] [address], [facility] [[email or web address]] [phone] documented in this encounter Visit Diagnoses Diagnosis ANIA (internuclear ophthalmoplegia), bilateral- Primary Multiple sclerosis (HCC) Multiple sclerosis documented in this encounter Care Teams Financial Services Assistant Relationship Specialty Start Date End Date Lauren Saba APRN-CLINICAL SERVICES CONSULTANT [address] [place] [phone] PCP - General 01/14/18 05/10/23 documented as of this encounter
--- OUTSIDE RECORDS SUMMARY | 2024-03-22 16:39 | XMS_ITS | Encounter Summary ---
Author Organization [facility] Health Address [address] [facility] [address] Care Team Providers Care Dormitory Maid Name Role Phone Wandy, Lauren JOSHI Primary Care Provider Encounter Details Date Type Department Care Team (Late st Contact Info) Description 05/22/2018 Orders Only [facility] [address] [place] [address] Alesia Vazquez APRN-CNP [address] [place] [phone] Social History Tobacco Use Types Packs/Day Years [...] Progress Notes * Alesia Vazquez APRN-CNP - 05/22/2018 1:00 PM CST Lorazepam ordered to take prior to MRI. METER OPERATOR documented in this encounter Plan of Treatment Upcoming Encounters Date Type Department Care Team (Late st Contact Info) Description 04/04/2024 8:30 AM PYROMETER OPERATOR Office Visit [facility] - Dermatology [address] [place] [address], [place] [address] Marlys Zaragoza MD [address] [place] [address] [address] [place] [phone] 09/03/2024 9:00 AM CDT Office Visit [facility] - Neurology [address] [place] [address], [place] [phone] Melissa Crook APRN-CNP [address] [place] [phone] documented as of this encounter Visit Diagnoses Not on filedocumented in this encounter Care Teams Dormitory Maid Relationship Specialty Start Date End Date Lauren Saba APRN-CNP [address] [place] [phone] PCP - General 01/14/18 05/10/23 documented as of this encounter
--- OUTSIDE RECORDS SUMMARY | 2024-03-22 16:39 | XMS_ITS | Encounter Summary ---
Author Organization [facility] Health Address [address] [facility] [place] [address] Care Team Providers Care Fancy Sewer Name Role Phone Lauren Saba LISETTE-CANNON PINION ADJUSTER Primary Care Provider Reason for Visit * Reason Comments Results Encounter Details Date Type Department Care Team (Latest Contact Info) Description 03/21/2019 11:00 AM AUTOMOTIVE MACHINIST Office Visit [facility] [address] [place] [address] Jefferson Suarez, PhD [address] [place] [address] Major neurocognitive disorder due to another medical condition (HCC) (Primary Dx); MS (multiple sclerosis) (HCC); Nonintractable epilepsy without status epilepticus, unspecified epilepsy type (HCC); Cannabis abuse, daily use Social History Tobacco [...] Progress Notes * Jefferson Suarez, PhD - 03/21/2019 2:32 PM CST Ms. Frost, accompanied by her mother, returned to clinic to receive results of recent neuropsychological evaluation. The results, my impressions and recommendations were discussed in detail and the patient and her mother expressed having good understanding. They were provided the opportunity to ask q uestions, which were all answered prior to conclusion of this encounter. Greater than 31minutes were spent delivering [place] [address] [place]in association with base code [id number] billed for the initial evaluation dated 01/31/2019. Jefferson Suarez, Ph.D. Neuropsychology Service MOTIVE MACHINIST documented in this encounter Plan of Treatment Upcoming Encounters Date Type Department Care Team (Late st Contact Info) Description 04/04/2024 8:30 AM AUTOMOTIVE MACHINIST Office Visit [facility] - Dermatology [address] [place] [address], [place] [address] Marlys Zaragoza MD [address] [place] [address] 3 [place] [address] 09/03/2024 9:00 AM CDT Office Visit [facility] - Neurology [address] [place] [address], [place] [address] Melissa Crook APRN-CANNON PINION ADJUSTER [address] [place] [phone] documented as of this encounter Visit Diagnoses Diagnosis Major neurocognitive disorder due to another medical condition (HCC)- Primary MS (multiple sclerosis) (HCC) Multiple sclerosis Nonintractable epilepsy without status epilepticus, unspecified epilepsy type (HCC) Cannabis abuse, daily use Cannabis abuse, continuous documented in this encounter Care Teams Fancy Sewer Relationship Specialty Start Date End Date Lauren Saba, E COMMERCE WEB DEVELOPER-CANNON PINION ADJUSTER [address] [place] [phone] PCP - General 01/14/18 05/10/23 documented as of this encounter
--- OUTSIDE RECORDS SUMMARY | 2024-03-22 16:39 | XMS_ITS | Encounter Summary ---
Author Organization [facility] Health Address [address] [facility] [place] [address] Care Team Providers Care Bus Attendant Name Role Phone Lauren Saba ADI Primary Care Provider Reason for Visit * Reason Onset Date Comments MEDICATION REFILL 12/19/2018 Encounter Details Date Type Department Care Team (Late Contact Info) Description 12/19/2018 Refill [facility] [address] [place] [address] Alesia Vazquez APRN-[address] [phone] MEDICATION REFILL Social History Tobacco Use Types [...] (Late Contact Info) Description 04/04/2024 8:30 AM ASSISTANT PUBLIC DEFENDER Office Visit [facility] - Dermatology [address] [place] [address] [place] [phone] Marlys Zaragoza MD [address] [facility] 3L [place] [address] 09/03/2024 9:00 AM CDT Office Visit [facility] - Neurology [address] [facility], [place] [address] Melissa Crook APRN-NAIF [address] [place] [phone] documented as of this encounter Visit Diagnoses [...] movements documented in this encounter Care Teams Bus Attendant Relationship Specialty Start Date End Date Lauren Saba APRN-PASTEURISER OPERATOR [address] [place] [phone] PCP - General 01/14/18 05/10/23 documented as of this encounter
--- OUTSIDE RECORDS SUMMARY | 2024-03-22 16:39 | XMS_ITS | Encounter Summary ---
Author Organization [facility] Health Address [address] [facility] [address] Care Team Providers Care Calculus Teacher Name Role Phone Lauren Saba Primary Care Provider Reason for Referral * Radiology Services (Routine) - Closed Specialty Diagnoses / Procedures Referred By Nicole shipley Referred To Contact Neurology Diagnoses MS (multiple sclerosis) (HCC) Procedures MRI CERVICAL SPINE WWO Alesia Machuca APRN-CNP [address] [place] [address] [facility] Neur- [address] [place] [address] Referral ID Status Reason Start Date Expiration Date Visits Re quested Visits Authorized [id number] Closed 05/22/2018 11/18/2018 1 1 Reason for Visit * Radiology Services (Routine) - Closed Specialty Diagnoses / Procedures Referred By Nicole shipley Referred To Contact Neurology Diagnoses MS (multiple sclerosis) (HCC) Procedures MRI CERVICAL SPINE WWO Alesia Machuca APRN-CNP [address] [place] [address] [facility] Ne[facility]- 3 [address] [place] [address] Referral ID Status Reason Start Date Expiration Date Visits Re quested Visits Authorized [id number] Closed 05/22/2018 11/18/2018 1 1 Encounter Details Date Type Department Care Team (Latest Contact Info) Description 07/15/2018 9:07 AM CDT - 07/15/2018 11:59 PM CDT Hospital Encounter [facility] MRI [address] [place] [phone] Alesia Vazquez, SITE LEADER-KILN TESTER [address] [facility] 1L [facility] [place] [address] Discharge Disposition: Home or Self [...] baclofen (LIORESAL) 10 MG tabletIndications:MS (multiple sclerosis) ([facility]),Vitamin D deficiency,High risk medication use,Nonintractable epilepsy without status epilepticus, unspecified epilepsy type ([facility]),Mild cognitive impairment,Intractab le chronic migraine without aura [...] fluticasone propionate (FLONASE) 50 MCG/ACT nasal spray [place] 1 [place] into the nose 03/05/2014 04/11/2021 ibuprofen (MOTRIN) [...] st Contact Info) Description 04/04/2024 8:30 AM INVESTIGATIVE AGENT Office Visit [facility] - Dermatology [address] [place] [address], [place] [phone] Marlys Zaragoza MD [address] [place] [address] [place] [phone] 09/03/2024 9:00 AM CDT Office Visit [facility] [address] [place] [phone] Melissa Crook, LISETTE-KILN TESTER [address] [place] [phone] documented as of this encounter Procedures Procedure Name Priority Date/Time Associated Diagnosis Comments MRI CERVICAL SPINE WWO CONT Routine 07/15/2018 11:14 AM CDT MS (multiple sclerosis) (HCC) documented in this encounter Results * MRI CERVICAL SPINE WWO CONT (07/15/2018 [...] small perineural cysts of the bilateral exiting [id number] in the bilateral T1-T2 neural foramina. The [...] ANAND on 07/15/201812:43 PM . Alesia Vazquez APRN-KILN TESTER MR ORDERABLES documented in this encounter Visit Diagnoses Diagnosis MS (multiple sclerosis) (HCC) Multiple sclerosis documented in this encounter Care Teams Calculus Teacher Relationship Specialty Start Date End Date Lauren Saba APRN-NAIF [address] [place] [phone] PCP - General 01/14/18 05/10/23 documented as of this encounter
--- OUTSIDE RECORDS SUMMARY | 2024-03-22 16:39 | XMS_ITS | Encounter Summary ---
Author Organization [facility] Health Address [address] [facility] [place] [address] Care Team Providers Care Special Investigation Unit Investigator Name Role Phone WandyLauren APRN-COLLISION ESTIMATOR Primary Care Provider Reason for Visit * Oncology Prior Authorization (Routine) - Closed Specialty Diagnoses / Procedures Referred By Contac t Referred To Contact Diagnoses MS (multiple sclerosis) (HCC) Deja Godinez, PharmD [address] [place] [address] [facility] [address] [place] [address] Referral ID Status Reason Start Date Expiration Date Visits Re quested Visits Authorized [id number] Closed 11/10/2019 11/09/2020 1 1 Encounter Details Date Type Department Care Team (Latest Contact Info) Description 11/12/2019 9:00 AM CDT Procedure visit [facility] [place] [address] [place] [address] MS (multiple sclerosis) (HCC) Social [...] Sign Reading Time Taken Comments Blood Pressure 120/75 11/12/2019 9:28 AM CDT Pulse 88 11/12/2019 9:28 AM CDT Temperature 36.7 ??C (98.1 ??F) 11/12/2019 9:28 AM CD T Respiratory Rate 16 11/12/2019 9:28 AM CDT Oxygen Saturation 98% 11/12/2019 9:28 AM CDT Inhaled Oxygen Concentration - - Weight 63.2 kg (139 lb 4.8 oz) 11/12/2019 9:28 A M CDT Height 165.1 cm (5' 5 ) 11/12/2019 9:28 AM CDT Body Mass Index 23.18 11/12/2019 9:28 AM CDT documented in this encounter Plan of Treatment Upcoming Encounters Date Type Department Care Team (Late st Contact Info) Description 04/04/2024 8:30 AM INTERNAL CONTROLS CONSULTANT Office Visit [facility] - Dermatology [address] [place] [address], [place] [phone] Marlys Zaragoza MD [address] [place] [address] [place] [phone] 09/03/2024 9:00 AM CDT Office Visit [facility] - Neurology [address] [place] [phone] Melissa Crook, LISETTE-COLLISION ESTIMATOR [address] [place] [phone] documented as of this encounter Visit Diagnoses Diagnosis MS (multiple sclerosis) (HCC)- Primary Multiple sclerosis documented in this encounter Administered Medications Inactive Administered Medications - up to 3 most recent administrations Medication Order MAR Action Action Date Dose Rate Site acetaminophen (TYLENOL) tablet 650 mg 650 mg, Oral, ONCE, 1 dose, On Sun11/12/19 at 0930, Maximum allowable Acetaminophen amount = 4 Grams (4000 mg) / 24 hours. Administer pre-medications 30-60 minutes prior to ocrelizumab. $ Given 11/12/2019 9:25 AM CDT 650 mg diphenhydrAMINE (BENADRYL) capsule 50 mg 50 mg, Oral, ONCE, 1 dose, On Sun11/12/19 at 0930, Use IV if patient not tolerating PO Administer pre-medications 30-60 minutes prior to ocrelizumab. $ Given 11/12/2019 9:25 AM CDT 50 mg methylPREDNISolone sod succ (SOLU-Medrol) 250 mg in 0.9% NaCl IV 50 mL IVPB bolus 250 mg, at 100 mL/hr, Intravenous, ONCE, 1 dose, On Sun11/12/19 at 0930, Reconstituted solution may be given via direct IV injection over 2-5 minutes without further dilution. Administer pre-medications 30-60 minutes prior to ocrelizumab. $ New Bag/Syringe 11/12/2019 9:36 AM CDT 250 mg 100 mL/hr ocrelizumab (OCREVUS) 600 mg in 0.9% NaCl IV 520 mL infusion 600 mg, Intravenous, CONTINUOUS, Starting on Sun11/12/19 at 1000, Until Sun11/12/19 at 1558, Start at 40 mL/hr and increase by 40 mL/hr every 30 minutes to a maximum of 200 mL/hr. Observe patient for 1 hour post infusion Administer via dedicated line with a 0.2 or 0.22 micron in-line filter $ New Bag/Syringe 11/12/2019 10:16 AM CDT 600 mg documented in this encounter Care Teams Special Investigation Unit Investigator Relationship Specialty Start Date End Date Lauren Saba, [employer] ARCHITECT-COLLISION ESTIMATOR [address] [place] [address] PCP - General 01/14/18 05/10/23 documented as of this encounter
--- OUTSIDE RECORDS SUMMARY | 2024-03-22 16:39 | XMS_ITS | Encounter Summary ---
Author Organization [facility] Health Address [address] [facility] [place] [address] Care Team Providers Care Online Marketing Coordinator Name Role Phone Lauren Saba Primary Care Provider Reason for Referral * Radiology Services (Routine) - Closed Specialty Diagnoses / Procedures Referred By Nicole shipley Referred To Contact Neurology Diagnoses MS (multiple sclerosis) (HCC) Intractable chronic 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 without status migrainosus Seizure (HCC) Procedures MRI BRAIN WWO CONTRAST Alesia Vazquez APRN-CNP [address] [place] [address] [facility] Neur- [address] [place] [address] Referral ID Status Reason Start Date Expiration Date Visits Re quested Visits Authorized [id number] Closed 05/22/2018 11/18/2018 1 1 Reason for Visit * Radiology Services (Routine) - Closed Specialty Diagnoses / Procedures Referred By Nicole shipley Referred To Contact Neurology Diagnoses MS (multiple sclerosis) (HCC) Intractable chronic 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 without status migrainosus Seizure (HCC) Procedures MRI BRAIN WWO CONTRAST Alesia Vazquez APRN-CNP [address] [place] [address] [facility] Neur- [address] [place] [address] Referral ID Status Reason Start Date Expiration Date Visits Re quested Visits Authorized [id number] Closed 05/22/2018 11/18/2018 1 1 Encounter Details Date Type Department Care Team (Latest Contact Info) Description 07/15/2018 9:07 AM CDT - 07/15/2018 11:59 PM CDT Hospital Encounter [facility] MRI [address] [place] [phone] Alesia Vazquez, ROPING TENDER-SEPARATING MACHINE OPERATOR [address] [facility] [address] [place] [phone] Discharge Disposition: Home or Self Care Social [...] epilepsy type ([facility]),Mild cognitive impairment,Intractab le chronic migraine without aura [...] fluticasone propionate (FLONASE) 50 MCG/ACT nasal spray [place] 1 [place] into the nose 03/05/2014 04/11/2021 ibuprofen (MOTRIN) [...] st Contact Info) Description 04/04/2024 8:30 AM FUNDING COORDINATOR Office Visit [facility] - Dermatology [address] [place] [address], [place] [phone] Marlys Zaragoza MD [address] [place] [address] [place] [phone] 09/03/2024 9:00 AM CDT Office Visit [facility] - Neurology [address] [place] [phone] Melissa Crook, ROPING TENDER-SEPARATING MACHINE OPERATOR [address] [place] [address] documented as of this encounter Procedures Procedure Name Priority Date/Time Associated Diagnosis Comments MRI BRAIN WWO CONTRAST Routine 07/15/2018 11:13 AM CDT MS (multiple sclerosis) (HCC) Intractable chronic 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 without status migrainosus Seizure (HCC) CREATININE BLOOD - POCT (IP) [facility] Routine 07/15/2018 9:31 AM CDT MS (multiple sclerosis) ([facility]) documented in this encounter Results * MRI BRAIN WWO CONTRAST (07/15/2018 11:13 [...] small perineural cysts of the bilateral exiting X1toltzt in the bilateral T1-T2 neural foramina. The [...] ORDERABLES * CREATININE BLOOD - POCT (IP) [facility] (07/15/2018 9:31 AM CDT) Creatinine POCT 1.04 0.3 - 1.3 mg/dL [facility] POCT TESTING eGFR POCT 60 60 ml/min [facility] POCT TESTING Blood BLOOD SPECIMEN / Unknown 07/15/2018 9:31 AM CDT Alesia JOSHI LAB - POINT OF CARE ORDERABLES [facility] POCT TESTING [address] [phone] documented in this encounter Visit Diagnoses Diagnosis MS (multiple sclerosis) (HCC) Multiple sclerosis Intractable chronic 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 without status migrainosus Chronic migraine without aura, with intractable migraine, so stated, without mention of status migrainosus Seizure (HCC) Other convulsions documented in this encounter Administered Medications Inactive Administered Medications - up to 3 most recent administrations Medication Order MAR Action Action Date Dose Rate Site gadobutrol (GADAVIST) injection Intravenous, CONTRAST ONCE, Starting on 07/15/18 at 0929, Until Sun07/16/18 at 0127 $ Given - Contrast 07/15/2018 10:42 AM CDT 6 mL documented in this encounter Care Teams Online Marketing Coordinator Relationship Specialty Start Date End Date Lauren Saba APRN-SEPARATING MACHINE OPERATOR [address] [place] [phone] PCP - General 01/14/18 05/10/23 documented as of this encounter
--- OUTSIDE RECORDS SUMMARY | 2024-03-22 16:39 | XMS_ITS | Encounter Summary ---
Author Organization [facility] Health Address [address] [place] [address] Care Team Providers Care Residential Construction Instructor Name Role Phone Lauren Saab Jose Eduardo KNOX-KIOSK SALES REPRESENTATIVE Primary Care Provider Reason for Visit * Reason Onset Date Comments Medication Issue 11/14/2018 tretinoin Encounter Details Date Type Department Care Team (Late st Contact Info) Description 11/14/2018 Telephone [facility] [address] [place] [address] Carey Wiggins MA Medication Issue (tretinoin) Social History Tobacco Use Types Packs/Day Years [...] Telephone Encounter - Carey Wiggins MA - 11/14/2018 5:[address] Castano Yes, please switch to tret 0.1% cream, thank you Carey! Sending new script now. Carey Wiggins MA * Telephone Encounter - Carey Wiggins MA - 11/14/2018 9:56 AM CDT Received a fax from Pt's [facility] pharmacy stating that tretinoin 0.05% cream is not covered. The Pt's insurance plan will cover tretinoin 0.1% gel, tretinoin 0.025% gel, and tretinoin 0.1% cream. OK to change to one of these? Carey Wiggins MA documented in this encounter Plan of Treatment Upcoming Encounters Date Type Department Care Team (Late st Contact Info) Description 04/04/2024 8:30 AM BICYCLE II ASSEMBLER Office Visit [facility] - Dermatology [address] [place] [address], [place] [phone] Marlys Zaragoza MD [address] [place] [address] 3 [place] [phone] 09/03/2024 9:00 AM CDT Office Visit [facility] - Neurology [address] [place] [phone] Melissa Crook APRN-NAIF [address] [place] [phone] documented as of this encounter Visit Diagnoses Not on filedocumented in this encounter Care Teams Residential Construction Instructor Relationship Specialty Start Date End Date Lauren Saba LENS POLISHER HAND-KIOSK SALES REPRESENTATIVE [address] [place] [phone] PCP - General 01/14/18 05/10/23 documented as of this encounter
--- OUTSIDE RECORDS SUMMARY | 2024-03-22 16:40 | XMS_ITS | Encounter Summary ---
Author Organization [facility] Health Address [address] [place] [address] Care Team Providers Care Rn Women Services Name Role Phone Unknown, Provider Primary Care Provider Unavaila ble Encounter Details Date Type Department Care Team (Latest Contact Info) Description 10/10/2017 12:07 PM CDT - 10/10/2017 11:59 PM CDT Hospital Encounter [facility] DRAW STATION [address] [place] [phone] Alesia Vazquez, UC ARCHITECT-DIRECTOR OF PRECLINICAL RESEARCH [address] [place] [phone] Discharge Disposition: Home or Self Care Social History Tobacco Use Types Packs/Day Years Used Date Smoking Tobacco: Never Smokeless Tobacco: Never Alcohol Use Standard Drinks/Week Comments Yes 0 (1 standard drink = 0.6 oz [...] muscle every 28 days 1 Each 5 08/23/2017 04/30/2018 albuterol HFA (PROVENTIL;VENTOLIN;RI OAIR) 108 (90 BASE) MCG/ACT inhaler Inhale 2 Puffs by mouth every 6 hours 03/05/2014 04/11/2021 baclofen (LIORESAL) 10 MG tabletIndications:MS (multiple sclerosis) ([facility]),Vitamin D deficiency,High risk medication use,Nonintractable epilepsy without status epilepticus, unspecified epilepsy type ([facility]),Mild cognitive impairment,Intractable chronic 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 without status migrainosus,Spasticity Take 1 tablet by mouth 2 times daily May cause drowsiness. 60 tablet 11 10/10/2017 12/10/2017 benztropine (COGENTIN) 0.5 MG tablet Take 1 tablet by mouth 2 times daily 60 tablet 2 08/23/2017 04/15/2018 budesonide-formoterol (SYMBICORT) 160-4.5 MCG/ACT inhaler 11/02/2015 10/03/2018 calcium carbonate (TUMS) 500 MG chew tablet Take 500 mg by mouth as needed for GI Upset 09/13/2016 01/27/2019 erythromycin (ERYDERM) 2 % solution GRACY THIN LAYER EXT TO FACE 1 TO 2 XD 2 08/05/2017 11/20/2017 fluticasone propionate (FLONASE) 50 MCG/ACT nasal spray [place] 1 [place] into the nose 03/05/2014 04/11/2021 hydrOXYzine hcl (ATARAX) 25 MG tablet Take 1 tablet by mouth 2 times daily as needed 60 tablet 3 08/23/2017 04/15/2018 ibuprofen (MOTRIN) 600 MG tablet Take 1 tablet by mouth every 6 hours as needed 1 06/02/2017 04/15/2018 Ocrelizumab (OCREVUS IV)Indications:every 6 months 600 mg by Intravenous route Reasons: every 6 months 04/11/2021 onabotulinumtoxin A (BOTOX) 100 UNITS injection Inject 200 Units into muscle Every 90 days 04/18/2017 01/14/2018 raNITIdine (ZANTAC) 150 MG tablet Take 1 tablet by mouth 2 times daily as needed 01/10/2017 01/27/2019 SUMAtriptan (IMITREX) 50 MG tablet Take 1 tablet by mouth once as needed for Migraine (take one with headache, can repeat in 2 hours, no more than 2 in 24 hours.) 9 tablet 5 07/18/2017 01/14/2018 tretinoin (RETIN-A) 0.05 % cream 05/22/2017 11/20/2017 vitamin D3 (CHOLECACIFEROL) 5000 UNITSIndications:MS (multiple sclerosis) (HCC),Vitamin D deficiency,High risk medication use,Nonintractable epilepsy without status epilepticus, unspecified epilepsy type (HCC),Mild cognitive impairment,Intractable chronic 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 without status migrainosus,Spasticity Take 1 tablet by mouth once daily 30 tablet 5 10/10/2017 03/18/2019 zonisamide (ZONEGRAN) 100 MG capsule Take 400 mg by mouth at bedtime 05/23/2017 01/14/2018 documented as of this encounter Plan of Treatment Upcoming Encounters Date Type Department Care Team (Late st Contact Info) Description 04/04/2024 8:30 AM SENIOR MANAGER QUALITY ASSURANCE Office Visit [facility] - Dermatology [address] [place] [phone] Marlys Zaragoza MD [address] [place] [address] 3 [place] [phone] 09/03/2024 9:00 AM CDT Office Visit [facility] - Neurology [address] [place] [phone] Melissa Crook, LISETTE-DIRECTOR OF PRECLINICAL RESEARCH [address] [place] [phone] documented as of this encounter Procedures Procedure Name Priority Date/Time Associated Diagnosis Comments CBC W AUTO DIFFERENTIAL Routine 10/10/2017 12:18 PM CDT High risk medication use Seizure (HCC) Vitamin D deficiency MS (multiple sclerosis) (HCC) COMPREHENSIVE METABOLIC PANEL Routine 10/10/2017 12:18 PM CDT High risk medication use Seizure (HCC) Vitamin D deficiency MS (multiple sclerosis) (HCC) documented in this encounter Results * (ABNORMAL) COMPREHENSIVE METABOLIC PANEL (10/10/2017 12:18 PM CDT) BUN 16 7 - 26 mg/dL 10/10/2017 1:03 PM [facility] Creatinine 0.7 0.6 - 1.2 mg/dL 10/10/2017 1:03 PM [facility] Sodium 141 136 - 145 mmol/L 10/10/2017 1:03 PM [facility] Potassium 4.2 3.5 - 4.5 mmol/L 10/10/2017 1:03 PM [facility] Chloride 109(H) 98 - 107 mmol/L 10/10/2017 1:03 PM [facility] CO2 25 22 - 29 mmol/L 10/10/2017 1:03 PM [facility] Glucose 107 70 - 115 mg/dL 10/10/2017 1:03 PM [facility] Calcium 9.4 8.4 - 10.2 mg/dL 10/10/2017 1:03 PM [facility] Protein Total 6.8 6.0 - 8.3 g/dL 10/10/2017 1:03 PM [facility] Albumin 3.9 3.4 - 5.0 g/dL 10/10/2017 1:03 PM [facility] Bilirubin Total 0.2 0.2 - 1.2 mg/dL 10/10/2017 1:03 PM [facility] Alkaline Phosphatase 57 40 - 150 Units/L 10/10/2017 1:03 PM [facility] ALT 12 0 - 55 Units/L 10/10/2017 1:03 PM [facility] AST 12 5 - 34 Units/L 10/10/2017 1:03 PM [facility] Anion Gap 11 8 - 18 10/10/2017 1:03 PM [facility] BUN/Creatinine Ratio 23 7 - 23 10/10/2017 1:03 PM [facility] Osmolality Calculated 294 270 - 300 mOsm/kg 10/10/2017 1:03 PM [facility] Albumin/Globulin Ratio 1.3 1.1 - 2.3 10/10/2017 1:03 PM [facility] eGFR >60 >60 mL/min/1.7 3 m2 10/10/2017 1:03 PM CDT [facility] Blood BLOOD SPECIMEN / Unknown Lab Venipuncture / Unknown 10/10/2017 12:18 PM CDT 10/10/2017 12:32 PM CDT Devan Renee MD LAB - CHEMISTRY ORDERABLES [facility] [address] [phone] * (ABNORMAL) CBC W AUTO DIFFERENTIAL (10/10/2017 12:18 PM CDT) WBC 8.4 3.5 - 10.5 10? 3 /uL 10/10/2017 12:44 PM [facility] RBC 4.97 3.90 - 5.00 10? 6 /uL 10/10/2017 12:44 PM [facility] Hemoglobin 12.7 12.0 - 15.5 g/dL 10/10/2017 12:44 PM [facility] Hematocrit 40.2 35.0 - 45.0 % 10/10/2017 12:44 PM [facility] MCV 80.9(L) 81.0 - 97.0 fL 10/10/2017 12:44 PM [facility] MCH 25.6(L) 28.0 - 34.0 pg 10/10/2017 12:44 PM [facility] MCHC 31.6(L) 32.0 - 36.0 g/dL 10/10/2017 12:44 PM [facility] Platelet Count 364 150 - 400 10? 3 /uL 10/10/2017 12:44 PM [facility] RDW-SD 44.9 36.0 - 50.0 fL 10/10/2017 12:44 PM [facility] RDW-CV 15.4(H) 11.2 - 14.8 % 10/10/2017 12:44 PM [facility] MPV 9.1(L) 9.3 - 12.8 fL 10/10/2017 12:44 PM [facility] Neutrophils % 68.0 35.0 - 70.0 % 10/10/2017 12:44 PM [facility] Lymphocytes % 18.1(L) 19.7 - 55.1 % 10/10/2017 12:44 PM [facility] Monocytes % 8.2 3.0 - 15.0 % 10/10/2017 12:44 PM [facility] Eosinophils % 5.0 0.0 - 6.0 % 10/10/2017 12:44 PM [facility] Basophil % 0.7 0.0 - 1.5 % 10/10/2017 12:44 PM [facility] Neutrophils Absolute 5.7 1.6 - 7.0 10? 3 /uL 10/10/2017 12:44 PM [facility] Lymphocyte Absolute 1.5 0.8 - 2.9 10? 3 /uL 10/10/2017 12:44 PM [facility] Monocytes Absolute 0.69(H) 0.14 - 0.66 10? 3 /uL 10/10/2017 12:44 PM [facility] Eosinophils Absolute 0.42(H) 0.00 - 0.22 10? 3 /uL 10/10/2017 12:44 PM [facility] Basophils Absolute 0.06 0.00 - 0.06 10? 3 /uL 10/10/2017 12:44 PM [facility] Immature Granulocytes % 0.2 0.0 - 1.0 % 10/10/2017 12:44 PM [facility] Blood BLOOD SPECIMEN / Unknown Lab Venipuncture / Unknown 10/10/2017 12:18 PM CDT 10/10/2017 12:32 PM CDT Devan Renee MD LAB - HEMATOLOG Y ORDERABLES [facility] [address] [place] [address] documented in this encounter Visit Diagnoses Diagnosis High risk medication use Encounter for long-term (current) use of other medications Seizure (HCC) Other convulsions Vitamin D deficiency MS (multiple sclerosis) (HCC) Multiple sclerosis documented in this encounter Care Teams Rn Women Services Relationship Specialty Start Date End Date Unknown, Provider PCP - General 07/18/17 01/13/18 documented as of this encounter
--- OUTSIDE RECORDS SUMMARY | 2024-03-22 16:40 | XMS_ITS | Encounter Summary ---
Author Organization [facility] Health Address [address] [facility] [place] [address] Care Team Providers Care Asphalt Mixer Name Role Phone Michael Palm MD Primary Care Provider [phone] Encounter Details Date Type Department Care Team (Late Contact Info) Description 06/25/2015 Hospital Outpatient Visit Historic [facility] MAIN LAB [address] [place] [address] Rubén Adams MD [facility] [address] [facility] [place] [phone] Discharge Disposition: Home or Self Care Social [...] (Late Contact Info) Description 04/04/2024 8:30 AM CONTOUR GRINDER Office Visit [facility] - Dermatology [address] [place] [address], [place] [phone] Marlys Zaragoza MD [address] [place] [address] 3 [place] [phone] 09/03/2024 9:00 AM CDT Office Visit [facility] - Neurology [address] [facility] [place] [phone] Melissa Crook APRN-BAND LOG MILL AND CARRIAGE OPERATOR [address] [place] [phone] documented as of this encounter Visit Diagnoses Not on filedocumented in this encounter Care Teams Asphalt Mixer Relationship Specialty Start Date End Date Michael Palm MD [address] [place] [address] [address] [place] [address] PCP - General Internal Medicine 01/31/16 06/25/17 documented as of this encounter
--- OUTSIDE RECORDS SUMMARY | 2024-03-22 16:40 | XMS_ITS | Encounter Summary ---
Author Organization [facility] Health Address [address] [facility] [place] [address] Care Team Providers Care Thermite Bomb Loader Name Role Phone Michael Palm MD Primary Care Provider [phone] Encounter Details Date Type Department Care Team (Latest Contact Info) Description 09/17/2015 Hospital Outpatient Visit Historic [facility] MAIN LAB [address] [place] [address] Simon Carcamo MD [address] [place] [address] Discharge Disposition: Home or Self Care Social [...] Contact Info) Description 04/04/2024 8:30 AM PAYROLL CLERK Office Visit [facility] - [facility]erm[facility], [place] [phone] Marlys Zaragoza MD [address] [place] [address] 3 [place] [phone] 09/03/2024 9:00 AM CDT Office Visit [facility]rology [address] [facility], [facility] [place] [address] Melissa Crook APRN-VISCOSITY TESTER [address] [place] [phone] documented as of this encounter Visit Diagnoses Not on filedocumented in this encounter Care Teams Thermite Bomb Loader Relationship Specialty Start Date End Date Michael Palm MD [address] [place] [address] [address] [place] [address] PCP - General Internal Medicine 01/31/16 06/25/17 documented as of this encounter
--- OUTSIDE RECORDS SUMMARY | 2024-03-22 16:40 | XMS_ITS | Encounter Summary ---
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 Office Visit [facility] - Dermatology [address] [place] [address], [place] [id number] Marlys Zaragoza MD [address] [place] [address] 3 [place] [id number] 09/03/2024 9:00 AM CDT Office Visit [facility] - Neurology [address] [place] [address], [place] [address] Melissa Crook, MEDICAL DRIVER-JOCKEY AGENT [address] [place] [address] documented as of this encounter Procedures Procedure Name Priority Date/Time Associated Diagnosis Comments GLUCOSE ACCUCHECK Routine 08/15/2016 8:4 6 PM CDT GLUCOSE ACCUCHECK Routine 08/14/2016 7:5 4 AM CDT GLUCOSE ACCUCHECK Routine 08/13/2016 9:2 8 PM CDT GLUCOSE ACCUCHECK Routine 08/13/2016 5:5 0 PM CDT GLUCOSE ACCUCHECK Routine 08/13/2016 12: 18 PM CDT GLUCOSE ACCUCHECK Routine 08/13/2016 7:4 6 AM CDT GLUCOSE ACCUCHECK Routine 08/12/2016 8:3 1 PM CDT GLUCOSE ACCUCHECK Routine 08/12/2016 4:5 9 PM CDT GLUCOSE ACCUCHECK Routine 08/12/2016 12: 36 PM CDT GLUCOSE ACCUCHECK Routine 08/12/2016 7:4 0 AM CDT GLUCOSE ACCUCHECK Routine 08/11/2016 8:1 7 PM CDT GLUCOSE ACCUCHECK Routine 08/11/2016 5:2 5 PM CDT GLUCOSE ACCUCHECK Routine 08/11/2016 11: 42 AM CDT GLUCOSE ACCUCHECK Routine 08/11/2016 7:1 2 AM CDT GLUCOSE ACCUCHECK Routine 08/10/2016 5:5 1 PM CDT GLUCOSE ACCUCHECK Routine 08/10/2016 7:3 6 AM CDT GLUCOSE ACCUCHECK Routine 08/09/2016 8:1 3 PM CDT GLUCOSE ACCUCHECK Routine 08/09/2016 5:2 6 PM CDT GLUCOSE ACCUCHECK Routine 08/09/2016 12: 23 PM CDT GLUCOSE ACCUCHECK Routine 08/09/2016 7:1 3 AM CDT GLUCOSE ACCUCHECK Routine 08/09/2016 12: 05 AM CDT MRI THORACIC SPINE WWO CONT STAT 08/08/2016 11:29 PM CDT MRI CERVICAL SPINE WWO CONT STAT 08/08/2016 11:29 PM CDT MRI BRAIN WWO CONTRAST STAT 08/08/2016 11:29 PM CDT documented in this encounter Results * GLUCOSE ACCUCHECK (08/15/2016 8:46 PM CDT) Glucose, Fingerstick 105 70-115mg/d L mg/dL [facility] ([facility]) Comment:Trim Line Worker: BECKY BARCENAS 08/15/2016 8:46 PM CDT Bere Denton MD LAB - CHEMISTRY [place] DOBBS [facility] ([facility]) * GLUCOSE ACCUCHECK (08/14/2016 7:54 AM CDT) Glucose, Fingerstick 94 70-115mg/d L mg/dL [facility] ([facility]) Comment:Trim Line Worker: SUSAN HUANG 08/14/2016 7:54 AM CDT Bere Denton MD LAB - CHEMISTRY [place] DOBBS [facility] ([facility]) * (ABNORMAL) GLUCOSE ACCUCHECK (08/13/2016 9:28 PM CDT) Glucose, Fingerstick 170(H) 70-115mg/d L mg/dL [facility] ([facility]) Comment:Trim Line Worker: ODALIS TREADWELL 08/13/2016 9:28 PM CDT Bere Denton MD LAB - CHEMISTRY [place] DOBBS Performing Organization Address City/[facility]/ZIP Co de Phone Number [facility] ([facility]) * (ABNORMAL) GLUCOSE ACCUCHECK (08/13/2016 5:50 PM CDT) Glucose, Fingerstick 186(H) 70-115mg/d L mg/dL [facility] ([facility]) Comment:Trim Line Worker: KO CARROLL 08/13/2016 5:50 PM CDT Bere Denton MD LAB - CHEMISTRY [place] DOBBS Performing Organization Address [facility]/ZIP Co de Phone Number [facility] ([facility]) * (ABNORMAL) GLUCOSE ACCUCHECK (08/13/2016 12:18 PM CDT) Glucose, Fingerstick 133(H) 70-115mg/d L mg/dL [facility] ([facility]) Comment:Trim Line Worker: KO CARROLL 08/13/2016 12:1 8 PM CDT Bere Denton MD LAB - CHEMISTRY [place] DOBBS [facility] ([facility]) * GLUCOSE ACCUCHECK (08/13/2016 7:46 AM CDT) Glucose, Fingerstick 101 70-115mg/d L mg/dL [facility] (BEAKER) Comment:Trim Line Worker: OK LOFTONMICHA 08/13/2016 7:46 AM CDT Bere Denton MD LAB - CHEMISTRY [place] DOBBS Performing Organization Address City/[facility]/ZIP Co de Phone Number [facility] (BE[facility]) * (ABNORMAL) GLUCOSE ACCUCHECK (08/12/2016 8:31 PM CDT) Glucose, Fingerstick 193(H) 70-115mg/d L mg/dL [facility] (BE[facility]) Comment:Trim Line Worker: RON Ferreira ENISE 08/12/2016 8:31 PM CDT Bere Denton MD LAB - CHEMISTRY [place] DOBBS Performing Organization Address [facility] Co de Phone Number [facility] (BEAKER) * (ABNORMAL) GLUCOSE ACCUCHECK (08/12/2016 4:59 PM CDT) Glucose, Fingerstick 222(H) 70-115mg/d L mg/dL [facility] (BEAKER) Comment:Trim Line Worker: RON Ferreira ENISE 08/12/2016 4:59 PM CDT Bere Denton MD LAB - CHEMISTRY [place] DOBBS Performing Organization Address [facility]/ZIP Co de Phone Number [facility] ([facility]) * (ABNORMAL) GLUCOSE ACCUCHECK (08/12/2016 12:36 PM CDT) Glucose, Fingerstick 129(H) 70-115mg/d L mg/dL [facility] (BEAKER) Comment:Trim Line Worker: RON Ferreira ENISE 08/12/2016 12:3 6 PM CDT Bere Denton MD LAB - CHEMISTRY [place] DOBBS [facility] (BEAKER) * GLUCOSE ACCUCHECK (08/12/2016 7:40 AM CDT) Glucose, Fingerstick 103 70-115mg/d L mg/dL [facility] ([facility]) Comment:Trim Line Worker: RON Ferreira ENISE 08/12/2016 7:40 AM CDT Bere Denton MD LAB - CHEMISTRY ORDGustavo DOBBS Performing Organization Address City/[facility]/ZIP Co de Phone Number [facility] ([facility]) * (ABNORMAL) GLUCOSE ACCUCHECK (08/11/2016 8:17 PM CDT) Glucose, Fingerstick 177(H) 70-115mg/d L mg/dL [facility] ([facility]) Comment:Trim Line Worker: ELYSE TERRAZAS 08/11/2016 8:17 PM CDT Bere Denton MD LAB - CHEMISTRY [place] DOBBS Performing Organization Address [facility]/ZIP Co de Phone Number [facility] ([facility]) * (ABNORMAL) GLUCOSE ACCUCHECK (08/11/2016 5:25 PM CDT) Glucose, Fingerstick 171(H) 70-115mg/d L mg/dL [facility] ([facility]) Comment:Trim Line Worker: QUIN GONCALVES PALLAVI 08/11/2016 5:25 PM CDT Bere Denton MD LAB - CHEMISTRY ORDGustavo DOBBS Performing Organization Address City/[facility]/ZIP Co de Phone Number [facility] ([facility]) * GLUCOSE ACCUCHECK (08/11/2016 11:42 AM CDT) Glucose, Fingerstick 101 70-115mg/d L mg/dL [facility] ([facility]) Comment:Trim Line Worker: QUIN GONCALVES PALLAVI 08/11/2016 11:4 2 AM CDT Bere Denton MD LAB - CHEMISTRY [place] [employer]BBS [facility] ([facility]) * GLUCOSE ACCUCHECK (08/11/2016 7:12 AM CDT) Glucose, Fingerstick 109 70-115mg/d L mg/dL [facility] ([facility]) Comment:Trim Line Worker: QUIN OLIVO 08/11/2016 7:12 AM CDT Bere Denton MD LAB - CHEMISTRY [place] [employer]BBS [facility] ([facility]) * (ABNORMAL) GLUCOSE ACCUCHECK (08/10/2016 5:51 PM CDT) Glucose, Fingerstick 163(H) 70-115mg/d L mg/dL [facility] ([facility]) Comment:Trim Line Worker: Raiza BHAKTA 08/10/2016 5:5 1 PM CDT Bere Denton MD LAB - CHEMISTRY [place] DOBBS Performing Organization Address City/[facility]/ZIP Co de Phone Number [facility] ([facility]) * (ABNORMAL) GLUCOSE ACCUCHECK (08/10/2016 7:36 AM CDT) Glucose, Fingerstick 126(H) 70-115mg/d L mg/dL [facility] ([facility]) Comment:Trim Line Worker: KING JUAN 08/10/2016 7:36 AM CDT Bere Denton MD LAB - CHEMISTRY [place] DOBBS [facility] ([facility]) * (ABNORMAL) GLUCOSE ACCUCHECK (08/09/2016 8:13 PM CDT) Glucose, Fingerstick 190(H) 70-115mg/d L mg/dL [facility] (BE[facility]) Comment:Trim Line Worker: ROMIE SOTO 08/09/2016 8:13 PM CDT Bere Denton MD LAB - CHEMISTRY [place] DOBBS [facility] ([facility]) * (ABNORMAL) GLUCOSE ACCUCHECK (08/09/2016 5:26 PM CDT) Glucose, Fingerstick 175(H) 70-115mg/d L mg/dL [facility] ([facility]) Comment:Trim Line Worker: EASTON SOTO OLVIN 08/09/2016 5:26 PM CDT Bere Denton MD LAB - CHEMISTRY [place] DOBBS [facility] ([facility]) * GLUCOSE ACCUCHECK (08/09/2016 12:23 PM CDT) Glucose, Fingerstick 85 70-115mg/d L mg/dL [facility] ([facility]) Comment:Trim Line Worker: SRIDHARBETTYNICK CHARLES OLVIN 08/09/2016 12:2 3 PM CDT Bere Denton MD LAB - CHEMISTRY [place] DOBBS [facility] ([facility]) * (ABNORMAL) GLUCOSE ACCUCHECK (08/09/2016 7:13 AM CDT) Glucose, Fingerstick 152(H) 70-115mg/d L mg/dL [facility] ([facility]) Comment:Trim Line Worker: JESSICA LIGHT 08/09/2016 7:13 AM CDT Bere Denton MD LAB - CHEMISTRY [place] DOBBS [facility] ([facility]) * (ABNORMAL) GLUCOSE ACCUCHECK (08/09/2016 12:05 AM CDT) Glucose, Fingerstick 147(H) 70-115mg/d L mg/dL [facility] ([facility]) Comment:Trim Line Worker: SALO HUANG 08/09/2016 12:0 5 AM CDT Bere Denton MD LAB - CHEMISTRY [place] DOBBS [facility] ([facility]) * MRI BRAIN WWO CONTRAST (08/08/2016 11:29 PM CDT) Anatomical Region Laterality Modality Head Other Impressions 08/09/2016 10:53 AM CDT IMPRESSION: 1. Limited examination due to lack of intravenous contrast in the brain and cervical spine due to patient's refusal to continue the exam. 2. Continued interval increase in size and number of demyelinating plaques in the brain which are now more confluent with associated diffusion restriction in many of the lesions. Some of the lesions appear to be smaller in size. These findings are most consistent with multiple sclerosis exacerbation with active tumefactive demyelination although superimposed progressive multifocal leukoencephalopathy cannot be excluded. 3. Patchy and extensively STIR hyperintense lesions throughout the cervical and thoracic spine are grossly unchanged and most likely correspond to patient's history of multiple sclerosis. No enhancing lesion in the thoracic spine cord to suggest active demyelinating disease in the thoracic spine. This report was approved ??by Melly Saavedra M.D. ?? on 08/09/2016 8:58 AM . I, Dr. KAYCE ECHOLS M.D. have personally reviewed and interpreted this examination/study. This report was electronically signed by KAYCE ECHOLS M.D. ??on 08/09/2016 10:53 AM . Narrative 08/09/2016 10:53 AM CDT EXAMINATION: 1. Magnetic resonance imaging (MRI) of the brain without and with contrast. 2. MRI of the cervical and thoracic spine without and with contrast. HISTORY: Multiple sclerosis flare up. TECHNIQUE: MRI of the brain as well as the cervical and thoracic spine was performed prior to and following the uneventful administration of 6 mL Gadavist intravenous gadolinium contrast according to a demyelination protocol. Postcontrast images of the brain and cervical spine were not obtained due to patient's refusal to continue the examination. FINDINGS: Comparison is made with a study from 07/12/2016 Brain: No evidence of acute or chronic hemorrhage is identified. No evidence of acute cerebral infarction is seen. There is mild cerebral volume loss with associated ex vacuo ventricular dilatation. No mass effect or midline shift is seen. There has been continued interval increase in the number and size of FLAIR hyperintense periventricular, subcortical, cerebellar hemispheric, and brainstem lesions with increased confluence of the periventricular and subcortical lesions. ??There is interval decrease in size of a few FLAIR hyperintense lesions seen previously on the prior examination. For instance, a masslike FLAIR hyperintense lesion in the body of the corpus callosum (series 2 image 20) is smaller in size. Many of these FLAIR hyperintense lesions demonstrate corresponding T1 hypointensity, likely representing myelin vacuolization, markedly increased since the prior examination. Associated diffusion restriction in many of lesions in the periventricular and subcortical white matter as well as a lesion in the left middle cerebellar peduncle consistent with active tumefactive demyelination. The sella appears normal. The visualized portions of the orbits, paranasal sinuses, and mastoids appear normal. Normal flow voids are demonstrated in the carotid arteries and basilar artery. The calvarium appears normal. Cervical spine: The alignment is normal. Vertebral bodies are normal in height without evidence of compression fractures. Marrow signal intensity is normal. Patchy STIR hyperintensity extending from the craniocervical junction inferiorly along the entirety of the cervical cord is redemonstrated which is grossly similar to the prior examination although accurate comparison is difficult due to patchy and diffuse pattern. Abscess of intravenous contrast also limits the exam for accurate evaluation. The previously seen myositis in the cervical spine paravertebral muscles are has decreased. The intervertebral discs appear normal. No central canal stenosis is seen. The facets appear normal. The uncovertebral joints appear normal. No neural foraminal stenosis is seen. Normal flow voids are identified in the vertebral arteries. Thoracic spine: Motion artifact degrades the examination. The alignment is normal. Vertebral bodies are normal in height without evidence of compression fractures. Other than a hemangioma within the T9 vertebral body, the marrow signal intensity is normal. Patchy T2/STIR hyperintensity within the thoracic cord extending from T2 to T10 is grossly similar to the prior exam. ??No enhancing lesions to suggest active demyelination within the thoracic cord are identified. There is diffuse atrophy of the spinal cord. There is a disc bulge at T8-9, unchanged. No central canal stenosis is seen. The facets appear normal. No neural foraminal stenosis is seen. No soft tissue abnormality is identified. Procedure Note Kayce Echols MD - 06/15/2017 EXAMINATION: 1. Magnetic resonance imaging (MRI) of the brain without and withcontrast. 2. MRI of the cervical and thoracic spine without and with contrast. HISTORY: Multiple sclerosis flare up. TECHNIQUE: MRI of the brain as well as the cervical and thoracic spine wasperformed prior to and following the uneventful administration of 6 mLGadavist intravenous gadolinium contrast according to a demyelinationprotocol. Postcontrast images of the brain and cervical spine were not obtained due to patient's refusal tocontinue the examination. FINDINGS: Comparison is made with a study from 07/12/2016 Brain: No evidence of acute or chronic hemorrhage is identified. No evidence ofacute cerebral infarction is seen. There is mild cerebral volume loss withassociated ex vacuo ventricular dilatation. No mass effect or midlineshift is seen. There has been continued interval increase in the number and size of FLAIR hyperintenseperiventricular, subcortical, cerebellar hemispheric, and brainstemlesions with increased confluence of the periventricular and subcorticallesions. There is interval decrease in size of a few FLAIR hyperintense lesions seen previously on the priorexamination. For instance, a masslike FLAIR hyperintense lesion in thebody of the corpus callosum (series 2 image 20) is smaller in size. Manyof these FLAIR hyperintense lesions demonstrate corresponding T1 hypointensity, likely representing myelinvacuolization, markedly increased since the prior examination. Associateddiffusion restriction in many of lesions in the periventricular andsubcortical white matter as well as a lesion in the left middle cerebellar peduncle consistent with activetumefactive demyelination. The sella appears normal. The visualized portions of the orbits, paranasal sinuses, and mastoidsappear normal. Normal flow voids are demonstrated in the carotid arteriesand basilar artery. The calvarium appears normal. Cervical spine: The alignment is normal. Vertebral bodies are normal in height withoutevidence of compression fractures. Marrow signal intensity is normal.Patchy STIR hyperintensity extending from the craniocervical junctioninferiorly along the entirety of the cervical cord is redemonstrated which is grossly similar to the priorexamination although accurate comparison is difficult due to patchy anddiffuse pattern. Abscess of intravenous contrast also limits the exam foraccurate evaluation. The previously seen myositis in the cervical spine paravertebral musclesare has decreased. The intervertebral discs appear normal. No central canal stenosis is seen.The facets appear normal. The uncovertebral joints appear normal. Noneural foraminal stenosis is seen. Normal flow voids are identified in thevertebral arteries. Thoracic spine: Motion artifact degrades the examination. The alignment is normal. Vertebral bodies are normal in height withoutevidence of compression fractures. Other than a hemangioma within the [id number] body, the marrow signal intensity is normal. Patchy T2/STIRhyperintensity within the thoracic cord extending from T2 to T10 is grossly similar to the prior exam. Noenhancing lesions to suggest active demyelination within the thoracic cordare identified. There is diffuse atrophy of the spinal cord. There is a disc bulge at T8-9, unchanged. No central canal stenosis isseen. The facets appear normal. No neural foraminal stenosis is seen. Nosoft tissue abnormality is identified. IMPRESSION IMPRESSION: 1. Limited examination due to lack of intravenous contrast in the brainand cervical spine due to patient's refusal to continue the exam. 2. Continued interval increase in size and number of demyelinating plaquesin the brain which are now more confluent with associated diffusionrestriction in many of the lesions. Some of the lesions appear to besmaller in size. These findings are most consistent with multiple sclerosis exacerbation with active tumefactivedemyelination although superimposed progressive multifocalleukoencephalopathy cannot be excluded. 3. Patchy and extensively STIR hyperintense lesions throughout thecervical and thoracic spine are grossly unchanged and most likelycorrespond to patient's history of multiple sclerosis. No enhancing lesionin the thoracic spine cord to suggest active demyelinating disease in the thoracic spine. This report was approved by Melly Saavedra M.D. on 08/09/2016 8:58 AM . IDr. KAYCE M.D. have personally reviewed and interpreted thisexamination/study. This report was electronically signed by KAYCE ECHOLS M.D. on 08/09/201610:53 AM . Kassie Juárez MD MR ORDERABLES * MRI CERVICAL SPINE WWO CONT (08/08/2016 11:29 PM CDT) Anatomical Region Laterality Modality Spine Other Impressions 08/09/2016 10:53 AM CDT IMPRESSION: 1. Limited examination due to lack of intravenous contrast in the brain and cervical spine due to patient's refusal to continue the exam. 2. Continued interval increase in size and number of demyelinating plaques in the brain which are now more confluent with associated diffusion restriction in many of the lesions. Some of the lesions appear to be smaller in size. These findings are most consistent with multiple sclerosis exacerbation with active tumefactive demyelination although superimposed progressive multifocal leukoencephalopathy cannot be excluded. 3. Patchy and extensively STIR hyperintense lesions throughout the cervical and thoracic spine are grossly unchanged and most likely correspond to patient's history of multiple sclerosis. No enhancing lesion in the thoracic spine cord to suggest active demyelinating disease in the thoracic spine. This report was approved ??by Melly Saavedra M.D. ?? on 08/09/2016 8:58 AM . I, Dr. KAYCE ECHOLS M.D. have personally reviewed and interpreted this examination/study. This report was electronically signed by KAYCE ECHOLS M.D. ??on 08/09/2016 10:53 AM . Narrative 08/09/2016 10:53 AM CDT EXAMINATION: 1. Magnetic resonance imaging (MRI) of the brain without and with contrast. 2. MRI of the cervical and thoracic spine without and with contrast. HISTORY: Multiple sclerosis flare up. TECHNIQUE: MRI of the brain as well as the cervical and thoracic spine was performed prior to and following the uneventful administration of 6 mL Gadavist intravenous gadolinium contrast according to a demyelination protocol. Postcontrast images of the brain and cervical spine were not obtained due to patient's refusal to continue the examination. FINDINGS: Comparison is made with a study from 07/12/2016 Brain: No evidence of acute or chronic hemorrhage is identified. No evidence of acute cerebral infarction is seen. There is mild cerebral volume loss with associated ex vacuo ventricular dilatation. No mass effect or midline shift is seen. There has been continued interval increase in the number and size of FLAIR hyperintense periventricular, subcortical, cerebellar hemispheric, and brainstem lesions with increased confluence of the periventricular and subcortical lesions. ??There is interval decrease in size of a few FLAIR hyperintense lesions seen previously on the prior examination. For instance, a masslike FLAIR hyperintense lesion in the body of the corpus callosum (series 2 image 20) is smaller in size. Many of these FLAIR hyperintense lesions demonstrate corresponding T1 hypointensity, likely representing myelin vacuolization, markedly increased since the prior examination. Associated diffusion restriction in many of lesions in the periventricular and subcortical white matter as well as a lesion in the left middle cerebellar peduncle consistent with active tumefactive demyelination. The sella appears normal. The visualized portions of the orbits, paranasal sinuses, and mastoids appear normal. Normal flow voids are demonstrated in the carotid arteries and basilar artery. The calvarium appears normal. Cervical spine: The alignment is normal. Vertebral bodies are normal in height without evidence of compression fractures. Marrow signal intensity is normal. Patchy STIR hyperintensity extending from the craniocervical junction inferiorly along the entirety of the cervical cord is redemonstrated which is grossly similar to the prior examination although accurate comparison is difficult due to patchy and diffuse pattern. Abscess of intravenous contrast also limits the exam for accurate evaluation. The previously seen myositis in the cervical spine paravertebral muscles are has decreased. The intervertebral discs appear normal. No central canal stenosis is seen. The facets appear normal. The uncovertebral joints appear normal. No neural foraminal stenosis is seen. Normal flow voids are identified in the vertebral arteries. Thoracic spine: Motion artifact degrades the examination. The alignment is normal. Vertebral bodies are normal in height without evidence of compression fractures. Other than a hemangioma within the T9 vertebral body, the marrow signal intensity is normal. Patchy T2/STIR hyperintensity within the thoracic cord extending from T2 to T10 is grossly similar to the prior exam. ??No enhancing lesions to suggest active demyelination within the thoracic cord are identified. There is diffuse atrophy of the spinal cord. There is a disc bulge at T8-9, unchanged. No central canal stenosis is seen. The facets appear normal. No neural foraminal stenosis is seen. No soft tissue abnormality is identified. Procedure Note Kayce Echols MD - 06/15/2017 EXAMINATION: 1. Magnetic resonance imaging (MRI) of the brain without and withcontrast. 2. MRI of the cervical and thoracic spine without and with contrast. HISTORY: Multiple sclerosis flare up. TECHNIQUE: MRI of the brain as well as the cervical and thoracic spine wasperformed prior to and following the uneventful administration of 6 mLGadavist intravenous gadolinium contrast according to a demyelinationprotocol. Postcontrast images of the brain and cervical spine were not obtained due to patient's refusal tocontinue the examination. FINDINGS: Comparison is made with a study from 07/12/2016 Brain: No evidence of acute or chronic hemorrhage is identified. No evidence ofacute cerebral infarction is seen. There is mild cerebral volume loss withassociated ex vacuo ventricular dilatation. No mass effect or midlineshift is seen. There has been continued interval increase in the number and size of FLAIR hyperintenseperiventricular, subcortical, cerebellar hemispheric, and brainstemlesions with increased confluence of the periventricular and subcorticallesions. There is interval decrease in size of a few FLAIR hyperintense lesions seen previously on the priorexamination. For instance, a masslike FLAIR hyperintense lesion in thebody of the corpus callosum (series 2 image 20) is smaller in size. Manyof these FLAIR hyperintense lesions demonstrate corresponding T1 hypointensity, likely representing myelinvacuolization, markedly increased since the prior examination. Associateddiffusion restriction in many of lesions in the periventricular andsubcortical white matter as well as a lesion in the left middle cerebellar peduncle consistent with activetumefactive demyelination. The sella appears normal. The visualized portions of the orbits, paranasal sinuses, and mastoidsappear normal. Normal flow voids are demonstrated in the carotid arteriesand basilar artery. The calvarium appears normal. Cervical spine: The alignment is normal. Vertebral bodies are normal in height withoutevidence of compression fractures. Marrow signal intensity is normal.Patchy STIR hyperintensity extending from the craniocervical junctioninferiorly along the entirety of the cervical cord is redemonstrated which is grossly similar to the priorexamination although accurate comparison is difficult due to patchy anddiffuse pattern. Abscess of intravenous contrast also limits the exam foraccurate evaluation. The previously seen myositis in the cervical spine paravertebral musclesare has decreased. The intervertebral discs appear normal. No central canal stenosis is seen.The facets appear normal. The uncovertebral joints appear normal. Noneural foraminal stenosis is seen. Normal flow voids are identified in thevertebral arteries. Thoracic spine: Motion artifact degrades the examination. The alignment is normal. Vertebral bodies are normal in height withoutevidence of compression fractures. Other than a hemangioma within the [id number] body, the marrow signal intensity is normal. Patchy T2/STIRhyperintensity within the thoracic cord extending from T2 to T10 is grossly similar to the prior exam. Noenhancing lesions to suggest active demyelination within the thoracic cordare identified. There is diffuse atrophy of the spinal cord. There is a disc bulge at T8-9, unchanged. No central canal stenosis isseen. The facets appear normal. No neural foraminal stenosis is seen. Nosoft tissue abnormality is identified. IMPRESSION IMPRESSION: 1. Limited examination due to lack of intravenous contrast in the brainand cervical spine due to patient's refusal to continue the exam. 2. Continued interval increase in size and number of demyelinating plaquesin the brain which are now more confluent with associated diffusionrestriction in many of the lesions. Some of the lesions appear to besmaller in size. These findings are most consistent with multiple sclerosis exacerbation with active tumefactivedemyelination although superimposed progressive multifocalleukoencephalopathy cannot be excluded. 3. Patchy and extensively STIR hyperintense lesions throughout thecervical and thoracic spine are grossly unchanged and most likelycorrespond to patient's history of multiple sclerosis. No enhancing lesionin the thoracic spine cord to suggest active demyelinating disease in the thoracic spine. This report was approved by Melly Saavedra M.D. on 08/09/2016 8:58 AM . I, Dr. KAYCE ECHOLS M.D. have personally reviewed and interpreted thisexamination/study. This report was electronically signed by KAYCE ECHOLS M.D. on 08/09/201610:53 AM . Kassie Juárez MD MR ORDERABLES * MRI THORACIC SPINE WWO CONT (08/08/2016 11:29 PM CDT) Anatomical Region Laterality Modality Spine Other Impressions 08/09/2016 10:53 AM CDT IMPRESSION: 1. Limited examination due to lack of intravenous contrast in the brain and cervical spine due to patient's refusal to continue the exam. 2. Continued interval increase in size and number of demyelinating plaques in the brain which are now more confluent with associated diffusion restriction in many of the lesions. Some of the lesions appear to be smaller in size. These findings are most consistent with multiple sclerosis exacerbation with active tumefactive demyelination although superimposed progressive multifocal leukoencephalopathy cannot be excluded. 3. Patchy and extensively STIR hyperintense lesions throughout the cervical and thoracic spine are grossly unchanged and most likely correspond to patient's history of multiple sclerosis. No enhancing lesion in the thoracic spine cord to suggest active demyelinating disease in the thoracic spine. This report was approved ??by Melly Saavedra M.D. ?? on 08/09/2016 8:58 AM . I, Dr. KAYCE ECHOLS M.D. have personally reviewed and interpreted this examination/study. This report was electronically signed by KAYCE ECHOLS M.D. ??on 08/09/2016 10:53 AM . Narrative 08/09/2016 10:53 AM CDT EXAMINATION: 1. Magnetic resonance imaging (MRI) of the brain without and with contrast. 2. MRI of the cervical and thoracic spine without and with contrast. HISTORY: Multiple sclerosis flare up. TECHNIQUE: MRI of the brain as well as the cervical and thoracic spine was performed prior to and following the uneventful administration of 6 mL Gadavist intravenous gadolinium contrast according to a demyelination protocol. Postcontrast images of the brain and cervical spine were not obtained due to patient's refusal to continue the examination. FINDINGS: Comparison is made with a study from 07/12/2016 Brain: No evidence of acute or chronic hemorrhage is identified. No evidence of acute cerebral infarction is seen. There is mild cerebral volume loss with associated ex vacuo ventricular dilatation. No mass effect or midline shift is seen. There has been continued interval increase in the number and size of FLAIR hyperintense periventricular, subcortical, cerebellar hemispheric, and brainstem lesions with increased confluence of the periventricular and subcortical lesions. ??There is interval decrease in size of a few FLAIR hyperintense lesions seen previously on the prior examination. For instance, a masslike FLAIR hyperintense lesion in the body of the corpus callosum (series 2 image 20) is smaller in size. Many of these FLAIR hyperintense lesions demonstrate corresponding T1 hypointensity, likely representing myelin vacuolization, markedly increased since the prior examination. Associated diffusion restriction in many of lesions in the periventricular and subcortical white matter as well as a lesion in the left middle cerebellar peduncle consistent with active tumefactive demyelination. The sella appears normal. The visualized portions of the orbits, paranasal sinuses, and mastoids appear normal. Normal flow voids are demonstrated in the carotid arteries and basilar artery. The calvarium appears normal. Cervical spine: The alignment is normal. Vertebral bodies are normal in height without evidence of compression fractures. Marrow signal intensity is normal. Patchy STIR hyperintensity extending from the craniocervical junction inferiorly along the entirety of the cervical cord is redemonstrated which is grossly similar to the prior examination although accurate comparison is difficult due to patchy and diffuse pattern. Abscess of intravenous contrast also limits the exam for accurate evaluation. The previously seen myositis in the cervical spine paravertebral muscles are has decreased. The intervertebral discs appear normal. No central canal stenosis is seen. The facets appear normal. The uncovertebral joints appear normal. No neural foraminal stenosis is seen. Normal flow voids are identified in the vertebral arteries. Thoracic spine: Motion artifact degrades the examination. The alignment is normal. Vertebral bodies are normal in height without evidence of compression fractures. Other than a hemangioma within the T9 vertebral body, the marrow signal intensity is normal. Patchy T2/STIR hyperintensity within the thoracic cord extending from T2 to T10 is grossly similar to the prior exam. ??No enhancing lesions to suggest active demyelination within the thoracic cord are identified. There is diffuse atrophy of the spinal cord. There is a disc bulge at T8-9, unchanged. No central canal stenosis is seen. The facets appear normal. No neural foraminal stenosis is seen. No soft tissue abnormality is identified. Procedure Note Kayce Echols MD - 06/15/2017 EXAMINATION: 1. Magnetic resonance imaging (MRI) of the brain without and withcontrast. 2. MRI of the cervical and thoracic spine without and with contrast. HISTORY: Multiple sclerosis flare up. TECHNIQUE: MRI of the brain as well as the cervical and thoracic spine wasperformed prior to and following the uneventful administration of 6 mLGadavist intravenous gadolinium contrast according to a demyelinationprotocol. Postcontrast images of the brain and cervical spine were not obtained due to patient's refusal tocontinue the examination. FINDINGS: Comparison is made with a study from 07/12/2016 Brain: No evidence of acute or chronic hemorrhage is identified. No evidence ofacute cerebral infarction is seen. There is mild cerebral volume loss withassociated ex vacuo ventricular dilatation. No mass effect or midlineshift is seen. There has been continued interval increase in the number and size of FLAIR hyperintenseperiventricular, subcortical, cerebellar hemispheric, and brainstemlesions with increased confluence of the periventricular and subcorticallesions. There is interval decrease in size of a few FLAIR hyperintense lesions seen previously on the priorexamination. For instance, a masslike FLAIR hyperintense lesion in thebody of the corpus callosum (series 2 image 20) is smaller in size. Manyof these FLAIR hyperintense lesions demonstrate corresponding T1 hypointensity, likely representing myelinvacuolization, markedly increased since the prior examination. Associateddiffusion restriction in many of lesions in the periventricular andsubcortical white matter as well as a lesion in the left middle cerebellar peduncle consistent with activetumefactive demyelination. The sella appears normal. The visualized portions of the orbits, paranasal sinuses, and mastoidsappear normal. Normal flow voids are demonstrated in the carotid arteriesand basilar artery. The calvarium appears normal. Cervical spine: The alignment is normal. Vertebral bodies are normal in height withoutevidence of compression fractures. Marrow signal intensity is normal.Patchy STIR hyperintensity extending from the craniocervical junctioninferiorly along the entirety of the cervical cord is redemonstrated which is grossly similar to the priorexamination although accurate comparison is difficult due to patchy anddiffuse pattern. Abscess of intravenous contrast also limits the exam foraccurate evaluation. The previously seen myositis in the cervical spine paravertebral musclesare has decreased. The intervertebral discs appear normal. No central canal stenosis is seen.The facets appear normal. The uncovertebral joints appear normal. Noneural foraminal stenosis is seen. Normal flow voids are identified in thevertebral arteries. Thoracic spine: Motion artifact degrades the examination. The alignment is normal. Vertebral bodies are normal in height withoutevidence of compression fractures. Other than a hemangioma within the [id number] body, the marrow signal intensity is normal. Patchy T2/STIRhyperintensity within the thoracic cord extending from T2 to T10 is grossly similar to the prior exam. Noenhancing lesions to suggest active demyelination within the thoracic cordare identified. There is diffuse atrophy of the spinal cord. There is a disc bulge at T8-9, unchanged. No central canal stenosis isseen. The facets appear normal. No neural foraminal stenosis is seen. Nosoft tissue abnormality is identified. IMPRESSION IMPRESSION: 1. Limited examination due to lack of intravenous contrast in the brainand cervical spine due to patient's refusal to continue the exam. 2. Continued interval increase in size and number of demyelinating plaquesin the brain which are now more confluent with associated diffusionrestriction in many of the lesions. Some of the lesions appear to besmaller in size. These findings are most consistent with multiple sclerosis exacerbation with active tumefactivedemyelination although superimposed progressive multifocalleukoencephalopathy cannot be excluded. 3. Patchy and extensively STIR hyperintense lesions throughout thecervical and thoracic spine are grossly unchanged and most likelycorrespond to patient's history of multiple sclerosis. No enhancing lesionin the thoracic spine cord to suggest active demyelinating disease in the thoracic spine. This report was approved by Melly Saavedra M.D. on 08/09/2016 8:58 AM . I, Dr. KAYCE ECHOLS M.D. have personally reviewed and interpreted thisexamination/study. This report was electronically signed by KAYCE ECHOLS M.D. on 08/09/201610:53 AM . Kassie Juárez MD MR ORDERABLES documented in this encounter Visit Diagnoses Not on filedocumented in this encounter Care Teams Rail Engineer Relationship Specialty Start Date End Date Michael Palm MD [address] [place] [address] [address] [place] [address] PCP - General Internal Medicine 01/31/16 06/25/17 documented as of this encounter
--- OUTSIDE RECORDS SUMMARY | 2024-03-22 16:40 | XMS_ITS | Encounter Summary ---
Author Organization [facility] Address [address] [place] [address] Care Team Providers Care Cost Analyst Name Role Phone Unknown, Provider Primary Care Provider Unavaila ble Reason for Visit * Reason Onset Date Comments Medication Prior Auth Request 08/15/2017 Encounter Details Date Type Department Care Team (Late st Contact Info) Description 08/15/2017 Telephone [facility] [address] [place] [address] Jennifer Perez MD [address] [place] [address] Medication Prior Auth Request Social History Tobacco Use Types Packs/Day Years Used Date Smoking Tobacco: Former Smokeless Tobacco: Never Alcohol Use Standard Drinks/Week Comments No 0 (1 standard drink = 0.6 oz pur e alcohol) Sex and Gender Information Value Date Recorded Sex Assigned at Female 06/22/2023 9:58 AM CDT Gender Identity Female 06/22/2023 9:58 AM CDT Sexual Orientation Straight 06/22/2023 9: 58 AM CDT documented as of this encounter Miscellaneous Notes * Telephone Encounter - Jennifer Perez MD - 08/15/2017 3:58 PM CDT OK to use OTC Differin gel. Called patient to notify of denial and recommended alternative. She wasappreciative of call. Jennifer Perez MD Dermatology Resident, PGY-4 * Telephone Encounter - Mirian Fountain LPN - 08/15/2017 3:51 PM CDT PA initiated for Tretinoin 0.05% cream Diagnosis: Acne Vulgaris Previous Treatment: BP wash, E-mycin, tretinoin PA denied by [employer]. Per denial the medication is not a covered benefit on the 2018 Medicaid Formulary. [facility] covers [facility] capsules. You may access the full formulary online at [email or web address] or contact the clinical reviewer at [phone]. Mirian Fountain documented in this encounter Plan of Treatment Upcoming Encounters Date Type Department Care Team (Late st Contact Info) Description 04/04/2024 8:30 AM BUSINESS EDUCATION INSTRUCTOR Office Visit [facility] - Dermatology [address] [place] [address], [place] [phone] Marlys Zaragoza MD [address] [place] [address] [address] [place] [phone] 09/03/2024 9:00 AM CDT Office Visit [facility] - Neurology [address] [place] [address], [place] [phone] Melissa Crook, MACHINE PRECISION [employer]CH[employer]KITCHEN MECHANIC [address] [place] [phone] documented as of this encounter Visit Diagnoses Not on filedocumented in this encounter Care Teams Cost Analyst Relationship Specialty Start Date End Date Unknown, Provider PCP - General 07/18/17 01/13/18 documented as of this encounter
--- OUTSIDE RECORDS SUMMARY | 2024-03-22 16:40 | XMS_ITS | Encounter Summary ---
Author Organization [facility] Health Address [address] [facility] [place] [address] Care Team Providers Care Dynamite Shooter Name Role Phone Michael Palm MD Primary Care Provider [phone] Encounter Details Date Type Department Care Team (Latest Contact Info) Description 03/24/2016 Hospital Outpatient Visit Historic [facility] [address] [place] [address] Devan Renee MD [address] [place] [phone] Discharge Disposition: Home or Self Care Social [...] Sign Reading Time Taken Comments Blood Pressure 115/71 03/24/2016 9:42 AM WELL DRILL OPERATOR HELPER CABLE TOOL Pulse 78 03/24/2016 9:42 AM WELL DRILL OPERATOR HELPER CABLE TOOL Temperature 35.9 ??C (96.7 ??F) 03/24/2016 9:42 AM CS T Respiratory Rate 19 03/24/2016 9:42 AM WELL DRILL OPERATOR HELPER CABLE TOOL Oxygen Saturation 100% 03/24/2016 9:42 AM WELL DRILL OPERATOR HELPER CABLE TOOL Inhaled Oxygen Concentration - - Weight - - Height - - Body Mass Index - - documented in this encounter Plan of Treatment Upcoming Encounters Date Type Department Care Team (Late st Contact Info) Description 04/04/2024 8:30 AM WELL DRILL OPERATOR HELPER CABLE TOOL Office Visit [facility] [address] [place] [address], [place] [phone] Marlys Zaragoza MD [address] [facility] 3L [place] [phone] 09/03/2024 9:00 AM CDT Office Visit [facility] - Neurology [address] [place] [address], [place] [phone] Melissa Crook APRN-CRANE OPERATOR [address] [place] [phone] documented as of this encounter Procedures Procedure Name Priority Date/Time Associated Diagnosis Comments LAB MISC TEST Routine 03/24/2016 9:51 AM WELL DRILL OPERATOR HELPER CABLE TOOL COMPREHENSIVE METABOLIC PANEL Routine 03/24/2016 9:43 AM WELL DRILL OPERATOR HELPER CABLE TOOL CBC W AUTO DIFFERENTIAL Routine 03/24/2016 9:43 AM WELL DRILL OPERATOR HELPER CABLE TOOL CBC W AUTO DIFFERENTIAL Routine 03/24/2016 9:43 AM WELL DRILL OPERATOR HELPER CABLE TOOL documented in this encounter Results * LAB MISC TEST (03/24/2016 9:51 AM WELL DRILL OPERATOR HELPER CABLE TOOL) [facility] Signature Reference Lab Results SEE SCANNED REPORT [facility] REF [facility] NON INTERF Other (qualifier value) 03/24/2016 9:51 AM WELL DRILL OPERATOR HELPER CABLE TOOL 03/24/2016 10:25 AM WELL DRILL OPERATOR HELPER CABLE TOOL Narrative [facility] REF [facility] NON INTERF - 04/23/2016 9:05 AM WELL DRILL OPERATOR HELPER CABLE TOOL Test Name:->STRATIFY JCV Reference Lab Info:->UNKNOWN Devan Renee MD LAB SEND OUT [facility] REF LAB NON INTERF * (ABNORMAL) COMPREHENSIVE METABOLIC PANEL (03/24/2016 9:43 AM WELL DRILL OPERATOR HELPER CABLE TOOL) BUN 23 7 - 26 mg/dL [facility] Creatinine 0.7 0.6 - 1.2 mg/dL [facility] Sodium 141 136 - 145 mmol/L [facility] Potassium 3.8 3.5 - 4.5 mmol/L [facility] Chloride 114(H) 98 - 107 mmol/L [facility] CO2 20(L) 22 - 29 mmol/L [facility] Glucose 99 70 - 115 mg/dL [facility] Calcium 8.7 8.4 - 10.2 mg/dL [facility] Protein Total 6.6 6.0 - 8.3 g/dL [facility] Albumin 3.7 3.4 - 5.0 g/dL [facility] Bilirubin Total 0.3 0.2 - 1.2 mg/dL [facility] Alkaline Phosphatase 58 40 - 150 Units/L [facility] ALT 11 0 - 55 Units/L [facility] AST 8 5 - 34 Units/L [facility] Anion Gap 11 8 - 18 [facility] BUN/Creatinine Ratio 33(H) 7 - 23 [facility] Osmolality Calculated 296 270 - 300 mOsm/kg [facility] Albumin/Globulin Ratio 1.3 1.1 - 2.3 [facility] eGFR >60 >60 mL/min/1.[address] [facility] Blood specimen (specimen) BLOOD SPECIMEN / Unknown 03/24/2016 9:43 AM WELL DRILL OPERATOR HELPER CABLE TOOL 03/24/2016 10:25 AM WELL DRILL OPERATOR HELPER CABLE TOOL Devan Renee MD LAB - CHEMISTRY ORDERABLES [address] [phone] * (ABNORMAL) CBC W AUTO DIFFERENTIAL (03/24/2016 9:43 AM WELL DRILL OPERATOR HELPER CABLE TOOL) Pathologist [facility] WBC 13.1(H) 3.5 - 10.5 10? 3 /uL [facility] RBC 4.31 3.90 - 5.00 10? 6 /uL [facility] Hemoglobin 12.9 12.0 - 15.5 g/dL [facility] Hematocrit 38.8 35.0 - 45.0 % [facility] MCV 90.0 81.0 - 97.[address] [facility] MCH 29.9 28.0 - 34.[address] [facility] MCHC 33.2 32.0 - 36.0 g/dL [facility] Platelet Count 366 150 - 400 10? 3 /uL [facility] RDW-SD 43.5 36.0 - 50.[address] [facility] RDW-CV 13.3 11.2 - 14.8 % [facility] MPV 9.0(L) 9.3 - 12.[address] [facility] Neutrophils % 52.1 35.0 - 70.0 % [facility] Lymphocytes % 30.6 19.7 - 55.1 % [facility] Monocytes % 7.4 3.0 - 15.0 % [facility] Eosinophils % 7.7(H) 0.0 - 6.0 % [facility] Basophil % 0.5 0.0 - 1.5 % [facility] Neutrophils Absolute 6.8 1.6 - 7.0 10? 3 /uL [facility] Lymphocyte Absolute 4.0(H) 0.8 - 2.9 10? 3 /uL [facility] Monocytes Absolute 0.97(H) 0.14 - 0.66 10? 3 /uL [facility] Eosinophils Absolute 1.01(H) 0.00 - 0.22 10? 3 /uL [facility] Basophils Absolute 0.07(H) 0.00 - 0.06 10? 3 /uL [facility] Immature Granulocytes % 1.7(H) 0.0 - 1.0 % [facility] Blood specimen (specimen) BLOOD SPECIMEN / Unknown 03/24/2016 9:43 AM WELL DRILL OPERATOR HELPER CABLE TOOL 03/24/2016 9:55 AM WELL DRILL OPERATOR HELPER CABLE TOOL Devan Renee MD LAB - HEMATOLOG Y ORDERABLES [address] [phone] * CBC W AUTO DIFFERENTIAL (03/24/2016 9:43 AM WELL DRILL OPERATOR HELPER CABLE TOOL) Blood specimen (specimen) BLOOD SPECIMEN / Unknown 03/24/2016 9:43 AM WELL DRILL OPERATOR HELPER CABLE TOOL Narrative [facility] - 03/24/2016 9:58 AM WELL DRILL OPERATOR HELPER CABLE TOOL The following orders were created for panel order CBC w/ Differential, Platelet. Procedure ? Abnormality ? Status ? --------- ? ------ ? CBC WITH DIFFERENTIAL[[id number]] ? Abnormal ?Final result ? Please view results for these tests on the individual orders. Devan Renee MD LAB - HEMATOLOG Y ORDERABLES Performing Organization Address City/State/[facility] Co de Phone Number [facility] [address] [place] [address], [facility] documented in this encounter Visit Diagnoses Diagnosis Multiple sclerosis (HCC) Multiple sclerosis Other intermediate (current) drug therapy documented in this encounter Care Teams Dynamite Shooter Relationship Specialty Start Date End Date Michael Palm MD [address] [place] [address] [address] [place] [address] PCP - General Internal Medicine 01/31/16 06/25/17 documented as of this encounter
--- OUTSIDE RECORDS SUMMARY | 2024-03-22 16:40 | XMS_ITS | Encounter Summary ---
Author Organization [facility] Health Address [address] [facility] [place] [address] Care Team Providers Care Traveling Passenger Agent Name Role Phone Lauren Saba LISETTE-NATIONAL FACILITIES MANAGER Primary Care Provider Encounter Details Date Type Department Care Team (Late Contact Info) Description 02/25/2018 Orders Only [facility] [address] [place] [address] Devan Renee MD [address] [place] [address] [place] [phone] Social History Tobacco Use Types Packs/Day Years [...] (Late Contact Info) Description 04/04/2024 8:30 AM COO Office Visit [facility] [address] [place] [phone] Marlys Zaragoza MD [address] [facility] 3L [place] [address] 09/03/2024 9:00 AM CDT Office Visit [facility] [address] [place] [address], [place] [phone] Melissa Crook, WASTE RECYCLER-NATIONAL FACILITIES MANAGER [address] [place] [address] documented as of this encounter Procedures Procedure Name Priority Date/Time Associated Diagnosis Comments ZONISAMIDE LEVEL 02/25/2018 1:53 PM COO CBC W AUTO DIFFERENTIAL 02/25/2018 1:53 PM COO COMPREHENSIVE METABOLIC PANEL 02/25/2018 1:53 PM COO documented in this encounter Results * (ABNORMAL) ZONISAMIDE LEVEL (02/25/2018 1:53 PM COO) Pathologist [facility] Zonisamide 7.2(L) 10.0 - 40.0 mcg/mL [facility] Comment: This test was developed and its analytical performance characteristics have been determined by [facility]. It has not been cleared or approved by the US Food and Drug Administration. This assay has been validated pursuant to the CLIA regulations and is used for clinical purposes. Test Performed at: [facility] [address] [place], [place] ??[phone] GERALDINE MARRUFO MD,PHD 02/25/2018 1:53 PM COO 02/25/2018 1:54 PM COO Devan Renee MD LAB - CHEMISTRY ORDERABLES [facility] [address] [place] [address] * (ABNORMAL) CBC WITH DIFFERENTIAL (02/25/2018 1:53 PM COO) Pathologist [facility] White Blood Cell Count 10.7 3.8 - 10.8 Thousand/u L [facility] RBC 5.00 3.80 - 5.10 Million/uL [facility] Hemoglobin 13.5 11.7 - 15.5 g/dL [facility] Hematocrit 41.7 35.0 - 45.0 % [facility] MCV 83.4 80.0 - 100.0 fL [facility] MCH 27.0 27.0 - 33.0 pg [facility] MCHC 32.4 32.0 - 36.0 g/dL [facility] RDW 14.0 11.0 - 15.0 % [facility] Platelet Count 386 140 - 400 Thousand/u L [facility] MPV 9.8 7.5 - 12.5 fL [facility] Neutrophil Absolute 7586 1500 - 7800 cells/uL [facility] Lymphocytes Absolute 1637 850 - 3900 cells/uL [facility] Absolute Monocytes 770 200 - 950 cells/uL [facility] Eosinophils Absolute 589(H) 15 - 500 cells/uL [facility] Basophils Absolute 118 0 - 200 cells/uL [facility] Granulocytes % 70.9 % [facility] Lymphocytes % 15.3 % [facility] Monocytes % 7.2 % [facility] Eosinophils % 5.5 % [facility] Basophils % 1.1 % [facility] Comment: Test Performed at: [facility] [address] ??[phone] BETTE ALVARES DO,MPH 02/25/2018 1:53 PM COO 02/25/2018 1:54 PM COO Devan Renee MD LAB - HEMATOLOG Y ORDERABLES [facility] [address] [place] [address] * COMPREHENSIVE METABOLIC PANEL (02/25/2018 1:53 PM COO) Pathologist [facility] Glucose 89 65 - 99 mg/dL [facility] Comment: ? Fasting reference interval BUN 16 7 - 25 mg/dL [facility] Creatinine 0.74 0.50 - 1.10 mg/dL [facility] eGFR by MDRD 103 > OR = 60 mL/min/1. 73m2 [facility] eGFR by MDRD 120 > OR = 60 mL/min/1. 73m2 [facility] BUN/Creatinine Ratio NOT APPLICABLE 6 - 22 (calc) [facility] Sodium 140 135 - 146 mmol/L [facility] Potassium 4.7 3.5 - 5.3 mmol/L [facility] Chloride 109 98 - 110 mmol/L [facility] CO2 26 20 - 32 mmol/L [facility] Calcium 9.4 8.6 - 10.2 mg/dL [facility] Protein Total 6.7 6.1 - 8.1 g/dL [facility] Albumin 4.4 3.6 - 5.1 g/dL [facility] Globulin Total 2.3 1.9 - 3.7 g/dL (calc) [facility] Albumin/Globuli n Ratio 1.9 1.0 - 2.5 (calc) [facility] Bilirubin Total 0.2 0.2 - 1.2 mg/dL [facility] Alkaline Phosphatase 50 33 - 115 U/L [facility] AST 10 10 - 30 U/L [facility] ALT 14 6 - 29 U/L [facility] Comment: Test Performed at: [facility] [address] [place] [address] ??[phone] BETTE ALVARES DO,MPH 02/25/2018 1:53 PM COO 02/25/2018 1:54 PM COO Devan Renee MD LAB - CHEMISTRY ORDERABLES Performing Organization Address City/State/[facility] Co de Phone Number [facility] [address] [place] [address] documented in this encounter Visit Diagnoses Not on filedocumented in this encounter Care Teams Traveling Passenger Agent Relationship Specialty Start Date End Date Lauren Saba, WASTE RECYCLER-NATIONAL FACILITIES MANAGER [address] [place] [phone] PCP - General 01/14/18 05/10/23 documented as of this encounter
--- OUTSIDE RECORDS SUMMARY | 2024-03-22 16:40 | XMS_ITS | Encounter Summary ---
Author Organization [facility] Health Address [address] [facility] [place] [address] Care Team Providers Care Child Welfare Caseworker Name Role Phone Michael Palm MD Primary Care Provider [phone] Encounter Details Date Type Department Care Team (Latest Contact Info) Description 08/20/2015 Hospital Outpatient Visit Historic [facility] [address] [place] [address] Simon Carcamo MD [address] [place] [address] Discharge Disposition: Home or Self Care Social [...] st Contact Info) Description 04/04/2024 8:30 AM IRRIGATIONIST DESIGNER Office Visit [facility]5 [facility], [place] [phone] Marlys Zaragoza MD [address] [place] [address] 3 [place] [phone] 09/03/2024 9:00 AM CDT Office Visit [facility] [address] [facility], [facility] [place] [address] Melissa Crook APRN-CLASSROOM INSTRUCTIONAL AIDE [address] [place] [phone] documented as of this encounter Visit Diagnoses Not on filedocumented in this encounter Care Teams Child Welfare Caseworker Relationship Specialty Start Date End Date Michael Palm MD [address] [place] [address] [address] [place] [address] PCP - General Internal Medicine 01/31/16 06/25/17 documented as of this encounter
--- OUTSIDE RECORDS SUMMARY | 2024-03-22 16:40 | XMS_ITS | Encounter Summary ---
Author Organization [facility] Health Address [address] [facility] [place] [address] Care Team Providers Care Edge Trimming Machine Operator Name Role Phone Unknown, Provider Primary Care Provider Unavaila ble Reason for Visit * Reason Comments Follow-up Acne. No improvement . Lesions left lower lip Encounter Details Date Type Department Care Team (Late st Contact Info) Description 11/20/2017 9:40 AM CDT Office Visit [facility] [address] [place] [address] Vinicio Orellana MD [address] [place] [address] Acne vulgaris (Primary Dx); Labial melanotic macule Social History Tobacco Use Types Packs/Day Years [...] this encounter Patient Instructions * Patient Instructions* Vinicio Orellana MD - 11/20/2017 10:15 AM CDT Return in 1 year, sooner if acne flares or not doing well with current treatment. documented in this encounter Progress Notes * Dilma Platt MD - 11/20/2017 10:13 AM CDT Attending Physician's Note Resident's assessment and care plan reviewed; patient interviewed and examined. I agree with the history of present illness, physical exam, and assessment and plan as documented by the Resident todaywiththe following annotations/corrections: History of present illness/Physical exam: Acne doing well. Occasional lesions. Assessment and plan: 1. AV, doing well -continue BP wash, tretinoin and E-mycin solution 2. Labial melanotic macule, stable -reassurance Dilma Platt MD * Vinicio Orellana MD - 11/20/2017 9:49 AM CDT Chief Complaint Patient presents with ??? Follow-up Acne. No improvement. ??? Lesions left lower lip HPI: Meredith Frost a 36 y.o. female presents for follow up of acne. Patient was last seen on 05/22/17 Concerns: Notes acne is well controlled, with occasional breakouts with few lesions when she does have a minor flare. Had a couple of lesions break out on her left forehead a few days ago. Happy withher control and would like to continue treatment. Her condition is stable Current treatment: - erythromycin (A/T/S) 2 % Solution qod - Benzoyl Peroxide 10 % Liquid qd - Tretinoin 0.05% cream qod Side effects of treatment: No dryness, irritation from topicals 2) Has not noticed any changes to her melanotic labial macule on L lower mucosal lip, but wanted lesion evaluated to make sure we thought it looked ok. PE: No acute distress. Mood clear/affect appropriate. Alert and oriented. Mucous membranes moist. Sclera anicteric. Visible skin exam was conducted to include the scalp, face, lips/teeth, lids/conjunctiva, ears, neck, right and left hands and forearms and was normal with the following exceptions: - closed comedone and pink crusted papule on the L forehead - no acneiform lesions on the rest of the face - dark brown pigmented macule on L lower mucosal lip; unchanged compared to photo from May 2017 A/P: Meredith was seen today for follow-up [...] the last visit - Benign, reassurance provided RTC in 1 year, sooner if acne flares or not controlled Vinicio Orellana MD Dermatology Resident, PGY-4 documented in this encounter Plan of Treatment Upcoming Encounters Date Type Department Care Team (Late st Contact Info) Description 04/04/2024 8:30 AM ACCOUNT LIAISON Office Visit [facility]erm[facility]ology [address] [place] [address], [place] [phone] Marlys Zaragoza MD [address] [place] [address] [place] [phone] 09/03/2024 9:00 AM CDT Office Visit [facility] Neu[facility] [address] [place] [address], [place] [phone] Melissa Crook, LISETTE-BAGGER AND STOCK HANDLER HELPER [address] [place] [phone] documented as of this encounter Visit Diagnoses Diagnosis Acne vulgaris- Primary Other acne Labial melanotic macule Other dyschromia documented in this encounter Care Teams Edge Trimming Machine Operator Relationship Specialty Start Date End Date Unknown, Provider PCP - General 07/18/17 01/13/18 documented as of this encounter
--- OUTSIDE RECORDS SUMMARY | 2024-03-22 16:40 | XMS_ITS | Encounter Summary ---
Author Organization [facility] Health Address [address] [facility] [place] [address] Care Team Providers Care Licensed Chemical Spray Technician Name Role Phone Unknown, Provider Primary Care Provider Unavaila ble Reason for Visit * Reason Onset Date Comments MEDICATION REFILL 12/10/2017 Encounter Details Date Type Department Care Team (Late Contact Info) Description 12/10/2017 Refill [facility] [address] [place] [address] Alesia Vazquez, FIELD SALES MANAGER-[address] [place] [phone] MEDICATION REFILL Social History Tobacco Use Types [...] (Late Contact Info) Description 04/04/2024 8:30 AM PEWTER FABRICATOR Office Visit [facility] [address] [place] [phone] Marlys Zaragoza MD [address] [facility] 3L [place] [address] 09/03/2024 9:00 AM CDT Office Visit [facility] [address] [facility], [place] [address] Melissa Crook, LISETTE-AUTOMOBILE DESIGNER [address] [place] [phone] documented as of this encounter Visit Diagnoses [...] movements documented in this encounter Care Teams Licensed Chemical Spray Technician Relationship Specialty Start Date End Date Unknown, Provider PCP - General 07/18/17 01/13/18 documented as of this encounter
--- OUTSIDE RECORDS SUMMARY | 2024-03-22 16:40 | XMS_ITS | Encounter Summary ---
Author Organization [facility] Health Address [address] [facility] [place] [address] Care Team Providers Care Crossbar Frame Wirer Name Role Phone Unknown, Provider Primary Care Provider Unavaila ble Encounter Details Date Type Department Care Team (Late Contact Info) Description 10/25/2017 Orders Only [facility] [place] [address] [place] [address] Jenni Campbell, PharmD [address] [place] [address] Social History Tobacco Use Types Packs/Day Years [...] (Late Contact Info) Description 04/04/2024 8:30 AM NATUROPATHIC ONCOLOGY PROVIDER Office Visit [facility] - Dermatology [address] [place] [address], [place] [phone] Marlys Zaragoza MD [address] [place] [address] 3 [place] [phone] 09/03/2024 9:00 AM CDT Office Visit [facility] Neu[facility] [address] [place] [address] Melissa Crook APRN-COMMUNICATIONS EXECUTIVE [address] [place] [phone] documented as of this encounter Visit Diagnoses Not on filedocumented in this encounter Care Teams Crossbar Frame Wirer Relationship Specialty Start Date End Date Unknown, Provider PCP - General 07/18/17 01/13/18 documented as of this encounter
--- OUTSIDE RECORDS SUMMARY | 2024-03-22 16:40 | XMS_ITS | Encounter Summary ---
Author Organization [facility] Health Address [address] [facility] [place] [address] Care Team Providers Care Hand Fur Cleaner Name Role Phone Unknown, Provider Primary Care Provider Unavaila ble Reason for Visit * Oncology Prior Authorization (Routine) - Closed Specialty Diagnoses / Procedures Referred By Nicole shipley Referred To Contact Diagnoses Multiple sclerosis (HCC) Procedures [place] INJ OCRELIZUMAB 1MG OCREVUS Jenni Campbell, PharmD [address] [place] [address] [facility] [address] [place] [address] Referral ID Status Reason Start Date Expiration Date Visits Re quested Visits Authorized [id number] Closed 10/25/2017 04/23/2018 99 99 Encounter Details Date Type Department Care Team (Late st Contact Info) Description 10/26/2017 8:30 AM CDT Office Visit [facility] [place] [address] [place] [address] Multiple sclerosis (HCC) (Primary Dx) Social History [...] Sign Reading Time Taken Comments Blood Pressure 106/68 10/26/2017 8:32 AM CDT Pulse 90 10/26/2017 8:32 AM CDT Temperature 36.7 ??C (98.1 ??F) 10/26/2017 8:32 AM CD T Respiratory Rate 16 10/26/2017 8:32 AM CDT Oxygen Saturation - - Inhaled Oxygen Concentration - - Weight 68.9 kg (151 lb 12.8 oz) 10/26/2017 8:32 AM CDT Height 165.1 cm (5' 5 ) 10/26/2017 8:32 AM CDT Body Mass Index 25.26 10/26/2017 8:32 AM CDT documented in this encounter Progress Notes * Cee Gamez RN - 10/26/2017 1:56 PM CDT SEE FLOWSHEET/MAR documented in this encounter Plan of Treatment Upcoming Encounters Date Type Department Care Team (Late st Contact Info) Description 04/04/2024 8:30 AM DYE HOUSE WHEEL OPERATOR [facility] [address] [place] [address], [place] [phone] Marlys Zaragoza MD [address] [place] [address] 3 [place] [phone] 09/03/2024 9:00 AM CDT Office Visit [facility] - Neurology [address] [place] [phone] Melissa Crook APRN-MOTORCYCLE ENGINE ASSEMBLER [address] [place] [phone] documented as of this encounter Visit Diagnoses Diagnosis Multiple sclerosis (HCC)- Primary Multiple sclerosis documented in this encounter Administered Medications Inactive Administered Medications - up to 3 most recent administrations Medication Order MAR Action Action Date Dose Rate Site acetaminophen (TYLENOL) tablet 650 mg 650 mg, Oral, ONCE, 1 dose, On Sun10/26/17 at 0845, Maximum allowable Acetaminophen amount = 4 Grams (4000 mg) / 24 hours. $ Given 10/26/2017 8:42 AM CDT 650 mg diphenhydrAMINE (BENADRYL) capsule 50 mg 50 mg, Oral, ONCE, 1 dose, On Sun10/26/17 at 0845, Use IV if patient not tolerating PO $ Given 10/26/2017 8:42 AM CDT 50 mg methylPREDNISolone sod succ (SOLU-Medrol) injection 125 mg 125 mg, Intravenous, ONCE, 1 dose, On Sun10/26/17 at 0845 $ Given 10/26/2017 8:43 AM CDT 125 mg ocrelizumab (OCREVUS) 600 mg in 0.9% NaCl 520 mL infusion 600 mg, Intravenous, ONCE, 1 dose, On Sun10/26/17 at 0845, Start at 40 mL/hr and increase by 40 mL/hr every 30 minutes to a maximum of 200 mL/hr. Observe patient for 1 hour post infusion $ New Bag/Syringe 10/26/2017 9:10 AM CDT 600 mg documented in this encounter Care Teams Hand Fur Cleaner Relationship Specialty Start Date End Date Unknown, Provider PCP - General 07/18/17 01/13/18 documented as of this encounter
--- OUTSIDE RECORDS SUMMARY | 2024-03-22 16:40 | XMS_ITS | Encounter Summary ---
Author Organization [facility] Health Address [address] [facility] [place] [address] Care Team Providers Care Retail Sales Associate Bilingual Name Role Phone Unknown, Provider Primary Care Provider Unavaila ble Encounter Details Date Type Department Care Team (Late Contact Info) Description 09/07/2017 Orders Only [facility] [address] [place] [address] Devan Renee MD [address] [place] [address] [place] [phone] High risk medication use; Seizure (HCC); Vitamin D deficiency; MS (multiple sclerosis) (HCC) Social History Tobacco [...] (Late Contact Info) Description 04/04/2024 8:30 AM SOFT TOP INSTALLER Office Visit [facility] - Dermatology [address] [place] [phone] Marlys Zaragoza MD [address] [facility] 3L [place] [phone] 09/03/2024 9:00 AM CDT Office Visit [facility] - [facility], [place] [phone] Melissa Crook APRN-BRAIDED RUG MAKER [address] [place] [phone] documented as of this encounter Visit Diagnoses Diagnosis High risk medication use Encounter for long-term (current) use of other medications Seizure (HCC) Other convulsions Vitamin D deficiency MS (multiple sclerosis) (HCC) Multiple sclerosis documented in this encounter Care Teams Retail Sales Associate Bilingual Relationship Specialty Start Date End Date Unknown, Provider PCP - General 07/18/17 01/13/18 documented as of this encounter
--- OUTSIDE RECORDS SUMMARY | 2024-03-22 16:40 | XMS_ITS | Encounter Summary ---
Author Organization [facility] Health Address [address] [facility] [place] [address] Care Team Providers Care Nut Roaster Name Role Phone Michael Palm MD Primary Care Provider [phone] Encounter Details Date Type Department Care Team (Latest Contact Info) Description 05/26/2016 Hospital Outpatient Visit Historic [facility] [address] [place] [phone] Devan Renee MD [address] [place] [address] 1L [place] [phone] Discharge Disposition: Home or Self Care Social [...] st Contact Info) Description 04/04/2024 8:30 AM ANALYTIC PROGRAMMER Office Visit [facility] [address] [facility], [place] [phone] Marlys Zaragoza MD [facility] 3L [place] [phone] 09/03/2024 9:00 AM CDT Office Visit [facility] - [facility] [address] [facility] [place] [phone] Melissa Crook APRN-GLUE REEL OPERATOR [address] [place] [phone] documented as of this encounter Visit Diagnoses Not on filedocumented in this encounter Care Teams Nut Roaster Relationship Specialty Start Date End Date Michael Palm MD [address] [place] [address] [address] [place] [address] PCP - General Internal Medicine 01/31/16 06/25/17 documented as of this encounter
--- OUTSIDE RECORDS SUMMARY | 2024-03-22 16:40 | XMS_ITS | Encounter Summary ---
Author Organization [facility] Health Address [address] [facility] [place] [address] Care Team Providers Care Business Reporter Name Role Phone Unknown, Provider Primary Care Provider Unavaila ble Reason for Visit * Reason Comments Botox Encounter Details Date Type Department Care Team (Latest Contact Info) Description 10/17/2017 10:40 AM CDT Procedure visit [facility] [address] [place] [address] Mckayla Haywood MD [address] [phone] Intractable chronic 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 without [...] Sign Reading Time Taken Comments Blood Pressure 126/75 10/17/2017 11:13 AM CDT Pulse 92 10/17/2017 11:13 AM CDT Temperature 36.7 ??C (98 ??F) 10/17/2017 11:13 AM CDT Respiratory Rate - - Oxygen Saturation - - Inhaled Oxygen Concentration - - Weight 69.9 kg (154 lb) 10/17/2017 11:13 AM CDT Height 165.1 cm (5' 5 ) 10/17/2017 11:13 AM CDT Body Mass Index 25.63 10/17/2017 11:13 AM CDT documented in this encounter Progress Notes * Mckayla Haywood MD - 10/17/2017 11:48 AM CDT Here for botox for chronic migraine. Current Outpatient Prescriptions Medication Sig Dispense Refill ??? Ocrelizumab (OCREVUS IV) 600 mg by Intravenous route Reasons: every 6 months ??? baclofen (LIORESAL) 10 MG tablet Take 1 tablet by mouth 2 times daily May cause drowsiness. 60 tablet 11 ??? erythromycin (ERYDERM) 2 % solution GRACY THIN LAYER EXT TO FACE 1 TO 2 XD 2 ??? benztropine (COGENTIN) 0.5 MG tablet Take 1 tablet by mouth 2 times daily 60 tablet 2 ??? ABILIFY MAINTENA 300 MG injection Inject 1.5 mL into muscle every 28 days 1 Each 5 ??? hydrOXYzine hcl (ATARAX) 25 MG tablet Take 1 tablet by mouth 2 times daily as needed 60 tablet 3 ??? SUMAtriptan (IMITREX) 50 MG tablet Take 1 tablet by mouth once as needed for Migraine (take onewith headache, can repeat in 2 hours, no more than 2 in 24 hours.) 9 tablet 5 ??? onabotulinumtoxin A (BOTOX) 100 UNITS injection Inject 200 Units into muscle Every 90 days ??? calcium carbonate (TUMS) 500 MG chew tablet Take 500 mg by mouth as needed for GI Upset ??? ibuprofen (MOTRIN) 600 MG tablet Take 1 tablet by mouth every 6 hours as needed 1 ??? raNITIdine (ZANTAC) 150 MG tablet Take 1 tablet by mouth 2 times daily as needed ??? tretinoin (RETIN-A) 0.05 % cream ??? zonisamide (ZONEGRAN) 100 MG capsule Take 400 mg by mouth at bedtime ??? albuterol HFA (PROVENTIL;VENTOLIN;PROAIR) 108 (90 BASE) MCG/ACT inhaler Inhale 2 Puffs by mouthevery 6 hours ??? fluticasone propionate (FLONASE) 50 MCG/ACT nasal spray [place] 1 [place] into the nose ??? budesonide-formoterol (SYMBICORT) 160-4.5 MCG/ACT inhaler ??? vitamin D3 (CHOLECACIFEROL) 5000 UNITS Take 1 tablet by mouth once daily 30 tablet 5 Current Facility-Administered Medications Medication Dose Route Frequency Provider Last Rate Last Dose ??? onabotulinumtoxin A (BOTOX) injection 155 Units 155 Units Injection Once Mckayla Haywood MD BP 126/75 Pulse 92 Temp 98 ??F (36.7 ??C) (Oral) Ht 5' 5 (1.651 m) Wt 154 lb (69.9 kg) BMI 25.63 kg/m2 documented in this encounter Procedure Notes * Mckayla Haywood MD - 10/17/2017 11:49 AM CDTAssociated Order(s): PROC INJECTION - BOTOX [...] aura, intractable, with status migrainosus Procedure code: 23633 History: Baseline number of headaches per month: 10-24 Current headaches per month: 5 Number of headache hours per day baseline: 12 Number of headache days per hour current: 4 Associated symptoms baseline: Moderate to severe pain, nausea, vomiting, photophobia, phonophobia. Associated symptoms current: Moderate pain, nausea, photophobia, phonophobia. The patient has had significant benefit from Botox with a 50% reduction in headache frequency and severity. Current migraine prophylactic medications: zonisamide Current migraine abortive treatments: sumatriptan Date of last injection: 07/18/2017 Duration of benefit: 3 months Side effects [...] Contact Info) Description 04/04/2024 8:30 AM PAPER CONE MACHINE TENDER Office Visit [facility] - Dermatology [address] [place] [address], [place] [address] Marlys Zaragoza MD [address] [place] [address] 3 [place] [address] 09/03/2024 9:00 AM CDT Office Visit [facility] - Neurology [address] [facility], [facility] [place] [phone] MackMelissa schuster, EQUIPMENT ENGINEERING TECHNICIAN-CLINICAL BUSINESS MANAGER [address] [place] [phone] documented as of this encounter Procedures Procedure Name Priority Date/Time Associated Diagnosis Comments TX CHEMODENERV MUSC MIGRAINE Routine 10/17/2017 2:45 PM CDT Intractable chronic 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 without status migrainosus documented in this encounter Results * TX CHEMODENERV MUSC MIGRAINE (10/17/2017 2:45 PM CDT) [...] intractable, with status migrainosus ?? Procedure code: 49166 History: Baseline number of headaches per month: [...] Dose Rate Site onabotulinumtoxin A (BOTOX) injection 155 Units 155 Units, Injection, ONCE, 1 dose, On Sun10/17/17 at 1215 $ Given 10/17/2017 2:44 PM CDT 155 Units documented in this encounter Care Teams Business Reporter Relationship Specialty Start Date End Date Unknown, Provider PCP - General 07/18/17 01/13/18 documented as of this encounter
--- OUTSIDE RECORDS SUMMARY | 2024-03-22 16:40 | XMS_ITS | Encounter Summary ---
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 Office Visit [facility] - Dermatology [address] [place] [address], [place] [phone] Marlys Zaragoza MD [address] [place] [address] 3 [place] [phone] 09/03/2024 9:00 AM CDT Office Visit [facility] - Neurology [address] [place] [address], [place] [address] Melissa Crook, TMD TEACHER ASSISTANT-MOTORCYCLE SUBASSEMBLY REPAIRER [address] [place] [address] documented as of this encounter Procedures Procedure Name Priority Date/Time Associated Diagnosis Comments GLUCOSE ACCUCHECK Routine 10/13/2016 5:2 5 PM CDT GLUCOSE ACCUCHECK Routine 10/13/2016 12: 09 PM CDT GLUCOSE ACCUCHECK Routine 10/13/2016 7:4 3 AM CDT GLUCOSE ACCUCHECK Routine 10/13/2016 4:1 5 AM CDT GLUCOSE ACCUCHECK Routine 10/13/2016 12: 10 AM CDT GLUCOSE ACCUCHECK Routine 10/12/2016 8:2 1 PM CDT GLUCOSE ACCUCHECK Routine 10/12/2016 4:5 9 PM CDT GLUCOSE ACCUCHECK Routine 10/12/2016 11: 58 AM CDT GLUCOSE ACCUCHECK Routine 10/12/2016 7:1 5 AM CDT GLUCOSE ACCUCHECK Routine 10/12/2016 2:0 2 AM CDT GLUCOSE ACCUCHECK Routine 10/11/2016 9:2 5 PM CDT GLUCOSE ACCUCHECK Routine 10/11/2016 5:3 2 PM CDT GLUCOSE ACCUCHECK Routine 10/11/2016 12: 13 PM CDT GLUCOSE ACCUCHECK Routine 10/11/2016 8:1 1 AM CDT MRI ORBITS OR FACE WWO CONTRAST STAT 10/10/2016 9:20 PM CDT MRI BRAIN WWO CONTRAST STAT 10/10/2016 9:20 PM CDT documented in this encounter Results * (ABNORMAL) GLUCOSE ACCUCHECK (10/13/2016 5:25 PM CDT) Glucose, Fingerstick 183(H) 70-115mg/d L mg/dL [facility] ([facility]) Comment:[employer] Professor: KO LOFTONMICHA 10/13/2016 5:25 PM CDT Bere Denton MD LAB - CHEMISTRY MAGDALENA DOBBS Performing Organization Address [facility] Co de Phone Number [facility] ([facility]) * (ABNORMAL) GLUCOSE ACCUCHECK (10/13/2016 12:09 PM CDT) Glucose, Fingerstick 153(H) 70-115mg/d L mg/dL [facility] ([facility]) Comment:[employer] Professor: KO CARROLL 10/13/2016 12:0 9 PM CDT Bere Denton MD LAB - CHEMISTRY MAGDALENA DOBBS Performing Organization Address [facility]/ZIP Co de Phone Number [facility] ([facility]) * GLUCOSE ACCUCHECK (10/13/2016 7:43 AM CDT) Glucose, Fingerstick 114 70-115mg/d L mg/dL [facility] ([facility]) Comment:[employer] Professor: KO CARROLL 10/13/2016 7:43 AM CDT Bere Denton MD LAB - CHEMISTRY MAGDALENA DOBBS Performing Organization Address [facility] Co de Phone Number [facility] ([facility]) * (ABNORMAL) GLUCOSE ACCUCHECK (10/13/2016 4:15 AM CDT) Glucose, Fingerstick 135(H) 70-115mg/d L mg/dL [facility] (BEAKER) Comment:[employer] Professor: HEMAL ROYAL 10/13/2016 4:15 AM CDT Bere Denton MD LAB - CHEMISTRY MAGDALENA DOBBS [facility] RALS (BEAKER) * (ABNORMAL) GLUCOSE ACCUCHECK (10/13/2016 12:10 AM CDT) Glucose, Fingerstick 135(H) 70-115mg/d L mg/dL [facility] RALS (BEAKER) Comment:[employer] Professor: HEMAL ROYAL 10/13/2016 12:1 0 AM CDT Bere Denton MD LAB - CHEMISTRY MAGDALENA DOBBS Performing Organization Address City/[facility]/ZIP Co de Phone Number [facility] RALS (BEAKER) * (ABNORMAL) GLUCOSE ACCUCHECK (10/12/2016 8:21 PM CDT) Glucose, Fingerstick 192(H) 70-115mg/d L mg/dL [facility] RALS (BEAKER) Comment:[employer] Professor: REGINAJENIFFER JULIO GERARDO 10/12/2016 8:21 PM CDT Bere Denton MD LAB - CHEMISTRY MAGDALENA DOBBS [facility] RALS (BEAKER) * GLUCOSE ACCUCHECK (10/12/2016 4:59 PM CDT) Glucose, Fingerstick 102 70-115mg/d L mg/dL [facility] RALS (BEAKER) Comment:[employer] Professor: LEOLA ZHANG 10/12/2016 4:59 PM CDT Bere Denton MD LAB - CHEMISTRY MAGDALENA DOBBS [facility] RALS (BEAKER) * (ABNORMAL) GLUCOSE ACCUCHECK (10/12/2016 11:58 AM CDT) Glucose, Fingerstick 134(H) 70-115mg/d L mg/dL [facility] ([facility]) Comment:[employer] Professor: LEOLA ZHANG 10/12/2016 11:5 8 AM CDT Bere Denton MD LAB - CHEMISTRY ORDGustavo DOBBS [facility] ([facility]) * GLUCOSE ACCUCHECK (10/12/2016 7:15 AM CDT) Glucose, Fingerstick 99 70-115mg/d L mg/dL [facility] ([facility]) Comment:[employer] Professor: LEOLA HAYWOODIS 10/12/2016 7:15 AM CDT Bere Denton MD LAB - CHEMISTRY ORDGustavo DOBBS Performing Organization Address City/[facility]/ZIP Co de Phone Number [facility] ([facility]) * (ABNORMAL) GLUCOSE ACCUCHECK (10/12/2016 2:02 AM CDT) Glucose, Fingerstick 118(H) 70-115mg/d L mg/dL [facility] ([facility]) Comment:[employer] Professor: ZACARIAS GLORIA 10/12/2016 2:02 AM CDT Bere Denton MD LAB - CHEMISTRY ORDGustavo DOBBS [facility] ([facility]) * (ABNORMAL) GLUCOSE ACCUCHECK (10/11/2016 9:25 PM CDT) Glucose, Fingerstick 154(H) 70-115mg/d L mg/dL [facility] ([facility]) Comment: RN notified name is ANABEL [employer] Professor: ZACARIAS ??MARISA 10/11/2016 9:25 PM CDT Bere Denton MD LAB - CHEMISTRY MAGDALENA DOBBS [facility] ([facility]) * (ABNORMAL) GLUCOSE ACCUCHECK (10/11/2016 5:32 PM CDT) Glucose, Fingerstick 173(H) 70-115mg/d L mg/dL [facility] Comment:[employer] Professor: MELVI COWAN 10/11/2016 5:32 PM CDT Bere Denton MD LAB - CHEMISTRY MAGDALENA DOBBS Performing Organization Address [facility] Co de Phone Number [facility] * (ABNORMAL) GLUCOSE ACCUCHECK (10/11/2016 12:13 PM CDT) Glucose, Fingerstick 136(H) 70-115mg/d L mg/dL [facility] (BEAKER) Comment:[employer] Professor: MELVI JAELYN CHAPO 10/11/2016 12:1 3 PM CDT Bere Denton MD LAB - CHEMISTRY MAGDAL[place] DOBBS Performing Organization Address City/[facility]/ZIP Co de Phone Number [facility] * (ABNORMAL) GLUCOSE ACCUCHECK (10/11/2016 8:11 AM CDT) Glucose, Fingerstick 120(H) 70-115mg/d L mg/dL [facility] (BEAKER) Comment:[employer] Professor: JESSIKA OLIVO 10/11/2016 8:11 AM CDT Bere Denton MD LAB - CHEMISTRY MAGDALENA DOBBS [facility] * MRI BRAIN WWO CONTRAST (10/10/2016 9:20 PM CDT) Anatomical Region Laterality Modality Head [...] on 10/11/2016 8:15 AM . I, Dr. MARIAELENA POWER M.D. have personally reviewed and interpreted this examination/study. This report was electronically signed by MARIAELENA POWER M.D. ??on 10/11/2016 8:47 AM . Narrative [...] is mild paranasal sinus disease. Procedure Note Mariaelena Power MD - 06/15/2017 EXAMINATION: 1. Magnetic resonance [...] Luis Paul M.D. on 10/11/2016 8:15AM . Dr. MARIAELENA Ahuja M.D. have personally reviewed and interpreted thisexamination/study. This report was electronically signed by MARIAELENA POWER M.D. on 10/11/20168:47 AM . Jad Reece MD MR ORDERABLES * MRI ORBITS OR FACE WWO CONTRAST (10/10/2016 9:20 PM CDT) Anatomical Region Laterality Modality Head [...] M.D. ?? on 10/11/2016 8:[address] MARIAELENA Ahuja M.D. have personally reviewed and interpreted this examination/study. This report was electronically signed by MARIAELENA POWER M.D. ??on 10/11/2016 8:47 AM . Narrative [...] is mild paranasal sinus disease. Procedure Note Mariaelena Power MD - 06/15/2017 EXAMINATION: 1. Magnetic resonance [...] M.D. on 10/11/2016 8:15AM . I, Dr. MARIAELENA POWER M.D. have personally reviewed and interpreted thisexamination/study. This report was electronically signed by MARIAELENA POWER M.D. on 10/11/20168:47 AM . Jad Reece MD MR ORDERABLES documented in this encounter Visit Diagnoses Not on filedocumented in this encounter Care Teams Casing Operator Relationship Specialty Start Date End Date Michael Palm MD [address] [place] [address] [address] [place] [address] PCP - General Internal Medicine 01/31/16 06/25/17 documented as of this encounter
--- OUTSIDE RECORDS SUMMARY | 2024-03-22 16:40 | XMS_ITS | Encounter Summary ---
Author Organization [facility] Health Address [address] [place] [address] Care Team Providers Care Package Reinspector Name Role Phone Michael Palm MD Primary Care Provider [phone] Encounter Details Date Type Department Care Team (Latest Contact Info) Description 05/02/2015 Hospital Outpatient Visit [facility] [address] [place] [address] Discharge Disposition: Home or Self Care Social [...] st Contact Info) Description 04/04/2024 8:30 AM ZANJERO Office Visit [facility] - Dermatology [address] [place] [address], [place] [id number] Marlys Zaragoza MD [address] [place] [address] [address] [place] [id number] 09/03/2024 9:00 AM CDT Office Visit [facility] - Neurology [address] [place] [address], [facility] [place] [address] Melissa Crook, ADDICTION SPECIALIST-WATCH ASSEMBLY INSPECTOR [address] [place] [address] documented as of this encounter Procedures Procedure Name Priority Date/Time Associated Diagnosis Comments MRI THORACIC SPINE WWO CONT Routine 05/03/2015 12:37 AM ZANJERO MRI CERVICAL SPINE WWO CONT Routine 05/03/2015 12:37 AM ZANJERO MRI BRAIN WWO CONTRAST Routine 05/03/2015 12:37 AM ZANJERO documented in this encounter Results * MRI CERVICAL SPINE WWO CONT (05/03/2015 12:37 AM ZANJERO) Anatomical Region Laterality Modality Spine Other Impressions 05/03/2015 9:25 AM ZANJERO IMPRESSION: 1. No evidence of disease progression or active demyelination in the brain or thoracic spine. 2. Incomplete evaluation of the cervical spine due to motion artifact obscuring the spinal cord. Dr. Cordero discussed preliminary findings with Dr. Liu at 1320 hours on 05/03/2015. This report was approved ??by Devan Darden M.D. ?? on 05/03/2015 9:18 AM . I, Dr. MARIAELENA POWER M.D. have personally reviewed and interpreted this examination/study. This report was electronically signed by MARIAELENA POWER M.D. ??on 05/03/2015 9:25 AM . Narrative 05/03/2015 9:25 AM ZANJERO EXAMINATION: 1. Magnetic resonance imaging (MRI) of the brain without and with contrast 2. MRI of the cervical and thoracic spine without and with contrast HISTORY: Multiple sclerosis with generalized weakness and paresthesias involving the fingers and toes. TECHNIQUE: MRI of the brain and cervical and thoracic spine was performed prior to and following the uneventful administration of 7 mL Gadavist intravenous gadolinium contrast according to a demyelinating disease protocol. Image quality is degraded by motion artifact on the examination of the cervical spine. FINDINGS: Comparison is made with a brain MR from 06/25/2014 and spine MR from 10/17/2013. Brain: Numerous T2 hyperintense lesions scattered throughout the bilateral cerebral hemispheric white matter, cerebellar hemispheres, and brainstem are not significantly changed since the prior exam and are consistent with demyelinating plaques of multiple sclerosis. Some of these lesions demonstrate corresponding T1 hypointensity indicative of myelin vacuolization, also unchanged. No evidence of acute or chronic hemorrhage is identified. No evidence of acute cerebral infarction is seen. There is mild cerebral volume loss with associated ex vacuo ventricular dilatation. No mass effect or midline shift is seen. ??No enhancing lesions are identified. FLAIR hyperintensity along the undersurface of the corpus callosum appears unchanged. The sella appears normal. The visualized portions of the orbits, paranasal sinuses, and mastoids appear normal. Normal flow voids are demonstrated in the carotid arteries and basilar artery. The calvarium appears normal. Cervical spine: The alignment is normal. Vertebral bodies are normal in height without evidence of compression fractures. Marrow signal intensity is normal. The spinal cord is obscured by motion. The intervertebral discs appear normal. No central canal stenosis is seen. The facets appear normal. The uncovertebral joints appear normal. No neural foraminal stenosis is seen. No soft tissue abnormality is identified. Thoracic spine: The alignment is normal. Vertebral bodies are normal in height without evidence of compression fractures. Marrow signal intensity is normal. There are areas of focal intramedullary T2 hyperintensity likely representing demyelinating plaques in the thoracic cord at the levels of T2, T3, T5-6, T6, T7-8, T8, T9-10, and T10 which appear unprogressed accounting for differences in technique. No abnormal enhancement is identified. There is mild disc bulge at T8-9. No central canal stenosis is seen. The facets appear normal. No neural foraminal stenosis is seen. No soft tissue abnormality is identified. Procedure Note Mariaelena Power MD - 06/16/2017 EXAMINATION: 1. Magnetic resonance imaging (MRI) of the brain without and withcontrast 2. MRI of the cervical and thoracic spine without and with contrast HISTORY: Multiple sclerosis with generalized weakness and paresthesiasinvolving the fingers and toes. TECHNIQUE: MRI of the brain and cervical and thoracic spine was performedprior to and following the uneventful administration of 7 mL Gadavistintravenous gadolinium contrast according to a demyelinating diseaseprotocol. Image quality is degraded by motion artifact on the examination of the cervical spine. FINDINGS: Comparison is made with a brain MR from 06/25/2014 and spine MRfrom 10/17/2013. Brain: Numerous T2 hyperintense lesions scattered throughout the bilateralcerebral hemispheric white matter, cerebellar hemispheres, and brainstemare not significantly changed since the prior exam and are consistent withdemyelinating plaques of multiple sclerosis. Some of these lesions demonstrate corresponding [id number] indicative of myelin vacuolization, also unchanged. Noevidence of acute or chronic hemorrhage is identified. No evidence ofacute cerebral infarction is seen. There is mild cerebral volume loss with associated ex vacuo ventricular dilatation. Nomass effect or midline shift is seen. No enhancing lesions areidentified. FLAIR hyperintensity along the undersurface of the corpuscallosum appears unchanged. The sella appears normal. The visualized portions of the orbits, paranasal sinuses, and mastoidsappear normal. Normal flow voids are demonstrated in the carotid arteriesand basilar artery. The calvarium appears normal. Cervical spine: The alignment is normal. Vertebral bodies are normal in height withoutevidence of compression fractures. Marrow signal intensity is normal. Thespinal cord is obscured by motion. The intervertebral discs appear normal. No central canal stenosis is seen.The facets appear normal. The uncovertebral joints appear normal. Noneural foraminal stenosis is seen. No soft tissue abnormality isidentified. Thoracic spine: The alignment is normal. Vertebral bodies are normal in height withoutevidence of compression fractures. Marrow signal intensity is normal.There are areas of focal intramedullary T2 hyperintensity likelyrepresenting demyelinating plaques in the thoracic cord at the levels of T2, T3, T5-6, T6, T7-8, T8, T9-10, and U91bwxly appear unprogressed accounting for differences in technique. Noabnormal enhancement is identified. There is mild disc bulge at T8-9. No central canal stenosis is seen. Thefacets appear normal. No neural foraminal stenosis is seen. No soft tissueabnormality is identified. IMPRESSION IMPRESSION: 1. No evidence of disease progression or active demyelination in the brainor thoracic spine. 2. Incomplete evaluation of the cervical spine due to motion artifactobscuring the spinal cord. Dr. Cordero discussed preliminary findings with Dr. Liu at 1320hours on 05/03/2015. This report was approved by Devan Darden M.D. on 05/03/2015 9:18AM . I, Dr. MARIAELENA POWER M.D. have personally reviewed and interpreted thisexamination/study. This report was electronically signed by MARIAELENA POWER M.D. on 05/03/20159:25 AM . Jad Reece MD MR ORDERABLES * MRI THORACIC SPINE WWO CONT (05/03/2015 12:37 AM ZANJERO) Anatomical Region Laterality Modality Spine Other Impressions 05/03/2015 9:25 AM ZANJERO IMPRESSION: 1. No evidence of disease progression or active demyelination in the brain or thoracic spine. 2. Incomplete evaluation of the cervical spine due to motion artifact obscuring the spinal cord. Dr. Cordero discussed preliminary findings with Dr. Liu at 1320 hours on 05/03/2015. This report was approved ??by Devan Darden M.D. ?? on 05/03/2015 9:[address] MARIAELENA Ahuja M.D. have personally reviewed and interpreted this examination/study. This report was electronically signed by MARIAELENA POWER M.D. ??on 05/03/2015 9:25 AM . Narrative 05/03/2015 9:25 AM ZANJERO EXAMINATION: 1. Magnetic resonance imaging (MRI) of the brain without and with contrast 2. MRI of the cervical and thoracic spine without and with contrast HISTORY: Multiple sclerosis with generalized weakness and paresthesias involving the fingers and toes. TECHNIQUE: MRI of the brain and cervical and thoracic spine was performed prior to and following the uneventful administration of 7 mL Gadavist intravenous gadolinium contrast according to a demyelinating disease protocol. Image quality is degraded by motion artifact on the examination of the cervical spine. FINDINGS: Comparison is made with a brain MR from 06/25/2014 and spine MR from 10/17/2013. Brain: Numerous T2 hyperintense lesions scattered throughout the bilateral cerebral hemispheric white matter, cerebellar hemispheres, and brainstem are not significantly changed since the prior exam and are consistent with demyelinating plaques of multiple sclerosis. Some of these lesions demonstrate corresponding T1 hypointensity indicative of myelin vacuolization, also unchanged. No evidence of acute or chronic hemorrhage is identified. No evidence of acute cerebral infarction is seen. There is mild cerebral volume loss with associated ex vacuo ventricular dilatation. No mass effect or midline shift is seen. ??No enhancing lesions are identified. FLAIR hyperintensity along the undersurface of the corpus callosum appears unchanged. The sella appears normal. The visualized portions of the orbits, paranasal sinuses, and mastoids appear normal. Normal flow voids are demonstrated in the carotid arteries and basilar artery. The calvarium appears normal. Cervical spine: The alignment is normal. Vertebral bodies are normal in height without evidence of compression fractures. Marrow signal intensity is normal. The spinal cord is obscured by motion. The intervertebral discs appear normal. No central canal stenosis is seen. The facets appear normal. The uncovertebral joints appear normal. No neural foraminal stenosis is seen. No soft tissue abnormality is identified. Thoracic spine: The alignment is normal. Vertebral bodies are normal in height without evidence of compression fractures. Marrow signal intensity is normal. There are areas of focal intramedullary T2 hyperintensity likely representing demyelinating plaques in the thoracic cord at the levels of T2, T3, T5-6, T6, T7-8, T8, T9-10, and T10 which appear unprogressed accounting for differences in technique. No abnormal enhancement is identified. There is mild disc bulge at T8-9. No central canal stenosis is seen. The facets appear normal. No neural foraminal stenosis is seen. No soft tissue abnormality is identified. Procedure Note Mariaelena Power MD - 06/16/2017 EXAMINATION: 1. Magnetic resonance imaging (MRI) of the brain without and withcontrast 2. MRI of the cervical and thoracic spine without and with contrast HISTORY: Multiple sclerosis with generalized weakness and paresthesiasinvolving the fingers and toes. TECHNIQUE: MRI of the brain and cervical and thoracic spine was performedprior to and following the uneventful administration of 7 mL Gadavistintravenous gadolinium contrast according to a demyelinating diseaseprotocol. Image quality is degraded by motion artifact on the examination of the cervical spine. FINDINGS: Comparison is made with a brain MR from 06/25/2014 and spine MRfrom 10/17/2013. Brain: Numerous T2 hyperintense lesions scattered throughout the bilateralcerebral hemispheric white matter, cerebellar hemispheres, and brainstemare not significantly changed since the prior exam and are consistent withdemyelinating plaques of multiple sclerosis. Some of these lesions demonstrate corresponding G2vjuzktlvzdruq indicative of myelin vacuolization, also unchanged. Noevidence of acute or chronic hemorrhage is identified. No evidence ofacute cerebral infarction is seen. There is mild cerebral volume loss with associated ex vacuo ventricular dilatation. Nomass effect or midline shift is seen. No enhancing lesions areidentified. FLAIR hyperintensity along the undersurface of the corpuscallosum appears unchanged. The sella appears normal. The visualized portions of the orbits, paranasal sinuses, and mastoidsappear normal. Normal flow voids are demonstrated in the carotid arteriesand basilar artery. The calvarium appears normal. Cervical spine: The alignment is normal. Vertebral bodies are normal in height withoutevidence of compression fractures. Marrow signal intensity is normal. Thespinal cord is obscured by motion. The intervertebral discs appear normal. No central canal stenosis is seen.The facets appear normal. The uncovertebral joints appear normal. Noneural foraminal stenosis is seen. No soft tissue abnormality isidentified. Thoracic spine: The alignment is normal. Vertebral bodies are normal in height withoutevidence of compression fractures. Marrow signal intensity is normal.There are areas of focal intramedullary T2 hyperintensity likelyrepresenting demyelinating plaques in the thoracic cord at the levels of T2, T3, T5-6, T6, T7-8, T8, T9-10, and N06psbbh appear unprogressed accounting for differences in technique. Noabnormal enhancement is identified. There is mild disc bulge at T8-9. No central canal stenosis is seen. Thefacets appear normal. No neural foraminal stenosis is seen. No soft tissueabnormality is identified. IMPRESSION IMPRESSION: 1. No evidence of disease progression or active demyelination in the brainor thoracic spine. 2. Incomplete evaluation of the cervical spine due to motion artifactobscuring the spinal cord. Dr. Cordero discussed preliminary findings with Dr. Liu at 1320hours on 05/03/2015. This report was approved by Devan Darden M.D. on 05/03/2015 9:18AM . I, Dr. MARIAELENA POWER M.D. have personally reviewed and interpreted thisexamination/study. This report was electronically signed by MARIAELENA POWER M.D. on 05/03/20159:25 AM . Jad Reece MD MR ORDERABLES * MRI BRAIN WWO CONTRAST (05/03/2015 12:37 AM ZANJERO) Anatomical Region Laterality Modality Head Other Impressions 05/03/2015 9:25 AM ZANJERO IMPRESSION: 1. No evidence of disease progression or active demyelination in the brain or thoracic spine. 2. Incomplete evaluation of the cervical spine due to motion artifact obscuring the spinal cord. Dr. Cordero discussed preliminary findings with Dr. Liu at 1320 hours on 05/03/2015. This report was approved ??by Devan Darden M.D. ?? on 05/03/2015 9:18 AM . I, Dr. MARIAELENA POWER M.D. have personally reviewed and interpreted this examination/study. This report was electronically signed by MARIAELENA POWER M.D. ??on 05/03/2015 9:25 AM . Narrative 05/03/2015 9:25 AM ZANJERO EXAMINATION: 1. Magnetic resonance imaging (MRI) of the brain without and with contrast 2. MRI of the cervical and thoracic spine without and with contrast HISTORY: Multiple sclerosis with generalized weakness and paresthesias involving the fingers and toes. TECHNIQUE: MRI of the brain and cervical and thoracic spine was performed prior to and following the uneventful administration of 7 mL Gadavist intravenous gadolinium contrast according to a demyelinating disease protocol. Image quality is degraded by motion artifact on the examination of the cervical spine. FINDINGS: Comparison is made with a brain MR from 06/25/2014 and spine MR from 10/17/2013. Brain: Numerous T2 hyperintense lesions scattered throughout the bilateral cerebral hemispheric white matter, cerebellar hemispheres, and brainstem are not significantly changed since the prior exam and are consistent with demyelinating plaques of multiple sclerosis. Some of these lesions demonstrate corresponding T1 hypointensity indicative of myelin vacuolization, also unchanged. No evidence of acute or chronic hemorrhage is identified. No evidence of acute cerebral infarction is seen. There is mild cerebral volume loss with associated ex vacuo ventricular dilatation. No mass effect or midline shift is seen. ??No enhancing lesions are identified. FLAIR hyperintensity along the undersurface of the corpus callosum appears unchanged. The sella appears normal. The visualized portions of the orbits, paranasal sinuses, and mastoids appear normal. Normal flow voids are demonstrated in the carotid arteries and basilar artery. The calvarium appears normal. Cervical spine: The alignment is normal. Vertebral bodies are normal in height without evidence of compression fractures. Marrow signal intensity is normal. The spinal cord is obscured by motion. The intervertebral discs appear normal. No central canal stenosis is seen. The facets appear normal. The uncovertebral joints appear normal. No neural foraminal stenosis is seen. No soft tissue abnormality is identified. Thoracic spine: The alignment is normal. Vertebral bodies are normal in height without evidence of compression fractures. Marrow signal intensity is normal. There are areas of focal intramedullary T2 hyperintensity likely representing demyelinating plaques in the thoracic cord at the levels of T2, T3, T5-6, T6, T7-8, T8, T9-10, and T10 which appear unprogressed accounting for differences in technique. No abnormal enhancement is identified. There is mild disc bulge at T8-9. No central canal stenosis is seen. The facets appear normal. No neural foraminal stenosis is seen. No soft tissue abnormality is identified. Procedure Note Mariaelena Power MD - 06/16/2017 EXAMINATION: 1. Magnetic resonance imaging (MRI) of the brain without and withcontrast 2. MRI of the cervical and thoracic spine without and with contrast HISTORY: Multiple sclerosis with generalized weakness and paresthesiasinvolving the fingers and toes. TECHNIQUE: MRI of the brain and cervical and thoracic spine was performedprior to and following the uneventful administration of 7 mL Gadavistintravenous gadolinium contrast according to a demyelinating diseaseprotocol. Image quality is degraded by motion artifact on the examination of the cervical spine. FINDINGS: Comparison is made with a brain MR from 06/25/2014 and spine MRfrom 10/17/2013. Brain: Numerous T2 hyperintense lesions scattered throughout the bilateralcerebral hemispheric white matter, cerebellar hemispheres, and brainstemare not significantly changed since the prior exam and are consistent withdemyelinating plaques of multiple sclerosis. Some of these lesions demonstrate corresponding [id number] indicative of myelin vacuolization, also unchanged. Noevidence of acute or chronic hemorrhage is identified. No evidence ofacute cerebral infarction is seen. There is mild cerebral volume loss with associated ex vacuo ventricular dilatation. Nomass effect or midline shift is seen. No enhancing lesions areidentified. FLAIR hyperintensity along the undersurface of the corpuscallosum appears unchanged. The sella appears normal. The visualized portions of the orbits, paranasal sinuses, and mastoidsappear normal. Normal flow voids are demonstrated in the carotid arteriesand basilar artery. The calvarium appears normal. Cervical spine: The alignment is normal. Vertebral bodies are normal in height withoutevidence of compression fractures. Marrow signal intensity is normal. Thespinal cord is obscured by motion. The intervertebral discs appear normal. No central canal stenosis is seen.The facets appear normal. The uncovertebral joints appear normal. Noneural foraminal stenosis is seen. No soft tissue abnormality isidentified. Thoracic spine: The alignment is normal. Vertebral bodies are normal in height withoutevidence of compression fractures. Marrow signal intensity is normal.There are areas of focal intramedullary T2 hyperintensity likelyrepresenting demyelinating plaques in the thoracic cord at the levels of T2, T3, T5-6, T6, T7-8, T8, T9-10, and G31jwhyb appear unprogressed accounting for differences in technique. Noabnormal enhancement is identified. There is mild disc bulge at T8-9. No central canal stenosis is seen. Thefacets appear normal. No neural foraminal stenosis is seen. No soft tissueabnormality is identified. IMPRESSION IMPRESSION: 1. No evidence of disease progression or active demyelination in the brainor thoracic spine. 2. Incomplete evaluation of the cervical spine due to motion artifactobscuring the spinal cord. Dr. Cordero discussed preliminary findings with Dr. Liu at 1320hours on 05/03/2015. This report was approved by Devan Darden M.D. on 05/03/2015 9:18AM . I, Dr. MARIAELENA POWER M.D. have personally reviewed and interpreted thisexamination/study. This report was electronically signed by MARIAELENA POWER M.D. on 05/03/20159:25 AM . Jad Reece MD MR ORDERABLES documented in this encounter Visit Diagnoses Not on filedocumented in this encounter Care Teams Package Reinspector Relationship Specialty Start Date End Date Michael Palm MD [address] [place], [place] [address], [place] [address] PCP - General Internal Medicine 01/31/16 06/25/17 documented as of this encounter
--- OUTSIDE RECORDS SUMMARY | 2024-03-22 16:40 | XMS_ITS | Encounter Summary ---
Author Organization [facility] Health Address [address] [place] [address] Care Team Providers Care Stores Laborer Name Role Phone Michael Palm MD Primary Care Provider Encounter Details Date Type Department Care Team (Late Contact Info) Description 02/21/2017 Orders Only [facility] [address] [place] [address] Devan Renee MD [address] [place] [address] [address] [place] [address] High risk medication use ; Seizure (HCC); Vitamin D deficiency; MS (multiple [...] (Late Contact Info) Description 04/04/2024 8:30 AM OCULAR CARE AIDE Office Visit [facility] - Dermatology [address] [place] [address], [place] [id number] Marlys Zaragoza MD [address] [place] [address] [address] [place] [id number] 09/03/2024 9:00 AM CDT Office Visit [facility] - Neurology [address] [facility], [place] [phone] Melissa Crook, RENAL MEDICINE PHYSICIAN-3D ANIMATOR [address] [place] [phone] documented as of this encounter Visit Diagnoses Diagnosis High risk medication use- Primary Encounter for long-term (current) use of other medications Seizure (HCC) Other convulsions Vitamin D deficiency MS (multiple sclerosis) (HCC) Multiple sclerosis documented in this encounter Care Teams Stores Laborer Relationship Specialty Start Date End Date Michael Palm MD [address] [place] [address] [address] [place] [address] PCP - General Internal Medicine 01/31/16 06/25/17 documented as of this encounter
--- OUTSIDE RECORDS SUMMARY | 2024-03-22 16:40 | XMS_ITS | Encounter Summary ---
Author Organization [facility] Health Address [address] [place] [address] Care Team Providers Care Typewriters Functional Tester Name Role Phone Michael Palm MD Primary Care Provider Encounter Details Date Type Department Care Team (Latest Contact Info) Description 12/11/2014 Hospital Outpatient Visit Historic [facility] [address] [place] [address] Simon Carcamo MD [address] [place] [id number] Discharge Disposition: Home or Self Care Social [...] st Contact Info) Description 04/04/2024 8:30 AM [employer] Office Visit [facility] - Dermatology [facility] [facility] [place] [phone] Marlys Zaragoza MD [address] [place] [address] [address] [place] [phone] 09/03/2024 9:00 AM CDT Office Visit [facility] - Neurology [address] [facility] [place] [phone] Melissa Crook, MESSENGER OFFICE-WELDING TECHNICIAN [address] [place] [address] documented as of this encounter Procedures Procedure Name Priority Date/Time Associated Diagnosis Comments COMPREHENSIVE METABOLIC PANEL Routine 12/11/2014 9:45 AM CDT CBC W AUTO DIFFERENTIAL Routine 12/11/2014 9:35 AM CDT CBC W AUTO DIFFERENTIAL Routine 12/11/2014 9:35 AM CDT documented in this encounter Results * (ABNORMAL) COMPREHENSIVE METABOLIC PANEL (12/11/2014 9:45 AM CDT) BUN 13 7 - 26 mg/dL [facility] Creatinine 0.7 0.6 - 1.2 mg/dL [facility] Sodium 140 136 - 145 mmol/L [facility] Potassium 3.8 3.5 - 4.5 mmol/L [facility] Chloride 114(H) 98 - 107 mmol/L [facility] CO2 22 22 - 29 mmol/L [facility] Glucose 104 70 - 115 mg/dL [facility] Calcium 9.2 8.4 - 10.2 mg/dL [facility] Protein Total 6.6 6.0 - 8.3 g/dL [facility] Albumin 4.0 3.4 - 5.0 g/dL [facility] Bilirubin Total 0.6 0.2 - 1.2 mg/dL [facility] Alkaline Phosphatase 48 40 - 150 Units/L [facility] ALT 11 0 - 55 Units/L [facility] AST 8 5 - 34 Units/L [facility] Anion Gap 8 8 - 18 [facility] BUN/Creatinine Ratio 19 7 - 23 [facility] Osmolality Calculated 276 270 - 300 mOsm/kg [facility] Albumin/Globulin Ratio 1.5 1.1 - 2.3 [facility] eGFR >60 >60 mL/min/1.7 3 m2 [facility] Blood specimen (specimen) BLOOD SPECIMEN / Unknown 12/11/2014 9:45 AM CDT 12/11/2014 9:52 AM CDT Historical Provider LAB - CHEMISTRY O RDERABLES Performing Organization Address City/State/[facility] Co de Phone Number [facility] [address] [phone] * (ABNORMAL) CBC W AUTO DIFFERENTIAL (12/11/2014 9:35 AM CDT) WBC 11.0(H) 3.5 - 10.5 10? 3 /uL [facility] RBC 4.60 3.90 - 5.00 10? 6 /uL [facility] Hemoglobin 14.0 12.0 - 15.5 g/dL [facility] Hematocrit 41.7 35.0 - 45.0 % [facility] MCV 90.7 81.0 - 97.0 fL [facility] MCH 30.4 28.0 - 34.0 pg [facility] MCHC 33.6 32.0 - 36.0 g/dL [facility] Platelet Count 266 150 - 400 10? 3 /uL [facility] RDW-SD 45.3 36.0 - 50.0 fL [facility] RDW-CV 13.8 11.2 - 14.8 % [facility] MPV 9.0(L) 9.3 - 12.8 fL [facility] Neutrophils % 53.1 35.0 - 70.0 % [facility] Lymphocytes % 32.3 19.7 - 55.1 % [facility] Monocytes % 7.2 3.0 - 15.0 % [facility] Eosinophils % 6.2(H) 0.0 - 6.0 % [facility] Basophil % 0.6 0.0 - 1.5 % [facility] Neutrophils Absolute 5.9 1.6 - 7.0 10? 3 /uL [facility] Lymphocyte Absolute 3.6(H) 0.8 - 2.9 10? 3 /uL [facility] Monocytes Absolute 0.79(H) 0.14 - 0.66 10? 3 /uL [facility] Eosinophils Absolute 0.68(H) 0.00 - 0.22 10? 3 /uL [facility] Basophils Absolute 0.07(H) 0.00 - 0.06 10? 3 /uL [facility] Immature Granulocytes % 0.6 0.0 - 1.0 % [facility] Blood specimen (specimen) BLOOD SPECIMEN / Unknown 12/11/2014 9:35 AM CDT 12/11/2014 9:42 AM CDT Historical Provider MD LAB - HEMATOLOGY ORDERABLES Performing Organization Address [facility] de Phone Number [facility] [address] [phone] * CBC W AUTO DIFFERENTIAL (12/11/2014 9:35 AM CDT) Blood specimen (specimen) BLOOD SPECIMEN / Unknown 12/11/2014 9:35 AM CDT Narrative [facility] - 12/11/2014 9:44 AM CDT The following orders were created for panel order CBC w Differential. Procedure ? Abnormality ? Status ? --------- ? ------ ? CBC WITH DIFFERENTIAL[[id number]] ? Abnormal ?Final result ? Please view results for these tests on the individual orders. Historical Provider MD LAB - HEMATOLOGY ORDERABLES Performing Organization Address [facility] de Phone Number [facility] [address] documented in this encounter Visit Diagnoses Not on filedocumented in this encounter Care Teams Typewriters Functional Tester Relationship Specialty Start Date End Date Michael Palm MD [address] [place] [address] [address] [place] [address] PCP - General Internal Medicine 01/31/16 06/25/17 documented as of this encounter
--- OUTSIDE RECORDS SUMMARY | 2024-03-22 16:40 | XMS_ITS | Encounter Summary ---
Author Organization [facility] Health Address [address] [place] [address] Care Team Providers Care Button Attaching Machine Operator Name Role Phone Michael Palm MD Primary Care Provider Encounter Details Date Type Department Care Team (Latest Contact Info) Description 05/02/2015 Emergency Department Historic [facility] EMERGENCY DEPARTMENT [address] [place] [id number] Discharge Disposition: Home or Self Care Social [...] Sign Reading Time Taken Comments Blood Pressure 126/71 05/03/2015 12:58 AM OPERATIONS VICE PRESIDENT Pulse 99 05/02/2015 11:00 PM OPERATIONS VICE PRESIDENT Temperature 37 ??C (98.6 ??F) 05/03/2015 2:20 AM OPERATIONS VICE PRESIDENT Respiratory Rate 16 05/02/2015 6:21 PM OPERATIONS VICE PRESIDENT Oxygen Saturation 100% 05/02/2015 11:00 PM OPERATIONS VICE PRESIDENT Inhaled Oxygen Concentration - - Weight 72.6 kg (160 lb) 05/02/2015 6:21 PM OPERATIONS VICE PRESIDENT Height 165.1 cm (5' 5 ) 05/02/2015 6:21 PM OPERATIONS VICE PRESIDENT Body Mass Index 26.63 05/02/2015 6:21 PM OPERATIONS VICE PRESIDENT documented in this encounter Consult Notes * Joseph Graves MD - 05/02/2015 7:12 PM CST Consults Signed by Joseph Graves MD on 05/03/2015 6:30 AM Author: Joseph Graves MD Service: Neurology Author Type: Resident Date of Service: 05/02/2015 7:12 PM Filed: 05/03/2015 6:30 AM Note Type: Consults Status: Signed Grease Packer: Joseph Graves MD (Resident) Related Notes: Original Note by Joseph Graves MD (Resident) filed at 05/03/2015 6:22 AM Cosigner: Simon Carcamo MD at 05/03/2015 12:15 PM Neurology Consult Note Patient Name: Meredith Frost Age: 34 years Chief complaints: Generalized weakness, numbness and tingling of all toes and fingertips, balance impairment HPI: Meredith Frost is a 34 y.o woman with history of relapsing-remitting multiple sclerosis (On Tysabri monthly infusions- missed the one in [facility] due to insurance issues- last on was on 03/05/15), Asthma, Anxiety, Epilepsy (On Topiramate), Psychiatric illness including delusional disorder (hospitalized for it in 12/2014); presented today to ED with complaints of generalized weakness, gait imbalance, numbness and tingling of all fingertips and toes, and bilateral blurry vision. Patient reports that her symptoms are going on for ~ 2 weeks and are gradually getting worse. She states that her weakness is generalized and reportedly today afternoon, she was not able to lift a coffee pot with his right hand. She also endorsed imbalance while walking but denied any significant falls or injuries. Also complained that she is having blurry vision in both eyes in all directions, but denied any double vision, pain with eye movements. She denies weakness or numbness/tingling of any single extremity, bladder incontinence, frequency, urgency, vertigo. She reports one episode of bowel incontinence once a day after she got IM Haldol 100mg from her new Psychiatrist (Dr. Horacio Avitia). Besides that, she does not report any other episode of bowel incontinence. She does endorse increased fatigue. She denied any feelings of acute depression, suicidal or homicidal ideations, visual or auditory hallucinations. She also did not reports periods of agitation, excitation. She follows with Dr. Carcamo in Neurology clinic for her MS. She reports that she is here today as she feels she may be having an MS relapse and she can hopefully get Tysabri infusion as inpatient. ROS: General Negative for fever, chills. Positive for fatigue. Eyes Positive for blurry vision in both eyes. Negative for eye pain, double vision, eye redness or discharge. ENT Negative for ear pain, hearing loss, trouble swallowing and voice change. Pulmonary Negative for shortness of breath, chest tightness, cough. Cardiac Negative for chest pain, palpitations. GI Positive for constipation. Negative for nausea, vomiting, diarrhea, abdominal pain. Negative for urinary urgency, frequency, dysuria, hematuria. Neurologic Per HPI Psychiatric Negative for confusion, episodes of excitation, hallucinations or delusions. Skeletal Negative for arthralgia, joint swelling. Positive for muscle spasms. Allergies: No Known Allergies Home Medications: No current facility-administered medications for this encounter. Current Outpatient Prescriptions Medication Sig ??? haloperidol decanoate (HALDOL) 50 MG/ML Solution by Intramuscular route ONCE. ??? Natalizumab (TYSABRI IV) by Intravenous route. ??? tretinoin (RETIN-A) 0.05 % cream APPLY A PEA SIZED AMOUNT TO ENTIRE FACE EVERY NIGHT ??? Cholecalciferol (VITAMIN D3) 5000 UNITS Tab Take 1 tablet by mouth Daily. ??? baclofen (LIORESAL) 10 MG tablet Take 1 tablet by mouth 2 TIMES DAILY. Indications: Treatment to Prevent Migraine Headaches ??? benzoyl peroxide-erythromycin (BENZAMYCIN) gel Apply a thin layer to entire face each morning. ??? topiramate (TOPAMAX) 200 MG tablet Take 1 tablet by mouth 2 TIMES DAILY. Indications: Tonic-Clonic Seizures ??? Clindamycin Phos-Benzoyl Perox (ACANYA) 1.2-2.5 % Gel Apply a thin layer to your entire face each morning. ??? albuterol 108 (90 BASE) MCG/ACT inhaler Take 2 puffs by inhalation Every 6 hours as needed for Wheezing (shortness of breath). Indications: Asthma ??? fluticasone (FLONASE) 50 MCG/ACT Suspension 1 spray by Each Nostril route 2 TIMES DAILY. Indications: Nonallergic Rhinitis, Hayfever PMH: Past Medical History Diagnosis Date ??? History of knee surgery ??? MS (multiple sclerosis) ??? Seizure ??? Asthma ??? Asthma ??? Anxiety ??? Mental disorder Family History: Family History Problem Relation Age of Onset ??? Blindness Father ??? Breast Cancer Other ??? Cataract Father ??? Diabetes Paternal Grandmother Social History: History Social History ??? Marital Status: Single Spouse Name: N/A Number of Children: N/A ??? Years of Education: N/A Occupational History ??? Not on file. Social History Main Topics ??? Smoking status: Never Smoker ??? Smokeless tobacco: Never Used ??? Alcohol Use: No ??? Drug Use: No ??? Sexual Activity: Yes Partners: Male Control/ Protection: Condom Other Topics Concern ??? Not on file Social History Narrative ??? No narrative on file Physical Exam: Filed Vitals: 05/02/15 2230 05/02/15 2300 05/03/15 0058 05/03/15 0220 BP: 129/76 136/84 126/71 Pulse: 61 99 Temp: 98.6 ??F (37 ??C) Resp: SpO2: 100% 100% General Awake, alert, not in distress. HEENT: Head normocephalic and atraumatic, mucous membranes moist and clear. Neck supple, No Lhermitte's sign. Heart: Regular rate and rhythm without murmur Lungs: Clear to auscultation bilaterally, no wheezes or crackles Abdomen: Non-tender, non-distended, normal bowel sounds. Extremities: No cyanosis or edema noted Cortical Function: MS: Awake, alert, follows commands, blunted affect Oriented to person, place and time Language: Fluent, coherent, comprehension intact VF Intact to confrontation test Neglect No visual or tactile neglect Cranial Nerves: Pupils 3 mm BRTL, full EOM, no ptosis or nystagmus, no diplopia, VA: 20/40 in both eyes Facial sensation intact bilaterally to LT; no facial palsy Hearing intact to finger rub bilaterally Palate symmetric; normal tongue protrusion Shoulder shrug symmetric Motor: Abnormal Movements: None Bulk and tone: Normal Strength: Malou intact in both upper extremities RUE 4+/5 LUE 4+/5 RLE 4+/5 LLE 4+/5 DTR: Bi Tri BR Pat Ach Toes R 3 2 2 2 1 Down L 3 2 2 2 1 Down Sensory: Intact to light touch, pin prick, vibration and proprioception bilaterally, Romberg's- positive Cerebellar: FNF intact bilaterally, HKS slow but intact bilaterally Gait: Slow gait with small steps; turn, arm swings normal; tandem not possible, required frequent supportwhile walking. Labs: * CMP: 05/02/2015 19:16 Sodium 139 Potassium 3.7 Chloride 107 Carbon Dioxide 23 BUN 18 Creatinine 0.8 BUN/Creatinine Ratio 23 Glucose 105 Calcium 9.8 Total Protein (MG/DL) 6.8 Albumin 3.8 Total bilirubin 0.3 Alkaline Phosphatase 68 ALT 11 AST 10 Anion Gap 13 Calculated Osmolality 276 A/G Ratio 1.3 eGFR >60 * CBC: 05/02/2015 19:16 WBC 12.4 (H) RBC 4.60 Hemoglobin 13.8 Hematocrit 41.2 MCV 89.6 MCH 30.0 MCHC 33.5 Platelets 316 RDW (SD) 44.0 RDW-CV 13.4 MPV 9.1 (L) NRBC-absolute 0.02 (H) Neutrophil % Manual 53 Lymphocyte % Manual 33 Monocyte % Manual 4 Eosinophil % Manual 8 (H) Basophil % Manual 2 Neutrophil ABS 6.57 Lymphs, abs 4.09 (H) Monos, abs 0.50 EOS # 0.99 (H) Basophils Abs 0.25 (H) TOTAL CELL COUNT 100 NRBC, auto % 0.2 (H) Platelet Estimate Adequate RBC Morphology Normal * Urine tox screen: 05/02/2015 20:45 Amphetamines, Urine Screen Negative Barbiturates, Urine Screen Negative Benzodiazepines, Urine Screen Negative Cannabinoids (THC), Urine Screen Negative Cocaine Metabolites, Urine Screen Negative Methadone, Urine Screen Negative OPIATES (URINE) Negative Phencyclidine, Urine Screen Negative * Ethanol: None detected * Urinalysis: 05/02/2015 20:45 Color Yellow Clarity Clear Specific [place] UA 1.014 pH UA 6.5 Protein UA Negative Glucose UA Negative Ketones Negative Bilirubin UA Negative Blood UA Negative Nitrite UA Negative LEUKOCYTE ESTERASE Negative Urobilinogen UA <2.0 RBC UA 1 Squamous Epithelial Cells UA 12 (H) Mucous, Urine Rare (A) * Urine test: Negative Imaging studies: * MRI brain w/wo contrast (final Radiology read pending): - Innumerable T2/FLAIR hyperintensities scattered in both cerebral hemispheres, cerebellum and brainstem; similar to previous MRI brain in 10/2013; no enhancing lesions to suggest active disease. * MRI cervical and thoracic spine w/wo contrast (final Radiology read pending): - Multiple T2/STIR hyperintense lesions in the cervical and thoracic spine similar in appearance and number compared to the prior MRIs in 10/2013. No enhancing lesions to suggest active disease. Assessment and Plan: Meredith Frost is a 34 y.o. Female with relapsing-remitting MS (On Natalizumab monthly infusions-last on03/05/15, missed the March one due to insurance issues); Psychiatric illness including anxiety, delusional disorder, Asthma, Seizures; presented to ED today with complaints of generalized weakness,numbness and tingling of all toes and fingertips, balance impairment, bilateral blurry vision. Per patient, these symptoms are going on for ~ 2weeks and progressively getting worse. * Questionable relapse of MS vs progressive symptoms of MS: - From patient's history and physical exam, symptoms are not likely suggestive of acute relapse or exacerbation. Patient may have progressive symptoms which she usually has due to MS. - Considering complex Psychiatric history, possible presentation due to Psychiatric illness should be ruled out. Based on interaction with patient, she had flat affect but no delusional behavior or thoughts or tangential thoughts noted. - Patient labs were unremarkable including CMP, CBC, UA, Urine tox screen, Ethanol. - After discussion with attending Dr. Carcamo, with whom patient also follows-up in Neurology clinic, it was decided to get MRI brain w/wo contrast, MRI cervical spine w/wo contrast and MRI thoracic spine w/wo contrast in ED if possible, so as to prevent hospital admission in case patient does not have any new lesions. - After discussion with ED physician, radiology was called and per discussion with on-call vice president of development, MRI brain, cervical spine and thoracic spine w/wo contrast were ordered. - Preliminary MRI brain, C and T spine w/wo contrast results showed no new lesions or enhanced lesions to suggest active disease when compared to MRIs done on 10/17/2013. - It was decided to discharge patient from ED. Patient was not happy about this as she was hoping to get inpatient Tysabri infusion. Patient was informed about the rationale behind the discharge fromED (considering ho active insurance, and no new active lesions on MRIs). - Patient to be discharged to home. Patient to call his brother to pick her up. Patient was also instructed to call the Neurology clinic for further instructions about how to proceed for next Tysabriinfusion. Case findings discussed with Dr. Carcamo, Neurology Attending on phone. Joseph Graves MD Neurology Resident ATIONS VICE PRESIDENT documented in this encounter Plan of Treatment Upcoming Encounters Date Type Department Care Team (Late st Contact Info) Description 04/04/2024 8:30 AM OPERATIONS VICE PRESIDENT Office Visit [facility] - Dermatology [address] [place] [address], [place] [phone] Marlys Zaragoza MD [address] [place] [address] [address] [place] [phone] 09/03/2024 9:00 AM CDT Office Visit [facility] - Neurology [address] [place] [address], [place] [phone] Melissa Crook, BROKERAGE MANAGER-LATHING SUPERVISOR [address] [place] [phone] documented as of this encounter Procedures Procedure Name Priority Date/Time Associated Diagnosis Comments HCG URINE QUALITATIVE - POCT (IP) [facility] STAT 05/02/2015 8:56 PM OPERATIONS VICE PRESIDENT DRUG ABUSE PANEL 10-20+ETHANOL URINE NO CONFIRM STAT 05/02/2015 8:45 PM OPERATIONS VICE PRESIDENT URINALYSIS REFLEX TO MICROSCOPIC NO CULTURE STAT 05/02/2015 8:45 PM OPERATIONS VICE PRESIDENT XR CHEST 2VW STAT 05/02/2015 7:29 PM OPERATIONS VICE PRESIDENT DIFFERENTIAL MANUAL STAT 05/02/2015 7 :16 PM OPERATIONS VICE PRESIDENT CBC W AUTO DIFFERENTIAL STAT 05/02/2015 7:16 PM OPERATIONS VICE PRESIDENT CBC W AUTO DIFFERENTIAL STAT 05/02/2015 7:16 PM OPERATIONS VICE PRESIDENT COMPREHENSIVE METABOLIC PANEL Routine 05/02/2015 7:16 PM OPERATIONS VICE PRESIDENT ALCOHOL ETHYL BLOOD STAT 05/02/2015 7 :16 PM OPERATIONS VICE PRESIDENT documented in this encounter Results * HCG URINE QUALITATIVE - POCT (IP) [facility] (05/02/2015 8:56 PM OPERATIONS VICE PRESIDENT) Test Urine negative [facility] Urine specimen (specimen) 05/02/2015 8:56 PM OPERATIONS VICE PRESIDENT Narrative [facility] - 05/02/2015 8:56 PM OPERATIONS VICE PRESIDENT negative Jad Reece MD LAB - POINT OF CARE ORDERABLES [facility] * DRUG ABUSE PANEL 10-20+ETHANOL URINE NO CONFIRM (05/02/2015 8:45 PM OPERATIONS VICE PRESIDENT) [facility] Amphetamines Screen Urine Negative Negative: < 1000 ng/mL [facility] Barbiturates Screen Urine Negative Negative: < 200 ng/mL [facility] Benzodiazepine Screen Urine Negative Negative: < 200 ng/mL [facility] Opiates Urine Negative Negative: < 300 ng/mL [facility] Cocaine Metabolites Urine Negative Negative: < 300 ng/mL [facility] Phencyclidine Screen Urine Negative Negative: < 25 ng/ml [facility] Cannabinoids Screen Urine Negative Negative: <50 ng/mL [facility] Methadone Screen Urine Negative Negative: < 300 ng/mL [facility] Urine specimen (specimen) 05/02/2015 8:45 PM OPERATIONS VICE PRESIDENT 05/02/2015 8:49 PM OPERATIONS VICE PRESIDENT Narrative [facility] - 05/02/2015 9:10 PM OPERATIONS VICE PRESIDENT The Urine Toxicology Screening Panel does not screen for Propoxyphene, Meprobamate, Carisoprodol, Trazodone, [id number] medications and/or volatiles (Acetone, Isopropanol, Methanol or Ethylene Glycol). Ethanol, Salicylate, Acetaminophen, Tricyclic Antidepressants and several therapeutic drugs may be individually assayed in serum or plasma specimen. Toxicology testing by the [facility] is an aid to medical diagnosis and treatment of patients. No documented chain of custody was maintained. Results are intended to be used for clinical purposes only. ? Jad Reece MD LAB - URINE CHEMISTR Y ORDERABLES Performing Organization Address City/State/[facility] Co de Phone Number [address] [phone] * (ABNORMAL) URINALYSIS REFLEX TO MICROSCOPIC NO CULTURE (05/02/2015 8:45 PM OPERATIONS VICE PRESIDENT) Color UA Yellow Straw, Yellow, Colorless, Light Yellow [facility] Clarity UA Clear Clear [facility] Specific [place] UA 1.014 1.001 - 1.030 [facility] pH UA 6.5 5.0 - 8.0 [facility] Protein UA Negative <=20 mg/dL [facility] Glucose UA Negative Negative mg/dL [facility] Ketone UA Negative Negative mg/dL [facility] Bilirubin UA Negative Negative mg/dL [facility] Blood UA Negative Negative [facility] Nitrite UA Negative Negative [facility] Leukocyte Esterase Negative Negative [facility] Urobilinogen UA <2.0 <2.0 mg/dL [facility] RBC UA 1 0 - 8 /HPF [facility] Squamous Epithelial Cells UA 12(H) 0 - 1 /HPF [facility] Mucus UA Rare(A) None /LPF [facility] Urine specimen (specimen) 05/02/2015 8:45 PM OPERATIONS VICE PRESIDENT 05/02/2015 8:49 PM OPERATIONS VICE PRESIDENT Jad Reece MD LAB - [place] [address], [facility] [phone] * XR CHEST 2VW (05/02/2015 7:29 PM OPERATIONS VICE PRESIDENT) Anatomical Region Laterality Modality Chest Other Impressions 05/03/2015 9:53 AM OPERATIONS VICE PRESIDENT IMPRESSION: No acute pulmonary process. Dictated by Tony Lu M.D. (Division Order Technician). This report was approved ??by Tony Lu M.D. ?? on 05/03/2015 7:[address] REENA Ahuja MD have personally reviewed and interpreted this examination/study. This report was electronically signed by Dr. REENA SUAREZ MD ??on 05/03/2015 9:53 AM . Narrative 05/03/2015 9:53 AM OPERATIONS VICE PRESIDENT EXAMINATION: XR CHEST PA AND LATERAL DATE: [...] pulmonary process. Dictated by Tony Lu M.D. (Division Order Technician). This report was approved by Tony Lu M.D. on 05/03/2015 7:[address] REENA Ahuja MD have personally reviewed and interpreted thisexamination/study. This report was electronically signed by Dr. REENA SUAREZ MD on05/03/2015 9:53 AM . Jad Reece MD DIAGNOSTIC IMAGING O RDERABLES * (ABNORMAL) DIFFERENTIAL MANUAL (05/02/2015 7:16 PM OPERATIONS VICE PRESIDENT) WBC (corrected for NRBC) 12.4 10? 3 /uL [facility] Total Cell Count 100 [facility] Neutrophils Absolute Manual 6.57 1.60 - 7.00 10? 3 /uL [facility] Comment:(BANDS+SEGS) x WBC = NEUT # (ANC) Lymphocyte Absolute Manual 4.09(H) 0.80 - 2.90 10? 3 /uL [facility] Monocytes Absolute Manual 0.50 0.14 - 0.66 10? 3 /uL [facility] Eosinophils Absolute Manual 0.99(H) 0.00 - 0.22 10? 3 /uL [facility] Basophil Absolute Manual 0.25(H) 0.00 - 0.06 10? 3 /uL [facility] Neutrophil % Manual 53 30 - 60 % [facility] Lymphocyte % Manual 33 20 - 45 % [facility] Monocytes % Manual 4 2 - 10 % [facility] Eosinophils % Manual 8(H) 1 - 6 % [facility] Basophils % Manual 2 0 - 3 % [facility] Platelet Estimate Adequate Adequate [facility] RBC Morphology Normal [facility] Blood specimen (specimen) BLOOD SPECIMEN / Unknown 05/02/2015 7:16 PM OPERATIONS VICE PRESIDENT 05/02/2015 7:21 PM OPERATIONS VICE PRESIDENT Jad Reece MD LAB - HEMATOLOGY ORD ERABLES Performing Organization Address City/State/[facility] Co de Phone Number [facility] [address] [place] [address] * CBC W AUTO DIFFERENTIAL (05/02/2015 7:16 PM OPERATIONS VICE PRESIDENT) Blood specimen (specimen) BLOOD SPECIMEN / Unknown 05/02/2015 7:16 PM OPERATIONS VICE PRESIDENT Narrative [facility] - 05/02/2015 8:53 PM OPERATIONS VICE PRESIDENT The following orders were created for panel order CBC w Differential. Procedure ? Abnormality ? Status ? --------- ? ------ ? CBC WITH DIFFERENTIAL[[id number]] ? Abnormal ?Final result ? MANUAL DIFFERENTIAL[[id number]] ? Abnormal ?Final result ? Please view results for these tests on the individual orders. Jad Reece MD LAB - HEMATOLOGY [place] LÓPEZ Performing Organization Address [facility] Co de Phone Number [facility] [address] * ALCOHOL ETHYL BLOOD (05/02/2015 7:16 PM OPERATIONS VICE PRESIDENT) [facility] Interpretation Ethanol None Detected None Detected mg/dL [facility] Comment:Ethanol levels less than 10 mg/dL are resulted as None detected . Blood specimen (specimen) BLOOD SPECIMEN / Unknown 05/02/2015 7:16 PM OPERATIONS VICE PRESIDENT 05/02/2015 7:16 PM OPERATIONS VICE PRESIDENT Jad Reece MD LAB - CHEMISTRY [place] [facility] Performing Organization Address [facility] Co de Phone Number [facility] [address] [phone] * COMPREHENSIVE METABOLIC PANEL (05/02/2015 7:16 PM OPERATIONS VICE PRESIDENT) [facility] BUN 18 7 - 26 mg/dL [facility] Creatinine 0.8 0.6 - 1.2 mg/dL [facility] Sodium 139 136 - 145 mmol/L [facility] Potassium 3.7 3.5 - 4.5 mmol/L [facility] Chloride 107 98 - 107 mmol/L [facility] CO2 23 22 - 29 mmol/L [facility] Glucose 105 70 - 115 mg/dL [facility] Calcium 9.8 8.4 - 10.2 mg/dL [facility] Protein Total 6.8 6.0 - 8.3 g/dL [facility] Albumin 3.8 3.4 - 5.0 g/dL [facility] Bilirubin Total 0.3 0.2 - 1.2 mg/dL [facility] Alkaline Phosphatase 68 40 - 150 Units/L [facility] ALT 11 0 - 55 Units/L [facility] AST 10 5 - 34 Units/L [facility] Anion Gap 13 8 - 18 [facility] BUN/Creatinine Ratio 23 7 - 23 [facility] Osmolality Calculated 276 270 - 300 mOsm/kg [facility] Albumin/Globulin Ratio 1.3 1.1 - 2.3 [facility] eGFR >60 >60 mL/min/1.7 3 m2 [facility] Blood specimen (specimen) BLOOD SPECIMEN / Unknown 05/02/2015 7:16 PM OPERATIONS VICE PRESIDENT 05/02/2015 7:16 PM OPERATIONS VICE PRESIDENT Jad Reece MD LAB - CHEMISTRY [place] [facility] Organization Address City/State/[facility] Co de Phone Number [address] [phone] * (ABNORMAL) CBC W AUTO DIFFERENTIAL (05/02/2015 7:16 PM OPERATIONS VICE PRESIDENT) WBC 12.4(H) 3.5 - 10.5 10? 3 /uL [facility] RBC 4.60 3.90 - 5.00 10? 6 /uL [facility] Hemoglobin 13.8 12.0 - 15.5 g/dL [facility] Hematocrit 41.2 35.0 - 45.0 % [facility] MCV 89.6 81.0 - 97.0 fL [facility] MCH 30.0 28.0 - 34.0 pg [facility] MCHC 33.5 32.0 - 36.0 g/dL [facility] Platelet Count 316 150 - 400 10? 3 /uL [facility] RDW-SD 44.0 36.0 - 50.0 fL [facility] RDW-CV 13.4 11.2 - 14.8 % [facility] MPV 9.1(L) 9.3 - 12.8 fL [facility] nRBC Absolute 0.02(H) 0 10? 3 /uL [facility] nRBC Auto 0.2(H) 0 /100 WBC [facility] Reflex Status Manual Differential to follow. [facility] Blood specimen (specimen) BLOOD SPECIMEN / Unknown 05/02/2015 7:16 PM OPERATIONS VICE PRESIDENT 05/02/2015 7:16 PM OPERATIONS VICE PRESIDENT Jad Reece MD LAB - HEMATOLOGY ORD ERABLES Performing Organization Address City/State/[facility] Co de Phone Number [address] [phone] documented in this encounter Visit Diagnoses Diagnosis Unspecified symptoms and signs involving the nervous system (CODE) Unspecified symptoms and signs involving the nervous system documented in this encounter Care Teams Button Attaching Machine Operator Relationship Specialty Start Date End Date Michael Palm MD [address] [place] [address] [address] [place] [address] PCP - General Internal Medicine 01/31/16 06/25/17 documented as of this encounter
--- OUTSIDE RECORDS SUMMARY | 2024-03-22 16:40 | XMS_ITS | Encounter Summary ---
Author Organization [facility] Health Address [address] [place] [address] Care Team Providers Care Solar Sales Representative And Assessor Name Role Phone Michael Palm MD Primary Care Provider [phone] Encounter Details Date Type Department Care Team (Latest Contact Info) Description 02/25/2016 Hospital Outpatient Visit Historic [facility] INFUSION CENTER [address] [place] [address] Jimmy Sanchez MD [address] [place] [address] Discharge Disposition: Home or Self Care Social [...] st Contact Info) Description 04/04/2024 8:30 AM CONSTRUCTION PROJECT COORDINATOR Office Visit [facility] - Dermatology [address] [place] [address], [facility] [place] [phone] Marlys Zaragoza MD [address] [place] [address] 3 [place] [phone] 09/03/2024 9:00 AM CDT Office Visit [facility] - Neurology [address] [facility], [place] [phone] Melissa Crook, GEOLOGICAL ENGINEER-PERFUME COMPOUNDER [address] [place] [address] documented as of this encounter Procedures Procedure Name Priority Date/Time Associated Diagnosis Comments CBC W AUTO DIFFERENTIAL Routine 02/25/2016 10:54 AM CONSTRUCTION PROJECT COORDINATOR COMPREHENSIVE METABOLIC PANEL Routine 02/25/2016 10:54 AM CONSTRUCTION PROJECT COORDINATOR LAB MISC TEST Routine 02/25/2016 10:54 AM CONSTRUCTION PROJECT COORDINATOR CBC W AUTO DIFFERENTIAL Routine 02/25/2016 10:54 AM CONSTRUCTION PROJECT COORDINATOR documented in this encounter Results * (ABNORMAL) CBC W AUTO DIFFERENTIAL (02/25/2016 10:54 AM CONSTRUCTION PROJECT COORDINATOR) WBC 9.6 3.5 - 10.5 10? 3 /uL [facility] RBC 4.66 3.90 - 5.00 10? 6 /uL [facility] Hemoglobin 14.3 12.0 - 15.5 g/dL [facility] Hematocrit 41.8 35.0 - 45.0 % [facility] MCV 89.7 81.0 - 97.0 fL [facility] MCH 30.7 28.0 - 34.0 pg [facility] MCHC 34.2 32.0 - 36.0 g/dL [facility] Platelet Count 327 150 - 400 10? 3 /uL [facility] RDW-SD 44.2 36.0 - 50.0 fL [facility] RDW-CV 13.5 11.2 - 14.8 % [facility] MPV 9.5 9.3 - 12.8 fL [facility] Neutrophils % 46.3 35.0 - 70.0 % [facility] Lymphocytes % 34.8 19.7 - 55.1 % [facility] Monocytes % 7.9 3.0 - 15.0 % [facility] Eosinophils % 10.2(H) 0.0 - 6.0 % [facility] Basophil % 0.8 0.0 - 1.5 % [facility] Neutrophils Absolute 4.5 1.6 - 7.0 10? 3 /uL [facility] Lymphocyte Absolute 3.4(H) 0.8 - 2.9 10? 3 /uL [facility] Monocytes Absolute 0.76(H) 0.14 - 0.66 10? 3 /uL [facility] Eosinophils Absolute 0.98(H) 0.00 - 0.22 10? 3 /uL [facility] Basophils Absolute 0.08(H) 0.00 - 0.06 10? 3 /uL [facility] Immature Granulocytes % 0.4 0.0 - 1.0 % [facility] Blood specimen (specimen) BLOOD SPECIMEN / Unknown 02/25/2016 10:54 AM CONSTRUCTION PROJECT COORDINATOR 02/25/2016 11:15 AM CONSTRUCTION PROJECT COORDINATOR Devan Renee MD LAB - HEMATOLOG Y ORDERABLES [facility] [address] [place] [address] * (ABNORMAL) COMPREHENSIVE METABOLIC PANEL (02/25/2016 10:54 AM CONSTRUCTION PROJECT COORDINATOR) BUN 21 7 - 26 mg/dL [facility] Creatinine 0.7 0.6 - 1.2 mg/dL [facility] Sodium 140 136 - 145 mmol/L [facility] Potassium 3.8 3.5 - 4.5 mmol/L [facility] Chloride 112(H) 98 - 107 mmol/L [facility] CO2 17(L) 22 - 29 mmol/L [facility] Glucose 86 70 - 115 mg/dL [facility] Calcium 9.1 8.4 - 10.2 mg/dL [facility] Protein Total 7.3 6.0 - 8.3 g/dL [facility] Albumin 4.2 3.4 - 5.0 g/dL [facility] Bilirubin Total 0.3 0.2 - 1.2 mg/dL [facility] Alkaline Phosphatase 53 40 - 150 Units/L [facility] ALT 9 0 - 55 Units/L [facility] AST 10 5 - 34 Units/L [facility] Anion Gap 15 8 - 18 [facility] BUN/Creatinine Ratio 30(H) 7 - 23 [facility] Osmolality Calculated 292 270 - 300 mOsm/kg [facility] Albumin/Globulin Ratio 1.4 1.1 - 2.3 [facility] eGFR >60 >60 mL/min/1.7 3 m2 [facility] Blood specimen (specimen) BLOOD SPECIMEN / Unknown 02/25/2016 10:54 AM CONSTRUCTION PROJECT COORDINATOR 02/25/2016 11:15 AM CONSTRUCTION PROJECT COORDINATOR Devan Renee MD LAB - CHEMISTRY ORDERABLES Performing Organization Address City/[facility]/ZIP Co de Phone Number [address] [phone] * LAB MISC TEST (02/25/2016 10:54 AM CONSTRUCTION PROJECT COORDINATOR) Reference Lab Results SEE SCANNED RESULT [facility] REF LAB NON INTERF Other (qualifier value) 02/25/2016 10:54 AM CONSTRUCTION PROJECT COORDINATOR 02/25/2016 11:17 AM CONSTRUCTION PROJECT COORDINATOR Narrative [facility] REF LAB NON INTERF - 03/05/2016 10:29 AM CONSTRUCTION PROJECT COORDINATOR Test Name:->STRATIFY JCV AB W/INDEX W REFLEX TO INHIBITION ASSAY Reference Lab Info:->NA Jimmy Sanchez MD LAB SEND OUT Performing Organization Address City/[facility]/ZIP Co de Phone Number [facility] REF LAB NON INTERF * CBC W AUTO DIFFERENTIAL (02/25/2016 10:54 AM CONSTRUCTION PROJECT COORDINATOR) Blood specimen (specimen) BLOOD SPECIMEN / Unknown 02/25/2016 10:54 AM CONSTRUCTION PROJECT COORDINATOR Narrative [facility] - 02/25/2016 11:19 AM CONSTRUCTION PROJECT COORDINATOR The following orders were created for panel order CBC w/ Differential, Platelet. Procedure ? Abnormality ? Status ? --------- ? ------ ? CBC WITH DIFFERENTIAL[[id number]] ? Abnormal ?Final result ? Please view results for these tests on the individual orders. 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
--- OUTSIDE RECORDS SUMMARY | 2024-03-22 16:40 | XMS_ITS | Encounter Summary ---
Author Organization [facility] Health Address [address] [place] [address] Care Team Providers Care Label Designer Name Role Phone Michael Palm MD Primary Care Provider [phone] Encounter Details Date Type Department Care Team (Latest Contact Info) Description 06/14/2015 Emergency Department Historic [facility] EMERGENCY DEPARTMENT [address] [place] [address] Discharge Disposition: Home or Self Care Social [...] Sign Reading Time Taken Comments Blood Pressure 134/87 06/14/2015 6:43 PM CDT Pulse 107 06/14/2015 6:43 PM CDT Temperature 37 ??C (98.6 ??F) 06/14/2015 6:43 PM CDT Respiratory Rate 16 06/14/2015 6:43 PM CDT Oxygen Saturation 99% 06/14/2015 6:43 PM CDT Inhaled Oxygen Concentration - - Weight 72.6 kg (160 lb) 06/14/2015 6:43 PM CDT Height 165.1 cm (5' 5 ) 06/14/2015 6:43 PM CDT Body Mass Index 26.63 06/14/2015 6:43 PM CDT documented in this encounter Plan of Treatment Upcoming Encounters Date Type Department Care Team (Late st Contact Info) Description 04/04/2024 8:30 AM TERRAZZO TILE MAKER Office Visit [facility] - Dermatology [address] [place] [address], [place] [address] Marlys Zaragoza MD [address] [place] [address] 3L [place] [phone] 09/03/2024 9:00 AM CDT Office Visit [facility] - Neurology [address] [place] [address], [place] [phone] Melissa Crook APRN-ROLL CAPPER [address] [place] [phone] documented as of this encounter Visit Diagnoses Not on filedocumented in this encounter Care Teams Label Designer Relationship Specialty Start Date End Date Michael Palm MD [address] [place] [address] [address] [place] [address] PCP - General Internal Medicine 01/31/16 06/25/17 documented as of this encounter
--- OUTSIDE RECORDS SUMMARY | 2024-03-22 16:40 | XMS_ITS | Encounter Summary ---
Author Organization [facility] Health Address [address] [facility] [place] [address] Care Team Providers Care Ship'S Electronic Warfare Officer Name Role Phone Michael Palm MD Primary Care Provider Encounter Details Date Type Department Care Team (Latest Contact Info) Description 06/11/2015 Hospital Outpatient Visit Historic [facility] MAIN LAB [address] [place] [address] [place] [address] [place] [address] Discharge Disposition: Home or Self Care Social [...] st Contact Info) Description 04/04/2024 8:30 AM DRIER OPERATOR HEAD Office Visit [facility] - Dermatology [address] [place] [address], [place] [phone] Marlys Zaragoza MD [address] [place] [address] 3 [place] [phone] 09/03/2024 9:00 AM CDT Office Visit [facility] - [facility] [address] [facility] [place] [address] Melissa Crook APRN-DIRECTOR HOME [address] [place] [phone] documented as of this encounter Visit Diagnoses Not on filedocumented in this encounter Care Teams Ship'S Electronic Warfare Officer Relationship Specialty Start Date End Date Michael Palm MD [address] [place] [address] [address] [place] [address] PCP - General Internal Medicine 01/31/16 06/25/17 documented as of this encounter
--- OUTSIDE RECORDS SUMMARY | 2024-03-22 16:40 | XMS_ITS | Encounter Summary ---
Author Organization [facility] Health Address [address] [place] [address] Care Team Providers Care Transportation Maintenance Operator Name Role Phone Michael Palm MD Primary Care Provider [phone] Encounter Details Date Type Department Care Team (Latest Contact Info) Description 06/20/2017 Hospital Outpatient Visit Historic [facility] OUTPATIENT SERVICES [address] [place] [phone] Devan Renee MD [address] [place] [address] 1L [place] [address] Discharge Disposition: Home or Self Care Social [...] st Contact Info) Description 04/04/2024 8:30 AM BAG SORTER Office Visit [facility] - Dermatology [address] [facility], [place] [phone] Marlys Zaragoza MD [facility] 3L [place] [address] 09/03/2024 9:00 AM CDT Office Visit [facility] - Neurology [address] [facility] [place] [phone] Melissa Crook APRN-VP SOFTWARE [address] [place] [phone] documented as of this encounter Visit Diagnoses Not on filedocumented in this encounter Care Teams Transportation Maintenance Operator Relationship Specialty Start Date End Date Micahel Palm MD [address] [place] [address] [address] [place] [address] PCP - General Internal Medicine 01/31/16 06/25/17 documented as of this encounter
--- OUTSIDE RECORDS SUMMARY | 2024-03-22 16:40 | XMS_ITS | Encounter Summary ---
Author Organization [facility] Health Address [address] [facility] [place] [address] Care Team Providers Care Professor Of Sport Management Name Role Phone Michael Palm MD Primary Care Provider [phone] Encounter Details Date Type Department Care Team (Latest Contact Info) Description 03/05/2015 Hospital Outpatient Visit Historic [facility] MAIN LAB [address] [place] [address] Simon Carcamo MD [address] [place] [address] Discharge Disposition: Home or Self Care Social [...] st Contact Info) Description 04/04/2024 8:30 AM PHYSICIAN NEONATOLOGY Office Visit [facility] - Dermatology [address] [place] [address], [place] [phone] Marlys Zaragoza MD [address] [place] [address] 3 [place] [phone] 09/03/2024 9:00 AM CDT Office Visit [facility] - Neurology [address] [facility] [place] [address] Melissa Crook APRN-DELI WORKER [address] [place] [phone] documented as of this encounter Visit Diagnoses Not on filedocumented in this encounter Care Teams Professor Of Sport Management Relationship Specialty Start Date End Date Michael Palm MD [address] [place] [address] [address] [place] [address] PCP - General Internal Medicine 01/31/16 06/25/17 documented as of this encounter
--- OUTSIDE RECORDS SUMMARY | 2024-03-22 16:40 | XMS_ITS | Encounter Summary ---
Author Organization [facility] Health Address [address] [facility] [place] [address] Care Team Providers Care Watch And Clock Repairer Name Role Phone [place], Lauren Jose Eduardo JOSHI Primary Care Provider Reason for Visit * Reason Comments Follow-up MS Encounter Details Date Type Department Care Team (Late st Contact Info) Description 01/16/2018 10:40 AM CDT Office Visit [facility] Neurology [address] [place] [address] Alesia Vazquez APRN-CNP [address] [place] [phone] MS (multiple sclerosis) (HCC) (Primary Dx); Impaired functional mobility, balance, gait, and endurance; Medication monitoring encounter; Intractable chronic 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 without status migrainosus; Spasticity; High risk medication use; Vitamin D deficiency Social History Tobacco Use Types Packs/Day Years [...] Sign Reading Time Taken Comments Blood Pressure 120/78 01/16/2018 10:43 AM CDT Pulse 78 01/16/2018 10:43 AM CDT Temperature 36 ??C (96.8 ??F) 01/16/2018 10:43 AM CDT Respiratory Rate - - Oxygen Saturation - - Inhaled Oxygen Concentration - - Weight 65.8 kg (145 lb) 01/16/2018 10:43 AM CDT Height 165.1 cm (5' 5 ) 01/16/2018 10:43 AM CDT Body Mass Index 24.13 01/16/2018 10:43 AM CDT documented in this encounter Patient Instructions * Patient Instructions* Alesia Vazquez APRN-CNP - 01/16/2018 11:19 AM CDT Please have lab work every 3 months. Clinic follow up 4 months. documented in this encounter Progress Notes * Alesia Vazquez APRN-CNP - 01/16/2018 10:40 AM CDT Neurology MS clinic Follow up 01/16/2018 CC RRMS follow up Gait imbalance Handed R No Known Allergies MEDS Past Avonex Tysabri SE of spaced out Adderall Gilenya Rebif Topamax SE of Cognitive impairment Trazodone Gabapentin Amitriptyline Various psych meds Current Outpatient Prescriptions Medication Sig Dispense Refill ??? mumtkzbyyk-ibuzedhclvlgc-mhvrtdpe (FIORICET) 50-325-40 MG tablet Take 1 tablet by mouth every 4hours as needed for Headache (no additional tylenol or acetamenophen with this medication.) 30 tablet 5 ??? zonisamide (ZONEGRAN) 100 MG capsule Take 4 capsules by mouth at bedtime 120 capsule 5 ??? baclofen (LIORESAL) 10 MG tablet Take 1 tablet by mouth 2 times daily May cause drowsiness. 60 tablet 5 ??? onabotulinumtoxin A (BOTOX) 100 UNITS injection Inject 200 Units into muscle Every 90 days 2 Each 3 ??? erythromycin (ERYDERM) 2 % solution Apply 1-2 times daily to entire face 60 mL 11 ??? benzoyl peroxide (BENZAC) 10 % wash Wash face and body with once daily 1 bottles 11 ??? tretinoin (RETIN-A) 0.05 % cream Apply thin layer to entire face nightly 45 g 11 ??? Ocrelizumab (OCREVUS IV) 600 mg by Intravenous route Reasons: every 6 months ??? vitamin D3 (CHOLECACIFEROL) 5000 UNITS Take 1 tablet by mouth once daily 30 tablet 5 ??? benztropine (COGENTIN) 0.5 MG tablet Take 1 tablet by mouth 2 times daily (Patient not taking: Reported on 01/14/2018) 60 tablet 2 ??? ABILIFY MAINTENA 300 MG injection Inject 1.5 mL into muscle every 28 days 1 Each 5 ??? hydrOXYzine hcl (ATARAX) 25 MG tablet Take 1 tablet by mouth 2 times daily as needed 60 tablet 3 ??? calcium carbonate (TUMS) 500 MG chew tablet Take 500 mg by mouth as needed for GI Upset ??? ibuprofen (MOTRIN) 600 MG tablet Take 1 tablet by mouth every 6 hours as needed 1 ??? raNITIdine (ZANTAC) 150 MG tablet Take 1 tablet by mouth 2 times daily as needed ??? albuterol HFA (PROVENTIL;VENTOLIN;PROAIR) 108 (90 BASE) MCG/ACT inhaler Inhale 2 Puffs by mouthevery 6 hours ??? fluticasone propionate (FLONASE) 50 MCG/ACT nasal spray Hunter 1 Hunter into the nose ??? budesonide-formoterol (SYMBICORT) 160-4.5 MCG/ACT inhaler No current facility-administered medications for this visit. PMH Asthma MS PUD 03/30 Sz 2007 Depression, anxiety, psychosis R knee subluxation as child FH (-) MS, SLE, RA (+) asthma, aunt with brain aneurysm Sister daughter w sz, epilepsy surgery 12/31 Lives with mother. Son, 2003, good health, doing well in school HPI 09/22 Sx Diplopia, LUE weakness, ataxia, fainting BJ CSF ? Results MRI abnl Rx IVMP Recovered completely Avonex Switched to [facility] for insurance reasons 03/26 Relapse RLE Numbness, weakness 09/23 Sx New onset sz Rx TPX Rebif 2009 Rx Tysabri x 3 mos Made her [...] Sx sz Had run out of lamotrigine [facility], lamotrigine restarted 04/30 Rx TPX Restarted [...] since 05/28 No sz 11/18/11 Sx Adm [facility] with [facility] Rx IVMP, d/c'ed on taper MRI occ enhancing lesion 01/03/12 Rx 1st Tysabri infusion 01/14/12 Rx Adm [facility] with [facility] Rx Received IVMP x 4 [...] last infused Sx No relapse/progression since 03/01 [facility] Psych adm ~30 lbs wgt gain 04/02 [...] months. Haldol d/c'ed, started Invega. D/c'd Invega 2/ worse weakness For the past 2 weeks [...] in gait per mom Subjective worsening per patient Significant headache, intractable headache, has Photophobia, Has Nausea, and Vomiting, / headache, pounding in quality, lasts about 24 [...] seen Dr. Renee for MS f/u in 05/2017. Receiving Ocrevus Infusion- first infusion 10/2016, MRI 06/2017 is stable 01/16/2018 No MS relapse/ dz progression, receives Ocrevus Infusion, lab work in 10/2017 stable, reports balance problems when climbing stairs ROS Pain R facial pain and Right leg pain- inactive Sz None since 2007- stable on Zonisamide Sens occ LUE numbness, tingling, only when non-adherence to baclofen / at night BARCENAS Headache of migrainous type, intractable, receiving Botox injections and Imitrex prn Gait No Falls, frequent stumbling, trouble walking in the dark and uneven ground, balance problems climbing downstairs Vision No change, no diplopia, no blurriness No urgency, nocturia, has UTI- on Antibiotics now (Cipro rxed by OBGYN) GI Qod BM, did not pursue c'scopy for ? Crohn Mood better, denies SIbenoit QOMO, under psyc care, stable on current medications, receives CBT with Dr. Brittanie Ortiz Cogn Needs to make shopping lists, forgets appointments, mother is legal guardian Does not forget to turn the stove/water off, no longer drives Sleep To bed [id number], asleep fast, wakes 0630 Wakes up refreshed, + snoring, no PLMS, RLS Fatigue some, naps sometimes help Heat Sensitive, lost cooling vest obgyn Sexually not active, not in relationship PE Vitals: 01/16/18 1043 BP: 120/78 Pulse: 78 Temp: 96.8 ??F (36 ??C) Weight: 145 lb (65.8 kg) Height: 5' 5 (1.651 m) General : plesant HEENT: Head normocephalic and [...] 03/04 8.0 06/03 6.5 10/03 5.6 01/03 LABS 06/28 CMP B12 432, D 58.8, [...] HBsAg NR HcAb NR 03/04 HIV NR MRI 05/29 Sl interval decrease in prominence [...] No evidence of optic neuritis. MRI 06/2017 IMPRESSION: ?? 1. Grossly unchanged diffuse supra and infratentorial [...] RRMS, stable - On Ocrelizumab since 10/2016, now stable, received last infusion on 10/26/17, next infuison schediled on 05/03/2018. - MRI in 06/2017 - no active demyelination - will monitor yearly MRI - Advise CBC, CMP Q 3 months, standing order for [facility] given Gait disorder/ balance problems - Speed, quality much improved since started Ocrevus - Referral to PT - Not a candidate for Ampyra 2/2 to seizures d/o Seizures, stable - Zonisamide at 400 mg HS, continue same Vit D Deficiency - levels in 02/2017 was 41 - Continue Vit D 5000 u QD Spasms/ spasticity -Stable on Baclofen 10 mg BID Migraine Headaches - Follow up with Dr. Haywood for Botox injection as scheduled Flu shots - receives yearly, has not received yet for this year, planning to get one soon F/U in 3 months. Alesia Vazquez, MSN, WELL POINT PUMPING SUPERVISOR-C Department of Neurology documented in this encounter Plan of Treatment Upcoming Encounters Date Type Department Care Team (Late st Contact Info) Description 04/04/2024 8:30 AM ASSEMBLER GOLF WOOD HEAD Office Visit [facility] - Dermatology [address] [place] [phone] Marlys Zaragoza MD [address] [place] [address] 3 [place] [phone] 09/03/2024 9:00 AM CDT Office Visit [facility] - Neurology [address] [place] [phone] Melissa Crook APRN-NAIF [address] [place] [phone] documented as of this encounter Visit Diagnoses Diagnosis MS (multiple sclerosis) (HCC)- Primary Multiple sclerosis Impaired functional mobility, balance, gait, and endurance Medication monitoring encounter Encounter for therapeutic drug monitoring Intractable chronic 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 without status migrainosus Chronic migraine without aura, with intractable migraine, so stated, without mention of status migrainosus Spasticity Abnormal involuntary movements High risk medication use Encounter for long-term (current) use of other medications Vitamin D deficiency documented in this encounter Care Teams Watch And Clock Repairer Relationship Specialty Start Date End Date Lauren Saba APRN-BRANDING SPECIALIST [address] [place] [phone] PCP - General 01/14/18 05/10/23 documented as of this encounter
--- OUTSIDE RECORDS SUMMARY | 2024-03-22 16:40 | XMS_ITS | Encounter Summary ---
Author Organization [facility] Health Address [address] [facility] [address] Care Team Providers Care Costing Manager Name Role Phone Michael Palm MD Primary Care Provider [phone] Encounter Details Date Type Department Care Team (Latest Contact Info) Description 02/05/2017 Hospital Outpatient Visit Historic [facility] OUTPATIENT SERVICES [address] [place] [phone] Devan Renee MD [address] [place] [address] 1L [place] [phone] Discharge Disposition: Home or Self Care Social [...] st Contact Info) Description 04/04/2024 8:30 AM TRIAGE REGISTER NURSE Office Visit [facility] Dermatology [address] [facility], [place] [phone] Marlys Zaragoza MD [facility] 3L [place] [phone] 09/03/2024 9:00 AM CDT Office Visit [facility] - [facility] [address] [facility] [place] [phone] Melissa Crook APRN-REFINERY OPERATOR REFORMING UNIT [address] [place] [phone] documented as of this encounter Visit Diagnoses Not on filedocumented in this encounter Care Teams Costing Manager Relationship Specialty Start Date End Date Michael Palm MD [address] [place] [address] [address] [place] [address] PCP - General Internal Medicine 01/31/16 06/25/17 documented as of this encounter
--- OUTSIDE RECORDS SUMMARY | 2024-03-22 16:40 | XMS_ITS | Encounter Summary ---
Author Organization [facility] Address [address] [place] [address] Care Team Providers Care Specimen Technician Name Role Phone Lauren Saba Jose Eduardo KNOX-INVOICING SPECIALIST Primary Care Provider Encounter Details Date Type Department Care Team (Late Contact Info) Description 05/02/2018 Orders Only [facility] [address] [place] [address] Deja Godinez, PharmD [address] [place] [address] Social History Tobacco Use Types Packs/Day Years [...] (Late Contact Info) Description 04/04/2024 8:30 AM CHEMICAL ANALYST Office Visit [facility] [address] [place] [address], [place] [phone] Marlys Zaragoza MD [address] [place] [address] [address] [place] [address] 09/03/2024 9:00 AM CDT Office Visit [facility] [address] [facility], [place] [address] Melissa Crook, CARPENTER'S HELPER-INVOICING SPECIALIST [address] [place] [phone] documented as of this encounter Visit Diagnoses Not on filedocumented in this encounter Care Teams Specimen Technician Relationship Specialty Start Date End Date Lauren Saba APRN-INVOICING SPECIALIST [address] [place] [phone] PCP - General 01/14/18 05/10/23 documented as of this encounter
--- OUTSIDE RECORDS SUMMARY | 2024-03-22 16:40 | XMS_ITS | Encounter Summary ---
Author Organization [facility] Address [address] [place] [address] Care Team Providers Care Final Canoe Inspector Name Role Phone Michael Palm MD Primary Care Provider [phone] Encounter Details Date Type Department Care Team (Latest Contact Info) Description 02/25/2016 Hospital Outpatient Visit [facility] [address] [place] [address] Discharge Disposition: Home or Self Care Social [...] Sign Reading Time Taken Comments Blood Pressure 123/85 02/25/2016 9:40 AM CONSTRUCTION EXECUTIVE Pulse 84 02/25/2016 9:40 AM CONSTRUCTION EXECUTIVE Temperature 36.3 ??C (97.4 ??F) 02/25/2016 9:40 AM CS T Respiratory Rate 22 02/25/2016 9:40 AM CONSTRUCTION EXECUTIVE Oxygen Saturation 100% 02/25/2016 9:40 AM CONSTRUCTION EXECUTIVE Inhaled Oxygen Concentration - - Weight - - Height - - Body Mass Index - - documented in this encounter Plan of Treatment Upcoming Encounters Date Type Department Care Team (Late st Contact Info) Description 04/04/2024 8:30 AM CONSTRUCTION EXECUTIVE Office Visit [facility] [address] [place] [address], [place] [phone] Marlys Zaragoza MD [address] [facility] 3L [place] [phone] 09/03/2024 9:00 AM CDT Office Visit [facility] [address] [place] [address], [place] [phone] Melissa rCook, LISETTE-CUT PLUG PACKER [address] [place] [phone] documented as of this encounter Visit Diagnoses Not on filedocumented in this encounter Care Teams Final Canoe Inspector Relationship Specialty Start Date End Date Michael Palm MD [address] [place] [address] [address] [place] [address] PCP - General Internal Medicine 01/31/16 06/25/17 documented as of this encounter
--- OUTSIDE RECORDS SUMMARY | 2024-03-22 16:40 | XMS_ITS | Encounter Summary ---
Author Organization [facility] Address [address] [facility] [place] [address] Care Team Providers Care Communication Analyst Name Role Phone Jose Whyte MD Primary Care Provider Unavail able Reason for Referral * Radiology Services (Routine) - Closed Specialty Diagnoses / Procedures Referred By Contac t Referred To Contact MRI Diagnoses Multiple sclerosis (HCC) Procedures MRI THORACIC SPINE WWO Devan Horner MD [address] [place] [address] [address] Referral ID Status Reason Start Date Expiration Date Visits Re quested Visits Authorized [id number] Closed 06/21/2017 12/18/2017 1 1 Reason for Visit * Radiology Services (Routine) - Closed Specialty Diagnoses / Procedures Referred By Contac t Referred To Contact MRI Diagnoses Multiple sclerosis (HCC) Procedures MRI THORACIC SPINE WWO Devan Horner MD [address] [facility] [address]L [place] [address] [facility] Mri [facility] [place] [address] Referral ID Status Reason Start Date Expiration Date Visits Re quested Visits Authorized [id number] Closed 06/21/2017 12/18/2017 1 1 Encounter Details Date Type Department Care Team (Latest Contact Info) Description 07/12/2017 7:45 AM CDT - 07/12/2017 11:59 PM CDT Hospital Encounter [facility] MRI [address] [place] [phone] Devan Renee MD [address] [place] [phone] Discharge Disposition: Home or Self Care Social [...] Sig Dispensed Refills Start Date End Date MERLELIMIGUE MAINTENA 300 MG injection Inject 1 syringe into muscle every 28 days 4 05/29/2017 08/23/2017 acetaminophen (TYLENOL) 325 MG tablet Take 650 mg by mouth every 4 hours as needed for Pain 09/13/2016 07/18/2017 acetaminophen-codeine (TYLENOL #3) 300-30 MG tablet Take 1-2 tablets by mouth Every 4-6 hours as needed 0 03/21/2017 07/18/2017 albuterol HFA (PROVENTIL;VENTOLIN;PRO AIR) 108 (90 BASE) MCG/ACT inhaler Inhale 2 Puffs by mouth every 6 hours 03/05/2014 04/11/2021 Albuterol Sulfate (PROAIR RESPICLICK) 108 (90 BASE) MCG/ACT Inhale 2 puffs by mouth Every 4-6 hours as needed 07/18/2017 baclofen (LIORESAL) 10 MG tablet TAKE 1 TABLET BY MOUTH TWICE DAILY 09/03/2015 10/10/2017 benzocaine-menthol (CEPACOL) 15-3.6 MG lozenge Take 1 lozenge by mouth every 4 hours as needed 07/18/2017 benzoyl peroxide (BENZAC) 10 % wash 05/22/2017 8 benztropine (COGENTIN) 1 MG tablet Take 1 tablet by mouth 2 times daily 60 tablet 2 06/28/2017 08/23/2017 budesonide-formoterol (SYMBICORT) 160-4.5 MCG/ACT inhaler Inhale 2 puffs by mouth 2 times daily 11/16/2016 07/18/2017 budesonide-formoterol (SYMBICORT) 160-4.5 MCG/ACT inhaler 11/02/2015 10/03/2018 calcium carbonate (TUMS) 500 MG chew tablet Take 500 mg by mouth as needed for GI Upset 09/13/2016 01/27/2019 chlorhexidine (PERIDEX) 0.12 % solution Swish and spit 15 mL 2 times daily For 30 seconds 0 03/21/2017 10/10/2017 Cholecalciferol 2000 UNITS Take 4,000 Units by mouth once daily 02/21/2017 10/10/2017 erythromycin (ERYDERM) 2 % solution 05/22/2017 07/18/2017 fluticasone propionate (FLONASE) 50 MCG/ACT nasal spray Midvale 1 [place]vale into the nose 03/05/2014 04/11/2021 hydrOXYzine hcl (ATARAX) 25 MG tablet Take 25 mg by mouth 2 times daily as needed for Anxiety 03/20/2017 08/23/2017 ibuprofen (MOTRIN) 600 MG tablet Take 1 tablet by mouth every 6 hours as needed 1 06/02/2017 04/15/2018 ibuprofen (MOTRIN) 800 MG tablet Take 1 tablet by mouth every 8 hours as needed 11/07/2016 07/18/2017 LORazepam (ATIVAN) 2 MG tablet 05/23/2017 08/23/2017 melatonin 3 MG tablet Take 6 mg by mouth at bedtime 09/08/2016 10/10/2017 metFORMIN (GLUCOPHAGE) 500 MG tablet Take 500 mg by mouth 2 times daily 05/17/2017 08/23/2017 natalizumab 300 mg in 0.9% NaCl 0.9 % 100 mL 10/10 onabotulinumtoxin A (BOTOX) 100 UNITS injection Inject 200 Units into muscle Every 90 days 04/18/2017 01/14/2018 penicillin v potassium (VEETIDS) 500 MG tablet Take 1 tablet by mouth every 6 hours 0 03/21/2017 07/18/2017 raNITIdine (ZANTAC) 150 MG tablet Take 1 tablet by mouth 2 times daily as needed 01/10/2017 01/27/2019 SUMAtriptan (IMITREX) 50 MG tablet 07/18/2017 topiramate (TOPAMAX) 200 MG tablet TAKE ONE TABLET BY MOUTH TWICE DAILY 06/07/2015 07/18/2017 tretinoin (RETIN-A) 0.05 % cream 05/22/2017 11/20/2017 vitamin D3 (CHOLECACIFEROL) 5000 UNITS Take 1 Tab by mouth 03/05/2015 10/11/19 zonisamide (ZONEGRAN) 100 MG capsule Take 400 mg by mouth at bedtime 05/23/2017 01/14/2018 documented as of this encounter Plan of Treatment Upcoming Encounters Date Type Department Care Team (Late st Contact Info) Description 04/04/2024 8:30 AM HAND ETCHER HELPER Office Visit [facility] Dermatology [address] [place] [phone] Marlys Zaragoza MD [address] [place] [address] [place] [phone] 09/03/2024 9:00 AM CDT Office Visit [facility] - Neurology [address] [place] [phone] Melissa Crook, PAINT STRIPING MACHINE OPERATOR-INSTRUCTIONAL COACH [address] [place] [phone] documented as of this encounter Procedures Procedure Name Priority Date/Time Associated Diagnosis Comments MRI THORACIC SPINE WWO CONT Routine 07/12/2017 8:59 AM CDT Multiple sclerosis (HCC) documented in this encounter Results * MRI THORACIC SPINE WWO CONT (07/12/2017 8:59 AM CDT) Anatomical Region Laterality Modality Spine Magnetic Resonan ce 07/12/2017 9:07 AM CDT Impressions 07/12/2017 10:56 AM CDT IMPRESSION: 1. No evidence of disease progression or active demyelination identified in the thoracic cord. This report was approved ??by Abel Ball ?? on 07/12/2017 10:03 AM . I, Dr. KENNY BRODY have personally reviewed and interpreted this examination/study. This report was electronically signed by KENNY BRODY ??on 07/12/2017 10:56 AM . Narrative 07/12/2017 10:56 AM CDT EXAMINATION: Magnetic resonance imaging (MRI) of the thoracic spine without and with contrast HISTORY: Multiple sclerosis TECHNIQUE: MRI of the thoracic spine was performed prior to and following the uneventful administration of 14 mL MultiHance intravenous gadolinium contrast according to standard protocol. FINDINGS: Comparison is made with a study from 10/12/2016 The alignment is normal. Vertebral bodies are normal in height without evidence of compression fractures. Marrow signal intensity is normal. Intramedullary T2 hyperintensities are seen at multiple levels in the thoracic spine, most pronounced in the mid to lower thoracic spine, consistent with demyelinating plaques, unchanged from the prior examination. No abnormal enhancement to suggest active demyelination is identified. There is mild multilevel degenerative disc disease with disc bulges at T4-5, T5-6, and T8-9, similar in appearance the prior examination. No central canal stenosis is seen. The facets appear normal. No neural foraminal stenosis is seen. No soft tissue abnormality is identified. Procedure Note Kenny Infante MD - 07/12/2017 EXAMINATION: Magnetic resonance imaging (MRI) of the thoracic spine without and with contrast HISTORY: Multiple sclerosis TECHNIQUE: MRI of the thoracic spine was performed prior to andfollowing the uneventful administration of 14 mL MultiHance intravenous gadolinium contrast according to standard protocol. FINDINGS: Comparison is made with a study from 10/12/2016 The alignment is normal. Vertebral bodies are normal in height without evidence of compression fractures. Marrow signal intensity is normal. Intramedullary T2 hyperintensities are seen at multiple levels in the thoracic spine, most pronounced in the mid to lower thoracic spine, consistent with demyelinating plaques, unchanged from the prior examination. No abnormal enhancement to suggest active demyelination is identified. There is mild multilevel degenerative disc disease with disc bulges at T4-5, T5-6, and T8-9, similar in appearance the prior examination. No central canal stenosis is seen. The facets appear normal. No neural foraminal stenosis is seen. No soft tissue abnormality is identified. IMPRESSION: 1. No evidence of disease progression or active demyelination identified in the thoracic cord. This report was approved by Abel Ball on 07/12/2017 10:03 AM . I, Dr. KENNY BRODY have personally reviewed and interpreted this examination/study. This report was electronically signed by KENNY BRODY on07/12/2017 10:56 AM . Devan Renee MD MR ORDERABLES documented in this encounter Visit Diagnoses Diagnosis Multiple sclerosis (HCC) Multiple sclerosis documented in this encounter Administered Medications Inactive Administered Medications - up to 3 most recent administrations Medication Order MAR Action Action Date Dose Rate Site gadobenate dimeglumine (MULTIHANCE) injection Intravenous, CONTRAST ONCE, Starting on Yaa 07/12/17 at 0757, Until 07/13/17 at 0125 $ Given - Contrast 07/12/2017 8:50 AM CDT 14 mL documented in this encounter Care Teams Communication Analyst Relationship Specialty Start Date End Date Jose Whyte MD PCP - General 06/26/17 07/17/17 documented as of this encounter
--- OUTSIDE RECORDS SUMMARY | 2024-03-22 16:40 | XMS_ITS | Encounter Summary ---
Author Organization [facility] Health Address [address] [place] [address] Care Team Providers Care Sales Team Manager Name Role Phone Jose Whyte MD Primary Care Provider Unavail able Reason for Visit * Reason Onset Date Comments Botox 06/29/2017 Est botox pt Encounter Details Date Type Department Care Team (Late st Contact Info) Description 06/29/2017 Telephone [facility] [address] [place] [address] Carolee Lowe Botox (Est botox pt) Social History Tobacco Use Types Packs/Day Years Used Date Smoking Tobacco: Never Assessed Sex and Gender Information Value Date Recorded Sex Assigned at Female 06/22/2023 9:58 AM CDT Gender Identity Female 06/22/2023 9:58 AM CDT Sexual Orientation Straight 06/22/2023 9: 58 AM CDT documented as of this encounter Miscellaneous Notes * Telephone Encounter - Carolee Lowe - 06/29/2017 11:20 AM CDT Jessica Date: ?07/18/17 @ 10:00 am ?? 07/05/17: APPROVED! ? [employer]: Auth #[id number] (07/02/17 - 10/01/17) Good for only 1 visit Provider: Mckayla Haywood Units: ??200 units Dx & CPT Codes: ??G43.719 / J0585 ??62223 Last inj: 04/18/17? Fax form to [facility] documented in this encounter Plan of Treatment Upcoming Encounters Date Type Department Care Team (Late st Contact Info) Description 04/04/2024 8:30 AM DELTA SYSTEM FREIGHT CAR CLEANER Office Visit [facility] D[facility] [address] [place] [address], [place] [phone] Marlys Zaragoza MD [address] [place] [address] [place] [phone] 09/03/2024 9:00 AM CDT Office Visit [facility] - Neurology [address] [place] [address], [place] [phone] Melissa Crook, LISETTE-DISTILLERY SUPERVISOR [address] [place] [address] documented as of this encounter Visit Diagnoses Not on filedocumented in this encounter Care Teams Sales Team Manager Relationship Specialty Start Date End Date Jose Whyte MD PCP - General 06/26/17 07/17/17 documented as of this encounter
--- OUTSIDE RECORDS SUMMARY | 2024-03-22 16:40 | XMS_ITS | Encounter Summary ---
Author Organization [facility] Address [address] [facility] [address] Care Team Providers Care Director Supplier Quality Name Role Phone Michael Palm MD Primary Care Provider [phone] Encounter Details Date Type Department Care Team (Latest Contact Info) Description 11/12/2015 Hospital Outpatient Visit [facility] [address] [place] [address] Simon Carcamo MD [address] [place] [address] Discharge Disposition: Home or Self Care Social [...] st Contact Info) Description 04/04/2024 8:30 AM ROOF BOLTING COAL MINER Office Visit [facility], [place] [phone] Marlsy Zaragoza MD [address] [place] [address] 3 [place] [phone] 09/03/2024 9:00 AM CDT Office Visit [facility] [address] [facility] [place] [address] Melissa Crook APRN-REHABILITATION COORDINATOR [address] [place] [phone] documented as of this encounter Visit Diagnoses Not on filedocumented in this encounter Care Teams Director Supplier Quality Relationship Specialty Start Date End Date Michael Palm MD [address] [place] [address] [address] [place] [address] PCP - General Internal Medicine 01/31/16 06/25/17 documented as of this encounter
--- OUTSIDE RECORDS SUMMARY | 2024-03-22 16:40 | XMS_ITS | Encounter Summary ---
Author Organization [facility] Health Address [address] [place] [address] Care Team Providers Care Orchid Superintendent Name Role Phone Michael Palm MD Primary Care Provider Encounter Details Date Type Department Care Team (Late st Contact Info) Description 05/07/2015 Emergency Department Historic [facility] EMERGENCY DEPARTMENT [address] [place] [address] Rohan Singh MD [facility] [facility] [place] [place] [address] Discharge Disposition: Home or Self [...] Sign Reading Time Taken Comments Blood Pressure 130/86 05/07/2015 3:18 PM PULP DRIER FIRER Pulse 91 05/07/2015 3:18 PM PULP DRIER FIRER Temperature 36.3 ??C (97.3 ??F) 05/07/2015 8:08 AM CS T Respiratory Rate 16 05/07/2015 1:28 PM PULP DRIER FIRER Oxygen Saturation 99% 05/07/2015 3:18 PM PULP DRIER FIRER Inhaled Oxygen Concentration - - Weight - - Height - - Body Mass Index - - documented in this encounter Consult Notes * Sasha Modi MD - 05/07/2015 12:10 PM CST Consults Signed by Sasha Modi MD on 05/08/2015 9:42 AM Author: Sasha Modi MD Service: Neurology Author Type: Physician Date of Service: 05/07/2015 12:10 PM Filed: 05/08/2015 9:42 AM Note Type: Consults Status: Signed Display Manager: Sasha Modi MD (Physician) Related Notes: Original Note by Evens Campos DO (Resident) filed at 05/07/2015 1:57 PM Neurology Initial Consult Note Date of Encounter: 05/07/15 Reason For Consult: Generalized weakness HPI: 34 yo female w/ hx of RRMS (diagnosed in 2005), anxiety, asthma, possible schizophrenia, and seizures presents to ED with complaints of generalized weakness. Today, pt went to pharmacy to fill her topamax prescription, but pharmacy said it was filled two days ago by someone else. She went to different pharmacy where pharmacist sold her two tablets of topamax. Pharmacist call ambulance because shewas acting funny . Pt unable to further elaborate, but she denies any LOC. Neurology has been consulted for worsening generalized weakness moreso on right side. Symptoms first started since receiving haldol 100mg x 1 on 04/26 at [facility]. Per pt, brother (research chemist) gave her haldol because s he had suicidal ideations about 3 months ago. Pt also complaining of tingling and numbness in lowerextremities as well as binocular blurry vision and facial weakness with pooling of saliva. Denies any dysphagia. Pt has not had tysabri for last 2 months due to insurance. She is followed by Dr. Carcamo for her MS. She was seen on 05/02 by Neurology with exact same neurological complaints and MRI brain was done which showed no active disease. Mother called ER stating that pt has been having paranoid delusions lately and refuses to see her psychiatrist. She is also suffering from severe depression, but denies any HI/SI. Denies any visual/auditory hallucinations, drug use, or ETOH abuse. Psychiatry has been consulted. She is reportedly followed by Dr. Horacio Avitia. ROS: All negative except per HPI Allergies: No Known Allergies Home Medications: No [...] narrative on file Physical Exam: Filed Vitals: 05/07/15 1000 05/07/15 1018 05/07/15 1100 05/07/15 1138 BP: 151/86 138/81 Pulse: 87 82 94 86 Temp: TempSrc: Resp: SpO2: 100% 100% 100% 100% General: Flat affect, cooperative, overweight HEENT: Head normocephalic and atraumatic, mucous membranes moist, oropharynx clear of exudate or significant inflammation Heart: Regular rate and rhythm without murmur Lungs: Clear to auscultation bilaterally Abdomen: Non-tender, non-distended Extremities: No cyanosis or edema noted Neuro Exam: Mental Status: Awake, alert oriented to person, place, and time, attention maintained throughout the exam, speech fluent and spontaneous with intact comprehension, repetition, and no noted dysarthria. Slowed speech and delayed responses Cranial Nerves: VFF to finger counting, PERRL, EOMI, facial sensation intact and symmetric to LT, facial expression intact and symmetric, hearing intact to finger rub bilaterally, symmetric palate elevation, shoulder shrug intact and symmetric, tongue protrudes midline without fasciculation or atrophy Motor: No abnormal movements noted during exam, tone normal in all 4 extremities Strength Deltoid Triceps Biceps Workforce Consultant Iliopsoas Hamstring Quadriceps TA EHL R 4-/5 4-/5 4-/5 4-/5 4-/5 4-/5 4-/5 4/5 4/5 L 5/5 5/5 5/5 5/5 5/5 5/5 4/5 4/5 4/5 Reflexes: 1+ reflexes noted in KJ, AJ, 2+ BR, BJ, TJ. Plantar reflex was flexor B/L Sensory: Sensation intact in all 4 extremities to LT except slightly decreased on R ankle Cerebellar: FNF, HKS, BERNICE, intact with no evidence of dysmetria Gait and Station: Gait slowed, but stable. Able to stand on one leg, unable to tandem Labs: Lab Results Component Value Date WBC 10.9* 05/07/2015 HGB 13.6 05/07/2015 HCT 40.2 05/07/2015 PLT 295 05/07/2015 ALT 30 05/07/2015 AST 16 05/07/2015 ALKPHOS 64 05/07/2015 TBILI 0.3 05/07/2015 NA 139 05/07/2015 K 3.6 05/07/2015 CL 109* 05/07/2015 CREATININE 0.7 05/07/2015 BUN 19 05/07/2015 CO2 22 05/07/2015 TSH 0.765 02/11/2014 GLU 99 05/07/2015 No results found for this basename: PHENYTOIN, PHENOBARB, VALPROATE, CBMZ Other Studies: MRI (05/02): 1. No evidence of disease progression or active demyelination in the brain or thoracicspine. 2. Incomplete evaluation of the cervical spine due to motion artifact obscuring the spinal cord. Assessment: 34 yo female w/ hx of RRMS, psychiatric disorder, and seizures presents with worsening generalized weakness, paranoid delusions, and depression. Workup on 05/02 showed no active MS lesions and was likely not exacerbation. Presentation today is exact same and likely not an acute neurological issue. Plan: - Check UA, UDS - No acute neurological issues at this time - Consult psych for paranoid delusions and depression management - Recommend for evaluation from psych to see if patient needs inpatient psych treatment or if it issafe and able to return home with her mother. If patient does not feel safe to return home, please call Neurology as we will provide admission for social work arrangements - Instruct patient to call Neurology Clinic for further instructions on how to proceed with tysabritreatment Patient seen, examined, and case findings discussed with Dr. Welch, Neurology Attending. Evens Campos DO Neurology Resident 05/07/2015 Pager - [phone] Attending Note: Patient seen and examined with Dr. Campos. I confirm the history, physical findings, assessment, and plan as documented. My additions and/or exceptions are noted below: 34 year-old morbidly obese woman with RRMS and epilepsy on topamax was brought in by ems after her pharmacist found her not acting herself . She denies any hallucination/delusion, had er visit 4 days ago for similar complaint, had a repeat MRI which showed some residual finding with no active/new demyelination. Her findings were communicated with Dr. Carcamo and he wants to see her as OP in MS clinic. She is living with her brother and wants to move in with her mother in a few days.Exam, not making eye contact, affect is flat, alternative financing specialist are intact, AOX3, muscle strength is full, gait is slow. Needspsych eval and if OK from psych stand point and if her mother/brother are OK with taking care of her, she can be discharged with MS Clinic follow up, otherwise she needs admission. Will follow. Sasha Modi MD., PhD. DRIER FIRER documented in this encounter Plan of Treatment Upcoming Encounters Date Type Department Care Team (Late st Contact Info) Description 04/04/2024 8:30 AM PULP DRIER FIRER Office Visit [facility] - Dermatology [address] [place] [address], [place] [phone] Marlys Zaragoza MD [address] [place] [address] [address] [place] [phone] 09/03/2024 9:00 AM CDT Office Visit [facility] - Neurology [address] [place] [phone] Melissa Crook, LISETTE-RATOPRINTER [address] [place] [phone] documented as of this encounter Procedures Procedure Name Priority Date/Time Associated Diagnosis Comments HCG URINE QUALITATIVE - POCT (IP) [facility] Routine 05/07/2015 4:12 PM PULP DRIER FIRER URINALYSIS REFLEX TO MICROSCOPIC NO CULTURE STAT 05/07/2015 3:17 PM PULP DRIER FIRER DRUG ABUSE PANEL 10-20+ETHANOL URINE NO CONFIRM STAT 05/07/2015 3:16 PM PULP DRIER FIRER CBC W AUTO DIFFERENTIAL STAT 05/07/2015 8:43 AM PULP DRIER FIRER CBC W AUTO DIFFERENTIAL STAT 05/07/2015 8:43 AM PULP DRIER FIRER COMPREHENSIVE METABOLIC PANEL STAT 05/07/2015 8:43 AM PULP DRIER FIRER documented in this encounter Results * HCG URINE QUALITATIVE - POCT (IP) [facility] (05/07/2015 4:12 PM PULP DRIER FIRER) Test Urine neg [facility] Urine specimen (specimen) 05/07/2015 4:12 PM PULP DRIER FIRER Rubén Adams MD LAB - POINT OF CARE ORDERABLES [facility] * (ABNORMAL) URINALYSIS REFLEX TO MICROSCOPIC NO CULTURE (05/07/2015 3:17 PM PULP DRIER FIRER) Color UA Yellow Straw, Yellow, Colorless, Light Yellow [facility] Clarity UA Hazy(A) Clear [facility] Specific Ericson UA 1.014 1.001 - 1.030 [facility] pH UA 7.0 5.0 - 8.0 [facility] Protein UA Negative <=20 mg/dL [facility] Glucose UA Negative Negative mg/dL [facility] Ketone UA Negative Negative mg/dL [facility] Bilirubin UA Negative Negative mg/dL [facility] Blood UA Negative Negative [facility] Nitrite UA Negative Negative [facility] Leukocyte Esterase Moderate(A) Negative [facility] Urobilinogen UA <2.0 <2.0 mg/dL [facility] RBC UA 6 0 - 8 /HPF [facility] WBC UA 2 0 - 2 /HPF [facility] Bacteria UA Few(A) Rare, Occasional, None /HPF [facility] Squamous Epithelial Cells UA 21(H) 0 - 1 /HPF [facility] Mucus UA Moderate(A) None /LPF [facility] Urine specimen (specimen) 05/07/2015 3:17 PM PULP DRIER FIRER 05/07/2015 3:22 PM PULP DRIER FIRER Rubén Adams MD LAB - URINALYSIS ORD ERABLES [address] [phone] * DRUG ABUSE PANEL 10-20+ETHANOL URINE NO CONFIRM (05/07/2015 3:16 PM PULP DRIER FIRER) Amphetamines Screen Urine Negative Negative: < 1000 ng/mL [facility] Barbiturates Screen Urine Negative Negative: < 200 ng/mL [facility] Benzodiazepine Screen Urine Negative Negative: < 200 ng/mL [facility] Opiates Urine Negative Negative: < 300 ng/mL [facility] Cocaine Metabolites Urine Negative Negative: < 300 ng/mL [facility] Phencyclidine Screen Urine Negative Negative: < 25 ng/ml [facility] Cannabinoids Screen Urine Negative Negative: <50 ng/mL [facility] Methadone Screen Urine Negative Negative: < 300 ng/mL [facility] Urine specimen (specimen) 05/07/2015 3:16 PM PULP DRIER FIRER 05/07/2015 3:22 PM PULP DRIER FIRER Narrative [facility] - 05/07/2015 3:38 PM PULP DRIER FIRER The Urine Toxicology Screening Panel does not screen for Propoxyphene, Meprobamate, Carisoprodol, Trazodone, umhz-oth-jpoctgp medications and/or volatiles (Acetone, Isopropanol, Methanol or Ethylene Glycol). Ethanol, Salicylate, Acetaminophen, Tricyclic Antidepressants and several therapeutic drugs may be individually assayed in serum or plasma specimen. Toxicology testing by the [facility] is an aid to medical diagnosis and treatment of patients. No documented chain of custody was maintained. Results are intended to be used for clinical purposes only. ? Rubén Adams MD LAB - URINE CHEMISTR Y ORDERABLES [facility] [address] [place] [address], [facility] [phone] * (ABNORMAL) COMPREHENSIVE METABOLIC PANEL (05/07/2015 8:43 AM PULP DRIER FIRER) BUN 19 7 - 26 mg/dL [facility] Creatinine 0.7 0.6 - 1.2 mg/dL [facility] Sodium 139 136 - 145 mmol/L [facility] Potassium 3.6 3.5 - 4.5 mmol/L [facility] Chloride 109(H) 98 - 107 mmol/L [facility] CO2 22 22 - 29 mmol/L [facility] Glucose 99 70 - 115 mg/dL [facility] Calcium 9.1 8.4 - 10.2 mg/dL [facility] Protein Total 6.5 6.0 - 8.3 g/dL [facility] Albumin 3.8 3.4 - 5.0 g/dL [facility] Bilirubin Total 0.3 0.2 - 1.2 mg/dL [facility] Alkaline Phosphatase 64 40 - 150 Units/L [facility] ALT 30 0 - 55 Units/L [facility] AST 16 5 - 34 Units/L [facility] Anion Gap 12 8 - 18 [facility] BUN/Creatinine Ratio 27(H) 7 - 23 [facility] Osmolality Calculated 276 270 - 300 mOsm/kg [facility] Albumin/Globulin Ratio 1.4 1.1 - 2.3 [facility] eGFR >60 >60 mL/min/1.7 3 m2 [facility] Blood specimen (specimen) BLOOD SPECIMEN / Unknown 05/07/2015 8:43 AM PULP DRIER FIRER 05/07/2015 8:48 AM PULP DRIER FIRER Rubén Adams MD LAB - CHEMISTRY ORDE DILIA [facility] Organization Address City/State/ZIP Co de Phone Number [address] [phone] * CBC W AUTO DIFFERENTIAL (05/07/2015 8:43 AM PULP DRIER FIRER) Blood specimen (specimen) BLOOD SPECIMEN / Unknown 05/07/2015 8:43 AM PULP DRIER FIRER Narrative [facility] - 05/07/2015 8:52 AM PULP DRIER FIRER The following orders were created for panel order CBC w Differential. Procedure ? Abnormality ? Status ? --------- ? ------ ? CBC WITH DIFFERENTIAL[[id number]] ? Abnormal ?Final result ? Please view results for these tests on the individual orders. Rubén Adams MD LAB - HEMATOLOGY ORD [facility] Performing Organization Address City/State/[facility] Co de Phone Number [facility] [address] * (ABNORMAL) CBC W AUTO DIFFERENTIAL (05/07/2015 8:43 AM PULP DRIER FIRER) WBC 10.9(H) 3.5 - 10.5 10? 3 /uL [facility] RBC 4.52 3.90 - 5.00 10? 6 /uL [facility] Hemoglobin 13.6 12.0 - 15.5 g/dL [facility] Hematocrit 40.2 35.0 - 45.0 % [facility] MCV 88.9 81.0 - 97.0 fL [facility] MCH 30.1 28.0 - 34.0 pg [facility] MCHC 33.8 32.0 - 36.0 g/dL [facility] Platelet Count 295 150 - 400 10? 3 /uL [facility] RDW-SD 43.8 36.0 - 50.0 fL [facility] RDW-CV 13.5 11.2 - 14.8 % [facility] MPV 9.0(L) 9.3 - 12.8 fL [facility] nRBC Absolute 0.00 0 10? 3 /uL [facility] nRBC Auto 0.0 0 /100 WBC [facility] Neutrophils % 59.1 35.0 - 70.0 % [facility] Lymphocytes % 24.8 19.7 - 55.1 % [facility] Monocytes % 7.9 3.0 - 15.0 % [facility] Eosinophils % 7.5(H) 0.0 - 6.0 % [facility] Basophil % 0.7 0.0 - 1.5 % [facility] Neutrophils Absolute 6.4 1.6 - 7.0 10? 3 /uL [facility] Lymphocyte Absolute 2.7 0.8 - 2.9 10? 3 /uL [facility] Monocytes Absolute 0.86(H) 0.14 - 0.66 10? 3 /uL [facility] Eosinophils Absolute 0.82(H) 0.00 - 0.22 10? 3 /uL [facility] Basophils Absolute 0.08(H) 0.00 - 0.06 10? 3 /uL [facility] Immature Granulocytes % 0.7 0.0 - 1.0 % [facility] Blood specimen (specimen) BLOOD SPECIMEN / Unknown 05/07/2015 8:43 AM PULP DRIER FIRER 05/07/2015 8:48 AM PULP DRIER FIRER Rubén Adams MD LAB - HEMATOLOGY ORD ERABLES Performing Organization Address City/State/[facility] Co de Phone Number [facility] [address] [place] [address] documented in this encounter Visit Diagnoses Diagnosis Multiple sclerosis (HCC) Multiple sclerosis Delusional disorder (HCC) documented in this encounter Care Teams Orchid Superintendent Relationship Specialty Start Date End Date Michael Palm MD [address] [place], [place] [address] [place] [address] PCP - General Internal Medicine 01/31/16 06/25/17 documented as of this encounter
--- OUTSIDE RECORDS SUMMARY | 2024-03-22 16:40 | XMS_ITS | Encounter Summary ---
Author Organization [facility] Health Address [address] [place] [address] Care Team Providers Care Operations Plant Attendant Name Role Phone Lauren Saab LISETTE-BULK SAUSAGE CASING TIER OFF Primary Care Provider Reason for Visit * Reason Comments Botox Encounter Details Date Type Department Care Team (Latest Contact Info) Description 01/14/2018 8:00 AM CDT Procedure visit [facility] Neurology [address] [place] [address] Mauricio Martinez MD [address] [place] [phone] Intractable chronic 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 without status migrainosus ; MS (multiple sclerosis) (HCC); Vitamin D deficiency; High risk medication use; Nonintractable epilepsy without status epilepticus, unspecified epilepsy type (HCC); Mild cognitive impairment; Spasticity Social History Tobacco Use Types Packs/Day Years [...] Sign Reading Time Taken Comments Blood Pressure 103/72 01/14/2018 7:46 AM CDT Pulse 80 01/14/2018 7:46 AM CDT Temperature - - Respiratory Rate - - Oxygen Saturation - - Inhaled Oxygen Concentration - - Weight 66.7 kg (147 lb) 01/14/2018 7:46 AM CDT Height 165.1 cm (5' 5 ) 01/14/2018 7:46 AM CDT Body Mass Index 24.46 01/14/2018 7:46 AM CDT documented in this encounter Progress Notes * Mauricio Martinez MD - 01/14/2018 9:19 AM CDT Here for Botox for chronic migraine Current Outpatient Prescriptions Medication Sig Dispense Refill ??? zonisamide (ZONEGRAN) 100 MG capsule Take 4 capsules by mouth at bedtime 120 capsule 5 ??? baclofen (LIORESAL) 10 MG tablet Take 1 tablet by mouth 2 times daily May cause drowsiness. 60 tablet 5 ??? erythromycin (ERYDERM) 2 % [...] mouth once daily 30 tablet 5 ??? ABILIFY MAINTENA 300 MG injection Inject 1.5 mL into muscle every 28 days 1 Each 5 ??? hydrOXYzine hcl (ATARAX) 25 MG tablet Take 1 tablet by mouth 2 times daily as needed 60 tablet 3 ??? onabotulinumtoxin A (BOTOX) 100 UNITS injection [...] fluticasone propionate (FLONASE) 50 MCG/ACT nasal spray [place] 1 [place] into the nose ??? budesonide-formoterol (SYMBICORT) 160-4.5 MCG/ACT inhaler ??? benztropine (COGENTIN) 0.5 MG tablet Take 1 tablet by mouth 2 times daily (Patient not taking: Reported on 01/14/2018) 60 tablet 2 No current facility-administered medications for this visit. BP 103/72 Pulse 80 Ht 5' 5 (1.651 m) Wt 147 lb (66.7 kg) BMI 24.46 kg/m2 She reports that the sumatriptan recently caused her voice to get hoarse. She does not want take this anymore. We discussed therapeutic options and decided to switch her to Fioricet. Side effects reviewed. I also spoke with her about the new CGRP modulating medications. If she continues to have headachesfrequently then we will start her on one of these medications. documented in this encounter Procedure Notes * Mauricio Martinez MD - 01/14/2018 11:58 AM CDTAssociated Order(s): PROC INJECTION - BOTOX Procedure(s): GA CHEMODENERV MUSC MIGRAINE Pre-Procedure Diagnose(s): Nonintractable epilepsy without status epilepticus, unspecified epilepsytype (HCC) Post-Procedure Diagnose(s): Intractable chronic 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 without status migrainosus Patient's identity confirmed by having patient say first and last name, and date of . Diagnosis: Chronic migraine G 43.709 Chronic migraine without aura, non-intractable, without status migrainosus G 43.719 Chronic migraine without aura,intractable, Without status migrainosus G 43.701 Chronic migraine without aura, Not intractable,, with status migrainosus G 43.711 Chronic migraine without aura, intractable, with status migrainosus Procedure code: 83970 History: Baseline number of headaches per month:20 [...] because side effect. Date of last injection: 10/17/2017 Duration of benefit: Great benefit for 30 [...] for next visit. documented in this encounter Miscellaneous Notes * Addendum Note - Mauricio Martinez MD - 01/14/2018 12:07 PM CDTAddended by: MAURICIO MARTINEZ on: 01/14/2018 12:07 PM Modules accepted: Orders documented in this encounter Plan of Treatment Upcoming Encounters Date Type Department Care Team (Late st Contact Info) Description 04/04/2024 8:30 AM MUFFLER INSTALLER Office Visit [facility] - Dermatology [address] [place] [address], [place] [phone] Marlys Zaragoza MD [address] [place] [address] [address] [place] [phone] 09/03/2024 9:00 AM CDT Office Visit [facility] - Neurology [address] [place] [phone] Melissa Crook, ACCOUNTS PAYABLE ASSOCIATE-BULK SAUSAGE CASING TIER OFF [address] [place] [phone] documented as of this encounter Procedures Procedure Name Priority Date/Time Associated Diagnosis Comments GA CHEMODENERV MUSC MIGRAINE Routine 01/14/2018 12:03 PM CDT Nonintractable epilepsy without status epilepticus, unspecified epilepsy type (HCC) documented in this encounter Results * GA CHEMODENERV MUSC MIGRAINE (01/14/2018 12:03 PM CDT) Narrative Mauricio Martinez MD - 01/14/2018 12:03 PM CDT Mauricio Martinez MD ? 01/14/2018 12:03 PM Patient's identity [...] intractable, with status migrainosus ?? Procedure code: 83018 History: Baseline number of headaches per month:20 [...] treatment. Ordered 200 units for next visit. Mauricio Martinez MD PROCEDURE/MINOR SURG ICAL ORDERABLES documented in this encounter Visit Diagnoses Diagnosis Intractable chronic 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 without status migrainosus- Primary Chronic migraine without aura, with intractable migraine, so stated, without mention of status migrainosus MS (multiple sclerosis) (HCC) Multiple sclerosis Vitamin D deficiency High risk medication use Encounter for long-term (current) use of other medications Nonintractable epilepsy without status epilepticus, unspecified epilepsy type (HCC) Mild cognitive impairment Mild cognitive impairment, so stated Spasticity Abnormal involuntary movements documented in this encounter Administered Medications Inactive Administered Medications - up to 3 most recent administrations Medication Order MAR Action Action Date Dose Rate Site onabotulinumtoxin A (BOTOX) injection 200 Units 200 Units, Injection, ONCE, 1 dose, On 01/14/18 at 0945 $ Given 01/14/2018 12:02 PM CDT 200 Units documented in this encounter Care Teams Operations Plant Attendant Relationship Specialty Start Date End Date Lauren Saba, ACCOUNTS PAYABLE ASSOCIATE-BULK SAUSAGE CASING TIER OFF [address] [place] [phone] PCP - General 01/14/18 05/10/23 documented as of this encounter
--- OUTSIDE RECORDS SUMMARY | 2024-03-22 16:40 | XMS_ITS | Encounter Summary ---
Author Organization [facility] Health Address [address] [place] [address] Care Team Providers Care Potato Chip Cooker Machine Name Role Phone Michael Palm MD Primary Care Provider Encounter Details Date Type Department Care Team (Latest Contact Info) Description 01/08/2015 Hospital Outpatient Visit Historic [facility] [address] [place] [address] Simon Carcamo MD [address] [place] [address] Discharge Disposition: Home or Self Care Social [...] st Contact Info) Description 04/04/2024 8:30 AM SERVICE PROVIDER Office Visit [facility] - Dermatology [address] [place] [address], [place] [phone] Marlys Zaragoza MD [address] [place] [address] 3 [place] [phone] 09/03/2024 9:00 AM CDT Office Visit [facility] - Neurology [address] [facility], [place] [phone] Melissa Crook, VENDOR MANAGEMENT ASSOCIATE-PIT HAND [address] [place] [address] documented as of this encounter Procedures Procedure Name Priority Date/Time Associated Diagnosis Comments CBC W AUTO DIFFERENTIAL Routine 01/08/2015 9:40 AM CDT COMPREHENSIVE METABOLIC PANEL Routine 01/08/2015 9:40 AM CDT CBC W AUTO DIFFERENTIAL Routine 01/08/2015 9:40 AM CDT documented in this encounter Results * (ABNORMAL) COMPREHENSIVE METABOLIC PANEL (01/08/2015 9:40 AM CDT) BUN 19 7 - 26 mg/dL [facility] Creatinine 0.7 0.6 - 1.2 mg/dL [facility] Sodium 141 136 - 145 mmol/L [facility] Potassium 3.9 3.5 - 4.5 mmol/L [facility] Chloride 111(H) 98 - 107 mmol/L [facility] CO2 21(L) 22 - 29 mmol/L [facility] Glucose 98 70 - 115 mg/dL [facility] Calcium 8.9 8.4 - 10.2 mg/dL [facility] Protein Total 6.9 6.0 - 8.3 g/dL [facility] Albumin 3.9 3.4 - 5.0 g/dL [facility] Bilirubin Total 0.3 0.2 - 1.2 mg/dL [facility] Alkaline Phosphatase 46 40 - 150 Units/L [facility] ALT 12 0 - 55 Units/L [facility] AST 10 5 - 34 Units/L [facility] Anion Gap 13 8 - 18 [facility] BUN/Creatinine Ratio 27(H) 7 - 23 [facility] Osmolality Calculated 279 270 - 300 mOsm/kg [facility] Albumin/Globulin Ratio 1.3 1.1 - 2.3 [facility] eGFR >60 >60 mL/min/1.7 3 m2 [facility] Blood specimen (specimen) BLOOD SPECIMEN / Unknown 01/08/2015 9:40 AM CDT 01/08/2015 9:44 AM CDT Historical Provider LAB - CHEMISTRY O RDERABLES [facility] [address] [phone] * (ABNORMAL) CBC W AUTO DIFFERENTIAL (01/08/2015 9:40 AM CDT) WBC 10.9(H) 3.5 - 10.5 10? 3 /uL [facility] RBC 4.44 3.90 - 5.00 10? 6 /uL [facility] Hemoglobin 13.8 12.0 - 15.5 g/dL [facility] Hematocrit 40.9 35.0 - 45.0 % [facility] MCV 92.1 81.0 - 97.0 fL [facility] MCH 31.1 28.0 - 34.0 pg [facility] MCHC 33.7 32.0 - 36.0 g/dL [facility] Platelet Count 302 150 - 400 10? 3 /uL [facility] RDW-SD 46.6 36.0 - 50.0 fL [facility] RDW-CV 13.9 11.2 - 14.8 % [facility] MPV 9.0(L) 9.3 - 12.8 fL [facility] Neutrophils % 52.4 35.0 - 70.0 % [facility] Lymphocytes % 30.5 19.7 - 55.1 % [facility] Monocytes % 7.6 3.0 - 15.0 % [facility] Eosinophils % 7.4(H) 0.0 - 6.0 % [facility] Basophil % 1.2 0.0 - 1.5 % [facility] Neutrophils Absolute 5.7 1.6 - 7.0 10? 3 /uL [facility] Lymphocyte Absolute 3.3(H) 0.8 - 2.9 10? 3 /uL [facility] Monocytes Absolute 0.83(H) 0.14 - 0.66 10? 3 /uL [facility] Eosinophils Absolute 0.80(H) 0.00 - 0.22 10? 3 /uL [facility] Basophils Absolute 0.13(H) 0.00 - 0.06 10? 3 /uL [facility] Immature Granulocytes % 0.9 0.0 - 1.0 % [facility] Blood specimen (specimen) BLOOD SPECIMEN / Unknown 01/08/2015 9:40 AM CDT 01/08/2015 9:41 AM CDT Historical Provider MD LAB - HEMATOLOGY ORDERABLES Performing Organization Address [facility] Co de Phone Number [facility] [address] [phone] * CBC W AUTO DIFFERENTIAL (01/08/2015 9:40 AM CDT) Blood specimen (specimen) BLOOD SPECIMEN / Unknown 01/08/2015 9:40 AM CDT Narrative [facility] - 01/08/2015 9:44 AM CDT The following orders were created for panel order CBC w Differential. Procedure ? Abnormality ? Status ? --------- ? ------ ? CBC WITH DIFFERENTIAL[[id number]] ? Abnormal ?Final result ? Please view results for these tests on the individual orders. Historical Provider MD LAB - HEMATOLOGY ORDERABLES Performing Organization Address [facility] Co de Phone Number [facility] [address] documented in this encounter Visit Diagnoses Not on filedocumented in this encounter Care Teams Potato Chip Cooker Machine Relationship Specialty Start Date End Date Michael Palm MD [address] [place] [address] [address] [place] [address] PCP - General Internal Medicine 01/31/16 06/25/17 documented as of this encounter
--- OUTSIDE RECORDS SUMMARY | 2024-03-22 16:40 | XMS_ITS | Encounter Summary ---
Author Organization [facility] Health Address [address] [place] [address] Care Team Providers Care Burglar Alarm Mechanic Name Role Phone Michael Palm MD Primary Care Provider [phone] Encounter Details Date Type Department Care Team (Latest Contact Info) Description 06/20/2017 Hospital Outpatient Visit Historic [facility] MRI [address] [place] [address] Discharge Disposition: Home or Self Care Social [...] st Contact Info) Description 04/04/2024 8:30 AM PROFILING MACHINE SET UP OPERATOR Office Visit [facility] - Dermatology [address] [place] [address], [place] [phone] Marlys Zaragoza MD [address] [place] [address] 3 [place] [phone] 09/03/2024 9:00 AM CDT Office Visit [facility] - Neurology [address] [place] [address], [place] [address] Melissa Crook, CRANBERRY FARM SUPERVISOR-PROGRAM PROJECT MANAGER [address] [place] [address] documented as of this encounter Procedures Procedure Name Priority Date/Time Associated Diagnosis Comments MRI BRAIN WWO CONTRAST Routine 06/20/2017 7:09 PM CDT CREATININE BLOOD - POCT (IP) H Routine 06/20/2017 documented in this encounter Results * MRI BRAIN WWO CONTRAST (06/20/2017 7:09 PM CDT) Anatomical Region Laterality Modality Head Other Impressions 06/21/2017 6:41 PM CDT IMPRESSION: 1. Grossly unchanged diffuse supra and infratentorial demyelinating plaques without definite enhancement to ??suggest active demyelination. This report was approved ??by Harsh Capellan M.D. ?? on 06/21/2017 3:24 PM . I, Dr. KENNY BRODY have personally reviewed and interpreted this examination/study. This report was electronically signed by KENNY BRODY ??on 06/21/2017 6:41 PM . Narrative 06/21/2017 6:41 PM CDT EXAMINATION: Magnetic resonance imaging (MRI) of the brain without and with contrast HISTORY: Multiple sclerosis TECHNIQUE: MRI of the brain was performed prior to and following the uneventful administration of 13 ml MultiHance intravenous gadolinium contrast according to a demyelination protocol. FINDINGS: Comparison is made with brain MRI from 10/10/2016 No evidence of acute or chronic hemorrhage is identified. No evidence of acute cerebral infarction is seen. There is mild cerebral volume loss with associated ex vacuo ventricular dilatation. No mass effect or midline shift is seen. Numerous FLAIR hyperintensities representing demyelinating plaques in the cerebrum are grossly unchanged, with no definite enhancement to suggest active demyelination (given the limitation of the postcontrast images due to patient motion artifact). Many of these plaques demonstrate corresponding T1 hypointensity indicating of myelin vacuolization. The sella appears normal. There is atrophy of the corpus callosum. There are demyelinating plaques in the posterior fossa, some of which have improved especially in the right cerebellar hemisphere. There is mild paranasal sinus disease. Otherwise, the visualized portions of the mastoids appear normal. Normal flow voids are demonstrated in the carotid arteries and basilar artery. The calvarium appears normal. Partially imaged are upper cervical intramedullary lesions, likely representing demyelinating plaques in this patient with multiple sclerosis. Procedure Note Kenny Hughes MD - 06/23/2017 EXAMINATION: Magnetic resonance imaging (MRI) of the brain without andwith contrast HISTORY: Multiple sclerosis TECHNIQUE: MRI of the brain was performed prior to and following theuneventful administration of 13 ml MultiHance intravenous gadoliniumcontrast according to a demyelination protocol. FINDINGS: Comparison is made with brain MRI from 10/10/2016 No evidence of acute or chronic hemorrhage is identified. No evidence ofacute cerebral infarction is seen. There is mild cerebral volume loss withassociated ex vacuo ventricular dilatation. No mass effect or midlineshift is seen. Numerous FLAIR hyperintensities representing demyelinating plaques in the cerebrum aregrossly unchanged, with no definite enhancement to suggest activedemyelination (given the limitation of the postcontrast images due topatient motion artifact). Many of these plaques demonstrate corresponding T1 hypointensity indicating of myelinvacuolization. The sella appears normal. There is atrophy of the corpuscallosum. There are demyelinating plaques in the posterior fossa, some ofwhich have improved especially in the right cerebellar hemisphere. There is mild paranasal sinus disease. Otherwise, the visualized portionsof the mastoids appear normal. Normal flow voids are demonstrated in thecarotid arteries and basilar artery. The calvarium appears normal.Partially imaged are upper cervical intramedullary lesions, likely representing demyelinating plaques in thispatient with multiple sclerosis. IMPRESSION IMPRESSION: 1. Grossly unchanged diffuse supra and infratentorial demyelinatingplaques without definite enhancement to suggest active demyelination. This report was approved by Harsh Capellan M.D. on 06/21/2017 3:24 PM . IDr. KENNY have personally reviewed and interpreted thisexamination/study. This report was electronically signed by KENNY BRODY on 06/21/20176:41 PM . Devan Renee MD MR ORDERABLES * (ABNORMAL) CREATININE BLOOD - POCT (IP) [facility] (06/20/2017) Creatinine POCT 1.12 0.3 - 1.3 mg/dL COUNT INCLUDES THE [facility] eGFR POCT 59(A) 60 ml/min [facility] 06/20/2017 Devan Renee MD LAB - POINT OF CARE ORDERABLES Performing Organization Address City/State/[facility] Co de Phone Number COUNT INCLUDES THE [facility] [address] documented in this encounter Visit Diagnoses Diagnosis Multiple sclerosis (HCC) Multiple sclerosis documented in this encounter Care Teams Burglar Alarm Mechanic Relationship Specialty Start Date End Date Michale Palm MD [address] [place] [address] [address] [place] [address] PCP - General Internal Medicine 01/31/16 06/25/17 documented as of this encounter
--- OUTSIDE RECORDS SUMMARY | 2024-03-22 16:40 | XMS_ITS | Encounter Summary ---
Author Organization [facility] Health Address [address] [place] [address] Care Team Providers Care Reserves Clerk Name Role Phone Jose Whyte MD Primary Care Provider Unavail able Reason for Referral * Radiology Services (Routine) - Closed Specialty Diagnoses / Procedures Referred By Contac t Referred To Contact MRI Diagnoses Multiple sclerosis (HCC) Procedures MRI CERVICAL SPINE WWO Devan Horner MD [address] [address] [address] Referral ID Status Reason Start Date Expiration Date Visits Re quested Visits Authorized [id number] Closed 06/21/2017 12/18/2017 1 1 Reason for Visit * Radiology Services (Routine) - Closed Specialty Diagnoses / Procedures Referred By Contac t Referred To Contact MRI Diagnoses Multiple sclerosis (HCC) Procedures MRI CERVICAL SPINE WWO Devan Horner MD [address] [facility] [address] [place] [address] [facility] [address] Mri [address] [place] [address] Referral ID Status Reason Start Date Expiration Date Visits Re quested Visits Authorized [id number] Closed 06/21/2017 12/18/2017 1 1 Encounter Details Date Type Department Care Team (Latest Contact Info) Description 07/03/2017 6:15 AM CDT - 07/03/2017 11:59 PM CDT Hospital En[facility] [address] [place] [phone] Devan Renee MD [address] [facility] [address] [place] [address] Discharge Disposition: Home or Self Care Social [...] hours 03/05/2014 04/11/2021 baclofen (LIORESAL) 10 MG tablet TAKE 1 TABLET BY MOUTH TWICE DAILY 09/03/2015 10/10/2017 benzoyl peroxide (BENZAC) 10 % wash 05/22/2017 [...] fluticasone propionate (FLONASE) 50 MCG/ACT nasal spray [place] 1 [place] into the nose 03/05/2014 04/11/2021 hydrOXYzine hcl [...] 2 times daily as needed 01/10/2017 01/27/2019 topiramate (TOPAMAX) 200 MG tablet TAKE ONE [...] st Contact Info) Description 04/04/2024 8:30 AM STEEL PICKLER Office Visit [facility] - Dermatology [address] [place] [address], [place] [phone] Marlys Zaragoza MD [address] [place] [address] [address] [place] [phone] 09/03/2024 9:00 AM CDT Office Visit [facility] - Neurology [address] [place] [address], [place] [phone] Melissa Crook, LISETTE-CONTINUOUS YARN DYEING MACHINE OPERATOR [address] [place] [phone] documented as of this encounter Procedures Procedure Name Priority Date/Time Associated Diagnosis Comments MRI CERVICAL SPINE WWO CONT Routine 07/03/2017 7:36 AM CDT Multiple sclerosis (HCC) CREATININE BLOOD - POCT (IP) H Routine 07/03/2017 6:39 AM CDT Multiple sclerosis (HCC) documented in this encounter Results * MRI CERVICAL SPINE WWO CONT (07/03/2017 7:36 AM CDT) Anatomical Region Laterality Modality Spine Magnetic Resonan ce 07/03/2017 7:54 AM CDT Impressions 07/03/2017 8:02 AM CDT IMPRESSION: 1. Multiple T2/STIR hyperintense lesions in the medulla, upper cervical spinal cord at C2-C7 levels. ??The lesions are conspicuous on today's study which may be due to the difference in image quality as the image quality of the previous study was degraded by motion artifact. Please correlated with patient's symptoms. No abnormal enhancement is identified to suggest active demyelination. This report was electronically signed by MAXWELL ACEVEDO M.D. ??on 07/03/2017 8:02 AM . Narrative 07/03/2017 8:02 AM CDT EXAMINATION: Magnetic resonance imaging (MRI) of the cervical spine without and with contrast HISTORY: G35: Multiple sclerosis TECHNIQUE: MRI of the cervical spine was performed prior to and following the uneventful administration of 13 mL MultiHance intravenous gadolinium contrast according to standard protocol. FINDINGS: Comparison is made with a study from 10/13/2016. There are multiple T2/STIR hyperintense lesions in the medulla, upper cervical spinal cord at C2-C7 levels, which are more conspicuous on today's study. It is not clear whether this is due to the difference in image quality as motion artifacts degraded the image quality of the previous study. No abnormal enhancement is identified to suggest active demyelination. The alignment is normal. Vertebral bodies are normal in height without evidence of compression fractures. Marrow signal intensity is normal. The craniocervical junction and visualized portions of the posterior fossa appear normal. The intervertebral discs are normal in height. No central canal stenosis is seen. The facets appear normal. The uncovertebral joints appear normal. No neural foraminal stenosis is seen. No soft tissue abnormality is identified. Normal flow voids are identified in the vertebral arteries. Procedure Note Maxwell Acevedo MD - 07/03/2017 EXAMINATION: Magnetic resonance imaging (MRI) of the cervical spine without and with contrast HISTORY: G35: Multiple sclerosis TECHNIQUE: MRI of the cervical spine was performed prior to andfollowing the uneventful administration of 13 mL MultiHance intravenous gadolinium contrast according to standard protocol. FINDINGS: Comparison is made with a study from 10/13/2016. There are multiple T2/STIR hyperintense lesions in the medulla, upper cervical spinal cord at C2-C7 levels, which are more conspicuous on today's study. It is not clear whether this is due to the difference in image quality as motion artifacts degraded the image quality of the previous study. No abnormal enhancement is identified to suggest active demyelination. The alignment is normal. Vertebral bodies are normal in height without evidence of compression fractures. Marrow signal intensity is normal.The craniocervical junction and visualized portions of the posterior fossa appear normal. The intervertebral discs are normal in height. No central canal stenosis is seen. The facets appear normal. The uncovertebral joints appearnormal. No neural foraminal stenosis is seen. No soft tissue abnormality is identified. Normal flow voids are identified in the vertebral arteries. IMPRESSION: 1. Multiple T2/STIR hyperintense lesions in the medulla, upper cervical spinal cord at C2-C7 levels. The lesions are conspicuous on today'sstudy which may be due to the difference in image quality as the image quality of the previous study was degraded by motion artifact. Please correlated with patient's symptoms. No abnormal enhancement is identified tosuggest active demyelination. This report was electronically signed by MAXWELL ACEVEDO M.D. on 07/03/2017 8:02 AM . Devan Renee MD MR ORDERABLES * CREATININE BLOOD - POCT (IP) [facility] (07/03/2017 6:39 AM CDT) Creatinine POCT 1.06 0.3 - 1.3 mg/dL [facility] eGFR POCT 60 60 ml/min [facility] Blood BLOOD SPECIMEN / Unknown 07/03/2017 6:39 AM CDT Devan Renee MD LAB - POINT OF CARE ORDERABLES [facility] [address] [place] [address] documented in this encounter Visit Diagnoses Diagnosis Multiple sclerosis (HCC) Multiple sclerosis documented in this encounter Administered Medications Inactive Administered Medications - up to 3 most recent administrations Medication Order MAR Action Action Date Dose Rate Site gadobenate dimeglumine (MULTIHANCE) injection Intravenous, CONTRAST ONCE, Starting on Sun07/03/17 at 0639, Until Sun07/04/17 at 0125 $ Given - Contrast 07/03/2017 7:36 AM CDT 14 mL documented in this encounter Care Teams Reserves Clerk Relationship Specialty Start Date End Date Jose Whyte MD PCP - General 06/26/17 07/17/17 documented as of this encounter
--- OUTSIDE RECORDS SUMMARY | 2024-03-22 16:40 | XMS_ITS | Encounter Summary ---
Author Organization [facility] Health Address [address] [facility] [place] [address] Care Team Providers Care Steel Sampler Name Role Phone Lauren Saba Jose Eduardo DINGN-TOOL/DIE MAKER Primary Care Provider Encounter Details Date Type Department Care Team (Late Contact Info) Description 04/30/2018 Orders Only [facility] [address] [place] [address] Jenni Campbell, PharmD [address] [place] [address] Social History Tobacco Use Types Packs/Day Years [...] (Late Contact Info) Description 04/04/2024 8:30 AM ECHO VASCULAR TECHNOLOGIST Office Visit [facility] Dermatology [address] [place] [address], [place] [phone] Marlys Zaragoza MD [address] [place] [address] [address] [place] [address] 09/03/2024 9:00 AM CDT Office Visit [facility] Neurology [address] [facility], [place] [address] Melissa Crook, LISETTE-TOOL/DIE MAKER [address] [place] [address] documented as of this encounter Visit Diagnoses Not on filedocumented in this encounter Care Teams Steel Sampler Relationship Specialty Start Date End Date Lauren Saba APRN-TOOL/DIE MAKER [address] [place] [phone] PCP - General 01/14/18 05/10/23 documented as of this encounter
--- OUTSIDE RECORDS SUMMARY | 2024-03-22 16:40 | XMS_ITS | Encounter Summary ---
Author Organization [facility] Health Address [address] [facility] [place] [address] Care Team Providers Care Outsole Beveler Name Role Phone Michael Palm MD Primary Care Provider [phone] Encounter Details Date Type Department Care Team (Latest Contact Info) Description 06/22/2017 Hospital Outpatient Visit Historic [facility] [address] OUTPATIENT SERVICES [address] [place] [phone] Devan Renee MD [address] [place] [address] [address] [place] [address] Discharge Disposition: Home or Self Care Social [...] Contact Info) Description 04/04/2024 8:30 AM BUSINESS OBJECTS DEVELOPER Office Visit [facility] [address] [facility], [place] [phone] Marlys Zaragoza MD [facility] 3L [place] [phone] 09/03/2024 9:00 AM CDT Office Visit [facility] [address] [facility] [place] [phone] Melissa rCook APRN-WOOD BARREL RECONDITIONER [address] [place] [phone] documented as of this encounter Visit Diagnoses Not on filedocumented in this encounter Care Teams Outsole Beveler Relationship Specialty Start Date End Date Michael Palm MD [address] [place] [address] [address] [place] [address] PCP - General Internal Medicine 01/31/16 06/25/17 documented as of this encounter
--- OUTSIDE RECORDS SUMMARY | 2024-03-22 16:40 | XMS_ITS | Encounter Summary ---
Author Organization [facility] Health Address [address] [place] [address] Care Team Providers Care Merchandise Team Manager Name Role Phone Unknown, Provider Primary Care Provider Unavaila ble Reason for Visit * Reason Comments MIGRAINE Encounter Details Date Type Department Care Team (Latest Contact Info) Description 07/18/2017 10:00 AM CDT Procedure visit [facility] Neurology [address] [place] [address] Mckayla Haywood MD [address] [phone] Intractable chronic 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 without [...] Sign Reading Time Taken Comments Blood Pressure 112/73 07/18/2017 9:40 AM CDT Pulse 91 07/18/2017 9:40 AM CDT Temperature 36.7 ??C (98 ??F) 07/18/2017 9:40 AM CDT Respiratory Rate - - Oxygen Saturation 97% 07/18/2017 9:40 AM CDT Inhaled Oxygen Concentration - - Weight 68.7 kg (151 lb 8 oz) 07/18/2017 9:40 AM CDT Height 165.1 cm (5' 5 ) 07/18/2017 9:40 AM CDT Body Mass Index 25.21 07/18/2017 9:40 AM CDT documented in this encounter Progress Notes * Mckayla Haywood MD - 07/18/2017 9:50 AM CDT Here for botox for chronic migraine. documented in this encounter Procedure Notes * Mckayla Haywood MD - 07/18/2017 9:52 AM CDTAssociated Order(s): PROC INJECTION - BOTOX [...] aura, intractable, with status migrainosus Procedure code: 81324 Date of last Botox procedure 04/18/2017. Side [...] per day current: 6 Associated headache symptoms: Moderate to severe pain, nausea, photophobia, phonophobia. [...] 04/04/2024 8:30 AM LIAISON ENGINEER Office Visit [facility] - Dermatology [address] [place] [address], [place] [phone] Marlys Zaragoza MD [address] [place] [address] 3 [place] [address] 09/03/2024 9:00 AM CDT Office Visit [facility] - Neurology [address] [place] [address], [place] [address] Melissa Crook, TECHNICAL SUPPORT INTERNSHIP-RAW SHELLFISH PREPARER [address] [place] [address] documented as of this encounter Procedures Procedure Name Priority Date/Time Associated Diagnosis Comments TX CHEMODENERV MUSC MIGRAINE Routine 07/18/2017 12:35 PM CDT Intractable chronic 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 without status migrainosus documented in this encounter Results * TX CHEMODENERV MUSC MIGRAINE (07/18/2017 12:35 PM CDT) [...] intractable, with status migrainosus ?? Procedure code: 51699 Date of last Botox procedure 04/18/2017. Side [...] 155 Units, Injection, ONCE, 1 dose, On Sun07/18/17 at 1015 $ Given 07/18/2017 9:56 AM CDT 155 Units documented in this encounter Care Teams Merchandise Team Manager Relationship Specialty Start Date End Date Unknown, Provider PCP - General 07/18/17 01/13/18 documented as of this encounter
--- OUTSIDE RECORDS SUMMARY | 2024-03-22 16:40 | XMS_ITS | Encounter Summary ---
Author Organization [facility] Health Address [address] [place] [address] Care Team Providers Care Intermodal Dispatcher Name Role Phone Michael Palm MD Primary Care Provider [phone] Encounter Details Date Type Department Care Team (Late st Contact Info) Description 04/21/2016 Hospital Outpatient Visit Historic [facility] [address] [place] [address] [place] [address] [place] [id number] Discharge Disposition: Home or Self Care Social [...] Sign Reading Time Taken Comments Blood Pressure 130/89 04/21/2016 9:34 AM GAS PLANT DISPATCHER Pulse 112 04/21/2016 9:34 AM GAS PLANT DISPATCHER Temperature 36.2 ??C (97.1 ??F) 04/21/2016 9:34 AM CS T Respiratory Rate 25 04/21/2016 9:34 AM GAS PLANT DISPATCHER Oxygen Saturation 100% 04/21/2016 9:34 AM GAS PLANT DISPATCHER Inhaled Oxygen Concentration - - Weight - - Height - - Body Mass Index - - documented in this encounter Plan of Treatment Upcoming Encounters Date Type Department Care Team (Late st Contact Info) Description 04/04/2024 8:30 AM GAS PLANT DISPATCHER Office Visit [facility] - Dermatology [address] [place] [address], [place] [address] [place] [address] [place] [address] [address] [place] [address] 09/03/2024 9:00 AM CDT Office Visit [facility] - Neurology [address] [place] [address], [place] [phone] Melissa Crook APRN-RN CHEMICAL DEPENDENCY [address] [place] [phone] documented as of this encounter Procedures Procedure Name Priority Date/Time Associated Diagnosis Comments COMPREHENSIVE METABOLIC PANEL Routine 04/21/2016 9:45 AM GAS PLANT DISPATCHER CBC W AUTO DIFFERENTIAL Routine 04/21/2016 9:45 AM GAS PLANT DISPATCHER LAB MISC TEST Routine 04/21/2016 9:45 AM GAS PLANT DISPATCHER CBC W AUTO DIFFERENTIAL Routine 04/21/2016 9:45 AM GAS PLANT DISPATCHER documented in this encounter Results * (ABNORMAL) COMPREHENSIVE METABOLIC PANEL (04/21/2016 9:45 AM GAS PLANT DISPATCHER) BUN 22 7 - 26 mg/dL [facility] Creatinine 0.7 0.6 - 1.2 mg/dL [facility] Sodium 141 136 - 145 mmol/L [facility] Potassium 3.8 3.5 - 4.5 mmol/L [facility] Chloride 110(H) 98 - 107 mmol/L [facility] CO2 20(L) 22 - 29 mmol/L [facility] Glucose 102 70 - 115 mg/dL [facility] Calcium 9.4 8.4 - 10.2 mg/dL [facility] Protein Total 7.6 6.0 - 8.3 g/dL [facility] Albumin 4.1 3.4 - 5.0 g/dL [facility] Bilirubin Total 0.3 0.2 - 1.2 mg/dL [facility] Alkaline Phosphatase 57 40 - 150 Units/L [facility] ALT 10 0 - 55 Units/L [facility] AST 10 5 - 34 Units/L [facility] Anion Gap 15 8 - 18 [facility] BUN/Creatinine Ratio 31(H) 7 - 23 [facility] Osmolality Calculated 296 270 - 300 mOsm/kg [facility] Albumin/Globulin Ratio 1.2 1.1 - 2.3 [facility] eGFR >60 >60 mL/min/1.7 3 m2 [facility] Blood specimen (specimen) BLOOD SPECIMEN / Unknown 04/21/2016 9:45 AM GAS PLANT DISPATCHER 04/21/2016 9:53 AM GAS PLANT DISPATCHER Devan Renee MD LAB - CHEMISTRY ORDERABLES Performing Organization Address City/State/[facility] Co de Phone Number [address] [phone] * (ABNORMAL) CBC W AUTO DIFFERENTIAL (04/21/2016 9:45 AM GAS PLANT DISPATCHER) WBC 13.8(H) 3.5 - 10.5 10? 3 /uL [facility] RBC 4.28 3.90 - 5.00 10? 6 /uL [facility] Hemoglobin 12.8 12.0 - 15.5 g/dL [facility] Hematocrit 38.9 35.0 - 45.0 % [facility] MCV 90.9 81.0 - 97.0 fL [facility] MCH 29.9 28.0 - 34.0 pg [facility] MCHC 32.9 32.0 - 36.0 g/dL [facility] Platelet Count 379 150 - 400 10? 3 /uL [facility] RDW-SD 44.5 36.0 - 50.0 fL [facility] RDW-CV 13.6 11.2 - 14.8 % [facility] MPV 9.2(L) 9.3 - 12.8 fL [facility] Neutrophils % 56.4 35.0 - 70.0 % [facility] Lymphocytes % 27.8 19.7 - 55.1 % [facility] Monocytes % 6.9 3.0 - 15.0 % [facility] Eosinophils % 7.3(H) 0.0 - 6.0 % [facility] Basophil % 0.7 0.0 - 1.5 % [facility] Neutrophils Absolute 7.8(H) 1.6 - 7.0 10? 3 /uL [facility] Lymphocyte Absolute 3.8(H) 0.8 - 2.9 10? 3 /uL [facility] Monocytes Absolute 0.95(H) 0.14 - 0.66 10? 3 /uL [facility] Eosinophils Absolute 1.01(H) 0.00 - 0.22 10? 3 /uL [facility] Basophils Absolute 0.09(H) 0.00 - 0.06 10? 3 /uL [facility] Immature Granulocytes % 0.9 0.0 - 1.0 % [facility] Blood specimen (specimen) BLOOD SPECIMEN / Unknown 04/21/2016 9:45 AM GAS PLANT DISPATCHER 04/21/2016 9:46 AM GAS PLANT DISPATCHER Devan Renee MD LAB - HEMATOLOG Y ORDERABLES [address] [phone] * LAB MISC TEST (04/21/2016 9:45 AM GAS PLANT DISPATCHER) Reference Lab Results SEE SCANNED REPORT [facility] NON INTERF Other (qualifier value) 04/21/2016 9:45 AM GAS PLANT DISPATCHER 04/21/2016 10:02 AM GAS PLANT DISPATCHER Narrative [facility] NON INTERF - 05/26/2016 10:01 AM GAS PLANT DISPATCHER Test Name:->JCV VIRUS W/INDEX RFLX TO INHIB FROZEN EDTA PLASMA Reference Lab Info:->[facility] ??TO ??FOCUS FROZEN EDTA PLASMA Harjit Mendez MD LAB SEND OUT [facility] NON INTERF * CBC W AUTO DIFFERENTIAL (04/21/2016 9:45 AM GAS PLANT DISPATCHER) Blood specimen (specimen) BLOOD SPECIMEN / Unknown 04/21/2016 9:45 AM GAS PLANT DISPATCHER Narrative [facility] - 04/21/2016 9:49 AM GAS PLANT DISPATCHER The following orders were created for panel order CBC w/ Differential, Platelet. Procedure ? Abnormality ? Status ? --------- ? ------ ? CBC WITH DIFFERENTIAL[[id number]] ? Abnormal ?Final result ? Please view results for these tests on the individual orders. Devan Renee MD LAB - HEMATOLOG Y ORDERABLES Performing Organization Address City/State/[facility] Co de Phone Number [facility] [address] documented in this encounter Visit Diagnoses Diagnosis Multiple sclerosis (HCC) Multiple sclerosis Other termite control servicer (current) drug therapy documented in this encounter Care Teams Intermodal Dispatcher Relationship Specialty Start Date End Date Michael Palm MD [address] [place] [address] [address] [place] [address] PCP - General Internal Medicine 01/31/16 06/25/17 documented as of this encounter
--- OUTSIDE RECORDS SUMMARY | 2024-03-22 16:40 | XMS_ITS | Encounter Summary ---
Author Organization [facility] Health Address [address] [facility] [place] [address] Care Team Providers Care Fried Cake Maker Name Role Phone Unknown, Provider Primary Care Provider Unavaila ble Reason for Visit * Reason Onset Date Comments Botox 10/08/2017 Est botox pt Encounter Details Date Type Department Care Team (Late st Contact Info) Description 10/08/2017 Telephone [facility] [address] [place] [address] Carolee Lowe Botox (Est botox pt) Social [...] * Telephone Encounter - Carolee Lowe - 10/08/2017 4:42 PM CDT Jessica Date: ??10/17/17 @ 10:40 am 10/11/17 - APPROVED [employer]: ??Auth #[id number] (06/29/17 - 12/29/17) 1st of 2 OV's [id number] - NPR Provider: Aninda Yobany Units: ??200 units Dx & CPT Codes: ??G43.719 / J0585 ??02071 Last inj:?07/18/17 ? Fax form to [employer] documented in this encounter Plan of Treatment Upcoming Encounters Date Type Department Care Team (Late st Contact Info) Description 04/04/2024 8:30 AM GRAIN THRESHER Office Visit [facility] - Dermatology [address] [place] [address], [place] [phone] Marlys Zaragoza MD [address] [place] [address] [place] [address] 09/03/2024 9:00 AM CDT Office Visit [facility] - Neurology [address] [place] [address] [place] [phone] Melissa Crook, LISETTE-PRINTING ESTIMATOR [address] [place] [phone] documented as of this encounter Visit Diagnoses Not on filedocumented in this encounter Care Teams Fried Cake Maker Relationship Specialty Start Date End Date Unknown, Provider PCP - General 07/18/17 01/13/18 documented as of this encounter
--- OUTSIDE RECORDS SUMMARY | 2024-03-22 16:40 | XMS_ITS | Encounter Summary ---
Author Organization [facility] Health Address [address] [facility] [place] [address] Care Team Providers Care Remelt Operator Name Role Phone Unknown, Provider Primary Care Provider Unavaila ble Reason for Visit * Reason Comments Follow-up MS Encounter Details Date Type Department Care Team ([facility] Contact Info) Description 10/10/2017 10:40 AM CDT Office Visit [facility] Neurology [address] [place] [address] Alesia Vazquez, REHABILITATION CONSTRUCTION SPECIALIST-MAGAZINE PUBLISHER [address] [place] [phone] MS (multiple sclerosis) (HCC) (Primary Dx); Vitamin D deficiency; High risk medication use; Nonintractable epilepsy without status epilepticus, unspecified epilepsy type (HCC); Mild cognitive impairment; Intractable chronic 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 without status migrainosus; Spasticity Social History Tobacco Use Types Packs/Day [...] Reading Time Taken Comments Blood Pressure 109/72 10/10/2017 10:53 AM CDT Pulse 75 10/10/2017 10:53 AM CDT Temperature 36 ??C (96.8 ??F) 10/10/2017 10: 53 AM CDT Respiratory Rate - - Oxygen Saturation 99% 10/10/2017 10: 53 AM CDT Inhaled Oxygen Concentration - - Weight 70.2 kg (154 lb 12.8 oz) 018 10:53 AM CDT Height 165.1 cm (5' 5 ) 10/10/2017 10:5 3 AM CDT Body Mass Index 25.76 10/10/2017 10:53 AM CDT documented in this encounter Patient Instructions * Patient Instructions* Alesia Vazquez APRN-CNP - 10/10/2017 11:39 AM CDT Please have lab work done today and every 3 months. Follow up with your Infusion every 6 months. Follow up with Dr. Haywood for Botox injections. Clinic follow up for MS in 3-4 months. documented in this encounter Progress Notes * Alesia Vazquez APRN-CNP - 10/10/2017 10:50 AM CDT Neurology MS clinic Follow up 10/10/2017 CC RRMS, severe form Gait imbalance Handed R No Known Allergies MEDS Past Avonex Tysabri SE of spaced out Adderall Gilenya Rebif Topamax SE of Cognitive impairment Trazodone Gabapentin Amitriptyline Various psych meds Current Outpatient Prescriptions Medication Sig Dispense Refill ??? Ocrelizumab (OCREVUS IV) 600 mg by Intravenous route Reasons: every 6 months ??? erythromycin (ERYDERM) 2 % solution GRACY [...] hours ??? baclofen (LIORESAL) 10 MG tablet TAKE 1 TABLET BY MOUTH TWICE DAILY ??? vitamin D3 (CHOLECACIFEROL) 5000 UNITS Take 1 Tab by mouth ??? fluticasone propionate (FLONASE) 50 MCG/ACT nasal spray Rew 1 Rew into the nose ??? budesonide-formoterol (SYMBICORT) 160-4.5 MCG/ACT inhaler No current facility-administered medications for this visit. PMH Asthma MS PUD 03/30 Sz 2007 Depression, anxiety, psychosis R knee subluxation as child HPI 09/22 Sx Diplopia, LUE weakness, ataxia, fainting BJC CSF ? Results MRI abnl Rx IVMP Recovered completely Lynseyx Switched to U for insurance reasons 03/26 [...] Sx sz Had run out of lamotrigine [facility], lamotrigine restarted 04/30 Rx TPX Restarted 05/28 Sx Relapse, diplopia, R face/UE/LE numb + weak, imbalance Rx IVMP x 7 d at home, 3 day taper per pt 07/28 MRI enhancing lesions T9, L temp, R par Rx D/c'ed lamotrigine 04/20 BARCENAS 08/28 GBN Restarted for UE pain, helpful 09/27 Sx LE sx worse, dragging LLE Improved since restarting baclofen (had run out x 2 wks) 10/28 Rx Requests to stop Gilenya Adherent so far Thinks she did better last year on Rebif No relapse since 05/28 No sz 11/18/11 [address] [facility] with [facility] Rx IVMP, d/c'ed on taper MRI occ enhancing lesion 01/03/12 Rx 1st Tysabri infusion 01/14/12 [address] [facility] with [facility] Rx Received IVMP x 4 [...] relapse/ progression Went to ED 04/12/16 for ABRCENAS Reports fatigue 07/03 MS Relapse, hospitalized, IVMP [...] headache, has Photophobia, Has Nausea, and Vomiting, 10/26 headache, pounding in quality, lasts about 24 hour, has about 20+ headache days per months 03/04 Doing better, referred to CBT for cognition and BTX for Headaches has been helpful 10/10/2017 No MS attack/ dz progression, Reports doing well. Accompanied with mother, last seen in clinic for Botox Injections for BARCENAS in 07/2017, Last seen Dr. Renee for MS f/u in 05/2017. Receiving Ocrevus Infusion- first infusion 10/2016, MRI 06/2017 is stable ROS Pain R facial pain inactive; Right leg pain resolved Sz None for past 4 years per mother Sens LUE numbness, tingling, only when non-adherence to baclofen / at night BARCENAS Headache of migrainous type, intractable, receiving Botox injections and Imitrex prn Gait Falls no, frequent stumbling, trouble walking in the dark and uneven ground Vision No change, no diplopia, blurriness No urgency, nocturia, UTI GI Qod BM, did not pursue c'scopy for ? Crohn Mood better, denies SI, cries QOMO, under psyc care, stable on current medications Gen Rare presyncopal feeling Cogn Needs to make shopping lists, forgets appointments, mother is legal guardian Does not forget to turn the stove/water off, no longer drives Sleep To bed [id number], asleep fast, wakes 0630 Wakes up refreshed, + snoring, no PLMS, RLS Fatigue some, naps sometimes help Heat Sensitive, lost cooling vest obgyn Sexually not active, not in relationship PE CV Nl S1, S2, no murmur Pulm CTA GI Nl BS, no organomegaly Mood Nl Affect Flat affect Speech Nl Cogn Nl Malou Slight clumsy bilaterally, LUE worse than RUE FTN tremor bilaterally- inactive Power Nl squat, drift, clumsy heel, toe Sens Nl Lhermitte, Romberg (+) Gait T25FW 7.9s 06/01 4.7s 11/01 5.5s 03/03 6.2s 06/02 7.3 03/04 8.0 06/03 6.5 10/03 LABS 06/28 CMP B12 432, D 58.8, [...] HBsAg NR HcAb NR 03/04 HIV NR FH (-) MS, SLE, RA (+) asthma, aunt with brain aneurysm Sister daughter w sz, epilepsy surgery 12/31 SH Lives with mother. Son, 2003, good health, doing well in school MRI 05/29 Sl interval decrease in prominence [...] - On Ocrelizumab since 10/2016, now stable, next infusion on 10/26/17- advised to follow up as scheduled - MRI in 06/2017 - no active demyelination - Advise CBC, CMP today nad Q 3 months Gait disorder - Speed, quality much improved - Not a candidate for Ampyra / to seizures d/o Seizures, stable - Zonisamide at 400 mg HS, continue same (refilled in 05/[address] Renee with 11 refills ) Vit D Deficiency - levels in 02/2017 was 41, not taking supplements > 6 mo - restarted Vit D 5000 u QD, refilled Spasms/ spasticity -Stable on Baclofen 10 mg BID, refilled Migraine Headaches - Follow up with Dr. Haywood for Botox injection as scheduled on 10/17/17. Medical source statement of ability to do work related activity (mental and physical) will be filled out by Dr. Renee. F/U in 3 months. Alesia Vazquez, MSN, HAND RUG CLEANER-C Department of Neurology Electronically signed by Alesia Vazquez, REHABILITATION CONSTRUCTION SPECIALIST-MAGAZINE PUBLISHER at 10/10/2017 1:52 PM CDT documented in this encounter Plan of Treatment Upcoming Encounters Date Type Department Care Team (Late st Contact Info) Description 04/04/2024 8:30 AM GUIDE EXCURSION Office Visit [facility] - Dermatology [address] [place] [address], [place] [address] Marlys Zaragoza MD [address] [place] [address] 3 [place] [phone] 09/03/2024 9:00 AM CDT Office Visit [facility] - Neurology [address] [facility] [place] [address] Melissa Crook, LISETTE-MAGAZINE PUBLISHER [address] [place] [phone] documented as of this encounter Visit Diagnoses Diagnosis MS (multiple sclerosis) (HCC)- Primary Multiple sclerosis Vitamin D deficiency High risk [...] movements documented in this encounter Care Teams Remelt Operator Relationship Specialty Start Date End Date Unknown, Provider PCP - General 07/18/17 01/13/18 documented as of this encounter
--- OUTSIDE RECORDS SUMMARY | 2024-03-22 16:40 | XMS_ITS | Encounter Summary ---
Author Organization [facility] Health Address [address] [place] [address] Care Team Providers Care Precision Lens Grinder Name Role Phone Jose Whyte MD Primary Care Provider Unavail able Unknown, Provider Primary Care Provider Unavaila ble Encounter Details Date Type Department Care Team (Late Contact Info) Description 07/04/2017 Orders Only [facility] [address] [place] [address] Tania Lowe Social History Tobacco Use Types Packs/Day Years [...] (Late Contact Info) Description 04/04/2024 8:30 AM SECRETARY TO THE VICE PRESIDENT Office Visit [facility] - Dermatology [address] [place] [address], [place] [phone] Marlys Zaragoza MD [address] [place] [address] 3 [place] [phone] 09/03/2024 9:00 AM CDT Office Visit [facility] - Neurology [address] [place] [address], [place] [phone] Melissa Crook, CURB ATTENDANT-DIE DRAWING CHECKER [address] [place] [phone] documented as of this encounter Visit Diagnoses Not on filedocumented in this encounter Care Teams Precision Lens Grinder Relationship Specialty Start Date End Date Jose Whyte MD PCP - General 06/26/17 07/17/17 Unknown, Provider PCP - General 07/18/17 01/13/18 documented as of this encounter
--- OUTSIDE RECORDS SUMMARY | 2024-03-22 16:40 | XMS_ITS | Encounter Summary ---
Author Organization [facility] Health Address [address] [facility] [address] Care Team Providers Care Manager Marketing Sales Name Role Phone Michael Palm MD Primary Care Provider [phone] Encounter Details Date Type Department Care Team (Latest Contact Info) Description 06/21/2017 Hospital Outpatient Visit Historic [facility] [address] [place] [phone] Devan Renee MD [address] [place] [address] [address] [place] [address] Discharge Disposition: Home or Self Care Social [...] Contact Info) Description 04/04/2024 8:30 AM SUPERVISOR PLASTICS Office Visit [facility] - [facility]ermatology [address] [place], [place] [phone] Marlys Zaragoza MD [facility] 3L [place] [phone] 09/03/2024 9:00 AM CDT Office Visit [facility] - Neurology [address] [facility] [place] [phone] Melissa Crook APRN-FURNACE HELPER [address] [place] [phone] documented as of this encounter Visit Diagnoses Not on filedocumented in this encounter Care Teams Manager Marketing Sales Relationship Specialty Start Date End Date Michael Palm MD [address] [place] [address] [address] [place] [address] PCP - General Internal Medicine 01/31/16 06/25/17 documented as of this encounter
--- OUTSIDE RECORDS SUMMARY | 2024-03-22 16:40 | XMS_ITS | Encounter Summary ---
Author Organization [facility] Address [address] [facility] [place] [address] Care Team Providers Care Manager Of Information Name Role Phone Michael Palm MD Primary Care Provider [phone] Encounter Details Date Type Department Care Team (Latest Contact Info) Description 02/05/2015 Hospital Outpatient Visit Historic [facility] MAIN LAB [address] [place] [address] Simon Carcamo MD [address] [place] [address] Discharge Disposition: Home or Self Care Social [...] st Contact Info) Description 04/04/2024 8:30 AM VACUUM FILTER OPERATOR Office Visit [facility] - Dermatology [address] [place] [address], [place] [phone] Marlys Zaragoza MD [address] [place] [address] [address] [place] [phone] 09/03/2024 9:00 AM CDT Office Visit [facility] - Neurology [address] [facility] [place] [address] Melissa Crook APRN-CLERK ENTRY LEVEL [address] [place] [phone] documented as of this encounter Visit Diagnoses Not on filedocumented in this encounter Care Teams Manager Of Information Relationship Specialty Start Date End Date Michael Palm MD [address] [place] [address] [address] [place] [address] PCP - General Internal Medicine 01/31/16 06/25/17 documented as of this encounter
--- OUTSIDE RECORDS SUMMARY | 2024-03-22 16:40 | XMS_ITS | Encounter Summary ---
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) Social History Tobacco Use Types Packs/Day [...] Sign Reading Time Taken Comments Blood Pressure 123/79 04/15/2018 8:32 AM HEALTH AND SAFETY TRAINER Pulse 103 04/15/2018 8:32 AM HEALTH AND SAFETY TRAINER Temperature 36.6 ??C (97.9 ??F) 04/15/2018 8:32 AM CS T Respiratory Rate - - Oxygen Saturation - - Inhaled Oxygen Concentration - - Weight 65.3 kg (144 lb) 04/15/2018 8:32 AM HEALTH AND SAFETY TRAINER Height 165.1 cm (5' 5 ) 04/15/2018 8:32 AM HEALTH AND SAFETY TRAINER Body Mass Index 23.96 04/15/2018 8:32 AM HEALTH AND SAFETY TRAINER documented in this encounter Progress Notes * Mckayla Haywood MD - 04/15/2018 8:41 AM CST Here Botox for chronic migraine. Current Outpatient Prescriptions [...] ??? budesonide-formoterol (SYMBICORT) 160-4.5 MCG/ACT inhaler ??? qwfifbuozu-wpiabpsencxrv-soxbwtnm (FIORICET) 50-325-40 MG tablet Take 1 tablet [...] fluticasone propionate (FLONASE) 50 MCG/ACT nasal spray [place] 1 [place] into the nose ??? ibuprofen (MOTRIN) 600 MG tablet Take 1 tablet by mouth every 6 hours as needed 1 ??? Ocrelizumab (OCREVUS IV) 600 mg by [...] current facility-administered medications for this visit. BP 123/79 Pulse 103 Temp 97.9 ??F (36.6 ??C) (Oral) Ht 5' 5 (1.651 m) Wt 144 lb (65.3 kg) BMI 23.96 kg/m2 Sinus tachycardia. Requests refill on Ibuprofen prn for headache and back pain. No side effects reported. TH AND SAFETY TRAINER documented in this encounter Procedure Notes * Mckayla Haywood MD - 04/15/2018 8:46 AM CSTAssociated Order(s): PROC INJECTION - BOTOX Procedure(s): IA CHEMODENERV MUSC MIGRAINE Pre-Procedure Diagnose(s): Intractable chronic [...] aura, intractable, with status migrainosus Procedure code: 55184 History: Baseline number of headaches per month: [...] migraine abortive treatments: Date of last injection: 01/14/2018 Duration of benefit: 10 weeks Side effects [...] treatment. Ordered 200 units for next visit. TH AND SAFETY TRAINER documented in this encounter Plan of Treatment Upcoming Encounters Date Type Department Care Team (Late st Contact Info) Description 04/04/2024 8:30 AM HEALTH AND SAFETY TRAINER Office Visit [facility] - Dermatology [address] [place] [address], [place] [address] Marlys Zaragoza MD [address] [place] [address] [address] [place] [phone] 09/03/2024 9:00 AM CDT Office Visit [facility] - Neurology [address] [facility], [place] [phone] Macklanden Melissa, PIPELINES SUPERINTENDENT-CLEANING CUSTODIAN [address] [place] [phone] documented as of this encounter Procedures Procedure Name Priority Date/Time Associated Diagnosis Comments IA CHEMODENERV MUSC MIGRAINE Routine 04/15/2018 9:18 AM HEALTH AND SAFETY TRAINER 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 04/15/2018 ??9:18 AM [...] intractable, with status migrainosus ?? 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)- Primary Persistent migraine aura with cerebral infarction, with intractable migraine, so stated, without mention of status migrainosus documented in this encounter Administered Medications Inactive Administered Medications - up to 3 most recent administrations Medication Order MAR Action Action Date Dose Rate Site onabotulinumtoxin A (BOTOX) injection 155 Units 155 Units, Intramuscular, ONCE, 1 dose, On 04/15/18 at 0915 $ Given 04/15/2018 9:17 AM HEALTH AND SAFETY TRAINER 155 Units Head documented in this encounter Care Teams Lead Miner Relationship Specialty Start Date End Date Lauren Saba, PIPELINES SUPERINTENDENT-CLEANING CUSTODIAN [address] [place] [phone] PCP - General 01/14/18 05/10/23 documented as of this encounter
--- OUTSIDE RECORDS SUMMARY | 2024-03-22 16:40 | XMS_ITS | Encounter Summary ---
Author Organization [facility] Address [address] [facility] [place] [place] [address] Care Team Providers Care Community Liaison Officer Name Role Phone Michael Palm MD Primary Care Provider [phone] Encounter Details Date Type Department Care Team (Latest Contact Info) Description 07/23/2015 Hospital Outpatient Visit Historic [facility] MAIN LAB [address] [place] [address] Simon Carcamo MD [address] [place] [address] Discharge Disposition: Home or Self Care Social [...] st Contact Info) Description 04/04/2024 8:30 AM UNDERCUTTER OPERATOR Office Visit [facility] - Dermatology [facility] [facility], [place] [phone] Marlys Zaragoza MD [address] [place] [address] [address] [place] [phone] 09/03/2024 9:00 AM CDT Office Visit [facility] - Neurology [address] [facility], [place] [address] Melissa Crook APRN-ALBERENE STONE SETTER [address] [place] [phone] documented as of this encounter Visit Diagnoses Not on filedocumented in this encounter Care Teams Community Liaison Officer Relationship Specialty Start Date End Date Michael Palm MD [address] [place] [address] [address] [place] [address] PCP - General Internal Medicine 01/31/16 06/25/17 documented as of this encounter
--- OUTSIDE RECORDS SUMMARY | 2024-03-22 16:40 | XMS_ITS | Encounter Summary ---
Author Organization [facility] Address [address] [place] [address] Care Team Providers Care Boilermaker'S Assistant Name Role Phone Michael Palm MD Primary Care Provider [phone] Encounter Details Date Type Department Care Team (Latest Contact Info) Description 04/12/2016 Emergency Department Historic [facility] EMERGENCY DEPARTMENT [address] [place] [address] Discharge Disposition: Home or Self Care Social [...] Sign Reading Time Taken Comments Blood Pressure 130/41 04/12/2016 10:19 AM CLEAN ENERGY POLICY ANALYST Pulse 76 04/12/2016 10:19 AM CLEAN ENERGY POLICY ANALYST Temperature 36.9 ??C (98.5 ??F) 04/12/2016 10:[address] Respiratory Rate 16 04/12/2016 10:19 AM CLEAN ENERGY POLICY ANALYST Oxygen Saturation 100% 04/12/2016 10:19 AM CLEAN ENERGY POLICY ANALYST Inhaled Oxygen Concentration - - Weight 63 kg (139 lb) 04/12/2016 10:19 AM CLEAN ENERGY POLICY ANALYST Height 165.1 cm (5' 5 ) 04/12/2016 10:19 AM CLEAN ENERGY POLICY ANALYST Body Mass Index 23.13 04/12/2016 10:19 AM CLEAN ENERGY POLICY ANALYST documented in this encounter ED Notes * Provider, MD Kimi - 04/12/2016 10:36 AM CST ED Provider Notes Signed by Tomasz Fowler NP on 04/12/2016 1:18 PM Author: Tomasz Fowler NP Service: Emergency Author Type: Nurse Practitioner Date of Service: 04/12/2016 10:36 AM Filed: 04/12/2016 1:18 PM Note Type: ED Provider Notes Status: Signed Clinical Research Technician: Tomasz Fowler NP (Nurse Practitioner) Cosigner: Kisha Gregorio MD at 04/13/2016 5:07 AM History Chief Complaint Patient presents with ??? Headache pt here for a BARCENAS. Pt statess she has Migraine HX this one just won't go away HPI Comments: Adán is 35 year old female with history of migraine headaches. Patient reports onset of migraine headache that started 2 weeks to a month ago. Patient reports pain is throbbing andshooting at forehead and temples, and does not radiate anywhere. Patient reports that her Neurologist that she see for her headaches is at the , but is not in on today. Patient reports that she has received migraine headache medication in the past from someone, but does not remember what it is. Patient reports light makes the pain worse. Patient also reports nausea, but denies vomiting. Patient also denies visual disturbances. Patient is a 35 y.o. female presenting with headaches. Headache Associated symptoms: nausea and photophobia Associated symptoms: no congestion, no cough, no dizziness, no ear pain, no eye pain, no fever, no numbness, no seizures, no sinus pressure, no sore throat, no vomiting and no weakness Past Medical History: Diagnosis Date ??? Anxiety ??? Asthma ??? Asthma ??? Heart abnormality ??? History of knee surgery ??? Mental disorder ??? MS (multiple sclerosis) ??? Seizure Past Surgical History: Procedure Laterality Date ??? HX KNEE SURGERY Family History Problem Relation Age of Onset ??? Blindness Father ??? Breast Cancer Other ??? Cataract Father ??? Diabetes Paternal Grandmother Social History Substance Use Topics ??? Smoking status: Never Smoker ??? Smokeless tobacco: Never Used ??? Alcohol use No Review of Systems Constitutional: Negative for activity change and fever. HENT: Negative for congestion, ear pain, sinus pressure and sore throat. Eyes: Positive for photophobia. Negative for pain and visual disturbance. Respiratory: Negative for cough and shortness of breath. Cardiovascular: Negative for chest pain. Gastrointestinal: Positive for nausea. Negative for vomiting. Neurological: Positive for headaches. Negative for dizziness, tremors, seizures, syncope, facial asymmetry, speech difficulty, weakness, light-headedness and numbness. Psychiatric/Behavioral: Negative for agitation, behavioral problems, confusion and hallucinations. The patient is not nervous/anxious. Physical Exam Visit Vitals ??? BP 130/41 (BP Location: Right arm, Patient Position: Sitting) ??? Pulse 76 ??? Temp 98.5 ??F (36.9 ??C) (Oral) ??? Resp 16 ??? Ht 5' 5 (1.651 m) ??? Wt 139 lb (63 kg) ??? LMP 04/10/2016 ??? SpO2 100% ??? BMI 23.13 kg/m2 Physical Exam Constitutional: She is oriented to person, place, and time. She appears well- developed and well-nourished. HENT: Head: Normocephalic and atraumatic. Eyes: EOM are normal. Pupils are equal, round, and reactive to light. Neck: Normal range of motion. Neck supple. Cardiovascular: Normal rate, regular rhythm and normal heart sounds. Pulmonary/Chest: Effort normal and breath sounds normal. Musculoskeletal: Normal range of motion. Neurological: She is alert and oriented to person, place, and time. Skin: Skin is warm and dry. Psychiatric: She has a normal mood and affect. Her behavior is normal. Judgment and thought contentnormal. Nursing note and vitals reviewed. ED Course ED Course Procedures MDM Number of Diagnoses or Management Options Migraine without aura and without status migrainosus, not intractable: Diagnosis management comments: Presents with headache and history of migraines. Photophobia and nausea noted. Reports headache pain is 10 of 10. Denies vision changes, weakness, slurred speech, SOB and chest pain. DX: Migraine headache. Plan: Headache cocktail and reassess. At reassessment, patient reports headache pain is now 5 of 10. Patient provided with Amelia juice and Cranberry juice for PO challenge. Patient tolerating PO fluids well. Patient to be discharged with Naproxen 550 mg and directed to follow up with her Neurologist for further assessment. Patient also discharged with information concerning home care for migraine BARCENAS's. Risk of Complications, Morbidity, and/or Mortality Presenting problems: moderate Diagnostic procedures: moderate Management options: moderate Patient Progress Patient progress: stable ED Final Diagnosis and Discharge information 1. Migraine without aura and without status migrainosus, not intractable Scripts ED Discharge Orders Start Ordered 04/12/16 0000 naproxen sodium (ANAPROX DS) 550 MG tablet 2 TIMES DAILY WITH MEALS 04/12/16 1312 Follow-up Follow-up Information Follow up with Your PCP and/or Neurologist In 1 week. Why: As needed, If symptoms worsen, and for follow up reassessment. Contact information: concerning your migraine headaches. Disposition Tomasz Fowler NP 04/12/16 [address] ENERGY POLICY ANALYST documented in this encounter Plan of Treatment Upcoming Encounters Date Type Department Care Team (Late st Contact Info) Description 04/04/2024 8:30 AM CLEAN ENERGY POLICY ANALYST Office Visit [facility] - Dermatology [address] [place] [address], [place] [phone] Marlys Zaragoza MD [address] [place] [address] [place] [phone] 09/03/2024 9:00 AM CDT Office Visit [facility] - Neurology [address] [place] [phone] Melissa Crook, ROLL HAULER-SEWING MACHINE OPERATOR SEMIAUTOMATIC [address] [place] [phone] documented as of this encounter Visit Diagnoses Diagnosis Migraine without aura and without status migrainosus, not intractable Migraine without aura, without mention of intractable migraine without mention of status migrainosus documented in this encounter Care Teams Boilermaker'S Assistant Relationship Specialty Start Date End Date Michael Palm MD [address] [place] [address] [address] [place] [address] PCP - General Internal Medicine 01/31/16 06/25/17 documented as of this encounter
--- OUTSIDE RECORDS SUMMARY | 2024-03-22 16:40 | XMS_ITS | Encounter Summary ---
Author Organization [facility] Health Address [address] [place] [address] Care Team Providers Care Curriculum Coach Name Role Phone Michael Palm MD Primary Care Provider [phone] Reason for Visit * Reason Comments Well Women Exam Encounter Details Date Type Department Care Team (Latest Contact Info) Description 01/31/2016 12:08 PM PAPERBOARD BOX MAKER - 01/31/2016 11:59 PM PAPERBOARD BOX MAKER Hospital Encounter [facility] MATERNAL/ EVALUATION UNIT [facility] [address] [place] [address] Sheeba Rock MD [address] [facility] [address] [place] [address] Discharge Disposition: Home or Self Care Social [...] Sign Reading Time Taken Comments Blood Pressure 134/83 01/31/2016 12:25 PM PAPERBOARD BOX MAKER Pulse 87 01/31/2016 12:25 PM PAPERBOARD BOX MAKER Temperature - - Respiratory Rate 20 01/31/2016 12:25 PM PAPERBOARD BOX MAKER Oxygen Saturation - - Inhaled Oxygen Concentration - - Weight 65.3 kg (144 lb) 01/31/2016 12:25 PM PAPERBOARD BOX MAKER Height 165.1 cm (5' 5 ) 01/31/2016 12:25 PM PAPERBOARD BOX MAKER Body Mass Index 23.96 01/31/2016 12:25 PM PAPERBOARD BOX MAKER documented in this encounter Medications at Time of Discharge Medication Sig Dispensed Refills Start Date End Date albuterol HFA (PROVENTIL;VENTOLIN;PROAI R) 108 (90 BASE) MCG/ACT inhaler Inhale 2 Puffs by mouth every 6 hours 03/05/2014 04/11/2021 baclofen (LIORESAL) 10 MG tablet TAKE 1 TABLET BY MOUTH TWICE DAILY 09/03/2015 10/10/2017 budesonide-formoterol (SYMBICORT) 160-4.5 MCG/ACT inhaler 11/02/2015 10/03/2018 fluticasone propionate (FLONASE) 50 MCG/ACT nasal spray Kendall 1 Kendall into the nose 03/05/2014 04/11/2021 natalizumab 300 mg in 0.9% NaCl 0.9 % 100 mL 10/10 topiramate (TOPAMAX) 200 MG tablet TAKE ONE TABLET BY MOUTH TWICE DAILY 06/07/2015 07/18/2017 vitamin D3 (CHOLECACIFEROL) 5000 UNITS Take 1 Tab by mouth 03/05/2015 10/11/19 18 documented as of this encounter Progress Notes * Dilma Back - 01/31/2016 11:59 PM CST We have received a release of records from the office of [facility]'s Olga. I have mailed the records to the office address on [address] [place] [address]. I have scanned therelease into [employer]. RBOARD BOX MAKER documented in this encounter H&P Notes * Sheeba Rock MD - 01/31/2016 1:08 PM CST Well Woman Annual Exam Subjective: Meredith Frost is a 35 y.o. who presents for annual exam. The patient has no complaints today. She denies fevers, chills, nausea, vomiting, CP, SOB, abnormalmenses, vaginal discharge, decreased appetite, unintentional weight loss/gain, dysuria or hematuria. Denies depressive symptoms. She has a history of using condoms for contraception. She reports that she wears seatbelts, tries to exercise, and feels safe at home. Review of Systems A comprehensive review of systems was negative except as described in HPI. WALLPAPER EMBOSSER HELPER History: Last pap smear: unsure Abnormal paps: denies Cervical procedures: denies STDs: denies Contraception: condoms Sexually active: not currently OB History Para Term AB SAB TAB Ectopic Multiple Living 1 1 1 1 # Outcome Date GA Lbr Riky/2nd Weight Sex Delivery Anes PTL Lv 1 Term Past Medical History Diagnosis Date ??? Multiple sclerosis ??? Seizure disorder No past surgical history on file. No family history on file. Current Outpatient Prescriptions Medication Sig Dispense Refill ??? albuterol HFA (PROVENTIL;VENTOLIN;PROAIR) 108 (90 BASE) MCG/ACT inhaler Inhale 2 Puffs by mouthevery 6 hours ??? baclofen (LIORESAL) 10 MG tablet TAKE 1 TABLET BY MOUTH TWICE DAILY ??? vitamin D3 (CHOLECACIFEROL) 5000 UNITS Take 1 Tab by mouth ??? fluticasone propionate (FLONASE) 50 MCG/ACT nasal spray Kendall 1 Kendall into the nose ??? budesonide-formoterol (SYMBICORT) 160-4.5 MCG/ACT inhaler ??? topiramate (TOPAMAX) 200 MG tablet TAKE ONE TABLET BY MOUTH TWICE DAILY ??? natalizumab 300 mg in 0.9% NaCl 0.9 % 100 mL No current facility-administered medications for this encounter. No Known Allergies Social History Occupational History ??? Not on file. Social History Main Topics ??? Smoking status: Not on file ??? Smokeless tobacco: Not on file ??? Alcohol use: Not on file ??? Drug use: Not on file ??? Sexual activity: Not on file Objective: PHYSICAL EXAM: Vitals: 01/31/16 1225 BP: 134/83 Pulse: 87 Resp: 20 Weight: 144 lb (65.3 kg) GEN: appears stated age; cooperative, no distress HEART: RRR, normal S1 and S2 without murmurs LUNG: CTA x2 ABDOMEN: soft without mass, non-tender, with normal bowel sounds BREAST: bilaterally normal appearance, no masses or tenderness, inspection negative, no nipple retraction or dimpling, no nipple discharge or bleeding, no axillary or supraclavicular adenopathy, normal to palpation without dominant masses EXT: no calf tenderness or edema PELVIC: VULVA: normal appearing vulva with no masses, tenderness or lesions, URETHRAL MEATUS: normal, no masses URETHRA: normal, non tender during inspetion BLADDER: non tender to palpation VAGINA: normal-appearing mucosa with normal color and discharge; no lesions, lacerations or ulcers CERVIX: normal-appearing without discharge or lesions UTERUS: uterus is normal size, shape, consistency and nontender ADNEXA: normal adnexa in size, nontender and no masses Wet prep: negative Assessment/Plan: 1. WWE 1. Menses regular 2. Pap collected 3. Wet prep negative 4. GC/CT and HIV collected 5. Currently not sexually active; STD testing: would like 6. Currently using condoms 2. History of seizures, MS, and psych disorders 1. In process of finding new neurologist 2. Has an appointment set up 3. RTC in 1 yr for WWE Pt seen and discussed with Dr. Rock. Sheeba Rock MD 01/31/2016 2:11 PM Pt seen and examined by me with Dr. Hudson. I agree with the above documentation. Briefly, this is a 35 y.o. here for well woman exam Not having sex often, but using condoms when she is. BP 134/83 Pulse 87 Resp 20 Wt 144 lb (65.3 kg) BMI 23.96 kg/m2 Normal pelvic A/pO 35 y.o. Pap up to date Condoms prn mammogram age 40+ Transitioning to new neurologist, has appt coming up Needs to continue her infusions Std screening today RBOARD BOX MAKER documented in this encounter Plan of Treatment Upcoming Encounters Date Type Department Care Team (Late st Contact Info) Description 04/04/2024 8:30 AM PAPERBOARD BOX MAKER Office Visit [facility] - Dermatology [address] [place] [address], [facility] [place] [address] Marlys Zaragoza MD [address] [place] [address] 3 [place] [address] 09/03/2024 9:00 AM CDT Office Visit [facility] - Neurology [address] [facility] [place] [phone] Melissa Crook, LISETTE-SECRETARY TO BOARD OF COMMISSIONERS [address] [place] [phone] documented as of this encounter Procedures Procedure Name Priority Date/Time Associated Diagnosis Comments HIV-1 HIV-2 ANTIBODY + HIV P24 AG PANEL Routine 01/31/2016 1:54 PM PAPERBOARD BOX MAKER PAP LB HPV HR DNA Routine 01/31/2016 1:5 4 PM PAPERBOARD BOX MAKER Well woman exam RPR Routine 01/31/2016 1:54 PM PAPERBOARD BOX MAKER CHLAMYDIA + GC AMPLIFIED PROBE Routine 01/31/2016 1:54 PM PAPERBOARD BOX MAKER HEPATITIS C ANTIBODY Routine 01/31/2016 1:54 PM PAPERBOARD BOX MAKER documented in this encounter Results * HEPATITIS C ANTIBODY (01/31/2016 1:54 PM PAPERBOARD BOX MAKER) HCV Antibody Screen Non Reactive Non Reactive 01/31/2016 3:15 PM PAPERBOARD BOX MAKER [facility] HCV S/C Ratio 0.12 0.00 - 0.79 01/31/2016 3:15 PM PAPERBOARD BOX MAKER [facility] Comment: Qderql-qv-nwxuun ratio (S/CO) <0.80:?? Non Reactive Blood BLOOD SPECIMEN / Unknown Venipuncture / Unknown 01/31/2016 1:54 PM PAPERBOARD BOX MAKER 01/31/2016 2:07 PM PAPERBOARD BOX MAKER Narrative [facility] - 01/31/2016 3:15 PM PAPERBOARD BOX MAKER Non Reactive - Antibodies to Hepatitis C virus (HCV) were not detected, result does not exclude early acute HCV infection. Osmar Hudson MD LAB - CHEMISTRY MAGDALENA DOBBS [facility] [address] [place], [place] [id number] * RPR (01/31/2016 1:54 PM PAPERBOARD BOX MAKER) RPR Non Reactive Non Reactive 02/01/2016 9:23 AM PAPERBOARD BOX MAKER [facility] Blood BLOOD SPECIMEN / Unknown Venipuncture / Unknown 01/31/2016 1:54 PM PAPERBOARD BOX MAKER 01/31/2016 2:07 PM PAPERBOARD BOX MAKER Osmar Hudson MD LAB - CHEMISTRY MAGDALENA DOBBS Performing Organization Address City/[facility]/ZIP Co de Phone Number [facility] [address] [place] [address] * HIV-1 HIV-2 ANTIBODY + HIV P24 AG PANEL (01/31/2016 1:54 PM PAPERBOARD BOX MAKER) Pathologist [facility] [place] HIV1/2 Ab + P24 Ag Non Reactive Non Reactive 01/31/2016 4:26 PM PAPERBOARD BOX MAKER [facility] Blood BLOOD SPECIMEN / Unknown Venipuncture / Unknown 01/31/2016 1:54 PM PAPERBOARD BOX MAKER 01/31/2016 2:07 PM PAPERBOARD BOX MAKER Narrative [facility] - 01/31/2016 4:26 PM PAPERBOARD BOX MAKER No Laboratory evidence of HIV infection. Osmar Hudson MD LAB - CHEMISTRY MAGDALENA DOBBS Performing Organization Address [facility] Co de Phone Number [facility] [place] [address] * CHLAMYDIA + GC AMPLIFIED PROBE (01/31/2016 1:54 PM PAPERBOARD BOX MAKER) Pathologist [facility] [place] Chlamydia Amplified Probe Negative Negative 02/01/2016 11:00 AM PAPERBOARD BOX MAKER [facility] GC Amplified Probe Negative Negative 02/01/2016 11:00 AM PAPERBOARD BOX MAKER [facility] Microbiology ENTIRE ENDOCERVIX / Unknown Collection / Unknown 01/31/2016 1:54 PM PAPERBOARD BOX MAKER 01/31/2016 2:05 PM PAPERBOARD BOX MAKER Narrative [facility] - 02/01/2016 11:00 AM PAPERBOARD BOX MAKER Results based on detection/no detection of ribosomal RNA by amplified method. Osmar Hudson MD LAB - MICROBIOLOGY O RDERABLES [facility] [address] [place], [place] [address] [phone] * PAP SMEAR LB HPV HR (PO REF LAB) (01/31/2016 1:54 PM PAPERBOARD BOX MAKER) Diagnosis Comment 02/04/2016 6:10 PM PAPERBOARD BOX MAKER [facility] ([facility]) Comment: NEGATIVE FOR INTRAEPITHELIAL LESION AND MALIGNANCY. REACTIVE CELLULAR CHANGES AND/OR REPAIR ARE PRESENT. Specimen Adequacy Comment 016 6:10 PM PAPERBOARD BOX MAKER [facility] ([facility]) Comment: Satisfactory for evaluation. ??Endocervical and/or squamous metaplastic cells (endocervical component) are present. Performed by Comment 02/04/2016 6:10 PM PAPERBOARD BOX MAKER [facility] ([facility]) Comment:Floridalma Peterson ytotechnologist (ASCP) Electronically Signed by Comment 02/04/2016 6:10 PM PAPERBOARD BOX MAKER [facility] ([facility]) Comment:Brielle Brock MD, P athologist Comment . 02/04/2016 6:10 PM PAPERBOARD BOX MAKER [facility] ([facility]) Note Comment 02/04/2016 6:10 PM PAPERBOARD BOX MAKER [facility] ([facility]) Comment: The Pap smear is a screening test designed to aid in the detection of premalignant and malignant conditions of the uterine cervix. ??It is not a diagnostic procedure and should not be used as the sole means of detecting cervical cancer. ??Both false-positive and false-negative reports do occur. Human papillomavirus High Risk Negative Negative 02/04/2016 6:10 PM PAPERBOARD BOX MAKER [facility] ([facility]) Comment: This high-risk HPV test detects thirteen high-risk types (16/18/31/33/35/39/45/51/52/56/58/59/68) without differentiation. Pathology/Cytolo gy MICROSCOPIC CYTOLOGIC EXAMINATION OF SMEAR OF SPECIMEN FROM FEMALE GENITAL TRACT PREPARED USING PAPANICOLAOU TECHNIQUE / Unknown Collection / Unknown 01/31/2016 1:54 PM PAPERBOARD BOX MAKER 01/31/2016 2:05 PM PAPERBOARD BOX MAKER Narrative [facility] ([facility]) - 02/04/2016 6:10 PM PAPERBOARD BOX MAKER Performed at: ??01 - Lab[address] [place], [place] ??[id number] Lens Engraver: Tamar Onofre MD, Phone: ??[phone] Performed at: ??02 - [facility] [address] [facility], [place], [place] ??[id number] Lens Engraver: Tamar Onofre MD, Phone: ??[phone] Specimen Comment: Source.............Endocervix Specimen Comment: No. of containers..01 CYTYC Thin Prep Vial Osmar Hudson MD LAB - PATHOLOGY/CYTO LOGY ORDERABLES [facility] ([facility]) [address] [place] [address] documented in this encounter Visit Diagnoses Diagnosis Well woman exam- Primary Routine general medical examination at a health care facility documented in this encounter Care Teams Curriculum Coach Relationship Specialty Start Date End Date Michael Palm MD [address] [place] [address] [address] [place] [address] PCP - General Internal Medicine 01/31/16 06/25/17 documented as of this encounter
--- OUTSIDE RECORDS SUMMARY | 2024-03-22 16:40 | XMS_ITS | Encounter Summary ---
Author Organization [facility] Health Address [address] [facility] [place] [address] Care Team Providers Care Archivist Nonprofit Foundation Name Role Phone Lauren Saba Jose Eduardo KNOX-FHA UNDERWRITER Primary Care Provider Reason for Visit * Oncology Prior Authorization (Routine) - Closed Specialty Diagnoses / Procedures Referred By Contac t Referred To Contact Diagnoses Multiple sclerosis (HCC) Procedures HI INJ OCRELIZUMAB 1MG Jenni Elaine, PharmD [address] [place] [address] [facility] [address] [place] [address] Referral ID Status Reason Start Date Expiration Date Visits Re quested Visits Authorized [id number] Closed 10/25/2017 04/23/2018 99 99 Encounter Details Date Type Department Care Team (Latest Contact Info) Description 05/08/2018 8:30 AM EDUCATIONAL SIGN LANGUAGE INTERPRETER Procedure visit [facility] [place] [address] [place] [address] MS (multiple sclerosis) (HCC) Social [...] Sign Reading Time Taken Comments Blood Pressure 107/74 05/08/2018 9:15 AM EDUCATIONAL SIGN LANGUAGE INTERPRETER Pulse 68 05/08/2018 9:15 AM EDUCATIONAL SIGN LANGUAGE INTERPRETER Temperature 36.7 ??C (98.1 ??F) 05/08/2018 9:15 AM CS T Respiratory Rate 16 05/08/2018 9:15 AM EDUCATIONAL SIGN LANGUAGE INTERPRETER Oxygen Saturation - - Inhaled Oxygen Concentration - - Weight 61.6 kg (135 lb 12.8 oz) 05/08/2018 9:15 AM EDUCATIONAL SIGN LANGUAGE INTERPRETER Height 165.1 cm (5' 5 ) 05/08/2018 9:15 AM EDUCATIONAL SIGN LANGUAGE INTERPRETER Body Mass Index 22.6 05/08/2018 9:15 AM EDUCATIONAL SIGN LANGUAGE INTERPRETER documented in this encounter Plan of Treatment Upcoming Encounters Date Type Department Care Team (Late st Contact Info) Description 04/04/2024 8:30 AM EDUCATIONAL SIGN LANGUAGE INTERPRETER Office Visit [facility] - Dermatology [address] [place] [address] [place] [phone] Marlys Zaragoza MD [address] [place] [address] [place] [phone] 09/03/2024 9:00 AM CDT Office Visit [facility] - Neurology [address] [place] [phone] Melissa Crook, LISETTE-FHA UNDERWRITER [address] [place] [phone] documented as of this encounter Visit Diagnoses Diagnosis MS (multiple sclerosis) (HCC)- Primary Multiple sclerosis documented in this encounter Administered Medications Inactive Administered Medications - up to 3 most recent administrations Medication Order MAR Action Action Date Dose Rate Site acetaminophen (TYLENOL) tablet 650 mg 650 mg, Oral, ONCE, 1 dose, On Sun05/08/18 at 0900, Maximum allowable Acetaminophen amount = 4 Grams (4000 mg) / 24 hours. $ Given 05/08/2018 8:59 AM EDUCATIONAL SIGN LANGUAGE INTERPRETER 650 mg diphenhydrAMINE (BENADRYL) capsule 50 mg 50 mg, Oral, ONCE, 1 dose, On Sun05/08/18 at 0900, Use IV if patient not tolerating PO $ Given 05/08/2018 9:00 AM EDUCATIONAL SIGN LANGUAGE INTERPRETER 50 mg methylPREDNISolone sod succ (SOLU-Medrol) injection 125 mg 125 mg, Intravenous, ONCE, 1 dose, On Sun05/08/18 at 0900 $ Given 05/08/2018 9:00 AM EDUCATIONAL SIGN LANGUAGE INTERPRETER 125 mg ocrelizumab (OCREVUS) 600 mg in 0.9% NaCl 520 mL infusion 600 mg, Intravenous, ONCE, 1 dose, On Sun05/08/18 at 0915, Start at 40 mL/hr and increase by 40 mL/hr every 30 minutes to a maximum of 200 mL/hr. Observe patient for 1 hour post infusion Administer via dedicated line with a 0.2 or 0.22 micron in-line filter $ New Bag/Syringe 05/08/2018 9:23 AM EDUCATIONAL SIGN LANGUAGE INTERPRETER 600 mg 40 mL/hr documented in this encounter Care Teams Archivist Nonprofit Foundation Relationship Specialty Start Date End Date Lauren Saba, SCRAP WORKER-FHA UNDERWRITER [address] [place] [address] PCP - General 01/14/18 05/10/23 documented as of this encounter
--- OUTSIDE RECORDS SUMMARY | 2024-03-22 16:41 | XMS_ITS | Encounter Summary ---
Author Organization [facility] Health Address [address] [facility] [place] [address] Care Team Providers Care University Internship Name Role Phone Michael Palm MD Primary Care Provider [phone] Encounter Details Date Type Department Care Team (Latest Contact Info) Description 10/16/2014 Hospital Outpatient Visit Historic [facility] MAIN LAB [address] [place] [address] Simon Carcamo MD [address] [place] [place] [address] Discharge Disposition: Home or Self Care Social [...] st Contact Info) Description 04/04/2024 8:30 AM LABORATORY ADMINISTRATIVE DIRECTOR Office Visit [facility] - [facility]ermat[facility] [facility], [place] [phone] Marlys Zaragoza MD [address] [place] [address] 3 [place]PT [place] [phone] 09/03/2024 9:00 AM CDT Office Visit [facility] - Neurology [address] [facility] [place] [phone] Melissa Crook, LISETTE-SYSTEMS SOFTWARE DEVELOPER [address] [place] [address] documented as of this encounter Procedures Procedure Name Priority Date/Time Associated Diagnosis Comments CBC W AUTO DIFFERENTIAL Routine 10/16/2014 9:20 AM CDT CBC W AUTO DIFFERENTIAL Routine 10/16/2014 9:20 AM CDT HEPATIC FUNCTION PANEL Routine 10/16/2014 9:20 AM CDT documented in this encounter Results * HEPATIC FUNCTION PANEL (10/16/2014 9:20 AM CDT) Protein Total 7.2 6.0 - 8.3 g/dL [facility] Albumin 4.3 3.4 - 5.0 g/dL [facility] Bilirubin Total 0.5 0.2 - 1.2 mg/dL [facility] Bilirubin Conjugated 0.2 0.0 - 0.5 mg/dL [facility] Bilirubin Unconjugated 0.3 Unconjugated Bilirubin is a calculated value: Reference ranges have not been established. mg/dL [facility] Alkaline Phosphatase 58 40 - 150 Units/L [facility] ALT 11 0 - 55 Units/L [facility] AST 11 5 - 34 Units/L [facility] Albumin/Globulin Ratio 1.5 1.1 - 2.3 [facility] Blood specimen (specimen) BLOOD SPECIMEN / Unknown 10/16/2014 9:20 AM CDT 10/16/2014 9:43 AM CDT Historical Provider LAB - CHEMISTRY O RDERABLES [facility] [address] [phone] * (ABNORMAL) CBC W AUTO DIFFERENTIAL (10/16/2014 9:20 AM CDT) WBC 10.4 3.5 - 10.5 10? 3 /uL [facility] RBC 4.88 3.90 - 5.00 10? 6 /uL [facility] Hemoglobin 14.9 12.0 - 15.5 g/dL [facility] Hematocrit 43.1 35.0 - 45.0 % [facility] MCV 88.3 81.0 - 97.0 fL [facility] MCH 30.5 28.0 - 34.0 pg [facility] MCHC 34.6 32.0 - 36.0 g/dL [facility] Platelet Count 282 150 - 400 10? 3 /uL [facility] RDW-SD 44.5 36.0 - 50.0 fL [facility] RDW-CV 13.9 11.2 - 14.8 % [facility] MPV 8.9(L) 9.3 - 12.8 fL [facility] Neutrophils % 50.2 35.0 - 70.0 % [facility] Lymphocytes % 33.7 19.7 - 55.1 % [facility] Monocytes % 8.7 3.0 - 15.0 % [facility] Eosinophils % 6.1(H) 0.0 - 6.0 % [facility] Basophil % 0.7 0.0 - 1.5 % [facility] Neutrophils Absolute 5.2 1.6 - 7.0 10? 3 /uL [facility] Lymphocyte Absolute 3.5(H) 0.8 - 2.9 10? 3 /uL [facility] Monocytes Absolute 0.90(H) 0.14 - 0.66 10? 3 /uL [facility] Eosinophils Absolute 0.63(H) 0.00 - 0.22 10? 3 /uL [facility] Basophils Absolute 0.07(H) 0.00 - 0.06 10? 3 /uL [facility] Immature Granulocytes % 0.6 0.0 - 1.0 % [facility] Blood specimen (specimen) BLOOD SPECIMEN / Unknown 10/16/2014 9:20 AM CDT 10/16/2014 9:28 AM CDT Historical Provider LAB - HEMATOLOGY ORDERABLES Performing Organization Address [facility]/ZIP Co de Phone Number [facility] [address] [place] [address], [facility] [phone] * CBC W AUTO DIFFERENTIAL (10/16/2014 9:20 AM CDT) Blood specimen (specimen) BLOOD SPECIMEN / Unknown 10/16/2014 9:[address] [facility] - 10/16/2014 9:31 AM CDT The following orders were created for panel order CBC w/Differential. Procedure ? Abnormality ? Status ? --------- ? ------ ? CBC WITH DIFFERENTIAL[[id number]] ? Abnormal ?Final result ? Please view results for these tests on the individual orders. Historical Provider LAB - HEMATOLOGY ORDERABLES Performing Organization Address [facility] de Phone Number [facility] [address] documented in this encounter Visit Diagnoses Diagnosis Multiple sclerosis (HCC) Multiple sclerosis documented in this encounter Care Teams University Internship Relationship Specialty Start Date End Date Michael Palm MD [address] [place] [address] [address] [place] [address] PCP - General Internal Medicine 01/31/16 06/25/17 documented as of this encounter
--- OUTSIDE RECORDS SUMMARY | 2024-03-22 16:41 | XMS_ITS | Encounter Summary ---
Author Organization [facility] Health Address [address] [facility] [place] [address] Care Team Providers Care Health Actuary Name Role Phone Michael Palm MD Primary Care Provider [phone] Encounter Details Date Type Department Care Team (Latest Contact Info) Description 05/16/2012 Hospital Outpatient Visit Historic [facility] MRI [address] [place] [address] Discharge Disposition: Home or Self Care Social [...] st Contact Info) Description 04/04/2024 8:30 AM LIFE SKILLS INSTRUCTOR Office Visit [facility] - Dermatology [address] [place] [address], [place] [phone] Marlys Zaragoza MD [address] [place] [address] 3 DEPT [place] [address] 09/03/2024 9:00 AM CDT Office Visit [facility] - Neurology [address] [place] [address], [place] [address] Melissa Crook, RETAIL SUPPORT SPECIALIST-REGISTERED NURSE BEHAVIORAL HE[facility] [address] [place] [address] documented as of this encounter Procedures Procedure Name Priority Date/Time Associated Diagnosis Comments MRI THORACIC SPINE WWO CONT Routine 05/16/2012 1:21 PM LIFE SKILLS INSTRUCTOR documented in this encounter Results * MRI THORACIC SPINE WWO CONT (05/16/2012 1:21 PM LIFE SKILLS INSTRUCTOR) Anatomical Region Laterality Modality Spine Other Impressions 05/17/2012 12:23 PM LIFE SKILLS INSTRUCTOR IMPRESSION: 1. Slight interval decrease in prominence of T2/STIR hyperintensities in the cervical spine, particularly at the C2-C3 level, where the mild cord expansion and enhancement has resolved. 2. Multiple lesions in the thoracic spine are unchanged without enhancement. This report was approved ??by Jayce Townsend M.D. ?? on 05/17/2012 9:24 AM . I, Dr. DIMPLE GREENBERG M.D. have personally reviewed and interpreted this examination/study. This report was electronically signed by DIMPLE GREENBERG M.D. ??on 05/17/2012 12:23 PM . Narrative 05/17/2012 12:23 PM LIFE SKILLS INSTRUCTOR EXAMINATION: Magnetic resonance imaging (MRI) of the cervical and thoracic spine without and with contrast HISTORY: Multiple sclerosis. TECHNIQUE: MRI of the cervical and thoracic spine was performed prior to and following the uneventful administration of 11 mL MultiHance intravenous gadolinium contrast according to standard protocol. FINDINGS: Comparison is made with a study from 01/12/2012. Cervical spine: The alignment is normal. Vertebral bodies are normal in height without evidence of compression fractures. Marrow signal intensity is normal. The craniocervical junction and visualized portions of the posterior fossa appear normal. There are multiple T2/STIR hyperintensities throughout the cervical spine. ??Overall, these T2 hyperintensities have decreased slightly, especially at the C2-C3 level, where previously described enhancement has resolved. No new enhancing lesions are identified. The intervertebral discs appear normal. No central canal stenosis is seen. The facets appear normal. The uncovertebral joints appear normal. No neural foraminal stenosis is seen. No soft tissue abnormality is identified. Thoracic spine: The alignment is normal. Vertebral bodies are normal in height without evidence of compression fractures. Marrow signal intensity is normal. There is a similar distribution of FLAIR/STIR hyperintensities in the thoracic spine. None these lesions demonstrate enhancement. The intervertebral discs appear normal. No central canal stenosis is seen. The facets appear normal. No neural foraminal stenosis is seen. No soft tissue abnormality is identified. The conus medullaris is at the level of L1. Procedure Note Dimple Greenberg MD - 06/17/2017 EXAMINATION: Magnetic resonance imaging (MRI) of the cervical and thoracicspine without and with contrast HISTORY: Multiple sclerosis. TECHNIQUE: MRI of the cervical and thoracic spine was performed prior toand following the uneventful administration of 11 mL MultiHanceintravenous gadolinium contrast according to standard protocol. FINDINGS: Comparison is made with a study from 01/12/2012. Cervical spine: The alignment is normal. Vertebral bodies are normal in height withoutevidence of compression fractures. Marrow signal intensity is normal. Thecraniocervical junction and visualized portions of the posterior fossaappear normal. There are multiple T2/STIR hyperintensities throughout the cervical spine. Overall, these [id number] have decreased slightly, especially at the C2-C3 level,where previously described enhancement has resolved. No new enhancinglesions are identified. The intervertebral discs appear normal. No central canal stenosis is seen.The facets appear normal. The uncovertebral joints appear normal. Noneural foraminal stenosis is seen. No soft tissue abnormality isidentified. Thoracic spine: The alignment is normal. Vertebral bodies are normal in height withoutevidence of compression fractures. Marrow signal intensity is normal.There is a similar distribution of FLAIR/STIR hyperintensities in thethoracic spine. None these lesions demonstrate enhancement. The intervertebral discs appear normal. No central canal stenosis is seen.The facets appear normal. No neural foraminal stenosis is seen. No softtissue abnormality is identified. The conus medullaris is at the level ofL1. IMPRESSION IMPRESSION: 1. Slight interval decrease in prominence of T2/STIR hyperintensities inthe cervical spine, particularly at the C2-C3 level, where the mild cordexpansion and enhancement has resolved. 2. Multiple lesions in the thoracic spine are unchanged withoutenhancement. This report was approved by Jayce Townsend M.D. on 05/17/2012 9:24 AM. I, Dr. DIMPLE GREENBERG M.D. have personally reviewed and interpreted thisexamination/study. This report was electronically signed by DIMPLE GREENBERG M.D. on 05/17/201212:23 PM . Historical Provider MD WEBER ORDERABLES documented in this encounter Visit Diagnoses Diagnosis Multiple sclerosis (HCC) Multiple sclerosis Epilepsy (HCC) Unspecified epilepsy without mention of intractable epilepsy Migraine Insomnia Insomnia, unspecified Other depressive disorder Vitamin D deficiency Mild cognitive impairment Mild cognitive impairment, so stated Other malaise and fatigue Pain in joint, lower leg documented in this encounter Care Teams Health Actuary Relationship Specialty Start Date End Date Michael Palm MD [address] [place] [address] [address] [place] [address] PCP - General Internal Medicine 01/31/16 06/25/17 documented as of this encounter
--- OUTSIDE RECORDS SUMMARY | 2024-03-22 16:41 | XMS_ITS | Encounter Summary ---
Author Organization [facility] Health Address [address] [facility] [address] Care Team Providers Care Dermatologist Managing Partner Name Role Phone Michael Palm MD Primary Care Provider [phone] Encounter Details Date Type Department Care Team (Latest Contact Info) Description 12/04/2013 Hospital Outpatient Visit Historic [facility]IN LAB [address] [place] [address] Simon Carcamo MD [address] [place] [address] Discharge Disposition: Home or Self Care Social [...] st Contact Info) Description 04/04/2024 8:30 AM ASSOCIATE Office Visit [facility] - Dermatology [address] [place] [address], [place] [phone] Marlys Zaragoza MD [address] [place] [address] 3 [place] [phone] 09/03/2024 9:00 AM CDT Office Visit [facility] - Neurology [address] [facility], [place] [phone] Melissa Crook, LEGAL DEPARTMENT MANAGER-SUPERVISOR [employer]ESS [address] [place] [address] documented as of this encounter Procedures Procedure Name Priority Date/Time Associated Diagnosis Comments HEPATIC FUNCTION PANEL Routine 12/04/2013 11:44 AM CDT LAB MISC TEST Routine 12/04/2013 10:15 AM CDT DIFFERENTIAL MANUAL Routine 12/04/2013 1 0:15 AM CDT CBC W AUTO DIFFERENTIAL Routine 12/04/2013 10:15 AM CDT CBC W AUTO DIFFERENTIAL Routine 12/04/2013 10:15 AM CDT documented in this encounter Results * HEPATIC FUNCTION PANEL (12/04/2013 11:44 AM CDT) Protein Total 6.9 6.0 - 8.3 g/dL [facility] Albumin 4.2 3.4 - 5.0 g/dL [facility] Bilirubin Total 0.3 0.2 - 1.2 mg/dL [facility] Bilirubin Conjugated 0.1 0.0 - 0.5 mg/dL [facility] Bilirubin Unconjugated 0.2 Unconjugated Bilirubin is a calculated value: Reference ranges have not been established. mg/dL [facility] Alkaline Phosphatase 46 40 - 150 Units/L [facility] ALT 8 0 - 55 Units/L [facility] AST 9 5 - 34 Units/L [facility] Albumin/Globulin Ratio 1.6 1.1 - 2.3 [facility] Blood specimen (specimen) BLOOD SPECIMEN / Unknown 12/04/2013 11:44 AM CDT 12/04/2013 11:44 AM CDT Historical Provider MD LAB - CHEMISTRY O RDERABLES Performing Organization Address [facility] Co de Phone Number [facility] [phone] * LAB MISC TEST (12/04/2013 10:15 AM CDT) Reference Lab Results SEE SCANNED REPORT [facility] REF [facility] NON INTERF Other (qualifier value) 12/04/2013 10:15 AM CDT 12/04/2013 11:46 AM CDT Historical Provider MD LAB SEND OUT Performing Organization Address [facility] Co de Phone Number [facility] REF [facility] NON INTERF * CBC W AUTO DIFFERENTIAL (12/04/2013 10:15 AM CDT) Blood specimen (specimen) BLOOD SPECIMEN / Unknown 12/04/2013 10:[address] [facility] - 12/04/2013 11:57 AM CDT The following orders were created for panel order CBC w/Differential. Procedure ? Abnormality ? Status ? --------- ? ------ ? CBC WITH DIFFERENTIAL[[id number]] ? Final result ? MANUAL DIFFERENTIAL[[id number]] ? Abnormal ?Final result ? Please view results for these tests on the individual orders. Historical Provider MD LAB - HEMATOLOGY ORDERABLES Performing Organization Address [facility]/State/ZIP Co de Phone Number [facility] [address] * (ABNORMAL) DIFFERENTIAL MANUAL (12/04/2013 10:15 AM CDT) WBC (corrected for NRBC) 9.0 10? 3 /uL [facility] Total Cell Count 100 [facility] Neutrophils Absolute Manual 3.96 1.60 - 7.00 10? 3 /uL [facility] Comment:(BANDS+SEGS) x WBC = NEUT # (ANC) Lymphocyte Absolute Manual 2.88 0.80 - 2.90 10? 3 /uL [facility] Monocytes Absolute Manual 0.81(H) 0.14 - 0.66 10? 3 /uL [facility] Eosinophils Absolute Manual 1.35(H) 0.00 - 0.22 10? 3 /uL [facility] Neutrophil % Manual 44 30 - 60 % [facility] Lymphocyte % Manual 32 20 - 45 % [facility] Monocytes % Manual 9 2 - 10 % [facility] Eosinophils % Manual 15(H) 1 - 6 % [facility] Platelet Estimate Adequate Adequate [facility] RBC Morphology Normal [facility] Blood specimen (specimen) BLOOD SPECIMEN / Unknown 12/04/2013 10:15 AM CDT 12/04/2013 11:45 AM CDT Historical Provider LAB - HEMATOLOGY ORDERABLES Performing Organization Address [facility]/ZIP Co de Phone Number [facility] [address] [phone] * CBC W AUTO DIFFERENTIAL (12/04/2013 10:15 AM CDT) WBC 9.0 3.5 - 10.5 10? 3 /uL [facility] RBC 4.66 3.90 - 5.00 10? 6 /uL [facility] Hemoglobin 14.1 12.0 - 15.5 g/dL [facility] Hematocrit 41.3 35.0 - 45.0 % [facility] MCV 88.6 81.0 - 97.0 fL [facility] MCH 30.3 28.0 - 34.0 pg [facility] MCHC 34.1 32.0 - 36.0 g/dL [facility] Platelet Count 267 150 - 400 10? 3 /uL [facility] RDW-SD 42.5 36.0 - 50.0 fL [facility] RDW-CV 13.2 11.2 - 14.8 % [facility] MPV 9.3 9.3 - 12.8 fL [facility] Reflex Status Manual Differential to follow. [facility] Blood specimen (specimen) BLOOD SPECIMEN / Unknown 12/04/2013 10:15 AM CDT 12/04/2013 11:42 AM CDT Historical Provider LAB - HEMATOLOGY ORDERABLES Performing Organization Address City/State/[facility] Co de Phone Number [facility] [address] [phone] documented in this encounter Visit Diagnoses Diagnosis Multiple sclerosis (HCC) Multiple sclerosis documented in this encounter Care Teams Dermatologist Managing Partner Relationship Specialty Start Date End Date Michael Palm MD [address] [place] [address] [address] [place] [address] PCP - General Internal Medicine 01/31/16 06/25/17 documented as of this encounter
--- OUTSIDE RECORDS SUMMARY | 2024-03-22 16:41 | XMS_ITS | Encounter Summary ---
Author Organization [facility] Health Address [address] [facility] [place] [address] Care Team Providers Care Diaphragm Builder Name Role Phone Michael Palm MD Primary Care Provider [phone] Encounter Details Date Type Department Care Team (Latest Contact Info) Description 07/21/2011 Hospital Outpatient Visit Historic [facility] [address] [place] [phone] Simon Carcamo MD [address] [place] [address] Discharge Disposition: Home or Self Care Social [...] st Contact Info) Description 04/04/2024 8:30 AM HOTHOUSE WORKER Office Visit [facility] - Dermatology [address] [place] [address], [facility] [place] [phone] Marlys Zaragoza MD [address] [place] [address] 3 [place] [address] 09/03/2024 9:00 AM CDT Office Visit [facility] - Neurology [address] [facility], [place] [address] Melissa Crook APRN-METAL BASE BLOCKER [address] [place] [phone] documented as of this encounter Visit Diagnoses Not on filedocumented in this encounter Care Teams Diaphragm Builder Relationship Specialty Start Date End Date Michael Palm MD [address] [place] [address] [address] [place] [address] PCP - General Internal Medicine 01/31/16 06/25/17 documented as of this encounter
--- OUTSIDE RECORDS SUMMARY | 2024-03-22 16:41 | XMS_ITS | Encounter Summary ---
Author Organization [facility] Health Address [address] [facility] [address] Care Team Providers Care Business Analysis Consultant Name Role Phone Michael Palm MD Primary Care Provider [phone] Encounter Details Date Type Department Care Team (Latest Contact Info) Description 06/25/2014 Hospital Outpatient Visit Historic [facility] OUTPATIENT SERVICES [address] [place] [phone] Simon Carcamo MD [address] [place] [address] Discharge Disposition: Home or Self Care Social [...] st Contact Info) Description 04/04/2024 8:30 AM APPRENTICE FUNERAL DIRECTOR Office Visit [facility] - Dermatology [address] [place] [address], [facility] [place] [phone] Marlys Zaragoza MD [address] [place] [address] 3 [place] [phone] 09/03/2024 9:00 AM CDT Office Visit [facility] - Neurology [address] [facility], [place] [address] Melissa Crook APRN-SALES SERVICE ASSISTANT [address] [place] [phone] documented as of this encounter Visit Diagnoses Not on filedocumented in this encounter Care Teams Business Analysis Consultant Relationship Specialty Start Date End Date Michael Palm MD [address] [place] [address] [address] [place] [address] PCP - General Internal Medicine 01/31/16 06/25/17 documented as of this encounter
--- OUTSIDE RECORDS SUMMARY | 2024-03-22 16:41 | XMS_ITS | Encounter Summary ---
Author Organization [facility] Health Address [address] [facility] [place] [address] Care Team Providers Care Book Mender Name Role Phone Michael Palm MD Primary Care Provider [phone] Encounter Details Date Type Department Care Team (Latest Contact Info) Description 01/02/2014 Hospital Outpatient Visit Historic [facility] [address] [place] [address] [place] [address] [place] [address] Discharge Disposition: Home or Self Care Social [...] Contact Info) Description 04/04/2024 8:30 AM CARE DIRECTOR Office Visit [facility] - Dermatology [address] [place] [address], [place] [phone] Marlys Zaragoza MD [address] [place] [address] 3 [place] [phone] 09/03/2024 9:00 AM CDT Office Visit [facility] - Neurology [address] [facility], [facility] [place] [address] Melissa Crook APRN-ENVIRONMENTAL HEALTH AND SAFETY LEADER [address] [place] [address] documented as of this encounter Visit Diagnoses Not on filedocumented in this encounter Care Teams Book Mender Relationship Specialty Start Date End Date Michael Palm MD [address] [place] [address] [address] [place] [address] PCP - General Internal Medicine 01/31/16 06/25/17 documented as of this encounter
--- OUTSIDE RECORDS SUMMARY | 2024-03-22 16:41 | XMS_ITS | Encounter Summary ---
Author Organization [facility] Address [address] [place] [address] Care Team Providers [employer] Name Role Phone Michael Palm MD Primary Care Provider [phone] Encounter Details Date Type Department Care Team (Latest Contact Info) Description 10/17/2013 Hospital Outpatient Visit [facility] [address] [place] [id number] Simon Carcamo MD [address] [place] [id number] Discharge Disposition: Home or Self Care Social [...] st Contact Info) Description 04/04/2024 8:30 AM [employer] Office Visit [facility] - Dermatology [address] [place] [address], [facility] [place] [phone] Marlys Zaragoza MD [address] [place] [address] [address] [place] [id number] 09/03/2024 9:00 AM CDT Office Visit [facility] - Neurology [address] [facility] [place] [id number] Melissa Crook, DIRECT MARKETING COORDINATOR-SALES SERVICE COORDINATOR [address] [place] [phone] documented as of this encounter Procedures Procedure Name Priority Date/Time Associated Diagnosis Comments MRI BRAIN WWO CONTRAST Routine 10/17/2013 2:57 PM CDT MRI CERVICAL SPINE WWO CONT Routine 10/17/2013 1:59 PM CDT MRI THORACIC SPINE WWO CONT Routine 10/17/2013 1:45 PM CDT documented in this encounter Results * MRI BRAIN WWO CONTRAST (10/17/2013 2:57 PM CDT) Anatomical Region Laterality Modality Head Other Impressions 10/17/2013 4:09 PM CDT IMPRESSION: 1. Interval decrease in size of innumerable T2/FLAIR hyperintensities scattered throughout the brain without enhancement to suggest active disease. 2. Interval decrease in size of innumerable T2/STIR hyperintensities throughout the cervical spine without enhancement to suggest active disease. 3. Unchanged innumerable T2/STIR hyperintensities throughout the thoracic spine also without enhancement to suggest active disease. This report was approved ??by Farzaneh Saha M.D. ?? on 10/17/2013 3:12 PM . I, Dr. MAXWELL ACEVEDO M.D. have personally reviewed and interpreted this examination/study. This report was electronically signed by MAXWELL ACEVEDO M.D. ??on 10/17/2013 4:09 PM . Narrative 10/17/2013 4:09 PM CDT EXAMINATION: 1. Magnetic resonance imaging (MRI) of the brain without and with contrast 2. MRI of the cervical spine without and with contrast 3. MRI of the thoracic spine without and with contrast HISTORY: Multiple sclerosis with worsening left arm numbness, pain and tingling TECHNIQUE: MRI of the brain, cervical and thoracic spine was performed prior to and following the uneventful administration of 6 mL Gadavist intravenous gadolinium contrast according to multiple sclerosis protocol. FINDINGS: Comparison is made with a study from 01/12/2012 and 05/17/2012 Brain: Innumerable T2/FLAIR hyperintensities are seen scattered throughout the cerebral hemispheres, brainstem and cerebellum which appear similar in number to the prior study however many of these lesions are smaller and some demonstrate low T1 signal which indicates myelin vacuolization. No enhancing lesions are identified. No evidence of acute or chronic hemorrhage is identified. No evidence of acute cerebral infarction is seen. There is mild cerebral volume loss with associated ex vacuo ventricular dilatation. No mass effect or midline shift is seen. No enhancing lesions are identified. Diffuse FLAIR hyperintensity along the undersurface of the corpus callosum is unchanged. ??The posterior fossa, brainstem, and craniocervical junction appear normal. The visualized portions of the orbits, paranasal sinuses, and mastoids appear normal. Normal flow voids are demonstrated in the carotid arteries and basilar artery. The calvarium appears normal. Cervical spine: Motion artifact degrades image quality on the STIR and several postcontrast sequences. The alignment is normal. Vertebral bodies are normal in height without evidence of compression fractures. Marrow signal intensity is normal. Several T2/STIR hyperintensities are seen throughout the cervical spine, which are similar in number to the prior study but now appear less conspicuous. The previous cord enlargement has decreased. No definite new lesions are seen. No definite enhancing lesions are identified. The intervertebral discs appear normal. No central canal stenosis is seen. The facets appear normal. The uncovertebral joints appear normal. No neural foraminal stenosis is seen. No soft tissue abnormality is identified. Thoracic spine: The alignment is normal. Vertebral bodies are normal in height without evidence of compression fractures. Marrow signal intensity is normal. The spinal cord appears normal. Innumerable T2/STIR hyperintensities are seen throughout the thoracic spine, appear similar since the prior study. No enhancing lesions are identified. The intervertebral discs appear normal. No central canal stenosis is seen. The facets appear normal. No neural foraminal stenosis is seen. No soft tissue abnormality is identified. Procedure Note Maxwell Acevedo MD - 06/16/2017 EXAMINATION: 1. Magnetic resonance imaging (MRI) of the brain without and withcontrast 2. MRI of the cervical spine without and with contrast 3. MRI of the thoracic spine without and with contrast HISTORY: Multiple sclerosis with worsening left arm numbness, pain andtingling TECHNIQUE: MRI of the brain, cervical and thoracic spine was performedprior to and following the uneventful administration of 6 mL Gadavistintravenous gadolinium contrast according to multiple sclerosisprotocol. FINDINGS: Comparison is made with a study from 01/12/2012 and 05/17/2012 Brain: Innumerable T2/FLAIR hyperintensities are seen scattered throughout thecerebral hemispheres, brainstem and cerebellum which appear similar innumber to the prior study however many of these lesions are smaller andsome demonstrate low T1 signal which indicates myelin vacuolization. No enhancing lesions are identified. No evidence of acute or chronic hemorrhage is identified. No evidence ofacute cerebral infarction is seen. There is mild cerebral volume loss withassociated ex vacuo ventricular dilatation. No mass effect or midlineshift is seen. No enhancing lesions are identified. Diffuse FLAIR hyperintensity along the undersurface of thecorpus callosum is unchanged. The posterior fossa, brainstem, andcraniocervical junction appear normal. The visualized portions of the orbits, paranasal sinuses, and mastoidsappear normal. Normal flow voids are demonstrated in the carotid arteriesand basilar artery. The calvarium appears normal. Cervical spine: Motion artifact degrades image quality on the STIR and severalpostcontrast sequences. The alignment is normal. Vertebral bodies are normal in height withoutevidence of compression fractures. Marrow signal intensity is normal.Several T2/STIR hyperintensities are seen throughout the cervical spine,which are similar in number to the prior study but now appear less conspicuous. The previous cord enlargement hasdecreased. No definite new lesions are seen. No definite enhancing lesionsare identified. The intervertebral discs appear normal. No central canal stenosis is seen.The facets appear normal. The uncovertebral joints appear normal. Noneural foraminal stenosis is seen. No soft tissue abnormality isidentified. Thoracic spine: The alignment is normal. Vertebral bodies are normal in height withoutevidence of compression fractures. Marrow signal intensity is normal. Thespinal cord appears normal. Innumerable T2/STIR hyperintensities are seenthroughout the thoracic spine, appear similar since the prior study. No enhancing lesions areidentified. The intervertebral discs appear normal. No central canal stenosis is seen.The facets appear normal. No neural foraminal stenosis is seen. No softtissue abnormality is identified. IMPRESSION IMPRESSION: 1. Interval decrease in size of innumerable T2/FLAIR hyperintensitiesscattered throughout the brain without enhancement to suggest activedisease. 2. Interval decrease in size of innumerable T2/STIR hyperintensitiesthroughout the cervical spine without enhancement to suggest activedisease. 3. Unchanged innumerable T2/STIR hyperintensities throughout the thoracicspine also without enhancement to suggest active disease. This report was approved by Farzaneh Saha M.D. on 10/17/2013 3:[address] MAXWELL Ahuja M.D. have personally reviewed and interpreted thisexamination/study. This report was electronically signed by MAXWELL ACEVEDO M.D. on 10/17/20134:09 PM . Historical Provider MR ORDERABLES * MRI CERVICAL SPINE WWO CONT (10/17/2013 1:59 PM CDT) Anatomical Region Laterality Modality Spine Other Impressions 10/17/2013 4:09 PM CDT IMPRESSION: 1. Interval decrease in size of innumerable T2/FLAIR hyperintensities scattered throughout the brain without enhancement to suggest active disease. 2. Interval decrease in size of innumerable T2/STIR hyperintensities throughout the cervical spine without enhancement to suggest active disease. 3. Unchanged innumerable T2/STIR hyperintensities throughout the thoracic spine also without enhancement to suggest active disease. This report was approved ??by Farzaneh Saha M.D. ?? on 10/17/2013 3:[address] MAXWELL Ahuja M.D. have personally reviewed and interpreted this examination/study. This report was electronically signed by MAXWELL ACEVEDO M.D. ??on 10/17/2013 4:09 PM . Narrative 10/17/2013 4:09 PM CDT EXAMINATION: 1. Magnetic resonance imaging (MRI) of the brain without and with contrast 2. MRI of the cervical spine without and with contrast 3. MRI of the thoracic spine without and with contrast HISTORY: Multiple sclerosis with worsening left arm numbness, pain and tingling TECHNIQUE: MRI of the brain, cervical and thoracic spine was performed prior to and following the uneventful administration of 6 mL Gadavist intravenous gadolinium contrast according to multiple sclerosis protocol. FINDINGS: Comparison is made with a study from 01/12/2012 and 05/17/2012 Brain: Innumerable T2/FLAIR hyperintensities are seen scattered throughout the cerebral hemispheres, brainstem and cerebellum which appear similar in number to the prior study however many of these lesions are smaller and some demonstrate low T1 signal which indicates myelin vacuolization. No enhancing lesions are identified. No evidence of acute or chronic hemorrhage is identified. No evidence of acute cerebral infarction is seen. There is mild cerebral volume loss with associated ex vacuo ventricular dilatation. No mass effect or midline shift is seen. No enhancing lesions are identified. Diffuse FLAIR hyperintensity along the undersurface of the corpus callosum is unchanged. ??The posterior fossa, brainstem, and craniocervical junction appear normal. The visualized portions of the orbits, paranasal sinuses, and mastoids appear normal. Normal flow voids are demonstrated in the carotid arteries and basilar artery. The calvarium appears normal. Cervical spine: Motion artifact degrades image quality on the STIR and several postcontrast sequences. The alignment is normal. Vertebral bodies are normal in height without evidence of compression fractures. Marrow signal intensity is normal. Several T2/STIR hyperintensities are seen throughout the cervical spine, which are similar in number to the prior study but now appear less conspicuous. The previous cord enlargement has decreased. No definite new lesions are seen. No definite enhancing lesions are identified. The intervertebral discs appear normal. No central canal stenosis is seen. The facets appear normal. The uncovertebral joints appear normal. No neural foraminal stenosis is seen. No soft tissue abnormality is identified. Thoracic spine: The alignment is normal. Vertebral bodies are normal in height without evidence of compression fractures. Marrow signal intensity is normal. The spinal cord appears normal. Innumerable T2/STIR hyperintensities are seen throughout the thoracic spine, appear similar since the prior study. No enhancing lesions are identified. The intervertebral discs appear normal. No central canal stenosis is seen. The facets appear normal. No neural foraminal stenosis is seen. No soft tissue abnormality is identified. Procedure Note Maxwell Acevedo MD - 06/16/2017 EXAMINATION: 1. Magnetic resonance imaging (MRI) of the brain without and withcontrast 2. MRI of the cervical spine without and with contrast 3. MRI of the thoracic spine without and with contrast HISTORY: Multiple sclerosis with worsening left arm numbness, pain andtingling TECHNIQUE: MRI of the brain, cervical and thoracic spine was performedprior to and following the uneventful administration of 6 mL Gadavistintravenous gadolinium contrast according to multiple sclerosisprotocol. FINDINGS: Comparison is made with a study from 01/12/2012 and 05/17/2012 Brain: Innumerable T2/FLAIR hyperintensities are seen scattered throughout thecerebral hemispheres, brainstem and cerebellum which appear similar innumber to the prior study however many of these lesions are smaller andsome demonstrate low T1 signal which indicates myelin vacuolization. No enhancing lesions are identified. No evidence of acute or chronic hemorrhage is identified. No evidence ofacute cerebral infarction is seen. There is mild cerebral volume loss withassociated ex vacuo ventricular dilatation. No mass effect or midlineshift is seen. No enhancing lesions are identified. Diffuse FLAIR hyperintensity along the undersurface of thecorpus callosum is unchanged. The posterior fossa, brainstem, andcraniocervical junction appear normal. The visualized portions of the orbits, paranasal sinuses, and mastoidsappear normal. Normal flow voids are demonstrated in the carotid arteriesand basilar artery. The calvarium appears normal. Cervical spine: Motion artifact degrades image quality on the STIR and severalpostcontrast sequences. The alignment is normal. Vertebral bodies are normal in height withoutevidence of compression fractures. Marrow signal intensity is normal.Several T2/STIR hyperintensities are seen throughout the cervical spine,which are similar in number to the prior study but now appear less conspicuous. The previous cord enlargement hasdecreased. No definite new lesions are seen. No definite enhancing lesionsare identified. The intervertebral discs appear normal. No central canal stenosis is seen.The facets appear normal. The uncovertebral joints appear normal. Noneural foraminal stenosis is seen. No soft tissue abnormality isidentified. Thoracic spine: The alignment is normal. Vertebral bodies are normal in height withoutevidence of compression fractures. Marrow signal intensity is normal. Thespinal cord appears normal. Innumerable T2/STIR hyperintensities are seenthroughout the thoracic spine, appear similar since the prior study. No enhancing lesions areidentified. The intervertebral discs appear normal. No central canal stenosis is seen.The facets appear normal. No neural foraminal stenosis is seen. No softtissue abnormality is identified. IMPRESSION IMPRESSION: 1. Interval decrease in size of innumerable T2/FLAIR hyperintensitiesscattered throughout the brain without enhancement to suggest activedisease. 2. Interval decrease in size of innumerable T2/STIR hyperintensitiesthroughout the cervical spine without enhancement to suggest activedisease. 3. Unchanged innumerable T2/STIR hyperintensities throughout the thoracicspine also without enhancement to suggest active disease. This report was approved by Farzaneh Saha M.D. on 10/17/2013 3:[address] MAXWELL Ahuja M.D. have personally reviewed and interpreted thisexamination/study. This report was electronically signed by MAXWELL ACEVEDO M.D. on 10/17/20134:09 PM . Historical Provider MD MR ORDERABLES * MRI THORACIC SPINE WWO CONT (10/17/2013 1:45 PM CDT) Anatomical Region Laterality Modality Spine Other Impressions 10/17/2013 4:09 PM CDT IMPRESSION: 1. Interval decrease in size of innumerable T2/FLAIR hyperintensities scattered throughout the brain without enhancement to suggest active disease. 2. Interval decrease in size of innumerable T2/STIR hyperintensities throughout the cervical spine without enhancement to suggest active disease. 3. Unchanged innumerable T2/STIR hyperintensities throughout the thoracic spine also without enhancement to suggest active disease. This report was approved ??by Farzaneh Saha M.D. ?? on 10/17/2013 3:[address] MAXWELL Ahuja M.D. have personally reviewed and interpreted this examination/study. This report was electronically signed by MAXWELL ACEVEDO M.D. ??on 10/17/2013 4:09 PM . Narrative 10/17/2013 4:09 PM CDT EXAMINATION: 1. Magnetic resonance imaging (MRI) of the brain without and with contrast 2. MRI of the cervical spine without and with contrast 3. MRI of the thoracic spine without and with contrast HISTORY: Multiple sclerosis with worsening left arm numbness, pain and tingling TECHNIQUE: MRI of the brain, cervical and thoracic spine was performed prior to and following the uneventful administration of 6 mL Gadavist intravenous gadolinium contrast according to multiple sclerosis protocol. FINDINGS: Comparison is made with a study from 01/12/2012 and 05/17/2012 Brain: Innumerable T2/FLAIR hyperintensities are seen scattered throughout the cerebral hemispheres, brainstem and cerebellum which appear similar in number to the prior study however many of these lesions are smaller and some demonstrate low T1 signal which indicates myelin vacuolization. No enhancing lesions are identified. No evidence of acute or chronic hemorrhage is identified. No evidence of acute cerebral infarction is seen. There is mild cerebral volume loss with associated ex vacuo ventricular dilatation. No mass effect or midline shift is seen. No enhancing lesions are identified. Diffuse FLAIR hyperintensity along the undersurface of the corpus callosum is unchanged. ??The posterior fossa, brainstem, and craniocervical junction appear normal. The visualized portions of the orbits, paranasal sinuses, and mastoids appear normal. Normal flow voids are demonstrated in the carotid arteries and basilar artery. The calvarium appears normal. Cervical spine: Motion artifact degrades image quality on the STIR and several postcontrast sequences. The alignment is normal. Vertebral bodies are normal in height without evidence of compression fractures. Marrow signal intensity is normal. Several T2/STIR hyperintensities are seen throughout the cervical spine, which are similar in number to the prior study but now appear less conspicuous. The previous cord enlargement has decreased. No definite new lesions are seen. No definite enhancing lesions are identified. The intervertebral discs appear normal. No central canal stenosis is seen. The facets appear normal. The uncovertebral joints appear normal. No neural foraminal stenosis is seen. No soft tissue abnormality is identified. Thoracic spine: The alignment is normal. Vertebral bodies are normal in height without evidence of compression fractures. Marrow signal intensity is normal. The spinal cord appears normal. Innumerable T2/STIR hyperintensities are seen throughout the thoracic spine, appear similar since the prior study. No enhancing lesions are identified. The intervertebral discs appear normal. No central canal stenosis is seen. The facets appear normal. No neural foraminal stenosis is seen. No soft tissue abnormality is identified. Procedure Note Maxwell Acevedo MD - 06/16/2017 EXAMINATION: 1. Magnetic resonance imaging (MRI) of the brain without and withcontrast 2. MRI of the cervical spine without and with contrast 3. MRI of the thoracic spine without and with contrast HISTORY: Multiple sclerosis with worsening left arm numbness, pain andtingling TECHNIQUE: MRI of the brain, cervical and thoracic spine was performedprior to and following the uneventful administration of 6 mL Gadavistintravenous gadolinium contrast according to multiple sclerosisprotocol. FINDINGS: Comparison is made with a study from 01/12/2012 and 05/17/2012 Brain: Innumerable T2/FLAIR hyperintensities are seen scattered throughout thecerebral hemispheres, brainstem and cerebellum which appear similar innumber to the prior study however many of these lesions are smaller andsome demonstrate low T1 signal which indicates myelin vacuolization. No enhancing lesions are identified. No evidence of acute or chronic hemorrhage is identified. No evidence ofacute cerebral infarction is seen. There is mild cerebral volume loss withassociated ex vacuo ventricular dilatation. No mass effect or midlineshift is seen. No enhancing lesions are identified. Diffuse FLAIR hyperintensity along the undersurface of thecorpus callosum is unchanged. The posterior fossa, brainstem, andcraniocervical junction appear normal. The visualized portions of the orbits, paranasal sinuses, and mastoidsappear normal. Normal flow voids are demonstrated in the carotid arteriesand basilar artery. The calvarium appears normal. Cervical spine: Motion artifact degrades image quality on the STIR and severalpostcontrast sequences. The alignment is normal. Vertebral bodies are normal in height withoutevidence of compression fractures. Marrow signal intensity is normal.Several T2/STIR hyperintensities are seen throughout the cervical spine,which are similar in number to the prior study but now appear less conspicuous. The previous cord enlargement hasdecreased. No definite new lesions are seen. No definite enhancing lesionsare identified. The intervertebral discs appear normal. No central canal stenosis is seen.The facets appear normal. The uncovertebral joints appear normal. Noneural foraminal stenosis is seen. No soft tissue abnormality isidentified. Thoracic spine: The alignment is normal. Vertebral bodies are normal in height withoutevidence of compression fractures. Marrow signal intensity is normal. Thespinal cord appears normal. Innumerable T2/STIR hyperintensities are seenthroughout the thoracic spine, appear similar since the prior study. No enhancing lesions areidentified. The intervertebral discs appear normal. No central canal stenosis is seen.The facets appear normal. No neural foraminal stenosis is seen. No softtissue abnormality is identified. IMPRESSION IMPRESSION: 1. Interval decrease in size of innumerable T2/FLAIR hyperintensitiesscattered throughout the brain without enhancement to suggest activedisease. 2. Interval decrease in size of innumerable T2/STIR hyperintensitiesthroughout the cervical spine without enhancement to suggest activedisease. 3. Unchanged innumerable T2/STIR hyperintensities throughout the thoracicspine also without enhancement to suggest active disease. This report was approved by Farzaneh Saha M.D. on 10/17/2013 3:12 PM . I, Dr. MAXWELL ACEVEDO M.D. have personally reviewed and interpreted thisexamination/study. This report was electronically signed by MAXWELL ACEVEDO M.D. on 10/17/20134:09 PM . Historical Provider MD MR ORDERABLES documented in this encounter Visit Diagnoses Diagnosis Headache Multiple sclerosis (HCC) Multiple sclerosis Disturbance of skin sensation documented in this encounter Care Teams [employer] Relationship Specialty Start Date End Date Michael Palm MD [address] [place] [address] [address] [place] [address] PCP - General Internal Medicine 01/31/16 06/25/17 documented as of this encounter
--- OUTSIDE RECORDS SUMMARY | 2024-03-22 16:41 | XMS_ITS | Encounter Summary ---
Author Organization [facility] Health Address [address] [place] [address] Care Team Providers Care Campaign Associate Name Role Phone Michael Palm MD Primary Care Provider [phone] Encounter Details Date Type Department Care Team (Latest Contact Info) Description 08/14/2014 Hospital Outpatient Visit Historic [facility]IN [facility] [address] [place] [address] Simon Carcamo MD [address] [place] [address] Discharge Disposition: Home or Self Care Social [...] st Contact Info) Description 04/04/2024 8:30 AM SCHOOL PSYCHOLOGICAL EXAMINER Office Visit [facility] - Dermatology [facility]5 [facility], [place] [phone] Marlys Zaragoza MD [address] [place] [address] 3 [place] [phone] 09/03/2024 9:00 AM CDT Office Visit [facility] - Neurology [address] [facility], [place] [phone] Melissa Crook, LISETTE-CLOSET BUILDER [address] [place] [address] documented as of this encounter Procedures Procedure Name Priority Date/Time Associated Diagnosis Comments CBC W AUTO DIFFERENTIAL Routine 08/14/2014 9:30 AM CDT CBC W AUTO DIFFERENTIAL Routine 08/14/2014 9:30 AM CDT HEPATIC FUNCTION PANEL Routine 08/14/2014 9:30 AM CDT documented in this encounter Results * HEPATIC FUNCTION PANEL (08/14/2014 9:30 AM CDT) Protein Total 7.3 6.0 - 8.3 g/dL [facility] Albumin 4.1 3.4 - 5.0 g/dL [facility] Bilirubin Total 0.5 0.2 - 1.2 mg/dL [facility] Bilirubin Conjugated 0.2 0.0 - 0.5 mg/dL [facility] Bilirubin Unconjugated 0.3 Unconjugated Bilirubin is a calculated value: Reference ranges have not been established. mg/dL [facility] Alkaline Phosphatase 62 40 - 150 Units/L [facility] ALT 11 0 - 55 Units/L [facility] AST 10 5 - 34 Units/L [facility] Albumin/Globulin Ratio 1.3 1.1 - 2.3 [facility] Blood specimen (specimen) BLOOD SPECIMEN / Unknown 08/14/2014 9:30 AM CDT 08/14/2014 9:51 AM CDT Historical Provider LAB - CHEMISTRY O RDERABLES [facility] [address] [phone] * (ABNORMAL) CBC W AUTO DIFFERENTIAL (08/14/2014 9:30 AM CDT) WBC 8.4 3.5 - 10.5 10? 3 /uL [facility] RBC 4.63 3.90 - 5.00 10? 6 /uL [facility] Hemoglobin 13.9 12.0 - 15.5 g/dL [facility] Hematocrit 41.5 35.0 - 45.0 % [facility] MCV 89.6 81.0 - 97.0 fL [facility] MCH 30.0 28.0 - 34.0 pg [facility] MCHC 33.5 32.0 - 36.0 g/dL [facility] Platelet Count 292 150 - 400 10? 3 /uL [facility] RDW-SD 45.8 36.0 - 50.0 fL [facility] RDW-CV 14.1 11.2 - 14.8 % [facility] MPV 8.9(L) 9.3 - 12.8 fL [facility] Neutrophils % 53.1 35.0 - 70.0 % [facility] Lymphocytes % 32.9 19.7 - 55.1 % [facility] Monocytes % 7.7 3.0 - 15.0 % [facility] Eosinophils % 4.9 0.0 - 6.0 % [facility] Basophil % 0.7 0.0 - 1.5 % [facility] Neutrophils Absolute 4.4 1.6 - 7.0 10? 3 /uL [facility] Lymphocyte Absolute 2.8 0.8 - 2.9 10? 3 /uL [facility] Monocytes Absolute 0.64 0.14 - 0.66 10? 3 /uL [facility] Eosinophils Absolute 0.41(H) 0.00 - 0.22 10? 3 /uL [facility] Basophils Absolute 0.06 0.00 - 0.06 10? 3 /uL [facility] Immature Granulocytes % 0.7 0.0 - 1.0 % [facility] Blood specimen (specimen) BLOOD SPECIMEN / Unknown 08/14/2014 9:30 AM CDT 08/14/2014 9:44 AM CDT Historical Provider LAB - HEMATOLOGY ORDERABLES [facility] [address] [phone] * CBC W AUTO DIFFERENTIAL (08/14/2014 9:30 AM CDT) Blood specimen (specimen) BLOOD SPECIMEN / Unknown 08/14/2014 9:30 AM CDT Narrative [facility] - 08/14/2014 9:47 AM CDT The following orders were created for panel order CBC w/Differential. Procedure ? Abnormality ? Status ? --------- ? ------ ? CBC WITH DIFFERENTIAL[[id number]] ? Abnormal ?Final result ? Please view results for these tests on the individual orders. Historical Provider MD LAB - HEMATOLOGY ORDERABLES Performing Organization Address City/State/[facility] Co de Phone Number [facility] [address] documented in this encounter Visit Diagnoses Diagnosis Multiple sclerosis (HCC) Multiple sclerosis documented in this encounter Care Teams Campaign Associate Relationship Specialty Start Date End Date Michael Palm MD [address] [place] [address] [address] [place] [address] PCP - General Internal Medicine 01/31/16 06/25/17 documented as of this encounter
--- OUTSIDE RECORDS SUMMARY | 2024-03-22 16:41 | XMS_ITS | Encounter Summary ---
Author Organization [facility] Health Address [address] [facility] [place] [address] Care Team Providers Care Mortgage Loan Reviewer Name Role Phone Michael Palm MD Primary Care Provider [phone] Encounter Details Date Type Department Care Team (Latest Contact Info) Description 08/15/2013 Hospital Outpatient Visit Historic [facility] MA[facility] [address] [place] [address] Simon Carcamo MD [address] [place] [address] Discharge Disposition: Home or Self Care Social [...] Contact Info) Description 04/04/2024 8:30 AM SAMPLE MOUNTER Office Visit [facility] - [facility]erm[facility]5 [facility], [place] [phone] Marlys Zaragoza MD [address] [place] [address] 3 [place] [address] 09/03/2024 9:00 AM CDT Office Visit [facility] - Neurology [address] [facility], [place] [address] Melissa Crook, SEASONAL WAREHOUSE ASSOCIATE-ASSEMBLER [employer]ING [employer] [address] [place] [address] documented as of this encounter Procedures Procedure Name Priority Date/Time Associated Diagnosis Comments DIFFERENTIAL MANUAL Routine 08/15/2013 1 0:25 AM CDT CBC W AUTO DIFFERENTIAL Routine 08/15/2013 10:25 AM CDT CBC W AUTO DIFFERENTIAL Routine 08/15/2013 10:25 AM CDT documented in this encounter Results * CBC W AUTO DIFFERENTIAL (08/15/2013 10:25 AM CDT) Blood specimen (specimen) BLOOD SPECIMEN / Unknown 08/15/2013 10:25 AM CDT [facility] - 08/15/2013 4:53 PM CDT The following orders were created for panel order CBC w Differential. Procedure ? Abnormality ? Status ? --------- ? ------ ? CBC WITH DIFFERENTIAL[[id number]] ? Final result ? MANUAL DIFFERENTIAL[[id number]] ? Abnormal ?Final result ? Please view results for these tests on the individual orders. Historical Provider LAB - HEMATOLOGY ORDERABLES Performing Organization Address [facility]/ZIP Co de Phone Number [facility] [address] * (ABNORMAL) DIFFERENTIAL MANUAL (08/15/2013 10:25 AM CDT) WBC (corrected for NRBC) 10.4 10? 3 /uL [facility] Total Cell Count 100 [facility] Neutrophils Absolute Manual 4.89 1.60 - 7.00 10? 3 /uL [facility] Comment:(BANDS+SEGS) x WBC = NEUT # (ANC) Lymphocyte Absolute Manual 3.22(H) 0.80 - 2.90 10? 3 /uL [facility] Monocytes Absolute Manual 0.52 0.14 - 0.66 10? 3 /uL [facility] Eosinophils Absolute Manual 1.46(H) 0.00 - 0.22 10? 3 /uL [facility] Basophil Absolute Manual 0.21(H) 0.00 - 0.06 10? 3 /uL [facility] Band % Manual 1 0 - 10 % [facility] Neutrophil % Manual 46 30 - 60 % [facility] Lymphocyte % Manual 31 20 - 45 % [facility] Monocytes % Manual 5 2 - 10 % [facility] Eosinophils % Manual 14(H) 1 - 6 % [facility] Basophils % Manual 2 0 - 3 % [facility] Atypical Lymphocyte % Manual 1(H) 0 % [facility] Platelet Estimate Adequate Adequate [facility] [place] Cells 1+(A) None [facility] Blood specimen (specimen) BLOOD SPECIMEN / Unknown 08/15/2013 10:25 AM CDT 08/15/2013 3:06 PM CDT Historical Provider LAB - HEMATOLOGY ORDERABLES Performing Organization Address [facility]/ZIP Co de Phone Number [facility] [address] [phone] * CBC W AUTO DIFFERENTIAL (08/15/2013 10:25 AM CDT) WBC 10.4 3.5 - 10.5 10? 3 /uL [facility] RBC 4.85 3.90 - 5.00 10? 6 /uL [facility] Hemoglobin 14.6 12.0 - 15.5 g/dL [facility] Hematocrit 43.2 35.0 - 45.0 % [facility] MCV 89.1 81.0 - 97.0 fL [facility] MCH 30.1 28.0 - 34.0 pg [facility] MCHC 33.8 32.0 - 36.0 g/dL [facility] Platelet Count 320 150 - 400 10? 3 /uL [facility] RDW-SD 43.4 36.0 - 50.0 fL [facility] RDW-CV 13.3 11.2 - 14.8 % [facility] MPV 10.1 9.3 - 12.8 fL [facility] nRBC Absolute 0.00 0 10? 3 /uL [facility] nRBC Auto 0.0 0 /100 WBC [facility] RET-HE 32.7 pg [facility] Reflex Status Manual Differential to follow. [facility] Blood specimen (specimen) BLOOD SPECIMEN / Unknown 08/15/2013 10:25 AM CDT 08/15/2013 11:09 AM CDT Historical Provider LAB - HEMATOLOGY ORDERABLES Performing Organization Address City/State/[facility] Co de Phone Number [facility] [address] [phone] documented in this encounter Visit Diagnoses Not on filedocumented in this encounter Care Teams Mortgage Loan Reviewer Relationship Specialty Start Date End Date Michael Palm MD [address] [place] [address] [address] [place] [address] PCP - General Internal Medicine 01/31/16 06/25/17 documented as of this encounter
--- OUTSIDE RECORDS SUMMARY | 2024-03-22 16:41 | XMS_ITS | Encounter Summary ---
Author Organization [facility] Health Address [address] [facility] [place] [address] Care Team Providers Care Echocardiography Technologist Name Role Phone Michael Palm MD Primary Care Provider [phone] Encounter Details Date Type Department Care Team (Latest Contact Info) Description 05/08/2014 Hospital Outpatient Visit Historic [facility] MAIN LAB [address] [place] [address] Simon Carcamo MD [address] [place] [address] Discharge Disposition: Home or Self Care Social [...] st Contact Info) Description 04/04/2024 8:30 AM FINGER WAVER Office Visit [facility] - Dermatology [address] [place] [address], [place] [phone] Marlys Zaragoza MD [address] [place] [address] 3 [place] [phone] 09/03/2024 9:00 AM CDT Office Visit [facility] - Neurology 1225 [facility], [facility] [place] [address] Melissa Crook APRN-TECHNICAL SALES ADVISOR [address] [place] [phone] documented as of this encounter Visit Diagnoses Not on filedocumented in this encounter Care Teams Echocardiography Technologist Relationship Specialty Start Date End Date Michael Palm MD [address] [place] [address] [address] [place] [address] PCP - General Internal Medicine 01/31/16 06/25/17 documented as of this encounter
--- OUTSIDE RECORDS SUMMARY | 2024-03-22 16:41 | XMS_ITS | Encounter Summary ---
Author Organization [facility] Health Address [address] [facility] [place] [address] Care Team Providers Care Behavioral Assistant Name Role Phone Michael Palm MD Primary Care Provider [phone] Encounter Details Date Type Department Care Team (Latest Contact Info) Description 11/13/2014 Hospital Outpatient Visit Historic [facility] MA[facility] [address] [place] [address] Simon Carcamo MD [address] [place] [address] Discharge Disposition: Home or Self Care Social [...] st Contact Info) Description 04/04/2024 8:30 AM FOUNDRY OPERATOR Office Visit [facility] - [facility]erm[facility]ology [facility]5 [facility], [place] [address] Marlys Zaragoza MD [address] [place] [address] 3 [place] [phone] 09/03/2024 9:00 AM CDT Office Visit [facility] - Neurology [address] [facility], [place] [phone] Melissa Crook, LISETTE-RN INTERVENTIONAL [address] [place] [address] documented as of this encounter Procedures Procedure Name Priority Date/Time Associated Diagnosis Comments CBC W AUTO DIFFERENTIAL Routine 11/13/2014 9:10 AM CDT CBC W AUTO DIFFERENTIAL Routine 11/13/2014 9:10 AM CDT HEPATIC FUNCTION PANEL Routine 11/13/2014 9:10 AM CDT documented in this encounter Results * HEPATIC FUNCTION PANEL (11/13/2014 9:10 AM CDT) Protein Total 7.1 6.0 - 8.3 g/dL [facility] Albumin 4.3 3.4 - 5.0 g/dL [facility] Bilirubin Total 0.4 0.2 - 1.2 mg/dL [facility] Bilirubin Conjugated 0.1 0.0 - 0.5 mg/dL [facility] Bilirubin Unconjugated 0.3 Unconjugated Bilirubin is a calculated value: Reference ranges have not been established. mg/dL [facility] Alkaline Phosphatase 52 40 - 150 Units/L [facility] ALT 21 0 - 55 Units/L [facility] AST 13 5 - 34 Units/L [facility] Albumin/Globulin Ratio 1.5 1.1 - 2.3 [facility] Blood specimen (specimen) BLOOD SPECIMEN / Unknown 11/13/2014 9:10 AM CDT 11/13/2014 10:18 AM CDT Historical Provider LAB - CHEMISTRY O RDERABLES [facility] [address] [phone] * CBC W AUTO DIFFERENTIAL (11/13/2014 9:10 AM CDT) Blood specimen (specimen) BLOOD SPECIMEN / Unknown 11/13/2014 9:10 AM CDT Narrative [facility] - 11/13/2014 9:36 AM CDT The following orders were created for panel order CBC w/Differential. Procedure ? Abnormality ? Status ? --------- ? ------ ? CBC WITH DIFFERENTIAL[[id number]] ? Abnormal ?Final result ? Please view results for these tests on the individual orders. Historical Provider MD LAB - HEMATOLOGY ORDERABLES Performing Organization Address City/State/[facility] Co de Phone Number [facility] [address] * (ABNORMAL) CBC W AUTO DIFFERENTIAL (11/13/2014 9:10 AM CDT) WBC 9.5 3.5 - 10.5 10? 3 /uL [facility] RBC 4.61 3.90 - 5.00 10? 6 /uL [facility] Hemoglobin 14.0 12.0 - 15.5 g/dL [facility] Hematocrit 41.5 35.0 - 45.0 % [facility] MCV 90.0 81.0 - 97.0 fL [facility] MCH 30.4 28.0 - 34.0 pg [facility] MCHC 33.7 32.0 - 36.0 g/dL [facility] Platelet Count 282 150 - 400 10? 3 /uL [facility] RDW-SD 45.7 36.0 - 50.0 fL [facility] RDW-CV 14.0 11.2 - 14.8 % [facility] MPV 9.2(L) 9.3 - 12.8 fL [facility] Neutrophils % 49.1 35.0 - 70.0 % [facility] Lymphocytes % 34.8 19.7 - 55.1 % [facility] Monocytes % 7.9 3.0 - 15.0 % [facility] Eosinophils % 6.8(H) 0.0 - 6.0 % [facility] Basophil % 0.7 0.0 - 1.5 % [facility] Neutrophils Absolute 4.6 1.6 - 7.0 10? 3 /uL [facility] Lymphocyte Absolute 3.3(H) 0.8 - 2.9 10? 3 /uL [facility] Monocytes Absolute 0.75(H) 0.14 - 0.66 10? 3 /uL [facility] Eosinophils Absolute 0.64(H) 0.00 - 0.22 10? 3 /uL [facility] Basophils Absolute 0.07(H) 0.00 - 0.06 10? 3 /uL [facility] Immature Granulocytes % 0.7 0.0 - 1.0 % [facility] Blood specimen (specimen) BLOOD SPECIMEN / Unknown 11/13/2014 9:10 AM CDT 11/13/2014 9:34 AM CDT Historical Provider LAB - HEMATOLOGY ORDERABLES Performing Organization Address City/State/[facility] Co de Phone Number [facility] [address] [phone] documented in this encounter Visit Diagnoses Diagnosis Multiple sclerosis (HCC) Multiple sclerosis documented in this encounter Care Teams Behavioral Assistant Relationship Specialty Start Date End Date Michael Palm MD [address] [place] [address] [address] [place] [address] PCP - General Internal Medicine 01/31/16 06/25/17 documented as of this encounter
--- OUTSIDE RECORDS SUMMARY | 2024-03-22 16:41 | XMS_ITS | Encounter Summary ---
Author Organization [facility] Health Address [address] [facility] [place] [address] Care Team Providers Care Dye Boarding Machine Operator Name Role Phone Michael Palm MD Primary Care Provider [phone] Encounter Details Date Type Department Care Team (Latest Contact Info) Description 06/29/2014 Hospital Outpatient Visit Historic [facility] [address] [place] [phone] Simon Carcamo MD [address] [place] [address] Discharge Disposition: Home or Self Care Social [...] st Contact Info) Description 04/04/2024 8:30 AM FAMILY DAY CARE PROVIDER Office Visit [facility] - Dermatology [address] [place] [address], [facility] [place] [phone] Marlys Zaragoza MD [address] [place] [address] 3 [place] [phone] 09/03/2024 9:00 AM CDT Office Visit [facility] - Neurology [address] [facility], [place] [address] Melissa Crook APRN-ENGINEERING INSPECTOR [address] [place] [phone] documented as of this encounter Visit Diagnoses Not on filedocumented in this encounter Care Teams Dye Boarding Machine Operator Relationship Specialty Start Date End Date Michael Palm MD [address] [place] [address] [address] [place] [address] PCP - General Internal Medicine 01/31/16 06/25/17 documented as of this encounter
--- OUTSIDE RECORDS SUMMARY | 2024-03-22 16:41 | XMS_ITS | Encounter Summary ---
Author Organization [facility] Health Address [address] [facility] [place] [address] Care Team Providers Care Laundry Routeman Name Role Phone Michael Palm MD Primary Care Provider [phone] Encounter Details Date Type Department Care Team (Latest Contact Info) Description 05/15/2014 Hospital Outpatient Visit Historic [facility] MAIN LAB [address] [place] [address] Simon Carcamo MD [address] [place] [address] Discharge Disposition: Home or Self Care Social [...] st Contact Info) Description 04/04/2024 8:30 AM BARREL RIB MATTING MACHINE OPERATOR Office Visit [facility] - Dermatology [address] [place] [address], [place] [phone] Marlys Zaragoza MD [address] [place] [address] 3 [place] [phone] 09/03/2024 9:00 AM CDT Office Visit [facility] - Neurology [address] [facility], [facility] [place] [address] Melissa Crook APRN-INSOLVENCY CONSULTANT [address] [place] [address] documented as of this encounter Visit Diagnoses Not on filedocumented in this encounter Care Teams Laundry Routeman Relationship Specialty Start Date End Date Michael Palm MD [address] [place] [address] [address] [place] [address] PCP - General Internal Medicine 01/31/16 06/25/17 documented as of this encounter
--- OUTSIDE RECORDS SUMMARY | 2024-03-22 16:41 | XMS_ITS | Encounter Summary ---
Author Organization [facility] Health Address [address] [facility] [facility] [place] [address] Care Team Providers Care Mushroom Packer Name Role Phone Michael Palm MD Primary Care Provider [phone] Encounter Details Date Type Department Care Team (Latest Contact Info) Description 01/12/2012 Hospital Outpatient Visit Historic [facility] MRI [address] [place] [address] Simon Carcamo MD [address] [place] [address] General Medicine Discharge Disposition: Home or Self Care Social [...] st Contact Info) Description 04/04/2024 8:30 AM OPERATING ROOM NURSE Office Visit [facility] - [facility]ermatology [facility] [facility], [place] [address] Marlys Zaragoza MD [address] [place] [address] 3 [place] [address] 09/03/2024 9:00 AM CDT Office Visit [facility] - Neurology [address] [facility], [place] [address] Melissa Crook, METABOLIC SPECIALIST-HOURLY MANAGER [address] [place] [address] documented as of this encounter Procedures Procedure Name Priority Date/Time Associated Diagnosis Comments GLUCOSE ACCUCHECK Routine 01/15/2012 11: 11 AM CDT GLUCOSE ACCUCHECK Routine 01/15/2012 6:1 4 AM CDT GLUCOSE ACCUCHECK Routine 01/14/2012 8:4 1 PM CDT GLUCOSE ACCUCHECK Routine 01/14/2012 5:1 7 PM CDT GLUCOSE ACCUCHECK Routine 01/14/2012 11: 33 AM CDT GLUCOSE ACCUCHECK Routine 01/14/2012 7:0 7 AM CDT GLUCOSE ACCUCHECK Routine 01/13/2012 10: 32 PM CDT GLUCOSE ACCUCHECK Routine 01/13/2012 4:1 7 PM CDT GLUCOSE ACCUCHECK Routine 01/13/2012 10: 39 AM CDT GLUCOSE ACCUCHECK Routine 01/13/2012 5:5 8 AM CDT MRI BRAIN WWO CONTRAST STAT 01/12/2012 5:08 PM CDT documented in this encounter Results * (ABNORMAL) GLUCOSE ACCUCHECK (01/15/2012 11:11 AM CDT) Glucose, Fingerstick 136(H) 70 - 110 MG/DL [facility] Comment:PERFORMED BY: SETH ADAMES 01/15/2012 11:1 1 AM CDT 01/15/2012 11:49 AM CDT Historical Provider LAB - CHEMISTRY Nii CORONEL Performing Organization Address [facility] Co de Phone Number [address] [phone] * (ABNORMAL) GLUCOSE ACCUCHECK (01/15/2012 6:14 AM CDT) Glucose, Fingerstick 157(H) 70 - 110 MG/DL [facility] Comment:PERFORMED BY: ABIOLA MALIK 01/15/2012 6:14 AM CDT 01/15/2012 6:28 AM CDT Historical Provider LAB - CHEMISTRY O HOMER Performing Organization Address [facility] de Phone Number [address] [phone] * (ABNORMAL) GLUCOSE ACCUCHECK (01/14/2012 8:41 PM CDT) Glucose, Fingerstick 117(H) 70 - 110 MG/DL [facility] Comment:PERFORMED BY: SHANE HENAO 01/14/2012 8:41 PM CDT 01/15/2012 11:48 AM CDT Historical Provider LAB - CHEMISTRY Nii CORONEL Performing Organization Address [facility] Co de Phone Number [address] [phone] * (ABNORMAL) GLUCOSE ACCUCHECK (01/14/2012 5:17 PM CDT) Glucose, Fingerstick 112(H) 70 - 110 MG/DL [facility] Comment:PERFORMED BY: KENDAL VAZQUEZ 01/14/2012 5:17 PM CDT 01/14/2012 5:49 PM CDT Historical Provider LAB - CHEMISTRY O RDERABLES Performing Organization Address [facility]/ZIP Co de Phone Number [address] [phone] * GLUCOSE ACCUCHECK (01/14/2012 11:33 AM CDT) Glucose, Fingerstick 106 70 - 110 MG/DL [facility] Comment:PERFORMED BY: TROY MORALES 01/14/2012 11:3 3 AM CDT 01/14/2012 1:41 PM CDT Historical Provider LAB - CHEMISTRY O HOMER Performing Organization Address [facility] Co [place] [address], [facility] [phone] * (ABNORMAL) GLUCOSE ACCUCHECK (01/14/2012 7:07 AM CDT) Glucose, Fingerstick 142(H) 70 - 110 MG/DL [facility] Comment:PERFORMED BY: SASHA CAPUTO 01/14/2012 7:07 AM CDT 01/14/2012 7:32 AM CDT Historical Provider LAB - CHEMISTRY Nii CORONEL Performing Organization Address [facility] Co [place] [address], [facility] [phone] * (ABNORMAL) GLUCOSE ACCUCHECK (01/13/2012 10:32 PM CDT) Glucose, Fingerstick 128(H) 70 - 110 MG/DL [facility] Comment:PERFORMED BY: SASHA CAPUTO 01/13/2012 10:3 2 PM CDT 01/14/2012 1:47 PM CDT Historical Provider LAB - CHEMISTRY O RDERAFAHAD Performing Organization Address [facility]/ZIP [place] [address], [facility] [phone] * GLUCOSE ACCUCHECK (01/13/2012 4:17 PM CDT) Glucose, Fingerstick 91 70 - 110 MG/DL [facility] Comment:PERFORMED BY: DANIEL ROBERTO 01/13/2012 4:17 PM CDT 01/13/2012 4:57 PM CDT Historical Provider LAB - CHEMISTRY O HOMER Performing Organization Address [facility] Co de Phone Number [address] [phone] * (ABNORMAL) GLUCOSE ACCUCHECK (01/13/2012 10:39 AM CDT) Glucose, Fingerstick 129(H) 70 - 110 MG/DL [facility] Comment:PERFORMED BY: DANIEL ROBRETO 01/13/2012 10:3 9 AM CDT 01/14/2012 1:47 PM CDT Historical Provider LAB - CHEMISTRY O HOMER Performing Organization Address [facility] Co de Phone Number [address] [phone] * (ABNORMAL) GLUCOSE ACCUCHECK (01/13/2012 5:58 AM CDT) Glucose, Fingerstick 160(H) 70 - 110 MG/DL [facility] Comment:PERFORMED BY: SHANE HENAO 01/13/2012 5:58 AM CDT 01/13/2012 6:28 AM CDT Historical Provider LAB - CHEMISTRY O ABDIRIZAKERAFAHAD Performing Organization Address [facility] Co de Phone Number [address] [phone] * MRI BRAIN WWO CONTRAST (01/12/2012 5:08 PM CDT) Anatomical Region Laterality Modality Head Other Impressions 01/13/2012 1:25 PM CDT IMPRESSION: [...] PM . May Mcelroy MD MR ORDERABLES documented in this encounter Visit Diagnoses Not on filedocumented in this encounter Care Teams Mushroom Packer Relationship Specialty Start Date End Date Michael Palm MD [address] [place] [address] [address] [place] [address] PCP - General Internal Medicine 01/31/16 06/25/17 documented as of this encounter
--- OUTSIDE RECORDS SUMMARY | 2024-03-22 16:41 | XMS_ITS | Encounter Summary ---
Author Organization [facility] Health Address [address] [place] [address] Care Team Providers Care Lead Manufacturing Technician Name Role Phone Michael Palm MD Primary Care Provider [phone] Encounter Details Date Type Department Care Team (Latest Contact Info) Description 10/10/2013 Hospital Outpatient Visit Historic [facility] OUTPATIENT SERVICES [address] [place] [phone] Simon Carcamo MD [address] [place] [address] Discharge Disposition: Home or Self Care Social [...] st Contact Info) Description 04/04/2024 8:30 AM ROTARY DRIER Office Visit [facility] - Dermatology [address] [place] [address], [facility] [place] [phone] Marlys Zaragoza MD [address] [place] [address] 3 [place] [phone] 09/03/2024 9:00 AM CDT Office Visit [facility] - Neurology [address] [facility], [place] [address] Melissa Crook APRN-NAIL POLISH BRUSH MACHINE FEEDER [address] [place] [address] documented as of this encounter Visit Diagnoses Not on filedocumented in this encounter Care Teams Lead Manufacturing Technician Relationship Specialty Start Date End Date Michael Palm MD [address] [place] [address] [address] [place] [address] PCP - General Internal Medicine 01/31/16 06/25/17 documented as of this encounter
--- OUTSIDE RECORDS SUMMARY | 2024-03-22 16:41 | XMS_ITS | Encounter Summary ---
Author Organization [facility] Health Address [address] [place] [address] Care Team Providers Care Middle School Teacher Name Role Phone Michael Palm MD Primary Care Provider [phone] Encounter Details Date Type Department Care Team (Latest Contact Info) Description 04/10/2014 Hospital Outpatient Visit Historic [facility] MAIN LAB [address] [place] [address] Simon Carcamo MD [address] [place] [address] Discharge Disposition: Home or Self Care Social [...] st Contact Info) Description 04/04/2024 8:30 AM DEPLOYMENT SPECIALIST Office Visit [facility] - Derm[facility]ology [facility]5 [facility], [place] [address] Marlys Zaragoza MD [address] [place] [address] 3 [place] [phone] 09/03/2024 9:00 AM CDT Office Visit [facility] - Neurology [address] [facility], [place] [phone] Melissa Crook, BRICK CATCHER-GAS APPLIANCE MECHANIC [address] [place] [address] documented as of this encounter Procedures Procedure Name Priority Date/Time Associated Diagnosis Comments DIFFERENTIAL MANUAL Routine 04/10/2014 1 1:10 AM DEPLOYMENT SPECIALIST CBC W AUTO DIFFERENTIAL Routine 04/10/2014 11:10 AM DEPLOYMENT SPECIALIST CBC W AUTO DIFFERENTIAL Routine 04/10/2014 11:10 AM DEPLOYMENT SPECIALIST HEPATIC FUNCTION PANEL Routine 04/10/2014 11:10 AM DEPLOYMENT SPECIALIST documented in this encounter Results * HEPATIC FUNCTION PANEL (04/10/2014 11:10 AM DEPLOYMENT SPECIALIST) Protein Total 7.0 6.0 - 8.3 g/dL S [facility] Albumin 4.1 3.4 - 5.0 g/dL [facility] Bilirubin Total 0.3 0.2 - 1.2 mg/dL [facility] Bilirubin Conjugated 0.1 0.0 - 0.5 mg/dL [facility] Bilirubin Unconjugated 0.2 Unconjugated Bilirubin is a calculated value: Reference ranges have not been established. mg/dL [facility] Alkaline Phosphatase 60 40 - 150 Units/L [facility] ALT 17 0 - 55 Units/L [facility] AST 18 5 - 34 Units/L [facility] Albumin/Globulin Ratio 1.4 1.1 - 2.3 [facility] Blood specimen (specimen) BLOOD SPECIMEN / Unknown 04/10/2014 11:10 AM DEPLOYMENT SPECIALIST 04/10/2014 11:25 AM DEPLOYMENT SPECIALIST Historical Provider LAB - CHEMISTRY O RDERABLES [facility] [address] [place], [place] [address] [place] [address] * CBC W AUTO DIFFERENTIAL (04/10/2014 11:10 AM DEPLOYMENT SPECIALIST) Blood specimen (specimen) BLOOD SPECIMEN / Unknown 04/10/2014 11:10 AM DEPLOYMENT SPECIALIST Narrative [facility] - 04/10/2014 12:15 PM DEPLOYMENT SPECIALIST The following orders were created for panel order CBC w/Differential. Procedure ? Abnormality ? Status ? --------- ? ------ ? CBC WITH DIFFERENTIAL[[id number]] ? Abnormal ?Final result ? MANUAL DIFFERENTIAL[[id number]] ? Abnormal ?Final result ? Please view results for these tests on the individual orders. Historical Provider MD LAB - HEMATOLOGY ORDERABLES Performing Organization Address City/State/[facility] Phone Number [facility] [address] [phone] * (ABNORMAL) DIFFERENTIAL MANUAL (04/10/2014 11:10 AM DEPLOYMENT SPECIALIST) WBC (corrected for NRBC) 10.7 10? 3 /uL [facility] Total Cell Count 100 [facility] Neutrophils Absolute Manual 5.78 1.60 - 7.00 10? 3 /uL [facility] Comment:(BANDS+SEGS) x WBC = NEUT # (ANC) Lymphocyte Absolute Manual 2.78 0.80 - 2.90 10? 3 /uL [facility] Monocytes Absolute Manual 0.43 0.14 - 0.66 10? 3 /uL [facility] Eosinophils Absolute Manual 1.39(H) 0.00 - 0.22 10? 3 /uL [facility] Neutrophil % Manual 54 30 - 60 % [facility] Lymphocyte % Manual 26 20 - 45 % [facility] Monocytes % Manual 4 2 - 10 % [facility] Eosinophils % Manual 13(H) 1 - 6 % [facility] Atypical Lymphocyte % Manual 2(H) 0 % [facility] Metamyelocyte % Manual 1(H) 0 % [facility] Platelet Estimate Adequate Adequate [facility] RBC Morphology Normal [facility] Blood specimen (specimen) BLOOD SPECIMEN / Unknown 04/10/2014 11:10 AM DEPLOYMENT SPECIALIST 04/10/2014 11:44 AM DEPLOYMENT SPECIALIST Historical Provider LAB - HEMATOLOGY ORDERABLES Performing Organization Address City/State/[facility] Co de Phone Number [address] [phone] * (ABNORMAL) CBC W AUTO DIFFERENTIAL (04/10/2014 11:10 AM DEPLOYMENT SPECIALIST) WBC 10.7(H) 3.5 - 10.5 10? 3 /uL [facility] RBC 4.56 3.90 - 5.00 10? 6 /uL [facility] Hemoglobin 13.4 12.0 - 15.5 g/dL [facility] Hematocrit 41.4 35.0 - 45.0 % [facility] MCV 90.8 81.0 - 97.0 fL [facility] MCH 29.4 28.0 - 34.0 pg [facility] MCHC 32.4 32.0 - 36.0 g/dL [facility] Platelet Count 288 150 - 400 10? 3 /uL [facility] RDW-SD 45.5 36.0 - 50.0 fL [facility] RDW-CV 13.8 11.2 - 14.8 % [facility] MPV 9.5 9.3 - 12.8 fL [facility] Reflex Status Manual Differential to follow. [facility] Blood specimen (specimen) BLOOD SPECIMEN / Unknown 04/10/2014 11:10 AM DEPLOYMENT SPECIALIST 04/10/2014 11:25 AM DEPLOYMENT SPECIALIST Historical Provider LAB - HEMATOLOGY ORDERABLES [facility] [address] [place] [address] documented in this encounter Visit Diagnoses Diagnosis Multiple sclerosis (HCC) Multiple sclerosis documented in this encounter Care Teams Middle School Teacher Relationship Specialty Start Date End Date Michael Palm MD [address] [place] [address] [address] [place] [address] PCP - General Internal Medicine 01/31/16 06/25/17 documented as of this encounter
--- OUTSIDE RECORDS SUMMARY | 2024-03-22 16:41 | XMS_ITS | Encounter Summary ---
Author Organization [facility] Health Address [address] [facility] [place] [address] Care Team Providers Care Product Management Internship Name Role Phone Michael Palm MD Primary Care Provider [phone] Encounter Details Date Type Department Care Team (Latest Contact Info) Description 10/17/2013 Hospital Outpatient Visit Historic [facility] OUTPATIENT SERVICES [address] [place] [phone] Simon Carcamo MD [address] [place] [address] Discharge Disposition: Home or Self Care Social [...] st Contact Info) Description 04/04/2024 8:30 AM GEOCHEMICAL MANAGER Office Visit [facility] - Dermatology [address] [place] [address], [facility] [place] [address] Marlys Zaragoza MD [address] [place] [address] 3 [place] [address] 09/03/2024 9:00 AM CDT Office Visit [facility] - Neurology [address] [facility], [place] [address] Melissa Crook, MEDICAL DIRECTOR OCCUPATIONAL HEALTH-COMMUNICATIONS BILLING ANALYST [address] [place] [address] documented as of this encounter Procedures Procedure Name Priority Date/Time Associated Diagnosis Comments LAB MISC TEST Routine 10/10/2013 11:25 AM CDT DIFFERENTIAL MANUAL Routine 10/10/2013 1 1:25 AM CDT CBC W AUTO DIFFERENTIAL Routine 10/10/2013 11:25 AM CDT CBC W AUTO DIFFERENTIAL Routine 10/10/2013 11:25 AM CDT HEPATIC FUNCTION PANEL Routine 10/10/2013 11:25 AM CDT documented in this encounter Results * LAB MISC TEST (10/10/2013 11:25 AM CDT) Reference Lab Results SEE SCANNED REPORT [facility] REF LAB NON INTERF Other (qualifier value) 10/10/2013 11:25 AM CDT 10/10/2013 11:39 AM CDT Historical Provider MD LAB SEND OUT [facility] REF LAB NON INTERF * CBC W AUTO DIFFERENTIAL (10/10/2013 11:25 AM CDT) Blood specimen (specimen) BLOOD SPECIMEN / Unknown 10/10/2013 11:25 AM CDT Narrative [facility] - 10/10/2013 1:11 PM CDT The following orders were created for panel order CBC w/Differential. Procedure ? Abnormality ? Status ? --------- ? ------ ? CBC WITH DIFFERENTIAL[[id number]] ? Final result ? MANUAL DIFFERENTIAL[[id number]] ? Abnormal ?Final result ? Please view results for these tests on the individual orders. Historical Provider MD LAB - HEMATOLOGY ORDERABLES Performing Organization Address City/State/[facility] Co de Phone Number [facility] [address] * (ABNORMAL) DIFFERENTIAL MANUAL (10/10/2013 11:25 AM CDT) WBC (corrected for NRBC) 10.2 10? 3 /uL [facility] Total Cell Count 100 [facility] Neutrophils Absolute Manual 5.00 1.60 - 7.00 10? 3 /uL [facility] Comment:(BANDS+SEGS) x WBC = NEUT # (ANC) Lymphocyte Absolute Manual 2.55 0.80 - 2.90 10? 3 /uL [facility] Monocytes Absolute Manual 0.41 0.14 - 0.66 10? 3 /uL [facility] Eosinophils Absolute Manual 2.24(H) 0.00 - 0.22 10? 3 /uL [facility] Neutrophil % Manual 49 30 - 60 % [facility] Lymphocyte % Manual 25 20 - 45 % [facility] Monocytes % Manual 4 2 - 10 % [facility] Eosinophils % Manual 22(H) 1 - 6 % [facility] Platelet Estimate Adequate Adequate [facility] Lauren Cells 1+(A) None [facility] Blood specimen (specimen) BLOOD SPECIMEN / Unknown 10/10/2013 11:25 AM CDT 10/10/2013 12:38 PM CDT Historical Provider LAB - HEMATOLOGY ORDERABLES Performing Organization Address City/[facility]/ZIP Co de Phone Number [address] [phone] * CBC W AUTO DIFFERENTIAL (10/10/2013 11:25 AM CDT) WBC 10.2 3.5 - 10.5 10? 3 /uL [facility] RBC 4.70 3.90 - 5.00 10? 6 /uL [facility] Hemoglobin 14.3 12.0 - 15.5 g/dL [facility] Hematocrit 41.4 35.0 - 45.0 % [facility] MCV 88.1 81.0 - 97.0 fL [facility] MCH 30.4 28.0 - 34.0 pg [facility] MCHC 34.5 32.0 - 36.0 g/dL [facility] Platelet Count 246 150 - 400 10? 3 /uL [facility] RDW-SD 42.4 36.0 - 50.0 fL [facility] RDW-CV 13.1 11.2 - 14.8 % [facility] MPV 9.4 9.3 - 12.8 fL [facility] nRBC Absolute 0.00 0 10? 3 /uL [facility] nRBC Auto 0.0 0 /100 WBC [facility] Reflex Status Manual Differential to follow. [facility] Blood specimen (specimen) BLOOD SPECIMEN / Unknown 10/10/2013 11:25 AM CDT 10/10/2013 11:39 AM CDT Historical Provider LAB - HEMATOLOGY ORDERABLES [address] [phone] * HEPATIC FUNCTION PANEL (10/10/2013 11:25 AM CDT) Bilirubin Conjugated 0.1 0.0 - 0.5 mg/dL [facility] Bilirubin Unconjugated 0.3 Unconjugated Bilirubin is a calculated value: Reference ranges have not been established. mg/dL [facility] Albumin/Globulin Ratio 1.3 1.1 - 2.3 [facility] Protein Total 6.9 6.0 - 8.3 g/dL [facility] Albumin 3.9 3.4 - 5.0 g/dL [facility] Bilirubin Total 0.4 0.2 - 1.2 mg/dL [facility] Alkaline Phosphatase 54 40 - 150 Units/L [facility] ALT 36 0 - 55 Units/L [facility] AST 20 5 - 34 Units/L [facility] Blood specimen (specimen) BLOOD SPECIMEN / Unknown 10/10/2013 11:25 AM CDT 10/10/2013 11:39 AM CDT Historical Provider LAB - CHEMISTRY O RDERABLES [facility] [address] [place] [address] documented in this encounter Visit Diagnoses Diagnosis Multiple sclerosis (HCC) Multiple sclerosis documented in this encounter Care Teams Product Management Internship Relationship Specialty Start Date End Date Michael Palm MD [address] [place], [place] [address] [place] [address] PCP - General Internal Medicine 01/31/16 06/25/17 documented as of this encounter
--- OUTSIDE RECORDS SUMMARY | 2024-03-22 16:41 | XMS_ITS | Encounter Summary ---
Author Organization [facility] Health Address [address] [facility] [place] [address] Care Team Providers Care Uptwister Tender Name Role Phone Michael Palm MD Primary Care Provider [phone] Encounter Details Date Type Department Care Team (Latest Contact Info) Description 05/16/2012 Hospital Outpatient Visit Historic [facility] OUTPATIENT SERVICES [address] [place] [phone] Simon Carcamo MD [address] [place] [address] Discharge Disposition: Home or Self Care Social [...] st Contact Info) Description 04/04/2024 8:30 AM TELEPHOTO INSTALLER Office Visit [facility] - Dermatology [address] [place] [address], [facility] [place] [phone] Marlys Zaragoza MD [address] [place] [address] 3 [place] [phone] 09/03/2024 9:00 AM CDT Office Visit [facility] [address] [facility], [place] [address] Melissa Crook APRN-MANAGER [place]OURCING [address] [place] [phone] documented as of this encounter Visit Diagnoses Not on filedocumented in this encounter Care Teams Uptwister Tender Relationship Specialty Start Date End Date Michael Palm MD [address] [place] [address] [address] [place] [address] PCP - General Internal Medicine 01/31/16 06/25/17 documented as of this encounter
--- OUTSIDE RECORDS SUMMARY | 2024-03-22 16:41 | XMS_ITS | Encounter Summary ---
Author Organization [facility] Health Address [address] [place] [address] Care Team Providers Care Core Carrier Name Role Phone Michael Palm MD Primary Care Provider [phone] Encounter Details Date Type Department Care Team (Latest Contact Info) Description 06/20/2013 Hospital Outpatient Visit Historic [facility] MAIN LAB [address] [place] [address] Simon Carcamo MD [address] [place] [address] Discharge Disposition: Home or Self Care Social [...] st Contact Info) Description 04/04/2024 8:30 AM STRAWBERRY GROWER Office Visit [facility] - Dermatology [address] [place] [address], [place] [phone] Marlys Zaragoza MD [address] [place] [address] 3 [place] [phone] 09/03/2024 9:00 AM CDT Office Visit [facility] - Neurology [address] [facility], [place] [phone] Melissa Crook, AUTO HIKER-INSURANCE FOLLOW UP SPECIALIST [address] [place] [phone] documented as of this encounter Procedures Procedure Name Priority Date/Time Associated Diagnosis Comments DIFFERENTIAL MANUAL Routine 06/20/2013 1 0:05 AM CDT CBC W AUTO DIFFERENTIAL Routine 06/20/2013 10:05 AM CDT CBC W AUTO DIFFERENTIAL Routine 06/20/2013 10:05 AM CDT HEPATIC FUNCTION PANEL Routine 06/20/2013 10:05 AM CDT documented in this encounter Results * (ABNORMAL) DIFFERENTIAL MANUAL (06/20/2013 10:05 AM CDT) WBC (corrected for NRBC) 14.4 10? 3 /uL [facility] Total Cell Count 100 [facility] Neutrophils Absolute Manual 8.21(H) 1.60 - 7.00 10? 3 /uL [facility] Comment:(BANDS+SEGS) x WBC = NEUT # (ANC) Lymphocyte Absolute Manual 3.02(H) 0.80 - 2.90 10? 3 /uL [facility] Monocytes Absolute Manual 0.58 0.14 - 0.66 10? 3 /uL [facility] Eosinophils Absolute Manual 2.45(H) 0.00 - 0.22 10? 3 /uL [facility] Basophil Absolute Manual 0.14(H) 0.00 - 0.06 10? 3 /uL [facility] Neutrophil % Manual 57 30 - 60 % [facility] Lymphocyte % Manual 21 20 - 45 % [facility] Monocytes % Manual 4 2 - 10 % [facility] Eosinophils % Manual 17(H) 1 - 6 % [facility] Basophils % Manual 1 0 - 3 % [facility] Platelet Estimate Adequate Adequate [facility] RBC Morphology Normal [facility] Blood specimen (specimen) BLOOD SPECIMEN / Unknown 06/20/2013 10:05 AM CDT 06/20/2013 1:02 PM CDT Historical Provider LAB - HEMATOLOGY ORDERABLES Performing Organization Address [facility] de Phone Number [facility] [address] [phone] * CBC W AUTO DIFFERENTIAL (06/20/2013 10:05 AM CDT) Blood specimen (specimen) BLOOD SPECIMEN / Unknown 06/20/2013 10:05 AM CDT Narrative [facility] - 06/20/2013 2:39 PM CDT The following orders were created for panel order CBC w Differential. Procedure ? Abnormality ? Status ? --------- ? ------ ? CBC WITH DIFFERENTIAL[[id number]] ? Abnormal ?Final result ? MANUAL DIFFERENTIAL[[id number]] ? Abnormal ?Final result ? Please view results for these tests on the individual orders. Historical Provider LAB - HEMATOLOGY ORDERABLES Performing Organization Address [facility] Co de Phone Number [facility] [address] [place] [address], [facility] * HEPATIC FUNCTION PANEL (06/20/2013 10:05 AM CDT) Bilirubin Conjugated 0.2 0.0 - 0.5 mg/dL [facility] Bilirubin Unconjugated 0.2 Unconjugated Bilirubin is a calculated value: Reference ranges have not been established. mg/dL [facility] Albumin/Globulin Ratio 1.2 1.1 - 2.3 [facility] Protein Total 6.9 6.0 - 8.3 g/dL [facility] Albumin 3.8 3.4 - 5.0 g/dL [facility] Bilirubin Total 0.4 0.2 - 1.2 mg/dL [facility] Alkaline Phosphatase 54 40 - 150 Units/L [facility] ALT 8 0 - 55 Units/L [facility] AST 9 5 - 34 Units/L [facility] Blood specimen (specimen) BLOOD SPECIMEN / Unknown 06/20/2013 10:05 AM CDT 06/20/2013 10:55 AM CDT Historical Provider LAB - CHEMISTRY O RDERABLES Performing Organization Address City/State/[facility] Co de Phone Number [address] [phone] * (ABNORMAL) CBC W AUTO DIFFERENTIAL (06/20/2013 10:05 AM CDT) WBC 14.4(H) 3.5 - 10.5 10? 3 /uL [facility] RBC 4.79 3.90 - 5.00 10? 6 /uL [facility] Hemoglobin 14.2 12.0 - 15.5 g/dL [facility] Hematocrit 43.0 35.0 - 45.0 % [facility] MCV 89.8 81.0 - 97.0 fL [facility] MCH 29.6 28.0 - 34.0 pg [facility] MCHC 33.0 32.0 - 36.0 g/dL [facility] Platelet Count 298 150 - 400 10? 3 /uL [facility] RDW-SD 43.4 36.0 - 50.0 fL [facility] RDW-CV 13.2 11.2 - 14.8 % [facility] MPV 9.9 9.3 - 12.8 fL [facility] nRBC Absolute 0.02(H) 0 10? 3 /uL [facility] nRBC Auto 0.1(H) 0 /100 WBC [facility] Reflex Status Manual Differential to follow. [facility] Blood specimen (specimen) BLOOD SPECIMEN / Unknown 06/20/2013 10:05 AM CDT 06/20/2013 10:55 AM CDT Historical Provider MD LAB - HEMATOLOGY ORDERABLES Performing Organization Address City/State/[facility] Co de Phone Number [facility] [address] [phone] documented in this encounter Visit Diagnoses Not on filedocumented in this encounter Care Teams Core Carrier Relationship Specialty Start Date End Date Michael Palm MD [address] [place] [address] [address] [place] [address] PCP - General Internal Medicine 01/31/16 06/25/17 documented as of this encounter
--- OUTSIDE RECORDS SUMMARY | 2024-03-22 16:41 | XMS_ITS | Encounter Summary ---
Author Organization [facility] Health Address [address] [place] [address] Care Team Providers Care Tank Bottom Assembler Name Role Phone Michael Palm MD Primary Care Provider [phone] Encounter Details Date Type Department Care Team (Latest Contact Info) Description 07/26/2011 Emergency Department Historic [facility] EMERGENCY DEPARTMENT [address] [place] [address] Discharge Disposition: Home or Self Care Social [...] st Contact Info) Description 04/04/2024 8:30 AM CRADLE PLACER Office Visit [facility] - Dermatology [address] [place] [address], [place] [phone] Marlys Zaragoza MD [address] [place] [address] 3 [place] [phone] 09/03/2024 9:00 AM CDT Office Visit [facility] - Neurology [address] [place] [address], [facility] [place] [address] Melissa Crook, LISETTE-MEDICAL RADIATION THERAPIST [address] [place] [phone] documented as of this encounter Visit Diagnoses Not on filedocumented in this encounter Care Teams Tank Bottom Assembler Relationship Specialty Start Date End Date Michael Palm MD [address] [place] [address] [address] [place] [address] PCP - General Internal Medicine 01/31/16 06/25/17 documented as of this encounter
--- OUTSIDE RECORDS SUMMARY | 2024-03-22 16:41 | XMS_ITS | Encounter Summary ---
Author Organization [facility] Health Address [address] [place] [address] Care Team Providers Care Scallop Cutter Name Role Phone Michael Palm MD Primary Care Provider [phone] Encounter Details Date Type Department Care Team (Latest Contact Info) Description 06/25/2014 Hospital Outpatient Visit Historic [facility] OUTPATIENT SERVICES [address] [place] [phone] Simon Carcamo MD [address] [place] [address] Discharge Disposition: Home or Self Care Social [...] st Contact Info) Description 04/04/2024 8:30 AM WAGE ADJUSTER Office Visit [facility] - Dermatology [address] [place] [address], [facility] [place] [phone] Marlys Zaragoza MD [address] [place] [address] 3 [place] [phone] 09/03/2024 9:00 AM CDT Office Visit [facility] - Neurology [address] [facility], [place] [phone] Melissa Crook, ROLL UP GUIDER OPERATOR-ZINC MINER BLASTING [address] [place] [phone] documented as of this encounter Procedures Procedure Name Priority Date/Time Associated Diagnosis Comments MRI BRAIN WWO CONTRAST Routine 06/25/2014 3:07 PM CDT CREATININE BLOOD - POCT (IP) [facility] Routine 06/25/2014 documented in this encounter Results * MRI BRAIN WWO CONTRAST (06/25/2014 3:07 PM CDT) Anatomical Region Laterality Modality Head Other Impressions 06/25/2014 4:32 PM CDT IMPRESSION: 1. No significant change in multiple subcortical and periventricular T2/FLAIR hyperintensities involving the cerebral hemispheres, cerebellum, and brainstem. No new lesions are identified. No postcontrast images could be obtained secondary to IV contrast infiltration. The patient will return in approximately 10 days at the time of spine MRI for postcontrast imaging of the brain. At that time an addendum will be added to the report describing any new findings. This report was approved ??by Patrice Jolley M.D. ?? on 06/25/2014 4:02 PM . I, Dr. DIMPLE GREENBERG M.D. have personally reviewed and interpreted this examination/study. This report was electronically signed by DIMPLE GREENBERG M.D. ??on 06/25/2014 4:32 PM . Narrative 06/25/2014 4:32 PM CDT EXAMINATION: Magnetic resonance imaging (MRI) of the brain without and with contrast HISTORY: Patient is a 33-year-old female with a history of multiple sclerosis. Recently turned positive for this SUE virus antibody. TECHNIQUE: MRI of the brain was performed prior to and following the uneventful administration of 7 mL Gadavist intravenous gadolinium contrast according to a tumor protocol. However, there was infiltration of the IV contrast injection. The site of injection was examined by Eduardo Young MD, assistant to the vice president and no significant abnormality was identified. No contrast is seen on the postcontrast images. The patient will be rescheduled in approximately 10 days for post contrast images while undergoing their previously ordered spine MRI. FINDINGS: Comparison is made with the prior brain MRI in the 02/10/2014. There are numerous T2/FLAIR hyperintensities scattered throughout the bilateral cerebral hemispheres, cerebellum, and brainstem. The size and distribution of these T2/FLAIR hyperintensities are essentially unchanged in appearance when compared with the MRI of the brain dated 02/10/2014. Some of these lesions demonstrate corresponding areas of T1 hypointensity indicating myelin vacuolization. This is unchanged when compared with the prior exam. Mild cerebral volume loss is noted. There is also associated ex vacuo dilatation of the ventricular system. No evidence of acute or chronic hemorrhage is identified. No evidence of acute cerebral infarction is seen. No mass effect or midline shift is seen. Again, diffuse FLAIR hyperintensity along the undersurface of the corpus callosum is seen and appears unchanged when compared with the prior exam. The sella appears normal. The visualized portions of the orbits, paranasal sinuses, and mastoids appear normal. Normal flow voids are demonstrated in the carotid arteries and basilar artery. The calvarium and visualized cervical spine appear normal. Procedure Note Dimple Greenberg MD - 09/08/2019 EXAMINATION: Magnetic resonance imaging (MRI) of the brain without andwith contrast HISTORY: Patient is a 33-year-old female with a history of multiplesclerosis. Recently turned positive for this SUE virus antibody. TECHNIQUE: MRI of the brain was performed prior to and following theuneventful administration of 7 mL Gadavist intravenous gadolinium contrastaccording to a tumor protocol. However, there was infiltration of the IVcontrast injection. The site of injection was examined by Eduardo Young MD, assistant to the vice president and nosignificant abnormality was identified. No contrast is seen on thepostcontrast images. The patient will be rescheduled in approximately 10days for post contrast images while undergoing their previously ordered spine MRI. FINDINGS: Comparison is made with the prior brain MRI in the 02/10/2014. There are numerous T2/FLAIR hyperintensities scattered throughout thebilateral cerebral hemispheres, cerebellum, and brainstem. The size anddistribution of these T2/FLAIR hyperintensities are essentially unchangedin appearance when compared with the MRI of the brain dated 02/10/2014. Some of these lesions demonstratecorresponding areas of T1 hypointensity indicating myelin vacuolization.This is unchanged when compared with the prior exam. Mild cerebral volume loss is noted. There is also associated ex vacuodilatation of the ventricular system. No evidence of acute or chronichemorrhage is identified. No evidence of acute cerebral infarction isseen. No mass effect or midline shift is seen. Again, diffuse FLAIR hyperintensity along the undersurface of thecorpus callosum is seen and appears unchanged when compared with the priorexam. The sella appears normal. The visualized portions of the orbits, paranasal sinuses, and mastoidsappear normal. Normal flow voids are demonstrated in the carotid arteriesand basilar artery. The calvarium and visualized cervical spine appearnormal. IMPRESSION IMPRESSION: 1. No significant change in multiple subcortical and periventricularT2/FLAIR hyperintensities involving the cerebral hemispheres, cerebellum,and brainstem. No new lesions are identified. No postcontrast images couldbe obtained secondary to IV contrast infiltration. The patient will return in approximately 10 days at thetime of spine MRI for postcontrast imaging of the brain. At that time anaddendum will be added to the report describing any new findings. This report was approved by Patrice Jolley M.D. on 06/25/2014 4:02 PM . I, Dr. DIMPLE GREENBERG M.D. have personally reviewed and interpreted thisexamination/study. This report was electronically signed by DIMPLE GREENBERG M.D. on 06/25/20144:32 PM . Historical Provider MR ORDERABLES * CREATININE BLOOD - POCT (IP) [facility] (06/25/2014) Creatinine POCT 0.86 0.3 - 1.3 mg/dL [facility] eGFR POCT 60 60 ml/min [facility] 06/25/2014 Maxwell Echols MD LAB - POINT OF CARE ORDERABLES [facility] documented in this encounter Visit Diagnoses Diagnosis Multiple sclerosis (HCC) Multiple sclerosis documented in this encounter Care Teams Scallop Cutter Relationship Specialty Start Date End Date Michael Palm MD [address] [place] [address] [address] [place] [address] PCP - General Internal Medicine 01/31/16 06/25/17 documented as of this encounter
--- OUTSIDE RECORDS SUMMARY | 2024-03-22 16:41 | XMS_ITS | Encounter Summary ---
Author Organization [facility] Health Address [address] [facility] [facility] [address] [place] [address] Care Team Providers Care Instant Potato Processor Name Role Phone Michael Palm MD Primary Care Provider [phone] Encounter Details Date Type Department Care Team (Latest Contact Info) Description 11/07/2013 Hospital Outpatient Visit Historic [facility] MAIN LAB [address] [place] [address] Simon Carcamo MD [address] [place] [address] Discharge Disposition: Home or Self Care Social [...] st Contact Info) Description 04/04/2024 8:30 AM REPEAT CHIEF Office Visit [facility] - Dermatology [address] [place] [address], [place] [phone] Marlys Zaragoza MD [address] [place] [address] 3 [place] [address] 09/03/2024 9:00 AM CDT Office Visit [facility] - Neurology [address] [facility], [place] [phone] Melissa Crook, LISETTE-QUALITY COMPLIANCE CONSULTANT [address] [place] [phone] documented as of this encounter Procedures Procedure Name Priority Date/Time Associated Diagnosis Comments LAB MISC TEST Routine 11/07/2013 10:46 AM CDT documented in this encounter Results * LAB MISC TEST (11/07/2013 10:46 AM CDT) Reference Lab Results SEE SCANNED RESULT [facility] REF LAB NON INTERF Other (qualifier value) 11/07/2013 10:46 AM CDT 11/07/2013 11:11 AM CDT Historical Provider MD LAB SEND OUT [facility] REF LAB NON INTERF documented in this encounter Visit Diagnoses Not on filedocumented in this encounter Care Teams Instant Potato Processor Relationship Specialty Start Date End Date Michael Palm MD [address] [place] [address] [address] [place] [address] PCP - General Internal Medicine 01/31/16 06/25/17 documented as of this encounter
--- OUTSIDE RECORDS SUMMARY | 2024-03-22 16:41 | XMS_ITS | Encounter Summary ---
Author Organization [facility] Address [address] [facility] [place] [address] Care Team Providers Care Battery Technician Name Role Phone Michael Palm MD Primary Care Provider [phone] Encounter Details Date Type Department Care Team (Latest Contact Info) Description 07/18/2013 Hospital Outpatient Visit Historic [facility] [address] [place] [address] Simon Carcamo MD [address] [place] [address] Discharge Disposition: Home or Self Care Social [...] st Contact Info) Description 04/04/2024 8:30 AM CANDY BAR ATTENDANT Office Visit [facility] - Dermatology [address] [place] [address], [place] [phone] Marlys Zaragoza MD [address] [place] [address] 3 [place] [address] 09/03/2024 9:00 AM CDT Office Visit [facility] - Neurology [address] [facility], [place] [phone] Melissa Crook, TRAVEL COUNSELOR-CASTING MACHINE CONTROL BOARD OPERATOR [address] [place] [address] documented as of this encounter Procedures Procedure Name Priority Date/Time Associated Diagnosis Comments DIFFERENTIAL MANUAL Routine 07/18/2013 1 0:00 AM CDT CBC W AUTO DIFFERENTIAL Routine 07/18/2013 10:00 AM CDT CBC W AUTO DIFFERENTIAL Routine 07/18/2013 10:00 AM CDT HEPATIC FUNCTION PANEL Routine 07/18/2013 10:00 AM CDT documented in this encounter Results * CBC W AUTO DIFFERENTIAL (07/18/2013 10:00 AM CDT) Blood specimen (specimen) BLOOD SPECIMEN / Unknown 07/18/2013 10:00 AM CDT [facility] - 07/18/2013 1:36 PM CDT The following orders were created for panel order CBC w Differential. Procedure ? Abnormality ? Status ? --------- ? ------ ? CBC WITH DIFFERENTIAL[[id number]] ? Abnormal ?Final result ? MANUAL DIFFERENTIAL[[id number]] ? Abnormal ?Final result ? Please view results for these tests on the individual orders. Historical Provider LAB - HEMATOLOGY ORDERABLES Performing Organization Address [facility] Co de Phone Number [facility] [address] * (ABNORMAL) DIFFERENTIAL MANUAL (07/18/2013 10:00 AM CDT) WBC (corrected for NRBC) 11.3 10? 3 /uL [facility] Total Cell Count 100 [facility] Neutrophils Absolute Manual 4.29 1.60 - 7.00 10? 3 /uL [facility] Comment:(BANDS+SEGS) x WBC = NEUT # (ANC) Lymphocyte Absolute Manual 3.62(H) 0.80 - 2.90 10? 3 /uL [facility] Monocytes Absolute Manual 0.45 0.14 - 0.66 10? 3 /uL [facility] Eosinophils Absolute Manual 2.71(H) 0.00 - 0.22 10? 3 /uL [facility] Neutrophil % Manual 38 30 - 60 % [facility] Lymphocyte % Manual 32 20 - 45 % [facility] Monocytes % Manual 4 2 - 10 % [facility] Eosinophils % Manual 24(H) 1 - 6 % [facility] Atypical Lymphocyte % Manual 1(H) 0 % [facility] Metamyelocyte % Manual 1(H) 0 % [facility] Platelet Estimate Adequate Adequate [facility] RBC Morphology Normal [facility] Giant Platelets Rare(A) None [facility] Blood specimen (specimen) BLOOD SPECIMEN / Unknown 07/18/2013 10:00 AM CDT 07/18/2013 11:48 AM CDT Historical Provider LAB - HEMATOLOGY ORDERABLES Performing Organization Address [facility]/ZIP Co de Phone Number [facility] [address] [phone] * (ABNORMAL) CBC W AUTO DIFFERENTIAL (07/18/2013 10:00 AM CDT) WBC 11.3(H) 3.5 - 10.5 10? 3 /uL [facility] RBC 4.84 3.90 - 5.00 10? 6 /uL [facility] Hemoglobin 14.4 12.0 - 15.5 g/dL [facility] Hematocrit 42.8 35.0 - 45.0 % [facility] MCV 88.4 81.0 - 97.0 fL [facility] MCH 29.8 28.0 - 34.0 pg [facility] MCHC 33.6 32.0 - 36.0 g/dL [facility] Platelet Count 297 150 - 400 10? 3 /uL [facility] RDW-SD 42.1 36.0 - 50.0 fL [facility] RDW-CV 13.1 11.2 - 14.8 % [facility] MPV 9.8 9.3 - 12.8 fL [facility] Reflex Status Manual Differential to follow. [facility] Blood specimen (specimen) BLOOD SPECIMEN / Unknown 07/18/2013 10:00 AM CDT 07/18/2013 10:31 AM CDT Historical Provider LAB - HEMATOLOGY ORDERABLES Performing Organization Address City/State/[facility] Co de Phone Number [address] [phone] * HEPATIC FUNCTION PANEL (07/18/2013 10:00 AM CDT) Bilirubin Conjugated 0.1 0.0 - 0.5 mg/dL [facility] Bilirubin Unconjugated 0.2 Unconjugated Bilirubin is a calculated value: Reference ranges have not been established. mg/dL [facility] Albumin/Globulin Ratio 1.4 1.1 - 2.3 [facility] Protein Total 7.1 6.0 - 8.3 g/dL [facility] Albumin 4.2 3.4 - 5.0 g/dL [facility] Bilirubin Total 0.3 0.2 - 1.2 mg/dL [facility] Alkaline Phosphatase 61 40 - 150 Units/L [facility] ALT 11 0 - 55 Units/L [facility] AST 10 5 - 34 Units/L [facility] Blood specimen (specimen) BLOOD SPECIMEN / Unknown 07/18/2013 10:00 AM CDT 07/18/2013 10:31 AM CDT Historical Provider LAB - CHEMISTRY O RDERABLES [place] [id number] [phone] documented in this encounter Visit Diagnoses Not on filedocumented in this encounter Care Teams Battery Technician Relationship Specialty Start Date End Date Michael Palm MD [address] [place] [address] [address] [place] [address] PCP - General Internal Medicine 01/31/16 06/25/17 documented as of this encounter
--- OUTSIDE RECORDS SUMMARY | 2024-03-22 16:41 | XMS_ITS | Encounter Summary ---
Author Organization [facility] Health Address [address] [place] [address] Care Team Providers Care Assistant Therapy Aide Name Role Phone Michael Palm MD Primary Care Provider [phone] Encounter Details Date Type Department Care Team (Late Contact Info) Description 02/02/2014 Hospital Outpatient Visit Historic [facility] MAIN LAB [address] [place] [address] Jad Marquez MD [address] [place] [address] OF HEMATOLOGY & [place] [address] Discharge Disposition: Home or Self Care Social [...] (Late Contact Info) Description 04/04/2024 8:30 AM ICHTHYOLOGY TEACHER Office Visit [facility] - Dermatology [address] [place] [address], [place] [address] Marlys Zaragoza MD [address] [place] [address] 3 [place] [address] 09/03/2024 9:00 AM CDT Office Visit [facility] - Neurology [address] [facility] [place] [address] Ambreen Melissa, SOFTWARE SALES-SEISMIC PLOTTER [address] [place] [address] documented as of this encounter Procedures Procedure Name Priority Date/Time Associated Diagnosis Comments DIFFERENTIAL MANUAL STAT 02/02/2014 3 :41 PM ICHTHYOLOGY TEACHER CBC W AUTO DIFFERENTIAL STAT 02/02/2014 3:41 PM ICHTHYOLOGY TEACHER CBC W AUTO DIFFERENTIAL STAT 02/02/2014 3:41 PM ICHTHYOLOGY TEACHER COMPREHENSIVE METABOLIC PANEL STAT 02/02/2014 3:41 PM ICHTHYOLOGY TEACHER documented in this encounter Results * (ABNORMAL) COMPREHENSIVE METABOLIC PANEL (02/02/2014 3:41 PM ICHTHYOLOGY TEACHER) BUN 17 7 - 26 mg/dL [facility] Creatinine 0.7 0.6 - 1.2 mg/dL [facility] Sodium 143 136 - 145 mmol/L [facility] Potassium 4.1 3.5 - 4.5 mmol/L [facility] Chloride 111(H) 98 - 107 mmol/L [facility] CO2 25 22 - 29 mmol/L [facility] Glucose 99 70 - 115 mg/dL [facility] Calcium 9.6 8.4 - 10.2 mg/dL [facility] Protein Total 7.2 6.0 - 8.3 g/dL [facility] Albumin 4.1 3.4 - 5.0 g/dL [facility] Bilirubin Total 0.4 0.2 - 1.2 mg/dL [facility] Alkaline Phosphatase 53 40 - 150 Units/L [facility] ALT 7 0 - 55 Units/L [facility] AST 9 5 - 34 Units/L [facility] Anion Gap 11 8 - 18 [facility] BUN/Creatinine Ratio 24(H) 7 - 23 [facility] Osmolality Calculated 283 270 - 300 mOsm/kg [facility] Albumin/Globulin Ratio 1.3 1.1 - 2.3 [facility] eGFR >60 >60 mL/min/1.7 3 m2 [facility] Blood specimen (specimen) BLOOD SPECIMEN / Unknown 02/02/2014 3:41 PM ICHTHYOLOGY TEACHER 02/02/2014 3:52 PM ICHTHYOLOGY TEACHER Jad Marquez MD LAB - CHEMISTRY MAGDALENA DOBBS Performing Organization Address [facility] Co de Phone Number [facility] [address] [phone] * CBC W AUTO DIFFERENTIAL (02/02/2014 3:41 PM ICHTHYOLOGY TEACHER) Blood specimen (specimen) BLOOD SPECIMEN / Unknown 02/02/2014 3:41 PM ICHTHYOLOGY TEACHER Narrative [facility] - 02/02/2014 4:26 PM ICHTHYOLOGY TEACHER The following orders were created for panel order CBC with Differential. Procedure ? Abnormality ? Status ? --------- ? ------ ? CBC WITH DIFFERENTIAL[[id number]] ? Abnormal ?Final result ? MANUAL DIFFERENTIAL[[id number]] ? Abnormal ?Final result ? Please view results for these tests on the individual orders. Jad Marquez MD LAB - HEMATOLOGY LÓPEZ LÓPEZ Performing Organization Address [facility] Co de Phone Number [facility] [address] * (ABNORMAL) DIFFERENTIAL MANUAL (02/02/2014 3:41 PM ICHTHYOLOGY TEACHER) WBC (corrected for NRBC) 13.1 10? 3 /uL [facility] Total Cell Count 100 [facility] Neutrophils Absolute Manual 5.50 1.60 - 7.00 10? 3 /uL [facility] Comment:(BANDS+SEGS) x WBC = NEUT # (ANC) Lymphocyte Absolute Manual 4.06(H) 0.80 - 2.90 10? 3 /uL [facility] Monocytes Absolute Manual 0.52 0.14 - 0.66 10? 3 /uL [facility] Eosinophils Absolute Manual 2.49(H) 0.00 - 0.22 10? 3 /uL [facility] Basophil Absolute Manual 0.26(H) 0.00 - 0.06 10? 3 /uL [facility] Band % Manual 1 0 - 10 % [facility] Neutrophil % Manual 41 30 - 60 % [facility] Lymphocyte % Manual 31 20 - 45 % [facility] Monocytes % Manual 4 2 - 10 % [facility] Eosinophils % Manual 19(H) 1 - 6 % [facility] Basophils % Manual 2 0 - 3 % [facility] Atypical Lymphocyte % Manual 2(H) 0 % [facility] nRBC Manual 1(H) 0 /100 WBC [facility] Platelet Estimate Adequate Adequate [facility] RBC Morphology Normal [facility] Blood specimen (specimen) BLOOD SPECIMEN / Unknown 02/02/2014 3:41 PM ICHTHYOLOGY TEACHER 02/02/2014 4:09 PM ICHTHYOLOGY TEACHER Jad Marquez MD LAB - HEMATOLOGY ORD ERABLES [facility] [address] [place] [address], [facility] [phone] * (ABNORMAL) CBC W AUTO DIFFERENTIAL (02/02/2014 3:41 PM ICHTHYOLOGY TEACHER) WBC 13.1(H) 3.5 - 10.5 10? 3 /uL [facility] RBC 4.83 3.90 - 5.00 10? 6 /uL [facility] Hemoglobin 15.0 12.0 - 15.5 g/dL [facility] Hematocrit 43.4 35.0 - 45.0 % [facility] MCV 89.9 81.0 - 97.0 fL [facility] MCH 31.1 28.0 - 34.0 pg [facility] MCHC 34.6 32.0 - 36.0 g/dL [facility] Platelet Count 317 150 - 400 10? 3 /uL [facility] RDW-SD 44.1 36.0 - 50.0 fL [facility] RDW-CV 13.5 11.2 - 14.8 % [facility] MPV 9.6 9.3 - 12.8 fL [facility] Reflex Status Manual Differential to follow. [facility] Blood specimen (specimen) BLOOD SPECIMEN / Unknown 02/02/2014 3:41 PM ICHTHYOLOGY TEACHER 02/02/2014 3:52 PM ICHTHYOLOGY TEACHER Jad Marquez MD LAB - HEMATOLOGY ORD ERABLES Performing Organization Address City/State/[facility] Co de Phone Number [address] [phone] documented in this encounter Visit Diagnoses Diagnosis Eosinophilia documented in this encounter Care Teams Assistant Therapy Aide Relationship Specialty Start Date End Date Michael Palm MD [address] [place] [address] [address] [place] [address] PCP - General Internal Medicine 01/31/16 06/25/17 documented as of this encounter
--- OUTSIDE RECORDS SUMMARY | 2024-03-22 16:41 | XMS_ITS | Encounter Summary ---
Author Organization [facility] Address [address] [place] [address] Care Team Providers Care Stamping Operator Name Role Phone Michael Palm MD Primary Care Provider [phone] Encounter Details Date Type Department Care Team (Latest Contact Info) Description 05/16/2012 Hospital Outpatient Visit Historic [facility] MRI [address] [place] [address] Discharge Disposition: Home or Self Care Social [...] st Contact Info) Description 04/04/2024 8:30 AM THIOKOL OPERATOR Office Visit [facility] - Dermatology [address] [place] [address], [place] [phone] Marlys Zaragoza MD [address] [place] [address] 3 [place] [address] 09/03/2024 9:00 AM CDT Office Visit [facility] - Neurology [address] [place] [address], [place] [address] Melissa Crook, FLAP PRESSER-PROGRESS CLERK [address] [place] [address] documented as of this encounter Procedures Procedure Name Priority Date/Time Associated Diagnosis Comments MRI CERVICAL SPINE WWO CONT Routine 05/16/2012 1:20 PM THIOKOL OPERATOR documented in this encounter Results * MRI CERVICAL SPINE WWO CONT (05/16/2012 1:20 PM THIOKOL OPERATOR) Anatomical Region Laterality Modality Spine Other Impressions 05/17/2012 12:23 PM THIOKOL OPERATOR IMPRESSION: 1. Slight interval decrease in prominence [...] 12:23 PM . Narrative 05/17/2012 12:23 PM THIOKOL OPERATOR EXAMINATION: Magnetic resonance imaging (MRI) of the [...] hyperintensities throughout the cervical spine. Overall, these [id number] have decreased slightly, especially at the C2-C3 [...] leg documented in this encounter Care Teams Stamping Operator Relationship Specialty Start Date End Date Michael Palm MD [address] [place] [address] [address] [place] [address] PCP - General Internal Medicine 01/31/16 06/25/17 documented as of this encounter
--- OUTSIDE RECORDS SUMMARY | 2024-03-22 16:41 | XMS_ITS | Encounter Summary ---
Author Organization [facility] Health Address [address] [facility] [place] [address] Care Team Providers Care Buffing Machine Operator Name Role Phone Michael Palm MD Primary Care Provider [phone] Encounter Details Date Type Department Care Team (Latest Contact Info) Description 09/12/2013 Hospital Outpatient Visit Historic [facility] MAIN LAB [address] [place] [address] Simon Carcamo MD [address] [place] [address] Discharge Disposition: Home or Self Care Social [...] Contact Info) Description 04/04/2024 8:30 AM MANAGER SAFE Office Visit [facility] - Dermatology [address] [place] [address], [place] [phone] Marlys Zaragoza MD [address] [place] [address] 3 [place] [address] 09/03/2024 9:00 AM CDT Office Visit [facility] - Neurology [address] [facility], [place] [phone] Melissa Crook, EDUCATION DEAN-FLAT BREAKDOWN PROCESSOR [address] [place] [address] documented as of this encounter Procedures Procedure Name Priority Date/Time Associated Diagnosis Comments LAB MISC TEST Routine 09/12/2013 10:10 AM CDT DIFFERENTIAL MANUAL Routine 09/12/2013 1 0:10 AM CDT CBC W AUTO DIFFERENTIAL STAT 09/12/2013 10:10 AM CDT CBC W AUTO DIFFERENTIAL Routine 09/12/2013 10:10 AM CDT HEPATIC FUNCTION PANEL Routine 09/12/2013 10:10 AM CDT documented in this encounter Results * LAB MISC TEST (09/12/2013 10:10 AM CDT) Reference Lab Results SEE SCANNED REPORT [facility] REF LAB NON INTERF Other (qualifier value) 09/12/2013 10:10 AM CDT 09/12/2013 11:04 AM CDT Historical Provider MD LAB SEND OUT [facility] REF LAB NON INTERF * CBC W AUTO DIFFERENTIAL (09/12/2013 10:10 AM CDT) Blood specimen (specimen) BLOOD SPECIMEN / Unknown 09/12/2013 10:10 AM CDT Narrative [facility] - 09/12/2013 1:03 PM CDT The following orders were created for panel order CBC w Differential. Procedure ? Abnormality ? Status ? --------- ? ------ ? CBC WITH DIFFERENTIAL[[id number]] ? Final result ? MANUAL DIFFERENTIAL[[id number]] ? Abnormal ?Final result ? Please view results for these tests on the individual orders. Historical Provider MD LAB - HEMATOLOGY ORDERABLES Performing Organization Address City/State/[facility] Co de Phone Number [facility] [address] * (ABNORMAL) DIFFERENTIAL MANUAL (09/12/2013 10:10 AM CDT) WBC (corrected for NRBC) 10.4 10? 3 /uL [facility] Total Cell Count 100 [facility] Neutrophils Absolute Manual 4.26 1.60 - 7.00 10? 3 /uL [facility] Comment:(BANDS+SEGS) x WBC = NEUT # (ANC) Lymphocyte Absolute Manual 4.06(H) 0.80 - 2.90 10? 3 /uL [facility] Monocytes Absolute Manual 0.52 0.14 - 0.66 10? 3 /uL [facility] Eosinophils Absolute Manual 1.56(H) 0.00 - 0.22 10? 3 /uL [facility] Neutrophil % Manual 41 30 - 60 % [facility] Lymphocyte % Manual 39 20 - 45 % [facility] Monocytes % Manual 5 2 - 10 % [facility] Eosinophils % Manual 15(H) 1 - 6 % [facility] Platelet Estimate Adequate Adequate [facility] RBC Morphology Normal [facility] Blood specimen (specimen) BLOOD SPECIMEN / Unknown 09/12/2013 10:10 AM CDT 09/12/2013 11:38 AM CDT Historical Provider LAB - HEMATOLOGY ORDERABLES [address] [phone] * HEPATIC FUNCTION PANEL (09/12/2013 10:10 AM CDT) Bilirubin Conjugated 0.2 0.0 - 0.5 mg/dL [facility] Bilirubin Unconjugated 0.3 Unconjugated Bilirubin is a calculated value: Reference ranges have not been established. mg/dL [facility] Albumin/Globulin Ratio 1.5 1.1 - 2.3 [facility] Protein Total 7.1 6.0 - 8.3 g/dL [facility] Albumin 4.3 3.4 - 5.0 g/dL [facility] Bilirubin Total 0.5 0.2 - 1.2 mg/dL [facility] Alkaline Phosphatase 57 40 - 150 Units/L [facility] ALT 12 0 - 55 Units/L [facility] AST 14 5 - 34 Units/L [facility] Blood specimen (specimen) BLOOD SPECIMEN / Unknown 09/12/2013 10:10 AM CDT 09/12/2013 11:04 AM CDT Historical Provider LAB - CHEMISTRY O RDERABLES [address] [phone] * CBC W AUTO DIFFERENTIAL (09/12/2013 10:10 AM CDT) WBC 10.4 3.5 - 10.5 10? 3 /uL [facility] RBC 4.74 3.90 - 5.00 10? 6 /uL [facility] Hemoglobin 14.0 12.0 - 15.5 g/dL [facility] Hematocrit 42.4 35.0 - 45.0 % [facility] MCV 89.5 81.0 - 97.0 fL [facility] MCH 29.5 28.0 - 34.0 pg [facility] MCHC 33.0 32.0 - 36.0 g/dL [facility] Platelet Count 275 150 - 400 10? 3 /uL [facility] RDW-SD 41.9 36.0 - 50.0 fL [facility] RDW-CV 13.0 11.2 - 14.8 % [facility] MPV 9.5 9.3 - 12.8 fL [facility] Reflex Status Manual Differential to follow. [facility] Blood specimen (specimen) BLOOD SPECIMEN / Unknown 09/12/2013 10:10 AM CDT 09/12/2013 11:04 AM CDT Historical Provider LAB - HEMATOLOGY ORDERABLES Performing Organization Address City/State/[facility] Co de Phone Number [facility] [address] [phone] documented in this encounter Visit Diagnoses Not on filedocumented in this encounter Care Teams Buffing Machine Operator Relationship Specialty Start Date End Date Michael Palm MD [address] [place] [address] [address] [place] [address] PCP - General Internal Medicine 01/31/16 06/25/17 documented as of this encounter
--- OUTSIDE RECORDS SUMMARY | 2024-03-22 16:41 | XMS_ITS | Encounter Summary ---
Author Organization [facility] Health Address [address] [facility] [place] [address] Care Team Providers Care Irrigation Manager Name Role Phone Michael Palm MD Primary Care Provider [phone] Encounter Details Date Type Department Care Team (Latest Contact Info) Description 09/11/2014 Hospital Outpatient Visit Historic [facility] MAIN LAB [address] [place] [address] Simon Carcamo MD [address] [place] [address] Discharge Disposition: Home or Self Care Social [...] st Contact Info) Description 04/04/2024 8:30 AM CLEANING ASSOCIATE Office Visit [facility]erm[facility]5 [facility], [place] [phone] Marlys Zaragoza MD [address] [place] [address] 3 [place] [phone] 09/03/2024 9:00 AM CDT Office Visit [facility] - Neurology [address] [facility], [place] [address] Melissa Crook, SEWING MACHINE OPERATOR-AGENT PRODUCER [address] [place] [address] documented as of this encounter Procedures Procedure Name Priority Date/Time Associated Diagnosis Comments DIFFERENTIAL MANUAL Routine 09/11/2014 9 :54 AM CDT CBC W AUTO DIFFERENTIAL Routine 09/11/2014 9:54 AM CDT CBC W AUTO DIFFERENTIAL Routine 09/11/2014 9:54 AM CDT HEPATIC FUNCTION PANEL Routine 09/11/2014 9:53 AM CDT LAB MISC TEST Routine 09/11/2014 9:52 AM CDT documented in this encounter Results * (ABNORMAL) DIFFERENTIAL MANUAL (09/11/2014 9:54 AM CDT) WBC (corrected for NRBC) 8.3 10? 3 /uL [facility] Total Cell Count 100 [facility] Neutrophils Absolute Manual 4.40 1.60 - 7.00 10? 3 /uL [facility] Comment:(BANDS+SEGS) x WBC = NEUT # (ANC) Lymphocyte Absolute Manual 2.91(H) 0.80 - 2.90 10? 3 /uL [facility] Monocytes Absolute Manual 0.50 0.14 - 0.66 10? 3 /uL [facility] Eosinophils Absolute Manual 0.50(H) 0.00 - 0.22 10? 3 /uL [facility] Band % Manual 1 0 - 10 % [facility] Neutrophil % Manual 52 30 - 60 % [facility] Lymphocyte % Manual 35 20 - 45 % [facility] Monocytes % Manual 6 2 - 10 % [facility] Eosinophils % Manual 6 1 - 6 % [facility] Platelet Estimate Adequate Adequate [facility] RBC Morphology Normal [facility] Blood specimen (specimen) BLOOD SPECIMEN / Unknown 09/11/2014 9:54 AM CDT 09/11/2014 10:12 AM CDT Historical Provider LAB - HEMATOLOGY ORDERABLES [address] [phone] * (ABNORMAL) CBC W AUTO DIFFERENTIAL (09/11/2014 9:54 AM CDT) WBC 8.3 3.5 - 10.5 10? 3 /uL [facility] RBC 4.81 3.90 - 5.00 10? 6 /uL [facility] Hemoglobin 14.5 12.0 - 15.5 g/dL [facility] Hematocrit 43.5 35.0 - 45.0 % [facility] MCV 90.4 81.0 - 97.0 fL [facility] MCH 30.1 28.0 - 34.0 pg [facility] MCHC 33.3 32.0 - 36.0 g/dL [facility] Platelet Count 298 150 - 400 10? 3 /uL [facility] RDW-SD 44.0 36.0 - 50.0 fL [facility] RDW-CV 13.4 11.2 - 14.8 % [facility] MPV 9.2(L) 9.3 - 12.8 fL [facility] Reflex Status Manual Differential to follow. [facility] Blood specimen (specimen) BLOOD SPECIMEN / Unknown 09/11/2014 9:54 AM CDT 09/11/2014 10:01 AM CDT Historical Provider LAB - HEMATOLOGY ORDERABLES Performing Organization Address City/[facility]/ZIP Co de Phone Number [address] [phone] * CBC W AUTO DIFFERENTIAL (09/11/2014 9:54 AM CDT) Blood specimen (specimen) BLOOD SPECIMEN / Unknown 09/11/2014 9:54 AM CDT Narrative [facility] - 09/11/2014 10:53 AM CDT The following orders were created for panel order CBC w/Differential. Procedure ? Abnormality ? Status ? --------- ? ------ ? CBC WITH DIFFERENTIAL[[id number]] ? Abnormal ?Final result ? MANUAL DIFFERENTIAL[[id number]] ? Abnormal ?Final result ? Please view results for these tests on the individual orders. Historical Provider MD LAB - HEMATOLOGY ORDERABLES Performing Organization Address City/State/[facility] Co de Phone Number [facility] [address] [place] [address], [facility] * HEPATIC FUNCTION PANEL (09/11/2014 9:53 AM CDT) Protein Total 6.8 6.0 - 8.3 g/dL [facility] Albumin 4.1 3.4 - 5.0 g/dL [facility] Bilirubin Total 0.5 0.2 - 1.2 mg/dL [facility] Bilirubin Conjugated 0.2 0.0 - 0.5 mg/dL [facility] Bilirubin Unconjugated 0.3 Unconjugated Bilirubin is a calculated value: Reference ranges have not been established. mg/dL [facility] Alkaline Phosphatase 56 40 - 150 Units/L [facility] ALT 11 0 - 55 Units/L [facility] AST 10 5 - 34 Units/L [facility] Albumin/Globulin Ratio 1.5 1.1 - 2.3 [facility] Blood specimen (specimen) BLOOD SPECIMEN / Unknown 09/11/2014 9:53 AM CDT 09/11/2014 9:59 AM CDT Historical Provider LAB - CHEMISTRY O RDERABLES Performing Organization Address City/[facility]/ZIP Co de Phone Number [facility] [address] [phone] * LAB MISC TEST (09/11/2014 9:52 AM CDT) Reference Lab Results SEE SCANNED REPORT [facility] REF LAB NON INTERF Other (qualifier value) 09/11/2014 9:52 AM CDT 09/11/2014 9:59 AM CDT Historical Provider LAB SEND OUT Performing Organization Address [facility] Co de Phone Number [facility] REF LAB NON INTERF documented in this encounter Visit Diagnoses Diagnosis Multiple sclerosis (HCC) Multiple sclerosis documented in this encounter Care Teams Irrigation Manager Relationship Specialty Start Date End Date Michael Palm MD [address] [place] [address] [address] [place] [address] PCP - General Internal Medicine 01/31/16 06/25/17 documented as of this encounter
--- OUTSIDE RECORDS SUMMARY | 2024-03-22 16:41 | XMS_ITS | Encounter Summary ---
Author Organization [facility] Health Address [address] [facility] [place] [address] Care Team Providers Care Green Building Architect Name Role Phone Michael Palm MD Primary Care Provider [phone] Encounter Details Date Type Department Care Team (Latest Contact Info) Description 06/12/2014 Hospital Outpatient Visit Historic [facility] MAIN LAB [address] [place] [address] Simon Carcamo MD [address] [place] [address] Discharge Disposition: Home or Self Care Social [...] st Contact Info) Description 04/04/2024 8:30 AM KOSHER BUTCHER Office Visit [facility] - Dermatology [address] [place] [address], [place] [phone] Marlys Zaragoza MD [address] [place] [address] 3 [place] [address] 09/03/2024 9:00 AM CDT Office Visit [facility] - Neurology [address] [facility], [place] [phone] Melissa Crook, INSTRUCTOR PHYSICAL EDUCATION-STATISTICAL MACHINE SERVICER [address] [place] [address] documented as of this encounter Procedures Procedure Name Priority Date/Time Associated Diagnosis Comments VITAMIN D 25-HYDROXY Routine 06/12/2014 9:05 AM CDT documented in this encounter Results * VITAMIN D 25-HYDROXY (06/12/2014 9:05 AM CDT) Vitamin D, 25 Hydroxy 53.4 >30.0 ng/mL [facility] Comment: The recommendations for 25-Hydroxy Vitamin D clinical decision points are as follows: ? Deficient: ? <20.0 ng/mL ? Insufficient: ??20.0 - 30.0 ng/mL ? Sufficient: ?>30.0 ng/mL If the 25-Hydroxy Vitamin D results are inconsitent with clinical evidence, it is recommended that follow-up testing using a method such as LC/MS/MS be performed to confirm the result. ? Blood specimen (specimen) BLOOD SPECIMEN / Unknown 06/12/2014 9:05 AM CDT 06/12/2014 9:38 AM CDT Historical Provider LAB - CHEMISTRY O RDERABLES [facility] [address] [place], [place] [address] [place] [address] documented in this encounter Visit Diagnoses Not on filedocumented in this encounter Care Teams Green Building Architect Relationship Specialty Start Date End Date Michael Palm MD [address] [place] [address] [address] [place] [address] PCP - General Internal Medicine 01/31/16 06/25/17 documented as of this encounter
--- OUTSIDE RECORDS SUMMARY | 2024-03-22 16:41 | XMS_ITS | Encounter Summary ---
Author Organization [facility] Health Address [address] [facility] [place] [address] Care Team Providers Care Erp Analyst Name Role Phone Michael Palm MD Primary Care Provider [phone] Encounter Details Date Type Department Care Team (Latest Contact Info) Description 03/09/2014 Hospital Outpatient Visit Historic [facility] MAIN LAB [address] [place] [address] [place] [address] [place] [address] Discharge Disposition: Home or Self Care Social [...] st Contact Info) Description 04/04/2024 8:30 AM RUBBER FACTORY WORKER Office Visit [facility] - Dermatology [address] [place] [address], [place] [phone] Marlys Zaragoza MD [address] [place] [address] 3 [place] [phone] 09/03/2024 9:00 AM CDT Office Visit [facility] - Neurology [address] [facility], [place] [address] Melissa Crook, DELICATESSEN GOODS STOCK CLERK-TRAFFIC MANAGER [address] [place] [address] documented as of this encounter Procedures Procedure Name Priority Date/Time Associated Diagnosis Comments CBC W AUTO DIFFERENTIAL Routine 03/09/2014 10:50 AM RUBBER FACTORY WORKER CBC W AUTO DIFFERENTIAL Routine 03/09/2014 10:50 AM RUBBER FACTORY WORKER HEPATIC FUNCTION PANEL Routine 03/09/2014 10:50 AM RUBBER FACTORY WORKER documented in this encounter Results * (ABNORMAL) HEPATIC FUNCTION PANEL (03/09/2014 10:50 AM RUBBER FACTORY WORKER) Protein Total 6.7 6.0 - 8.3 g/dL [facility] Albumin 3.1(L) 3.4 - 5.0 g/dL [facility] Bilirubin Total 0.3 0.2 - 1.2 mg/dL [facility] Bilirubin Conjugated 0.1 0.0 - 0.5 mg/dL [facility] Bilirubin Unconjugated 0.2 Unconjugated Bilirubin is a calculated value: Reference ranges have not been established. mg/dL [facility] Alkaline Phosphatase 60 40 - 150 Units/L [facility] ALT 20 0 - 55 Units/L [facility] AST 12 5 - 34 Units/L [facility] Albumin/Globulin Ratio 0.9(L) 1.1 - 2.3 [facility] Blood specimen (specimen) BLOOD SPECIMEN / Unknown 03/09/2014 10:50 AM RUBBER FACTORY WORKER 03/09/2014 11:52 AM RUBBER FACTORY WORKER Historical Provider LAB - CHEMISTRY O RDERABLES [facility] [address] [phone] * (ABNORMAL) CBC W AUTO DIFFERENTIAL (03/09/2014 10:50 AM RUBBER FACTORY WORKER) WBC 10.9(H) 3.5 - 10.5 10? 3 /uL [facility] RBC 4.02 3.90 - 5.00 10? 6 /uL [facility] Hemoglobin 12.3 12.0 - 15.5 g/dL [facility] Hematocrit 36.0 35.0 - 45.0 % [facility] MCV 89.6 81.0 - 97.0 fL [facility] MCH 30.6 28.0 - 34.0 pg [facility] MCHC 34.2 32.0 - 36.0 g/dL [facility] Platelet Count 364 150 - 400 10? 3 /uL [facility] RDW-SD 43.0 36.0 - 50.0 fL [facility] RDW-CV 13.1 11.2 - 14.8 % [facility] MPV 8.4(L) 9.3 - 12.8 fL [facility] Neutrophils % 74.7(H) 35.0 - 70.0 % [facility] Lymphocytes % 13.5(L) 19.7 - 55.1 % [facility] Monocytes % 6.4 3.0 - 15.0 % [facility] Eosinophils % 4.3 0.0 - 6.0 % [facility] Basophil % 0.5 0.0 - 1.5 % [facility] Neutrophils Absolute 8.2(H) 1.6 - 7.0 10? 3 /uL [facility] Lymphocyte Absolute 1.5 0.8 - 2.9 10? 3 /uL [facility] Monocytes Absolute 0.70(H) 0.14 - 0.66 10? 3 /uL [facility] Eosinophils Absolute 0.47(H) 0.00 - 0.22 10? 3 /uL [facility] Basophils Absolute 0.06 0.00 - 0.06 10? 3 /uL [facility] Immature Granulocytes % 0.6 0.0 - 1.0 % [facility] Blood specimen (specimen) BLOOD SPECIMEN / Unknown 03/09/2014 10:50 AM RUBBER FACTORY WORKER 03/09/2014 11:46 AM RUBBER FACTORY WORKER Historical Provider MD LAB - HEMATOLOGY ORDERABLES Performing Organization Address [facility] de Phone Number [facility] [address] [place] [address], [facility] [phone] * CBC W AUTO DIFFERENTIAL (03/09/2014 10:50 AM RUBBER FACTORY WORKER) Blood specimen (specimen) BLOOD SPECIMEN / Unknown 03/09/2014 10:50 AM RUBBER FACTORY WORKER Narrative [facility] - 03/09/2014 11:49 AM RUBBER FACTORY WORKER The following orders were created for panel order CBC w/Differential. Procedure ? Abnormality ? Status ? --------- ? ------ ? CBC WITH DIFFERENTIAL[[id number]] ? Abnormal ?Final result ? Please view results for these tests on the individual orders. Historical Provider MD LAB - HEMATOLOGY ORDERABLES Performing Organization Address [facility] de Phone Number [facility] [address] documented in this encounter Visit Diagnoses Diagnosis Multiple sclerosis (HCC) Multiple sclerosis documented in this encounter Care Teams Erp Analyst Relationship Specialty Start Date End Date Michael Palm MD [address] [place] [address] [address] [place] [address] PCP - General Internal Medicine 01/31/16 06/25/17 documented as of this encounter
--- OUTSIDE RECORDS SUMMARY | 2024-03-22 16:41 | XMS_ITS | Encounter Summary ---
Author Organization [facility] Health Address [address] [place] [address] Care Team Providers Care Sales And Merchandising Representative Name Role Phone Michael Palm MD Primary Care Provider [phone] Encounter Details Date Type Department Care Team (Latest Contact Info) Description 07/10/2014 Hospital Outpatient Visit Historic [facility] MAIN LAB [address] [place] [address] Simon Carcamo MD [address] [place] [address] Discharge Disposition: Home or Self Care Social [...] st Contact Info) Description 04/04/2024 8:30 AM SHAFT HEADMAN Office Visit [facility] - Dermatology [address] [place] [address], [place] [phone] Marlys Zaragoza MD [address] [place] [address] 3 [place] [address] 09/03/2024 9:00 AM CDT Office Visit [facility] Group - Neurology [address] [facility], [place] [address] Melissa Crook, API PRODUCT MANAGER-ENGRAVER FLATWARE [address] [place] [address] documented as of this encounter Procedures Procedure Name Priority Date/Time Associated Diagnosis Comments CBC W AUTO DIFFERENTIAL Routine 07/10/2014 10:59 AM CDT HEPATIC FUNCTION PANEL Routine 07/10/2014 10:59 AM CDT CBC W AUTO DIFFERENTIAL Routine 07/10/2014 10:59 AM CDT documented in this encounter Results * (ABNORMAL) CBC W AUTO DIFFERENTIAL (07/10/2014 10:59 AM CDT) WBC 9.4 3.5 - 10.5 10? 3 /uL [facility] RBC 4.79 3.90 - 5.00 10? 6 /uL [facility] Hemoglobin 14.1 12.0 - 15.5 g/dL [facility] Hematocrit 42.6 35.0 - 45.0 % [facility] MCV 88.9 81.0 - 97.0 fL [facility] MCH 29.4 28.0 - 34.0 pg [facility] MCHC 33.1 32.0 - 36.0 g/dL [facility] Platelet Count 267 150 - 400 10? 3 /uL [facility] RDW-SD 47.4 36.0 - 50.0 fL [facility] RDW-CV 14.5 11.2 - 14.8 % [facility] MPV 9.7 9.3 - 12.8 fL [facility] Neutrophils % 55.1 35.0 - 70.0 % [facility] Lymphocytes % 28.4 19.7 - 55.1 % [facility] Monocytes % 8.0 3.0 - 15.0 % [facility] Eosinophils % 8.0(H) 0.0 - 6.0 % [facility] Basophil % 0.5 0.0 - 1.5 % [facility] Neutrophils Absolute 5.2 1.6 - 7.0 10? 3 /uL [facility] Lymphocyte Absolute 2.7 0.8 - 2.9 10? 3 /uL [facility] Monocytes Absolute 0.75(H) 0.14 - 0.66 10? 3 /uL [facility] Eosinophils Absolute 0.75(H) 0.00 - 0.22 10? 3 /uL [facility] Basophils Absolute 0.05 0.00 - 0.06 10? 3 /uL [facility] Immature Granulocytes % 0.5 0.0 - 1.0 % [facility] Blood specimen (specimen) BLOOD SPECIMEN / Unknown 07/10/2014 10:59 AM CDT 07/10/2014 12:10 PM CDT Historical Provider LAB - HEMATOLOGY ORDERABLES Performing Organization Address City/[facility]/ZIP Co de Phone Number [address] [phone] * HEPATIC FUNCTION PANEL (07/10/2014 10:59 AM CDT) Protein Total 6.6 6.0 - 8.3 g/dL [facility] Albumin 3.7 3.4 - 5.0 g/dL [facility] Bilirubin Total 0.4 0.2 - 1.2 mg/dL [facility] Bilirubin Conjugated 0.1 0.0 - 0.5 mg/dL [facility] Bilirubin Unconjugated 0.3 Unconjugated Bilirubin is a calculated value: Reference ranges have not been established. mg/dL [facility] Alkaline Phosphatase 58 40 - 150 Units/L [facility] ALT 13 0 - 55 Units/L [facility] AST 10 5 - 34 Units/L [facility] Albumin/Globulin Ratio 1.3 1.1 - 2.3 [facility] Blood specimen (specimen) BLOOD SPECIMEN / Unknown 07/10/2014 10:59 AM CDT 07/10/2014 12:11 PM CDT Historical Provider LAB - CHEMISTRY O RDERABLES [facility] [address] [phone] * CBC W AUTO DIFFERENTIAL (07/10/2014 10:59 AM CDT) Blood specimen (specimen) BLOOD SPECIMEN / Unknown 07/10/2014 10:59 AM CDT Narrative [facility] - 07/10/2014 12:26 PM CDT The following orders were created for panel order CBC w/Differential. Procedure ? Abnormality ? Status ? --------- ? ------ ? CBC WITH DIFFERENTIAL[[id number]] ? Abnormal ?Final result ? Please view results for these tests on the individual orders. Historical Provider LAB - HEMATOLOGY ORDERABLES Performing Organization Address [facility] de Phone Number [facility] [address] documented in this encounter Visit Diagnoses Diagnosis Multiple sclerosis (HCC) Multiple sclerosis documented in this encounter Care Teams Sales And Merchandising Representative Relationship Specialty Start Date End Date Michael Palm MD [address] [place] [address] [address] [place] [address] PCP - General Internal Medicine 01/31/16 06/25/17 documented as of this encounter
--- OUTSIDE RECORDS SUMMARY | 2024-03-22 16:41 | XMS_ITS | Encounter Summary ---
Author Organization [facility] Health Address [address] [facility] [place] [address] Care Team Providers Care Flat Bed Knitter Name Role Phone Michael Palm MD Primary Care Provider [phone] Encounter Details Date Type Department Care Team (Latest Contact Info) Description 10/09/2014 Hospital Outpatient Visit Historic [facility] MAIN LAB [address] [place] [address] Simon Carcamo MD [address] [place] [address] Discharge Disposition: Home or Self Care Social [...] Contact Info) Description 04/04/2024 8:30 AM TEST PREPARATION TUTOR Office Visit [facility] Dermatology [address] [place] [address], [place] [address] Marlys Zaragoza MD [address] [place] [address] 3 [place] [address] 09/03/2024 9:00 AM CDT Office Visit [facility] [address] [facility], [facility] [place] [address] Melissa Crook APRN-LEAD FRONT END DEVELOPER [address] [place] [phone] documented as of this encounter Visit Diagnoses Not on filedocumented in this encounter Care Teams Flat Bed Knitter Relationship Specialty Start Date End Date Michael Palm MD [address] [place] [address] [address] [place] [address] PCP - General Internal Medicine 01/31/16 06/25/17 documented as of this encounter
--- OUTSIDE RECORDS SUMMARY | 2024-03-22 16:41 | XMS_ITS | Encounter Summary ---
Author Organization [facility] Health Address [address] [facility] [place] [address] Care Team Providers Care Auto Brake Technician Name Role Phone Michael Palm MD Primary Care Provider [phone] Encounter Details Date Type Department Care Team (Late Contact Info) Description 05/31/2012 Hospital Outpatient Visit Historic [facility] Orthopedics [address] [place] [phone] Román Villa MD [address] [place] [phone] Social History Tobacco Use Types Packs/Day Years [...] (Late Contact Info) Description 04/04/2024 8:30 AM COMMUTATOR TESTER Office Visit [facility] Dermatology [address] [place] [address] [place] [phone] Marlys Zaragoza MD [address] [place] [address] 3 [place] [phone] 09/03/2024 9:00 AM CDT Office Visit [facility] [address] [facility] [place] [phone] Melissa Crook APRN-NATIONAL GUARD MEMBER [address] [place] [phone] documented as of this encounter Visit Diagnoses Not on filedocumented in this encounter Care Teams Auto Brake Technician Relationship Specialty Start Date End Date Michael Palm MD [address] [place] [address] [address] [place] [address] PCP - General Internal Medicine 01/31/16 06/25/17 documented as of this encounter
--- OUTSIDE RECORDS SUMMARY | 2024-03-22 16:48 | XMS_ITS | Clinical Summary ---
Author Organization [facility] Address [facility]ly [facility] [facility] [place] [address] [place] [address] Care Team Providers Care Hot Wound Spring Production Supervisor Name Role Phone Lauren Saba [facility] Primary Care Provider + Allergies No known active allergies Medications zonisamide 100 MG capsule Take 500 mg by mouth nightly. 0 Active tretinoin 0.01 % gel Apply topically nightly at bedtime. Pea sized amount to entire face at night. 9 Active onabotulinumtoxinA 100 units injection Inject 200 Units into the muscle every 3 (three) months. 9 Active ibuprofen 800 MG tablet Take 800 mg by mouth 2 (two) times daily as needed for Pain. 0 Active fluticasone propionate 50 MCG/ACT nasal spray 1 spray by Each Nostril route 2 (two) times daily as needed for Allergies. 0 Active escitalopram 20 MG tablet Take 20 mg by mouth daily. 0 Active erythromycin 2 % external solution Apply topically 2 (two) times daily. 9 Active SYMBICORT 160-4.5 MCG/ACT inhaler Inhale 2 puffs into the lungs 2 (two) times daily. 0 Active baclofen 10 MG tablet Take 10 mg by mouth 2 (two) times daily. 0 Active ABILIFY MAINTENA 300 MG Prefilled Syringe IM SYRINGE Inject 300 mg into the muscle every 28 days. 0 Active albuterol sulfate HFA 108 (90 Base) MCG/ACT inhaler Inhale 2 puffs into the lungs every 4 (four) hours as needed for Shortness of breath. 0 Active ocrelizumab 300 MG/10ML injection Inject 600 mg into the vein every 6 (six) months. Active lacosamide 100 MG TabIndications:Sei zure ([facility]),Paranoid schizophrenia ([facility]),Major neurocognitive disorder ([facility]) Take 2 tablets (200 mg total) by mouth 2 (two) times daily. 60 tablet 3 1 Active Active Problems Problem Noted Date Diagnosed Date Epilepsy ([facility]) 06/24/2019 Open wound of toe 06/24/2019 Seizure ([facility]) 04/15/2019 Major neurocognitive disorder ([facility]) 03/18/2019 Alcohol use disorder, mild, abuse 01/27/2019 Cannabis use disorder, severe, dependence ([facility]) 01/27/2019 Depression 08/06/2018 Acne vulgaris 12/04/2017 Overview (02/03/2021): Last Assessment & Plan: - Much improved, face mostly clear today - Continue Tretinoin 0.05% cream - Advised to apply at [facility] if able - Continue BP wash to face QD - Okay to hold off on Erythro soln at this time, pt not using Asthma ([facility]) 12/04/2017 Paranoid schizophrenia ([facility]) 018 MS (multiple sclerosis) ([facility]) 2016 Anosognosia 06/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 Immunizations Name Administration Dates Next Due Afluria 36 MONTHS+ (Prefille d Syringe IIV4) 04/16/2019(Deferred: Patient/family declined - patient stating she already received flu vaccine this season),04/15/2019() Family History Medical History Relation Comments Breast Cancer Maternal Aunt ? age Relation Status Comments Maternal Aunt Social History Tobacco Use Types Packs/Day Years Used Date Smoking Tobacco: Never Smokeless Tobacco: Never Alcohol Use Standard Drinks/Week Comments Yes 0 (1 standard drink = 0.6 oz pur e alcohol) social AUDIT-C Answer Date Recorded Frequency of Alcohol Consumption Never 04/15/2019 Average Number of Drinks Not on file 020 Frequency of Binge Drinking Not on file 03/20 Comments No Sex and Gender Information Value Date Recorded Sex Assigned at Not on file Legal Sex Female 6:14 PM CDT Gender Identity Not on file Sexual Orientation Not on file Last Filed Vital Signs Vital Sign Reading Time Taken Comments Blood Pressure 116/82 02/07/2021 8:00 AM MANAGER [employer]AFET[employer] Pulse 99 02/07/2021 8:00 AM MANAGER [employer]AF[employer] Temperature 36.8 ??C (98.2 ??F) 02/07/2021 8:00 AM CS T Respiratory Rate 16 02/07/2021 8:00 AM MANAGER [employer] SAFET[employer] Oxygen Saturation 98% 02/07/2021 8:21 AM MANAGER FOOD SAFETY Inhaled Oxygen Concentration - - Weight 64.4 kg (141 lb 14.4 oz) 02/07/2021 5:09 AM MANAGER [employer]AF[employer] Height 165.1 cm (5' 5 ) 02/02/2021 8:42 PM MANAGER FOOD SAFETY Body Mass Index 23.61 02/02/2021 8:42 PM MANAGER [employer]AF[employer] Plan of Treatment Health Maintenance Due Date Last Done Comments Annual Physical 11/29/1983 Hepatitis C 1998 DTaP, Tdap and Td Vaccines (1 - Tdap) 11/29/1999 Hepatitis B Vaccines (1 of 3 - 19+ 3-dose series) 11/29/1999 Pneumococcal Vaccine: Pediatrics (0 to 5 Years) and At-Risk Patients (6 to 64 Years) (2 of 2 - PCV) 08/18/2017 08/18/2016 Mammogram Screening 2020 08/27/2018, 8 COVID-19 Vaccine ( season) 2023 Influenza Adult (#1) 2023 12/02/2020, 01/05/2020, 11/14/2019, Additional history exists Cervical Cancer Screening Pap Smear (Age 30 to 64) Every 3 Years 12/24/2023 12/23/2020, 11/29/2020 Cervical Cancer Screening Pap with HPV Testing (Age 30 to 64) Every 5 Years 12/23/2025 12/23/2020, 11/29/2020 Cervical Cancer Screening with HPV 12/23/2025 HPV Vaccines Aged Out No longer eligi ble based on patient's age to complete this topic Meningococcal Vaccine Aged Out No bebeto marla eligible based on patient's age to complete this topic RSV Immunizations Under 20 Months Aged Out No longer eligible based on patient's age to complete this topic Goals Goal Patient Goal Type Associated Problems Recent Progress Patient-Stated? Author Family - family caregiver with be involved in care transitions and discharge planning General No Dejon Bravo, a r collections rep Procedure Name Priority Date/Time Associated Diagnosis Comments MG SCREENING W CORA ALEX DIGI Routine 08/27/2018 10:36 AM CDT Screening breast examination from Last 3 Months or Most Recently Relevant to Health Maintenance Results * MG SCREENING W CORA ALEX DIGI (08/27/2018 10:36 AM CDT) Anatomical Region Laterality Modality Breast Bilateral Mammography 08/27/2018 11:1 0 AM CDT Impressions 08/27/2018 11:14 AM CDT =====IMPRESSION:===== No mammographic findings suggestive of malignancy. ASSESSMENT: ACR BI-RADS Category 2 - Benign. RECOMMENDATION: 1: Routine screening mammogram ??bilateral ??in 1 year ? COMMENTS: ? Narrative 08/27/2018 11:14 AM CDT EXAMINATION: Digital bilateral screening mammogram with 3-D tomosynthesis EXAM DATE/TIME: 08/27/2018 10:14 AM REASON FOR EXAM: ??Screening breast examination ? No current complaints COMPARISON: 07/31/2017, 05/11/2016 TECHNIQUE: Digital screening mammography of both breasts was performed in addition to 3-D Tomosynthesis technique. This study was read with the assistance of a computer-aided detection system. TISSUE DENSITY: The breast tissue is heterogeneously dense. FINDINGS: No suspicious masses, malignant appearing calcifications, skin thickening or other abnormalities are present. ??No significant change from the prior exam. Lauren [facility] MAMMO Final Re sult from Last 3 Months or Most Recently Relevant to Health Maintenance Insurance [employer] Advance Directives Documents on File Type Date Recorded Patient Footwear Sales Representative Expl anation Guardianship - Permanent 04/17/2019 10:32 AM 10/17/16 LETTERS OF OFFICE-GUARDIAN ESTATE/ PERSON DISABLED * Full Code (Latest Code Status on File) Date Activated Date Inactivated Comments 04/15/2019 5:41 PM 04/16/2019 3:45 PM Care Teams Hot Wound Spring Production Supervisor Relationship Specialty Start Date End Date Lauren Saba, [facility] [address] [place] [phone] PCP - General NURSE PRACTITIONER 08/27/18
--- OUTSIDE RECORDS SUMMARY | 2024-03-22 16:48 | XMS_ITS | Encounter Summary ---
Author Organization [facility] Address [facility] [place] [address] [place] [address] Care Team Providers Care Machine Feed Operator Name Role Phone Maruo Emery MD Primary Care Provider Unavailable Mauro Emery MD Primary Care Provider Unavailable Encounter Details Date Type Department Care Team (Late st Contact Info) Description 04/27/2016 [facility] [address] [place] [address] Mauro Emery MD Social History Tobacco Use Types Packs/Day Years Used Date Smoking Tobacco: Never Assessed Comments Unknown Sex and Gender Information Value Date Recorded Sex Assigned at Not on file Legal Sex Female 6:14 PM CDT Gender Identity Not on file Sexual Orientation Not on file documented as of this encounter Plan of Treatment Not on file documented as of this encounter Visit Diagnoses Diagnosis Encounter for screening mammogram for malignant neoplasm of breast Other screening mammogram documented in this encounter Care Teams Machine Feed Operator Relationship Specialty Start Date End Date Mauro Emery MD PCP - General 05/11/16 Mauro Emery MD PCP - General 04/27/16 documented as of this encounter
--- OUTSIDE RECORDS SUMMARY | 2024-03-22 16:48 | XMS_ITS | Encounter Summary ---
Author Organization [facility] Address [facility] [place] [address] [place] [address] Care Team Providers Care Telesales Agent Name Role Phone Md Generic Conversion Primary Care Provider Unavailable Mauro Emery MD Primary Care Provider Unavailable Mauro Emery MD Primary Care Provider Unavailable Encounter Details Date Type Department Care Team (Late st Contact Info) Description 06/16/2010 Abstract [facility] [place], [place] [id number] Kay Hwang MD [facility] [address] [place], [place] [id number] Social History Tobacco Use Types Packs/Day Years Used Date Smoking Tobacco: Never Assessed Comments Unknown Sex and Gender Information Value Date Recorded Sex Assigned at Not on file Legal Sex Female 6:14 PM CDT Gender Identity Not on file Sexual Orientation Not on file documented as of this encounter Plan of Treatment Not on file documented as of this encounter Visit Diagnoses Diagnosis Abdominal pain, right lower quadrant documented in this encounter Care Teams Telesales Agent Relationship Specialty Start Date End Date Mauro Emery MD PCP - General 05/11/16 Mauro Emery MD PCP - General 04/27/16 Mauro Emery MD PCP - General 03/21/15 7 documented as of this encounter
--- OUTSIDE RECORDS SUMMARY | 2024-03-22 16:48 | XMS_ITS | Encounter Summary ---
Author Organization [facility] Address [address] [place] [address]. [place] [address] [place] [address] Care Team Providers Care Asphalt Worker Name Role Phone Lauren Saba [facility] Primary Care Provider + Reason for Visit * Imaging (Routine) - Closed Specialty Diagnoses / Procedures Referred By Nicole shipley Referred To Contact RADIOLOGY Diagnoses Screening breast examination Procedures MG SCREENING W CORA ALEX Lauren Roy, [address] [phone] Phone: tel: fax: Referral ID Status Reason Start Date Expiration Date Visits Re quested Visits Authorized [id number] Closed 08/20/2018 09/20/2019 1 1 Encounter Details Date Type Department Care Team (Latest Contact Info) Description 08/27/2018 9:45 AM CDT - 08/27/2018 11:59 PM CDT Hospital Encounter [facility] Mammography [address] [place] [address] Lauren Saba, [address] [address] Discharge Disposition: Home or Self Care (Routine Discharge) Social History Tobacco Use Types Packs/Day Years Used Date Smoking Tobacco: Never Assessed Comments No Sex and Gender Information Value Date Recorded Sex Assigned at Not on file Legal Sex Female 6:14 PM CDT Gender Identity Not on file Sexual Orientation Not on file documented as of this encounter Medications at Time of Discharge onabotulinumtoxin A 100 units injection Inject 200 Units into the muscle every 3 (three) months. 07/22/2018 butalbital-acetam inophen-caffeine 50-325-40 MG tablet Take 1 tablet by mouth every 4 (four) hours as needed. 01/14/2018 02/02/2021 lorazepam 1 MG tablet 06/05/2018 04/15/2019 documented as of this encounter Plan of Treatment Not on file documented as of this encounter Procedures Procedure Name Priority Date/Time Associated Diagnosis Comments MG SCREENING W CORA ALEX DIGI Routine 08/27/2018 10:36 AM CDT Screening breast examination documented in this encounter Results * MG SCREENING W CORA ALEX [...] significant change from the prior exam. Lauren Saba [employer] MAMMO Final Re sult documented in this encounter Visit Diagnoses Not on filedocumented in this encounter Care Teams Asphalt Worker Relationship Specialty Start Date End Date Lauren Saba, [employer] [place] [phone] PCP - General NURSE PRACTITIONER 08/27/18 documented as of this encounter
--- OUTSIDE RECORDS SUMMARY | 2024-03-22 16:48 | XMS_ITS | Encounter Summary ---
Author Organization [facility] Address Formerly [facility]. [place], [place] [id number] [place] [id number] Care Team Providers Care Baggage Security Checker Name Role Phone Lauren Page [facility] Primary Care Provider + Reason for Referral * Imaging (Urgent) - Closed Specialty Diagnoses / Procedures Referred By Contac t Referred To Contact RADIOLOGY Procedures MRI BRAIN WWO CON Julius Woods MD,PHD [address] [place] [address] Phone: tel: fax: Referral ID Status Reason Start Date Expiration Date Visits Re quested Visits Authorized [id number] Closed 02/02/2021 03/04/2022 1 1 H WELDING MACHINE OPERATOR * Imaging (Emergency) - Closed Specialty Diagnoses / Procedures Referred By Contac t Referred To Contact RADIOLOGY Procedures CT HEAD WO CON Ge Gonzales MD [address] [place] [id number] Phone: tel: fax: Referral ID Status Reason Start Date Expiration Date Visits Re quested Visits Authorized [id number] Closed 02/02/2021 03/04/2022 1 1 H WELDING MACHINE OPERATOR Reason for Visit * Reason Comments Seizure Re-evaluation * Auth/Cert Specialty Diagnoses / Procedures Referred By Contac t Referred To Contact Diagnoses Seizures (CMS/HCC HHS/HCC) Seizure (CMS/HCC HHS/HCC) Seizure (CMS/HCC) Procedures NA Referral ID Status Reason Start Date Expiration Date Visits Re quested Visits Authorized [id number] 1 1 Encounter Details Date Type Department Care Team (Latest Contact Info) Description 02/02/2021 12:25 PM FLASH WELDING MACHINE OPERATOR - 02/07/2021 2:20 PM FLASH WELDING MACHINE OPERATOR Hospital Encounter [facility] Med/Surg [address] [place] [address] Ge Gonzales MD [address] [place] [address] Julius Woods MD,PHD [address] [place] [address] Yue Braswell MD [address] [place], [place] [id number] Valentino Stahl PASubhaC [address] [place] [address] [phone] (Work) Seizure Re-evaluation Discharge Disposition: Home with Home Health Care Social History Tobacco Use Types Packs/Day [...] on file Sexual Orientation Not on file COVID-19 Exposure Response Date Recorded In the last month, have you been in contact with someone who was confirmed or suspected to have Coronavirus / COVID-19? No / Unsure 02/02/2021 1:28 PM FLASH WELDING MACHINE OPERATOR documented as of this encounter Last Filed Vital Signs Vital Sign Reading Time Taken Comments Blood Pressure 116/82 02/07/2021 8:00 AM FLASH WELDING MACHINE OPERATOR Pulse 99 02/07/2021 8:00 AM FLASH WELDING MACHINE OPERATOR Temperature 36.8 ??C (98.2 ??F) 02/07/2021 8:00 AM CS T Respiratory Rate 16 02/07/2021 8:00 AM FLASH WELDING MACHINE OPERATOR Oxygen Saturation 98% 02/07/2021 8:21 AM FLASH WELDING MACHINE OPERATOR Inhaled Oxygen Concentration - - Weight 64.4 kg (141 lb 14.4 oz) 02/07/2021 5:09 AM FLASH WELDING MACHINE OPERATOR Height 165.1 cm (5' 5 ) 02/02/2021 8:42 PM FLASH WELDING MACHINE OPERATOR Body Mass Index 23.61 02/02/2021 8:42 PM FLASH WELDING MACHINE OPERATOR documented in this encounter Functional Status * Question Answer Date of Assessment Author Status Do you have serious difficulty walking or climbing stairs? Yes 02/02/2021 9:14 PM David Escalante RN Active * Question Answer Date of Assessment Author Status Do you have difficulty dressing or bathing? No 02/02/2021 9:14 PM Dorina Escalante RN Active Because of a physical, mental, or emotional condition, do you have difficulty doing errands alone such as visiting a doctor's office or shopping? Yes 02/02/2021 9:14 PM David Escalante RN Active * RETIRED Are you deaf or do you have serious difficulty hearing Answer Date of Assessment Author Status No 02/02/2021 9:14 PM FLASH WELDING MACHINE OPERATOR Activ e * RETIRED Are you blind or do you have serious difficulty seeing, even when wearing glasses? Answer Date of Assessment Author Status No 02/02/2021 9:14 PM FLASH WELDING MACHINE OPERATOR Activ e * Do you have serious difficulty walking or climbing stairs? Answer Date of Assessment Author Status Yes 02/02/2021 9:14 PM Lissett Escalante RN Active * Do you have difficulty dressing or bathing? Answer Date of Assessment Author Status No 02/02/2021 9:14 PM Lissett Escalante RN Active * Because of a physical, mental, or emotional condition, do you have difficulty doing errands alone such as visiting a doctor's office or shopping? Answer Date of Assessment Author Status Yes 02/02/2021 9:14 PM Lissett Escalante RN Active documented as of this encounter Mental Status * Question Answer Entry Date Author Status Because of a physical, mental, or emotional condition, do you have serious difficulty concentrating, remembering, or making decisions? Yes 02/02/2021 9:14 PM Lissett Escalante RN Active * Because of a physical, mental, or emotional condition, do you have serious difficulty concentrating, remembering, or making decisions? Answer Entry Date Author Status Yes 02/02/2021 9:14 PM Lissett Escalante RN Active documented in this encounter Discharge Summaries * Valentino Stahl PA-C - 02/07/2021 1:00 PM CST Hospitalist Discharge Summary Patient ID: Meredith Frost. female. 1980. Admit date: 02/02/2021 12:25 PM Discharge date and time: 02/07/21 Admitting Physician: Yue Braswell MD Attending Physician: Valentino Stahl PA-C Primary Care Physician: LAUREN PAGE [facility] Discharge Physician: VALENTINO STAHL PA-C Admission Condition: stable Discharged Condition: Stable Code Status: Prior Indication for Admission: Chief Complaint Patient presents with ??? Seizure Re-evaluation Readmission/Mortality Score at discharge: Low 0-28, Medium 29-58, High >59 LACE+ Score Readmission Score: 69 Male Patient: Urgent Admission: 15 Discharge Institution: Length of Stay: 6 Alternative Level of Care Status: 0 ED Visits in Previous 6 Months: 0 Elective Admission in Previous Year: 0 Comorbidity Score (by age & number of urgent admissions): 48 Discharge diagnosis: Principal Problem: Seizure (CMS/HCC) Resolved Problems: * No resolved hospital problems. * Patient Active Problem List Diagnosis ??? Seizure (CMS/HCC) ??? Acne vulgaris ??? Alcohol use disorder, mild, abuse ??? Anosognosia ??? Anxiety ??? Asthma ??? Cannabis use disorder, severe, dependence (CMS/HCC) ??? Depression ??? Epilepsy (CMS/HCC) ??? Major neurocognitive disorder (CMS/HCC) ??? Migraine ??? MS (multiple sclerosis) (CMS/HCC) ??? Open wound of toe ??? Paranoid schizophrenia (CMS/HCC) HOSPITAL COURSE: Suspected recurrent seizure: Acute encephalopathy Witnessed seizure activity via EMS and ER-required Ativan CT head WNL Increased Vimpat to 200??mg twice daily at discharge MRI negative for acute ischemic changes EEG??02/04 negative for seizures, did reveal diffuse cerebral dysfunction/structural abnormalities.??Possible history of focal seizures UDS benzodiazepine, cannabinoid positive Neurology consulted. ??Appreciate recs Per neurology recs, Ativan bridge X 3 days-completed Supportive care Due to clinical improvement along with nausea recommendations, will discharge patient in stable condition back to home with home health and 24 hour supervision with caregiver. She will be set up witha follow-up appointment with her established neurologist. Legal guardian notified, agreed with plan. ?? Asthma Stable Continue home inhalers Monitor ?? History multiple sclerosis Schizophrenia Neurocognitive disorder Migraine Cannabis use The patient was educated on Seizure (CMS/HCC) and other additional medical condition(s). All questions were answered and the patient voices understanding. Meredith Frost is stable and ready for discharge Consults: neurology Significant Diagnostic Studies: No results found for this or any previous visit (from the past 24 hour(s)). Discharge Exam: Filed Vitals: 02/06/21 1900 02/07/21 0509 02/07/21 0800 02/07/21 0821 BP: 121/79 109/76 116/82 Pulse: 76 95 99 Resp: 18 17 16 Temp: 98.4 ??F (36.9 ??C) 98.2 ??F (36.8 ??C) 98.2 ??F (36.8 ??C) TempSrc: Oral Oral Oral SpO2: 100% 99% 98% Weight: 64.4 kg (141 lb 14.4 oz) Height: Physical Exam Constitutional: General: She is not in acute distress. Appearance: She is not diaphoretic. HENT: Head: Normocephalic and atraumatic. Eyes: Conjunctiva/sclera: Conjunctivae normal. Pupils: Pupils are equal, round, and reactive to light. Neck: Vascular: No JVD. Cardiovascular: Rate and Rhythm: Normal rate and regular rhythm. Heart sounds: No murmur heard. Pulmonary: Effort: Pulmonary effort is normal. No respiratory distress. Breath sounds: No wheezing. Abdominal: General: There is no distension. Tenderness: There is no abdominal tenderness. There is no rebound. Skin: General: Skin is warm and dry. Findings: No erythema. Neurological: Mental Status: She is alert and oriented to person, place, and time. She is not lethargic. Cranial Nerves: No cranial nerve deficit. Psychiatric: Mood and Affect: Affect normal. Discharge Medications: Medication List CHANGE how you take these medications lacosamide 100 MG Tabs Commonly known as: VIMPAT Take 2 tablets (200 mg total) by mouth 2 (two) times daily. What changed: how much to take CONTINUE taking these medications Abilify Maintena 300 MG Prsy IM SYRINGE Generic drug: ARIPiprazole ER albuterol sulfate HFA 108 (90 Base) MCG/ACT inhaler baclofen 10 MG tablet Commonly known as: LIORESAL erythromycin 2 % external solution escitalopram 20 MG tablet Commonly known as: LEXAPRO fluticasone propionate 50 MCG/ACT nasal spray Commonly known as: FLONASE ibuprofen 800 MG tablet Commonly known as: MOTRIN ocrelizumab 300 MG/10ML injection Commonly known as: OCREVUS onabotulinumtoxinA 100 units injection Commonly known as: BOTOX Symbicort 160-4.5 MCG/ACT inhaler Generic drug: budesonide-formoterol tretinoin 0.01 % gel Commonly known as: RETIN-A zonisamide 100 MG capsule Commonly known as: ZONEGRAN Where to Get Your Medications These medications were sent to [id number] - [facility] [address] [facility] [address] [facility] [address] [facility] [address] [facility] [id number] ?? lacosamide 100 MG Tabs Disposition: Home with Home Health Time Spent on Discharge: Less than 30 minutes This note was dictated with [employer] medical dictation software; misspellings, punctuation errors, omitted words or dictation variances may occur. VALENTINO STAHL PA-C 02/07/2021 1:01 PM Primary care physician: VIPUL DINH Extended Emergency Contact Information Primary Emergency Contact: Serg Frost [place] Relation: Mother Cosigned by Helen Grant DO at 02/07/2021 6:11 PM FLASH WELDING MACHINE OPERATOR H WELDING MACHINE OPERATOR H WELDING MACHINE OPERATOR documented in this encounter Discharge Instructions * Discharge Instructions* Kenia Cagle RN - 02/07/2021 1:28 PM FLASH WELDING MACHINE OPERATOR Patient Education Schizophrenia Discharge Instructions About this topic Schizophrenia is a problem that happens in your brain. It causes you to see or hear things that arenot really there. You may believe things that are not true. When you have schizophrenia, you do notthink clearly. You may stay away from places and times you used to enjoy and have problems with thethings you do every day. You may not feel comfortable when you are with other people. At times, you may have many signs. Other times, you may have very few signs. Doctors treat this illness at the beginning with drugs. You may need to stay in the hospital if youare having very bad signs or if the drugs have not begun to work. This is to keep you safe. What care is needed at home? ?? Ask your doctor what you need to do when you go home. Make sure you ask questions if you do not understand what the doctor says. This way you will know what you need to do. ?? Take all drugs as ordered by your doctor. Do not miss doses. Do not stop taking your drugs even if you are feeling better and signs go away. ?? Tell family and friends about your illness and how they can help. You may need extra help. ?? Talk with your doctor about how to make where you live a safe place. You may need to consider removing knives and other sharp items that are in your home and personal belongings. ?? Remember to get up every day, shower, get dressed, eat, and try to get some fresh air outside. ?? Try to do the most important things first; other things can wait to be done later. ?? Do not do too many things that make you tired. Try to sleep 6 to 8 hours a day. Allow time to rest when you get tired after work or school. What follow-up care is needed? ?? Your doctor may ask you to make visits to the office to check on your progress. Be sure to keep these visits. ?? Your doctor may suggest therapy for you and your family. You can learn skills to help you live with your illness. What lifestyle changes are needed? ?? Ask your doctor if it is safe for you to drive. If you cannot drive, ask a friend or family member to help you get from place to place. ?? Try to eat and drink three times a day, even when you feel your energy is low. Pick many kinds of fruits, vegetables, lean meats, and whole grains to eat. ?? Stay away from drinking beer, wine, and mixed drinks (alcohol) or using illegal drugs. These cankeep your drugs from working well. ?? If you are a smoker, talk with your doctor about how to cut down or stop smoking. What drugs may be needed? The doctor may order drugs to: ?? Balance chemicals in your brain ?? Treat your signs Will physical activity be limited? Ask your doctor about the right amount of activity for you. What problems could happen? ?? You are at risk if you use alcohol or drugs not ordered by your doctor ?? Your drugs are not working well ?? Not able to care for yourself ?? Low mood ?? Suicide What can be done to prevent this health problem? There is no way to prevent this illness. Here are some things you can do that may help the signs tostay away and not come back: ?? Take your drugs as ordered. ?? Know your signs when you are feeling worse and how to get help right away. ?? Make sure others know about your illness and how they can help. When do I need to call the doctor? ?? Your body is having trouble staying still or moving in ways you cannot control ?? Change in mood or behavior ?? See or hear things that are not there ?? Feel like things cannot get better ?? Not able to take care of yourself ?? Have thoughts of hurting yourself or someone else ?? You are feeling worse Helpful tips ?? Join a group. It may help you to share time with others with this illness. ?? Talk to your doctor if you want to get . Teach Back: Helping You Understand The Teach Back Method helps you understand the information we are giving you. After you talk with the staff, tell them in your own words what you learned. This helps to make sure the staff has described each thing clearly. It also helps to explain things that may have been confusing. Before going home, make sure you can do these: ?? I can tell you about my condition. ?? I can tell you why it is important to keep taking my drugs, even if I feel better. ?? I can tell you what I will do if I feel I might hurt myself or someone else. Where can I learn more? Better [employer] https://www.betterhealth.[place].gov.au/health/ConditionsAndTreatments/psychosis [employer] of Health https://www.health.govt.nz/your-health/loqsfoieww-dme-zpzpqujmex/mental-health/s chizophrenia National [place] of Mental Health https://www.nimh.nih.gov/health/statistics/schizophrenia.shtml NHS Choices http://www.nhs.uk/conditions/schizophrenia/pages/introduction.aspx Last Reviewed Date 2019-06-12 Consumer Information Use and Disclaimer This information is not specific medical advice and does not replace information you receive from your health care provider. This is only a brief summary of general information. It does NOT include all information about conditions, illnesses, injuries, tests, procedures, treatments, therapies, discharge instructions or life-style choices that may apply to you. You must talk with your health care provider for complete information about your health and treatment options. This information should not be used to decide whether or not to accept your health care provider???s advice, instructions or recommendations. Only your health care provider has the knowledge and training to provide advice that is right for you. Copyright Copyright ?? 2020 [employer]. and its affiliates and/or licensors. All rights reserved. H WELDING MACHINE OPERATOR * Attachments The following attachments cannot be sent through Care Everywhere. * Lacosamide, ADULT ([place]) * Seizures Discharge Instructions, Adult ([place]) documented in this encounter Medications at Time of Discharge ABILIFY MAINTENA 300 MG Prefilled Syringe IM SYRINGE Inject 300 mg into the muscle every 28 days. 04/14/2019 albuterol sulfate HFA 108 (90 Base) MCG/ACT inhaler Inhale 2 puffs into the lungs every 4 (four) hours as needed for Shortness of breath. 03/31/2019 baclofen 10 MG tablet Take 10 mg by mouth 2 (two) times daily. 04/06/2019 erythromycin 2 % external solution Apply topically 2 (two) times daily. 11/07/2018 escitalopram 20 MG tablet Take 20 mg by mouth daily. 03/28/2019 fluticasone propionate 50 MCG/ACT nasal spray 1 spray by Each Nostril route 2 (two) times daily as needed for Allergies. 03/29/2019 ibuprofen 800 MG tablet Take 800 mg by mouth 2 (two) times daily as needed for Pain. 04/06/2019 lacosamide 100 MG TabIndications:Seizu re ([facility]),Paranoid schizophrenia ([facility]),Major neurocognitive disorder ([facility]) Take 2 tablets (200 mg total) by mouth 2 (two) times daily. 60 tablet 3 02/07/2021 ocrelizumab 300 MG/10ML injection Inject 600 mg into the vein every 6 (six) months. onabotulinumtoxinA 100 units injection Inject 200 Units into the muscle every 3 (three) months. 07/22/2018 SYMBICORT 160-4.5 MCG/ACT inhaler Inhale 2 puffs into the lungs 2 (two) times daily. 04/06/2019 tretinoin 0.01 % gel Apply topically nightly at bedtime. Pea sized amount to entire face at night. 11/14/2018 zonisamide 100 MG capsule Take 500 mg by mouth nightly. 04/06/2019 documented as of this encounter Progress Notes * Kenia Cagle RN - 02/07/2021 12:54 PM CST Problem: Reduced risk for falls/injury Goal: Reduced Risk for Falls/Injury Outcome: Adequate for Discharge Goal: Reduced Risk of Confusion (Acute vs Chronic) Outcome: Adequate for Discharge Goal: Reduced Risk of Symptomatic Depression Outcome: Adequate for Discharge Goal: Reduced Risk of Altered Elimination Outcome: Adequate for Discharge Goal: Reduced Risk of Dizziness/Vertigo/Balance Outcome: Adequate for Discharge Goal: Reduced Risk of Polypharmacy Outcome: Adequate for Discharge Problem: Pain - Acute Goal: Achieve acceptable pain level Outcome: Adequate for Discharge H WELDING MACHINE OPERATOR * Dejon Zeng RN - 02/07/2021 8:03 AM CST CM received a phone call from [facility] transitional nurse, Nadine, to offer assistance with discharge planning. Discussed that patient gets some support thru [employer], but does not have 24/7 care which looks recommended in neuro note. Nadine says she will try to see if they can provide any additional hours for care support. She said she will reach out to the patient today and to [employer] to assist in coordination of services. She asks to be updated with discharge plans and any questions she could assist with. 1045-CM met with patient in her room, she is sitting up in bed. Says she is feeling better and wants to go home. Discussed that neuro recs for having 24/7 supervision for safety. Patient says she hasa boy friend who could come stay with her. She says her mother has covid and is in [place]. She says her son can provided a ride home for her today. She says neither her son nor her mother like her boy friend. Discussed that they want what is in her best H WELDING MACHINE OPERATOR H WELDING MACHINE OPERATOR * Ruba Jain RN - 02/07/2021 2:30 AM CST Problem: Reduced risk for falls/injury Goal: Reduced Risk for Falls/Injury Outcome: Progressing Goal: Reduced Risk of Confusion (Acute vs Chronic) Outcome: Progressing Goal: Reduced Risk of Symptomatic Depression Outcome: Progressing Goal: Reduced Risk of Altered Elimination Outcome: Progressing Goal: Reduced Risk of Dizziness/Vertigo/Balance Outcome: Progressing Goal: Reduced Risk of Polypharmacy Outcome: Progressing Problem: Pain - Acute Goal: Achieve acceptable pain level Outcome: Progressing H WELDING MACHINE OPERATOR * Nidhi Quiroz MD - 02/06/2021 5:08 PM CST Neurology Subsequent Consult Note Name: Meredith Frost Date of : 1980 Date: 02/04/2021 Chief Complaint: seizures History of Present Illness: Meredith Frost is a 40-year-old female with a past medical history significant for multiple sclerosis on Ocrevus, seizures on Zonegran and Vimpat, schizophrenia migraines who presents with recurrent seizures and altered mental status. She reports that she would like to go home. She is anxious to go home. She told me that her mom does not think that she is back to her baseline. She feels that she is improved since yesterday. Current Facility-Administered Medications Medication Dose Route Frequency Provider Last Rate Last Admin ??? albuterol sulfate HFA 108 (90 Base) MCG/ACT inhaler 2 puff 2 puff Inhalation Q4H PRN Yue Braswell MD ??? baclofen (LIORESAL) tablet 10 mg 10 mg Oral BID Yue Braswell MD 10 mg at 02/06/21 0755 ??? enoxaparin (LOVENOX) 40 MG/0.4ML syringe 40 mg 40 mg Subcutaneous Nightly (enoxaparin) Yue Braswell MD ??? escitalopram (LEXAPRO) tablet 20 mg 20 mg Oral Daily Yue Braswell MD 20 mg at 02/06/21 0755 ??? fluticasone propionate (FLONASE) 50 MCG/ACT nasal spray 1 spray 1 spray Each Nostril BID PRN Yue Braswell MD 1 spray at 02/06/21 0755 ??? fluticasone-salmeterol (ADVAIR HFA) 230-21 MCG/ACT inhaler 2 puff 2 puff Inhalation 2 times daily Yue Braswell MD 2 puff at 02/03/21 0835 ??? ibuprofen (MOTRIN) tablet 800 mg 800 mg Oral BID PRN Yue Braswell MD ??? lacosamide (VIMPAT) tablet 200 mg 200 mg Oral BID Valentino Stahl PA-C 200 mg at 02/06/21 0754 ??? LORazepam (ATIVAN) tablet 1 mg 1 mg Oral BID Helen Grant DO 1 mg at 02/06/21 0754 ??? zonisamide (ZONEGRAN) capsule 500 mg 500 mg Oral nightly Yue Braswell MD 500 mg at 02/05/212009 Past Medical History: Diagnosis Date ??? Asthma ??? Cognitive and neurobehavioral dysfunction ??? Migraines ??? MS (multiple sclerosis) (CMS/HCC) ??? Paranoid schizophrenia (CMS/HCC) ??? Seizures (CMS/HCC) History reviewed. No pertinent surgical history. Family History Problem Relation Name Age of Onset ??? Breast Cancer Maternal Aunt ? age Social History Tobacco Use ??? Smoking status: Never Smoker ??? Smokeless tobacco: Never Used Substance Use Topics ??? Alcohol use: Yes Comment: social ??? Drug use: Yes Types: Marijuana Review of Systems Psychiatric/Behavioral: Positive for memory loss. Filed Vitals: 02/05/21 1403 02/05/21 1900 02/06/21 0535 02/06/21 1205 BP: 107/56 103/71 115/78 115/71 Pulse: 96 77 88 99 Resp: 17 18 17 17 Temp: 98.4 ??F (36.9 ??C) 98.2 ??F (36.8 ??C) 98.1 ??F (36.7 ??C) 98.1 ??F (36.7 ??C) TempSrc: Oral Oral Oral Oral SpO2: 99% 97% 99% 98% Weight: 62.5 kg (137 lb 12.8 oz) Height: GENERAL EXAMINATION Patient is in no apparent distress, cooperates with examination. HEAD: normocephalic, atraumatic EYES: normal. EARS, NOSE AND THROAT: normal, no lesions or exudates. NECK: supple CHEST: breathing comfortably CARDIOVASCULAR: regular rate and rhythm, no murmurs GI: non distended EXTREMITIES: no clubbing, edema or cyanosis. MUSCULOSKELETAL: no contractures NEUROLOGY EXAMINATION MENTAL STATUS: Patient was alert, awake and oriented to person and place and time. She can follow commands. Her speech is much more fluent. She is not perseverative but has increased speech latency. ?? CRANIAL NERVES: II: Visual huber were full. Pupils were equal, round and reactive to light and accommodation. III, IV, : normal extraocular movements, no nystagmus. No eyelid ptosis. V: Normal jaw closure and opening. Facial sensation was intact in V1-3 VII: face was symmetric. Eye closure and lip closure were normal. VIII: hearing was normal. IX-X: palate elevates at midline. XI: normal symmetric shoulder shrug. Normal 5/5 sternocleidomastoid strength. XII: tongue was midline and strong. No fasciculations. ?? MOTOR: Normal strength 5/5 on MRC scale in the upper and lower extremities. ?? SENSATION: Moves all 4 extremities to light touch ?? REFLEXES: Not tested ?? COORDINATION: Not tested ?? GAIT: Not tested Imaging and Pertinent Labs: Results for orders placed during the hospital encounter of 02/02/21 MRI BRAIN WWO CON Narrative Exam: MRI brain without and with contrast. Comparison 04/15/2019. Correlating head CT from earlier today. INDICATION: Seizure with a history of seizures and MS. TECHNIQUE: Precontrast and postcontrast imaging with 13 cc intravenous Dotarem left antecubital fossa. FINDINGS: Diffuse volume loss is abnormal for age and is unchanged. Some mild compensatory enlargement of the lateral ventricles is unchanged. No extra-axial fluid collection or mass effect. Normal flow voids in the basilar and internal carotid arteries. Normal orbits. Multiple opacified right mastoid air cells. New findings which could represent inflammation or infection. No acute stroke. No findings for hemorrhage on the gradient images. Diffuse periventricular white matter hyperintensity on FLAIR and T2. This is asymmetric posteriorly. No change. More superiorly, focal and diffuse confluent white matter hyperintensity of the central and peripheral white matter. Nosubstantial change. Small and symmetric focal area of low T1 and high T2 signal within the posterior aspect of each basal ganglia. No change. Normal postcontrast imaging. IMPRESSION: 1. Unchanged atrophy and severe white matter abnormalities. 2. New right mastoid air cell opacification. Referred By: Interpreted By: Joseph Roland MD, 02/02/2021 8:41 PM Impression: Meredith Frost is a 40-year-old female with a past medical history significant for multiple sclerosis on Ocrevus, seizures on Zonegran and Lamictal, schizophrenia migraines who presents with recurrent seizures and altered mental status. She has had interval improvement of her mental status. She continues to perseverate but it is much less frequent. It is likely that she might just have prolonged postictal encephalopathy or she was having some breakthrough seizures that have since improved since bridging her with Ativan and the increase in Vimpat to 200 mg twice per day. She has had a significant clinical improvement over the past few days. At this time, it is probably less likely that she is having ongoing seizures, however she does not appear to be at her baseline. Due to her having a legal guardian discharge planning will have to be made in tandem with her. Despite her improvements, it would be unlikely that she would beable to go home safely unless she had 24-hour supervision. Discharge planning would also have to bediscussed further with her legal guardian. She should only go home once she is back to baseline approaching baseline. ?? Plan: #Breakthrough seizures -Continue Vimpat to 200 mg twice a day -Continue Ativan 1 mg twice daily for 3 days -Continue zonisamide 500 mg nightly -Can continue to monitor symptoms clinically. -Due to interval improvement, and no clinical worsening can consider discussing with legal guardianthe utility of discharge home with 24-hour supervision until fully back to baseline. -As an outpatient, can follow up with her primary neurologist for management of seizures Thank you for this consult. Starting on Sunday at 7am until the following Sunday at 7am, please contact the [facility] Neurologist shanon via [employer] for further questions: [facility] Time spent: 30total minutes reviewing records, history that was separately obtained, performing theexam, providing education to the patient/caregiver, ordering medicine and documenting in the medical record. Nidhi Quiroz MD H WELDING MACHINE OPERATOR * Kenia Cagle RN - 02/06/2021 1:30 PM CST Problem: Reduced risk for falls/injury Goal: Reduced Risk for Falls/Injury Outcome: Progressing Goal: Reduced Risk of Confusion (Acute vs Chronic) Outcome: Progressing Goal: Reduced Risk of Symptomatic Depression Outcome: Progressing Goal: Reduced Risk of Altered Elimination Outcome: Progressing Goal: Reduced Risk of Dizziness/Vertigo/Balance Outcome: Progressing Goal: Reduced Risk of Polypharmacy Outcome: Progressing Problem: Pain - Acute Goal: Achieve acceptable pain level Outcome: Progressing H WELDING MACHINE OPERATOR * Valentino Stahl PA-C - 02/06/2021 11:47 AM CST Hospitalist Daily Progress Note Subjective Meredith Frost is a 40-year-old female on hospital day 4 No acute events overnight. Patient states she is improving cognitively. Still with repetitive speech and short-term memory impairment. Otherwise no acute complaints. Tolerating diet. Pain control. Review of Systems Constitutional: Negative for chills, diaphoresis, fever and malaise/fatigue. HENT: Negative. Eyes: Negative for blurred vision and double vision. Respiratory: Negative for cough, sputum production, shortness of breath and wheezing. Cardiovascular: Negative for chest pain, palpitations, orthopnea and leg swelling. Gastrointestinal: Negative for abdominal pain, blood in stool, constipation, diarrhea, nausea and vomiting. Genitourinary: Negative for dysuria, frequency and hematuria. Musculoskeletal: Negative. Negative for falls. Skin: Negative. Neurological: Negative for dizziness, speech change, focal weakness and headaches. Psychiatric/Behavioral: Negative. Patient seen and examined, notes were reviewed Medication ??? baclofen 10 mg Oral BID ??? enoxaparin 40 mg Subcutaneous Nightly (enoxaparin) ??? escitalopram 20 mg Oral Daily ??? fluticasone-salmeterol 2 puff Inhalation 2 times daily ??? lacosamide 200 mg Oral BID ??? LORazepam 1 mg Oral BID ??? zonisamide 500 mg Oral nightly PRN Meds: albuterol sulfate HFA, fluticasone propionate, ibuprofen Objective PHYSICAL EXAMINATION: Vital 24 Hour Range Most Recent Value Temperature Temp Min: 98.1 ??F (36.7 ??C) Max: 98.4 ??F (36.9 ??C) 98.1 ??F (36.7 ??C) Pulse Pulse Min: 77 Max: 96 88 Respiratory Resp Min: 17 Max: 18 17 Blood Pressure BP Min: 103/71 Max: 115/78 115/78 Pulse Oximetry SpO2 Min: 97 % Max: 99 % 99 % O2 No data recorded Vital Most Recent Value First Value Weight 62.5 kg (137 lb 12.8 oz) Weight: 67.3 kg (148 lb 5.9 oz) Height 5' 5 (165.1 cm) Height: 5' 5 (165.1 cm) BMI 24.58 N/A Estimated body mass index is 22.93 kg/m?? as calculated from the following: Height as of this encounter: 5' 5 (1.651 m). Weight as of this encounter: 62.5 kg (137 lb 12.8 oz). Physical Exam Constitutional: ?General: She is not in acute distress. ?Appearance: Normal appearance. She is not??diaphoretic. HENT: ?Head: Normocephalic??and atraumatic. Eyes: ?Conjunctiva/sclera: Conjunctivae normal. ?Pupils: Pupils are equal, round, and reactive to light. Neck: ?Vascular: No JVD. Cardiovascular: ?Rate and Rhythm: Normal rate??and regular rhythm. ?Heart sounds: No murmur??heard. Pulmonary: ?Effort: Pulmonary effort is normal. No??respiratory distress. ?Breath sounds: No wheezing. Abdominal: ?General: There is no distension. ?Tenderness: There is no abdominal tenderness. There is no??rebound. Skin: ?General: Skin is warm??and dry. ?Findings: No erythema. Neurological: ?Mental Status: She is alert??and oriented to person, place, and time. She is??not lethargic. ?Cranial Nerves: No cranial nerve deficit. Psychiatric: ?Attention and Perception: She does not perceive auditory??or visual??hallucinations. ?Mood and Affect: Affect??normal. Mood is not anxious. Affect is not??labile??or angry. ?Speech: Speech is tangential. ?? Improved and yesterday?Thought Content: Thought content is not paranoid??or delusional. Thought content does not include??homicidal??ideation. ?Judgment: Stable Intake/Output last 3 shifts: I/O last 3 completed shifts: In: 200 [P.O.:200] Out: - Labs: No results found for this or any previous visit (from the past 24 hour(s)). Imagining & Other Studies Radiology Results (Last 30 days) 02/02/212029 MRI BRAIN WWO CON Final result Impression: IMPRESSION: 1. Unchanged atrophy and severe white matter abnormalities. 2. New right mastoid air cell opacification. Referred By: Interpreted By: Joseph Roland MD, 02/02/2021 8:41 PM 02/02/21 1533 XR CHEST PORTABLE Final result Impression: Impression: Right lower lobe opacity may represent atelectasis and/or pneumonia. Referred By: GE GONZALES Interpreted By: Ignacio Fernando Jr, MD, 02/02/2021 3:44 PM 02/02/[address] HEAD WO CON Final result Impression: IMPRESSION: ===== 1. No convincing acute intracranial abnormality. CT is insensitive for acute ischemia. If there is any continued clinical concern for acute infarct, MRI recommended. 2. Diffuse atrophy greater than expected for age. 3. Prominent leukoaraiosis stable from prior study and consistent with patient's history of multiple sclerosis provided on prior studies. Referred By: Interpreted By: Angelito Ross MD, 02/02/2021 2:20 PM No results found for this visit on 02/02/21. Assessment & Plan Length of stay (DAYS):4 Problem List Items Addressed This Visit None Suspected recurrent seizure: Acute encephalopathy Witnessed seizure activity via EMS and ER-required Ativan CT head WNL Increased Vimpat to 200 mg twice daily MRI negative for acute ischemic changes EEG 02/04 negative for seizures, did reveal diffuse cerebral dysfunction/structural abnormalities. Possible history of focal seizures UDS benzodiazepine, cannabinoid positive Neurology consulted. ??Appreciate recs Per neurology recs, Ativan bridge X 3 days Consider repeat EEG Supportive care Follow with neurology [facility] ?? Asthma Stable Continue home inhalers Monitor ?? History multiple sclerosis Schizophrenia Neurocognitive disorder Migraine Cannabis use ?? Advanced care plan: VTE:??SCDs CODE STATUS:??Prior Surrogate decision-maker:??Mother ?? Other changes to meds to be made based on progress during hospitalization. All plans discussed with patient/patient's family/mud boss. They are agreeable with plan and voiced understanding. This note was dictated with [employer] medical dictation software; misspellings, punctuation errors, omitted words or dictation variances may occur. VALENTINO STAHL PA-C 02/06/2021 11:48 AM Primary care physician: VIPUL [facility] Contact Information Primary Emergency Contact: Serg Frost [place] Relation: Mother Cosigned by Helen Grant DO at 02/06/2021 3:30 PM FLASH WELDING MACHINE OPERATOR H WELDING MACHINE OPERATOR H WELDING MACHINE OPERATOR * Ruba Jain RN - 02/05/2021 10:26 PM CST Problem: Reduced risk for falls/injury Goal: Reduced Risk for Falls/Injury Outcome: Progressing Goal: Reduced Risk of Confusion (Acute vs Chronic) Outcome: Progressing Goal: Reduced Risk of Symptomatic Depression Outcome: Progressing Goal: Reduced Risk of Altered Elimination Outcome: Progressing Goal: Reduced Risk of Dizziness/Vertigo/Balance Outcome: Progressing Goal: Reduced Risk of Polypharmacy Outcome: Progressing Problem: Pain - Acute Goal: Achieve acceptable pain level Outcome: Progressing H WELDING MACHINE OPERATOR * Nidhi Quiroz MD - 02/05/2021 3:58 PM CST Neurology Initial Consult Note Name: Meredith Frost Date of : 1980 Date: 02/04/2021 Chief Complaint: seizures History of Present Illness: Meredith Frost is a 40-year-old female with a past medical history significant for multiple sclerosis on Ocrevus, seizures on Zonegran and Vimpat, schizophrenia migraines who presents with recurrent seizures and altered mental status. She reports that she would like to go home. She could tell me what she ate for breakfast and watch how she is watching on TV. She also told me there is no beds at [facility] Current Facility-Administered Medications Medication Dose Route Frequency Provider Last Rate Last Admin ??? albuterol sulfate HFA 108 (90 Base) MCG/ACT inhaler 2 puff 2 puff Inhalation Q4H PRN Yue Braswell MD ??? baclofen (LIORESAL) tablet 10 mg 10 mg Oral BID Yue Braswell MD 10 mg at 02/05/21 0747 ??? enoxaparin (LOVENOX) 40 MG/0.4ML syringe 40 mg 40 mg Subcutaneous Nightly (enoxaparin) Yue Braswell MD ??? escitalopram (LEXAPRO) tablet 20 mg 20 mg Oral Daily Yue Braswell MD 20 mg at 02/05/21 0746 ??? fluticasone propionate (FLONASE) 50 MCG/ACT nasal spray 1 spray 1 spray Each Nostril BID PRN Yue Braswell MD 1 spray at 02/03/212042 ??? fluticasone-salmeterol (ADVAIR HFA) 230-21 MCG/ACT inhaler 2 puff 2 puff Inhalation 2 times daily Yue Braswell MD 2 puff at 02/03/21 0835 ??? ibuprofen (MOTRIN) tablet 800 mg 800 mg Oral BID PRN Yue Braswell MD ??? lacosamide (VIMPAT) tablet 200 mg 200 mg Oral BID Valentino Stahl PA-C 200 mg at 02/05/21 0746 ??? LORazepam (ATIVAN) tablet 1 mg 1 mg Oral BID Helen Grant DO ??? zonisamide (ZONEGRAN) capsule 500 mg 500 mg Oral nightly Yue Braswell MD 500 mg at 02/04/21 1938 Past Medical History: Diagnosis Date ??? Asthma ??? Cognitive and neurobehavioral dysfunction ??? Migraines ??? MS (multiple sclerosis) (CMS/HCC) ??? Paranoid schizophrenia (CMS/HCC) ??? Seizures (CMS/HCC) History reviewed. No pertinent surgical history. Family History Problem Relation Name Age of Onset ??? Breast Cancer Maternal Aunt ? age Social History Tobacco Use ??? Smoking status: Never Smoker ??? Smokeless tobacco: Never Used Substance Use Topics ??? Alcohol use: Yes Comment: social ??? Drug use: Yes Types: Marijuana Review of Systems Psychiatric/Behavioral: Positive for memory loss. Filed Vitals: 02/04/21 1553 02/04/21 1917 02/05/21 0519 02/05/21 1403 BP: 97/75 116/67 108/73 107/56 Pulse: 88 82 82 96 Resp: 16 18 17 Temp: 97.9 ??F (36.6 ??C) 98.1 ??F (36.7 ??C) 98.4 ??F (36.9 ??C) TempSrc: Oral Oral Oral Oral SpO2: 98% 98% 99% 99% Weight: 63.9 kg (140 lb 12.8 oz) Height: GENERAL EXAMINATION Patient is in no apparent distress, cooperates with examination. HEAD: normocephalic, atraumatic EYES: normal. EARS, NOSE AND THROAT: normal, no lesions or exudates. NECK: supple CHEST: breathing comfortably CARDIOVASCULAR: regular rate and rhythm, no murmurs GI: non distended EXTREMITIES: no clubbing, edema or cyanosis. MUSCULOSKELETAL: no contractures NEUROLOGY EXAMINATION MENTAL STATUS: Patient was alert, awake and oriented to person and place but perseverates on the month when I asked her the time. She is able to follow one-step commands and to name. ?? CRANIAL NERVES: II: Visual huber were full. Pupils were equal, round and reactive to light and accommodation. III, IV, : normal extraocular movements, no nystagmus. No eyelid ptosis. V: Normal jaw closure and opening. Facial sensation was intact in V1-3 VII: face was symmetric. Eye closure and lip closure were normal. VIII: hearing was normal. IX-X: palate elevates at midline. XI: normal symmetric shoulder shrug. Normal 5/5 sternocleidomastoid strength. XII: tongue was midline and strong. No fasciculations. ?? MOTOR: Normal strength 5/5 on MRC scale in the upper and lower extremities. ?? SENSATION: Moves all 4 extremities to light touch ?? REFLEXES: Not tested ?? COORDINATION: Not tested ?? GAIT: Not tested Imaging and Pertinent Labs: Results for orders placed during the hospital encounter of 02/02/21 MRI BRAIN WWO CON Narrative Exam: MRI brain without and with contrast. Comparison 04/15/2019. Correlating head CT from earlier today. INDICATION: Seizure with a history of seizures and MS. TECHNIQUE: Precontrast and postcontrast imaging with 13 cc intravenous Dotarem left antecubital fossa. FINDINGS: Diffuse volume loss is abnormal for age and is unchanged. Some mild compensatory enlargement of the lateral ventricles is unchanged. No extra-axial fluid collection or mass effect. Normal flow voids in the basilar and internal carotid arteries. Normal orbits. Multiple opacified right mastoid air cells. New findings which could represent inflammation or infection. No acute stroke. No findings for hemorrhage on the gradient images. Diffuse periventricular white matter hyperintensity on FLAIR and T2. This is asymmetric posteriorly. No change. More superiorly, focal and diffuse confluent white matter hyperintensity of the central and peripheral white matter. Nosubstantial change. Small and symmetric focal area of low T1 and high T2 signal within the posterior aspect of each basal ganglia. No change. Normal postcontrast imaging. IMPRESSION: 1. Unchanged atrophy and severe white matter abnormalities. 2. New right mastoid air cell opacification. Referred By: Interpreted By: Joseph Roland MD, 02/02/2021 8:41 PM Impression: Meredith Frost is a 40-year-old female with a past medical history significant for multiple sclerosis on Ocrevus, seizures on Zonegran and Lamictal, schizophrenia migraines who presents with recurrent seizures and altered mental status. She has had interval improvement of her mental status. She continues to perseverate but it is much less frequent. It is likely that she might just have prolonged postictal encephalopathy or she was having some breakthrough seizures that have since improved since bridging her with Ativan and the increase in Vimpat to 200 mg twice per day. At this time, since she has clinical improvement, it would be reasonable to monitor her clinically, however it would be ideal for her to have continuous EEG monitoring. At this time we will continue medications unchanged and trend her exam. ?? Plan: #Breakthrough seizures -Continue Vimpat to 200 mg twice a day -Continue Ativan 1 mg twice daily for 3 days -Continue zonisamide 500 mg nightly -Consider transfer for continuous EEG due to concern for subclinical seizures, however it is also reasonable to continue to trend her exam clinically since she is improving since no beds are available. Neurology will continue to follow please Doc halo me with any questions Time spent: 30total minutes reviewing records, history that was separately obtained, performing theexam, providing education to the patient/caregiver, ordering medicine and documenting in the medical record. Nidhi Quiroz MD H WELDING MACHINE OPERATOR H WELDING MACHINE OPERATOR * Valentino Stahl PA-C - 02/05/2021 7:14 AM CST Hospitalist Daily Progress Note Subjective Meredith Frost is a 40-year-old female on hospital day 4 No acute events overnight. Patient continues to improve on current medical management. No acute complaint at this time. Sleeping well and tolerating diet appropriately. Review of Systems Constitutional: Negative for chills, diaphoresis, fever and malaise/fatigue. HENT: Negative. Eyes: Negative for blurred vision and double vision. Respiratory: Negative for cough, sputum production, shortness of breath and wheezing. Cardiovascular: Negative for chest pain, palpitations, orthopnea and leg swelling. Gastrointestinal: Negative for abdominal pain, blood in stool, constipation, diarrhea, nausea and vomiting. Genitourinary: Negative for dysuria, frequency and hematuria. Musculoskeletal: Negative. Negative for falls. Skin: Negative. Neurological: Negative for dizziness, speech change, focal weakness and headaches. Psychiatric/Behavioral: Negative. Patient seen and examined, notes were reviewed Medication ??? baclofen 10 mg Oral BID ??? enoxaparin 40 mg Subcutaneous Nightly (enoxaparin) ??? escitalopram 20 mg Oral Daily ??? fluticasone-salmeterol 2 puff Inhalation 2 times daily ??? lacosamide 200 mg Oral BID ??? LORazepam 1 mg Oral BID ??? zonisamide 500 mg Oral nightly PRN Meds: albuterol sulfate HFA, fluticasone propionate, ibuprofen Objective PHYSICAL EXAMINATION: Vital 24 Hour Range Most Recent Value Temperature Temp Min: 98.1 ??F (36.7 ??C) Max: 98.4 ??F (36.9 ??C) 98.1 ??F (36.7 ??C) Pulse Pulse Min: 77 Max: 96 88 Respiratory Resp Min: 17 Max: 18 17 Blood Pressure BP Min: 103/71 Max: 115/78 115/78 Pulse Oximetry SpO2 Min: 97 % Max: 99 % 99 % O2 No data recorded Vital Most Recent Value First Value Weight 62.5 kg (137 lb 12.8 oz) Weight: 67.3 kg (148 lb 5.9 oz) Height 5' 5 (165.1 cm) Height: 5' 5 (165.1 cm) BMI 24.58 N/A Estimated body mass index is 22.93 kg/m?? as calculated from the following: Height as of this encounter: 5' 5 (1.651 m). Weight as of this encounter: 62.5 kg (137 lb 12.8 oz). Physical Exam Constitutional: ?General: She is not in acute distress. ?Appearance: Normal appearance. She is not??diaphoretic. HENT: ?Head: Normocephalic??and atraumatic. Eyes: ?Conjunctiva/sclera: Conjunctivae normal. ?Pupils: Pupils are equal, round, and reactive to light. Neck: ?Vascular: No JVD. Cardiovascular: ?Rate and Rhythm: Normal rate??and regular rhythm. ?Heart sounds: No murmur??heard. Pulmonary: ?Effort: Pulmonary effort is normal. No??respiratory distress. ?Breath sounds: No wheezing. Abdominal: ?General: There is no distension. ?Tenderness: There is no abdominal tenderness. There is no??rebound. Skin: ?General: Skin is warm??and dry. ?Findings: No erythema. Neurological: ?Mental Status: She is alert??and oriented to person, place, and time. She is??not lethargic. ?Cranial Nerves: No cranial nerve deficit. Psychiatric: ?Attention and Perception: She does not perceive auditory??or visual??hallucinations. ?Mood and Affect: Affect??normal. Mood is not anxious. Affect is not??labile??or angry. ?Speech: Speech is tangential. ?? Improved and yesterday?Thought Content: Thought content is not paranoid??or delusional. Thought content does not include??homicidal??ideation. ?Judgment: Stable Intake/Output last 3 shifts: I/O last 3 completed shifts: In: 200 [P.O.:200] Out: - Labs: No results found for this or any previous visit (from the past 24 hour(s)). Imagining & Other Studies Radiology Results (Last 30 days) 02/02/212029 MRI BRAIN WWO CON Final result Impression: IMPRESSION: 1. Unchanged atrophy and severe white matter abnormalities. 2. New right mastoid air cell opacification. Referred By: Interpreted By: Joseph Roland MD, 02/02/2021 8:41 PM 02/02/21 1533 XR CHEST PORTABLE Final result Impression: Impression: Right lower lobe opacity may represent atelectasis and/or pneumonia. Referred By: GE GONZALES Interpreted By: Ignacio Fernando Jr, MD, 02/02/2021 3:44 PM 02/02/[address] HEAD WO CON Final result Impression: IMPRESSION: ===== 1. No convincing acute intracranial abnormality. CT is insensitive for acute ischemia. If there is any continued clinical concern for acute infarct, MRI recommended. 2. Diffuse atrophy greater than expected for age. 3. Prominent leukoaraiosis stable from prior study and consistent with patient's history of multiple sclerosis provided on prior studies. Referred By: Interpreted By: Angelito Ross MD, 02/02/2021 2:20 PM No results found for this visit on 02/02/21. Assessment & Plan Length of stay (DAYS):4 Problem List Items Addressed This Visit None Suspected recurrent seizure: Acute encephalopathy Witnessed seizure activity via EMS and ER-required Ativan CT head WNL Increased Vimpat to 200 mg twice daily MRI negative for acute ischemic changes EEG 02/04 negative for seizures, did reveal diffuse cerebral dysfunction/structural abnormalities. Possible history of focal seizures UDS benzodiazepine, cannabinoid positive Neurology consulted. ??Appreciate recs Per neurology recs, Ativan bridge X 3 days Consider repeat EEG Supportive care Follow with neurology Accepted for transfer to [facility], awaiting bed ?? Asthma Stable Continue home inhalers Monitor ?? History multiple sclerosis Schizophrenia Neurocognitive disorder Migraine Cannabis use ?? Advanced care plan: VTE:??SCDs CODE STATUS:??Prior Surrogate decision-maker:??Mother Other changes to meds to be made based on progress during hospitalization. All plans discussed with patient/patient's family/mud boss. They are agreeable with plan and voiced understanding. This note was dictated with [employer] medical dictation software; misspellings, punctuation errors, omitted words or dictation variances may occur. VALENTINO STAHL PA-C 02/06/2021 7:15 AM Primary care physician: MATTY DIN[facility] Contact Information Primary Emergency Contact: Serg Frost Relation: Mother Cosigned by Helen Grant DO at 02/06/2021 3:42 PM FLASH WELDING MACHINE OPERATOR H WELDING MACHINE OPERATOR H WELDING MACHINE OPERATOR * Ruba Jain RN - 02/05/2021 2:37 AM CST Problem: Reduced risk for falls/injury Goal: Reduced Risk for Falls/Injury Outcome: Progressing Goal: Reduced Risk of Confusion (Acute vs Chronic) Outcome: Progressing Goal: Reduced Risk of Symptomatic Depression Outcome: Progressing Goal: Reduced Risk of Altered Elimination Outcome: Progressing Goal: Reduced Risk of Dizziness/Vertigo/Balance Outcome: Progressing Goal: Reduced Risk of Polypharmacy Outcome: Progressing Problem: Pain - Acute Goal: Achieve acceptable pain level Outcome: Progressing H WELDING MACHINE OPERATOR * Nidhi Quiroz MD - 02/04/2021 4:00 PM CST Neurology Initial Consult Note Name: Meredith Frost Date of : 1980 Date: 02/04/2021 Chief Complaint: seizures History of Present Illness: Meredith Frost is a 40-year-old female with a past medical history significant for multiple sclerosis on Ocrevus, seizures on Zonegran and Vimpat, schizophrenia migraines who presents with recurrent seizures and altered mental status. Her EEG yesterday did not show any seizures but did show left frontotemporal slowing along with frequent left temporal sharps. The patient still had difficulty expressing herself this morning but says she is back to her baseline. She could not tell me what she ate for breakfast or where she was. Spoke with her mother at length. Her mother reports that she is her daughter's guardian legally. She said that she is very far off her baseline based off of the conversation that she had with her earlier. She said that she is been compliant with her medications and had not identified any clear provoking factors. Due to the fact that she follows closely at [facility] she would prefer for her to be transferred there for continued management. Current Facility-Administered Medications Medication Dose Route Frequency Provider Last Rate Last Admin ??? albuterol sulfate HFA 108 (90 Base) MCG/ACT inhaler 2 puff 2 puff Inhalation Q4H PRN Yue Braswell MD ??? baclofen (LIORESAL) tablet 10 mg 10 mg Oral BID Yue Braswell MD 10 mg at 02/04/21 1033 ??? enoxaparin (LOVENOX) 40 MG/0.4ML syringe 40 mg 40 mg Subcutaneous Nightly (enoxaparin) Yue Braswell MD ??? escitalopram (LEXAPRO) tablet 20 mg 20 mg Oral Daily Yue Braswell MD 20 mg at 02/04/21 1034 ??? fluticasone propionate (FLONASE) 50 MCG/ACT nasal spray 1 spray 1 spray Each Nostril BID PRN Yue Braswell MD 1 spray at 02/03/21 2043 ??? fluticasone-salmeterol (ADVAIR HFA) 230-21 MCG/ACT inhaler 2 puff 2 puff Inhalation 2 times daily Yue Braswell MD 2 puff at 02/03/21 0835 ??? ibuprofen (MOTRIN) tablet 800 mg 800 mg Oral BID PRN Yue Braswell MD ??? lacosamide (VIMPAT) tablet 200 mg 200 mg Oral BID Valentino Stahl PA-C 200 mg at 02/04/21 1034 ??? LORazepam (ATIVAN) tablet 1 mg 1 mg Oral BID Valentino Stahl PA-C 1 mg at 02/04/21 1346 ??? zonisamide (ZONEGRAN) capsule 500 mg 500 mg Oral nightly Yue Braswell MD 500 mg at 02/03/212035 Past Medical History: Diagnosis Date ??? Asthma ??? Cognitive and neurobehavioral dysfunction ??? Migraines ??? MS (multiple sclerosis) (CMS/HCC) ??? Paranoid schizophrenia (CMS/HCC) ??? Seizures (CMS/HCC) History reviewed. No pertinent surgical history. Family History Problem Relation Name Age of Onset ??? Breast Cancer Maternal Aunt ? age Social History Tobacco Use ??? Smoking status: Never Smoker ??? Smokeless tobacco: Never Used Substance Use Topics ??? Alcohol use: Yes Comment: social ??? Drug use: Yes Types: Marijuana ROS Filed Vitals: 02/04/21 0433 02/04/21 0600 02/04/21 0800 02/04/21 1553 BP: 124/71 118/53 97/75 Pulse: 84 84 88 Resp: 18 18 16 Temp: 98.2 ??F (36.8 ??C) 98.4 ??F (36.9 ??C) 97.9 ??F (36.6 ??C) TempSrc: Oral Oral SpO2: 98% 98% Weight: 64.9 kg (143 lb 1.6 oz) Height: GENERAL EXAMINATION Patient is in no apparent distress, cooperates with examination. HEAD: normocephalic, atraumatic EYES: normal. EARS, NOSE AND THROAT: normal, no lesions or exudates. NECK: supple CHEST: breathing comfortably CARDIOVASCULAR: regular rate and rhythm, no murmurs GI: non distended EXTREMITIES: no clubbing, edema or cyanosis. MUSCULOSKELETAL: no contractures NEUROLOGY EXAMINATION MENTAL STATUS: Patient was alert, awake and oriented to person. She is perseverative and intermittently follows one-step commands but will also perseverate on those as well. ?? CRANIAL NERVES: II: Visual huber were full. Pupils were equal, round and reactive to light and accommodation. III, IV, : normal extraocular movements, no nystagmus. No eyelid ptosis. V: Normal jaw closure and opening. Facial sensation was intact in V1-3 VII: face was symmetric. Eye closure and lip closure were normal. VIII: hearing was normal. IX-X: palate elevates at midline. XI: normal symmetric shoulder shrug. Normal 5/5 sternocleidomastoid strength. XII: tongue was midline and strong. No fasciculations. ?? MOTOR: Normal strength 5/5 on MRC scale in the upper and lower extremities. ?? SENSATION: Moves all 4 extremities to light touch ?? REFLEXES: Not tested ?? COORDINATION: Unable to assess ?? GAIT: Not tested Imaging and Pertinent Labs: Results for orders placed during the hospital encounter of 02/02/21 MRI BRAIN WWO CON Narrative Exam: MRI brain without and with contrast. Comparison 04/15/2019. Correlating head CT from earlier today. INDICATION: Seizure with a history of seizures and MS. TECHNIQUE: Precontrast and postcontrast imaging with 13 cc intravenous Dotarem left antecubital fossa. FINDINGS: Diffuse volume loss is abnormal for age and is unchanged. Some mild compensatory enlargement of the lateral ventricles is unchanged. No extra-axial fluid collection or mass effect. Normal flow voids in the basilar and internal carotid arteries. Normal orbits. Multiple opacified right mastoid air cells. New findings which could represent inflammation or infection. No acute stroke. No findings for hemorrhage on the gradient images. Diffuse periventricular white matter hyperintensity on FLAIR and T2. This is asymmetric posteriorly. No change. More superiorly, focal and diffuse confluent white matter hyperintensity of the central and peripheral white matter. Nosubstantial change. Small and symmetric focal area of low T1 and high T2 signal within the posterior aspect of each basal ganglia. No change. Normal postcontrast imaging. IMPRESSION: 1. Unchanged atrophy and severe white matter abnormalities. 2. New right mastoid air cell opacification. Referred By: Interpreted By: Joseph Roland MD, 02/02/2021 8:41 PM Impression: Meredith Frost is a 40-year-old female with a past medical history significant for multiple sclerosis on Ocrevus, seizures on Zonegran and Lamictal, schizophrenia migraines who presents with recurrent seizures and altered mental status. No clear provoking factor has been identified. She did have a UDS positive for cannabinoids which can lead to lower seizure threshold. EEG performed while she was symptomatic with altered mental status did not show any seizures. She did have quite frequent left temporal sharp waves. She still is perseverative and has not not returned to baseline. But still very possible that she might be having intermittent focal seizures that is causing her to have persistent language difficulties and perseveration. At this time, she benefit from more frequent or possibly continuous video EEG monitoring to assess for subclinical seizures as a cause of her persistent encephalopathy. At this time, we can incr ease her Vimpat and start her on a benzo bridge while we wait for the event that to become therapeutic. Also looking to transfer for higher level of care for EEG monitoring. ?? Plan: #Breakthrough seizures -Increase Vimpat to 200 mg twice a day -Start Ativan 1 mg twice daily for 3 days -Continue zonisamide 500 mg nightly -Consider transfer for continuous EEG due to concern for subclinical seizures Neurology will continue to follow please Doc halo me with any questions Time spent: 50 total minutes reviewing records, history that was separately obtained, performing the exam, providing education to the patient/caregiver, ordering medicine and documenting in the medical record. Nidhi Quiroz MD H WELDING MACHINE OPERATOR H WELDING MACHINE OPERATOR * Dejon Zeng RN - 02/04/2021 2:22 PM CST Patient/plan of care discussed in discharge planning meeting. Following neuro recs, making med changes, with close patient observation. May discharge over the weekend. No CM needs identified. H WELDING MACHINE OPERATOR * Valentino Stahl PA-C - 02/04/2021 10:39 AM CST Hospitalist Daily Progress Note Subjective Meredith Frost is a 40-year-old female on hospital day 2 No acute events overnight. Patient feels improved from a cognitive standpoint. No other acute complaints. Tolerating diet. Pain controlled. Review of Systems Constitutional: Negative for chills, diaphoresis, fever and malaise/fatigue. HENT: Negative. Eyes: Negative for blurred vision and double vision. Respiratory: Negative for cough, sputum production, shortness of breath and wheezing. Cardiovascular: Negative for chest pain, palpitations, orthopnea and leg swelling. Gastrointestinal: Negative for abdominal pain, blood in stool, constipation, diarrhea, nausea and vomiting. Genitourinary: Negative for dysuria, frequency and hematuria. Musculoskeletal: Negative. Negative for falls. Skin: Negative. Neurological: Negative for dizziness, speech change, focal weakness and headaches. Psychiatric/Behavioral: Negative. Patient seen and examined, notes were reviewed Medication ??? baclofen 10 mg Oral BID ??? enoxaparin 40 mg Subcutaneous Nightly (enoxaparin) ??? escitalopram 20 mg Oral Daily ??? fluticasone-salmeterol 2 puff Inhalation 2 times daily ??? lacosamide 200 mg Oral BID ??? LORazepam 1 mg Oral BID ??? zonisamide 500 mg Oral nightly PRN Meds: albuterol sulfate HFA, fluticasone propionate, ibuprofen Objective PHYSICAL EXAMINATION: Vital 24 Hour Range Most Recent Value Temperature Temp Min: 97.9 ??F (36.6 ??C) Max: 98.6 ??F (37 ??C) (P) 98.4 ??F (36.9 ??C) Pulse Pulse Min: 79 Max: 88 (P) 84 Respiratory Resp Min: 16 Max: 18 (P) 18 Blood Pressure BP Min: 100/58 Max: 124/71 (P) 118/53 Pulse Oximetry SpO2 Min: 96 % Max: 99 % 98 % O2 No data recorded Vital Most Recent Value First Value Weight 64.9 kg (143 lb 1.6 oz) Weight: 67.3 kg (148 lb 5.9 oz) Height 5' 5 (165.1 cm) Height: 5' 5 (165.1 cm) BMI 24.58 N/A Estimated body mass index is 23.81 kg/m?? as calculated from the following: Height as of this encounter: 5' 5 (1.651 m). Weight as of this encounter: 64.9 kg (143 lb 1.6 oz). Physical Exam Constitutional: General: She is not in acute distress. Appearance: Normal appearance. She is not diaphoretic. HENT: Head: Normocephalic and atraumatic. Eyes: Conjunctiva/sclera: Conjunctivae normal. Pupils: Pupils are equal, round, and reactive to light. Neck: Vascular: No JVD. Cardiovascular: Rate and Rhythm: Normal rate and regular rhythm. Heart sounds: No murmur heard. Pulmonary: Effort: Pulmonary effort is normal. No respiratory distress. Breath sounds: No wheezing. Abdominal: General: There is no distension. Tenderness: There is no abdominal tenderness. There is no rebound. Skin: General: Skin is warm and dry. Findings: No erythema. Neurological: Mental Status: She is alert and oriented to person, place, and time. She is not lethargic. Cranial Nerves: No cranial nerve deficit. Psychiatric: Attention and Perception: She does not perceive auditory or visual hallucinations. Mood and Affect: Affect normal. Mood is not anxious. Affect is not labile or angry. Speech: Speech is tangential. Improved and yesterday Thought Content: Thought content is not paranoid or delusional. Thought content does not include homicidal ideation. Judgment: Stable Intake/Output last 3 shifts: I/O last 3 completed shifts: In: - Out: 200 [Urine:200] Labs: No results found for this or any previous visit (from the past 24 hour(s)). Imagining & Other Studies Radiology Results (Last 30 days) 02/02/212029 MRI BRAIN WWO CON Final result Impression: IMPRESSION: 1. Unchanged atrophy and severe white matter abnormalities. 2. New right mastoid air cell opacification. Referred By: Interpreted By: Joseph Roland MD, 02/02/2021 8:41 PM 02/02/21 1533 XR CHEST PORTABLE Final result Impression: Impression: Right lower lobe opacity may represent atelectasis and/or pneumonia. Referred By: GE GONZALES Interpreted By: Ignacio Fernando Jr, MD, 02/02/2021 3:44 PM 02/02/[address] HEAD WO CON Final result Impression: IMPRESSION: ===== 1. No convincing acute intracranial abnormality. CT is insensitive for acute ischemia. If there is any continued clinical concern for acute infarct, MRI recommended. 2. Diffuse atrophy greater than expected for age. 3. Prominent leukoaraiosis stable from prior study and consistent with patient's history of multiple sclerosis provided on prior studies. Referred By: Interpreted By: Angelito Ross MD, 02/02/2021 2:20 PM No results found for this visit on 02/02/21. Assessment & Plan Length of stay (DAYS):2 Problem List Items Addressed This Visit None Suspected recurrent seizure: Acute encephalopathy Witnessed seizure activity via EMS and ER-required Ativan CT head WNL Increased Vimpat to 200 mg twice daily MRI negative for acute ischemic changes EEG 02/04 negative for seizures, did reveal diffuse cerebral dysfunction/structural abnormalities. Possible history of focal seizures UDS benzodiazepine, cannabinoid positive Neurology consulted. Appreciate recs Per neurology recs, Ativan bridge X 3 days Consider repeat EEG Supportive care Follow with neurology ?? Asthma Stable Continue home inhalers Monitor ?? History multiple sclerosis Schizophrenia Neurocognitive disorder Migraine Cannabis use ?? Advanced care plan: VTE: SCDs CODE STATUS: Prior Surrogate decision-maker: Mother ?? Other changes to meds to be made based on progress during hospitalization. All plans discussed with patient/patient's family/mud boss. They are agreeable with plan and voiced understanding. This note was dictated with [employer] medical dictation software; misspellings, punctuation errors, omitted words or dictation variances may occur. VALENTINO STAHL PA-C 02/04/2021 10:39 AM Primary care physician: LAUREN PAGE [facility]- Extended Emergency Contact Information Primary Emergency Contact: Serg Frost Relation: Mother Cosigned by Helen Grant DO at 02/04/2021 1:55 PM FLASH WELDING MACHINE OPERATOR H WELDING MACHINE OPERATOR H WELDING MACHINE OPERATOR * Omayra Rosen RD - 02/04/2021 9:07 AM CST CLINICAL DIETITIAN RE-EVALUATION OF ADMISSION SCREENING Admission Malnutrition Screening Tool (MST) score of 2 noted due to unsure weight loss prior to admission. Weight History: Per pt chart and previous admissions, pt weight 135 lbs and currently weighs 143 lbs. Her BMI is currently in the healthy range. I see no issues with weight loss or diet. After further investigation, the initial MST score has been identified as a false positive result. A complete nutrition assessment does not appear indicated at this time. RD will provide basic nutrition services and rescreen for nutrition risk per protocol. Omayra Rosen RD, LDN H WELDING MACHINE OPERATOR * Deidra Wilks RN - 02/04/2021 5:09 AM CST Pt is oriented to person and time. She is independent but Bed Alarm is kept on for safety. She is notably confused and can repeat things at times. She was adamant on taking her Symbicort before bed, and was educated that Advair was ordered in replacement of it. Respiratory came up and educated her also. When we came back into the room, we walked in on her taking her 2 puffs of Symbicort that she had in her purse. She was educated on this and she was still adamant on why she needed it. Her vital signs are stable. She slept well throughout the night. Problem: Reduced risk for falls/injury Goal: Reduced Risk for Falls/Injury Outcome: Progressing Goal: Reduced Risk of Confusion (Acute vs Chronic) Outcome: Progressing Goal: Reduced Risk of Symptomatic Depression Outcome: Progressing Goal: Reduced Risk of Altered Elimination Outcome: Progressing Goal: Reduced Risk of Dizziness/Vertigo/Balance Outcome: Progressing Goal: Reduced Risk of Polypharmacy Outcome: Progressing Problem: Pain - Acute Goal: Achieve acceptable pain level Outcome: Progressing H WELDING MACHINE OPERATOR * Chantelle Jimenez RPH - 02/03/2021 2:38 PM CST Risk stratification per VTE protocol Risk stratified to Moderate Lovenox doses already ordered by provider H WELDING MACHINE OPERATOR * Sammi Strauss - 02/03/2021 11:54 AM CST 02/03/21 1103 Spiritual Care Patient Status Visit date 02/03/21 Physical condition of patient Slurred speech;Alert Indication of spiritual strengths Acceptance Spiritual Beliefs/Perceptions Concept of God Ever-Present God's Role in Disease Natural (Part of life) Relationship with God Distant Support Systems Spouse/significant other;Children Plan of Care Care Plan Initiated Yes;Patient Spiritual care goals patient;family;begin/continue to experience spiritual support in manner that is comfortable for them;acceptance;awareness of pastoral presence/services;identified spiritual strengths/resources H WELDING MACHINE OPERATOR * Valentino Stahl PA-C - 02/03/2021 11:15 AM CST Hospitalist Daily Progress Note Subjective Meredith Frost is a 40-year-old female on hospital day 1 No acute events overnight. Patient appears comfortable however with tangential thinking with repetition. Easily redirectable. Feels improved since yesterday. No other acute complaints. Tolerating diet. Review of Systems Constitutional: Negative for chills, diaphoresis and fever. HENT: Negative. Eyes: Negative. Negative for blurred vision. Respiratory: Negative. Cardiovascular: Negative for chest pain, palpitations and leg swelling. Gastrointestinal: Negative for abdominal pain, nausea and vomiting. Genitourinary: Negative for dysuria. Musculoskeletal: Negative. Skin: Negative. Neurological: Negative. Negative for dizziness, focal weakness, weakness and headaches. All other systems reviewed and are negative. Patient seen and examined, notes were reviewed Medication ??? ARIPiprazole ER 300 mg Intramuscular Q28 Days ??? baclofen 10 mg Oral BID ??? enoxaparin 40 mg Subcutaneous Nightly (enoxaparin) ??? escitalopram 20 mg Oral Daily ??? fluticasone-salmeterol 2 puff Inhalation 2 times daily ??? lacosamide 100 mg Oral BID ??? zonisamide 500 mg Oral nightly PRN Meds: albuterol sulfate HFA, fluticasone propionate, ibuprofen Objective PHYSICAL EXAMINATION: Vital 24 Hour Range Most Recent Value Temperature Temp Min: 97.6 ??F (36.4 ??C) Max: 98.1 ??F (36.7 ??C) 98 ??F (36.7 ??C) Pulse Pulse Min: 72 Max: 97 97 Respiratory Resp Min: 16 Max: 20 18 Blood Pressure BP Min: 96/52 Max: 141/97 111/70 Pulse Oximetry SpO2 Min: 96 % Max: 100 % 96 % O2 No data recorded Vital Most Recent Value First Value Weight 66.5 kg (146 lb 9.6 oz) Weight: 67.3 kg (148 lb 5.9 oz) Height 5' 5 (165.1 cm) Height: 5' 5 (165.1 cm) BMI 24.58 N/A Estimated body mass index is 24.4 kg/m?? as calculated from the following: Height as of this encounter: 5' 5 (1.651 m). Weight as of this encounter: 66.5 kg (146 lb 9.6 oz). Physical Exam Constitutional: General: She is not in acute distress. Appearance: Normal appearance. She is not diaphoretic. HENT: Head: Normocephalic and atraumatic. Eyes: Conjunctiva/sclera: Conjunctivae normal. Pupils: Pupils are equal, round, and reactive to light. Neck: Vascular: No JVD. Cardiovascular: Rate and Rhythm: Normal rate and regular rhythm. Heart sounds: No murmur heard. Pulmonary: Effort: Pulmonary effort is normal. No respiratory distress. Breath sounds: No wheezing. Abdominal: General: There is no distension. Tenderness: There is no abdominal tenderness. There is no rebound. Skin: General: Skin is warm and dry. Findings: No erythema. Neurological: Mental Status: She is alert and oriented to person, place, and time. She is not lethargic. Cranial Nerves: No cranial nerve deficit. Psychiatric: Attention and Perception: She does not perceive auditory or visual hallucinations. Mood and Affect: Affect normal. Mood is not anxious. Affect is not labile or angry. Speech: Speech is rapid and pressured and tangential. Behavior: Behavior is hyperactive. Thought Content: Thought content is not paranoid or delusional. Thought content does not include homicidal ideation. Judgment: Judgment is impulsive. Intake/Output last 3 shifts: I/O last 3 completed shifts: In: - Out: 350 [Urine:350] Labs: Recent Results (from the past 24 hour(s)) CBC W/DIFF AUTOMATED Collection Time: 02/02/21 1:24 PM Result Value Ref Range WBC 10.7 4.5 - 11.0 x10'3/uL RBC 4.64 4.20 - 5.40 x10'6/uL HGB 10.4 (L) 12.0 - 16.0 G/DL HCT 35.6 (L) 38.0 - 48.0 % MCV 76.7 (L) 81.0 - 99.0 FL MCH 22.4 (L) 27.0 - 31.0 PG MCHC 29.2 (L) 32.0 - 36.0 G/DL RDW 18.4 (H) 11.5 - 14.5 % PLT 376 130 - 400 x10'3/uL MPV 9.5 9.3 - 12.2 FL DIFFERENTIAL TYPE AUTOMATED DIFFERENTIAL NEUTROPHILS 68.4 % LYMPHOCYTES 14.4 % MONOCYTES 9.4 % EOSINOPHILS 6.3 % BASOPHILS 0.8 % IMMATURE GRANS 0.7 % ABS. NEUTROPHILS TOTAL 7.30 1.80 - 7.70 x10'3/uL ABS. LYMPHOCYTES 1.53 1.00 - 4.80 x10'3/uL ABS. MONOCYTES 1.00 (H) 0.24 - 0.86 x10'3/uL ABS. EOSINOPHILS 0.67 (H) 0.04 - 0.36 x10'3/uL ABS. BASOPHILS 0.09 (H) 0.01 - 0.08 x10'3/uL ABS. IMMATURE GRANULOCYTES 0.07 0.00 - 0.49 x10'3/uL PROTIME/INR, VENOUS Collection Time: 02/02/21 1:24 PM Result Value Ref Range Protime 11.4 10.2 - 12.9 SEC INR 1.0 PARTIAL THROMBOPLASTIN TIME,PTT Collection Time: 02/02/21 1:24 PM Result Value Ref Range PTT 26.9 25.1 - 36.5 SEC ETHANOL Collection Time: 02/02/21 1:24 PM Result Value Ref Range Alcohol <0.003 <0.003 G/DL ACETAMINOPHEN Collection Time: 02/02/21 1:24 PM Result Value Ref Range Acetaminophen <2.0 (L) 10.0 - 30.0 MCG/ML CULTURE URINE Collection Time: 02/02/21 4:55 PM Specimen: URINE, UNSPECIFIED Result Value Ref Range Spec. Description URINE, UNSPECIFIED Special Requests: NO SPECIAL REQUEST Culture Result: NO GROWTH 1 DAY SALICYLATE Collection Time: 02/02/21 5:02 PM Result Value Ref Range Salicylates 4.2 2.8 - 20.0 MG/DL COMPREHENSIVE METABOLIC PANEL Collection Time: 02/02/21 6:00 PM Result Value Ref Range GLUCOSE 93 70 - 99 MG/DL BUN 19 (H) 7 - 18 MG/DL CREATININE S/P/B 0.73 0.55 - 1.02 MG/DL SODIUM 140 136 - 145 MMOL/L POTASSIUM 3.6 3.5 - 5.1 MMOL/L CHLORIDE S/P/B 111 (H) 100 - 108 MMOL/L CO2 23.6 21 - 32 MMOL/L CALCIUM 9.0 8.5 - 10.1 MG/DL BILIRUBIN TOTAL S/P/B 0.3 0.2 - 1.2 MG/DL TOTAL PROTEIN S/P/B 7.0 6.4 - 8.2 G/DL ALBUMIN S/P/B 3.5 3.4 - 5.0 G/DL AST 12 (L) 15 - 37 U/L ALT 27 14 - 55 U/L ALKALINE PHOSPHATASE S/P/B 72 50 - 136 U/L ANION GAP 5.4 5 - 15 MMOL/L BUN CREATININE RATIO 26.0 6 - 26 A/G RATIO 1.0 1.0 - 2.0 RATIO eGFR Non-Afr. Amer. >90 >90 ML/MIN/1.73 M2 eGFR Afr. Amer. >90 >90 ML/MIN/1.73 M2 MAGNESIUM Collection Time: 02/02/21 6:00 PM Result Value Ref Range MAGNESIUM 2.5 (H) 1.8 - 2.4 MG/DL PHOSPHORUS, INORGANIC PHOSPHATE Collection Time: 02/02/21 6:00 PM Result Value Ref Range PHOSPHORUS 2.8 2.5 - 4.9 MG/DL CHORIONIC GONADOTROPIN HCG QL Collection Time: 02/02/21 6:00 PM Result Value Ref Range PREG SCREEN-SERUM NEGATIVE URINALYSIS Collection Time: 02/02/21 6:40 PM Result Value Ref Range Specimen Type URINE CLEAN CATCH COLOR (U) YELLOW TRANSPARENCY CLEAR Specific [place] (U) 1.020 1.001 - 1.030 U PH 7.0 5.0 - 9.0 LEUKOCYTE ESTERASE 250 (A) NEGATIVE NITRITES NEGATIVE NEGATIVE PROTEIN (U) NEGATIVE <30 MG/DL URINE GLUCOSE NORMAL NORMAL MG/DL U KETONES NEGATIVE NEGATIVE MG/DL UROBILINOGEN NORMAL NORMAL MG/DL BILIRUBIN (U) NEGATIVE NEGATIVE MG/DL BLOOD NEGATIVE NEGATIVE CULTURE & SENSITIVITY INDICATED? SPECIMEN SETUP FOR CULTURE MUCUS RARE /LPF WBC/HPF 6 (H) <6 /HPF RBC/HPF 4 <6 /HPF SQUAMOUS EPITHELIALS RARE /HPF DRUG SCREEN RAPID Collection Time: 02/02/21 6:40 PM Result Value Ref Range AMPHETAMINE (U) NEGATIVE NEGATIVE BARBITURATES SCREEN (U) NEGATIVE NEGATIVE BENZODIAZEPINES SCREEN (U) POSITIVE (A) NEGATIVE CANNABINOIDS SCREEN (U) POSITIVE (A) NEGATIVE COCAINE METABOLITES (U) NEGATIVE NEGATIVE METHADONE (U) NEGATIVE NEGATIVE OPIATE SCREEN (U) NEGATIVE NEGATIVE PHENCYCLIDINE PCP (U) NEGATIVE NEGATIVE CREATININE (U) 95.0 28 - 217 MG/DL Imagining & Other Studies Radiology Results (Last 30 days) 02/02/212029 MRI BRAIN WWO CON Final result Impression: IMPRESSION: 1. Unchanged atrophy and severe white matter abnormalities. 2. New right mastoid air cell opacification. Referred By: Interpreted By: Joseph Roland MD, 02/02/2021 8:41 PM 02/02/21 1533 XR CHEST PORTABLE Final result Impression: Impression: Right lower lobe opacity may represent atelectasis and/or pneumonia. Referred By: GE DAVONGustavo GONZALES Interpreted By: Ignacio Fernando Jr, MD, 02/02/2021 3:44 PM 02/02/[address] HEAD WO CON Final result Impression: IMPRESSION: ===== 1. No convincing acute intracranial abnormality. CT is insensitive for acute ischemia. If there is any continued clinical concern for acute infarct, MRI recommended. 2. Diffuse atrophy greater than expected for age. 3. Prominent leukoaraiosis stable from prior study and consistent with patient's history of multiple sclerosis provided on prior studies. Referred By: Interpreted By: Angelito Ross MD, 02/02/2021 2:20 PM No results found for this visit on 02/02/21. Assessment & Plan Length of stay (DAYS):1 Problem List Items Addressed This Visit None Suspected recurrent seizure: Acute encephalopathy Witnessed seizure activity via EMS and ER-required Ativan CT head WNL Continue home Vimpat MRI negative for acute ischemic changes EEG pending UDS benzodiazepine, cannabinoid positive Neurology consulted. Appreciate recs Supportive care Follow with neurology Asthma Stable Continue home inhalers Monitor History multiple sclerosis Schizophrenia Neurocognitive disorder Migraine Cannabis use Advanced care plan: VTE: SCDs CODE STATUS: Prior Surrogate decision-maker: Mother Other changes to meds to be made based on progress during hospitalization. All plans discussed with patient/patient's family/mud boss. They are agreeable with plan and voiced understanding. This note was dictated with [employer] medical dictation software; misspellings, punctuation errors, omitted words or dictation variances may occur. VALENTINO STAHL PA-C 02/03/2021 11:17 AM Primary care physician: VIPUL DINH Extended Emergency Contact Information Primary Emergency Contact: Serg Frost Relation: Mother Cosigned by Helen Grant DO at 02/03/2021 2:34 PM FLASH WELDING MACHINE OPERATOR H WELDING MACHINE OPERATOR H WELDING MACHINE OPERATOR * Dejon Zegn RN - 02/03/2021 10:43 AM CST NCM performed bedside interview with patient, Pt name, verified. Then patient would answer following questions with 81 or yes . So rest of interview done by phone with her mother/guardian (papers on file here), Serg Frost, . ? Home: alone in her apartment Ambulation: Reports independent prior to admission. DME products: none ADLs: Reports independent prior to admission. Drives: pt said yes , her mother says no, she doesn't Transport Home: mother/guardian Skin/Bladder/Bowel: No deficits reported. A/O: pt oriented to self and place, difficulty answering some questions appropriately. Home Health: none; patient does [facility] a geospatial analyst [facility], who assists with meds, appts, grocery shopping, software engineer web applications-unsure of how many hrs/wk Occupation: unemployed/disabled Address: Verified as per chart. [facility]acy: [facility] [place] [place] (pt said [address], [place] ) PCP: Lauren Page Insurance Plan: [employer]: Denies any concerns. Discharge needs: Care Coordination Team will provide discharge planning as needed, and will re-evaluate based on recommendations and treatment course. Lengthy discussion had with pts mother/guardian, Serg, re:she is concerned about patient returning to her apartment alone since at one time, last seizure was in 2019, then 30 days ago and now again yesterday, despite recent med change. She has expressed her concern to [facility] who has assigned asocial worker and feel pt still benefit to be in community. Serg says she has also checked into nursing homes (pt was in one once in 2018 for MS flare) and assisted living facility but no [facility] in [place] will accept resident under 60-this per mother/guardian. Discussed if she thinks pt would be able to use a medic alert button, if feeling a seizure coming on. Her mother says she is in denial about evenneeding to be in the hospital after her seizure yesterday, but may consider getting a medic alert kind of button for her. Serg, says Meredith blames her for all her medial issues and so they have relationship issues at times. CM will follow. 02/03/21 1033 Referral Data Referral Reason Discharge Planning Source of Information Patient;Mother (spoke with patient-who could verify name/birthdate but then kept repeating 81 or yes to questions;called her mother/guardian to finish interview) Patient Information Primary Caregiver Self (has a worker thru [employer] [facility] [employer] [place]-mother unsure of hours/week) Support System Immediate family;Community executive secretary social welfare;Other (Comment) (her mother says she has a boy friend and a couple friends she occasionally goes out with) Baseline ADL's Functional Status Independent;Other (Comment) (with some assist) Living Arrangements Alone Type of Residence Private residence Behavior Oriented;Cooperative Communication Talks;Understands speaking;Understands [place] (her words are clear but she had some difficulty answering questions appropriately, kept repeating 81 or yes after name and birthdate verified) Current Services Being Provided Other Services [employer] Refrigerating Engineer (has a worker thru [employer] [facility] [place]-assists with meds, getting to appts, going grocery shopping, software engineer web applications, etc-mother unsure how many hrs/week) Anticipated DC Plan Living Arrangements Alone Support Systems biostatistics manager/executive secretary social welfare;Friends/neighbors;Parent Type of Residence Private residence Patient expects to be discharged to: Home H WELDING MACHINE OPERATOR * Lissett Silva RN - 02/03/2021 1:13 AM CST Problem: Reduced risk for falls/injury Goal: Reduced Risk of Confusion (Acute vs Chronic) Outcome: Not Progressing Note: Patient is oriented to person and disoriented to place, situation, and time on this shift. Problem: Reduced risk for falls/injury Goal: Reduced Risk for Falls/Injury Outcome: Progressing Goal: Reduced Risk of Symptomatic Depression Outcome: Progressing Goal: Reduced Risk of Altered Elimination Outcome: Progressing Goal: Reduced Risk of Dizziness/Vertigo/Balance Outcome: Progressing Goal: Reduced Risk of Polypharmacy Outcome: Progressing Problem: Pain - Acute Goal: Achieve acceptable pain level Outcome: Progressing H WELDING MACHINE OPERATOR documented in this encounter H&P Notes * Yue Braswell MD - 02/02/2021 10:01 PM CST Patient Name: Meredith Frost Date of : 1980 Date of Admission: 02/02/2021 Date of Service: 02/02/2021 Admitting Physician: History of Present Illness: Chief Complaints: Seizure Re-evaluation Meredith Frost is a 40-year-old female who has a past medical history of Asthma, Cognitive and neurobehavioral dysfunction, Migraines, MS (multiple sclerosis) (CMS/HCC), Paranoid schizophrenia (CMS/HCC), and Seizures (CMS/HCC). When she presented to the emergency department at [facility] with recurrent seizure episodes today Patient is poor historian history mainly taken from ER records Patient has history of seizure on Vimpat , baseline mental function respond to commands oriented [id number] she started having recurrent episode of seizure activities, EMS called and patient was givingValium and Ativan and was sent to the emergency room In the ER patient had few episode of seizure activities described as complex and focal, head CT wasnegative for acute findings neurology consult called and patient was admitted for further evaluation and treatment Review of Systems: Full system review could not be obtained due to patient's mental function No signs of distress when I saw her came with recurrent seizure activities History: Past Medical History: Diagnosis Date ??? Asthma ??? Cognitive and neurobehavioral dysfunction ??? Migraines ??? MS (multiple sclerosis) (CMS/HCC) ??? Paranoid schizophrenia (CMS/HCC) ??? Seizures (CMS/HCC) History reviewed. No pertinent surgical history. Social History Tobacco Use ??? Smoking status: Never Smoker ??? Smokeless tobacco: Never Used Substance Use Topics ??? Alcohol use: Yes Comment: social Family History Problem Relation Name Age of Onset ??? Breast Cancer Maternal Aunt ? age Current Facility-Administered Medications Medication Dose Route Frequency Provider Last Rate Last Admin ??? albuterol sulfate HFA 108 (90 Base) MCG/ACT inhaler 2 puff 2 puff Inhalation Q4H PRN Yue Braswell MD ??? ARIPiprazole ER (ABILIFArelis MAINTENA) IM syringe 300 mg 300 mg Intramuscular Q28 Days Yue Braswell MD ??? baclofen (LIORESAL) tablet 10 mg 10 mg Oral BID Yue Braswell MD ??? erythromycin 2 % external solution Topical BID Yue Braswell MD ??? [START ON 02/03/2021] escitalopram (LEXAPRO) tablet 20 mg 20 mg Oral Daily Yue Braswell MD ??? fluticasone propionate (FLONASE) 50 MCG/ACT nasal spray 1 spray 1 spray Each Nostril BID PRN Yue Braswell MD ??? fluticasone-salmeterol (ADVAIR HFA) 230-21 MCG/ACT inhaler 2 puff 2 puff Inhalation 2 times daily Yue Braswell MD ??? ibuprofen (MOTRIN) tablet 800 mg 800 mg Oral BID PRN Yue Braswell MD ??? lacosamide (VIMPAT) tablet 100 mg 100 mg Oral BID Yue Braswell MD ??? zonisamide (ZONEGRAN) capsule 500 mg 500 mg Oral nightly Yue Braswell MD No Known Allergies Physical Exam: VITALS: Patient Vitals for the past 8 hrs: BP Temp Temp src Pulse Resp SpO2 Height Weight 02/02/21 2100 96/52 98.1 ??F (36.7 ??C) Oral 73 20 98 % -- -- 02/02/212041 -- -- -- -- -- -- 5' 5 (1.651 m) 67 kg (147 lb 11.2 oz) 02/02/21 1848 122/71 -- -- 79 18 99 % -- -- 02/02/21 1715 -- -- -- 72 19 -- -- -- 02/02/21 1630 118/76 -- -- -- -- -- -- -- 02/02/21 1615 -- -- -- 78 16 97 % -- -- 02/02/21 1512 -- -- -- -- 18 99 % -- -- Intake/Output Summary (Last 24 hours) at 02/02/2021 2201 Last data filed at 02/02/2021 1800 Gross per 24 hour Intake -- Output 350 ml Net -350 ml CARDIAC: Regular rate and rhythm. No murmurs, rubs, clicks, or gallops were heard. PULMONARY: Normal rise and fall of chest bilaterally equal: Clear to auscultation bilaterally. Lungsounds heard in all uhber. No wheezes, crackles, or rhonchi were heard. CHEST: Non-tender. No palpable masses. ABDOMEN: Soft. Non-tender. Normal bowel sounds. No palpable masses, hepatomegaly or splenomegaly. EXTREMITIES: No peripheral edema. Good pulses in all distal extremities. PSYCHIATRIC: Normal affect. No acute distress. NEUROLOGIC: Conscious, alert, confused with baseline oriented x1 and difficulty making words HEAD: Normocephalic. Without trauma. EARS: No discharge. Hearing intact to voice. NOSE: Nares open; no septal deviation is noted. THROAT: Normal mucosa, no discharge. EYES: Pupils are equal, round, reactive to light and accommodation. No icterus. SKIN: Warm. Dry. Normal color and texture. No rashes. Laboratory Findings: Results for orders placed or performed during the hospital encounter of 02/02/21 CBC W/DIFF AUTOMATED Result Value Ref Range WBC 10.7 4.5 - 11.0 x10'3/uL RBC 4.64 4.20 - 5.40 x10'6/uL HGB 10.4 (L) 12.0 - 16.0 G/DL HCT 35.6 (L) 38.0 - 48.0 % MCV 76.7 (L) 81.0 - 99.0 FL MCH 22.4 (L) 27.0 - 31.0 PG MCHC 29.2 (L) 32.0 - 36.0 G/DL RDW 18.4 (H) 11.5 - 14.5 % PLT 376 130 - 400 x10'3/uL MPV 9.5 9.3 - 12.2 FL DIFFERENTIAL TYPE AUTOMATED DIFFERENTIAL NEUTROPHILS 68.4 % LYMPHOCYTES 14.4 % MONOCYTES 9.4 % EOSINOPHILS 6.3 % BASOPHILS 0.8 % IMMATURE GRANS 0.7 % ABS. NEUTROPHILS TOTAL 7.30 1.80 - 7.70 x10'3/uL ABS. LYMPHOCYTES 1.53 1.00 - 4.80 x10'3/uL ABS. MONOCYTES 1.00 (H) 0.24 - 0.86 x10'3/uL ABS. EOSINOPHILS 0.67 (H) 0.04 - 0.36 x10'3/uL ABS. BASOPHILS 0.09 (H) 0.01 - 0.08 x10'3/uL ABS. IMMATURE GRANULOCYTES 0.07 0.00 - 0.49 x10'3/uL PROTIME/INR, VENOUS Result Value Ref Range Protime 11.4 10.2 - 12.9 SEC INR 1.0 PARTIAL THROMBOPLASTIN TIME,PTT Result Value Ref Range PTT 26.9 25.1 - 36.5 SEC URINALYSIS Result Value Ref Range Specimen Type URINE CLEAN CATCH COLOR (U) YELLOW TRANSPARENCY CLEAR Specific [place] (U) 1.020 1.001 - 1.030 U PH 7.0 5.0 - 9.0 LEUKOCYTE ESTERASE 250 (A) NEGATIVE NITRITES NEGATIVE NEGATIVE PROTEIN (U) NEGATIVE <30 MG/DL URINE GLUCOSE NORMAL NORMAL MG/DL U KETONES NEGATIVE NEGATIVE MG/DL UROBILINOGEN NORMAL NORMAL MG/DL BILIRUBIN (U) NEGATIVE NEGATIVE MG/DL BLOOD NEGATIVE NEGATIVE CULTURE & SENSITIVITY INDICATED? SPECIMEN SETUP FOR CULTURE MUCUS RARE /LPF WBC/HPF 6 (H) <6 /HPF RBC/HPF 4 <6 /HPF SQUAMOUS EPITHELIALS RARE /HPF ETHANOL Result Value Ref Range Alcohol <0.003 <0.003 G/DL ACETAMINOPHEN Result Value Ref Range Acetaminophen <2.0 (L) 10.0 - 30.0 MCG/ML DRUG SCREEN RAPID Result Value Ref Range AMPHETAMINE (U) NEGATIVE NEGATIVE BARBITURATES SCREEN (U) NEGATIVE NEGATIVE BENZODIAZEPINES SCREEN (U) POSITIVE (A) NEGATIVE CANNABINOIDS SCREEN (U) POSITIVE (A) NEGATIVE COCAINE METABOLITES (U) NEGATIVE NEGATIVE METHADONE (U) NEGATIVE NEGATIVE OPIATE SCREEN (U) NEGATIVE NEGATIVE PHENCYCLIDINE PCP (U) NEGATIVE NEGATIVE CREATININE (U) 95.0 28 - 217 MG/DL SALICYLATE Result Value Ref Range Salicylates 4.2 2.8 - 20.0 MG/DL COMPREHENSIVE METABOLIC PANEL Result Value Ref Range GLUCOSE 93 70 - 99 MG/DL BUN 19 (H) 7 - 18 MG/DL CREATININE S/P/B 0.73 0.55 - 1.02 MG/DL SODIUM 140 136 - 145 MMOL/L POTASSIUM 3.6 3.5 - 5.1 MMOL/L CHLORIDE S/P/B 111 (H) 100 - 108 MMOL/L CO2 23.6 21 - 32 MMOL/L CALCIUM 9.0 8.5 - 10.1 MG/DL BILIRUBIN TOTAL S/P/B 0.3 0.2 - 1.2 MG/DL TOTAL PROTEIN S/P/B 7.0 6.4 - 8.2 G/DL ALBUMIN S/P/B 3.5 3.4 - 5.0 G/DL AST 12 (L) 15 - 37 U/L ALT 27 14 - 55 U/L ALKALINE PHOSPHATASE S/P/B 72 50 - 136 U/L ANION GAP 5.4 5 - 15 MMOL/L BUN CREATININE RATIO 26.0 6 - 26 A/G RATIO 1.0 1.0 - 2.0 RATIO eGFR Non-Afr. Amer. >90 >90 ML/MIN/1.73 M2 eGFR Afr. Amer. >90 >90 ML/MIN/1.73 M2 MAGNESIUM Result Value Ref Range MAGNESIUM 2.5 (H) 1.8 - 2.4 MG/DL PHOSPHORUS, INORGANIC PHOSPHATE Result Value Ref Range PHOSPHORUS 2.8 2.5 - 4.9 MG/DL CHORIONIC GONADOTROPIN HCG QL Result Value Ref Range PREG SCREEN-SERUM NEGATIVE Assessment and Plan: 1. History of epilepsy came with recurrent seizure activities controlled now, head CT negative for acute findings, resume Vimpat, EEG . MRI follow with neurology and monitor clinically 2. History of asthma stable on nebulizer will resume GI/DVT prophylaxis Code status : Full code as default I spent 80 minutes providing patient care of Meredith Frost today. More than 50% of that time was spent in counseling the patient about, case was also discussed with ER Physician and floor nurse I anticipate the patient will require < 2 nights of hospitalization. CC: YARA DINH-YOGESH H WELDING MACHINE OPERATOR documented in this encounter Procedure Notes * Nidhi Quiroz MD - 02/03/2021 5:19 PM CSTAssociated Order(s): EEG Routine EEG Report Patient Name: Meredith Frost [facility] Medical Record Number (MRN): [id number] Date of (): 1980 EEG Date: 02/02/2021 Ordering Provider: Valentino Stahl PA-C CC: VIPUL DINH Start Time: 2:59 PM Duration: 20:05 Introduction: Meredith Frost is a 40-year-old female with a history of multiple sclerosis on Ocrevus, seizures on Zonegran and Vimpat, schizophrenia migraines who presents with recurrent seizures and altered mental status. EEGwas performed to evaluate for seizures. This is a 21 channel EEG recording acquired on a [employer] acquisition system. Scalp electrodes were placed according to the international 10-20 System. The analog EEG was filtered from 1-70 Hz and digitally sampled at 100 Hz. The record was then reformatted for review in bipolar and referential montages. EEG Description: The awake background included a 9 Hz posterior rhythm that was better formed over the right hemisphere, which attenuated with eye opening and activity. There was admixed delta and theta activity overthe left hemisphere that was most pronounced over the left temporal region. There were intermittentbursts of rhythmic, high amplitude frontocentral delta activity in the awake background. During drowsiness, identified by ocular signs and alpha attenuation, there was intermittent, diffuse, asynchronous theta activity admixed with 2-4 Hz polymorphic frontotemporal delta activity. Hyperventilation elicited no abnormalities. Photic strobe stimulation elicited no abnormalities. There were intermittent left frontotemporal sharp waves. Single ECG channel showed regular cardiac rhythm. Interpretation: This is an abnormal EEG due to 1) left frontotemporal epileptiform discharges, 2) left hemispheric slowing maximal around the left temporal region, and 3) mild to moderate generalized slowing. Focal epileptiform discharges are typically seen in patients with a history of focal seizures. Focal slowing indicates focal cerebral dysfunction. A structural or physiological abnormality should be considered. Generalized slowing indicates diffuse cerebral dysfunction as seen in metabolic, toxic, or diffuse or multifocal structural abnormalities. No seizures were captured during this recording. Nidhi Quiroz MD H WELDING MACHINE OPERATOR H WELDING MACHINE OPERATOR H WELDING MACHINE OPERATOR documented in this encounter Consult Notes * Nidhi Quiroz MD - 02/03/2021 1:24 PM CSTAssociated Order(s): IP CONSULT TO NEUROLOGY Neurology Initial Consult Note Name: Meredith Frost Date of : 1980 Date: 02/03/2021 Chief Complaint: Altered mental status History of Present Illness: Meredith Frost is a 40-year-old female with a past medical history significant for multiple sclerosis on Ocrevus, seizures on Zonegran and Lamictal, schizophrenia migraines who presents with recurrent seizures and altered mental status. Due to the patient's mental status majority of the history was obtained via chart review. She presented to the ER on 02/02/2021 with recurrent seizure episodes. Her mother presented with her to the ER and reported that she is having seizure activity that started 1 hour prior to arrival. EMS gave her Valium which is made him more tired. Her mother reported that she was moving the right side of her face with a seizure and had a couple of them that day. This was not preceded by any infectious symptoms such as fevers, chills. While in the ER she had a CMP, mag, phosphorus, CBC, UDS that was notable for cannabinoids and benzos. Head CT did not show any acute abnormalities. She was subsequently mated to the hospitalist service. On my evaluation today she is not able to provide any significant history. From review of her [facility] from [facility] she is a longstanding history of multiple sclerosis. She is currently on Ocrevus with her last infusion in November 2020. And her most recent visit in December 2020 her exam is noted as her having full orientation with no language deficits, motor deficits or sensory deficits. She was noted to have a slightly wide-based gait and difficulty with tandem. She has had a clinic visit with Dr. Vazquez for seizures in 2019. She was described of having a seizure semiology as generalized tonic-clonic seizures that are typically preceded by an aura of lightheadedness. Prior EEG performed at [facility] was read as normal. she has a long Current Facility-Administered Medications Medication Dose Route Frequency Provider Last Rate Last Admin ??? albuterol sulfate HFA 108 (90 Base) MCG/ACT inhaler 2 puff 2 puff Inhalation Q4H PRN Yue Braswell MD ??? baclofen (LIORESAL) tablet 10 mg 10 mg Oral BID Yue Braswell MD 10 mg at 02/03/21 0943 ??? enoxaparin (LOVENOX) 40 MG/0.4ML syringe 40 mg 40 mg Subcutaneous Nightly (enoxaparin) Yue Braswell MD ??? escitalopram (LEXAPRO) tablet 20 mg 20 mg Oral Daily Yue Braswell MD 20 mg at 02/03/21 0943 ??? fluticasone propionate (FLONASE) 50 MCG/ACT nasal spray 1 spray 1 spray Each Nostril BID PRN Yue Braswell MD ??? fluticasone-salmeterol (ADVAIR HFA) 230-21 MCG/ACT inhaler 2 puff 2 puff Inhalation 2 times daily Yue Braswell MD 2 puff at 02/03/21 0835 ??? ibuprofen (MOTRIN) tablet 800 mg 800 mg Oral BID PRN Yue Braswell MD ??? lacosamide (VIMPAT) tablet 100 mg 100 mg Oral BID Yue Braswell MD 100 mg at 02/03/21 0944 ??? zonisamide (ZONEGRAN) capsule 500 mg 500 mg Oral nightly Yue Braswell MD 500 mg at 02/02/21 2227 Past Medical History: Diagnosis Date ??? Asthma ??? Cognitive and neurobehavioral dysfunction ??? Migraines ??? MS (multiple sclerosis) (CMS/HCC) ??? Paranoid schizophrenia (CMS/HCC) ??? Seizures (CMS/HCC) History reviewed. No pertinent surgical history. Family History Problem Relation Name Age of Onset ??? Breast Cancer Maternal Aunt ? age Social History Tobacco Use ??? Smoking status: Never Smoker ??? Smokeless tobacco: Never Used Substance Use Topics ??? Alcohol use: Yes Comment: social ??? Drug use: Yes Types: Marijuana Review of Systems Unable to perform ROS: Mental status change Filed Vitals: 02/02/21 2100 02/03/21 0548 02/03/21 0836 02/03/21 1134 BP: 96/52 111/70 100/58 Pulse: 73 97 88 Resp: 20 18 16 Temp: 98.1 ??F (36.7 ??C) 98 ??F (36.7 ??C) 98.6 ??F (37 ??C) TempSrc: Oral Oral Oral SpO2: 98% 100% 96% 99% Weight: 66.5 kg (146 lb 9.6 oz) Height: GENERAL EXAMINATION Patient is in no apparent distress, cooperates with examination. HEAD: normocephalic, atraumatic EYES: normal. EARS, NOSE AND THROAT: normal, no lesions or exudates. NECK: supple CHEST: breathing comfortably CARDIOVASCULAR: regular rate and rhythm, no murmurs GI: non distended EXTREMITIES: no clubbing, edema or cyanosis. MUSCULOSKELETAL: no contractures NEUROLOGY EXAMINATION MENTAL STATUS: Patient was alert, awake and oriented to person. She is perseverative and intermittently follows one-step commands but will also perseverate on those as well. CRANIAL NERVES: II: Visual huber were full. Pupils were equal, round and reactive to light and accommodation. III, IV, : normal extraocular movements, no nystagmus. No eyelid ptosis. V: Normal jaw closure and opening. Facial sensation was intact in V1-3 VII: face was symmetric. Eye closure and lip closure were normal. VIII: hearing was normal. IX-X: palate elevates at midline. XI: normal symmetric shoulder shrug. Normal 5/5 sternocleidomastoid strength. XII: tongue was midline and strong. No fasciculations. MOTOR: Normal strength 5/5 on MRC scale in the upper and lower extremities. SENSATION: Moves all 4 extremities to light touch REFLEXES: Not tested COORDINATION: Unable to assess GAIT: Not tested Imaging and Pertinent Labs: Results for orders placed during the hospital encounter of 02/02/21 MRI BRAIN WWO CON Narrative Exam: MRI brain without and with contrast. Comparison 04/15/2019. Correlating head CT from earlier today. INDICATION: Seizure with a history of seizures and MS. TECHNIQUE: Precontrast and postcontrast imaging with 13 cc intravenous Dotarem left antecubital fossa. FINDINGS: Diffuse volume loss is abnormal for age and is unchanged. Some mild compensatory enlargement of the lateral ventricles is unchanged. No extra-axial fluid collection or mass effect. Normal flow voids in the basilar and internal carotid arteries. Normal orbits. Multiple opacified right mastoid air cells. New findings which could represent inflammation or infection. No acute stroke. No findings for hemorrhage on the gradient images. Diffuse periventricular white matter hyperintensity on FLAIR and T2. This is asymmetric posteriorly. No change. More superiorly, focal and diffuse confluent white matter hyperintensity of the central and peripheral white matter. Nosubstantial change. Small and symmetric focal area of low T1 and high T2 signal within the posterior aspect of each basal ganglia. No change. Normal postcontrast imaging. IMPRESSION: 1. Unchanged atrophy and severe white matter abnormalities. 2. New right mastoid air cell opacification. Referred By: Interpreted By: Joseph Roland MD, 02/02/2021 8:41 PM Impression: Meredith Frost is a 40-year-old female with a past medical history significant for multiple sclerosis on Ocrevus, seizures on Zonegran and Lamictal, schizophrenia migraines who presents with recurrent seizures and altered mental status. History is limited however she has a prior established history of epilepsy. At the moment, she continues to remain altered and is perseverative. Her presentation is most concerning for potential prolonged postictal encephalopathy, however, with her degree of perseveration and fluctuations in mentalstatus this presentation might represent nonconvulsive status. She is pending EEG. We will make further determinations about acute treatment based on EEG. If she does not have any significant improvement clinically after more aggressive treatment if her EEG shows nonconvulsive status she may need to be transferred for continuous video EEG monitoring to guide treatment. No clear provoking factor has been identified aside from her recently using cannabinoids. Also unclear her degree of compliance Plan: #Breakthrough seizures -Continue Vimpat 100 mg twice daily -Continue zonisamide 500 mg nightly -Pending routine EEG -For nonconvulsive status will likely give a load of Vimpat 200 mg once, Ativan 3 mg, and increase Vimpat to 200 mg twice a day and continue zonisamide. -If no clinical improvement by the morning we will administer a load of Keppra 2 g IV along with Ativan 3 mg and repeat another EEG tomorrow afternoon -If repeat EEG tomorrow shows continued signs of seizure or she clinically has not improved then she will likely need to be transferred for continuous video EEG monitoring Neurology will continue to follow please document with any questions. Time spent: 60 total minutes reviewing records, history that was separately obtained, performing the exam, providing education to the patient/caregiver, ordering medicine and documenting in the medical record. Nidhi Quiroz MD H WELDING MACHINE OPERATOR documented in this encounter Nursing Notes * Lissett Silva RN - 02/02/2021 9:19 PM CST This RN just spoke to the patient's mother Serg. When discussing patient's orientation level, her mother states, She normally does struggle on her words and has a hard time getting words out. I knowtoday though she is very hard to understand and you can't make out what she is saying sometimes. She is trying though. She has her phone and has been using it. I know I will stop by tomorrow and try to see if I can be there when the doctor is there . Patient's mother was informed of visiting hours.All questions were answered at this time. Her phone number is [phone]. H WELDING MACHINE OPERATOR documented in this encounter ED Notes * Tenzin Beasley RN - 02/02/2021 8:11 PM CST Called mother to update on bed assignment and that patient is in MRI now H WELDING MACHINE OPERATOR * Daniela Carcamo RN - 02/02/2021 3:50 PM CST Patient evaluated by neuro. H WELDING MACHINE OPERATOR * Julius Woods MD,PHD - 02/02/2021 3:42 PM CST Signed out to me pending workup. I reviewed the patient's labs, which are significant for a drug screen showing cannabis and benzos that are otherwise unremarkable. I reviewed the radiologist interpretation of the patient's CT of the brain, which shows diffuse atrophy, and other changes consistent with the patient's history of multiple sclerosis. I spoke with tele-neurology, who recommended no additional antiepileptics at this time. They recommended, admission to the hospital with inpatient neurology consultation, an EEG and an MRI of the brain with and without contrast. CLINICAL IMPRESSION Status epilepticus DISPOSITION Admission to hospitalist for further evaluation and treatment. Julius Woods MD,PHD 02/03/211936 H WELDING MACHINE OPERATOR * Ge Gonzales MD - 02/02/2021 1:56 PM CST Chief Complaint Chief Complaint Patient presents with ??? Seizure Re-evaluation History of Present Illness 40-year-old female with history of multiple sclerosis and MS presenting with seizure activity today. Mother states that she has been having seizure activity that started 1 hour prior to arrival and was given Valium by EMS and mother states that she just seemed to become more tired with that. She states that she has been moving the right side of her face with the seizures and that she had a few ofthem today. She does see a neurologist for the MS. She has not had any medication changes recently.They are denying any fevers or chills. Medical History ALLERGIES: No Known Allergies MEDICATIONS: Prior to Admission medications Medication Sig Start Date End Date Taking? Authorizing Provider baclofen 10 MG tablet Take 10 mg by mouth 2 (two) times daily. 04/06/19 Yes Doc Abstract ABILIFY MAINTENA 300 MG Prefilled Syringe IM SYRINGE Inject 300 mg into the muscle every 28 days. 04/14/19 Doc Abstract albuterol sulfate HFA 108 (90 Base) MCG/ACT inhaler Inhale 2 puffs into the lungs every 4 (four) hours as needed for Shortness of breath. 03/31/19 Doc Abstract akapyxicdc-ahswsbdocpahe-wzdbpvhe 50-325-40 MG tablet Take 1 tablet by mouth every 4 (four) hours as needed. 01/14/18 Doc Abstract erythromycin 2 % external solution Apply topically 2 (two) times daily. 11/07/18 Doc Abstract escitalopram 20 MG tablet Take 20 mg by mouth daily. 03/28/19 Doc Abstract fluticasone propionate 50 MCG/ACT nasal spray 1 spray by Each Nostril route 2 (two) times daily as needed for Allergies. 03/29/19 Doc Abstract hydrOXYzine 25 MG tablet Take 25 mg by mouth 2 (two) times daily as needed for Anxiety. Doc Abstract ibuprofen 800 MG tablet Take 800 mg by mouth 2 (two) times daily as needed for Pain. 04/06/19 Doc Abstract ocrelizumab 300 MG/10ML injection Inject 600 mg into the vein every 6 (six) months. Doc Abstract onabotulinumtoxinA 100 units injection Inject 200 Units into the muscle every 3 (three) months. 07/22/18 Doc Abstract SUMAtriptan 50 MG tablet Take 50 mg by mouth 2 (two) times daily as needed for Migraine. Doc Abstract SYMBICORT 160-4.5 MCG/ACT inhaler Inhale 1 puff into the lungs 2 (two) times daily. 04/06/19 Doc Abstract tretinoin 0.01 % gel Apply topically nightly at bedtime. Pea sized amount to entire face at night. 11/14/18 Doc Abstract VIMPAT 100 MG Tab Take 100 mg by mouth 2 (two) times daily. 01/06/21 Doc Abstract zonisamide 100 MG capsule Take 500 mg by mouth daily. 04/06/19 Doc Abstract PAST MEDICAL HISTORY: Past Medical History: Diagnosis Date ??? Asthma ??? Cognitive and neurobehavioral dysfunction ??? Migraines ??? MS (multiple sclerosis) (CMS/HCC) ??? Paranoid schizophrenia (CMS/HCC) ??? Seizures (CMS/HCC) PAST SURGICAL HISTORY: History reviewed. No pertinent surgical history. FAMILY HISTORY: Family History Problem Relation Name Age of Onset ??? Breast Cancer Maternal Aunt ? age SOCIAL HISTORY: Social History Tobacco Use ??? Smoking status: Never Smoker ??? Smokeless tobacco: Never Used Substance Use Topics ??? Alcohol use: Yes Comment: social ??? Drug use: Yes Types: Marijuana Review of Systems Review of Systems Unable to perform ROS: Mental status change due to seizure Physical Exam Filed Vitals: 02/02/21 1226 02/02/21 1300 BP: 130/78 (!) 141/97 Pulse: 84 94 Resp: 18 20 Temp: 97.6 ??F (36.4 ??C) TempSrc: Oral SpO2: 99% 98% Weight: 67.3 kg (148 lb 5.9 oz) Physical Exam Constitutional: Comments: somnolent HENT: Head: Normocephalic and atraumatic. Right Ear: Tympanic membrane normal. Left Ear: Tympanic membrane normal. Eyes: Pupils: Pupils are equal, round, and reactive to light. Comments: Bilateral nystagmus Cardiovascular: Rate and Rhythm: Normal rate and regular rhythm. Pulses: Normal pulses. Heart sounds: Normal heart sounds. Pulmonary: Effort: Pulmonary effort is normal. Breath sounds: Normal breath sounds. Abdominal: Palpations: Abdomen is soft. Tenderness: There is no abdominal tenderness. Musculoskeletal: Cervical back: Normal range of motion and neck supple. Skin: General: Skin is warm and dry. Capillary Refill: Capillary refill takes 2 to 3 seconds. Neurological: Mental Status: She is disoriented. Comments: Patient was noted to be drooling from the right side of her mouth with tongue fasciculations and right-sided jaw movements with purposeful movements on the left. She also did have fluttering of her eyes. This resolved after about 5 minutes and the patient has been somnolent since that time. Diagnostic Studies / Procedures ELECTROCARDIOGRAMS: No results found for this visit on 02/02/21. LABORATORY STUDIES: Results for orders placed or performed during the hospital encounter of 02/02/21 CBC W/DIFF AUTOMATED Result Value Ref Range WBC 10.7 4.5 - 11.0 x10'3/uL RBC 4.64 4.20 - 5.40 x10'6/uL HGB 10.4 (L) 12.0 - 16.0 G/DL HCT 35.6 (L) 38.0 - 48.0 % MCV 76.7 (L) 81.0 - 99.0 FL MCH 22.4 (L) 27.0 - 31.0 PG MCHC 29.2 (L) 32.0 - 36.0 G/DL RDW 18.4 (H) 11.5 - 14.5 % PLT 376 130 - 400 x10'3/uL MPV 9.5 9.3 - 12.2 FL DIFFERENTIAL TYPE AUTOMATED DIFFERENTIAL NEUTROPHILS 68.4 % LYMPHOCYTES 14.4 % MONOCYTES 9.4 % EOSINOPHILS 6.3 % BASOPHILS 0.8 % IMMATURE GRANS 0.7 % ABS. NEUTROPHILS TOTAL 7.30 1.80 - 7.70 x10'3/uL ABS. LYMPHOCYTES 1.53 1.00 - 4.80 x10'3/uL ABS. MONOCYTES 1.00 (H) 0.24 - 0.86 x10'3/uL ABS. EOSINOPHILS 0.67 (H) 0.04 - 0.36 x10'3/uL ABS. BASOPHILS 0.09 (H) 0.01 - 0.08 x10'3/uL ABS. IMMATURE GRANULOCYTES 0.07 0.00 - 0.49 x10'3/uL PROTIME/INR, VENOUS Result Value Ref Range Protime 11.4 10.2 - 12.9 SEC INR 1.0 PARTIAL THROMBOPLASTIN TIME,PTT Result Value Ref Range PTT 26.9 25.1 - 36.5 SEC ETHANOL Result Value Ref Range Alcohol <0.003 <0.003 G/DL ACETAMINOPHEN Result Value Ref Range Acetaminophen <2.0 (L) 10.0 - 30.0 MCG/ML IMAGING STUDIES CT HEAD WO CON Final Result by User, [id number] (02/02 1434) EXAMINATION: CT of the head EXAM DATE/TIME: 02/02/2021 2:11 PM REASON FOR EXAM: Seizure, nontraumatic (Age 18-40y) Slurred speech, drooping face, lip smacking. Prior seizure with postictal appearance currently. COMPARISON: 04/15/[address] TECHNIQUE: Axial CT images of the brain are obtained from skull base through vertex without the use of IV contrast agent. A dose lowering technique was used for this procedure, which may include, but is not limited to, dose reduction technique, automated exposure control, iterative reconstruction, ALARA (As Low As Reasonably Achievable), or Image Gently techniques. FINDINGS: No acute hemorrhage or large territory infarct. Ventricles are significantly enlarged with prominent bilateral sulci indicated extensive diffuse symmetric parenchymal volume loss. There are scattered areas of hypodensities in the periventricular deep white matter which are nonspecific but likely secondary to moderate small vessel ischemic disease. There are no extra-axial fluid collections. There is no mass, mass effect, or midline shift. There is no depressed skull fracture. Visualized paranasal sinuses and mastoid air cells are clear. Visualized orbital contents are unremarkable. ===== IMPRESSION: ===== 1. No convincing acute intracranial abnormality. CT is insensitive for acute ischemia. If there is any continued clinical concern for acute infarct, MRI recommended. 2. Diffuse atrophy greater than expected for age. 3. Prominent leukoaraiosis stable from prior study and consistent with patient's history of multiple sclerosis provided on prior studies. Referred By: Interpreted By: Angelito Ross MD, 02/02/2021 2:20 PM XR CHEST PORTABLE (Results Pending) MRI BRAIN WWO CON (Results Pending) ED Course / Medical Decision Making MDM Number of Diagnoses or Management Options Diagnosis management comments: 40-year-old female with history of MS and seizures presenting with seizure activity. Pending laboratory studies and CT of the brain. She did have a seizure lasting about 5 minutes here in the emergency department and was administered Ativan with seizure resolving and postictal period present. She has been in seizure precautions. Pending laboratory studies and imaging, patient care will be turned over to Dr. Woods at shift change Amount and/or Complexity of Data Reviewed Clinical lab tests: reviewed Clinical Impression None Disposition: Data Unavailable Ge Gonzales MD 02/02/21 1451 H WELDING MACHINE OPERATOR * Daniela Carcamo RN - 02/02/2021 12:29 PM CST Patient arrived via EMS post ictal. Reported to be in the car with her rn case mgr when she began having slurred speech, drooping, and lip smacking. Upon EMS arrival she began to have what appeared to be a grand mal seizure, 5 mg Valium given and seizure activity stopped. Known history of seizures.Patient now is orientated to person only and drowsy but easy to arouse. Glucose en route was 115, VS stable, no O2 needs. H WELDING MACHINE OPERATOR H WELDING MACHINE OPERATOR * Jaqui Moe RN - 02/02/2021 12:25 PM CST Bed: 05 Expected date: Expected time: Means of arrival: Comments: [facility]- room 5 H WELDING MACHINE OPERATOR documented in this encounter Plan of Treatment Not on file documented as of this encounter Goals Goal Patient Goal Type Associated Problems Recent Progress Patient-Stated? Author Family - family caregiver with be involved in care transitions and discharge planning General No Dejon Bravo RN documented as of this encounter Procedures Procedure Name Priority Date/Time Associated Diagnosis Comments EEG ROUTINE Routine 02/03/2021 5:19 PM FLASH WELDING MACHINE OPERATOR MRI BRAIN WWO CON STAT 02/02/2021 8:3 0 PM FLASH WELDING MACHINE OPERATOR DRUG SCREEN RAPID STAT 02/02/2021 6:4 0 PM FLASH WELDING MACHINE OPERATOR HC URINALYSIS AUTO W/O MICRO STAT 02/02/2021 6:40 PM FLASH WELDING MACHINE OPERATOR TSH W/REFLEX Routine 02/02/2021 6:00 PM FLASH WELDING MACHINE OPERATOR COMPREHENSIVE METABOLIC PANEL STAT 02/02/2021 6:00 PM FLASH WELDING MACHINE OPERATOR CHORIONIC GONADOTROPIN HCG QL STAT 02/02/2021 6:00 PM FLASH WELDING MACHINE OPERATOR PHOSPHORUS, INORGANIC PHOSPHATE STAT 02/02/2021 6:00 PM FLASH WELDING MACHINE OPERATOR MAGNESIUM STAT 02/02/2021 6:00 PM FLASH WELDING MACHINE OPERATOR SALICYLATE STAT 02/02/2021 5:02 PM FLASH WELDING MACHINE OPERATOR URINE BACTERIA CULTURE Routine 4:55 PM FLASH WELDING MACHINE OPERATOR XR CHEST PORTABLE STAT 02/02/2021 3:3 3 PM FLASH WELDING MACHINE OPERATOR CT HEAD WO CON STAT 02/02/2021 2:17 PM FLASH WELDING MACHINE OPERATOR PARTIAL THROMBOPLASTIN TIME,PTT STAT 02/02/2021 1:24 PM FLASH WELDING MACHINE OPERATOR PROTHROMBIN TIME, VENOUS STAT 02/02/2021 1:24 PM FLASH WELDING MACHINE OPERATOR CBC W/DIFF AUTOMATED STAT 02/02/2021 1:24 PM FLASH WELDING MACHINE OPERATOR ETHANOL STAT 02/02/2021 1:24 PM FLASH WELDING MACHINE OPERATOR ACETAMINOPHEN STAT 02/02/2021 1:24 PM FLASH WELDING MACHINE OPERATOR documented in this encounter Results * EEG (02/03/2021 5:19 PM FLASH WELDING MACHINE OPERATOR) Narrative [facility] - 02/03/2021 5:19 PM FLASH WELDING MACHINE OPERATOR Nidhi Quiroz MD ? 02/05/2021 ??1:35 PM Routine EEG Report Patient Name: Meredith Frost [facility] Medical Record Number (MRN): [id number] Date of (): 1980 EEG Date: 02/02/2021 Ordering Provider: Valentino Stahl PA-C CC: VIPUL DINH Start Time: 2:59 PM ? Duration: 20:05 Introduction: Meredith Frost is a 40-year-old female with a history of multiple sclerosis on Ocrevus, seizures on Zonegran and Vimpat, schizophrenia migraines who presents with recurrent seizures and altered mental status. EEG was performed to evaluate for seizures. This is a 21 channel EEG recording acquired on a [employer] acquisition system. Scalp electrodes were placed according to the international 10-20 System. The analog EEG was filtered from 1-70 Hz and digitally sampled at 100 Hz. The record was then reformatted for review in bipolar and referential montages. EEG Description: The awake background included a 9 Hz posterior rhythm that was better formed over the right hemisphere, which attenuated with eye opening and activity. There was admixed delta and theta activity over the left hemisphere that was most pronounced over the left temporal region. There were intermittent bursts of rhythmic, high amplitude frontocentral delta activity in the awake background. During drowsiness, identified by ocular signs and alpha attenuation, there was intermittent, diffuse, asynchronous theta activity admixed with 2-4 Hz polymorphic frontotemporal delta activity. Hyperventilation elicited no abnormalities. Photic strobe stimulation elicited no abnormalities. There were intermittent left frontotemporal sharp waves. Single ECG channel showed regular cardiac rhythm. Interpretation: This is an abnormal EEG due to 1) left frontotemporal epileptiform discharges, 2) left hemispheric slowing maximal around the left temporal region, and 3) mild to moderate generalized slowing. Focal epileptiform discharges are typically seen in patients with a history of focal seizures. Focal slowing indicates focal cerebral dysfunction. A structural or physiological abnormality should be considered. Generalized slowing indicates diffuse cerebral dysfunction as seen in metabolic, toxic, or diffuse or multifocal structural abnormalities. No seizures were captured during this recording. Nidhi Quiroz MD us Julius Woods MD,PHD NEUROLOGY ORDERABLES Edite d Result - Final [facility] [address] [place] [address], * MRI BRAIN WWO CON (02/02/2021 8:30 PM FLASH WELDING MACHINE OPERATOR) Anatomical Region Laterality Modality Head Magnetic Resonan ce 02/02/2021 8:41 PM FLASH WELDING MACHINE OPERATOR Impressions 02/02/2021 8:52 PM FLASH WELDING MACHINE OPERATOR IMPRESSION: 1. ??Unchanged atrophy and severe white matter abnormalities. 2. ??New right mastoid air cell opacification. Referred By: ?? Interpreted By: Joseph Roland MD, 02/02/2021 8:41 PM Narrative 02/02/2021 8:52 PM FLASH WELDING MACHINE OPERATOR Exam: MRI brain without and with contrast. Comparison 04/15/2019. ??Correlating head CT from earlier today. INDICATION: Seizure with a history of seizures and MS. TECHNIQUE: Precontrast and postcontrast imaging with 13 cc intravenous Dotarem left antecubital fossa. FINDINGS: Diffuse volume loss is abnormal for age and is unchanged. ??Some mild compensatory enlargement of the lateral ventricles is unchanged. ??No extra- axial fluid collection or mass effect. ??Normal flow voids in the basilar and internal carotid arteries. ??Normal orbits. ??Multiple opacified right mastoid air cells. ??New findings which could represent inflammation or infection. No acute stroke. ??No findings for hemorrhage on the gradient images. ??Diffuse periventricular white matter hyperintensity on FLAIR and T2. ??This is asymmetric posteriorly. ??No change. ??More superiorly, focal and diffuse confluent white matter hyperintensity of the central and peripheral white matter. ??No substantial change. ??Small and symmetric focal area of low T1 and high T2 signal within the posterior aspect of each basal ganglia. ??No change. Normal postcontrast imaging. Procedure Note Joseph Roland MD - 02/02/2021 Exam: MRI brain without and with contrast. Comparison 04/15/2019. Correlating head CT from earlier today. INDICATION: Seizure with a history of seizures and MS. TECHNIQUE: Precontrast and postcontrast imaging with 13 cc intravenousDotarem left antecubital fossa. FINDINGS: Diffuse volume loss is abnormal for age and is unchanged. Somemild compensatory enlargement of the lateral ventricles is unchanged. Noextra-axial fluid collection or mass effect. Normal flow voids in thebasilar and internal carotid arteries. Normal orbits. Multiple opacifiedright mastoid air cells. New findings which could represent inflammationor infection. No acute stroke. No findings for hemorrhage on the gradient images.Diffuse periventricular white matter hyperintensity on FLAIR and T2. Thisis asymmetric posteriorly. No change. More superiorly, focal and diffuseconfluent white matter hyperintensity of the central and peripheral whitematter. No substantial change. Small and symmetric focal area of low T1and high T2 signal within the posterior aspect of each basal ganglia. Nochange. Normal postcontrast imaging. IMPRESSION: 1. Unchanged atrophy and severe white matter abnormalities. 2. New right mastoid air cell opacification. Referred By: Interpreted By: Joseph Roland MD, 02/02/2021 8:41 PM us Julius Woods MD,PHD MRI Final Resu lt * (ABNORMAL) DRUG SCREEN RAPID (02/02/2021 6:40 PM FLASH WELDING MACHINE OPERATOR) AMPHETAMINE (U) NEGATIVE NEGATIVE 7:13 PM [facility] BARBITURATES SCREEN (U) NEGATIVE NEGATIVE 02/02/2021 7:13 PM [facility] BENZODIAZEPINES SCREEN (U) POSITIVE(A) NEGATIVE 02/02/2021 7:13 PM [facility] CANNABINOIDS SCREEN (U) POSITIVE(A) NEGATIVE 02/02/2021 7:13 PM [facility] COCAINE METABOLITES (U) NEGATIVE NEGATIVE 02/02/2021 7:13 PM [facility] METHADONE (U) NEGATIVE NEGATIVE 02/02/2021 7:13 PM [facility] OPIATE SCREEN (U) NEGATIVE NEGATIVE 021 7:13 PM [facility] PHENCYCLIDINE PCP (U) NEGATIVE NEGATIVE 02/02/2021 7:13 PM [facility] Comment: NOTE: RESULTS OF THIS DRUG SCREEN SHOULD BE USED FOR MEDICAL PURPOSES ONLY AND NOT FOR LEGAL OR EMPLOYMENT PURPOSES. POSITIVE RESULTS ARE NOT CONFIRMED. MEDICATIONS CONTAINING EPHEDRINE MAY CAUSE FALSE POSITIVE AMPHETAMINE CALL [phone], LAB, TO REQUEST CONFIRMATION TESTING. IF CREATININE IS <40 mg/dL. ??RECOLLECTION IS SUGGESTED. AMPHETAMINE- ?500 NG/ML BARBITURATE- ?200 NG/ML BENZODIAZEPINES- ??200 NG/ML THC- ? 50 NG/ML COCAINE- ?150 NG/ML METHADONE- ?300 NG/ML OPIATE- ? 300 MG/ML PCP- ? 25 NG/ML CREATININE (U) 95.0 28 - 217 MG/DL 02/02/2021 7:13 PM [facility] URINE SPECIMEN / Unknown 02/02/2021 6:40 PM FLASH WELDING MACHINE OPERATOR us Ge Gonzales MD URINE ORDERABLES Final Res ult [facility] [address] [place] [address], [place] [phone] * (ABNORMAL) URINALYSIS (02/02/2021 6:40 PM FLASH WELDING MACHINE OPERATOR) SPECIMEN TYPE URINE CLEAN CATCH 02/02/2021 6:41 PM FLASH WELDING MACHINE OPERATOR [facility] COLOR (U) YELLOW 02/02/2021 7:34 PM FLASH WELDING MACHINE OPERATOR [facility] TRANSPARENCY CLEAR 02/02/2021 7:34 PM FLASH WELDING MACHINE OPERATOR [facility] SPECIFIC GRAVITY (U) 1.020 1.001 - 1.030 02/02/2021 7:34 PM FLASH WELDING MACHINE OPERATOR [facility] U PH 7.0 5.0 - 9.0 02/02/2021 7:34 PM FLASH WELDING MACHINE OPERATOR [facility] LEUKOCYTES (U) 250(A) NEGATIVE 02/02/2021 7:34 PM FLASH WELDING MACHINE OPERATOR [facility] NITRITES NEGATIVE NEGATIVE 02/02/2021 7:34 PM FLASH WELDING MACHINE OPERATOR [facility] PROTEIN (U) NEGATIVE <30 MG/DL 02/02/2021 7:34 PM FLASH WELDING MACHINE OPERATOR [facility] URINE GLUCOSE NORMAL NORMAL MG/DL 02/02/2021 7:34 PM FLASH WELDING MACHINE OPERATOR [facility] KETONES MG/DL (U) NEGATIVE NEGATIVE MG/DL 02/02/2021 7:34 PM FLASH WELDING MACHINE OPERATOR [facility] UROBILINOGEN NORMAL NORMAL MG/DL 02/02/2021 7:34 PM [facility] BILIRUBIN (U) NEGATIVE NEGATIVE MG/DL 02/02/2021 7:34 PM FLASH WELDING MACHINE OPERATOR [facility] BLOOD (U) NEGATIVE NEGATIVE 02/02/2021 7:34 PM FLASH WELDING MACHINE OPERATOR [facility] CULTURE & SENSITIVITY INDICATED? SPECIMEN SETUP FOR CULTURE 02/02/2021 7:34 PM FLASH WELDING MACHINE OPERATOR [facility] MUCUS RARE /LPF 02/02/2021 7:34 PM FLASH WELDING MACHINE OPERATOR [facility] WBC/HPF 6(H) <6 /HPF 02/02/2021 7:34 PM FLASH WELDING MACHINE OPERATOR [facility] RBC/HPF 4 <6 /HPF 02/02/2021 7:34 PM FLASH WELDING MACHINE OPERATOR [facility] SQUAMOUS EPITHELIALS RARE /HPF 02/02/2021 7:34 PM FLASH WELDING MACHINE OPERATOR [facility] URINE SPECIMEN OBTAINED BY CLEAN CATCH PROCEDURE / Unknown 02/02/2021 6:40 PM FLASH WELDING MACHINE OPERATOR us Ge Gonzales MD URINE ORDERABLES Final Res ult [facility] [address] [place] [id number], [place] [phone] * TSH W/REFLEX (02/02/2021 6:00 PM FLASH WELDING MACHINE OPERATOR) TSH 1.640 0.358 - 3.74 uIU/ML 02/04/2021 2:41 PM FLASH WELDING MACHINE OPERATOR [facility] [facility] Comment: HIGH DOSES OF BIOTIN MAY INTERFERE WITH THIS TEST RESULT. CORRELATION TO CLINICAL HISTORY AND PRESENTATION RECOMMENDED. FREE T4 NOT INDICATED 02/02/2021 6:00 PM FLASH WELDING MACHINE OPERATOR us Valentino Stahl PA-C LABORATORY Final Result Performing Organization Address City/[facility]/ZIP Co de Phone Number [facility] [address] [place] [address], [place] [phone] * CHORIONIC GONADOTROPIN HCG QL (02/02/2021 6:00 PM FLASH WELDING MACHINE OPERATOR) PREG SCREEN-SERUM NEGATIVE 02/02/2021 7:47 PM FLASH WELDING MACHINE OPERATOR [facility] 02/02/2021 6:00 PM FLASH WELDING MACHINE OPERATOR us Julius Woods MD,PHD LABORATORY Final Resu lt Performing Organization Address City/[facility]/ZIP Co de Phone Number [facility] [address] [place] [address], [place] [phone] * PHOSPHORUS, INORGANIC PHOSPHATE (02/02/2021 6:00 PM FLASH WELDING MACHINE OPERATOR) Pathologist [facility] PHOSPHORUS 2.8 2.5 - 4.9 MG/DL 02/02/2021 7:00 PM FLASH WELDING MACHINE OPERATOR [facility] 02/02/2021 6:00 PM FLASH WELDING MACHINE OPERATOR us Julius Woods MD,PHD LABORATORY Final Resu lt Performing Organization Address City/[facility]/ZIP Co de Phone Number [facility] [address] [place] [address], [place] [phone] * (ABNORMAL) MAGNESIUM (02/02/2021 6:00 PM FLASH WELDING MACHINE OPERATOR) MAGNESIUM 2.5(H) 1.8 - 2.4 MG/DL 02/02/2021 7:00 PM FLASH WELDING MACHINE OPERATOR [facility] 02/02/2021 6:00 PM FLASH WELDING MACHINE OPERATOR us Julius Woods MD,PHD LABORATORY Final Resu lt Performing Organization Address City/[facility]/ZIP Co de Phone Number [facility] [address] [place] [address], [place] [phone] * (ABNORMAL) COMPREHENSIVE METABOLIC PANEL (02/02/2021 6:[address] [facility] Signature GLUCOSE 93 70 - 99 MG/DL 02/02/2021 7:00 PM [facility] BUN 19(H) 7 - 18 MG/DL 02/02/2021 7:00 PM [facility] CREATININE S/P/B 0.73 0.55 - 1.02 MG/DL 02/02/2021 7:00 PM [facility] SODIUM S/P/B 140 136 - 145 MMOL/L 02/02/2021 7:00 PM [facility] POTASSIUM S/P/B 3.6 3.5 - 5.1 MMOL/L 02/02/2021 7:00 PM [facility] CHLORIDE S/P/B 111(H) 100 - 108 MMOL/L 02/02/2021 7:00 PM [facility] CO2 23.6 21 - 32 MMOL/L 02/02/2021 7:00 PM [facility] CALCIUM S/P/B 9.0 8.5 - 10.1 MG/DL 02/02/2021 7:00 PM [facility] BILIRUBIN TOTAL S/P/B 0.3 0.2 - 1.2 MG/DL 02/02/2021 7:00 PM [facility] Comment: THIS ASSAY IS NOT RECOMMENDED FOR PATIENTS UNDERGOING TREATMENT WITH ELTROMBOPAG DUE TO THE POTENTIAL FOR FALSELY ELEVATED RESULTS. TOTAL PROTEIN S/P/B 7.0 6.4 - 8.2 G/DL 02/02/2021 7:00 PM [facility] ALBUMIN S/P/B 3.5 3.4 - 5.0 G/DL 02/02/2021 7:00 PM [facility] AST 12(L) 15 - 37 U/L 02/02/2021 7:00 PM [facility] ALT 27 14 - 55 U/L 02/02/2021 7:00 PM [facility] ALKALINE PHOSPHATASE S/P/B 72 50 - 136 U/L 02/02/2021 7:00 PM [facility] ANION GAP 5.4 5 - 15 MMOL/L 02/02/2021 7:00 PM [facility] BUN CREATININE RATIO 26.0 6 - 26 02/02/2021 7:00 PM [facility] A/G RATIO 1.0 1.0 - 2.0 RATIO 02/02/2021 7:00 PM [facility] EGFR NON-AFR. AMER. >90 >90 ML/MIN/1.7 3 M2 02/02/2021 7:00 PM [facility] EGFR AFR. AMER. >90 >90 ML/MIN/1.7 3 M2 02/02/2021 7:00 PM [facility] Comment: NOTE: eGFR is not calculated for patients <18 years of age. This is an estimated GFR (CKD EPI) and should not be used for calculating drug doses. 02/02/2021 6:00 PM FLASH WELDING MACHINE OPERATOR Julius Woods MD,PHD LABORATORY Final Resu lt [facility] [address] [place] [address], [place] [phone] * SALICYLATE (02/02/2021 5:02 PM FLASH WELDING MACHINE OPERATOR) SALICYLATES 4.2 2.8 - 20.0 MG/DL 02/02/2021 6:57 PM [facility] Comment: THERAPEUTIC: ?2.8-20.0 Toxic Level: ?>=30 02/02/2021 5:02 PM FLASH WELDING MACHINE OPERATOR Ge Gonzales MD LABORATORY Final Resu lt Performing Organization Address [facility]/ZIP Co de Phone Number [facility] [address] [place] [address], * CULTURE URINE (02/02/2021 4:55 PM FLASH WELDING MACHINE OPERATOR) SPEC DESCRIPTION URINE, UNSPECIFIED 02/02/2021 7:43 PM FLASH WELDING MACHINE OPERATOR [facility] SPECIAL REQUESTS NO SPECIAL REQUEST 02/02/2021 7:43 PM FLASH WELDING MACHINE OPERATOR [facility] CULTURE RESULT NO GROWTH 2 DAYS 02/04/2021 9:37 AM FLASH WELDING MACHINE OPERATOR [facility] URINE SPECIMEN / Unknown 02/02/2021 4:55 PM FLASH WELDING MACHINE OPERATOR 02/02/2021 7:43 PM FLASH WELDING MACHINE OPERATOR Julius Woods MD,PHD MICROBIOLOGY - GENERAL ORD ERABLES Final Result Performing Organization Address [facility] Co de Phone Number [facility] [address] [place] [address], * XR CHEST PORTABLE (02/02/2021 3:33 PM FLASH WELDING MACHINE OPERATOR) Anatomical Region Laterality Modality Chest Radiographic Alannah ging 02/02/2021 3:44 PM FLASH WELDING MACHINE OPERATOR Impressions 02/02/2021 3:45 PM FLASH WELDING MACHINE OPERATOR Impression: Right lower lobe opacity may represent atelectasis and/or pneumonia. Referred By: GE GONZALES Interpreted By: Ignacio Fernando Jr, MD, 02/02/2021 3:44 PM Narrative 02/02/2021 3:45 PM FLASH WELDING MACHINE OPERATOR Date: 02/02/2021 2:39 PM Exam: XR CHEST PORTABLE Comparison: Chest radiography dated 04/16/2019. Technique: Single view chest. History: Seizure. Altered mental status. Findings: The cardiac silhouette and pulmonary vascularity are within normal limits. There is opacity in the right lower lobe that may represent atelectasis and/or focal pneumonia. The lungs are otherwise clear. There are no pleural effusions. There is no pneumothorax. There is calcified disease in the aortic arch. The osseous structures appear normal. Procedure Note Ignacio Fernando MD - 02/02/2021 Date: 02/02/2021 2:39 PM Exam: XR CHEST PORTABLE Comparison: Chest radiography dated 04/16/2019. Technique: Single view chest. History: Seizure. Altered mental status. Findings: The cardiac silhouette and pulmonary vascularity are withinnormal limits. There is opacity in the right lower lobe that may representatelectasis and/or focal pneumonia. The lungs are otherwise clear. Thereare no pleural effusions. There is no pneumothorax. There is calcifieddisease in the aortic arch. The osseous structures appear normal. Impression: Right lower lobe opacity may represent atelectasis and/orpneumonia. Referred By: GE GONZALES Interpreted By: Ignacio Fernando Jr, MD, 02/02/2021 3:44 PM us Ge Gonzales MD GENERAL IMAGING Final Resu lt * CT HEAD WO CON (02/02/2021 2:17 PM FLASH WELDING MACHINE OPERATOR) Anatomical Region Laterality Modality Head Computed Tomogra phy 02/02/2021 2:20 PM FLASH WELDING MACHINE OPERATOR Impressions 02/02/2021 2:33 PM FLASH WELDING MACHINE OPERATOR IMPRESSION: ===== 1. ??No convincing acute intracranial abnormality. ??CT is insensitive for acute ischemia. ??If there is any continued clinical concern for acute infarct, MRI recommended. 2. ??Diffuse atrophy greater than expected for age. 3. ??Prominent leukoaraiosis stable from prior study and consistent with patient's history of multiple sclerosis provided on prior studies. Referred By: ?? Interpreted By: Angelito Ross MD, 02/02/2021 2:20 PM Narrative 02/02/2021 2:33 PM FLASH WELDING MACHINE OPERATOR EXAMINATION: CT of the head EXAM DATE/TIME: 02/02/2021 2:11 PM REASON FOR EXAM: ??Seizure, nontraumatic (Age 18-40y) ?? Slurred speech, drooping face, lip smacking. ??Prior seizure with postictal appearance currently. COMPARISON: 04/15/[address] TECHNIQUE: Axial CT images of the brain are obtained from skull base through vertex without the use of IV contrast agent. ??A dose lowering technique was used for this procedure, which may include, but is not limited to, dose reduction technique, automated exposure control, iterative reconstruction, ALARA (As Low As Reasonably Achievable), or Image Gently techniques. FINDINGS: ??No acute hemorrhage or large territory infarct. ??Ventricles are significantly enlarged with prominent bilateral sulci indicated extensive diffuse symmetric parenchymal volume loss. ??There are scattered areas of hypodensities in the periventricular deep white matter which are nonspecific but likely secondary to moderate small vessel ischemic disease. There are no extra-axial fluid collections. ??There is no mass, mass effect, or midline shift. ??There is no depressed skull fracture. ??Visualized paranasal sinuses and mastoid air cells are clear. Visualized orbital contents are unremarkable. ===== Procedure Note Angelito Ross MD - 02/02/2021 EXAMINATION: CT of the head EXAM DATE/TIME: 02/02/2021 2:11 PM REASON FOR EXAM: Seizure, nontraumatic (Age 18-40y) Slurred speech, drooping face, lip smacking. Prior seizure withpostictal appearance currently. COMPARISON: 04/15/[address] TECHNIQUE: Axial CT images of the brain are obtained from skull basethrough vertex without the use of IV contrast agent. A dose loweringtechnique was used for this procedure, which may include, but is notlimited to, dose reduction technique, automated exposure control,iterative reconstruction, ALARA (As Low As Reasonably Achievable), orImage Gently techniques. FINDINGS: No acute hemorrhage or large territory infarct. Ventricles aresignificantly enlarged with prominent bilateral sulci indicated extensivediffuse symmetric parenchymal volume loss. There are scattered areas ofhypodensities in the periventricular deep white matter which arenonspecific but likely secondary to moderate small vessel ischemicdisease. There are no extra-axial fluid collections. There is no mass,mass effect, or midline shift. There is no depressed skull fracture.Visualized paranasal sinuses and mastoid air cells are clear. Visualizedorbital contents are unremarkable. ===== IMPRESSION: ===== 1. No convincing acute intracranial abnormality. CT is insensitive foracute ischemia. If there is any continued clinical concern for acuteinfarct, MRI recommended. 2. Diffuse atrophy greater than expected for age. 3. Prominent leukoaraiosis stable from prior study and consistent withpatient's history of multiple sclerosis provided on prior studies. Referred By: Interpreted By: Angelito Ross MD, 02/02/2021 2:20 PM Ge Gonzales MD CT Final Resu lt * (ABNORMAL) ACETAMINOPHEN (02/02/2021 1:24 PM FLASH WELDING MACHINE OPERATOR) ACETAMINOPHEN S/P/B <2.0(L) 10.0 - 30.0 MCG/ML 02/02/2021 2:07 PM FLASH WELDING MACHINE OPERATOR [facility] Comment: ?THERAPEUTIC: 10-30 ?TOXIC: >200 02/02/2021 1:24 PM FLASH WELDING MACHINE OPERATOR Ge Gonzales MD LABORATORY Final Resu lt [facility] [address] [place] [address], * ETHANOL (02/02/2021 1:24 PM FLASH WELDING MACHINE OPERATOR) ALCOHOL S/P/B <0.003 <0.003 G/DL 02/02/2021 2:07 PM FLASH WELDING MACHINE OPERATOR [facility] 02/02/2021 1:24 PM FLASH WELDING MACHINE OPERATOR Ge Gonzales MD LABORATORY Final Resu lt Performing Organization Address City/[facility]/ZIP Co de Phone Number [facility] [address] [place] [address], [place] [phone] * PARTIAL THROMBOPLASTIN TIME,PTT (02/02/2021 1:24 PM FLASH WELDING MACHINE OPERATOR) PTT 26.9 25.1 - 36.5 SEC 02/02/2021 2:09 PM FLASH WELDING MACHINE OPERATOR [facility] 02/02/2021 1:24 PM FLASH WELDING MACHINE OPERATOR Ge Gonzales MD LABORATORY Final Resu lt Performing Organization Address City/[facility] Co de Phone Number [facility] [address] [place] [address], [place] [phone] * PROTIME/INR, VENOUS (02/02/2021 1:24 PM FLASH WELDING MACHINE OPERATOR) PROTIME 11.4 10.2 - 12.9 SEC 02/02/2021 2:09 PM FLASH WELDING MACHINE OPERATOR [facility] INR 1.0 02/02/2021 2:09 PM FLASH WELDING MACHINE OPERATOR [facility] Comment: Recommended INR Therapeutic Goals: ??2.0-3.0 Routine Therapy ??2.5-3.5 Mechanical Prosthetic Valves (High Risk) 02/02/2021 1:24 PM FLASH WELDING MACHINE OPERATOR Ge Gonzales MD LABORATORY Final Resu lt [facility] [address] [place] [address], * (ABNORMAL) CBC W/DIFF AUTOMATED (02/02/2021 1:24 PM FLASH WELDING MACHINE OPERATOR) [facility] WBC 10.7 4.5 - 11.0 x10'3/uL 02/02/2021 1:47 PM FLASH WELDING MACHINE OPERATOR [facility] RBC 4.64 4.20 - 5.40 x10'6/uL 02/02/2021 1:47 PM FLASH WELDING MACHINE OPERATOR [facility] HGB 10.4(L) 12.0 - 16.0 G/DL 02/02/2021 1:47 PM FLASH WELDING MACHINE OPERATOR [facility] HCT 35.6(L) 38.0 - 48.0 % 02/02/2021 1:47 PM FLASH WELDING MACHINE OPERATOR [facility] MCV 76.7(L) 81.0 - 99.0 FL 02/02/2021 1:47 PM FLASH WELDING MACHINE OPERATOR [facility] MCH 22.4(L) 27.0 - 31.0 PG 02/02/2021 1:47 PM FLASH WELDING MACHINE OPERATOR [facility] MCHC 29.2(L) 32.0 - 36.0 G/DL 02/02/2021 1:47 PM FLASH WELDING MACHINE OPERATOR [facility] RDW 18.4(H) 11.5 - 14.5 % 02/02/2021 1:47 PM FLASH WELDING MACHINE OPERATOR [facility] PLT 376 130 - 400 x10'3/uL 02/02/2021 1:47 PM FLASH WELDING MACHINE OPERATOR [facility] MPV 9.5 9.3 - 12.2 FL 02/02/2021 1:47 PM FLASH WELDING MACHINE OPERATOR [facility] DIFFERENTIAL TYPE AUTOMATED DIFFERENTIAL 02/02/2021 1:47 PM FLASH WELDING MACHINE OPERATOR [facility] NEUTROPHILS % 68.4 % 02/02/2021 1:47 PM FLASH WELDING MACHINE OPERATOR [facility] LYMPHOCYTES % 14.4 % 02/02/2021 1:47 PM FLASH WELDING MACHINE OPERATOR [facility] MONOCYTES % 9.4 % 02/02/2021 1:47 PM FLASH WELDING MACHINE OPERATOR [facility] EOSINOPHILS 6.3 % 02/02/2021 1:47 PM FLASH WELDING MACHINE OPERATOR [facility] BASOPHILS 0.8 % 02/02/2021 1:47 PM FLASH WELDING MACHINE OPERATOR [facility] IMMATURE GRANS % 0.7 % 02/03/20 1:47 PM FLASH WELDING MACHINE OPERATOR [facility] ABS. NEUTROPHILS TOTAL 7.30 1.80 - 7.70 x10'3/uL 02/02/2021 1:47 PM FLASH WELDING MACHINE OPERATOR [facility] ABS. LYMPHOCYTES 1.53 1.00 - 4.80 x10'3/uL 02/02/2021 1:47 PM FLASH WELDING MACHINE OPERATOR [facility] ABS. MONOCYTES 1.00(H) 0.24 - 0.86 x10'3/uL 02/02/2021 1:47 PM FLASH WELDING MACHINE OPERATOR [facility] ABS. EOSINOPHILS 0.67(H) 0.04 - 0.36 x10'3/uL 02/02/2021 1:47 PM FLASH WELDING MACHINE OPERATOR [facility] ABS. BASOPHILS 0.09(H) 0.01 - 0.08 x10'3/uL 02/02/2021 1:47 PM FLASH WELDING MACHINE OPERATOR [facility] ABS. IMMATURE GRANULOCYTES 0.07 0.00 - 0.49 x10'3/uL 02/02/2021 1:47 PM FLASH WELDING MACHINE OPERATOR [facility] 02/02/2021 1:24 PM FLASH WELDING MACHINE OPERATOR us Ge Gonzales MD LABORATORY Final Resu lt [facility] [address] [place] [address], documented in this encounter Visit Diagnoses Diagnosis Seizure ([facility] HHS/HCC)- Primary Other convulsions Seizure ([facility] HHS/HCC) Other convulsions Paranoid schizophrenia ([facility] HHS/HCC) Paranoid schizophrenia, unspecified condition Major neurocognitive disorder ([facility] HHS/HCC) documented in this encounter Admitting Diagnoses Diagnosis Seizure ([facility] HHS/HCC) Other convulsions documented in this encounter Administered Medications Inactive Administered Medications - up to 3 most recent administrations Medication Order MAR Action Action Date Dose Rate Site baclofen (LIORESAL) tablet 10 mg 10 mg, Oral, 2 times daily, First dose on Sun02/02/21 at 2215, Until Discontinued Given 02/07/2021 10:00 AM FLASH WELDING MACHINE OPERATOR 10 mg Given 02/06/2021 8:24 PM FLASH WELDING MACHINE OPERATOR 10 mg Given 02/06/2021 7:55 AM FLASH WELDING MACHINE OPERATOR 10 mg escitalopram (LEXAPRO) tablet 20 mg 20 mg, Oral, Daily, First dose on Sun02/03/21 at 0900, Until Discontinued Given 02/07/2021 10:00 AM FLASH WELDING MACHINE OPERATOR 20 mg Given 02/06/2021 7:55 AM FLASH WELDING MACHINE OPERATOR 20 mg Given 02/05/2021 7:46 AM FLASH WELDING MACHINE OPERATOR 20 mg fluticasone propionate (FLONASE) 50 MCG/ACT nasal spray 1 spray 1 spray, Each Nostril, 2 times daily PRN, Allergies, Starting on Sun02/02/21 at 2149, Until Sun02/07/21 at 1621 Given 02/06/2021 7:55 AM FLASH WELDING MACHINE OPERATOR 1 spray Given 02/03/2021 8:43 PM FLASH WELDING MACHINE OPERATOR 1 spray fluticasone-salmeterol (ADVAIR HFA) 230-21 MCG/ACT inhaler 2 puff 2 puff, Inhalation, 2 times daily, First dose (after last reorder) on Sun02/02/21 at 2215, Until Discontinued, Shake Well. Prime inhaler prior to first dose. Therapeutic interchange for symbicort 160/4.5 per [facility] protocol Following administration, rinse mouth with water after use (do not swallow) to reduce risk of oral candidiasis. Given 02/03/2021 8:35 AM FLASH WELDING MACHINE OPERATOR 2 puffs Given 02/02/2021 10:13 PM FLASH WELDING MACHINE OPERATOR 2 puffs gadoterate meglumine (DOTAREM) 7.5 MMOL/15ML injection 13 mL 13 mL, Intravenous, IMG once as needed, Contrast, 1 dose, Starting on Sun02/02/21 at 2030, Until Sun02/02/21 at 2030 Given 02/02/2021 8:31 PM FLASH WELDING MACHINE OPERATOR 13 mLs L eft Arm lacosamide (VIMPAT) tablet 100 mg 100 mg, Oral, 2 times daily, First dose on Sun02/02/21 at 2215, Until Discontinued Given 02/03/2021 9:44 AM FLASH WELDING MACHINE OPERATOR 100 mg Given 02/02/2021 10:28 PM FLASH WELDING MACHINE OPERATOR 100 mg lacosamide (VIMPAT) tablet 200 mg 200 mg, Oral, 2 times daily, First dose on Sun02/03/21 at 2100, Until Discontinued Given 02/07/2021 10:00 AM FLASH WELDING MACHINE OPERATOR 20 0 mg Given 02/06/2021 8:24 PM FLASH WELDING MACHINE OPERATOR 200 mg Given 02/06/2021 7:54 AM FLASH WELDING MACHINE OPERATOR 200 mg LORazepam (ATIVAN) 2 MG/ML injection 1 dose, Starting on Sun02/02/21 at 1313, Until Sun02/02/21 at 1316, Created by [email or web address] crawley For IV use, further dilute with an equal volume of saline. Do not exceed a rate of 2 mg/min. Given 02/02/2021 1:16 PM FLASH WELDING MACHINE OPERATOR 1 mg LORazepam (ATIVAN) tablet 1 mg 1 mg, Oral, 2 times daily, 3 doses, First dose on Sun02/04/21 at 1100, Last dose on Sun02/05/21 at 0900 Given 02/05/2021 7:47 AM FLASH WELDING MACHINE OPERATOR 1 mg Given 02/04/2021 7:40 PM FLASH WELDING MACHINE OPERATOR 1 mg Given 02/04/2021 1:46 PM FLASH WELDING MACHINE OPERATOR 1 mg LORazepam (ATIVAN) tablet 1 mg 1 mg, Oral, 2 times daily, 4 doses, First dose (after last reorder) on 02/05/21 at 2100, Last dose on Sun02/07/21 at 0900 Given 02/07/2021 10:00 AM FLASH WELDING MACHINE OPERATOR 1 mg Given 02/06/2021 8:24 PM FLASH WELDING MACHINE OPERATOR 1 mg Given 02/06/2021 7:54 AM FLASH WELDING MACHINE OPERATOR 1 mg zonisamide (ZONEGRAN) capsule 500 mg 500 mg, Oral, Nightly, First dose on Sun02/02/21 at 2215, Until Discontinued, HAZARDOUS MEDICATION Given 02/06/2021 8:24 PM FLASH WELDING MACHINE OPERATOR 500 mg Given 02/05/2021 8:10 PM FLASH WELDING MACHINE OPERATOR 500 mg Given 02/04/2021 7:38 PM FLASH WELDING MACHINE OPERATOR 500 mg documented in this encounter Active and Recently Administered Medications Times are shown in FLASH WELDING MACHINE OPERATOR. Scheduled Medication Order 02/05/2021 02/06/2021 02/07/2021 baclofen (LIORESAL) tablet 10 mg 10 mg, Oral, 2 times daily, First dose on Sun02/02/21 at 2215, Until Discontinued 746 (Given - Provider: Kenia Cagle RN)2009 (Given - Provider: Ruba Jain RN) 754 (Given - Provider: Kenia Cagle RN)2023 (Given - Provider: Ruba Jain RN) 1000 (Given - Provider: Nadja Lucero RN) enoxaparin (LOVENOX) 40 MG/0.4ML syringe 40 mg 40 mg, Subcutaneous, Nightly (enoxaparin), First dose on Sun02/02/21 at 2245, Until Discontinued, Administer by deep SubQ injection alternating between the left or right anterolateral and left or right posterolateral abdominal wall. 2127 (Not Given - Provider: Ruba Jain RN - Reason: Patient/family declined) 2023 (Not Given - Provider: Ruba Jain RN - Reason: Patient/family declined) escitalopram (LEXAPRO) tablet 20 mg 20 mg, Oral, Daily, First dose on Sun02/03/21 at 0900, Until Discontinued 0746 (Given - Provider: Kenia Cagle RN) 754 (Given - Provider: Kenia Cagle RN) 1000 (Given - Provider: Nadja Lucero RN) lacosamide (VIMPAT) tablet 200 mg 200 mg, Oral, 2 times daily, First dose on Yaa 02/03/21 at 2100, Until Discontinued 0746 (Given - Provider: Kenia Cagle RN)2009 (Given - Provider: Ruba Jain RN) 0754 (Given - Provider: Kenia Cagle RN)2023 (Given - Provider: Ruba Jain RN) 1000 (Given - Provider: Nadja Lucero RN) LORazepam (ATIVAN) tablet 1 mg (COMPLETED) 1 mg, Oral, 2 times daily, 3 doses, First dose on Sun02/04/21 at 1100, Last dose on Sun02/05/21 at 0900 0747 (Given - Provider: Kenia Cagle RN) LORazepam (ATIVAN) tablet 1 mg (COMPLETED) 1 mg, Oral, 2 times daily, 4 doses, First dose (after last reorder) on Sun02/05/21 at 2100, Last dose on Sun02/07/21 at 0900 2009 (Given - Provider: Ruba Jain RN) 075 (Given - Provider: Kenia Cagle RN)2023 (Given - Provider: Ruba Jain RN) 1000 (Given - Provider: Nadja Lucero RN) zonisamide (ZONEGRAN) capsule 500 mg 500 mg, Oral, Nightly, First dose on Sun02/02/21 at 2215, Until Discontinued, HAZARDOUS MEDICATION 2009 (Given - Provider: Ruba Jain RN) 2023 (Given - Provider: Ruba Jain RN) PRN Medication Order 02/05/2021 02/06/2021 02/07/2021 albuterol sulfate HFA 108 (90 Base) MCG/ACT inhaler 2 puff 2 puff, Inhalation, Every 4 hours PRN, Shortness of breath, Starting on Sun02/02/21 at 2149, Until Sun02/07/21 at 1621 fluticasone propionate (FLONASE) 50 MCG/ACT nasal spray 1 spray 1 spray, Each Nostril, 2 times daily PRN, Allergies, Starting on Sun02/02/21 at 2149, Until Sun02/07/21 at 1621 0755 (Given - Provider: Michelle Cagle RN) ibuprofen (MOTRIN) tablet 800 mg 800 mg, Oral, 2 times daily PRN, Mild pain (Scale 1 - 3), Fever, Discomfort, Starting on Sun02/02/21 at 2149, Until Sun02/07/21 at 1621 documented in this encounter Care Teams Baggage Security Checker Relationship Specialty Start Date End Date Lauren Page ADMINISTRATIVE TECHNICIAN- [address] [place] [address] PCP - General NURSE PRACTITIONER 08/27/18 documented as of this encounter
--- OUTSIDE RECORDS SUMMARY | 2024-03-22 16:48 | XMS_ITS | Encounter Summary ---
Author Organization [facility] Address [facility] [place] [address] [place] [address] Care Team Providers Care Shellfish Processing Machine Tender Name Role Phone Lauren Saba [facility] Primary Care Provider + Encounter Details Date Type Department Care Team (Late st Contact Info) Description 02/08/2021 Hospital Follow-up Call [facility] Med/Surg 5th Floor [place], [place] [id number] Li Mena RN Social History Tobacco Use Types Packs/Day Years [...] COVID-19? No / Unsure 02/02/2021 1:28 PM BOBTAIL DRIVER documented as of this encounter Functional Status * RETIRED Are you deaf or do you have serious difficulty hearing Answer Date of Assessment Author Status No 02/02/2021 9:14 PM BOBTAIL DRIVER Activ e * RETIRED Are you blind or do you have serious difficulty seeing, even when wearing glasses? Answer Date of Assessment Author Status No 02/02/2021 9:14 PM BOBTAIL DRIVER Activ e * Do you have serious difficulty walking or climbing stairs? Answer Date of Assessment Author Status Yes 02/02/2021 9:14 PM BOBTAIL DRIVER Lissett Silva RN Active * Do you have difficulty dressing or bathing? Answer Date of Assessment Author Status No 02/02/2021 9:14 PM BOBTAIL DRIVER Lissett Silva RN Active * Because of a physical, mental, or emotional condition, do you have difficulty doing errands alone such as visiting a doctor's office or shopping? Answer Date of Assessment Author Status Yes 02/02/2021 9:14 PM BOBTAIL DRIVER Lissett Silva RN Active documented as of this encounter Mental Status * Because of a physical, mental, or emotional condition, do you have serious difficulty concentrating, remembering, or making decisions? Answer Entry Date Author Status Yes 02/02/2021 9:14 PM BOBTAIL DRIVER Lissett Silva RN Active documented in this encounter Progress Notes * Li Mena RN - 02/08/2021 12:33 PM CST Had no c/o any and states she would recommend the hospital AIL DRIVER documented in this encounter Plan of Treatment Not on file documented as of this encounter Goals Goal Patient Goal Type Associated Problems Recent Progress Patient-Stated? Author Family - family caregiver with be involved in care transitions and discharge planning General No Dejon Bravo RN documented as of this encounter Visit Diagnoses Not on filedocumented in this encounter Care Teams Shellfish Processing Machine Tender Relationship Specialty Start Date End Date Lauren Saba, LOAN OFFICER ASSISTANT- [address] [place] [phone] PCP - General NURSE PRACTITIONER 08/27/18 documented as of this encounter
--- OUTSIDE RECORDS SUMMARY | 2024-03-22 16:48 | XMS_ITS | Encounter Summary ---
Author Organization [facility] Address [facility] [place] [address] [place] [address] Care Team Providers Care Owner Manager Name Role Phone Mauro Emery MD Primary Care Provider Unavailable Mauro Emery MD Primary Care Provider Unavailable Mauro Emery MD Primary Care Provider Unavailable Encounter Details Date Type Department Care Team (Late st Contact Info) Description 03/15/2006 Emergency [facility] [place] [address] Mauro Emery MD Social History Tobacco Use [...] on filedocumented in this encounter Care Teams Owner Manager Relationship Specialty Start Date End Date Mauro Emery MD PCP - General 05/11/16 Mauro Emery MD PCP - General 04/27/16 Mauro Emery MD PCP - General 03/21/15 7 documented as of this encounter
--- OUTSIDE RECORDS SUMMARY | 2024-03-22 16:48 | XMS_ITS | Encounter Summary ---
Author Organization [facility] Address [facility] [place] [address] [place] [address] Care Team Providers Care Truck Assembler Name Role Phone Jose Palm MD Primary Care Provider [phone] Encounter Details Date Type Department Care Team (Latest Contact Info) Description 07/31/2017 11:51 AM CDT - 07/31/2017 11:59 PM CDT Hospital Encounter [facility] Mammography [address] [place] [address] Non-Staff, Provider Discharge Disposition: Home or Self Care (Routine [...] MG SCREENING W CORA ALEX DIGI Routine 07/31/2017 12:09 PM CDT Screening breast examination documented in this encounter Results * MG SCREENING W CORA ALEX DIGI (07/31/2017 12:09 PM CDT) Anatomical Region Laterality Modality Breast Bilateral Mammography 07/31/2017 12:2 3 PM CDT Impressions 07/31/2017 12:27 PM CDT =====IMPRESSION:===== No mammographic findings suggestive of malignancy. ASSESSMENT: ACR BI-RADS Category 2 - Benign. RECOMMENDATION: 1: Routine screening mammogram ??bilateral ??in 1 year ? COMMENTS: ? Narrative 07/31/2017 12:27 PM CDT EXAMINATION: Digital bilateral screening mammogram with 3-D tomosynthesis EXAM DATE/TIME: 07/31/2017 11:57 AM REASON FOR EXAM: ??Asymptomatic routine screening study ? COMPARISON: Previous mammograms dating back to 04/27/2016 TECHNIQUE: Digital screening mammography of both breasts was performed in addition to 3-D Tomosynthesis technique. This study was read with the assistance of a computer-aided detection system. TISSUE DENSITY: The breast tissue is extremely dense. FINDINGS: Scattered microcalcifications seen diffusely throughout both breasts similar to previous study. No suspicious masses, malignant appearing calcifications, skin thickening or other abnormalities are present. ??No significant change from the prior exam. us Jose Palm MD MAMMO Final Result documented in this encounter Visit Diagnoses Not on filedocumented in this encounter Care Teams Truck Assembler Relationship Specialty Start Date End Date Jose Palm MD [address] [place] [address] [address] [place] [address] PCP - General INTERNAL MEDICINE 07/31/17 08/26/18 documented as of this encounter
--- OUTSIDE RECORDS SUMMARY | 2024-03-22 16:48 | XMS_ITS | Encounter Summary ---
Author Organization [facility] Address [facility] [place] [address] [place] [address] Care Team Providers Care Trimming Caser Name Role Phone Mauro Emery MD Primary Care Provider Unavailable Encounter Details Date Type Department Care Team (Late st Contact Info) Description 05/11/2016 Abstract [facility] Diagnostic Imaging [address] [place] [address] Mauro Emery MD Social History Tobacco Use [...] as of this encounter Visit Diagnoses Diagnosis Mammographic microcalcification found on diagnostic imaging of breast Mammographic microcalcification documented in this encounter Care Teams Trimming Caser Relationship Specialty Start Date End Date Mauro Emery MD PCP - General 05/11/16 documented as of this encounter
--- OUTSIDE RECORDS SUMMARY | 2024-03-22 16:48 | XMS_ITS | Encounter Summary ---
Author Organization [facility] Address [facility] [place] [address] [place] [address] Care Team Providers Care Rn Paralegal Name Role Phone , Generic Conversion Primary Care Provider Unavailable , Generic Conversion Primary Care Provider Unavailable Md Generic Conversion Primary Care Provider Unavailable Encounter Details Date Type Department Care Team (Late st Contact Info) Description 03/21/2015 Emergency [facility] Emergency [place], [place] [id number] Ovidio Grace MD [address] [facility] [place] [address] Social History Tobacco Use Types Packs/Day Years [...] Name Priority Date/Time Associated Diagnosis Comments URINALYSIS WI REFLEX TO CULTURE STAT 03/21/2015 3:11 PM HOSPITAL STAFF PHARMACIST DRUG SCREEN RAPID STAT 03/21/2015 3:1 1 PM HOSPITAL STAFF PHARMACIST URINE BACTERIA CULTURE Routine 6 3:11 PM HOSPITAL STAFF PHARMACIST COMPREHENSIVE METABOLIC PANEL STAT 03/21/2015 2:37 PM HOSPITAL STAFF PHARMACIST CHORIONIC GONADOTROPIN HCG QL STAT 03/21/2015 2:37 PM HOSPITAL STAFF PHARMACIST CBC W/DIFF AUTOMATED STAT 03/21/2015 2:37 PM HOSPITAL STAFF PHARMACIST ETHANOL STAT 03/21/2015 2:37 PM HOSPITAL STAFF PHARMACIST documented in this encounter Results * CULTURE URINE (03/21/2015 3:11 PM HOSPITAL STAFF PHARMACIST) SPEC DESCRIPTION URINE CLEAN CATCH 03/21/2015 3:41 PM HOSPITAL STAFF PHARMACIST [facility] SPECIAL REQUESTS NO SPECIAL REQUEST 03/21/2015 3:41 PM HOSPITAL STAFF PHARMACIST [facility] CULTURE RESULT POLYMICROBIAL GROWTH CONSISTENT WITH NORMAL GENITAL ZUHAIR. ?? SUSCEPTIBILITIES NOT ROUTINELY PERFORMED. 03/23/2015 7:07 AM [facility] URINE SPECIMEN OBTAINED BY CLEAN CATCH PROCEDURE / Unknown 03/21/2015 3:11 PM HOSPITAL STAFF PHARMACIST 03/21/2015 3:41 PM HOSPITAL STAFF PHARMACIST us Generic Conversion Md HAWKINS MICROBIOLOGY - GENERAL ORDERABLES Final Result [facility] [address] [place] [address], [place] [phone] * (ABNORMAL) URINALYSIS WI REFLEX TO CULTURE (03/21/2015 3:11 PM HOSPITAL STAFF PHARMACIST) SOURCE (FLUID) URINE CLEAN CATCH 03/21/2015 2:10 PM HOSPITAL STAFF PHARMACIST [facility] COLOR (U) YELLOW 03/21/2015 3:40 PM HOSPITAL STAFF PHARMACIST [facility] TRANSPARENCY CLOUDY 03/21/2015 3:40 PM HOSPITAL STAFF PHARMACIST [facility] SPECIFIC GRAVITY (U) 1.027 1.001 - 1.030 03/21/2015 3:40 PM HOSPITAL STAFF PHARMACIST [facility] U PH 6.0 5.0 - 9.0 03/21/2015 3:40 PM [facility] LEUKOCYTES (U) LARGE(A) NEGATIVE 03/21/2015 3:40 PM HOSPITAL STAFF PHARMACIST [facility] NITRITES NEGATIVE NEGATIVE 03/21/2015 3:40 PM [facility] PROTEIN (U) 30(H) <30 MG/DL 03/21/2015 3:40 PM [facility] URINE GLUCOSE NEGATIVE NEGATIVE MG/DL 03/21/2015 3:40 PM [facility] KETONES MG/DL (U) NEGATIVE NEGATIVE MG/DL 03/21/2015 3:40 PM [facility] UROBILINOGEN NEGATIVE NEGATIVE MG/DL 03/21/2015 3:40 PM [facility] BILIRUBIN (U) NEGATIVE NEGATIVE MG/DL 03/21/2015 3:40 PM [facility] BLOOD (U) NEGATIVE NEGATIVE 03/21/2015 3:40 PM [facility] CULTURE & SENSITIVITY INDICATED? SPECIMEN SETUP FOR CULTURE 03/21/2015 3:40 PM [facility] SQUAMOUS EPITHELIALS MANY /LPF 03/21/2015 3:40 PM [facility] MUCUS RARE /LPF 03/21/2015 3:40 PM [facility] WBC/HPF >100(H) <6 /HPF 03/21/2015 3:40 PM [facility] RBC/HPF 3 <6 /HPF 03/21/2015 3:40 PM [facility] BACTERIA (U) RARE(A) NONE /HPF 03/21/2015 3:40 PM [facility] 03/21/2015 3:11 PM HOSPITAL STAFF PHARMACIST 03/21/2015 3:21 PM HOSPITAL STAFF PHARMACIST us Generic Conversion Md HAWKINS URINE ORDERABLES Final Result [facility] [address] [place] [address], * (ABNORMAL) DRUG SCREEN RAPID (03/21/2015 3:11 PM HOSPITAL STAFF PHARMACIST) AMPHETAMINE (U) NEGATIVE NEGATIVE 6 3:40 PM [facility] BARBITURATES SCREEN (U) NEGATIVE NEGATIVE 03/21/2015 3:40 PM [facility] BENZODIAZEPINES SCREEN (U) NEGATIVE NEGATIVE 03/21/2015 3:40 PM [facility] COCAINE METABOLITES (U) NEGATIVE NEGATIVE 03/21/2015 3:40 PM [facility] METHAMPHETAMINE (U) NEGATIVE NEGATIVE 03/21/2015 3:40 PM [facility] METHADONE (U) NEGATIVE NEGATIVE 03/21/2015 3:40 PM [facility] OPIATE SCREEN (U) NEGATIVE NEGATIVE 016 3:40 PM [facility] OXYCODONE SCREEN (U) NEGATIVE NEGATIVE 03/21/2015 3:40 PM [facility] PHENCYCLIDINE PCP (U) NEGATIVE NEGATIVE 03/21/2015 3:40 PM [facility] PROPOXYPHENE SCREEN (U) NEGATIVE NEGATIVE 03/21/2015 3:40 PM [facility] CANNABINOIDS SCREEN (U) POSITIVE(A) NEGATIVE 03/21/2015 3:40 PM [facility] TRICYCLIC ANTIDEPRESSANT SCREEN (U) POSITIVE(A) NEGATIVE 03/21/2015 3:40 PM [facility] Comment: NOTE: RESULTS OF THIS DRUG SCREEN SHOULD BE USED FOR MEDICAL PURPOSES ONLY AND NOT FOR LEGAL OR EMPLOYMENT PURPOSES. POSITIVE RESULTS ARE NOT CONFIRMED. MEDICATIONS CONTAINING EPHEDRINE MAY CAUSE FALSE POSITIVE AMPHETAMINE CALL [phone] TO REQUEST CONFIRMATION TESTING. IF CREATININE IS <40 mg/dL. ??RECOLLECTION IS SUGGESTED. AMPHETAMINE- ?500 NG/ML BARBITURATE- ?200 NG/ML BENZODIAZEPINE- ?? 150 NG/ML BUPRENORPHINE- ? 10 NG/ML COCAINE- ?150 NG/ML METHAMPHETAMINES- 500 NG/ML METHADONE- ?200 NG/ML OPIATE- ? 100 NG/ML OXYCODONE- ?100 NG/ML PCP- ? 25 NG/ML PROPOXYPHENE- ? 300 NG/ML THC- ? 50 NG/ML TCA- ?300 NG/ML CREATININE (U) 150.8 28 - 217 MG/DL 03/21/2015 3:33 PM HOSPITAL STAFF PHARMACIST [facility] 03/21/2015 3:11 PM HOSPITAL STAFF PHARMACIST 03/21/2015 3:21 PM HOSPITAL STAFF PHARMACIST Generic Conversion Md HAWKINS URINE ORDERABLES Final Result Performing Organization Address [facility] de Phone Number [facility] [address] [phone] * CHORIONIC GONADOTROPINHCG QL (03/21/2015 2:37 PM HOSPITAL STAFF PHARMACIST) Pathologist [facility] PREG SCREEN-SERUM NEGATIVE 03/21/2015 2:54 PM HOSPITAL STAFF PHARMACIST [facility] 03/21/2015 2:37 PM HOSPITAL STAFF PHARMACIST 03/21/2015 2:38 PM HOSPITAL STAFF PHARMACIST us Generic Conversion Md HAWKINS LABORATORY Final R esult Performing Organization Address [facility] de Phone Number [facility] [address] [phone] * (ABNORMAL) COMPREHENSIVE METABOLIC PANEL (03/21/2015 2:37 PM HOSPITAL STAFF PHARMACIST) GLUCOSE 87 70 - 99 mg/dL 03/21/2015 3:05 PM HOSPITAL STAFF PHARMACIST [facility] BUN 21 8 - 23 mg/dL 03/21/2015 3:05 PM [facility] CREATININE S/P/B 0.74 0.60 - 1.10 mg/dL 03/21/2015 3:05 PM [facility] SODIUM S/P/B 138 136 - 145 mmol/L 03/21/2015 3:05 PM [facility] POTASSIUM S/P/B 3.7 3.5 - 5.1 mmol/L 03/21/2015 3:05 PM [facility] CHLORIDE S/P/B 103 98 - 107 mmol/L 03/21/2015 3:05 PM [facility] CO2 22 22 - 29 mmol/L 03/21/2015 3:05 PM [facility] BILIRUBIN TOTAL S/P/B <0.1(L) 0.2 - 1.2 mg/dL 03/21/2015 3:08 PM [facility] CALCIUM S/P/B 9.0 8.6 - 10.2 mg/dL 03/21/2015 3:05 PM [facility] ALKALINE PHOSPHATASE S/P/B 62 35 - 104 IU/L 03/21/2015 3:05 PM [facility] AST 11 0 - 32 IU/L 03/21/2015 3:05 PM [facility] TOTAL PROTEIN S/P/B 7.0 6.4 - 8.3 g/dL 03/21/2015 3:05 PM [facility] ALBUMIN S/P/B 4.5 3.5 - 5.2 g/dL 03/21/2015 3:05 PM [facility] ALT 13 0 - 33 IU/L 03/21/2015 3:05 PM [facility] GLOBULIN 2.5 2.3 - 3.6 g/dL 03/21/2015 3:05 PM [facility] A/G RATIO 1.8 1.0 - 2.0 03/21/2015 3:05 PM [facility] ANION GAP 17 8 - 20 03/21/2015 3:05 PM [facility] EGFR NON-AFR. AMER. >60 >60 mL/min/1.7 '2 03/21/2015 3:05 PM [facility] EGFR AFR. AMER. >60 >60 mL/min/1.7 '2 03/21/2015 3:05 PM [facility] Comment: NOTE: eGFR is not calculated for patients <18 years of age. This is an estimated GFR (CKD EPI) and should not be used for calculating drug doses. 03/21/2015 2:37 PM HOSPITAL STAFF PHARMACIST 03/21/2015 2:38 PM HOSPITAL STAFF PHARMACIST us Generic Conversion Md HAWKINS LABORATORY Final R esult [facility] [address] [place] [address], * (ABNORMAL) CBC W/DIFF AUTOMATED (03/21/2015 2:37 PM HOSPITAL STAFF PHARMACIST) WBC 14.4(H) 4.8 - 10.8 X10'3/uL 03/21/2015 2:44 PM [facility] RBC 4.72 4.20 - 5.40 X10'6/uL 03/21/2015 2:44 PM [facility] HGB 14.4 12.0 - 16.0 g/dL 03/21/2015 2:44 PM [facility] HCT 42.8 38.0 - 48.0 % 03/21/2015 2:44 PM [facility] MCV 90.7 81.0 - 99.0 fL 03/21/2015 2:44 PM [facility] MCH 30.5 27.0 - 31.0 pg 03/21/2015 2:44 PM [facility] MCHC 33.6 32.0 - 36.0 g/dL 03/21/2015 2:44 PM [facility] RDW 12.8 11.5 - 14.5 % 03/21/2015 2:44 PM [facility] PLT 390 130 - 400 X10'3/uL 03/21/2015 2:44 PM [facility] MPV 8.7(L) 9.3 - 12.2 fL 03/21/2015 2:44 PM [facility] DIFFERENTIAL TYPE AUTOMATED 03/21/2015 2:44 PM [facility] NEUTROPHILS % 65.4(H) 43.0 - 65.0 % 03/21/2015 2:44 PM [facility] LYMPHOCYTES % 22.4 20.0 - 46.0 % 03/21/2015 2:44 PM [facility] MONOCYTES % 6.7 5.0 - 12.0 % 03/21/2015 2:44 PM [facility] EOSINOPHILS 3.8(H) 1.0 - 3.0 % 03/21/2015 2:44 PM [facility] BASOPHILS 0.9 0.0 - 1.0 % 03/21/2015 2:44 PM [facility] IMMATURE GRANS % 0.8 0.0 - 1.0 % 03/21/2015 2:44 PM [facility] 03/21/2015 2:37 PM HOSPITAL STAFF PHARMACIST 03/21/2015 2:38 PM HOSPITAL STAFF PHARMACIST us Generic Conversion Md HAWKINS LABORAT[facility] Final R esult [facility] [address] [place] [address], [place] [phone] * ETHANOL (03/21/2015 2:37 PM HOSPITAL STAFF PHARMACIST) ALCOHOL S/P/B <0.010 <0.010 % 03/21/2015 3:05 PM HOSPITAL STAFF PHARMACIST [facility] SERUM OR PLASMA SPECIMEN / Unknown 03/21/2015 2:37 PM HOSPITAL STAFF PHARMACIST 03/21/2015 2:38 PM HOSPITAL STAFF PHARMACIST us Generic Conversion Md HAWKINS LABORAT[facility] Final R esult Performing Organization Address [facility] Co de Phone Number [facility] [address] [place] [address], [place] [phone] documented in this encounter Visit Diagnoses Diagnosis 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
--- OUTSIDE RECORDS SUMMARY | 2024-03-22 16:48 | XMS_ITS | Encounter Summary ---
Author Organization [facility] Address [facility] [facility] [place] [address] [place] [address] Care Team Providers Care Electronic Data Interchange Specialist Name Role Phone Lauren Saba [facility] Primary Care Provider + Encounter Details Date Type Department Care Team (Latest Contact Info) Description 02/02/2021 Travel Social History Tobacco Use Types Packs/Day [...] COVID-19? No / Unsure 02/02/2021 1:28 PM AGRONOMIST documented as of this encounter Functional Status * Question Answer Date of Assessment Author Status Do you have serious difficulty walking or climbing stairs? Yes 02/02/2021 9:14 PM AGRONOMIST David Silva RN Active * Question Answer Date of Assessment Author Status Do you have difficulty dressing or bathing? No 02/02/2021 9:14 PM AGRONOMIST Dorina Silva RN Active Because of a physical, mental, or emotional condition, do you have difficulty doing errands alone such as visiting a doctor's office or shopping? Yes 02/02/2021 9:14 PM David Escalante RN Active * RETIRED Are you deaf or do you have serious difficulty hearing Answer Date of Assessment Author Status No 04/15/2019 3:49 PM AGRONOMIST Activ e * RETIRED Are you blind or do you have serious difficulty seeing, even when wearing glasses? Answer Date of Assessment Author Status No 04/15/2019 3:49 PM AGRONOMIST Activ e * Do you have serious difficulty walking or climbing stairs? Answer Date of Assessment Author Status No 04/15/2019 3:49 PM Katrina Navarro RN Active * Do you have difficulty dressing or bathing? Answer Date of Assessment Author Status No 04/15/2019 3:49 PM Katrina Navarro RN Active * Because of a physical, mental, or emotional condition, do you have difficulty doing errands alone such as visiting a doctor's office or shopping? Answer Date of Assessment Author Status Yes 04/15/2019 3:49 PM Katrina Navarro RN Active documented as of this encounter [...] decisions? Answer Entry Date Author Status Yes 04/15/2019 3:49 PM Katrina Navarro RN Active documented in this encounter Plan of Treatment Not on file documented as of this encounter Visit Diagnoses Not on filedocumented in this encounter Care Teams Electronic Data Interchange Specialist Relationship Specialty Start Date End Date Lauren Saba, HARDBOARD PANEL PRINTER- [address] [place] [address] PCP - General NURSE PRACTITIONER 08/27/18 documented as of this encounter
--- OUTSIDE RECORDS SUMMARY | 2024-03-22 16:48 | XMS_ITS | Encounter Summary ---
Author Organization [facility] Address [facility]. [place], [place] [id number] [place] [id number] Care Team Providers Care Vacuum Cleaner Assembler Name Role Phone Lauren Page [facility] Primary Care Provider + Reason for Referral * (Routine) - Closed Specialty Diagnoses / Procedures Referred By Contac t Referred To Contact Procedures OT eval and treat Mario Murray DO 3 [place] [address] Phone: tel: fax: Referral ID Status Reason Start Date Expiration Date Visits Re quested Visits Authorized [id number] Closed 04/15/2019 05/16/2020 1 1 CUTTER * (Routine) - Canceled Specialty Diagnoses / Procedures Referred By Contac t Referred To Contact Procedures PT eval and treat Mario Murray DO [address] [address] Phone: tel: fax: Referral ID Status Reason Start Date Expiration Date V isits Requested Visits Authorized [id number] Canceled 04/15/2019 05/16/2020 1 1 CUTTER * Imaging (Emergency) - Closed Specialty Diagnoses / Procedures Referred By Contac t Referred To Contact RADIOLOGY Procedures MRI BRAIN WWO Evens Bauer MD Referral ID Status Reason Start Date Expiration Date Visits Re quested Visits Authorized [id number] Closed 04/15/2019 05/16/2020 1 1 CUTTER * Imaging (Emergency) - Closed Specialty Diagnoses / Procedures Referred By Nicole shipley Referred To Contact RADIOLOGY Procedures CT HEAD WO CON Evens Yaens MD Referral ID Status Reason Start Date Expiration Date Visits Re quested Visits Authorized [id number] Closed 04/15/2019 05/16/2020 1 1 CUTTER Reason for Visit * Reason Comments Seizure- Prior History Of Confusion * Auth/Cert Specialty Diagnoses / Procedures Referred By Nicole shipley Referred To Contact Diagnoses Seizure (CMS/HCC HHS/HCC) Weakness of extremity Seizure (CMS/HCC) Referral ID Status Reason Start Date Expiration Date Visits Re quested Visits Authorized [id number] 1 1 Encounter Details Date Type Department Care Team (Latest Contact Info) Description 04/15/2019 10:37 AM AUTOCUTTER - 04/16/2019 1:43 PM AUTOCUTTER Hospital Encounter [facility] Telemetry Unit [facility] [place] [id number] Evens Yanes MD Kim, Michael J, MD 3 [facility] [address] [place], [place] [address] Seizure- Prior History Of; Confusion Discharge Disposition: Home or Self Care (Routine [...] on file documented as of this encounter Last Filed Vital Signs Vital Sign Reading Time Taken Comments Blood Pressure 104/74 04/16/2019 10:47 AM AUTOCUTTER Pulse 92 04/16/2019 10:47 AM AUTOCUTTER Temperature 37.1 ??C (98.7 ??F) 04/16/2019 10:[address] Respiratory Rate 22 04/16/2019 10:47 AM AUTOCUTTER Oxygen Saturation 98% 04/16/2019 10:47 AM AUTOCUTTER Inhaled Oxygen Concentration - - Weight 61.3 kg (135 lb 2.3 oz) 04/16/2019 4:22 A M AUTOCUTTER Height 165.1 cm (5' 5 ) 04/15/2019 11:25 AM AUTOCUTTER Body Mass Index 22.49 04/15/2019 11:25 AM AUTOCUTTER documented in this encounter Functional Status * Question Answer Date of Assessment Author Status Do you have serious difficulty walking or climbing stairs? No 04/15/2019 3:49 PM Seven Navarro RN Active * Question Answer Date of Assessment Author Status Do you have difficulty dressing or bathing? No 04/15/2019 3:49 PM Karen Navarro RN Active Because of a physical, mental, or emotional condition, do you have difficulty doing errands alone such as visiting a doctor's office or shopping? Yes 04/15/2019 3:49 PM Seven Navarro RN Active * RETIRED Are you deaf or do you have serious difficulty hearing Answer Date of Assessment Author Status No 04/15/2019 3:49 PM AUTOCUTTER Activ e * RETIRED Are you blind or do you have serious difficulty seeing, even when wearing glasses? Answer Date of Assessment Author Status No 04/15/2019 3:49 PM AUTOCUTTER Activ e * Do you have serious [...] difficulty concentrating, remembering, or making decisions? Yes 04/15/2019 3:49 PM Malina Navarro RN Active * Because of a physical, mental, or emotional condition, do you have serious difficulty concentrating, remembering, or making decisions? Answer Entry Date Author Status Yes 04/15/2019 3:49 PM Katrina Navarro RN Active documented in this encounter Discharge Summaries * Mario Prieto DO Terri - 04/16/2019 12:22 PM CST Discharge Summary Patricia Frost female 1980 Recommendations for PCP: None Recommendations for Specialist: Patient was started on Keppra Follow Up Appointments: PCP in one week Neurology in one week Admit Date: 04/15/2019 10:37 AM Discharge date and time: 04/16/19 Admitting Physician: Devi Marinelli MD Primary Care Physician: LAUREN PAGE [facility] Discharge Physician: Devi Marinelli MD Admission Diagnosis: Seizure (CMS/[facility]) [R56.9] Weakness of extremity [R29.898] Admission Condition: Good Discharged Condition: Fair Reason for Admission: Seizure Hospital Course: Patricia Frost is a 38-year-old female with past medical history of neurocognitive impairment, migraines, multiple sclerosis, paranoid schizophrenia, and seizures of unknown origin admitted for seizure.She received ativan from EMS and in the ED and her seizures stopped. CT of the head showed smaller than expected brain volume for age. MRI of the brain showed white matter gliosis consistent with MS, but no abnormal enhancement concerning for active disease. Neurology was consulted and began the patient on Keppra 500mg PO BID. Additionally a drowsy and awake EEG was obtain which was unremarkable.The patient was postictal on admission, but her mental status improved dramatically throughout her h ospitalization. At the time of discharge, the patient was hemodynamically stable and her questions were answered. She was given instructions to return to the hospital if she developed any new concerning symptoms such as chest pain, shortness of breath, or if she has additional seizures. Discharge Medications: Medication List START taking these medications levETIRAcetam 500 MG tablet Commonly known as: KEPPRA Take 1 tablet (500 mg total) by mouth 2 (two) times daily for 60 days. CONTINUE taking these medications ABILIFY MAINTENA 300 MG Prsy IM SYRINGE Generic drug: ARIPiprazole ER albuterol sulfate HFA 108 (90 Base) MCG/ACT inhaler baclofen 10 MG tablet Commonly known as: LIORESAL poxmfbdrmo-ymcyalslqxeol-btmuxldg 50-325-40 MG tablet Commonly known as: ESGIC erythromycin 2 % external solution escitalopram 20 MG tablet Commonly known as: LEXAPRO fluticasone propionate 50 MCG/ACT nasal spray Commonly known as: FLONASE hydrOXYzine 25 MG tablet Commonly known as: ATARAX ibuprofen 800 MG tablet Commonly known as: MOTRIN ocrelizumab 300 MG/10ML injection Commonly known as: OCREVUS onabotulinumtoxinA 100 units injection Commonly known as: BOTOX SUMAtriptan 50 MG tablet Commonly known as: IMITREX SYMBICORT 160-4.5 MCG/ACT inhaler Generic drug: budesonide-formoterol tretinoin 0.01 % gel Commonly known as: RETIN-A zonisamide 100 MG capsule Commonly known as: ZONEGRAN Where to Get Your Medications These medications were sent to [id number] - [place], [place] - [address] [facility] [address] [facility] [id number] ?? levETIRAcetam 500 MG tablet Discharge Exam: Filed Vitals: 04/16/19 0018 04/16/19 0422 04/16/19 0725 04/16/19 1047 BP: 111/68 115/77 117/74 104/74 Pulse: 69 72 88 92 Resp: Temp: 98.2 ??F (36.8 ??C) 98.3 ??F (36.8 ??C) 97.7 ??F (36.5 ??C) 98.7 ??F (37.1 ??C) TempSrc: Axillary Axillary Oral Oral SpO2: 96% 96% 97% 98% Weight: 61.3 kg (135 lb 2.3 oz) Height: Physical Exam Constitutional: She is oriented to person, place, and time and well-developed, well-nourished, and in no distress. No distress. HENT: Head: Normocephalic and atraumatic. Right Ear: External ear normal. Left Ear: External ear normal. Mouth/Throat: Oropharynx is clear and moist. No oropharyngeal exudate. Eyes: Conjunctivae are normal. Right eye exhibits no discharge. Left eye exhibits no discharge. No scleral icterus. Neck: No JVD present. No tracheal deviation present. Cardiovascular: Normal rate, regular rhythm and normal heart sounds. Exam reveals no gallop and no friction rub. No murmur heard. Pulmonary/Chest: Effort normal and breath sounds normal. No stridor. No respiratory distress. She has no wheezes. She has no rales. She exhibits no tenderness. Abdominal: Soft. Bowel sounds are normal. She exhibits no distension and no mass. There is no tenderness. There is no rebound. Musculoskeletal: She exhibits no edema, tenderness or deformity. Neurological: She is alert and oriented to person, place, and time. She exhibits normal muscle tone. Skin: Skin is warm and dry. No rash noted. She is not diaphoretic. No erythema. Psychiatric: Affect normal. Nursing note and vitals reviewed. Assessment and plan discussed with attending Dr. Marinelli. Mario Murray DO PGY-1, Family Medicine 04/16/2019 14:52 Cosigned by Devi Marinelli MD at 04/16/2019 7:01 PM AUTOCUTTER CUTTER CUTTER Associated attestation - Devi Marinelli MD - 04/16/2019 7:01 PM AUTOCUTTER I have seen and examined the patient with the resident and I agree with the findings and plan of care as documented by the resident. documented in this encounter Discharge Instructions * Discharge Instructions* Cindy Briggs RN - 04/16/2019 12:46 PM AUTOCUTTER Images from the original note were not included. Patient Education Seizures The Basics Written by the doctors and editors at [facility] What are seizures???--??Seizures are waves of abnormal electrical activity in the brain. Seizures can make you pass out, or move or behave strangely. Most seizures last only a few seconds or minutes. Epilepsy is a condition that causes people to have repeated seizures. But not everyone who has had a seizure has epilepsy. Problems such as low blood sugar or infection can also cause seizures. Otherproblems such as anxiety or fainting spells can cause events that look like seizures. What are the symptoms of a seizure???--??There are different kinds of seizures. Each causes a different set of symptoms. People who have tonic clonic or grand mal seizures often get stiff and then have jerking movements. People who have other types of seizures have less dramatic changes. For instance, some people have shaking movements in just 1 arm or in a part of their face. Other people suddenly stop responding and stare for a few seconds. Should I see a doctor or nurse if I have a seizure???--??If you have never had a seizure before andyou have one, you (or whoever is with you) should call for an ambulance (in the [place] and [place], dial9-1-1). Having a seizure can be a sign that something is wrong with your brain. How are seizures treated???--??The right treatment for seizures depends on what is causing them. Ifyou have seizures because of an infection, you will probably need treatments to get rid of the infection. On the other hand, if you have repeated seizures because of epilepsy, you will probably need anti-seizure medicines, also called anti-convulsants. People sometimes need to try different medicines before they find a treatment that works well. Seizures can be hard to control. But if you work with your doctor, chances are good that you will find atreatment that works. Do anti-seizure medicines cause side effects???--??Yes. Anti-seizure medicines can cause side effects. They can make you feel tired or clumsy, or cause other problems. If you are bothered by side effects, tell your doctor about it. He or she can work with you to find the medicine or dose that causes the fewest problems. Most of the side effects from these medicines are mild, but there are 2 rare side effects that are very serious: ?? Anti-seizure medicines can increase the risk of becoming suicidal (wanting to kill yourself). Speak to your doctor or nurse right away if you start to feel depressed or have thoughts of harming yourself. ?? Anti-seizure medicines can cause a rare but serious skin rash. Speak to your doctor or nurse right away if you notice a new rash while taking an anti-seizure medicine. What if anti-seizure medicines do not work for me???--??If you keep having seizures even after trying different medicines, you might have other options. Some people have surgery to remove the part oftheir brain that is causing seizures. Others get a device put in their chest that helps control seizures. Until you have your seizures under control, do not drive. The laws that say when a person with seizures can drive are different depending on where the person lives. Ask your doctor if you can safely drive and about the laws where you live. Also, if your seizures are not under control make sure to take other safety steps. For example, do not swim without someone else nearby who could help you if you started having a seizure. And avoid activities that could result in you falling from a height. How can I reduce my chances of having more seizures???--??You can: ?? Take your medicines exactly as directed - at the right times, and at the right doses. ?? Tell your doctor about any side effects you have. That way the 2 of you can find the best medicine for you. ?? Be careful not to let your prescription run out. (Stopping anti-seizure medicine suddenly can put you at risk of seizure.) ?? While on anti-seizure medicines, check with your doctor before starting any new medicines. Anti-seizure medicines can interact with prescription and non- prescription medicines, and with herbal drugs. Mixing them can increase side effects or make them not work as well. ?? Avoid alcohol. Alcohol can increase the risk of seizures, affect the way seizure medicines work,and increase side effects from anti-seizure medicines. What should my family members do if they see me having a seizure???--??Ask your doctor what your family members should do. Some people will have seizures from time to time, and they might not need tosee a doctor every time. But if you have a seizure that lasts longer than 5 minutes or if you do not wake up after a seizure, your family members should call for an ambulance (in the [place] and [place], dial 9-1-1). Your family members should not try to put anything in your mouth while you are having a seizure. But they should make sure you do not bang against any hard surfaces. What if I want to get ???--??If you take anti-seizure medicines, speak to your doctor or nurse before you start trying to get . Some anti- seizure medicines can hurt an unborn baby. You might need to switch medicines before you get . All topics are updated as new evidence becomes available and our peer review process is complete. This topic retrieved from [employer] on: Oct 30, 2018. Topic 15377 Version 16.0 Release: 27.3.2 - C27.227 ?2019??[employer] and/or its affiliates.??All rights reserved. Consumer Information Use and Disclaimer This information [...] or not to accept your health care provider's advice, instructions or recommendations. Only your health care provider has the knowledge and training to provide advice that is right for you.The use of [employer] content is governed by the [employer] Terms of Use. ??2019 [employer]. All rights reserved. Copyright ?2019??[employer] and/or its affiliates.??All rights reserved. Patient Education Seizures Discharge Instructions, Adult About this topic A seizure happens when your brain sends out abnormal signals through its electrical activity. It may cause shaking and fast movements that you cannot control. You will not be aware of this. A seizuremost often lasts for a few seconds to minutes and then causes you to be very tired. You may seem edmund asleep or confused during this time. In a little while, you should return to your normal self. What care is needed at home? ?? Ask your doctor what you need to do when you go home. Make sure you ask questions if you do not understand what the doctor says. This way you will know what you need to do. ?? Be sure to take all your seizure drugs. Do not skip doses. Do not suddenly stop taking these drugs. ?? Wear a medical alert ID. ?? Keep your home safe so you do not get hurt when your seizure happens. For example: ? Keep doors inside your home unlocked or unblocked. ? Carpet all floors to keep them soft in case you have a seizure and fall. ? Be careful when taking a bath. If you have a seizure while in the tub, you might drown. Showers are safer. ? Replace glass doors with safety glass. ? Replace glass dishes and glassware with plastic. ?? Wear a helmet or headgear to protect your head during riding, skiing, and other active sports. ?? Stay away from doing things that can put you or someone else in danger if you have a seizure. Tell your family, friends, and others about your health problem. If a seizure happens, tell your family and friends to: ?? Clear the area so you are not hurt ?? Place you on a flat surface ?? Not try to hold you still ?? Not put anything in your mouth ?? Turn you onto your side if you are throwing up ?? Stay with you until you are feeling better and know what happened ?? Time the seizure What follow-up care is needed? Your doctor may ask you to make visits to the office to check on your progress. Be sure to keep these visits. Your doctor may order tests, such as scans or tests of your brain's electrical activity. Be sure to keep these visits and follow up to get test results. You may have a blood test to see if the level of the seizure drug in your blood is good. What drugs may be needed? The doctor will give you a drug or drugs for your seizures. There are many kinds of these drugs. The choice will depend on what type of seizure you are having and how well the drug works for you. Will physical activity be limited? ?? You should be able to work out, dance, and play sports such as tennis, golf, bowling, and others. ?? Always have someone with you when swimming. ?? Follow laws in your area about driving with a seizure problem. ?? Talk to your doctor about the right activities for you. ?? Ask your doctor if it is safe to drive. What changes to diet are needed? ?? Do not drink beer, wine, and mixed drinks (alcohol). ?? Do not take drugs and natural products that slow your actions. What problems could happen? ?? You could fall and get hurt while having a seizure. ?? The drugs you are taking can have side effects. They can make you feel tired and even depressed. What can be done to prevent this health problem? ?? Get enough sleep. Not getting the right amount of sleep can make you more likely to have a seizure. ?? Eat regular, well-balanced meals. ?? Do not skip doses of your seizure drug. This could cause you to have a seizure. ?? Lower your stress. When do I need to call the doctor? ?? Seizures happen more often ?? Seizures are worse ?? Seizure lasts more than 5 minutes ?? Signs of low mood (depression), thoughts of killing yourself, nervousness, emotional ups and downs, thinking that is not normal, anxiety, or lack of interest in life ?? Changes in the way you act that are not like you ?? Feeling weak ?? Change in balance ?? Side effects from your drugs ?? You are not feeling better in 2 to 3 days or you are feeling worse Helpful tips ?? Do not miss doses of your seizure drugs. If you forget a dose, take it as soon as possible. If it is within a few hours of your next dose, skip it and take your next dose. ?? Do not run out of your seizure drugs. Get refills before you run out. Teach Back: Helping You Understand The Teach Back Method helps you understand the information we are giving you. The idea is simple. After talking with the staff, tell them in your own words what you were just told. This helps to makesure the staff has covered each thing clearly. It also helps to explain things that may have been abit confusing. Before going home, make sure you are able to do these: ?? I can tell you about my condition. ?? I can tell you what to do if I have a seizure. ?? I can tell you what I need to do if my seizures happen more often or last more than 5 minutes. Where can I learn more? [employer] https://familydoctor.org/condition/epilepsy/ [employer] https://www.betterhealth.nataliia.gov.au/health/ConditionsAndTreatments/epilepsy [employer] of Neurological Disorders and Stroke http://www.ninds.nih.gov/disorders/epilepsy/detail_epilepsy.htm Last Reviewed Date 2018-01-02 Consumer Information Use and Disclaimer This information [...] is right for you. Copyright Copyright ?? 2019 [employer] and its affiliates and/or licensors. All rights reserved. CUTTER documented in this encounter Medications at Time [...] times daily as needed for Pain. 04/06/2019 ocrelizumab 300 MG/10ML injection Inject 600 mg into the vein every 6 (six) months. onabotulinumtoxi nA 100 units injection Inject 200 Units into the muscle every 3 (three) months. 07/22/2018 SYMBICORT 160-4.5 MCG/ACT inhaler Inhale 2 puffs into the lungs 2 (two) times daily. 04/06/2019 tretinoin 0.01 % gel Apply topically nightly at bedtime. Pea sized amount to entire face at night. 11/14/2018 zonisamide 100 MG capsule Take 500 mg by mouth nightly. 04/06/2019 butalbital-aceta minophen-caffein e 50-325-40 MG tablet Take 1 tablet by mouth every 4 (four) hours as needed. 01/14/2018 1 hydrOXYzine 25 MG tablet Take 25 mg by mouth 2 (two) times daily as needed for Anxiety. 1 levETIRAcetam 500 MG tablet Take 1 tablet (500 mg total) by mouth 2 (two) times daily for 60 days. 120 tablet 04/16/2019 0 SUMAtriptan 50 MG tablet Take 50 mg by mouth 2 (two) times daily as needed for Migraine. 1 documented as of this encounter Progress Notes * Jackelyn Chapa, YOVANA - 04/16/2019 10:13 AM CST 04/16/19 1011 Referral Data Referral Reason Discharge Planning Source of Information Patient Patient Information Primary Caregiver Self Support System Immediate family Baseline ADL's Functional Status Independent Living Arrangements Parent Type of Residence Private residence Active DME Other (comment) (has a rollator but states doesn't use it) Bathing/Grooming Assistance No Dressing Assistance No Behavior Forgetful;Cooperative Communication Talks;Understands speaking;Understands Singaporean Anticipated Discharge Needs Change in Living Arrangements No In-Home Care or Equipment No Vocational and/or Role Loss No Inability to Complete ADL's No Anticipated DC Plan Living Arrangements Parent Support Systems Parent Type of Residence Private residence Patient expects to be discharged to: Home NCM PERFORMED BEDSIDE INTERVIEW: Support: Mother Serg Home: lives with mother in a split level home. Patient reports she does have issues with steps at times due to balance. Ambulation: Reports independent prior to admission. DME products: Reports she has a rollator but doesn't use it Medical Devices: None ADLs: Reports independent prior to admission. Drives: no Transport Home: Serg Skin/Bladder/Bowel: No deficits reported. A/O: Patient is alert and able to answer questions but is a little slow to answer and word searches. Communication: No deficits noted or reported. Home Health: States had HH a couple years ago doesn't remember name of company Occupation: None Address: Verified as accurate in chart. [facility]acy: [facility] per patient. Chart states [facility]. Clarify with patient's mother Medications: PCP: Verified as accurate in the chart. [employer] Insurance Plan: Verified as accurate in the chart. [employer]: Discharge needs: No needs identified at this time. NCM will provide discharge planning as needed and will re-evaluate based on recommendations and treatment course. CUTTER CUTTER * Dimple Garcia, PT - 04/16/2019 10:07 AM CST 04/16/19 0955 Therapy Visit Ordering Provider TERRI LAGOS [facility] ROOM A408: PT IN BED UPON THIS THERAPIST ENTRANCE TO ROOM. RECEPTIVE TO P.T. SERVICES. QUESTIONABLE HISTORIAN WITH SOME DELAYED RESPONSES. REPORTS R LEG FEELS WEAK BUT THEN STATED FURTHER IN THE CONVERSATION THAT SHE IS WALKING LIKE SHE NORMALLY DOES BUT JUST DOESN'T KNOW WHERE HER R LEGIS EXACTLY (?PROPRIOCEPTIVE DEFICIT) Reason for admission SEIZURE, CONFUSION (MRI - FOR ACUTE INFARCT) Relevant Comorbidities/ Personal Factors to PT ASTHMA, MIGRAINES, SCHIZOPHRENIA, MS, COGNITIVE AND NEUROBEHAVIOR DYSFUNCTION Verified Two Patient Identifiers Yes Patient consents to therapy Yes Acute Inpatient PT Time Calculation PT Start Time 0935 PT Stop Time 0953 PT Time Calculation (min) 18 min PT Therapy Interruption (min) 0 Precautions General Precautions Bed Alarm;Fall Risk;Seizure Instructed on Precautions Yes;Needs reinforcement and education Home Living Type of Home House Home Layout Two level (Lives in basement) Home Equipment (Reports having some kind of walking device, but doesn't use) Prior Function Level of [place] Independent with ADLs;Independent with functional transfers;Independent with ambulation Baseline Ambulation Distance/Assistance COMMUNITY AMBULATOR Fall History No Lives With Family (Mother and mother's significant other) Pain Pain No Activity Tolerance Endurance Endurance does not limit participation in activity Cognition Overall Cognitive Status Impaired Orientation Level Oriented to time;Oriented to person;Disoriented to time;Disoriented to situation Following Commands Follows multistep commands consistently Deficits Decreased awareness of deficits Other (Comment) PT STATES I KNOW THAT I AM IN [place] BUT I CAN'T REMEMBER WHERE EXACTLY. PT WAS NOT ABLE TO RECALL POSSIBLE SEIZURE REASON FOR ADMISSION. PT COULD NOT RECALL WHERE SHE HAD WORKEDPART TIME OVER THE HOLIDAYS OR WHAT SHE DID THERE. STATES SHE IS NOT WORKING NOW. Sensation Additional Comments PT DENIES ANY NUMBNESS/ TINGLING AT PRESENT Proprioception Proprioception (QUESTIONABLE DEFICITS RLE?) Overall Extremity Assessment Lower Extremity AROM WFL Lower Extremity Comment BLE MMT: HIP FLEX 4/5, KNEE EXT 4+/5, ANKLE DF 4/5; INTACT BLE HTS. MOVEMENTS R AND L APPEAR SYMMETRIC WITH FUNCITONAL TASKS Bed Mobility Supine to Sit Independent Sit to Supine Independent TRANSFERS Sit to Stand Independent Gait Gait Assistance SBA/supervision (CLOSE GUARD DUE TO RECENT SEIZURE AND ATAXIA) Assistive Device None Ambulation Distance (Feet) 240' Pattern Ataxic;R Decreased stance time;L Decreased stance time Stairs Other (Comment) DEFERRED DUE TO RECENT SEIZURE. PT DOES RESIDE IN THE BASEMENT OF HER MOTHER'S HOME. P.T. MIGHT ADDRESS AT LATER SESSION PENDING PT'S MEDICAL STATUS. Balance Sitting - Static Independent Sitting - Dynamic Independent Standing - Static Independent Standing - Dynamic SBA (CLOSE GUARD) Patient/Family Training Bed Mobility X Transfer Training X Gait Training X Precautions X Assessment Personal Factors/Comorbidities Impacting Care 3-4 personal factors/comorbidities Examination of Body Systems High (at least 4 Elements) Objectives of Body Systems Impaired ambulation;Impaired balance;Impaired stair negotiation;Decreased safe judgement;Decreased cognition Clinical Presentation of Patient Evolving and changing characteristics Complexity Level of Evaluation Moderate Prognosis Good Recommendation PT Recommendation PT during Hospitalization Plan PT Treatments/Interventions Gait Training;Therapeutic Exercises;Therapeutic Activities;Neuromuscular re-education;Patient/family training PT Frequency Daily;BID;6 times/week PT plan for next session PROGRESS GAIT DISTANCES INCORPORATING TURNS AND CHALLENGES; ADVANCE TO GAIT ON THE STAIRS PENDING MEDICAL COURSE If this is the last treatment note,it will serve as the discharge summary Yes End of Session Safety End of Session Safety Bed alarm set/activated;Call light within reach;Nursing aware of session;Transfer status education CUTTER * Susanna Guillermo OTR - 04/16/2019 9:38 AM CST 04/16/19 0900 Therapy Visit OT Received On 04/15/19 Reason for admission Seizure Comorbidities Relevant to OT neurocognitive impairment, mirgraines, MS, paranoid schizophrenia, seizures Ordering Provider DO Terri Verified Two Patient Identifiers Yes Patient consents to therapy Yes Acute Inpatient OT Time Calculation OT Start Time 0910 OT Stop Time 0920 OT Time Calculation (min) 10 min Precautions Precautions Yes/No Yes General Precautions Bed Alarm;Fall Risk;Seizure Instructed on Precautions Yes;Needs reinforcement and education Subjective Subjective Rm [id number]: Per RN, pt doing much better than yesterday. Pt in bed upon arrival, agreeable to OT eval stating I've had that a long time ago. Pt reporting They are sending me to [facility] today so we'll see how that goes. Home Living Type of Home House Home Layout Two level (Lives in basement) Bathroom Shower/Tub Walk-in shower Bathroom Toilet Standard Toilet Bathroom Equipment Grab bars in shower Bathroom Accessibility Accessible Home Equipment (Reports having some kind of walking device, but doesn't use) Prior Function Level of [place] Independent with ADLs;Independent with functional transfers;Independent with ambulation;Independent with homemaking with ambulation (Reports she does the cleaning, mother does cooking) Device used at baseline None Baseline Ambulation Distance/Assistance household and community Fall History No Lives With Family (Mother and mother's significant other) Receives Help From Family ADL Assistance Independent Homemaking Assistance Independent Comments Pt reports she has been looking for jobs throughout her days, doesn't have a car so difficult to find one. Also reports she enjoys volunteering at the [employer] in her community. Pain Pain No Activity Tolerance Endurance Endurance does not limit participation in activity Vision - Basic Assessment Current Vision Does not wear glasses Cognition Arousal/Alertness Appropriate responses to stimuli Attention Span Appears intact Memory Decreased recall of recent events Orientation Level Oriented to place;Oriented to time;Oriented to person;Disoriented to situation Following Commands Follows all commands and directions without difficulty Safety Judgment Decreased awareness of need for assistance Deficits Decreased awareness of deficits Motor Planning Appears intact Perseveration Not present Initiation Appears intact Overall Extremity Assessment Upper Extremity BUE ROM WFL; strength grossly 4/5 throughout. Hand Function Hand Dominance Right Gross Grasp Right;Left;Functional Coordination Functional Sensation Additional Comments Pt reports no numbness/tingling at this time. ADL Eating/Feeding Assistance Independent;Sitting upright in bed Grooming Assistance Independent;Sitting upright in bed Bathing Assistance Stand by;Alternating sit/stand Bathing Deficit Supervision/safety Bathing Comment Simulated sponge bath UE Dressing Assistance Independent;Sitting at EOB LE Dressing Assistance Independent;Alternating sit/stand LE Dressing Comment Pt demo's good ability/safety to doff/don socks sitting EOB, threading pants over feet. Good balance to stand to pull pants over hips. Toileting Assistance Independent Bed Mobility Supine to Sit Independent Sit to Supine Independent Functional Transfers Sit to Stand Independent Functional Mobility Pt ambulated around room with no AD, gait belt on. Close SBA/CGA for mobility as pt noted to appear slightly unsteady/ataxic at times, pt reporting This is how I always walk. Balance Sitting - Static Independent Sitting - Dynamic Independent Standing - Static Independent;SBA Standing - Dynamic SBA;CGA Assessment Occupational Profile and History Complexity Moderate (Expanded) Performance Skills Deficits Functional mobility Performance Deficit Level Low (1-3 deficits) Clinical Decision Making Moderate (min/mod modifications) Complexity Level of Evaluation Moderate Prognosis Good OT Assess/Eval Other (Comment) Pt presents s/p seizure. Pt diagnosed with paranoid schiophrenia andMS. Pt lives at home with mother and mother's significant other. Pt reports being indep with ADLs, mobility, and IADLs. Pt currently completing mobility and ADLs indep-close SBA for safety. Pt appears to be at baseline for mobility and ADLs. No further skilled OT needed. Patient/Family Training Self Cares x Transfer Training x Precautions x Other (Comment) Pt receptive to OT eval. Recommendation OT Recommendation No skilled OT;Home with assistance OT Equipment Recommended No DME Needed No Skilled OT At baseline function Plan Progress Discontinue OT If this is the last treatment note, it will serve as the discharge summary Yes End of Session Safety End of Session Safety Bed alarm set/activated;Call light within reach End of Session Comment Seizure prec's in place ELMER ADLER CUTTER CUTTER * Prachi Madrid RN - 04/16/2019 1:21 AM CST Problem: Reduced risk for falls/injury Goal: Reduced Risk of Confusion (Acute vs Chronic) Outcome: Not Progressing Note: Pt A&O 1-2 this shift. Problem: Reduced risk for falls/injury Goal: Reduced Risk for Falls/Injury Outcome: Met This Shift Note: NO falls this shift. Bed alarm on and call light within reach. Problem: Mobility - Impaired Goal: Able to achieve maximum mobility level Outcome: Met This Shift Note: Pt is one assist with gait belt. Problem: Pain - Acute Goal: Achieve acceptable pain level Outcome: Met This Shift Note: Pt denied having any pain. CUTTER documented in this encounter H&P Notes * Daniela Luna MD - 04/16/2019 1:43 PM CST REFERRED BY: Devi Marinelli MD HISTORY OF PRESENT ILLNESS: I saw patient, Patricia Frost who is a 38-year-old female who is admittedbecause of a seizure. Apparently, she had a seizure about 10 years ago and she has a history of MS.She does not know what type of seizure did she have, but it is described as a generalized tonic-clonic in the ER notes. She does not remember. She denies any headache at the present time or problem with the vision or speech, focal weakness, or tingling, numbness. She told me that for her MS, she is taking shots which she could not recall. [facility] doctor is [facility]. She also has cognitive impairment. Her urine drug screen is positive for benzos, barbs, and cannabis. Her EKG reveals a regular sinus rhythm. MRI scan revealed white matter gliosis. There is no active plaque. MEDICATIONS: Include Baclofen, Butalbital, Lexapro 20 mg, Keppra 500 mg b.i.d., Zonisamide 400 mg. She was not on Keppra, but Keppra was started at 500 mg b.i.d. here. She is on Albuterol. She is on Abilify, Sumatriptan 50 mg daily. OTHER PAST MEDICAL HISTORY: Includes migraine, schizophrenia, asthma. PERSONAL HISTORY: She does not smoke nor abuse alcohol. She states she smokes marijuana. She is disabled, that is why she does not work. NEUROLOGIC EXAMINATION: Reveals patient is alert, awake, pleasant lady who is oriented in place, person, and time. She has impaired memory. Speech is fluent and articulate. Cranial nerves II through XII are intact. She has no focal weakness. Coordination is normal on finger-nose testing. Reflexes are 2+ and symmetrical with downgoing plantars. Gait is normal. Examination of the head, neck, and spine is unremarkable. There is no Lhermitte's sign. Lastly, her blood pressure is 117/74, pulse is 88per minute. IMPRESSION: Seizure disorder, probably due to MS. At the present time, I asked the resident to start her on Keppra 500 mg b.i.d. in addition to Zonisamide, 400 mg daily. Seizure precautions are discussed in general with her. I asked her not to take a tub bath, but take a shower, not work at height and be careful near the open flame in the kitchen and not to fish or swim alone. She told me that she has no license, so she is not able to drive for the next few months, but I told her she cannot drive until she is free of seizure for 6 months. Thank you for the consult. #[id number] /NTS CUTTER * Mario Murray, DO - 04/15/2019 4:27 PM CST HISTORY AND PHYSICAL EXAM DATE: 04/15/2019 at 1600 CC: Seizure HPI: Patricia Frost is a 38-year-old female with past medical history of neurocognitive impairment, migraines, multiple sclerosis, paranoid schizophrenia, and seizures of unknown origin admitted for seizure.During this interview, the patient is unable to provide much information as she is very drowsy so most of this history was obtained from chart review, the ER physician, and the patient's family. The patient's mother and legal guardian, Serg Frost ([phone]) makes the patient's medical decision. Per the patient's mom, patient was found having seizures witnessed at home. However, EMS did witnessa seizure. Mom reports that the patient has a history of seizures but her last one was 10 years ago. She follows closely with [facility]y [facility] given her history of seizures and multiple sclerosis. REVIEW OF SYSTEMS: Review of Systems Unable to perform ROS: Acuity of condition ED COURSE: Ativan Labs CT head PAST MEDICAL HISTORY: Past Medical History: Diagnosis Date ??? Asthma ??? Cognitive and neurobehavioral dysfunction ??? Migraines ??? MS (multiple sclerosis) (CMS/HCC) ??? Paranoid schizophrenia (CMS/HCC) ??? Seizures (CMS/HCC) SURGICAL HISTORY: History reviewed. No pertinent surgical history. ALLERGIES: No Known Allergies MEDICATIONS: Prior to Admission medications Medication Sig Start Date End Date Taking? Authorizing Provider ERINN MAINTENA 300 MG Prefilled Syringe IM SYRINGE Inject 300 mg into the muscle every 28 days. 04/14/19 Yes Doc Abstract baclofen 10 MG tablet Take 10 mg by mouth 2 (two) times daily. 04/06/19 Yes Doc Abstract erythromycin 2 % external solution Apply topically 2 (two) times daily. 11/07/18 Yes Doc Abstract escitalopram 20 MG tablet Take 20 mg by mouth daily. 03/28/19 Yes Doc Abstract fluticasone propionate 50 MCG/ACT nasal spray 1 spray by Each Nostril route 2 (two) times daily as needed for Allergies. 03/29/19 Yes Doc Abstract hydrOXYzine 25 MG tablet Take 25 mg by mouth 2 (two) times daily as needed for Anxiety. Yes Doc Abstract ibuprofen 800 MG tablet Take 800 mg by mouth 2 (two) times daily as needed for Pain. 04/06/19 Yes Doc Abstract SYMBICORT 160-4.5 MCG/ACT inhaler Inhale 1 puff into the lungs 2 (two) times daily. 04/06/19 Yes DocAbstract tretinoin 0.01 % gel Apply topically nightly at bedtime. Pea sized amount to entire face at night. 11/14/18 Yes Doc Abstract zonisamide 100 MG capsule Take 400 mg by mouth daily. 04/06/19 Yes Doc Abstract albuterol sulfate HFA 108 (90 Base) MCG/ACT inhaler Inhale 2 puffs into the lungs every 4 (four) hours as needed for Shortness of breath. 03/31/19 Doc Abstract zoqugndiem-vkkmzplyyyvkf-clkrjzzm 50-325-40 MG tablet Take 1 tablet by mouth every 4 (four) hours as needed. 01/14/18 Doc Abstract ocrelizumab 300 MG/10ML injection Inject 600 mg into the vein every 6 (six) months. Doc Abstract onabotulinumtoxinA 100 units injection Inject 200 Units into the muscle every 3 (three) months. 07/22/18 Doc Abstract SUMAtriptan 50 MG tablet Take 50 mg by mouth 2 (two) times daily as needed for Migraine. Doc Abstract SOCIAL HISTORY: Social History Socioeconomic History ??? Marital status: Single Spouse name: Not on file ??? Number of children: Not on file ??? Years of education: Not on file ??? Highest education level: Not on file Occupational History ??? Not on file Social Needs ??? Financial resource strain: Not on file ??? Food insecurity: Worry: Not on file Inability: Not on file ??? Transportation needs: Medical: Not on file Non-medical: Not on file Tobacco Use ??? Smoking status: Never Smoker ??? Smokeless tobacco: Never Used Substance and Sexual Activity ??? Alcohol use: Yes Frequency: Never Comment: social ??? Drug use: Yes Types: Marijuana ??? Sexual activity: Not on file Lifestyle ??? Physical activity: Days per week: Not on file Minutes per session: Not on file ??? Stress: Not on file Relationships ??? Social connections: Talks on phone: Not on file Gets together: Not on file Attends yazidi service: Not on file Active member of club or organization: Not on file Attends meetings of clubs or organizations: Not on file Relationship status: Not on file ??? Intimate partner violence: Fear of current or ex partner: Not on file Emotionally abused: Not on file Physically abused: Not on file Forced sexual activity: Not on file Other Topics Concern ??? Not on file Social History Narrative ??? Not on file FAMILY HISTORY: Family History Problem Relation Name Age of Onset ??? Breast Cancer Maternal Aunt ? age PRIMARY CARE PROVIDER: VIPUL DINH CODE STATUS: Full Code PHYSICAL EXAM: Vitals: Blood pressure 101/83, pulse 94, temperature 97.7 ??F (36.5 ??C), temperature source Oral, resp. rate 18, height 5' 5 (1.651 m), weight 61.1 kg (134 lb 11.2 oz), SpO2 99 %, unknown if currently ., Body mass index is 22.42 kg/m??. Temp: [97.6 ??F (36.4 ??C)-97.7 ??F (36.5 ??C)] 97.7 ??F (36.5 ??C) Pulse: [67-94] 94 Resp: [16-20] 18 BP: (94-112)/(56-83) 101/83 Physical Exam Constitutional: She is well-developed, well-nourished, and in no distress. No distress. HENT: Head: Normocephalic and atraumatic. Right Ear: External ear normal. Left Ear: External ear normal. Mouth/Throat: Oropharynx is clear and moist. No oropharyngeal exudate. Eyes: Conjunctivae are normal. Right eye exhibits no discharge. Left eye exhibits no discharge. No scleral icterus. Neck: Neck supple. No JVD present. No tracheal deviation present. Cardiovascular: Normal rate, regular rhythm and normal heart sounds. Exam reveals no gallop and no friction rub. No murmur heard. Pulmonary/Chest: Effort normal and breath sounds normal. No stridor. No respiratory distress. She has no wheezes. She has no rales. She exhibits no tenderness. Abdominal: Soft. Bowel sounds are normal. She exhibits no distension and no mass. There is no tenderness. There is no rebound. Musculoskeletal: She exhibits no edema, tenderness or deformity. Neurological: She is alert. She exhibits abnormal muscle tone (Pt had spastic right arm and leg). A&O x0. Skin: Skin is warm and dry. No rash noted. She is not diaphoretic. No erythema. Psychiatric: Affect normal. Confused and drowsy. Pt would ruminate on one word and give that word as a response to each question she was asked. Nursing note and vitals reviewed. Labs: Recent Labs Lab 04/15/19 1134 WBC 18.8* RBC 4.42 HGB 12.4 HCT 38.9 MCV 88.0 MCH 28.1 MCHC 31.9* PLT 357 RDW 14.9* MPV 8.9* DTYPE MANUAL DIFFERENTIAL Recent Labs Lab 04/15/19 1134 NA 142 K 3.8 CL 111* CO2 24.3 AGAP 6.7 BUN 13 CR 0.83 BUNCREATININ 15.7 GFRNON 89* GFR >90 GLU 125* CA 8.0* Cultures: Blood: No results found for this visit on 04/15/19 (from the past 168 hour(s)). Urine: No results found for this visit on 04/15/19 (from the past 168 hour(s)). Cardiac: Results for orders placed or performed during the hospital encounter of 04/15/19 ECG 12 lead Narrative [facility] [address] Test Date: 2019-04-15 Pat Name: PATRICIA FROST Department: Room: V16004 Gender: Female Health Safety Coordinator: RONALD : 1980 Requested By: MARIO MURRAY Order Number: [id number] Reading MD: Measurements Intervals Busy Rate: 76 P: 58 WA: 152 QRS: 69 QRSD: 90 T: 67 QT: 376 QTc: 424 Interpretive Statements SINUS RHYTHM No previous ECG available for comparison Radiology studies: CT HEAD WO CON Final Result by User, [id number] (04/15 3427) EXAMINATION: CT of the head CLINICAL HISTORY: Seizure. Confusion. History of multiple sclerosis. COMPARISON: Report from outside MRI 07/15/2018. Images not available for direct comparison. TECHNIQUE: CT examination of the head without contrast was performed with axial images obtained. A dose lowering technique was used for this procedure, which may include, but is not limited to, dose reduction technique, automated exposure control, the use of iterative reconstruction, and ALARA (As Low As Reasonably Achievable) / Image Gently techniques. FINDINGS: There are confluent and patchy foci of hypoattenuation in the hemispheric white matter, presumably related to patient's history of multiple sclerosis. No acute intercranial hemorrhage, extra-axial collections, intracranial mass effect, or midline shift. No definite CT evidence of acute territorial infarction, though MRI would be more sensitive. Mild to moderate volume loss with enlargement of the ventricles and extra-axial/subarachnoid spaces, greater than expected for a patient of this age. Calvarium unremarkable. Mastoid air cells and visualized paranasal sinuses clear. Visualized orbits unremarkable. IMPRESSION: 1. No definite CT evidence of acute intracranial abnormality, as above. 2. Patchy, supratentorial white matter abnormalities, presumably related to patient's history of multiple sclerosis. 3. Volume loss, greater than expected for a patient of this age. BRAIN WWO CON (Results Pending) XR CHEST PORTABLE (Results Pending) ASSESSMENT AND PLAN: Patricia Frost is a 38-year-old female with past medical history of neurocognitive impairment, migraines, multiple sclerosis, paranoid schizophrenia, and seizures of unknown origin admitted for seizure. Seizure, acute, resolved Multiple seizures, 1 of which was witnessed by EMS, described as full body jerking with loss of control of bowels and bladder. Patient has been seizure- free for 10 years. Could be secondary to the progression of her multiple sclerosis versus iatrogenic intoxication versus metabolic causes versus inf ectious causes. Unlikely serotonin syndrome given that patient is only on Lexapro 20 mg and has been stable on that dose for quite some time. Patient had spasticity on exam, but no observed clonus. -Patient received total of 7 mg Ativan between EMS and to the emergency department -Ativan PRN for additional seizures -CMP revealed no electrolyte abnormalities -Mag normal -Salicylate, acetaminophen, and ethanol levels are all pending -TSH and CPK pending -UA was clean -MRI brain with and without contrast ordered -Head CT in the emergency department showed lower than expected brain mass for the patient's age, but no acute findings. -Neuro consult placed, recommended beginning patient on Keppra 500 mg p.o. twice daily and orderingan EEG -Patient currently taking on a Zonegran home for seizure prevention -CXR ordered -EKG normal sinus, trop pending Altered mental status, acute, unresolved During initial exam, patient A&O x0 and would ruminate on specific words. She was able to follow commands. Likely secondary to post ictal state. Patient also received 7 mg of Ativan prior to thisinterview, which could contribute to her AMS. -CT of the head was normal -No electrolyte abnormalities identified -Will continue to monitor, anticipate that AMS will resolve with time. Multiple sclerosis, chronic, unresolved Patient follows with [facility]y at [facility] -Neurology consult placed -MRI brain with and without contrast ordered -Patient family requesting [facility] to [facility] as [facility] is [facility] -Patient had spastic right upper and right lower extremities on exam. Paranoid schizophrenia, chronic, unresolved Patient on Abilify monthly injection at home -Patient due for next Abilify injection on April 16, 2019 -Spoke with pharmacy and it is not on formulary at the hospital. However, patient may receive injection if she brings medication from home and has a verified by pharmacy. Asthma, chronic, unresolved -Continue home inhalers Migraines, chronic, unresolved -Continue home Fioricet as needed Depression, chronic, unresolved Patient has been stable on home dose of Lexapro for quite some time -Continue Lexapro 20mg daily Fluids: SLIV Diet: General VTE Prophylaxis: Lovenox DISPOSITION: Pending clinical improvement Plan discussed with attending physician. MARIO MURRAY DO Family Medicine, PGY-1 Cosigned by Devi Marnielli MD at 04/15/2019 11:27 PM AUTOCUTTER CUTTER CUTTER Associated attestation - Devi Marinelli MD - 04/15/2019 11:27 PM AUTOCUTTER I have seen and examined the patient with the resident and I agree with the findings and plan of care as documented by the resident. Do not suspect serotonin syndrome, acute stroke, will await neurological evaluation. If available, will transfer to [facility] per her request as all of her care is done ther e. documented in this encounter ED Notes * Sherry Vega RN - 04/15/2019 3:19 PM CST Monitor station reports that patient is showing up on monitor CUTTER * Sherry Vega RN - 04/15/2019 2:27 PM CST Pt's family had refused for patient to have straight cath, so checked with Dr Yanes about how toobtain UA. Per Dr. Yanes = need UA due to elevated WBC. Family educated on reasoning and they are okay now with having patient catheterized intermittently. CUTTER * Sherry Vega RN - 04/15/2019 12:46 PM CST Called lab to add on test. Pt urinated all over bed again, and unable to collect enough sample for test. CUTTER * Sherry Vega RN - 04/15/2019 11:23 AM CST EMS brought patient from home, report given to medical student. Upon arrival to home patient was actively seizing, but unsure what happened. Pt is now confused, unable to follow complex commands, speech is incomprehensible and she appears agitated and confused, sitting up, moving her arms and legs,and alert. CUTTER * Evens Yanes MD - 04/15/2019 11:13 AM CST Chief Complaint Chief Complaint Patient presents with ??? Seizure- Prior History Of ??? Confusion History of Present Illness This patient presents after having to 1 to 2-minute long seizures. The patient was given Valium 5 mg by EMS and brought into the emergency department. The patient has a history of seizure disorder. She also has a history of MS. Full history was unable to be obtained because the patient is confused. Medical History ALLERGIES: No Known Allergies MEDICATIONS: Prior to Admission medications Medication Sig Start Date End Date Taking? Authorizing Provider ERINN MAINTENA 300 MG Prefilled Syringe IM SYRINGE Inject 300 mg into the muscle every 28 days. 04/14/19 Yes Doc Abstract baclofen 10 MG tablet Take 10 mg by mouth 2 (two) times daily. 04/06/19 Yes Doc Abstract erythromycin 2 % external solution Apply topically 2 (two) times daily. 11/07/18 Yes Doc Abstract escitalopram 20 MG tablet Take 20 mg by mouth daily. 03/28/19 Yes Doc Abstract fluticasone propionate 50 MCG/ACT nasal spray 1 spray by Each Nostril route 2 (two) times daily as needed for Allergies. 03/29/19 Yes Doc Abstract hydrOXYzine 25 MG tablet Take 25 mg by mouth 2 (two) times daily as needed for Anxiety. Yes Doc Abstract ibuprofen 800 MG tablet Take 800 mg by mouth 2 (two) times daily as needed for Pain. 04/06/19 Yes Doc Abstract SYMBICORT 160-4.5 MCG/ACT inhaler Inhale 1 puff into the lungs 2 (two) times daily. 04/06/19 Yes DocAbstract tretinoin 0.01 % gel Apply topically nightly at bedtime. Pea sized amount to entire face at night. 11/14/18 Yes Doc Abstract zonisamide 100 MG capsule Take 400 mg by mouth daily. 04/06/19 Yes Doc Abstract albuterol sulfate HFA 108 (90 Base) MCG/ACT inhaler Inhale 2 puffs into the lungs every 4 (four) hours as needed for Shortness of breath. 03/31/19 Doc Abstract lxrwhbpkkd-wqolqsputrvgd-gfvdtyxp 50-325-40 MG tablet Take 1 tablet by mouth every 4 (four) hours as needed. 01/14/18 Doc Abstract ocrelizumab 300 MG/10ML injection Inject 600 mg into the vein every 6 (six) months. Doc Abstract onabotulinumtoxinA 100 units injection Inject 200 Units into the muscle every 3 (three) months. 07/22/18 Doc Abstract SUMAtriptan 50 MG tablet Take 50 mg by mouth 2 (two) times daily as needed for Migraine. Doc Abstract PAST MEDICAL HISTORY: Past Medical [...] Substance Use Topics ??? Alcohol use: Yes Frequency: Never Comment: social ??? Drug use: Yes Types: Marijuana Review of Systems Review of Systems Unable to perform ROS: Mental status change Physical Exam Filed Vitals: 04/15/19 1300 04/15/19 1330 04/15/19 1400 04/15/19 1430 BP: 99/62 94/56 112/63 101/74 Pulse: 67 69 70 91 Resp: 18 20 16 16 Temp: TempSrc: SpO2: 100% 100% 98% 100% Weight: Height: Physical Exam Constitutional: No distress. HENT: Head: Normocephalic. Eyes: Conjunctivae are normal. Cardiovascular: Normal rate and normal heart sounds. Pulmonary/Chest: Effort normal and breath sounds normal. Abdominal: Soft. She exhibits no distension. There is no tenderness. Neurological: She is alert. Oriented x0, left eyelid droop, 0 out of 5 strength to right upper and right lower extremity, otherthan the eyelid droop the patient has normal cranial nerve function. Left upper and left lower extremity +5 strength Skin: Skin is warm and dry. She is not diaphoretic. Psychiatric: She has a normal mood and affect. Diagnostic Studies / Procedures ELECTROCARDIOGRAMS: No results found for this visit on 04/15/19. LABORATORY STUDIES: Results for orders placed or performed during the hospital encounter of 04/15/19 CBC W/DIFF AUTOMATED Result Value Ref Range WBC 18.8 (H) 4.5 - 11.0 x10'3/uL RBC 4.42 4.20 - 5.40 x10'6/uL HGB 12.4 12.0 - 16.0 G/DL HCT 38.9 38.0 - 48.0 % MCV 88.0 81.0 - 99.0 FL MCH 28.1 27.0 - 31.0 PG MCHC 31.9 (L) 32.0 - 36.0 G/DL RDW 14.9 (H) 11.5 - 14.5 % PLT 357 130 - 400 x10'3/uL MPV 8.9 (L) 9.3 - 12.2 FL DIFFERENTIAL TYPE MANUAL DIFFERENTIAL SEG NEUTROPHILS 92 % LYMPHOCYTES 2 % MONOCYTES 4 % EOSINOPHILS 2 % ABS. NEUTROPHIL COUNT 17.30 (H) 1.80 - 7.70 x10'3/uL ABS.LYMPHOCYTES CALCULATED 0.38 (L) 1.00 - 4.80 x10'3/uL ABS. MONOCYTES CALCULATED 0.75 0.24 - 0.86 x10'3/uL ABS. EOSINOPHIL CALCULATED 0.38 (H) 0.04 - 0.36 x10'3/uL RBC MORPHOLOGY RBC MORPHOLOGY APPEARS NORMAL. SLIDE REVIEWED. PLT EST. ADEQUATE BASIC METABOLIC PANEL Result Value Ref Range GLUCOSE 125 (H) 70 - 99 MG/DL BUN 13 7 - 18 MG/DL CREATININE 0.83 0.55 - 1.02 MG/DL SODIUM 142 136 - 145 MMOL/L POTASSIUM 3.8 3.5 - 5.1 MMOL/L CHLORIDE 111 (H) 100 - 108 MMOL/L CO2 24.3 21 - 32 MMOL/L CALCIUM 8.0 (L) 8.5 - 10.1 MG/DL ANION GAP 6.7 5 - 15 MMOL/L BUN CREATININE RATIO 15.7 6 - 26 eGFR Non-Afr. Amer. 89 (L) >90 ML/MIN/1.73 M2 eGFR Afr. Amer. >90 >90 ML/MIN/1.73 M2 URINALYSIS Result Value Ref Range Specimen Type URINE CLEAN CATCH COLOR YELLOW TRANSPARENCY CLOUDY Specific [place] (U) 1.015 1.001 - 1.030 U PH 7.0 5.0 - 9.0 LEUKOCYTE ESTERASE NEGATIVE NEGATIVE NITRITES NEGATIVE NEGATIVE PROTEIN, URINE NEGATIVE <30 MG/DL URINE GLUCOSE NEGATIVE NEGATIVE MG/DL U KETONES 20 (A) NEGATIVE MG/DL UROBILINOGEN NEGATIVE NEGATIVE MG/DL Urine Bilirubin NEGATIVE NEGATIVE MG/DL BLOOD NEGATIVE NEGATIVE CULTURE & SENSITIVITY INDICATED? CULTURE IS NOT INDICATED CHORIONIC GONADOTROPIN HCG QL Result Value Ref Range PREG SCREEN-SERUM NEGATIVE POCT glucose Result Value Ref Range GLUCOSE POC 136 (H) 70 - 99 mg/dL IMAGING STUDIES CT HEAD WO CON Final Result by User, [id number] (04/15 6482) EXAMINATION: CT of the head CLINICAL HISTORY: Seizure. Confusion. History of multiple sclerosis. COMPARISON: Report from outside MRI 07/15/2018. Images not available for direct comparison. TECHNIQUE: CT examination of the head without contrast was performed with axial images obtained. A dose lowering technique was used for this procedure, which may include, but is not limited to, dose reduction technique, automated exposure control, the use of iterative reconstruction, and ALARA (As Low As Reasonably Achievable) / Image Gently techniques. FINDINGS: There are confluent and patchy foci of hypoattenuation in the hemispheric white matter, presumably related to patient's history of multiple sclerosis. No acute intercranial hemorrhage, extra-axial collections, intracranial mass effect, or midline shift. No definite CT evidence of acute territorial infarction, though MRI would be more sensitive. Mild to moderate volume loss with enlargement of the ventricles and extra-axial/subarachnoid spaces, greater than expected for a patient of this age. Calvarium unremarkable. Mastoid air cells and visualized paranasal sinuses clear. Visualized orbits unremarkable. IMPRESSION: 1. No definite CT evidence of acute intracranial abnormality, as above. 2. Patchy, supratentorial white matter abnormalities, presumably related to patient's history of multiple sclerosis. 3. Volume loss, greater than expected for a patient of this age. BRAIN WWO CON (Results Pending) ED Course / Medical Decision Making MDM Number of Diagnoses or Management Options Seizure (CMS/HCC): Weakness of extremity: Diagnosis management comments: This patient presented with 2 episodes of seizures today. She has not had a seizure in 10 years. Patient also has 0 out of 5 strength on her right side. That is new today. 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 Even if this is a CVA, the patient is not a thrombolytic candidate. 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 I discussed the case with the patient's neurologist. She recommended getting an MRI with and without contrast. The patient is going to be transferred to [facility] but they do not have any beds until tomorrow. As result the patient will be admitted here for further management. The patient was combative when she got here and had to be given Ativan. The patient does have an elevated white blood cell count which I believe is most likely due to demargination. I do not believe that she has a bacterial infection. Clinical Impression Seizure (CMS/HCC) (Primary) Weakness of extremity Disposition: Admit Evens Yanes MD 04/15/19 1506 CUTTER * Leah Richter RN - 04/15/2019 10:37 AM CST Bed: 17 Expected date: Expected time: Means of arrival: Comments: 1241 CUTTER documented in this encounter Plan of Treatment Not on file documented as of this encounter Procedures Procedure Name Priority Date/Time Associated Diagnosis Comments XR CHEST PORTABLE Today 04/16/2019 7:5 3 AM AUTOCUTTER CBC W/DIFF AUTOMATED Routine 04/16/2019 4:45 AM AUTOCUTTER TROPONIN, QUANT TIMED 04/16/2019 12:06 AM AUTOCUTTER ECG 12-LEAD STAT 04/15/2019 10:23 PM AUTOCUTTER TROPONIN, QUANT TIMED 04/15/2019 9:05 PM AUTOCUTTER MRI BRAIN WWO CON STAT 04/15/2019 8:3 6 PM AUTOCUTTER ECG 12-LEAD Routine 04/15/2019 7:49 PM AUTOCUTTER EEG SLEEP DEPRIVED Routine 04/15/2019 7: 00 PM AUTOCUTTER TSH W/REFLEX Routine 04/15/2019 6:05 PM AUTOCUTTER TROPONIN, QUANT STAT 04/15/2019 6:05 PM AUTOCUTTER SALICYLATE Routine 04/15/2019 6:05 PM AUTOCUTTER ETHANOL Routine 04/15/2019 6:05 PM AUTOCUTTER CK (CPK) Routine 04/15/2019 6:05 PM AUTOCUTTER ACETAMINOPHEN Routine 04/15/2019 6:05 PM AUTOCUTTER ECG 12-LEAD Routine 04/15/2019 4:46 PM AUTOCUTTER DRUG SCREEN RAPID Routine 04/15/2019 2:4 2 PM AUTOCUTTER HC URINALYSIS AUTO W/O MICRO STAT 04/15/2019 2:[address] HEAD WO CON STAT 04/15/2019 1:37 PM AUTOCUTTER BASIC METABOLIC PANEL STAT 04/15/2019 11:34 AM AUTOCUTTER CHORIONIC GONADOTROPIN HCG QL STAT 04/15/2019 11:34 AM AUTOCUTTER CBC W/DIFF AUTOMATED STAT 04/15/2019 11:34 AM AUTOCUTTER MAGNESIUM Routine 04/15/2019 11:34 AM AUTOCUTTER POCT GLUCOSE - CABRERA DOCKED DEVICE Routine 04/15/2019 11:32 AM AUTOCUTTER documented in this encounter Results * XR CHEST PORTABLE (04/16/2019 7:53 AM AUTOCUTTER) Anatomical Region Laterality Modality Chest Radiographic Alannah ging 04/16/2019 8:04 AM AUTOCUTTER Impressions 04/16/2019 8:04 AM AUTOCUTTER IMPRESSION: Negative chest Narrative 04/16/2019 8:04 AM AUTOCUTTER SINGLE VIEW OF THE CHEST Clinical history: Seizure Comparison: None A single view of the chest demonstrates The cardiac silhouette, mediastinal contours, and pulmonary vessels appear normal. ??The Lungs are clear. No consolidations or effusions are seen. Procedure Note Thomas Rogers MD - 04/16/2019 SINGLE VIEW OF THE CHEST Clinical history: Seizure Comparison: None A single view of the chest demonstrates The cardiac silhouette,mediastinal contours, and pulmonary vessels appear normal. The Lungs are clear. No consolidations or effusions are seen. IMPRESSION: Negative chest Mario Murray DO GENERAL IMAGING Final Result * (ABNORMAL) CBC W/DIFF AUTOMATED (04/16/2019 4:45 AM AUTOCUTTER) WBC 13.9(H) 4.5 - 11.0 x10'3/uL 04/16/2019 7:14 AM AUTOCUTTER [facility] RBC 4.99 4.20 - 5.40 x10'6/uL 04/16/2019 7:14 AM AUTOCUTTER [facility] HGB 13.5 12.0 - 16.0 G/DL 04/16/2019 7:14 AM [facility] HCT 43.3 38.0 - 48.0 % 04/16/2019 7:14 AM [facility] MCV 86.8 80.0 - 94.0 FL 04/16/2019 7:14 AM [facility] MCH 27.1 27.0 - 31.0 PG 04/16/2019 7:14 AM [facility] MCHC 31.2(L) 32.0 - 36.0 G/DL 04/16/2019 7:14 AM [facility] RDW 15.2(H) 11.5 - 14.5 % 04/16/2019 7:14 AM [facility] PLT 395 130 - 400 x10'3/uL 04/16/2019 7:14 AM [facility] MPV 9.2(L) 9.3 - 12.2 FL 04/16/2019 7:14 AM [facility] DIFFERENTIAL TYPE AUTOMATED DIFFERENTIAL 04/16/2019 7:14 AM [facility] NEUTROPHILS % 76.3 % 04/16/2019 7:14 AM [facility] LYMPHOCYTES % 12.0 % 04/16/2019 7:14 AM [facility] MONOCYTES % 7.9 % 04/16/2019 7:14 AM [facility] EOSINOPHILS 2.8 % 04/16/2019 7:14 AM [facility] BASOPHILS 0.6 % 04/16/2019 7:14 AM [facility] IMMATURE GRANS % 0.4 % 04/16/19 20 7:14 AM [facility] ABS. NEUTROPHILS TOTAL 10.63(H) 1.80 - 7.70 x10'3/uL 04/16/2019 7:14 AM [facility] ABS. LYMPHOCYTES 1.67 1.00 - 4.80 x10'3/uL 04/16/2019 7:14 AM AUTOCUTTER [facility] ABS. MONOCYTES 1.10(H) 0.24 - 0.86 x10'3/uL 04/16/2019 7:14 AM AUTOCUTTER [facility] ABS. EOSINOPHILS 0.39(H) 0.04 - 0.36 x10'3/uL 04/16/2019 7:14 AM AUTOCUTTER [facility] ABS. BASOPHILS 0.09(H) 0.01 - 0.08 x10'3/uL 04/16/2019 7:14 AM AUTOCUTTER [facility] ABS. IMMATURE GRANULOCYTES 0.06 0.00 - 0.49 x10'3/uL 04/16/2019 7:14 AM AUTOCUTTER [facility] 04/16/2019 4:45 AM AUTOCUTTER Mario Murray DO LABORATORY Final Result [facility] [address] [place] [address], * (ABNORMAL) TROPONIN, QUANT (04/16/2019 12:06 AM AUTOCUTTER) TROPONIN I 0.073() <0.045 ng/mL. 04/16/2019 1:14 AM AUTOCUTTER [facility] Comment: HIGH DOSES OF BIOTIN MAY INTERFERE WITH THIS TEST RESULT. CORRELATION TO CLINICAL HISTORY AND PRESENTATION RECOMMENDED. 04/16/2019 12:0 6 AM AUTOCUTTER Devi Marinelli MD LABORATORY Final Result [facility] [address] [place] [id number] [phone] * ECG 12 lead (04/15/2019 10:23 PM AUTOCUTTER) 04/15/2019 10:2 3 PM AUTOCUTTER Narrative [facility] ([facility] - 04/16/2019 8:37 PM AUTOCUTTER ?[facility] [place] ? [address] [place] ? Test Date: ?2019-04-15 Pat Name: ? PATRICIA FROST ?Department: ? Room: ? [id number] Gender: ? Female ? Health Safety Coordinator: ?? CH : ?1980 ? Requested By: DEVI MARINELLI Order Number: [id number] ? Reading MD: ?? [place] Tavera ? Measurements Intervals ?Busy ? Rate: ? 65 ? P: ?59 WA: ? 162 ?QRS: ?73 QRSD: ? 86 ? T: ?67 QT: ? 397 ? QTc: ?414 ? Interpretive Statements SINUS RHYTHM WITH MARKED SINUS ARRHYTHMIA Compared to ECG 04/15/2019 19:49:00 No significant changes CUTTER Procedure Note [place] Tavera MD - 04/16/2019 [facility] [address] Test Date: 2019-04-15 Pat Name: PATRICIA FROST Department: Room: Q76581 Gender: Female Health Safety Coordinator: : 1980 Requested By: DEVI MARINELLI Order Number: [id number] Andrew MD: [place] Tavera Measurements Intervals Busy Rate: 65 P: 59 WA: 162 QRS: 73 QRSD: 86 T: 67 QT: 397 QTc: 414 Interpretive Statements SINUS RHYTHM WITH MARKED SINUS ARRHYTHMIA Compared to ECG 04/15/2019 19:49:00 No significant changes CUTTER us Devi Marinelli MD ECG ORDERABLES Final Result [facility] * (ABNORMAL) TROPONIN, QUANT (04/15/2019 9:05 PM AUTOCUTTER) TROPONIN I 0.092(HH) <0.045 ng/mL. 04/15/2019 10:08 PM AUTOCUTTER [facility] Comment: HIGH DOSES OF BIOTIN MAY INTERFERE WITH THIS TEST RESULT. CORRELATION TO CLINICAL HISTORY AND PRESENTATION RECOMMENDED. 04/15/2019 9:05 PM AUTOCUTTER us Devi Marinelli MD LABORATORY Final Result [facility] [address] [place] [address], * MRI BRAIN WWO CON (04/15/2019 8:36 PM AUTOCUTTER) Anatomical Region Laterality Modality Head Magnetic Resonan ce 04/15/2019 9:03 PM AUTOCUTTER Impressions 04/15/2019 9:11 PM AUTOCUTTER =====IMPRESSION:===== 1. Extensive periventricular and subcortical white matter gliosis in keeping with stated history of MS. No abnormal enhancement to suggest active disease. 2. Associated brain atrophy. 3. No evidence of acute infarct. Narrative 04/15/2019 9:11 PM AUTOCUTTER EXAMINATION: MRI brain with/without contrast. EXAM DATE/TIME: 04/15/2019 8:13 PM REASON FOR EXAM: ??Multiple sclerosis, new neurological event ? COMPARISON: Seizure activity today. Altered mental status with slurred speech, combative, unable to follow commands. History of MS. TECHNIQUE: Multiplanar, multisequence imaging of the brain is obtained before and after uneventful intravenous administration of 12 mL Dotarem contrast. FINDINGS: There is no abnormal increased signal on diffusion-weighted imaging to suggest acute infarction. The ventricles and sulci are mildly and symmetrically prominent. There are no extra-axial fluid collections. Major intracranial intravascular flow voids are present. Confluent areas of periventricular and subcortical white matter T2 and FLAIR hyperintense signal are noted in keeping with patient's history of multiple sclerosis. Postcontrast imaging shows no evidence of enhancing plaque to suggest active disease. Other portions of the brain and extra-axial spaces also show no abnormal enhancement. There is no intracranial hemorrhage. Sella and suprasellar regions are unremarkable. Paranasal sinuses are clear. Mastoid air cells are clear. Orbital contents are unremarkable. Procedure Note Venu Kelley MD - 04/15/2019 EXAMINATION: MRI brain with/without contrast. EXAM DATE/TIME: 04/15/2019 8:13 PM REASON FOR EXAM: Multiple sclerosis, new neurological event COMPARISON: Seizure activity today. Altered mental status with slurred speech, combative, unable to follow commands. History of MS. TECHNIQUE: Multiplanar, multisequence imaging of the brain is obtained before and after uneventful intravenous administration of 12 mL Dotarem contrast. FINDINGS: There is no abnormal increased signal on diffusion-weighted imaging to suggest acute infarction. The ventricles and sulci are mildly and symmetrically prominent. There are no extra-axial fluid collections. Major intracranial intravascular flow voids are present. Confluent areasof periventricular and subcortical white matter T2 and FLAIR hyperintense signal are noted in keeping with patient's history of multiplesclerosis. Postcontrast imaging shows no evidence of enhancing plaque to suggest active disease. Other portions of the brain and extra-axial spaces also show no abnormal enhancement. There is no intracranial hemorrhage. Sella and suprasellar regions are unremarkable. Paranasal sinuses are clear. Mastoid air cells are clear. Orbital contents are unremarkable. =====IMPRESSION:===== 1. Extensive periventricular and subcortical white matter gliosis in keeping with stated history of MS. No abnormal enhancement to suggest active disease. 2. Associated brain atrophy. 3. No evidence of acute infarct. Evens Yanes MD MRI Final Result * ECG 12 lead (04/15/2019 7:49 PM AUTOCUTTER) 04/15/2019 7:49 PM AUTOCUTTER Narrative [facility] - 04/15/2019 10:06 PM AUTOCUTTER ?[facility] [place] ? [address] [place] ? Test Date: ?2019-04-15 Pat Name: ? PATRICIA FROST ?Department: ? Room: ? [id number] Gender: ? Female ? Health Safety Coordinator: ?? CH : ?1980 ? Requested By: MIN PAUL Order Number: [id number] ? Reading MD: ?? [place] Ayse ? Measurements Intervals ?Busy ? Rate: ? 81 ? P: ?55 WA: ? 159 ?QRS: ?69 QRSD: ? 90 ? T: ?65 QT: ? 373 ? QTc: ?435 ? Interpretive Statements SINUS RHYTHM Compared to ECG 04/15/2019 16:46:04 No significant changes CUTTER Procedure Note [place] Tavera MD - 04/15/[address] [place] Test Date: 2019-04-15 Pat Name: PATRICIA FROST Department: Room: [facility] Gender: Female Health Safety Coordinator: : 1980 Requested By: MIN PAUL Order Number: [id number] Reading MD: [place] Tavera Measurements Intervals Busy Rate: 81 P: 55 WA: 159 QRS: 69 QRSD: 90 T: 65 QT: 373 QTc: 435 Interpretive Statements SINUS RHYTHM Compared to ECG 04/15/2019 16:46:04 No significant changes CUTTER us Min Paul MD ECG ORDERABLES Final Result [facility] * EEG awake or drowsy routine (04/15/2019 7:00 PM AUTOCUTTER) 04/15/2019 7:00 PM AUTOCUTTER Narrative ESCRIPTION - 04/16/2019 10:30 AM AUTOCUTTER REFERRED BY: ??Daniela Luna MD CLINICAL HISTORY: ??Seizure. LOG NUMBER: ??[id number]. This is a routine 20-channel digital EEG. ??The background consists of fairly well-formed 8-10 Hz alpha activity with some intermixed low voltage faster activity. ??Initially, there is some amount of theta range activity with voltage attenuation of the background activity probably representing drowsiness. ??The record is symmetrical with no focal or paroxysmal features. ??No activation procedure performed. IMPRESSION: ??Normal awake and drowsy record. D: ??04/15/2019 07:00 PM #[id number] T: ??04/15/2019 07:15 PM /NTS Mario Murray DO NEUROLOGY ORDERABLES Final Resu lt Performing Organization Address [facility] Co de Phone Number ESCRIPTION * (ABNORMAL) TROPONIN, QUANT (04/15/2019 6:05 PM AUTOCUTTER) TROPONIN I 0.076(HH) <0.045 ng/mL. 04/15/2019 7:26 PM AUTOCUTTER [facility] Comment: DAYO CALLED CRITICAL RESULTS AT 15Apr2019 TO AND READ BACK BY PRACHI FARR HIGH DOSES OF BIOTIN MAY INTERFERE WITH THIS TEST RESULT. CORRELATION TO CLINICAL HISTORY AND PRESENTATION RECOMMENDED. 04/15/2019 6:05 PM AUTOCUTTER Mario Murray DO LABORATORY Final Result Performing Organization Address [facility] Co de Phone Number [facility] [address] [place] [address], [place] [phone] * (ABNORMAL) CK (CPK) (04/15/2019 6:05 PM AUTOCUTTER) CPK 241(H) 21 - 215 U/L 04/15/2019 7:27 PM AUTOCUTTER [facility] 04/15/2019 6:05 PM AUTOCUTTER Mario Murray DO LABORATORY Final Result Performing Organization Address [facility] de Phone Number [facility] [address] [place] [address], * ETHANOL (04/15/2019 6:05 PM AUTOCUTTER) ALCOHOL S/P/B <0.003 <0.003 G/DL 04/15/2019 7:27 PM AUTOCUTTER [facility] 04/15/2019 6:05 PM AUTOCUTTER Mario Murray DO LABORATORY Final Result Performing Organization Address [facility] de Phone Number [facility] [address] [place] [phone], * (ABNORMAL) ACETAMINOPHEN (04/15/2019 6:05 PM AUTOCUTTER) ACETAMINOPHEN S/P/B 6.8(L) 10.0 - 30.0 MCG/ML 04/15/2019 7:27 PM AUTOCUTTER [facility] Comment: ?THERAPEUTIC: 10-30 ?TOXIC: >200 04/15/2019 6:05 PM AUTOCUTTER us Mario Murray DO LABORATORY Final Result Performing Organization Address [facility] Co de Phone Number [facility] [address] [place] [address], * SALICYLATE (04/15/2019 6:05 PM AUTOCUTTER) SALICYLATES 5.7 2.8 - 20.0 MG/DL 04/15/2019 7:16 PM AUTOCUTTER [facility] Comment: THERAPEUTIC: ?2.8-20.0 Toxic Level: ?>=30 04/15/2019 6:05 PM AUTOCUTTER Mario Murray DO LABORATORY Final Result Performing Organization Address [facility] de Phone Number [address] [address], * TSH W/REFLEX (04/15/2019 6:05 PM AUTOCUTTER) [facility] TSH 1.270 0.358 - 3.74 uIU/ML 04/15/2019 7:27 PM AUTOCUTTER [facility] Comment: HIGH DOSES OF BIOTIN MAY INTERFERE WITH THIS TEST RESULT. CORRELATION TO CLINICAL HISTORY AND PRESENTATION RECOMMENDED. FREE T4 NOT INDICATED 04/15/2019 6:05 PM AUTOCUTTER Mario Murray DO LABORATORY Final Result Performing Organization Address [facility] de Phone Number [address] [address], * ECG 12 lead (04/15/2019 4:46 PM AUTOCUTTER) 04/15/2019 4:46 PM AUTOCUTTER Narrative [facility] ([facility] RAD - 04/15/2019 10:06 PM AUTOCUTTER ?[facility] ? [address] ID ? Test Date: ?2019-04-15 Pat Name: ? PATRICIA FROST ?Department: ? Room: ? [id number] Gender: ? Female ? Health Safety Coordinator: ?? CDN : ?1980 ? Requested By: MARIO MURRAY Order Number: [id number] ? Reading MD: ?? [place] Ayse ? Measurements Intervals ?Busy ? Rate: ? 76 ? P: ?58 WA: ? 152 ?QRS: ?69 QRSD: ? 90 ? T: ?67 QT: ? 376 ? QTc: ?424 ? Interpretive Statements SINUS RHYTHM No previous ECG available for comparison CUTTER Procedure Note [place] Tavera MD - 04/15/[address] Test Date: 2019-04-15 Pat Name: PATRICIA FROST Department: Room: [id number] Gender: Female Health Safety Coordinator: RONALD : 1980 Requested By: MARIO MURRAY Order Number: [id number] Reading MD: [place] Tavera Measurements Intervals Busy Rate: 76 P: 58 WA: 152 QRS: 69 QRSD: 90 T: 67 QT: 376 QTc: 424 Interpretive Statements SINUS RHYTHM No previous ECG available for comparison CUTTER Mario Murray DO ECG ORDERABLES Final Result Performing Organization Address City/State/[facility] Co de Phone Number [facility] ([facility]) RAD * (ABNORMAL) DRUG SCREEN RAPID (04/15/2019 2:42 PM AUTOCUTTER) [facility] AMPHETAMINE (U) NEGATIVE NEGATIVE 0 10:05 PM AUTOCUTTER [facility] BARBITURATES SCREEN (U) POSITIVE(A) NEGATIVE 04/15/2019 10:05 PM AUTOCUTTER [facility] BENZODIAZEPINES SCREEN (U) POSITIVE(A) NEGATIVE 04/15/2019 10:05 PM AUTOCUTTER [facility] CANNABINOIDS SCREEN (U) POSITIVE(A) NEGATIVE 04/15/2019 10:05 PM AUTOCUTTER [facility] COCAINE METABOLITES (U) NEGATIVE NEGATIVE 04/15/2019 10:05 PM AUTOCUTTER [facility] METHADONE (U) NEGATIVE NEGATIVE 04/15/2019 10:05 PM [facility] OPIATE SCREEN (U) NEGATIVE NEGATIVE 020 10:05 PM [facility] PHENCYCLIDINE PCP (U) NEGATIVE NEGATIVE 04/15/2019 10:05 PM [facility] Comment: NOTE: RESULTS OF THIS DRUG SCREEN SHOULD BE USED FOR MEDICAL PURPOSES ONLY AND NOT FOR LEGAL OR EMPLOYMENT PURPOSES. POSITIVE RESULTS ARE NOT CONFIRMED. MEDICATIONS CONTAINING EPHEDRINE MAY CAUSE FALSE POSITIVE AMPHETAMINE CALL , LAB, TO REQUEST CONFIRMATION TESTING. IF CREATININE IS <40 mg/dL. ??RECOLLECTION IS SUGGESTED. AMPHETAMINE- ?500 NG/ML BARBITURATE- ?200 NG/ML BENZODIAZEPINES- ??200 NG/ML THC- ? 50 NG/ML COCAINE- ?150 NG/ML METHADONE- ?300 NG/ML OPIATE- ? 300 MG/ML PCP- ? 25 NG/ML CREATININE (U) 170.0 28 - 217 MG/DL 04/15/2019 10:05 PM [facility] Urine specimen (specimen) URINE SPECIMEN / Unknown 04/15/2019 2:42 PM AUTOCUTTER Dorina Maurice MD URINE ORDERABLES Final Result [facility] [address] [place] [address], * (ABNORMAL) URINALYSIS (04/15/2019 2:42 PM AUTOCUTTER) SPECIMEN TYPE URINE CLEAN CATCH 04/15/2019 2:35 PM [facility] COLOR (U) YELLOW 04/15/2019 3:03 PM [facility] TRANSPARENCY CLOUDY 04/15/2019 3:03 PM [facility] SPECIFIC GRAVITY (U) 1.015 1.001 - 1.030 04/15/2019 3:03 PM [facility] U PH 7.0 5.0 - 9.0 04/15/2019 3:03 PM [facility] LEUKOCYTES (U) NEGATIVE NEGATIVE 04/15/2019 3:03 PM [facility] NITRITES NEGATIVE NEGATIVE 04/15/2019 3:03 PM [facility] PROTEIN (U) NEGATIVE <30 MG/DL 04/15/2019 3:03 PM [facility] URINE GLUCOSE NEGATIVE NEGATIVE MG/DL 04/15/2019 3:03 PM [facility] KETONES MG/DL (U) 20(A) NEGATIVE MG/DL 04/15/2019 3:03 PM [facility] UROBILINOGEN NEGATIVE NEGATIVE MG/DL 04/15/2019 3:03 PM [facility] BILIRUBIN (U) NEGATIVE NEGATIVE MG/DL 04/15/2019 3:03 PM [facility] BLOOD (U) NEGATIVE NEGATIVE 04/15/2019 3:03 PM [facility] CULTURE & SENSITIVITY INDICATED? CULTURE IS NOT INDICATED 04/15/2019 3:03 PM [facility] URINE SPECIMEN OBTAINED BY CLEAN CATCH PROCEDURE / Unknown 04/15/2019 2:42 PM AUTOCUTTER us Evens Yanes MD URINE ORDERABLES Final Result [facility] [address] [place] [address], [place] [phone] * CT HEAD WO CON (04/15/2019 1:37 PM AUTOCUTTER) Anatomical Region Laterality Modality Head Computed Tomogra phy 04/15/2019 1:36 PM AUTOCUTTER Impressions 04/15/2019 1:38 PM AUTOCUTTER IMPRESSION: 1. No definite CT evidence of acute intracranial abnormality, as above. 2. Patchy, supratentorial white matter abnormalities, presumably related to patient's history of multiple sclerosis. 3. Volume loss, greater than expected for a patient of this age. Narrative 04/15/2019 1:38 PM AUTOCUTTER EXAMINATION: CT of the head CLINICAL HISTORY: Seizure. Confusion. History of multiple sclerosis. COMPARISON: Report from outside MRI 07/15/2018. Images not available for direct comparison. TECHNIQUE: CT examination of the head without contrast ??was performed with axial images obtained. A dose lowering technique was used for this procedure, which may include, but is not limited to, dose reduction technique, automated exposure control, the use of iterative reconstruction, and ALARA (As Low As Reasonably Achievable) / Image Gently techniques. FINDINGS: There are confluent and patchy foci of hypoattenuation in the hemispheric white matter, presumably related to patient's history of multiple sclerosis. No acute intercranial hemorrhage, extra-axial collections, intracranial mass effect, or midline shift. No definite CT evidence of acute territorial infarction, though MRI would be more sensitive. Mild to moderate volume loss with enlargement of the ventricles and extra-axial/subarachnoid spaces, greater than expected for a patient of this age. Calvarium unremarkable. Mastoid air cells and visualized paranasal sinuses clear. Visualized orbits unremarkable. Procedure Note Mitchel Foley MD - 04/15/2019 EXAMINATION: CT of the head CLINICAL HISTORY: Seizure. Confusion. History of multiple sclerosis. COMPARISON: Report from outside MRI 07/15/2018. Images not available for direct comparison. TECHNIQUE: CT examination of the head without contrast was performedwith axial images obtained. A dose lowering technique was used for this procedure, which mayinclude, but is not limited to, dose reduction technique, automated exposure control, the use of iterative reconstruction, and ALARA (As Low As Reasonably Achievable) / Image Gently techniques. FINDINGS: There are confluent and patchy foci of hypoattenuation in thehemispheric white matter, presumably related to patient's history of multiple sclerosis. No acute intercranial hemorrhage, extra-axial collections, intracranial mass effect, or midline shift. No definite CT evidence of acute territorial infarction, though MRI would be more sensitive. Mildto moderate volume loss with enlargement of the ventricles and extra-axial/subarachnoid spaces, greater than expected for a patient of this age. Calvarium unremarkable. Mastoid air cells and visualized paranasal sinuses clear. Visualized orbits unremarkable. IMPRESSION: 1. No definite CT evidence of acute intracranial abnormality, as above. 2. Patchy, supratentorial white matter abnormalities, presumably relatedto patient's history of multiple sclerosis. 3. Volume loss, greater than expected for a patient of this age. Evens Yanes MD CT Final Result * MAGNESIUM (04/15/2019 11:34 AM AUTOCUTTER) Pathologist [facility] MAGNESIUM 2.0 1.8 - 2.4 MG/DL 04/15/2019 3:11 PM AUTOCUTTER [facility] 04/15/2019 11:3 4 AM AUTOCUTTER Mario Murray DO LABORATORY Final Result [facility] [address] [place] [address], * CHORIONIC GONADOTROPIN HCG QL (04/15/2019 11:34 AM AUTOCUTTER) PREG SCREEN-SERUM NEGATIVE 04/15/2019 1:02 PM AUTOCUTTER [facility] 04/15/2019 11:3 4 AM AUTOCUTTER Evens Yanes MD LABORATORY Final Result [facility] [address] [place] [id number], * (ABNORMAL) BASIC METABOLIC PANEL (04/15/2019 11:34 AM AUTOCUTTER) [facility] GLUCOSE 125(H) 70 - 99 MG/DL 04/15/2019 12:08 PM [facility] BUN 13 7 - 18 MG/DL 04/15/2019 12:08 PM [facility] CREATININE S/P/B 0.83 0.55 - 1.02 MG/DL 04/15/2019 12:08 PM [facility] SODIUM S/P/B 142 136 - 145 MMOL/L 04/15/2019 12:08 PM [facility] POTASSIUM S/P/B 3.8 3.5 - 5.1 MMOL/L 04/15/2019 12:08 PM [facility] CHLORIDE S/P/B 111(H) 100 - 108 MMOL/L 04/15/2019 12:08 PM [facility] CO2 24.3 21 - 32 MMOL/L 04/15/2019 12:08 PM [facility] CALCIUM S/P/B 8.0(L) 8.5 - 10.1 MG/DL 04/15/2019 12:08 PM [facility] ANION GAP 6.7 5 - 15 MMOL/L 04/15/2019 12:08 PM [facility] BUN CREATININE RATIO 15.7 6 - 26 04/15/2019 12:08 PM [facility] EGFR NON-AFR. AMER. 89(L) >90 ML/MIN/1.7 3 M2 04/15/2019 12:08 PM [facility] EGFR AFR. AMER. >90 >90 ML/MIN/1.7 3 M2 04/15/2019 12:08 PM [facility] Comment: NOTE: eGFR is not calculated for patients <18 years of age. This is an estimated GFR (CKD EPI) and should not be used for calculating drug doses. 04/15/2019 11:3 4 AM AUTOCUTTER Evens Yanes MD LABORATORY Final Result [facility] [address] [place] [address], * (ABNORMAL) CBC W/DIFF AUTOMATED (04/15/2019 11:34 AM AUTOCUTTER) WBC 18.8(H) 4.5 - 11.0 x10'3/uL 04/15/2019 11:48 AM [facility] RBC 4.42 4.20 - 5.40 x10'6/uL 04/15/2019 11:48 AM [facility] HGB 12.4 12.0 - 16.0 G/DL 04/15/2019 11:48 AM [facility] HCT 38.9 38.0 - 48.0 % 04/15/2019 11:48 AM [facility] MCV 88.0 81.0 - 99.0 FL 04/15/2019 11:48 AM [facility] MCH 28.1 27.0 - 31.0 PG 04/15/2019 11:48 AM [facility] MCHC 31.9(L) 32.0 - 36.0 G/DL 04/15/2019 11:48 AM [facility] RDW 14.9(H) 11.5 - 14.5 % 04/15/2019 11:48 AM [facility] PLT 357 130 - 400 x10'3/uL 04/15/2019 11:48 AM [facility] MPV 8.9(L) 9.3 - 12.2 FL 04/15/2019 11:48 AM AUTOCUTTER [facility] DIFFERENTIAL TYPE MANUAL DIFFERENTIAL 04/15/2019 12:20 PM [facility] SEG NEUTROPHILS 92 % 0 12:20 PM [facility] LYMPHOCYTES 2 % 04/15/2019 12:20 PM [facility] MONOCYTES 4 % 04/15/2019 12:20 PM AUTOCUTTER [facility] EOSINOPHILS 2 % 04/15/2019 12:20 PM [facility] ABS. NEUTROPHILS CALCULATED 17.30(H) 1.80 - 7.70 x10'3/uL 04/15/2019 12:20 PM [facility] ABS.LYMPHOCYTES CALCULATED 0.38(L) 1.00 - 4.80 x10'3/uL 04/15/2019 12:20 PM [facility] ABS. MONOCYTES CALCULATED 0.75 0.24 - 0.86 x10'3/uL 04/15/2019 12:20 PM [facility] ABS. EOSINOPHIL CALCULATED 0.38(H) 0.04 - 0.36 x10'3/uL 04/15/2019 12:20 PM [facility] RBC MORPHOLOGY RBC MORPHOLOGY APPEARS NORMAL. SLIDE REVIEWED. 04/15/2019 12:20 PM [facility] PLT EST. ADEQUATE 04/15/2019 12:20 PM [facility] 04/15/2019 11:3 4 AM AUTOCUTTER Evens Yanes MD LABORATORY Final Result [facility] [address] [place] [address], * (ABNORMAL) POCT glucose (04/15/2019 11:32 AM AUTOCUTTER) GLUCOSE POC 136(H) 70 - 99 mg/dL 04/15/2019 11:35 AM AUTOCUTTER [facility] ORDERS INTERFACE 04/15/2019 11:3 2 AM AUTOCUTTER us Evens Yanes MD POCT ORDERABLES - DEVICE Angela guillory Result [facility] ORDERS INTERFACE US documented in this encounter Visit Diagnoses Diagnosis Seizure ([facility])- Primary Other convulsions Seizure ([facility]/HCC) Other convulsions Weakness of extremity documented in this encounter Admitting Diagnoses Diagnosis Seizure ([facility] HHS/HCC) Other convulsions documented in this encounter Administered Medications Inactive Administered Medications - up to 3 most recent administrations Medication Order MAR Action Action Date Dose Rate Site acetaminophen (TYLENOL) tablet 650 mg 650 mg, Oral, Every 4 hours PRN, Mild pain (Scale 1 - 3), Starting on Sun04/15/19 at 1557, Until Sun04/16/19 at 1545, Maximum dose of acetaminophen is 4000 mg from all sources in 24 hours. Given 04/15/2019 4:31 PM AUTOCUTTER 650 mg baclofen (LIORESAL) tablet 10 mg 10 mg, Oral, 2 times daily, First dose on Sun04/15/19 at 2100, Until Discontinued Given 04/16/2019 8:41 AM AUTOCUTTER 10 mg Given 04/15/2019 10:11 PM AUTOCUTTER 10 mg gtjgcgaekr-tlptpvxbbuhjl-lyinsm ne (FIORICET) 50-300-40 MG capsule 1 capsule 1 capsule, Oral, Every 4 hours PRN, Headaches, Migraine, Starting on Sun04/15/19 at 1619, Until Sun04/16/19 at 1545, Maximum dose of acetaminophen is 4000 mg from all sources in 24 hours. enoxaparin (LOVENOX) 40 MG/0.4ML syringe 40 mg 40 mg, Subcutaneous, Every 24 hours, First dose on Sun04/15/19 at 1600, Until Discontinued, Administer by deep SubQ injection alternating between the left or right anterolateral and left or right posterolateral abdominal wall. Given 04/15/2019 4:32 PM AUTOCUTTER 40 mg Left Upper Abdomen escitalopram (LEXAPRO) tablet 20 mg 20 mg, Oral, Daily, First dose on Sun04/15/19 at 1600, Until Discontinued Given 04/16/2019 8:41 AM AUTOCUTTER 20 mg Given 04/15/2019 4:31 PM AUTOCUTTER 20 mg fluticasone propionate (FLONASE) 50 MCG/ACT nasal spray 1 spray 1 spray, Each Nostril, 2 times daily PRN, Allergies, Starting on Sun04/15/19 at 1547, Until Sun04/16/19 at 1545 Given 04/16/2019 8:44 AM AUTOCUTTER 1 spray fluticasone-salmeterol (ADVAIR HFA) 230-21 MCG/ACT inhaler 2 puff 2 puff, Inhalation, Every 12 hours, First dose on Sun04/15/19 at 2100, Until Discontinued, Per [facility] approved therapeutic interchange protocol Following administration, rinse mouth with water after use (do not swallow) to reduce risk of oral candidiasis. Given 04/16/2019 8:56 AM AUTOCUTTER 2 puffs gadoterate meglumine (DOTAREM) 7.5 MMOL/15ML injection 12 mL 12 mL, Intravenous, IMG once as needed, Contrast, 1 dose, Starting on Sun04/15/19 at 2036, Until Sun04/15/19 at 2037 Given 04/15/2019 8:37 PM AUTOCUTTER 12 mLs Le ft Arm levETIRAcetam (KEPPRA) tablet 500 mg 500 mg, Oral, 2 times daily, First dose on Sun04/15/19 at 1645, Until Discontinued Given 04/16/2019 8:42 AM AUTOCUTTER 500 mg Given 04/15/2019 4:31 PM AUTOCUTTER 500 mg levETIRAcetam (KEPPRA) tablet 500 mg 500 mg, Oral, 2 times daily, First dose (after last modification) on Sun04/16/19 at 2100, Until Discontinued lorazepam (ATIVAN) injection 1 mg 1 mg, Intravenous, Once, 1 dose, On Sun04/15/19 at 1700, For IV use, further dilute with an equal volume of saline. Do not exceed a rate of 2 mg/min. Given 04/15/2019 7:51 PM AUTOCUTTER 1 mg lorazepam (ATIVAN) injection 2 mg 2 mg, Intravenous, Once, 1 dose, On Sun04/15/19 at 1215, For IV use, further dilute with an equal volume of saline. Do not exceed a rate of 2 mg/min. Given 04/15/2019 12:34 PM AUTOCUTTER 2 mg lorazepam (ATIVAN) injection 2 mg 2 mg, Intravenous, Every 4 hours PRN, Anxiety, Seizures, Starting on Sun04/15/19 at 1637, Until Sun04/16/19 at 1545, For IV use, further dilute with an equal volume of saline. Do not exceed a rate of 2 mg/min. zonisamide (ZONEGRAN) capsule 400 mg 400 mg, Oral, Daily, First dose on Sun04/15/19 at 1600, Until Discontinued, HAZARDOUS MEDICATION Given 04/16/2019 8:42 AM AUTOCUTTER 400 mg Given 04/15/2019 6:15 PM AUTOCUTTER 400 mg documented in this encounter Active and Recently Administered Medications Times are shown in AUTOCUTTER. Scheduled Medication Order 04/14/2019 04/15/2019 04/16/2019 baclofen (LIORESAL) tablet 10 mg 10 mg, Oral, 2 times daily, First dose on Sun04/15/19 at 2100, Until Discontinued 2210 (Given - Provider: Prachi Madrid RN) 0841 (Given - Provider: Marta Saldana, YOVANA) enoxaparin (LOVENOX) 40 MG/0.4ML syringe 40 mg(Linked Group 1) 40 mg, Subcutaneous, Every 24 hours, First dose on Sun04/15/19 at 1600, Until Discontinued, Administer by deep SubQ injection alternating between the left or right anterolateral and left or right posterolateral abdominal wall. 1631 (Given - Provider: Malina Rosales RN) escitalopram (LEXAPRO) tablet 20 mg 20 mg, Oral, Daily, First dose on Sun04/15/19 at 1600, Until Discontinued 163 (Given - Provider: Malina Rosales RN) 0841 (Given - Provider: Marta Saldana, YOVANA) fluticasone-salmeterol (ADVAIR HFA) 230-21 MCG/ACT inhaler 2 puff 2 puff, Inhalation, Every 12 hours, First dose on Sun04/15/19 at 2100, Until Discontinued, Per [facility] approved therapeutic interchange protocol Following administration, rinse mouth with water after use (do not swallow) to reduce risk of oral candidiasis. 0018 (Not Given - Provider: Prachi Madrid RN - Reason: Other - Comment: Not given by RT)0856 (Given - Provider: Khloe Lane, JIMMIE) levETIRAcetam (KEPPRA) tablet 500 mg (CANCELED) 500 mg, Oral, 2 times daily, First dose on Sun04/15/19 at 1645, Until Discontinued 163 (Given - Provider: Malina Rosales RN) 0842 (Given - Provider: Marta Saldana, YOVANA) levETIRAcetam (KEPPRA) tablet 500 mg 500 mg, Oral, 2 times daily, First dose (after last modification) on Sun04/16/19 at 2100, Until Discontinued lorazepam (ATIVAN) injection 1 mg (COMPLETED) 1 mg, Intravenous, Once, 1 dose, On Sun04/15/19 at 1700, For IV use, further dilute with an equal volume of saline. Do not exceed a rate of 2 mg/min. 195 (Given - Provider: Prachi Madrid RN) lorazepam (ATIVAN) injection 2 mg (COMPLETED) 2 mg, Intravenous, Once, 1 dose, On Sun04/15/19 at 1215, For IV use, further dilute with an equal volume of saline. Do not exceed a rate of 2 mg/min. 1234 (Given - Provider: Sherry Vega RN) zonisamide (ZONEGRAN) capsule 400 mg 400 mg, Oral, Daily, First dose on Sun04/15/19 at 1600, Until Discontinued, HAZARDOUS MEDICATION 181 (Given - Provider: Malina Rosales RN) 0842 (Given - Provider: Marta Saldana, YOVANA) PRN Medication Order 04/14/2019 04/15/2019 04/16/2019 acetaminophen (TYLENOL) tablet 650 mg 650 mg, Oral, Every 4 hours PRN, Mild pain (Scale 1 - 3), Starting on Sun04/15/19 at 1557, Until Sun04/16/19 at 1545, Maximum dose of acetaminophen is 4000 mg from all sources in 24 hours. 163 (Given - Provider: Malina Rosales RN) albuterol sulfate HFA 108 (90 Base) MCG/ACT inhaler 2 puff 2 puff, Inhalation, Every 4 hours PRN, Shortness of breath, Starting on Sun04/15/19 at 1543, Until Sun04/16/19 at 1545 gbfqvspwlv-shmkbxlxsqolr-vs ffeine (FIORICET) 50-300-40 MG capsule 1 capsule 1 capsule, Oral, Every 4 hours PRN, Headaches, Migraine, Starting on Sun04/15/19 at 1619, Until Sun04/16/19 at 1545, Maximum dose of acetaminophen is 4000 mg from all sources in 24 hours. fluticasone propionate (FLONASE) 50 MCG/ACT nasal spray 1 spray 1 spray, Each Nostril, 2 times daily PRN, Allergies, Starting on Sun04/15/19 at 1547, Until Sun04/16/19 at 1545 0844 (Given - Provid er: Marta Saldana RN) gadoterate meglumine (DOTAREM) 7.5 MMOL/15ML injection 12 mL (COMPLETED) 12 mL, Intravenous, IMG once as needed, Contrast, 1 dose, Starting on Sun04/15/19 at 203, Until Sun04/15/19 at 2036 2036 (Given - Provider: Tessa Reyes, RTR) lorazepam (ATIVAN) injection 2 mg 2 mg, Intravenous, Every 4 hours PRN, Anxiety, Seizures, Starting on Sun04/15/19 at 1637, Until Sun04/16/19 at 1545, For IV use, further dilute with an equal volume of saline. Do not exceed a rate of 2 mg/min. ondansetron (ZOFRAN) injection 4 mg 4 mg, Intravenous, Every 8 hours PRN, Nausea, Vomiting, Starting on Sun04/15/19 at 1557, Until Sun04/16/19 at 1545, IV push over 2-5 minutes. Linked Groups Order Group 1: enoxaparin (LOVENOX) 40 MG/0.4ML syringe 40 mgJump to med 40 mg, Subcutaneous, Every 24 hours, First dose on Sun04/15/19 at 1600, Until Discontinued, Administer by deep SubQ injection alternating between the left or right anterolateral and left or right posterolateral abdominal wall. And Moderate Risk for VTE (COMPLETED) documented in this encounter Care Teams Vacuum Cleaner Assembler Relationship Specialty Start Date End Date Lauren Page, [facility]- [address] [phone] PCP - General NURSE PRACTITIONER 08/27/18 documented as of this encounter
--- OUTSIDE RECORDS SUMMARY | 2024-03-22 16:50 | XMS_ITS ---
Author Organization [facility] Address Unknown Problems Problem Status Start Date End Date OTHER FRACTURE OF UPPER AND LOWER END OF RIGHT FIBULA, INITIAL ENCOUNTER FOR CLOSED FRACTURE (Primary) (S82.831A - ICD-10-CM) ACTIVE 03/09/2021 UNSPECIFIED FRACTURE OF LOWE R END OF RIGHT TIBIA, INITIAL ENCOUNTER FOR CLOSED FRACTURE (S82.301A - ICD-10-CM) ACTIVE MULTIPLE SCLEROSIS (G35 - ICD-10-CM) ACTIVE 02/17 COVID-19 (U07.1 - ICD-10-CM) ACTIVE 03/24/2021 CHRONIC OBSTRUCTIVE PULMONAR Y DISEASE, UNSPECIFIED (J44.9 - ICD-10-CM) ACTIVE 03/16/2021 ANXIETY DISORDER, UNSPECIFIED (F41.9 - ICD-10-CM) ACTI VE 03/09/2021 CONSTIPATION, UNSPECIFIED (K59.00 - ICD-10-CM) ACTIVE 03/09/2021 PAIN, UNSPECIFIED (R52 - ICD-10-CM) ACTIVE 03/09 EPILEPSY, UNSPECIFIED, NOT I NTRACTABLE, WITHOUT STATUS EPILEPTICUS (G40.909 - ICD-10-CM) ACTIVE 03/09/2021 MUSCLE WEAKNESS (GENERALIZED) (M62.81 - ICD-10-CM) ACT PAM 03/09/2021 OTHER ABNORMALITIES OF GAIT AND MOBILITY (R26.89 - ICD-10-CM) ACTIVE 03/14/2021 DISORIENTATION, UNSPECIFIED (R41.0 - ICD-10-CM) ACTIVE 03/09/2021 FRONTAL LOBE AND EXECUTIVE F UNCTION DEFICIT (R41.844 - ICD-10-CM) ACTIVE 03/09/2021 OTHER SEIZURES (G40.89 - ICD-10-CM) ACTIVE 03/09 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) ACTIVE 0 03/31/2021 VITAMIN D DEFICIENCY, UNSPECIFIED (E55.9 - ICD-10-CM) ACTIVE 03/11/2021 Results * CBC W/DIFF Performed by: [address] [id number] Component Value Range Date HEMOGLOBIN 11.0 g/dL 12.0-16.0 03/10/2021 08:3 0 pm EST * CMP-COMPREHENSIVE METABOLIC PNL Performed by: [place] [id number] Component Value Range Date POTASSIUM 4.3 mEq/L 3.5-5.3 03/10/2021 08:3 0 pm EST SODIUM 140 mEq/L 136-145 03/10/2021 08:3 0 pm EST BUN (UREA NITROGEN) 15 mg/dL 7-25 03/10/20 08:30 pm EST CARBON DIOXIDE (CO2) 24 mEq/L 21-33 021 08:30 pm EST CHLORIDE 105 mEq/L 98-110 03/10/2021 08:3 0 pm EST * CBC W/DIFF Performed by: [address] [id number] Component Value Range Date RBC 4.83 M/cmm 3.90-5.40 03/10/2021 08:3 0 pm EST MCHC 31.9 g/dL 31.0-36.5 03/10/2021 08:3 0 pm EST MCH 22.8 pg 26.0-35.0 03/10/2021 08:3 0 pm EST HEMATOCRIT 34.6 % 36.0-48.0 03/10/2021 08:3 0 pm EST WBC 15.1 K/cmm 4.5-10.8 03/10/2021 08:3 0 pm EST * CMP-COMPREHENSIVE METABOLIC PNL Performed by: [address] [id number] Component Value Range Date ALT (SGPT) 10 IU/L 4-55 03/10/2021 08:3 0 pm EST * CBC W/DIFF Performed by: [place] [id number] Component Value Range Date PLATELET 408 K/cmm 150-450 03/10/2021 08:3 0 pm EST * CMP-COMPREHENSIVE METABOLIC PNL Performed by: [place] [id number] Component Value Range Date AST (SGOT) 12 IU/L 4-40 03/10/2021 08:3 0 pm EST ALBUMIN 4.1 g/dL 3.5-5.5 03/10/2021 08:3 0 pm EST PROTEIN, TOTAL 6.5 g/dL 6.0-8.3 03/10/2021 08 :30 pm EST ALKALINE PHOS 74 IU/L 34-136 03/10/2021 08: 30 pm EST * CBC W/DIFF Performed by: [place] [id number] Component Value Range Date RDW 18.6 % 11.0-16.0 03/10/2021 08:3 0 pm EST NEUTROPHILS 83.5 % 40.0-80.0 03/10/2021 08:3 0 pm EST BASO (ABSOLUTE) 0.10 K/uL 0.00-0.30 03/10/2021 0 8:30 pm EST * CMP-COMPREHENSIVE METABOLIC PNL Performed by: [place] [id number] Component Value Range Date MOM-RTO-FLFNEGL 137 mL/min/1.73 m2 >60 03/10/2021 08:30 pm EST GFR- 165 mL/min/1.73 m2 >60 1 05/11/2020 08:30 pm EST * CBC W/DIFF Performed by: [place] [id number] Component Value Range Date MCV 71.6 fL 80.0-100.0 03/10/2021 08:3 0 pm EST LYMPHS (ABSOLUTE) 0.90 K/uL 0.90-5.50 03/10/2021 08:30 pm EST MONOCYTES 7.4 % 2.0-12.0 03/10/2021 08:3 0 pm EST LYMPHS 6.0 % 13.0-48.0 03/10/2021 08:3 0 pm EST BASO 0.4 % 0.0-2.0 03/10/2021 08:3 0 pm EST EOS 2.7 % 0.0-8.0 03/10/2021 08:3 0 pm EST NEUTS (ABSOLUTE) 12.60 K/uL 1.50-7.60 03/10/2021 08:30 pm EST EOS (ABSOLUTE) 0.40 K/uL 0.20-0.80 03/10/2021 08 :30 pm EST MONOCYTES (ABSOLUTE) 1.10 K/uL 0.15-1.10 08:30 pm EST * CMP-COMPREHENSIVE METABOLIC PNL Performed by: [place] [id number] Component Value Range Date BUN/CREATININE RATIO 30 6-34 08:30 pm EST A/G RATIO 1.7 0.8-2.0 03/10/2021 08:3 0 pm EST * CBC W/DIFF Performed by: [place] [id number] Component Value Range Date MPV 7.7 fL 6.5-12.0 03/10/2021 08:3 0 pm EST NUCLEATED RBC 0.1 NRBC/100 WBC <1.0 03/10/2021 08:30 pm EST * CMP-COMPREHENSIVE METABOLIC PNL Performed by: [place] [id number] Component Value Range Date CREATININE 0.5 mg/dL 0.6-1.3 03/10/2021 08:3 0 pm EST GLUCOSE 68 03/10/2021 08:3 0 pm EST CALCIUM 9.0 mg/dL 8.4-10.2 03/10/2021 08:3 0 pm EST BILIRUBIN, TOTAL 0.4 mg/dL 0.2-1.2 03/10/2021 08:30 pm EST * CBC W/DIFF Performed by: [place] [id number] Component Value Range Date ANISOCYTOSIS 1+ NEGATIVE 03/10/2021 08:3 0 pm EST HYPOCHROMASIA 1+ NEGATIVE 03/10/2021 08: 30 pm EST MICROCYTOSIS 1+ NEGATIVE 03/10/2021 08:3 0 pm EST Encounters Encounter Performer Performer Role Encounter Diagnoses Location Date Discharge - Discharged to home or self care - Home with Family - Other [place] [facility] 03/09/2021 07:48 pm EST - 04/08/2021 04:00 pm EST Social History
--- OUTSIDE RECORDS SUMMARY | 2024-03-22 16:50 | XMS_ITS | Encounter Summary ---
Author Organization [facility] Healthcare Address [address] [place] [address] Care Team Providers Care Covered Button Maker Name Role Phone Joy Sheppard Primary Care Provider [phone] Encounter Details Date Type Department Care Team (Late st Contact Info) Description 09/27/2023 Orders Only [facility] [address] [facility] [address] [place] [address] Mckayla Haywood MD [facility] [address] [place] [address] Intractable chronic 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 without status migrainosus (Primary Dx) Social History Tobacco Use Types Packs/Day Years Used Date Smoking Tobacco: Never Smokeless Tobacco: Never AUDIT-C Answer Date Recorded Q1: How often do you have a drink containing alcohol? Never 09/06/2023 Q2: How many drinks containi ng alcohol do you have on a typical day when you are drinking? Patient does not drink Q3: How often do you have si x or more drinks on one occasion? 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 She is done well with this in the past without side effects. documented in this encounter Plan of Treatment Not on file documented as of this encounter Visit Diagnoses Diagnosis Intractable chronic 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 without status migrainosus- Primary documented in this encounter Discontinued Medications Medication Sig Discontinue Reason Start Date End Da te ibuprofen (ADVIL,MOTRIN) 800 mg tablet Take 1 tablet (800 mg total) by mouth 2 (two) times a day as needed Reorder 10/30/2020 09/27/2023 documented as of this encounter Care Teams Covered Button Maker Relationship Specialty Start Date End Date Joy Sheppard PA [address] [place] [id number] PCP - General Physician Clean In Places Operator 07/12/23 documented as of this encounter
--- OUTSIDE RECORDS SUMMARY | 2024-03-22 16:50 | XMS_ITS | Encounter Summary ---
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
--- OUTSIDE RECORDS SUMMARY | 2024-03-22 16:50 | XMS_ITS | Encounter Summary ---
Author Organization [facility] Healthcare Address [address] [place] [address] Care Team Providers Care Insecticide Expert Name Role Phone Joy Sheppard Primary Care Provider [phone] Reason for Visit * Reason Onset Date Comments Ocrevus Approval 01/21/2024 Auth# [id number], 12/07/23-12/06/24 Encounter Details Date Type Department Care Team ([facility] Contact Info) Description 01/21/2024 [place] [facility] [address] [address] Gab Garsia Ocrevus Approval (Auth# [id number], 12/07/23-12/06/24) Social History Tobacco Use Types Packs/Day Years [...] on file Legal Sex Female 6:27 AM TOYS INSPECTOR Gender Identity Not on file Sexual Orientation Not on file documented as of this encounter Miscellaneous Notes * Telephone Encounter - Bekah Larson PA - 01/21/2024 3:34 PM CST Okay for Ocrevus infusion. INSPECTOR * Telephone Encounter - Gab Garsia - 01/21/2024 10:07 AM CST Ocrevus 6mo Infusion Infusion Due: 01/29/2024 Labs completed: 01/18/2024 Hepatitis completed: 05/14/2023 Last Provider Visit: 10/04/2023 Last Infusion: 06/22/2023 COVID Vaccine: FOODit COVID-19 Vaccine (Pfizer SARS-CoV-2 Monovalent Vaccination (12+ Yrs)PURPLE)05/27/2020, 04/30/2020 Allergies: NKA Please review chart and advise the [facility] if orders can be put in and patient scheduled. INSPECTOR documented in this encounter Plan of Treatment Not on file documented as of this encounter Visit Diagnoses Not on filedocumented in this encounter Care Teams Insecticide Expert Relationship Specialty Start Date End Date Joy Sheppard PA [address] [place] [phone] PCP - General Physician Tour Production Supervisor 07/12/23 documented as of this encounter
--- OUTSIDE RECORDS SUMMARY | 2024-03-22 16:50 | XMS_ITS | Encounter Summary ---
Author Organization [facility] Healthcare Address [address] [place] [address] Care Team Providers Care Instructor Flying Name Role Phone Joy Sheppard Primary Care Provider [phone] Encounter Details Date Type Department Care Team (Late st Contact Info) Description 01/28/2024 1:00 PM MASTER NAVAL PARACHUTIST Office Visit [facility] [address] [facility] [address] [place] [address] Bekah Larson PA [address] [place] [address] Multiple sclerosis (HCC) (Primary Dx); Intractable chronic 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 without status migrainosus; High risk medication use Social History Tobacco Use Types Packs/Day Years Used Date Smoking Tobacco: Never Smokeless Tobacco: Never Tobacco Cessation:Counseling Given: Not Answered AUDIT-C Answer Date Recorded Q1: How often do you have a drink containing alcohol? Never 09/06/2023 Q2: How many drinks containi ng alcohol do you have on a typical day when you are drinking? Patient does not drink Q3: How often do you have si x or more drinks on one occasion? Never 09/06/2023 Comments No Sex and Gender Information Value Date Recorded Sex Assigned at Not on file Legal Sex Female 6:27 AM MASTER NAVAL PARACHUTIST Gender Identity Not on file Sexual Orientation Not on file documented as of this encounter Last Filed Vital Signs Vital Sign Reading Time Taken Comments Blood Pressure 106/58 01/28/2024 12:47 PM MASTER NAVAL PARACHUTIST Pulse 77 01/28/2024 12:47 PM MASTER NAVAL PARACHUTIST Temperature 36.2 ??C (97.2 ??F) 01/28/2024 12:[address] Respiratory Rate - - Oxygen Saturation 97% 01/28/2024 12:47 PM MASTER NAVAL PARACHUTIST Inhaled Oxygen Concentration - - Weight 69 kg (152 lb 1.6 oz) 01/28/2024 12:47 PM MASTER NAVAL PARACHUTIST Height 165.1 cm (5' 5 ) 01/28/2024 12:47 PM MASTER NAVAL PARACHUTIST Body Mass Index 25.31 01/28/2024 12:47 PM MASTER NAVAL PARACHUTIST documented in this encounter Patient Instructions * Patient Instructions* Bekah Larson PA - 01/28/2024 1:00 PM MASTER NAVAL PARACHUTIST Continue Ocrevus infusion. See Dr. See in 6 months. ER NAVAL PARACHUTIST documented in this encounter Ordered Prescriptions Prescription Sig Dispense Quantity Refills Last Filled Start Date End Date risperiDONE (RisperDAL) 2 mg tabletIndications: Multiple sclerosis (HCC) Take 2 tablets (4 mg total) by mouth daily 60 tablet 01/28/2024 documented in this encounter Progress Notes * Bekah Larson PA - 01/28/2024 1:00 PM CST Neurology Progress Chief complaint: Multiple sclerosis HPI: This is a 43 y.o. right-handed female, a newly established multiple sclerosis patient. She has beenon Ocrevus since 09/2016. Tolerated well. Last infusion 01/28/2024. She states that she has been stable, no new or worsening issues in terms of MS since last visit. Impaired balance unchanged. No double vision. No visual loss. No vertigo. No Lhermitte's. No bladder urgency. No sexual dysfunction. Depression controlled on Lexapro 30 mg. On risperidone 4 mg daily by a psychiatrist. Memory impaired. No seizure since last visit on Vimpat 100 mg twice a day, zonisamide 500 mg nightly and [id number] bid. Headaches on Botox injections every 3 months. Taking ibuprofen as needed. Past medical history: Schizophrenia, asthma, depression, GERD, seasonal allergies Past surgical history: Right knee Current Outpatient Medications Medication Sig Dispense Refill albuterol HFA (PROVENTIL HFA,VENTOLIN HFA,PROAIR HFA) 90 mcg/actuation inhaler Inhale 2 puffs every6 (six) hours as needed baclofen (LIORESAL) 10 mg tablet TAKE 1 TABLET BY MOUTH TWICE DAILY. MAY CAUSE DROWSINESS brivaracetam 75 mg tablet Take 2 tablets (150 mg total) by mouth 2 (two) times a day oztzveuxxx-wkxhqzxlpcwbz-zymfjmlf (ESGIC) 50-325-40 mg per tablet Take 1 tablet by mouth every 4 (four) hours as needed docusate sodium (COLACE) 100 mg capsule Take 1 capsule (100 mg total) by mouth every 12 (twelve) hours escitalopram (LEXAPRO) 20 mg tablet Take 1 tablet (20 mg total) by mouth daily fluticasone propionate (FLONASE) 50 mcg/actuation nasal spray Administer 1 spray into each nostril daily as needed folic acid (FOLVITE) 1 mg tablet Take 1 tablet (1,000 mcg total) by mouth daily ibuprofen (ADVIL,MOTRIN) 800 mg tablet Take 1 tablet (800 mg total) by mouth 2 (two) times a day asneeded for pain 60 tablet 3 lacosamide (VIMPAT) 200 mg tablet Take 1 tablet (200 mg total) by mouth 2 (two) times a day ocrelizumab (OCREVUS) 30 mg/mL solution Infuse 20 mL (600 mg total) into a venous catheter every 6 (six) months Last admin: onabotulinumtoxin A (BOTOX) 100 unit recon soln Inject 200 Units into the muscle as instructed every 3 (three) months Last admin: risperiDONE (RisperDAL) 2 mg tablet Take 2 tablets (4 mg total) by mouth daily Symbicort 160-4.5 mcg/actuation inhaler Inhale 2 puffs 2 (two) times a day zonisamide (ZONEGRAN) 100 mg capsule Take 5 capsules (500 mg total) by mouth nightly No current facility-administered medications for this visit. Facility-Administered Medications Ordered in Other Visits Medication Dose Route Frequency Provider Last Rate Last Admin acetaminophen (TYLENOL) tablet 650 mg 650 mg oral Once Bekah Larson PA diphenhydrAMINE (BENADRYL) tab/cap 50 mg 50 mg oral Once Bekah Larson PA sodium chloride 0.9% flush 10 mL 10 mL intravenous PRN Bekha Larson PA Allergies Allergen Reactions Haloperidol Lactate Other (See comments) Dystonia, torticollis Social history: 3-4 margaritas 1-2 times per month. Never smoked cigarettes. Single. 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 Neurological Exam: Mental status: Alert and oriented x 3. Speech fluent. WORLD backwards: incorrect. Serial 7s to 93. Cranial nerves: II Optic: Pupils: PERRL. Visual huber full to confrontation. Visual acuity corrected: OS 20/25, OD20/30. Funduscopic exam: No papilledema OU III Oculomotor: bilateral normal, IV Trochlear: Normal, V Trigeminal: bilateral V1-3 Normal, Abducens: Normal VII Facial: Normal, VIII Acoustic: Normal, IX Glossopharyngeal: normal, X Vagus: normal, XI Spinal accessory: normal, XII Hypoglossal: normal Motor: Bulk and tone: bilateral normal Deltoids: Left 5/5, Right 5/5; Biceps: Left 5/5, Right 5/5; Triceps: Left 5/5, Right 5/5; Interossei: Left 5/5, Right 5/5. Iliopsoas: Left 5/5, Right 5/5; Quadriceps: Left 5/5, Right 5/5; Hamstrings: Left 5/5, Right 5/5; Anterior tibialis: Left 5/5, Right 5/5. Sensory: Light touch, pin-prick, vibration, and proprioception intact. Reflexes: Brachioradialis: Left: 2+; Right: 2+; Biceps: Left: 2+; Right: 2+; Patellar: Left: 3+; Right: 3+; Achilles: Left: 2+; Right: 2+; Babinski testing: no Babinski Cerebellar: Finger to nose: Left normal; Right: normal Heel to stoll: Left normal; Right: normal Gait: Mild ataxia and unsteady gait. Mild tandem gait impairment. Romberg: negative Physical Exam: Most Recent: Vitals BP 106/58 (BP Location: Left arm, Patient Position: Sitting) Pulse 77 Temp 36.2 ??C (97.2 ??F) (Temporal) Ht 165.1 cm (5' 5 ) Wt 69 kg (152 lb 1.6 oz) SpO2 97% BMI 25.31 kg/m?? Well-developed, well-nourished female in no apparent distress. No leg edema. Diagnostic Review: 01/18/2024 WBC 6.9, hemoglobin 11.4, ANC 3429, ALC 1760, creatinine 0.7, AST 10, ALT 9, IgA 71, IgE 39, IgG 627, IgM 50, Assessment/Plan: Multiple sclerosis A newly established multiple sclerosis patient. Has been on Ocrevus before established here. Tolerated well. Last infusion 01/28/2024. Reporting stable, no new or worsening issues since last visit. Neuro exam today unchanged. Continue Ocrevus infusion. See Dr. See in 6 months. Ocrevus. The risk of Ocrevus discussed including serious infusion reactions, serious infections (including pneumonia, herpetic infections and PML), harm, and potential malignancy including breast cancer. Increased risk of serious complications including pneumonia and possibly if she develops COVID-19 reinfection discussed. A booster vaccination was recommended. She understands that Ocrevus may reduce the efficacy of a COVID-19 vaccine potentially she may not be protected. Paxlovid advised if she develops COVID-19. Has been on Rebif, Tysabri, Gilenya in the past. Chronic migraine Botox injection through Dr. Mckayla Haywood. Epilepsy No recent seizure spell. On zonisamide 500 mg nightly, lacosamide 100 mg twice a day and bivaracetem 150 mg twice a day. Following epilepsy clinic. History of paranoia, anxiety and depression Following psychiatry. on Lexapro 30 mg daily. The total encounter time with the patient on 01/28/2024 was 40 minutes. This includes time spent prior to the visit and after the visit in direct care of the patient. This time does not include time spent in any separately reportable services. Greater than 50% of the visit was spent on counseling and coordinating care. Patient was counseled on medications, disease and symptoms management, and treating co-morbidities. Cosigned by Jaylon See MD at 01/28/2024 5:05 PM MASTER NAVAL PARACHUTIST ER NAVAL PARACHUTIST ER NAVAL PARACHUTIST documented in this encounter Plan of Treatment Not on file documented as of this encounter Visit Diagnoses Diagnosis Multiple sclerosis (HCC)- Primary Multiple sclerosis Intractable chronic 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 without status migrainosus High risk medication use documented in this encounter Discontinued Medications Medication Sig Discontinue Reason Start Date End Da te lacosamide (VIMPAT) 100 mg tabletIndications:Focal Epilepsy Take 1 tablet (100 mg total) by mouth 2 (two) times a day Therapy completed 01/03/2021 01/28/2024 risperiDONE (RisperDAL) 2 mg tablet Take 2 tablets (4 mg total) by mouth daily Reorder 12/29/2023 01/28/2024 documented as of this encounter Historical Medications * This list may reflect changes made after this encounter. lacosamide (VIMPAT) 200 mg tablet Take 1 tablet (200 mg total) by mouth 2 (two) times a day 01/25/2024 risperiDONE (RisperDAL) 2 mg tablet Take 2 tablets (4 mg total) by mouth daily 12/29/2023 01/28/2024 added in this encounter Care Teams Instructor Flying Relationship Specialty Start Date End Date Joy Sheppard PA [address] [place] [id number] PCP - General Physician Nursing Clerk 07/12/23 documented as of this encounter
--- OUTSIDE RECORDS SUMMARY | 2024-03-22 16:50 | XMS_ITS | Encounter Summary ---
Author Organization [facility] Healthcare Address [address] [place] [address] Care Team Providers Care Wildlife Manager Name Role Phone Joy Sheppard Primary Care Provider [phone] Reason for Visit * Reason Onset Date Comments Ocrevus 6 mo lab reminder 12/11/2023 Encounter Details Date Type Department Care Team (Late st Contact Info) Description 12/11/2023 Telephone [facility] [place] [facility] [address] [facility] [address], [place] [address] Jaylon See MD [address] [facility] [address] [place] [address] Ocrevus 6 mo lab reminder Social History Tobacco Use Types Packs/Day Years [...] on file Legal Sex Female 6:27 AM PHARMACY OPERATIONS SPECIALIST Gender Identity Not on file Sexual Orientation Not on file documented as of this encounter Miscellaneous Notes * Telephone Encounter - Gab Garsia - 01/01/2024 3:44 PM CDT Left another message for pt reminding her she is past due for her infusion due to not getting her labs done and that orders are in for her at [facility]. I asked that she get these lab done luca and to call the infusion center to reschedule provided infusion centers call back number. * Telephone Encounter - Gab Garsia - 12/11/2023 2:05 PM CDT Left message for Fei to remind her she is due for her Ocrevus 6 mo labs and that orders in for ptto have done at [facility] in [facility] documented in this encounter Plan of Treatment Not on file documented as of this encounter Procedures Procedure Name Priority Date/Time Associated Diagnosis Comments IMMUNOGLOBULINS A/E/G/M, SERUM Routine 01/18/2024 2:58 PM CDT Multiple sclerosis (HCC) High risk medication use CBC WITH AUTO DIFFERENTIAL Routine 01/18/2024 2:58 PM CDT Multiple sclerosis (HCC) High risk medication use COMPREHENSIVE METABOLIC PANEL Routine 01/18/2024 2:58 PM CDT Multiple sclerosis (HCC) High risk medication use documented in this encounter Results * Immunoglobulins A/E/G/M, Serum (01/18/2024 2:58 PM CDT) Immunoglobulin A 71 47 - 310 mg/dL [facility] Immunoglobulin E 39 <NX=823 kU/L [facility] Immunoglobulin G 627 600 - 1,640 mg/dL [facility] Immunoglobulin M 50 50 - 300 mg/dL [facility] Blood 01/18/2024 2:58 PM CDT 01/18/2024 2:58 PM CDT us Jaylon See MD LAB BLOOD ORDERABLES Final Re sult [facility] [address] [id number] * Comprehensive metabolic panel (01/18/2024 2:58 PM CDT) Glucose 90 65 - 99 mg/dL [facility] Comment: ? Fasting reference interval BUN 12 7 - 25 mg/dL [facility] Creatinine 0.70 0.50 - 0.99 mg/dL [facility] eGFR 110 > OR = 60 mL/min/1.7 3m2 [facility] BUN/creat ratio SEE NOTE: 6 - (calc) [facility] Comment: ?? Not Reported: BUN and Creatinine are within ?? reference range. ? Sodium 137 135 - 146 mmol/L [facility] Potassium, pl 4.2 3.5 - 5.3 mmol/L [facility] Chloride 105 98 - 110 mmol/L [facility] CO2 26 20 - 32 mmol/L [facility] Calcium 9.3 8.6 - 10.2 mg/dL [facility] Protein, sr 6.3 6.1 - 8.1 g/dL [facility] Albumin 4.1 3.6 - 5.1 g/dL [facility] GLOBULIN 2.2 1.9 - 3.7 g/dL (calc) [facility] Alb/glob ratio 1.9 1.0 - 2.5 (calc) [facility] Bilirubin, total 0.3 0.2 - 1.2 mg/dL [facility] Alk phos 57 31 - 125 U/L [facility] AST 10 10 - 30 U/L [facility] ALT (SGPT) 9 6 - 29 U/L [facility] Blood 01/18/2024 2:58 PM CDT 01/18/2024 2:58 PM CDT Jaylon See MD LAB BLOOD ORDERABLES Final Re sult [facility] [address] [id number] * (ABNORMAL) CBC with auto differential (01/18/2024 2:58 PM CDT) WBC 6.9 3.8 - 10.8 Thousand/u L [facility] RBC, POC 4.79 3.80 - 5.10 Million/uL [facility] Hgb 11.4(L) 11.7 - 15.5 g/dL [facility] Hct 38.0 35.0 - 45.0 % [facility] MCV 79.3(L) 80.0 - 100.0 fL [facility] MCH 23.8(L) 27.0 - 33.0 pg [facility] MCHC 30.0(L) 32.0 - 36.0 g/dL [facility] Comment: For adults, a slight decrease in the calculated MCHC value (in the range of 30 to 32 g/dL) is most likely not clinically significant; however, it should be interpreted with caution in correlation with other red cell parameters and the patient's clinical condition. Rdw 15.9(H) 11.0 - 15.0 % [facility] Platelets 466(H) 140 - 400 Thousand/u L [facility] MPV 9.7 7.5 - 12.5 fL [facility] Neutrophils, abs 3,429 1,500 - 7,800 cells/uL [facility] Lymphocytes, abs 1,760 850 - 3,900 cells/uL [facility] Monocyte abs 669 200 - 950 cells/uL [facility] Eosinophils, abs 911(H) 15 - 500 cells/uL [facility] Basophils, abs 131 0 - 200 cells/uL [facility] Neutrophils 49.7 % [facility] Lymphocyte pct 25.5 % [facility] Monocytes 9.7 % [facility] Eosinophils 13.2 % [facility] Basophils 1.9 % [facility] Blood 01/18/2024 2:58 PM CDT 01/18/2024 2:58 PM CDT us Jaylon See MD LAB BLOOD ORDERABLES Final Re sult [facility] [address] [place] [address] documented in this encounter Visit Diagnoses Diagnosis Multiple sclerosis (HCC)- Primary Multiple sclerosis High risk medication use documented in this encounter Care Teams Wildlife Manager Relationship Specialty Start Date End Date Joy Sheppard PA [address] [place] [id number] PCP - General Physician Senior Business Process Analyst 07/12/23 documented as of this encounter
--- OUTSIDE RECORDS SUMMARY | 2024-03-22 16:50 | XMS_ITS | Encounter Summary ---
Author Organization [facility] Healthcare Address [address] [place] [address] Care Team Providers Care Submarine Diver Name Role Phone Joy Sheppard Primary Care Provider [phone] Reason for Visit * Reason Comments OP Infusion Ocrevus * Episode Based Medications (Routine) - Pending Review Specialty Diagnoses / Procedures Referred By Contac t Referred To Contact Diagnoses Multiple sclerosis (HCC) Procedures IN INJECTION, OCRELIZUMAB, 1 MG Bekah Larson PA [address] [place] [address] Phone: tel: fax: [facility] [address] [address] Phone: tel: fax: Referral ID Status Reason Start Date Expiration Date V isits Requested Visits Authorized [id number] Pending Review 12/07/2023 12/06/2024 1 1 Encounter Details Date Type Department Care Team (Late st Contact Info) Description 01/28/2024 9:00 AM PROJECT MANAGEMENT PROFESSOR Infusion [facility] [address] [address] Multiple sclerosis (HCC) (Primary Dx) Social History [...] on file Legal Sex Female 6:27 AM PROJECT MANAGEMENT PROFESSOR Gender Identity Not on file Sexual Orientation Not on file documented as of this encounter Last Filed Vital Signs Vital Sign Reading Time Taken Comments Blood Pressure 109/59 01/28/2024 12:25 PM PROJECT MANAGEMENT PROFESSOR Pulse 89 01/28/2024 12:25 PM PROJECT MANAGEMENT PROFESSOR Temperature 35.7 ??C (96.2 ??F) 01/28/2024 12:[address] Respiratory Rate 18 01/28/2024 12:25 PM PROJECT MANAGEMENT PROFESSOR Oxygen Saturation 100% 01/28/2024 12:25 PM PROJECT MANAGEMENT PROFESSOR Inhaled Oxygen Concentration - - Weight - - Height - - Body Mass Index - - documented in this encounter Progress Notes * Gurjit Perez RN - 01/28/2024 9:00 AM CST Patient arrived for 6 month Ocrevus infusion, first time at our infusion site. Reports no recent fevers, infections or immunizations. Vital signs stable. Peripheral IV started with positive blood return. Pt declines benadryl and tylenol, solumedrol given and infusion started thirty minutes later. Pt states she has never experienced any reaction so infusion titrated per protocol. Patient toleratedrapid infusion without complaint. Observed for one hour post infusion. Peripheral IV removed and pressure dressing applied. Patient instructed to take Tylenol PRN for headache and Benadryl PRN for itching as side effects can occur even after infusion complete. Patient voices an understanding. Patient left ambulatory from center without complaints. Patient is scheduled for next infusion in 6 months. Most Recent Dose: 06/22/2023 First Ocrevus Dose: unknown, new to facility ECT MANAGEMENT PROFESSOR documented in this encounter Plan of Treatment Not on file documented as of this encounter Visit Diagnoses Diagnosis Multiple sclerosis (HCC)- Primary Multiple sclerosis documented in this encounter Administered Medications Inactive Administered Medications - up to 3 most recent administrations Medication Order MAR Action Action Date Dose Rate Site methylPREDNISolone sodium succinate (SOLU-medrol) preservative free injection 125 mg 125 mg, intravenous, Administer over 3 Minutes, Once, On Sun01/28/24 at 0900, For 1 dose, Give 30 minutes prior to Ocrelizumab infusion.Indications:Multiple sclerosis (HCC) Given 01/28/2024 8:45 AM PROJECT MANAGEMENT PROFESSOR 125 mg ocrelizumab (OCREVUS) 600 mg in sodium chloride 0.9% 480 mL IVPB 600 mg, intravenous, Once, On Sun01/28/24 at 0930, For 1 dose, Admin instructions for rapid infusion: FIRST 600 mg DOSE, OR SUBSEQUENT DOSE with PREVIOUS REACTION: - Start infusion at 40 ml/hour (46 mg/hour). Increase by 40 mL/hour (46 mg/hour) every 30 minutes for a maximum of 200 mL/hour (230 mg/hour). - Obtain vital signs at the following time points to ensure the patient is not experiencing any infusion related reactions - pre-infusion - at each titration - 30 minutes after the maximum infusion rate - Duration of infusion will be 3.5 hours or longer. Observe patient for 1 hour after infusion. SUBSEQUENT DOSES with NO PREVIOUS REACTION: - Verify patient has tolerated at least 2 doses at 600 mg - Start at 100 mL/hr for 15 minutes. Then, titrate rate as follows. - Increase rate to 200 mL/hr for 15 minutes. - Increase rate to 250 mL/hr for 30 minutes - Increase rate to 300 mL/hr for the remainder of the infusion. - Obtain vital signs at the following time points to ensure the patient is not experiencing any infusion related reactions - pre-infusion - at each titration - 30 minutes after the maximum infusion rate - Duration of infusion will be approximately 2 hours. Observe patient for 1 hour after infusion. Use a 0.2 or 0.22 micron filter, low-sorbing, low protein bindingIndications:Multiple sclerosis (HCC) New Bag 01/28/2024 9:26 AM PROJECT MANAGEMENT PROFESSOR 600 mg documented in this encounter Orders Medications Ordered That Kong ht Not Have Been Administered Count Last Ordered Date First Ordered Date acetaminophen (TYLENOL) tablet 650 mg 1 01/2024 diphenhydrAMINE (BENADRYL) tab/cap 50 mg 1 01/28/2024 sodium chloride 0.9% flush 10 mL 1 01/28/20 24 documented in this encounter Care Teams Submarine Diver Relationship Specialty Start Date End Date Joy Sheppard PA [address] [place] [address] PCP - General Physician Forming Department Supervisor 07/12/23 documented as of this encounter
--- OUTSIDE RECORDS SUMMARY | 2024-03-22 16:50 | XMS_ITS | Clinical Summary ---
Author Organization [facility] Address [facility] [place] [address] Care Team Providers Care Farmworker Bulbs Name Role Phone Joy Sheppard Primary Care Provider [phone] Allergies Active Allergy Reactions Criticality Noted Date Comments Haloperidol Lactate Other (See comments) High 2023 Dystonia, torticollis Medications ocrelizumab (OCREVUS) 30 mg/mL solution Infuse 20 mL (600 mg total) into a venous catheter every 6 (six) months Last admin: Active zonisamide (ZONEGRAN) 100 mg capsule Take 5 capsules (500 mg total) by mouth nightly 1 Active butalbital-aceta minophen-caffein e (ESGIC) 50-325-40 mg per tablet Take 1 tablet by mouth every 4 (four) hours as needed 8 Active albuterol HFA (PROVENTIL HFA,VENTOLIN HFA,PROAIR HFA) 90 mcg/actuation inhaler Inhale 2 puffs every 6 (six) hours as needed 4 Active Symbicort 160-4.5 mcg/actuation inhaler Inhale 2 puffs 2 (two) times a day 1 Active fluticasone propionate (FLONASE) 50 mcg/actuation nasal spray Administer 1 spray into each nostril daily as needed 1 Active onabotulinumtoxi n A (BOTOX) 100 unit recon soln Inject 200 Units into the muscle as instructed every 3 (three) months Last admin: 9 Active escitalopram (LEXAPRO) 20 mg tablet Take 1 tablet (20 mg total) by mouth daily 1 Active baclofen (LIORESAL) 10 mg tablet TAKE 1 TABLET BY MOUTH TWICE DAILY. MAY CAUSE DROWSINESS 1 Active brivaracetam 75 mg tablet Take 2 tablets (150 mg total) by mouth 2 (two) times a day 4 Active docusate sodium (COLACE) 100 mg capsule Take 1 capsule (100 mg total) by mouth every 12 (twelve) hours 2 Active folic acid (FOLVITE) 1 mg tablet Take 1 tablet (1,000 mcg total) by mouth daily Active ibuprofen (ADVIL,MOTRIN) 800 mg tabletIndication s:Intractable chronic 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 without status migrainosus Take 1 tablet (800 mg total) by mouth 2 (two) times a day as needed for pain 60 tablet 3 4 Active lacosamide (VIMPAT) 200 mg tablet Take 1 tablet (200 mg total) by mouth 2 (two) times a day 4 Active risperiDONE (RisperDAL) 2 mg tabletIndication s:Multiple sclerosis (HCC) Take 2 tablets (4 mg total) by mouth daily 60 tablet 4 Active Active Problems Problem Noted Date Diagnosed Date Callus of toe 06/18/2023 Aggressive behavior 11/21/2022 Paranoid 11/21/2022 Hoarse 09/13/2022 Xerostomia 09/13/2022 Seasonal allergic rhinitis 08/07/2022 Female pelvic inflammatory disease 03/20/2022 Right foot drop 08/03/2021 Acute cystitis without hematuria 04/08/2021 Bizarre behavior 04/08/2021 Polysubstance abuse (CMS/HCC) 04/08/2021 Overactive bladder 03/31/2021 Overview (07/31/2023): Last Assessment & Plan: Condition: stable Follow up in: three months Lifestyle changes are also recommended if you are bothered by having to go to the bathroom frequently. This includes: ?Stop drinking fluids a few hours before bedtime or going out. ?Avoid or drink less fluids that can make you go more often, like caffeine and alcohol. ?Double void. This means that after you empty your bladder, you wait a moment and try to go again. Do not strain or push to empty. COVID-19 03/24/2021 Chronic obstructive pulmonary disease, unspecifi ed 03/16/2021 Other abnormalities of gait and mobility 021 Unspecified abnormalities of gait and mobility 1 05/15/2020 Overview (07/31/2023): Last Assessment & Plan: Condition: stable Follow up in: if symptoms worsen or fail to improve Vitamin D deficiency, unspecified 03/11/2021 Constipation, unspecified 03/09/2021 Disorientation, unspecified 03/09/2021 Muscle weakness (generalized) 03/09/2021 Overview (07/31/2023): Last Assessment & Plan: Condition: stable Follow up in: if symptoms worsen or fail to improve Safety measures Other fracture of upper and lower end of right fibula, initial encounter for closed fracture 03/09/2021 Pain, unspecified 03/09/2021 Unspecified fracture of lowe r end of right tibia, initial encounter for closed fracture 03/09/2021 Altered mental status 02/04/2021 Suspected condition 01/08/2021 Overview (07/31/2023): SUBVL - Substance abuse - very low [...] - medium Added by RAMP Suspected Conditions Seizures 12/30/2020 Seizure 12/29/2020 Epilepsy 12/29/2020 Multiple sclerosis 12/29/2020 Intractable chronic 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 without status migrainosus 12/29/2020 Overview (07/31/2023): Please see my note 07/31/2023 regarding headache history. Assessment & Plan (07/31/2023 4:03 PM CDT): Assessment: The patient has a history of chronic migraines and has done very well with Botox for chronic migraine. She reports no side effects from this. She reports a greater than 50% reduction in her headache severity and frequency. Plan: Continue Botox for chronic migraine. Her next due date for Botox treatment is 09/13/2023. Rash and other nonspecific skin eruption 021 Overview (07/31/2023): Last Assessment & Plan: LLE, much improved, mostly PIH today - Ddx: Resolving GA vs nummular eczema - Discussed etiology and typical time-course - Advised strict sun protection to prevent worsening - Okay to hold off on Halobetasol cream at this time. If eruption recurs, is raised, or itchy again, then re-start BID PRN. Tinea pedis 04/02/2020 Pain of toe of right foot 11/04/2019 Curly toe 06/24/2019 Open wound of toe 06/24/2019 Major neurocognitive disorder 03/18/2019 Overview (07/31/2023): Last Assessment & Plan: Condition: stable Follow up in: if symptoms worsen or fail to improve Alcohol use disorder, mild, abuse 01/27/2019 Cannabis use disorder, severe, dependence (CMS/H CC) 01/27/2019 Overview (07/31/2023): Last Assessment & Plan: Condition: Stable Education: ?? Treatment usually includes medicines, group therapy, one or more types of counseling, and education. ?? Medicines may be used to help you quit. They may help to control cravings, ease withdrawal symptoms, and prevent relapse. This treatment is called medication-assisted treatment, or MAT. ?? Treatment focuses on more than substance use. It helps you cope with the feelings that often happen when people try to stop using substances. Reason for use: recreational Duration of use: for several years Narcan Available: Narcan Yes/No: N/A (non-opioid use) Previous interventions: Interventions: None Outcome of previous interventions: n/a Are you ready to quit? No Resources reviewed: Provider Online Directory - counseling/rehab/mental health Follow up Provider: PCP Follow up in: If symptoms worsen or fail to improve Psychosis 01/27/2019 Depression 08/06/2018 Acne vulgaris 12/04/2017 Overview (07/31/2023): Last Assessment & Plan: - Much improved, face mostly clear today - Continue Tretinoin 0.05% cream - Advised to apply at [facility] if able - Continue BP wash to face QD - Okay to hold off on Erythro soln at this time, pt not using Last Assessment & Plan: - Much improved, face mostly clear today - Continue Tretinoin 0.05% cream - Advised to apply at [facility] if able - Continue BP wash to face QD - Okay to hold off on Erythro soln at this time, pt not using Asthma 12/04/2017 Overview (07/31/2023): Last Assessment & Plan: Condition: stable Reviewed trigger avoidance and reviewed proper use of inhalers and rescue medications. Reviewed concerning signs/symptoms and ER precautions. Follow up in: if symptoms worsen or fail to improve Paranoid schizophrenia (CMS/HCC) 12/04/2017 Overview (07/31/2023): Last Assessment & Plan: Condition: stable Last mental health visit 04/2022 Medications: Taking medications as prescribed If taking medications, do not stop treatment without consulting healthcare provider. If symptoms worsen or do not improve/stabilize, notify health care provider right away. If thoughts of harming self or others notify health care provider immediately &/or seek urgent/emergent care including calling Suicide Hotline (697 or ) or 911. Follow up in if symptoms worsen or fail to improve with Psychologist/Counselor/SupportGroup/Psychiatrist and PCP ANIA (internuclear ophthalmoplegia), bilateral Gastro-esophageal reflux disease without esophag itis 09/13/2016 Other insomnia 09/13/2016 Seborrheic keratoses 03/02/2016 Anosognosia 06/17/2013 Anxiety 06/17/2013 Overview (07/31/2023): Last Assessment & Plan: Condition: stable Follow up in: if symptoms worsen or fail to improve Educated Meredith on some ways to cope with stress and anxiety. explained to the patient that anxiety can be a normal part of life when faced with stressors such as changes in relationships, presenting in front of a crowd, or making decisions. There is no one right answer to eliminate anxiety. It is important to find healthy coping skills that will work for you. Consult with your primary care physician when anxiety becomes persistent or unmanageable. SN Instructed patient about some coping skills to consider when struggling with anxiety include: Reaching out to support system (i.e. family/friends, counselors, psychiatrists, or support groups). Deep breathing Meditation, Yoga, Avoiding caffeinated beverages, Healthy diet, and Calming music. Patient Verbalized fair understanding of anxiety teaching. Other migraine, not intractable, without status migrainosus 01/05/2010 Overview (09/06/2023): Last Assessment & Plan: Condition: stable Follow up in: if symptoms worsen or fail to improve Pt encouraged to avoid certain foods or ingredients that can trigger migraines headaches (especially when they are combined with other triggers such as lack of sleep , smoking, stress and anxiety). Foods and ingredients that may trigger migraines include: alcohol, chocolate, aged cheeses, fermented or pickled goods, yeast, and processed meats. Pt encouraged to drink at least 32 oz of water daily, to practice good sleep hygiene and to have a good coping mechanisms in order to help decrease stress. Disorder of skin 06/17/2006 Encounters Date Type Department Care Team Description 01/28/2024 1:00 PM HIM SPECIALISTS Office Visit [facility] in Care [address] [place] [phone] Bekah Larson PA Multiple sclerosis (HCC) (Primary Dx); Intractable chronic 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 without status migrainosus; High risk medication use 01/28/2024 9:00 AM [facility] Infusion [facility] [address] [place] [phone] Multiple sclerosis (HCC) (Primary Dx) 01/22/2024 Orders Only [facility] [address] [place] [phone] Bekah Larson PA 01/21/2024 Telephone [facility] in Care [address] [place] [phone] Jaylon See MD Test Results 01/21/2024 Telephone [facility] in [address] [phone] Gab Garsia Approval (Auth# [id number], 12/07/23-12/06/24) 12/21/2023 Telephone [facility] [address] [place] [phone] Nancy Marino RN from Last 3 Months Surgical History Surgery Date Site/Laterality Comments PORT PLACEMENT CHEST >5 YEARS 08/10/2016 N/A PORT PLACEMENT CHEST >5 YEARS 07/13/2016 N/A Social History Tobacco Use Types Packs/Day Years [...] on file Legal Sex Female 6:27 AM [facility] Gender Identity Not on file Sexual Orientation Not on file Obstetrics History Last Filed Vital Signs Vital Sign Reading Time Taken Comments Blood Pressure 106/58 01/28/2024 12:47 PM [facility] Pulse 77 01/28/2024 12:47 PM [facility] Temperature 36.2 ??C (97.2 ??F) 01/28/2024 12:[address] Respiratory Rate 18 01/28/2024 12:25 PM [facility] Oxygen Saturation 97% 01/28/2024 12:47 PM [facility] Inhaled Oxygen Concentration - - Weight 69 kg (152 lb 1.6 oz) 01/28/2024 12:47 PM [facility] Height 165.1 cm (5' 5 ) 01/28/2024 12:47 PM [facility] Body Mass Index 25.31 01/28/2024 12:47 PM [facility] Plan of Treatment Health Maintenance Due Date Last Done Comments Cervical Cancer Screening 1980 Depression Screening 1980 Hepatitis C Screening 1980 DTaP/Tdap/Td Vaccine (1 - Tdap) 11/29/1991 Varicella Vaccines (1 of 2 - 13+ 2-dose series) 1993 Hepatitis B Screening 1998 Regular Well Visit/Exam 18-64 1998 Pneumococcal vaccine <65 (2 of 2 - PCV) 08/18/2017 08/18/2016 Breast Cancer Screening-Mammogram 11/01/2022 11/01/2021, 08/27/2018, 08/27/2018, Additional history exists Covid-19 Vaccine (3 - season) 2023 05/27/2020, 04/30/2020 Influenza Vaccine (#1) 2023 3, 12/15/2021, 12/02/2020, Additional history exists HPV Vaccines Aged Out No longer eligi [...] Multiple sclerosis (HCC) High risk medication use from Last 3 Months Results * Immunoglobulins A/E/G/M, Serum (01/18/2024 2:58 PM CDT) Immunoglobulin A 71 47 - 310 mg/dL [facility] Immunoglobulin E 39 <NG=814 kU/L [facility] Immunoglobulin G 627 600 - 1,640 mg/dL [facility] Immunoglobulin M 50 50 - 300 mg/dL [facility] Blood 01/18/2024 2:58 PM CDT 01/18/2024 2:58 PM CDT us Jaylon See MD LAB BLOOD ORDERABLES Final Re sult [facility] [address] [place] [address] * (ABNORMAL) CBC with auto differential (01/18/2024 [...] BLOOD ORDERABLES Final Re sult [facility] [address] [place] [phone] * Comprehensive metabolic panel (01/18/2024 2:58 PM CDT) [facility] Glucose 90 65 - 99 mg/dL [facility] Comment: ? Fasting reference interval BUN 12 7 - 25 mg/dL [facility] Creatinine 0.70 0.50 - 0.99 mg/dL [facility] eGFR 110 > OR = 60 mL/min/1.7 3m2 [facility] BUN/creat ratio SEE NOTE: 6 - 22 (calc) [facility] Comment: ?? Not [...] MD LAB BLOOD ORDERABLES Final Re sult [facility] [address] [address] [place] [phone] from Last 3 Months Insurance [facility] Advance Directives For more information, please contact: [phone] * Full Code (Latest Code Status on File) Date Activated Date Inactivated Comments 12/29/2020 8:15 PM 01/03/2021 7:25 PM Care Teams Farmworker Bulbs Relationship Specialty Start Date End Date Joy Sheppard PA [address] [place] [address] PCP - General Physician Roading Engineer 07/12/23
--- OUTSIDE RECORDS SUMMARY | 2024-03-22 16:50 | XMS_ITS | Referral Summary ---
Author Organization [facility] Address [address] [place] [address] Care Team Providers Care Wax Ball Molder Name Role Phone Joy Sheppard Primary Care Provider [phone] Encounters Date Type Department Care Team Description 01/28/2024 1:00 PM LIBRARIAN ASSISTANT Office Visit [facility] in Care [address] [place] [phone] Bekah Larson PA Multiple sclerosis (HCC) (Primary Dx); Intractable chronic 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 without status migrainosus; High risk medication use 01/28/2024 9:00 AM LIBRARIAN ASSISTANT Infusion [facility] [address] [place] [address] [place] [phone] Multiple sclerosis (HCC) (Primary Dx) 01/22/2024 Orders Only [facility] [address] [place] [phone] Bekah Larson PA 01/21/2024 Telephone [facility] in Care [address] [place] [address] [place] [phone] Jaylon See MD Test Results 01/21/2024 Telephone [facility] in Care [address] [place] [address] [place] [phone] Gab Garsia Approval (Auth# [id number], 12/07/23-12/06/24) 12/21/2023 Telephone [facility] [address] [facility] [address] [place] [address] Nancy Marino RN from Last 3 Months Allergies Active Allergy Reactions Criticality Noted Date [...] worsen or fail to improve Paranoid schizophrenia ([facility]) 12/04/2017 Overview (07/31/2023): Last Assessment & Plan: Condition: stable Last mental health visit 04/2022 Medications: Taking medications as prescribed If taking medications, do not stop treatment without consulting healthcare provider. If symptoms worsen or do not improve/stabilize, notify health care provider right away. If thoughts of harming self or others notify health care provider immediately &/or seek urgent/emergent care including calling Suicide Hotline (801 or ) or 091. Follow up in if symptoms worsen or [...] help decrease stress. Disorder of skin 06/17/2006 Social History Tobacco Use Types Packs/Day Years [...] on file Legal Sex Female 6:27 AM LIBRARIAN ASSISTANT Gender Identity Not on file Sexual Orientation Not on file Last Filed Vital Signs Vital Sign Reading Time Taken Comments Blood Pressure 106/58 01/28/2024 12:47 PM LIBRARIAN ASSISTANT Pulse 77 01/28/2024 12:47 PM LIBRARIAN ASSISTANT Temperature 36.2 ??C (97.2 ??F) 01/28/2024 12:[address] Respiratory Rate 18 01/28/2024 12:25 PM LIBRARIAN ASSISTANT Oxygen Saturation 97% 01/28/2024 12:47 PM LIBRARIAN ASSISTANT Inhaled Oxygen Concentration - - Weight 69 kg (152 lb 1.6 oz) 01/28/2024 12:47 PM LIBRARIAN ASSISTANT Height 165.1 cm (5' 5 ) 01/28/2024 12:47 PM LIBRARIAN ASSISTANT Body Mass Index 25.31 01/28/2024 12:47 PM LIBRARIAN ASSISTANT Plan of Treatment Not on file Procedures Procedure Name Priority Date/Time Associated Diagnosis [...] mg/dL [facility] Immunoglobulin E 39 <TR=752 kU/L [facility] Immunoglobulin G 627 600 - 1,640 mg/dL [facility] Immunoglobulin M 50 50 - 300 mg/dL [facility] Blood 01/18/2024 2:5 8 PM CDT 01/18/2024 2:58 PM CDT us Jaylon See MD LAB BLOOD ORDERABLES Final Re sult [facility] [address] [place] [phone] * (ABNORMAL) CBC with auto differential (01/18/2024 2:58 PM CDT) Pathologist [facility] WBC 6.9 3.8 - 10.8 Thousand/u L [...] BLOOD ORDERABLES Final Re sult [facility] [address] [facility] [place] [address] * Comprehensive metabolic panel (01/18/2024 2:58 PM CDT) Pathologist [facility] Glucose 90 65 - 99 mg/dL [facility] [...] BLOOD ORDERABLES Final Re sult [facility] [address] [place] [address] from Last 3 Months Insurance [facility] Advance Directives For more information, please contact: [phone] * Full Code (Latest Code Status on File) Date Activated Date Inactivated Comments 12/29/2020 8:15 PM 01/03/2021 7:25 PM Care Teams Wax Ball Molder Relationship Specialty Start Date End Date Joy Sheppard PA [address] [place] [id number] PCP - General Physician Timber Buyer 07/12/23
--- OUTSIDE RECORDS SUMMARY | 2024-03-22 16:50 | XMS_ITS | Encounter Summary ---
Author Organization [facility] Address [address] [place] [address] Care Team Providers Care Scrap Bunch Maker Name Role Phone Joy Sheppard Primary Care Provider [phone] Reason for Visit * Reason Onset Date Comments Established [facility] patient 10/09/2023 Encounter Details Date Type Department Care Team ([facility] st Contact Info) Description 10/09/2023 Telephone [facility] in [facility] [address] [facility] [address] [place] [address] Jaylon See MD [address] [facility] [address] [place], [place] [phone] Established [facility] In[facility] patient Social History Tobacco Use Types Packs/Day Years [...] on file Legal Sex Female 6:27 AM E LEARNING DESIGNER Gender Identity Not on file Sexual Orientation Not on file documented as of this encounter Miscellaneous Notes * Telephone Encounter - Gab Garsia - 10/09/2023 11:53 AM CDT Spoke with Meredith to find out what her preferred lab is she said [facility] in [place], [place]. and I verified her last infusion was 06/22/2023. She will be due next on 12/22/23. I advised that I will have our infusion center reach out to get her on our schedule for her December infusion and that I will sendher a lab orders and reminder closer to when she is due for her next infusion. She said we can callher mom, cell- [phone] or her dad, [phone], If we are not able to reach her. documented in this encounter Plan of Treatment Not on file documented as of this encounter Visit Diagnoses Not on filedocumented in this encounter Care Teams Scrap Bunch Maker Relationship Specialty [place] [address] [place] [phone] PCP - General Physician Circular Stuffer 07/12/23 documented as of this encounter
--- OUTSIDE RECORDS SUMMARY | 2024-03-22 16:50 | XMS_ITS ---
Author Organization [facility] Address Unknown Problems Problem Status Start Date End Date ANXIETY DISORDER, UNSPECIFIED (F41.9 - ICD-10-CM) ACTI VE 09/13/2016 OTHER ASTHMA (J45.998 - ICD-10-CM) ACTIVE 2016 MENTAL DISORDER, NOT OTHERWISE SPECIFIED (F99 - ICD-10 -CM) ACTIVE 09/13/2016 MULTIPLE SCLEROSIS (G35 - ICD-10-CM) ACTIVE 08/18 OTHER SCHIZOPHRENIA (F20.89 - ICD-10-CM) ACTIVE 09/13/2016 OTHER SEIZURES (G40.89 - ICD-10-CM) ACTIVE 09/13 OTHER MIGRAINE, NOT INTRACTA BLE, WITHOUT STATUS MIGRAINOSUS (G43.809 - ICD-10-CM) ACTIVE 09/13/2016 OTHER INSOMNIA (G47.09 - ICD-10-CM) ACTIVE 09/13 GASTRO-ESOPHAGEAL REFLUX DIS EASE WITHOUT ESOPHAGITIS (K21.9 - ICD-10-CM) ACTIVE 09/13/2016 Results * CBC W/DIFF Performed by: [employer] New Component Value Range Date HEMOGLOBIN 10.2 g/dL 12.0-16.0 09/29/2016 05:3 7 pm EDT * CMP-COMPREHENSIVE METABOLIC PNL Performed by: [employer] New Component Value Range Date POTASSIUM 4.1 mEq/L 3.5-5.3 09/29/2016 05:3 7 pm EDT SODIUM 143 mEq/L 135-145 09/29/2016 05:3 7 pm EDT BUN (UREA NITROGEN) 22 mg/dL 7-25 09/30/19 17 05:37 pm EDT CARBON DIOXIDE (CO2) 23 mEq/L 21-33 017 05:37 pm EDT CHLORIDE 110 mEq/L 96-110 09/29/2016 05:3 7 pm EDT * CBC W/DIFF Performed by: [employer] New Component Value Range Date RBC 3.95 M/cmm 3.90-5.40 09/29/2016 05:3 7 pm EDT MCHC 32.0 g/dL 31.0-36.5 09/29/2016 05:3 7 pm EDT MCH 25.7 pg 26.0-35.0 09/29/2016 05:3 7 pm EDT HEMATOCRIT 31.7 % 36.0-48.0 09/29/2016 05:3 7 pm EDT WBC 8.5 K/cmm 4.5-10.8 09/29/2016 05:3 7 pm EDT * CMP-COMPREHENSIVE METABOLIC PNL Performed by: [employer] New Component Value Range Date ALT (SGPT) 8 IU/L 4-55 09/29/2016 05:3 7 pm EDT * CBC W/DIFF Performed by: [employer] New Component Value Range Date PLATELET 362 K/cmm 150-450 09/29/2016 05:3 7 pm EDT * CMP-COMPREHENSIVE METABOLIC PNL Performed by: [employer] New Component Value Range Date AST (SGOT) 8 IU/L 4-40 09/29/2016 05:3 7 pm EDT ALBUMIN 3.8 g/dL 3.5-5.5 09/29/2016 05:3 7 pm EDT PROTEIN, TOTAL 5.7 g/dL 6.0-8.3 09/29/2016 05 :37 pm EDT ALKALINE PHOS 47 IU/L 34-136 09/29/2016 05: 37 pm EDT * CBC W/DIFF Performed by: [employer] New Component Value Range Date RDW 15.6 % 11.0-16.0 09/29/2016 05:3 7 pm EDT NEUTROPHILS 57.9 % 40.0-80.0 09/29/2016 05:3 7 pm EDT BASO (ABSOLUTE) 0.10 K/uL 0.00-0.30 09/29/2016 0 5:37 pm EDT * CMP-COMPREHENSIVE METABOLIC PNL Performed by: [employer] New Component Value Range Date NNF-TKH-CQRQEUY 82 mL/min/1.73 m2 >60 09/29/2016 05:37 pm EDT GFR- 99 mL/min/1.73 m2 >60 05:37 pm EDT * CBC W/DIFF Performed by: [employer] New Component Value Range Date MCV 80.3 fL 80.0-100.0 09/29/2016 05:3 7 pm EDT LYMPHS (ABSOLUTE) 2.50 K/uL 0.90-5.50 09/29/2016 05:37 pm EDT MONOCYTES 6.2 % 2.0-12.0 09/29/2016 05:3 7 pm EDT LYMPHS 28.8 % 13.0-48.0 09/29/2016 05:3 7 pm EDT BASO 0.9 % 0.0-2.0 09/29/2016 05:3 7 pm EDT EOS 6.2 % 0.0-8.0 09/29/2016 05:3 7 pm EDT NEUTS (ABSOLUTE) 4.90 K/uL 1.50-7.60 09/29/2016 05:37 pm EDT EOS (ABSOLUTE) 0.50 K/uL 0.20-0.80 09/29/2016 05 :37 pm EDT MONOCYTES (ABSOLUTE) 0.50 K/uL 0.15-1.10 017 05:37 pm EDT * CMP-COMPREHENSIVE METABOLIC PNL Performed by: [employer] New Component Value Range Date BUN/CREATININE RATIO 28 6-34 017 05:37 pm EDT A/G RATIO 2.0 0.8-2.0 09/29/2016 05:3 7 pm EDT * CBC W/DIFF Performed by: [employer] New Component Value Range Date MPV 6.9 fL 6.5-12.0 09/29/2016 05:3 7 pm EDT * CMP-COMPREHENSIVE METABOLIC PNL Performed by: [employer] New Component Value Range Date CREATININE 0.8 mg/dL 0.6-1.3 09/29/2016 05:3 7 pm EDT GLUCOSE 58 09/29/2016 05:3 7 pm EDT CALCIUM 9.3 mg/dL 8.4-10.2 09/29/2016 05:3 7 pm EDT BILIRUBIN, TOTAL 0.2 mg/dL 0.2-1.2 09/29/2016 05:37 pm EDT * Individual Tests: CMP-COMPREHENSIVE METABOLIC PNL / CBC W/DIFF / VITAMIN B12 / VITAMIN D 25-OH TOTAL Performed by: [employer] New Component Value Range Date VITAMIN B12 240 pg/mL 211-911 09/29/2016 05:3 7 pm EDT * CBC W/DIFF Performed by: [facility] [employer] New Component Value Range Date HYPOCHROMASIA 1+ NEGATIVE 09/29/2016 05: 37 pm EDT * Individual Tests: CMP-COMPREHENSIVE METABOLIC PNL / CBC W/DIFF / VITAMIN B12 / VITAMIN D 25-OH TOTAL Performed by: [employer] New Component Value Range Date VITAMIN D, 25-OH TOTAL 53 >29 ng/mL 09/29 05:37 pm EDT Encounters Encounter Performer Performer Role Encounter Diagnoses Location Date Leave - [facility] ([place] - [facility] 09/13/2016 04:00 pm EDT - 10/10/2016 10:00 pm EDT Discharge - Discharged to home or self care - Home - Private home/apt. with no home health services [facility] 10/14/2016 04:21 pm EDT - 11/03/2016 06:45 pm EDT Reason For Referral dizziness Immunizations Vaccine Date Influenza Pneumovax Dose 1 08/18/2016 01:00 am EDT TB 1 Step [place] (PPD) 09/15/2016 01:00 am EDT TB 2 Step [place] Skin Test 09/28/2016 0 1:00 am EDT Social History
--- OUTSIDE RECORDS SUMMARY | 2024-03-22 16:50 | XMS_ITS | Data Portability ---
Author Organization 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 Patient will come back in a year unless there are new symptoms. [email or web address] Not available 01/31/2023 09:06:35 Plan of Treatment Reminders Order Date Submit Date Provider Last Modified By Organization Details Last Modified Time Details Appointments None recorded. Lab hbcab (hepatitis B core Ab) igm, serum [address] [facility] (Lab), [address], [place], [address], 3 20:37:42 HBsAg (hepatitis B surface Ag), serum [address] [facility] (Lab), [address], [place], [address], 3 20:37:41 hepatitis C virus Ab, serum [address] [facility] (Lab), [address], [place], [address], 3 20:37:41 unlisted lab - HIV 1/2 antigen/ant ibody, reflex confirmatio n [address] [facility] (Lab), [address], [place], [address], 3 20:37:42 RPR (rapid plasma reagin), serum [address] [facility] (Lab), [address], [place], [address], 3 20:37:42 hbcab (hepatitis B core Ab) igm, serum [address] [facility] (Lab), [address], [place], [address], 4 22:49:44 HBsAg (hepatitis B surface Ag), serum [address] [facility] (Lab), [address], [place], [address], 4 22:49:43 hepatitis C virus Ab, serum [address] [facility] (Lab), [address], [place], [address], 4 22:49:43 unlisted lab - HIV 1/2 antigen/ant ibody, reflex confirmatio n [address] [facility] (Lab), [address], [place], [address], 4 22:49:42 RPR (rapid plasma reagin), serum [address] [facility] (Lab), [address], [place], [address], 4 22:49:44 Referral None recorded. Procedures None recorded. Surgeries None recorded. Imaging MAMMO, screening, bilateral 2022 023 [facility], [address] [address], [place], [address], 4 16:55:02 Medication Orders Diflucan 200 mg tablet 2022 023 [email or web address] 1 [facility] #[id number], [address], [place], [id number], 3 15:17:08 metronidazo le 0.75 % (37.5 mg/5 gram) vaginal gel 2023 024 [email or web address] [facility] #[id number], [address], [place], [id number], 4 15:52:02 Diflucan 150 mg tablet 2023 024 [email or web address] [facility] #[id number], [address], [place], [id number], 4 16:27:30 Patient TargetsNo targets recorded. Patient InstructionsNo instructions recorded. Reason for Referral None Reported. Results Created Date Observation Date Name Description Value Unit Range Abnormal Flag Note LastModifiedBy Organization Detail LastModifiedTime 10/04/1910/03/2022 CT/GC AND TRICH OMONA S VAGIN ROSANGELA (RRNA ), SWAB chlamydia trachomatis, PCR NEGATI VE negati ve Not Available [facility] (Lab) [address] , [place], [address], 10/04/2022 12:06:50 10/04/19 23 10/03/2022 CT/GC AND TRICH OMONA S VAGIN ROSANGELA (RRNA ), SWAB neisseria gonorrhoeae, PCR NEGATI VE negati ve Not Available [facility] (Lab) [address] , [place], [address], 10/04/2022 12:06:50 10/04/19 23 10/03/2022 CT/GC AND TRICH OMONA S VAGIN ROSANGELA (RRNA ), SWAB trichomonas vaginalis ribosomal RNA (rrna) NEGATI VE negati ve Not Available [facility] (Lab) [address] [place], [address], 10/04/2022 12:06:50 03/13/20 23 03/13/2023 VAGIN ITIS/ VAGIN OSIS, DNA PROBE aaron sp. detection, direct probe Negati ve negati ve Not Available [facility] (Lab) [address], [place], [address], 03/14/2023 15:15:28 03/13/20 23 03/13/2023 VAGIN ITIS/ VAGIN OSIS, DNA PROBE gardnerella vag. detection, direct probe Positi ve negati ve abnormal Not Available [facility] (Lab) [address], [place], [address], 03/14/2023 15:15:28 03/13/20 23 03/13/2023 VAGIN ITIS/ VAGIN OSIS, DNA PROBE trichomonas vag. detection, direct probe Negati ve negati ve Not Available [facility] (Lab) [address], [place], [address], 03/14/2023 15:15:28 03/13/20 23 03/13/2023 CT/GC (TRUDI) , SWAB chlamydia trachomatis, PCR Negati ve negati ve Not Available [facility] (Lab) [address], [place], [address], 03/14/2023 15:15:28 03/13/20 23 03/13/2023 CT/GC (TRUDI) , SWAB neisseria gonorrhoeae, PCR Negati ve negati ve Not Available [facility] (Lab) [address], [place], [address], 03/14/2023 15:15:28 03/13/20 23 03/13/2023 HEPAT ITIS C ANTIB SYMONE SCREE N, REFLE X TO CONFI RMATI ON hepatitis C antibody Non-re active non-re active Antib odies to HCV Not Detec mayra, does not exclu de the possi bilit y of expos ure to HCV. Not Available [facility] (Lab) [address], [place], [address], 03/14/2023 20:37:41 03/13/20 23 03/13/2023 HEPAT ITIS B SURFA CE ANTIG EN hepatitis B surface antigen Non-re active non-re active This assay was perfo rmed using [employer] ratio n reage nts and test kits. Value s obtai abdon with other assay metho ds or kits canno t be used inter florian eably . Not Available [facility] (Lab) [address], [place], [address], 03/14/2023 20:37:41 03/13/20 23 03/13/2023 HIV 1/2 ANTIG EN/AN TIBOD Y, REFLE X CONFI RMATI ON HIV antigen/anti body Nonrea ctive nonrea ctive HIV-1 antig en and HIV-1 /HIV- 2 antib odies were not detec mayra. No labor atory evide nce of HIV infec tion. Not Available [facility] (Lab) [address] , [place], [address], 03/14/2023 20:37:42 03/13/20 23 03/13/2023 SYPHI LIS, RPR SCREE N, REFLE X/TIT RE/CO NFIRM ATION RPR screen Nonrea ctive nonrea ctive Not Available [facility] (Lab) [address], [place], [address], 03/14/2023 20:37:42 03/13/20 23 03/13/2023 HEPAT ITIS B CORE, IGM hepatitis B core IgM antibody Negati ve negati ve Not Available [facility] (Lab) [address], [place], [address], 03/14/2023 20:37:42 05/14/19 24 05/14/2023 VAGIN ITIS/ VAGIN OSIS, DNA PROBE aaron sp. detection, direct probe Negati ve negati ve Not Available [facility] (Lab) [address], [place], [address], 05/15/2023 18:44:41 05/14/19 24 05/14/2023 VAGIN ITIS/ VAGIN OSIS, DNA PROBE gardnerella vag. detection, direct probe Positi ve negati ve abnormal Not Available [facility] (Lab) [address], [place], [address], 05/15/2023 18:44:41 05/14/19 24 05/14/2023 VAGIN ITIS/ VAGIN OSIS, DNA PROBE trichomonas vag. detection, direct probe Negati ve negati ve Not Available [facility] (Lab) [address], [place], [address], 05/15/2023 18:44:41 05/14/19 24 05/14/2023 CT/GC AND TRICH OMONA S VAGIN ROSANGELA (RRNA ), SWAB chlamydia trachomatis, PCR Negati ve negati ve Not Available [facility] (Lab) [address], [place], [address], 05/15/2023 18:44:42 05/14/19 24 05/14/2023 CT/GC AND TRICH OMONA S VAGIN ROSANGELA (RRNA ), SWAB neisseria gonorrhoeae, PCR Negati ve negati ve Not Available [facility] (Lab) [address], [place], [address], 05/15/2023 18:44:42 05/14/19 24 05/14/2023 CT/GC AND TRICH OMONA S VAGIN ROSANGELA (RRNA ), SWAB trichomonas vaginalis ribosomal RNA (rrna) Negati ve negati ve Not Available [facility] (Lab) [address], [place], [address], 05/15/2023 18:44:42 06/26/19 24 06/26/2023 VAGIN ITIS/ VAGIN OSIS, DNA PROBE aaron sp. detection, direct probe Negati ve negati ve Not Available [facility] (Lab) [address], [place], [address], 06/27/2023 12:21:23 06/26/19 24 06/26/2023 VAGIN ITIS/ VAGIN OSIS, DNA PROBE gardnerella vag. detection, direct probe Positi ve negati ve abnormal Not Available [facility] (Lab) [address], [place], [address], 06/27/2023 12:21:23 06/26/19 24 06/26/2023 VAGIN ITIS/ VAGIN OSIS, DNA PROBE trichomonas vag. detection, direct probe Negati ve negati ve Not Available [facility] (Lab) [address], [place], [address], 06/27/2023 12:21:23 07/19/19 24 06/08/2023 MAMMO , scree alecia, bilat eral No observ ation record ed. [address], [place], [address], 08/02/2023 04:47:18 Result Notes None recorded. Problems Name Problem SNOMED Code Status Onset Date Resolution Date Notes Provider Name and Address Organization Details Recorded Time Acute vaginiti s [id number] Completed 201710/06/2020 Acute vulvovagi nitis;Rec orded Elsewhere : No Locati on: [facility] So urce: EHR Chron ic: N Practic e ID: [id number] Bill able Time: 09:30:00 AM Regla [facility] 1 10:56:59 Syphilis test finding [id number] Completed 201610/06/2020 Encntr screen for infection s w sexl mode of transmiss ;Recorded Elsewhere : No Locati on: [facility] So urce: EHR Chron ic: N Practic e ID: [id number] Bill able Time: 02:00:00 PM Regla Drummond [facility] 10:57:08 Infectio n screenin g Completed 201610/06/2020 Encounter for screening for oth infec/par astc diseases; Recorded Elsewhere : No Locati on: [facility] So urce: EHR Chron ic: N Practic e ID: [id number] Bill able Time: 02:00:[address] [facility] 1 10:57:04 Vaginola bial hernia Completed 201610/06/2020 Other specified noninflam matory disorders of vagina;Re corded Elsewhere : No Locati on: [facility] So urce: EHR Chron ic: N Practic e ID: [id number] Bill able Time: 02:00:[address] [facility] 1 10:57:10 Evaluati on finding Completed 201710/06/2020 Hematuria , unspecifi ed;Record ed Elsewhere : No Locati on: [facility] So urce: EHR Chron ic: N Practic e ID: [id number] Bill able Time: 02:30:00 PM Regla Drummond [facility] [address] 10:57:[address] Concept Completed 201810/06/2020 Encntr for general adult medical exam w/o abnormal findings; Recorded Elsewhere : No Locati on: [facility] So urce: EHR Chron ic: N Practic e ID: [id number] Bill able Time: 01:00:[address] [facility] [address] 10:57:[address] Concept Completed 201810/06/2020 Encntr for ob/gyn physician exam (general) (routine) w/o abn findings; Recorded Elsewhere : No Locati on: [facility] So urce: EHR Chron ic: N Practic e ID: [id number] Bill able Time: 01:00:[address] [facility] 1 10:57:07 Female genitali a finding Completed 201610/06/2020 Foreign body in vagina, initial encounter ;Recorded Elsewhere : No Locati on: [facility] So urce: EHR Chron ic: N Practic e ID: [id number] Bill able Time: 09:30:[address] [facility] 10:57:02 Problem Notes None recorded. Procedures Surgical History Date Name Laterality Status Provider Name and Address Organization Details Recorded Time 2023 Date of Last Mammogram completed Pearl Mccain [facility] 06/26/2023 15:53:49 2022 Date of Last Pap Smear completed Kathleen Almodovar [facility] 03/13/2023 10:08:17 2022 [facility] migraine completed Kathleen Almodovar [facility] 03/13/2023 15:26:27 2022 [facility] migraine completed Kathleen Almodovar [facility] 03/13/2023 15:26:20 2021 [facility] migraine completed Kathleen Almodovar [facility] 03/13/2023 15:26:14 2021 [facility] migraine completed Kathleen Almodovar [facility] 03/13/2023 15:26:09 2021 IUD Removal completed Radha Mathis [facility]- [address], [place], [address], [facility] 08/22/2021 10:15:47 2021 [facility] migraine completed Kathleen Almodovar [facility] 03/13/2023 15:26:05 2020 [facility] migraine completed Kathleen Almodovar [facility] 03/13/2023 15:26:00 2020 electroencephalogram completed Kathleen Almodovar [facility] 03/13/2023 15:46:21 2020 electroencephalogram completed Kathleen Almodov[address] [facility] 03/13/2023 15:46:26 2020 [facility]ogram [facility] 03/13/2023 15:46:32 2020 [facility] migraine completed Kathleen Almodovar [facility] 03/13/2023 15:25:54 2020 IUD Insertion completed Radha Mathis [facility]- [address], [place], [address], [facility] 10/18/2020 12:40:49 2020 [facility] migraine [facility] 03/13/2023 15:25:45 2020 [facility] migraine [facility] 03/13/2023 15:25:36 2019 [facility] migraine completed Kathleen Almodov[facility] 03/13/2023 15:25:30 2019 [facility] migraine [facility] 03/13/2023 15:25:25 2018 [facility] migraine completed Kathleenprema Almodovar [facility] 03/13/2023 15:25:15 2017 [facility] migraine completed Kathleen Almodovar [facility] 03/13/2023 15:25:10 2017 [facility] migraine completed Kathleen Almodovar [facility] 03/13/2023 15:25:05 2017 [facility] migraine [facility] 03/13/2023 15:25:00 1997 procedure on knee [facility] 03/20/2022 22:35:41 Tonsillectomy completed Kathleen Almodovar [facility] 03/13/2023 15:18:26 Imaging Results Imaging Date Name Status LastModified by Organiz ation Details LastModified Time 06/08/2023 MAMMO, screening, bilateral active [facility] [address], [place], [address], 08/02/2023 04:47:18 Procedure Notes None recorded. Medical Equipment None Reported. Allergies No known drug allergies Medications Name Sig Start Date Stop Date Status Note LastModified by Organization Details LastModified Time prednison e 10 mg tablet 02/02 completed Not Available Not Available Not Available tretinoin 0.01 % topical gel 07/07 completed Not Available Not Available Not Available clindamyc in HCl 300 mg capsule 12/23 completed Not Available Not Available Not Available trazodone 50 mg tablet TAKE 1 TABLET BY MOUTH EVERY NIGHT NEEDED FOR INSOMNIA active Not Available Not Available No t Available ibuprofen 800 mg tablet TAKE 1 TABLET BY MOUTH DAILY NEEDED FOR PAIN active Not Available Not Available No t Available nystatin 100,000 unit/gram topical ointment APPLY TO THE AFFECTED AREA(S) BY TOPICAL ROUTE 2 TIMES PER DAY 03/13 completed Not Available Not Available Not Available fluconazo le 150 mg tablet TAKE 1 TABLET BY MOUTH EVERY DAY FOR 1 DAY DIRECTED FOR YEAST active Not Available Not Available No t Available levetirac etam 500 mg tablet TAKE 1 TABLET BY MOUTH TWICE DAILY 01/31 completed Not Available Not Available Not Available hydrocodo ne 5 mg-acetam inophen 325 mg tablet 07/13 completed Not Available Not Available Not Available tretinoin 0.025 % topical cream apply by topical route every day to the affected area(s) 07/07 completed Prescrib ed Elsewher e: Yes Loca tion: [facility] M odify By: katya aranda DateTime : 01/02/20 10:30:00 AM Not Available Not Available Not Available fluconazo le 200 mg tablet TAKE 1 TABLET BY MOUTH EVERY OTHER DAY FOR 3 DOSES 03/13 completed Not Available Not Available Not Available ibuprofen 200 mg capsule take 1 capsule by oral route every 6 hours as needed 10/06 completed Prescrib ed Elsewher e: Yes Loca tion: [facility] odify By: katya aranda DateTime : 01/02/20 18 10:30:00 AM Not Available Not Available Not Available metronida zole 0.75 % (37.5 mg/5 gram) vaginal gel INSERT 1 APPLICAT ORFUL VAGINALL Y AT BEDTIME FOR 5 NIGHTS 06/25 completed Not Available Not Available Not Available prednison e 20 mg tablet TAKE 1 TABLET BY MOUTH EVERY DAY FOR 5 DAYS 01/10 completed Not Available Not Available Not Available clonazepa m 0.5 mg tablet TAKE 1 TABLET BY MOUTH AT BEDTIME 11/04 completed Not Available Not Available Not Available prednison e 5 mg tablet 02/02 completed Not Available Not Available Not Available benzoyl peroxide 10 % topical cleanser WASH FACE AND BODY WITH ONCE DAILY 10/06 completed Not Available Not Available Not Available Cleocin 100 mg vaginal supposito ry INSERT ONE SUPPOSIT ORY VAGINALL Y AT BEDTIME FOR 3 DAYS FOR BACTERIA L VAGINOSI S active Not Available Not Available No t Available metronida zole 250 mg tablet TAKE 2 TABLETS BY MOUTH EVERY 8 HOURS 03/06 completed Not Available Not Available Not Available sumatript an 5 mg/actuat ion nasal spray spray 1 spray by intranas al route once; if headache returns, dose may be repeated once after 2 hours, not to exceed 40 mg per day 07/13 completed Prescrib ed Elsewher e: Yes Loca tion: [facility] odify By: katya aranda DateTime : 01/02/20 18 10:30:00 AM Not Available Not Available Not Available clindamyc in HCl 150 mg capsule 12/23 completed Not Available Not Available Not Available metronida zole 500 mg tablet TAKE 4 TABLETS BY MOUTH TWICE DAILY FOR 7 DAYS 03/06 completed Not Available Not Available Not Available hydroxyzi ne HCl 50 mg tablet active Not Available Not Available No t Available tretinoin 0.05 % topical cream APPLY PEA SIZED AMOUNT TOPICALL Y TO FACE AT NIGHT active Not Available Not Available No t Available ciproflox acin 500 mg tablet TAKE 1 TABLET BY MOUTH EVERY 12 HOURS 01/12 /2022 completed Not Available Not Available Not Available sulfameth oxazole 800 mg-trimet hoprim 160 mg tablet 07/07 completed Not Available Not Available Not Available acetamino phen 500 mg tablet TAKE 1 TABLET BY MOUTH EVERY 6 HOURS NEEDED FOR PAIN. 03/13 completed Not Available Not Available Not Available butalbita l-acetami nophen-ca ffeine 50 mg-325 mg-40 mg tablet 12/23 completed Not Available Not Available Not Available nystatin- triamcino lone 100,000 unit/gram -0.1 % topical ointment APPLY TOPICALL Y TO THE AFFECTED AREA TWICE DAILY FOR 5 DAYS NEEDED 10/03 completed Not Available Not Available Not Available zonisamid e 100 mg capsule TAKE 5 CAPSULES BY MOUTH EVERY NIGHT AT BEDTIME active Not Available Not Available No t Available alprazola m 0.5 mg tablet TAKE 1 TABLET BY MOUTH 30 MINUTES BEFORE MRI. MAY REPEAT ONCE. BRING SOMEONE TO DRIVE YOU 10/03 completed Not Available Not Available Not Available betametha sone valerate 0.1 % topical cream APPLY THIN LAYER TOPICALL Y TO THE AFFECTED AREA EVERY DAY 10/03 completed Not Available Not Available Not Available phenazopy ridine 100 mg tablet TAKE 1 TABLET BY MOUTH THREE TIMES DAILY FOR 7 DAYS NEEDED 10/03 completed Not Available Not Available Not Available baclofen 10 mg tablet TAKE 1 TABLET BY MOUTH TWICE DAILY FOR MUSCLE SPASMS. MAY CAUSE DROWSINE SS active Not Available Not Available No t Available doxycycli ne monohydra te 100 mg capsule 12/23 completed Not Available Not Available Not Available cephalexi n 500 mg capsule 02/02 completed Not Available Not Available Not Available pantopraz ole 40 mg tablet,de layed release active Not Available Not Available Not Available triamcino lone acetonide 0.1 % topical ointment APPLY THIN LAYER TOPICALL Y TO THE AFFECTED AREA TWICE DAILY FOR 7 DAYS NEEDED 01/31 completed Not Available Not Available Not Available clotrimaz ole-betam ethasone 1 %-0.05 % topical cream 07/13 completed Not Available Not Available Not Available benztropi ne 1 mg tablet take 1 tablet by oral route 2 times every day 07/07 completed Prescrib ed Elsewher e: Yes Loca tion: [facility] M odify By: rosa z Encoun ter DateTime : 11/09/19 17 09:30:00 AM Not Available Not Available Not Available triamcino lone acetonide 0.025 % topical ointment APPLY THIN LAYER TOPICALL Y TO THE AFFECTED AREA TWICE DAILY FOR 7 DAYS NEEDED 01/31 completed Not Available Not Available Not Available docusate sodium 100 mg capsule TAKE 1 CAPSULE BY MOUTH EVERY 12 HOURS active Not Available Not Available No t Available gentamici n 0.1 % topical cream 12/23 completed Not Available Not Available Not Available folic acid 1 mg tablet TAKE 1 TABLET BY MOUTH EVERY DAY active Not Available Not Available No t Available hydroxyzi ne HCl 25 mg tablet take 1 tablet by oral route 3 times every day as needed 10/06 completed Prescrib ed Elsewher e: Yes Loca tion: [facility] odify By: rosa z Encoun ter DateTime : 11/09/19 17 09:30:00 AM Not Available Not Available Not Available halobetas ol propionat e 0.05 % topical cream GRACY TO RASH ON LOWER LEGS UP TO BID 07/13 completed Not Available Not Available Not Available ranitidin e 150 mg capsule take 1 capsule by oral route 2 times every day 07/07 completed Prescrib ed Elsewher e: Yes Loca tion: [facility] odify By: katya aranda DateTime : 01/02/20 18 10:30:00 AM Not Available Not Available Not Available albuterol sulfate HFA 90 mcg/actua tion aerosol inhaler INHALE 2 PUFFS BY MOUTH EVERY 4 HOURS NEEDED active Not Available Not Available No t Available ketoconaz ole 2 % topical cream APPLY IN BETWEEN TOES EVERY DAY 10/06 completed Not Available Not Available Not Available cefdinir 300 mg capsule TAKE 1 CAPSULE BY MOUTH EVERY 12 HOURS 03/06 completed Not Available Not Available Not Available fluticaso ne propionat e 50 mcg/actua tion nasal spray,lb pension SHAKE LIQUID AND USE 2 SPRAYS IN EACH NOSTRIL EVERY DAY active Not Available Not Available No t Available clotrimaz ole 1 % topical cream APPLY TOPICALL Y TO THE AFFECTED AND SURROUND ING AREAS OF SKIN TWICE DAILY IN THE MORNING AND EVENING 10/03 completed Not Available Not Available Not Available doxycycli ne hyclate 100 mg tablet TAKE 1 TABLET BY MOUTH EVERY 12 HOURS 10/03 completed Not Available Not Available Not Available Calci-Mix 500 mg (as calcium carbonate 1,250 mg) capsule 07/07 completed Prescrib ed Elsewher e: Yes Loca tion: [facility] odify By: katya aranda DateTime : 01/02/20 10:30:00 AM Not Available Not Available Not Available amoxicill in 875 mg-potass ium clavulana te 125 mg tablet TAKE 1 TABLET BY MOUTH EVERY 12 HOURS 01/10 completed Not Available Not Available Not Available Topamax 15 mg sprinkle capsule take 1 capsule by oral route 2 times every day in the morning and evening 01/01 completed Prescrib ed Elsewher e: Yes Loca tion: [facility] odify By: katya aranda DateTime : 04/10/19 17 02:00:00 PM Not Available Not Available Not Available Botox 100 unit injection 07/07 completed Prescrib ed Elsewher e: Yes Loca tion: [facility] odify By: katya aranda DateTime : 01/02/20 18 10:30:00 AM Not Available Not Available Not Available erythromy chelsie 250 mg capsule,d elayed release take 1 capsule by oral route every 6 hours 10/06 completed Prescrib ed Elsewher e: Yes Loca tion: [facility] odify By: katya aranda DateTime : 01/02/20 18 10:30:00 AM Not Available Not Available Not Available tretinoin microsphe res 0.04 % topical gel APPLY PEA SIZED AMOUNT TOPICALL Y TO FACE AT NIGHT active Not Available Not Available No t Available escitalop feliciano 10 mg tablet TAKE 1 TABLET BY MOUTH EVERY DAY active Not Available Not Available No t Available escitalop feliciano 20 mg tablet TAKE 1 TABLET BY MOUTH EVERY DAY active Not Available Not Available No t Available aripipraz ole 15 mg tablet TAKE 1 TABLET BY MOUTH AT BEDTIME 06/25 completed Not Available Not Available Not Available aripipraz ole 5 mg tablet TAKE 1 TABLET BY MOUTH AT BEDTIME FOR MAJOR DEPRESSI ON active Not Available Not Available No t Available zonisamid e 25 mg capsule take 2 capsule by oral route 2 times every day 07/07 completed Prescrib ed Elsewher e: Yes [facility] odify By: katya Charles ncounter DateTime : 01/02/20 10:30:00 AM Not Available Not Available Not Available erythromy chelsie with ethanol 2 % topical solution GRACY EXT TO ENTIRE FACE 1 TO 2 TIMES D 10/06 completed Not Available Not Available Not Available tinidazol e 500 mg tablet TAKE 4 TABLETS BY MOUTH EVERY DAY WITH MEALS FOR 7 DAYS 01/31 completed Not Available Not Available Not Available ibuprofen 10/06 completed Not Available Not Available Not Available alprazola m 11/29 completed Not Available Not Available Not Available Botox 07/07 completed Not Available Not Available Not Available Vitamin D3 07/07 completed Not Available Not Available Not Available Clindamyc in 10/06 completed Not Available Not Available Not Available levetirac etam 1,000 mg tablet TAKE 1 TABLET BY MOUTH TWICE DAILY 06/25 completed Not Available Not Available Not Available Symbicort 160 mcg-4.5 mcg/actua tion HFA aerosol inhaler INHALE 2 PUFFS BY MOUTH TWICE DAILY active Not Available Not Available No t Available Symbicort 80 mcg-4.5 mcg/actua tion HFA aerosol inhaler 05/04 completed Not Available Not Available Not Available Vit 3 500 mg-500 mcg-1 mg-12.5 mg capsule 07/07 completed Prescrib ed Elsewher e: Yes Loca tion: [facility] odify By: katya Charles ncounter DateTime : 01/02/20 10:30:00 AM Not Available Not Available Not Available lacosamid e 200 mg tablet TAKE 1 TABLET BY MOUTH TWICE DAILY active Not Available Not Available No t Available Vimpat 100 mg tablet TAKE 1 TABLET BY MOUTH TWICE DAILY 07/13 completed Not Available Not Available Not Available Vitamin B-1 (mononitr ate) 100 mg tablet TAKE 1 TABLET BY MOUTH EVERY DAY 01/31 completed Not Available Not Available Not Available Gynazole- 1 2 % vaginal cream insert 1 applicat orful by vaginal route once 10/06 completed Prescrib ed Elsewher e: No Locat ion: [facility] odify By: chiki aranda DateTime : 01/11/20 11:27:26 AM Not Available Not Available Not Available Abilify Maintena 300 mg intramusc ular suspensio n,extende d release inject by intramus cular route every month 07/07 completed Prescrib ed Elsewher e: Yes Loca tion: [facility] odify By: [email or web address] aparicio DateTime : 11/09/19 09:30:00 AM Not Available Not Available Not Available Acne Cleansing Bar 10 % wash by topical route every day the affected area(s) 07/07 completed Prescrib ed Elsewher e: Yes Loca tion: [facility] odify By: katya aranda DateTime : 01/02/20 10:30:00 AM Not Available Not Available Not Available Abilify Maintena 300 mg suspensio n,extende d rel. intramusc ular syringe INJECT 300 MG INTO THE MUSCLE EVERY 28 DAYS 10/03 completed Not Available Not Available Not Available Flonase Allergy Relief 07/07 completed Not Available Not Available Not Available ProAir RespiClic k 90 mcg/actua tion breath activated inhale 2 puff by inhalati on route every 4 - 6 hours as needed 07/13 completed Not Available Not Available Not Available Aristada 662 mg/2.4 mL suspensio n, extend.re l. IM syringe 01/31 completed Not Available Not Available Not Available Briviact 100 mg tablet TAKE 1 TABLET BY MOUTH TWICE DAILY 01/31 completed Not Available Not Available Not Available Briviact 75 mg tablet TAKE 2 TABLETS BY MOUTH TWICE DAILY active Not Available Not Available No t Available Ocrevus 30 mg/mL intraveno us solution infuse by intraven ous route every 6 months over at least (maximum infusion rate 200 mL/hr) 01/31 completed Prescrib ed Elsewher e: Yes Loca tion: [facility] odify By: katya Gustavo manoj DateTime : 01/02/20 10:30:00 AM Not Available Not Available Not Available Ocrevus 07/07 completed Not Available Not Available Not Available fluticaso ne 113 mcg-salme terol 14 mcg/actua tion breath activated powdr 12/23 completed Not Available Not Available Not Available Flucelvax Quad (PF) 60 mcg (15 mcg x 4)/0.5 mL IM syringe 12/23 completed Not Available Not Available Not Available Slynd 4 mg (28) tablet Take 1 tablet every day by oral route for 90 days. 10/06 completed Not Available Not Available Not Available Vitals Date Recorded Body height Body mass index (BMI) Body weight Systolic blood pressure Diastolic blood pressure Provider Name and Address Organization Details Last Updated DateTime 10/03/2022 160.02 cm 26 kg/m2 88123.08 g 116 mm[Hg] 74 mm[Hg] [facility] 3 09:33:37 Date Recorded Body height Body mass index (BMI) Body weight Systolic blood pressure Diastolic blood pressure Provider Name and Address Organization Details Last Updated DateTime 01/31/2023 160.02 cm 26.7 kg/m2 77978.45 g 125 mm[Hg] 61 mm[Hg] Pearl Mccain [facility] 3 09:09:29 Date Recorded Body height Body mass index (BMI) Body weight Systolic blood pressure Diastolic blood pressure Provider Name and Address Organization Details Last Updated DateTime 03/13/2023 160.02 cm 26.7 kg/m2 20970.45 g 122 mm[Hg] 78 mm[Hg] Kathleen Almodovar [facility] 3 15:16:35 Date Recorded Body height Body mass index (BMI) Body weight Systolic blood pressure Diastolic blood pressure Provider Name and Address Organization Details Last Updated DateTime 05/14/2023 160.02 cm 25.3 kg/m2 88929.71 g 112 mm[Hg] 70 mm[Hg] Kathleen Almodovar [facility] 4 09:05:33 Date Recorded Body height Body mass index (BMI) Body weight Systolic blood pressure Diastolic blood pressure Provider Name and Address Organization Details Last Updated DateTime 06/26/2023 160.02 cm 24.4 kg/m2 23682.75 g 104 mm[Hg] 69 mm[Hg] Pearl Mccain [facility] 4 15:50:35 Social History Question Answer Notes LastModified by Organizat ion Details LastModified Time Tobacco Smoking Status Never Smoker Nandini Cannon perry, [facility] 12/24/2019 12:56:02 What Is Your Level Of Alcohol Consumption? None Information not available 10/06/2020 Are You Blind Or Do You Have Difficulty Seeing? No Information n ot available 10/06/2020 What Is Your Level Of Caffeine Consumption? Occasional Information not available 10/06/2020 In The 14 Days Before Symptom Onset, Have You Had Close Contact With A Laboratory-confirm ed COVID-19 While That Case Was Ill? No [email or web address] Information n ot available 03/20/2022 In The 14 Days Before Symptom Onset, Have You Had Close Contact With A Person Who Is Under Investigation For COVID-19 While That Person Was Ill? No [email or web address] Information not available 03/20/2022 Have You Been To An Area Known To Be High Risk For COVID-19? No [email or web address] Information not available 03/20/2022 Are You Deaf Or Do You Have Serious Difficulty Hearing? No Information not available 10/06/2020 What Type Of Diet Are You Following? REGULAR Information n ot available 10/06/2020 Do You Use Your Seat Belt Or Car Seat Routinely? Yes Information not available 10/06/2020 Do You Have Smoke And Carbon Monoxide Detectors In Your Home? Yes Information not available 10/06/2020 Do You Feel Stressed (tense, Restless, Nervous, Or Anxious, Or Unable To Sleep At Night)? [id number] Information not available 10/06/2020 Do You Use Any Illicit Or Recreational Drugs? No Information not available 10/06/2020 Do You Use Sunscreen Routinely? Yes Information not available 10/06/2020 Has Tobacco Cessation Counseling Been Provided? No [email or web address] Information not available 03/20/2022 Do You Or Have You Ever Used Any Other Forms Of Tobacco Or Nicotine? No [email or web address] Information not available 03/20/2022 Sex: Unknown Functional Status Question Answer Note LastModified by Organizat ion Details LastModified Time Do you have difficulty walking or climbing stairs? No [email or web address] Information not available 03/20/2022 Are you able to walk? [email or web address] Information not available 10/06/2020 Are you able to care for yourself? Yes [email or web address] Information not available 03/20/2022 Do you have difficulty dressing or bathing? No [email or web address] Information not available 03/20/2022 What is your exercise level? Occasional Information not available 10/06/2020 Mental Status None recorded. Family History Relationship Description Onset Age of this Age Resolved Age Notes LastModified by Organization Details LastModified Time Mother Malignant tumor of cervix [email or web address] Not available 2019 12:55:46 Maternal Aunt Carcinoma in situ of breast [email or web address] Not available 2019 12:55:59 Father Heart disease [email or web address] Not available 2020 10:50:00 Medical History Condition Response Allergies (Food, seasonal, environmental ) Y Other Y Drug/Latex Allergies/Reactions N Blood Transfusion N Breast Cancer N Dermatologic Disorders Y Lung Disease N Defects or Inherited Disease N Breast Problem N Gestational Diabetes N Hematologic disorders N Anesthesia Complications N History of STI Y Deep Vein Thrombosis N Polycystic ovary syndrome N Anxiety Disorder Y Autoimmune disease N Arthritis N Polyps N Infertility N Acid Reflux (GERD) N History of abnormal pap Y Cancer N Varicosities N Stroke N Neurologic/Epilepsy Y Endometriosis N High Cholesterol N Fibromyalgia N Headaches Y Kidney Disease N Heart Problems N Thyroid Problems N Kidney or Bladder Problems N GI Problems N Eating Disorder N Anemia N Art (IVF or FET) N Psychiatric Illness Y Ovarian Cancer N Diabetes N Pulmonary (TB, Asthma) N Hepatitis/Liver Disease N No Past Medical History N Eczema N Urinary Tract Infection N Abuse/Domestic Violence N Asthma Y Trauma/Violence N Depression/ depression Y Heart Disease N Pre-Eclampsia N Hypertension N Osteoporosis N Thrombophilias N Gynecological History Statement/Question Response Abnormal Pap Yes Flow Heavy Date of Last Mammogram 06/18/2023 Date of LMP 06/17/2023 Was last menstrual period normal Y STIs/STDs Yes HPV Vaccine N Duration of Flow (days) 4 11 Current Control Method None Are cycles usually normal Y Frequency of Cycle (Q days) 28 Sexually Active? Y Menses Monthly Y Age of first menstrual cycle 11 Date of Last Pap Smear 01/31/2023 Sexual Problems? N LMP Definite Obstetrics History GPAL:G 1 P 0 0 0 1 Type Value Living 1 Total 1 Past Encounters Encounter ID Performer Location Encounter Start Date Encounter Closed Date Diagnosis/Indication Diagnosis SNOMED-CT Code Diagnosis ICD10 Code [id number] Radha Mathis [facility] [address],[place] [address] 12/24/2019 12:46:53 12/24/2019 13:02:56 Gynecologic examination 43063667 Z01.419 Family his tory of malignant neoplasm of breast in first degree relative 592718711 Z80.3 Z12.31 [id number] Radha Mathis [facility] [address],[place] [address] 07/07/2020 10:35:56 07/07/2020 11:40:04 Contraception care management 165279816 Z30.9 [id number] Radah Mathis [facility] [address],[place] [address] 10/06/2020 10:19:01 10/06/2020 13:51:12 Contraception care management 887131636 Z30.9 [id number] Radha Mathis [facility] [address],[place] [address] 10/18/2020 11:24:27 10/18/2020 14:09:23 Insertion of intrauterine contraceptive device 65408476 Z30.430 [id number] Radha Mathis [facility] [address],[place] [address] 11/29/2020 10:46:25 11/29/2020 12:33:00 Intrauterine device check 159107862 Z30.431 Venereal d isease screening 618648680 Z11.3 [id number] Radha Mathis [facility] [address],[place] [address] 12/23/2020 15:51:53 12/23/2020 17:07:23 Venereal disease screening 245235125 Z11.3 [id number] Radha Mathis [facility] [address],[place] [address] 02/02/2021 12:02:54 02/02/2021 15:02:33 Gynecologic examination 23215286 Z01.419 [id number] Radha Mathis [facility] [address],[place] [address] 01/31/2023 08:52:19 01/31/2023 09:26:43 Gynecologic examination 88354317 Z11.51 Z11.3 Z11.8 Screening mammography 24 285850 Z12.31 Vaginitis 96996353 N76.0 [id number] Sang Logan [facility] [address],[place] [address] 02/24/2021 15:44:54 02/24/2021 17:06:02 Urinary symptoms 701015627 R39.9 Urinary tr act infectious disease 56100230 N39.0 Vulvovaginitis 02319911 N76.0 [id number] Sang Logan MD [facility] [address],[place] [address] 03/03/2021 12:20:53 03/04/2021 12:27:00 Vulvovaginitis 75996629 N76.0 [id number] Radha Mathis [facility] [address],[place] [address] 06/02/2021 13:11:25 06/02/2021 14:31:09 Venereal disease screening 293029877 Z11.3 Vaginitis 21377650 N76.0 [id number] Radha Mathis [facility] [address],[place] [address] 07/07/2021 09:34:46 07/07/2021 12:04:15 Venereal disease screening 368206171 Z11.3 Vaginitis 90803288 N76.0 [id number] Radha Mathis [facility] [address],[place] [address] 08/12/2021 16:04:52 08/12/2021 16:38:50 Vaginal irritation 263248040 N89.8 Venereal d isease screening 721201338 Z11.3 [id number] Radha Mathis [facility] [address],[place] [address] 08/22/2021 09:30:13 08/22/2021 10:46:51 Infection by Trichomonas 86900219 A59.9 Removal of intrauterine device 13400061 Z30.432 [id number] Radha Mathis [facility] [address],[place] [address] 10/03/2021 09:26:31 10/03/2021 09:47:54 Venereal disease screening 243932248 Z11.3 [id number] Radha Mathis [facility] [address],[place] [address] 11/04/2021 14:31:02 11/04/2021 14:55:24 Venereal disease screening 062113753 Z11.3 N76.0 Urinary symptoms 8598365 08 R39.9 [id number] Radha Mathis [facility] [address],[place] [address] 01/10/2022 16:19:10 01/10/2022 17:26:19 Gynecologic examination 70243729 Z01.419 Z11.51 Z11.3 Z11.8 Vaginitis 29038293 N76.0 [id number] Radha Mathis [facility] [address],[place] [address] 03/06/2022 10:10:00 03/06/2022 15:15:57 Infection by Trichomonas 04627700 A59.9 [id number] Radha Mathis [place] [address],[place] [address] 04/20/2022 09:19:03 04/20/2022 09:59:51 Venereal disease screening 126203959 Z11.3 N76.0 [id number] Radha Mathis [facility] [address],[place] [address] 05/01/2022 09:35:31 05/03/2022 12:29:56 Infection by Trichomonas 51083359 A59.9 [id number] Radha Mathis [facility] [address],[place] [address] 06/19/2022 09:57:57 06/19/2022 10:21:19 Venereal disease screening 307423475 Z11.3 N76.0 [id number] Radha Mathis [facility] [address],[place] [address] 07/03/2022 10:04:26 07/03/2022 10:59:02 Infection by Trichomonas 54786322 A59.9 [id number] Radha Mathis [place] [address],[place] [address] 10/03/2022 09:20:16 10/03/2022 10:00:40 Venereal disease screening 150168458 Z11.3 N76.0 [id number] Rosie Cárdenas [facility] [address],[place] [address] 03/13/2023 14:54:18 03/13/2023 15:34:13 Venereal disease screening 872118284 Z11.3 Sexually t ransmitted infectious disease 6627981 A64 [id number] Rosie Cárdenas [facility] [address],[place] [address] 05/14/2023 08:55:01 05/14/2023 11:25:21 Vaginitis 36741740 N76.0 Venereal d isease screening 746913052 Z11.3 Sexually t ransmitted infectious disease 8099826 A64 [id number] Radha Mathis [place] [address],[place] [address] 06/26/2023 15:32:49 06/26/2023 16:10:40 Vaginitis 57195167 N76.0 Health Concerns Section Related Observation LastModified by Organization Detai ls LastModified Time None Recorded Concern Status LastModified by Organization Details LastModified Time None Recorded Advance Directives Directive None Recorded Payers Encounter Date Sequence Insurance Name Policy Number Policy Marroquin Covered Member ID Marroquin Member ID Guarantor Name 10/03/2022 1 [facility] (MEDICAID HMO) [id number] Meredith L Frost [id number] Meredith L Frost 01/31/2023 1 [employer] [facility] [facility] [place] ([place] [id number] Meredith L Frost [id number] Meredith L Frost 03/13/2023 1 [facility] (MEDICAID HMO) [id number] Meredith L Frost [id number] Meredith L Frost 05/14/2023 1 [facility] (MEDICAID HMO) [id number] Meredith L Frost [id number] Meredith L Frost 06/26/2023 1 [facility] (MEDICAID HMO) [id number] Meredith L Frost [id number] Meredith L Frost Notes Date Note Type Note Provider Name and Address Organization Details Recorded Time 10/03/2022 text/html Here today for T OC from persistent Trich for over a year.She confirmed she completed the course of Tinidazole & vaginal boric acid.Vag d/c & odor have improved but still feels it is there to some extent.Continues to confirm no SA or romantic partnerShowers daily Neg pain of abd/pelvis/flankNeg urinary sx'sNeg GI sx'sNeg N/V/F/C/DNeg Vag irritation, itching Radha Mathis [facility] [address], [place], [address], [facility] 10/03/2022 09:51:33 01/31/2023 text/html Annual GYNReport ed bypatient.Menstrual cycle:Normal menses Urinary symptoms:No hematuria; No incontinence Vulva:No genital lesion Vagina:White;Vaginal itching Breast:No breast pain; No breast lump; No nipple discharge Current Contraception: control not practiced (NOT currently SA per pt) Sexual complaints:No sexual complaints; No pain during intercourse; Normal libido Menopausal Symptoms:No menopausal symptoms; Normal vaginal lubrication Psychological symptoms:No depression; No anxiety; No PMDD Preventive measures:Encourage self breast examination; Encourage regular exercise; Encourage no tobacco use; Encourage regular mammograms starting age 40; Followed with yearly pap smears; Needs to schedule mammogram KEVIN [facility] [address], [place], [address], [facility] 01/31/2023 09:26:12 03/13/2023 text/html 42yo [id number] ents for STI testingrecently SA with new partner, no condom usewhite/clear discharge, no odors/itching/irrita tionh/o persistent trichomonas x 1 yr, with a negative GIANNA last 01/31/2023neg n/v/fneg pelvic painneg flu-like symptoms KEVIN Hussein [address], [place], [address], [facility] 03/13/2023 15:31:07 05/14/2023 text/html 42yopresents for STI testingrecently found out her partner has been unfaithfulhas noticed some white discharge/irritation mirena IUD for BCneg odorsneg pelvic painneg n/v/fneg flu-like symptoms [address], [place], [address], [facility] 05/14/2023 11:16:43 06/26/2023 text/html Vaginal/Vulvar ProblemReported bypatient.Location:[facility] Onset/Timing:abrupt Duration:present for 1-7 days Quality:itching; irritation; discharge Severity:mild Context:not sexually active; history of recurrent vaginal infections Alleviating Factors:none Aggravating Factors:none Associated Symptoms:no vaginal pain; no vulvar itching/irritation; no vulvar swelling/erythema; no vulvar pain; no vulvar lesions; no pelvic pain; no dyspareunia; no dysuria; no fever; no abdominal pain;vaginal itching;vaginal irritationNotes:Neg pain of abd/pelvis/flankNeg urinary sx'sNeg GI sx'sNeg N/V/F/C/DNeg odor vag Radha Mathis, [facility]- [address], [place], [address], [facility] 06/26/2023 16:10:23 OBGyn Episode Ob Episode Information Episode Created Date Number of Fetuses Patient Bloodtype Patient rh Status Prepregnancy Weight lbs Domestic Partner Domestic Partner Phone Father Name Handle Finisher Status 12/24/19 20 1 CLOSED Fetus Data First Name Last Name Admitted to NICU Weight (g) Sex Living Outcome Pediatric Complications Fetus ID Race Codes Race Delivery Type M Full Term [id number] Vaginal Delivery Marta Calculation MARTA Calculation Method Initial Marta Date Initial Exam Date Initial Exam Provider Initial Ultrasound Date Last Menstrual Period Date Ultra Sound Weeks Gestation Conception by IVF Embryo Age at Transfer Date of Transfer 0 Eighteen To Twenty Week Marta Update Ultra Sound Date Fundal Height At Umbil Quickening Date Ultra Sound Latest Weeks Gestation Final Marta Confirmed By Final Marta Confirmed Date Final Marta Date Ultra Sound Latest Days Gestation 0 0 Menstrual History Last Menstrual Date Menses Monthly On Bcp Conception Prior Menses Frequency Hcg Plus Date Menarche Onset Age Delivery Information Delivery Date Delivery Type Labor Anesthesia Weeks Gestation Incision Type Labor Labor Length Hrs Delivered By Post Complications Tubal Sterilization Discharge Date Comments 4 Discharge Information Feeding Method Contraceptive Method Maternal HG B and HCT Levels
--- OUTSIDE RECORDS SUMMARY | 2024-03-22 16:50 | XMS_ITS | Encounter Summary ---
Author Organization [facility] Healthcare Address [address] [place] [address] Care Team Providers Care Scheduling Assistant Name Role Phone Joy Sheppard Primary Care Provider [phone] Encounter Details Date Type Department Care Team (Late st Contact Info) Description 01/22/2024 Orders Only [facility] [address] [place] [address] Bekah Larson PA [address] [place] [address] Social History Tobacco Use Types Packs/Day Years [...] on file Legal Sex Female 6:27 AM [employer] Gender Identity Not on file Sexual Orientation Not on file documented as of this encounter Plan of Treatment Not on file documented as of this encounter Visit Diagnoses Not on filedocumented in this encounter Care Teams Scheduling Assistant Relationship Specialty Start Date End Date Joy Sheppard PA [address] [place] [id number] PCP - General Physician Veneer Sorter 07/12/23 documented as of this encounter
--- OUTSIDE RECORDS SUMMARY | 2024-03-22 16:50 | XMS_ITS | Encounter Summary ---
Author Organization [facility] Healthcare Address [address] [place] [address] Care Team Providers Care Gauge Checker Name Role Phone Joy Sheppard Primary Care Provider [phone] Encounter Details Date Type Department Care Team (Late st Contact Info) Description 10/04/2023 2:45 PM CDT Office Visit [facility] [place] in [facility] Emergency Department [address] [facility] [address] [address] Jaylon See MD [place] [facility] [address] [place], [place] [id number] Multiple sclerosis (HCC) (Primary Dx) Social History [...] on file Legal Sex 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 Gender Identity Not on file Sexual Orientation Not on file documented as of this encounter Last Filed Vital Signs Vital Sign Reading Time Taken Comments Blood Pressure 114/72 10/04/2023 2:34 PM CDT Pulse 85 10/04/2023 2:34 PM CDT Temperature 36.4 ??C (97.5 ??F) 10/04/2023 2:34 PM CD T Respiratory Rate - - Oxygen Saturation 99% 10/04/2023 2:34 PM CDT Inhaled Oxygen Concentration - - Weight 61.4 kg (135 lb 6.4 oz) 10/04/2023 2:34 P M CDT Height 165.1 cm (5' 5 ) 10/04/2023 2:34 PM CDT Body Mass Index 22.53 10/04/2023 2:34 PM CDT documented in this encounter Progress Notes * Jaylon See MD - 10/04/2023 2:45 PM CDT Images from the original note were not included. Neurology Consult HCP requesting consultation: GONZALEZ Hewitt 42 y.o. right-handed woman presents for evaluation of multiple sclerosis. HPI: In approximately 2001, she developed abnormal sensation both sides of her body for 2 weeks. In June 2006, she developed double vision for 2 weeks. In August 2006, she developed left arm weakness and left arm/ torso/leg numbness. She was treated with intravenous steroids. Avonex was initially initiated. He had a relapse with right leg numbness and weakness in March 2007, she was subsequently switched to Rebif. She was treated Tysabri for 3 months in 2008, but made her feel ???spaced out?? . Shewas then treated with Gilenya for 1 year but developed new enhancing lesions. Tysabri was resumed in December 2011 until March 2016. She subsequently had recurrent relapses requiring intravenous ster oids and a course of plasmapheresis. She was started on Ocrevus since September 2016. Ongoing left arm weakness. Balance mildly impaired. Falling approximately twice per month. Bilateral thigh numbness ongoing. No double vision. No visual loss. No vertigo. No Lhermitte's. No bladder urgency, but positive constipation. No sexual dysfunction. Depression controlled on Lexapro 30 mg. Being followed by a psychiatrist. Memory impaired. Moderate fatigue. Last seizure was greater than 6 months ago on Vimpat 100 mg twice a day, zonisamide 500 mg nightly and brivaracetam. Daily headaches.On Botox injections every 3 months. Taking ibuprofen as needed. Had COVID-19 once in the past. Her 2nd COVID-19 vaccine was May 27, 2020. Past medical history: Schizophrenia, asthma, depression, GERD, [...] by mouth 2 (two) times a day axptoymghe-oqeydsupomcou-wakzdfqe (ESGIC) 50-325-40 mg per tablet Take 1 [...] for pain 60 tablet 3 lacosamide (VIMPAT) 100 mg tablet Take 1 tablet (100 mg total) by mouth 2 (two) times a day 60 tablet 0 ocrelizumab (OCREVUS) 30 mg/mL solution Infuse 20 mL (600 mg total) into a venous catheter every 6 (six) months Last admin: onabotulinumtoxin A (BOTOX) 100 unit recon soln Inject 200 Units into the muscle as instructed every 3 (three) months Last admin: Symbicort 160-4.5 mcg/actuation inhaler Inhale 2 puffs 2 (two) times a day zonisamide (ZONEGRAN) 100 mg capsule Take 5 capsules (500 mg total) by mouth nightly No current facility-administered medications for this visit. No Known Allergies Social history: 3-4 margaritas 1-2 times per month. Never smoked cigarettes. Single. 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 Neurological Exam: Mental status: Alert and oriented x 3. Speech fluent. Past Presidents to [employer] except Obama. WORLD backwards: incorrect. Serial 7s to 93. 0/3 object recall without cues, 1/3 object recall at 5 minutes with cues. Cranial nerves: II Optic: Pupils: PERRL. Visual [...] to stoll: Left normal; Right: normal Gait: Normal with mild tandem gait impairment Romberg: negative Physical Exam: Most Recent: Vitals BP 114/72 (BP Location: Left arm, Patient Position: Sitting) Pulse 85 Temp 36.4 ??C (97.5 ??F) (Temporal) Ht 165.1 cm (5' 5 ) Wt 61.4 kg (135 lb 6.4 oz) SpO2 99% BMI 22.53 kg/m?? Well-developed, well-nourished female in no apparent distress. No leg edema. Diagnostic Review: I reviewed her MRI scan of the brain and cervical spine with contrast images report from July 11, 2023. Extensive periventricular juxtacortical white matter T2-hyperintense lesions. Dorsal pontine T2-hyperintense change. Extensive multifocal cervical spinal cord T2-hyperintense lesions throughout the cervical spinal cord. No abnormal enhancement in the brain or cervical spinal cord. Per report, unchanged since her brain images from May 13, 2022 and cervical spinal cord images from November 08, 2020. 05/14/23 hepatitis-B core IgM negative, hepatitis-B surface antigen nonreactive, RPR nonreactive, HIV nonreactive 05/11/23 AST 10, ALT 7, WBC 8.2, ALC 1804 06/29/21 IgA 81, IgG 753, IgM 70 10/31/18 hepatitis B core virus antibody nonreactive, QuantiFERON gold negative 07/12/11 SUE virus antibody negative 07/06/11 varicella IgG positive CSF 09/04/06: IgG index 1.06 (0-0.68), IgG synthesis 9.2 (0.0-2.8), 8 unique oligoclonal bands in the CSF Assessment/Plan: Meredith Frost's history, examination, CSF and MRI findings are highly compatible with multiple sclerosis. Per history and medical notes, she has had numerous relapses beginning with abnormal sensations on both side of her body for 2 weeks in 2001. Other demyelinating symptoms include focal weakness, double vision, balance impairment, constipation and depression. Her neurologic examination was notablefor short-term memory loss, decreased corrected bilateral visual acuity, patellar hyperreflexia andmild tandem gait impairment. MRI imaging demonstrates extensive periventricular, juxtacortical and cervical spinal cord lesions consistent with demyelination. Ocrevus which was started in September 2016 will be continued. The risk of this B- cell monoclonal antibody treatment discussed including serious infusion reactions, serious infections [...] protected. Paxlovid advised if she develops COVID-19. For seizure control, her current regimen consists of zonisamide 500 mg nightly, lacosamide 100 mg twice a day and bivaracetem 150 mg twice a day. In addition, she is receiving Botox injections every 3 months for chronic migraine. Prior next Ocrevus infusion, serologies will be ordered for CBC, CMP and immunoglobulin profile. 90 minutes spent on total encounter time including the activities documented in this note. This includes time spent prior to the visit and after the visit in direct care of the patient on the day of the visit. This time does not include time spent on any separately reportable services. Jaylon See MD Director, [facility] documented in this encounter Plan of Treatment Not on file documented as of this encounter Visit Diagnoses Diagnosis Multiple sclerosis (HCC)- Primary Multiple sclerosis documented in this encounter Care Teams Gauge Checker Relationship Specialty Start Date End Date Joy Sheppard PA [address] [place] [id number] PCP - General Physician Reed Press Feeder 07/12/23 documented as of this encounter
--- OUTSIDE RECORDS SUMMARY | 2024-03-22 16:50 | XMS_ITS | Encounter Summary ---
Author Organization [facility] Healthcare Address [address] [place] [address] Care Team Providers Care Copy Coordinator Name Role Phone Joy Sheppard Primary Care Provider [phone] Reason for Visit * Reason Onset Date Comments Test Results 01/21/2024 Encounter Details Date Type Department Care Team ([facility] st Contact Info) Description 01/21/2024 Telephone [facility] [place] [facility] [address] [facility] [address] [place] [address] Jaylon See MD [address] [facility] [address] [place], [place] [id number] Test Results Social History Tobacco Use Types Packs/Day Years [...] on file 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 Will forward results to PCP and DAMPER FITTER for review. SH REMOVER * Telephone Encounter - Tania Grimaldo RN - 01/21/2024 2:55 PM CST Left message on voicemail asking for return call to office. SH REMOVER documented in this encounter Plan of Treatment Not on file documented as of this encounter Visit Diagnoses Not on filedocumented in this encounter Care Teams Copy Coordinator Relationship Specialty Start Date End Date Joy Sheppard PA [address] [place] [id number] PCP - General Physician Therapist Occupational 07/12/23 documented as of this encounter
--- OUTSIDE RECORDS SUMMARY | 2024-03-22 16:51 | XMS_ITS | Encounter Summary ---
Author Organization [facility] Healthcare Address [address] [place] [address] Care Team Providers Care Retail Bakery Manager Name Role Phone Joy Sheppard Primary Care Provider [phone] Reason for Referral * Procedure (Routine) - Pending Review Specialty Diagnoses / Procedures Referred By Contac t Referred To Contact Diagnoses Intractable chronic 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 without status migrainosus Procedures Botox Injection Mckayla Haywood MD [address] [address] Phone: tel: fax: [facility] Referral ID Status Reason Start Date Expiration Date V isits Requested Visits Authorized [id number] Pending Review 09/07/2023 10/06/2024 1 1 Reason for Visit * Reason Comments Migraine Follow Botox Flow Sh eet Encounter Details Date Type Department Care Team (Latest Contact Info) Description 09/06/2023 2:30 PM CDT [facility] visit [facility] [address] [facility] [address] [place] [id number] Mckayla Haywood MD [address] [address] Intractable chronic 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 without [...] on file 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 Gender Identity Not on file Sexual Orientation Not on file documented as of this encounter Last Filed Vital Signs Vital Sign Reading Time Taken Comments Blood Pressure 114/56 09/06/2023 2:48 PM CDT Pulse 64 09/06/2023 2:48 PM CDT Temperature - - Respiratory Rate 16 09/06/2023 2:48 PM CDT Oxygen Saturation 99% 09/06/2023 2:48 PM CDT Inhaled Oxygen Concentration - - Weight 61.2 kg (135 lb) 09/06/2023 2:48 PM CDT Height 165.1 cm (5' 5 ) 09/06/2023 2:48 PM CDT Body Mass Index 22.47 09/06/2023 2:48 PM CDT documented in this encounter Progress Notes * Mckayla Haywood MD - 09/06/2023 2:30 PM CDT BOTOX NOTE The patient has a long history of chronic migraine, which has been unresponsive to multiple medications. Here for Botox for chronic migraine. Pt is also followed in epilepsy clinic and [facility] The patient has had significant benefit from Botox with a greater than 50% reduction in headache frequency and severity. Current Outpatient Medications Medication Sig Dispense Refill albuterol HFA (PROVENTIL HFA,VENTOLIN HFA,PROAIR HFA) 90 mcg/actuation inhaler Inhale 2 puffs every6 (six) hours as needed ARIPiprazole (ABILIFY) 5 mg tablet Take 1 tablet (5 mg total) by mouth daily ARIPiprazole (ARIPiprazole) 300 mg IM injection Inject 300 mg into the muscle as instructed every 30 (thirty) days Last admin: (Patient not taking: Reported on 07/31/2023) baclofen (LIORESAL) 10 mg tablet TAKE 1 TABLET BY MOUTH TWICE DAILY. MAY CAUSE DROWSINESS brivaracetam 75 mg tablet Take 2 tablets (150 mg total) by mouth 2 (two) times a day nnmmbbycca-wunyqvpnbgsmw-okalrnht (ESGIC) 50-325-40 mg per tablet Take 1 [...] tablet (1,000 mcg total) by mouth daily hydrOXYzine (ATARAX) 25 mg tablet Take 1 tablet (25 mg total) by mouth 2 (two) times a day as needed for anxiety ibuprofen (ADVIL,MOTRIN) 800 mg tablet Take 1 tablet (800 mg total) by mouth 2 (two) times a day asneeded lacosamide (VIMPAT) 100 mg tablet Take 1 [...] 2 puffs 2 (two) times a day traZODone (DESYREL) 50 mg tablet Take 1 tablet (50 mg total) by mouth nightly as needed zonisamide (ZONEGRAN) 100 mg capsule Take 5 capsules (500 mg total) by mouth nightly No current facility-administered medications for this visit. There were no vitals taken for this visit. Details of Migraine History documented in note from 07/31/2023 Last Botox Treatment: Current migraine prophylactic medications: None Current migraine abortive treatments: Tylenol Side effects after the last injection None Antiplatelet/Anticoagulation: None The indications for botulinum toxin administration, the transient nature of the expected benefit and the potential side effects including lack of improvement, pain, infection, bleeding, allergic reaction, excessive local or distant paralysis, including the possibility of shortness of breath, swallowing difficulty, droopy eyelid and double vision were discussed. The patient had an opportunity to ask questions and consented to the procedure. Headache days/month - Current: 3 days per month Baseline: 30 days per month Headache hr/day: - Current: 4 hours per occurrence Baseline: 12 hours per occurrence Symptom reduction from baseline: >50% Follow up in 12 weeks for repeat injections Diagnosis: Chronic migraine without aura, intractable, Without status migrainosus Administer Botox for chronic migraine today. See written procedure note for details regarding administration. Previous Botox treatment: 155 units Units Injected: 185 Units wasted: 15 There were no complications. The patient tolerated the procedure well. Patient is to inform me if any side effects from Botox treatment occurs or if questions arise. documented in this encounter Procedure Notes * Sun Davis - 09/06/2023 2:30 PM CDTAssociated Order(s): Botox Injection Post-Procedure Diagnose(s): Intractable chronic 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 without status migrainosus Botox Injection Performed by: Mckayla Haywood MD Authorized by: Mckayla Haywood MD Emery Protocol: Procedure Details - Botox Injection: Procedure Details: See botox flow sheet for details on injection sights and amounts. documented in this encounter Plan of Treatment Not on file documented as of this encounter Procedures Procedure Name Priority Date/Time Associated Diagnosis Comments BOTOX INJECTION Routine 09/06/2023 2:30 PM CDT Intractable chronic 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 without status migrainosus documented in this encounter Results * Botox Injection (09/06/2023 2:30 PM CDT) Narrative Sun Davis - 09/06/2023 2:30 PM CDT Sun Davis ? 09/07/2023 ??9:28 AM Botox Injection Performed by: Mckayla Haywood MD Authorized by: Mckayla Haywood MD ?? Emery Protocol: Procedure Details - Botox Injection: ??Procedure Details: See botox flow sheet for details on injection sights and amounts. Mckayla Haywood MD IN CLINIC/BEDSIDE ORDERAB LES Final Result documented in this encounter Visit Diagnoses Diagnosis Intractable chronic 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 without status migrainosus- Primary documented in this encounter Discontinued Medications Medication Sig Discontinue Reason Start Date End Da te ARIPiprazole (ARIPiprazole) 300 mg IM injection Inject 300 mg into the muscle as instructed every 30 (thirty) days Last admin: Therapy completed 04/14/2019 09/06/2023 ARIPiprazole (ABILIFY) 5 mg tablet Take 1 tablet (5 mg total) by mouth daily Therapy completed 09/06/2023 hydrOXYzine (ATARAX) 25 mg tablet Take 1 tablet (25 mg total) by mouth 2 (two) times a day as needed for anxiety Therapy completed 09/06/2023 traZODone (DESYREL) 50 mg tablet Take 1 tablet (50 mg total) by mouth nightly as needed Therapy completed 03/06/2023 09/06/2023 documented as of this encounter Care Teams Retail Bakery Manager Relationship Specialty Start Date End Date Joy Sheppard PA [address] [place] [id number] PCP - General Physician Forensic Scientist 07/12/23 documented as of this encounter
--- OUTSIDE RECORDS SUMMARY | 2024-03-22 16:51 | XMS_ITS | Encounter Summary ---
Author Organization [facility] Healthcare Address [address] [place] [address] Care Team Providers Care Director Of Workforce Development Name Role Phone Joy Sheppard Primary Care Provider [phone] Encounter Details Date Type Department Care Team (Late st Contact Info) Description 09/26/2023 Telephone [facility] [address] [facility] [address] [place] [address] Mckayla Haywood MD 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 * Telephone Encounter - Tania Herrera RN - 09/26/2023 3:49 PM CDT Patient called back to verify it is 800mg Ibuprofen. * Telephone Encounter - Evelio Vieyra - 09/26/2023 10:53 AM CDT Called patient and LM to clarify which medication needed an early refill so that I could discuss itwith GERARDO * Telephone Encounter - Asmita Belcher - 09/26/2023 8:47 AM CDT Patient called stating she has a bad migraine because she is so stressed out. Her stole hermedication. She is requesting to be able to refill her migraines medications early. Please call [phone] documented in this encounter Plan of Treatment Not on file documented as of this encounter Visit Diagnoses Not on filedocumented in this encounter Care Teams Director Of Workforce Development Relationship Specialty Start Date End Date Joy Sheppard PA [address] [place] [id number] PCP - General Physician Irrigator 07/12/23 documented as of this encounter
--- OUTSIDE RECORDS SUMMARY | 2024-03-22 16:51 | XMS_ITS | Encounter Summary ---
Author Organization [facility] Facility Care Team Providers Care Community Support Specialist Name Role Phone Unavailable Primary Care Provider Unavailabl e Encounter Details Date Type Department Care Team (Late st Contact Info) Description 06/12/2006 2:54 PM CDT - 06/12/2006 4:00 PM CDT Hospital Encounter [facility] Angelito Villasenor MD [address] [place] [address] Social History Tobacco Use Types Packs/Day Years Used Date Smoking Tobacco: Never Assessed Comments Unknown Sex and Gender Information Value Date Recorded Sex Assigned at Not on file 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
--- OUTSIDE RECORDS SUMMARY | 2024-03-22 16:51 | XMS_ITS | Encounter Summary ---
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
--- OUTSIDE RECORDS SUMMARY | 2024-03-22 16:51 | XMS_ITS | Encounter Summary ---
Author Organization [facility] Facility Care Team Providers Care Straddle Bug Driver Name Role Phone Unavailable Primary Care Provider Unavailabl e Encounter Details Date Type Department Care Team (Late st Contact Info) Description 09/02/2006 11:16 AM CDT - 09/02/2006 2:02 PM CDT Hospital Encounter [facility] Malina Robledo MD [address] [place] [address] Social History Tobacco Use Types Packs/Day Years Used Date Smoking Tobacco: Never Assessed Comments Unknown Sex and Gender Information Value Date Recorded Sex Assigned at Not on file Legal Sex Female 6:27 AM ARCHITECTURE INTERN Gender Identity Not on file Sexual Orientation Not on file documented as of this encounter Plan of Treatment Not on file documented as of this encounter Visit Diagnoses Not on filedocumented in this encounter
--- OUTSIDE RECORDS SUMMARY | 2024-03-22 16:51 | XMS_ITS | Encounter Summary ---
Author Organization [facility] Facility Care Team Providers Care Wire Steward Name Role Phone Unavailable Primary Care Provider Unavailabl e Encounter Details Date Type Department Care Team (Late st Contact Info) Description 11/06/2006 2:43 PM CDT - 11/06/2006 4:00 PM CDT Hospital Encounter [facility] [address] [facility] [address] [address] Social History Tobacco Use Types Packs/Day Years Used Date Smoking Tobacco: Never Assessed Comments Unknown Sex and Gender Information Value Date Recorded Sex Assigned at Not on file Legal Sex Female 6:27 AM CLINICAL TECH Gender Identity Not on file Sexual Orientation Not on file documented as of this encounter Plan of Treatment Not on file documented as of this encounter Visit Diagnoses Not on filedocumented in this encounter
--- OUTSIDE RECORDS SUMMARY | 2024-03-22 16:51 | XMS_ITS | Encounter Summary ---
Author Organization [facility] Facility Care Team Providers Care Two Needle Machine Operator Name Role Phone Unavailable Primary Care Provider Unavailabl e Encounter Details Date Type Department Care Team (Late st Contact Info) Description 03/14/2007 2:08 AM MIXER BLENDER - 03/18/2007 4:38 PM MIXER BLENDER Hospital Encounter [facility] Jose Liriano MD [address] [facility] [address] [place] [address] Social History Tobacco Use Types Packs/Day Years Used Date Smoking Tobacco: Never Assessed Comments Unknown Sex and Gender Information Value Date Recorded Sex Assigned at Not on file Legal Sex Female 6:27 AM MIXER BLENDER Gender Identity Not on file Sexual Orientation Not on file documented as of this encounter Plan of Treatment Not on file documented as of this encounter Visit Diagnoses Not on filedocumented in this encounter
--- OUTSIDE RECORDS SUMMARY | 2024-03-22 16:51 | XMS_ITS | Encounter Summary ---
Author Organization [facility] Healthcare Address [address] [place] [address] Care Team Providers Care Pulp Drier Name Role Phone Unavailable Primary Care Provider Unavailabl e Reason for Visit * MRI/CAT/PET Scan (Routine) - Closed Specialty Diagnoses / Procedures Referred By Nicole t Referred To Contact Procedures Neuro MR Outside Reference Transcribed Order, Provider Referral ID Status Reason Start Date Expiration Date Visits Re quested Visits Authorized [id number] Closed 10/02/2023 10/31/2024 1 1 Encounter Details Date Type Department Care Team (Latest Contact Info) Description 11/08/2020 12:05 AM CDT - 11/08/2020 11:59 PM CDT Hospital Encounter [facility] - Imaging [phone] Discharge Disposition: Discharge to home or self care Social History Tobacco Use Types Packs/Day Years Used Date Smoking Tobacco: Never Assessed Comments Unknown Sex and Gender Information Value Date Recorded Sex Assigned at Not on file 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 Gender Identity Not on file Sexual Orientation Not on file documented as of this encounter Medications at Time of Discharge albuterol HFA (PROVENTIL HFA,VENTOLIN HFA,PROAIR HFA) 90 mcg/actuation inhaler Inhale 2 puffs every 6 (six) hours as needed 03/05/2014 butalbital-aceta minophen-caffein e (ESGIC) 50-325-40 mg per tablet Take 1 tablet by mouth every 4 (four) hours as needed 01/14/2018 onabotulinumtoxi n A (BOTOX) 100 unit recon soln Inject 200 Units into the muscle as instructed every 3 (three) months Last admin: 07/22/2018 ARIPiprazole (ARIPiprazole) 300 mg IM injection Inject 300 mg into the muscle as instructed every 30 (thirty) days Last admin: 04/14/2019 4 ibuprofen (ADVIL,MOTRIN) 800 mg tablet Take 1 tablet (800 mg total) by mouth 2 (two) times a day as needed 10/30/2020 4 documented as of this encounter Discharge Disposition Disposition Code Departure Means Destination Discharge to home or self care documented in this encounter Plan of Treatment Not on file documented as of this encounter Procedures Procedure Name Priority Date/Time Associated Diagnosis Comments NEURO MR OUTSIDE REFERENCE Routine 11/08/2020 12:05 AM CDT documented in this encounter Results * Neuro MR Outside Reference (11/08/2020 12:05 AM CDT) Narrative RAD_PACS_OUTSIDE_FILM_[facility] - 10/02/2023 2:16 PM CDT This order has been auto-finalized and does not contain a result. us Provider Transcribed Order IMG MRI PROCEDURES Fi nal Result RAD_PACS_OUTSIDE_FILM_[facility] documented in this encounter Visit Diagnoses Not on filedocumented in this encounter
--- OUTSIDE RECORDS SUMMARY | 2024-03-22 16:51 | XMS_ITS | Encounter Summary ---
Author Organization [facility] Healthcare Address [address] [place] [address] Care Team Providers Care Receptionist Telephone Operator Name Role Phone No, Physician Primary Care Provider [phone] Reason for Visit * MRI/CAT/PET Scan (Routine) - Closed Specialty Diagnoses / Procedures Referred By Contac t Referred To Contact Procedures Neuro MR Outside Reference Transcribed Order, Provider Referral ID Status Reason Start Date Expiration Date Visits Re quested Visits Authorized [id number] Closed 10/02/2023 10/31/2024 1 1 Encounter Details Date Type Department Care Team (Latest Contact Info) Description 07/11/2023 - 07/11/2023 11:59 PM CDT Hospital Encounter [facility] - Imaging [phone] Discharge Disposition: Discharge to home or self care Social History Tobacco Use Types Packs/Day Years Used Date Smoking Tobacco: Never Smokeless Tobacco: Never Comments Unknown Sex and Gender Information Value Date Recorded Sex Assigned at Not on file 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 MAY CAUSE DROWSINESS 12/21/2020 brivaracetam 75 mg tablet Take 2 tablets (150 mg total) by mouth 2 (two) times a day 04/12/2023 butalbital-aceta minophen-caffein e (ESGIC) 50-325-40 mg per tablet Take 1 tablet by mouth every 4 (four) hours as needed 01/14/2018 docusate sodium (COLACE) 100 mg capsule Take 1 capsule (100 mg total) by mouth every 12 (twelve) hours 06/21/2021 escitalopram (LEXAPRO) 20 mg tablet Take 1 tablet (20 mg total) by mouth daily 12/25/2020 fluticasone propionate (FLONASE) 50 mcg/actuation nasal spray Administer 1 spray into each nostril daily as needed 11/29/2020 ocrelizumab (OCREVUS) 30 mg/mL solution Infuse 20 mL (600 mg total) into a venous catheter every 6 (six) months Last admin: onabotulinumtoxi n A (BOTOX) 100 unit recon soln Inject 200 Units into the muscle as instructed every 3 (three) months Last admin: 07/22/2018 Symbicort 160-4.5 mcg/actuation inhaler Inhale 2 puffs 2 (two) times a day 12/29/2020 zonisamide (ZONEGRAN) 100 mg capsule Take 5 capsules (500 mg total) by mouth nightly 12/25/2020 ARIPiprazole (ARIPiprazole) 300 mg IM injection Inject 300 mg into the muscle as instructed every 30 (thirty) days Last admin: 04/14/2019 4 hydrOXYzine (ATARAX) 25 mg tablet Take 1 tablet (25 mg total) by mouth 2 (two) times a day as needed for anxiety 4 ibuprofen (ADVIL,MOTRIN) 800 mg tablet Take 1 tablet (800 mg total) by mouth 2 (two) times a day as needed 10/30/2020 4 lacosamide (VIMPAT) 100 mg tabletIndication s:Focal Epilepsy Take 1 tablet (100 mg total) by mouth 2 (two) times a day 60 tablet 01/03/2021 4 traZODone (DESYREL) 50 mg tablet Take 1 tablet (50 mg total) by mouth nightly as needed 03/06/2023 4 documented as of this encounter Discharge Disposition Disposition Code Departure Means Destination Discharge to home or self care documented in this encounter Plan of Treatment Not on file documented as of this encounter Procedures Procedure Name Priority Date/Time Associated Diagnosis Comments NEURO MR OUTSIDE REFERENCE Routine 07/11/2023 12:00 AM CDT documented in this encounter Results * Neuro MR Outside Reference (07/11/2023 12:00 AM CDT) Narrative RAD_PACS_OUTSIDE_FILM_[facility] - 10/02/2023 2:15 PM CDT This order has been auto-finalized and does not contain a result. us Provider Transcribed Order IMG MRI PROCEDURES Fi nal Result RAD_PACS_OUTSIDE_FILM_[facility] documented in this encounter Visit Diagnoses Not on filedocumented in this encounter Care Teams Receptionist Telephone Operator Relationship Specialty Start Date End Date No, Physician PCP - General 12/29/20 07/11/23 documented as of this encounter
--- OUTSIDE RECORDS SUMMARY | 2024-03-22 16:51 | XMS_ITS | Encounter Summary ---
Author Organization [facility] Healthcare Address [address] [place] [address] Care Team Providers Care Cold Storage Worker Name Role Phone No, Physician Primary Care Provider [phone] Reason for Visit * MRI/CAT/PET Scan (Routine) - Closed Specialty Diagnoses / Procedures Referred By Contac t Referred To Contact Procedures Neuro MR Outside Reference Transcribed Order, Provider Referral ID Status Reason Start Date Expiration Date Visits Re quested Visits Authorized [id number] Closed 10/02/2023 10/31/2024 1 1 Encounter Details Date Type Department Care Team (Latest Contact Info) Description 07/11/2023 12:05 AM CDT - 07/11/2023 11:59 PM CDT Hospital Encounter [facility] - Imaging [phone] Discharge Disposition: Discharge to home or self care Social History Tobacco Use Types Packs/Day Years Used Date Smoking Tobacco: Never Smokeless Tobacco: Never Comments Unknown Sex and Gender Information Value Date Recorded Sex Assigned at Not on file 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 us Provider Transcribed Order IMG MRI PROCEDURES Fi nal Result RAD_PACS_OUTSIDE_FILM_[facility] documented in this encounter Visit Diagnoses Not on filedocumented in this encounter Care Teams Cold Storage Worker Relationship Specialty Start Date End Date No, Physician PCP - General 12/29/20 07/11/23 documented as of this encounter
--- OUTSIDE RECORDS SUMMARY | 2024-03-22 16:51 | XMS_ITS | Encounter Summary ---
Author Organization [facility] Healthcare Address [address] [place] [address] Care Team Providers Care Industrial Conveyor Belt Repairer Name Role Phone No, Physician Primary Care Provider [phone] Reason for Visit * MRI/CAT/PET Scan (Routine) - Closed Specialty Diagnoses / Procedures Referred By Contac t Referred To Contact Procedures Neuro MR Outside Reference Transcribed Order, Provider Referral ID Status Reason Start Date Expiration Date Visits Re quested Visits Authorized [id number] Closed 10/02/2023 10/31/2024 1 1 Encounter Details Date Type Department Care Team (Latest Contact Info) Description 05/13/2022 - 05/13/2022 11:59 PM HUMAN RELATIONS TEACHER Hospital Encounter [facility] - Imaging [phone] Discharge Disposition: Discharge to home or self care Social History Tobacco Use Types Packs/Day Years Used Date Smoking Tobacco: Never Smokeless Tobacco: Never Comments Unknown Sex and Gender Information Value Date Recorded Sex Assigned at Not on file 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 MAY CAUSE DROWSINESS 12/21/2020 butalbital-aceta minophen-caffein e (ESGIC) 50-325-40 mg per [...] times a day 60 tablet 01/03/2021 4 documented as of this encounter Discharge Disposition Disposition Code Departure Means Destination Discharge to home or self care documented in this encounter Plan of Treatment Not on file documented as of this encounter Procedures Procedure Name Priority Date/Time Associated Diagnosis Comments NEURO MR OUTSIDE REFERENCE Routine 05/13/2022 12:00 AM HUMAN RELATIONS TEACHER documented in this encounter Results * Neuro MR Outside Reference (05/13/2022 12:00 AM HUMAN RELATIONS TEACHER) Narrative RAD_PACS_OUTSIDE_FILM_[facility] - 10/02/2023 2:16 PM CDT This order has been auto-finalized and does not contain a result. us Provider Transcribed Order IMG MRI PROCEDURES Fi nal Result RAD_PACS_OUTSIDE_FILM_[facility] documented in this encounter Visit Diagnoses Not on filedocumented in this encounter Care Teams Industrial Conveyor Belt Repairer Relationship Specialty Start Date End Date No, Physician PCP - General 12/29/20 07/11/23 documented as of this encounter
--- OUTSIDE RECORDS SUMMARY | 2024-03-22 16:51 | XMS_ITS | Encounter Summary ---
Author Organization [facility] Facility Care Team Providers Care Hospital Personnel Director Name Role Phone Unavailable Primary Care Provider Unavailabl e Encounter Details Date Type Department Care Team (Late st Contact Info) Description 04/13/2006 2:10 PM PROGRAM MANAGEMENT MANAGER - 04/13/2006 4:00 PM PROGRAM MANAGEMENT MANAGER Hospital Encounter 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
--- OUTSIDE RECORDS SUMMARY | 2024-03-22 16:51 | XMS_ITS | Encounter Summary ---
Author Organization [facility] Facility Care Team Providers Care Asphalt Paving Superintendent Name Role Phone Unavailable Primary Care Provider Unavailabl e Encounter Details Date Type Department Care Team (Late st Contact Info) Description 06/27/2006 3:31 PM CDT - 06/27/2006 4:00 PM CDT Hospital Encounter [facility] Angelito Villasenor MD [address] [address] Social History Tobacco Use Types Packs/Day Years Used Date Smoking Tobacco: Never Assessed Comments Unknown Sex and Gender Information Value Date Recorded Sex Assigned at Not on file 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
--- OUTSIDE RECORDS SUMMARY | 2024-03-22 16:51 | XMS_ITS | Encounter Summary ---
Author Organization [facility] Facility Care Team Providers Care Joint Special Operations Name Role Phone Unavailable Primary Care Provider Unavailabl e Encounter Details Date Type Department Care Team (Late st Contact Info) Description 09/04/2006 8:18 PM CDT - 09/11/2006 3:21 PM CDT Hospital Encounter 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
--- OUTSIDE RECORDS SUMMARY | 2024-03-22 16:51 | XMS_ITS | Encounter Summary ---
Author Organization [facility] Facility Care Team Providers Care Legislative Correspondent Name Role Phone Unavailable Primary Care Provider Unavailabl e Encounter Details Date Type Department Care Team (Late st Contact Info) Description 08/31/2006 11:15 PM CDT - 09/01/2006 9:19 AM CDT Hospital Encounter [facility] Mina Siddiqui MD [address] [facility] [address] [place] [address] Social History Tobacco Use Types Packs/Day Years Used Date Smoking Tobacco: Never Assessed Comments Unknown Sex and Gender Information Value Date Recorded Sex Assigned at Not on file 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
--- OUTSIDE RECORDS SUMMARY | 2024-03-22 16:51 | XMS_ITS | Encounter Summary ---
Author Organization [facility] Healthcare Address [address] [place] [address] Care Team Providers Care Acoustic Intelligence Specialist Name Role Phone Joy Sheppard Primary Care Provider [phone] Reason for Visit * Reason Comments Migraine Encounter Details Date Type Department Care Team ([facility] Contact Info) Description 07/31/2023 3:30 PM CDT Office Visit [facility] [address] [place] [address] Mckayla Haywood MD [address] [facility] [address] [address] [place] [address] Intractable chronic 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 without status migrainosus (Primary Dx) Social History Tobacco Use Types Packs/Day Years Used Date Smoking Tobacco: Never Smokeless Tobacco: Never Tobacco Cessation:Counseling Given: Not Answered Comments Unknown Sex and Gender Information Value Date Recorded Sex Assigned at Not on file 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 Gender Identity Not on file Sexual Orientation Not on file documented as of this encounter Last Filed Vital Signs Vital Sign Reading Time Taken Comments Blood Pressure 124/78 07/31/2023 3:27 PM CDT Pulse 67 07/31/2023 3:27 PM CDT Temperature - - Respiratory Rate 16 07/31/2023 3:27 PM CDT Oxygen Saturation 98% 07/31/2023 3:27 PM CDT Inhaled Oxygen Concentration - - Weight 59 kg (130 lb) 07/31/2023 3:27 PM CDT Height 165.1 cm (5' 5 ) 07/31/2023 3:27 PM CDT Body Mass Index 21.63 07/31/2023 3:27 PM CDT documented in this encounter Progress Notes * Mckayla Haywood MD - 07/31/2023 3:30 PM CDT NEUROLOGY NOTE Meredith Frost is a 42 y.o. female who is being seen at the request of Joy Sheppard PA. Chief Complaint Patient presents with Migraine MEDICAL DECISION MAKING Assessment & Plan Diagnoses and all orders for this visit: Intractable chronic 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 without status migrainosus (Primary) Assessment & Plan: Assessment: The patient has a history of chronic migraines and has done very well with Botox for chronic migraine. She reports no side effects from this. She reports a greater than 50% reduction in her headache severity and frequency. Plan: Continue Botox for chronic migraine. Her next due date for Botox treatment is 09/13/2023. Patient's treatment goals Establish migraine care at [facility] Follow Up Patient is to come in for Botox on or about 09/13/2023 after it has been approved. The patient is reminded to contact us if there are problems prior to the next visit. Subjective SUMMARY Patient has a longstanding history of migraine headaches. She has had an excellent response to Botox with a greater than 50% reduction headache frequency and severity. She has had no side effects from the Botox. She also follows with other providers for her epilepsy and MS. Last Botox Treatment: 06/13/2023 Next Botox treatment. 09/13/2023 Side effects from Botox: none Antithrombotic agent: none status: not on control. Current migraine prophylactic medications:None Current migraine abortive treatments:Tylenol Headache days/month - Current: 3 days per month Baseline: 30 days per month Headache hr/day: - Current: 2-3 hours per occurrence Baseline: 12 hours per occurrence Symptom reduction from baseline: >50% Headache/migraine patient intake form last updated on 07/31/2023 Age that headaches started: 36 y/o Any initiating event: None Triggers: Bright lights Headache/migraine frequency Approximate number of headache days per month over the last 3 months? 3 How many days of incapacitating headaches per month? 3 On average, how many hours per day do headaches/migraines last? 12 Over the last 3 months, have headache/migraine frequency changed? No Headache/migraine symptoms? What symptoms occur with headache/migraine? Moderate to or severe pain x Nausea x Vomiting x Sensitivity to light x Sensitivity to sound x Sensitivity to Smell Pain in one side or specific area X, R hindu Pulsatile pain x Vertigo Awakens from sleep because BARCENAS Worsens with change in position or straining Aura Complicated symptom On average, how painful are the headaches/migraines? Not very painful Somewhat painful Painful x Very painful x Headache/migraine effect on daily life How many days last month did the patient miss work or school due to headaches or migraine? NOT WORKING How many days last month to the patient cancel plans due to headache/migraine ? 0 x 1-2 3-4 5+ How many days last year to the patient go to the ER because of headache/migraine? 0 x 1-2 3-4 5+ Headache/migraine treatments tried or contraindicated, in bold Treatment name dose Results Contraindications Antidepressants Amitriptyline Nortriptyline Zoloft Venlafaxine Duloxetine Drug interaction Anti-seizure med Topamax Lyrica Gabapentin Depakote Not effective Not effective Beta blockers Propranolol Metoprolol Not effective Ca channel blockers Verapamil Triptans Sumatriptan Rizatriptan Frovatriptan Eletriptan OTC Ibuprofen Tylenol Not effective Somewhat effective CGRP medications Aimovig Emgality Ajovy Qulipta Ubrelvy Nurtec Zavzpret Others Botox Magnesium Highly effective No past medical history on file. Past Surgical History: Procedure Laterality Date PORT PLACEMENT CHEST >5 YEARS N/A 08/10/2016 PORT PLACEMENT CHEST >5 YEARS N/A 07/13/2016 Current Outpatient Medications Medication Sig Dispense Refill albuterol HFA (PROVENTIL HFA,VENTOLIN HFA,PROAIR HFA) 90 mcg/actuation inhaler Inhale 2 puffs every6 (six) hours as needed ARIPiprazole (ARIPiprazole) 300 mg IM injection Inject 300 mg into the muscle as instructed every 30 (thirty) days Last admin: baclofen (LIORESAL) 10 mg tablet TAKE 1 TABLET BY MOUTH TWICE DAILY. MAY CAUSE DROWSINESS bwpblglety-rgkntasiuiizi-qgbacnpa (ESGIC) 50-325-40 mg per tablet Take 1 tablet by mouth every 4 (four) hours as needed escitalopram (LEXAPRO) 20 mg tablet Take 20 mg by mouth daily fluticasone propionate (FLONASE) 50 mcg/actuation nasal spray Administer 1 spray into each nostril daily as needed hydrOXYzine (ATARAX) 25 mg tablet Take 25 mg by mouth 2 (two) times a day as needed for anxiety ibuprofen (ADVIL,MOTRIN) 800 mg tablet Take 1 tablet by mouth 2 (two) times a day as needed lacosamide (VIMPAT) 100 mg tablet Take 1 tablet (100 mg total) by mouth 2 (two) times a day 60 tablet 0 ocrelizumab (OCREVUS) 30 mg/mL solution Infuse 600 mg into a venous catheter every 6 (six) months Last admin: onabotulinumtoxin A (BOTOX) 100 unit recon soln Inject 200 Units into the muscle as instructed every 3 (three) months Last admin: Symbicort 160-4.5 mcg/actuation inhaler Inhale 2 puffs 2 (two) times a day zonisamide (ZONEGRAN) 100 mg capsule Take 500 mg by mouth nightly No current facility-administered medications for this visit. No Known Allergies Social History Tobacco Use Smoking status: Never Smokeless tobacco: Never Substance and Sexual Activity Drug use: Yes Frequency: 7.0 times per week Types: Marijuana Sexual activity: Not on file Alcohol Use: Not At Risk (11/21/2022) Received from [facility] AUDIT-C Frequency of Alcohol Consumption: Never Average Number of Drinks: Patient does not drink Frequency of Binge Drinking: Never No family history on file. Patient Active Problem List Diagnosis Seizure (HCC) Epilepsy (HCC) Multiple sclerosis (HCC) Migraine Seizures (HCC) Review of Systems Please see review of systems paper form filled out by patient and scanned into [employer]. Objective EXAM FINDINGS Vital Signs Vitals: 07/31/23 1527 BP: 124/78 Pulse: 67 Resp: 16 SpO2: 98% Weight: 59 kg (130 lb) Height: 165.1 cm (5' 5 ) Physical Exam: General Appearance: Well developed, in no distress. Mental Status: Awake, alert. Oriented x3. Follows commands. Cranial Nerves: PERRL. Extraocular movements intact. Visual huber are full. Facial movement intact, symmetric. Facial sensation intact V1-V3. Motor: RUE 5/5, LUE 5/5, RLE 5/5, LLE 5/5 No atrophy. Reflexes: DTRs 4/4 throughout. She has Osito's bilaterally. Coordination/Cerebellar: Intact by [id number] exam. Gait: Walks without an assistive Record review: MRI brain and cervical spine 07/11/2023 MRI brain: Within the constraint of motion [...] lesions and no new enhancing intramedullary lesions. . 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 Time Spent I spent 25 minutes in direct patient care reviewing history, examining patient, reviewing studies, formulating care plan and medical decisions, reviewing studies, and coordinating care with other providers involved in the patient's care. This time does not include time spent in any separately reportable services. Mckayla Haywood MD [facility] [phone] CC: Joy Sheppard PA documented in this encounter Miscellaneous Notes * Assessment & Plan Note - Mckayla Haywood MD - 07/31/2023 4:03 PM CDT Associated Problem(s): Intractable chronic 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 without status migrainosus Assessment: The patient has a history of chronic migraines and has done very well with Botox for chronic migraine. She reports no side effects from this. She reports a greater than 50% reduction in her headache severity and frequency. Plan: Continue Botox for chronic migraine. Her next due date for Botox treatment is 09/13/2023. documented in this encounter Plan of Treatment Not on file documented as of this encounter Visit Diagnoses Diagnosis Intractable chronic 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 without status migrainosus- Primary documented in this encounter Historical Medications * This list may reflect changes made after this encounter. folic acid (FOLVITE) 1 mg tablet Take 1 tablet (1,000 mcg total) by mouth daily docusate sodium (COLACE) 100 mg capsule Take 1 capsule (100 mg total) by mouth every 12 (twelve) hours 06/21/2021 brivaracetam 75 mg tablet Take 2 tablets (150 mg total) by mouth 2 (two) times a day 04/12/2023 traZODone (DESYREL) 50 mg tablet Take 1 tablet (50 mg total) by mouth nightly as needed 03/06/2023 09/06/2023 ARIPiprazole (ABILIFY) 5 mg tablet Take 1 tablet (5 mg total) by mouth daily 09/06/2023 added in this encounter Care Teams Acoustic Intelligence Specialist Relationship Specialty Start Date End Date Joy Sheppard PA [address] [place] [id number] PCP - General Physician Inventory Analyst 07/12/23 documented as of this encounter
--- OUTSIDE RECORDS SUMMARY | 2024-03-22 16:51 | XMS_ITS | Encounter Summary ---
Author Organization [facility] Address [address] [place] [address] Care Team Providers Care Organ Builder Name Role Phone Unavailable Primary Care Provider Unavailabl e Reason for Visit * MRI/CAT/PET Scan (Routine) - Closed Specialty Diagnoses / Procedures Referred By Nicole t Referred To Contact Procedures Neuro MR Outside Reference Transcribed Order, Provider Referral ID Status Reason Start Date Expiration Date Visits Re quested Visits Authorized [id number] Closed 10/02/2023 10/31/2024 1 1 Encounter Details Date Type Department Care Team (Latest Contact Info) Description 11/08/2020 - 11/08/2020 11:59 PM CDT Hospital Encounter [facility] - [facility] [phone] Discharge Disposition: Discharge to home or self care Social History Tobacco Use Types Packs/Day Years Used Date Smoking Tobacco: Never Assessed Comments Unknown Sex and Gender Information Value Date Recorded Sex Assigned at Not on file 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 us Provider Transcribed Order IMG MRI PROCEDURES Fi nal Result [facility]PACS[facility]OUTSIDE_FILM[facility] documented in this encounter Visit Diagnoses Not on filedocumented in this encounter
--- OUTSIDE RECORDS SUMMARY | 2024-03-22 16:51 | XMS_ITS | Encounter Summary ---
Author Organization [facility] Healthcare Address [address] [place] [address] Care Team Providers Care Transportation Dispatcher Name Role Phone No, Physician Primary Care Provider [phone] Reason for Visit * Reason Comments Seizures * Auth/Cert Specialty Diagnoses / Procedures Referred By Contac t Referred To Contact Diagnoses Multiple sclerosis (HCC) Seizure (HCC) Nonintractable epilepsy without status epilepticus, unspecified epilepsy type (HCC) Procedures admit Referral ID Status Reason Start Date Expiration Date Visits Re quested Visits Authorized [id number] 1 1 Encounter Details Date Type Department Care Team (Latest Contact Info) Description 12/29/2020 2:32 PM CDT - 01/03/2021 3:24 PM CDT Hospital Encounter [address] [phone] Dalton Ashford MD [address] [place] [id number] Parmjit Powell MD [address] [place] [address] Spencer Richardson MD [address] [place] [id number] Seizure (CMS/HCC) (HCC) (Primary Dx); Multiple sclerosis (CMS/HCC) (HCC); Nonintractable epilepsy without status epilepticus, unspecified epilepsy type (HCC) Discharge Disposition: Discharge to home or self care Social History Tobacco Use Types Packs/Day Years Used Date Smoking Tobacco: Never Smokeless Tobacco: Never Tobacco Cessation:Counseling Given: No Comments Unknown Sex and Gender Information Value Date Recorded Sex Assigned at Not on file 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 Gender Identity Not on file Sexual Orientation Not on file documented as of this encounter Last Filed Vital Signs Vital Sign Reading Time Taken Comments Blood Pressure 110/69 01/03/2021 11:00 AM CDT Pulse 86 01/03/2021 11:00 AM CDT Temperature 36.5 ??C (97.7 ??F) 01/03/2021 1 1:00 AM CDT Respiratory Rate 16 01/03/2021 11:0 0 AM CDT Oxygen Saturation 98% 01/03/2021 11: 00 AM CDT Inhaled Oxygen Concentration - - Weight 63.5 kg (139 lb 14.4 oz) 12/29/2020 9:42 PM CDT Height 165.1 cm (5' 5 ) 12/29/2020 9:42 PM CDT Body Mass Index 23.28 12/29/2020 9:42 PM CDT documented in this encounter Discharge Summaries * Spencer Richardson MD - 01/03/2021 11:36 AM CDT Images from the original note were not included. Hospitalist Discharge Summary Patient Name: Meredith Frost / 40 y.o. / female : 1980 PCP: Physician Zahida Date of Admit: 12/29/2020 Date of DC : 01/03/21 Admitting Dx: Seizure (CMS/HCC) (HCC) DISCHARGE DIAGNOSES: Principal Problem: Seizure (CMS/HCC) (HCC) Active Problems: Epilepsy (HCC) Multiple sclerosis (CMS/HCC) (HCC) Migraine Seizures (CMS/HCC) (HCC) Resolved Problems: No resolved hospital problems. PROCEDURES: None CONSULTANTS: IP CONSULT TO NEUROLOGY Hospital Course: Meredith Frost is a 40 y.o. female with past medical history of multiple or sclerosis, migraine, epilepsy was admitted the hospital secondary to Seizure. CT head was done that showed no acute intracranial findings. Patient was presented with an elevated WBC count which at this point I believe is secondary to the seizure. UA was positive for UTI urine toxicology was positive for cannabinoids. Patientwas started on ceftriaxone. MRI of the brain was done it reported marked supratentorial and infratentorial white matter disease consistent with history of multiple or sclerosis, anterior left med related demyelinating lesion corresponding with active disease. After assessing the patient neurology re commended the patient to be started on high-dose steroids for MS flare, according to Neurology there is of the surgeon was likely secondary to the UTI and EEG showed frequent epileptiform discharges that appear to be focused over the left fronto-temporal??region and Vimpat was added . Patient was also found to have a UTI for which she was treated with ceftriaxone, urine culture shown no evidence of any grow bacteria upon discharge antibiotic therapy was de-escalated to Keflex. Upon admission patient was found to be dysarthric which is resolved. On January 01 neurology repeated an EEG it reported left frontal temporal discharges with focal slowing, suggesting of likely epileptogenic region. Patient completed the pulse of steroids with added taper down of prednisone On January 03 a repeat EEG was done that reported Improvement compare to previus EEG Neurology cleared the patient for discharge with follow-up with [facility] Spoke with patient mom Ms. Serg Frost she was informed Patient is medically cleared to be discharged with follow-up with her neurologist. I recommended following up with primary care within 1 week. Discharge medications and new prescriptions: Your medication list ASK your doctor about these medications Instructions Last Dose Given Next Dose Due albuterol HFA 90 mcg/actuation inhaler Commonly known as: PROVENTIL HFA,VENTOLIN HFA,PROAIR HFA ARIPiprazole 300 mg IM injection Commonly known as: ABILIFY MAINTENA baclofen 10 mg tablet Commonly known as: LIORESAL xpulybwwws-ikrezfglcreqt-dbtlojni 50-325-40 mg per tablet Commonly known as: ESGIC escitalopram 20 mg tablet Commonly known as: LEXAPRO fluticasone propionate 50 mcg/actuation nasal spray Commonly known as: FLONASE hydrOXYzine 25 mg tablet Commonly known as: ATARAX ibuprofen 800 mg tablet Commonly known as: ADVIL,MOTRIN ocrelizumab 30 mg/mL solution Commonly known as: OCREVUS onabotulinumtoxin A 100 unit recon soln Commonly known as: BOTOX Symbicort 160-4.5 mcg/actuation inhaler Generic drug: budesonide-formoteroL zonisamide 100 mg capsule Commonly known as: ZONEGRAN Significant Medication Changes: Vimpat was added . Keflex for 1 more day Discharge Lab Data: Hematology Lab History Some values may be hidden. Unless noted otherwise, only the newest values recorded on each date aredisplayed. Labs - Hematology Latest Ref Range 12/31/20 01/01/21 01/02/21 01/03/21 WBC 3.8 - 9.9 K/cumm 24.6 (A) 26.5 (A) 21.3 (A) 11.9 (A) Total Hb, POC 11.9 - 15.5 g/dL 11.5 (A) 10.4 (A) 10.5 (A) 11.5 (A) Hct 35.6 - 45.5 % 37.5 34.0 (A) 33.8 (A) 37.3 Plt 150 - 400 K/cumm 416 (A) 382 360 390 Neutrophil abs 1.7 - 6.5 K/cumm 23.7 (A) 23.5 (A) 17.8 (A) 8.2 (A) Lymphocytes, abs 0.8 - 3.3 K/cumm 0.5 (A) 1.0 1.7 2.1 (A) Abnormal value Chem/LFT Lab History Some values may be hidden. Unless noted otherwise, only the newest values recorded on each date aredisplayed. Labs-Chem/LFT Latest Ref Range 12/31/20 01/01/21 01/02/21 01/03/21 Sodium 135 - 145 mmol/L 140 142 143 141 Creatinine 0.60 - 1.10 mg/dL 0.60 0.50 (A) 0.40 (A) 0.50 (A) Bilirubin, total 0.1 - 1.2 mg/dL <0.2 AST 10 - 45 Units/L 9 (A) ALT 7 - 45 Units/L 8 CrCl- Actual Body Weight (Cockcroft-Gault) 124.9 149.9 187.4 149.9 (A) Abnormal value Labs Needing Follow Up: Discharge Physical Exam: Weight: 63.5 kg (139 lb 14.4 oz) BP 110/69 (BP Location: Right arm) Pulse 86 Temp 36.5 ??C (97.7 ??F) (Oral) Resp 16 Ht 165.1 cm (5' 5 ) Wt 63.5 kg (139 lb 14.4 oz) SpO2 98% BMI 23.28 kg/m?? General: alert, cooperative, in NAD HEENT: unremarkable Lungs: CTAB CV: RRR, no murmurs, normal s1, s2 Abdomen: soft, non tender, BS+ve Skin: no rashes. Normal skin turgor Outpatient Follow-Up: Discharge Condition: stable. Disposition: home. Patient instructions: Activity: activity as tolerated. Diet: Adult Diet Regular Wound Care: none needed. Follow-up: No, Physician Code Status At time of Discharge: Full Code More than 33 minutes were spent in this discharge activity. Discharge instructions using teach back, understanding assessed and validated. Spencer Rodas MD 11:36 AM 01/03/2021 [facility] Hospitalist Group documented in this encounter Medications at Time [...] every 4 (four) hours as needed 01/14/2018 escitalopram (LEXAPRO) 20 mg tablet Take 1 [...] (500 mg total) by mouth nightly 12/25/2020 cephalexin (KEFLEX) 500 mg capsuleIndicatio ns:Urinary Tract/Genitourin caridad Infection Take 1 capsule (500 mg total) by mouth 4 (four) times a day for 1 day 4 capsule 01/03/2021 1 predniSONE (DELTASONE) 10 mg tablet Take 3 tablets (30 mg) by mouth daily for 1 dose 3 tablet 01/04/2021 1 predniSONE (DELTASONE) 10 mg tablet Take 1 tablet (10 mg) by mouth daily for 3 doses 3 tablet 01/11/2021 1 predniSONE (DELTASONE) 20 mg tablet Take 1 tablet (20 mg) by mouth daily for 3 doses 3 tablet 01/05/2021 1 predniSONE (DELTASONE) 5 mg tablet Take 3 tablets (15 mg) by mouth daily for 3 doses 9 tablet 01/08/2021 1 predniSONE (DELTASONE) 5 mg tablet Take 1 tablet (5 mg) by mouth daily for 3 doses 3 tablet 01/14/2021 1 ARIPiprazole (ARIPiprazole) 300 mg IM injection Inject [...] 01/03/2021 4 documented as of this encounter Ordered Prescriptions Prescription Sig Dispense Quantity Refills Last Filled Start Date End Date predniSONE (DELTASONE) 5 mg tablet Take 1 tablet (5 mg) by mouth daily for 3 doses 3 tablet 01/14/2021 1 predniSONE (DELTASONE) 10 mg tablet Take 1 tablet (10 mg) by mouth daily for 3 doses 3 tablet 01/11/2021 1 predniSONE (DELTASONE) 5 mg tablet Take 3 tablets (15 mg) by mouth daily for 3 doses 9 tablet 01/08/2021 1 predniSONE (DELTASONE) 20 mg tablet Take 1 tablet (20 mg) by mouth daily for 3 doses 3 tablet 01/05/2021 1 predniSONE (DELTASONE) 10 mg tablet Take 3 tablets (30 mg) by mouth daily for 1 dose 3 tablet 01/04/2021 1 lacosamide (VIMPAT) 100 mg tabletIndications: Focal Epilepsy Take 1 tablet (100 mg total) by mouth 2 (two) times a day 60 tablet 01/03/2021 4 cephalexin (KEFLEX) 500 mg capsuleIndications :Urinary Tract/Genitourinar y Infection Take 1 capsule (500 mg total) by mouth 4 (four) times a day for 1 day 4 capsule 01/03/2021 1 documented in this encounter Discharge Disposition Disposition Code Departure Means Destination Discharge to home or self care documented in this encounter Progress Notes * Spencer Richardson MD - 01/03/2021 11:44 AM CDT Images from the original note were not included. General Medicine Daily Progress SUBJECTIVE Patient is AO x3 denies acute complaint Interval History: The patient is a 48-year-old female with past medical history of multiple or sclerosis, migraine, epilepsy was admitted the hospital secondary to Seizure. CT head was done that showed no acute intracranial findings. Patient was presented with an elevated WBC count which at this point I believe is secondary to the seizure. UA was positive for UTI urine toxicology was positive forcannabinoids. Patient was started on ceftriaxone. MRI of the brain was done it reported marked supratentorial and infratentorial white matter disease consistent with history of multiple or sclerosis,anterior left med related demyelinating lesion corresponding with active disease. After assessing the patient neurology recommended the patient to be started on high-dose steroids for MS flare, according to Neurology there is of the surgeon was likely secondary to the UTI and EEG showed frequent epileptiform discharges that appear to be focused over the left fronto-temporal region and Vimpat was added . Upon admission patient was found to be dysarthric which is resolved at this point I believe it was secondary to the post ictal period. On January 01 neurology repeated an EEG it reported left frontal temporal discharges with focal slowing, suggesting of likely epileptogenic region. Patient completed the pulse of steroids with added taper down of prednisone. On January 04 and repeat EEG was done Anticipated discharge today after eeg report and Neurology clearance . OBJECTIVE Vitals: 24hr Min/Max: Temp Min: 36.5 ??C (97.7 ??F) Max: 36.8 ??C (98.2 ??F) Pulse Min: 71 Max: 86 BP Min: 93/60 Max: 117/72 Resp Min: 16 Max: 20 SpO2 Min: 96 % Max: 99 % Most Recent : Vitals: 01/03/21 1100 BP: 110/69 Pulse: 86 Resp: 16 Temp: 36.5 ??C (97.7 ??F) SpO2: 98% I/O last 2 completed shifts: In: 1200 [P.O.:1200] Out: - I/O this shift: In: 4000 [P.O.:4000] Out: - Physical Exam: Eyes: EOMI, DEBBIE, sclare non icteric Neck: supple, no nuchal ridigity, no gross carotid bruits appreciated Pharynx: No gross oral lesion, tongue midline, mucosa moist Lungs CTA Heart: [id number], no significant murmur or gallop Abd: +BS, Non Tender, Non distended, No gross hepatomegaly Lower Ext: No gross edema, pedal artery pulses are palpable bilaterally Neuro: AOx2 decrease muscle strength on the right leg Musculoskeletal: no gross joint erythema, edema, tenderness Skin: No new change Lab/Current Medication Review: Recent Results (from the past 24 hour(s)) CBC with auto differential Collection Time: 01/03/21 9:22 AM Result Value Ref Range WBC 11.9 (H) 3.8 - 9.9 K/cumm Hgb 11.5 (L) 11.9 - 15.5 g/dL Hct 37.3 35.6 - 45.5 % Plt 390 150 - 400 K/cumm MPV 9.1 9.1 - 12.3 fL RBC 5.11 3.90 - 5.20 M/cumm MCV 73.0 (L) 81.3 - 96.4 fL MCH 22.5 (L) 27.1 - 33.3 pg MCHC 30.8 (L) 32.3 - 35.7 g/dL RDW CV 17.2 (H) 11.1 - 14.9 % RDW SD 45.1 35.7 - 48.1 fL NRBC abs 0.00 0.00 - 0.01 K/cumm Basic metabolic panel Collection Time: 01/03/21 9:22 AM Result Value Ref Range Sodium 141 135 - 145 mmol/L Potassium, pl 3.3 3.3 - 4.9 mmol/L Chloride 109 97 - 110 mmol/L CO2 25 22 - 32 mmol/L Anion gap 7 2 - 15 mmol/L BUN 15 8 - 25 mg/dL Creatinine 0.50 (L) 0.60 - 1.10 mg/dL Glucose 89 70 - 199 mg/dL Calcium 9.4 8.5 - 10.3 mg/dL Differential, auto Collection Time: 01/03/21 9:22 AM Result Value Ref Range Neutrophil abs 8.2 (H) 1.7 - 6.5 K/cumm Imm gran abs 0.1 0.0 - 0.1 K/cumm Lymphocyte abs 2.1 0.8 - 3.3 K/cumm Monocyte abs 1.4 (H) 0.2 - 0.8 K/cumm Eosinophil abs 0.1 0.0 - 0.5 K/cumm Basophil abs 0.0 0.0 - 0.1 K/cumm Neutrophil pct 68.5 % Imm gran pct 0.6 % Lymphocyte pct 17.5 % Monocyte pct 12.0 % Eosinophil pct 1.1 % Basophil pct 0.3 % eGFR Collection Time: 01/03/21 9:22 AM Result Value Ref Range eGFR 121 mL/min/1.73 m2 Current Facility-Administered Medications Medication Dose Route Frequency Provider Last Rate Last Admin ??? acetaminophen (TYLENOL) tablet 650 mg 650 mg oral Q4H PRN Parmjit Powell MD ??? albuterol HFA (PROVENTIL HFA,VENTOLIN HFA,PROAIR HFA) 90 mcg/actuation inhaler 2 puff 2 puff inhalation Q6H PRN (RT) Parmjit Powell MD ??? budesonide-formoteroL (SYMBICORT) 160-4.5 mcg/actuation inhaler 2 puff 2 puff inhalation BID (RT) Parmjit Powell MD 2 puff at 01/02/212117 ??? cefTRIAXone (ROCEPHIN) 1,000 mg/10 mL in sterile water (premix) 1,000 mg 1,000 mg intravenous Q24H GERMÁN Parmjit Powell MD 1,000 mg at 01/03/21 0952 ??? enoxaparin (LOVENOX) syringe 40 mg 40 mg subcutaneous Daily-2100 Parmjit Powell MD 40 mg at 01/02/212 ??? escitalopram (LEXAPRO) tablet 20 mg 20 mg oral Daily Parmjit Powell MD 20 mg at 01/03/21 0837 ??? hydrOXYzine (ATARAX) tablet 25 mg 25 mg oral BID PRN Parmjit Powell MD ??? labetaloL (NORMODYNE,TRANDATE) injection 20 mg 20 mg intravenous Q6H PRN Parmjit Ruiz MD ??? lacosamide (VIMPAT) tablet 100 mg 100 mg oral BID Roberto Angel MD 100 mg at 01/03/21 0836 ??? LORazepam (ATIVAN) injection 1 mg 1 mg intravenous Q6H PRN Parmjit Powell MD ??? ondansetron (ZOFRAN) injection 4 mg 4 mg intravenous Q6H PRN Parmjit Powell MD ??? oxyCODONE-acetaminophen (PERCOCET) 5-325 mg per tablet 1 tablet 1 tablet oral Q4H PRN Parmjit Powell MD ??? predniSONE (DELTASONE) tablet 30 mg 30 mg oral Daily Spencer Richardson MD 30 mg at 01/03/21 0836 Followed by ??? [START ON 01/05/2021] predniSONE (DELTASONE) tablet 20 mg 20 mg oral Daily Spencer Richardson MD Followed by ??? [START ON 01/08/2021] predniSONE (DELTASONE) tablet 15 mg 15 mg oral Daily Spencer Richardson MD Followed by ??? [START ON 01/11/2021] predniSONE (DELTASONE) tablet 10 mg 10 mg oral Daily Spencer Richardson MD Followed by ??? [START ON 01/14/2021] predniSONE (DELTASONE) tablet 5 mg 5 mg oral Daily Spencer Richardson MD ??? zonisamide (ZONEGRAN) capsule 500 mg 500 mg oral Nightly Parmjit Powell MD 500 mg at 01/02/212142 A/P: Principal Problem: Seizure (CMS/HCC) (HCC) Active Problems: Epilepsy (HCC) Multiple sclerosis (CMS/HCC) (HCC) Migraine Seizures (CMS/HCC) (HCC) Resolved Problems: No resolved hospital problems. Dysarthria Worsening MS? Verses CVA? Verses postictal state? Verses metabolic encephalopathy related to a UTI MRI to be ordered, supportive management, neurology consulted If MRI positive for acute flare will start the patient on high-dose steroids Loaded with Keppra from the ER, given ativan also, will continue b.i.d. Keppra, patient states issues in time the desonide and a will hold until evaluated by Neurology for chronic management UA negative for stimulants, only positive for cannabis NPO for the time being, nursing bedside evaluation tomorrow, hopefully just postictal 12/30 No evidence of dysarthria at this point Will still get MRI of the brain Neurology consult 12/31 MRI show evidence of active MS flare. Neurology recommended IV steroids Neurology consult appreciated 01/01 MRI show evidence of active MS flare. Continue IV steroids Neurology consult appreciated 01/02 MRI show evidence of active MS flare. Patient completed IV steroids with switch it to prednisone taper Neurology consult appreciated 01/03 ??MRI show evidence of active MS flare. Patient completed IV steroids with switch it to prednisone taper Neurology consult appreciated Generalized tonic-clonic seizure Patient has a background of seizure disorder on zonisamide 500 mg daily, was given Ativan being loaded with Keppra, further adjustment on chronic medications per Neurology tomorrow ??12/30 No evidence of dysarthria at this point Will still get MRI of the brain Neurology consult Possible EEG 12/31 MRI show evidence of active MS flare. Neurology recommended IV steroids Neurology consult appreciated EEG today 01/01 MRI show evidence of active MS flare. Neurology recommended IV steroids Neurology consult appreciated EEG showed frequent epileptiform discharges that appear to be focused over the left fronto-temporalregion. Vimpat was added Continue Zonisamide 01/02 MRI show evidence of active MS flare. Neurology recommended IV steroids Neurology consult appreciated EEG showed frequent epileptiform discharges that appear to be focused over the left fronto-temporalregion. Repeat EEG done on November 01 reported Left frontotemporal discharges with focal slowing, suggests likely epileptogenicity from this region Continue Zonisamide and Vimpat 01/03 MRI show evidence of active MS flare. Neurology recommended IV steroids Neurology consult appreciated EEG showed frequent epileptiform discharges that appear to be focused over the left fronto-temporalregion. Repeat EEG done on November 01 reported Left frontotemporal discharges with focal slowing, suggests likely epileptogenicity from this region Continue Zonisamide and Vimpat Anticipated discharge today Multiple sclerosis MRI done on November 09, 2020 showed the patient have stable extensive white matter disease within the supratentorial brain related to MS also stable cervical lesions On ocrelizumab to be continued if present on formulary if not they can bring it of a non formulary,reviewed package insert no causation of seizure disorder 12/30 Neurology consult MRI of the brain 12/31 MRI show evidence of active MS flare. Neurology recommended IV steroids Neurology consult appreciated Continue steroid 01/02 MRI show evidence of active MS flare. Patient completed IV steroids with switch it to prednisone taper Neurology consult appreciated 01/03 MRI show evidence of active MS flare. Neurology recommended IV steroids Neurology consult appreciated EEG showed frequent epileptiform discharges that appear to be focused over the left fronto-temporalregion. Repeat EEG done on November 01 reported Left frontotemporal discharges with focal slowing, suggests likely epileptogenicity from this region Continue Zonisamide and Vimpat Anticipated discharge today ?? Mood disorder unspecified holding the patient's monthly injection of Abilify , continuing escitalopram ?? Migraine disorder has had home p.r.n. Triptan, ibuprofen, Fioricet, will hold for now Leukocytosis suspect stress-induced, repeat CBC in the a.m. ?? Abnormal UA ceftriaxone started, will continue pending cultures ?? DVT prophylaxis: Lovenox PT/OT: As tolerate Case discussed with Case Management and Carroting Machine Operator Medical complexity/risk:Moderate Voice recognition software MModal Fluency Direct may have been used dictate and transcribe this document. Inspector Of Weights And Measures variances may occur. Despite proofreading, typographical errors may occur. Spencer Rodas MD 01/03/2021 11:44 AM * Roberto Angel MD - 01/02/2021 8:10 PM CDT Completed 3 days of high dose steroids for multiple sclerosis flare. Cognition improving. On home zonisamide and new med of Vimpat. Will plan for repeat EEG tomorrow (Sunday) prior to discharge. Willneed to follow up with her M.S specialist and with her seizure specialist. * Spencer Richardson MD - 01/02/2021 10:08 AM CDT Images from the original note were not included. General Medicine Daily Progress SUBJECTIVE Patient is AO x2 denies acute complaint Interval History: The patient is a 48-year-old female with past medical history of multiple or sclerosis, migraine, epilepsy was admitted the hospital secondary to Seizure. CT head was done that showed no acute intracranial findings. Patient was presented with an elevated WBC count which at this point I believe is secondary to the seizure. UA was positive for UTI urine toxicology was positive forcannabinoids. Patient was started on ceftriaxone. MRI of the brain was done it reported marked supratentorial and infratentorial white matter disease consistent with history of multiple or sclerosis,anterior left med related demyelinating lesion corresponding with active disease. After assessing the patient neurology recommended the patient to be started on high-dose steroids for MS flare, according to Neurology there is of the surgeon was likely secondary to the UTI and EEG showed frequent epileptiform discharges that appear to be focused over the left fronto-temporal region and Vimpat was added . Upon admission patient was found to be dysarthric which is resolved at this point I believe it was secondary to the post ictal period. On January 01 neurology repeated an EEG it reported left frontal temporal discharges with focal slowing, suggesting of likely epileptogenic region. Patient completed the pulse of steroids with added taper down of prednisone. Anticipated discharge tomorrow. OBJECTIVE Vitals: 24hr Min/Max: Temp Min: 36.4 ??C (97.5 ??F) Max: 37.4 ??C (99.4 ??F) Pulse Min: 65 Max: 80 BP Min: 95/59 Max: 119/70 Resp Min: 16 Max: 20 SpO2 Min: 94 % Max: 98 % Most Recent : Vitals: 01/02/21 0735 BP: 119/70 Pulse: 69 Resp: 20 Temp: 36.4 ??C (97.5 ??F) SpO2: 97% I/O last 2 completed shifts: In: 160 [IV Piggyback:160] Out: - No intake/output data recorded. Physical Exam: Eyes: EOMI, DEBBIE, sclare non icteric Neck: supple, no nuchal ridigity, no gross carotid bruits appreciated Pharynx: No gross oral lesion, tongue midline, mucosa moist Lungs CTA Heart: [id number], no significant murmur or gallop Abd: +BS, Non Tender, Non distended, No gross hepatomegaly Lower Ext: No gross edema, pedal artery pulses are palpable bilaterally Neuro: AOx2 decrease muscle strength on the right leg Musculoskeletal: no gross joint erythema, edema, tenderness Skin: No new change Lab/Current Medication Review: Recent Results (from the past 24 hour(s)) CBC with auto differential Collection Time: 01/02/21 5:53 AM Result Value Ref Range WBC 21.3 (H) 3.8 - 9.9 K/cumm Hgb 10.5 (L) 11.9 - 15.5 g/dL Hct 33.8 (L) 35.6 - 45.5 % Plt 360 150 - 400 K/cumm MPV 9.6 9.1 - 12.3 fL RBC 4.64 3.90 - 5.20 M/cumm MCV 72.8 (L) 81.3 - 96.4 fL MCH 22.6 (L) 27.1 - 33.3 pg MCHC 31.1 (L) 32.3 - 35.7 g/dL RDW CV 17.3 (H) 11.1 - 14.9 % RDW SD 45.1 35.7 - 48.1 fL NRBC abs 0.00 0.00 - 0.01 K/cumm Basic metabolic panel Collection Time: 01/02/21 5:53 AM Result Value Ref Range Sodium 143 135 - 145 mmol/L Potassium, pl 3.8 3.3 - 4.9 mmol/L Chloride 112 (H) 97 - 110 mmol/L CO2 20 (L) 22 - 32 mmol/L Anion gap 11 2 - 15 mmol/L BUN 19 8 - 25 mg/dL Creatinine 0.40 (L) 0.60 - 1.10 mg/dL Glucose 118 70 - 199 mg/dL Calcium 9.0 8.5 - 10.3 mg/dL Differential, auto Collection Time: 01/02/21 5:53 AM Result Value Ref Range Neutrophil abs 17.8 (H) 1.7 - 6.5 K/cumm Imm gran abs 0.1 0.0 - 0.1 K/cumm Lymphocyte abs 1.7 0.8 - 3.3 K/cumm Monocyte abs 1.6 (H) 0.2 - 0.8 K/cumm Eosinophil abs 0.0 0.0 - 0.5 K/cumm Basophil abs 0.0 0.0 - 0.1 K/cumm Neutrophil pct 83.6 % Imm gran pct 0.6 % Lymphocyte pct 8.1 % Monocyte pct 7.6 % Eosinophil pct 0.0 % Basophil pct 0.1 % eGFR Collection Time: 01/02/21 5:53 AM Result Value Ref Range eGFR 130 mL/min/1.73 m2 Current Facility-Administered Medications Medication Dose Route Frequency Provider Last Rate Last Admin ??? acetaminophen (TYLENOL) tablet 650 mg 650 mg oral Q4H PRN Parmjit Powell MD ??? albuterol HFA (PROVENTIL HFA,VENTOLIN HFA,PROAIR HFA) 90 mcg/actuation inhaler 2 puff 2 puff inhalation Q6H PRN (RT) Parmjit Powell MD ??? budesonide-formoteroL (SYMBICORT) 160-4.5 mcg/actuation inhaler 2 puff 2 puff inhalation BID (RT) Parmjit Powell MD 2 puff at 01/02/21 0834 ??? cefTRIAXone (ROCEPHIN) 1,000 mg/10 mL in sterile water (premix) 1,000 mg 1,000 mg intravenous Q24H [facility] Parmjit Powell MD 1,000 mg at 01/02/21 0949 ??? enoxaparin (LOVENOX) syringe 40 mg 40 mg subcutaneous Daily-2100 Parmjit Powell MD 40 mg at 01/01/211999 ??? escitalopram (LEXAPRO) tablet 20 mg 20 mg oral Daily Parmjit Powell MD 20 mg at 01/02/21 0838 ??? hydrOXYzine (ATARAX) tablet 25 mg 25 mg oral BID PRN Parmjit Powell MD ??? labetaloL (NORMODYNE,TRANDATE) injection 20 mg 20 mg intravenous Q6H PRN Parmjit Ruiz MD ??? lacosamide (VIMPAT) 100 mg in sodium chloride 0.9% 50 mL IVPB 100 mg intravenous Q12H [facility] Roberto Angel MD 120 mL/hr at 01/02/21 0949 100 mg at 01/02/21 0949 ??? LORazepam (ATIVAN) injection 1 mg 1 mg intravenous Q6H PRN Parmjit Powell MD ??? ondansetron (ZOFRAN) injection 4 mg 4 mg intravenous Q6H PRN Parmjit Powell MD ??? oxyCODONE-acetaminophen (PERCOCET) 5-325 mg per tablet 1 tablet 1 tablet oral Q4H PRN Parmjit Powell MD ??? zonisamide (ZONEGRAN) capsule 500 mg 500 mg oral Nightly Parmjit Powell MD 500 mg at 01/01/211999 A/P: Principal Problem: Seizure (CMS/HCC) (HCC) Active Problems: Epilepsy (HCC) Multiple sclerosis (CMS/HCC) (HCC) Migraine Seizures (CMS/HCC) (HCC) Resolved Problems: No resolved hospital problems. Dysarthria Worsening MS? Verses CVA? Verses postictal state? Verses metabolic encephalopathy related to a UTI MRI to be ordered, supportive management, neurology consulted If MRI positive for acute flare will start the patient on high-dose steroids Loaded with Keppra from the ER, given ativan also, will continue b.i.d. Keppra, patient states issues in time the desonide and a will hold until evaluated by Neurology for chronic management UA negative for stimulants, only positive for cannabis NPO for the time being, nursing bedside evaluation tomorrow, hopefully just postictal 12/30 No evidence of dysarthria at this point Will still get MRI of the brain Neurology consult 12/31 MRI show evidence of active MS flare. Neurology recommended IV steroids Neurology consult appreciated 01/01 MRI show evidence of active MS flare. Continue IV steroids Neurology consult appreciated 01/02 MRI show evidence of active MS flare. Patient completed IV steroids with switch it to prednisone taper Neurology consult appreciated ?? Generalized tonic-clonic seizure Patient has a background of seizure disorder on zonisamide 500 mg daily, was given Ativan being loaded with Keppra, further adjustment on chronic medications per Neurology tomorrow ??12/30 No evidence of dysarthria at this point Will still get MRI of the brain Neurology consult Possible EEG 12/31 MRI show evidence of active MS flare. Neurology recommended IV steroids Neurology consult appreciated EEG today 01/01 MRI show evidence of active MS flare. Neurology recommended IV steroids Neurology consult appreciated EEG showed frequent epileptiform discharges that appear to be focused over the left fronto-temporalregion. Vimpat was added Continue Zonisamide 01/02 MRI show evidence of active MS flare. Neurology recommended IV steroids Neurology consult appreciated EEG showed frequent epileptiform discharges that appear to be focused over the left fronto-temporalregion. Repeat EEG done on November 01 reported Left frontotemporal discharges with focal slowing, suggests likely epileptogenicity from this region Continue Zonisamide and Vimpat Multiple sclerosis MRI done on November 09, 2020 showed the patient have stable extensive white matter disease within the supratentorial brain related to MS also stable cervical lesions On ocrelizumab to be continued if present on formulary if not they can bring it of a non formulary,reviewed package insert no causation of seizure disorder 12/30 Neurology consult MRI of the brain 12/31 MRI show evidence of active MS flare. Neurology recommended IV steroids Neurology consult appreciated Continue steroid 01/02 MRI show evidence of active MS flare. Patient completed IV steroids with switch it to prednisone taper Neurology consult appreciated ?? Mood disorder unspecified holding the patient's monthly injection of Abilify , continuing escitalopram ?? Migraine disorder has had home p.r.n. Triptan, ibuprofen, Fioricet, will hold for now Leukocytosis suspect stress-induced, repeat CBC in the a.m. ?? Abnormal UA ceftriaxone started, will continue pending cultures ?? DVT prophylaxis: Lovenox PT/OT: As tolerate Case discussed with Case Management and Carroting Machine Operator Medical complexity/risk:Moderate Voice recognition software [employer] Fluency Direct may have been used dictate and transcribe this document. Inspector Of Weights And Measures variances may occur. Despite proofreading, typographical errors may occur. Spencer Rodas MD 01/02/2021 10:08 AM * Spencer Richardson MD - 01/01/2021 11:44 AM CDT Images from the original note were not included. General Medicine Daily Progress SUBJECTIVE Patient is AO x2 denies acute complaint Interval History: The patient is a 48-year-old female with past medical history of multiple or sclerosis, migraine, epilepsy was admitted the hospital secondary to Seizure. CT head was done that showed no acute intracranial findings. Patient was presented with an elevated WBC count which at this point I believe is secondary to the seizure. UA was positive for UTI urine toxicology was positive forcannabinoids. Patient was started on ceftriaxone. MRI of the brain was done it reported marked supratentorial and infratentorial white matter disease consistent with history of multiple or sclerosis,anterior left med related demyelinating lesion corresponding with active disease. After assessing the patient neurology recommended the patient to be started on high-dose steroids for MS flare, according to Neurology there is of the surgeon was likely secondary to the UTI and EEG showed frequent epileptiform discharges that appear to be focused over the left fronto-temporal region and Vimpat was added . Upon admission patient was found to be dysarthric which is resolved at this point I believe it was secondary to the post ictal period. OBJECTIVE Vitals: 24hr Min/Max: Temp Min: 36.5 ??C (97.7 ??F) Max: 36.8 ??C (98.2 ??F) Pulse Min: 72 Max: 92 BP Min: 94/56 Max: 110/55 Resp Min: 18 Max: 18 SpO2 Min: 93 % Max: 100 % Most Recent : Vitals: 01/01/21 0822 BP: 105/66 Pulse: 73 Resp: 18 Temp: 36.8 ??C (98.2 ??F) SpO2: 100% I/O last 2 completed shifts: In: 600 [P.O.:600] Out: - I/O this shift: In: 160 [IV Piggyback:160] Out: - Physical Exam: Eyes: EOMI, DEBBIE, sclare non icteric Neck: supple, no nuchal ridigity, no gross carotid bruits appreciated Pharynx: No gross oral lesion, tongue midline, mucosa moist Lungs CTA Heart: [id number], no significant murmur or gallop Abd: +BS, Non Tender, Non distended, No gross hepatomegaly Lower Ext: No gross edema, pedal artery pulses are palpable bilaterally Neuro: AOx2 decrease muscle strength on the right leg Musculoskeletal: no gross joint erythema, edema, tenderness Skin: No new change Lab/Current Medication Review: Recent Results (from the past 24 hour(s)) CBC with auto differential Collection Time: 12/31/20 12:07 PM Result Value Ref Range WBC 24.6 (H) 3.8 - 9.9 K/cumm Hgb 11.5 (L) 11.9 - 15.5 g/dL Hct 37.5 35.6 - 45.5 % Plt 416 (H) 150 - 400 K/cumm MPV 9.6 9.1 - 12.3 fL RBC 5.05 3.90 - 5.20 M/cumm MCV 74.3 (L) 81.3 - 96.4 fL MCH 22.8 (L) 27.1 - 33.3 pg MCHC 30.7 (L) 32.3 - 35.7 g/dL RDW CV 17.2 (H) 11.1 - 14.9 % RDW SD 44.9 35.7 - 48.1 fL NRBC abs 0.00 0.00 - 0.01 K/cumm Comprehensive metabolic panel Collection Time: 12/31/20 12:07 PM Result Value Ref Range Sodium 140 135 - 145 mmol/L Potassium, pl 4.0 3.3 - 4.9 mmol/L Chloride 108 97 - 110 mmol/L CO2 19 (L) 22 - 32 mmol/L Anion gap 13 2 - 15 mmol/L BUN 12 8 - 25 mg/dL Creatinine 0.60 0.60 - 1.10 mg/dL Glucose 180 70 - 199 mg/dL Calcium 9.1 8.5 - 10.3 mg/dL Bilirubin, total <0.2 0.1 - 1.2 mg/dL Protein, pl 7.1 6.5 - 8.5 g/dL Albumin 4.5 3.5 - 5.0 g/dL Alk phos 92 40 - 130 Units/L ALT 8 7 - 45 Units/L AST 9 (L) 10 - 45 Units/L Differential, auto Collection Time: 12/31/20 12:07 PM Result Value Ref Range Neutrophil abs 23.7 (H) 1.7 - 6.5 K/cumm Imm gran abs 0.1 0.0 - 0.1 K/cumm Lymphocyte abs 0.5 (L) 0.8 - 3.3 K/cumm Monocyte abs 0.3 0.2 - 0.8 K/cumm Eosinophil abs 0.0 0.0 - 0.5 K/cumm Basophil abs 0.0 0.0 - 0.1 K/cumm Neutrophil pct 96.2 % Imm gran pct 0.5 % Lymphocyte pct 2.0 % Monocyte pct 1.2 % Eosinophil pct 0.0 % Basophil pct 0.1 % eGFR Collection Time: 12/31/20 12:07 PM Result Value Ref Range eGFR 114 mL/min/1.73 m2 CBC with auto differential Collection Time: 01/01/21 3:42 AM Result Value Ref Range WBC 26.5 (H) 3.8 - 9.9 K/cumm Hgb 10.4 (L) 11.9 - 15.5 g/dL Hct 34.0 (L) 35.6 - 45.5 % Plt 382 150 - 400 K/cumm MPV 9.6 9.1 - 12.3 fL RBC 4.76 3.90 - 5.20 M/cumm MCV 71.4 (L) 81.3 - 96.4 fL MCH 21.8 (L) 27.1 - 33.3 pg MCHC 30.6 (L) 32.3 - 35.7 g/dL RDW CV 17.3 (H) 11.1 - 14.9 % RDW SD 43.7 35.7 - 48.1 fL NRBC abs 0.00 0.00 - 0.01 K/cumm Basic metabolic panel Collection Time: 01/01/21 3:42 AM Result Value Ref Range Sodium 142 135 - 145 mmol/L Potassium, pl 3.5 3.3 - 4.9 mmol/L Chloride 111 (H) 97 - 110 mmol/L CO2 21 (L) 22 - 32 mmol/L Anion gap 10 2 - 15 mmol/L BUN 17 8 - 25 mg/dL Creatinine 0.50 (L) 0.60 - 1.10 mg/dL Glucose 154 70 - 199 mg/dL Calcium 9.2 8.5 - 10.3 mg/dL Differential, auto Collection Time: 01/01/21 3:42 AM Result Value Ref Range Neutrophil abs 23.5 (H) 1.7 - 6.5 K/cumm Imm gran abs 0.2 (H) 0.0 - 0.1 K/cumm Lymphocyte abs 1.0 0.8 - 3.3 K/cumm Monocyte abs 1.7 (H) 0.2 - 0.8 K/cumm Eosinophil abs 0.0 0.0 - 0.5 K/cumm Basophil abs 0.0 0.0 - 0.1 K/cumm Neutrophil pct 88.8 % Imm gran pct 0.8 % Lymphocyte pct 3.9 % Monocyte pct 6.3 % Eosinophil pct 0.0 % Basophil pct 0.2 % eGFR Collection Time: 01/01/21 3:42 AM Result Value Ref Range eGFR 121 mL/min/1.73 m2 Current Facility-Administered Medications Medication Dose Route Frequency Provider Last Rate Last Admin ??? acetaminophen (TYLENOL) tablet 650 mg 650 mg oral Q4H PRN Parmjit Powell MD ??? albuterol HFA (PROVENTIL HFA,VENTOLIN HFA,PROAIR HFA) 90 mcg/actuation inhaler 2 puff 2 puff inhalation Q6H PRN (RT) Parmjit Powell MD ??? budesonide-formoteroL (SYMBICORT) 160-4.5 mcg/actuation inhaler 2 puff 2 puff inhalation BID (RT) Parmjit Powell MD 2 puff at 12/31/202150 ??? cefTRIAXone (ROCEPHIN) 1,000 mg/10 mL in sterile water (premix) 1,000 mg 1,000 mg intravenous Q24H [facility] Parmjit Powell MD 1,000 mg at 01/01/21 0856 ??? enoxaparin (LOVENOX) syringe 40 mg 40 mg subcutaneous Daily-2100 Parmjit Powell MD 40 mg at 12/31/202056 ??? escitalopram (LEXAPRO) tablet 20 mg 20 mg oral Daily Parmjit Powell MD 20 mg at 01/01/21 0849 ??? hydrOXYzine (ATARAX) tablet 25 mg 25 mg oral BID PRN Parmjit Powell MD ??? labetaloL (NORMODYNE,TRANDATE) injection 20 mg 20 mg intravenous Q6H PRN Parmjit Ruiz MD ??? lacosamide (VIMPAT) 100 mg in sodium chloride 0.9% 50 mL IVPB 100 mg intravenous Q12H [facility] Roberto Angel MD 120 mL/hr at 01/01/21 1031 100 mg at 01/01/21 1031 ??? levETIRAcetam (KEPPRA) 1,000 mg/100 mL in sodium chloride (premix) 1,000 mg 1,000 mg intravenous Q12H [facility] Parmjit Powell MD 1,000 mg at 01/01/21 0857 ??? LORazepam (ATIVAN) injection 1 mg 1 mg intravenous Q6H PRN Parmjit Powell MD ??? ondansetron (ZOFRAN) injection 4 mg 4 mg intravenous Q6H PRN Parmjit Powell MD ??? oxyCODONE-acetaminophen (PERCOCET) 5-325 mg per tablet 1 tablet 1 tablet oral Q4H PRN Parmjit Powell MD ??? zonisamide (ZONEGRAN) capsule 500 mg 500 mg oral Nightly Parmjit Powell MD 500 mg at 12/31/202055 A/P: Principal Problem: Seizure (CMS/HCC) (HCC) Active Problems: Epilepsy (HCC) Multiple sclerosis (CMS/HCC) (HCC) Migraine Seizures (CMS/HCC) (HCC) Resolved Problems: No resolved hospital problems. Dysarthria Worsening MS? Verses CVA? Verses postictal state? Verses metabolic encephalopathy related to a UTI MRI to be ordered, supportive management, neurology consulted If MRI positive for acute flare will start the patient on high-dose steroids Loaded with Keppra from the ER, given ativan also, will continue b.i.d. Keppra, patient states issues in time the desonide and a will hold until evaluated by Neurology for chronic management UA negative for stimulants, only positive for cannabis NPO for the time being, nursing bedside evaluation tomorrow, hopefully just postictal 12/30 No evidence of dysarthria at this point Will still get MRI of the brain Neurology consult 12/31 MRI show evidence of active MS flare. Neurology recommended IV steroids Neurology consult appreciated 01/01 MRI show evidence of active MS flare. Continue IV steroids Neurology consult appreciated ?? Generalized tonic-clonic seizure Patient has a background of seizure disorder on zonisamide 500 mg daily, was given Ativan being loaded with Keppra, further adjustment on chronic medications per Neurology tomorrow ??12/30 No evidence of dysarthria at this point Will still get MRI of the brain Neurology consult Possible EEG 12/31 MRI show evidence of active MS flare. Neurology recommended IV steroids Neurology consult appreciated EEG today 01/01 MRI show evidence of active MS flare. Neurology recommended IV steroids Neurology consult appreciated EEG showed frequent epileptiform discharges that appear to be focused over the left fronto-temporalregion. Vimpat was added Continue Zonisamide Multiple sclerosis MRI done on November 09, 2020 showed the patient have stable extensive white matter disease within the supratentorial brain related to MS also stable cervical lesions On ocrelizumab to be continued if present on formulary if not they can bring it of a non formulary,reviewed package insert no causation of seizure disorder 12/30 Neurology consult MRI of the brain 12/31 MRI show evidence of active MS flare. Neurology recommended IV steroids Neurology consult appreciated Continue steroid ?? Mood disorder unspecified holding the patient's monthly injection of Abilify , continuing escitalopram ?? Migraine disorder has had home p.r.n. Triptan, ibuprofen, Fioricet, will hold for now Leukocytosis suspect stress-induced, repeat CBC in the a.m. ?? Abnormal UA ceftriaxone started, will continue pending cultures ?? DVT prophylaxis: Lovenox PT/OT: As tolerate Case discussed with Case Management and Carroting Machine Operator Medical complexity/risk:Moderate Voice recognition software [employer] Fluency Direct may have been used dictate and transcribe this document. Inspector Of Weights And Measures variances may occur. Despite proofreading, typographical errors may occur. Spencer Rodas MD 01/01/2021 11:44 AM * Roberto Angel MD - 12/31/2020 2:58 PM CDT Images from the original note were not included. [facility] Neurology Progress Note Subjective: Patient feeling about the same today. Still having speech difficulty. Is less insistent about beingdischarged today. Mother/guardian present at bedside. Current Facility-Administered Medications: ??? acetaminophen (TYLENOL) tablet 650 mg, 650 mg, oral, Q4H PRN, Parmjit Powell MD ??? albuterol HFA (PROVENTIL HFA,VENTOLIN HFA,PROAIR HFA) 90 mcg/actuation inhaler 2 puff, 2 puff, inhalation, Q6H PRN (RT), Parmjit Powell MD ??? budesonide-formoteroL (SYMBICORT) 160-4.5 mcg/actuation inhaler 2 puff, 2 puff, inhalation, BID(RT), Parmjit Powell MD, 2 puff at 12/30/20 0872 ??? cefTRIAXone (ROCEPHIN) 1,000 mg/10 mL in sterile water (premix) 1,000 mg, 1,000 mg, intravenous, Q24H [facility], Parmjit Powell MD, 1,000 mg at 12/31/20 0943 ??? enoxaparin (LOVENOX) syringe 40 mg, 40 mg, subcutaneous, Daily-2100, Parmjit Ruiz MD, 40mg at 12/30/20 2030 ??? escitalopram (LEXAPRO) tablet 20 mg, 20 mg, oral, Daily, Parmjit Powell MD, 20 mg at 12/31/20 0941 ??? hydrOXYzine (ATARAX) tablet 25 mg, 25 mg, oral, BID PRN, Parmjit Powell MD ??? labetaloL (NORMODYNE,TRANDATE) injection 20 mg, 20 mg, intravenous, Q6H PRN, Parmjit Powell MD ??? lacosamide (VIMPAT) 100 mg in sodium chloride 0.9% 50 mL IVPB, 100 mg, intravenous, Once, Roberto Angel MD ??? lacosamide (VIMPAT) 100 mg in sodium chloride 0.9% 50 mL IVPB, 100 mg, intravenous, Q12H [facility], Roberto Angel MD ??? levETIRAcetam (KEPPRA) 1,000 mg/100 mL in sodium chloride (premix) 1,000 mg, 1,000 mg, intravenous, Q12H [facility], Parmjit Powell MD, 1,000 mg at 12/31/20 1027 ??? LORazepam (ATIVAN) injection 1 mg, 1 mg, intravenous, Q6H PRN, Parmjit Powell MD ??? methylPREDNISolone sodium succinate (SOLU-medrol) 1,000 mg in sodium chloride 0.9% 100 mL IVPB,1,000 mg, intravenous, Q24H [facility], Roberto Angel MD, Last Rate: 232 mL/hr at 12/31/20 0943, 1,000 mg at 12/31/20 0943 ??? ondansetron (ZOFRAN) injection 4 mg, 4 mg, intravenous, Q6H PRN, Parmjit Powell MD ??? oxyCODONE-acetaminophen (PERCOCET) 5-325 mg per tablet 1 tablet, 1 tablet, oral, Q4H PRN, Parmjit Powell MD ??? zonisamide (ZONEGRAN) capsule 500 mg, 500 mg, oral, Nightly, Parmjit Powell MD, 500 mg at 12/30/20 2030 Vitals: 24hr Min/Max: Temp Min: 36.7 ??C (98.1 ??F) Max: 37.2 ??C (99 ??F) Pulse Min: 81 Max: 87 BP Min: 103/57 Max: 103/57 Resp Min: 16 Max: 18 SpO2 Min: 98 % Max: 99 % Most Recent : Vitals: 12/31/20 0745 BP: Pulse: 82 Resp: 18 Temp: 36.7 ??C (98.1 ??F) SpO2: 98% No intake/output data recorded. No intake/output data recorded. Physical Exam: GEN: NAD, pleasant, cooperative CVS: RRR, CHEST: No signs of distress, on room air ABD: Soft, NTTP NEURO: MENTAL STATUS: Alert oriented x2, LANG/SPEECH: Decreased fluency, occasional word substitution. Impaired comprehension CRANIAL NERVES: II: Pupils equal and reactive, no RAPD, normal visual huber III, IV, : EOM intact, no gaze preference or deviation V: normal facial sensation VII:no facial asymmetry VIII: normal hearing to speech IX-X: GAG present, can swallow XI: shoulders and neck movement intact XII: tongue intact MOTOR: 5/5 in both upper and lower extremities REFLEXES: 2/4 throughout, bilateral flexor planters SENSORY: Normal to touch all extremities COORD: Normal finger to nose no dysmetria Assessment/plan 40-year-old female with a history of multiple sclerosis and seizures. Admitting following breakthrough seizures. Despite resuming her home meds and over 36 hours passing since the seizures, she remains significantly altered. Primarily her speech is affected. Patient's mom and guardian is at the bedside and also notices that the patient is not back to her baseline. In addition, she provided more history, and relayed that the patient has 2 neurologists she has seen in the recent past. She sees an MS specialist and an epileptologist, both are at [facility]. I was able to find the MS specialists office notes, but none of the seizure clinics info. It does appear she wason Lamictal at some point prior to the zonisamide, but otherwise no further medication history was available regarding her antiepileptics. Obtained EEG, which I reviewed and which shows frequent epileptiform discharges that appear to be focused over the left fronto-temporal region. This is followed by periods of slowing that are focal to this region. While there were no overt seizures, these findings suggest continued focal dysfunction of this area, and increased likelihood of additional seizures. Will start on Vimpat in order to target focal onset. Will continue home zonisamide. This note is transcribed using MModal, despite my best efforts, security sales manager errors can occur. Please do not hesitate to contact me personally if you have any questions. * Kiko Jade - 12/31/2020 11:36 AM CDT Pt appreciated the visit but she did not indicate a desire for spiritual support. 12/31/20 1100 Time Spent Start Time 1136 Patient Spiritual Assessment Spirituality Assessed Yes Taoist Affiliation None Active in Yazidism No Clinical Encounter Type Visited With Patient Response Type Routine visit * Spencer Richardson MD - 12/31/2020 10:00 AM CDT Images from the original note were not included. General Medicine Daily Progress SUBJECTIVE Patient is AO x2 denies acute complaint Interval History: The patient is a 48-year-old female with past medical history of multiple or sclerosis, migraine, epilepsy was admitted the hospital secondary to Seizure. CT head was done that showed no acute intracranial findings. Patient was presented with an elevated WBC count which at this point I believe is secondary to the seizure. UA was positive for UTI urine toxicology was positive forcannabinoids. Patient was started on ceftriaxone. MRI of the brain was done it reported marked supratentorial and infratentorial white matter disease consistent with history of multiple or sclerosis,anterior left med related demyelinating lesion corresponding with active disease. After assessing the patient neurology recommended the patient to be started on high-dose steroids for MS flare, according to Neurology there is of the surgeon was likely secondary to the UTI and they are performing EEG today Upon admission patient was found to be dysarthric which is resolved at this point I believe it was secondary to the post ictal period. OBJECTIVE Vitals: 24hr Min/Max: Temp Min: 36.7 ??C (98.1 ??F) Max: 37.2 ??C (99 ??F) Pulse Min: 81 Max: 94 BP Min: 103/57 Max: 105/64 Resp Min: 16 Max: 18 SpO2 Min: 98 % Max: 100 % Most Recent : Vitals: 12/31/20 0745 BP: Pulse: 82 Resp: 18 Temp: 36.7 ??C (98.1 ??F) SpO2: 98% No intake/output data recorded. No intake/output data recorded. Physical Exam: Eyes: EOMI, DEBBIE, sclare non icteric Neck: supple, no nuchal ridigity, no gross carotid bruits appreciated Pharynx: No gross oral lesion, tongue midline, mucosa moist Lungs CTA Heart: [id number], no significant murmur or gallop Abd: +BS, Non Tender, Non distended, No gross hepatomegaly Lower Ext: No gross edema, pedal artery pulses are palpable bilaterally Neuro: AOx2 decrease muscle strength on the right leg Musculoskeletal: no gross joint erythema, edema, tenderness Skin: No new change Lab/Current Medication Review: No results found for this or any previous visit (from the past 24 hour(s)). Current Facility-Administered Medications Medication Dose Route Frequency Provider Last Rate Last Admin ??? acetaminophen (TYLENOL) tablet 650 mg 650 mg oral Q4H PRN Parmjit Powell MD ??? albuterol HFA (PROVENTIL HFA,VENTOLIN HFA,PROAIR HFA) 90 mcg/actuation inhaler 2 puff 2 puff inhalation Q6H PRN (RT) Parmjit Powell MD ??? budesonide-formoteroL (SYMBICORT) 160-4.5 mcg/actuation inhaler 2 puff 2 puff inhalation BID (RT) Parmjit Powell MD 2 puff at 12/30/20 0250 ??? cefTRIAXone (ROCEPHIN) 1,000 mg/10 mL in sterile water (premix) 1,000 mg 1,000 mg intravenous Q24H [facility] Parmjit Powell MD 1,000 mg at 12/31/20 0943 ??? enoxaparin (LOVENOX) syringe 40 mg 40 mg subcutaneous Daily-2100 Parmjit Powell MD 40 mg at 12/30/20 2030 ??? escitalopram (LEXAPRO) tablet 20 mg 20 mg oral Daily Parmjit Powell MD 20 mg at 12/31/20 0941 ??? hydrOXYzine (ATARAX) tablet 25 mg 25 mg oral BID PRN Parmjit Powell MD ??? labetaloL (NORMODYNE,TRANDATE) injection 20 mg 20 mg intravenous Q6H PRN Parmjit Powell MD ??? levETIRAcetam (KEPPRA) 1,000 mg/100 mL in sodium chloride (premix) 1,000 mg 1,000 mg intravenous Q12H [facility] Parmjit Powell MD 1,000 mg at 12/30/202043 ??? LORazepam (ATIVAN) injection 1 mg 1 mg intravenous Q6H PRN Parmjit Powell MD ??? LORazepam (ATIVAN) injection 1 mg 1 mg intravenous Once Roberto Angel MD ??? methylPREDNISolone sodium succinate (SOLU-medrol) 1,000 mg in sodium chloride 0.9% 100 mL IVPB 1,000 mg intravenous Q24H [facility] Roberto Angel MD 232 mL/hr at 12/31/2043 1,000 mg at 12/31/20 0943 ??? ondansetron (ZOFRAN) injection 4 mg 4 mg intravenous Q6H PRN Parmjit Powell MD ??? oxyCODONE-acetaminophen (PERCOCET) 5-325 mg per tablet 1 tablet 1 tablet oral Q4H PRN Parmjit Powell MD ??? zonisamide (ZONEGRAN) capsule 500 mg 500 mg oral Nightly Parmjit Powell MD 500 mg at 12/30/202029 A/P: Principal Problem: Seizure (CMS/HCC) (HCC) Active Problems: Epilepsy (HCC) Multiple sclerosis (CMS/HCC) (HCC) Migraine Seizures (CMS/HCC) (HCC) Resolved Problems: No resolved hospital problems. Dysarthria Worsening MS? Verses CVA? Verses postictal state? Verses metabolic encephalopathy related to a UTI MRI to be ordered, supportive management, neurology consulted If MRI positive for acute flare will start the patient on high-dose steroids Loaded with Keppra from the ER, given ativan also, will continue b.i.d. Keppra, patient states issues in time the desonide and a will hold until evaluated by Neurology for chronic management UA negative for stimulants, only positive for cannabis NPO for the time being, nursing bedside evaluation tomorrow, hopefully just postictal 12/30 No evidence of dysarthria at this point Will still get MRI of the brain Neurology consult 12/31 MRI show evidence of active MS flare. Neurology recommended IV steroids Neurology consult appreciated ?? Generalized tonic-clonic seizure Patient has a background of seizure disorder on zonisamide 500 mg daily, was given Ativan being loaded with Keppra, further adjustment on chronic medications per Neurology tomorrow ??12/30 No evidence of dysarthria at this point Will still get MRI of the brain Neurology consult Possible EEG 12/31 MRI show evidence of active MS flare. Neurology recommended IV steroids Neurology consult appreciated EEG today Multiple sclerosis MRI done on November 09, 2020 showed the patient have stable extensive white matter disease within the supratentorial brain related to MS also stable cervical lesions On ocrelizumab to be continued if present on formulary if not they can bring it of a non formulary,reviewed package insert no causation of seizure disorder 12/30 Neurology consult MRI of the brain 12/31 MRI show evidence of active MS flare. Neurology recommended IV steroids Neurology consult appreciated Continue steroid ?? Mood disorder unspecified holding the patient's monthly injection of Abilify , continuing escitalopram ?? Migraine disorder has had home p.r.n. Triptan, ibuprofen, Fioricet, will hold for now Leukocytosis suspect stress-induced, repeat CBC in the a.m. ?? Abnormal UA ceftriaxone started, will continue pending cultures ?? DVT prophylaxis: Lovenox PT/OT: As tolerate Case discussed with Case Management and Carroting Machine Operator Medical complexity/risk:Moderate Voice recognition software MModal Fluency Direct may have been used dictate and transcribe this document. Inspector Of Weights And Measures variances may occur. Despite proofreading, typographical errors may occur. Spencer Rodas MD 12/31/2020 10:00 AM * Spencer Richardson MD - 12/30/2020 10:17 AM CDT Images from the original note were not included. General Medicine Daily Progress SUBJECTIVE Patient is AO x2 denies acute complaint Interval History: The patient is a 48-year-old female with past medical history of multiple or sclerosis, migraine, epilepsy was admitted the hospital secondary to Seizure. CT head was done that showed no acute intracranial findings. Patient was presented with an elevated WBC count which at this point I believe is secondary to the seizure. UA was positive for UTI urine toxicology was positive forcannabinoids. Patient was started on ceftriaxone. MRI of the brain is requesting and Neurology consult. Upon admission patient was found to be dysarthric which is resolved at this point I believe it was secondary to the post ictal period. OBJECTIVE Vitals: 24hr Min/Max: Temp Min: 36.6 ??C (97.8 ??F) Max: 36.9 ??C (98.4 ??F) Pulse Min: 62 Max: 117 BP Min: 97/57 Max: 140/71 Resp Min: 17 Max: 22 SpO2 Min: 94 % Max: 100 % Most Recent : Vitals: 12/30/20 0802 BP: 107/63 Pulse: 94 Resp: 18 Temp: 36.9 ??C (98.4 ??F) SpO2: 98% I/O last 2 completed shifts: In: 1100 [IV Piggyback:1100] Out: - No intake/output data recorded. Physical Exam: Eyes: EOMI, DEBBIE, sclare non icteric Neck: supple, no nuchal ridigity, no gross carotid bruits appreciated Pharynx: No gross oral lesion, tongue midline, mucosa moist Lungs CTA Heart: [id number], no significant murmur or gallop Abd: +BS, Non Tender, Non distended, No gross hepatomegaly Lower Ext: No gross edema, pedal artery pulses are palpable bilaterally Neuro: AOx2 decrease muscle strength on the right leg Musculoskeletal: no gross joint erythema, edema, tenderness Skin: No new change Lab/Current Medication Review: Recent Results (from the past 24 hour(s)) POCT glucose Collection Time: 12/29/20 2:18 PM Result Value Ref Range Glucose, POC 142 70 - 199 mg/dL Glucose comment 1 Use This Result CBC with auto differential Collection Time: 12/29/20 2:28 PM Result Value Ref Range WBC 22.2 (H) 3.8 - 9.9 K/cumm Hgb 12.0 11.9 - 15.5 g/dL Hct 41.3 35.6 - 45.5 % Plt 524 (H) 150 - 400 K/cumm MPV 9.4 9.1 - 12.3 fL RBC 5.43 (H) 3.90 - 5.20 M/cumm MCV 76.1 (L) 81.3 - 96.4 fL MCH 22.1 (L) 27.1 - 33.3 pg MCHC 29.1 (L) 32.3 - 35.7 g/dL RDW CV 17.5 (H) 11.1 - 14.9 % RDW SD 46.5 35.7 - 48.1 fL NRBC abs 0.00 0.00 - 0.01 K/cumm Comprehensive metabolic panel Collection Time: 12/29/20 2:28 PM Result Value Ref Range Sodium 138 135 - 145 mmol/L Potassium, pl 4.3 3.3 - 4.9 mmol/L Chloride 103 97 - 110 mmol/L CO2 12 (L) 22 - 32 mmol/L Anion gap 23 (H) 2 - 15 mmol/L BUN 17 8 - 25 mg/dL Creatinine 0.80 0.60 - 1.10 mg/dL Glucose 119 70 - 199 mg/dL Calcium 9.8 8.5 - 10.3 mg/dL Bilirubin, total <0.2 0.1 - 1.2 mg/dL Protein, pl 7.8 6.5 - 8.5 g/dL Albumin 4.6 3.5 - 5.0 g/dL Alk phos 94 40 - 130 Units/L ALT 11 7 - 45 Units/L AST 14 10 - 45 Units/L hCG, blood, quantitative Collection Time: 12/29/20 2:28 PM Result Value Ref Range hCG, quant <0.1 0.0 - 5.0 IUnits/L Protime-INR Collection Time: 12/29/20 2:28 PM Result Value Ref Range PT 12.8 12.0 - 14.6 sec INR 1.0 Differential, auto Collection Time: 12/29/20 2:28 PM Result Value Ref Range Neutrophil abs 16.5 (H) 1.7 - 6.5 K/cumm Imm gran abs 0.2 (H) 0.0 - 0.1 K/cumm Lymphocyte abs 3.2 0.8 - 3.3 K/cumm Monocyte abs 1.7 (H) 0.2 - 0.8 K/cumm Eosinophil abs 0.5 0.0 - 0.5 K/cumm Basophil abs 0.2 (H) 0.0 - 0.1 K/cumm Neutrophil pct 74.1 % Imm gran pct 0.8 % Lymphocyte pct 14.3 % Monocyte pct 7.7 % Eosinophil pct 2.4 % Basophil pct 0.7 % eGFR Collection Time: 12/29/20 2:28 PM Result Value Ref Range eGFR 92 mL/min/1.73 m2 Urinalysis reflex to microscopic and culture Urine Collection Time: 12/29/20 2:52 PM Specimen: Urine Result Value Ref Range Color, ur Yellow Yellow Clarity, ur Cloudy (A) Clear Specific gravity, ur 1.018 1.003 - 1.030 pH, urine 5.0 Protein, ur ql 1+ (A) Negative Glucose, ur ql Negative Negative Ketones, ur Negative Negative Bilirubin, ur Negative Negative Blood, ur Negative Negative Urobilinogen, ur <2.0 <2.0 mg/dL Nitrite, ur Negative Negative Leukocyte esterase, ur 3+ (A) Negative UA reflex comment Reflex to microscopic UA will be performed. Drugs of Abuse Screen, Urine without Confirmation Collection Time: 12/29/20 2:52 PM Result Value Ref Range Amphetamine, ur Not Detected CutOff 500ng/mL Barbiturates, ur Not Detected CutOff 200ng/mL Benzodiazepines, ur Not Detected CutOff 100ng/mL Cannabinoids, ur Detected (A) CutOff 50 ng/mL Cocaine, ur Not Detected CutOff 150ng/mL Fentanyl, Ur Not Detected Cutoff 1 ng/mL Methadone, ur Not Detected CutOff 300ng/mL Opiates, ur Not Detected CutOff 300ng/mL Oxycodone, ur Not Detected CutOff 100ng/mL Phencyclidine, ur Not Detected CutOff 25 ng/mL Urine Creatinine 102 mg/dL Urinalysis, microscopic only Collection Time: 12/29/20 2:52 PM Result Value Ref Range WBC, ur 21-50 (A) 0 - 5 /HPF RBC, ur 6-10 (A) 0 - 2 /HPF Epithelial cells, squamous, ur 1-5 0 - 5 /HPF Bacteria, ur Trace (A) Mucous, ur Present (A) Hyaline casts, ur 6-10 0 - 10 /LPF Granular casts, ur 6-10 (A) 0 - 0 /LPF Culture Reflex Comment Reflex to urine culture will be performed. ECG 12 lead Collection Time: 12/29/20 2:57 PM Result Value Ref Range Ventricular Rate EKG/Min 102 BPM Atrial Rate 102 BPM TN-Interval (MSEC) 144 ms QRS-Interval (MSEC) 80 ms QT-Interval (MSEC) 350 ms QTc 456 ms P [place] 60 degrees R [place] 78 degrees T [place] 66 degrees Diagnosis Sinus tachycardia Otherwise normal ECG No previous ECGs available Influenza A/B, RSV, and COVID-19 PCR Nasopharyngeal Collection Time: 12/29/20 6:45 PM Specimen: Nasopharyngeal Result Value Ref Range COVID-19 RNA Negative Negative Influenza A RNA Negative Negative Influenza B RNA Negative Negative RSV RNA Negative Negative Current Facility-Administered Medications Medication Dose Route Frequency Provider Last Rate Last Admin ??? acetaminophen (TYLENOL) tablet 650 mg 650 mg oral Q4H PRN Parmjit Powell MD ??? albuterol HFA (PROVENTIL HFA,VENTOLIN HFA,PROAIR HFA) 90 mcg/actuation inhaler 2 puff 2 puff inhalation Q6H PRN (RT) Parmjit Powell MD ??? budesonide-formoteroL (SYMBICORT) 160-4.5 mcg/actuation inhaler 2 puff 2 puff inhalation BID (RT) Parmjit Powell MD 2 puff at 12/30/20 0802 ??? cefTRIAXone (ROCEPHIN) 1,000 mg/10 mL in sterile water (premix) 1,000 mg 1,000 mg intravenous Q24H [facility] Parmjit Powell MD 1,000 mg at 12/30/20 0810 ??? enoxaparin (LOVENOX) syringe 40 mg 40 mg subcutaneous Daily-2100 Parmjit Powell MD 40 mg at 12/29/20 220 ??? escitalopram (LEXAPRO) tablet 20 mg 20 mg oral Daily Parmjit Powell MD 20 mg at 12/30/20 0809 ??? hydrOXYzine (ATARAX) tablet 25 mg 25 mg oral BID PRN Parmjit Powell MD ??? labetaloL (NORMODYNE,TRANDATE) injection 20 mg 20 mg intravenous Q6H PRN Parmjit Ruiz MD ??? levETIRAcetam (KEPPRA) 1,000 mg/100 mL in sodium chloride (premix) 1,000 mg 1,000 mg intravenous Q12H [facility] Parmjit Powell MD 1,000 mg at 12/30/20 0809 ??? LORazepam (ATIVAN) injection 1 mg 1 mg intravenous Q6H PRN Parmjit Powell MD ??? ondansetron (ZOFRAN) injection 4 mg 4 mg intravenous Q6H PRN Parmjit Powell MD ??? oxyCODONE-acetaminophen (PERCOCET) 5-325 mg per tablet 1 tablet 1 tablet oral Q4H PRN Parmjit Powell MD ??? zonisamide (ZONEGRAN) capsule 500 mg 500 mg oral Nightly Parmjit Powell MD 500 mg at 12/29/20 220 A/P: Principal Problem: Seizure (CMS/HCC) (HCC) Active Problems: Epilepsy (HCC) Multiple sclerosis (CMS/HCC) (HCC) Migraine Resolved Problems: No resolved hospital problems. Dysarthria Worsening MS? Verses CVA? Verses postictal state? Verses metabolic encephalopathy related to a UTI MRI to be ordered, supportive management, neurology consulted If MRI positive for acute flare will start the patient on high-dose steroids Loaded with Keppra from the ER, given ativan also, will continue b.i.d. Keppra, patient states issues in time the desonide and a will hold until evaluated by Neurology for chronic management UA negative for stimulants, only positive for cannabis NPO for the time being, nursing bedside evaluation tomorrow, hopefully just postictal 12/30 No evidence of dysarthria at this point Will still get MRI of the brain Neurology consult ?? Generalized tonic-clonic seizure Patient has a background of seizure disorder on zonisamide 500 mg daily, was given Ativan being loaded with Keppra, further adjustment on chronic medications per Neurology tomorrow ??12/30 No evidence of dysarthria at this point Will still get MRI of the brain Neurology consult Possible EEG Multiple sclerosis MRI done on November 09, 2020 showed the patient have stable extensive white matter disease within the supratentorial brain related to MS also stable cervical lesions On ocrelizumab to be continued if present on formulary if not they can bring it of a non formulary,reviewed package insert no causation of seizure disorder 12/30 Neurology consult MRI of the brain ?? Mood disorder unspecified holding the patient's monthly injection of Abilify , continuing escitalopram ?? Migraine disorder has had home p.r.n. Triptan, ibuprofen, Fioricet, will hold for now Leukocytosis suspect stress-induced, repeat CBC in the a.m. ?? Abnormal UA ceftriaxone started, will continue pending cultures ?? DVT prophylaxis: Lovenox PT/OT: As tolerate Case discussed with Case Management and Carroting Machine Operator Medical complexity/risk:Moderate Voice recognition software MModal Fluency Direct may have been used dictate and transcribe this document. Inspector Of Weights And Measures variances may occur. Despite proofreading, typographical errors may occur. Spencer Rodas MD 12/30/2020 10:17 AM * Gabriel Barton, [facility] - 12/29/2020 8:27 PM CDT Pharmacy Medication Reconciliation Note @RENNY@ Meredith Guillory Santosh is a 40 y.o. female who presents to [facility] ED[facility] for admission. This patient???s prior to admission home medication list was also reviewed by pharmacy. Home Medications ALBUTEROL HFA (PROVENTIL HFA,VENTOLIN HFA,PROAIR HFA) 90 MCG/ACTUATION INHALER Inhale 2 puffs every6 (six) hours as needed ARIPIPRAZOLE (ARIPIPRAZOLE) 300 MG IM INJECTION Inject 300 mg into the muscle as instructed every 30 (thirty) days Last admin: [id number] (ESGIC) 50-325-40 MG PER TABLET Take 1 tablet by mouth every 4 (four) hours as needed ESCITALOPRAM (LEXAPRO) 20 MG TABLET Take 20 mg by mouth daily FLUTICASONE PROPIONATE (FLONASE) 50 MCG/ACTUATION NASAL SPRAY Administer 1 spray into each nostril daily as needed HYDROXYZINE (ATARAX) 25 MG TABLET Take 25 mg by mouth 2 (two) times a day as needed for anxiety IBUPROFEN (ADVIL,MOTRIN) 800 MG TABLET Take 1 tablet by mouth 2 (two) times a day as needed OCRELIZUMAB (OCREVUS) 30 MG/ML SOLUTION Infuse 600 mg into a venous catheter every 6 (six) months Last admin: ONABOTULINUMTOXIN A (BOTOX) 100 UNIT RECON SOLN Inject 200 Units into the muscle as instructed every 3 (three) months Last admin: SYMBICORT 160-4.5 MCG/ACTUATION INHALER Inhale 2 puffs 2 (two) times a day ZONISAMIDE (ZONEGRAN) 100 MG CAPSULE Take 500 mg by mouth nightly The patient???s home medication list has been reconciled and updated as follows: - Orders that were added: All meds - Additional comments/recommendations: Patient arrived in ER actively seizing in which 4mg IV Valium given and then 2 gram dose of IV Keppra. Patient is no longer actively seizing but is not communicating and quietly resting in bed. Medications were added to home med list entirely from med records from outside facilities and most recentelectronic fill history. Sources of information for this medication reconciliation: outpatient medical record, pharmacy records, and prescription fill history Gabriel Barton RPh documented in this encounter H&P Notes * Parmjit Powell MD - 12/29/2020 8:02 PM CDT Images from the original note were not included. [facility] Hospitalist Group History & Physical Patient Name: Meredith Frost Courtesy Copy to Primary Care Doctor: No, Physician? Date of Admission: 12/29/2020 2:32 PM Date of Service: 12/29/2020? Chart reviewed, consults, progress notes, labs and x-rays reviewed Chief Complaint: Chief Complaint Patient presents with ??? Seizures HPI:? Meredith Frost is a 40 y.o. female who presents with CT seizure activity.? Patient hasa history of MS, migraine disorder and epilepsy. Patient currently dysarthric/mumbles when talking sentences, is able to formulate small words, answers questions appropriately in response to commandsappropriately, no number for boyfriend on the chart, per report given to me by our colleague in theER she had a seizure when coming in and multiple prior, per him the boyfriend confirms that she is compliant with her medications. Being admitted for observation and medication adjustment. Patient denies any symptoms on review of systems. Full code per questioning the patient. Review of Systems: History from The patient General negative ENT negative Heme/Lymph negative Endocrine negative CV no chest pain or dyspnea on exertion Respiratory no cough, shortness of breath, or wheezing GI no abdominal pain, change in bowel habits, or black or bloody stools no dysuria, trouble voiding, or hematuria MS negative Neuro positive for - seizures Derm negative All Other ROS Negative Past Medical History: Migraine disorder, seizure disorder, MS Past Surgical History: None per patient Medication Allergies: No Known Allergies Family History: Father with CAD Social History:? reports current drug use. Frequency: 7.00 times per week. Drug: Marijuana. nonsmoker, drinks socially once or twice a month, marijuana usage Physical Exam Vitals: 12/29/20 1841 12/29/20 1945 12/29/20 2142 BP: 97/56 100/60 108/63 Pulse: 78 97 62 Resp: 18 17 18 Temp: 36.6 ??C (97.8 ??F) 36.7 ??C (98.1 ??F) SpO2: 100% 100% 97% Weight: 63.5 kg (139 lb 14.4 oz), Body mass index is 23.28 kg/m??. General appearance Alert & cannot assess orientation to person, place & time due to dysarthria, cooperative, no distress Feels lethargic Head Normocephalic, without obvious abnormality, atraumatic Eyes Conjunctivae/corneas clear. PERRL, EOM's intact. Ears Normal TM's and external ear canals Nose Nares normal. Mucosa normal. No drainage or sinus tenderness. Throat Lips, mucosa, and tongue normal. Teeth and gums normal Neck Supple, symmetrical, trachea midline, no adenopathy, thyroid: not enlarged, symmetric, no tenderness/mass/nodules, no carotid bruit and no JVD Back Symmetric, no curvature. ROM normal. No CVA tenderness Lungs Clear to auscultation bilaterally, chest symmetry with respirations, normal vesicular breath sounds, no wheezes or crackles Chest wall no tenderness on percussion Heart Regular rate and rhythm, S1, S2 normal, no murmurs, clicks, rubs or gallop Abdomen Soft, non-tender. Bowel sounds normal. No masses, No organomegaly Extremities Extremities normal, atraumatic, no cyanosis or edema, normal joint ROM, no red, swelling, tender joints Pulses 2+ and symmetric at radial, dorsalis pedis arteries Skin Skin color, texture, turgor normal. No rashes or lesions Lymph nodes Cervical, supraclavicular, and axillary nodes normal. Neurologic Cranial nerves 2 thru 12 grossly normal Moves extremities with no difficulty, response to commands Labs in the past:? Hematology Lab History Some values may be hidden. Unless noted otherwise, only the newest values recorded on each date aredisplayed. Labs - Hematology Latest Ref Range 12/29/20 WBC 3.8 - 9.9 K/cumm 22.2 (A) Total Hb, POC 11.9 - 15.5 g/dL 12.0 Hct 35.6 - 45.5 % 41.3 Plt 150 - 400 K/cumm 524 (A) Neutrophil abs 1.7 - 6.5 K/cumm 16.5 (A) Lymphocytes, abs 0.8 - 3.3 K/cumm 3.2 (A) Abnormal value Chem/LFT Lab History Some values may be hidden. Unless noted otherwise, only the newest values recorded on each date aredisplayed. Labs-Chem/LFT Latest Ref Range 12/29/20 Sodium 135 - 145 mmol/L 138 Creatinine 0.60 - 1.10 mg/dL 0.80 Bilirubin, total 0.1 - 1.2 mg/dL <0.2 AST 10 - 45 Units/L 14 ALT 7 - 45 Units/L 11 CrCl- Actual Body Weight (Cockcroft-Gault) 100.4 Active Medications: Current Facility-Administered Medications: ??? acetaminophen (TYLENOL) tablet 650 mg, 650 mg, oral, Q4H PRN, Parmjit Powell MD ??? albuterol HFA (PROVENTIL HFA,VENTOLIN HFA,PROAIR HFA) 90 mcg/actuation inhaler 2 puff, 2 puff, inhalation, Q6H PRN (RT), Parmjit Powell MD ??? budesonide-formoteroL (SYMBICORT) 160-4.5 mcg/actuation inhaler 2 puff, 2 puff, inhalation, BID, Parmjit Powell MD ??? [START ON 12/30/2020] cefTRIAXone (ROCEPHIN) 1,000 mg/10 mL in sterile water (premix) 1,000 mg,1,000 mg, intravenous, Q24H [facility], Parmjit Powell MD ??? enoxaparin (LOVENOX) syringe 40 mg, 40 mg, subcutaneous, Daily-2100, Parmjit Ruiz MD ??? [START ON 12/30/2020] escitalopram (LEXAPRO) tablet 20 mg, 20 mg, oral, Daily, Parmjit Powell MD ??? hydrOXYzine (ATARAX) tablet 25 mg, 25 mg, oral, BID PRN, Parmjit Powell MD ??? labetaloL (NORMODYNE,TRANDATE) injection 20 mg, 20 mg, intravenous, Q6H PRN, Parmjit Powell MD ??? [START ON 12/30/2020] levETIRAcetam (KEPPRA) 1,000 mg/100 mL in sodium chloride (premix) 1,000 mg, 1,000 mg, intravenous, Q12H [facility], Parmjit Powell MD ??? LORazepam (ATIVAN) injection 1 mg, 1 mg, intravenous, Q6H PRN, Parmjit Powell MD ??? ocrelizumab (OCREVUS) 30 mg/mL injection 600 mg, 600 mg, intravenous, Q6 Months, Parmjit Powell MD ??? ondansetron (ZOFRAN) injection 4 mg, 4 mg, intravenous, Q6H PRN, Parmjit Powell MD ??? oxyCODONE-acetaminophen (PERCOCET) 5-325 mg per tablet 1 tablet, 1 tablet, oral, Q4H PRN, Parmjit Powell MD ??? zonisamide (ZONEGRAN) capsule 500 mg, 500 mg, oral, Nightly, Parmjit Powell MD Hospital problems: Principal Problem: Seizure (CMS/HCC) ([facility]) Active Problems: Epilepsy (HCC) Multiple sclerosis (CMS/HCC) ([facility]) Migraine Plan: Dysarthria Worsening MS? Verses CVA? Verses postictal state? Verses metabolic encephalopathy related to a UTI MRI to be ordered, supportive management, neurology consulted If MRI positive for acute flare will start the patient on high-dose steroids Loaded with Keppra from the ER, given ativan also, will continue b.i.d. Keppra, patient states issues in time the desonide and a will hold until evaluated by Neurology for chronic management UA negative for stimulants, only positive for cannabis NPO for the time being, nursing bedside evaluation tomorrow, hopefully just postictal Generalized tonic-clonic seizure Patient has a background of seizure disorder on zonisamide 500 mg daily, was given Ativan being loaded with Keppra, further adjustment on chronic medications per Neurology tomorrow Multiple sclerosis MRI done on November 09, 2020 showed the patient have stable extensive white matter disease within the supratentorial brain related to MS also stable cervical lesions On ocrelizumab to be continued if present on formulary if not they can bring it of a non formulary,reviewed package insert no causation of seizure disorder Mood disorder unspecified holding the patient's monthly injection of Abilify , continuing escitalopram Migraine disorder has had home p.r.n. Triptan, ibuprofen, Fioricet, will hold for now Leukocytosis suspect stress-induced, repeat CBC in the a.m. Abnormal UA ceftriaxone started, will continue pending cultures DVT prophylaxis: Lovenox Current Code Status: Full Code? Current Planned Disposition: home Education provided using teach back, patient and/or caregiver understands instructions. Plan discussed in detail with patient DISCLAIMER: This note was dictated with the assistance of a dictation software and there may occasionally be some mispelled or mistranslated/substituted words.? Parmjit Powell MD 10:02 PM 12/29/2020 [facility] documented in this encounter Procedure Notes * Roberto Angel MD - 01/03/2021 3:24 PM CDTAssociated Order(s): EEG Reason for exam: Breakthrough seizures Technical: This is a digitally recorded electroencephalogram. It was just over 29 minutes long. Theinternational 10-20 electrode placement system is used for scalp electrode placement. Eighteen channels of scalp EEG are recorded. One channel was used for EOG. Another channel was used for ECG. The data are stored digitally and reviewed in reformatted montages for optimal display. Background: 9 hertz alpha activity was seen. Maximal over the posterior head region. These activities are symmetric on both sides. They attenuated with eye opening. Intermittently seen left frontal spike and wave followed by brief focal delta activity. Description: No seizure like activity was observed during this recording. Patient entered into periods of drowsiness and light sleep. Hyperventilation was performed without any additional abnormalities. Photic stimulation was performed without any additional abnormalities. Impression: Abnormal EEG. Left frontal spike and wave and focal slowing, still present, but much less frequent with more return to normal background than seen on previous EEG. No seizure like activity was observed. Correlation with clinical findings is needed. * Roberto Angel MD - 01/01/2021 2:45 PM CDTAssociated Order(s): EEG Reason for exam: Witnessed seizures. Persistent aphasia. Technical: This is a digitally recorded electroencephalogram. It was just over 28 minutes long. Theinternational 10-20 electrode placement system is used for scalp electrode placement. Eighteen channels of scalp EEG are recorded. One channel was used for EOG. Another channel was used for ECG. The data are stored digitally and reviewed in reformatted montages for optimal display. Background: 9 hertz alpha activity was seen. Maximal over the posterior head region. These activities are symmetric on both sides. They attenuated with eye opening. Frequently seen were left frontotemporal discharges followed by focal delta range slowing in these leads. Description: Patient entered into periods of drowsiness and light sleep. Hyperventilation was performed without any additional abnormalities. Photic stimulation was performed without any additional abnormalities. Impression: Abnormal EEG. Left frontotemporal discharges with focal slowing, suggests likely epileptogenicity from this region. No clinical seizures were seen. Correlation with clinical findings is needed. documented in this encounter Consult Notes * Roberto Angel MD - 12/30/2020 4:24 PM CDTAssociated Order(s): IP CONSULT TO NEUROLOGY Images from the original note were not included. [facility] Neurology Consultation Date of admission: 12/29/2020 Requesting Provider: Spencer Richardson* Reason for Consult: epilepsy History of Present Illness: 48-year-old female with a history of multiple sclerosis, migraines, seizures. She was admitted through the ED following presentation for multiple breakthrough seizures occurring yesterday. She is on zonisamide for her seizures, and normally goes years in between seizures. She had a generalized seizure yesterday, and her boyfriend was bring her to the ED. on arrival she had an additional seizure, which was aborted with Ativan, but she did not return back to baseline. She continues to have aphasic symptoms still present when seen this afternoon. I spoke with her sister, who states that the patient is often confused for up to 48 hours following her seizures. Reviewed her old images, and she had fairly significant MS white matter disease burden even in 2006 when initially diagnosed. Most of her treatment has been done at [facility] since then, so we only have the reports and not the images. It sounds like since starting on disease modifying medication her disease has been relatively well controlled. She is currently on Ocrevus every 6 months. She also has multiple psychiatric diagnoses, andis on monthly aripiprazole injections. She has migraines for which she gets Botox. She takes baclofen for spasticity. Most of her deficits from her MS are cognitive in nature. PMH: Multiple sclerosis, migraines, epilepsy PSH: Denies. HOME MEDICATIONS : ocrelizumab (OCREVUS) 30 mg/mL solution onabotulinumtoxin A (BOTOX) 100 unit recon soln albuterol HFA (PROVENTIL HFA,VENTOLIN HFA,PROAIR HFA) 90 mcg/actuation inhaler ARIPiprazole (ARIPiprazole) 300 mg IM injection baclofen (LIORESAL) 10 mg tablet zpyzqvvirb-piqjektjbjubl-tmkvhhvn (ESGIC) 50-325-40 mg per tablet escitalopram (LEXAPRO) 20 mg tablet fluticasone propionate (FLONASE) 50 mcg/actuation nasal spray hydrOXYzine (ATARAX) 25 mg tablet ibuprofen (ADVIL,MOTRIN) 800 mg tablet Symbicort 160-4.5 mcg/actuation inhaler zonisamide (ZONEGRAN) 100 mg capsule Current Facility-Administered Medications Medication Dose Route Frequency Provider Last Rate Last Admin ??? acetaminophen (TYLENOL) tablet 650 mg 650 mg oral Q4H PRN Parmjit Powell MD ??? albuterol HFA (PROVENTIL HFA,VENTOLIN HFA,PROAIR HFA) 90 mcg/actuation inhaler 2 puff 2 puff inhalation Q6H PRN (RT) Parmjit Powell MD ??? budesonide-formoteroL (SYMBICORT) 160-4.5 mcg/actuation inhaler 2 puff 2 puff inhalation BID (RT) Parmjit Powell MD 2 puff at 12/30/20 0802 ??? cefTRIAXone (ROCEPHIN) 1,000 mg/10 mL in sterile water (premix) 1,000 mg 1,000 mg intravenous Q24H [facility] Parmjit Powell MD 1,000 mg at 12/30/20 0810 ??? enoxaparin (LOVENOX) syringe 40 mg 40 mg subcutaneous Daily-2100 Parmjit Poewll MD 40 mg at 12/29/20 2200 ??? escitalopram (LEXAPRO) tablet 20 mg 20 mg oral Daily Parmjit Powell MD 20 mg at 12/30/20 0809 ??? hydrOXYzine (ATARAX) tablet 25 mg 25 mg oral BID PRN Parmjit Powell MD ??? labetaloL (NORMODYNE,TRANDATE) injection 20 mg 20 mg intravenous Q6H PRN Parmjit Ruiz MD ??? levETIRAcetam (KEPPRA) 1,000 mg/100 mL in sodium chloride (premix) 1,000 mg 1,000 mg intravenous Q12H [facility] Parmjit Powell MD 1,000 mg at 12/30/20 0809 ??? LORazepam (ATIVAN) injection 1 mg 1 mg intravenous Q6H PRN Parmjit Powell MD ??? LORazepam (ATIVAN) injection 1 mg 1 mg intravenous Once Roberto Angel MD ??? methylPREDNISolone sodium succinate (SOLU-medrol) 1,000 mg in sodium chloride 0.9% 100 mL IVPB 1,000 mg intravenous Q24H [facility] Roberto Angel MD ??? ondansetron (ZOFRAN) injection 4 mg 4 mg intravenous Q6H PRN Parmjit Powell MD ??? oxyCODONE-acetaminophen (PERCOCET) 5-325 mg per tablet 1 tablet 1 tablet oral Q4H PRN Parmjit Powell MD ??? zonisamide (ZONEGRAN) capsule 500 mg 500 mg oral Nightly Parmjit Powell MD 500 mg at 10/13/21 2200 No Known Allergies Social History Socioeconomic History ??? Marital status: Single Spouse name: None ??? Number of children: None ??? Years of education: None ??? Highest education level: None Occupational History ??? None Tobacco Use ??? Smoking status: Never Smoker ??? Smokeless tobacco: Never Used Vaping Use ??? Vaping Use: Never used Substance and Sexual Activity ??? Alcohol use: None ??? Drug use: Yes Frequency: 7.0 times per week Types: Marijuana ??? Sexual activity: None Other Topics Concern ??? None Social History Narrative ??? None Social Determinants of Health Financial Resource Strain: ??? Difficulty of Paying Living Expenses: Not on file Food Insecurity: ??? Worried About Running Out of Food in the Last Year: Not on file ??? Ran Out of Food in the Last Year: Not on file Transportation Needs: ??? Lack of Transportation (Medical): Not on file ??? Lack of Transportation (Non-Medical): Not on file Physical Activity: ??? Days of Exercise per Week: Not on file ??? Minutes of Exercise per Session: Not on file Stress: ??? Feeling of Stress : Not on file Social Connections: ??? Frequency of Communication with Friends and Family: Not on file ??? Frequency of Social Gatherings with Friends and Family: Not on file ??? Attends Taoist Services: Not on file ??? Active Member of Clubs or Organizations: Not on file ??? Attends Club or Organization Meetings: Not on file ??? Marital Status: Not on file Intimate Partner Violence: ??? Fear of Current or Ex-Partner: Not on file ??? Emotionally Abused: Not on file ??? Physically Abused: Not on file ??? Sexually Abused: Not on file No family history on file. Review of Systems: A ten system review of constitutional, cardiovascular, respiratory, musculoskeletal, endocrine, skin, SHEENT, genitourinary, psychiatric and neurologic systems was obtained and is unremarkable with the exception of the following: Vitals: 24 hr Min/Max: Temp Min: 36.6 ??C (97.8 ??F) Max: 36.9 ??C (98.4 ??F) Pulse Min: 62 Max: 97 BP Min: 97/57 Max: 113/67 Resp Min: 17 Max: 18 SpO2 Min: 97 % Max: 100 % Most Recent: Vitals: 12/30/20 1100 BP: 105/64 Pulse: 94 Resp: 18 Temp: 36.8 ??C (98.2 ??F) SpO2: 100% Height: 165.1 cm (5' 5 ) Weight: 63.5 kg (139 lb 14.4 oz) BMI (Calculated): 23.3 I/O last 2 completed shifts: In: 1100 [IV Piggyback:1100] Out: - No intake/output data recorded. Physical Exam General: GEN: NAD, pleasant, cooperative CVS: RRR, normal radial pulse CHEST: No signs of resp distress, on room air ABD: Soft, NTTP. Neuro: Mental Status: Patient is awake and alert, she is oriented to month and year, but is unable to answer the questions correctly due to expressive aphasia which presents as word substitution. Also having occasional perseveration. No dysarthria. Speech is fluent. Comprehension also seem somewhat impaired. II, III, IV, : visual huber full to confrontation; pupils equal, round, and reactive to light; full extraocular movements V: facial sensation intact to light touch VII: facial expression full and symmetric VIII: Normal hearing to voice IX, X: palate elevates in the midline; speech is not hoarse or dysarthric XI: shoulder shrug has full power XII: tongue protrudes in the midline Motor: Muscle bulk and tone are normal. Strength is 5/5 in all four extremities both proximally anddistally. Intact fine motor movements bilaterally. Sensory: Sensation is intact to light touch, pinprick, vibration, and proprioception throughout. Reflexes: Brisk and symmetric in all the extremities. Coordination: No dysmetria on evyvuv-zmhp-zxntfn or pxxa-jsvw-pnsd. Normal rapid alternating movements. Gait: Unable to ambulate safely due to current medical condition. Lab/Radiology/Diagnostic Review: Laboratory review: Chemistry CMP: Lab Results Component Value Date ALBUMIN 4.6 12/29/2020 BUNSER 17 12/29/2020 CALCIUM 9.8 12/29/2020 CO2 12 (L) 12/29/2020 CHLORIDE 103 12/29/2020 CREATININE 0.80 12/29/2020 GLUCOSE 119 12/29/2020 GLUCOSE 142 12/29/2020 POTASSIUM 4.3 12/29/2020 SODIUM 138 12/29/2020 BILITOT <0.2 12/29/2020 PROT 7.8 12/29/2020 ALT 11 12/29/2020 AST 14 12/29/2020 ALKPHOS 94 12/29/2020 , CBC: Lab Results Component Value Date WBC 22.2 (H) 12/29/2020 RBC 5.43 (H) 12/29/2020 HGB 12.0 12/29/2020 HCT 41.3 12/29/2020 MCV 76.1 (L) 12/29/2020 MCH 22.1 (L) 12/29/2020 MCHC 29.1 (L) 12/29/2020 RDWCV 17.5 (H) 12/29/2020 RDWSD 46.5 12/29/2020 MPV 9.4 12/29/2020 NRBCABS 0.00 12/29/2020 , Coags: Lab Results Component Value Date PT 12.8 12/29/2020 INR 1.0 12/29/2020 , Lipids: No results found for: CHOL, CHLPL, HDL, LDLCALC, TRIG, CHOLHDL, and Cardiac Enzymes: No results found for: CKTOTAL, CKMB, CKMBINDEX, TROPONINT, TROPTHS Additional (if available): No results found for: HGBA1C, No results found for: LDLCALC, No results found for: TSH Imaging Results for orders placed or performed during the hospital encounter of 12/29/20 MRI Brain W WO Contrast Narrative EXAM DESCRIPTION: MRI BRAIN W WO CONTRAST REASON FOR STUDY: Seizure yesterday in a patient with history of epilepsy and multiple sclerosis. TECHNIQUE: Multiplanar imaging includes noncontrast T1, T2, FLAIR, diffusion with ADC map and post contrast T1 sequences. Additional sequence(s) sensitive to blood products. Images stored on PACS. CONTRAST TYPE/DOSE: 13mL Dotarem) injected via IV site without reported incident COMPARISON: CT head without contrast 12/29/2020; CT head without contrast 09/01/2006 (images without report); MRI brain without and with contrast 09/06/2006 (images without report) FINDINGS: CEREBRUM: No hemorrhage, edema, or mass effect. No abnormal enhancement. WHITE MATTER: There is marked confluent as well as patchy periventricular through juxtacortical diffuse bilateral cerebral as well as a patchy component of midbrain, pontine (with extension into the bilateral middle cerebral peduncles), and anterior left medulla, as well as diffuse variable callosal (maximal about the splenium) and pericallosal (consistent with Borja's fingers) T2/FLAIR hyperintense white matter disease, consistent with provided history of multiple sclerosis. Extensive corresponding T1 hypointensity with these lesions consistent with black holes. POSTERIOR FOSSA: As above. There is associated contrast enhancement with anterior left medullary demyelinating lesion consistent with active demyelinating lesion. DIFFUSION IMAGING: No restricted diffusion to suggest cytotoxic and/or intramyelinic edema as evidence of acute-subacute ischemia/infarct and/or active demyelinating lesions. EXTRAAXIAL SPACES: No hemorrhage. No mass or abnormal enhancement. BRAIN VOLUME: Mild cerebral volume loss without predilection, advanced for age. PITUITARY: Unremarkable. VASCULATURE: No flow disturbance evident. CALVARIUM: Unremarkable. ORBITS: No acute abnormality. Ocular lenses and globes normal in conformation and position. PARANASAL SINUSES AND MASTOIDS: Well-aerated with no fluid levels. No mucosa thickening. OTHER: No other significant finding. IMPRESSION: 1. Marked supratentorial and infratentorial white matter disease as detailed above consistent with provided history of multiple sclerosis. 2. Anterior left medullary demyelinating lesion demonstrates corresponding contrast enhancement consistent with active demyelinating lesion. THIS IS AN ELECTRONICALLY VERIFIED FINAL REPORT 12/30/2020 3:57 PM - Electronically signed by Julius ROGERS T: Report ID: [id number] Reading Location: [place] [id number] CT Head WO Contrast Narrative EXAM DESCRIPTION: CT HEAD WO CONTRAST REASON FOR STUDY: Seizure disorder, clinical change, seizure Patient to ED via POV having active seizure. Brought to ED Rm 4, NRB 02 at 15L placed on patient, IV access obtained at Ativan 4mg given at 1412. Seizure activity appears to have stopped after Ativan administration. No medical/surgical hx listed in pt chart (-)HCG TECHNIQUE: Axial images acquired through the brain without intravenous contrast. Images stored on PACS. Automated exposure control was used as a dose optimization technique for this examination. COMPARISON: 09/06/2006. FINDINGS: BRAIN: No hemorrhage, edema or mass effect. No recent infarct. Normal white matter. EXTRA-AXIAL SPACES: No fluid collections. No masses. CALVARIUM: No fracture. SINUSES/MASTOIDS: No fluid or mucosal thickening. ORBITS: No significant abnormality. OTHER: No other significant abnormality. IMPRESSION: No acute intracranial findings. THIS IS AN ELECTRONICALLY VERIFIED FINAL REPORT 12/29/2020 3:49 PM - Electronically signed by Enoch BROWNE T: Report ID: [id number] Reading Location: [id number] Other studies: Assessment and Plan: 40-year-old female with multiple sclerosis and seizure disorder presents with breakthrough seizures. She is found to have a UTI. She is on zonisamide 500 daily, which she is reportedly compliant with. She is a poor historian at the moment, due to still being postictal even now almost 24 hours sinceher last seizure. Her sister states she often is postictal up to 48 hours. MRI brain obtained, which shows fairly significant burden of MS related white matter changes, with small area of contrast enhancement in the left anterior medulla. This suggests acute demyelinating lesion. A lesion in the medulla is very unlikely to be the trigger for seizure. Suspect more likely be the UTI may have triggered the seizure, and may have also triggered the MS exacerbation. Is being treated for UTI by fiber technician. Continue home zonisamide for seizures. EEG is pending. For the exacerbation, have ordered 3 days of 1 g methylprednisone q24. She currently denies any clinical exacerbation symptoms, so may only need very brief steroid course. This note is transcribed using MModal, despite my best efforts, security sales manager errors can occur. Please do not hesitate to contact me personally if you have any questions. documented in this encounter Nursing Notes * Cindy Cantu RN - 01/01/2021 5:21 PM CDT Patient gave verbal consent that MD and nurses may talk to mother, Serg Frost regarding patient's health information. documented in this encounter ED Notes * Dalton Ashford MD - 12/29/2020 3:57 PM CDT HPI Chief Complaint Patient presents with ??? Seizures HPI 40-year-old female with medical history of epilepsy, multiple sclerosis who presents today with seizure. Patient arrived via private vehicle and was found seizing in the back of the car. History limited as patient was actively seizing and friend was driving the car. Per friend, she hada 10 minutes episode of seizure prior to arrival. This seizure initially stopped and he was drivingback home when she started seizing again. No further history is obtained given pt's acuity of condition. Patient History: There are no problems to display for this patient. No past medical history on file. No past surgical history on file. No family history on file. Social History Tobacco Use ??? Smoking status: Not on file Substance Use Topics ??? Alcohol use: Not on file ??? Drug use: Not on file Social History Social History Narrative ??? Not on file Review of Systems Review of Systems Unable to perform ROS: Acuity of condition Physical Exam ED Triage Vitals Temp Pulse Resp BP SpO2 12/29/20 1841 12/29/20 1424 12/29/20 1424 12/29/20 1424 12/29/20 1424 36.6 ??C (97.8 ??F) 117 22 140/71 94 % Temp src Heart Rate Source Patient Position BP Location FiO2 (%) 12/29/20 1841 12/29/20 1522 -- -- -- Oral Monitor Physical Exam Constitutional: Appearance: She is normal weight. Comments: Active tonic clonic seizure with neck deviated to the right and eyes to the right. HENT: Head: Normocephalic and atraumatic. Right Ear: External ear normal. Left Ear: External ear normal. Nose: Nose normal. Mouth/Throat: Mouth: Mucous membranes are moist. Eyes: Pupils: Pupils are equal, round, and reactive to light. Cardiovascular: Rate and Rhythm: Regular rhythm. Tachycardia present. Pulses: Normal pulses. Pulmonary: Effort: No respiratory distress. Breath sounds: No wheezing or rales. Abdominal: General: There is no distension. Palpations: Abdomen is soft. Musculoskeletal: General: Normal range of motion. Skin: General: Skin is warm. Capillary Refill: Capillary refill takes less than 2 seconds. Neurological: General: No focal deficit present. [facility] ED Course as of Dec 29 1957 Time: 12/30 1603 Comment: Medical records reviewed. Hx of multiple sclerosis and epilepsy. Actively seizing on arrival. She was given 4mg IV ativan with resolution of seizure. 2g Keppra administered. By: Dalton Ashford MD Time: 12/29 1604 Comment: CT head unremarkable. Cxray unremarkable. By: Dalton Ashford MD Time: 12/29 1604 Comment: CBC shows leukocytosis to 22. Likely 2/2 to seizure. CMP shows anion gap 23. CO2 12. UDS +for cannabis. UA consistent with acute cystitis. Rocephin given in the ED. By: Dalton Ashford MD Time: 12/29 189 Comment: On reassessment, pt is awake. When asked questions, she continues to mumble and her speechis not discernable. She has no focal deficits and intermittently follows commands. By: Dalton Ashford MD Time: 12/29 1822 Comment: Case discussed with neurology. She will be admitted for EEG and further monitoring. By: Dalton Ashford MD Final diagnoses: Multiple sclerosis (CMS/HCC) (HCC) Nonintractable epilepsy without status epilepticus, unspecified epilepsy type (HCC) Seizure (CMS/HCC) (HCC) Dalton Ashford MD 12/29/201958 * Evelio Coon RN - 12/29/2020 2:12 PM CDT Patient to ED via POV having active seizure. Brought to ED Rm 4, NRB 02 at 15L placed on patient, IV access obtained at Ativan 4mg given at 1412. Seizure activity appears to have stopped after Ativanadministration. documented in this encounter Miscellaneous Notes * Plan of Care - Rachna Sumner RN - 01/03/2021 3:24 PM CDT Goals: Clinical Goals for the Shift: Safety Summary: Patient waited patiently for her ride today. She was picked up by Janell Gentile as requested by patients mother. Patient was able to walk to the front entrance. IV was removed, discharge paperwork was reviewed, questions asked and answered. She left with all belongings. * Plan of Care - Cindy Cantu RN - 01/02/2021 4:11 PM CDT Goals: Clinical Goals for the Shift: Safety Summary: PATIENT ALERT AND ORIENTED X 4. PATIENT PLEASANT AND COOPERATIVE. PATIENT UP INDEPENDENTLY. * Plan of Care - Cindy Cantu RN - 01/01/2021 3:00 PM CDT Goals: Clinical Goals for the Shift: Safety Summary: Patient alert, oriented, and pleasant. Patient cooperative. No acute distress noted. * Plan of Care - Donna Hill RN - 12/31/2020 11:40 AM CDT Problem: Facility Isolation Psychosocial Wellbeing Description: Resident at risk for psychosocial wellbeing concern related to medical and visitation restrictions secondary to COVID-19 Goal: Resident will not show a decline in psychosocial wellbeing or experience adverse effects through next review Description: 1. Educate resident, family, resident representatives, staff and visitors of COVID-19 signs and symptoms and precautions 2. Provide emotional support and allow resident to express feelings, fears, and concerns 3. Observe for psychosocial and mental status changes, document and update social services manager and MD as needed 4. Provide in room activities of choice if indicated 5. Provide alternative methods of communication with family/visitors 6. Assure resident, family, and resident representatives facility is taking precautions to keep them safe 7. Update resident, family, and resident representatives as needed Outcome: Progressing Problem: COVID-19 Prevention and Monitoring Description: Resident requires monitoring and prevention as they relate to COVID-19 Goal: Resident will show no signs or symptoms of COVID-19 Description: 1. Monitor frequently for potential symptoms including fever and respiratory symptoms 2. Educate resident, family, resident representatives, staff and visitors of COVID-19 signs and symptoms and precautions 3. Remind residents to report if they feel feverish or have symptoms of respiratory infection 4. Reinforce no visitor policy and non-essential health care personnel policy, except for certain compassionate care situations 5. When visitors are necessary and meet exception to no visitor policy, limit to a specified room, encourage social distancing with no handshakes, physical contact, and remaining 6 feet apart 6. Update resident, family, and resident representatives as needed Outcome: Progressing Problem: COVID-19 Confirmed or Rule-Out Description: Resident requires specific care to avoid complications secondary to COVID-19 Goal: Resident will remain free of complications due to COVID-19 Description: 1. Review and update the resident's isolation status in the Isolation activity 2. Keep the resident's door closed at all times and limit movement of the resident outside of the room to medically essential purposes. If applicable, transfer resident to a single-person room 3. Educate and reinforce infection prevention and control practices recommended by CDC 4. Frequently monitor for development of more severe symptoms 5. Use appropriate PPE when providing care for resident 6. Reinforce no visitor policy and non-essential health care personnel policy, except for certain compassionate care situations 7. If worsening of symptoms occur, alert the nearest Hospital caring for confirmed COVID-19 patients and arrange for transfer with proper precautions including placing a facemask on the resident during transfer 8. Communicate information about known or suspected case of COVID-19 to [facility] public health personnel 9. Avoid procedures that are likely to induce coughing (e.g., sputum induction, open suctioning of airways). If required, do so in a Airborne Infection Isolation Room. The health care provider in theroo should wear an N95 or higher-level respirator, eye protection, gloves, and a gown. The number of HCP present during the procedure should be limited to only those essential for resident care and procedure support. Visitors should not be present for the procedure. Clean and disinfect procedure room surfaces promptly 10. Update resident, family, and resident representatives as needed Outcome: Progressing Problem: Lack of Knowledge: Goal: Ability to state ways to decrease the risk of falls will improve Outcome: Progressing Problem: Safety: Goal: Will remain free from falls Outcome: Progressing Goal: Will remain free from injury from falls Outcome: Progressing Goal: Will remain free from falls and injury in home environment Outcome: Progressing Problem: Health Behavior: Goal: Understanding of discharge needs will improve Outcome: Progressing Goals: Clinical Goals for the Shift: Safety Summary: * Plan of Care - Jacquie Ricardo RN - 12/31/2020 2:07 AM CDT Clinical Goals for the Shift: Safety Summary: Problem: Facility Isolation Psychosocial Wellbeing Description: Resident at risk for psychosocial wellbeing concern related to medical and visitation restrictions secondary to COVID-19 Goal: Resident will not show a decline in psychosocial wellbeing or experience adverse effects through next review Description: 1. Educate resident, family, resident representatives, staff and visitors of COVID-19 signs and symptoms and precautions 2. Provide emotional support and allow resident to express feelings, fears, and concerns 3. Observe for psychosocial and mental status changes, document and update social services manager and MD as needed 4. Provide in room activities of choice if indicated 5. Provide alternative methods of communication with family/visitors 6. Assure resident, family, and resident representatives facility is taking precautions to keep them safe 7. Update resident, family, and resident representatives as needed Outcome: Not Progressing Problem: Safety: Goal: Will remain free from falls Outcome: Progressing Goal: Will remain free from injury from falls Outcome: Progressing Goal: Will remain free from falls and injury in home environment Outcome: Progressing * Plan of Care - Jacquie Ricardo RN - 12/31/2020 2:03 AM CDT Goals: Clinical Goals for the Shift: Safety Summary: Pt unable to rest well throughout shift. Pt calm but confused at times. Pulled out her IV.Pt stated, I was done with it and threw it in the trash . Bed alarm on, call light within reach, will continue to monitor. * Plan of Care - Autumn Boothe RN - 12/30/2020 4:12 PM CDT Goals: No seizure activity, safety, free from falls. Summary: Discussed safety and fall precautions with patient and reinforced. Verbalized understanding, bed alarm on, no seizure activity at this time noted. * ED Procedure Note - Dalton Ashford MD - 12/29/2020 8:00 PM CDT Associated Order(s): Critical Care Procedure Critical Care Performed by: Dalton Ashford MD Authorized by: Dalton Ashford MD Critical care provider statement: As reflected in the history, physical exam, orders, notes, and/or MDM, I was personally present while the patient was critically ill and provided critical care services for approximately 38 minutes, excluding time involved in separately billable procedures. Critical care was necessary to treat or prevent imminent or life-threatening deterioration of the following condition(s): seizure Critical care was time spent by me providing the following: continuous telemetry, continuous pulse oximetry and serial bedside patient exams frequent neurologic exams and initiation of anti-epileptic therapy I provided emergent necessary critical care medicine services to this patient. I spent time discussing the management of this critically ill patient with consultants and the medical staff. I spent time documenting in the medical record. I admitted this patient to a continuous cardiac monitored bed.I ordered and reviewed test results and/or imaging studies. Dalton Ashford MD 12/29/202058 documented in this encounter Plan of Treatment Not on file documented as of this encounter Procedures Procedure Name Priority Date/Time Associated Diagnosis Comments EGFR Routine 01/03/2021 9:22 AM CDT DIFFERENTIAL AUTO Routine 01/03/2021 9:2 2 AM CDT CBC WITH AUTO DIFFERENTIAL Routine 01/03/2021 9:22 AM CDT BASIC METABOLIC PANEL Routine 01/03/2021 9:22 AM CDT EEG Routine 01/03/2021 7:54 AM CDT EGFR Routine 01/02/2021 5:53 AM CDT DIFFERENTIAL AUTO Routine 01/02/2021 5:5 3 AM CDT CBC WITH AUTO DIFFERENTIAL Routine 01/02/2021 5:53 AM CDT BASIC METABOLIC PANEL Routine 01/02/2021 5:53 AM CDT EGFR Routine 01/01/2021 3:42 AM CDT DIFFERENTIAL AUTO Routine 01/01/2021 3:4 2 AM CDT CBC WITH AUTO DIFFERENTIAL Routine 01/01/2021 3:42 AM CDT BASIC METABOLIC PANEL Routine 01/01/2021 3:42 AM CDT EGFR Routine 12/31/2020 12:07 PM CDT DIFFERENTIAL AUTO Routine 12/31/2020 12: 07 PM CDT CBC WITH AUTO DIFFERENTIAL Routine 12/31/2020 12:07 PM CDT COMPREHENSIVE METABOLIC PANEL Routine 12/31/2020 12:07 PM CDT EEG Routine 12/31/2020 9:11 AM CDT MRI BRAIN W WO CONTRAST ED Urgent/IP Urgent 12/30/2020 3:46 PM CDT TN CRITICAL CARE ILL/INJURED PATIENT INIT 30-74 MIN Routine 12/29/2020 8:00 PM CDT INFLUENZA A/B, RSV, AND COVID-19 PCR Routine 12/29/2020 6:[address] HEAD WO CONTRAST ED 12/29/2020 3 :43 PM CDT XR CHEST 1 VIEW ED 12/29/2020 3:31 PM CDT ECG 12-LEAD STAT 12/29/2020 2:57 PM CDT URINALYSIS AND REFLEX TO MICROSCOPIC AND CULTURE STAT 12/29/2020 2:52 PM CDT DRUGS OF ABUSE SCREEN, URINE WITHOUT CONFIRMATION STAT 12/29/2020 2:52 PM CDT URINALYSIS, MICROSCOPIC ONLY STAT 12/29/2020 2:52 PM CDT URINE CULTURE STAT 12/29/2020 2:52 PM CDT EGFR STAT 12/29/2020 2:28 PM CDT DIFFERENTIAL AUTO STAT 12/29/2020 2:2 8 PM CDT CBC WITH AUTO DIFFERENTIAL STAT 12/29/2020 2:28 PM CDT ZONISAMIDE LEVEL STAT 12/29/2020 2:28 PM CDT PROTIME-INR STAT 12/29/2020 2:28 PM CDT HCG, BLOOD, QUANTITATIVE STAT 12/29/2020 2:28 PM CDT COMPREHENSIVE METABOLIC PANEL STAT 12/29/2020 2:28 PM CDT POCT GLUCOSE DEVICE Routine 12/29/2020 2 :18 PM CDT documented in this encounter Results * eGFR (01/03/2021 9:22 AM CDT) [facility] eGFR 121 mL/min/1.7 3 m2 [facility] Comment: Interpretive Data Reference Interval Normal ?>/= 90 mL/min/1.73m2 Mildly decreased* ? 60 - 89 mL/min/1.73m2 Mildly to moderately decreased ?45 - 59 mL/min/1.73m2 Moderately to severely decreased ??30 - 44 mL/min/1.73m2 Severely decreased ?15 - 29 mL/min/1.73m2 Kidney Failure ?< 15 ??mL/min/1.73m2 *Relative to young adult level Estimated glomerular filtration rate is determined by the CKD-EPI equation recommended by the National Kidney Foundation (KDIGO 2012 Clinical Practice Guideline for the Evaluation and Management of Chronic Kidney Disease. Kidney Intnl Suppl Mar 2012;3:1). The CKD-EPI equation should not be used for patients with unstable renal function and has not been validated in children and those over 70. Current interpretive data was last reviewed 2020 Blood 01/03/2021 9:22 AM CDT 01/03/2021 9:43 AM CDT us Spencer Bartholomew MD LAB BLOOD ORDERABLES Final Result [place] [address] [facility] [place] [address] * (ABNORMAL) Differential, auto (01/03/2021 9:22 AM CDT) Neutrophil abs 8.2(H) 1.7 - 6.5 K/cumm [facility] Imm gran abs 0.1 0.0 - 0.1 K/cumm [facility] Lymphocyte abs 2.1 0.8 - 3.3 K/cumm [facility] Monocyte abs 1.4(H) 0.2 - 0.8 K/cumm [facility] Eosinophil abs 0.1 0.0 - 0.5 K/cumm [facility] Basophil abs 0.0 0.0 - 0.1 K/cumm [facility] Neutrophil pct 68.5 % [facility] Comment: Interpretive Data Percent cell count reference ranges are not reported, since discordance with absolute values may lead to misinterpretation of CBC data. Current Interpretive Data was last revised on 2017. Imm gran pct 0.6 % [facility] Comment: Interpretive Data Percent cell count reference ranges are not reported, since discordance with absolute values may lead to misinterpretation of CBC data. Current Interpretive Data was last revised on 2017. Lymphocyte pct 17.5 % [facility] Comment: Interpretive Data Percent cell count reference ranges are not reported, since discordance with absolute values may lead to misinterpretation of CBC data. Current Interpretive Data was last revised on 2017. Monocyte pct 12.0 % [facility] Comment: Interpretive Data Percent cell count reference ranges are not reported, since discordance with absolute values may lead to misinterpretation of CBC data. Current Interpretive Data was last revised on 2017. Eosinophil pct 1.1 % [facility] Comment: Interpretive Data Percent cell count reference ranges are not reported, since discordance with absolute values may lead to misinterpretation of CBC data. Current Interpretive Data was last revised on 2017. Basophil pct 0.3 % [facility] Comment: Interpretive Data Percent cell count reference ranges are not reported, since discordance with absolute values may lead to misinterpretation of CBC data. Current Interpretive Data was last revised on 2017. Blood 01/03/2021 9:22 AM CDT 01/03/2021 9:43 AM CDT Spencer Bartholomew MD LAB BLOOD ORDERABLES Final Result [facility] [address] [facility] [place] [address] * (ABNORMAL) Basic metabolic panel (01/03/2021 9:22 AM CDT) Pathologist [facility] Sodium 141 135 - 145 mmol/L [facility] Potassium, pl 3.3 3.3 - 4.9 mmol/L [facility] Chloride 109 97 - 110 mmol/L [facility] CO2 25 22 - 32 mmol/L [facility] Anion gap 7 2 - 15 mmol/L [facility] BUN 15 8 - 25 mg/dL [facility] Creatinine 0.50(L) 0.60 - 1.10 mg/dL [facility] Glucose 89 70 - 199 mg/dL [facility] Comment: Interpretive Data Fasting glucose >/= 126 mg/dl is diagnostic for diabetes. ?? Fasting is defined as no caloric intake for at least 8 hours. Fasting glucose between 100 mg/dl to 125 mg/dl is diagnostic of prediabetes. In a patient with classic symptoms of hyperglycemia or hyperglycemic crisis, a random glucose >/= 200 mg/dl is diagnostic for diabetes. In the absence of unequivocal hyperglycemia, results should be confirmed by repeat testing. The classification and Diagnosis of Diabetes Diabetes Care 2017;40 (Suppl. 1):S11. Current interpretive data was last revised 2017. Calcium 9.4 8.5 - 10.3 mg/dL [facility] Blood 01/03/2021 9:22 AM CDT 01/03/2021 9:43 AM CDT Spencer Bartholomew MD LAB BLOOD ORDERABLES Final Result [place] [id number] [facility] [place] [address] * (ABNORMAL) CBC with auto differential (01/03/2021 9:22 AM CDT) WBC 11.9(H) 3.8 - 9.9 K/cumm [facility] Hgb 11.5(L) 11.9 - 15.5 g/dL [facility] Hct 37.3 35.6 - 45.5 % [facility] Plt 390 150 - 400 K/cumm [facility] MPV 9.1 9.1 - 12.3 fL [facility] RBC 5.11 3.90 - 5.20 M/cumm [facility] MCV 73.0(L) 81.3 - 96.4 fL [facility] MCH 22.5(L) 27.1 - 33.3 pg [facility] MCHC 30.8(L) 32.3 - 35.7 g/dL [facility] RDW CV 17.2(H) 11.1 - 14.9 % [facility] RDW SD 45.1 35.7 - 48.1 fL [facility] NRBC abs 0.00 0.00 - 0.01 K/cumm [facility] Blood 01/03/2021 9:22 AM CDT 01/03/2021 9:43 AM CDT Spencer Bartholomew MD LAB BLOOD ORDERABLES Final Result [facility] [place] [address] * EEG (01/03/2021 7:54 AM CDT) Anatomical Region Laterality Modality Other Narrative 01/03/2021 3:24 PM CDT Roberto Angel MD ? 01/03/2021 ??6:18 PM Reason for exam: ??Breakthrough seizures Technical: This is a digitally recorded electroencephalogram. It was just over 29 minutes long. ??The international 10-20 electrode placement system is used for scalp electrode placement. Eighteen channels of scalp EEG are recorded. One channel was used for EOG. Another channel was used for ECG. The data are stored digitally and reviewed in reformatted montages for optimal display. Background: 9 hertz alpha activity was seen. Maximal over the posterior head region. These activities are symmetric on both sides. They attenuated with eye opening. Intermittently seen left frontal spike and wave followed by brief focal delta activity. Description: ??No seizure like activity was observed during this recording. Patient entered into periods of drowsiness and light sleep. Hyperventilation was performed without any additional abnormalities. ?? Photic stimulation was performed without any additional abnormalities. ?? Impression: ??Abnormal EEG. ??Left frontal spike and wave and focal slowing, still present, but much less frequent with more return to normal background than seen on previous EEG. ??No seizure like activity was observed. Correlation with clinical findings is needed. us Roberto Angel MD NEUROLOGY ORDERABLES Final Result * eGFR (01/02/2021 5:53 AM CDT) eGFR 130 mL/min/1.7 3 m2 [facility] Comment: Interpretive Data Reference Interval Normal ?>/= 90 mL/min/1.73m2 Mildly decreased* ? 60 - 89 mL/min/1.73m2 Mildly to moderately decreased ?45 - 59 mL/min/1.73m2 Moderately to severely decreased ??30 - 44 mL/min/1.73m2 Severely decreased ?15 - 29 mL/min/1.73m2 Kidney Failure ?< 15 ??mL/min/1.73m2 *Relative to young adult level Estimated glomerular filtration rate is determined by the CKD-EPI equation recommended by the National Kidney Foundation (KDIGO 2012 Clinical Practice Guideline for the Evaluation and Management of Chronic Kidney Disease. Kidney Intnl Suppl Mar 2012;3:1). The CKD-EPI equation should not be used for patients with unstable renal function and has not been validated in children and those over 70. Current interpretive data was last reviewed 2020 Blood 01/02/2021 5:53 AM CDT 01/02/2021 6:30 AM CDT us Spencer Bartholomew MD LAB BLOOD ORDERABLES Final Result Performing Organization Address City/State/[facility] Co de Phone Number [facility] [address] [facility] Department [place] [address] * (ABNORMAL) Differential, auto (01/02/2021 5:53 AM CDT) Neutrophil abs 17.8(H) 1.7 - 6.5 K/cumm [facility] Imm gran abs 0.1 0.0 - 0.1 K/cumm [facility] Lymphocyte abs 1.7 0.8 - 3.3 K/cumm [facility] Monocyte abs 1.6(H) 0.2 - 0.8 K/cumm [facility] Eosinophil abs 0.0 0.0 - 0.5 K/cumm [facility] Basophil abs 0.0 0.0 - 0.1 K/cumm [facility] Neutrophil pct 83.6 % [facility] Comment: Interpretive Data Percent cell count reference ranges are not reported, since discordance with absolute values may lead to misinterpretation of CBC data. Current Interpretive Data was last revised on 2017. Imm gran pct 0.6 % [facility] Comment: Interpretive Data Percent cell count reference ranges are not reported, since discordance with absolute values may lead to misinterpretation of CBC data. Current Interpretive Data was last revised on 2017. Lymphocyte pct 8.1 % [facility] Comment: Interpretive Data Percent cell count reference ranges are not reported, since discordance with absolute values may lead to misinterpretation of CBC data. Current Interpretive Data was last revised on 2017. Monocyte pct 7.6 % [facility] Comment: Interpretive Data Percent cell count reference ranges are not reported, since discordance with absolute values may lead to misinterpretation of CBC data. Current Interpretive Data was last revised on 2017. Eosinophil pct 0.0 % [facility] Comment: Interpretive Data Percent cell count reference ranges are not reported, since discordance with absolute values may lead to misinterpretation of CBC data. Current Interpretive Data was last revised on 2017. Basophil pct 0.1 % [facility] Comment: Interpretive Data Percent cell count reference ranges are not reported, since discordance with absolute values may lead to misinterpretation of CBC data. Current Interpretive Data was last revised on 2017. Blood 01/02/2021 5:53 AM CDT 01/02/2021 6:31 AM CDT us Spencer Bartholomew MD LAB BLOOD ORDERABLES Final Result [facility] [address] [facility] Department [place] [address] * (ABNORMAL) Basic metabolic panel (01/02/2021 5:53 AM CDT) Sodium 143 135 - 145 mmol/L [facility] Potassium, pl 3.8 3.3 - 4.9 mmol/L [facility] Chloride 112(H) 97 - 110 mmol/L [facility] CO2 20(L) 22 - 32 mmol/L [facility] Anion gap 11 2 - 15 mmol/L [facility] BUN 19 8 - 25 mg/dL [facility] Creatinine 0.40(L) 0.60 - 1.10 mg/dL [facility] Glucose 118 70 - 199 mg/dL [facility] Comment: Interpretive Data Fasting glucose >/= 126 mg/dl is diagnostic for diabetes. ?? Fasting is defined as no caloric intake for at least 8 hours. Fasting glucose between 100 mg/dl to 125 mg/dl is diagnostic of prediabetes. In a patient with classic symptoms of hyperglycemia or hyperglycemic crisis, a random glucose >/= 200 mg/dl is diagnostic for diabetes. In the absence of unequivocal hyperglycemia, results should be confirmed by repeat testing. The classification and Diagnosis of Diabetes Diabetes Care 2017;40 (Suppl. 1):S11. Current interpretive data was last revised 2017. Calcium 9.0 8.5 - 10.3 mg/dL [facility] Blood 01/02/2021 5:53 AM CDT 01/02/2021 6:30 AM CDT us Spencer Bartholomew MD LAB BLOOD ORDERABLES Final Result [place] [id number] [facility] [place] [address] * (ABNORMAL) CBC with auto differential (01/02/2021 5:53 AM CDT) WBC 21.3(H) 3.8 - 9.9 K/cumm [facility] Hgb 10.5(L) 11.9 - 15.5 g/dL [facility] Hct 33.8(L) 35.6 - 45.5 % [facility] Plt 360 150 - 400 K/cumm [facility] MPV 9.6 9.1 - 12.3 fL [facility] RBC 4.64 3.90 - 5.20 M/cumm [facility] MCV 72.8(L) 81.3 - 96.4 fL [facility] MCH 22.6(L) 27.1 - 33.3 pg [facility] MCHC 31.1(L) 32.3 - 35.7 g/dL [facility] RDW CV 17.3(H) 11.1 - 14.9 % [facility] RDW SD 45.1 35.7 - 48.1 fL [facility] NRBC abs 0.00 0.00 - 0.01 K/cumm [facility] Blood 01/02/2021 5:53 AM CDT 01/02/2021 6:31 AM CDT Spencer Bartholomew MD LAB BLOOD ORDERABLES Final Result Performing Organization Address City/[facility]/ZIP Co de Phone Number [facility] [address] [facility] [email or web address] [place] [address] * eGFR (01/01/2021 3:42 AM CDT) eGFR 121 mL/min/1.7 3 m2 [facility] Comment: Interpretive Data Reference Interval Normal ?>/= 90 mL/min/1.73m2 Mildly decreased* ? 60 - 89 mL/min/1.73m2 Mildly to moderately decreased ?45 - 59 mL/min/1.73m2 Moderately to severely decreased ??30 - 44 mL/min/1.73m2 Severely decreased ?15 - 29 mL/min/1.73m2 Kidney Failure ?< 15 ??mL/min/1.73m2 *Relative to young adult level Estimated glomerular filtration rate is determined by the CKD-EPI equation recommended by the National Kidney Foundation (KDIGO 2012 Clinical Practice Guideline for the Evaluation and Management of Chronic Kidney Disease. Kidney Intnl Suppl Mar 2012;3:1). The CKD-EPI equation should not be used for patients with unstable renal function and has not been validated in children and those over 70. Current interpretive data was last reviewed 2020 Blood 01/01/2021 3:42 AM CDT 01/01/2021 4:14 AM CDT us Spencer Bartholomew MD LAB BLOOD ORDERABLES Final Result Performing Organization Address [facility]/ZIP Co de Phone Number [facility] [email or web address] [place] [address] * (ABNORMAL) Differential, auto (01/01/2021 3:42 AM CDT) Pathologist [facility] Neutrophil abs 23.5(H) 1.7 - 6.5 K/cumm [facility] Imm gran abs 0.2(H) 0.0 - 0.1 K/cumm [facility] Lymphocyte abs 1.0 0.8 - 3.3 K/cumm [facility] Monocyte abs 1.7(H) 0.2 - 0.8 K/cumm [facility] Eosinophil abs 0.0 0.0 - 0.5 K/cumm [facility] Basophil abs 0.0 0.0 - 0.1 K/cumm [facility] Neutrophil pct 88.8 % [facility] Comment: Interpretive Data Percent cell count reference ranges are not reported, since discordance with absolute values may lead to misinterpretation of CBC data. Current Interpretive Data was last revised on 2017. Imm gran pct 0.8 % [facility] Comment: Interpretive Data Percent cell count reference ranges are not reported, since discordance with absolute values may lead to misinterpretation of CBC data. Current Interpretive Data was last revised on 2017. Lymphocyte pct 3.9 % [facility] Comment: Interpretive Data Percent cell count reference ranges are not reported, since discordance with absolute values may lead to misinterpretation of CBC data. Current Interpretive Data was last revised on 2017. Monocyte pct 6.3 % [facility] Comment: Interpretive Data Percent cell count reference ranges are not reported, since discordance with absolute values may lead to misinterpretation of CBC data. Current Interpretive Data was last revised on 2017. Eosinophil pct 0.0 % [facility] Comment: Interpretive Data Percent cell count reference ranges are not reported, since discordance with absolute values may lead to misinterpretation of CBC data. Current Interpretive Data was last revised on 2017. Basophil pct 0.2 % [facility] Comment: Interpretive Data Percent cell count reference ranges are not reported, since discordance with absolute values may lead to misinterpretation of CBC data. Current Interpretive Data was last revised on 2017. Blood 01/01/2021 3:42 AM CDT 01/01/2021 4:14 AM CDT Spencer Bartholomew MD LAB BLOOD ORDERABLES Final Result [facility] [address] [place] [address] * (ABNORMAL) Basic metabolic panel (01/01/2021 3:42 AM CDT) Pathologist [facility] Sodium 142 135 - 145 mmol/L [facility] Potassium, pl 3.5 3.3 - 4.9 mmol/L [facility] Chloride 111(H) 97 - 110 mmol/L [facility] CO2 21(L) 22 - 32 mmol/L [facility] Anion gap 10 2 - 15 mmol/L [facility] BUN 17 8 - 25 mg/dL [facility] Creatinine 0.50(L) 0.60 - 1.10 mg/dL [facility] Glucose 154 70 - 199 mg/dL [facility] Comment: Interpretive Data Fasting glucose >/= 126 mg/dl is diagnostic for diabetes. ?? Fasting is defined as no caloric intake for at least 8 hours. Fasting glucose between 100 mg/dl to 125 mg/dl is diagnostic of prediabetes. In a patient with classic symptoms of hyperglycemia or hyperglycemic crisis, a random glucose >/= 200 mg/dl is diagnostic for diabetes. In the absence of unequivocal hyperglycemia, results should be confirmed by repeat testing. The classification and Diagnosis of Diabetes Diabetes Care 2017;40 (Suppl. 1):S11. Current interpretive data was last revised 2017. Calcium 9.2 8.5 - 10.3 mg/dL [facility] Blood 01/01/2021 3:42 AM CDT 01/01/2021 4:14 AM CDT Spencer Bartholomew MD LAB BLOOD ORDERABLES Final Result Performing Organization Address City/[facility]/ZIP Co de Phone Number [facility] [address] [facility] [place] [address] * (ABNORMAL) CBC with auto differential (01/01/2021 3:42 AM CDT) [facility] WBC 26.5(H) 3.8 - 9.9 K/cumm [facility] Hgb 10.4(L) 11.9 - 15.5 g/dL [facility] Hct 34.0(L) 35.6 - 45.5 % [facility] Plt 382 150 - 400 K/cumm [facility] MPV 9.6 9.1 - 12.3 fL [facility] RBC 4.76 3.90 - 5.20 M/cumm [facility] MCV 71.4(L) 81.3 - 96.4 fL [facility] MCH 21.8(L) 27.1 - 33.3 pg [facility] MCHC 30.6(L) 32.3 - 35.7 g/dL [facility] RDW CV 17.3(H) 11.1 - 14.9 % [facility] RDW SD 43.7 35.7 - 48.1 fL [facility] NRBC abs 0.00 0.00 - 0.01 K/cumm [facility] [facility] Blood 01/01/2021 3:42 AM CDT 01/01/2021 4:14 AM CDT us Spencer Bartholomew MD LAB BLOOD ORDERABLES Final Result [facility] [address] [facility] [place] [address] * eGFR (12/31/2020 12:07 PM CDT) eGFR 114 mL/min/1.7 3 m2 [facility] Comment: Interpretive Data Reference Interval Normal ?>/= 90 mL/min/1.73m2 Mildly decreased* ? 60 - 89 mL/min/1.73m2 Mildly to moderately decreased ?45 - 59 mL/min/1.73m2 Moderately to severely decreased ??30 - 44 mL/min/1.73m2 Severely decreased ?15 - 29 mL/min/1.73m2 Kidney Failure ?< 15 ??mL/min/1.73m2 *Relative to young adult level Estimated glomerular filtration rate is determined by the CKD-EPI equation recommended by the National Kidney Foundation (KDIGO 2012 Clinical Practice Guideline for the Evaluation and Management of Chronic Kidney Disease. Kidney Intnl Suppl Mar 2012;3:1). The CKD-EPI equation should not be used for patients with unstable renal function and has not been validated in children and those over 70. Current interpretive data was last reviewed 2020 Blood 12/31/2020 12:0 7 PM CDT 12/31/2020 12:55 PM CDT us Spencer Bartholomew MD LAB BLOOD ORDERABLES Final Result [facility] [address] [facility] [place] [address] * (ABNORMAL) Differential, auto (12/31/2020 12:07 PM CDT) Neutrophil abs 23.7(H) 1.7 - 6.5 K/cumm [facility] Imm gran abs 0.1 0.0 - 0.1 K/cumm [facility] Lymphocyte abs 0.5(L) 0.8 - 3.3 K/cumm [facility] Monocyte abs 0.3 0.2 - 0.8 K/cumm [facility] Eosinophil abs 0.0 0.0 - 0.5 K/cumm [facility] Basophil abs 0.0 0.0 - 0.1 K/cumm [facility] Neutrophil pct 96.2 % [facility] Comment: Interpretive Data Percent cell count reference ranges are not reported, since discordance with absolute values may lead to misinterpretation of CBC data. Current Interpretive Data was last revised on 2017. Imm gran pct 0.5 % [facility] Comment: Interpretive Data Percent cell count reference ranges are not reported, since discordance with absolute values may lead to misinterpretation of CBC data. Current Interpretive Data was last revised on 2017. Lymphocyte pct 2.0 % [facility] Comment: Interpretive Data Percent cell count reference ranges are not reported, since discordance with absolute values may lead to misinterpretation of CBC data. Current Interpretive Data was last revised on 2017. Monocyte pct 1.2 % [facility] Comment: Interpretive Data Percent cell count reference ranges are not reported, since discordance with absolute values may lead to misinterpretation of CBC data. Current Interpretive Data was last revised on 2017. Eosinophil pct 0.0 % [facility] Comment: Interpretive Data Percent cell count reference ranges are not reported, since discordance with absolute values may lead to misinterpretation of CBC data. Current Interpretive Data was last revised on 2017. Basophil pct 0.1 % [facility] Comment: Interpretive Data Percent cell count reference ranges are not reported, since discordance with absolute values may lead to misinterpretation of CBC data. Current Interpretive Data was last revised on 2017. Blood 12/31/2020 12:0 7 PM CDT 12/31/2020 12:55 PM CDT Spencer Bartholomew MD LAB BLOOD ORDERABLES Final Result [facility] [address] [facility] [place] [address] * (ABNORMAL) Comprehensive metabolic panel (12/31/2020 12:07 PM CDT) Sodium 140 135 - 145 mmol/L [facility] Potassium, pl 4.0 3.3 - 4.9 mmol/L [facility] Chloride 108 97 - 110 mmol/L [facility] CO2 19(L) 22 - 32 mmol/L [facility] Anion gap 13 2 - 15 mmol/L [facility] BUN 12 8 - 25 mg/dL [facility] Creatinine 0.60 0.60 - 1.10 mg/dL [facility] Glucose 180 70 - 199 mg/dL [facility] Comment: Interpretive Data Fasting glucose >/= 126 mg/dl is diagnostic for diabetes. ?? Fasting is defined as no caloric intake for at least 8 hours. Fasting glucose between 100 mg/dl to 125 mg/dl is diagnostic of prediabetes. In a patient with classic symptoms of hyperglycemia or hyperglycemic crisis, a random glucose >/= 200 mg/dl is diagnostic for diabetes. In the absence of unequivocal hyperglycemia, results should be confirmed by repeat testing. The classification and Diagnosis of Diabetes Diabetes Care 2017;40 (Suppl. 1):S11. Current interpretive data was last revised 2017. Calcium 9.1 8.5 - 10.3 mg/dL [facility] Bilirubin, total <0.2 0.1 - 1.2 mg/dL [facility] Protein, pl 7.1 6.5 - 8.5 g/dL [facility] Albumin 4.5 3.5 - 5.0 g/dL [facility] Alk phos 92 40 - 130 Units/L [facility] ALT 8 7 - 45 Units/L [facility] AST 9(L) 10 - 45 Units/L [facility] Blood 12/31/2020 12:0 7 PM CDT 12/31/2020 12:55 PM CDT us Spencer Bartholomew MD LAB BLOOD ORDERABLES Final Result [place] [id number] [facility] Department [place] [address] * (ABNORMAL) CBC with auto differential (12/31/2020 12:07 PM CDT) WBC 24.6(H) 3.8 - 9.9 K/cumm [facility] Hgb 11.5(L) 11.9 - 15.5 g/dL [facility] Hct 37.5 35.6 - 45.5 % [facility] Plt 416(H) 150 - 400 K/cumm [facility] MPV 9.6 9.1 - 12.3 fL [facility] RBC 5.05 3.90 - 5.20 M/cumm [facility] MCV 74.3(L) 81.3 - 96.4 fL [facility] MCH 22.8(L) 27.1 - 33.3 pg [facility] MCHC 30.7(L) 32.3 - 35.7 g/dL [facility] RDW CV 17.2(H) 11.1 - 14.9 % [facility] RDW SD 44.9 35.7 - 48.1 fL [facility] NRBC abs 0.00 0.00 - 0.01 K/cumm [facility] Blood 12/31/2020 12:0 7 PM CDT 12/31/2020 12:55 PM CDT Spencer Bartholomew MD LAB BLOOD ORDERABLES Final Result [facility] [address] [facility] [place] [address] * EEG (12/31/2020 9:11 AM CDT) Anatomical Region Laterality Modality Other Narrative 01/01/2021 2:45 PM CDT Roberto Angel MD ? 01/01/2021 ??2:48 PM Reason for exam: ??Witnessed seizures. ??Persistent aphasia. Technical: This is a digitally recorded electroencephalogram. It was just over 28 minutes long. ??The international 10-20 electrode placement system is used for scalp electrode placement. Eighteen channels of scalp EEG are recorded. One channel was used for EOG. Another channel was used for ECG. The data are stored digitally and reviewed in reformatted montages for optimal display. Background: ??9 hertz alpha activity was seen. Maximal over the posterior head region. These activities are symmetric on both sides. They attenuated with eye opening. Frequently seen were left frontotemporal discharges followed by focal delta range slowing in these leads. Description: ??Patient entered into periods of drowsiness and light sleep. Hyperventilation was performed without any additional abnormalities. Photic stimulation was performed without any additional abnormalities. ?? Impression: ??Abnormal EEG. ??Left frontotemporal discharges with focal slowing, suggests likely epileptogenicity from this region. No clinical seizures were seen. ??Correlation with clinical findings is needed. us Roberto Angel MD NEUROLOGY ORDERABLES Final Result * MRI Brain W WO Contrast (12/30/2020 3:46 PM CDT) Anatomical Region Laterality Modality Head and Neck N/A Magnetic Resonan ce 12/30/2020 3:47 PM CDT Narrative 12/30/2020 3:57 PM CDT EXAM DESCRIPTION: ?? MRI BRAIN W WO CONTRAST REASON FOR STUDY: ??Seizure yesterday in a patient with history of epilepsy and multiple sclerosis. TECHNIQUE: ??Multiplanar imaging includes noncontrast T1, T2, FLAIR, diffusion with ADC map and post contrast T1 sequences. Additional sequence(s) sensitive to blood products. ??Images stored on PACS. ?? CONTRAST TYPE/DOSE: ?? 13mL Dotarem) injected via ??IV site without reported incident COMPARISON: ?? CT head without contrast 12/29/2020; CT head without contrast 09/01/2006 (images without report); MRI brain without and with contrast 09/06/2006 (images without report) FINDINGS: CEREBRUM: ??No hemorrhage, edema, or mass effect. ??No abnormal enhancement. WHITE MATTER: ??There is marked confluent as well as patchy periventricular through juxtacortical diffuse bilateral cerebral as well as a patchy component of midbrain, pontine (with extension into the bilateral middle cerebral peduncles), and anterior left medulla, as well as diffuse variable callosal (maximal about the splenium) and pericallosal (consistent with Borja's fingers) T2/FLAIR hyperintense white matter disease, consistent with provided history of multiple sclerosis. ??Extensive corresponding T1 hypointensity with these lesions consistent with black holes. POSTERIOR FOSSA: ??As above. ??There is associated contrast enhancement with anterior left medullary demyelinating lesion consistent with active demyelinating lesion. DIFFUSION IMAGING: ??No restricted diffusion to suggest cytotoxic and/or intramyelinic edema as evidence of acute-subacute ischemia/infarct and/or active demyelinating lesions. EXTRAAXIAL SPACES: ??No hemorrhage. ??No mass or abnormal enhancement. BRAIN VOLUME: ??Mild cerebral volume loss without predilection, advanced for age. PITUITARY: ??Unremarkable. VASCULATURE: ??No flow disturbance evident. CALVARIUM: Unremarkable. ORBITS: ??No acute abnormality. ??Ocular lenses and globes normal in conformation and position. PARANASAL SINUSES AND MASTOIDS: ??Well-aerated with no fluid levels. No mucosa thickening. OTHER: ??No other significant finding. IMPRESSION: ?? 1. ??Marked supratentorial and infratentorial white matter disease as detailed above consistent with provided history of multiple sclerosis. 2. ??Anterior left medullary demyelinating lesion demonstrates corresponding contrast enhancement consistent with active demyelinating lesion. THIS IS AN ELECTRONICALLY VERIFIED FINAL REPORT 12/30/2020 3:57 PM - Electronically signed by Julius Monroe M.D. SUE D: ??12/30/2020 3:57 PM T: Report ID: [id number] Reading Location: ??[id number] Procedure Note Julius Monroe MD - 12/30/2020 EXAM DESCRIPTION: MRI BRAIN W WO CONTRAST REASON FOR STUDY: Seizure yesterday in a patient with history of epilepsyand multiple sclerosis. TECHNIQUE: Multiplanar imaging includes noncontrast T1, T2, FLAIR,diffusion with ADC map and post contrast T1 sequences. Additional sequence(s)sensitive to blood products. Images stored on PACS. CONTRAST TYPE/DOSE: 13mL Dotarem) injected via IV site without reported incident COMPARISON: CT head without contrast 12/29/2020; CT head withoutcontrast 09/01/2006 (images without report); MRI brain without and with contrast 09/06/2006 (images without report) FINDINGS: CEREBRUM: No hemorrhage, edema, or mass effect. No abnormal enhancement. WHITE MATTER: There is marked confluent as well as patchy periventricular through juxtacortical diffuse bilateral cerebral as well as a patchycomponent of midbrain, pontine (with extension into the bilateral middle cerebral peduncles), and anterior left medulla, as well as diffuse variablecallosal (maximal about the splenium) and pericallosal (consistent with Borja's fingers) T2/FLAIR hyperintense white matter disease, consistent withprovided history of multiple sclerosis. Extensive corresponding T1 hypointensitywith these lesions consistent with black holes. POSTERIOR FOSSA: As above. There is associated contrast enhancement with anterior left medullary demyelinating lesion consistent with active demyelinating lesion. DIFFUSION IMAGING: No restricted diffusion to suggest cytotoxic and/or intramyelinic edema as evidence of acute-subacute ischemia/infarct and/or active demyelinating lesions. EXTRAAXIAL SPACES: No hemorrhage. No mass or abnormal enhancement. BRAIN VOLUME: Mild cerebral volume loss without predilection, advancedfor age. PITUITARY: Unremarkable. VASCULATURE: No flow disturbance evident. CALVARIUM: Unremarkable. ORBITS: No acute abnormality. Ocular lenses and globes normal in conformation and position. PARANASAL SINUSES AND MASTOIDS: Well-aerated with no fluid levels. Nomucosa thickening. OTHER: No other significant finding. IMPRESSION: 1. Marked supratentorial and infratentorial white matter disease asdetailed above consistent with provided history of multiple sclerosis. 2. Anterior left medullary demyelinating lesion demonstratescorresponding contrast enhancement consistent with active demyelinating lesion. THIS IS AN ELECTRONICALLY VERIFIED FINAL REPORT 12/30/2020 3:57 PM - Electronically signed by Julius ROGERS T: Report ID: [id number] Reading Location: [place] [address] us Roberto Angel MD IMG MRI PROCEDURES F inal Result * [place] CRITICAL CARE ILL/INJURED PATIENT INIT 30-74 MIN (12/29/2020 8:00 PM CDT) Narrative Dalton Ashford MD - 12/29/2020 8:00 PM CDT Dalton Ashford MD ? 12/29/2020 ??8:59 PM Critical Care Performed by: Dalton Ashford MD Authorized by: Dalton Ashford MD Critical care provider statement: As reflected in the history, physical exam, orders, notes, and/or MDM, I was personally present while the patient was critically ill and provided critical care services for approximately 38 minutes, excluding time involved in separately billable procedures. ??Critical care was necessary to treat or prevent imminent or life-threatening deterioration of the following condition(s): ?? seizure ??Critical care was time spent by me providing the following: ? continuous telemetry, continuous pulse oximetry and serial bedside patient exams ?? frequent neurologic exams and initiation of anti-epileptic therapy ?? I provided emergent necessary critical care medicine services to this patient. I spent time discussing the management of this critically ill patient with consultants and the medical staff. I spent time documenting in the medical record. I admitted this patient to a continuous cardiac monitored bed. I ordered and reviewed test results and/or imaging studies. us Dalton Ashford MD IN CLINIC/BEDSIDE ORDERAB LES Final Result * Influenza A/B, RSV, and COVID-19 PCR Nasopharyngeal (12/29/2020 6:45 PM CDT) COVID-19 RNA Negative Negative [facility] Comment: Interpretive data: Synonyms for this test include: PCR and NAAT . ??This test is performed using the [employer] Xpert Xpress assay. This is a real-time RT-PCR test intended for the qualitative detection of nucleic acid from the SARS-CoV-2. This assay has been reviewed by the FDA for Emergency Use Authorization (EUA). The performance characteristics have been verified by the performing laboratory. Results must be considered in the clinical context and a negative result does not rule out infection. Interpretive data last revised April 22, 2020. Influenza A RNA Negative Negative [facility] Influenza B RNA Negative Negative [facility] RSV RNA Negative Negative [facility] Comment: Interpretive data: This test is performed using the [employer] Xpert Assay. This is a multiplex, real- time reverse transcriptase PCR assay that detects influenza A, influenza B, and respiratory syncytial virus RNA. This assay has been cleared by the [place] Food and Drug Administration, and its performance characteristics have been verified by the performing laboratory. ?? Interpretive data last revised 2020. Nasopharyngeal 12/29/2020 6: 45 PM CDT 12/29/2020 6:47 PM CDT Narrative [facility] - 12/29/2020 7:26 PM CDT Is the Patient experiencing symptoms consistent with COVID?->Unknown Reason for testing?->Bed placement or semi-private room Is the patient hospitalized?->Yes Is the patient admitted to an ICU?->No Does the patient currently work in a healthcare facility with direct patient contact?->Unknown Is the patient a resident of a congregate care or living setting?->Unknown Is the patient ?->No Known exposure to confirmed or suspected COVID-19 case?->No us Dalton Ashford MD LAB MICROBIOLOGY - GENERA L ORDERABLES Final Result [facility] [address] [facility] [place] [address] * CT Head WO Contrast (12/29/2020 3:43 PM CDT) Anatomical Region Laterality Modality Head and Neck N/A Computed Tomogra phy 12/29/2020 3:46 PM CDT Narrative 12/29/2020 3:49 PM CDT EXAM DESCRIPTION: ?? CT HEAD WO CONTRAST REASON FOR STUDY: ?? Seizure disorder, clinical change, seizure ??Patient to ED via POV having active seizure. Brought to ED Rm 4, NRB 02 at 15L placed on patient, IV access obtained at Ativan 4mg given at 1412. Seizure activity appears to have stopped after Ativan administration. ? No medical/surgical hx listed in pt chart ??(-)HCG ?? TECHNIQUE: ??Axial images acquired through the brain without intravenous contrast. ??Images stored on PACS. ?? Automated exposure control was used as a dose optimization technique for this examination. COMPARISON: ?? 09/06/2006. FINDINGS: BRAIN: ??No hemorrhage, edema or mass effect. No recent infarct. ??Normal white matter. ?? EXTRA-AXIAL SPACES: ??No fluid collections. No masses. CALVARIUM: ??No fracture. SINUSES/MASTOIDS: ??No fluid or mucosal thickening. ORBITS: ??No significant abnormality. OTHER: ??No other significant abnormality. IMPRESSION: ?? No acute intracranial findings. THIS IS AN ELECTRONICALLY VERIFIED FINAL REPORT 12/29/2020 3:49 PM - Electronically signed by Enoch Michele M.D. KN D: ??12/29/2020 3:49 PM T: Report ID: [id number] Reading Location: ??[id number] Procedure Note Enoch Michele MD - 12/29/2020 EXAM DESCRIPTION: CT HEAD WO CONTRAST REASON FOR STUDY: Seizure disorder, clinical change, seizure Patient toED via POV having active seizure. Brought to ED Rm 4, NRB 02 at 15L placed on patient, IV access obtained at Ativan 4mg given at 1412. Seizure activity appears to have stopped after Ativan administration. Nomedical/surgical hx listed in pt chart (-)HCG TECHNIQUE: Axial images acquired through the brain without intravenous contrast. Images stored on PACS. Automated exposure control was used asa dose optimization technique for this examination. COMPARISON: 09/06/2006. FINDINGS: BRAIN: No hemorrhage, edema or mass effect. No recent infarct. Normalwhite matter. EXTRA-AXIAL SPACES: No fluid collections. No masses. CALVARIUM: No fracture. SINUSES/MASTOIDS: No fluid or mucosal thickening. ORBITS: No significant abnormality. OTHER: No other significant abnormality. IMPRESSION: No acute intracranial findings. THIS IS AN ELECTRONICALLY VERIFIED FINAL REPORT 12/29/2020 3:49 PM - Electronically signed by Enoch BROWNE T: Report ID: [id number] Reading Location: [id number] us Dalton Ashford MD IMG CT PROCEDURES Final R esult * XR Chest 1 Vw Portable (12/29/2020 3:31 PM CDT) Anatomical Region Laterality Modality Body, Chest N/A Computed Radiogr aphy 12/29/2020 3:39 PM CDT Narrative 12/29/2020 3:41 PM CDT EXAM DESCRIPTION: ?? XR CHEST 1 VIEW REASON FOR STUDY: ?? Seizure today ?? TECHNIQUE: ?? Portable upright AP radiographic view of the chest acquired. COMPARISON: ?? None FINDINGS: LUNGS/PLEURA: ??No focal consolidation or pneumothorax. No pleural effusion. HEART/MEDIASTINUM: ??Heart size is normal. Normal mediastinal and hilar contours. HARDWARE/LINES/TUBES: ??None. BONES: ??No acute findings. OTHER: ??No other significant finding. IMPRESSION: ?? No acute cardiopulmonary disease. THIS IS AN ELECTRONICALLY VERIFIED FINAL REPORT 12/29/2020 3:41 PM - Electronically signed by Dejon ORTEGA D: ??12/29/2020 3:41 PM T: Report ID: [id number] Reading Location: ??[id number] Procedure Note Dejon Kenyon MD - 12/29/2020 EXAM DESCRIPTION: XR CHEST 1 VIEW REASON FOR STUDY: Seizure today TECHNIQUE: Portable upright AP radiographic view of the chestacquired. COMPARISON: None FINDINGS: LUNGS/PLEURA: No focal consolidation or pneumothorax. No pleuraleffusion. HEART/MEDIASTINUM: Heart size is normal. Normal mediastinal and hilar contours. HARDWARE/LINES/TUBES: None. BONES: No acute findings. OTHER: No other significant finding. IMPRESSION: No acute cardiopulmonary disease. THIS IS AN ELECTRONICALLY VERIFIED FINAL REPORT 12/29/2020 3:41 PM - Electronically signed by Dejon Kenyon M.D. RB T: Report ID: [id number] Reading Location: [place] [address] Dalton Ashford MD IMG XR PROCEDURES Final R esult * ECG 12 lead (12/29/2020 2:57 PM CDT) Ventricular Rate EKG/Min 102 BPM [facility] Atrial Rate 102 BPM [facility] TN-Interval (MSEC) 144 ms [facility] QRS-Interval (MSEC) 80 ms [facility] QT-Interval (MSEC) 350 ms [facility] QTc 456 ms [facility] P [place] 60 degrees [facility] R [place] 78 degrees [facility] T [place] 66 degrees [facility] Diagnosis Sinus tachycardia Otherwise normal ECG No previous ECGs available [facility] 12/29/2020 2:57 PM CDT 12/29/2020 3:51 PM CDT Dalton Ashford MD ECG ORDERABLES Final Res ult [facility] * Urine culture Urine (12/29/2020 2:52 PM CDT) Report Final Report: No growth [facility] Comment:Testing performed by : [facility], [address], [place]., [address] Urine 12/29/2020 2:52 PM CDT 12/29/2020 5:48 PM CDT Narrative [facility] - 12/30/2020 6:33 PM CDT Urine culture reflexed based upon urinalysis results. Testing performed by [facility] Microbiology Laboratory ([phone]) Dalton Ashford MD LAB MICROBIOLOGY - GENERA L ORDERABLES Final Result Performing Organization Address [facility] Co de Phone Number [address] [address] * (ABNORMAL) Urinalysis, microscopic only (12/29/2020 2:52 PM CDT) Pathologist [facility] WBC, ur 21-50(A) 0 - 5 /HPF [facility] RBC, ur 6-10(A) 0 - 2 /HPF [facility] Epithelial cells, squamous, ur 1-5 0 - 5 /HPF [facility] Bacteria, ur Trace(A) [facility] Mucous, ur Present(A) [facility] Hyaline casts, ur 6-10 0 - 10 /LPF [facility] Granular casts, ur 6-10(A) 0 - 0 /LPF [facility] Culture Reflex Comment Reflex to urine culture will be performed. [facility] Urine 12/29/2020 2:52 PM CDT 12/29/2020 2:57 PM CDT Dalton Ashford MD LAB URINE ORDERABLES Angela l Result Performing Organization Address [facility] de Phone Number [address] [address] * (ABNORMAL) Drugs of Abuse Screen, Urine without Confirmation (12/29/2020 2:52 PM CDT) Pathologist [facility] Amphetamine, ur Not Detected CutOff 500ng/mL [facility] Comment: Interpretive Data - Amphetamines: ??Samples containing greater than 500 ng/mL d-methamphetamine ??or other cross-reacting amphetamine compounds are reported as positive. ??Amphetamine immunoassays are subject to significant false positive rates due to cross-reactivity of non-amphetamine drugs. Current Interpretive Data was last reviewed 2018. Barbiturates, ur Not Detected CutOff 200ng/mL [facility] Comment: Interpretive Data - Barbiturates: ??Samples containing greater than 200 ng/mL secobarbital or other cross-reacting barbiturate compounds are reported as positive. ??False positive and false negative results are possible. Current Interpretive Data was last reviewed 2018. Benzodiazepines, ur Not Detected CutOff 100ng/mL [facility] Comment: Interpretive Data - Benzodiazepines: ??Samples containing greater than 100 ng/mL nordiazepam or other cross-reacting compounds are reported as positive. ?? False positive and false negative results are possible. ?? Current Interpretive Data was last reviewed 2018. Cannabinoids, ur Detected(A) CutOff 50 ng/mL [facility] Comment: Interpretive Data - Cannabinoids: ??Samples containing greater than 50 ng/mL delta-9 THC -COOH or other cross-reacting compounds are reported as positive. ??False positive and false negative results are possible. ?? Current Interpretive Data was last reviewed 2018. Cocaine, ur Not Detected CutOff 150ng/mL [facility] Comment: Interpretive Data - Cocaine: ??Samples containing greater than 150 ng/mL benzoylecgonine or other cross-reacting compounds are reported as positive. False positive and false negative results are possible. Current Interpretive Data was last reviewed 2018. Fentanyl, Ur Not Detected Cutoff 1 ng/mL [facility] Comment: Interpretive Data - Fentanyls: ??Samples containing greater than 1 ng/mL fentanyl or other cross-reacting fentanyl compounds are reported as detected. ??False positive and false negative results are possible. Current Interpretive Data was last reviewed 2018. Methadone, ur Not Detected CutOff 300ng/mL [facility] Comment: Interpretive Data - Methadone: ??Samples containing greater than 300 ng/mL d,l-methadone or other cross-reacting compounds are reported as positive. ??False positive and false negative results are possible. Current Interpretive Data was last reviewed 2018. Opiates, ur Not Detected CutOff 300ng/mL [facility] Comment: Interpretive Data - Opiates: ??Samples containing greater than 300 ng/mL morphine or other cross-reacting compounds are reported as positive. ??False positive and false negative results are possible. Current Interpretive Data was last reviewed 2018. Oxycodone, ur Not Detected CutOff 100ng/mL [facility] Comment: Interpretive Data - Oxycodone: ??Samples containing greater than 100 ng/mL oxycodone or other cross-reacting compounds are reported as positive. ??False positive and false negative results are possible. ?? Current Interpretive Data was last reviewed 2018. Phencyclidine, ur Not Detected CutOff 25 ng/mL [facility] Comment: Interpretive Data - Phencyclidine: ??Samples containing greater than 25 ng/mL phencyclidine or other cross-reacting compounds are reported as positive. ??False positive and false negative results are possible. ?? Current Interpretive Data was last reviewed 2018. Urine Creatinine 102 mg/dL [facility] Comment: Interpretive Data Urine Creatinine: < 10 mg/dL is extremely dilute = or > 10 but < 20 mg/dL is dilute = or > 20 mg/dL is normal Current Interpretive Data was last revised on 2017. Urine 12/29/2020 2:52 PM CDT 12/29/2020 2:59 PM CDT Narrative [facility] - 12/29/2020 3:28 PM CDT Drug of Abuse screening is performed by immunoassay for medical purposes only. ??This is not to be used for Pain Management purposes. us Dalton Ashford MD LAB URINE ORDERABLES Angela guillory Result [facility] [address] [facility] [place] [address] * (ABNORMAL) Urinalysis reflex to microscopic and culture Urine (12/29/2020 2:52 PM CDT) Color, ur Yellow Yellow [facility] Clarity, ur Cloudy(A) Clear [facility] Specific gravity, ur 1.018 1.003 - 1.030 [facility] pH, urine 5.0 [facility] Protein, ur ql 1+(A) Negative [facility] Glucose, ur ql Negative Negative [facility] Ketones, ur Negative Negative [facility] Bilirubin, ur Negative Negative [facility] Blood, ur Negative Negative [facility] Urobilinogen, ur <2.0 <2.0 mg/dL [facility] Nitrite, ur Negative Negative [facility] Leukocyte esterase, ur 3+(A) Negative [facility] UA reflex comment Reflex to microscopic UA will be performed. [facility] Urine 12/29/2020 2:52 PM CDT 12/29/2020 2:57 PM CDT Narrative [facility] - 12/29/2020 3:01 PM CDT ?? Urine pH is affected by diet, medications, systemic acid-base disturbances, and renal tubular function. ??pH may affect urinary stone formation. ??For example, urine pH below 6.0 may help reduce the tendency for calcium phosphate stones and pH greater than 6.0 may reduce the tendency for uric acid stone formation. Source: [employer]. Last revised 03-29-2017 us Dalton Ashford MD LAB MICROBIOLOGY - GENERA L ORDERABLES Final Result [facility] [address] [facility] Department [place] [address] * eGFR (12/29/2020 2:28 PM CDT) eGFR 92 mL/min/1.7 3 m2 [facility] Comment: Interpretive Data Reference Interval Normal ?>/= 90 mL/min/1.73m2 Mildly decreased* ? 60 - 89 mL/min/1.73m2 Mildly to moderately decreased ?45 - 59 mL/min/1.73m2 Moderately to severely decreased ??30 - 44 mL/min/1.73m2 Severely decreased ?15 - 29 mL/min/1.73m2 Kidney Failure ?< 15 ??mL/min/1.73m2 *Relative to young adult level Estimated glomerular filtration rate is determined by the CKD-EPI equation recommended by the National Kidney Foundation (KDIGO 2012 Clinical Practice Guideline for the Evaluation and Management of Chronic Kidney Disease. Kidney Intnl Suppl Mar 2012;3:1). The CKD-EPI equation should not be used for patients with unstable renal function and has not been validated in children and those over 70. Current interpretive data was last reviewed 2020 Blood 12/29/2020 2:28 PM CDT 12/29/2020 2:45 PM CDT us Dalton Ashford MD LAB BLOOD ORDERABLES Angela guillory Result [facility] [address] [facility] [place] [address] * (ABNORMAL) Differential, auto (12/29/2020 2:28 PM CDT) Neutrophil abs 16.5(H) 1.7 - 6.5 K/cumm [facility] Imm gran abs 0.2(H) 0.0 - 0.1 K/cumm [facility] Lymphocyte abs 3.2 0.8 - 3.3 K/cumm [facility] Monocyte abs 1.7(H) 0.2 - 0.8 K/cumm [facility] Eosinophil abs 0.5 0.0 - 0.5 K/cumm [facility] Basophil abs 0.2(H) 0.0 - 0.1 K/cumm [facility] Neutrophil pct 74.1 % [facility] Comment: Interpretive Data Percent cell count reference ranges are not reported, since discordance with absolute values may lead to misinterpretation of CBC data. Current Interpretive Data was last revised on 2017. Imm gran pct 0.8 % [facility] Comment: Interpretive Data Percent cell count reference ranges are not reported, since discordance with absolute values may lead to misinterpretation of CBC data. Current Interpretive Data was last revised on 2017. Lymphocyte pct 14.3 % [facility] Comment: Interpretive Data Percent cell count reference ranges are not reported, since discordance with absolute values may lead to misinterpretation of CBC data. Current Interpretive Data was last revised on 2017. Monocyte pct 7.7 % [facility] Comment: Interpretive Data Percent cell count reference ranges are not reported, since discordance with absolute values may lead to misinterpretation of CBC data. Current Interpretive Data was last revised on 2017. Eosinophil pct 2.4 % [facility] Comment: Interpretive Data Percent cell count reference ranges are not reported, since discordance with absolute values may lead to misinterpretation of CBC data. Current Interpretive Data was last revised on 2017. Basophil pct 0.7 % [facility] Comment: Interpretive Data Percent cell count reference ranges are not reported, since discordance with absolute values may lead to misinterpretation of CBC data. Current Interpretive Data was last revised on 2017. Blood 12/29/2020 2:28 PM CDT 12/29/2020 2:45 PM CDT Dalton Ashford MD LAB BLOOD ORDERABLES Angela l Result Performing Organization Address [facility] Co de Phone Number [facility] [address] [place] [address] * Zonisamide level (12/29/2020 2:28 PM CDT) Pathologist [facility] Zonisamide 20 10 - 40 mcg/mL [facility] Comment: ADDITIONAL INFORMATION This test was developed and its performance characteristics determined by [facility] in a manner consistent with CLIA requirements. This test has not been cleared or approved by the U.S. Food and Drug Administration. Test Performed by: [facility] [place] [address] Sewer And Drain Technician: Mykel Dodd M.D. Ph.D.; CLIA# [id number] Blood 12/29/2020 2:28 PM CDT 12/29/2020 2:46 PM CDT Dalton Ashford MD LAB BLOOD ORDERABLES Angela l Result Performing Organization Address City/[facility] Co de Phone Number [id number] [place] [address] * Protime-INR (12/29/2020 2:28 PM CDT) Pathologist [facility] PT 12.8 12.0 - 14.6 sec [facility] INR 1.0 [facility] Comment: Ref Range High Interpretive data Oral anticoagulant therapeutic ranges: Venous thromboembolism prophylaxis or treatment: 2.0-3.0 CARDIOLOGY Standard range: 2.0-3.0 High-intensity range: 2.5-3.5 Refer to indication-specific guidelines for appropriate target ranges for prosthetic heart valve replacement. Current interpretive data was last revised on 2019. Blood 12/29/2020 2:28 PM CDT 12/29/2020 2:45 PM CDT Dalton Ashford MD LAB BLOOD ORDERABLES Angela l Result Performing Organization Address [facility] de Phone Number [facility] [address] [facility] Department [place] [address] * hCG, blood, quantitative (12/29/2020 2:28 PM CDT) hCG, quant <0.1 0.0 - 5.0 IUnits/L [facility] Comment: Interpretive Data Non- Female premenopausal: < or = 5.0 IUnits/L Men: < 5.0 IUnits/L Weeks of Gestation ? Reference Interval ?? 3 to 6 ? 5.8-31,795 IUnits/L ?? 7 to 10 ? 3,697-186,977 IUnits/L ??12 to 15 ?27,832- 70,791 IUnits/L ??16 to 18 ? 9,040- 58,179 IUnits/L Current Interpretive Data was last revised on 2017. Blood 12/29/2020 2:28 PM CDT 12/29/2020 2:45 PM CDT Dalton Ashford MD LAB BLOOD ORDERABLES Edit ed Result - Final [address] Department [place] [address] * (ABNORMAL) Comprehensive metabolic panel (12/29/2020 2:28 PM CDT) Sodium 138 135 - 145 mmol/L [facility] Potassium, pl 4.3 3.3 - 4.9 mmol/L [facility] Chloride 103 97 - 110 mmol/L [facility] CO2 12(L) 22 - 32 mmol/L [facility] Anion gap 23(H) 2 - 15 mmol/L [facility] BUN 17 8 - 25 mg/dL [facility] Creatinine 0.80 0.60 - 1.10 mg/dL [facility] Glucose 119 70 - 199 mg/dL [facility] Comment: Interpretive Data Fasting glucose >/= 126 mg/dl is diagnostic for diabetes. ?? Fasting is defined as no caloric intake for at least 8 hours. Fasting glucose between 100 mg/dl to 125 mg/dl is diagnostic of prediabetes. In a patient with classic symptoms of hyperglycemia or hyperglycemic crisis, a random glucose >/= 200 mg/dl is diagnostic for diabetes. In the absence of unequivocal hyperglycemia, results should be confirmed by repeat testing. The classification and Diagnosis of Diabetes Diabetes Care 2017;40 (Suppl. 1):S11. Current interpretive data was last revised 2017. Calcium 9.8 8.5 - 10.3 mg/dL [facility] Bilirubin, total <0.2 0.1 - 1.2 mg/dL [facility] Protein, pl 7.8 6.5 - 8.5 g/dL [facility] Albumin 4.6 3.5 - 5.0 g/dL [facility] Alk phos 94 40 - 130 Units/L [facility] ALT 11 7 - 45 Units/L [facility] AST 14 10 - 45 Units/L [facility] Blood 12/29/2020 2:28 PM CDT 12/29/2020 2:45 PM CDT us Dalton Ashford MD LAB BLOOD ORDERABLES Angela l Result [place] [address] [facility] Department [place] [address] * (ABNORMAL) CBC with auto differential (12/29/2020 2:28 PM CDT) [facility] WBC 22.2(H) 3.8 - 9.9 K/cumm [facility] Hgb 12.0 11.9 - 15.5 g/dL [facility] Hct 41.3 35.6 - 45.5 % [facility] Plt 524(H) 150 - 400 K/cumm [facility] MPV 9.4 9.1 - 12.3 fL [facility] RBC 5.43(H) 3.90 - 5.20 M/cumm [facility] MCV 76.1(L) 81.3 - 96.4 fL [facility] MCH 22.1(L) 27.1 - 33.3 pg [facility] MCHC 29.1(L) 32.3 - 35.7 g/dL [facility] RDW CV 17.5(H) 11.1 - 14.9 % [facility] RDW SD 46.5 35.7 - 48.1 fL [facility] NRBC abs 0.00 0.00 - 0.01 K/cumm [facility] Blood 12/29/2020 2:28 PM CDT 12/29/2020 2:45 PM CDT Dalton Ashford MD LAB BLOOD ORDERABLES Angela l Result Performing Organization Address City/[facility]/ZIP Co de Phone Number [address] [email or web address] [address] * POCT glucose (12/29/2020 2:18 PM CDT) [facility] Glucose, POC 142 70 - 199 mg/dL [facility] Glucose comment 1 Use This Result [facility] Blood 12/29/2020 2:18 PM CDT 12/29/2020 2:18 PM CDT Dalton Ashford MD LAB POCT ORDERABLES - DEV ICE Final Result Performing Organization Address City/[facility]/ZIP Co de Phone Number [address] [place] [address] documented in this encounter Visit Diagnoses Diagnosis Seizure (HCC)- Primary Other convulsions Multiple sclerosis (HCC) Multiple sclerosis Nonintractable epilepsy without status epilepticus, unspecified epilepsy type (HCC) Seizure (HCC) Other convulsions Epilepsy (HCC) Unspecified epilepsy without mention of intractable epilepsy Multiple sclerosis (HCC) Multiple sclerosis Migraine Migraine, unspecified, without mention of intractable migraine without mention of status migrainosus Seizures (HCC) Other convulsions documented in this encounter Admitting Diagnoses Diagnosis Seizure (HCC) Other convulsions Seizures (HCC) Other convulsions documented in this encounter Administered Medications Inactive Administered Medications - up to 3 most recent administrations Medication Order MAR Action Action Date Dose Rate Site acetaminophen (TYLENOL) tablet 650 mg 650 mg, oral, Every 4 hours PRN, 1st line for pain, fever, fever greater than 38.3 C, Starting on Sun12/29/20 at 2014, Indications: Fever, PainIndications:Fever,Pain budesonide-formoteroL (SYMBICORT) 160-4.5 mcg/actuation inhaler 2 puff 2 puff, inhalation, 2 times daily (security incident response specialist), First dose on Sun12/29/20 at 2215, Rinse mouth with water after use. Do not swallow., I /authorizing provider attest that the patient meets the approved [facility] Use Criteria: Yes Given 01/02/2021 9:18 PM CDT 2 puffs Given 01/02/2021 8:34 AM CDT 2 puffs Given 01/01/2021 8:02 PM CDT 2 puffs cefTRIAXone (ROCEPHIN) 1,000 mg/10 mL in sterile water (premix) 1,000 mg 1,000 mg, intravenous, at 600 mL/hr, Administer over 1 Minutes, Once, On Sun12/29/20 at 1559, For 1 dose, Indications: Urinary Tract/Genitourinary InfectionIndications:Urinary Tract/Genitourinary Infection Given 12/29/2020 4:07 PM CDT 1,000 mg 6 00 mL/hr cefTRIAXone (ROCEPHIN) 1,000 mg/10 mL in sterile water (premix) 1,000 mg 1,000 mg, intravenous, at 600 mL/hr, Administer over 1 Minutes, Every 24 hours scheduled, First dose (after last reorder) on Sun12/30/20 at 0900, Indications: Urinary Tract/Genitourinary InfectionIndications:Urinary Tract/Genitourinary Infection Given 01/03/2021 9:52 AM CDT 1,000 mg 6 00 mL/hr Given 01/02/2021 9:49 AM CDT 1,000 mg 600 mL/hr Given 01/01/2021 8:56 AM CDT 1,000 mg 600 mL/hr enoxaparin (LOVENOX) syringe 40 mg 40 mg, subcutaneous, Daily (for enoxaparin), First dose on Sun12/29/20 at 2130, Indications: Deep Vein Thrombosis PreventionIndications:Deep Vein Thrombosis Prevention Given 01/02/2021 9:42 PM CDT 40 mg Right Upper Arm Given 01/01/2021 8:00 PM CDT 40 mg Ri ght Upper Arm Given 12/31/2020 8:57 PM CDT 40 mg Le ft Upper Arm escitalopram (LEXAPRO) tablet 20 mg 20 mg, oral, Daily, First dose on Sun12/30/20 at 0900 Given 01/03/2021 8:37 AM CDT 20 mg Given 01/02/2021 8:38 AM CDT 20 mg Given 01/01/2021 8:49 AM CDT 20 mg gadoterate meglumine (DOTAREM) 0.5 mmol/mL injection 13 mL 13 mL, intravenous, Once in imaging, contrast, Starting on Sun12/30/20 at 1536, For 1 dose Contrast Given 12/30/2020 3:46 PM CDT 13 mL labetaloL (NORMODYNE,TRANDATE) injection 20 mg 20 mg, intravenous, at 120 mL/hr, Administer over 2 Minutes, Every 6 hours PRN, high blood pressure, SBP above 190 or DBP above 110, Starting on Sun12/29/20 at 2014 lacosamide (VIMPAT) 100 mg in sodium chloride 0.9% 50 mL IVPB 100 mg, intravenous, at 120 mL/hr, Administer over 30 Minutes, Once, On Sun12/31/20 at 1500, For 1 dose New Bag 12/31/2020 3:29 PM CDT 100 mg 12 0 mL/hr lacosamide (VIMPAT) 100 mg in sodium chloride 0.9% 50 mL IVPB 100 mg, intravenous, at 120 mL/hr, Administer over 30 Minutes, Every 12 hours scheduled, First dose on Sun12/31/20 at 2100 01/02/2021 9:49 AM CDT 100 mg 120 mL/hr 01/01/2021 9:58 PM CDT 100 mg 120 mL/hr 01/01/2021 10:31 AM CDT 100 mg 120 mL/hr lacosamide (VIMPAT) 100 mg in sodium chloride 0.9% 50 mL IVPB 100 mg, intravenous, at 120 mL/hr, Administer over 30 Minutes, Once, On Sun01/02/21 at 2100, For 1 dose 01/02/2021 9:43 PM CDT 100 mg 120 mL/hr lacosamide (VIMPAT) tablet 100 mg 100 mg, oral, 2 times daily, First dose on Sun01/03/21 at 0900 Given 01/03/2021 8:36 AM CDT 100 mg levETIRAcetam (KEPPRA) 1,000 mg/100 mL in sodium chloride (premix) 1,000 mg 1,000 mg, intravenous, Administer over 15 Minutes, Every 12 hours scheduled, First dose (after last reorder) on Sun12/30/20 at 0900, Room temperature only 01/01/2021 8:57 AM CDT 1,000 mg 12/31/2020 9:01 PM CDT 1,000 mg 12/31/2020 10:27 AM CDT 1,000 mg levETIRAcetam (KEPPRA) 2,000 mg in sodium chloride 0.9% 100 mL IVPB 2,000 mg, intravenous, at 480 mL/hr, Administer over 15 Minutes, Once, On Sun12/29/20 at 1422, For 1 dose, Room temperature only 12/29/2020 2:34 PM CDT 2,000 mg 480 mL/hr LORazepam (ATIVAN) injection 1 mg 1 mg, intravenous, Every 6 hours PRN, seizures, Starting on Sun12/29/20 at 2200, For IV administration, dilute with equal volume of 0.9% sodium chloride. Do not exceed a rate of 2 mg/minute LORazepam (ATIVAN) injection 4 mg 4 mg, intravenous, Once, On Sun12/29/20 at 1422, For 1 dose, For IV administration, dilute with equal volume of 0.9% sodium chloride. Do not exceed a rate of 2 mg/minute Given 12/29/2020 2:33 PM CDT 4 mg methylPREDNISolone sodium succinate (SOLU-medrol) 1,000 mg in sodium chloride 0.9% 100 mL IVPB 1,000 mg, intravenous, at 232 mL/hr, Administer over 30 Minutes, Every 24 hours scheduled, First dose on Yaa 12/30/20 at 1700, For 3 doses New Bag 01/01/2021 9:39 AM CDT 1,000 mg 2 32 mL/hr New Bag 12/31/2020 9:43 AM CDT 1,000 mg 232 mL/hr New Bag 12/30/2020 5:27 PM CDT 1,000 mg 232 mL/hr ondansetron (ZOFRAN) injection 4 mg 4 mg, intravenous, Administer over 2 Minutes, Every 6 hours PRN, nausea, vomiting, Starting on Sun12/29/20 at 2013 oxyCODONE-acetaminophen (PERCOCET) 5-325 mg per tablet 1 tablet 1 tablet, oral, Every 4 hours PRN, other, Mod Pain, Starting on Sun12/29/20 at 2013, Indications: PainIndications:Pain predniSONE (DELTASONE) tablet 10 mg 10 mg, oral, Daily, First dose on Sun01/11/21 at 0900, For 3 doses predniSONE (DELTASONE) tablet 15 mg 15 mg, oral, Daily, First dose on Sun01/08/21 at 0900, For 3 doses predniSONE (DELTASONE) tablet 20 mg 20 mg, oral, Daily, First dose on Sun01/05/21 at 0900, For 3 doses predniSONE (DELTASONE) tablet 30 mg 30 mg, oral, Daily, First dose on Sun01/02/21 at 1045, For 3 doses Given 01/03/2021 8:36 AM CDT 30 mg Given 01/02/2021 12:40 PM CDT 30 mg predniSONE (DELTASONE) tablet 5 mg 5 mg, oral, Daily, First dose on Sun01/14/21 at 0900, For 3 doses sodium chloride 0.9% bolus 1,000 mL 1,000 mL, intravenous, at 1,000 mL/hr, Administer over 1 Hours, Once, On Sun12/29/20 at 1422, For 1 dose New Bag 12/29/2020 2:34 PM CDT 1,000 mL 1000 mL/hr zonisamide (ZONEGRAN) capsule 500 mg 500 mg, oral, Nightly, First dose on Sun12/29/20 at 2245 Given 01/02/2021 9:43 PM CDT 500 mg Given 01/01/2021 8:00 PM CDT 500 mg Given 12/31/2020 8:56 PM CDT 500 mg documented in this encounter Historical Medications * This list may reflect changes made after this encounter. baclofen (LIORESAL) 10 mg tablet TAKE 1 TABLET BY MOUTH TWICE DAILY. MAY CAUSE DROWSINESS 12/21/2020 escitalopram (LEXAPRO) 20 mg tablet Take 1 tablet (20 mg total) by mouth daily 12/25/2020 onabotulinumtoxi n A (BOTOX) 100 unit recon soln Inject 200 Units into the muscle as instructed every 3 (three) months Last admin: 07/22/2018 fluticasone propionate (FLONASE) 50 mcg/actuation nasal spray Administer 1 spray into each nostril daily as needed 11/29/2020 Symbicort 160-4.5 mcg/actuation inhaler Inhale 2 puffs 2 (two) times a day 12/29/2020 albuterol HFA (PROVENTIL HFA,VENTOLIN HFA,PROAIR HFA) 90 mcg/actuation inhaler Inhale 2 puffs every 6 (six) hours as needed 03/05/2014 butalbital-aceta minophen-caffein e (ESGIC) 50-325-40 mg per tablet Take 1 tablet by mouth every 4 (four) hours as needed 01/14/2018 zonisamide (ZONEGRAN) 100 mg capsule Take 5 capsules (500 mg total) by mouth nightly 12/25/2020 ocrelizumab (OCREVUS) 30 mg/mL solution Infuse 20 mL (600 mg total) into a venous catheter every 6 (six) months Last admin: ibuprofen (ADVIL,MOTRIN) 800 mg tablet Take 1 tablet (800 mg total) by mouth 2 (two) times a day as needed 10/30/2020 4 ARIPiprazole (ARIPiprazole) 300 mg IM injection Inject 300 mg into the muscle as instructed every 30 (thirty) days Last admin: 04/14/2019 4 hydrOXYzine (ATARAX) 25 mg tablet Take 1 tablet (25 mg total) by mouth 2 (two) times a day as needed for anxiety 4 added in this encounter Active and Recently Administered Medications Times are shown in CDT. Scheduled Medication Order 01/01/2021 01/02/2021 01/03/2021 budesonide-formoteroL (SYMBICORT) 160-4.5 mcg/actuation inhaler 2 puff 2 puff, inhalation, 2 times daily (security incident response specialist), First dose on Sun12/29/20 at 2215, Rinse mouth with water after use. Do not swallow., I /authorizing provider attest that the patient meets the approved [facility] Use Criteria: Yes 1807 (Not Given - Provider: Valery Bowers, MINE ANALYST - Reason: Other - Comment: not on my worklist)2001 (Given - Provider: Blake Galindo RRT) 0834 (Given - Provider: Valery Bowers, MINE ANALYST)2117 (Given - Provider: lBake Galindo RRT) 1253 (Not Given - Provider: Royal Leung, MINE ANALYST - Reason: Other - Comment: order did not show on board this AM) cefTRIAXone (ROCEPHIN) 1,000 mg/10 mL in sterile water (premix) 1,000 mg 1,000 mg, intravenous, at 600 mL/hr, Administer over 1 Minutes, Every 24 hours scheduled, First dose (after last reorder) on Yaa 12/30/20 at 0900, Indications: Urinary Tract/Genitourinary Infection 0856 (Given - Provider: Cindy Cantu RN) 0949 (Given - Provider: Sarah Mann RN) 0952 (Given - Provider: Rachna Sumner RN) enoxaparin (LOVENOX) syringe 40 mg 40 mg, subcutaneous, Daily (for enoxaparin), First dose on Sun12/29/20 at 2130, Indications: Deep Vein Thrombosis Prevention 1999 (Given - Provider: Randolph Jenkins RN) 2141 (Given - Provider: Andi Walls, YOVANA) escitalopram (LEXAPRO) tablet 20 mg 20 mg, oral, Daily, First dose on Sun12/30/20 at 0900 0849 (Given - Provider: Cindy Cantu RN) 0838 (Given - Provider: Cindy Cantu RN) 0837 (Given - Provider: Rachna Sumner RN) lacosamide (VIMPAT) 100 mg in sodium chloride 0.9% 50 mL IVPB (CANCELED) 100 mg, intravenous, at 120 mL/hr, Administer over 30 Minutes, Every 12 hours scheduled, First dose on Sun12/31/20 at 2100 1031 (New Bag - Provider: Cindy Cantu RN - Comment: awaited med from pharmacy)215 (New Bag - Provider: Randolph Jenkins RN) 0949 (New Bag - Provider: Sarah Mann RN) lacosamide (VIMPAT) 100 mg in sodium chloride 0.9% 50 mL IVPB (COMPLETED) 100 mg, intravenous, at 120 mL/hr, Administer over 30 Minutes, Once, On Sun01/02/21 at 2100, For 1 dose 2142 (New Bag - Provider: Andi Walls, YOVANA) lacosamide (VIMPAT) tablet 100 mg 100 mg, oral, 2 times daily, First dose on Sun01/03/21 at 0900 0836 (Given - Provider: Rachna Sumner RN) levETIRAcetam (KEPPRA) 1,000 mg/100 mL in sodium chloride (premix) 1,000 mg (CANCELED) 1,000 mg, intravenous, Administer over 15 Minutes, Every 12 hours scheduled, First dose (after last reorder) on Sun12/30/20 at 0900, Room temperature only 0857 (New Bag - Provider: Cindy Cantu RN) methylPREDNISolone sodium succinate (SOLU-medrol) 1,000 mg in sodium chloride 0.9% 100 mL IVPB (COMPLETED) 1,000 mg, intravenous, at 232 mL/hr, Administer over 30 Minutes, Every 24 hours scheduled, First dose on Sun12/30/20 at 1700, For 3 doses 0939 (New Bag - Provider: Sabi Adames, RN) predniSONE (DELTASONE) tablet 10 mg(Linked Group 1) 10 mg, oral, Daily, First dose on Sun01/11/21 at 0900, For 3 doses predniSONE (DELTASONE) tablet 15 mg(Linked Group 1) 15 mg, oral, Daily, First dose on Sun01/08/21 at 0900, For 3 doses predniSONE (DELTASONE) tablet 20 mg(Linked Group 1) 20 mg, oral, Daily, First dose on Sun01/05/21 at 0900, For 3 doses predniSONE (DELTASONE) tablet 30 mg(Linked Group 1) 30 mg, oral, Daily, First dose on Sun01/02/21 at 1045, For 3 doses 1240 (Given - Provider: Cidny Cantu, RN) 0836 (Given - Provider: Rachna Sumner, YOVANA) predniSONE (DELTASONE) tablet 5 mg(Linked Group 1) 5 mg, oral, Daily, First dose on Sun01/14/21 at 0900, For 3 doses zonisamide (ZONEGRAN) capsule 500 mg 500 mg, oral, Nightly, First dose on Sun12/29/20 at 2245 2000 (Given - Provider: Randolph Jenkins, YOVANA) 2143 (Given - Provider: Andi Walls, YOVANA) PRN Medication Order 01/01/2021 01/02/2021 01/03/2021 acetaminophen (TYLENOL) tablet 650 mg 650 mg, oral, Every 4 hours PRN, 1st line for pain, fever, fever greater than 38.3 C, Starting on Sun12/29/20 at 2014, Indications: Fever, Pain albuterol HFA (PROVENTIL HFA,VENTOLIN HFA,PROAIR HFA) 90 mcg/actuation inhaler 2 puff 2 puff, inhalation, Every 6 hours PRN (security incident response specialist), wheezing, shortness of breath, Starting on Sun12/29/20 at 220 hydrOXYzine (ATARAX) tablet 25 mg 25 mg, oral, 2 times daily PRN, anxiety, Starting on Sun12/29/20 at 2201 labetaloL (NORMODYNE,TRANDATE) injection 20 mg 20 mg, intravenous, at 120 mL/hr, Administer over 2 Minutes, Every 6 hours PRN, high blood pressure, SBP above 190 or DBP above 110, Starting on Sun12/29/20 at 2013 LORazepam (ATIVAN) injection 1 mg 1 mg, intravenous, Every 6 hours PRN, seizures, Starting on Sun12/29/20 at 2200, For IV administration, dilute with equal volume of 0.9% sodium chloride. Do not exceed a rate of 2 mg/minute ondansetron (ZOFRAN) injection 4 mg 4 mg, intravenous, Administer over 2 Minutes, Every 6 hours PRN, nausea, vomiting, Starting on Sun12/29/20 at 2013 oxyCODONE-acetaminophen (PERCOCET) 5-325 mg per tablet 1 tablet 1 tablet, oral, Every 4 hours PRN, other, Mod Pain, Starting on Sun12/29/20 at 2013, Indications: Pain Linked Groups Order Group 1: predniSONE (DELTASONE) tablet 30 mgJump to med 30 mg, oral, Daily, First dose on Sun01/02/21 at 1045, For 3 doses Followed by predniSONE (DELTASONE) tablet 20 mgJump to med 20 mg, oral, Daily, First dose on Sun01/05/21 at 0900, For 3 doses Followed by predniSONE (DELTASONE) tablet 15 mgJump to med 15 mg, oral, Daily, First dose on Sun01/08/21 at 0900, For 3 doses Followed by predniSONE (DELTASONE) tablet 10 mgJump to med 10 mg, oral, Daily, First dose on Sun01/11/21 at 0900, For 3 doses Followed by predniSONE (DELTASONE) tablet 5 mgJump to med 5 mg, oral, Daily, First dose on Sun01/14/21 at 0900, For 3 doses documented in this encounter Orders Medications Ordered That [place] ht Not Have Been Administered Count Last Ordered Date First Ordered Date predniSONE (DELTASONE) tablet 10 mg 1 01/02 predniSONE (DELTASONE) tablet 15 mg 1 01/02 predniSONE (DELTASONE) tablet 20 mg 1 01/02 predniSONE (DELTASONE) tablet 5 mg 1 2020 LORazepam (ATIVAN) injection 1 mg 2 021 12/29/2020 acetaminophen (TYLENOL) tablet 650 mg 1 albuterol HFA (PROVENTIL HFA ,VENTOLIN HFA,PROAIR HFA) 90 mcg/actuation inhaler 2 puff 1 12/29/2020 hydrOXYzine (ATARAX) tablet 25 mg 1 021 labetaloL (NORMODYNE,TRANDAT E) injection 20 mg 1 12/29/2020 ocrelizumab (OCREVUS) 30 mg/ mL injection 600 mg 1 12/29/2020 ondansetron (ZOFRAN) injection 4 mg 1 12/29 oxyCODONE-acetaminophen (PER COCET) 5-325 mg per tablet 1 tablet 1 12/29/2020 Consult Count Last Ordered Date First Orde red Date IP CONSULT TO NEUROLOGY 1 12/29/2020 Admission Count Last Ordered Date First Orde red Date ADMIT TO INPATIENT 2 12/30/2020 INITIATE OBSERVATION SERVICES 1 12/29/2020 Transfer Count Last Ordered Date First Orde red Date ED TO FLOOR BED REQUEST 1 12/29/2020 Discharge Count Last Ordered Date First Orde red Date DISCHARGE PATIENT 1 01/03/2021 documented in this encounter Additional Health Concerns Infection Onset Date Last Indicated Resolved Time COVID: Suspected 12/29/2020 12/29/2020 12/29/2020 7:28 PM CDT documented as of this encounter Care Teams Transportation Dispatcher Relationship Specialty Start Date End Date No, Physician PCP - General 12/29/20 07/11/23 documented as of this encounter
--- OUTSIDE RECORDS SUMMARY | 2024-03-22 16:51 | XMS_ITS | Encounter Summary ---
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
== END 2024-03-15 15:00 | disposition home or self-care (01) ==
PROVIDERS: Emergency Provider Physician Assistant; PCP Nurse Practitioner Obstetrics & Gynecology
DX: Z03.823 Encounter for observation for suspected inserted (injected) foreign body ruled out (principal); J45.909 Unspecified asthma, uncomplicated; G35 Multiple sclerosis; Z79.899 Other long term (current) drug therapy
CPT/HCPCS: 99282